=== PATIENT | female | born 1945 | race Caucasian/White ===

== ENCOUNTER → 2023-03-15 | Outpatient (REF) | payer MEDICARE, OTHER, SELFPAY ==
[2023-03-15 09:30] LABS: Hematocrit 38.6 % (37-47); Hemoglobin 13.2 g/dL (12.0-15.0); Mean Corp Hgb Conc 34.2 g/dL (32-36); Mean Corpuscular Hgb 33.5 pg (27.0-32.0); Mean Platelet Vol. 11.1 fl (6.2-12.0); Platelet Count 205 K/mm3 (150-450); RBC Distribution Width CV 13.2 % (11.6-14.6); Red Blood Count 3.94 M/mm3 (4.2-5.4); White Blood Count 6.9 K/mm3 (4.4-11.0)
[2023-03-15 10:20] LABS: Hemoglobin A1c 5.5 % (3.8-5.6)
[2023-03-15 10:37] LABS: Cholesterol 102 mg/dL (200); High Density Lipoprotein 45 mg/dL; Thyroid Stim Hormone (TSH) 2.96 uIU/mL (0.358-3.74); Triglycerides 82 mg/dL; Very Low Density Lipoprotein 16 mg/dL (5-40)
[2023-03-16 11:32] LABS: AST(SGOT) 18 U/L (15-37); Alanine Aminotransfer ALT/SGPT 19 U/L (13-56); Albumin, Serum 3.2 g/dL (3.2-5.0); Alkaline Phosphatase 104 U/L (45-117); Anion Gap 7 (5-15); BUN 26 mg/dL (7-18); Calcium,Total 9.3 mg/dL (8.5-10.1); Chloride 108 mmol/L (98-107); EST Glomerular Filtration Rate 42 mL/min (>60); Est Glom Filt Rate - Afr Amer 51 mL/min (>60); Globulin 3.2 g/dL (2.2-4.2); Glucose 113 mg/dL (74-106); Potassium 4.1 mmol/L (3.5-5.1); Protein, Total 6.4 g/dL (6.4-8.2); Sodium Level 140 mmol/L (136-145)
== END ==
LOC: OLS.SANC 07:55
PROVIDERS: Visit Provider Internal Medicine
DX: E11.9 Type 2 diabetes mellitus without complications (principal); E78.5 Hyperlipidemia, unspecified; E03.9 Hypothyroidism, unspecified; E55.9 Vitamin D deficiency, unspecified
CPT/HCPCS: 36415; 80053; 80061; 82306; 83036; 84443; 85027

== ENCOUNTER → 2023-03-23 | Outpatient (REF) | payer MEDICARE, MEDICAID, SELFPAY ==
[2023-03-23 08:21] LABS: Hematocrit 39.7 % (37-47); Hemoglobin 13.1 g/dL (12.0-15.0); Mean Corpuscular Hgb 33.2 pg (27.0-32.0); Mean Corpuscular Volume 100.8 fL (81-99); Mean Platelet Vol. 10.8 fl (6.2-12.0); Platelet Count 231 K/mm3 (150-450); RBC Distribution Width CV 13.4 % (11.6-14.6); RBC Distribution Width SD 49.6 fl (35.1-43.9); Red Blood Count 3.94 M/mm3 (4.2-5.4); White Blood Count 6.5 K/mm3 (4.4-11.0)
[2023-03-23 08:34] LABS: Vitamin D,25 Hydroxy 71.6 ng/mL
[2023-03-23 09:44] LABS: Hemoglobin A1c 5.6 % (3.8-5.6)
[2023-03-23 10:11] LABS: Cholesterol 126 mg/dL (200); High Density Lipoprotein 48 mg/dL; Thyroid Stim Hormone (TSH) 2.27 uIU/mL (0.358-3.74); Triglycerides 92 mg/dL; Very Low Density Lipoprotein 18 mg/dL (5-40)
== END ==
LOC: OLS.SANC 05:00
PROVIDERS: Visit Provider Internal Medicine
DX: N39.0 Urinary tract infection, site not specified (principal); F03.90 Unspecified dementia, unspecified severity, without behavioral disturbance, psychotic disturbance, mood disturbance, and anxiety; E11.9 Type 2 diabetes mellitus without complications; I10 Essential (primary) hypertension; E55.9 Vitamin D deficiency, unspecified; E03.9 Hypothyroidism, unspecified
CPT/HCPCS: 36415; 80061; 82306; 83036; 84443; 85027

== ENCOUNTER → 2023-03-25 | Outpatient (REF) | payer MEDICARE, OTHER, SELFPAY ==
[2023-03-25 09:07] LABS: Hematocrit 38.3 % (37-47); Hemoglobin 12.8 g/dL (12.0-15.0); Mean Corp Hgb Conc 33.4 g/dL (32-36); Mean Corpuscular Hgb 34.2 pg (27.0-32.0); Mean Corpuscular Volume 102.4 fL (81-99); Mean Platelet Vol. 11.2 fl (6.2-12.0); Platelet Count 211 K/mm3 (150-450); RBC Distribution Width CV 13.7 % (11.6-14.6); RBC Distribution Width SD 51.6 fl (35.1-43.9); Red Blood Count 3.74 M/mm3 (4.2-5.4); White Blood Count 6.3 K/mm3 (4.4-11.0)
[2023-03-25 09:21] LABS: Vitamin D,25 Hydroxy 71.1 ng/mL
[2023-03-25 09:27] LABS: Cholesterol 106 mg/dL (200); High Density Lipoprotein 40 mg/dL; Thyroid Stim Hormone (TSH) 2.32 uIU/mL (0.358-3.74); Triglycerides 85 mg/dL; Very Low Density Lipoprotein 17 mg/dL (5-40)
[2023-03-25 09:49] LABS: Hemoglobin A1c 5.4 % (3.8-5.6)
[2023-03-26 09:34] LABS: Mucous, Urine 0 SEEN /hpf (<or=2+)
[2023-03-26 10:37] LABS: Color, Urine Yellow (Yellow); Glucose, Dipstick Normal (Normal); Ketone-Dipstick Negative (Negative); Leukocyte Esterase-Dipstick 500 /ul (Negative); Nitrite-Dipstick Negative (Negative); Occult Blood-Urine 10 /ul (Negative); Protein-Dipstick Negative (Negative); Specific Gravity, Urine 1.015 (1.002-1.030); Urine Bilirubin Dipstick Negative (Negative); Urine Clarity Sl. Cloudy (Clear); Urine Urobilinogen 4 mg/dl (Normal)
[2023-03-26 10:49] LABS: Bacteria 2+ /hpf (None Seen); Red Blood Cells-Urine 0-5 SEEN /hpf (0-5); Squamous Epithelial Cells - UA 5-10 SEEN /hpf (5-10); Transitional Epithelial - Ur 0-5 SEEN /hpf (0-5); White Blood Cells 25-50 SEEN /hpf (0-5)
== END ==
LOC: OLS.SANC 05:00
PROVIDERS: Visit Provider Internal Medicine
DX: N39.0 Urinary tract infection, site not specified (principal); E11.22 Type 2 diabetes mellitus with diabetic chronic kidney disease; I12.9 Hypertensive chronic kidney disease with stage 1 through stage 4 chronic kidney disease, or unspecified chronic kidney disease; E78.5 Hyperlipidemia, unspecified; N18.30 Chronic kidney disease, stage 3 unspecified; E55.9 Vitamin D deficiency, unspecified; Z79.899 Other long term (current) drug therapy
CPT/HCPCS: 36415; 80061; 81001; 82306; 83036; 84443; 85027; 87077; 87086; 87088; 87186

== ENCOUNTER → 2023-04-12 | Outpatient (REF) | payer MEDICARE, MEDICAID, SELFPAY ==
[2023-04-12 13:33] LABS: Anion Gap 8 (5-15); BUN 26 mg/dL (7-18); BUN/Creat Ratio 14.8 RATIO (10-20); Calcium,Total 9.4 mg/dL (8.5-10.1); Chloride 108 mmol/L (98-107); Creatinine, Serum 1.76 mg/dL (0.55-1.02); EST Glomerular Filtration Rate 30 mL/min (>60); Est Glom Filt Rate - Afr Amer 36 mL/min (>60); Glucose 124 mg/dL (74-106); Potassium 3.9 mmol/L (3.5-5.1); Sodium Level 141 mmol/L (136-145)
== END ==
LOC: OLS.SANC 05:00
PROVIDERS: Visit Provider Internal Medicine
DX: E11.9 Type 2 diabetes mellitus without complications (principal); E78.5 Hyperlipidemia, unspecified; E03.9 Hypothyroidism, unspecified
CPT/HCPCS: 36415; 80048

== ENCOUNTER → 2023-04-21 | Outpatient (REF) | payer MEDICARE, MEDICAID, SELFPAY ==
[2023-04-21 09:17] LABS: Hematocrit 41.7 % (37-47); Hemoglobin 13.9 g/dL (12.0-15.0); Mean Corp Hgb Conc 33.3 g/dL (32-36); Mean Platelet Vol. 11.3 fl (6.2-12.0); Platelet Count 224 K/mm3 (150-450); RBC Distribution Width CV 13.6 % (11.6-14.6); RBC Distribution Width SD 49.3 fl (35.1-43.9); Red Blood Count 4.21 M/mm3 (4.2-5.4); White Blood Count 6.9 K/mm3 (4.4-11.0)
[2023-04-21 09:38] LABS: Anion Gap 7 (5-15); BUN 26 mg/dL (7-18); BUN/Creat Ratio 19.1 RATIO (10-20); Calcium,Total 9.5 mg/dL (8.5-10.1); Chloride 107 mmol/L (98-107); Creatinine, Serum 1.36 mg/dL (0.55-1.02); EST Glomerular Filtration Rate 40 mL/min (>60); Est Glom Filt Rate - Afr Amer 48 mL/min (>60); Glucose 133 mg/dL (74-106); Potassium 3.9 mmol/L (3.5-5.1); Sodium Level 139 mmol/L (136-145)
== END ==
LOC: OLS.SANC 05:00
PROVIDERS: Visit Provider Internal Medicine
DX: E11.9 Type 2 diabetes mellitus without complications (principal); E78.5 Hyperlipidemia, unspecified; E03.9 Hypothyroidism, unspecified
CPT/HCPCS: 36415; 80048; 85027

== ENCOUNTER → 2023-04-22 | Outpatient (REF) | payer MEDICARE, MEDICAID, SELFPAY ==
[2023-04-22 09:34] LABS: Hematocrit 38.3 % (37-47); Hemoglobin 12.7 g/dL (12.0-15.0); Mean Corp Hgb Conc 33.2 g/dL (32-36); Mean Corpuscular Hgb 33.1 pg (27.0-32.0); Mean Corpuscular Volume 99.7 fL (81-99); Mean Platelet Vol. 11.2 fl (6.2-12.0); Platelet Count 223 K/mm3 (150-450); RBC Distribution Width CV 13.8 % (11.6-14.6); RBC Distribution Width SD 50.5 fl (35.1-43.9); Red Blood Count 3.84 M/mm3 (4.2-5.4); White Blood Count 6.3 K/mm3 (4.4-11.0)
[2023-04-22 09:53] LABS: Anion Gap 5 (5-15); BUN 27 mg/dL (7-18); BUN/Creat Ratio 20.1 RATIO (10-20); Chloride 110 mmol/L (98-107); Creatinine, Serum 1.34 mg/dL (0.55-1.02); EST Glomerular Filtration Rate 41 mL/min (>60); Est Glom Filt Rate - Afr Amer 49 mL/min (>60); Glucose 145 mg/dL (74-106); Potassium 3.8 mmol/L (3.5-5.1); Sodium Level 141 mmol/L (136-145)
== END ==
LOC: OLS.SANC 05:00
PROVIDERS: Visit Provider Internal Medicine
DX: Z79.899 Other long term (current) drug therapy (principal)
CPT/HCPCS: 36415; 80048; 85027

== ENCOUNTER → 2023-05-13 | Outpatient (REF) | payer MEDICARE, MEDICAID, SELFPAY ==
[2023-05-13 08:36] LABS: Anion Gap 8 (5-15); BUN 36 mg/dL (7-18); Calcium,Total 9.2 mg/dL (8.5-10.1); Chloride 108 mmol/L (98-107); EST Glomerular Filtration Rate 36 mL/min (>60); Est Glom Filt Rate - Afr Amer 43 mL/min (>60); Glucose 127 mg/dL (74-106); Potassium 3.7 mmol/L (3.5-5.1); Sodium Level 141 mmol/L (136-145)
== END ==
LOC: OLS.SANC 05:00
PROVIDERS: Visit Provider Internal Medicine
DX: E11.9 Type 2 diabetes mellitus without complications (principal); I10 Essential (primary) hypertension; E78.5 Hyperlipidemia, unspecified; E03.9 Hypothyroidism, unspecified
CPT/HCPCS: 36415; 80048

== ENCOUNTER → 2023-05-20 | Outpatient (REF) | payer MEDICARE, MEDICAID, SELFPAY ==
[2023-05-20 08:59] LABS: Hematocrit 43.1 % (37-47); Hemoglobin 14.2 g/dL (12.0-15.0); Mean Corp Hgb Conc 32.9 g/dL (32-36); Mean Corpuscular Hgb 32.3 pg (27.0-32.0); Mean Platelet Vol. 11.2 fl (6.2-12.0); Platelet Count 226 K/mm3 (150-450); RBC Distribution Width CV 13.4 % (11.6-14.6); RBC Distribution Width SD 48.8 fl (35.1-43.9); White Blood Count 6.4 K/mm3 (4.4-11.0)
[2023-05-20 09:11] LABS: Anion Gap 7 (5-15); BUN 31 mg/dL (7-18); BUN/Creat Ratio 20.9 RATIO (10-20); Calcium,Total 9.1 mg/dL (8.5-10.1); Chloride 111 mmol/L (98-107); Creatinine, Serum 1.48 mg/dL (0.55-1.02); EST Glomerular Filtration Rate 36 mL/min (>60); Est Glom Filt Rate - Afr Amer 44 mL/min (>60); Glucose 121 mg/dL (74-106); Sodium Level 144 mmol/L (136-145)
== END ==
LOC: OLS.SANC 05:00
PROVIDERS: Visit Provider Internal Medicine
DX: E11.9 Type 2 diabetes mellitus without complications (principal); Z79.899 Other long term (current) drug therapy
CPT/HCPCS: 36415; 80048; 85027

== ENCOUNTER → 2023-06-02 | Outpatient (REF) | payer MEDICARE, MEDICAID, SELFPAY ==
[2023-06-02 08:58] LABS: Hematocrit 38.8 % (37-47); Mean Corp Hgb Conc 33.5 g/dL (32-36); Mean Corpuscular Hgb 32.7 pg (27.0-32.0); Mean Corpuscular Volume 97.5 fL (81-99); Mean Platelet Vol. 11.1 fl (6.2-12.0); Platelet Count 224 K/mm3 (150-450); RBC Distribution Width CV 13.7 % (11.6-14.6); RBC Distribution Width SD 49.2 fl (35.1-43.9); Red Blood Count 3.98 M/mm3 (4.2-5.4); White Blood Count 5.6 K/mm3 (4.4-11.0)
[2023-06-02 09:18] LABS: Anion Gap 4 (5-15); BUN 23 mg/dL (7-18); BUN/Creat Ratio 16.7 RATIO (10-20); Calcium,Total 8.9 mg/dL (8.5-10.1); Chloride 110 mmol/L (98-107); Creatinine, Serum 1.38 mg/dL (0.55-1.02); EST Glomerular Filtration Rate 39 mL/min (>60); Est Glom Filt Rate - Afr Amer 47 mL/min (>60); Glucose 132 mg/dL (74-106); Potassium 3.6 mmol/L (3.5-5.1); Sodium Level 140 mmol/L (136-145)
== END ==
LOC: OLS.SANC 06:24
PROVIDERS: Visit Provider Internal Medicine
DX: I10 Essential (primary) hypertension (principal); Z79.899 Other long term (current) drug therapy
CPT/HCPCS: 36415; 80048; 85027

== ENCOUNTER → 2023-06-21 | Outpatient (REF) | payer MEDICARE, MEDICAID, SELFPAY ==
[2023-06-21 08:16] LABS: Hematocrit 38.5 % (37-47); Hemoglobin 12.6 g/dL (12.0-15.0); Mean Corp Hgb Conc 32.7 g/dL (32-36); Mean Corpuscular Hgb 32.1 pg (27.0-32.0); Mean Platelet Vol. 11.2 fl (6.2-12.0); Platelet Count 207 K/mm3 (150-450); RBC Distribution Width CV 13.6 % (11.6-14.6); RBC Distribution Width SD 49.9 fl (35.1-43.9); Red Blood Count 3.93 M/mm3 (4.2-5.4); White Blood Count 5.7 K/mm3 (4.4-11.0)
[2023-06-21 10:07] LABS: Anion Gap 8 (5-15); BUN 26 mg/dL (7-18); BUN/Creat Ratio 19.3 RATIO (10-20); Calcium,Total 8.7 mg/dL (8.5-10.1); Chloride 111 mmol/L (98-107); Creatinine, Serum 1.35 mg/dL (0.55-1.02); EST Glomerular Filtration Rate 40 mL/min (>60); Est Glom Filt Rate - Afr Amer 49 mL/min (>60); Glucose 124 mg/dL (74-106); Sodium Level 142 mmol/L (136-145)
== END ==
LOC: OLS.SANC 05:00
PROVIDERS: Visit Provider Internal Medicine
DX: E11.22 Type 2 diabetes mellitus with diabetic chronic kidney disease (principal); I12.9 Hypertensive chronic kidney disease with stage 1 through stage 4 chronic kidney disease, or unspecified chronic kidney disease; N18.9 Chronic kidney disease, unspecified; E78.5 Hyperlipidemia, unspecified; E03.9 Hypothyroidism, unspecified
CPT/HCPCS: 36415; 80048; 85027

== ENCOUNTER → 2023-06-29 | Outpatient (REF) | payer MEDICARE, MEDICAID, SELFPAY ==
[2023-06-29 08:13] LABS: Hematocrit 41.5 % (37-47); Hemoglobin 13.7 g/dL (12.0-15.0); Mean Corpuscular Hgb 32.3 pg (27.0-32.0); Mean Corpuscular Volume 97.9 fL (81-99); Mean Platelet Vol. 11.4 fl (6.2-12.0); Platelet Count 215 K/mm3 (150-450); RBC Distribution Width CV 13.7 % (11.6-14.6); RBC Distribution Width SD 49.7 fl (35.1-43.9); Red Blood Count 4.24 M/mm3 (4.2-5.4); White Blood Count 6.8 K/mm3 (4.4-11.0)
[2023-06-29 08:19] LABS: Anion Gap 4 (5-15); BUN 32 mg/dL (7-18); BUN/Creat Ratio 22.7 RATIO (10-20); Calcium,Total 9.3 mg/dL (8.5-10.1); Chloride 110 mmol/L (98-107); Creatinine, Serum 1.41 mg/dL (0.55-1.02); EST Glomerular Filtration Rate 38 mL/min (>60); Est Glom Filt Rate - Afr Amer 46 mL/min (>60); Glucose 141 mg/dL (74-106); Potassium 3.9 mmol/L (3.5-5.1); Sodium Level 141 mmol/L (136-145)
== END ==
LOC: OLS.SANC 05:00
PROVIDERS: Visit Provider Internal Medicine
DX: E11.9 Type 2 diabetes mellitus without complications (principal); E78.5 Hyperlipidemia, unspecified; I10 Essential (primary) hypertension
CPT/HCPCS: 36415; 80048; 85027

== ENCOUNTER → 2023-07-13 | Outpatient (REF) | payer MEDICARE, MEDICAID, SELFPAY ==
[2023-07-13 09:10] LABS: Anion Gap 5 (5-15); BUN 27 mg/dL (7-18); BUN/Creat Ratio 19.7 RATIO (10-20); Calcium,Total 9.7 mg/dL (8.5-10.1); Chloride 110 mmol/L (98-107); Creatinine, Serum 1.37 mg/dL (0.55-1.02); EST Glomerular Filtration Rate 40 mL/min (>60); Est Glom Filt Rate - Afr Amer 48 mL/min (>60); Glucose 134 mg/dL (74-106); Sodium Level 141 mmol/L (136-145)
== END ==
LOC: OLS.SANC 05:00
PROVIDERS: Visit Provider Internal Medicine
DX: F03.90 Unspecified dementia, unspecified severity, without behavioral disturbance, psychotic disturbance, mood disturbance, and anxiety (principal); E11.9 Type 2 diabetes mellitus without complications; Z79.899 Other long term (current) drug therapy
CPT/HCPCS: 36415; 80048

== ENCOUNTER → 2023-08-02 | Outpatient (REF) | payer MEDICARE, MEDICAID, SELFPAY ==
[2023-08-02 09:50] LABS: Hematocrit 37.5 % (37-47); Hemoglobin 12.3 g/dL (12.0-15.0); Mean Corp Hgb Conc 32.8 g/dL (32-36); Mean Corpuscular Volume 97.7 fL (81-99); Platelet Count 217 K/mm3 (150-450); RBC Distribution Width CV 13.5 % (11.6-14.6); RBC Distribution Width SD 48.5 fl (35.1-43.9); Red Blood Count 3.84 M/mm3 (4.2-5.4); White Blood Count 5.1 K/mm3 (4.4-11.0)
[2023-08-02 10:01] LABS: Anion Gap 4 (5-15); BUN 26 mg/dL (7-18); BUN/Creat Ratio 17.9 RATIO (10-20); Calcium,Total 9.1 mg/dL (8.5-10.1); Chloride 112 mmol/L (98-107); Creatinine, Serum 1.45 mg/dL (0.55-1.02); EST Glomerular Filtration Rate 37 mL/min (>60); Est Glom Filt Rate - Afr Amer 45 mL/min (>60); Glucose 126 mg/dL (74-106); Potassium 3.7 mmol/L (3.5-5.1); Sodium Level 141 mmol/L (136-145)
== END ==
LOC: OLS.SANC 05:00
PROVIDERS: Visit Provider Internal Medicine
DX: E11.9 Type 2 diabetes mellitus without complications (principal); I10 Essential (primary) hypertension; E78.5 Hyperlipidemia, unspecified; E03.9 Hypothyroidism, unspecified
CPT/HCPCS: 36415; 80048; 85027

== ENCOUNTER → 2023-08-13 | Outpatient (REF) | payer MEDICARE, MEDICAID, SELFPAY ==
[2023-08-13 07:56] LABS: Hematocrit 40.4 % (37-47); Hemoglobin 13.2 g/dL (12.0-15.0); Mean Corp Hgb Conc 32.7 g/dL (32-36); Mean Corpuscular Hgb 32.2 pg (27.0-32.0); Mean Corpuscular Volume 98.5 fL (81-99); Platelet Count 230 K/mm3 (150-450); RBC Distribution Width CV 13.3 % (11.6-14.6); RBC Distribution Width SD 48.2 fl (35.1-43.9); White Blood Count 6.3 K/mm3 (4.4-11.0)
[2023-08-13 08:02] LABS: Anion Gap 4 (5-15); BUN 34 mg/dL (7-18); BUN/Creat Ratio 22.4 RATIO (10-20); Calcium,Total 8.9 mg/dL (8.5-10.1); Chloride 108 mmol/L (98-107); Creatinine, Serum 1.52 mg/dL (0.55-1.02); EST Glomerular Filtration Rate 35 mL/min (>60); Est Glom Filt Rate - Afr Amer 43 mL/min (>60); Glucose 122 mg/dL (74-106); Potassium 3.6 mmol/L (3.5-5.1); Sodium Level 141 mmol/L (136-145)
== END ==
LOC: OLS.SANC 05:00
PROVIDERS: Visit Provider Internal Medicine
DX: E11.9 Type 2 diabetes mellitus without complications (principal); E78.5 Hyperlipidemia, unspecified
CPT/HCPCS: 36415; 80048; 85027

== ENCOUNTER → 2023-09-10 | Outpatient (REF) | payer MEDICARE, MEDICAID, SELFPAY ==
[2023-09-10 09:26] LABS: Hematocrit 39.2 % (37-47); Hemoglobin 13.4 g/dL (12.0-15.0); Mean Corp Hgb Conc 34.2 g/dL (32-36); Mean Corpuscular Hgb 32.9 pg (27.0-32.0); Mean Corpuscular Volume 96.3 fL (81-99); Mean Platelet Vol. 10.8 fl (6.2-12.0); Platelet Count 219 K/mm3 (150-450); RBC Distribution Width CV 12.9 % (11.6-14.6); RBC Distribution Width SD 46.3 fl (35.1-43.9); Red Blood Count 4.07 M/mm3 (4.2-5.4); White Blood Count 5.3 K/mm3 (4.4-11.0)
[2023-09-10 09:41] LABS: Anion Gap 7 (5-15); BUN 32 mg/dL (7-18); BUN/Creat Ratio 23.4 RATIO (10-20); Calcium,Total 9.4 mg/dL (8.5-10.1); Chloride 107 mmol/L (98-107); Creatinine, Serum 1.37 mg/dL (0.55-1.02); EST Glomerular Filtration Rate 40 mL/min (>60); Est Glom Filt Rate - Afr Amer 48 mL/min (>60); Glucose 166 mg/dL (74-106); Potassium 3.7 mmol/L (3.5-5.1); Sodium Level 140 mmol/L (136-145)
== END ==
LOC: OLS.SANC 05:00
PROVIDERS: Visit Provider Internal Medicine
DX: E11.9 Type 2 diabetes mellitus without complications (principal); I10 Essential (primary) hypertension; E03.9 Hypothyroidism, unspecified
CPT/HCPCS: 36415; 80048; 85027

== ENCOUNTER → 2023-09-13 | Outpatient (REF) | payer MEDICARE, MEDICAID, SELFPAY ==
[2023-09-13 09:20] LABS: Hematocrit 37.8 % (37-47); Hemoglobin 12.6 g/dL (12.0-15.0); Mean Corp Hgb Conc 33.3 g/dL (32-36); Mean Corpuscular Hgb 32.4 pg (27.0-32.0); Mean Corpuscular Volume 97.2 fL (81-99); Platelet Count 214 K/mm3 (150-450); RBC Distribution Width CV 13.1 % (11.6-14.6); RBC Distribution Width SD 46.4 fl (35.1-43.9); Red Blood Count 3.89 M/mm3 (4.2-5.4); White Blood Count 5.9 K/mm3 (4.4-11.0)
[2023-09-13 09:31] LABS: Vitamin D,25 Hydroxy 46.6 ng/mL
[2023-09-13 10:27] LABS: Anion Gap 8 (5-15); BUN 31 mg/dL (7-18); BUN/Creat Ratio 23.3 RATIO (10-20); Calcium,Total 9.3 mg/dL (8.5-10.1); Chloride 109 mmol/L (98-107); Cholesterol 132 mg/dL (200); Creatinine, Serum 1.33 mg/dL (0.55-1.02); EST Glomerular Filtration Rate 41 mL/min (>60); Est Glom Filt Rate - Afr Amer 50 mL/min (>60); Glucose 113 mg/dL (74-106); High Density Lipoprotein 48 mg/dL; Sodium Level 142 mmol/L (136-145); Thyroid Stim Hormone (TSH) 3.12 uIU/mL (0.358-3.74); Triglycerides 76 mg/dL; Very Low Density Lipoprotein 15 mg/dL (5-40)
[2023-09-13 10:52] LABS: Hemoglobin A1c 5.5 % (3.8-5.6)
== END ==
LOC: OLS.SANC 05:00
PROVIDERS: Visit Provider Internal Medicine
DX: E55.9 Vitamin D deficiency, unspecified (principal); E11.9 Type 2 diabetes mellitus without complications; I10 Essential (primary) hypertension; E78.5 Hyperlipidemia, unspecified; E03.9 Hypothyroidism, unspecified
CPT/HCPCS: 36415; 80048; 80061; 82306; 83036; 84443; 85027

== ENCOUNTER → 2023-09-23 | Outpatient (REF) | payer MEDICARE, MEDICAID, SELFPAY ==
[2023-09-23 09:24] LABS: Hemoglobin 12.3 g/dL (12.0-15.0); Mean Corp Hgb Conc 32.4 g/dL (32-36); Mean Corpuscular Hgb 31.7 pg (27.0-32.0); Mean Corpuscular Volume 97.9 fL (81-99); Platelet Count 214 K/mm3 (150-450); RBC Distribution Width SD 46.3 fl (35.1-43.9); Red Blood Count 3.88 M/mm3 (4.2-5.4); White Blood Count 5.7 K/mm3 (4.4-11.0)
[2023-09-23 10:35] LABS: AST(SGOT) 17 U/L (15-37); Alanine Aminotransfer ALT/SGPT 15 U/L (13-56); Alkaline Phosphatase 102 U/L (45-117); Anion Gap 6 (5-15); BUN 35 mg/dL (7-18); BUN/Creat Ratio 25.7 RATIO (10-20); Calcium,Total 8.8 mg/dL (8.5-10.1); Chloride 107 mmol/L (98-107); Cholesterol 120 mg/dL (200); Creatinine, Serum 1.36 mg/dL (0.55-1.02); EST Glomerular Filtration Rate 40 mL/min (>60); Est Glom Filt Rate - Afr Amer 48 mL/min (>60); Globulin 3.1 g/dL (2.2-4.2); Glucose 114 mg/dL (74-106); High Density Lipoprotein 45 mg/dL; Potassium 3.8 mmol/L (3.5-5.1); Protein, Total 6.1 g/dL (6.4-8.2); Sodium Level 140 mmol/L (136-145); Triglycerides 106 mg/dL; Very Low Density Lipoprotein 21 mg/dL (5-40)
== END ==
LOC: OLS.SANC 05:00
PROVIDERS: Visit Provider Internal Medicine
DX: F03.90 Unspecified dementia, unspecified severity, without behavioral disturbance, psychotic disturbance, mood disturbance, and anxiety (principal); I10 Essential (primary) hypertension; E03.9 Hypothyroidism, unspecified; Z79.899 Other long term (current) drug therapy
CPT/HCPCS: 36415; 80053; 80061; 84443; 85027

== ENCOUNTER → 2023-10-12 05:00 | Outpatient (REF) | payer MEDICARE, MEDICAID, SELFPAY ==
[2023-10-12 13:48] LABS: Anion Gap 5 (5-15); BUN 34 mg/dL (7-18); BUN/Creat Ratio 25.6 RATIO (10-20); Calcium,Total 9.2 mg/dL (8.5-10.1); Chloride 109 mmol/L (98-107); Creatinine, Serum 1.33 mg/dL (0.55-1.02); EST Glomerular Filtration Rate 41 mL/min (>60); Est Glom Filt Rate - Afr Amer 50 mL/min (>60); Glucose 118 mg/dL (74-106); Potassium 3.8 mmol/L (3.5-5.1); Sodium Level 140 mmol/L (136-145)
== END ==
LOC: OLS.SANC 05:00
PROVIDERS: Visit Provider Internal Medicine
DX: I10 Essential (primary) hypertension (principal); E78.5 Hyperlipidemia, unspecified; E03.9 Hypothyroidism, unspecified; E11.9 Type 2 diabetes mellitus without complications
CPT/HCPCS: 36415; 80048

== ENCOUNTER → 2023-11-04 | Outpatient (REF) | payer MEDICARE, MEDICAID, SELFPAY ==
[2023-11-04 08:40] LABS: Anion Gap 7 (5-15); BUN 28 mg/dL (7-18); Calcium,Total 9.1 mg/dL (8.5-10.1); Chloride 105 mmol/L (98-107); Creatinine, Serum 1.27 mg/dL (0.55-1.02); EST Glomerular Filtration Rate 43 mL/min (>60); Est Glom Filt Rate - Afr Amer 52 mL/min (>60); Glucose 129 mg/dL (74-106); Potassium 4.1 mmol/L (3.5-5.1); Sodium Level 140 mmol/L (136-145)
== END ==
LOC: OLS.SANC 04:00
PROVIDERS: Referring Provider Internal Medicine; Visit Provider Internal Medicine
DX: E11.9 Type 2 diabetes mellitus without complications (principal); I10 Essential (primary) hypertension; E78.5 Hyperlipidemia, unspecified; E03.9 Hypothyroidism, unspecified
CPT/HCPCS: 36415; 80048

== ENCOUNTER → 2023-11-11 05:00 | Outpatient (REF) | payer MEDICARE, MEDICAID, SELFPAY ==
[2023-11-11 08:13] LABS: Hematocrit 33.6 % (37-47); Mean Corp Hgb Conc 32.7 g/dL (32-36); Mean Corpuscular Hgb 32.2 pg (27.0-32.0); Mean Corpuscular Volume 98.2 fL (81-99); Mean Platelet Vol. 10.8 fl (6.2-12.0); Platelet Count 254 K/mm3 (150-450); RBC Distribution Width CV 13.3 % (11.6-14.6); RBC Distribution Width SD 46.9 fl (35.1-43.9); Red Blood Count 3.42 M/mm3 (4.2-5.4); White Blood Count 5.7 K/mm3 (4.4-11.0)
[2023-11-11 08:53] LABS: Anion Gap 5 (5-15); BUN 26 mg/dL (7-18); BUN/Creat Ratio 19.8 RATIO (10-20); Calcium,Total 9.1 mg/dL (8.5-10.1); Chloride 107 mmol/L (98-107); Creatinine, Serum 1.31 mg/dL (0.55-1.02); EST Glomerular Filtration Rate 42 mL/min (>60); Est Glom Filt Rate - Afr Amer 51 mL/min (>60); Glucose 119 mg/dL (74-106); Potassium 3.9 mmol/L (3.5-5.1); Sodium Level 140 mmol/L (136-145)
== END ==
LOC: OLS.SANC 05:00
PROVIDERS: Visit Provider Internal Medicine
DX: I10 Essential (primary) hypertension (principal); E11.9 Type 2 diabetes mellitus without complications; E78.5 Hyperlipidemia, unspecified; E03.9 Hypothyroidism, unspecified
CPT/HCPCS: 36415; 80048; 85027

== ENCOUNTER → 2023-12-16 08:05 | Outpatient (REF) | payer MEDICARE, MEDICAID, SELFPAY ==
[2023-12-16 09:43] LABS: Hematocrit 38.9 % (37-47); Hemoglobin 12.7 g/dL (12.0-15.0); Mean Corp Hgb Conc 32.6 g/dL (32-36); Mean Corpuscular Hgb 31.3 pg (27.0-32.0); Mean Corpuscular Volume 95.8 fL (81-99); Mean Platelet Vol. 11.1 fl (6.2-12.0); Platelet Count 239 K/mm3 (150-450); RBC Distribution Width CV 13.2 % (11.6-14.6); RBC Distribution Width SD 47.2 fl (35.1-43.9); Red Blood Count 4.06 M/mm3 (4.2-5.4); White Blood Count 6.2 K/mm3 (4.4-11.0)
[2023-12-16 10:41] LABS: Anion Gap 6 (5-15); BUN 26 mg/dL (7-18); BUN/Creat Ratio 24.3 RATIO (10-20); Calcium,Total 9.7 mg/dL (8.5-10.1); Chloride 108 mmol/L (98-107); Creatinine, Serum 1.07 mg/dL (0.55-1.02); EST Glomerular Filtration Rate 53 mL/min (>60); Est Glom Filt Rate - Afr Amer 64 mL/min (>60); Glucose 133 mg/dL (74-106); Potassium 3.6 mmol/L (3.5-5.1); Sodium Level 142 mmol/L (136-145)
== END ==
LOC: OLS.SANC 08:05
PROVIDERS: Visit Provider Internal Medicine
DX: F03.90 Unspecified dementia, unspecified severity, without behavioral disturbance, psychotic disturbance, mood disturbance, and anxiety (principal); E11.9 Type 2 diabetes mellitus without complications; E78.5 Hyperlipidemia, unspecified; E03.9 Hypothyroidism, unspecified
CPT/HCPCS: 36415; 80048; 85027

== ENCOUNTER → 2024-01-11 05:00 | Outpatient (REF) | payer MEDICARE, MEDICAID, SELFPAY ==
[2024-01-11 09:46] LABS: Anion Gap 4 (5-15); BUN 26 mg/dL (7-18); BUN/Creat Ratio 18.3 RATIO (10-20); Calcium,Total 9.5 mg/dL (8.5-10.1); Chloride 105 mmol/L (98-107); Creatinine, Serum 1.42 mg/dL (0.55-1.02); EST Glomerular Filtration Rate 38 mL/min (>60); Est Glom Filt Rate - Afr Amer 46 mL/min (>60); Glucose 152 mg/dL (74-106); Potassium 3.9 mmol/L (3.5-5.1); Sodium Level 139 mmol/L (136-145)
== END ==
LOC: OLS.SANC 05:00
PROVIDERS: Referring Provider Internal Medicine; Visit Provider Internal Medicine
DX: I10 Essential (primary) hypertension (principal); E78.5 Hyperlipidemia, unspecified; E03.9 Hypothyroidism, unspecified; E11.9 Type 2 diabetes mellitus without complications
CPT/HCPCS: 36415; 80048

== ENCOUNTER → 2024-01-25 | Outpatient (REF) | payer MEDICARE, MEDICAID, SELFPAY ==
[2024-01-25 09:50] LABS: Hematocrit 37.9 % (37-47); Hemoglobin 12.6 g/dL (12.0-15.0); Mean Corp Hgb Conc 33.2 g/dL (32-36); Mean Corpuscular Hgb 31.8 pg (27.0-32.0); Mean Corpuscular Volume 95.7 fL (81-99); Platelet Count 210 K/mm3 (150-450); RBC Distribution Width CV 13.5 % (11.6-14.6); RBC Distribution Width SD 47.6 fl (35.1-43.9); Red Blood Count 3.96 M/mm3 (4.2-5.4); White Blood Count 5.6 K/mm3 (4.4-11.0)
[2024-01-25 10:03] LABS: Anion Gap 6 (5-15); BUN 27 mg/dL (7-18); BUN/Creat Ratio 19.1 RATIO (10-20); Calcium,Total 8.7 mg/dL (8.5-10.1); Chloride 106 mmol/L (98-107); Creatinine, Serum 1.41 mg/dL (0.55-1.02); EST Glomerular Filtration Rate 38 mL/min (>60); Est Glom Filt Rate - Afr Amer 46 mL/min (>60); Glucose 114 mg/dL (74-106); Potassium 3.8 mmol/L (3.5-5.1); Sodium Level 139 mmol/L (136-145)
== END ==
LOC: OLS.SANC 05:00
PROVIDERS: Referring Provider Internal Medicine; Visit Provider Internal Medicine
DX: E11.9 Type 2 diabetes mellitus without complications (principal); E78.5 Hyperlipidemia, unspecified; E03.9 Hypothyroidism, unspecified; I10 Essential (primary) hypertension
CPT/HCPCS: 36415; 80048; 85027

== ENCOUNTER → 2024-02-11 | Outpatient (REF) | payer MEDICARE, MEDICAID, SELFPAY ==
[2024-02-11 09:02] LABS: Anion Gap 6 (5-15); BUN 38 mg/dL (7-18); BUN/Creat Ratio 28.6 RATIO (10-20); Calcium,Total 8.9 mg/dL (8.5-10.1); Chloride 109 mmol/L (98-107); Creatinine, Serum 1.33 mg/dL (0.55-1.02); EST Glomerular Filtration Rate 41 mL/min (>60); Est Glom Filt Rate - Afr Amer 50 mL/min (>60); Glucose 107 mg/dL (74-106); Potassium 3.9 mmol/L (3.5-5.1); Sodium Level 140 mmol/L (136-145)
== END ==
LOC: OLS.SANC 05:00
PROVIDERS: Visit Provider Internal Medicine
DX: E11.22 Type 2 diabetes mellitus with diabetic chronic kidney disease (principal); N18.30 Chronic kidney disease, stage 3 unspecified; I12.9 Hypertensive chronic kidney disease with stage 1 through stage 4 chronic kidney disease, or unspecified chronic kidney disease; E78.5 Hyperlipidemia, unspecified; E03.9 Hypothyroidism, unspecified
CPT/HCPCS: 36415; 80048

== ENCOUNTER → 2024-03-13 | Outpatient (REF) | payer MEDICARE, MEDICAID, SELFPAY ==
[2024-03-13 10:58] LABS: Hematocrit 41.2 % (37-47); Hemoglobin 13.1 g/dL (12.0-15.0); Mean Corp Hgb Conc 31.8 g/dL (32-36); Mean Corpuscular Hgb 32.3 pg (27.0-32.0); Mean Corpuscular Volume 101.7 fL (81-99); Mean Platelet Vol. 10.8 fl (6.2-12.0); Platelet Count 209 K/mm3 (150-450); RBC Distribution Width CV 13.3 % (11.6-14.6); RBC Distribution Width SD 50.5 fl (35.1-43.9); Red Blood Count 4.05 M/mm3 (4.2-5.4); White Blood Count 6.2 K/mm3 (4.4-11.0)
[2024-03-13 11:03] LABS: Anion Gap 7 (5-15); BUN 31 mg/dL (7-18); BUN/Creat Ratio 25.4 RATIO (10-20); Chloride 108 mmol/L (98-107); Creatinine, Serum 1.22 mg/dL (0.55-1.02); EST Glomerular Filtration Rate 45 mL/min (>60); Est Glom Filt Rate - Afr Amer 55 mL/min (>60); Glucose 120 mg/dL (74-106); Potassium 3.7 mmol/L (3.5-5.1); Sodium Level 137 mmol/L (136-145)
== END ==
LOC: OLS.SANC 05:00
PROVIDERS: Visit Provider Internal Medicine
DX: E11.9 Type 2 diabetes mellitus without complications (principal); I10 Essential (primary) hypertension; E78.5 Hyperlipidemia, unspecified; E03.9 Hypothyroidism, unspecified
CPT/HCPCS: 36415; 80048; 85027

== ENCOUNTER → 2024-03-15 | Outpatient (REF) | payer MEDICARE, MEDICAID, SELFPAY ==
[2024-03-15 09:47] LABS: Mucous, Urine 0 SEEN /hpf (<or=2+); Red Blood Cells-Urine 0 SEEN /hpf (0-5)
[2024-03-15 09:57] LABS: Color, Urine Yellow (Yellow); Glucose, Dipstick Normal (Normal); Ketone-Dipstick Negative (Negative); Leukocyte Esterase-Dipstick 500 /ul (Negative); Nitrite-Dipstick Positive (Negative); Occult Blood-Urine 10 /ul (Negative); Protein-Dipstick 15 mg/dl (Negative); Specific Gravity, Urine 1.015 (1.002-1.030); Urine Bilirubin Dipstick Negative (Negative); Urine Clarity Sl. Cloudy (Clear); Urine Urobilinogen Normal (Normal)
[2024-03-15 10:14] LABS: Bacteria 2+ /hpf (None Seen); Squamous Epithelial Cells - UA 0-5 SEEN /hpf (5-10)
[2024-03-15 10:15] LABS: White Blood Cells 25-50 SEEN /hpf (0-5)
== END ==
LOC: OLS.SANC 04:30
PROVIDERS: Visit Provider Internal Medicine
DX: R39.9 Unspecified symptoms and signs involving the genitourinary system (principal); Z87.440 Personal history of urinary (tract) infections
CPT/HCPCS: 81001; 87077; 87086; 87088; 87186

== ENCOUNTER → 2024-03-17 | Outpatient (REF) | payer MEDICARE, MEDICAID, SELFPAY ==
[2024-03-17 08:45] LABS: Hematocrit 37.9 % (37-47); Hemoglobin 12.5 g/dL (12.0-15.0); Mean Corpuscular Hgb 31.6 pg (27.0-32.0); Mean Corpuscular Volume 95.7 fL (81-99); Mean Platelet Vol. 10.9 fl (6.2-12.0); Platelet Count 225 K/mm3 (150-450); RBC Distribution Width CV 13.3 % (11.6-14.6); RBC Distribution Width SD 47.2 fl (35.1-43.9); Red Blood Count 3.96 M/mm3 (4.2-5.4); White Blood Count 6.6 K/mm3 (4.4-11.0)
[2024-03-17 08:52] LABS: Scan Indicated on CBC? Y/N NO
[2024-03-17 09:17] LABS: Anion Gap 7 (5-15); BUN 29 mg/dL (7-18); BUN/Creat Ratio 22.5 RATIO (10-20); Calcium,Total 9.3 mg/dL (8.5-10.1); Chloride 107 mmol/L (98-107); Creatinine, Serum 1.29 mg/dL (0.55-1.02); EST Glomerular Filtration Rate 43 mL/min (>60); Est Glom Filt Rate - Afr Amer 51 mL/min (>60); Glucose 125 mg/dL (74-106); Potassium 3.8 mmol/L (3.5-5.1); Sodium Level 139 mmol/L (136-145)
== END ==
LOC: OLS.SANC 05:00
PROVIDERS: Visit Provider Internal Medicine
DX: F03.90 Unspecified dementia, unspecified severity, without behavioral disturbance, psychotic disturbance, mood disturbance, and anxiety (principal); E11.9 Type 2 diabetes mellitus without complications; I10 Essential (primary) hypertension; E78.5 Hyperlipidemia, unspecified
CPT/HCPCS: 36415; 80048; 85027

== ENCOUNTER → 2024-03-27 | Outpatient (REF) | payer MEDICARE, MEDICAID, SELFPAY ==
[2024-03-27 09:07] LABS: Cholesterol 122 mg/dL (200); High Density Lipoprotein 42 mg/dL; Triglycerides 126 mg/dL; Very Low Density Lipoprotein 25 mg/dL (5-40)
[2024-03-27 09:19] LABS: Hemoglobin A1c 5.4 % (3.8-5.6)
== END ==
LOC: OLS.SANC 05:00
PROVIDERS: Visit Provider Internal Medicine
DX: E11.9 Type 2 diabetes mellitus without complications (principal); E55.9 Vitamin D deficiency, unspecified; E78.5 Hyperlipidemia, unspecified; E03.9 Hypothyroidism, unspecified
CPT/HCPCS: 36415; 80061; 82306; 83036; 84443

== ENCOUNTER → 2024-06-12 05:00 | Outpatient (REF) | payer MEDICARE, MEDICAID, SELFPAY ==
[2024-06-12 08:37] LABS: Hemoglobin 13.2 g/dL (12.0-15.0); Mean Corpuscular Hgb 31.8 pg (27.0-32.0); Mean Corpuscular Volume 96.4 fL (81-99); Mean Platelet Vol. 11.7 fl (6.2-12.0); Platelet Count 225 K/mm3 (150-450); RBC Distribution Width CV 13.2 % (11.6-14.6); RBC Distribution Width SD 46.8 fl (35.1-43.9); Red Blood Count 4.15 M/mm3 (4.2-5.4); White Blood Count 8.1 K/mm3 (4.4-11.0)
[2024-06-12 08:52] LABS: Anion Gap 4 (5-15); BUN 49 mg/dL (7-18); Chloride 108 mmol/L (98-107); EST Glomerular Filtration Rate 39 mL/min (>60); Est Glom Filt Rate - Afr Amer 47 mL/min (>60); Glucose 136 mg/dL (74-106); Potassium 3.8 mmol/L (3.5-5.1); Sodium Level 140 mmol/L (136-145)
== END ==
LOC: OLS.SANC 05:00
PROVIDERS: Visit Provider Internal Medicine
DX: I10 Essential (primary) hypertension (principal); E78.5 Hyperlipidemia, unspecified; E03.9 Hypothyroidism, unspecified; E11.22 Type 2 diabetes mellitus with diabetic chronic kidney disease; N18.30 Chronic kidney disease, stage 3 unspecified; Z79.899 Other long term (current) drug therapy
CPT/HCPCS: 36415; 80048; 85027

== ENCOUNTER → 2024-07-13 | Outpatient (REF) | payer MEDICARE, MEDICAID, SELFPAY ==
[2024-07-13 09:36] LABS: Hematocrit 38.5 % (37-47); Hemoglobin 12.6 g/dL (12.0-15.0); Mean Corp Hgb Conc 32.7 g/dL (32-36); Mean Corpuscular Hgb 31.1 pg (27.0-32.0); Mean Corpuscular Volume 95.1 fL (81-99); Mean Platelet Vol. 11.1 fl (6.2-12.0); Platelet Count 220 K/mm3 (150-450); RBC Distribution Width CV 13.8 % (11.6-14.6); Red Blood Count 4.05 M/mm3 (4.2-5.4); White Blood Count 6.8 K/mm3 (4.4-11.0)
[2024-07-13 09:47] LABS: Anion Gap 5 (5-15); BUN 35 mg/dL (7-18); BUN/Creat Ratio 25.5 RATIO (10-20); Calcium,Total 8.9 mg/dL (8.5-10.1); Chloride 109 mmol/L (98-107); Creatinine, Serum 1.37 mg/dL (0.55-1.02); EST Glomerular Filtration Rate 40 mL/min (>60); Est Glom Filt Rate - Afr Amer 48 mL/min (>60); Glucose 133 mg/dL (74-106); Potassium 3.9 mmol/L (3.5-5.1); Sodium Level 142 mmol/L (136-145)
== END ==
LOC: OLS.SANC 05:00
PROVIDERS: Visit Provider Internal Medicine
DX: E11.9 Type 2 diabetes mellitus without complications (principal); E03.9 Hypothyroidism, unspecified; I10 Essential (primary) hypertension
CPT/HCPCS: 36415; 80048; 85027

== ENCOUNTER → 2024-07-31 | Outpatient (REF) | payer MEDICARE, MEDICAID, SELFPAY ==
[2024-08-01 09:37] LABS: Mucous, Urine 0 SEEN /hpf (<or=2+); Squamous Epithelial Cells - UA 0 SEEN /hpf (5-10)
[2024-08-01 10:07] LABS: Color, Urine Straw (Yellow); Glucose, Dipstick Normal (Normal); Ketone-Dipstick Negative (Negative); Leukocyte Esterase-Dipstick 500 /ul (Negative); Nitrite-Dipstick Negative (Negative); Occult Blood-Urine 50 /ul (Negative); Protein-Dipstick Negative (Negative); Specific Gravity, Urine 1.005 (1.002-1.030); Urine Bilirubin Dipstick Negative (Negative); Urine Clarity Clear (Clear); Urine Urobilinogen Normal (Normal)
[2024-08-01 10:50] LABS: White Blood Cells 0-5 SEEN /hpf (0-5)
[2024-08-01 10:51] LABS: Bacteria 2+ /hpf (None Seen); Red Blood Cells-Urine 0-5 SEEN /hpf (0-5)
== END ==
LOC: OLS.SANC 13:53
PROVIDERS: Referring Provider Internal Medicine; Visit Provider Internal Medicine
DX: R39.9 Unspecified symptoms and signs involving the genitourinary system (principal); R41.82 Altered mental status, unspecified
CPT/HCPCS: 81001; 87077; 87086; 87088; 87186

== ENCOUNTER → 2024-08-21 | Outpatient (REF) | payer MEDICARE, MEDICAID, SELFPAY ==
[2024-08-21 09:29] LABS: Erythrocyte Sedimentation Rate 8 mm/hr (0-30)
[2024-08-21 09:34] LABS: Hematocrit 37.2 % (37-47); Hemoglobin 12.7 g/dL (12.0-15.0); Mean Corp Hgb Conc 34.1 g/dL (32-36); Mean Corpuscular Hgb 32.5 pg (27.0-32.0); Mean Corpuscular Volume 95.1 fL (81-99); Mean Platelet Vol. 11.1 fl (6.2-12.0); Platelet Count 239 K/mm3 (150-450); RBC Distribution Width CV 13.6 % (11.6-14.6); RBC Distribution Width SD 47.3 fl (35.1-43.9); Red Blood Count 3.91 M/mm3 (4.2-5.4)
[2024-08-21 09:54] LABS: Vitamin B12 278 pg/mL (211-911)
[2024-08-21 17:50] LABS: AST(SGOT) 20 U/L (15-37); Alanine Aminotransfer ALT/SGPT 13 U/L (13-56); Alkaline Phosphatase 102 U/L (45-117); Anion Gap 7 (5-15); BUN 31 mg/dL (7-18); BUN/Creat Ratio 25.8 RATIO (10-20); CRP < 2.90 mg/L (0.0-3.0); Calcium,Total 8.7 mg/dL (8.5-10.1); Chloride 110 mmol/L (98-107); EST Glomerular Filtration Rate 46 mL/min (>60); Est Glom Filt Rate - Afr Amer 56 mL/min (>60); Globulin 3.1 g/dL (2.2-4.2); Glucose 129 mg/dL (74-106); Potassium 4.4 mmol/L (3.5-5.1); Protein, Total 6.1 g/dL (6.4-8.2); Sodium Level 138 mmol/L (136-145)
== END ==
LOC: OLS.SANC 05:00
PROVIDERS: Visit Provider Internal Medicine
DX: Z79.899 Other long term (current) drug therapy (principal)
CPT/HCPCS: 36415; 80053; 82607; 84443; 85027; 85652; 86140

== ENCOUNTER → 2024-08-27 | Outpatient (REF) | payer MEDICARE, MEDICAID, SELFPAY ==
[2024-08-28 09:49] LABS: Color, Urine Straw (Yellow); Glucose, Dipstick Normal (Normal); Ketone-Dipstick Negative (Negative); Leukocyte Esterase-Dipstick Negative /ul (Negative); Nitrite-Dipstick Negative (Negative); Occult Blood-Urine 10 /ul (Negative); Protein-Dipstick Negative (Negative); Urine Bilirubin Dipstick Negative (Negative); Urine Clarity Clear (Clear); Urine Urobilinogen Normal (Normal)
== END ==
LOC: OLS.SANC 00:53
DX: R39.9 Unspecified symptoms and signs involving the genitourinary system (principal)
CPT/HCPCS: 81002; 87077; 87086; 87088; 87186

== ENCOUNTER → 2024-08-30 | Outpatient (REF) | payer MEDICARE, MEDICAID, SELFPAY ==
[2024-08-30 08:39] LABS: Mucous, Urine 0 SEEN /hpf (<or=2+); Squamous Epithelial Cells - UA 0 SEEN /hpf (5-10)
[2024-08-30 08:47] LABS: Color, Urine Straw (Yellow); Glucose, Dipstick Normal (Normal); Ketone-Dipstick Negative (Negative); Leukocyte Esterase-Dipstick 500 /ul (Negative); Nitrite-Dipstick Positive (Negative); Occult Blood-Urine 10 /ul (Negative); Protein-Dipstick 15 mg/dl (Negative); Urine Bilirubin Dipstick Negative (Negative); Urine Clarity Clear (Clear); Urine Urobilinogen Normal (Normal)
[2024-08-30 09:23] LABS: Bacteria 1+ /hpf (None Seen); Red Blood Cells-Urine 0 SEEN /hpf (0-5); White Blood Cells 0-5 SEEN /hpf (0-5)
== END ==
LOC: OLS.SANC 05:10
PROVIDERS: Visit Provider Internal Medicine
DX: N39.0 Urinary tract infection, site not specified (principal)
CPT/HCPCS: 81001; 87086; 87088; 87186

== ENCOUNTER → 2024-09-25 | Outpatient (REF) | payer MEDICARE, MEDICAID, SELFPAY ==
[2024-09-25 10:27] LABS: Hematocrit 35.6 % (37-47); Hemoglobin 12.1 g/dL (12.0-15.0); Mean Corpuscular Hgb 32.4 pg (27.0-32.0); Mean Corpuscular Volume 95.2 fL (81-99); Mean Platelet Vol. 11.3 fl (6.2-12.0); Platelet Count 202 K/mm3 (150-450); RBC Distribution Width CV 13.6 % (11.6-14.6); RBC Distribution Width SD 47.6 fl (35.1-43.9); Red Blood Count 3.74 M/mm3 (4.2-5.4)
[2024-09-25 23:29] LABS: Cholesterol 132 mg/dL (<=200); High Density Lipoprotein 39 mg/dL; Low Density Lipoprotein Calc. 70 mg/dL; Triglycerides 116 mg/dL; Very Low Density Lipoprotein 23 mg/dL (5-40); cholesterol:hdl ratio screen 3.41
[2024-09-25 23:41] LABS: ALB/GLOB Ratio 1.5 RATIO (0.9-2.4); AST(SGOT) 22 U/L (<=31); Alanine Aminotransfer ALT/SGPT 8 U/L (<=34); Albumin, Serum 3.5 g/dL (3.4-4.8); Alkaline Phosphatase 89 U/L (35-104); Anion Gap 10 (5-15); BUN 30 mg/dL (4-19); BUN/Creat Ratio 21.8 RATIO (10-20); Calcium,Total 9.1 mg/dL (7.6-11.0); Carbon Dioxide 23.2 mmol/L (21.0-32.0); Chloride 106 mmol/L (98-108); Creatinine, Serum 1.37 mg/dL (0.70-1.20); EST Glomerular Filtration Rate 40 (>60); Globulin 2.3 g/dL (2.2-4.2); Glucose 121 mg/dL (70-99); Potassium 3.7 mmol/L (3.3-5.1); Protein, Total 5.7 g/dL (5.9-8.4); Sodium Level 139 mmol/L (133-145); Total Bilirubin 0.35 mg/dL (0.00-1.30)
[2024-09-26 20:56] LABS: Hemoglobin A1c 5.6 % (<=5.6)
== END ==
LOC: OLS.SANC 05:00
PROVIDERS: Visit Provider Internal Medicine
DX: E78.5 Hyperlipidemia, unspecified (principal); E03.9 Hypothyroidism, unspecified; Z79.899 Other long term (current) drug therapy
CPT/HCPCS: 36415; 80053; 80061; 83036; 84443; 85027

== ENCOUNTER → 2025-02-06 03:00 | Outpatient (REF) | payer MEDICARE, MEDICAID, SELFPAY ==
[2025-02-06 08:20] LABS: Mucous, Urine 0 SEEN /hpf (<or=2+); Red Blood Cells-Urine 0 SEEN /hpf (0-5)
[2025-02-06 08:44] LABS: Color, Urine Yellow (Yellow); Glucose, Dipstick Normal (Normal); Ketone-Dipstick Negative (Negative); Leukocyte Esterase-Dipstick Negative /ul (Negative); Nitrite-Dipstick Negative (Negative); Occult Blood-Urine Negative /ul (Negative); Protein-Dipstick Negative (Negative); Specific Gravity, Urine 1.010 (1.002-1.030); Urine Bilirubin Dipstick Negative (Negative)
[2025-02-06 08:50] LABS: Squamous Epithelial Cells - UA 0-5 SEEN /hpf (5-10)
== END ==
LOC: OLS.SANC 03:00
PROVIDERS: Visit Provider Internal Medicine
DX: E11.9 Type 2 diabetes mellitus without complications (principal); E78.5 Hyperlipidemia, unspecified; E03.9 Hypothyroidism, unspecified; I10 Essential (primary) hypertension; R41.82 Altered mental status, unspecified
CPT/HCPCS: 81001; 87086; 87088

== ENCOUNTER → 2025-02-22 | Outpatient (REF) | payer MEDICARE, MEDICAID, SELFPAY ==
[2025-02-23 08:10] LABS: Mucous, Urine 0 SEEN /hpf (<or=2+); Red Blood Cells-Urine 0 SEEN /hpf (0-5)
[2025-02-23 08:34] LABS: Color, Urine Yellow (Yellow); Glucose, Dipstick Normal (Normal); Ketone-Dipstick Negative (Negative); Leukocyte Esterase-Dipstick Negative /ul (Negative); Nitrite-Dipstick Negative (Negative); Occult Blood-Urine Negative /ul (Negative); Protein-Dipstick 15 mg/dl (Negative); Specific Gravity, Urine 1.015 (1.002-1.030); Urine Bilirubin Dipstick Negative (Negative)
[2025-02-23 08:46] LABS: Squamous Epithelial Cells - UA 0-5 SEEN /hpf (5-10)
== END ==
LOC: OLS.SANC 21:00
PROVIDERS: Visit Provider Internal Medicine
DX: N39.0 Urinary tract infection, site not specified (principal)
CPT/HCPCS: 81001; 87086; 87088

== ENCOUNTER → 2025-03-01 | Outpatient (REF) | payer MEDICARE, MEDICAID, SELFPAY ==
--- OUTSIDE RECORDS SUMMARY | 2025-03-01 03:42 | XMS RPT_ITS | CCD ---
Author Organization [facility] Care Team Providers Care [employer] Name Role Phone PROVIDER, UNKNOWN Unavailable Unavailable Manddaya, Grant Unavailable Unavailable Efraín Negrete Unavailable Unavailable Mandat, Grant Unavailable Unavailable Mandat, Grant Unavailable [facility]available [facility] Unavailable Unavailable Alfonso Berry Unavailable Unavailable Manddaya, Grant Unavailable Unavailable Iban Lauren Unavailable Unavailable Mandat, Grant Unavailable Unavailable Mandat, Grant Unavailable Unavailable [facility] Unavailable [facility]available [facility] Unavailable Unavai lable Jeff, Grant Unavailable Unavailable Jazmín Root MD Unavailable Unavailable Mandat, Grant E Unavailable Unavailable None, No PCP Unavailable Unavailable Manddaya, Dr. Grant Husain Attending Unavaila ble Mandat, Dr. Grant Husain Primary Care Unavaila ble Mandat, Dr. Grant Husain Attending Unavaila ble Mandat, Dr. Grant Husain Primary Care Unavaila ble Mandat, Dr. Grant Husain Attending Unavaila ble Mandat, Dr. Grant Husain Primary Care Unavaila ble Mandat, Dr. Grant Husain Attending Unavaila ble Mandat, Dr. Grant Husain Primary Care Unavaila ble Mandat, Dr. Grant Husain Attending Unavaila ble Mandat, Dr. Grant Husain Primary Care Unavaila ble Mandat, Dr. Grant Husain Attending Unavaila ble Mandat, Dr. Grant Husain Primary Care Unavaila ble Mandat, Dr. Grant Husain Attending Unavaila ble Mandat, Dr. Grant Husain Primary Care Unavaila ble Mandat, Dr. Grant Husain Attending Unavaila ble Mandat, Dr. Grant Husain Primary Care Unavaila ble Mandat, Dr. Grant Husain Attending Unavaila ble Mandat, Dr. Grant Husain Primary Care Unavaila ble Mandat, Dr. Grant Husain Attending Unavaila ble Mandat, Dr. Grant Husain Primary Care Unavaila ble Mandat, Dr. Grant Husain Attending Unavaila ble Mandat, Dr. Grant Husain Primary Care Unavaila ble Mandat, Dr. Grant Husain Attending Unavaila ble Mandat, Dr. Grant Husain Primary Care Unavaila ble Mandat, Dr. Grant Husain Attending Unavaila ble Mandat, Dr. Grant Husain Primary Care Unavaila ble Mandat, Dr. Grant Husain Attending Unavaila ble Mandat, Dr. Grant Husain Primary Care Unavaila ble Mandat, Dr. Grant Husain Attending Unavaila ble Mandat, Dr. Grant Husain Primary Care Unavaila ble Mandat, Dr. Grant Husain Attending Unavaila ble Mandat, Dr. Grant Husain Primary Care Unavaila ble Evi Guevara Primary Care Provider [phone] Unavailable Primary Care Provider Unavailabl e Evi Mahoney Attending Provider Unavailab Evi Bryant Referring Provider Unavailab [facility] [place] Attending Provider [phone] Evi Mahoney Attending Provider Unavailab le ShilpisaEvi Bowman Referring Provider Unavailab [facility] [place] Attending Provider Evi Guevara Primary Care Provider MIRANDA MAGAÑA Attending Unavailable EVI GUEVARA Primary Care Unavailable EVI GUEVARA Primary Care Unavailable SHEFALI, OHARA Admitting Unavailable SHEFALIBARTOLO Attending Unavailable EVI GUEVARA Primary Care Unavailable FRANCISCO, DOMINGUEZ Admitting Unavailable ALAJAJI, WISSAM Consulting Unavailable AVI VASQUEZ Attending Unavailable ANGELINA TRUJILLO Attending Unavailable EVI GUEVARA Primary Care Unavaila ANGELINA Payton Attending Unavailable Katsaros LEW, Evi Attending Unavailable Katsaros LEW, Evi Attending Unavailable Katsaros LEW, Evi Attending Unavailable Katsaros LEW, Evi Attending Unavailable KatsaEvi Bowman Referring Unavailable Shilpisamabel HACKETT, Evi Attending Unavailable Katsaros LEW, Evi Attending Unavailable [facility] [place] Attending Evi Grimes Attending Unavailable Katsaros LEW, Evi Attending Unavailable Katsaros LEW, Evi Attending Unavailable Katsaros LEW, Evi Attending Unavailable Katsaros LEW, Evi Attending Unavailable Katsaros LEW, Evi Attending Unavailable Katsaros OLS, Peter Attending Unavailable Evi Mahoney Attending Unavailable Allergies Allergy Classification Reported Allergen(s) Allergy Type Date of Onset Reaction(s) Facility (3 sources) Streptococcus pneumoniae type 1 capsular polysaccharide antigen / Streptococcus pneumoniae type 10A capsular polysaccharide antigen / Streptococcus pneumoniae type 11A capsular polysaccharide antigen / Streptococcus pneumoniae type 12F capsular polysaccharide antigen / Streptococcus pneumoniae type 14 capsular polysaccharide antigen / Streptococcus pneumoniae type 15B capsular polysaccharide antigen / Streptococcus pneumoniae type 17F capsular polysaccharide antigen / Streptococcus pneumoniae type 18C capsular polysaccharide antigen / Streptococcus pneumoniae type 19A capsular polysaccharide antigen / Streptococcus pneumoniae type 19F capsular polysaccharide antigen / Streptococcus pneumoniae type 2 capsular polysaccharide antigen / Streptococcus pneumoniae type 20 capsular polysaccharide antigen / Streptococcus pneumoniae type 22F capsular polysaccharide antigen / Streptococcus pneumoniae type 23F capsular polysaccharide antigen / Streptococcus pneumoniae type 3 capsular polysaccharide antigen / Streptococcus pneumoniae type 33F capsular polysaccharide antigen / Streptococcus pneumoniae type 4 capsular polysaccharide antigen / Streptococcus pneumoniae type 5 capsular polysaccharide antigen / Streptococcus pneumoniae type 6B capsular polysaccharide antigen / Streptococcus pneumoniae type 7F capsular polysaccharide antigen / Streptococcus pneumoniae type 8 capsular polysaccharide antigen / Streptococcus pneumoniae type 9N capsular polysaccharide antigen / Streptococcus pneumoniae type 9V capsular polysaccharide antigen; Translations: [PNEUMOCOCCAL 23-AIDA PS VACCINE] Drug Allergy 12-30-2012 Unknown [facility] Medications Current Medications Medication Drug Class(es) Dates Sig (Normalized) Sig (Original) acetaminophen 325 mg / oxyCODONE hydrochloride 5 mg oral tablet (11 sources) Opioid Agonist Start: 11-21-2024 End: 12-04-2024 take 1 tablet by mouth every eight hours as needed for pain oxyCODONE-acetami nophen (Percocet) 5-325 MG tablet Indications: Pain Take 1 tablet by mouth every 8 hours as needed (for pain) for up to 3 days. 9 tablet 11/21/2024 12/04/2024 Active Start: 11-14-2024 End: 11-24-2024 Start: 07-04-2012 take 1 tablet by gaurav th every six hours as needed oxyCODONE-acetaminophen (PERCOCET) 5-325 mg tablet Take 1 tablet by mouth every 6 hours as needed for Pain. 60 tablet 0 07/04/2012 Active take 1 tablet by gaurav th every eight hours as needed for pain oxyCODONE-acetaminophen (Percocet) 5-325 MG tablet Indications: Pain Take 1 tablet by mouth every 8 hours as needed (for pain). 0 Active Cetirizine (2 sources) Histamine-1 Receptor Antagonist CETIRIZINE HCL (ZYRT EC ORAL) Take by mouth as needed. Active cyclobenzaprine hydrochloride 10 mg oral tablet (2 sources) Muscle Relaxant Start: 014 take 1 tablet by mouth once daily at bedtime CYCLOBENZAPRINE 10 mg tablet Indications: DJD (degenerative joint disease) Take 1 tablet by mouth daily at bedtime. 30 tablet 5 03/01/2014 Active donepezil hydrochloride 5 mg oral tablet (2 sources) Start: take 1 tablet by mouth once daily at bedtime donepezil (ARICEPT) 5 mg tablet Take 1 tablet by mouth daily at bedtime. 30 tablet 2 09/27/2013 Active escitalopram 10 mg oral tablet (6 sources) Serotonin Reuptake Inhibitor End: take 1 tablet by mouth once daily escitalopram oxalate (LEXAPRO) 10 mg tablet Take 10 mg by mouth once daily. Active hydrALAZINE hydrochloride 100 mg oral tablet (14 sources) Arteriolar Vasodilator Start: End: take 1 tablet by mouth three times daily hydrALAZINE (Apresoline) 100 MG tablet Take 1 tablet (100 mg) by mouth 3 times daily. 90 tablet 1 11/21/2024 01/20/2025 Active Start: 11-17-2024 End: 11-21-2024 Start: 10-11-2020 End: 11-21-2024 take 1 tablet by mouth every eight hours as needed take 1 tablet by gaurav th every eight hours as needed hydrALAZINE (APRESOLINE) 25 mg tablet Take 25 mg by mouth three times a day as needed. Active 24 hr isosorbide mononitrate 30 mg extended release oral tablet (5 sources) Nitrate Vasodilator Start: 11-17-2024 End: 01-21-2025 take 1 tablet by mouth once daily isosorbide mononitrate ER (Imdur) 30 MG 24 hr tablet Take 1 tablet (30 mg) by mouth daily. Do not crush or chew. 30 tablet 1 11/22/2024 01/21/2025 Active LORazepam 2 mg oral tablet (2 sources) Benzodiazepine Start: 06-30-2013 take 1 tablet by mouth every twelve hours as needed LORazepam (ATIVAN) 2 mg tab Take 1 tablet by mouth twice daily as needed. 90 tablet 0 06/30/2013 Active 24 hr metoprolol succinate 100 mg extended release oral tablet (14 sources) beta-Adrenergic Liana Start: 11-15-2024 End: 01-21-2025 take 1 tablet by mouth once daily metoprolol succinate XL (Toprol-XL) 100 MG 24 hr tablet Take 1 tablet (100 mg) by mouth daily. Do not crush or chew. 30 tablet 1 11/22/2024 01/21/2025 Active Start: 11-21-2019 End: 11-21-2024 rimegepant 75 mg disintegrating oral tablet (3 sources) Start: 08-18-2024 take 1 tablet by mouth once daily as needed rimegepant (NURTEC ODT) 75 mg disintegrating tablet Take 1 tablet by mouth once daily as needed. 8 tablet 2 08/18/2024 Active topiramate 25 mg oral tablet (3 sources) Start: 10-30-2020 take 1 capsule by mouth once daily at bedtime, then take 1 capsule by mouth twice daily, then take 1 capsule by mouth in the morning, then take 2 capsules by mouth once daily at bedtime, then take 2 capsules by mouth twice daily Topiramate 25 MG Oral Tablet 1 caps qhs x 3 days then increase to 1 capsule BID x 3 days, then take 1 caps in am 2 caps qhs x 3 days then take 2 caps BID and continue Quantity: 120 Refills: 5 Jazmín Root MD Start : 30-Oct-2020 Active Start: 11-29-2014 take 1 tablet by gaurav once daily at bedtime topiramate (TOPAMAX) 100 mg tablet TAKE ONE TABLET BY MOUTH EVERY DAY AT BEDTIME 14 tablet 0 11/29/2014 Active Completed/Discontinued Medications Medication Drug Class(es) Dates Sig (Normalized) Sig (Original) acetaminophen 325 mg oral tablet (10 sources) Start: 11-13-2024 End: 11-21-2024 Start: 12-16-2023 End: 12-17-2023 take 1 tablet by mouth every six hours as needed for pain and fever acetaminophen (Tylenol) tablet 650 mg acetaminophen 250 mg / aspirin 250 mg / caffeine 65 mg oral tablet (2 sources) Platelet Aggregation Inhibitor, Nonsteroidal Anti-inflammatory Drug, Central Nervous System Stimulant, Methylxanthine Start: 11-13-2024 End: 11-21-2024 albuterol 0.833 mg/ml / ipratropium bromide 0.167 mg/ml inhalation solution (2 sources) Anticholinergic, beta2-Adrenergic Agonist Start: 11-14-2024 End: 11-21-2024 aluminum hydroxide 40 mg/ml / magnesium hydroxide 40 mg/ml / simethicone 4 mg/ml oral suspension (7 sources) Start: 11-13-2024 End: 11-21-2024 take 10 mL by mouth every four hours as needed for gastroesophageal reflux disease take 10 mL by mouth every four hours as needed for gastroesophageal reflux disease aluminum-magnesium hydroxide-simethicone (Maalox MAX) 400-400-40 MG/5ML suspension Take 10 mL by mouth every 4 hours as needed for indigestion or heartburn. Active take 10 mL by mouth every four hours as needed for gastroesophageal reflux disease Aspirin (4 sources) Platelet Aggregation Inhibitor, Nonsteroidal Anti-inflammatory Drug Start: 12-16-2023 End: 12-17-2023 aspirin EC tablet 81 mg take 1 tablet by mouth once kamini y aspirin, enteric coated 81 mg EC tablet Take 81 mg by mouth once daily. Active atorvastatin 40 mg oral tablet (11 sources) HMG-CoA Reductase Inhibitor Start: 08-11-2019 End: 11-21-2024 bisacodyl 10 mg rectal suppository (12 sources) Stimulant Laxative Start: 12-16-2023 End: 12-17-2023 take 10 mg rectal route every twenty-four hours as needed for constipation 10 mg, Rectal, Daily PRN, constipation, Starting on Wed12/16/23 at 1616, 2nd line for treatment of constipation - give scheduled (in addition to 1st line agent) if no bowel movement in past 48 hours End: 11-21-2024 Bisacodyl (DULCOLAX) 5 mg ta b Take 5 mg by mouth as needed for constipation. Active busPIRone hydrochloride 5 mg oral tablet (9 sources) Start: 11-14-2024 End: 11-21-2024 take 2.5 mg by mouth twice daily busPIRone (BUSPAR) 5 mg tablet Take 2.5 mg by mouth two times a day. Active cholecalciferol 9.52 unt/ml / glucose 357 mg/ml oral gel (2 sources) Vitamin D Start: 11-14-2024 End: 11-21-2024 cloNIDine hydrochloride 0.1 mg oral tablet (9 sources) Central alpha-2 Adrenergic Agonist Start: 11-14-2024 End: 11-14-2024 Start: 10-09-2020 apply 1 dose transde rmal route every week in the morning for hypertension cloNIDine 0.3 MG/24HR Transdermal Patch Weekly Apply 1 patch transdermally in the morning every Wed for hypertension Refills: 0 Start : 09-Oct-2020 Active End: 11-21-2024 take 1 tablet by mouth twice daily cloNIDine HCl (CATAPRES) 0.2 mg tablet Take 0.2 mg by mouth two times a day. Active clopidogrel 75 mg oral tablet (7 sources) P2Y12 Platelet Inhibitor Start: 08-11-2019 End: 11-21-2024 take 1 tablet by mouth once daily Clopidogrel Bisulfate 75 MG Oral Tablet Take 1 tablet daily Quantity: 90 Refills: 3 Start : 11-Aug-2019 Active diclofenac sodium 0.01 mg/mg topical gel (1 source) Nonsteroidal Anti-inflammatory Drug Start: 08-19-2020 Diclofenac Sodium 1 % External Gel Quantity: 100 Refills: 0 Start : 19-Aug-2020 Active Drug or medicament (substance) (4 sources) Start: 11-20-2024 End: 11-21-2024 Start: 11-20-2024 End: 11-21-2024 DULoxetine 30 mg delayed release oral capsule (11 sources) Serotonin and Norepinephrine Reuptake Inhibitor Start: 03-07-2020 End: 11-21-2024 Start: 12-25-2013 End: 08-18-2024 take 1 capsule by mouth once daily DULoxetine (CYMBALTA) 60 mg capsule Indications: Chronic leg pain , Depression Take 1 capsule by mouth once daily. 30 capsule 5 12/25/2013 08/18/2024 Discontinued take 1 capsule by [facility] once daily DULoxetine (CYMBALTA) 30 mg capsule Take 30 mg by mouth once daily. Active 0.4 ml enoxaparin sodium 100 mg/ml prefilled syringe (7 sources) Low Molecular Weight Heparin Start: 11-21-2024 End: 12-04-2024 inject 0.4 mL by subcutaneous injection every twenty-four hours enoxaparin (Lovenox) 40 MG/0.4ML solution prefilled syringe Indications: Prophylaxis of Venous Thromboembolism Inject 0.4 mL (40 mg) under the skin every 24 hours for 10 days. 10 each 11/21/2024 12/04/2024 Discontinued Start: 11-13-2024 End: 12-01-2024 Start: 12-16-2023 End: 12-17-2023 inject 40 mg by subcutaneous injection every twenty-four hours 40 mg, SubCUTAneous, Every 24 hours scheduled (Daily), First dose on Liliya 12/16/23 at 1620, Indication of Use: Prophylaxis-DVT/PE, Indications: Prophylaxis of Venous Thromboembolism famotidine 20 mg oral tablet (10 sources) Histamine-2 Receptor Antagonist Start: 10-15-2019 End: 11-21-2024 2 ml furosemide 10 mg/ml injection (4 sources) Loop Diuretic Start: 11-13-2024 End: 11-14-2024 gabapentin 300 mg oral capsu le (16 sources) Anti-epileptic Agent Start: 11-20-2024 End: 11-21-2024 Start: 11-18-2024 End: 11-20-2024 Start: 11-16-2024 End: 11-17-2024 Start: 11-14-2024 End: 11-16-2024 Start: 08-18-2024 End: 11-16-2024 take 1 tablet by mouth twice daily gabapentin (NEURONTIN) 600 mg tablet Take 1 tablet by mouth two times a day for 90 days. 60 tablet 2 08/18/2024 11/16/2024 Active Start: 11-21-2019 End: 08-18-2024 take 1 tablet by mouth twice daily Gabapentin 300 MG Oral Capsule Take 1 tab twice daily. Quantity: 90 Refills: 0 Start : 21-Nov-2019 Active glucagon (rdna) 1 mg injecti on (2 sources) Antihypoglycemic Agent Start: 11-14-2024 End: 11-21-2024 50 ml glucose 50 mg/ml injec tion (2 sources) Start: 11-14-2024 End: 11-21-2024 hydroCHLOROthiazide 25 mg or al tablet (10 sources) Thiazide Diuretic Start: 08-22-2011 End: 11-17-2024 End: 11-14-2024 ibuprofen 200 mg oral tablet (4 sources) Nonsteroidal Anti-inflammatory Drug End: 11-21-2024 take 400 mg by mouth every six hours take 2 tablets by mouth every si x hours ibuprofen 200 MG tablet Take 400 mg by mouth in the morning and 400 mg at noon and 400 mg in the evening and 400 mg before bedtime. Give adequate fluid and food with medication to minimize GI irritation . 0 Active 3 ml insulin glargine 100 unt/ml pen injector (1 source) Insulin Analog Start: 09-08-2019 Lantus SoloStar 100 UNIT/ML Subcutaneous Solution Pen-injector Quantity: 3 Refills: 0 Start : 08-Sep-2019 Active iopamidol (Isovue-370) 76 % injection 75 mL (2 sources) Start: 12-16-2023 End: 12-16-2023 iopamidol (Isovue-370) 76 % injection 75 mL labetalol hydrochloride 5 mg/ml injectable solution (4 sources) beta-Adrenerg ic Liana Start: 11-14-2024 End: 11-21-2024 take 10 mg intravenously every six hours as needed for hypertension Start: 12-16-2023 End: 12-17-2023 10 mg, IntraVENous, Every 10 min PRN, high blood pressure, Starting on [facility] 12/16/23 at 1616, Administer 10 mg IV every 10 minutes if SBP is 220 mmHg or greater OR DBP is 120 mmHg or greater. Notify provider if SBP is 220 mmHg or greater OR DBP is 120 mmHg or greater after 3 consecutive doses. levothyroxine sodium 0.05 mg oral tablet (10 sources) l-Thyroxine Start: 08-11-2019 End: 11-21-2024 lidocaine hydrochloride 20 m g/ml mucous membrane topical solution (2 sources) Antiarrhythmic, Amide Local Anesthetic Start: 11-13-2024 End: 11-21-2024 lisinopril 5 mg oral tablet (11 sources) Angiotensin Converting Enzyme Inhibitor Start: 11-17-2024 End: 11-21-2024 Start: 11-15-2024 End: 11-17-2024 Start: 11-15-2019 take 1 tablet by gaurav th once daily Lisinopril 20 MG Oral Tablet TAKE 1 TABLET DAILY. Quantity: 30 Refills: 11 Start : 15-Nov-2019 Active Start: 03-01-2014 take 1 tablet by gaurav th once daily lisinopril 10 mg tablet Indications: HTN (hypertension) Take 1 tablet by mouth once daily. 30 tablet 2 03/01/2014 Active magnesium hydroxide 80 mg/ml oral suspension (7 sources) Start: 11-13-2024 End: 11-21-2024 take 30 mL by mouth once daily as needed for constipation magnesium hydroxide (Milk of Magnesia) 4 00 MG/5ML suspension Indications: Constipation Take 30 mL by mouth Daily as needed for constipation. If no bm in 3 days Active melatonin 3 mg oral tablet (9 sources) Start: 11-13-2024 End: 11-14-2024 Start: 11-13-2024 End: 11-21-2024 take 3 tablets by mo [facility] once daily melatonin 1 MG tablet Indications: Insomnia Take 3 mg by mouth Nightly. Active metFORMIN hydrochloride 500 mg oral tablet (1 source) Biguanide Start: 10-12-2019 take 1 tablet by mouth twice daily metFORMIN HCl - 500 MG Oral Tablet Take 1 tablet twice daily Quantity: 180 Refills: 3 Start : 12-Oct-2019 Active methylPREDNISolone 125 mg injection (2 sources) Corticosteroid Start: 11-13-2024 End: 11-13-2024 1 ml naloxone hydrochloride 0.4 mg/ml injection (2 sources) Opioid Antagonist Start: 11-14-2024 End: 11-21-2024 ondansetron ODT (Zofran-ODT) disintegrating tablet 4 mg (2 sources) Start: 12-16-2023 End: 12-17-2023 take 1 tablet by mouth every eight hours as needed for nausea and vomiting ondansetron ODT (Zofran-ODT) disintegrating tablet 4 mg perflutren protein A microsphere (Optison) 3 mL in sodium chloride (PF) 0.9 % 10 mL IV syringe (2 sources) Start: 12-16-2023 End: 12-17-2023 0-10 mL, IntraVENous, IMG once PRN, other, Suboptimal echo image, Starting on Liliya 12/16/23 at 1616, For 1 dose, CV Procedural Medications, Administer via slow IVP for suboptimal echocardiogram enhancement. May administer as divided doses to reach optimal image enhancement phenol 14 mg/ml mucosal spray (2 sources) Start: 11-13-2024 End: 11-21-2024 polyethylene glycol 3350 84155 mg powder for oral solution (8 sources) Osmotic Laxative Start: 11-13-2024 End: 11-21-2024 take 17 g by mouth every twenty-four hours as needed for constipation Start: 12-16-2023 End: 12-17-2023 take 17 g by mouth every twenty-four hours as needed for constipation 17 g, Oral, Daily PRN, constipation, Starting on Liliya 12/16/23 at 1616, 1st line for treatment of constipation - give scheduled if no bowel movement in past 24 hours. take 17 g by mouth once polyethy olga glycol, PEG, 3350 (Miralax) 17 g packet Indications: Constipation Take 17 g by mouth Once. 0 Active potassium chloride 20 meq po wder for oral solution (6 sources) Start: 11-19-2024 End: 11-19-2024 Start: 11-18-2024 End: 11-18-2024 Start: 11-18-2024 End: 11-18-2024 50 ml sodium chloride 9 mg/m l injection (10 sources) Start: 12-16-2023 End: 12-16-2023 sodium chloride 0.9 % bolus 250 mL Start: 12-16-2023 End: 12-17-2023 sodium chloride 0.9 % infusi on Start: 12-16-2023 End: 12-17-2023 take 5-40 mL intravenously every twelve hours sodium chloride 0.9% (NS) flush 5-40 mL spironolactone 25 mg oral tablet (5 sources) Aldosterone Antagonist Start: 11-14-2024 End: 11-17-2024 SUMAtriptan 50 mg oral tablet (6 sources) Serotonin-1b and Serotonin-1d Receptor Agonist End: 12-04-2024 take 1 tablet by mouth every six hours as needed SUMAtriptan (Imitrex) 50 MG tablet Indications: Migraine Take 50 mg by mouth every 6 hours as needed for migraine. 12/04/2024 Discontinued traMADol hydrochloride 50 mg oral tablet (5 sources) Opioid Agonist Start: 10-11-2019 End: 11-21-2024 take 1 tablet by mouth four times daily as needed for pain traMADol HCl - 50 MG Oral Tablet TAKE 1 TABLET 4 TIMES DAILY NEEDED FOR PAIN. Quantity: 120 Refills: 0 Start : 11-Oct-2019 Active take 1 tablet by gaurav every six hours as needed for pain and pain traMADol (Ultram) 50 MG tablet Take 50 m g by mouth every 6 hours as needed for severe pain (7-10) or moderate pain (4-6). Monitor signs and symptoms of delirium, over sedation, change in mental status and reduced respirations 0 Active traZODone hydrochloride 50 mg oral tablet (1 source) Serotonin Reuptake Inhibitor Start: 08-20-2019 take 1 tablet by mouth at bedtime traZODone HCl - 50 MG Oral Tablet TAKE 1 TABLET AT BEDTIME NEEDED. Quantity: 90 Refills: 3 Start : 20-Aug-2019 Active ubrogepant 50 mg oral tablet (1 source) Start: 04-08-2020 take 1 tablet by mouth every two hours Ubrelvy 50 MG Oral Tablet take 1 tablet by mouth AT ONSET OF HEADACHE, MAY REPEAT IN 2 HOURS Quantity: 10 Refills: 1 Start : 08-Apr-2020 Active zolpidem tartrate 5 mg oral tablet (3 sources) gamma-Aminobutyr ic Acid-ergic Agonist Start: 07-26-2019 take 0.5-1 tablets by mouth once daily at bedtime as needed Zolpidem Tartrate 5 MG Oral Tablet takes 1/2 - 1 tablet qhs prn insomnia Quantity: 90 Refills: 0 Start : 26-Jul-2019 Active Start: 05-17-2013 take 1 tablet by gaurav th every twenty-four hours as needed zolpidem (AMBIEN) 10 mg tab Take 1 tablet by mouth at bedtime as needed (for sleep). 90 tablet 0 05/17/2013 Active (2 sources) Start: 11-14-2024 End: 11-21-2024 (12 sources) Start: 11-14-2024 End: 11-14-2024 Start: 11-14-2024 End: 11-21-2024 [Order 1 Start] Name: Insuli n Lispro (Humalog) injection 0-12 Units Signed Summary: 0-12 Units, SubCUTAneous, 3 times daily with meals, First dose on Wed11/14/24 at 0800, Medium Dose Correction Algorithm Glucose: Dose: LESS than 150 No Insulin 150-199 2 Units 200-249 4 Units 250-299 6 Units 300-349 8 Units 350-400 10 Units Above 400 12 Units [Order 1 End] [Order 2 Start] Name: Insulin Lispro (Humalog) injection 0-12 Units Signed Summary: 0-12 Units, SubCUTAneous, Nightly, First dose on Wed11/14/24 at 2100, If eating or bolus tube feeding: Medium Dose Correction Algorithm Glucose: Dose: LESS than 150 No Insulin 150-199 2 Units 200-249 4 Units 250-299 6 Units 300-349 8 Units 350-400 10 Units Above 400 12 Units [Order 2 End] Start: 11-13-2024 End: 11-14-2024 take 4500 mg intravenously every six hours Start: 11-13-2024 End: 11-21-2024 take 4 mg by mouth every eight hours as needed for nausea and vomiting [Order 1 Start] Name: ondansetron ODT (Zofran-ODT) disintegrating tablet 4 mg Signed Summary: 4 mg, Oral, Every 8 hours PRN, nausea, vomiting, Starting on Wed11/13/24 at 1458, 1st Line. If inadequate response within 60 minutes, proceed to next-line agent or contact provider if no further options ordered. Patient should allow tablet to dissolve on tongue. Do not remove from blister pack until just before administering. [Order 1 End] [Order 2 Start] Name: ondansetron (Zofran) injection 4 mg Signed Summary: 4 mg, IntraVENous, Every 6 hours PRN, nausea, vomiting, Starting on Wed11/13/24 at 1458, 1st Line. Give IV if patient is unable to take orally. If inadequate response within 60 minutes, proceed to next-line agent or contact provider if no further options ordered. [Order 2 End] Start: 11-13-2024 End: 11-21-2024 take 650 mg by mouth every six hours as needed for pain and fever [Order 1 Start] Name: acetaminophen (Tylenol) tablet 650 mg Signed Summary: 650 mg, Oral, Every 6 hours PRN, mild pain (1-3), fever, For temp greater than 100.4 F (38 C), Starting on Wed11/13/24 at 1458, Maximum dose of acetaminophen is 4000 mg from all sources in 24 hours. [Order 1 End] [Order 2 Start] Name: acetaminophen (Tylenol) suppository 650 mg Signed Summary: 650 mg, Rectal, Every 6 hours PRN, fever, For temp greater than 100.4 F (38 C), Starting on 11/13/24 at 1458, Administer if oral route cannot be used. Maximum dose of acetaminophen is 4000 mg from all sources in 24 hours. [Order 2 End] Start: 11-13-2024 End: 11-13-2024 (2 sources) Start: 11-13-2024 End: 11-13-2024 Problems Active Problems Problem Classification Problem Date Documented Da te Episodic/Chronic Acute and unspecified renal failure (4 sources) Acute nontraumatic kidney injury; Translations: [Acute kidney failure, unspecified] Onset: 5 11-13-2024 Episodic Acute cerebrovascular disease (6 sources) Cerebral infarction, unspecified; Translations: [Cerebrovascular accident] Onset: 8 Chronic Anxiety disorders (3 sources) Anxiety; Translations: [Anxiety disorder, unspecified] Onset: 8 11-13-2024 Chronic Cardiac dysrhythmias (4 sources) Paroxysmal atrial fibrillation; Translations: [Paroxysmal atrial fibrillation] Onset: 5 Chronic Chronic kidney disease (11 sources) Chronic kidney disease, unspecified; Translations: [Chronic kidney disease stage 3A ] Onset: 3 Chronic Chronic kidney disease (6 sources) Chronic kidney disease; Translations: [Chronic kidney disease, stage 3 unspecified] Onset: 3 Congestive heart failure; nonhypertensive (13 sources) Congestive heart failure; Translations: [Heart failure, unspecified] Onset: 5 11-13-2024 Chronic Delirium, dementia, and amnestic and other cognitive disorders (4 sources) Dementia; Translations: [Unspecified dementia without behavioral disturbance] Onset: 9 11-13-2024 Chronic Diabetes mellitus with complications (7 sources) Renal disorder due to type 2 diabetes mellitus; Translations: [Type 2 diabetes mellitus with diabetic nephropathy] Onset: 5 11-21-2024 Chronic Diabetes mellitus without complication (5 sources) Type 2 diabetes mellitus without complications; Translations: [Type 2 diabetes mellitus without complications] Onset: 3 Chronic Disorders of lipid metabolism (11 sources) Hyperlipidemia, unspecified; Translations: [Hyperlipidemia] Onset: 8 Chronic Esophageal disorders (3 sources) Gastroesophageal reflux disease; Translations: [Gastro-esophageal reflux disease without esophagitis] Onset: 9 11-13-2024 Chronic Essential hypertension (13 sources) Essential (primary) hypertension; Translations: [Hypertensive disorder] Onset: 8 Chronic Gout and other crystal arthropathies (3 sources) Gout; Translations: [Gout, unspecified] Onset: 9 11-13-2024 Chronic Headache; including migraine (5 sources) Refractory migraine without aura; Translations: [Migraine without aura, intractable, without status migrainosus] Onset: 9 08-18-2024 Chronic Headache; including migraine (3 sources) Headache; Translations: [Headache] 08-18-2024 Episodic Hypertension with complications and secondary hypertension (4 sources) Hypertensive chronic kidney disease with stage 1 through stage 4 chronic kidney disease, or unspecified chronic kidney disease; Translations: [Chronic kidney disease due to hypertension] Onset: 3 11-13-2024 Chronic Late effects of cerebrovascular disease (7 sources) 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; Translations: [Hemiplegia and hemiparesis following cerebral infarction affecting unspecified side] Onset: 9 11-21-2024 Chronic Mood disorders (10 sources) Bipolar disorder; Translations: [Bipolar disorder, unspecified] Onset: 9 11-21-2024 Chronic Nutritional deficiencies (5 sources) Vitamin D deficiency, unspecified; Translations: [Vitamin D deficiency] Onset: 3 11-13-2024 Chronic Osteoarthritis (5 sources) Osteoarthritis; Translations: [Unspecified osteoarthritis, unspecified site] Onset: 5 11-22-2013 Chronic Other aftercare (2 sources) Encounter for follow-up examination after completed treatment for conditions other than malignant neoplasm; Translations: [Encounter for follow-up examination after completed treatment for conditions other than malignant neoplasm] Onset: 5 Episodic Other aftercare (1 source) Post-discharge follow-up; Translations: [Encounter for follow-up examination after completed treatment for conditions other than malignant neoplasm] 12-04-2024 Episodic Other circulatory disease (2 sources) Pulmonary congestion ; Translations: [Other specified symptoms and signs involving the circulatory and respiratory systems] 11-13-2024 Episodic Other circulatory disease (2 sources) Other specified symptoms and signs involving the circulatory and respiratory systems; Translations: [Other specified symptoms and signs involving the circulatory and respiratory systems] Onset: 5 Episodic Other gastrointestinal disorders (3 sources) Dysphagia; Translations: [Dysphagia, unspecified] Onset: 5 11-13-2024 Episodic Other gastrointestinal disorders (3 sources) Constipation; Translations: [Constipation, unspecified] Onset: 5 11-13-2024 Episodic Other inflammatory condition of skin (3 sources) Psoriasis; Translations: [Psoriasis, unspecified] Onset: 9 11-13-2024 Chronic Other lower respiratory disease (2 sources) Hypercapnia; Translations: [Other abnormalities of breathing] 11-13-2024 Episodic Other lower respiratory disease (2 sources) Other abnormalities of breathing; Translations: [Other abnormalities of breathing] Onset: 5 Episodic Other nervous system disorders (3 sources) Chronic pain syndrome; Translations: [Chronic pain syndrome] Onset: 5 11-21-2024 Chronic Other nervous system disorders (3 sources) Chronic pain; Translations: [Other chronic pain] Onset: 5 11-13-2024 Chronic Other nervous system disorders (1 source) Chronic pain syndrome; Translations: [Chronic pain syndrome] Onset: Chronic Other nutritional; endocrine; and metabolic disorders (5 sources) Obesity; Translations: [Obesity, unspecified] Onset: 9 11-22-2013 Chronic Other screening for suspected conditions (not mental disorders or infectious disease) (8 sources) Electrocardiogram abnormal; Translations: [Abnormal electrocardiogram [ECG] [EKG]] Onset: 5 11-13-2024 Episodic Residual codes; unclassified (2 sources) Edema of extremity; Translations: [Localized edema] 11-13-2024 Episodic Residual codes; unclassified (3 sources) Insomnia; Translations: [Insomnia, unspecified] Onset: 5 11-13-2024 Episodic Residual codes; unclassified (2 sources) Localized edema; Translations: [Localized edema] Onset: 5 Episodic Thyroid disorders (5 sources) Hypothyroidism; Translations: [Hypothyroidism, unspecified] Onset: 9 11-13-2024 Chronic Transient cerebral ischemia (4 sources) Transient cerebral ischemia; Translations: [Transient cerebral ischemic attack, unspecified] Onset: 4 12-16-2023 Chronic Unclassified (1 source) Worsening headaches; Translations: [Worsening headaches] Onset: 5 Past or Other Problems Problem Classification Problem Date Documented Da te Episodic/Chronic Genitourinary symptoms and ill-defined conditions (1 source) Personal history of urinary (tract) infections; Translations: [Personal history of urinary (tract) infections] Onset: 05-05-2024 Episodic Malaise and fatigue (12 sources) Left hemiparesis; Translations: [Weakness] Onset: 12-16-2023 12-16-2023 Episodic Other aftercare (2 sources) Other terminal gauger supervisor (current) drug therapy; Translations: [Other alf (current) drug therapy] Onset: 07-07-2024 Episodic Pneumonia (except that caused by tuberculosis or sexually transmitted disease) (9 sources) Bilateral pneumonia; Translations: [Pneumonia, unspecified organism] Onset: 11-13-2024 Resolved: 11-15-2024 11-13-2024 Episodic Residual codes; unclassified (1 source) Altered mental status, unspecified; Translations: [Altered mental status, unspecified] Onset: 09-08-2024 Episodic Urinary tract infections (1 source) Urinary tract infection, site not specified; Translations: [Urinary tract infection, site not specified] Onset: 09-08-2024 Episodic NEGATED: Highlighted row has not occurred!Residual codes; unclassified (2 sources) Disease Episodic Results Test Name Value Interpretation Reference Range Facility Urinalysis, Completeon 02-23 EPI,SQUAMOUS 0-5 SEEN Normal 5-10 [facility] Comment on above: Order Comment: GRETCHEN TER SPECIMEN Performed By: #### L 400.0001 #### [facility] [address] [place], [place], [id number] BACTERIA 0 SEEN Normal None Seen [facility] Comment on above: Order Comment: GRETCHEN TER SPECIMEN Performed By: #### L 400.0001 #### [facility] [address] [place], [address] Mucus Ql (Urine sed) 0 SEEN Normal [facility] Comment on above: Order Comment: GRETCHEN TER SPECIMEN Performed By: #### L 400.0001 #### [facility] [address] [place], [address] RBC 0 SEEN Normal 0-5 [facility] Comment on above: Order Comment: GRETCHEN TER SPECIMEN Performed By: #### L 400.0001 #### [facility] [address] [place], [address] WBC 0 SEEN Normal 0-5 [facility] Comment on above: Order Comment: GRETCHEN TER SPECIMEN Performed By: #### L 400.0001 #### [facility] [address] [place], [place], [address] CNOVon 02-08-2025 CNOV Office Visit ([facility] ) CARLINE VILLARREAL ([id number]) 1945 F Date Time Provider Department 02/08/25 2:00 PM ANGELINA TRUJILLO [facility] During your visit today, we recorded the following information about you: Pulse Blood pressure 68/minute 117/78 Angelina Trujillo PA-C 02/08/2025 2:41 PM Signed [facility] Follow up CC: Headache Follow up Last Visit: 08/18/24 Assessment AND Plan: Carline Villarreal is a 78 year old female with a history of CVA, migraines,. Her examination demonstrates chronic weakness of the left upper extremity, hyperreflexia in that limb as well. Baseline confusion and difficulty following multistep tasks. Patient presents with family for evaluation of worsening headaches. Patient lives at a group home. Family notes that she has some baseline confusion due to an old stroke about 9 years ago. History is primarily obtained through the family but is very limited. Was told by the nursing facility that she has been complaining of more headaches, has longstanding history of migraines. Patient still describing migraine headaches typically frontal with associated photophobia, phonophobia, nausea and occasional vomiting. No autonomic features, denies any vision changes or jaw claudication. However, due to history limitations as well as possible worsening headaches in a patient above the age of 60 will obtain MRI of the brain as well as CRP and ESR with basic blood work to look for common causes of worsening headaches. Low suspicion for GCA at this time but will continue to monitor. Patient is currently on gabapentin 300 mg twice daily for headache management and has been on this for many years. Discussed increasing this to 600 mg twice a day, it is primarily prescribed through the facility from primary care. Patient and family agreeable to this, new prescription was placed. For abortive relief she is currently on Imitrex, but due to history of stroke this is contraindicated. Will start Nurtec to take with onset of migraine headache. Discussed common side effects and patient is amenable. Encouraged conservative therapy as well. Patient and family agreeable to treatment plan of care at this time, questions were answered. Patient to follow-up should headaches persist in 3 months. Carline was seen today for consult. Diagnoses and all orders for this visit: Worsening headaches - MRI BRAIN WO IVCON; Future - C-REACTIVE PROTEIN; Future - SEDIMENTATION RATE, WESTERGREN; Future - THYROID STIMULATING HORMONE; Future - COMPREHENSIVE METABOLIC PANEL; Future - COMPLETE BLOOD COUNT; Future - VITAMIN B12; Future Weakness - THYROID STIMULATING HORMONE; Future Other orders - rimegepant (NURTEC ODT) 75 mg disintegrating tablet; Take 1 tablet by mouth once daily as needed. - gabapentin (NEURONTIN) 600 mg tablet; Take 1 tablet by mouth two times a day for 90 days. All options for treatment discussed. Preventative:Increase gabapentin to 600mg bid Abortive: nurtec 75mg Imaging: mri brain Labs: CRP, ESR, TSH, CMP, CBC, B12 She should return to see me in 3 months. Today: Patient is here for headache/migraine follow up. Last seen for HDEZ on 08/18/24, lives in a group home. Hx limited. Daily headaches with migraine features. Ordered MRI brain, CRP and ESR. Increased gabapentin to 600mg bid and nurtec. Of note B12 is low. Did not get MRI brain. CT brain showed old lacunar infarct. Telephone encounter on 12/12/24 noting that patient was in the hospital and plavix was stopped. Also gabapentin decreased back down to 300mg bid and added BP med (metoprolol). Since last visit headaches have have somewhat improved but history is very limited. Patient does visit with a rural electrification engineer from the facility but not with any family. Memory is significantly limiting history. Does report that the Nurtec is very helpful when she takes it, does not believe she is running out every month. Banjo Repair Person does believe that she has a least 2-4 headaches in a week but again does not want to have the Nurtec. It is documented that Nurtec has been helpful for her. Tried discussing stopping headaches, recent hospitalization but patient was unsure why this was stopped. Does not remember recent hospitalization in November. Current Headache treatment Preventative: Gabapentin 300mg bid, cymbalta, metoprolol, lexapro, TPM 100mg Abortive: nurtec Medications effective? yes # of doses of abortive medications per month: 8 Prior Therapies Gabapentin Cymbalta Lisinopril Metoprolol Imitrex Percocet TPM Lexapro Nurtec The patient's prior records were reviewed including and lab testing, imaging, and procedures done since their last visit with me. Review of symptoms including constitutional, eyes, ENT, neck, respiratory, cardiovascular, GI, , musculoskeletal, hematologic, oncologic, endocr (more content not included)... Normal [facility] Urine Cultureon 02-08-2025 [facility] Pending Mixed Gram Pos Gram Neg Org Minerva Count 80,000-100,000 MIXC Mixed contaminants. Submit a new specimen if indicated. Normal [facility] Comment on above: Performed By: #### M 100.2200, L4.2010 #### [facility] [address] [place], [address] Urinalysis, Completeon 02-06 EPI,SQUAMOUS 0-5 SEEN Normal 5-10 [facility] Comment on above: Order Comment: SCCAT HETER SPECIMEN Performed By: #### M 100.2200, L400.2010 #### [facility] [address] [place], [address] BACTERIA 0 SEEN Normal None Seen [facility] Comment on above: Order Comment: SCCAT HETER SPECIMEN Performed By: #### M 100.2200, L400.2010 #### [facility] [address] [place], [address] Mucus Ql (Urine sed) 0 SEEN Normal [facility] Comment on above: Order Comment: SCCAT HETER SPECIMEN Performed By: #### M 100.2200, L4.2010 #### [facility] [address] [place], [address] RBC 0 SEEN Normal 0-5 [facility] Comment on above: Order Comment: SCCAT HETER SPECIMEN Performed By: #### M 100.2200, L4.2010 #### [facility] [address] [place], [address] WBC 0 SEEN Normal 0-5 [facility] Comment on above: Order Comment: SCCAT HETER SPECIMEN Performed By: #### M 100.0, L4.2010 #### [facility] [address] [place], [address] Urine Cultureon 12-23-2024 URC Copy of report sent to Infection Control Printer [id number] 12/23/24 103Pablo SHEIKH. Urine Culture Urine Culture ESBL Escherichia coli Minerva Count >100,000 MARKER ESBL producing OrganismA MARKER ESBL producing OrganismA Ampicillin Islt THI >=32 R Ampicillin+Sulbac Islt THI >=32 Cefepime Islt THI 16 R cefTRIAXone Islt THI >=64 R Ciprofloxacin Islt THI >=4 R B-Lactamase Extended Susc Islt POS Gentamicin Islt THI <=1 S levoFLOXacin Islt THI >=8 R Meropenem Islt THI <=0.25 S Nitrofurantoin Islt THI <=16 S Pip+Tazo Islt THI 64 R TMP SMX Islt THI >=320 R ESBL Escherichia coli: REACTION Amikacin Islt THI 2 S Eravacycline Islt THI <=0.12 Imipenem Islt THI <=0.25 S Tobramycin Islt THI <=1 S Normal [facility] Comment on above: Performed By: #### M 100.2200, L400.2010 #### [facility] [address] [place], [address] Urinalysis, Completeon 12-19 RBC 0-5 SEEN Normal 0-5 [facility] Comment on above: Order Comment: GRETCHEN TER SPECIMEN Performed By: #### M 100.2200, L400.2010 #### [facility] [address] [place], [address] BACTERIA 2+ /hpf Normal None Seen [facility] Comment on above: Order Comment: GRETCHEN TER SPECIMEN Performed By: #### M 100.2200, L400.2010 #### [facility] [address] [place], [address] WBC 0-5 SEEN Normal 0-5 [facility] Comment on above: Order Comment: GRETCHEN TER SPECIMEN Performed By: #### M 100.2200, L4.2010 #### [facility] [address] [place], [address] EPI,SQUAMOUS 0 SEEN Normal 5-10 [facility] Comment on above: Order Comment: GRETCHEN TER SPECIMEN Performed By: #### M 100.2200, L400.2010 #### [facility] [address] [place], [address] Mucus Ql (Urine sed) 0 SEEN Normal [facility] Comment on above: Order Comment: GRETCHEN TER SPECIMEN Performed By: #### M 100.2200, L400 #### [facility] [address] [place], [address] [facility] CARLINE VILLARREAL ([id number]) 1945 F Date Time Provider Department 12/12/24 ANGELINA TRUJILLO 4CQ During your visit today, we recorded the following information about you: Safia Frankel 12/12/2024 2:20 PM Signed [facility] called in stating Prior to Glorias previous hospitalization she was on plavix. When she returned she was not on it any more. Wanting Ronnie to review and advise to see if she should still be taking it. Also asking if there is an alternative Neurotec as it is costly. Please call [phone] please ask for 200 bermeo Nurse Angelina Harley, RN 12/13/2024 4:25 PM Signed Called [facility]. Nurse states patient was in the hospital recently and the patient was taken off Cymbalta and the gabapentin was decreased back to 300 mg twice a day. They increased her hydralazine and added blood pressure medications. Nursing is asking if there can be better alternatives to preventing the migraines instead of treating them with Nurtec due to cost. Advised nursing at the [facility] we will have to get her records from the hospital and ask neurology to review. Angelina Harley, RN 12/13/2024 4:25 PM Signed Updated care everywhere, able to pull in hospitalization records. Is neurology able to review and advise the nursing staff questions? Would you like more records from [facility] first? Melonie Isaac OCCA 12/14/2024 3:36 PM Signed TC to patients care facility who verbalized understanding of providers message and will contact prescribing office. LAUREL Abraham Allergies As of Date: 12/12/2024 Noted Allergy Reaction PNEUMOVAX 23 (PNEUMOCOCCAL 23-AIDA*12/30/2012 16 - Unknown Date Reviewed: 08/18/2024 Reviewed by: Angelina Trujillo PA-C - Fully Assessed Reason for Visit: Patient Update [1234] Prescriptions as of 12/14/2024 - acetaminophen (TYLENOL) 325 mg tablet Take 650 mg by mouth every 6 hours as needed for pain. - atorvastatin (LIPITOR) 40 mg tablet Take 40 mg by mouth once daily. - busPIRone (BUSPAR) 5 mg tablet Take 2.5 mg by mouth two times a day. - Bisacodyl (DULCOLAX) 5 mg tab Take 5 mg by mouth as needed for constipation. - cloNIDine HCl (CATAPRES) 0.2 mg tablet Take 0.2 mg by mouth two times a day. - clopidogrel (PLAVIX) 75 mg tablet Take 75 mg by mouth once daily. - DULoxetine (CYMBALTA) 30 mg capsule Take 30 mg by mouth once daily. - famotidine (PEPCID) 20 mg tablet Take 20 mg by mouth once daily. - hydrALAZINE (APRESOLINE) 25 mg tablet Take 25 mg by mouth three times a day as needed. - hydroCHLOROthiazide 25 mg tablet Take 1 tablet by mouth once daily. - escitalopram oxalate (LEXAPRO) 10 mg tablet Take 10 mg by mouth once daily. - metoprolol tartrate, short acting, (LOPRESSOR) 50 mg tablet Take 50 mg by mouth two times a day. - levothyroxine (SYNTHROID) 50 mcg tablet Take 50 mcg by mouth once daily. - rimegepant (NURTEC ODT) 75 mg disintegrating tablet Take 1 tablet by mouth once daily as needed. - gabapentin (NEURONTIN) 600 mg tablet Take 1 tablet by mouth two times a day for 90 days. - topiramate (TOPAMAX) 100 mg tablet TAKE ONE TABLET BY MOUTH EVERY DAY AT BEDTIME - CYCLOBENZAPRINE 10 mg tablet Take 1 tablet by mouth daily at bedtime. - lisinopril 10 mg tablet Take 1 tablet by mouth once daily. - CETIRIZINE HCL (ZYRTEC ORAL) Take by mouth as needed. - aspirin, enteric coated 81 mg EC tablet Take 81 mg by mouth once daily. - donepezil (ARICEPT) 5 mg tablet Take 1 tablet by mouth daily at bedtime. - LORazepam (ATIVAN) 2 mg tab Take 1 tablet by mouth twice daily as needed. - zolpidem (AMBIEN) 10 mg tab Take 1 tablet by mouth at bedtime as needed (for sleep). - oxyCODONE-acetaminophe n (PERCOCET) 5-325 mg tablet Take 1 tablet by mouth every 6 hours as needed for Pain. Problem List As Of Date 12/12/2024 Noted Resolved HTN (hypertension) [I10] Obesity [E66.9] DJD (degenerative joint disease) [M19.90] Encounter Status:Closed by MELONIE ISAAC on 12/14/[address] [facility] 36on 12-04-2024 36 Niya saw patient fo r an office visit today, She would like her to follow up with dr. Hinton in 6 weeks (around 01/15) Patient would like to do a MyChart video visit if allowed. Also the number listed is for the group home patient is staying at, please call that number ( [facility]). Can you please assist with scheduling. Thank you Normal [facility] Office Visiton 12-04-2024 Follow-up visit [id number] Carlos Villarreal 1945 F [facility] Provider Department Center 12/04/2024 [id number] MAGAÑA [facility] None No family history on file Level of Service:18972 LA OFFICE/OUTPATIENT ESTABLISHED MOD MDM 30 MIN Reason for Visit and Comments: Hospital Follow-up [832] Congestive Heart Failure [127] Atrial Fibrillation [80] Normal [facility] Progress Noteon 12-04-2024 Progress Note [facility] - [address] [place] [id number] Dept: [phone] Dept Visit type: Established : 1945 Reason for Visit: Hospital Follow-up, Congestive Heart Failure, and Atrial Fibrillation Assessment and Plan 1. 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 No current heart failure symptoms and euvolemic on physical exam. -Continue Toprol 100 mg p.o. daily -Continue hydralazine 100 mg p.o. 3 times daily -Continue Imdur 30 mg p.o. daily -Continue spironolactone 25 mg p.o. daily (was resumed by SNF) -Not a candidate for RUBIA/ARB/ARNI/SGLT2i due to renal dysfunction (could consider changing/adding at next office visit) -Not currently requiring diuretic therapy 2. Primary hypertension Assessment & Plan: Goal less than 130/80. Controlled. -Continue Toprol 100 mg p.o. daily -Continue hydralazine 100 mg p.o. 3 times daily -Continue Imdur 30 mg p.o. daily - Continue hydrochlorothiazide 25 mg p.o. daily -Continue spironolactone 25 mg p.o. daily 3. Paroxysmal atrial fibrillation (HCC) Assessment & Plan: Noted to have 2 episodes of nonsustained A-fib while hospitalized. She was not placed on OAC due to low A-fib burden, dementia and debility. Remains in sinus rhythm today. -Continue Toprol 100 mg p.o. daily Orders: - ECG 12 lead - CLINIC PERFORMED 4. Elevated troponin Assessment & Plan: Elevated high-sensitivity troponin of 12- 24. 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 No anginal symptoms. Not a candidate for invasive evaluation due to debility and dementia. -No further workup currently needed 5. Stage 3a chronic kidney disease (HCC) Assessment & Plan: Baseline creatinine 1.2-1.4. Peak creatinine 1.65 and did improve during her hospitalization. -Would continue to monitor 6. Hospital discharge follow-up Follow up in about 6 weeks (around 01/15/2025). Subjective History of dementia, diabetes, hypertension, stroke, HFrEF (ischemic versus Takotsubo cardiomyopathy) She was admitted to [facility] November 2024 with shortness of breath. proBNP elevated at 6596. High-sensitivity troponin 12- 24. She was seen by Dr. 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 She was diuresed with IV Lasix and placed on GDMT. She was not felt to be a candidate for invasive evaluation due to dementia and debility. She also had 2 episodes of paroxysmal A-fib and was not placed on anticoagulation due to dementia and debility. She presents today for hospital follow-up. Today, she denies, CP, SOB, PND, orthopnea, edema palpitations, syncope. Her son and daughter in law are present with in in the office today. Carline Villarreal Review of Systems Constitutional: Negative for activity change, chills, diaphoresis, fatigue and fever. HENT: Negative for nosebleeds and trouble swallowing. Eyes: Negative for discharge and visual disturbance. Respiratory: Negative for apnea, cough, chest tightness, shortness of breath and wheezing. Cardiovascular: Positive for leg swelling (chronic left ankle swelling). Negative for chest pain and palpitations. Gastrointestinal: Negative for abdominal distention, abdominal pain, blood in stool, diarrhea, nausea and vomiting. Endocrine: Negative for cold intolerance and heat intolerance. Genitourinary: Negative for hematuria. Musculoskeletal: Negative for gait problem and myalgias. Skin: Negative for color change and rash. Neurological: Negative for dizziness, seizures, syncope, speech difficulty, weakness, light-headedness and numbness. Hematological: Does not bruise/bleed easily. Psychiatric/Behavioral : Positive for confusion (dementia). Negative for dysphoric mood. Allergies[1] Current Medications[2] Medical History[3] Social History Tobacco Use Smoking status: Some Days Types: Cigarettes Smokeless tobacco: Not on file Substance Use Topics Alcohol use: Not Currently Surgical History[4] Family History[5] Objective Vitals: 12/04/24 1359 BP: 128/76 BP Location: Right arm Patient Position: Sitting BP Cuff Size: Adult Pulse: 78 Height: 5' 5 (1.651 m) Physical Exam Vitals reviewed. Constitutional: Appearance: Normal appearance. HENT: Head: Normocephalic and atraumatic. Mouth/Throat: Mouth: Mucous membranes are moist. Pharynx: Oropharynx is clear. Eyes: General: No scleral icterus. Extraocular Movements: Extraocular movements intact. Neck: Vascular: No carotid bruit, hepatojugular reflux or JVD. Cardiovascular: Rate and Rhythm: Normal rate and regular rhythm. Pulses: Normal pulses. Heart sounds: Normal heart sounds, S1 normal and S2 normal. No m (more content not included)... Normal [facility] Progress Note Baseline creatinine 1.2-1.4. Peak creatinine 1.65 and did improve during her hospitalization. -Would continue to monitor Normal [facility] Progress Note Elevated high-sensitivity troponin of 12- 24. 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 No anginal symptoms. Not a candidate for invasive evaluation due to debility and dementia. -No further workup currently needed Normal [facility] Progress Note Noted to have 2 episodes of nonsustained A-fib while hospitalized. She was not placed on OAC due to low A-fib burden, dementia and debility. Remains in sinus rhythm today. -Continue Toprol 100 mg p.o. daily Normal [facility] Progress Note Goal less than 130/8 0. Controlled. -Continue Toprol 100 mg p.o. daily -Continue hydralazine 100 mg p.o. 3 times daily -Continue Imdur 30 mg p.o. daily - Continue hydrochlorothiazide 25 mg p.o. daily -Continue spironolactone 25 mg p.o. 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 No current heart failure symptoms and euvolemic on physical exam. -Continue Toprol 100 mg p.o. daily -Continue hydralazine 100 mg p.o. 3 times daily -Continue Imdur 30 mg p.o. daily -Continue spironolactone 25 mg p.o. daily (was resumed by [facility]) -Not a candidate for RUBIA/ARB/ARNI/SGLT2i due to renal dysfunction (could consider changing/adding at next office visit) -Not currently requiring diuretic therapy Normal [facility] CBC-Complete Blood Cnt No Di ffon 11-29-2024 Erythrocyte distribution width (RBC) [Ratio] 14.9 % High 11.6-14.6 [facility] Comment on above: Order Comment: 303-2 Performed By: #### M .2199, #### [facility] [address] [place], [place], [id number] Hematocrit (Bld) [Volume fraction] 37.9 % Normal 37-47 [facility] Comment on above: Order Comment: 303-2 Performed By: #### M 100.0, #### [facility] [address] [place], [address] Hemoglobin (Bld) [Mass/Vol] 12.3 g/dL Normal 12.0-15.0 [facility] Comment on above: Order Comment: 303-2 Performed By: #### M 100.2199, #### [facility] [address] [place], [address] MCH (RBC) [Entitic mass] 32.6 pg High 27.0-32.0 [facility] Comment on above: Order Comment: 303-2 Performed By: #### M 100.2199, L4.2010 #### [facility] [address] [place], [address] MCHC (RBC) [Mass/Vol] 32.5 g/dL Normal 32-[address] [facility] Comment on above: Order Comment: 303-2 Performed By: #### M , L4 #### [facility] [address] [place], [address] MCV (RBC) [Entitic vol] 100.5 fL High 81-99 [facility] Comment on above: Order Comment: 303-2 Performed By: #### M , L4 #### [facility] [address] [place], [address] Platelet mean volume (Bld) [Entitic vol] 11.3 fL Normal 6.2-12.0 [facility] Comment on above: Order Comment: 303-2 Performed By: #### M , L4 #### [facility] [address] [place], [address] Platelets (Bld) [#/Vol] 232 10*3/uL Normal 150-450 [facility] Comment on above: Order Comment: 303-2 Performed By: #### M , L4 #### [facility] [address] [place], [address] RBC (Bld) [#/Vol] 3.77 10*6/uL Low 4.2-5.4 [facility] Comment on above: Order Comment: 303-2 Performed By: #### M , L4 #### [facility] [address] [place], [address] RDW SD 54.6 fl High 35.1-43.9 [facility] Comment on above: Order Comment: 303-2 Performed By: #### M 100.0, L400 #### [facility] [address] [place], [address] WBC (Bld) [#/Vol] 6.6 10*3/uL Normal 4.4-11.0 [facility] Comment on above: Order Comment: 303-2 Performed By: #### M .2199, L4 #### [facility] [address] [place], [address] Comprehensive Metabolic Prof ilon 11-29-2024 Albumin [Mass/Vol] 3.6 g/dL Normal 3.4-4.8 [facility] Comment on above: Order Comment: 303-2 Performed By: #### M .2199, L4 #### [facility] [address] [place], [address] Albumin/Globulin [Mass ratio] 1.5 {ratio} Normal 0.9-2.4 [facility] Comment on above: Order Comment: 303-2 Performed By: #### M .2199, L4 #### [facility] [address] [place], [address] ALK PHOS 89 U/L Normal 35-104 [facility] Comment on above: Order Comment: 303-2 Performed By: #### M 100.2199, L4 #### [facility] [address] [place], [address] ALT [Catalytic activity/Vol] 32 U/L Normal <=34 [facility] Comment on above: Order Comment: 303-2 Performed By: #### M 100.2199, L4 #### [facility] [address] [place], [address] AST [Catalytic activity/Vol] 29 U/L Normal <=31 [facility] Comment on above: Order Comment: 303-2 Performed By: #### M .2199, .2010 #### [facility] [address] [place], [address] Bilirubin [Mass/Vol] 0.39 mg/dL Normal 0.00-1.30 [facility] Comment on above: Order Comment: 303-2 Performed By: #### M , #### [facility] [address] [place], [address] BUN/CRE 20.3 RATIO High 10-20 [facility] Comment on above: Order Comment: 303-2 Performed By: #### M , #### [facility] [address] [place], [address] Calcium [Mass/Vol] 9.3 mg/dL Normal 7.6-11.0 [facility] Comment on above: Order Comment: 303-2 Performed By: #### M , L4 #### [facility] [address] [place], [address] Chloride [Moles/Vol] 108 mmol/L Normal 98-108 [facility] Comment on above: Order Comment: 303-2 Performed By: #### M , L4 #### [facility] [address] [place], [address] CO2 [Moles/Vol] 19.8 mmol/L Low 21.0-32.0 [facility] Comment on above: Order Comment: 303-2 Performed By: #### M , L4 #### [facility] [address] [place], [address] Creatinine [Mass/Vol] 1.16 mg/dL Normal 0.70-1.[address] [facility] Comment on above: Order Comment: 303-2 Performed By: #### M , #### [facility] [address] [place], [address] GAP 12 Normal 5-15 [facility] Comment on above: Order Comment: 303-2 Performed By: #### M , #### [facility] [address] [place], [address] GFR/1.73 sq M.predicted among non-blacks MDRD (S/P/Bld) [Vol rate/Area] 48 mL/min/{1.73_m2} Low >60 [facility] Comment on above: Order Comment: 303-2 Result Comment: mL/m in/1.73m2 CKD-EPI Creatinine Equation (2020) Performed By: #### M , #### [facility] [address] [place], [address] Globulin (S) [Mass/Vol] 2.4 g/dL Normal 2.2-4.2 [facility] Comment on above: Order Comment: 303-2 Performed By: #### M , #### [facility] [address] [place], [address] Glucose [Mass/Vol] 120 mg/dL High 70-99 [facility] Comment on above: Order Comment: 303-2 Performed By: #### M , L4 #### [facility] [address] [place], [address] Potassium [Moles/Vol] 4.3 mmol/L Normal 3.3-5.[address] [facility] Comment on above: Order Comment: 303-2 Performed By: #### M , L4 #### [facility] [address] [place], [address] Sodium [Moles/Vol] 140 mmol/L Normal 133-145 [facility] Comment on above: Order Comment: 303-2 Performed By: #### M 100.2200, L400.2010 #### [facility] [address] [place], [address] T PROT 5.9 g/dL Normal 5.9-8.4 [facility] Comment on above: Order Comment: 303-2 Performed By: #### M 100.2200, L400.2010 #### [facility] [address] [place], [address] Urea nitrogen [Mass/Vol] 24 mg/dL High 4-19 [facility] Comment on above: Order Comment: 303-2 Performed By: #### M 100.2200, L400.2010 #### [facility] [address] [place], [address] 30on 11-21-2024 30 Problem: Knowledge Deficit Goal: Patient/family/caregiv er demonstrates understanding of disease process, treatment plan, medications, and discharge instructions Outcome: Progressing Problem: Potential for Compromised Skin Integrity Goal: Skin Integrity is Maintained or Improved Outcome: Progressing Normal [facility] [id number] 11-21-2024 [id number] Next Site of Care Admission Date: 11/13/2024 10:39 AM Patient Name: CARLINE VILLARREAL Location: [address]/[facility] [id number] Date of : 1945 ---- Placement Information ---- Referral Type:Detention ICF - Return Referral ID:[id number] [facility] Address 1:[address] [place] [address] Address 2: City:[place] Selection Factors:Returning to Facility State:[place] [facility] [phone] Discharge med list [facility] per [facility] request. [facility] [phone] Patient has discharg e order in and transport confirmed for 1600 back to [facility]. Facility and bedside nurse updated. [facility] BASIC METABOLIC PANELon 05-2 Anion gap [Moles/Vol] 13 mmol/L Normal 3-13 [facility] Comment on above: Performed By: #### L AB15 ####Aquatic Ecologist: FREEMAN DOUGHERTY ([id number])[facility] [place] [address] Calcium [Mass/Vol] 8.8 mg/dL Normal 8.8-10.0 [facility] Comment on above: Performed By: #### L AB15 ####Aquatic Ecologist: FREEMAN DOUGHERTY ([id number])[facility] ([facility])[address] Chloride [Moles/Vol] 104 mmol/L Normal 98-107 [facility] Comment on above: Performed By: #### L AB15 ####Aquatic Ecologist: FREEMAN DOUGHERTY ([id number])[facility] ([facility])[address] CO2 [Moles/Vol] 21 mmol/L Low 23-31 [facility] Comment on above: Performed By: #### L AB15 ####Aquatic Ecologist: FREEMAN DOUGHERTY ([id number])[facility] ([facility])[address] Creatinine [Mass/Vol] 1.17 mg/dL High 0.57-1.11 [facility] Comment on above: Performed By: #### L AB15 ####Aquatic Ecologist: FREEMAN DOUGHERTY ([id number])[facility] ([facility])[address] [place] [address] [place] GLOMERULAR FILTRATION RATE ML/MIN/1.73 SQ M.PREDICTED 47.9 mL/min/1.73m*2 Low >60.0 [facility] Comment on above: Result Comment: Calc ulation based on the Chronic Kidney Disease Epidemiology Collaboration (CKD-EPI) equation refit without adjustment for race Performed By: #### L AB15 ####Aquatic Ecologist: FREEMAN DOUGHERTY ([id number])[facility] ([facility])[address] [place] [address] [place] Glucose [Mass/Vol] 123 mg/dL High 82-115 [facility] Comment on above: Performed By: #### L AB15 ####Aquatic Ecologist: FREEMAN DOUGHERTY ([id number])[facility] ([facility])[address] [place] [address] [place] Potassium [Moles/Vol] 3.7 mmol/L Normal 3.5-5.1 [facility] Comment on above: Result Comment: [facility] potassium values may be up to 0.5 mmol/L lower than serum values. Performed By: #### L AB15 ####Aquatic Ecologist: FREEMAN DOUGHERTY ([id number])[facility] ([facility])[address] Sodium [Moles/Vol] 138 mmol/L Normal 136-145 [facility] Comment on above: Performed By: #### L AB15 ####Aquatic Ecologist: FREEMAN DOUGHERTY ([id number])[facility] ([facility])[address] Urea nitrogen [Mass/Vol] 29 mg/dL High 9-23 [facility] Comment on above: Performed By: #### L AB15 ####Aquatic Ecologist: FREEMAN DOUGHERTY ([id number])[facility] ([facility])[address] [place] [address] Basic metabolic 1998 panelon 11-21-2024 Anion gap [Moles/Vol] 13 mmol/L 3 - 13 mmol/L [facility] Calcium [Mass/Vol] 8.8 mg/dL 8.8 - 10. 0 mg/dL [facility] Chloride [Moles/Vol] 104 mmol/L 98 - 10 7 mmol/L [facility] CO2 [Moles/Vol] 21 mmol/L Low 23 - 31 mmol/L [facility] Creatinine [Mass/Vol] 1.17 mg/dL High 0.57 - 1.11 mg/dL [facility] GFR/1.73 sq M.predicted (S/P/Bld) [Vol rate/Area] 47.9 mL/min Low - PINF [facility] Glucose [Mass/Vol] 123 mg/dL High 82 - 115 mg/dL [facility] Interpretation and review of laboratory results Abnormal [facility] Potassium [Moles/Vol] 3.7 mmol/L 3.5 - 5.1 mmol/L [facility] Sodium [Moles/Vol] 138 mmol/L 136 - 145 mmol/L [facility] Urea nitrogen [Mass/Vol] 29 mg/dL High 9 - 23 mg/dL [facility] CBC W Auto Differential pane l (Bld)on 11-21-2024 Basophils (Bld) [#/Vol] 0 10*3/uL 0.0 - 0.2 10*3/uL [facility] Basophils/100 WBC (Bld) 0.4 % 0.0 - 2.0 % [facility] Eosinophils (Bld) [#/Vol] 0.7 10*3/uL High 0.0 - 0.5 10*3/uL [facility] Eosinophils/100 WBC (Bld) 6.9 % High 0.0 - 6.0 % [facility] Erythrocyte distribution width (RBC) [Ratio] 15 % 11.5 - 15.0 % [facility] Hematocrit (Bld) [Volume fraction] 43.4 % 35.0 - 47.0 % [facility] Hemoglobin (Bld) [Mass/Vol] 14.2 g/dL 11.7 - 16.0 g/dL [facility] Immature granulocytes (Bld) [#/Vol] 0.1 10*3/uL High NINF - 0.1 10*3/uL [facility] Immature granulocytes/100 WBC (Bld) 0.5 % 0.0 - 2.0 % [facility] Interpretation and review of laboratory results Abnormal [facility] Lymphocytes (Bld) [#/Vol] 1.7 10*3/uL 1.0 - 4.3 10*3/uL [facility] Lymphocytes/100 WBC (Bld) 16.6 % 15.0 - 45.0 % [facility] MCH (RBC) [Entitic mass] 31.7 pg 26.0 - 34.0 pg [facility] MCHC (RBC) [Mass/Vol] 32.7 % 30.5 - 36.0 % [facility] MCV (RBC) [Entitic vol] 96.9 fL 77.0 - 99.0 fL [facility] Monocytes (Bld) [#/Vol] 0.9 10*3/uL 0.0 - 0.9 10*3/uL [facility] Monocytes/100 WBC (Bld) 8.8 % 5.0 - 13.0 % [facility] Neutrophils (Bld) [#/Vol] 6.8 10*3/uL 1.8 - 7.5 10*3/uL [facility] Neutrophils/100 WBC (Bld) 66.8 % 38.0 - 82.0 % [facility] Nucleated RBC/100 WBC (Bld) [Ratio] 0 % [facility] Platelet mean volume (Bld) [Entitic vol] 11.7 fL 9.0 - 12.7 fL [facility] Platelets (Bld) [#/Vol] 312 10*3/uL 140 - 440 10*3/uL [facility] RBC (Bld) [#/Vol] 4.48 10*6/uL 3.80 - 5.2 0 10*6/uL [facility] WBC (Bld) [#/Vol] 10.2 10*3/uL 3.6 - 10.7 10*3/uL [facility] CBC WITH AUTO DIFFERENTIALon 11-21-2024 Basophils (Bld) [#/Vol] 0.0 10*3/uL Normal 0.0-0.2 [facility] Comment on above: Performed By: #### L [id number] ####Aquatic Ecologist: FREEMAN DOUGHERTY ([id number])[facility] ([facility])[address] [place] [address] Basophils/100 WBC (Bld) 0.4 % Normal 0.0-2.0 [facility] Comment on above: Performed By: #### L [id number] ####Aquatic Ecologist: FREEMAN DOUGHERTY ([id number])[facility] ([facility])[address] [place] [address] Eosinophils (Bld) [#/Vol] 0.7 10*3/uL High 0.0-0.5 [facility] Comment on above: Performed By: #### L [id number] ####Aquatic Ecologist: FREEMAN DOUGHERTY ([id number])[facility] ([facility])[address] [place] [address] [place] Eosinophils/100 WBC (Bld) 6.9 % High 0.0-6.0 [facility] Comment on above: Performed By: #### L [id number] ####Aquatic Ecologist: FREEMAN DOUGHERTY ([id number])[facility] ([facility])[address] Erythrocyte distribution width (RBC) [Ratio] 15.0 % Normal 11.5-15.0 [facility] Comment on above: Performed By: #### L [id number] ####Aquatic Ecologist: FREEMAN MURPHYMICHAEL ([id number])[facility] ([facility])[address] Hematocrit (Bld) [Volume fraction] 43.4 % Normal 35.0-47.0 [facility] Comment on above: Performed By: #### L [id number] ####Aquatic Ecologist: FREEMAN MURPHYMICHAEL ([id number])[facility] ([facility])[address] [place] [address] Hemoglobin (Bld) [Mass/Vol] 14.2 g/dL Normal 11.7-16.0 [facility] Comment on above: Performed By: #### L [id number] ####Aquatic Ecologist: FREEMAN DOUGHERTY ([id number])[facility] ([facility])[address] IMMATURE GRANS % 0.5 % Normal 0.0-2.[address] [facility] Comment on above: Performed By: #### L [id number] ####Aquatic Ecologist: FREEMAN MURPHYMICHAEL ([id number])[facility] ([facility])[address] [place] [address] IMMATURE GRANS ABSOLUTE 0.1 10*3/uL High <0.1 [facility] Comment on above: Performed By: #### L [id number] ####Aquatic Ecologist: FREEMAN DOUGHERTY ([id number])[facility] ([facility])[address] Lymphocytes (Bld) [#/Vol] 1.7 10*3/uL Normal 1.0-4.3 [facility] Comment on above: Performed By: #### L [id number] ####Aquatic Ecologist: FREEMAN DOUGHERTY ([id number])[facility] ([facility])[address] Lymphocytes/100 WBC (Bld) 16.6 % Normal 15.0-45.0 [facility] Comment on above: Performed By: #### L [id number] ####Aquatic Ecologist: FREEMAN DOUGHERTY ([id number])[facility] ([facility])[address] MCH (RBC) [Entitic mass] 31.7 pg Normal 26.0-34.0 [facility] Comment on above: Performed By: #### L [id number] ####Aquatic Ecologist: FREEMAN DOUGHERTY ([id number])[facility] ([facility])[address] MCHC 32.7 % Normal 30.5-36.0 [facility] Comment on above: Performed By: #### L [id number] ####Aquatic Ecologist: FREEMAN DOUGHERTY ([id number])[facility] ([facility])[address] MCV (RBC) [Entitic vol] 96.9 fL Normal 77.0-99.0 [facility] Comment on above: Performed By: #### L [id number] ####Aquatic Ecologist: FREEMAN DOUGHERTY ([id number])[facility] ([facility])[address] [place] [address] Monocytes (Bld) [#/Vol] 0.9 10*3/uL Normal 0.0-0.9 [facility] Comment on above: Performed By: #### L [id number] ####Aquatic Ecologist: FREEMAN DOUGHERTY ([id number])[facility] ([facility])[address] Monocytes/100 WBC (Bld) 8.8 % Normal 5.0-13.0 [facility] Comment on above: Performed By: #### L [id number] ####Aquatic Ecologist: FREEMAN DOUGHERTY ([id number])[facility] ([facility])[address] NEUTROPHILS ABSOLUTE 6.8 10*3/uL Normal 1.8-7.5 [facility] Comment on above: Performed By: #### L [id number] ####Aquatic Ecologist: FREEMAN DOUGHERTY ([id number])[facility] ([facility])[address] Neutrophils/100 WBC (Bld) 66.8 % Normal 38.0-82.0 [facility] Comment on above: Performed By: #### L [id number] ####Aquatic Ecologist: FREEMAN DOUGHERTY ([id number])[facility] ([facility])[address] NRBC 0.0 /100 WBCs Normal 0.0-2.0 [facility] Comment on above: Performed By: #### L [id number] ####Aquatic Ecologist: FREEMAN DOUGHERTY ([id number])[facility] ([facility])[address] Platelet mean volume (Bld) [Entitic vol] 11.7 fL Normal 9.0-12.7 [facility] [facility] Comment on above: Performed By: #### L [id number] ####Aquatic Ecologist: FREEMAN DOUGHERTY ([id number])[facility] ([facility])[address] [place] [address] Platelets (Bld) [#/Vol] 312 10*3/uL Normal 140-440 [facility] Comment on above: Performed By: #### L [id number] ####Aquatic Ecologist: FREEMAN DOUGHERTY ([id number])[facility] ([facility])[address] RBC (Bld) [#/Vol] 4.48 10*6/uL Normal 3.80-5.20 [facility] Comment on above: Performed By: #### L [id number] ####Aquatic Ecologist: FREEMAN DOUGHERTY ([id number])[facility] ([facility])[address] WBC (Bld) [#/Vol] 10.2 10*3/uL Normal 3.6-10.7 [facility] Comment on above: Performed By: #### L [id number] ####Aquatic Ecologist: FREEMAN DOUGHERTY ([id number])[facility] ([facility])[address] Laboratory - Chemistry and C hemistry - challengeon 11-21-2024 Glucose [Mass/Vol] 140 mg/dL High 70 - 100 mg/dL [facility] Glucose [Mass/Vol] 123 mg/dL High 70 - 100 mg/dL [facility] No Panel Informationon 11-21 Interpretation and review of laboratory results Abnormal [facility] Interpretation and review of laboratory results Abnormal [facility] Nursing Noteon 11-21-2024 Nursing Note Call placed to patients son to update status of bulk picker. Transportation on site to bulk picker patientMarkos Pillai notified. Normal [facility] Nursing Note [facility] No questions at this time. Normal [facility] Nursing Note Call placed to patients son, Rosas to notify of bulk picker time. Rosas confirmed that patients dentures and wheelchair are at the facility. No questions at this time. Normal [facility] Nursing Note Wound Care consulted for Pressure Injury Prevention. Pt's Troy score= 15 on 11/20 Pt refused assessment of pressure points at this time, stating, I don't have anything wrong with my skin. Attempted to provide education regarding pressure injury prevention, but pt not receptive and continued to state, I don't have anything. Pt currently followed by Wound [facility] group for MASD to bilateral buttocks. For bilateral buttocks MASD assessment please see Wound/Ostomy OILER [facility] progress notes. Prevention Measures in place, including: Pillows/wedges, Heels elevated off bed on pillows, Zinc/Moisture Barrier ointment (ET mix also noted at bedside), Waffle chair cushion (obtain for pt once getting out of bed to chair). Skin Care precaution order set ordered. Dietitian electronic train control technician involved. PT/OT consult in place. Will continue to follow pt. Please secure chat for any questions or concerns. Maribeth Handley RN Normal [facility] Progress Noteon 11-21-2024 Progress Note OCCUPATIONAL THERAPY [facility] Treatment Note Name/MRN: Carline Villarreal ([id number]) Date of : 1945 Age: 78 y.o. Room/Bed: B4-466/B4466 A Visit #: 4 out of 7 Discharge Recommendation: Assisted Facility Equipment Needed: No Assessment Pt is making gradual progress with OT this date with focus on ADLs and standing bal with pt overall at a min A to max A level with pt limited from decrease strength and bal. Pt remains well below baseline and is a high fall risk. Pt would benefit from ongoing skilled OT tx with OT recommend SNF level therapy at discharge. Subjective Pt supine in bed upon arrival and agreeable to OT tx. Pain: Pt denies any current pain. Medical Precautions: No active isolations Proper PPE donned/doffed in accordance with facility standards. Fall Risk: Oleary Fall Risk Score: 60 (High Risk) Precautions/Restrictio ns: Fall Precautions Decreased (L) LE WB and increased tone in standing, dementia Family/Caregiver Present: none Objective ADLs LE Dressing: Max Assist Grooming: Min Assist Pt training for donning socks with max A to dep to complete with cues for safety and tech with difficulty reaching to manage. Pt completed grooming while seated with setup with one hand techs due to LUE weakness. Bed Mobility Supine to sit: Max Assist Sit to supine: Max Assist HOB Elevated Use of bed rail(s) Assist provided for trunk and BLE Transfers/Mobility Sit to stand: Max Assist Stand to sit: Max Assist Standing balance: Max Assist Pt training for transfers to FWW with cues for tech and safety with pt needing to pull up on walker to complete. Pt completed static standing with heavy max A and retro lean noted with pt only able to mounika 15 sec intervals. Pt completed sitting with functional tasks with SBA. Device(s) used: Front wheeled walker Cognition - WFL Plan Continue acute OT per plan of care. Safety/Education Safety Safety Devices in place: All fall risk precautions in place, call light within reach, left in bed, bed alarm in place, gait belt, patient at risk for falls, and nurse notified Restraints: No Education Education Given To: patient Education Provided: Precautions, ADL Adaptive Strategies, Transfer Training, and Fall Prevention Education Education Method: Verbal and Demonstration Barriers to Learning: None Education Outcome: Verbalized Understanding and Continued Education Needed AM-PAC AM-PAC Inpatient Daily Activity Raw Score: 13 ADL Inpatient CMS G-Code Modifier: CL Goals Patient Stated Goal: to get stronger Encounter Problems Encounter Problems (Active) Dressing Upper Extremities Patient will complete upper body dressing SBA (Not Addressed) Start: 11/15/24 Expected End: 11/25/24 Dressings Lower Extremities Patient will dress lower body MIN A (Slowly Progressing) Start: 11/15/24 Expected End: 11/25/24 Mobility Patient will demonstrate functional mobility with MOD A and FWW (Not Addressed) Start: 11/15/24 Expected End: 11/25/24 Therapeutic Exercise Pt will demo good participation in BUE exercises to increase endurance and strength for participation in ADLs and functional transfers / bed mobility. (Not Addressed) Start: 11/15/24 Expected End: 11/25/24 Toileting Patient will complete toileting tasks at bedside commode with mod assist. (Not Addressed) Start: 11/15/24 Expected End: 11/25/24 Transfers Patient will complete functional transfer with rolling walker with mod assist in order to prepare for ambulation. (Progressing) Start: 11/15/24 Expected End: 11/25/24 Patient will perform bed mobility with supervision in order to improve independence and prepare for out of bed mobility. (Progressing) Start: 11/15/24 Expected End: 11/25/24 Therapy Time Individual Co-treatment Time In 1338 Time Out 1402 Minutes 24 Timed Code Treatment Minutes: 24 Minutes (1 ADL, 1 ACT) FABI Deal/Nicole [facility] Progress Note Speech-Language Pathology SPEECH LANGUAGE PATHOLOGY [facility] Dysphagia Treatment Note Patient Name: Carline Villarreal Evaluation Date: 11/21/2024 Date of : 1945 Admission Date: 11/13/2024 10:39 AM Age: 78 y.o. Room/Bed: B4466/B4466 A Subjective Patient alert and cooperative. Seen upright in bed. Answers all basic questions with strong vocal quality. Follows all basic commands. No visitors at bedside. Spoke with RN Josey who cleared pt for treatment. Current Diet: Dietary Orders (From admission, onward) Start Ordered 11/18/24 1156 Adult diet Dysphagia - Pureed Diet effective now Question: Diet type Answer: Dysphagia - Pureed 11/18/24 1155 Aspiration Precautions: - Upright positioning for all PO intake - Slow rate of intake - Small bites/sips - Alternate solid and liquids Oxygen: Oxygen Therapy: None (Room air) Pain: RN managing pain. PPE Worn: gloves Objective & Assessment Dysphagia Treatment # of Activities: 1 Dysphagia Activity 1: Assess dietary tolerance Patient consumes thin liquids via cup edge with timely swallow and no change in vocal quality or cough is noted. When consuming puree, soft+ bite sized, and easy to chew solids, patient presents with adequate bolus management and mastication. Minimal oral residue is noted with easy to chew solids but, clears with a liquid wash. Patients swallow presents timely and effective for all solids. Patient does present edentulous at bedside, this does prolong her mastication, but her mastication still presents complete and effective. Plan & Recommendations Plan: ST to follow safe and effective dietary tolerance. Continue acute TECHNICAL ASST therapy per initial plan of care and established goals. Recommend Easy to chew solids and Thin liquids and meds as tolerated and the following precautions: - Upright positioning for all PO intake - Slow rate of intake - Small bites/sips - Alternate solid and liquids D/C Recommendations: to be determined Education Education Given: swallowing strategies, diet recommendations Given To: patient and RN Response: verbalizes understanding Goals Patient Stated Goal: To watch tv. Encounter Problems Encounter Problems (Active) Swallowing Patient will tolerate the least restrictive diet consistency to allow for safe consumption of daily meals (Progressing) Start: 11/17/24 Expected End: 11/24/24 Patient will demonstrate safe swallowing Intervention/technique s (Progressing) Start: 11/17/24 Expected End: 11/24/24 Therapy Time TECHNICAL ASST Individual Minutes Time In: 919 Time Out: 929 Minutes: 10 Jasmyn Vines CCC-TECHNICAL ASST Normal [facility] Progress Note [facility] Geriatric Medicine Inpatient Consult Service Admission Date: 11/13/2024 Assessment Principal Problem: Acute exacerbation of chronic heart failure (HCC) Plan Acute Metabolic Encephalopathy --Etiology likely EDWIGE/uremia (improving), possible infection, hospital environment, CHF exacerbation --Leukocytosis resolved. UA not obtained. --Continue to treat underlying cause --Encourage PO intake, time up in chair, family visits, and sleep hygiene --If agitated, assess for and consider treating for pain --QTc= 566 --Avoid antipsychotics due to prolonged qtc. --Continue scheduled melatonin at HS --Monitor for constipation/urinary retention - last BM 11/20 --Possible medication contributions: gabapentin, percocet (last received 11/15) --11/21: Improving. Continue to monitor for signs/symptoms of infection. Dementia --Lives in [facility] facility --History of stroke with worsening cognitive decline. --Try to avoid anticholinergic medications --11/21: May still not be at baseline. Continue plan. Debility --Contributing factors include stroke, Dementia, Chronic pain, heart failure --nathan lift and use of wheelchair at baseline --PT and OT --Anticipate return to [facility] when medically stable --11/21: Stable. Anticipate SNF level at discharge. Bipolar Disorder Anxiety --takes Lexapro 5mg daily at facility - was being weaned there. We did not restart in hospital. Continue off medication at this time, especially in setting of prolonged qtc --Continue Duloxetine 30mg daily --Continue Buspar 2.5mg BID (being weaned at facility) --11/21: Stable. Recommend NOT resuming Lexapro at discharge. Chronic pain --Takes Oxycodone-Acetaminophe n 5/325 mg 1 tab every 8 hours as needed at facility. Takes 1 tab every few days. Currently ordered. --Home dose of Gabapentin 600mg BID. --11/16: Gabapentin was increased from 300 mg BID to 400 mg BID --11/17: Gabapentin lowered to 200 mg BID due to EDWIGE. --11/20: EDWIGE resolved. Gabapentin increased back to 300 mg BID. --11/21: Continue Gabapentin 300mg BID. Appears to be tolerating today. If she continues to tolerate this dose and renal function is stable, then recommend she be discharged on the 300 mg BID. OK to discharge to SNF from geriatric perspective once cleared by primary Follow-up: will follow with you Subjective Chief Complaint: I am at the group home Geriatrics consulted for confusion restless with underlying dementia with prolonged qtc HPI- The patient is known to me. 78 y.o. year-old female with past medical history of dementia, cerebral vascular disease (with left sided weakness), hypertension, CKD, bipolar disorder, hypothyroidism, gout, migraines who was admitted to acute care from alf care on 11/13/24 for shortness of breath/cough/hypoxia. Diagnosed with acute hypoxic and hypercapnic respiratory failure due to acute CHF. Cardiology following. ECHO 11/14 with EF 35%. Findings consistent with Takotsubo vs CAD. Developed EDWIGE. She has been dealing with delirium. Developed fever 11/17 and tachycardia which improved. Has had Leukocytosis. Blood cultures negative. UA with reflex to urine culture ordered to be obtained. Labs today: WBC 10.2 Hgb 14.2 Na 138 K 3.7 BUN 29 creat 1.17 Interval History: Remains on telemetry. -Patient watching TV. She states she is in the group home. States she is here to have fun. Reports she did not eat breakfast. Reports pain is not bad. -Nursing reports patient is more alert. Took meds whole without difficulty. No overnight events. They have been unable to obtain urine due to incontinence. Primary decided not to straight cath. Seen by PT. Bed exercises. Recommending short term SNF for rehab. Review of Systems Reason unable to perform ROS: limited due to Dementia. Constitutional: Negative for fatigue. Respiratory: Negative for shortness of breath. Cardiovascular: Negative for chest pain. Gastrointestinal: Negative for abdominal pain. Genitourinary: Negative for dysuria. Musculoskeletal: Negative for arthralgias. Psychiatric/Behavioral : Negative for sleep disturbance. Objective BP (!) 161/89 (BP Location: Right arm, Patient Position: Lying) Pulse 79 Temp 36.3 ?C (97.4 ?F) (Temporal) Resp 18 Ht 5' 5 (1.651 m) Wt 210 lb (95.3 kg) SpO2 98% BMI 34.95 kg/m? Intake/Output Summary (Last 24 hours) at 11/21/2024 0854 Last data filed at 11/20/2024 1729 Gross per 24 hour Intake 360 ml Output -- Net 360 ml Wt Readings from Last 3 Encounters: 11/14/24 210 lb (95.3 kg) 12/17/23 205 lb (93 kg) Current Medications[1] Physical Exam Vitals reviewed. Constitutional: General: She is not in acute distress. Comments: Alert, sitting up in bed watching TV HENT: Head: Normocephalic and atraumatic. Cardiovascular: Rate and Rhythm: Normal rate. Rhythm irregular. Pulmonary: Effort: Pulmonary effort is normal. No respirat (more content not included)... Normal [facility] 30on 11-20-2024 30 Problem: Knowledge Deficit Goal: Patient/family/caregiv er demonstrates understanding of disease process, treatment plan, medications, and discharge instructions Outcome: Progressing Problem: Potential for Compromised Skin Integrity Goal: Skin Integrity is Maintained or Improved Outcome: Progressing Normal [facility] [id number] 11-20-2024 [id number] Patient remains on 4 S. Discharge to SNF cancelled on 11/17 due to low grade fever, tachycardia, and leukocytosis. Blood cultures obtained and are negative. No growth in 48 hours. CM following to assist with discharge back to [facility]. Normal [facility] BASIC METABOLIC PANELon 05- Anion gap [Moles/Vol] 11 mmol/L Normal 3-13 [facility] Comment on above: Performed By: #### L [id number] ####Aquatic Ecologist: FREEMAN DOUGHERTY ([id number])[facility] ([facility])[address] Calcium [Mass/Vol] 8.7 mg/dL Low 8.8-10.0 [facility] Comment on above: Performed By: #### L [id number] ####Aquatic Ecologist: FREEMAN DOUGHERTY ([id number])[facility] ([facility])[address] Chloride [Moles/Vol] 106 mmol/L Normal 98-107 [facility] Comment on above: Performed By: #### L [id number] ####Aquatic Ecologist: FREEMAN DOUGHERTY ([id number])[facility] ([facility])[address] CO2 [Moles/Vol] 21 mmol/L Low 23-31 [facility] Comment on above: Performed By: #### L [id number] ####Aquatic Ecologist: FREEMAN DOUGHERTY ([id number])[facility] ([facility])[address] Creatinine [Mass/Vol] 1.29 mg/dL High 0.57-1.11 [facility] Comment on above: Performed By: #### L [id number] ####Aquatic Ecologist: FREEMAN DOUGHERTY ([id number])[facility] ([facility])[address] [place] [address] [place] GLOMERULAR FILTRATION RATE ML/MIN/1.73 SQ M.PREDICTED 42.6 mL/min/1.73m*2 Low >60.0 [facility] Comment on above: Result Comment: Calc ulation based on the Chronic Kidney Disease Epidemiology Collaboration (CKD-EPI) equation refit without adjustment for race Performed By: #### L [id number] ####Aquatic Ecologist: FREEMAN DOUGHERTY ([id number])[facility] Glucose [Mass/Vol] 140 mg/dL High 82-115 [facility] Comment on above: Performed By: #### L [id number] ####Aquatic Ecologist: FREEMAN DOUGHERTY ([id number])[facility] ([facility])[address] Potassium [Moles/Vol] 3.6 mmol/L Normal 3.5-5.1 [facility] Comment on above: Result Comment: [facility] potassium values may be up to 0.5 mmol/L lower than serum values. Performed By: #### L [id number] ####Aquatic Ecologist: FREEMAN DOUGHERTY ([id number])[facility] ([facility])[address] [place] [address] [place] Sodium [Moles/Vol] 138 mmol/L Normal 136-145 [facility] Comment on above: Performed By: #### L [id number] ####Aquatic Ecologist: FREEMAN DOUGHERTY ([id number])[facility] ([facility])[address] [place] [address] [place] Urea nitrogen [Mass/Vol] 44 mg/dL High 9-23 [facility] Comment on above: Performed By: #### L [id number] ####Aquatic Ecologist: FREEMAN DOUGHERTY ([id number])[facility] ([facility])[address] [place] [address] Basic metabolic 1998 panelon 11-20-2024 Anion gap [Moles/Vol] 11 mmol/L 3 - 13 mmol/L [facility] Calcium [Mass/Vol] 8.7 mg/dL Low 8.8 - 10. 0 mg/dL [facility] Chloride [Moles/Vol] 106 mmol/L 98 - 10 7 mmol/L [facility] CO2 [Moles/Vol] 21 mmol/L Low 23 - 31 mmol/L [facility] Creatinine [Mass/Vol] 1.29 mg/dL High 0.57 - 1.11 mg/dL [facility] GFR/1.73 sq M.predicted (S/P/Bld) [Vol rate/Area] 42.6 mL/min Low - PINF [facility] Glucose [Mass/Vol] 140 mg/dL High 82 - 115 mg/dL [facility] Interpretation and review of laboratory results Abnormal [facility] Potassium [Moles/Vol] 3.6 mmol/L 3.5 - 5.1 mmol/L [facility] Sodium [Moles/Vol] 138 mmol/L 136 - 145 mmol/L [facility] Urea nitrogen [Mass/Vol] 44 mg/dL High 9 - 23 mg/dL [facility] CBC W Auto Differential pane l (Bld)on 11-20-2024 Basophils (Bld) [#/Vol] 0.1 10*3/uL 0.0 - 0.2 10*3/uL [facility] Basophils/100 WBC (Bld) 0.5 % 0.0 - 2.0 % [facility] Eosinophils (Bld) [#/Vol] 0.7 10*3/uL High 0.0 - 0.5 10*3/uL [facility] Eosinophils/100 WBC (Bld) 5.1 % 0.0 - 6.0 % [facility] Erythrocyte distribution width (RBC) [Ratio] 14.8 % 11.5 - 15.0 % [facility] Hematocrit (Bld) [Volume fraction] 43.7 % 35.0 - 47.0 % [facility] Hemoglobin (Bld) [Mass/Vol] 14.3 g/dL 11.7 - 16.0 g/dL [facility] Immature granulocytes (Bld) [#/Vol] 0 10*3/uL NINF - 0.1 10*3/uL [facility] Immature granulocytes/100 WBC (Bld) 0.3 % 0.0 - 2.0 % [facility] Interpretation and review of laboratory results Abnormal [facility] Lymphocytes (Bld) [#/Vol] 1.3 10*3/uL 1.0 - 4.3 10*3/uL [facility] Lymphocytes/100 WBC (Bld) 10.4 % Low 15.0 - 45.0 % [facility] MCH (RBC) [Entitic mass] 31.9 pg 26.0 - 34.0 pg [facility] MCHC (RBC) [Mass/Vol] 32.7 % 30.5 - 36.0 % [facility] MCV (RBC) [Entitic vol] 97.5 fL 77.0 - 99.0 fL [facility] Monocytes (Bld) [#/Vol] 0.8 10*3/uL 0.0 - 0.9 10*3/uL [facility] Monocytes/100 WBC (Bld) 6.4 % 5.0 - 13.0 % [facility] Neutrophils (Bld) [#/Vol] 9.9 10*3/uL High 1.8 - 7.5 10*3/uL [facility] Neutrophils/100 WBC (Bld) 77.3 % 38.0 - 82.0 % [facility] Nucleated RBC/100 WBC (Bld) [Ratio] 0.2 % [facility] Platelet mean volume (Bld) [Entitic vol] 11.1 fL 9.0 - 12.7 fL [facility] Platelets (Bld) [#/Vol] 279 10*3/uL 140 - 440 10*3/uL [facility] RBC (Bld) [#/Vol] 4.48 10*6/uL 3.80 - 5.2 0 10*6/uL [facility] WBC (Bld) [#/Vol] 12.8 10*3/uL High 3.6 - 10.7 10*3/uL [facility] CBC WITH AUTO DIFFERENTIALon 11-20-2024 Basophils (Bld) [#/Vol] 0.1 10*3/uL Normal 0.0-0.2 [facility] Comment on above: Performed By: #### L [id number] ####Aquatic Ecologist: FREEMAN DOUGHERTY ([id number])[facility] ([facility])[address] Basophils/100 WBC (Bld) 0.5 % Normal 0.0-2.0 [facility] Comment on above: Performed By: #### L [id number] ####Aquatic Ecologist: FREEMAN DOUGHERTY ([id number])[facility] ([facility])[address] Eosinophils (Bld) [#/Vol] 0.7 10*3/uL High 0.0-0.5 [facility] Comment on above: Performed By: #### L [id number] ####Aquatic Ecologist: FREEMAN DOUGHERTY ([id number])[facility] ([facility])[address] Eosinophils/100 WBC (Bld) 5.1 % Normal 0.0-6.0 [facility] Comment on above: Performed By: #### L [id number] ####Aquatic Ecologist: FREEMAN DOUGHERTY ([id number])[facility] ([facility])[address] [place] [address] Erythrocyte distribution width (RBC) [Ratio] 14.8 % Normal 11.5-15.0 [facility] Comment on above: Performed By: #### L [id number] ####Aquatic Ecologist: FREEMAN DOUGHERTY ([id number])[facility] ([facility])[address] [place] [address] Hematocrit (Bld) [Volume fraction] 43.7 % Normal 35.0-47.0 [facility] Comment on above: Performed By: #### L [id number] ####Aquatic Ecologist: FREEMAN DOUGHERTY ([id number])[facility] ([facility])[address] [place] [address] Hemoglobin (Bld) [Mass/Vol] 14.3 g/dL Normal 11.7-16.0 [facility] Comment on above: Performed By: #### L [id number] ####Aquatic Ecologist: FREEMAN DOUGHERTY ([id number])[facility] ([facility])[address] IMMATURE GRANS % 0.3 % Normal 0.0-2.[address] [facility] Comment on above: Performed By: #### L [id number] ####Aquatic Ecologist: FREEMAN DOUGHERTY ([id number])[facility] ([facility])[address] IMMATURE GRANS ABSOLUTE 0.0 10*3/uL Normal <0.1 [facility] Comment on above: Performed By: #### L [id number] ####Aquatic Ecologist: FREEMAN DOUGHERTY ([id number])[facility] ([facility])[address] [place] [address] Lymphocytes (Bld) [#/Vol] 1.3 10*3/uL Normal 1.0-4.3 [facility] Comment on above: Performed By: #### L [id number] ####Aquatic Ecologist: FREEMAN DOUGHERTY ([id number])[facility] ([facility])[address] [place] [address] Lymphocytes/100 WBC (Bld) 10.4 % Low 15.0-45.0 [facility] Comment on above: Performed By: #### L [id number] ####Aquatic Ecologist: FREEMAN DOUGHERTY ([id number])[facility] ([facility])[address] [place] [address] MCH (RBC) [Entitic mass] 31.9 pg Normal 26.0-34.0 [facility] Comment on above: Performed By: #### L [id number] ####Aquatic Ecologist: FREEMAN DUOGHERTY ([id number])[facility] ([facility])[address] MCHC 32.7 % Normal 30.5-36.0 [facility] Comment on above: Performed By: #### L [id number] ####Aquatic Ecologist: FREEMAN DOUGHERTY ([id number])[facility] (SB[facility]AB)[address] MCV (RBC) [Entitic vol] 97.5 fL Normal 77.0-99.0 [facility] Comment on above: Performed By: #### L [id number] ####Aquatic Ecologist: FREEMAN DOUGHERTY ([id number])[facility] (SB[facility])[address] Monocytes (Bld) [#/Vol] 0.8 10*3/uL Normal 0.0-0.9 [facility] Comment on above: Performed By: #### L [id number] ####Aquatic Ecologist: FREEMAN DOUGHERTY ([id number])[facility] ([facility])[address] Monocytes/100 WBC (Bld) 6.4 % Normal 5.0-13.0 [facility] Comment on above: Performed By: #### L [id number] ####Aquatic Ecologist: FREEMAN DOUGHERTY ([id number])[facility] ([facility])[address] NEUTROPHILS ABSOLUTE 9.9 10*3/uL High 1.8-7.5 [facility] Comment on above: Performed By: #### L [id number] ####Aquatic Ecologist: FREEMAN DOUGHERTY ([id number])[facility] ([facility])[address] Neutrophils/100 WBC (Bld) 77.3 % Normal 38.0-82.0 [facility] Comment on above: Performed By: #### L [id number] ####Aquatic Ecologist: FREEMAN DOUGHERTY ([id number])[facility] ([facility])[address] NRBC 0.2 /100 WBCs Normal 0.0-2.0 [facility] Comment on above: Performed By: #### L [id number] ####Aquatic Ecologist: FREEMAN DOUGHERTY ([id number])[facility] (SBHLAB)[address] Platelet mean volume (Bld) [Entitic vol] 11.1 fL Normal 9.0-12.7 [facility] Comment on above: Performed By: #### L [id number] ####Aquatic Ecologist: FREEMAN DOUGHERTY ([id number])[facility] (SB[facility])[address] Platelets (Bld) [#/Vol] 279 10*3/uL Normal 140-440 [facility] Comment on above: Performed By: #### L [id number] ####Aquatic Ecologist: FREEMAN DOUGHERTY ([id number])[facility] ([facility])[address] [place] [address] RBC (Bld) [#/Vol] 4.48 10*6/uL Normal 3.80-5.20 [facility] Comment on above: Performed By: #### L [id number] ####Aquatic Ecologist: FREEMAN DOUGHERTY ([id number])[facility] ([facility])[address] [place] [address] WBC (Bld) [#/Vol] 12.8 10*3/uL High 3.6-10.7 [facility] Comment on above: Performed By: #### L [id number] ####Aquatic Ecologist: FREEMAN DOUGHERTY ([id number])[facility] ([facility])[address] [place] [address] Consulton 11-20-2024 Consult [facility] Wound Care CONSULT Note Carline Villarreal AGE: 78 y.o. GENDER: female : 1945 Subjective: HISTORY of PRESENT ILLNESS HPI Carline Villarreal is a 78 y.o. female who presents for a wound consult. HPI: Carline is a 78 y.o. female who presented to ED on 11/13/24 with chief complaint od SOB. Patient from SNF w/ SOB, reported 76% sp02 on room air when EMS first arrived. She was placed on BIPAP during transport to ED. Wound Care consulted for Pressure Injury Buttocks PAST MEDICAL HISTORY Medical History[1] PAST SURGICAL HISTORY Surgical History[2] FAMILY HISTORY Family History[3] SOCIAL HISTORY Social History[4] ALLERGIES Allergies[5] MEDICATIONS Medications Ordered Prior to Encounter[6] REVIEW OF SYSTEMS Pertinent items are noted in HPI. Objective: BP (!) 176/81 Pulse 85 Temp 36.1 ?C (97 ?F) (Temporal) Resp 16 Ht 1.651 m (5' 5) Wt 95.3 kg (210 lb) SpO2 99% BMI 34.95 kg/m? PHYSICAL EXAM General appearance: in no apparent distress, well developed and well nourished, in no respiratory distress and acyanotic, and alert Skin: warm and dry Pulmonary: Normal effort, no respiratory distress, no cyanosis Bilateral buttocks: Scattered open areas with pink wounds beds that appear to be healing. No drainage noted. Madi wound with blanchable erythema, staining from prolonged pressure to area, fragile. 11/20/24 LABS CBC: Lab Results Component Value Date WBC 12.8 (H) 11/20/2024 HGB 14.3 11/20/2024 HCT 43.7 11/20/2024 MCV 97.5 11/20/2024 PLT 279 11/20/2024 BMP: Lab Results Component Value Date NA 138 11/20/2024 K 3.6 11/20/2024 CL 106 11/20/2024 CO2 21 (L) 11/20/2024 BUN 44 (H) 11/20/2024 CREATININE 1.29 (H) 11/20/2024 PT/INR: No results found for: PROTIME, INR Prealbumin: No results found for: PREALBUMIN Albumin:No components found for: LABALBU Sed Rate:No results found for: SEDRATE Micro: No components found for: BC Assessment/Plan: Nursing staff to perform dressing change: Bilateral buttocks: MASD (Bodily fluids) -cleanse with soap and water, apply ET mix TID and PRN, 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 Any questions or concerns please secure chat [facility] wound/ostomy. Thank you for the consult! I personally obtained the rucker and critical portions of the history and physical exam. I reviewed the labs, imaging studies, and electronic medical record. I reviewed the chart documentation and discussed the patient with treatment team members. I have edited the note to reflect my clinical findings and my assessment and plan. Please note, the time of this note does not reflect the time I saw this patient today, but the time of this documentaton. Portions of this note including HPI, ROS, impression/plan, and examination may have been copied forward from admission to today as to provide important historical information essential in contributing to medical decision making. Documentation has been reviewed and edited as necessary to support clinical decision making for today's visit and to reflect my own independent evaluation of this patient. Decision making for today's visit and to reflect my own independent evaluation of this patient. [1] Past Medical History: Diagnosis Date Diabetes mellitus (HCC) Hypertension Stroke (HCC) [2] History reviewed. No pertinent surgical history. [3] No family history on file. [4] Social History Tobacco Use Smoking status: Some Days Types: Cigarettes Substance Use Topics Alcohol use: Not Currently Drug use: Not Currently [5] No Known Allergies [6] No current facility-administered medications on file prior to encounter. Current Outpatient Medications on File Prior to Encounter Medication Sig Dispense Refill acetaminophen (Tylenol) 325 MG tablet Take 650 mg by mouth every 6 hours as needed for mild pain (1-3), moderate pain (4-6) or fever. aluminum-magnesium hydroxide-simethicone (Maalox MAX) 400-400-40 MG/5ML suspension Take 10 mL by mouth every 4 hours as needed for indigestion or heartburn. atorvastatin (Lipitor) 40 MG tablet Take 40 mg by mouth daily. bisacodyl (Dulcolax) 5 MG EC tablet Take 5 mg by mouth Daily as needed for constipation. Do not crush, chew, or split. bisacodyl (Dulcolax) 5 MG EC tablet Take 5 mg by mouth Daily as needed for constipation. Do not crush, chew, or split. busPIRone (Buspar) 5 MG tablet Take 2.5 mg by mouth 2 times daily. cloNIDine (Catapres) 0.2 MG tablet Take 0.2 mg by mouth 2 times daily. clopidogrel (Plavix) 75 MG tablet Take 75 mg by mouth daily. DULoxetine (Cymbalta) [address] capsule Eze (more content not included)... Normal [facility] Laboratory - Chemistry and C hemistry - challengeon 11-20-2024 Glucose [Mass/Vol] 167 mg/dL High 70 - 100 mg/dL [facility] Glucose [Mass/Vol] 131 mg/dL High 70 - 100 mg/dL [facility] Glucose [Mass/Vol] 137 mg/dL High 70 - 100 mg/dL [facility] Glucose [Mass/Vol] 151 mg/dL High 70 - 100 mg/dL [facility] No Panel Informationon 11-20 Interpretation and review of laboratory results Abnormal [facility] Interpretation and review of laboratory results Abnormal [facility] Interpretation and review of laboratory results Abnormal [facility] Interpretation and review of laboratory results Abnormal [facility] Progress Noteon 11-20-2024 Progress Note [facility] Medical [facility] Geriatric Medicine Inpatient Consult Service Admission Date: 11/13/2024 Assessment Principal Problem: Acute exacerbation of chronic heart failure (HCC) Plan Acute Metabolic Encephalopathy --Improved compared to Wednesday but not resolved --Etiology likely EDWIGE/uremia (improving), hospital environment, CHF exacerbation, suspected UTI --She continues to have a leukocytosis. Today, she is able to report dysuria. Discussed with nursing, who will work on collecting the UA. Hospitalist updated --Continue to treat underlying cause --Encourage PO intake, time up in chair, family visits, and sleep hygiene --If agitated, assess for and consider treating for pain --QTc= 566 --Avoid antipsychotics due to prolonged qtc. Patient is currently hypoactive. Do not anticipate need for agitation medications at this time --Continue scheduled melatonin at HS --Monitor for constipation/urinary retention - last BM 11/20 --Possible medication contributions: gabapentin, percocet (last received 11/15) Dementia --Lives in [facility] facility --History of stroke with worsening cognitive decline. --Try to avoid anticholinergic medications --11/20: Still not back at baseline. Debility --Contributing factors include stroke, Dementia, Chronic pain, heart failure --nathan lift and use of wheelchair at baseline --PT and OT --Anticipate return to [facility] when medically stable --11/20: Stable Bipolar Disorder Anxiety --takes Lexapro 5mg daily at facility - was being weaned there. We did not restart in hospital. Continue off medication at this time, especially in setting of prolonged qtc --Continue Duloxetine 30mg daily --Continue Buspar 2.5mg BID (being weaned at facility) 11/20: Recommend removing lexapro from medication list when she discharges as well Chronic pain --Takes Oxycodone-Acetaminophe n 5/325 mg 1 tab every 8 hours as needed at facility. Takes 1 tab every few days. Currently ordered. --Home dose of Gabapentin 600mg BID. --Gabapentin was increased from 300 mg BID to 400 mg BID on 11/16. --11/17: --Lower gabapentin to 200 mg BID due to EDWIGE. --11/20: EDWIGE resolved. I'm going to increase the gabapentin back to 300 mg BID. If she tolerates this and renal function is stable, then I recommend she be discharged on the 300 mg BID dose Follow-up: will follow with you Subjective Chief Complaint: shortness of breath Geriatrics consulted for confusion restless with underlying dementia with prolonged qtc HPI- The patient is known to me. 78 y.o. 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 Diagnosed with acute CHF exacerbation and EDWIGE. Cardiology following. ECHO 11/14 with EF 35%. Findings consistent with Takotsubo vs CAD. Developed EDWIGE. CBC: wbc 12.8 BMP: Creatinine 1.29, BUN 44 Reviewed yesterday's primary team progress note and pulmonology note. Interval History: She think she is at [facility]. She says she is upset because she had to wait for two hours. She is able to report that she has dysuria (brought this up on ROS as well as independently later in conversation). Review of Systems Constitutional: Negative for fever. Respiratory: Negative for shortness of breath. Cardiovascular: Negative for leg swelling. Gastrointestinal: Negative for abdominal pain, constipation, diarrhea and nausea. Genitourinary: Positive for dysuria. Musculoskeletal: Negative for arthralgias and myalgias. Psychiatric/Behavioral : Positive for confusion. Objective BP (!) 176/81 Pulse 85 Temp 36.1 ?C (97 ?F) (Temporal) Resp 16 Ht 5' 5 (1.651 m) Wt 210 lb (95.3 kg) SpO2 99% BMI 34.95 kg/m? No intake or output data in the 24 hours ending 11/20/24 1242 Wt Readings from Last 3 Encounters: 11/14/24 210 lb (95.3 kg) 12/17/23 205 lb (93 kg) Current Medications[1] Physical Exam Constitutional: General: She is not in acute distress. Appearance: She is ill-appearing. Comments: Awakens easily to verbal stimuli and stays awake during conversation HENT: Head: Normocephalic and atraumatic. Cardiovascular: Rate and Rhythm: Normal rate and regular rhythm. Heart sounds: No murmur heard. No friction rub. No gallop. Pulmonary: Effort: Pulmonary effort is normal. Breath sounds: Normal breath sounds. No decreased breath sounds, wheezing, rhonchi or rales. Abdominal: General: There is no distension. Palpations: Abdomen is soft. Tenderness: There is no abdominal tenderness. There is no guarding or rebound. Musculoskeletal: Right lower leg: No edema. Left lower leg: No edema. Neurological: Mental Status: She is disoriented. Comments: Thinks she is at [facility] Psychiatric: Cognition and Memory: Cognit (more content not included)... Normal [facility] Progress Note OCCUPATIONAL THERAPY [facility] Treatment Note Name/MRN: Carline Villarreal ([id number]) Date of : 1945 Age: 78 y.o. Room/Bed: V4-882/X4-627 A Visit #: 3 out of 7 Discharge Recommendation: Assisted Facility Equipment Needed: No Assessment Patient is making gradual progress with OT this date with patient limited from decreased strength and balance. Patient is overall on the max assist to dependent level. Patient remains a high fall risk and well below baseline. Patient was able order improved standing to assist of 1 this date. OT is still recommending SNF therapy at discharge. Subjective Patient supine in bed upon arrival and agreeable to OT treatment. Pain: Pt denies any current pain. Medical Precautions: No active isolations Proper PPE donned/doffed in accordance with facility standards. Fall Risk: Oleary Fall Risk Score: 60 (High Risk) Precautions/Restrictio ns: Fall Precautions Decreased (L) LE WB and increased tone in standing, dementia Family/Caregiver Present: none Objective ADLs Toileting: Dependent Patient was incontinent of BM upon arrival. Patient independent care at bed level to complete [facility]. Bed Mobility Supine to sit: Max Assist Sit to supine: Max Assist Rolling to right: Max Assist Rolling to left: Max Assist HOB Elevated Use of bed rail(s) Cues for technique with extended time to complete. Transfers/Mobility Sit to stand: Max Assist Stand to sit: Max Assist Standing balance: Max Assist Patient completed transfers to front wheeled walker with cues for technique with left-sided weakness noted. Patient needing max assist of 1 to complete. Patient able to tolerate 15-second intervals of standing before needing to sit. Patient unable to take any steps this date. Device(s) used: Front wheeled walker Cognition - WFL Plan Continue acute OT per plan of care. Safety/Education Safety Safety Devices in place: All fall risk precautions in place, call light within reach, left in bed, gait belt, patient at risk for falls, nurse notified, and no alarms engaged upon entry Restraints: No Education Education Given To: patient Education Provided: Precautions, ADL Adaptive Strategies, Transfer Training, Fall Prevention Education, and Discharge Recommendations Education Method: Verbal and Demonstration Barriers to Learning: None Education Outcome: Verbalized Understanding, Demonstrated Understanding, and Continued Education Needed AM-PAC AM-PAC Inpatient Daily Activity Raw Score: 11 ADL Inpatient CMS G-Code Modifier: CL Goals Patient Stated Goal: to get better Encounter Problems Encounter Problems (Active) Dressing Upper Extremities Patient will complete upper body dressing SBA (Not Addressed) Start: 11/15/24 Expected End: 11/25/24 Dressings Lower Extremities Patient will dress lower body MIN A (Not Addressed) Start: 11/15/24 Expected End: 11/25/24 Mobility Patient will demonstrate functional mobility with MOD A and FWW (Not Addressed) Start: 11/15/24 Expected End: 11/25/24 Therapeutic Exercise Pt will demo good participation in BUE exercises to increase endurance and strength for participation in ADLs and functional transfers / bed mobility. (Not Addressed) Start: 11/15/24 Expected End: 11/25/24 Toileting Patient will complete toileting tasks at bedside commode with mod assist. (Slowly Progressing) Start: 11/15/24 Expected End: 11/25/24 Transfers Patient will complete functional transfer with rolling walker with mod assist in order to prepare for ambulation. (Progressing) Start: 11/15/24 Expected End: 11/25/24 Patient will perform bed mobility with supervision in order to improve independence and prepare for out of bed mobility. (Progressing) Start: 11/15/24 Expected End: 11/25/24 Therapy Time Individual Co-treatment Time In 0808 Time Out 0831 Minutes 23 Timed Code Treatment Minutes: 23 Minutes (1 ADL, 1 ACT) FABI Deal/Nicole [facility] Progress Note PHYSICAL THERAPY [facility] Treatment Note Name/MRN: Carline Villarreal ([id number]) Date of : 1945 Age: 78 y.o. [facility] A Visit #: 2 out of 7 visits Discharge Recommendation: Assisted Facility Equipment Needed: No Other: TBD at next level of care Assessment Pt completed B LE exercises this AM in order to progress strength for mobility. Pt requires initial encouragement as she recently worked with OT and is c/o increased fatigue. Pt requires AAROM at this time for exercises in order to assure attention to task. Pt could benefit from continued PT in order to progress toward goals. SNF recommendation remains appropriate at this time. Subjective Patient pleasantly confused and agreeable to therapy session this date. Per RN patient okay for therapy. Observation: no lines present Pain: Pt denies any current pain. Medical Precautions: No active isolations Proper PPE donned/doffed in accordance with facility standards. Fall Risk: Oleary Fall Risk Score: 60 (High Risk) Precautions/Restrictio ns: Fall Precautions Decreased (L) LE WB and increased tone in standing, dementia Overall Cognitive Status: Exceptions - Following commands: follows one step commands consistently - Memory: decreased short term memory - Sequencing: requires cues for some - h/o dementia Overall Orientation Status: Oriented to Person, Disoriented to Situation, Disoriented to Time, and Disoriented to Place - pt initially stating she was at [facility] and then later in session patient states she was at a group home Family/Caregiver Present: none Objective Exercises Hip Abduction: 2 sets / 10 reps B LE in supine Knee Short Arc Quad: 2 sets / 10 reps R and L LE in supine Ankle Pumps: 2 sets / 10 reps R and L LE in supine Heel Slides: 2 sets / 10 reps R and L LE in supine SLR: 2 sets / 10 reps R and L LE in supine Completed B LE exercises in order to improve strength and activity tolerance for mobility. Pt educated on technique and rationale for exercises in order to improve patients understanding and compliance with exercises. Pt demonstrates understanding and ability to complete at this time. AAROM throughout from therapist to assure attention to task and maximize benefit. Pt demonstrates good effort after initial 1-2 reps initiated. Plan Continue acute PT per plan of care. Safety/Education Safety Safety Devices in place: All fall risk precautions in place, call light within reach, left in bed, bed alarm in place, nurse notified, and no alarms engaged upon entry Restraints: N/A Education Education Given To: patient Education Provided: PT Role, PT Goals, Plan of Care, Home Exercise Program, Orientation, Discharge Recommendations, and Benefits of Increasing Activity Education Method: Verbal and Demonstration Barriers to Learning: Cognition Education Outcome: Demonstrated Understanding and Continued Education Needed Outcome Measures AM-PAC AM-PAC Inpatient Mobility Raw Score (No Stairs) : 7 JH-HLM -HLM Score: Bed activity Goals Patient Stated Goal: Patient unable to participate in goal setting at this time. Encounter Problems Encounter Problems (Active) Balance Patient will maintain dynamic standing balance for 3 minutes with min assist in order to demonstrate decreased risk of falling. (Not Addressed) Start: 11/16/24 Expected End: 12/02/24 Patient will maintain static standing balance for 5 minutes with CGA in order to demonstrate decreased risk of falling. (Not Addressed) Start: 11/16/24 Expected End: 12/02/24 Exercise Patient will complete lower extremity exercises for 1-2 sets / 10-15 reps in order to improve strength and activity tolerance for mobility. (Progressing) Start: 11/16/24 Expected End: 12/02/24 Mobility Patient will ambulate 10 feet with min assist and least restrictive device in order to improve safety and independence with mobility. (Not Addressed) Start: 11/16/24 Expected End: 12/02/24 Transfers Patient will perform bed mobility with min assist in order to improve independence and prepare for out of bed mobility. (Not Addressed) Start: 11/16/24 Expected End: 12/02/24 Patient will complete functional transfer with least restrictive device with min assist in order to prepare for ambulation. (Not Addressed) Start: 11/16/24 Expected End: 12/02/24 Therapy Time Individual Co-treatment Time In 0945 Time Out 0958 Minutes 13 Timed Code Treatment Minutes: 12 Minutes (therex x 1) Dea Mason, PT [facility] Progress Note Speech-Language Pathology SPEECH LANGUAGE PATHOLOGY [facility] Dysphagia Treatment Note Patient Name: Carline Villarreal Evaluation Date: 11/20/2024 Date of : 1945 Admission Date: 11/13/2024 10:39 AM Age: 78 y.o. Room[facility]: [facility] A Subjective Patient alert and cooperative. Seen upright in bed. Answers all basic questions with strong vocal quality. Follows all basic commands. No visitors at bedside - Nurse was present delivering meds and charting. Spoke with WEI Barreto who cleared pt for treatment. Current Diet: Dietary Orders (From admission, onward) Start Ordered 11/18/24 1156 Adult diet Dysphagia - Pureed Diet effective now Question: Diet type Answer: Dysphagia - Pureed 11/18/24 1155 Aspiration Precautions: - Upright positioning for all PO intake - Slow rate of intake - Small bites/sips - Alternate solid and liquids Oxygen: Oxygen Therapy: None (Room air Pain: RN managing pain. PPE Worn: gloves Objective & Assessment Dysphagia Treatment # of Activities: 1 Dysphagia Activity 1: assess dietary tolerance Patient was consuming meds independently with sips of thin liquid via straw. No cough or change in voice quality was noted. Patient was agreeable to trying puree and soft and bite sized solids. Patient demonstrated prolonged but complete mastication, suspect due to presenting edentulous bedside. Minimal oral residue was noted, but cleared with a liquid wash. Patient's swallow presented timely once initiated from prolonged mastication. Patient stated she ate softer foods before coming into the hospital. When consuming foods adequate hyo-laryngeal excursion is noted. Plan & Recommendations Plan: Continue acute TECHNICAL ASST therapy per initial plan of care and established goals. Recommend Soft and bite-sized solids and Thin liquids and meds as tolerated and the following precautions: - Upright positioning for all PO intake - Slow rate of intake - Small bites/sips - Alternate solid and liquids D/C Recommendations: to be determined Education Education Given: swallowing strategies, diet recommendations Given To: patient and RN Response: verbalizes understanding Goals Patient Stated Goal: To rest. Encounter Problems Encounter Problems (Active) Swallowing Patient will tolerate the least restrictive diet consistency to allow for safe consumption of daily meals (Progressing) Start: 11/17/24 Expected End: 11/24/24 Patient will demonstrate safe swallowing Intervention/technique s (Progressing) Start: 11/17/24 Expected End: 11/24/24 Therapy Time TECHNICAL ASST Individual Minutes Time In: 926 Time Out: 935 Minutes: 9 Jasmyn Vines CCC-TECHNICAL ASST [facility] Progress Note Nutrition update completed. Chart reviewed. Patient continues as a level 1. [facility] Progress Note Nutrition rescreen completed. Chart reviewed. Patient to be monitored and followed by the diet electronic train control technician. Normal [facility] 30on 11-19-2024 30 Problem: Knowledge Deficit Goal: Patient/family/caregiv er demonstrates understanding of disease process, treatment plan, medications, and discharge instructions Outcome: Progressing Problem: Potential for Compromised Skin Integrity Goal: Skin Integrity is Maintained or Improved Outcome: Progressing Normal [facility] BASIC METABOLIC PANELon 05 Anion gap [Moles/Vol] 12 mmol/L Normal 3-13 [facility] Comment on above: Performed By: #### L [id number], [id number] ####Aquatic Ecologist: FREEMAN DOUGHERTY ([id number])[facility] (SBHLAB)[address] Calcium [Mass/Vol] 8.3 mg/dL Low 8.8-10.0 [facility] Comment on above: Performed By: #### L AB15, [id number] ####Aquatic Ecologist: FREEMAN DOUGHERTY ([id number])[facility] (SBHLAB)[address] Chloride [Moles/Vol] 106 mmol/L Normal 98-107 [facility] Comment on above: Performed By: #### L AB15, [id number] ####Aquatic Ecologist: FREEMAN MURPHYMICHAEL ([id number])[facility] (SBHLAB)[address] CO2 [Moles/Vol] 20 mmol/L Low 23-31 [facility] Comment on above: Performed By: #### L AB15, [id number] ####Aquatic Ecologist: FREEMAN SUAREZMAYRA ([id number])[facility] (SBHLAB)[address] Creatinine [Mass/Vol] 1.60 mg/dL High 0.57-1.11 [facility] Comment on above: Performed By: #### L AB15, [id number] ####Aquatic Ecologist: FREEMAN MURPHYMICHAEL ([id number])[facility] (SBHLAB)[address] GLOMERULAR FILTRATION RATE ML/MIN/1.73 SQ M.PREDICTED 32.9 mL/min/1.73m*2 Low >60.0 [facility] Comment on above: Result Comment: Calc ulation based on the Chronic Kidney Disease Epidemiology Collaboration (CKD-EPI) equation refit without adjustment for race Performed By: #### L AB15, [id number] ####Aquatic Ecologist: FREEMAN MURPHYMICHAEL ([id number])[facility] (SBHLAB)[address] Glucose [Mass/Vol] 142 mg/dL High 82-115 [facility] Comment on above: Performed By: #### L AB15, [id number] ####Aquatic Ecologist: FREEMAN SUAREZMAYRA ([id number])[facility] (SBHLAB)155 [place] [address] [place] Potassium [Moles/Vol] 3.3 mmol/L Low 3.5-5.1 [facility] Comment on above: Result Comment: [facility] potassium values may be up to 0.5 mmol/L lower than serum values. Performed By: #### L AB15, [id number] ####Aquatic Ecologist: FREEMAN SUAREZMAYRA ([id number])[facility] (SB[facility])[address] Sodium [Moles/Vol] 138 mmol/L Normal 136-145 [facility] Comment on above: Performed By: #### L AB15, [id number] ####Aquatic Ecologist: FREEMANSUGEY DOUGHERTY ([id number])[facility] (SBHLAB)[address] Urea nitrogen [Mass/Vol] 59 mg/dL High 9-23 [facility] Comment on above: Performed By: #### L AB15, [id number] ####Aquatic Ecologist: FREEMANSUGEY DOUGHERTY ([id number])[facility] (SBHLAB)[address] Basic metabolic 1998 panelon 11-19-2024 Anion gap [Moles/Vol] 12 mmol/L 3 - 13 mmol/L [facility] Calcium [Mass/Vol] 8.3 mg/dL Low 8.8 - 10. 0 mg/dL [facility] Chloride [Moles/Vol] 106 mmol/L 98 - 10 7 mmol/L [facility] CO2 [Moles/Vol] 20 mmol/L Low 23 - 31 mmol/L [facility] Creatinine [Mass/Vol] 1.6 mg/dL High 0.57 - 1.11 mg/dL [facility] GFR/1.73 sq M.predicted (S/P/Bld) [Vol rate/Area] 32.9 mL/min Low - PINF [facility] Glucose [Mass/Vol] 142 mg/dL High 82 - 115 mg/dL [facility] Interpretation and review of laboratory results Abnormal [facility] Potassium [Moles/Vol] 3.3 mmol/L Low 3.5 - 5.1 mmol/L [facility] Sodium [Moles/Vol] 138 mmol/L 136 - 145 mmol/L [facility] Urea nitrogen [Mass/Vol] 59 mg/dL High 9 - 23 mg/dL [facility] CBC W Auto Differential pane l (Bld)on 11-19-2024 Basophils (Bld) [#/Vol] 0 10*3/uL 0.0 - 0.2 10*3/uL [facility] Basophils/100 WBC (Bld) 0.2 % 0.0 - 2.0 % [facility] Eosinophils (Bld) [#/Vol] 0.7 10*3/uL High 0.0 - 0.5 10*3/uL [facility] Eosinophils/100 WBC (Bld) 5.2 % 0.0 - 6.0 % [facility] Erythrocyte distribution width (RBC) [Ratio] 14.5 % 11.5 - 15.0 % [facility] Hematocrit (Bld) [Volume fraction] 39.8 % 35.0 - 47.0 % [facility] Hemoglobin (Bld) [Mass/Vol] 13.3 g/dL 11.7 - 16.0 g/dL [facility] Immature granulocytes (Bld) [#/Vol] 0 10*3/uL NINF - 0.1 10*3/uL [facility] Immature granulocytes/100 WBC (Bld) 0.3 % 0.0 - 2.0 % [facility] Interpretation and review of laboratory results Abnormal [facility] Lymphocytes (Bld) [#/Vol] 1.2 10*3/uL 1.0 - 4.3 10*3/uL [facility] Lymphocytes/100 WBC (Bld) 9.3 % Low 15.0 - 45.0 % [facility] MCH (RBC) [Entitic mass] 32.1 pg 26.0 - 34.0 pg [facility] MCHC (RBC) [Mass/Vol] 33.4 % 30.5 - 36.0 % [facility] MCV (RBC) [Entitic vol] 96.1 fL 77.0 - 99.0 fL [facility] Monocytes (Bld) [#/Vol] 0.9 10*3/uL 0.0 - 0.9 10*3/uL [facility] Monocytes/100 WBC (Bld) 6.8 % 5.0 - 13.0 % [facility] Neutrophils (Bld) [#/Vol] 10.4 10*3/uL High 1.8 - 7.5 10*3/uL [facility] Neutrophils/100 WBC (Bld) 78.2 % 38.0 - 82.0 % [facility] Nucleated RBC/100 WBC (Bld) [Ratio] 0.3 % [facility] Platelet mean volume (Bld) [Entitic vol] 11.6 fL 9.0 - 12.7 fL [facility] Platelets (Bld) [#/Vol] 248 10*3/uL 140 - 440 10*3/uL [facility] RBC (Bld) [#/Vol] 4.14 10*6/uL 3.80 - 5.2 0 10*6/uL [facility] WBC (Bld) [#/Vol] 13.3 10*3/uL High 3.6 - 10.7 10*3/uL [facility] CBC WITH AUTO DIFFERENTIALon 11-19-2024 Basophils (Bld) [#/Vol] 0.0 10*3/uL Normal 0.0-0.2 [facility] Comment on above: Performed By: #### L [id number] ####Aquatic Ecologist: FREEMAN DOUGHERTY ([id number])[facility] (SBAB)[address] [place] [address] Basophils/100 WBC (Bld) 0.2 % Normal 0.0-2.0 [facility] Comment on above: Performed By: #### L [id number] ####Aquatic Ecologist: FREEMAN DOUGHERTY ([phone])[facility] (SBAB)[address] [place] [address] Eosinophils (Bld) [#/Vol] 0.7 10*3/uL High 0.0-0.5 [facility] Comment on above: Performed By: #### L [id number] ####Aquatic Ecologist: FREEMAN DOUGHERTY ([id number])[facility] (SBAB)[address] Eosinophils/100 WBC (Bld) 5.2 % Normal 0.0-6.0 [facility] Comment on above: Performed By: #### L [id number] ####Aquatic Ecologist: FREEMAN DOUGHERTY ([id number])[facility] (SBAB)[address] Erythrocyte distribution width (RBC) [Ratio] 14.5 % Normal 11.5-15.0 [facility] Comment on above: Performed By: #### L [id number] ####Aquatic Ecologist: FREEMAN SUAREZMartinaMICHAEL ([id number])[facility] (SB[facility]AB)[address] [place] [address] Hematocrit (Bld) [Volume fraction] 39.8 % Normal 35.0-47.0 [facility] Comment on above: Performed By: #### L [id number] ####Aquatic Ecologist: FREEMAN FARHAT ([id number])[facility] (SBHLAB)[address] Hemoglobin (Bld) [Mass/Vol] 13.3 g/dL Normal 11.7-16.0 [facility] Comment on above: Performed By: #### L [id number] ####Aquatic Ecologist: FREEMAN FARHAT ([id number])[facility] [place] [address] IMMATURE GRANS % 0.3 % Normal 0.0-2.[address] [facility] Comment on above: Performed By: #### L [id number] ####Aquatic Ecologist: FREEMAN SUAREZMartinaMICHAEL ([phone])[facility] ([facility] [place] [address] IMMATURE GRANS ABSOLUTE 0.0 10*3/uL Normal <0.1 [facility] Comment on above: Performed By: #### L [id number] ####Aquatic Ecologist: FREEMAN MURPHYMICHAEL ([id number])[facility] (SBHLAB)[address] [place] [address] Lymphocytes (Bld) [#/Vol] 1.2 10*3/uL Normal 1.0-4.3 [facility] Comment on above: Performed By: #### L [id number] ####Aquatic Ecologist: FREEMAN MURPHYMICHAEL ([id number])[facility] (SBHLAB)[address] [place] [address] Lymphocytes/100 WBC (Bld) 9.3 % Low 15.0-45.0 [facility] Comment on above: Performed By: #### L [id number] ####Aquatic Ecologist: FREEMANSUGEY DOUGHERTY ([id number])[facility] (SBHLAB)[address] MCH (RBC) [Entitic mass] 32.1 pg Normal 26.0-34.0 [facility] Comment on above: Performed By: #### L [id number] ####Aquatic Ecologist: FREEMAN FARHAT ([id number])[facility]REH[facility] (SBHLAB)[address] MCHC 33.4 % Normal 30.5-36.0 [facility] Comment on above: Performed By: #### L [id number] ####Aquatic Ecologist: FREEMAN DOUGHERTY ([id number])[facility] (SBHLAB)[address] MCV (RBC) [Entitic vol] 96.1 fL Normal 77.0-99.0 [facility] Comment on above: Performed By: #### L [id number] ####Aquatic Ecologist: FREEMAN SUAREZMartinaMICHAEL ([id number])[facility] (SBHLAB)[address] Monocytes (Bld) [#/Vol] 0.9 10*3/uL Normal 0.0-0.9 [facility] Comment on above: Performed By: #### L [id number] ####Aquatic Ecologist: FREEMAN MURPHYMICHAEL ([phone])[facility] (SBHLAB)[address] Monocytes/100 WBC (Bld) 6.8 % Normal 5.0-13.0 [facility] Comment on above: Performed By: #### L [id number] ####Aquatic Ecologist: FREEMAN MURPHYMICHAEL ([id number])[facility] [place] (SBHLAB)[address] NEUTROPHILS ABSOLUTE 10.4 10*3/uL High 1.8-7.5 [facility] Comment on above: Performed By: #### L [id number] ####Aquatic Ecologist: FREEMAN SUAREZMartinaMICHAEL ([id number])[facility] (SBHLAB)[address] Neutrophils/100 WBC (Bld) 78.2 % Normal 38.0-82.0 [facility] Comment on above: Performed By: #### L [id number] ####Aquatic Ecologist: FREEMAN FARHAT ([id number])[facility] (SB[facility])[address] NRBC 0.3 /100 WBCs Normal 0.0-2.0 [facility] Comment on above: Performed By: #### L [id number] ####Aquatic Ecologist: FREEMANSUGEY DOUGHERTY ([id number])[facility] ([facility])[address] Platelet mean volume (Bld) [Entitic vol] 11.6 fL Normal 9.0-12.7 [facility] Comment on above: Performed By: #### L [id number] ####Aquatic Ecologist: FREEMAN FARHAT ([id number])[facility] ([facility])[address] Platelets (Bld) [#/Vol] 248 10*3/uL Normal 140-440 [facility] Comment on above: Performed By: #### L [id number] ####Aquatic Ecologist: FREEMAN MURPHYMICHAEL ([id number])[facility] (SBHLAB)[address] RBC (Bld) [#/Vol] 4.14 10*6/uL Normal 3.80-5.20 [facility] Comment on above: Performed By: #### L [id number] ####Aquatic Ecologist: FREEMAN SUAREZMAYRA ([id number])[facility] (SB[facility])[address] WBC (Bld) [#/Vol] 13.3 10*3/uL High 3.6-10.7 [facility] Comment on above: Performed By: #### L [id number] ####Aquatic Ecologist: FREEMAN DOUGHERTY ([id number])[facility] ([facility] Laboratory - Chemistry and C hemistry - challengeon 11-19-2024 Glucose [Mass/Vol] 129 mg/dL High 70 - 100 mg/dL [facility] Glucose [Mass/Vol] 123 mg/dL High 70 - 100 mg/dL [facility] Glucose [Mass/Vol] 206 mg/dL High 70 - 100 mg/dL [facility] Glucose [Mass/Vol] 154 mg/dL High 70 - 100 mg/dL [facility] Magnesium [Mass/Vol] 1.8 mg/dL 1.6 - 2 .6 mg/dL [facility] MAGNESIUMon 11-19-2024 Magnesium [Mass/Vol] 1.8 mg/dL Normal 1.6-2.6 [facility] Comment on above: Result Comment: SUKH Smith COMMENTS: Higher values can be expected in females during menses. Performed By: #### L AB15, [id number] ####Aquatic Ecologist: FREEMAN DOUGHERTY ([id number])[facility] ([facility] [place] [address] Magnesium [Mass/Vol]on 11-19 Interpretation and review of laboratory results Normal [facility] No Panel Informationon 11-19 Interpretation and review of laboratory results Abnormal [facility] Interpretation and review of laboratory results Abnormal [facility] Interpretation and review of laboratory results Abnormal [facility] Interpretation and review of laboratory results Abnormal [facility] Progress Noteon 11-19-2024 Progress Note PHYSICAL THERAPY [facility] Treatment Note Name/MRN: Carline Villarreal ([id number]) Date of : 1945 Age: 78 y.o. Room/Bed: R9-181/R6-679 A Visit #: 1 out of 7 Discharge Recommendation: Assisted Facility Equipment Needed: No Assessment 78 y/o female admitted from facility with SOB and decompensated heart failure. PMH as below and significant for stroke and dementia. Pt requires max assist +2 for bed mobility, max +2 for sit <> stand transfer. [facility] ([facility] LE adductor and (?) flexor tone in standing (lifting and adducting (L) LE off floor, does not weight bear through (L) LE), stand to FWW. Noted (L) UE tone as well. Pt would benefit from continued acute PT services and SNF at discharge to decrease level of assist and risk for falls. Subjective Cleared by RN for PT treatment. Pt received to PT supine in bed with HOB elevated, on room air, agreeable to PT, hand off directly to OT post PT treatment. Pain: Pt denies any current pain. Medical Precautions: No active isolations Proper PPE donned/doffed in accordance with facility standards. Fall Risk: Oleary Fall Risk Score: 60 (High Risk) Precautions/Restrictio ns: Fall Precautions Decreased (L) LE WB and increased tone in standing, dementia Overall Cognitive Status: Exceptions - Arousal/alertness: delayed responses to stimuli and at times inappropriate and perseverating on therapist's shoes, cues to redirect to task required - Following commands: follows one step commands with increased time and follows one step commands with repetition - Safety judgement: decreased awareness of need for assistance and decreased awareness of need for safety - Problem solving: assistance required to identify errors made and assistance required to correct errors made - Initiation: requires cues for all - Sequencing: requires cues for all Overall Orientation Status: Oriented to Person and hospital through she thinks she is at [place] Family/Caregiver Present: none Objective Bed Mobility Supine to sit: Max Assist, x2 Person Assist Sit to supine: Max Assist, x2 Person Assist HOB elevated, increased time to complete, assist at trunk and LE Transfers/Mobility Sit to stand: Max Assist, x2 Person Assist Stand to sit: Max Assist, x2 Person Assist Adductor tone in (L) LE, scissoring (L) LE across (R) (when returned back to supine, [facility] figure 4 pattern at (L) hip), decreased WB through (L) LE when standing. Device(s) used: Front wheeled walker and gait belt Balance During Session: Posture: fair Sitting - Static: Contact Guard Sitting - Dynamic: Contact Guard Standing - Static: Max Assist x 2 with FWW Plan Continue acute PT per plan of care. Safety/Education Safety Safety Devices in place: All fall risk precautions in place, call light within reach, left in bed, bed alarm in place, gait belt, and nurse notified Restraints: No Education Education Given To: patient Education Provided: PT Role, PT Goals, Plan of Care, Precautions, Transfer Training, Fall Prevention Education, and Benefits of Increasing Activity Education Method: Verbal Barriers to Learning: Cognition Education Outcome: Unable to Verbalize and Unable to Demonstrate Outcome Measures AM-PAC AM-PAC Inpatient Mobility Raw Score (No Stairs) : 7 JH-HLM JH-HLM Score: Static standing (1 or more minutes) Goals Patient Stated Goal: none stated at this time Encounter Problems Encounter Problems (Active) Balance Patient will maintain dynamic standing balance for 3 minutes with min assist in order to demonstrate decreased risk of falling. Start: 11/16/24 Expected End: 12/02/24 Patient will maintain static standing balance for 5 minutes with CGA in order to demonstrate decreased risk of falling. Start: 11/16/24 Expected End: 12/02/24 Exercise Patient will complete lower extremity exercises for 1-2 sets / 10-15 reps in order to improve strength and activity tolerance for mobility. Start: 11/16/24 Expected End: 12/02/24 Mobility Patient will ambulate 10 feet with min assist and least restrictive device in order to improve safety and independence with mobility. Start: 11/16/24 Expected End: 12/02/24 Transfers Patient will perform bed mobility with min assist in order to improve independence and prepare for out of bed mobility. Start: 11/16/24 Expected End: 12/02/24 Patient will complete functional transfer with least restrictive device with min assist in order to prepare for ambulation. Start: 11/16/24 Expected End: 12/02/24 Therapy Time Individual Co-treatment Time In 1210 Time Out 1219 Minutes 9 Timed Code Treatment Minutes: 9 Minutes (1 ther act) Ivelisse Harley, PT Normal [facility] Progress Note OCCUPATIONAL THERAPY [facility] Treatment Note Name/MRN: Carline Villarreal ([id number]) Date of : 1945 Age: 78 y.o. Room/Bed: B4-867/B4-251 A Visit #: 2 out of 7 Discharge Recommendation: Assisted Facility Equipment Needed: No Assessment Pt in bed upon arrival, agreeable to OT tx. Pt was MAX of 1-2 for bed-mobility, max of 2 for STS, max of 2 for functional transfers. Pt is progressing well with OT goals but still remains below baseline. Pt is limited by generalized weakness, decreased strength/endurance, increased instability, fall risk and cognition. Pt would continue to benefit from skilled OT therapy services to adapt to deficits and increase Occupational Performance. OT is rec SNF upon planned discharge. Subjective Ok to see per RN Pain: Pt denies any current pain. Medical Precautions: No active isolations Proper PPE donned/doffed in accordance with facility standards. Fall Risk: Oleary Fall Risk Score: 60 (High Risk) Precautions/Restrictio ns: N/A Family/Caregiver Present: none Objective Bed Mobility Supine to sit: Max Assist, x2 Person Assist Sit to supine: Max Assist, x2 Person Assist Rolling to right: Max Assist Rolling to left: Max Assist Scooting: Max Assist, X2 Assist HOB Elevated Use of bed rail(s) Pt completed supine to sit with max of 2 for trunk and LB mgmnt. No reports of dizziness with positional changes. Pt required max assist to scoot hips forward with use of draw pad. Pt return supine with max of 2 for trunk and LB mgmnt. Pt required max of 1 to roll L to R to adjust draw pad. Transfers/Mobility Sit to stand: Max Assist, x2 Person Assist Stand to sit: Max Assist, x2 Person Assist Standing balance: Max Assist, x2 Person Assist Pt completed x2 STS from EOB to fww with a max of 2 for STS d/t LLE abductor tone and not putting weight on LLE. Noted heavy reliance of fww. Pt participated in standing balance for ~1 min with max X2 for balance and v/c's with attempts to place LLE onto floor but noted LLE abductor tone. Device(s) used: Front wheeled walker Cognition Overall Cognitive Status: Exceptions - Following commands: follows one step commands with repetition - Attention span: attends with cues to redirect - Memory: decreased recall of recent events and decreased short term memory - Safety judgement: decreased awareness of need for assistance and decreased awareness of need for safety - Problem solving: assistance required to identify errors made and assistance required to correct errors made - Insights: decreased awareness of deficits - Initiation: requires cues for some - Sequencing: requires cues for some Overall Orientation Status: Oriented to Situation, Oriented to Person, and Disoriented to Place Plan Continue acute OT per plan of care. Safety/Education Safety Safety Devices in place: All fall risk precautions in place, call light within reach, left in bed, gait belt, patient at risk for falls, nurse notified, and no alarms engaged upon entry Restraints: No Education Education Given To: patient Education Provided: OT Role, Plan of Care, Transfer Training, Energy Conservation, Equipment, Fall Prevention Education, Discharge Recommendations, and Benefits of Increasing Activity Education Method: Verbal, Demonstration, and Teach Back Barriers to Learning: Cognition Education Outcome: Continued Education Needed AM-PAC AM-PAC Inpatient Daily Activity Raw Score: 10 ADL Inpatient CMS G-Code Modifier: CL Goals Patient Stated Goal: To get up to the bathroom. Encounter Problems Encounter Problems (Active) Dressing Upper Extremities Patient will complete upper body dressing SBA (Not Addressed) Start: 11/15/24 Expected End: 11/25/24 Dressings Lower Extremities Patient will dress lower body MIN A (Not Addressed) Start: 11/15/24 Expected End: 11/25/24 Mobility Patient will demonstrate functional mobility with MOD A and FWW (Not Addressed) Start: 11/15/24 Expected End: 11/25/24 Therapeutic Exercise Pt will demo good participation in BUE exercises to increase endurance and strength for participation in ADLs and functional transfers / bed mobility. (Not Addressed) Start: 11/15/24 Expected End: 11/25/24 Toileting Patient will complete toileting tasks at bedside commode with mod assist. (Not Addressed) Start: 11/15/24 Expected End: 11/25/24 Transfers Patient will complete functional transfer with rolling walker with mod assist in order to prepare for ambulation. (Progressing) Start: 11/15/24 Expected End: 11/25/24 Patient will perform bed mobility with supervision in order to improve independence and prepare for out of bed mobility. (Progressing) Start: 11/15/24 Expected End: 11/25/24 Therapy Time Individual Co-treatment Time In 1213 Time Out 1230 Minutes 17 Timed Code Treatment Minutes: 17 Minutes (1 ACT) FABI Hickey/Nicole [facility] Progress Note Speech-Language Pathology SPEECH LANGUAGE PATHOLOGY [facility] Dysphagia Treatment Note Patient Name: Carline Villarreal Evaluation Date: 11/19/2024 Date of : 1945 Admission Date: 11/13/2024 10:39 AM Age: 78 y.o. Room/Bed: B4-466/B4-466 A Subjective Patient alert and cooperative. Seen upright in bed. Answers all basic questions with clear vocal quality. Follows all basic commands. No visitors at bedside. Spoke with RN Meka who cleared pt for treatment. Current Diet: Dietary Orders (From admission, onward) Start Ordered 11/18/24 1156 Adult diet Dysphagia - Pureed Diet effective now Question: Diet type Answer: Dysphagia - Pureed 11/18/24 1155 Aspiration Precautions: - Upright positioning for all PO intake - Slow rate of intake - Small bites/sips - Check mouth for pocketing - PO only when fully alert Oxygen: Oxygen Therapy: None (Room air) O2 Delivery Method: Nasal cannula O2 Flow Rate (L/min): 3 L/min Pain: Pt denies any current pain. PPE Worn: gloves Objective & Assessment Dysphagia Treatment # of Activities: 2 Dysphagia Activity 1: Assessment of diet tolerance Dysphagia Activity 2: Assess for potential diet upgrade Patient agreeable to therapy session this date, reports eating breakfast without difficulty. Patient remains on puree diet and thin liquids. Patient trialed bites of puree texture with adequate bolus containment, increased rate of intake noted when patient is able to self-feed puree items. Patient trialed small amount of regular texture with amount controlled by clinician. Patient with decreased bolus awareness and manipulation due to edentulous state, moderate residuals remain in oral cavity in which prompted liquid was does not clear. Patient does not exhibit overt s/s airway compromise, however, remains unsafe for diet upgrade due to amount of residuals and decreased awareness. Plan & Recommendations Plan: Continue acute TECHNICAL ASST therapy per initial plan of care and established goals. Recommend Pureed solids and Thin liquids and meds crushed in puree and the following precautions: - Upright positioning for all PO intake - Slow rate of intake - Small bites/sips - Check mouth for pocketing - PO only when fully alert D/C Recommendations: to be determined Education Education Given: swallowing strategies, diet recommendations Given To: patient and RN Response: needs reinforcement Goals Patient Stated Goal: To have a drink of water Encounter Problems Encounter Problems (Active) Swallowing Patient will tolerate the least restrictive diet consistency to allow for safe consumption of daily meals (Progressing) Start: 11/17/24 Patient will demonstrate safe swallowing Intervention/technique s (Progressing) Start: 11/17/24 Therapy Time TECHNICAL ASST Individual Minutes Time In: 955 Time Out: 1012 Minutes: 16 Herber Simmons MA, CCC-TECHNICAL ASST [facility] Progress Note [facility], Pulmonary Medicine [address] [place] [address] [phone] Patient - Carline Villarreal, Age - 78 y.o. - 1945 Room Number - B4-466/B4-466 A Consulting - Sivakumar Walton MD Primary Care Physician - Evi Guevara Acct: No I do not have problem with the patient you know he was kind of he wanted to go home today I just kept him so Maybe can do little earlier okay [id number] Date of Admission - 11/13/2024 10:39 AM Hospital Day - 6 Chief Complaint Carline Villarreal is a 78 y.o. female who pulmonary is following for respiratory failure Interval History Patient seen comfortably on the bed no acute distress afebrile Complaining of headache No nausea no vomiting Chest x-ray 11/17 No acute infiltrate no significant change from previous chest x-ray HPI Carline Villarreal is a 78 y.o. female admitted for Shortness of breath noted to be in acute hypoxic hypercapnic respiratory failure decompensated congestive heart failure Patient does have a history of dementia as per chart group home resident, diabetes mellitus hypertension stroke Admitted with above complaint Initial VBG did show pH 7.229 pCO2 of 55 pO2 of 32 Patient received IV Lasix diuresed well placed on NIV Follow-up VBG showed pH 7.74 pCO2 of 30 and PO2 of 47 EKG showed T inversion ST ST depression elevated troponin This morning apparently has episode of tachyarrhythmia as per cardiology atrial fibrillation Her saturation was 97 percentile feeling much better this morning however she is not a good historian Currently she was on room air saturation was 97 percentile Never smoked Not on PAP therapy at home Apparently came from [facility] Chest x-ray reviewed interpreted by me Vascular congestion with a small bilateral pleural effusion All other systems reviewed Objective Vitals: BP 149/69 Pulse 69 Temp 36.6 ?C (97.9 ?F) (Temporal) Resp 18 Ht 5' 5 (1.651 m) Wt 210 lb (95.3 kg) SpO2 99% BMI 34.95 kg/m? Pulse Ox: SpO2 Av.7 % Min: 98 % Max: 99 % Supplemental O2: O2 Flow Rate (L/min): 3 L/min I/O 24HR INTAKE/OUTPUT: Intake/Output Summary (Last 24 hours) at 11/19/2024 1051 Last data filed at 11/18/20242014 Gross per 24 hour Intake -- Output 1 ml Net -1 ml Exam General appearance: Awake and alert no distress HEENT: Normocephalic, atraumatic. Pupils equil and round, External ear normal, conjunctivae normal, negative for scleral icterus. No congestion. Neck: ROM normal, supple, trachea midline. No lymphadenopathy Cardiovascular: Irregular rhythm. Heart sounds normal. Negative for murmur, friction rub or gallop. Tachycardic Pulmonary: Effort normal, no respiratory distress. Moderate air entry Rales posteriorly No wheezing Abdomen: Soft, non distended, non tender, bowel sounds normal. No palpable masses. No Hepatomegaly Musculoskeletal: ROM normal, Negative for swelling, tenderness or deformity. Skin: Warm, dry. Skin color, texture, turgor normal. Negative for rashes or lesions. Extremities: No clubbing, cyanosis, 1+ bipedal edema Neurological: No focal deficits. Alert and oriented x 1. Cranial nerves II-XII are intact Lymphatics: No cervical or axillary lymphadenopathy Psychiatric: Mood, behavior, thought content normal. Cooperative with exam. Medications Current Medications Scheduled Meds[1] PRN Mediations PRN Meds[2] IV Drips/Infusions Continuous Meds[3] Labs CBC Results from last 7 days Lab Units 11/19/24 0223 WBC AUTO 10*3/uL 13.3* HEMOGLOBIN g/dL 13.3 HEMATOCRIT % 39.8 PLATELETS 10*3/uL 248 BMP: Results from last 7 days Lab Units 11/19/24 0223 11/18/24 0537 11/17/24 1316 SODIUM mmol/L 138 144 144 POTASSIUM mmol/L 3.3* 2.9* 3.2* CHLORIDE mmol/L 106 108* 108* CO2 mmol/L 20* 23 22* BUN mg/dL 59* 68* 70* CREATININE mg/dL 1.60* 1.76* 2.26* GLUCOSE mg/dL 142* 168* 244* CALCIUM mg/dL 8.3* 8.1* 8.3* ABG: Results from last 7 days Lab Units 11/13/24 1532 11/13/24 1056 SOURCE OF OXYGEN Nasal Cannula (LPM) Nasal Cannula (LPM) LIVER PROFILE Results from last 7 days Lab Units 11/17/24 1316 11/13/24 1056 ALK PHOS U/L 74 101 BILIRUBIN TOTAL mg/dL 0.8 0.6 PROTEIN TOTAL g/dL 6.4 6.8 ALT U/L 51* 11 AST U/L 65* 20 INR PTT No results found for: PTT Cultures Influence pcr neg Radiology Exam Date/Time: 11/13/2024 11:11 Procedure: XR CHEST 1 VIEW Ordering Provider: SALEEM AMY Reason For Exam: COUGH CHEST - PORTABLE: CLINICAL INDICATION: COUGH TECHNIQUE: Portable AP COMPARISON: None. IMPRESSION: FINDINGS/IMPRESSION: Limitations: Mild patient rotation Lines, tubes, and devices: None. Cardiomediastinal silhouette: Heart size is within normal limits. Atherosclerotic calcifications in the thoracic aorta. Lungs/Pleura: Pulmonary vascular congestion right side greater than left. Additional hazy and streaky opacities right greater than left lung base susp (more content not included)... Normal [facility] 30on 11-18-2024 30 Problem: Knowledge Deficit Goal: Patient/family/caregiv er demonstrates understanding of disease process, treatment plan, medications, and discharge instructions Outcome: Progressing Problem: Potential for Compromised Skin Integrity Goal: Skin Integrity is Maintained or Improved Outcome: Progressing Normal [facility] BASIC METABOLIC PANELon 05-1 Anion gap [Moles/Vol] 13 mmol/L Normal 3-13 [facility] Comment on above: Performed By: #### L [id number] ####Aquatic Ecologist: FREEMAN DOUGHERTY ([id number])[facility] (SBHLAB)[address] Calcium [Mass/Vol] 8.1 mg/dL Low 8.8-10.0 [facility] Comment on above: Performed By: #### L [id number] ####Aquatic Ecologist: FREEMAN DOUGHERTY ([id number])[facility] (SBHLAB)[address] Chloride [Moles/Vol] 108 mmol/L High 98-107 [facility] Comment on above: Performed By: #### L [id number] ####Aquatic Ecologist: FREEMAN DOUGHERTY ([id number])[facility] [place] (SBHLAB)[address] CO2 [Moles/Vol] 23 mmol/L Normal 23-31 [facility] Comment on above: Performed By: #### L [id number] ####Aquatic Ecologist: FREEMAN DOUGHERTY ([id number])[facility] (SBHLAB)[address] Creatinine [Mass/Vol] 1.76 mg/dL High 0.57-1.11 [facility] Comment on above: Performed By: #### L [id number] ####Aquatic Ecologist: FREEMAN DOUGHERTY ([id number])[facility] ([facility] [place] [address] [place] GLOMERULAR FILTRATION RATE ML/MIN/1.73 SQ M.PREDICTED 29.3 mL/min/1.73m*2 Low >60.0 [facility] Comment on above: Result Comment: Calc ulation based on the Chronic Kidney Disease Epidemiology Collaboration (CKD-EPI) equation refit without adjustment for race Performed By: #### L [id number] ####Aquatic Ecologist: FREEMAN DOUGHERTY ([id number])[facility] (HLAB)[address] [place] [address] [place] Glucose [Mass/Vol] 168 mg/dL High 82-115 [facility] Comment on above: Performed By: #### L [id number] ####Aquatic Ecologist: FREEMAN DOUGHERTY ([id number])[facility] (HLAB)[address] [place] [address] [place] Potassium [Moles/Vol] 2.9 mmol/L Low 3.5-5.1 [facility] Comment on above: Result Comment: [facility] potassium values may be up to 0.5 mmol/L lower than serum values. Performed By: #### L [id number] ####Aquatic Ecologist: FREEMAN DOUGHERTY ([id number])[facility] (SBHLAB)[address] Sodium [Moles/Vol] 144 mmol/L Normal 136-145 [facility] Comment on above: Performed By: #### L [id number] ####Aquatic Ecologist: FREEMAN SUAREZMartinaMICHAEL ([id number])[facility] BROCKREHOB[facility] M[facility] C[facility] SERVICESJoe (SBHLAB)[address] Urea nitrogen [Mass/Vol] 68 mg/dL High 9-23 [facility] Comment on above: Performed By: #### L [id number] ####Aquatic Ecologist: FREEMAN MURPHYMICHAEL ([id number])[facility] (SBHLAB)[address] Bacteria identified Cx Nom ( Bld)on 11-18-2024 Interpretation and review of laboratory results Normal [facility] Basic metabolic 1998 panelon 11-18-2024 Anion gap [Moles/Vol] 13 mmol/L 3 - 13 mmol/L [facility] Calcium [Mass/Vol] 8.1 mg/dL Low 8.8 - 10. 0 mg/dL [facility] Chloride [Moles/Vol] 108 mmol/L High 98 - 10 7 mmol/L [facility] CO2 [Moles/Vol] 23 mmol/L 23 - 31 mmol/L [facility] Creatinine [Mass/Vol] 1.76 mg/dL High 0.57 - 1.11 mg/dL [facility] GFR/1.73 sq M.predicted (S/P/Bld) [Vol rate/Area] 29.3 mL/min Low - PINF [facility] Glucose [Mass/Vol] 168 mg/dL High 82 - 115 mg/dL [facility] Interpretation and review of laboratory results Abnormal [facility] Potassium [Moles/Vol] 2.9 mmol/L Low 3.5 - 5.1 mmol/L [facility] Sodium [Moles/Vol] 144 mmol/L 136 - 145 mmol/L [facility] Urea nitrogen [Mass/Vol] 68 mg/dL High 9 - 23 mg/dL [facility] CBC W Auto Differential pane l (Bld)on 11-18-2024 Basophils (Bld) [#/Vol] 0 10*3/uL 0.0 - 0.2 10*3/uL [facility] Basophils/100 WBC (Bld) 0.3 % 0.0 - 2.0 % [facility] Eosinophils (Bld) [#/Vol] 0.3 10*3/uL 0.0 - 0.5 10*3/uL [facility] Eosinophils/100 WBC (Bld) 2.1 % 0.0 - 6.0 % [facility] Erythrocyte distribution width (RBC) [Ratio] 14.2 % 11.5 - 15.0 % [facility] Hematocrit (Bld) [Volume fraction] 39.1 % 35.0 - 47.0 % [facility] Hemoglobin (Bld) [Mass/Vol] 12.7 g/dL 11.7 - 16.0 g/dL [facility] Immature granulocytes (Bld) [#/Vol] 0.1 10*3/uL High NINF - 0.1 10*3/uL [facility] Immature granulocytes/100 WBC (Bld) 0.4 % 0.0 - 2.0 % [facility] Interpretation and review of laboratory results Abnormal [facility] Lymphocytes (Bld) [#/Vol] 1.2 10*3/uL 1.0 - 4.3 10*3/uL [facility] Lymphocytes/100 WBC (Bld) 10 % Low 15.0 - 45.0 % [facility] MCH (RBC) [Entitic mass] 31.4 pg 26.0 - 34.0 pg [facility] MCHC (RBC) [Mass/Vol] 32.5 % 30.5 - 36.0 % [facility] MCV (RBC) [Entitic vol] 96.5 fL 77.0 - 99.0 fL [facility] Monocytes (Bld) [#/Vol] 0.7 10*3/uL 0.0 - 0.9 10*3/uL [facility] Monocytes/100 WBC (Bld) 5.9 % 5.0 - 13.0 % [facility] Neutrophils (Bld) [#/Vol] 9.9 10*3/uL High 1.8 - 7.5 10*3/uL [facility] Neutrophils/100 WBC (Bld) 81.3 % 38.0 - 82.0 % [facility] Nucleated RBC/100 WBC (Bld) [Ratio] 0.2 % [facility] Platelet mean volume (Bld) [Entitic vol] 11.4 fL 9.0 - 12.7 fL [facility] Platelets (Bld) [#/Vol] 231 10*3/uL 140 - 440 10*3/uL [facility] RBC (Bld) [#/Vol] 4.05 10*6/uL 3.80 - 5.2 0 10*6/uL [facility] WBC (Bld) [#/Vol] 12.2 10*3/uL High 3.6 - 10.7 10*3/uL [facility] CBC WITH AUTO DIFFERENTIALon 11-18-2024 Basophils (Bld) [#/Vol] 0.0 10*3/uL Normal 0.0-0.2 [facility] Comment on above: Performed By: #### L [id number] ####Aquatic Ecologist: FREEMAN DOUGHERTY ([id number])[facility] ([facility])[address] [place] [address] Basophils/100 WBC (Bld) 0.3 % Normal 0.0-2.0 [facility] Comment on above: Performed By: #### L [id number] ####Aquatic Ecologist: FREEMAN DOUGHERTY ([id number])[facility] ([facility])[address] [place] [address] Eosinophils (Bld) [#/Vol] 0.3 10*3/uL Normal 0.0-0.5 [facility] Comment on above: Performed By: #### L [id number] ####Aquatic Ecologist: FREEMAN DOUGHERTY ([id number])[facility] (SBAB)[address] Eosinophils/100 WBC (Bld) 2.1 % Normal 0.0-6.0 [facility] Comment on above: Performed By: #### L [id number] ####Aquatic Ecologist: FREEMAN DOUGHERTY ([id number])[facility] ([facility])[address] Erythrocyte distribution width (RBC) [Ratio] 14.2 % Normal 11.5-15.0 [facility] Comment on above: Performed By: #### L [id number] ####Aquatic Ecologist: FREEMAN MURPHYMICHAEL ([id number])[facility] ([facility])[address] [place] [address] Hematocrit (Bld) [Volume fraction] 39.1 % Normal 35.0-47.0 [facility] Comment on above: Performed By: #### L [id number] ####Aquatic Ecologist: FREEMAN MURPHYMICHAEL ([id number])[facility] ([facility])[address] [place] [address] Hemoglobin (Bld) [Mass/Vol] 12.7 g/dL Normal 11.7-16.0 [facility] Comment on above: Performed By: #### L [id number] ####Aquatic Ecologist: FREEMAN MURPHYMICHAEL ([id number])[facility] ([facility])[address] [place] [address] IMMATURE GRANS % 0.4 % Normal 0.0-2.[address] [facility] Comment on above: Performed By: #### L [id number] ####Aquatic Ecologist: FREEMAN DOUGHERTY ([id number])[facility] ([facility])[address] [place] [address] IMMATURE GRANS ABSOLUTE 0.1 10*3/uL High <0.1 [facility] Comment on above: Performed By: #### L [id number] ####Aquatic Ecologist: FREEMAN DOUGHERTY ([id number])[facility] ([facility])[address] [place] [address] Lymphocytes (Bld) [#/Vol] 1.2 10*3/uL Normal 1.0-4.3 [facility] Comment on above: Performed By: #### L [id number] ####Aquatic Ecologist: FREEMAN DOUGHERTY ([id number])[facility] ([facility])[address] [place] [address] Lymphocytes/100 WBC (Bld) 10.0 % Low 15.0-45.0 [facility] Comment on above: Performed By: #### L [id number] ####Aquatic Ecologist: FREEMAN SUAREZMartinaMICHAEL ([id number])[facility] [place] (SBHLAB)[address] MCH (RBC) [Entitic mass] 31.4 pg Normal 26.0-34.0 [facility] Comment on above: Performed By: #### L [id number] ####Aquatic Ecologist: FREEMAN FARHAT ([id number])[facility] (SBHLAB)[address] MCHC 32.5 % Normal 30.5-36.0 [facility] Comment on above: Performed By: #### L [id number] ####Aquatic Ecologist: FREEMAN FARHAT ([id number])[facility] [place] (SBHLAB)[address] [place] [address] MCV (RBC) [Entitic vol] 96.5 fL Normal 77.0-99.0 [facility] Comment on above: Performed By: #### L [id number] ####Aquatic Ecologist: FREEMAN MURPHYMICHAEL ([id number])[facility] (SB[facility])[address] [place] [address] Monocytes (Bld) [#/Vol] 0.7 10*3/uL Normal 0.0-0.9 [facility] Comment on above: Performed By: #### L [id number] ####Aquatic Ecologist: FREEMAN DOUGHERTY ([id number])[facility] SERVICES[facility] (SBHLAB)[address] [place] [address] Monocytes/100 WBC (Bld) 5.9 % Normal 5.0-13.0 [facility] Comment on above: Performed By: #### L [id number] ####Aquatic Ecologist: FREEMAN DOUGHERTY ([id number])[facility] SERVICESN (SBHLAB)[address] NEUTROPHILS ABSOLUTE 9.9 10*3/uL High 1.8-7.5 [facility] Comment on above: Performed By: #### L [id number] ####Aquatic Ecologist: FREEMAN DOUGHERTY ([id number])[facility] [place] (SBHLAB)[address] Neutrophils/100 WBC (Bld) 81.3 % Normal 38.0-82.0 [facility] Comment on above: Performed By: #### L [id number] ####Aquatic Ecologist: FREEMAN DOUGHERTY ([id number])[facility] [place] (SBHLAB)[address] NRBC 0.2 /100 WBCs Normal 0.0-2.0 [facility] Comment on above: Performed By: #### L [id number] ####Aquatic Ecologist: FREEMAN DOUGHERTY ([id number])[facility] [place] (SBHLAB)[address] Platelet mean volume (Bld) [Entitic vol] 11.4 fL Normal 9.0-12.7 [facility] Comment on above: Performed By: #### L [id number] ####Aquatic Ecologist: FREEMAN DOUGHERTY ([id number])[facility] [place] (SB[facility]AB)[address] [place] [address] [place] Platelets (Bld) [#/Vol] 231 10*3/uL Normal 140-440 [facility] Comment on above: Performed By: #### L [id number] ####Aquatic Ecologist: FREEMAN DOUGHERTY ([id number])[facility] [place] ([facility])[address] [place] [address] [place] RBC (Bld) [#/Vol] 4.05 10*6/uL Normal 3.80-5.20 [facility] Comment on above: Performed By: #### L [id number] ####Aquatic Ecologist: FREEMAN DOUGHERTY ([id number])[facility] [place] ([facility])[address] WBC (Bld) [#/Vol] 12.2 10*3/uL High 3.6-10.7 [facility] Comment on above: Performed By: #### L [id number] ####Aquatic Ecologist: FREEMAN DOUGHERTY ([id number])[facility] (SB[facility])[address] [place] [address] Laboratory - Chemistry and C hemistry - challengeon 11-18-2024 Glucose [Mass/Vol] 199 mg/dL High 70 - 100 mg/dL [facility] Glucose [Mass/Vol] 98 mg/dL 70 - 100 mg/dL [facility] Glucose [Mass/Vol] 262 mg/dL High 70 - 100 mg/dL [facility] Glucose [Mass/Vol] 162 mg/dL High 70 - 100 mg/dL [facility] Laboratory - Microbiology an d Antimicrobial susceptibilityon 11-18-2024 Bacteria identified Cx Nom (Bld) No growth at 5 days [facility] No Panel Informationon 11-18 Interpretation and review of laboratory results Abnormal [facility] Interpretation and review of laboratory results Normal [facility] Interpretation and review of laboratory results Abnormal [facility] Interpretation and review of laboratory results Abnormal [facility] Progress Noteon 11-18-2024 Progress Note Speech-Language Pathology SPEECH LANGUAGE PATHOLOGY [facility] Dysphagia Treatment Note Patient Name: Carline Villarreal Evaluation Date: 11/18/2024 Date of : 1945 Admission Date: 11/13/2024 10:39 AM Age: 78 y.o. [facility]Bed: [facility] A Subjective Patient alert and cooperative. Seen upright in bed. Answers all basic questions with clear vocal quality. Follows all basic commands. No visitors at bedside. Spoke with WEI Ackerman who cleared pt for treatment. Current Diet: Dietary Orders (From admission, onward) Start Ordered 11/13/24 1500 Adult diet Regular Diet effective now Question: Diet type Answer: Regular 11/13/24 1507 Aspiration Precautions: - Upright positioning for all PO intake - Slow rate of intake - Small bites/sips - 1:1 Assistance - PO only when fully alert Oxygen: Oxygen Therapy: Supplemental oxygen O2 Delivery Method: Nasal cannula O2 Flow Rate (L/min): 3 L/min Pain: Pt denies any current pain. PPE Worn: gloves Objective & Assessment Dysphagia Treatment # of Activities: 1 Dysphagia Activity 1: Assessment of diet tolerance Noted patient's recommendation of puree diet with thin liquids; pt remains on regular diet. Patient reports consuming pancake this morning, unable to recall previous date meal consumption/order. Patient consumed pudding trials with therapist via clinician feed without difficulty. Patient trialed small amount of jem cracker moistened with pudding due to edentulous state. Patient with decreased mastication noted and moderate amount of unchewed cracker remain in the left buccal cavity in which patient is unaware of and unable to remove independently. Patient intakes sips of thin liquid via straw without difficulty. Patient does not exhibit overt s/s airway compromise or change in vocal quality during session this date. Messaged RN and MD re: diet recommendations from previous date and continued recommendation for puree textures. Plan & Recommendations Plan: Continue acute TECHNICAL ASST therapy per initial plan of care and established goals. Recommend Pureed solids and Thin liquids and meds crushed in puree and the following precautions: - Upright positioning for all PO intake - Slow rate of intake - Small bites/sips - Check mouth for pocketing - PO only when fully alert D/C Recommendations: to be determined Education Education Given: swallowing strategies, diet recommendations Given To: patient Response: needs reinforcement Goals Patient Stated Goal: To have a drink of water Encounter Problems Encounter Problems (Active) Swallowing Patient will tolerate the least restrictive diet consistency to allow for safe consumption of daily meals (Progressing) Start: 11/17/24 Patient will demonstrate safe swallowing Intervention/technique s (Progressing) Start: 11/17/24 Therapy Time TECHNICAL ASST Individual Minutes Time In: 1022 Time Out: 1042 Minutes: 20 Herber Simmons MA, [facility] Progress Note [facility], Pulmonary Medicine [address] [place] [address] Patient - Carline Villarreal, Age - 78 y.o. - 1945 Room Number - [id number]/[id number] A Consulting - Sivakumar Walton MD Primary Care Physician - Evi Guevara Acct: No I do not have problem with the patient you know he was kind of he wanted to go home today I just kept him so Maybe can do little earlier okay [phone]- [id number] Date of Admission - 11/13/2024 10:39 AM Hospital Day - 5 Chief Complaint Carline Villarreal is a 78 y.o. female who pulmonary is following for respiratory failure Interval History Patient awake and alert talking no distress currently on room air Saturation 97% She is afebrile Chest x-ray 11/17 No acute infiltrate no significant change from previous chest x-ray HPI Carline Villarreal is a 78 y.o. female admitted for Shortness of breath noted to be in acute hypoxic hypercapnic respiratory failure decompensated congestive heart failure Patient does have a history of dementia as per chart group home resident, diabetes mellitus hypertension stroke Admitted with above complaint Initial VBG did show pH 7.229 pCO2 of 55 pO2 of 32 Patient received IV Lasix diuresed well placed on NIV Follow-up VBG showed pH 7.74 pCO2 of 30 and PO2 of 47 EKG showed T inversion ST ST depression elevated troponin This morning apparently has episode of tachyarrhythmia as per cardiology atrial fibrillation Her saturation was 97 percentile feeling much better this morning however she is not a good historian Currently she was on room air saturation was 97 percentile Never smoked Not on PAP therapy at home Apparently came from [facility] years ago Chest x-ray reviewed interpreted by me Vascular congestion with a small bilateral pleural effusion All other systems reviewed Objective Vitals: BP 113/77 (BP Location: Right arm, Patient Position: Lying) Pulse 77 Temp 36.2 ?C (97.2 ?F) (Temporal) Resp 18 Ht 5' 5 (1.651 m) Wt 210 lb (95.3 kg) SpO2 99% BMI 34.95 kg/m? Pulse Ox: SpO2 Av.8 % Min: 97 % Max: 100 % Supplemental O2: O2 Flow Rate (L/min): 3 L/min I/O 24HR INTAKE/OUTPUT: Intake/Output Summary (Last 24 hours) at 11/18/2024 1124 Last data filed at 11/18/2024 0814 Gross per 24 hour Intake 220 ml Output -- Net 220 ml Exam General appearance: Appears comfortable no distress on room air sat 97% HEENT: Normocephalic, atraumatic. Pupils equil and round, External ear normal, conjunctivae normal, negative for scleral icterus. No congestion. Neck: ROM normal, supple, trachea midline. No lymphadenopathy Cardiovascular: Irregular rhythm. Heart sounds normal. Negative for murmur, friction rub or gallop. Tachycardic Pulmonary: Effort normal, no respiratory distress. Moderate air entry Rales posteriorly No wheezing Abdomen: Soft, non distended, non tender, bowel sounds normal. No palpable masses. No Hepatomegaly Musculoskeletal: ROM normal, Negative for swelling, tenderness or deformity. Skin: Warm, dry. Skin color, texture, turgor normal. Negative for rashes or lesions. Extremities: No clubbing, cyanosis, 1+ bipedal edema Neurological: No focal deficits. Alert and oriented x 1. Cranial nerves II-XII are intact Lymphatics: No cervical or axillary lymphadenopathy Psychiatric: Mood, behavior, thought content normal. Cooperative with exam. Medications Current Medications Scheduled Meds[1] PRN Mediations PRN Meds[2] IV Drips/Infusions Continuous Meds[3] Labs CBC Results from last 7 days Lab Units 11/18/24 0537 WBC AUTO 10*3/uL 12.2* HEMOGLOBIN g/dL 12.7 HEMATOCRIT % 39.1 PLATELETS 10*3/uL 231 BMP: Results from last 7 days Lab Units 11/18/24 0537 11/17/24 1316 11/16/24 0456 SODIUM mmol/L 144 144 142 POTASSIUM mmol/L 2.9* 3.2* 3.4* CHLORIDE mmol/L 108* 108* 105 CO2 mmol/L 23 22* 23 BUN mg/dL 68* 70* 47* CREATININE mg/dL 1.76* 2.26* 1.65* GLUCOSE mg/dL 168* 244* 165* CALCIUM mg/dL 8.1* 8.3* 9.1 ABG: Results from last 7 days Lab Units 11/13/24 1532 11/13/24 1056 SOURCE OF OXYGEN Nasal Cannula (LPM) Nasal Cannula (LPM) LIVER PROFILE Results from last 7 days Lab Units 11/17/24 1316 11/13/24 1056 ALK PHOS U/L 74 101 BILIRUBIN TOTAL mg/dL 0.8 0.6 PROTEIN TOTAL g/dL 6.4 6.8 ALT U/L 51* 11 AST U/L 65* 20 INR PTT No results found for: PTT Cultures Influence pcr neg Radiology Exam Date/Time: 11/13/2024 11:11 Procedure: XR CHEST 1 VIEW Ordering Provider: SALEEM AMY Reason For Exam: COUGH CHEST - PORTABLE: CLINICAL INDICATION: COUGH TECHNIQUE: Portable AP COMPARISON: None. IMPRESSION: FINDINGS/IMPRESSION: Limitations: Mild patient rotation Lines, tubes, and devices: None. Cardiomediastinal silhouette: Heart size is within normal limits. Atherosclerotic calcifications in the thoracic aorta. Lungs/Pleura: Pulmonary vascular congestion right side greater than left. Additional h (more content not included)... [facility] Progress Note PHYSICAL THERAPY [facility] Name/MRN: Carline Villarreal ([id number]) Date: 11/18/2024 Chart review completed. PT attempted. Patient with family, visiting at bedside. 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 Max encouragement provided with no success. PT will continue to follow. Will re-attempt another time/date as schedule permits. Chante Pollard, ANJANA [facility] Progress Note Pt chart reviewed an d attempted to see. Pt with visitors in room, declining therapy at this time. Will continue to monitor and reattempt as schedule allows. Alba DUNLAP/Nicole [facility] 30on 11-17-2024 30 Problem: Potential f or Compromised Skin Integrity Goal: Skin Integrity is Maintained or Improved Outcome: Progressing Flowsheets (Taken 11/17/2024 0553) Skin integrity is maintained or improved: Assess and monitor skin integrity Relieve pressure to bony prominences Keep skin clean and dry Encourage use of lotion/moisturizer on skin Avoid shearing Problem: Urinary Incontinence Goal: Perineal skin integrity is maintained or improved Outcome: Progressing Flowsheets (Taken 11/17/2024 0553) Perineal skin integrity is maintained or improved: Assess genitourinary system, perineal skin, labs (urinalysis), and history of incontinence to include past management, aggravating, and alleviating factors Keep skin clean and dry Apply skin protectant [facility] BLOOD CULTUREon 11-17-2024 Bacteria identified Cx Nom (Bld) BLOOD CULTURE Reference No growth at 5 days ORDER COMMENTS: Blood Collection Site: Right Wrist [ S = SUSCEPTIBLE R = RESISTANT I = INTERMEDIATE S-DD = Susceptible-dose dependent NS = Non-susceptible NO = No Interpretation ] [facility] Comment on above: Performed By: #### L [id number] #### Aquatic Ecologist: LOLY BUI ([id number]) [facility] ([facility]) [address] [place] [address] Bacteria identified Cx Nom (Bld) BLOOD CULTURE Reference No growth at 5 days ORDER COMMENTS: Blood Collection Site: Left Hand [ S = SUSCEPTIBLE R = RESISTANT I = INTERMEDIATE S-DD = Susceptible-dose dependent NS = Non-susceptible NO = No Interpretation ] Normal [facility] Comment on above: Performed By: #### L [id number] ####Aquatic Ecologist: LOLY BUI ([id number])[facility] [place] [address] CBC W Auto Differential pane l (Bld)on 11-17-2024 Basophils (Bld) [#/Vol] 0 10*3/uL 0.0 - 0.2 10*3/uL [facility] Basophils/100 WBC (Bld) 0.3 % 0.0 - 2.0 % [facility] Eosinophils (Bld) [#/Vol] 0 10*3/uL 0.0 - 0.5 10*3/uL [facility] Eosinophils/100 WBC (Bld) 0.2 % 0.0 - 6.0 % [facility] Erythrocyte distribution width (RBC) [Ratio] 14.3 % 11.5 - 15.0 % [facility] Hematocrit (Bld) [Volume fraction] 39.1 % 35.0 - 47.0 % [facility] Hemoglobin (Bld) [Mass/Vol] 13.3 g/dL 11.7 - 16.0 g/dL [facility] Immature granulocytes (Bld) [#/Vol] 0.1 10*3/uL High NINF - 0.1 10*3/uL [facility] Immature granulocytes/100 WBC (Bld) 0.5 % 0.0 - 2.0 % [facility] Interpretation and review of laboratory results Abnormal [facility] Lymphocytes (Bld) [#/Vol] 1.5 10*3/uL 1.0 - 4.3 10*3/uL [facility] Lymphocytes/100 WBC (Bld) 10.3 % Low 15.0 - 45.0 % [facility] MCH (RBC) [Entitic mass] 32 pg 26.0 - 34.0 pg [facility] MCHC (RBC) [Mass/Vol] 34 % 30.5 - 36.0 % [facility] MCV (RBC) [Entitic vol] 94.2 fL 77.0 - 99.0 fL [facility] Monocytes (Bld) [#/Vol] 1.1 10*3/uL High 0.0 - 0.9 10*3/uL [facility] Monocytes/100 WBC (Bld) 7.3 % 5.0 - 13.0 % [facility] Neutrophils (Bld) [#/Vol] 11.9 10*3/uL High 1.8 - 7.5 10*3/uL [facility] Neutrophils/100 WBC (Bld) 81.4 % 38.0 - 82.0 % [facility] Nucleated RBC/100 WBC (Bld) [Ratio] 0.2 % [facility] Platelet mean volume (Bld) [Entitic vol] 11.4 fL 9.0 - 12.7 fL [facility] Platelets (Bld) [#/Vol] 280 10*3/uL 140 - 440 10*3/uL [facility] RBC (Bld) [#/Vol] 4.15 10*6/uL 3.80 - 5.2 0 10*6/uL [facility] WBC (Bld) [#/Vol] 14.7 10*3/uL High 3.6 - 10.7 10*3/uL [facility] CBC WITH AUTO DIFFERENTIALon 11-17-2024 Basophils (Bld) [#/Vol] 0.0 10*3/uL Normal 0.0-0.2 [facility] Comment on above: Performed By: #### L [id number] ####Aquatic Ecologist: FREEMAN DOUGHERTY ([id number])[facility] ([facility])[address] [place] [address] Basophils/100 WBC (Bld) 0.3 % Normal 0.0-2.0 S [facility] Comment on above: Performed By: #### L [id number] ####Aquatic Ecologist: FREEMAN DOUGHERTY ([id number])[facility] ([facility])[address] Eosinophils (Bld) [#/Vol] 0.0 10*3/uL Normal 0.0-0.5 [facility] Comment on above: Performed By: #### L [id number] ####Aquatic Ecologist: FREEMAN SUAREZMartinaMICHAEL ([id number])[facility] ([facility] [place] [address] Eosinophils/100 WBC (Bld) 0.2 % Normal 0.0-6.0 [facility] Comment on above: Performed By: #### L [id number] ####Aquatic Ecologist: FREEMAN FARHAT ([id number])[facility] ([facility] [place] [address] Erythrocyte distribution width (RBC) [Ratio] 14.3 % Normal 11.5-15.0 [facility] Comment on above: Performed By: #### L [id number] ####Aquatic Ecologist: FREEMAN DOUGHERTY ([id number])[facility] ([facility])[address] [place] [address] Hematocrit (Bld) [Volume fraction] 39.1 % Normal 35.0-47.0 [facility] Comment on above: Performed By: #### L [id number] ####Aquatic Ecologist: FREEMAN FARHAT ([id number])[facility] ([facility])[address] [place] [address] Hemoglobin (Bld) [Mass/Vol] 13.3 g/dL Normal 11.7-16.0 [facility] Comment on above: Performed By: #### L [id number] ####Aquatic Ecologist: FREEMAN MURPHYMICHAEL ([id number])[facility] ([facility])[address] [place] [address] IMMATURE GRANS % 0.5 % Normal 0.0-2.[address] [facility] Comment on above: Performed By: #### L [id number] ####Aquatic Ecologist: FREEMAN MURPHYMICHAEL ([id number])[facility] ([facility])[address] [place] [address] IMMATURE GRANS ABSOLUTE 0.1 10*3/uL High <0.1 [facility] Comment on above: Performed By: #### L [id number] ####Aquatic Ecologist: FREEMAN DOUGHERTY ([id number])[facility] ([facility])[address] Lymphocytes (Bld) [#/Vol] 1.5 10*3/uL Normal 1.0-4.3 [facility] Comment on above: Performed By: #### L [id number] ####Aquatic Ecologist: FREEMAN DOUGHERTY ([id number])[facility] ([facility])[address] Lymphocytes/100 WBC (Bld) 10.3 % Low 15.0-45.0 [facility] Comment on above: Performed By: #### L [id number] ####Aquatic Ecologist: FREEMAN DOUGHERTY ([id number])[facility] ([facility])[address] [place] [address] MCH (RBC) [Entitic mass] 32.0 pg Normal 26.0-34.0 [facility] Comment on above: Performed By: #### L [id number] ####Aquatic Ecologist: FREEMAN DOUGHERTY ([id number])[facility] ([facility])[address] MCHC 34.0 % Normal 30.5-36.0 [facility] Comment on above: Performed By: #### L [id number] ####Aquatic Ecologist: FREEMAN FARHAT ([id number])[facility] ([facility])[address] [place] [address] MCV (RBC) [Entitic vol] 94.2 fL Normal 77.0-99.0 S [facility] Comment on above: Performed By: #### L [id number] ####Aquatic Ecologist: FREEMANSUGEY DOUGHERTY ([id number])[facility] ([facility])[address] Monocytes (Bld) [#/Vol] 1.1 10*3/uL High 0.0-0.9 [facility] Comment on above: Performed By: #### L [id number] ####Aquatic Ecologist: FREEMAN MURPHYMICHAEL ([id number])[facility] ([facility])[address] Monocytes/100 WBC (Bld) 7.3 % Normal 5.0-13.0 [facility] Comment on above: Performed By: #### L [id number] ####Aquatic Ecologist: FREEMAN DOUGHERTY ([id number])[facility] [place] ([facility])[address] NEUTROPHILS ABSOLUTE 11.9 10*3/uL High 1.8-7.5 [facility] Comment on above: Performed By: #### L [id number] ####Aquatic Ecologist: FREEMAN MURPHYMICHAEL ([id number])[facility] [place] ([facility])[address] Neutrophils/100 WBC (Bld) 81.4 % Normal 38.0-82.0 [facility] Comment on above: Performed By: #### L [id number] ####Aquatic Ecologist: FREEMAN DOUGHERTY ([id number])[facility] [place] ([facility])[address] NRBC 0.2 /100 WBCs Normal 0.0-2.0 [facility] Comment on above: Performed By: #### L [id number] ####Aquatic Ecologist: FREEMAN DOUGHERTY ([id number])[facility] [place] ([facility])[address] Platelet mean volume (Bld) [Entitic vol] 11.4 fL Normal 9.0-12.7 [facility] Comment on above: Performed By: #### L [id number] ####Aquatic Ecologist: FREEMAN DOUGHERTY ([id number])[facility] [place] ([facility])[address] Platelets (Bld) [#/Vol] 280 10*3/uL Normal 140-440 [facility] Comment on above: Performed By: #### L [id number] ####Aquatic Ecologist: FREEMAN DOUGHERTY ([id number])[facility] ([facility])[address] RBC (Bld) [#/Vol] 4.15 10*6/uL Normal 3.80-5.20 [facility] Comment on above: Performed By: #### L [id number] ####Aquatic Ecologist: FREEMAN DOUGHERTY ([id number])[facility] ([facility])[address] WBC (Bld) [#/Vol] 14.7 10*3/uL High 3.6-10.7 [facility] Comment on above: Performed By: #### L [id number] ####Aquatic Ecologist: FREEMAN DOUGHERTY ([id number])[facility] ([facility])[address] [place] [address] COMPREHENSIVE METABOLIC PANE Mandeep 11-17-2024 Albumin [Mass/Vol] 3.4 g/dL Normal 3.4-4.8 [facility] Comment on above: Performed By: #### L [id number] #### Aquatic Ecologist: FREEMAN DOUGHERTY ([id number]) [facility] ([facility]) [address] ALP [Catalytic activity/Vol] 74 U/L Normal 40-150 [facility] Comment on above: Performed By: #### L [id number] #### Aquatic Ecologist: FREEMAN DOUGHERTY ([id number]) [facility] ([facility]) [address] ALT [Catalytic activity/Vol] 51 U/L High <30 [facility] Comment on above: Performed By: #### L [id number] #### Aquatic Ecologist: FREEMAN DOUGHERTY ([id number]) [facility] ([facility]) [address] Anion gap [Moles/Vol] 14 mmol/L High 3-13 [facility] Comment on above: Performed By: #### L [id number] #### Aquatic Ecologist: FREEMAN DOUGHERTY ([id number]) [facility] ([facility]) [address] AST [Catalytic activity/Vol] 65 U/L High <34 [facility] Comment on above: Performed By: #### L [id number] #### Aquatic Ecologist: FREEMAN DOUGHERTY ([id number]) [facility] [place] ([facility]) [address] [place] [address] [place] Bilirubin [Mass/Vol] 0.8 mg/dL Normal <1.2 [facility] Comment on above: Performed By: #### L [id number] #### Aquatic Ecologist: FREEMAN DOUGHERTY ([id number]) [facility] [place] ([facility]) [address] Calcium [Mass/Vol] 8.3 mg/dL Low 8.8-10.0 [facility] Comment on above: Performed By: #### L [id number] #### Aquatic Ecologist: FREEMAN DOUGHERTY ([id number]) [facility] [place] ([facility]) [address] [place] [address] [place] Chloride [Moles/Vol] 108 mmol/L High 98-107 [facility] Comment on above: Performed By: #### L [id number] #### Aquatic Ecologist: FREEMAN DOUGHERTY ([id number]) [facility] [place] ([facility]) [address] [place] [address] [place] CO2 [Moles/Vol] 22 mmol/L Low 23-31 [facility] Comment on above: Performed By: #### L [id number] #### Aquatic Ecologist: FREEMAN DOUGHERTY ([id number]) [facility] [place] ([facility]) [address] [place] [address] [place] Creatinine [Mass/Vol] 2.26 mg/dL High 0.57-1.11 [facility] Comment on above: Performed By: #### L [id number] #### Aquatic Ecologist: FREEMAN DOUGHERTY ([id number]) [facility] [place] ([facility]) [address] GLOMERULAR FILTRATION RATE ML/MIN/1.73 SQ M.PREDICTED 21.7 mL/min/1.73m*2 Low >60.0 [facility] Comment on above: Result Comment: Calc ulation based on the Chronic Kidney Disease Epidemiology Collaboration (CKD-EPI) equation refit without adjustment for race Performed By: #### L [id number] #### Aquatic Ecologist: FREEMAN DOUGHERTY ([id number]) [facility] ([facility]) [address] Glucose [Mass/Vol] 244 mg/dL High 82-115 [facility] Comment on above: Performed By: #### L [id number] #### Aquatic Ecologist: FREEMAN DOUGHERTY ([id number]) [facility] ([facility]) [address] Potassium [Moles/Vol] 3.2 mmol/L Low 3.5-5.1 [facility] Comment on above: Result Comment: [facility] potassium values may be up to 0.5 mmol/L lower than serum values. Performed By: #### L [id number] #### Aquatic Ecologist: FREEMAN DOUGHERTY ([id number]) [facility] ([facility]) [address] Protein [Mass/Vol] 6.4 g/dL Normal 6.4-8.3 [facility] Comment on above: Performed By: #### L [id number] #### Aquatic Ecologist: FREEMAN DOUGHERTY ([id number]) [facility] ([facility]) [address] [place] [address] [place] Sodium [Moles/Vol] 144 mmol/L Normal 136-145 [facility] Comment on above: Performed By: #### L [id number] #### Aquatic Ecologist: FREEMAN DOUGHERTY ([id number]) [facility] ([facility]) [address] [place] [address] [place] Urea nitrogen [Mass/Vol] 70 mg/dL High 9-23 [facility] Comment on above: Performed By: #### L [id number] #### Aquatic Ecologist: FREEMAN DOUGHERTY ([id number]) [facility] ([facility]) [address] [place] [address] CT HEAD WO IV CONTRASTon CT HEAD WO IV CONTRAST Patient Name: CARLINE LUNA : 1945 [facility]#: [id number] Exam Date/Time: 11/17/2024 13:44 Procedure: CT HEAD WO IV CONTRAST Ordering Provider: SAM PADMAJA Reason For Exam: Transient ischemic attack (TIA) CT HEAD WITHOUT CONTRAST CLINICAL INDICATION: TIA Axial CT images of the brain were obtained without intravenous contrast. Coronal and sagittal reformatted images were also made available for interpretation. Dose reduction was employed with automated exposure control. COMPARISON: 12/16/2023. FINDINGS: There is moderate diffuse cortical volume loss. Nonspecific periventricular white matter hypodensities likely reflect areas of small vessel ischemic change in a patient of this age. Old right basal ganglia lacunar infarct is unchanged. No high attenuation material is seen to suggest hemorrhage. There is no definite evidence for acute cortical infarction. No midline shift or mass effect is noted. No fracture is identified on the bone windows. The paranasal sinuses are clear. Atherosclerotic calcification of the carotid siphons is noted. IMPRESSION: No evidence of intracranial hemorrhage or definite acute cortical infarction. Moderate volume loss. Periventricular white matter hypodensities likely reflect areas of small vessel ischemic change in a patient of this age. Old lacunar infarct within the right basal ganglia appears unchanged. Report Dictated on Electronically Signed By: Nishant Mallory MD Electronically Signed Date/Time: 11/17/2024 2:30 PM EDT Normal [facility] CT Head WO contraston 2024 [facility] Radiology Study observation (narrative) [facility] CT Head WO contrastOrdered B y: Nishant Mallory on 11-17-2024 [facility] Comprehensive metabolic 1998 panelon 11-17-2024 Albumin [Mass/Vol] 3.4 g/dL 3.4 - 4.8 g/dL [facility] ALP [Catalytic activity/Vol] 74 U/L 40 - 150 U/L [facility] ALT [Catalytic activity/Vol] 51 U/L High NINF - 30 U/L [facility] Anion gap [Moles/Vol] 14 mmol/L High 3 - 13 mmol/L [facility] AST [Catalytic activity/Vol] 65 U/L High NINF - 34 U/L [facility] Bilirubin [Mass/Vol] 0.8 mg/dL NINF - 1.2 mg/dL [facility] Calcium [Mass/Vol] 8.3 mg/dL Low 8.8 - 10. 0 mg/dL [facility] Chloride [Moles/Vol] 108 mmol/L High 98 - 10 7 mmol/L [facility] CO2 [Moles/Vol] 22 mmol/L Low 23 - 31 mmol/L [facility] Creatinine [Mass/Vol] 2.26 mg/dL High 0.57 - 1.11 mg/dL [facility] GFR/1.73 sq M.predicted (S/P/Bld) [Vol rate/Area] 21.7 mL/min Low - PINF [facility] Glucose [Mass/Vol] 244 mg/dL High 82 - 115 mg/dL [facility] Interpretation and review of laboratory results Abnormal [facility] Potassium [Moles/Vol] 3.2 mmol/L Low 3.5 - 5.1 mmol/L [facility] Protein [Mass/Vol] 6.4 g/dL 6.4 - 8.3 g/dL [facility] Sodium [Moles/Vol] 144 mmol/L 136 - 145 mmol/L [facility] Urea nitrogen [Mass/Vol] 70 mg/dL High 9 - 23 mg/dL [facility] Laboratory - Chemistry and C hemistry - challengeon 11-17-2024 Glucose [Mass/Vol] 159 mg/dL High 70 - 100 mg/dL [facility] Glucose [Mass/Vol] 199 mg/dL High 70 - 100 mg/dL [facility] Glucose [Mass/Vol] 219 mg/dL High 70 - 100 mg/dL [facility] Glucose [Mass/Vol] 178 mg/dL High 70 - 100 mg/dL [facility] No Panel Informationon 11-17 Interpretation and review of laboratory results Abnormal [facility] Interpretation and review of laboratory results Abnormal [facility] Interpretation and review of laboratory results Abnormal [facility] Interpretation and review of laboratory results Abnormal [facility] Clinic Progress Noteon 11-17-2024 Progress Note Speech-Language Pathology SPEECH LANGUAGE PATHOLOGY [facility] Bedside Swallow Evaluation Patient Name: Carline Villarreal Evaluation Date: 11/17/2024 Date of : 1945 Admission Date: 11/13/2024 10:39 AM Age: 78 y.o. [facility]: [facility] IMPRESSION: S/s oropharyngeal dysphagia. No overt clinical s/s pulmonary compromise with PO. Risk factors for aspiration include lethargy, history of CVA, dementia. RECOMMENDATION: Recommend Pureed solids and Thin liquids and meds crushed in puree and the following precautions: - Upright positioning for all PO intake - Slow rate of intake - Small bites/sips - 1:1 Assistance - PO only when fully alert Dysphagia NOMS: Level 4: Swallowing is safe but usually intake is limited to single consistency. Moderate cues are needed to use compensatory strategies, and/or individual has mild to moderate diet restrictions and/or still requires tube feeding. Pt would benefit from skilled acute TECHNICAL ASST services Ensure patient tolerance of the recommended diet, Assess for potential diet upgrade, and Formal instruction of swallow strategies. Frequency: 3 days/wk for 2 weeks Barriers: Limited safety awareness, Limited insight into deficits, and Decreased endurance Prognosis: fair D/C Recommendations: to be determined Subjective Patient lethargic and minimally cooperative. Seen upright in bed. Answers few basic questions with clear, weak vocal quality. Follows few basic commands. No visitors at bedside . Spoke with RN Desire' who cleared pt to be evaluated. Dysphagia History: No history of TECHNICAL ASST services in EMR with retrospective chart review; Pt passed RN swallowing screen in December 2023 Baseline Diet: regular/thin Current Diet: regular/thin Dietary Orders (From admission, onward) Start Ordered 11/13/24 1500 Adult diet Regular Diet effective now Question: Diet type Answer: Regular 11/13/24 1507 Tube Feeding: no Tracheostomy: no Recent Chest Xray/CT of Chest: XR chest 1 view 11/15/2024 Impression No acute cardiopulmonary abnormality. 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) 01/06/2019 Migraine headache 01/06/2019 Hypothyroid 01/06/2019 Gout 01/06/2019 Gastroesophageal reflux disease 01/06/2019 Dementia (HCC) 01/06/2019 Obesity 01/06/2019 Psoriasis 01/06/2019 Cerebrovascular accident (HCC) 07/19/2017 Anxiety 07/19/2017 HTN (hypertension) 07/19/2017 Hyperlipidemia 07/19/2017 History of Present Illness: CHIEF COMPLAINT: SOB Reason for Admission: PNA Lower lobes History Obtained From: patient, chart, staff HISTORY OF PRESENT ILLNESS: Carline is a 78 y.o. female with past medical history below who presents with chief complaint listed above. Pt reports from SNF w/ SOB, reported 76% sp02 on Room Air when EMS first arrived. She was placed on BIPAP during transport to ED. Does have PMH notable for CVA with left sided sequelae, T2DM, HTN, Hypertensive CKD, Anxiety, Obesity, Migraine, Gout, Insomnia and Dementia She is awake and cooperative in ED Notable first trop 12 with delta trop HS of 124. Notable first ABG appears more consistent with VBG acidotic, on repeat ok for floor. Patient evaluated by pulm/crit care. Plan for Bipap nightly with NC during day. Imaging in ED notable for streaky opacities concerning for PNA in bilateral lobe bases Right >left and pulmonary congestion Right>left. She denies any chest pain or palpitations, no headache, nausea vomiting, vision change, (baseline dementia w/o exacerbation) ECG in ED did have some notable T wave inversion without ST component. Cardiology consulted for HF management in ED, troponin appears demand mediated. Will admit for further evaluation and management. Pain: Pt denies any current pain. PPE Worn: gloves Objective Bedside swallow eval completed. Oral Motor Mechanism Very limited oral motor exam due to pt's lethargy and reduced curt (more content not included)... Normal [facility] Progress Note OCCUPATIONAL THERAPY [facility] Name/MRN: Carline Villarreal ([id number]) Date: 11/17/2024 Chart reviewed. Attempt to see pt for OT session. Pt sleeping upon arrival did not wake to knocking or verbal introduction, required tactile stimulation to arouse. Pt minimally verbal but declines multiple tx options for participation in therapy at this time. OT will continue to follow and re attempt to see as schedule permits. FABI Abernathy/Nicole Normal [facility] Progress Note [facility] Geriatric Medicine Inpatient Consult Service Admission Date: 11/13/2024 Assessment Principal Problem: Acute exacerbation of chronic heart failure (HCC) Plan Acute Metabolic Encephalopathy --Etiology likely EDWIGE/uremia, possible infection? (Leukocytosis), hospital environment, CHF exacerbation --Continue to treat underlying cause --Anticipate she may need gentle IV fluids due to EDWIGE. Hospitalist reports they will be starting fluids --Recommend further infectious workup, including UA. She would not be able to report urinary symptoms with current mental status --Consider ammonia level due to mild transaminitis --Lower gabapentin to 200 mg BID due to EDWIGE. Will start this dose tomorrow. No gabapentin tonight. Hold if lethargic --Stop prn sumatriptan (has not used here) --CT head obtained today. No acute process --Encourage PO intake, time up in chair, family visits, and sleep hygiene --If agitated, assess for and consider treating for pain --QTc= 566 --Avoid antipsychotics due to prolonged qtc. Patient is currently hypoactive. Do not anticipate need for agitation medications at this time --Continue scheduled melatonin at HS --Monitor for constipation/urinary retention - last BM 11/17 --Possible medication contributions: gabapentin, percocet (last received 5/14) Dementia --Lives in [facility] facility --History of stroke with worsening cognitive decline. --Try to avoid anticholinergic medications --11/17: Delirious today Debility --Contributing factors include stroke, Dementia, Chronic pain, heart failure --nathan lift and use of wheelchair at baseline --PT and OT --Anticipate return to [facility] when medically stable --11/17: Worsening mental/medical status today (see above). Bipolar Disorder Anxiety --takes Lexapro 5mg daily at facility - was being weaned there. We did not restart in hospital. Continue off medication at this time, especially in setting of prolonged qtc --Continue Duloxetine 30mg daily --Continue Buspar 2.5mg BID (being weaned at facility) Chronic pain --Takes Oxycodone-Acetaminophe n 5/325 mg 1 tab every 8 hours as needed at facility. Takes 1 tab every few days. Currently ordered. --Home dose of Gabapentin 600mg BID. --Gabapentin was increased from 300 mg BID to 400 mg BID on 11/16. --11/17: --Lower gabapentin to 200 mg BID due to EDWIGE. Will start this dose tomorrow. No gabapentin tonight. Hold if lethargic Follow-up: will follow with you Subjective Chief Complaint: fall Geriatrics consulted for confusion restless with underlying dementia with prolonged qtc HPI- The patient is new to me but seen by the Geriatric Inpatient Consult team. 78 y.o. year-old female with past medical history of dementia, cerebral vascular disease (with left sided weakness), hypertension, CK,D, bipolar disorder, hypothyroidism, gout, migraines who was admitted to acute care from alf care for shortness of breath/cough/hypoxia. Diagnosed with acute CHF exacerbation and EDWIGE. Cardiology following. ECHO 11/14 with EF 35%. Findings consistent with Takotsubo vs CAD. Reviewed yesterday's primary team progress note Discussed with hospitalist - Dr Sam Interval History: Ms Villarreal is lethargic and her speech is very difficult to understand. When asked about pain, she replied yes. Seemed to indicate that she had a headache. She wasn't able to tell me where we are. When I pointed out her lunch tray (it looked like a few bites were eaten), she said the food was good. I spoke with her nurse. She is more drowsy today than yesterday I called her SNF and spoke with nursing. They said that at baseline she does not have speech/aphasia difficulties. She is typically aware of where she is. Is able to wheel herself in her wheelchair to various offices in the facility to visit with staff Review of Systems Neurological: Positive for headaches. Psychiatric/Behavioral : Positive for confusion. ROS very limited due to delirium Objective BP (!) 178/118 (BP Location: Left arm, Patient Position: Lying) Pulse 115 Temp 36.8 ?C (98.2 ?F) (Temporal) Resp 16 Ht 5' 5 (1.651 m) Wt 210 lb (95.3 kg) SpO2 100% BMI 34.95 kg/m? Intake/Output Summary (Last 24 hours) at 11/17/2024 1053 Last data filed at 11/16/2024 1245 Gross per 24 hour Intake 120 ml Output -- Net 120 ml Wt Readings from Last 3 Encounters: 11/14/24 210 lb (95.3 kg) 12/17/23 205 lb (93 kg) Current Medications[1] Physical Exam Constitutional: General: She is not in acute distress. Appearance: She is ill-appearing. Comments: +drowsy. I initially woke her up from sleep and she was able to answer a couple of questions. Then fell back to sleep HENT: Head: Normocephalic and atraumatic. Cardiovascular: Rate and Rhythm: Regular rhythm. Tachycardia present. Heart sounds: No murmur heard. No friction rub. No gallop. Pulmonary: Effort: P (more content not included)... Normal [facility] Progress Note [facility], Pulmonary Medicine [address] [place] [id number] Patient - Carline Villarreal, Age - 78 y.o. - 1945 Room Number - [id number]/[id number] A Consulting - Ni Sam MD Primary Care Physician - Evi Guevara Acct: No I do not have problem with the patient you know he was kind of he wanted to go home today I just kept him so Maybe can do little earlier okay [id number] Date of Admission - 11/13/2024 10:39 AM Hospital Day - 4 Chief Complaint Carline Phil is a 78 y.o. female who pulmonary is following for respiratory failure Interval History Patient resting the bed, mildly confused No respiratory distress oxygen saturation 99% 3 L Apparently had an episode of aspiration yesterday, increased therapy having consulted Chest x-ray reviewed interpreted by me Marked improvement in congestive heart failure pleural effusion May have mild underlying congestion No focal infiltrate HPI Carline Villarreal is a 78 y.o. female admitted for Shortness of breath noted to be in acute hypoxic hypercapnic respiratory failure decompensated congestive heart failure Patient does have a history of dementia as per chart group home resident, diabetes mellitus hypertension stroke Admitted with above complaint Initial VBG did show pH 7.229 pCO2 of 55 pO2 of 32 Patient received IV Lasix diuresed well placed on NIV Follow-up VBG showed pH 7.74 pCO2 of 30 and PO2 of 47 EKG showed T inversion ST ST depression elevated troponin This morning apparently has episode of tachyarrhythmia as per cardiology atrial fibrillation Her saturation was 97 percentile feeling much better this morning however she is not a good historian Currently she was on room air saturation was 97 percentile Never smoked Not on PAP therapy at home Apparently came from [facility] years ago Chest x-ray reviewed interpreted by me Vascular congestion with a small bilateral pleural effusion All other systems reviewed Objective Vitals: BP (!) 178/118 (BP Location: Left arm, Patient Position: Lying) Pulse 115 Temp 36.8 ?C (98.2 ?F) (Temporal) Resp 16 Ht 5' 5 (1.651 m) Wt 210 lb (95.3 kg) SpO2 100% BMI 34.95 kg/m? Pulse Ox: SpO2 Av.5 % Min: 96 % Max: 100 % Supplemental O2: O2 Flow Rate (L/min): 2 L/min I/O 24HR INTAKE/OUTPUT: Intake/Output Summary (Last 24 hours) at 11/17/2024 0922 Last data filed at 11/16/2024 1245 Gross per 24 hour Intake 270 ml Output -- Net 270 ml Exam General appearance: Resting in the bed no distress HEENT: Normocephalic, atraumatic. Pupils equil and round, External ear normal, conjunctivae normal, negative for scleral icterus. No congestion. Neck: ROM normal, supple, trachea midline. No lymphadenopathy Cardiovascular: Irregular rhythm. Heart sounds normal. Negative for murmur, friction rub or gallop. Tachycardic Pulmonary: Effort normal, no respiratory distress. Moderate air entry Rales posteriorly No wheezing Abdomen: Soft, non distended, non tender, bowel sounds normal. No palpable masses. No Hepatomegaly Musculoskeletal: ROM normal, Negative for swelling, tenderness or deformity. Skin: Warm, dry. Skin color, texture, turgor normal. Negative for rashes or lesions. Extremities: No clubbing, cyanosis, 1+ bipedal edema Neurological: No focal deficits. Alert and oriented x 1. Cranial nerves II-XII are intact Lymphatics: No cervical or axillary lymphadenopathy Psychiatric: Mood, behavior, thought content normal. Cooperative with exam. Medications Current Medications Scheduled Meds[1] PRN Mediations PRN Meds[2] IV Drips/Infusions Continuous Meds[3] Labs CBC Results from last 7 days Lab Units 11/16/24 0456 WBC AUTO 10*3/uL 12.7* HEMOGLOBIN g/dL 14.1 HEMATOCRIT % 41.5 PLATELETS 10*3/uL 317 BMP: Results from last 7 days Lab Units 11/16/24 0456 11/15/24 0550 11/14/24 0044 SODIUM mmol/L 142 144 139 POTASSIUM mmol/L 3.4* 3.3* 3.6 CHLORIDE mmol/L 105 107 105 CO2 mmol/L 23 22* 21* BUN mg/dL 47* 40* 32* CREATININE mg/dL 1.65* 1.56* 1.37* GLUCOSE mg/dL 165* 169* 248* CALCIUM mg/dL 9.1 9.2 9.6 ABG: Results from last 7 days Lab Units 11/13/24 1532 11/13/24 1056 SOURCE OF OXYGEN Nasal Cannula (LPM) Nasal Cannula (LPM) LIVER PROFILE Results from last 7 days Lab Units 11/13/24 1056 ALK PHOS U/L 101 BILIRUBIN TOTAL mg/dL 0.6 PROTEIN TOTAL g/dL 6.8 ALT U/L 11 AST U/L 20 INR PTT No results found for: PTT Cultures Influence pcr neg Radiology Exam Date/Time: 11/13/2024 11:11 Procedure: XR CHEST 1 VIEW Ordering Provider: SALEEM AMY Reason For Exam: COUGH CHEST - PORTABLE: CLINICAL INDICATION: COUGH TECHNIQUE: Portable AP COMPARISON: None. IMPRESSION: FINDINGS/IMPRESSION: Limitations: Mild patient rotation Lines, tubes, and devices: None. Cardiomediastinal silhouette: Heart size is within normal limits. Atherosclerotic calcifications in (more content not included)... Normal [facility] XR Chest Single viewon 11-17 [facility] Radiology Study observation (narrative) Helga patel 30on 11-16-2024 30 Problem: Knowledge Deficit Goal: Patient/family/caregiv er demonstrates understanding of disease process, treatment plan, medications, and discharge instructions Outcome: Progressing Problem: Potential for Compromised Skin Integrity Goal: Skin Integrity is Maintained or Improved Outcome: Progressing Goal: Nutritional status is improving Outcome: Progressing Problem: Urinary Incontinence Goal: Perineal skin integrity is maintained or improved Outcome: Progressing Problem: Safety - Adult Goal: Free from fall injury Outcome: Progressing Problem: Discharge Planning Goal: Discharge to home or other facility with appropriate resources Outcome: Progressing Problem: Chronic Conditions and Co-morbidities Goal: Patient's chronic conditions and co-morbidity symptoms are monitored and maintained or improved Outcome: Progressing Normal [facility] 30 Problem: Potential f or Compromised Skin Integrity Goal: Skin Integrity is Maintained or Improved Outcome: Progressing Problem: Potential for Compromised Skin Integrity Goal: Nutritional status is improving 11/16/2024421 by Yenni Kyle RN Outcome: Progressing Flowsheets (Taken 11/16/2024421) Nutritional status is improving: Monitor and assess patient for malnutrition (ex- brittle hair, bruises, dry skin, pale skin and conjunctiva, muscle wasting, smooth red tongue, and disorientation) 11/16/2024421 by Yenni Kyle RN Outcome: Progressing Flowsheets (Taken 11/16/2024421) Nutritional status is improving: Monitor and assess patient for malnutrition (ex- brittle hair, bruises, dry skin, pale skin and conjunctiva, muscle wasting, smooth red tongue, and disorientation) Problem: Urinary Incontinence Goal: Perineal skin integrity is maintained or improved Outcome: Progressing Flowsheets (Taken 11/16/2024421) Perineal skin integrity is maintained or improved: Assess genitourinary system, perineal skin, labs (urinalysis), and history of incontinence to include past management, aggravating, and alleviating factors Keep skin clean and dry Apply skin protectant Problem: Safety - Adult Goal: Free from fall injury Outcome: Progressing Flowsheets (Taken 11/16/2024421) Free from fall injury: Instruct family/caregiver on patient safety Problem: Chronic Conditions and Co-morbidities Goal: Patient's chronic conditions and co-morbidity symptoms are monitored and maintained or improved Outcome: Progressing Flowsheets (Taken 11/16/2024421) Care Plan - Patient's Chronic Conditions and Co-Morbidity Symptoms are Monitored and Maintained or Improved: Monitor and assess patient's chronic conditions and comorbid symptoms for stability, deterioration, or improvement Normal [facility] [id number] 11-16-2024 [id number] Patient remains on 4 S for ongoing management of congestive heart failure. Anticipate discharge tomorrow back to [facility]. CM following to assist with discharge needs. Normal [facility] BASIC METABOLIC PANELon 05-1 Anion gap [Moles/Vol] 14 mmol/L High 3-13 [facility] Comment on above: Performed By: #### L AB103, LAB15 ####Aquatic Ecologist: FREEMAN DOUGHERTY ([id number])[facility] (SBHLAB)[address] Calcium [Mass/Vol] 9.1 mg/dL Normal 8.8-10.0 [facility] Comment on above: Performed By: #### L AB103, LAB15 ####Aquatic Ecologist: FREEMAN DOUGHERTY ([id number])[facility] (SBHLAB)[address] [place] [address] [place] Chloride [Moles/Vol] 105 mmol/L Normal 98-107 [facility] Comment on above: Performed By: #### L AB103, LAB15 ####Aquatic Ecologist: FREEMAN DOUGHERTY ([id number])[facility] (SBHLAB)[address] [place] [address] [place] CO2 [Moles/Vol] 23 mmol/L Normal 23-31 [facility] Comment on above: Performed By: #### L AB103, LAB15 ####Aquatic Ecologist: FREEMAN DOUGHERTY ([id number])[facility] [place] (SBHLAB)[address] [place] [address] [place] Creatinine [Mass/Vol] 1.65 mg/dL High 0.57-1.11 [facility] Comment on above: Performed By: #### L AB103, LAB15 ####Aquatic Ecologist: FREEMAN DOUGHERTY ([id number])[facility] (SBHLAB)[address] [place] [address] [place] GLOMERULAR FILTRATION RATE ML/MIN/1.73 SQ M.PREDICTED 31.7 mL/min/1.73m*2 Low >60.0 [facility] Comment on above: Result Comment: Calc ulation based on the Chronic Kidney Disease Epidemiology Collaboration (CKD-EPI) equation refit without adjustment for race Performed By: #### L AB103, LAB15 ####Aquatic Ecologist: FREEMAN DOUGHERTY ([id number])[facility] (SBHLAB)[address] [place] [address] [place] Glucose [Mass/Vol] 165 mg/dL High 82-115 [facility] Comment on above: Performed By: #### L AB103, LAB15 ####Aquatic Ecologist: FREEMAN DOUGHERTY ([id number])[facility] (SB[facility]AB)[address] Potassium [Moles/Vol] 3.4 mmol/L Low 3.5-5.1 [facility] Comment on above: Result Comment: [facility] potassium values may be up to 0.5 mmol/L lower than serum values. Performed By: #### L AB103, LAB15 ####Aquatic Ecologist: FREEMAN DOUGHERTY ([id number])[facility] (SB[facility]AB)[address] [place] [address] [place] Sodium [Moles/Vol] 142 mmol/L Normal 136-145 [facility] Comment on above: Performed By: #### L AB103, LAB15 ####Aquatic Ecologist: FREEMAN DOUGHERTY ([id number])[facility] (SBHLAB)[address] [place] [address] [place] Urea nitrogen [Mass/Vol] 47 mg/dL High 9-23 [facility] Comment on above: Performed By: #### L AB103, LAB15 ####Aquatic Ecologist: FREEMAN DOUGHERTY ([id number])[facility] (SBHLAB)[address] [place] [address] Basic metabolic 1998 panelon 11-16-2024 Anion gap [Moles/Vol] 14 mmol/L High 3 - 13 mmol/L [facility] Calcium [Mass/Vol] 9.1 mg/dL 8.8 - 10. 0 mg/dL [facility] Chloride [Moles/Vol] 105 mmol/L 98 - 10 7 mmol/L [facility] CO2 [Moles/Vol] 23 mmol/L 23 - 31 mmol/L [facility] Creatinine [Mass/Vol] 1.65 mg/dL High 0.57 - 1.11 mg/dL [facility] GFR/1.73 sq M.predicted (S/P/Bld) [Vol rate/Area] 31.7 mL/min Low - PINF [facility] Glucose [Mass/Vol] 165 mg/dL High 82 - 115 mg/dL [facility] Interpretation and review of laboratory results Abnormal [facility] Potassium [Moles/Vol] 3.4 mmol/L Low 3.5 - 5.1 mmol/L [facility] Sodium [Moles/Vol] 142 mmol/L 136 - 145 mmol/L [facility] Urea nitrogen [Mass/Vol] 47 mg/dL High 9 - 23 mg/dL [facility] CBC W Auto Differential pane l (Bld)on 11-16-2024 Basophils (Bld) [#/Vol] 0.1 10*3/uL 0.0 - 0.2 10*3/uL [facility] Basophils/100 WBC (Bld) 0.5 % 0.0 - 2.0 % [facility] Eosinophils (Bld) [#/Vol] 0.4 10*3/uL 0.0 - 0.5 10*3/uL [facility] Eosinophils/100 WBC (Bld) 3.4 % 0.0 - 6.0 % [facility] Erythrocyte distribution width (RBC) [Ratio] 14.2 % 11.5 - 15.0 % [facility] Hematocrit (Bld) [Volume fraction] 41.5 % 35.0 - 47.0 % [facility] Hemoglobin (Bld) [Mass/Vol] 14.1 g/dL 11.7 - 16.0 g/dL [facility] Immature granulocytes (Bld) [#/Vol] 0.1 10*3/uL High NINF - 0.1 10*3/uL [facility] Immature granulocytes/100 WBC (Bld) 0.4 % 0.0 - 2.0 % [facility] Interpretation and review of laboratory results Abnormal [facility] Lymphocytes (Bld) [#/Vol] 2.3 10*3/uL 1.0 - 4.3 10*3/uL [facility] Lymphocytes/100 WBC (Bld) 17.8 % 15.0 - 45.0 % [facility] MCH (RBC) [Entitic mass] 31.9 pg 26.0 - 34.0 pg [facility] MCHC (RBC) [Mass/Vol] 34 % 30.5 - 36.0 % [facility] MCV (RBC) [Entitic vol] 93.9 fL 77.0 - 99.0 fL [facility] Monocytes (Bld) [#/Vol] 0.8 10*3/uL 0.0 - 0.9 10*3/uL [facility] Monocytes/100 WBC (Bld) 6 % 5.0 - 13.0 % [facility] Neutrophils (Bld) [#/Vol] 9.2 10*3/uL High 1.8 - 7.5 10*3/uL [facility] Neutrophils/100 WBC (Bld) 71.9 % 38.0 - 82.0 % [facility] Nucleated RBC/100 WBC (Bld) [Ratio] 0.2 % [facility] Platelet mean volume (Bld) [Entitic vol] 10.8 fL 9.0 - 12.7 fL [facility] [employer] Platelets (Bld) [#/Vol] 317 10*3/uL 140 - 440 10*3/uL [facility] RBC (Bld) [#/Vol] 4.42 10*6/uL 3.80 - 5.2 0 10*6/uL [facility] WBC (Bld) [#/Vol] 12.7 10*3/uL High 3.6 - 10.7 10*3/uL [facility] CBC WITH AUTO DIFFERENTIALon 05-15-2025 Basophils (Bld) [#/Vol] 0.1 10*3/uL Normal 0.0-0.2 [facility] Comment on above: Performed By: #### L [id number] ####Aquatic Ecologist: FREEMAN DOUGHERTY ([id number])[facility] (SBHLAB)[address] Basophils/100 WBC (Bld) 0.5 % Normal 0.0-2.0 [facility] Comment on above: Performed By: #### L [id number] ####Aquatic Ecologist: FREEMAN DOUGHERTY ([id number])[facility] (SBHLAB)[address] Eosinophils (Bld) [#/Vol] 0.4 10*3/uL Normal 0.0-0.5 [facility] Comment on above: Performed By: #### L [id number] ####Aquatic Ecologist: FREEMAN DOUGHERTY ([id number])[facility] ([facility])[address] Eosinophils/100 WBC (Bld) 3.4 % Normal 0.0-6.0 [facility] Comment on above: Performed By: #### L [id number] ####Aquatic Ecologist: FREEMAN DOUGHERTY ([id number])[facility] (SBHLAB)[address] [place] [address] Erythrocyte distribution width (RBC) [Ratio] 14.2 % Normal 11.5-15.0 [facility] Comment on above: Performed By: #### L [id number] ####Aquatic Ecologist: FREEMAN DOUGHERTY ([id number])[facility] (SB[facility]AB)[address] Hematocrit (Bld) [Volume fraction] 41.5 % Normal 35.0-47.0 [facility] Comment on above: Performed By: #### L [id number] ####Aquatic Ecologist: FREEMAN DOUGHERTY ([id number])[facility] ([facility])[address] Hemoglobin (Bld) [Mass/Vol] 14.1 g/dL Normal 11.7-16.0 [facility] Comment on above: Performed By: #### L [id number] ####Aquatic Ecologist: FREEMAN DOUGHERTY ([id number])[facility] (SBHLAB)[address] IMMATURE GRANS % 0.4 % Normal 0.0-2.[address] [facility] Comment on above: Performed By: #### L [id number] ####Aquatic Ecologist: FREEMAN DOUGHERTY ([id number])[facility] IMMATURE GRANS ABSOLUTE 0.1 10*3/uL High <0.1 [facility] Comment on above: Performed By: #### L [id number] ####Aquatic Ecologist: FREEMAN DOUGHERTY ([id number])[facility] (SB[facility])[address] Lymphocytes (Bld) [#/Vol] 2.3 10*3/uL Normal 1.0-4.3 [facility] Comment on above: Performed By: #### L [id number] ####Aquatic Ecologist: FREEMAN DOUGHERTY ([id number])[facility] (SBHLAB)[address] [place] [address] Lymphocytes/100 WBC (Bld) 17.8 % Normal 15.0-45.0 [facility] Comment on above: Performed By: #### L [id number] ####Aquatic Ecologist: FREEMAN DOUGHERTY ([id number])[facility] (SB[facility])[address] MCH (RBC) [Entitic mass] 31.9 pg Normal 26.0-34.0 [facility] Comment on above: Performed By: #### L [id number] ####Aquatic Ecologist: FREEMAN DOUGHERTY ([id number])[facility] ([facility])[address] MCHC 34.0 % Normal 30.5-36.0 [facility] Comment on above: Performed By: #### L [id number] ####Aquatic Ecologist: FREEMAN MURPHYMICHAEL ([id number])[facility] (SBHLAB)[address] MCV (RBC) [Entitic vol] 93.9 fL Normal 77.0-99.0 [facility] Comment on above: Performed By: #### L [id number] ####Aquatic Ecologist: FREEMAN DOUGHERTY ([id number])[facility] (SBHLAB)[address] Monocytes (Bld) [#/Vol] 0.8 10*3/uL Normal 0.0-0.9 [facility] Comment on above: Performed By: #### L [id number] ####Aquatic Ecologist: FREEMAN DOUGHERTY ([id number])[facility] (SBHLAB)[address] Monocytes/100 WBC (Bld) 6.0 % Normal 5.0-13.0 [facility] Comment on above: Performed By: #### L [id number] ####Aquatic Ecologist: FREEMAN MURPHYMICHAEL ([id number])[facility] (SBHLAB)[address] [place] [address] NEUTROPHILS ABSOLUTE 9.2 10*3/uL High 1.8-7.5 [facility] Comment on above: Performed By: #### L [id number] ####Aquatic Ecologist: FREEMAN MURPHYMICHAEL ([id number])[facility] (SBHLAB)[address] Neutrophils/100 WBC (Bld) 71.9 % Normal 38.0-82.0 [facility] Comment on above: Performed By: #### L [id number] ####Aquatic Ecologist: FREEMAN DOUGHERTY ([id number])[facility] (SBHLAB)[address] NRBC 0.2 /100 WBCs Normal 0.0-2.0 [facility] Comment on above: Performed By: #### L [id number] ####Aquatic Ecologist: FREEMAN DOUGHERTY ([id number])[facility] ([facility])[address] Platelet mean volume (Bld) [Entitic vol] 10.8 fL Normal 9.0-12.7 [facility] Comment on above: Performed By: #### L [id number] ####Aquatic Ecologist: FREEMAN DOUGHERTY ([id number])[facility] ([facility])[address] Platelets (Bld) [#/Vol] 317 10*3/uL Normal 140-440 [facility] Comment on above: Performed By: #### L [id number] ####Aquatic Ecologist: FREEMAN DOUGHERTY ([id number])[facility] (SB[facility])[address] RBC (Bld) [#/Vol] 4.42 10*6/uL Normal 3.80-5.20 [facility] Comment on above: Performed By: #### L [id number] ####Aquatic Ecologist: FREEMAN MURPHYMICHAEL ([id number])[facility] (SBHLAB)[address] [place] [address] WBC (Bld) [#/Vol] 12.7 10*3/uL High 3.6-10.7 [facility] Comment on above: Performed By: #### L [id number] ####Aquatic Ecologist: FREEMAN DOUGHERTY ([id number])[facility] ([facility]AB)[address] ECG 12-LEADon 11-16-2024 ECG 12-LEAD IMPRESSION: Sinus rhythm LVH with secondary repolarization abnormality likely, ischemia cannot be ruled out Prolonged QT interval Electronically Signed On 11-16-2024 09:18:03 EDT by Williams Hawkins [facility] Laboratory - Chemistry and C hemistry - challengeon 11-16-2024 Glucose [Mass/Vol] 128 mg/dL High 70 - 100 mg/dL [facility] Glucose [Mass/Vol] 175 mg/dL High 70 - 100 mg/dL [facility] Glucose [Mass/Vol] 147 mg/dL High 70 - 100 mg/dL [facility] Glucose [Mass/Vol] 202 mg/dL High 70 - 100 mg/dL [facility] Glucose [Mass/Vol] 181 mg/dL High 70 - 100 mg/dL [facility] Magnesium [Mass/Vol] 1.6 mg/dL 1.6 - 2 .6 mg/dL [facility] MAGNESIUMon 11-16-2024 Magnesium [Mass/Vol] 1.6 mg/dL Normal 1.6-2.6 [facility] Comment on above: Result Comment: SUKH Smith COMMENTS: Higher values can be expected in females during menses. Performed By: #### L [id number], LAB15 ####Aquatic Ecologist: FREEMAN DOUGHERTY ([id number])[facility] [place] [address] Magnesium [Mass/Vol]on 11-16 Interpretation and review of laboratory results Normal [facility] No Panel Informationon 11-16 Interpretation and review of laboratory results Abnormal [facility] Interpretation and review of laboratory results Abnormal [facility] Interpretation and review of laboratory results Abnormal [facility] Interpretation and review of laboratory results Abnormal [facility] CV EPIPHANY [facility] Interpretation and review of laboratory results Abnormal [facility] No Panel InformationOrdered By: Williams Keller on 11-16-2024 P [place] 47 degrees [facility] [employer] Work Phone: [place] Interval 172 ms [facility] [employer] Work Phone: QRS [place] 44 degrees [facility] [employer] Work Phone: QRSD Interval 94 ms [facility] [employer] Work Phone: QT Interval 464 ms [facility] [employer] Work Phone: QTC Interval 566 ms [facility] [employer] Work Phone: T Wave [place] 210 degrees [facility] [employer] Work Phone: [employer] Work Phone: Nursing Noteon 11-16-2024 Nursing Note Noted this shift pt had some some coughing after she ate her lunch and a small emesis. made aware, speech therapy consult placed. Pt reassessed airway and breathing NNO at this time status unchanged from previous assessments. Normal [facility] Progress Noteon 11-16-2024 Progress Note [facility] Geriatric Medicine Inpatient Consult Service Admission Date: 11/13/2024 Assessment Principal Problem: Acute exacerbation of chronic heart failure (HCC) Plan Dementia --Lives in [facility] --History of stroke with worsening cognitive decline. --MRI 12/17/23: 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 Chronic small vessel ischemic change. --TSH WNL and B12 310 --No baseline behaviors --Try to avoid anticholinergic medications --11/16: Not oriented to place today with increased restlessness. May have mild delirium. At risk for delirium --Risk factors: pain, advanced age, sensory impairments, acute illness, history of delirium, and baseline cognitive deficits --Encourage PO intake, time up in chair, family visits, and sleep hygiene --If agitated, assess for and consider treating for pain --QTc= 11/13 429 ms --> 11/14 508 ms --> 11/15 566 ms --No antipsychotic due to QTc>500; if patient is danger to self/others/treatment consider low dose benzo use (Lorazepam 0.25mg PO every 8 hours as needed for agitation). If given, closely monitor respiratory status. --Continue scheduled melatonin at HS --Monitor for constipation/urinary retention - last BM 11/16 --Possible medication contributions: monitor for Gabapentin withdrawal (see below) --11/16: Restless, no agitation. Increase Gabapentin to 400mg BID. Continue to assess renal function and increase to home dose (600mg BID) as appropriate. Debility --Contributing factors include stroke, Dementia, Chronic pain, heart failure --nathan lift and use of wheelchair at baseline --PT and OT --Anticipate return to [facility] --11/16: Stable. Therapy recommends SNF. Bipolar Disorder Anxiety --takes Lexapro 5mg daily at facility - was being weaned there. Will hold off restarting. --Continue Duloxetine 30mg daily --Continue Buspar 2.5mg BID (being weaned at facility) --11/16: Stable. Continue plan. Chronic pain --Takes Oxycodone-Acetaminophe n 5/325 mg 1 tab every 8 hours as needed at facility. Takes 1 tab every few days. Currently ordered. --Home dose of Gabapentin 600mg BID. Currently ordered 300mg BID. --11/16: Increase Gabapentin to 400mg BID while monitoring renal function. Follow-up: will follow with you Subjective Chief Complaint: where are the dean Geriatrics consulted for confusion restless with underlying dementia with prolonged qtc HPI- The patient is known to me. 78 y.o. year-old female with PMH of DM, stroke with left sided weakness, HTN, CKD, hypothyroidism, Bipolar disorder, Gout, Migraines, Dementia presented to [facility] from nursing facility on 11/13/24 with complaints of shortness of breath, cough, and hypoxia. Pulmonology consulted - acute hypoxic and hypercapnic respiratory failure likely due to acute decompensated congestive heart failure. Also diagnosed with EDWIGE. Cardiology following. ECHO 11/14 with EF 35%. Findings consistent with Takotsubo vs CAD. Interval History: Remains on telemetry. -Patient looks and points to TV and said he sold dean, where are the dean?. Unable to states where she is. Denies pain. Reports her breathing is good. -Nursing reports patient has been restless overnight and this morning. Not agitated. She pulls sheets off herself. Not pulling at IV. Creat 1.65 (increased) Seen by PT. Max assist with transfers. Recommending short term SNF for rehab. Review of Systems Unable to perform ROS: Dementia Objective BP 147/99 Pulse 97 Temp (!) 35.8 ?C (96.5 ?F) (Temporal) Resp 20 Ht 5' 5 (1.651 m) Wt 210 lb (95.3 kg) SpO2 97% BMI 34.95 kg/m? Intake/Output Summary (Last 24 hours) at 11/16/2024 1100 Last data filed at 11/15/2024 1814 Gross per 24 hour Intake 390 ml Output -- Net 390 ml Wt Readings from Last 3 Encounters: 11/14/24 210 lb (95.3 kg) 12/17/23 205 lb (93 kg) Current Medications[1] Physical Exam Vitals reviewed. Constitutional: General: She is not in acute distress. HENT: Head: Normocephalic and atraumatic. Cardiovascular: Rate and Rhythm: Normal rate and regular rhythm. Pulmonary: Effort: Pulmonary effort is normal. Breath sounds: Normal breath sounds. Musculoskeletal: Right lower leg: No edema. Left lower leg: No edema. Neurological: Mental Status: She is alert. Motor: Weakness present. Comments: Left sided weakness Oriented x 1 Psychiatric: Attention and Perception: She is inattentive. Mood and Affect: Mood normal. Behavior: Behavior is cooperative. Cognition and Memory: Cognition is impaired. Memory is impaired. Labs and Imaging: Recent Results (from the past 24 hours) POCT glucose meter Collection Time: 11/15/24 11:09 AM Result Value Ref Range Glucose 160 (H) 70 - 100 mg/dL ECG 12 lead Collection Time: 11/15/24 11:47 AM Result Value Ref Range Heart Rate 89 bpm QRSD Interval 94 ms QT Interval 464 ms QTC (more content not included)... Normal [facility] Progress Note OCCUPATIONAL THERAPY [facility] Treatment Note Name/MRN: Carline Villarreal ([id number]) Date of : 1945 Age: 78 y.o. Room/Bed: [facility]/B4-067 A Visit #: 1 out of 7 visits Discharge Recommendation: Assisted Facility Equipment Needed: No Assessment Pt tolerated session fair of note, only oriented to self this date. Pt agreeable to therapy. Pt demonstrated supine>sit with max A for BLE and trunk management and scooting hips with use of pramod pad to EOB. Demo'd heavy R and posterior lean when seated at EOB with R hand on bed rail. Pt required max verbal cues and intermittent max-CGA for sitting balance, able to tolerate ~10 minutes. Required mod A x1-2 for doffing and donning down. Pt required max A x2 for sit>supine due to poor command following, and max A x1-2 for rolling R and L to complete madi care and LB dressing at bed level. Continue with POC to increase progress towards stated goals. Subjective RN OK for this pt to participate in therapy. Pt received supine in bed, agreeable to therapy. Pain: Pt denies any current pain. Medical Precautions: No active isolations Proper PPE donned/doffed in accordance with facility standards. Fall Risk: Oleary Fall Risk Score: 60 (High Risk) Precautions/Restrictio ns: N/A Family/Caregiver Present: none Objective ADLs LE Dressing: Dependent Toileting: Dependent UE Dressing: Mod Assist, x2 Person Assist Pt required mod A x 1-2 for UB dressing at EOB, doffing and donning gown. Demo'd R lateral and posterior lean, unable to follow commands for upright static posture. Max-CGA required for sitting balance intermittently. Pt required total A for doffing/donning brief at bed level and for pericare. Bed Mobility Supine to sit: Max Assist Sit to supine: Max Assist, x2 Person Assist Rolling to right: Max Assist, x2 Person Assist Rolling to left: Max Assist, x2 Person Assist Scooting: Max Assist Use of bed rail(s) Pt demonstrated supine >sit with max A x1 and max verbal cues. Required assist with BLE management and trunk, demonstrated heavy R lateral lean and posterior lean. Scooting towards EOB with use of pramod pad and max A as pt unable to demo scooting hips. Pt able to tolerate ~10 minutes of static sitting balance with intermittent max A-CGA, difficulty with following commands. Required max A x2 for supine to sit and for scooting towards HOB with pramod pad, unable to follow verbal and tactile commands to bend BLE to assist. Required max A x1-2 for rolling R and L to complete pericare and LB dressing at bed level. Transfers/Mobility Sitting balance: Contact Guard, Max Assist Demonstrated heavy R lateral lean and posterior lean. Max verbal and tactile cues to attempt to have to have pt self correct. Intermittent Max A-CGA required for safety. Able to complete sitting at EOB for ~10 minutes with use of R rail. Unsafe to attempt any further OOB activities this date due to poor command Folling. Device(s) used: None Plan Continue acute OT per plan of care. Safety/Education Safety Safety Devices in place: All fall risk precautions in place, call light within reach, left in bed, bed alarm in place, patient at risk for falls, and nurse notified Restraints: No Education Education Given To: patient Education Provided: ADL Adaptive Strategies and Transfer Training Education Method: Verbal and Demonstration Barriers to Learning: Cognition Education Outcome: Unable to Verbalize and Continued Education Needed AM-PAC AM-PAC Inpatient Daily Activity Raw Score: 10 ADL Inpatient CMS G-Code Modifier: CL Goals Patient Stated Goal: to get up to the bathroom. Encounter Problems Encounter Problems (Active) Dressing Upper Extremities Patient will complete upper body dressing SBA (Slowly Progressing) Start: 11/15/24 Expected End: 11/25/24 Dressings Lower Extremities Patient will dress lower body MIN A (Not Progressing) Start: 11/15/24 Expected End: 11/25/24 Mobility Patient will demonstrate functional mobility with MOD A and FWW (Not Addressed) Start: 11/15/24 Expected End: 11/25/24 Therapeutic Exercise Pt will demo good participation in BUE exercises to increase endurance and strength for participation in ADLs and functional transfers / bed mobility. (Not Addressed) Start: 11/15/24 Expected End: 11/25/24 Toileting Patient will complete toileting tasks at bedside commode with mod assist. (Not Addressed) Start: 11/15/24 Expected End: 11/25/24 Transfers Patient will complete functional transfer with rolling walker with mod assist in order to prepare for ambulation. (Not Addressed) Start: 11/15/24 Expected End: 11/25/24 Patient will perform bed mobility with supervision in order to improve independence and prepare for out of bed mobility. (Slowly Progressing) Start: 11/15/24 Expected End: 11/25/24 Therapy Time Individual Co-treatment Time In 0927 Time Out 0950 Minutes (more content not included)... Normal [facility] Progress Note [facility], Pulmonary Medicine [address] [place] [address] [phone] Patient - Carline Villarreal, Age - 78 y.o. - 1945 Room Number - B4-466/B4-466 A Consulting - Ni Sam MD Primary Care Physician - Evi Guevara Acct: No I do not have problem with the patient you know he was kind of he wanted to go home today I just kept him so Maybe can do little earlier okay [phone] [phone] Date of Admission - 11/13/2024 10:39 AM Hospital Day - 3 Chief Complaint Carline Villarreal is a 78 y.o. female who pulmonary is following for respiratory failure Interval History Sitting comfortably in the bed currently on room air Saturation 97 percentile She is afebrile Chest x-ray from reviewed interpreted by me Marked improvement in congestive heart failure pleural effusion May have mild underlying congestion No focal infiltrate HPI Carline Villarreal is a 78 y.o. female admitted for Shortness of breath noted to be in acute hypoxic hypercapnic respiratory failure decompensated congestive heart failure Patient does have a history of dementia as per chart group home resident, diabetes mellitus hypertension stroke Admitted with above complaint Initial VBG did show pH 7.229 pCO2 of 55 pO2 of 32 Patient received IV Lasix diuresed well placed on NIV Follow-up VBG showed pH 7.74 pCO2 of 30 and PO2 of 47 EKG showed T inversion ST ST depression elevated troponin This morning apparently has episode of tachyarrhythmia as per cardiology atrial fibrillation Her saturation was 97 percentile feeling much better this morning however she is not a good historian Currently she was on room air saturation was 97 percentile Never smoked Not on PAP therapy at home Apparently came from [facility] Chest x-ray reviewed interpreted by me Vascular congestion with a small bilateral pleural effusion All other systems reviewed Objective Vitals: BP 150/94 Pulse 96 Temp 36.4 ?C (97.5 ?F) (Temporal) Resp 16 Ht 5' 5 (1.651 m) Wt 210 lb (95.3 kg) SpO2 97% BMI 34.95 kg/m? Pulse Ox: SpO2 Av.6 % Min: 91 % Max: 99 % Supplemental O2: O2 Flow Rate (L/min): 2 L/min I/O 24HR INTAKE/OUTPUT: Intake/Output Summary (Last 24 hours) at 11/16/2024 0749 Last data filed at 11/15/2024 1814 Gross per 24 hour Intake 630 ml Output -- Net 630 ml Exam General appearance: Resting comfortably no respiratory distress HEENT: Normocephalic, atraumatic. Pupils equil and round, External ear normal, conjunctivae normal, negative for scleral icterus. No congestion. Neck: ROM normal, supple, trachea midline. No lymphadenopathy Cardiovascular: Irregular rhythm. Heart sounds normal. Negative for murmur, friction rub or gallop. Tachycardic Pulmonary: Effort normal, no respiratory distress. Moderate air entry Rales posteriorly No wheezing Abdomen: Soft, non distended, non tender, bowel sounds normal. No palpable masses. No Hepatomegaly Musculoskeletal: ROM normal, Negative for swelling, tenderness or deformity. Skin: Warm, dry. Skin color, texture, turgor normal. Negative for rashes or lesions. Extremities: No clubbing, cyanosis, 1+ bipedal edema Neurological: No focal deficits. Alert and oriented x 1. Cranial nerves II-XII are intact Lymphatics: No cervical or axillary lymphadenopathy Psychiatric: Mood, behavior, thought content normal. Cooperative with exam. Medications Current Medications Scheduled Meds[1] PRN Mediations PRN Meds[2] IV Drips/Infusions Continuous Meds[3] Labs CBC Results from last 7 days Lab Units 11/16/24 0456 WBC AUTO 10*3/uL 12.7* HEMOGLOBIN g/dL 14.1 HEMATOCRIT % 41.5 PLATELETS 10*3/uL 317 BMP: Results from last 7 days Lab Units 11/16/24 0456 11/15/24 0550 11/14/24 0044 SODIUM mmol/L 142 144 139 POTASSIUM mmol/L 3.4* 3.3* 3.6 CHLORIDE mmol/L 105 107 105 CO2 mmol/L 23 22* 21* BUN mg/dL 47* 40* 32* CREATININE mg/dL 1.65* 1.56* 1.37* GLUCOSE mg/dL 165* 169* 248* CALCIUM mg/dL 9.1 9.2 9.6 ABG: Results from last 7 days Lab Units 11/13/24 1532 11/13/24 1056 SOURCE OF OXYGEN Nasal Cannula (LPM) Nasal Cannula (LPM) LIVER PROFILE Results from last 7 days Lab Units 11/13/24 1056 ALK PHOS U/L 101 BILIRUBIN TOTAL mg/dL 0.6 PROTEIN TOTAL g/dL 6.8 ALT U/L 11 AST U/L 20 INR PTT No results found for: PTT Cultures Influence pcr neg Radiology Exam Date/Time: 11/13/2024 11:11 Procedure: XR CHEST 1 VIEW Ordering Provider: SALEEM AMY Reason For Exam: COUGH CHEST - PORTABLE: CLINICAL INDICATION: COUGH TECHNIQUE: Portable AP COMPARISON: None. IMPRESSION: FINDINGS/IMPRESSION: Limitations: Mild patient rotation Lines, tubes, and devices: None. Cardiomediastinal silhouette: Heart size is within normal limits. Atherosclerotic calcifications in the thoracic aorta. Lungs/Pleura: Pulmonary vascular congestion right side greater than left. Additional hazy and streaky (more content not included)... Normal [facility] Vital signsOrdered By: Lawrence Keller on 11-16-2024 Heart rate 89 /min bpm [facility] Work Phone: 30on 11-15-2024 30 progressing Normal [facility] BASIC METABOLIC PANELon 11-02 Anion gap [Moles/Vol] 15 mmol/L High 3-13 [facility] Comment on above: Performed By: #### L AB67, [id number], LAB15, [id number], [id number] ####Aquatic Ecologist: FREEMAN DOUGHERTY ([id number])[facility] (SBHLAB)[address] Calcium [Mass/Vol] 9.2 mg/dL Normal 8.8-10.0 [facility] [facility] Comment on above: Performed By: #### L AB67, [id number], LAB15, JHY607, [id number] ####Aquatic Ecologist: FREEMAN DOUGHERTY ([id number])[facility] (SBHLAB)[address] Chloride [Moles/Vol] 107 mmol/L Normal 98-107 [facility] Comment on above: Performed By: #### L AB67, [id number], LAB15, RID701, [id number] ####Aquatic Ecologist: FREEMAN DOUGHERTY ([id number])[facility] (SBHLAB)[address] CO2 [Moles/Vol] 22 mmol/L Low 23-31 [facility] Comment on above: Performed By: #### L AB67, [id number], LAB15, [id number], [id number] ####Aquatic Ecologist: FREEMAN DOUGHERTY ([phone])[facility] (SBHLAB)[address] Creatinine [Mass/Vol] 1.56 mg/dL High 0.57-1.11 [facility] Comment on above: Performed By: #### L AB67, [id number], LAB15, [id number], [id number] ####Aquatic Ecologist: FREEMAN DOUGHERTY ([phone])[facility] (HLAB)[address] GLOMERULAR FILTRATION RATE ML/MIN/1.73 SQ M.PREDICTED 33.9 mL/min/1.73m*2 Low >60.0 [facility] Comment on above: Result Comment: Calc ulation based on the Chronic Kidney Disease Epidemiology Collaboration (CKD-EPI) equation refit without adjustment for race Performed By: #### L AB67, [id number], LAB15, YFR424, [id number] ####Aquatic Ecologist: FREEMAN DOUGHERTY ([phone])[facility] ([facility] Glucose [Mass/Vol] 169 mg/dL High 82-115 [facility] Comment on above: Performed By: #### Nicole AB67, QJV197, LAB15, QBZ923, [id number] ####Aquatic Ecologist: FREEMAN DOUGHERTY ([id number])[facility] (HLAB)[address] Potassium [Moles/Vol] 3.3 mmol/L Low 3.5-5.1 [facility] Comment on above: Result Comment: [facility] potassium values may be up to 0.5 mmol/L lower than serum values. Performed By: #### L AB67, UVF430, LAB15, [id number], [id number] ####Aquatic Ecologist: FREEMAN DOUGHERTY ([id number])[facility] (SBHLAB)[address] Sodium [Moles/Vol] 144 mmol/L Normal 136-145 [facility] Comment on above: Performed By: #### L AB67, ZQF641, LAB15, YLA957, [id number] ####Aquatic Ecologist: FREEMAN DOUGHERTY ([id number])[facility] (SBHLAB)155 [place] [address] [place] Urea nitrogen [Mass/Vol] 40 mg/dL High 9-23 [facility] Comment on above: Performed By: #### L AB67, [id number], LAB15, IZM151, [id number] ####Aquatic Ecologist: FREEMAN DOUGHERTY ([id number])[facility] (SBHLAB)[address] [place] [address] Basic metabolic 1998 panelon 11-15-2024 Anion gap [Moles/Vol] 15 mmol/L High 3 - 13 mmol/L [facility] Calcium [Mass/Vol] 9.2 mg/dL 8.8 - 10. 0 mg/dL [facility] Chloride [Moles/Vol] 107 mmol/L 98 - 10 7 mmol/L [facility] CO2 [Moles/Vol] 22 mmol/L Low 23 - 31 mmol/L [facility] Creatinine [Mass/Vol] 1.56 mg/dL High 0.57 - 1.11 mg/dL [facility] GFR/1.73 sq M.predicted (S/P/Bld) [Vol rate/Area] 33.9 mL/min Low - PINF [facility] Glucose [Mass/Vol] 169 mg/dL High 82 - 115 mg/dL [facility] Interpretation and review of laboratory results Abnormal [facility] Potassium [Moles/Vol] 3.3 mmol/L Low 3.5 - 5.1 mmol/L [facility] Sodium [Moles/Vol] 144 mmol/L 136 - 145 mmol/L [facility] Urea nitrogen [Mass/Vol] 40 mg/dL High 9 - 23 mg/dL [facility] CBC W Auto Differential pane l (Bld)on 11-15-2024 Basophils (Bld) [#/Vol] 0.1 10*3/uL 0.0 - 0.2 10*3/uL [facility] Basophils/100 WBC (Bld) 0.5 % 0.0 - 2.0 % [facility] Eosinophils (Bld) [#/Vol] 0.5 10*3/uL 0.0 - 0.5 10*3/uL [facility] Eosinophils/100 WBC (Bld) 3.5 % 0.0 - 6.0 % [facility] Erythrocyte distribution width (RBC) [Ratio] 14.1 % 11.5 - 15.0 % [facility] Hematocrit (Bld) [Volume fraction] 40.9 % 35.0 - 47.0 % [facility] Hemoglobin (Bld) [Mass/Vol] 13.8 g/dL 11.7 - 16.0 g/dL [facility] Immature granulocytes (Bld) [#/Vol] 0 10*3/uL NINF - 0.1 10*3/uL [facility] Immature granulocytes/100 WBC (Bld) 0.3 % 0.0 - 2.0 % [facility] Interpretation and review of laboratory results Abnormal [facility] Lymphocytes (Bld) [#/Vol] 2.4 10*3/uL 1.0 - 4.3 10*3/uL [facility] Lymphocytes/100 WBC (Bld) 16.2 % 15.0 - 45.0 % [facility] MCH (RBC) [Entitic mass] 31.2 pg 26.0 - 34.0 pg [facility] MCHC (RBC) [Mass/Vol] 33.7 % 30.5 - 36.0 % [facility] MCV (RBC) [Entitic vol] 92.5 fL 77.0 - 99.0 fL [facility] Monocytes (Bld) [#/Vol] 0.9 10*3/uL 0.0 - 0.9 10*3/uL [facility] Monocytes/100 WBC (Bld) 5.7 % 5.0 - 13.0 % [facility] Neutrophils (Bld) [#/Vol] 11.1 10*3/uL High 1.8 - 7.5 10*3/uL [facility] Neutrophils/100 WBC (Bld) 73.8 % 38.0 - 82.0 % [facility] Nucleated RBC/100 WBC (Bld) [Ratio] 0 % [facility] Platelet mean volume (Bld) [Entitic vol] 10.7 fL 9.0 - 12.7 fL [facility] Platelets (Bld) [#/Vol] 308 10*3/uL 140 - 440 10*3/uL [facility] RBC (Bld) [#/Vol] 4.42 10*6/uL 3.80 - 5.2 0 10*6/uL [facility] WBC (Bld) [#/Vol] 15 10*3/uL High 3.6 - 10.7 10*3/uL [facility] CBC WITH AUTO DIFFERENTIALon 11-15-2024 Basophils (Bld) [#/Vol] 0.1 10*3/uL Normal 0.0-0.2 [facility] Comment on above: Performed By: #### L [id number] ####Aquatic Ecologist: FREEMAN DOUGHERTY ([id number])[facility] (SBHLAB)[address] Basophils/100 WBC (Bld) 0.5 % Normal 0.0-2.0 [facility] Comment on above: Performed By: #### L [id number] ####Aquatic Ecologist: FREEMAN DOUGHERTY ([id number])[facility] (SBHLAB)[address] Eosinophils (Bld) [#/Vol] 0.5 10*3/uL Normal 0.0-0.5 [facility] Comment on above: Performed By: #### L [id number] ####Aquatic Ecologist: FREEMAN DOUGHERTY ([id number])[facility] (SBHLAB)[address] Eosinophils/100 WBC (Bld) 3.5 % Normal 0.0-6.0 [facility] Comment on above: Performed By: #### L [id number] ####Aquatic Ecologist: FREEMAN DOUGHERTY ([id number])[facility] (SBHLAB)[address] [place] [address] Erythrocyte distribution width (RBC) [Ratio] 14.1 % Normal 11.5-15.0 [facility] Comment on above: Performed By: #### L [id number] ####Aquatic Ecologist: FREEMAN DOUGHERTY ([id number])[facility] (SBHLAB)[address] Hematocrit (Bld) [Volume fraction] 40.9 % Normal 35.0-47.0 [facility] Comment on above: Performed By: #### L [id number] ####Aquatic Ecologist: FREEMAN DOUGHERTY ([id number])[facility] (SBHLAB)[address] Hemoglobin (Bld) [Mass/Vol] 13.8 g/dL Normal 11.7-16.0 [facility] Comment on above: Performed By: #### L [id number] ####Aquatic Ecologist: FREEMAN DOUGHERTY ([id number])[facility] (SBHLAB)[address] IMMATURE GRANS % 0.3 % Normal 0.0-2.[address] [facility] Comment on above: Performed By: #### L [id number] ####Aquatic Ecologist: FREEMAN DOUGHERTY ([id number])[facility] ([facility])[address] [place] [address] IMMATURE GRANS ABSOLUTE 0.0 10*3/uL Normal <0.1 [facility] Comment on above: Performed By: #### L [id number] ####Aquatic Ecologist: FREEMAN DOUGHERTY ([id number])[facility] (SBHLAB)[address] [place] [address] Lymphocytes (Bld) [#/Vol] 2.4 10*3/uL Normal 1.0-4.3 [facility] Comment on above: Performed By: #### L [id number] ####Aquatic Ecologist: FREEMAN DOUGHERTY ([id number])[facility] (SBHLAB)[address] [place] [address] Lymphocytes/100 WBC (Bld) 16.2 % Normal 15.0-45.0 [facility] Comment on above: Performed By: #### L [id number] ####Aquatic Ecologist: FREEMAN DOUGHERTY ([id number])[facility] (SBHLAB)[address] [place] [address] MCH (RBC) [Entitic mass] 31.2 pg Normal 26.0-34.0 [facility] Comment on above: Performed By: #### L [id number] ####Aquatic Ecologist: FREEMAN DOUGHERTY ([id number])[facility] (SBHLAB)[address] MCHC 33.7 % Normal 30.5-36.0 [facility] Comment on above: Performed By: #### L [id number] ####Aquatic Ecologist: FREEMAN MURPHYMICHAEL ([id number])[facility] (SBHLAB)[address] MCV (RBC) [Entitic vol] 92.5 fL Normal 77.0-99.0 [facility] Comment on above: Performed By: #### L [id number] ####Aquatic Ecologist: FREEMAN MURPHYMICHAEL ([id number])[facility] (SBHLAB)[address] Monocytes (Bld) [#/Vol] 0.9 10*3/uL Normal 0.0-0.9 [facility] Comment on above: Performed By: #### L [id number] ####Aquatic Ecologist: FREEMAN MURPHYMICHAEL ([id number])[facility] (SB[facility]AB)[address] Monocytes/100 WBC (Bld) 5.7 % Normal 5.0-13.0 [facility] Comment on above: Performed By: #### L [id number] ####Aquatic Ecologist: FREEMAN MURPHYMICHAEL ([id number])[facility] (SBHLAB)[address] NEUTROPHILS ABSOLUTE 11.1 10*3/uL High 1.8-7.5 [facility] Comment on above: Performed By: #### L [id number] ####Aquatic Ecologist: FREEMAN MURPHYMICHAEL ([id number])[facility] (SBHLAB)[address] Neutrophils/100 WBC (Bld) 73.8 % Normal 38.0-82.0 [facility] Comment on above: Performed By: #### L [id number] ####Aquatic Ecologist: FREEMAN DOUGHERTY ([id number])[facility] (SBHLAB)[address] NRBC 0.0 /100 WBCs Normal 0.0-2.0 [facility] Comment on above: Performed By: #### L [id number] ####Aquatic Ecologist: FREEMAN DOUGHERTY ([id number])[facility] (SBHLAB)[address] Platelet mean volume (Bld) [Entitic vol] 10.7 fL Normal 9.0-12.7 [facility] Comment on above: Performed By: #### L [id number] ####Aquatic Ecologist: FREEMAN DOUGHERTY ([id number])[facility] (SB[facility]AB)[address] Platelets (Bld) [#/Vol] 308 10*3/uL Normal 140-440 [facility] Comment on above: Performed By: #### L [id number] ####Aquatic Ecologist: FREEMAN DOUGHERTY ([id number])[facility] (SB[facility]AB)[address] RBC (Bld) [#/Vol] 4.42 10*6/uL Normal 3.80-5.20 [facility] Comment on above: Performed By: #### L [id number] ####Aquatic Ecologist: FREEMAN DOUGHERTY ([id number])[facility] (SB[facility]AB)[address] [place] [address] WBC (Bld) [#/Vol] 15.0 10*3/uL High 3.6-10.7 [facility] Comment on above: Performed By: #### L [id number] ####Aquatic Ecologist: FREEMAN DOUGHERTY ([id number])[facility] (SBHLAB)[address] Consulton 11-15-2024 Consult [facility] Inpatient Consult Service Admission Date: 11/13/2024 Admission Status: INPATIENT Chief Complaint: fall Reason for Appointment Geriatrics consulted for confusion restless with underlying dementia with prolonged qtc Assessment & Plan Principal Problem: Acute exacerbation of chronic heart failure (HCC) Dementia --[facility] --History of stroke with worsening cognitive decline. --MRI 12/17/23: 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 Chronic small vessel ischemic change. --Check TSH and B12 --No baseline behaviors --Try to avoid anticholinergic medications At risk for delirium --Risk factors: pain, advanced age, sensory impairments, acute illness, history of delirium, and baseline cognitive deficits --Reported to have restlessness yesterday. Better today. --Encourage PO intake, time up in chair, family visits, and sleep hygiene --If agitated, assess for and consider treating for pain --QTc= 508 ms --No antipsychotic due to QTc>500; if patient is danger to self/others/treatment consider low dose benzo use (Lorazepam 0.25mg PO every 8 hours as needed for agitation). Recommend repeating EKG. --Continue scheduled melatonin at --Monitor for constipation/urinary retention - last BM 11/14 --Possible medication contributions: none Debility --Contributing factors include stroke, Dementia, Chronic pain, heart failure --nathan lift and use of wheelchair at baseline --PT and OT eval pending. --Anticipate return to [place] Bipolar Disorder Anxiety --takes Lexapro 5mg daily at facility - was being weaned there. Will hold off restarting. --Continue Duloxetine 30mg daily --Continue Buspar 2.5mg BID Chronic pain --Takes Oxycodone-Acetaminophe n 5/325 mg 1 tab every 8 hours as needed at facility. Takes 1 tab every few days. Currently ordered. --Home dose of Gabapentin 600mg BID. Currently ordered 300mg BID. Due to EDWIGE, will continue at this dose with goal to titrate back to home dose while monitoring renal function. Monitor for withdrawal. I spent total time of 70 minutes face to face with the patient and/or family discussing the diagnosis and importance of compliance with the treatment plan as well as documenting on the day of the visit. In addition, that total time includes the following: -Reviewing previous notes, -Reviewing labs, -Obtaining and/or reviewing separately obtained history, -Ordering prescription medications, tests and procedures, -Communicating results to the patient/family/caregiv er, -Counseling/educating the patient/family/caregiv er, -Documenting clinical information in the patients electronic record, and -Performing a medically appropriate exam and/or evaluation Subjective: HPI 78 y.o. year-old female with PMH of DM, stroke with left sided weakness, HTN, CKD, hypothyroidism, Bipolar disorder, Gout, Migraines, Dementia presented to [facility] from nursing facility on 11/13/24 with complaints of shortness of breath, cough, and hypoxia. Admitted with pneumonia of both lower lobes, CHF, EDWIGE. Concern for undiagnosed GABRIELE/OHS. Pulmonology consulted - acute hypoxic and hypercapnic respiratory failure likely due to acute decompensated congestive heart failure. ECHO 11/13 EF 35%, Grade II diastolic dysfunction. Quick Cognitive Screen (QCS): Positive QCS Intervention Patient Safety: Maintain visualization, Curtain Open / Maintain privacy Patient with Constant Observation: Monitored Room stone dresser completed: Pt deemed to not be an elopement risk Nursing Delirium Screen (Nu-Desc): Nursing Delirium Symptom Checklist Total Score: 1 Conversation with patient: -Reports breathing is ok. States she has pain in both knees and left hip. Slept ok - says she was told last night go to sleep. She knows she is in the hospital and states she is here due to a fall. Not able to state where she lives. Conversation with caregiver: Rosas son. -Lives in [facility]. Difficult to obtain history from her due to Dementia. If you ask if she has pain she will say yes. -Frequent UTIs -Stroke 4 years ago affected left side -Mood is always good. -Does not usually knows where she is. -No recent falls. Nursing reports no behaviors. No overnight issues. LTC nursing - pleasant. Incontinent of bowel and bladder. Eats well. Sleeps well. Takes Percocet PRN - takes 1 tab every few days. Current Buspar dose is dose decrease. Previously on 5mg BID. Lexapro also decreased. PDMP reviewed Gabapentin 600mg for BID dosing since Aug 2024. On 300 mg BID prior to this. Advance Care Planning Healthcare Power of Employee Benefits Coordinator: Yes, Rosas arredondo Code Status: DNR-CCA Allergies[1] Current Medications[2] Medical History[3] Surgical History[4] Social History Tobacco Use Smoking status: Some Days Types: Cigarettes Smokeless tobacco: Not on file [facility] (more content not included)... Normal [facility] ECG 12-LEADon 11-15-2024 ECG 12-LEAD IMPRESSION: Sinus rhythm Ventricular tachycardia, unsustained LVH with secondary repolarization abnormality Abnormal T, consider ischemia, diffuse leads Prolonged QT interval Electronically Signed On 11-15-2024 11:36:17 EDT by Mary Bravo Normal [facility] Laboratory - Chemistry and C hemistry - challengeon 11-15-2024 Glucose [Mass/Vol] 171 mg/dL High 70 - 100 mg/dL [facility] Glucose [Mass/Vol] 173 mg/dL High 70 - 100 mg/dL [facility] Cobalamin (Vitamin B12) [Mass/Vol] 310 pg/mL 213 - 816 pg/mL [facility] TSH Qn 3.36 m[IU]/L [facility] Procalcitonin [Mass/Vol] 0.08 ng/mL High NINF - 0.07 ng/mL [facility] Glucose [Mass/Vol] 160 mg/dL High 70 - 100 mg/dL [facility] Glucose [Mass/Vol] 233 mg/dL High 70 - 100 mg/dL [facility] Magnesium [Mass/Vol] 1.4 mg/dL Low 1.6 - 2 .6 mg/dL [facility] MAGNESIUMon 11-15-2024 Magnesium [Mass/Vol] 1.4 mg/dL Low 1.6-2.6 [facility] Comment on above: Result Comment: SUKH Smith COMMENTS: Higher values can be expected in females during menses. Performed By: #### L AB67, [id number], LAB15, WDX071, [id number] ####Aquatic Ecologist: FREEMAN DOUGHERTY ([id number])[facility] ([facility])[address] [place] [address] Magnesium [Mass/Vol]on 11-15 Interpretation and review of laboratory results Abnormal [facility] No Panel Informationon 11-15 Interpretation and review of laboratory results Abnormal [facility] Interpretation and review of laboratory results Abnormal [facility] Interpretation and review of laboratory results Normal [facility] CV EPIPHANY [facility] Interpretation and review of laboratory results Abnormal [facility] Interpretation and review of laboratory results Abnormal [facility] [employer] No Panel InformationOrdered By: Mary Bravo on 11-15-2024 P [place] 43 degrees [employer] Work Phone: LA Interval 190 ms [employer] Phone: [phone] QRS [place] 14 degrees [employer] Phone: QRSD Interval 92 ms [employer] Work Phone: QT Interval 406 ms [employer] Phone: [phone] QTC Interval 508 ms [employer] Work Phone: [phone] T Wave [place] 201 degrees [employer] Phone: [employer] Phone: PROCALCITONIN TESTon 025 PROCALCITONIN 0.08 ng/mL High <0.07 [facility] Comment on above: Result Comment: SUKH R COMMENTS: PCT <0.50 = Low risk of severe sepsis and/or septic shock. PCT >2.00 = High risk of severe sepsis and/or septic shock. Performed By: #### L AB67, [id number], LAB15, UJK190, [id number] ####Aquatic Ecologist: FREEMAN DOUGHERTY ([id number])[facility] ([facility])[address] [place] [address] Procalcitonin [Mass/Vol]on 0 11-15-2024 Interpretation and review of laboratory results Abnormal [facility] Progress Noteon 11-15-2024 Progress Note PHYSICAL THERAPY [facility] Name/MRN: Carline Villarreal ([id number]) Date: 11/15/2024 PT order received and chart reviewed. SPT and PT presented to room and introduced self/role. Pt with intermittent SOB at rest. SpO2 99% on room air. Pt reported mid sternal chest pain and dizziness. RN notified immediately. Reports BP high and plan for EKG. Will await results/medical stability prior to therapy eval. Rosalie Jacob, SPT Normal [facility] Progress Note Nutrition rescreen completed. Chart reviewed. Patient to be monitored and followed by the diet electronic train control technician. Normal [facility] Progress Note [facility], Pulmonary Medicine [address] [place], [facility] [address] Patient - Carline Villarreal, Age - 78 y.o. - 1945 Room Number - [id number]/[id number] Consulting - Ni Sam MD Primary Care Physician - Evi Guevara Acct: No I do not have problem with the patient you know he was kind of he wanted to go home today I just kept him so Maybe can do little earlier okay [id number]- [id number] Date of Admission - 11/13/2024 10:39 AM Hospital Day - 2 Chief Complaint Carline Villarreal is a 78 y.o. female who pulmonary is following for respiratory failure Interval History Awake and alert resting on the bed Denies shortness of breath or chest pain Oxygen saturation 95 to 97% on room air Not using PAP therapy Chest x-ray from this morning reviewed interpreted by me Marked improvement in congestive heart failure pleural effusion May have mild underlying congestion No focal infiltrate HPI Carline Villarreal is a 78 y.o. female admitted for Shortness of breath noted to be in acute hypoxic hypercapnic respiratory failure decompensated congestive heart failure Patient does have a history of dementia as per chart group home resident, diabetes mellitus hypertension stroke Admitted with above complaint Initial VBG did show pH 7.229 pCO2 of 55 pO2 of 32 Patient received IV Lasix diuresed well placed on NIV Follow-up VBG showed pH 7.74 pCO2 of 30 and PO2 of 47 EKG showed T inversion ST ST depression elevated troponin This morning apparently has episode of tachyarrhythmia as per cardiology atrial fibrillation Her saturation was 97 percentile feeling much better this morning however she is not a good historian Currently she was on room air saturation was 97 percentile Never smoked Not on PAP therapy at home Apparently came from [facility] years ago Chest x-ray reviewed interpreted by me Vascular congestion with a small bilateral pleural effusion All other systems reviewed Objective Vitals: BP (!) 174/101 (BP Location: Right arm, Patient Position: Lying) Pulse 98 Temp 36.1 ?C (97 ?F) (Temporal) Resp 17 Ht 5' 5 (1.651 m) Wt 210 lb (95.3 kg) SpO2 97% BMI 34.95 kg/m? Pulse Ox: SpO2 Av.7 % Min: 92 % Max: 97 % Supplemental O2: O2 Flow Rate (L/min): 4 L/min I/O 24HR INTAKE/OUTPUT: Intake/Output Summary (Last 24 hours) at 11/15/2024 0850 Last data filed at 11/15/2024 0620 Gross per 24 hour Intake 240 ml Output 2 ml Net 238 ml Exam General appearance: Resting comfortably no respiratory distress HEENT: Normocephalic, atraumatic. Pupils equil and round, External ear normal, conjunctivae normal, negative for scleral icterus. No congestion. Neck: ROM normal, supple, trachea midline. No lymphadenopathy Cardiovascular: Irregular rhythm. Heart sounds normal. Negative for murmur, friction rub or gallop. Tachycardic Pulmonary: Effort normal, no respiratory distress. Moderate air entry Rales posteriorly No wheezing Abdomen: Soft, non distended, non tender, bowel sounds normal. No palpable masses. No Hepatomegaly Musculoskeletal: ROM normal, Negative for swelling, tenderness or deformity. Skin: Warm, dry. Skin color, texture, turgor normal. Negative for rashes or lesions. Extremities: No clubbing, cyanosis, 1+ bipedal edema Neurological: No focal deficits. Alert and oriented x 1. Cranial nerves II-XII are intact Lymphatics: No cervical or axillary lymphadenopathy Psychiatric: Mood, behavior, thought content normal. Cooperative with exam. Medications Current Medications Scheduled Meds[1] PRN Mediations PRN Meds[2] IV Drips/Infusions Continuous Meds[3] Labs CBC Results from last 7 days Lab Units 11/15/24 0550 WBC AUTO 10*3/uL 15.0* HEMOGLOBIN g/dL 13.8 HEMATOCRIT % 40.9 PLATELETS 10*3/uL 308 BMP: Results from last 7 days Lab Units 11/15/24 0550 11/14/24 0044 11/13/24 1056 SODIUM mmol/L 144 139 141 POTASSIUM mmol/L 3.3* 3.6 3.6 CHLORIDE mmol/L 107 105 105 CO2 mmol/L 22* 21* 20* BUN mg/dL 40* 32* 28* CREATININE mg/dL 1.56* 1.37* 1.41* GLUCOSE mg/dL 169* 248* 169* CALCIUM mg/dL 9.2 9.6 9.1 ABG: Results from last 7 days Lab Units 11/13/24 1532 11/13/24 1056 SOURCE OF OXYGEN Nasal Cannula (LPM) Nasal Cannula (LPM) LIVER PROFILE Results from last 7 days Lab Units 11/13/24 1056 ALK PHOS U/L 101 BILIRUBIN TOTAL mg/dL 0.6 PROTEIN TOTAL g/dL 6.8 ALT U/L 11 AST U/L 20 INR PTT No results found for: PTT Cultures Influence pcr neg Radiology Exam Date/Time: 11/13/2024 11:11 Procedure: XR CHEST 1 VIEW Ordering Provider: SALEEM AMY Reason For Exam: COUGH CHEST - PORTABLE: CLINICAL INDICATION: COUGH TECHNIQUE: Portable AP COMPARISON: None. IMPRESSION: FINDINGS/IMPRESSION: Limitations: Mild patient rotation Lines, tubes, and devices: None. Cardiomediastinal silhouette: Heart size is within normal limits. Atherosclerotic calcifications in the thorac (more content not included)... Normal [facility] THYROID STIMULATING HORMONEo n 11-15-2024 THYROID STIMULATING HORMONE 3.36 uIU/mL Normal 0.35-4.94 [facility] Comment on above: Performed By: #### L AB67, [id number], LAB15, [id number], [id number] ####Aquatic Ecologist: FREEMAN SUAREZMAYRA ([id number])[facility] ([facility])[address] [place] [address] VITAMIN B12on 11-15-2024 Cobalamin (Vitamin B12) [Mass/Vol] 310 pg/mL Normal 213-816 [facility] Comment on above: Performed By: #### L AB67, JJN897, LAB15, [id number], [id number] ####Aquatic Ecologist: FREEMAN DOUGHERTY ([id number])[facility] ([facility])[address] [place] [address] Vital signsOrdered By: Chico Bravo on 11-15-2024 Heart rate 104 /min bpm [facility] Work Phone: XR CHEST 1 VIEWon 11-15-2024 XR CHEST 1 VIEW Patient Name: CARLINE VILLARREAL : 1945 Exam Date/Time: 11/15/2024 08:00 Procedure: XR CHEST 1 VIEW Ordering Provider: HALL IFTEKHAR Reason For Exam: CHF pleural effusion follow-up EXAM: XR Chest, 1 View CLINICAL INDICATION: CHF pleural effusion follow-up. Wheezing and shortness of breath. TECHNIQUE: Frontal view of the chest. COMPARISON: Chest radiograph from 11/13/2024 FINDINGS: LUNGS AND PLEURAL SPACES: Unremarkable. No pneumothorax. No focal consolidation. No sizable pleural effusion. HEART: Stable mild prominence of the cardiac silhouette. MEDIASTINUM: Unremarkable. Normal mediastinal contour. BONES/JOINTS: Bilateral shoulder arthroplasties. Bilateral acromioclavicular joint DJD. Degenerative change of the spine. No acute fracture. VASCULATURE: Calcification of the thoracic aorta. IMPRESSION: No acute cardiopulmonary abnormality. Report Dictated on Electronically Signed By: Cee Lewis MD Electronically Signed Date/Time: 11/15/2024 11:24 AM EDT Pt c/o wheezing sob; follow up effusion Normal [facility] XR Chest Single viewon 11-15 [facility] RADIOLOGY [facility] Radiology Study observation (narrative) [facility] XR Chest Single viewOrdered By: Cee Lewis on 11-15-2024 [facility] Work Phone: 30on 11-14-2024 30 Problem: Knowledge Deficit Goal: Patient/family/caregiv er demonstrates understanding of disease process, treatment plan, medications, and discharge instructions Outcome: Progressing Problem: Potential for Compromised Skin Integrity Goal: Skin Integrity is Maintained or Improved Outcome: Progressing Goal: Nutritional status is improving Outcome: Progressing Normal [facility] 30 Problem: Knowledge Deficit Goal: Patient/family/caregiv er demonstrates understanding of disease process, treatment plan, medications, and discharge instructions 11/15/2024 0302 by Charlene Abad RN Outcome: Progressing 11/15/2024 015 by Charlene Abad RN Outcome: Progressing Problem: Potential for Compromised Skin Integrity Goal: Skin Integrity is Maintained or Improved 11/15/2024 0302 by Charlene Abad RN Outcome: Progressing 11/15/2024 015 by Charlene Abad RN Outcome: Progressing Goal: Nutritional status is improving Outcome: Progressing Problem: Urinary Incontinence Goal: Perineal skin integrity is maintained or improved Outcome: Progressing Normal [facility] [id number] 11-14-2024 [id number] While rounding asked to assess pt for tachycardia 100-180. VS stable no c/o CP. EKG changes. Dr. Franz and Dr. Hinton notified via secure chat. See cardiology note [facility] [id number] 11-14-2024 [id number] Patient arrives via EMS from [facility] at 76% on room air. EMS placed patient on BIPAP during transport. Patient currently receiving IV zosyn, and vancomycin. Consults to Cardiology, Pulmonology, Palliative and Geriatrics, and PT/OT. Anticipate patient will return to [facility]- return referral sent. No authorization needed to return. CM following to assist with discharge needs. [facility] [phone] [facility] Palliative Care Transitions of Care Note Carline Villarreal : 1945 ADMIT DATE: 11/13/2024 DISCHARGE DATE: TBD PRIMARY CARE PHYSICIAN: Evi Guevara CODE STATUS: DNR-CCA DISCHARGE DIAGNOSES: Principal Problem: Pneumonia of both lower lobes due to infectious organism HOSPITAL COURSE: Carline Villarreal is a 78 y.o. female from SNF with PMHx of HFpEF, DM 2, Stroke with left hemiparesis, hypertension who was admitted to [facility] on 11/13 for SOB. Patient reportedly had saturation of 76 % on RA at SNF. When EMS first arrived, she was placed on BIPAP during transport to ED. Patient was started on IV antibiotics for pneumonia. Palliative care consulted for goals of care. Acute hypoxic/hypercapnic respiratory failure - improved, patient off oxygen now - per pulmonology notes likely secondary to acute decompensated congestive heart failure which clinically has improved after brisk diuresis Acute on chronic HFpEF - patient volume overloaded on admission - transitioned to hydrochlorothiazide from IV lasix Atrial Fibrillation - nonsustained, 2 episodes, asymptomatic - patient is not a candidate for OAC - on metoprolol 50 mg po BID - per cardiology notes she is not a candidate for invasive evaluation and management due to significant underlying dementia/debility Dementia - patient's mentation better than yesterday, on baseline behaviors - Geriatrics on case Bipolar Disorder/Anxiety - on Duloxetine 30 mg daily, Buspar 2.5 mg BID Stroke with left hemiparesis - PT, OT on case Chronic pain - patient on Oxycodone-Acetaminophe n 5/325 mg 1 tab every 8 hours as needed, Gabapentin 600 mg BID at facility - Gabapentin changed to 300 mg BID due to EDWIGE CODE STATUS DISCUSSIONS: Carline Villarreal lacks capacity for medical decision-making due to dementia and encephalopathy. -legal surrogate decision maker is sonRosas (Phone: [phone]) - patient has 2 children 1 son and 1 daughter - met with patient and son Rosas this am , patient was more alert, oriented today AxOX2-3 - discussed goals, discussed hospice - Discussed the medicare hospice benefit, explained it will provide nurses, aides, massage therapy, spiritual care, social work and physicians. Discussed comfort medications and supplies will be included. Discussed goals of comfort focused care. Discussed that family will have number to call hospice 24 hours per day for concerns, that they can call hospice instead of 911. Reviewed that if patients require inpatient admission for uncontrolled symptoms they can be directly admitted to Palliative Care and Hospice Unit. - Rosas was appreciative of the information, stated at this time they want patient to go back to [facility] for PT/OT - Rosas stated that they are not ready fro hospice - provided empathetic listening and emotional support to patient and Rosas - patient already has DNRCCA established - discussed with primary team attending Dr. Mayfield, bedside RN - since family has clearly established goals for patient, our team will sign off at this time SYMPTOM MANAGEMENT MEDICATIONS: - not prescribed by our team DISPOSITION: TBD Follow up with PCP on patient to call. If appointment not scheduled, patient should be scheduled within 1-2 weeks. Reason for Outpatient/Home/ECF Palliative Care follow-up: N/A Opiate Prescribing - not prescribed by our team SIGNED: Vickie Parra MD 11/14/2024, 10:06 AM Normal [facility] BASIC METABOLIC PANELon 11-02 Anion gap [Moles/Vol] 13 mmol/L Normal - [facility] Comment on above: Performed By: #### L AB15 ####Aquatic Ecologist: FREEMAN DOUGHERTY ([id number])[facility] ([facility])[address] Calcium [Mass/Vol] 9.6 mg/dL Normal 8.8-10.0 [facility] Comment on above: Performed By: #### L AB15 ####Aquatic Ecologist: FREEMAN DOUGHERTY ([phone])[facility]REH[facility] ([facility])[address] [place] [address] [place] Chloride [Moles/Vol] 105 mmol/L Normal 98-107 [facility] Comment on above: Performed By: #### L AB15 ####Aquatic Ecologist: FREEMAN DOUGHERTY ([id number])[facility]RE[facility] ([facility])[address] CO2 [Moles/Vol] 21 mmol/L Low 23-31 [facility] Comment on above: Performed By: #### L AB15 ####Aquatic Ecologist: FREEMAN DOUGHERTY ([phone])[facility] ([facility])[address] Creatinine [Mass/Vol] 1.37 mg/dL High 0.57-1.11 [facility] Comment on above: Performed By: #### L AB15 ####Aquatic Ecologist: FREEMAN DOUGHERTY ([phone])[facility] ([facility])[address] [place] [address] [place] GLOMERULAR FILTRATION RATE ML/MIN/1.73 SQ M.PREDICTED 39.6 mL/min/1.73m*2 Low >60.0 [facility] Comment on above: Result Comment: Calc ulation based on the Chronic Kidney Disease Epidemiology Collaboration (CKD-EPI) equation refit without adjustment for race Performed By: #### L AB15 ####Aquatic Ecologist: FREEMAN DOUGHERTY ([id number])[facility] ([facility])[address] [place] [address] [place] Glucose [Mass/Vol] 248 mg/dL High 82-115 [facility] Comment on above: Performed By: #### L AB15 ####Aquatic Ecologist: FREEMAN DOUGHERTY ([id number])[facility] ([facility])[address] [place], [place] [id number] [place] [address] Potassium [Moles/Vol] 3.6 mmol/L Normal 3.5-5.1 [facility] Comment on above: Result Comment: [facility] potassium values may be up to 0.5 mmol/L lower than serum values. Performed By: #### L AB15 ####Aquatic Ecologist: FREEMANSUGEY DOUGHERTY ([id number])[facility] [place] ([facility])[address] Sodium [Moles/Vol] 139 mmol/L Normal 136-145 [facility] Comment on above: Performed By: #### L AB15 ####Aquatic Ecologist: FREEMAN SUAREZMAYRA ([id number])[facility] ([facility])[address] Urea nitrogen [Mass/Vol] 32 mg/dL High 9-23 [facility] Comment on above: Performed By: #### L AB15 ####Aquatic Ecologist: FREEMANSUGEY DOUGHERTY ([id number])[facility] ([facility])[address] Basic Metabolic Profile (BMP )on 11-14-2024 BUN Normal 4-19 [facility] Comment on above: Order Comment: 303.2 Result Comment: [facility] Performed By: #### M , #### [facility] [address] [facility] [address] BUN/CRE Normal 10-20 [facility] Comment on above: Order Comment: 303.2 Result Comment: [facility] Performed By: #### M , #### [facility] [address] [place], [address] Calcium Normal 7.6-11.0 [facility] Comment on above: Order Comment: 303.2 Result Comment: [facility] Performed By: #### M , #### [facility] [address] [place], [address] CL Normal 98-108 [facility] Comment on above: Order Comment: 303.2 Result Comment: [facility] Performed By: #### M .2199, L400.2010 #### [facility] [address] [place], [address] CO2 Normal 21.0-32.0 [facility] Comment on above: Order Comment: 303.2 Result Comment: [facility] Performed By: #### M , L4.2010 #### [facility] [address] [place], [address] CREAT,SERUM Normal 0.70-1.20 [facility] Comment on above: Order Comment: 303.2 Result Comment: [facility] Performed By: #### M , L4.2010 #### [facility] [address] [place], [address] eGFR Normal >60 [facility] Comment on above: Order Comment: 303.2 Result Comment: [facility] Performed By: #### M , L4.2010 #### [facility] [address] [place], [address] GAP Normal 5-15 [facility] Comment on above: Order Comment: 303.2 Result Comment: [facility] Performed By: #### M , L4.2010 #### [facility] [address] [place], [address] GLU Normal 70-99 [facility] Comment on above: Order Comment: 303.2 Result Comment: [facility] Performed By: #### M , L400.2010 #### [facility] [address] [place], [address] Potassium Normal 3.3-5.1 [facility] Comment on above: Order Comment: 303.2 Result Comment: [facility] Performed By: #### M 100.2200, L400.2010 #### [facility] [address] [place], [place], [address] Basic Metabolic Profile (BMP) Normal 133-145 [facility] Comment on above: Order Comment: 303.2 Result Comment: [facility] Performed By: #### M 100.2200, L400.2010 #### [facility] [address] [place], [place], [address] Basic metabolic 1998 panelon 11-14-2024 Anion gap [Moles/Vol] 13 mmol/L 3 - 13 mmol/L [facility] Calcium [Mass/Vol] 9.6 mg/dL 8.8 - 10. 0 mg/dL [facility] Chloride [Moles/Vol] 105 mmol/L 98 - 10 7 mmol/L [facility] CO2 [Moles/Vol] 21 mmol/L Low 23 - 31 mmol/L [facility] Creatinine [Mass/Vol] 1.37 mg/dL High 0.57 - 1.11 mg/dL [facility] GFR/1.73 sq M.predicted (S/P/Bld) [Vol rate/Area] 39.6 mL/min Low - PINF [facility] Glucose [Mass/Vol] 248 mg/dL High 82 - 115 mg/dL [facility] Interpretation and review of laboratory results Abnormal [facility] Potassium [Moles/Vol] 3.6 mmol/L 3.5 - 5.1 mmol/L [facility] Sodium [Moles/Vol] 139 mmol/L 136 - 145 mmol/L [facility] Urea nitrogen [Mass/Vol] 32 mg/dL High 9 - 23 mg/dL [facility] CBC W Auto Differential pane l (Bld)on 11-14-2024 Basophils (Bld) [#/Vol] 0 10*3/uL 0.0 - 0.2 10*3/uL [facility] Basophils/100 WBC (Bld) 0.1 % 0.0 - 2.0 % [facility] Eosinophils (Bld) [#/Vol] 0 10*3/uL 0.0 - 0.5 10*3/uL [facility] Eosinophils/100 WBC (Bld) 0 % 0.0 - 6.0 % [facility] Erythrocyte distribution width (RBC) [Ratio] 13.5 % 11.5 - 15.0 % [facility] Hematocrit (Bld) [Volume fraction] 40.5 % 35.0 - 47.0 % [facility] Hemoglobin (Bld) [Mass/Vol] 13.9 g/dL 11.7 - 16.0 g/dL [facility] Immature granulocytes (Bld) [#/Vol] 0 10*3/uL NINF - 0.1 10*3/uL [facility] Immature granulocytes/100 WBC (Bld) 0.4 % 0.0 - 2.0 % [facility] Interpretation and review of laboratory results Abnormal [facility] Lymphocytes (Bld) [#/Vol] 0.8 10*3/uL Low 1.0 - 4.3 10*3/uL [facility] Lymphocytes/100 WBC (Bld) 7.5 % Low 15.0 - 45.0 % [facility] MCH (RBC) [Entitic mass] 31.7 pg 26.0 - 34.0 pg [facility] MCHC (RBC) [Mass/Vol] 34.3 % 30.5 - 36.0 % [facility] MCV (RBC) [Entitic vol] 92.3 fL 77.0 - 99.0 fL [facility] Monocytes (Bld) [#/Vol] 0.2 10*3/uL 0.0 - 0.9 10*3/uL [facility] Monocytes/100 WBC (Bld) 2.2 % Low 5.0 - 13.0 % [facility] Neutrophils (Bld) [#/Vol] 9.4 10*3/uL High 1.8 - 7.5 10*3/uL [facility] Neutrophils/100 WBC (Bld) 89.8 % High 38.0 - 82.0 % [facility] Nucleated RBC/100 WBC (Bld) [Ratio] 0 % [facility] Platelet mean volume (Bld) [Entitic vol] 10.6 fL 9.0 - 12.7 fL [facility] Platelets (Bld) [#/Vol] 282 10*3/uL 140 - 440 10*3/uL [facility] RBC (Bld) [#/Vol] 4.39 10*6/uL 3.80 - 5.2 0 10*6/uL [facility] WBC (Bld) [#/Vol] 10.5 10*3/uL 3.6 - 10.7 10*3/uL [facility] CBC WITH AUTO DIFFERENTIALon 11-14-2024 Basophils (Bld) [#/Vol] 0.0 10*3/uL Normal 0.0-0.2 [facility] Comment on above: Performed By: #### L [id number] ####Aquatic Ecologist: FREEMAN DOUGHERTY ([id number])[facility] ([facility])[address] Basophils/100 WBC (Bld) 0.1 % Normal 0.0-2.0 [facility] Comment on above: Performed By: #### L [id number] ####Aquatic Ecologist: FREEMAN DOUGHERTY ([id number])[facility] ([facility])[address] [place] [address] [place] Eosinophils (Bld) [#/Vol] 0.0 10*3/uL Normal 0.0-0.5 [facility] Comment on above: Performed By: #### L [id number] ####Aquatic Ecologist: FREEMAN DOUGHERTY ([id number])[facility] ([facility])[address] Eosinophils/100 WBC (Bld) 0.0 % Normal 0.0-6.0 [facility] Comment on above: Performed By: #### L [id number] ####Aquatic Ecologist: FREEMAN DOUGHERTY ([id number])[facility] ([facility])[address] Erythrocyte distribution width (RBC) [Ratio] 13.5 % Normal 11.5-15.0 [facility] Comment on above: Performed By: #### L [id number] ####Aquatic Ecologist: FREEMAN DOUGHERTY ([id number])[facility] ([facility])[address] Hematocrit (Bld) [Volume fraction] 40.5 % Normal 35.0-47.0 [facility] Comment on above: Performed By: #### L [id number] ####Aquatic Ecologist: FREEMAN DOUGHERTY ([id number])[facility] ([facility])[address] [place] [address] Hemoglobin (Bld) [Mass/Vol] 13.9 g/dL Normal 11.7-16.0 [facility] Comment on above: Performed By: #### L [id number] ####Aquatic Ecologist: FREEMAN DOUGHERTY ([id number])[facility] ([facility])[address] [place] [address] IMMATURE GRANS % 0.4 % Normal 0.0-2.0 [facility] Comment on above: Performed By: #### L [id number] ####Aquatic Ecologist: FREEMAN DOUGHERTY ([id number])[facility] ([facility])[address] [place] [address] IMMATURE GRANS ABSOLUTE 0.0 10*3/uL Normal <0.1 [facility] Comment on above: Performed By: #### L [id number] ####Aquatic Ecologist: FREEMAN DOUGHERTY ([id number])[facility] ([facility])[address] [place] [address] Lymphocytes (Bld) [#/Vol] 0.8 10*3/uL Low 1.0-4.3 [facility] Comment on above: Performed By: #### L [id number] ####Aquatic Ecologist: FREEMAN DOUGHERTY ([id number])[facility] ([facility])[address] [place] [address] Lymphocytes/100 WBC (Bld) 7.5 % Low 15.0-45.0 [facility] Comment on above: Performed By: #### L [id number] ####Aquatic Ecologist: FREEMAN DOUGHERTY ([id number])[facility] ([facility])[address] [place] [address] MCH (RBC) [Entitic mass] 31.7 pg Normal 26.0-34.0 [facility] Comment on above: Performed By: #### L [id number] ####Aquatic Ecologist: FREEMAN DOUGHERTY ([id number])[facility] ([facility])[address] MCHC 34.3 % Normal 30.5-36.0 [facility] Comment on above: Performed By: #### L [id number] ####Aquatic Ecologist: FREEMAN MURPHYMICHAEL ([id number])[facility] ([facility])[address] MCV (RBC) [Entitic vol] 92.3 fL Normal 77.0-99.0 [facility] Comment on above: Performed By: #### L [id number] ####Aquatic Ecologist: FREEMAN MURPHYMICHAEL ([id number])[facility] ([facility])[address] [place] [address] Monocytes (Bld) [#/Vol] 0.2 10*3/uL Normal 0.0-0.9 [facility] Comment on above: Performed By: #### L [id number] ####Aquatic Ecologist: FREEMAN MURPHYMICHAEL ([id number])[facility] ([facility])[address] Monocytes/100 WBC (Bld) 2.2 % Low 5.0-13.0 [facility] Comment on above: Performed By: #### L [id number] ####Aquatic Ecologist: FREEMAN DOUGHERTY ([id number])[facility] ([facility])[address] NEUTROPHILS ABSOLUTE 9.4 10*3/uL High 1.8-7.5 [facility] Comment on above: Performed By: #### L [id number] ####Aquatic Ecologist: FREEMAN MURPHYMICHAEL ([id number])[facility] ([facility])[address] Neutrophils/100 WBC (Bld) 89.8 % High 38.0-82.0 [facility] Comment on above: Performed By: #### L [id number] ####Aquatic Ecologist: FREEMAN DOUGHERTY ([id number])[facility]RE[facility] ([facility])[address] [place] [address] NRBC 0.0 /100 WBCs Normal 0.0-2.0 [facility] Comment on above: Performed By: #### L [id number] ####Aquatic Ecologist: FREEMAN DOUGHERTY ([id number])[facility] ([facility])[address] Platelet mean volume (Bld) [Entitic vol] 10.6 fL Normal 9.0-12.7 [facility] Comment on above: Performed By: #### L [id number] ####Aquatic Ecologist: FREEMAN DOUGHERTY ([id number])[facility] ([facility])[address] [place] [address] Platelets (Bld) [#/Vol] 282 10*3/uL Normal 140-440 [facility] Comment on above: Performed By: #### L [id number] ####Aquatic Ecologist: FREEMAN DOUGHERTY ([id number])[facility] ([facility])[address] [place] [address] RBC (Bld) [#/Vol] 4.39 10*6/uL Normal 3.80-5.20 [facility] Comment on above: Performed By: #### L [id number] ####Aquatic Ecologist: FREEMAN DOUGHERTY ([id number])[facility] ([facility])[address] [place] [address] WBC (Bld) [#/Vol] 10.5 10*3/uL Normal 3.6-10.7 [facility] Comment on above: Performed By: #### L [id number] ####Aquatic Ecologist: FREEMAN DOUGHERTY ([id number])[facility] ([facility])[address] [place] [address] CBC-Complete Blood Cnt No Di ffon 11-14-2024 HCT Normal 37-47 [facility] Comment on above: Order Comment: 303.2 Result Comment: [facility] Performed By: #### M , .2010 #### [facility] [address] [place], [address] HGB Normal 12.0-15.0 [facility] Comment on above: Order Comment: 303.2 Result Comment: [facility] Performed By: #### M , #### [facility] [address] [place], [address] MCH Normal 27.0-32.0 [facility] Comment on above: Order Comment: 303.2 Result Comment: [facility] Performed By: #### M , #### [facility] [address] [place], [address] MCHC Normal 32-36 [facility] Comment on above: Order Comment: 303.2 Result Comment: [facility] Performed By: #### M , #### [facility] [address] [place], [address] MCV Normal 81-99 [facility] Comment on above: Order Comment: 303.2 Result Comment: [facility] Performed By: #### M , L4 #### [facility] [address] [place] [place], [address] PLT Normal 150-450 [facility] Comment on above: Order Comment: 303.2 Result Comment: [facility] Performed By: #### M , L4 #### [facility] [address] [place], [address] RBC Normal 4.2-5.4 [facility] Comment on above: Order Comment: 303.2 Result Comment: [facility] Performed By: #### M , L4 #### [facility] [address] [place], [address] RDW CV Normal 11.6-14.6 [facility] Comment on above: Order Comment: 303.2 Result Comment: [facility] Performed By: #### M 100.2200, L400.2010 #### [facility] [address] [place], [address] RDW SD Normal 35.1-43.9 [facility] Comment on above: Order Comment: 303.2 Result Comment: [facility] Performed By: #### M 100.2200, L4.2010 #### [facility] [address] [place], [address] WBC Normal 4.4-11.0 [facility] Comment on above: Order Comment: 303.2 Result Comment: [facility] Performed By: #### M 100.2199, .2010 #### [facility] [address] [place], [address] Consulton 11-14-2024 Consult Vancomycin therapy h as been discontinued by Dr. Franz on 11-14-24. Thank you for the consult. Pharmacy signing off for vancomycin dosing. Leandra Cordero [facility], Date: 11/14/24 Time: 11:22 AM Normal [facility] Consult Palliative Care Initial Consult Chief Complaint: Carline Villarreal is a 78 y.o. female with chief complaint of SOB Palliative care consulted for goals of care Palliative Care is actively following. Assessment/Plan Goals of care Carline Villarreal lacks capacity for medical decision-making due to dementia and encephalopathy. -legal surrogate decision maker is son, Rosas Villarreal (Phone: [phone]) - met with patient this afternoon, patient was restless, was trying to get out of bed - unable to have meaningful conversation with patient today - called and left HIPAA complaint message for ethan Gautam - patient already has DNRCCA established - discussed with primary team attending Dr. Franz, bedside RN - will continue to have ongoing goals of care conversations with patient, family Acute hypoxic/hypercapnic respiratory failure - per Dr. Knapp's notes from 11/13 suspect presentation largely related to cardiogenic pulmonary edema with underlying undiagnosed GABRIELE/OHS, initial VBG concerning for acute CO2 retention, r Acute on chronic HFpEF - patient volume overloaded, on lasix 40 mg IV BID - cardiology on case, recommending palliative care consult Atrial Fibrillation - nonsustained, 2 episodes, asymptomatic - patient is not a candidate for OAC - on metoprolol 50 mg po BID - per cardiology notes she is not a candidate for invasive evaluation and management due to significant underlying dementia/debility Dementia - Geriatrics has been consulted - patient restless when seen, notified Dr. Franz primary team attending Stroke with left hemiparesis - PT, OT has been consulted Palliative Care Encounter -Code Status: DNR-CCA - will continue to follow for ongoing monitoring of progression of Dyspnea, Pain, and Constipation as well as for appropriateness for hospice care due to Respiratory Failure and Dementia - will continue to evaluate test results related to Respiratory Failure and Dementia, medication effectiveness for Dyspnea, Pain, and Constipation, response to treatment of Respiratory Failure, Stroke, and Dementia PC Time Stamp: Total of 85 minutes spent on this encounter including Chart review, Patient visit and exam, Documentation in EHR, Care coordination, and Communicating with primary attending or other consultants. Discharge planning: Not ready for discharge due to ongoing goals of care discussion Patient meets criteria for general inpatient hospice care: No Palliative Care IDT members involved: None Discussed the plan of care with the other interdisciplinary team (IDT) members of the Palliative Care and Hospice teams and Primary Attending and Floor Nurse. Subjective: Subjective/Events Carline Villarreal is a 78 y.o. female from SNF with PMHx of HFpEF, DM 2, Stroke with left hemiparesis, hypertension who was admitted to [facility] on 11/13 for SOB. Patient reportedly had saturation of 76 % on RA at SNF. When EMS first arrived, she was placed on BIPAP during transport to ED. Patient was started on IV antibiotics for pneumonia. Palliative care consulted for goals of care. Pain Assessment Unable due to Encephalopathy Palliative Care Assessments: Goals of care: To Be Determined Advanced Directives: Health Care Power of Employee Benefits Coordinator, DNR Functional Assessment: PPS 30% bedbound; can't do any work/extensive disease; total care; reduced intake; full or drowsy or confusion Prognosis: depends upon goals of care Spiritual Assessment: No spiritual distress identified Bereavement and Grief: To Be Determined PDMP/OARRS Reviewed: No Report Available Social history: Marital status: single Children: Unknown Living status: group home Work history: Retired status: No Shinto david: Adventist ROS: See palliative care ROS/ESAS below; Detail ROS unable to be obtained due to patient's mental status Neavitt Symptom Assessment Score Ne[place] Score Pain Score (if non-verbal, add .FLACC below) 0 Tiredness Score 6 Nausea Score 0 Depression Score 0 Anxiety Score 6 Drowsiness Score 3 Anorexia Score (0= eating well, 10= not eating) 8 Wellbeing Score (10= worst sense of well-being) 8 Constipation 0 Dyspnea Score (0= no shortness of breath) 0 Family Meeting: Participants: none held Family meeting was held to discuss:N/A Medical History[1] Surgical History[2] Family History[3] Unable to obtain family history due to altered mental status Allergies[4] Objective: BP 134/82 (BP Location: Right arm, Patient Position: Lying) Pulse 95 Temp 36.5 ?C (97.7 ?F) (Temporal) Resp 17 Ht 5' 5 (1.651 m) Wt 210 lb (95.3 kg) SpO2 98% BMI 34.95 kg/m? Physical Exam Constitutional: Appearance: She is ill-appearing. HENT: Head: Normocephalic and atraumatic. Right Ear: External ear normal. Left Ear: External ear normal. Nose: Nose normal. Mouth/Throat: Mouth: Mucous membranes are moist. Eyes: General: No scleral icterus. Right eye: No discharge (more content not included)... Normal [facility] Consult [facility] Consult Note Reason for Consult/Chief Complaint: Heart failure, elevated troponin Consulting MD: Dr. Franz History of Present Illness: Carline Villarreal is a 78 y.o. female with significant dementia baseline AO x1, lives in SNF, admitted for shortness of breath secondary to heart failure. Started on lasix diuresis and today she reports significant improvement in her breathing, on room air. ECG sinus rhythm. Telemetry sinus rhythm, with nonsustained episodes of AF asymptomatic. CXR congestion. Troponin 12-->124. NT pro BNP 6596. She reports no chest pain, SOB is much less, she reports close to baseline. No palpitations, dizziness or syncope. TTE last year had normal LVEF 65%, moderate AR, mildly dilated aorta and trivial pericardial effusion. Past Medical History: Medical History[1] Past Surgical History: Surgical History[2] Family History: Family History[3] Social History: Social History[4] Medications: Scheduled Meds[5] Allergies: Patient has no known allergies. Reviewed Review of Systems: All other systems were reviewed and are negative other than as noted in the HPI. Physical Examination: Vitals: Blood pressure 134/82, pulse 95, temperature 36.5 ?C (97.7 ?F), temperature source Temporal, resp. rate 17, height 5' 5 (1.651 m), weight 210 lb (95.3 kg), SpO2 98%. Intake/Output Summary (Last 24 hours) at 11/14/2024 0916 Last data filed at 11/14/2024 0535 Gross per 24 hour Intake 100 ml Output 601 ml Net -501 ml Wt Readings from Last 3 Encounters: 11/14/24 210 lb (95.3 kg) 12/17/23 205 lb (93 kg) AO x 1 Neck: no JVD. Respiratory: Lungs are clear. No rales or wheezes. Respiratory effort is normal and symmetrical bilaterally; Good air movement bilaterally. Heart: RRR; Normal S1 and S2. no murmur; No rub; no gallop. Extremities/Skin: no LE edema; Skin warm to touch and well perfused Laboratory Tests: Results from last 7 days Lab Units 11/14/24 0044 11/13/24 1532 11/13/24 1056 WBC AUTO 10*3/uL 10.5 -- 10.5 HEMOGLOBIN g/dL 13.9 -- 14.0 HEMOGLOBIN BG g/dl -- 14.7 14.5 HEMATOCRIT % 40.5 -- 42.0 MCV fL 92.3 -- 95.0 PLATELETS 10*3/uL 282 -- 261 Lab Results Component Value Date GLUCOSE 248 (H) 11/14/2024 CALCIUM 9.6 11/14/2024 NA 139 11/14/2024 K 3.6 11/14/2024 CO2 21 (L) 11/14/2024 CL 105 11/14/2024 BUN 32 (H) 11/14/2024 CREATININE 1.37 (H) 11/14/2024 Lab Results Component Value Date HGBA1C 5.0 12/17/2023 No results found for: TSH Lab Results Component Value Date CHOL 114 12/17/2023 Lab Results Component Value Date HDL 38 (L) 12/17/2023 Lab Results Component Value Date LDLCALC 58 12/17/2023 Lab Results Component Value Date TRIG 92 12/17/2023 Lab Results Component Value Date TROPONINI <0.012 12/16/2023 Assessment/Plan HFpEF: perfused, volume overloaded with uncontrolled HTN. -continue lasix 40 mg IV bid today, switch to po hydrochlorothiazide 25 mg daily tomorrow -monitor I/O, BMP electrolytes -start spironolactone 25 mg daily -stop clonidine and avoid CCB HTN: uncontrolled -continue with lasix diuresis and switch to PO hydrochlorothiazide 25 mg daily tomorrow -start spironolactone 25 mg daily AF: nonsustained, 2 episodes, asymptomatic. Not a candidate for OAC. -continue rate control with metoprolol 50 mg bid, can be increased to 100 mg bid if needed for rate control if more sustained tachycardia is noticed Recommend conservative management of above, she is not a candidate for invasive evaluation and management due to significant underlying dementia/debility. Consider palliative assessment. I stopped atorvastatin to limit polypharmacy. Hammad Hinton MD, [facility], [facility] DATE of SERVICE: 11/14/2024 [1] Past Medical History: Diagnosis Date Diabetes mellitus (HCC) Hypertension Stroke (HCC) [2] No past surgical history on file. [3] No family history on file. [4] Social History Tobacco Use Smoking status: Some Days Types: Cigarettes Substance Use Topics Alcohol use: Not Currently Drug use: Not Currently [5] atorvastatin, 40 mg, Oral, Nightly busPIRone, 2.5 mg, Oral, BID cloNIDine, 0.2 mg, Oral, TID DULoxetine, 30 mg, Oral, Daily enoxaparin, 40 mg, SubCUTAneous, Daily famotidine, 20 mg, Oral, Daily gabapentin, 300 mg, Oral, BID insulin lispro, 0-12 Units, SubCUTAneous, TID WC And insulin lispro, 0-12 Units, SubCUTAneous, Nightly levothyroxine, 50 mcg, Oral, qAM AC melatonin, 3 mg, Oral, Nightly melatonin, 3 mg, Oral, Nightly metoprolol tartrate, 50 mg, Oral, BID piperacillin-tazobacta m, 4,500 mg, IntraVENous, q6h vancomycin, 1,000 mg, IntraVENous, q24h [facility] Consult [facility], Pulmonary Medicine [address] [place] [id number] Patient - Carline Villarreal - 1945 Date of Admission - 11/13/2024 10:39 AM Date of evaluation - 11/14/2024 Room - [facility] Day - 1 Consulting - Dominguez Franz MD Primary Care Physician - Evi Guevara [facility] Problem List Problem List[1] Reason for Consult Hypoxic hypercapnic respiratory failure congestive heart failure probable OHS History of Present Illness Carline Villarreal is a 78 y.o. female admitted for Shortness of breath noted to be in acute hypoxic hypercapnic respiratory failure decompensated congestive heart failure Patient does have a history of dementia as per chart group home resident, diabetes mellitus hypertension stroke Admitted with above complaint Initial VBG did show pH 7.229 pCO2 of 55 pO2 of 32 Patient received IV Lasix diuresed well placed on NIV Follow-up VBG showed pH 7.74 pCO2 of 30 and PO2 of 47 EKG showed T inversion ST ST depression elevated troponin This morning apparently has episode of tachyarrhythmia as per cardiology atrial fibrillation Her saturation was 97 percentile feeling much better this morning however she is not a good historian Currently she was on room air saturation was 97 percentile Never smoked Not on PAP therapy at home Apparently came from [facility] years ago Chest x-ray reviewed interpreted by me Vascular congestion with a small bilateral pleural effusion Medical History Past Medical History Medical History[2] Reviewed Hypertension diabetes mellitus Hypothyroidism Past Surgical History Surgical History[3] Reviewed Social History Social History Socioeconomic History Marital status: Spouse name: Not on file Number of children: Not on file Years of education: Not on file Highest education level: Not on file Occupational History Not on file Tobacco Use Smoking status: Some Days Types: Cigarettes Smokeless tobacco: Not on file Substance and Sexual Activity Alcohol use: Not Currently Drug use: Not Currently Sexual activity: Not on file Other Topics Concern Not on file Social History Narrative Not on file Social Drivers of Health Financial Resource Strain: Not on file Food Insecurity: Patient Unable To Answer (12/16/2023) Hunger Vital Sign Worried About Running Out of Food in the Last Year: Patient unable to answer Ran Out of Food in the Last Year: Patient unable to answer Transportation Needs: Patient Unable To Answer (12/16/2023) PRAPARE - Transportation Lack of Transportation (Medical): Patient unable to answer Lack of Transportation (Non-Medical): Patient unable to answer Physical Activity: Not on file Stress: Not on file Social Connections: Not on file Intimate Partner Violence: Patient Unable To Answer (12/16/2023) Humiliation, Afraid, Rape, and Kick questionnaire Fear of Current or Ex-Partner: Patient unable to answer Emotionally Abused: Patient unable to answer Physically Abused: Patient unable to answer Sexually Abused: Patient unable to answer Housing Stability: Patient Unable To Answer (12/16/2023) Housing Stability Vital Sign Unable to Pay for Housing in the Last Year: Patient unable to answer Number of Places Lived in the Last Year: 1 Unstable Housing in the Last Year: Patient unable to answer Family History Family History[4] Reviewed Immunization History Reviewed Medications Current Medications Scheduled Meds[5] PRN Mediations PRN Meds[6] IV Drips/Infusions Continuous Meds[7] Home Medications Current Outpatient Medications Medication Instructions acetaminophen (TYLENOL) 650 mg, Oral, Every 6 hours PRN aluminum-magnesium hydroxide-simethicone (Maalox MAX) 400-400-40 MG/5ML suspension 10 mL, Oral, Every 4 hours PRN atorvastatin (LIPITOR) 40 mg, Oral, Daily bisacodyl (DULCOLAX) 5 mg, Oral, Daily PRN, Do not crush, chew, or split. bisacodyl (DULCOLAX) 5 mg, Oral, Daily PRN, Do not crush, chew, or split. busPIRone (BUSPAR) 2.5 mg, Oral, 2 times daily cloNIDine (CATAPRES) 0.2 mg, Oral, 2 times daily clopidogrel (PLAVIX) 75 mg, Oral, Daily DULoxetine (CYMBALTA) 30 mg, Oral, Daily, Do not crush or chew. escitalopram (LEXAPRO) 10 mg, Oral, Daily famotidine (PEPCID) 20 mg, Oral, Daily gabapentin (NEURONTIN) 300 mg, Oral, 2 times daily hydrALAZINE (APRESOLINE) 25 mg, Oral, Every 8 hours PRN ibuprofen 400 mg, Oral, Every 6 hours, Give adequate fluid and food with medication to minimize GI irritation levothyroxine (SYNTHROID, LEVOXYL) 50 mcg, Oral, Daily before breakfast lisinopril 5 mg, Oral, Daily magnesium hydroxide (Milk of Magnesia) 400 MG/5ML suspension 30 mL, Oral, Daily PRN, If no bm in 3 days melatonin 3 mg, Oral, Nightly metoprolol tartrate (LOPRESSOR) 50 mg, Oral, 2 times daily, Hold for SBP<100, HR <55 oxyCODONE-acetaminophe n (Percocet) 5-325 MG tablet 1 (more content not included)... Normal [facility] HEMOGLOBIN A1Con 11-14-2024 Glucose [Mass/Vol] 111 mg/dL Normal [facility] Comment on above: Result Comment: SUKH Smith COMMENTS: If not done within the last 3 mos HbA1c values of 5.7-6.4 percent indicate an increased risk for developing diabetes mellitus. HbA1c values greater than or equal to 6.5 percent are diagnostic of diabetes mellitus. For diagnosis of diabetes in individuals without unequivocal hyperglycemia, results should be confirmed by repeat testing. Performed By: #### L AB90 ####Aquatic Ecologist: FREEMAN DOUGHERTY ([id number])[facility] ([facility])[address] [place] [address] HEMOGLOBIN A1C 5.5 %HbA1C Normal <5.7 [facility] Comment on above: Result Comment: Norm al less than 5.7% Prediabetes 5.7% to 6.4% Diabetes 6.5% or higher --HgbA1C levels may not be accurate in patients who have renal disease, received recent blood transfusions, are anemic, or who have dyshemoglobinemia. Performed By: #### L AB90 ####Aquatic Ecologist: FREEMAN DOUGHERTY ([id number])[facility] ([facility])[address] [place] [address] Laboratory - Chemistry and C hemistry - challengeon 11-14-2024 Glucose [Mass/Vol] 165 mg/dL High 70 - 100 mg/dL [facility] Glucose [Mass/Vol] 171 mg/dL High 70 - 100 mg/dL [facility] Average glucose Estimated from glycated hemoglobin (Bld) [Mass/Vol] 111 mg/dL [facility] Glucose [Mass/Vol] 231 mg/dL High 70 - 100 mg/dL [facility] Glucose [Mass/Vol] 175 mg/dL High 70 - 100 mg/dL [facility] Laboratory - Drug toxicology on 11-14-2024 Vancomycin trough [Mass/Vol] 16.8 ug/mL [facility] Laboratory - Hematology and Cell countson 11-14-2024 HbA1c (Bld) [Mass fraction] 5.5 % NINF [facility] No Panel Informationon 11-14 Interpretation and review of laboratory results Abnormal [facility] Interpretation and review of laboratory results Abnormal [facility] Interpretation and review of laboratory results Abnormal [facility] Interpretation and review of laboratory results Abnormal [facility] Nursing Noteon 11-14-[address] Nogueira as follows: Patient blood pressure at 19:52 179/89, medicated as prescribed. Reassessed blood pressure at 22:38 177/98. Please evaluate and let me know if you would like to give her another antihypertensive medication. Patient currently resting. Thank you! Normal [facility] Nursing Note Epic chat as follows to Dr. Nogueira: Hello! Patient is a DNR CCA on telemetry? Patient verbalizes Take this off clearly pulling off leads every 5 minutes. Refusing to wear. Please consider and evaluate discontinuing telemetry order. Thank you! PT currently Alert to self and time, confused on place. Normal [facility] Nursing Note Epic chat as follows to Dr. Nogueira: Good Evening! I see two separate orders for melatonin for this patient. Please verify if both are to be given, total of 6 mg oral melatonin. Thank you! Normal [facility] Nursing Note Tele alarm for HR in to the 180's. Checked radial pulse 92, and again 86. Leads replaced. Pt HR on monitor now 89. Pt in no distress. No c/o CP, or SOB. Normal [facility] Progress Noteon 05-13-2025 Progress Note PHYSICAL THERAPY [facility] Name/MRN: Carline Villarreal ([id number]) Date: 11/14/2024 PT orders received. Chart reviewed. Pt currently with nursing and unavailable for PT session. Will re-attempt as pt appropriate and schedule permits. Justina Doyle, PT Normal [facility] US Heart TransthoracicOrdere d By: Nishant Kaur on 11-14-2024 Ao Root Index 1.68 cm/m2 [facility] Work Phone: [phone] Aortic Arch 3.6 cm [facility] Work Phone: [phone] Aortic Root 3.4 cm [facility] [employer] Work Phone: [phone] Aortic Sinus Valsalva 3.4 cm Sum [facility] [employer] Work Phone: [phone] Aortic Sinus Valsalva Index 1.68 cm/m2 [facility] [employer] Phone: [phone] Aortic valve Orifice area by 3.5 cm2 [facility] [employer] Work Phone: [phone] AR Max Velocity PISA 4 m/s [facility] Work Phone: AR PHT 389.9 ms [facility] Work Phone: [phone] Ascending Aorta 3.6 cm [facility] Work Phone: [phone] Ascending Aorta Index 1.78 cm/m2 Sum [facility] Work Phone: Est. RA Pressure 8 mmHg [facility] Work Phone: [phone] Fractional Shortening 2D 37 % 28 - 44 % [facility] [employer] Work Phone: [phone] Interpretation and review of laboratory results Abnormal [facility] Work Phone: IVC Diameter 2.3 cm [facility] [employer] Work Phone: IVSd 1.2 cm Abnormal 0.6 - 0.9 cm [facility] [employer] Work Phone: [phone] LA Diameter 4.1 cm [facility] [employer] Work Phone: [phone] LA Size Index 2.03 cm/m2 [facility] Work Phone: [phone] LA Volume 2C 102 mL Abnormal 22 - 52 mL [facility] [employer] Work Phone: LA Volume 4C 94 mL Abnormal 22 - 52 mL [facility] Work Phone: LA Volume A/L 104 mL [facility] Work Phone: LA Volume BP 98 mL Abnormal 22 - 52 mL [facility] Work Phone: LA Volume Index 2C 50 mL/m2 Abnormal 16 - 34 mL/m2 [facility] Work Phone: LA Volume Index 4C 47 mL/m2 Abnormal 16 - 34 mL/m2 [facility] Work Phone: LA Volume Index A/L 51 mL/m2 16 - 34 mL/m2 [facility] Work Phone: LA Volume Index BP 49 ml/m2 Abnormal 16 - 34 ml/m2 [facility] Work Phone: LA/AO Root Ratio 1.21 [facility] Work Phone: Left ventricular Ejection fraction by US.2D+Calculated by biplane method of disks 35 % Abnormal 55 - 100 % [facility] Work Phone: LV EDV A2C 111 mL [facility] Work Phone: LV EDV A4C 94 mL [facility] Work Phone: LV EDV BP 104 mL 56 - 104 mL [facility] Work Phone: LV EDV Index A2C 55 mL/m2 [facility] Work Phone: LV EDV Index A4C 47 mL/m2 [facility] Work Phone: LV EDV Index BP 51 mL/m2 [facility] Work Phone: LV Ejection Fraction A2C 39 % [facility] Work Phone: LV Ejection Fraction A4C 28 % [facility] Work Phone: LV ESV A2C 68 mL [facility] Work Phone: LV ESV A4C 67 mL [facility] Work Phone: LV ESV BP 68 mL Abnormal 19 - 49 mL [facility] Work Phone: LV ESV Index A2C 34 mL/m2 [facility] Work Phone: [phone] LV ESV Index A4C 33 mL/m2 [facility] Work Phone: [phone] LV ESV Index BP 34 mL/m2 [facility] Work Phone: [phone] LV Mass 2D 171.7 g Abnormal 67 - 162 g [facility] [employer] Work Phone: [phone] LV Mass 2D Index 85 g/m2 43 - 95 g/m2 [facility] [employer] Work Phone: [phone] LV RWT Ratio 0.59 [facility] [employer] Work Phone: [phone] LVIDd 4.1 cm 3.9 - 5.3 cm [facility] [employer] Work Phone: [phone] LVIDd Index 2.03 cm/m2 [facility] [employer] Work Phone: LVIDs 2.6 cm [facility] [employer] Work Phone: LVIDs Index 1.29 cm/m2 [facility] [employer] Work [phone] LVOT Cardiac Output 6.6 liter/mi nut e [facility] [employer] Work Phone: [phone] LVOT Diameter 2.1 cm [facility] [employer] Work Phone: LVOT Mean Gradient 2 mmHg [facility] [employer] Phone: LVOT Peak Gradient 4 mmHg [facility] [employer] Work Phone: LVOT Peak Velocity 0.9 m/s [facility] [employer] Work [phone] LVOT Stroke Volume Index 35.1 mL/m2 [facility] [employer] Work Phone: [phone] LVOT SV 71 ml [facility] [employer] Work Phone: [phone] LVOT VTI 20.5 cm [facility] [employer] Work Phone: [phone] LVPWd 1.2 cm Abnormal 0.6 - 0.9 cm [facility] [employer] Work Phone: MV A Velocity 0.53 m/s [facility] Work Phone: MV E Velocity 0.52 m/s [facility] [employer] Work Phone: [phone] MV E Wave Deceleration Time 165.6 ms [facility] Work Phone: [phone] MV E/A 0.98 [facility] Work Phone: RA Area 4C 32.2 mL [facility] Work Phone: [phone] RA Area 4C 30.6 mL [facility] Work Phone: [phone] RV Basal Dimension 3.4 cm [facility] Work Phone: [phone] RV Free Wall Peak S' 7 cm/s [facility] Work Phone: [phone] RV Mid Dimension 2.5 cm [facility] Work Phone: [phone] RVSP 53 mmHg [facility] Work Phone: [phone] Sinotubular Junction 3.1 cm [facility] Work Phone: [phone] TAPSE 1.8 cm 1.7 cm [facility] Work Phone: [phone] TR Max Velocity 3.36 m/s [facility] Work Phone: TR Peak Gradient 45 mmHg [facility] Work Phone: [phone] TR Peak Velocity PISA 2.2 m/s [facility] Work Phone: TR VTI 66.3 cm [facility] Work Phone: [phone] TV EROA 0.4 cm2 [facility] Work Phone: [phone] TV Nyquist Velocity 36 cm/s [facility] Work Phone: [phone] [facility] Work Phone: US Heart Transthoracicon CV CPACS VANCOMYCIN, AUC TIMED DOSING on 11-14-2024 VANCOMYCIN, AUC 16.8 ug/mL Normal [facility] Comment on above: Result Comment: SUKH Smith COMMENTS: Please draw random level at least >2 hours after the end of the last vancomycin infusion, or 30-minutes before next infusion. Toxicity is seen at concentrations >80-100 ug/mL Therapeutic (Peak) range: 20-40 Therapeutic (Trough) range: 5-10 Performed By: #### L AB39 ####Aquatic Ecologist: FREEMAN DOUGHERTY ([phone])[facility] ([facility])[address] [place] [address] Vancomycin trough [Mass/Vol] on 11-14-2024 [facility] 30on 11-13-2024 30 Problem: Knowledge Deficit Goal: Patient/family/caregiv er demonstrates understanding of disease process, treatment plan, medications, and discharge instructions Outcome: Not Progressing Problem: Urinary Incontinence Goal: Perineal skin integrity is maintained or improved Outcome: Not Progressing Problem: Knowledge Deficit Goal: Patient/family/caregiv er demonstrates understanding of disease process, treatment plan, medications, and discharge instructions Outcome: Not Progressing Problem: Urinary Incontinence Goal: Perineal skin integrity is maintained or improved Outcome: Not Progressing Normal [facility] BLOOD CULTUREon 11-13-2024 Bacteria identified Cx Nom (Bld) BLOOD CULTURE Reference No growth at 5 days ORDER COMMENTS: Blood Collection Site: Right Hand [ S = SUSCEPTIBLE R = RESISTANT I = INTERMEDIATE S-DD = Susceptible-dose dependent NS = Non-susceptible NO = No Interpretation ] Normal [facility] Comment on above: Performed By: #### L [id number] ####Aquatic Ecologist: LOLY BUI ([id number])[facility] ([facility])[address] [place] [address] Bacteria identified Cx Nom (Bld) BLOOD CULTURE Reference No growth at 5 days ORDER COMMENTS: Blood Collection Site: Left Arm [ S = SUSCEPTIBLE R = RESISTANT I = INTERMEDIATE S-DD = Susceptible-dose dependent NS = Non-susceptible NO = No Interpretation ] Normal [facility] Comment on above: Performed By: #### L [id number] ####Aquatic Ecologist: LOLY BUI ([id number])[facility] [place] [address] BLOOD GAS, VENOUSon 11-14-19 25 AMOUNT OF OXYGEN Normal [facility] Comment on above: Result Comment: SUKH R COMMENTS: Assessment of oxygenation is best done with an arterial blood gas determination. Reference ranges for pO2, bicarbonate, and base excess are for mixed venous blood. Specimens drawn from a peripheral vein will often have higher values. Performed By: #### L AB79 ####Aquatic Ecologist: FREEMAN DOUGHERTY ([phone])[facility] ([facility])[address] Base excess Calc (BldV) [Moles/Vol] -4.7000 mmol/L Low -3.0-3.0 [facility] Comment on above: Performed By: #### L AB79 ####Aquatic Ecologist: FREEMAN DOUGHERTY ([id number])[facility] [place] ([facility])[address] [place] [address] [place] CO2 [Moles/Vol] 19.8 mmol/L Low 23.0-30.[address] [facility] Comment on above: Performed By: #### L AB79 ####Aquatic Ecologist: FREEMAN DOUGHERTY ([id number])[facility] [place] ([facility])[address] HCO3 (Bld) [Moles/Vol] 18.8 mmol/L Low 21.0-30.0 [facility] Comment on above: Performed By: #### L AB79 ####Aquatic Ecologist: FREEMAN DOUGHERTY ([phone])[facility] [place] ([facility])[address] Hemoglobin (Bld) [Mass/Vol] 14.7 g/dL Normal Screen only [facility] Comment on above: Performed By: #### L AB79 ####Aquatic Ecologist: FREEMAN DOUGHERTY ([id number])[facility] [place] ([facility])[address] [place] [address] [place] OXYGEN (MM HG) IN VENOUS BLOOD 47.3 mm Hg Normal [facility] Comment on above: Performed By: #### L AB79 ####Aquatic Ecologist: FREEMAN DOUGHERTY ([id number])[facility] [place] ([facility])[address] OXYGEN SATURATION (%) IN VENOUS BLOOD 84.2 % Normal [facility] Comment on above: Performed By: #### L AB79 ####Aquatic Ecologist: FREEMAN DOUGHERTY ([id number])[facility] ([facility])[address] PCO2, SWATI 30.8 mm Hg Low 35.0-53.0 [facility] Comment on above: Performed By: #### L AB79 ####Aquatic Ecologist: FREEMAN DOUGHERTY ([phone])[facility] ([facility])[address] PH VENOUS 7.404 Normal 7.320-7.420 [facility] Comment on above: Performed By: #### L AB79 ####Aquatic Ecologist: FREEMAN SUAREZMAYRA ([id number])[facility] ([facility])[address] SOURCE OF OXYGEN Nasal Cannula (LPM) Normal [facility] Comment on above: Performed By: #### L AB79 ####Aquatic Ecologist: FREEMAN MURPHYMICHAEL ([phone])[facility] (HLAB)[address] AMOUNT OF OXYGEN Normal [facility] Comment on above: Result Comment: SUKH Smith COMMENTS: Assessment of oxygenation is best done with an arterial blood gas determination. Reference ranges for pO2, bicarbonate, and base excess are for mixed venous blood. Specimens drawn from a peripheral vein will often have higher values. Performed By: #### L AB79 ####Aquatic Ecologist: FREEMAN DOUGHERTY ([phone])[facility] ([facility])[address] Base excess Calc (BldV) [Moles/Vol] -5.5000 mmol/L Low -3.0-3.0 [facility] Comment on above: Performed By: #### L AB79 ####Aquatic Ecologist: FREEMAN DOUGHERTY ([phone])[facility] ([facility])[address] CO2 [Moles/Vol] 24.5 mmol/L Normal 23.0-30.0 [facility] Comment on above: Performed By: #### L AB79 ####Aquatic Ecologist: FREEMAN DOUGHERTY ([id number])[facility] [place] ([facility])[address] HCO3 (Bld) [Moles/Vol] 22.8 mmol/L Normal 21.0-30.0 S [facility] Comment on above: Performed By: #### L AB79 ####Aquatic Ecologist: FREEMAN DOUGHERTY ([phone])[facility] ([facility])[address] Hemoglobin (Bld) [Mass/Vol] 14.5 g/dL Normal Screen only [facility] Comment on above: Performed By: #### L AB79 ####Aquatic Ecologist: FREEMAN DOUGHERTY ([id number])[facility] ([facility])[address] OXYGEN (MM HG) IN VENOUS BLOOD 32.9 mm Hg Normal [facility] Comment on above: Performed By: #### L AB79 ####Aquatic Ecologist: FREEMAN DOUGHERTY ([id number])[facility] [place] ([facility])[address] OXYGEN SATURATION (%) IN VENOUS BLOOD 55.4 % Normal [facility] Comment on above: Performed By: #### L AB79 ####Aquatic Ecologist: FREEMAN DOUGHERTY ([id number])[facility] ([facility])[address] PCO2, SWATI 55.8 mm Hg High 35.0-53.0 [facility] Comment on above: Performed By: #### L AB79 ####Aquatic Ecologist: FREEMAN DOUGHERTY ([phone])[facility] ([facility])[address] PH VENOUS 7.229 Low 7.320-7.420 [facility] Comment on above: Performed By: #### L AB79 ####Aquatic Ecologist: FREEMAN DOUGHERTY ([phone])[facility] ([facility])[address] SOURCE OF OXYGEN Nasal Cannula (LPM) Normal [facility] Comment on above: Performed By: #### L AB79 ####Aquatic Ecologist: FREEMAN DOUGHERTY ([phone])[facility] ([facility])[address] [place] [address] CBC W Auto Differential pane l (Bld)on 11-13-2024 Basophils (Bld) [#/Vol] 0.1 10*3/uL 0.0 - 0.2 10*3/uL [facility] Basophils/100 WBC (Bld) 0.5 % 0.0 - 2.0 % [facility] Eosinophils (Bld) [#/Vol] 0.6 10*3/uL High 0.0 - 0.5 10*3/uL [facility] Eosinophils/100 WBC (Bld) 5.8 % 0.0 - 6.0 % [facility] Erythrocyte distribution width (RBC) [Ratio] 13.7 % 11.5 - 15.0 % [facility] Hematocrit (Bld) [Volume fraction] 42 % 35.0 - 47.0 % [facility] Hemoglobin (Bld) [Mass/Vol] 14 g/dL 11.7 - 16.0 g/dL [facility] Immature granulocytes (Bld) [#/Vol] 0.1 10*3/uL High NINF - 0.1 10*3/uL [facility] Immature granulocytes/100 WBC (Bld) 0.6 % 0.0 - 2.0 % [facility] Interpretation and review of laboratory results Abnormal [facility] Lymphocytes (Bld) [#/Vol] 1.8 10*3/uL 1.0 - 4.3 10*3/uL [facility] Lymphocytes/100 WBC (Bld) 17.4 % 15.0 - 45.0 % [facility] MCH (RBC) [Entitic mass] 31.7 pg 26.0 - 34.0 pg [facility] MCHC (RBC) [Mass/Vol] 33.3 % 30.5 - 36.0 % [facility] MCV (RBC) [Entitic vol] 95 fL 77.0 - 99.0 fL [facility] Monocytes (Bld) [#/Vol] 0.5 10*3/uL 0.0 - 0.9 10*3/uL [facility] Monocytes/100 WBC (Bld) 5.2 % 5.0 - 13.0 % [facility] Neutrophils (Bld) [#/Vol] 7.4 10*3/uL 1.8 - 7.5 10*3/uL [facility] Neutrophils/100 WBC (Bld) 70.5 % 38.0 - 82.0 % [facility] Nucleated RBC/100 WBC (Bld) [Ratio] 0 % [facility] Platelet mean volume (Bld) [Entitic vol] 10.4 fL 9.0 - 12.7 fL [facility] Platelets (Bld) [#/Vol] 261 10*3/uL 140 - 440 10*3/uL [facility] RBC (Bld) [#/Vol] 4.42 10*6/uL 3.80 - 5.2 0 10*6/uL [facility] WBC (Bld) [#/Vol] 10.5 10*3/uL 3.6 - 10.7 10*3/uL [facility] CBC WITH AUTO DIFFERENTIALon 11-13-2024 Basophils (Bld) [#/Vol] 0.1 10*3/uL Normal 0.0-0.2 [facility] Comment on above: Performed By: #### L [id number] ####Aquatic Ecologist: FREEMAN DOUGHERTY ([id number])[facility] ([facility])[address] [place] [address] Basophils/100 WBC (Bld) 0.5 % Normal 0.0-2.0 S [facility] Comment on above: Performed By: #### L [id number] ####Aquatic Ecologist: FREEMAN DOUGHERTY ([id number])[facility] ([facility])[address] [place] [address] [place] Eosinophils (Bld) [#/Vol] 0.6 10*3/uL High 0.0-0.5 [facility] Comment on above: Performed By: #### L [id number] ####Aquatic Ecologist: FREEMAN DOUGHERTY ([id number])[facility] ([facility])[address] [place] [address] [place] Eosinophils/100 WBC (Bld) 5.8 % Normal 0.0-6.0 [facility] Comment on above: Performed By: #### L [id number] ####Aquatic Ecologist: FREEMAN MURPHYMICHAEL ([id number])[facility] Erythrocyte distribution width (RBC) [Ratio] 13.7 % Normal 11.5-15.0 [facility] Comment on above: Performed By: #### L [id number] ####Aquatic Ecologist: FREEMAN MURPHYMICHAEL ([id number])[facility] ([facility] Hematocrit (Bld) [Volume fraction] 42.0 % Normal 35.0-47.0 [facility] Comment on above: Performed By: #### L [id number] ####Aquatic Ecologist: FREEMAN SUAREZMAYRA ([id number])[facility] ([facility])[address] Hemoglobin (Bld) [Mass/Vol] 14.0 g/dL Normal 11.7-16.0 [facility] Comment on above: Performed By: #### L [id number] ####Aquatic Ecologist: FREEMAN MURPHYMICHAEL ([id number])[facility] ([facility])[address] IMMATURE GRANS % 0.6 % Normal 0.0-2.[address] [facility] Comment on above: Performed By: #### L [id number] ####Aquatic Ecologist: FREEMAN MURPHYMICHAEL ([id number])[facility] ([facility])[address] IMMATURE GRANS ABSOLUTE 0.1 10*3/uL High <0.1 [facility] Comment on above: Performed By: #### L [id number] ####Aquatic Ecologist: FREEMAN MURPHYMICHAEL ([id number])[facility] ([facility])[address] Lymphocytes (Bld) [#/Vol] 1.8 10*3/uL Normal 1.0-4.3 [facility] Comment on above: Performed By: #### L [id number] ####Aquatic Ecologist: FREEMAN DOUGHERTY ([id number])[facility] SERVICESJoe (SBHLAB)[address] Lymphocytes/100 WBC (Bld) 17.4 % Normal 15.0-45.0 [facility] Comment on above: Performed By: #### L [id number] ####Aquatic Ecologist: FREEMAN DOUGHERTY ([id number])[facility] ([facility])[address] MCH (RBC) [Entitic mass] 31.7 pg Normal 26.0-34.0 [facility] Comment on above: Performed By: #### L [id number] ####Aquatic Ecologist: FREEMAN MRUPHYMICHAEL ([id number])[facility] ([facility])[address] [place] [address] MCHC 33.3 % Normal 30.5-36.0 [facility] Comment on above: Performed By: #### L [id number] ####Aquatic Ecologist: FREEMAN DOUGHERTY ([id number])[facility] ([facility])[address] [place] [address] MCV (RBC) [Entitic vol] 95.0 fL Normal 77.0-99.0 [facility] Comment on above: Performed By: #### L [id number] ####Aquatic Ecologist: FREEMAN DOUGHERTY ([id number])[facility] ([facility])[address] [place] [address] Monocytes (Bld) [#/Vol] 0.5 10*3/uL Normal 0.0-0.9 [facility] Comment on above: Performed By: #### L [id number] ####Aquatic Ecologist: FREEMAN DOUGHERTY ([id number])[facility] ([facility])[address] Monocytes/100 WBC (Bld) 5.2 % Normal 5.0-13.0 [facility] Comment on above: Performed By: #### L [id number] ####Aquatic Ecologist: FREEMAN DOUGHERTY ([phone])[facility] [place] ([facility])[address] NEUTROPHILS ABSOLUTE 7.4 10*3/uL Normal 1.8-7.5 [facility] Comment on above: Performed By: #### L [id number] ####Aquatic Ecologist: FREEMAN DOUGHERTY ([id number])[facility] [place] ([facility])[address] Neutrophils/100 WBC (Bld) 70.5 % Normal 38.0-82.0 [facility] Comment on above: Performed By: #### L [id number] ####Aquatic Ecologist: FREEMAN DOUGHERTY ([id number])[facility] ([facility])[address] NRBC 0.0 /100 WBCs Normal 0.0-2.0 [facility] Comment on above: Performed By: #### L [id number] ####Aquatic Ecologist: FREEMAN DOUGHERTY ([id number])[facility] [place] ([facility])[address] Platelet mean volume (Bld) [Entitic vol] 10.4 fL Normal 9.0-12.7 [facility] Comment on above: Performed By: #### L [id number] ####Aquatic Ecologist: FREEMAN DOUGHERTY ([phone])[facility] [place] ([facility])[address] Platelets (Bld) [#/Vol] 261 10*3/uL Normal 140-440 [facility] Comment on above: Performed By: #### L [id number] ####Aquatic Ecologist: FREEMAN DOUGHERTY ([id number])[facility] [place] ([facility])[address] RBC (Bld) [#/Vol] 4.42 10*6/uL Normal 3.80-5.20 [facility] Comment on above: Performed By: #### L [id number] ####Aquatic Ecologist: FREEMAN DOUGHERTY ([id number])[facility] ([facility])[address] WBC (Bld) [#/Vol] 10.5 10*3/uL Normal 3.6-10.7 [facility] Comment on above: Performed By: #### L [id number] ####Aquatic Ecologist: FREEMAN DOUGHERTY ([id number])[facility] ([facility])[address] COMPREHENSIVE METABOLIC PANE Mandeep 11-13-2024 Albumin [Mass/Vol] 3.5 g/dL Normal 3.4-4.8 [facility] Comment on above: Performed By: #### L AB17, [id number], [id number] ####Aquatic Ecologist: FREEMAN DOUGHERTY ([id number])[facility] ([facility])[address] ALP [Catalytic activity/Vol] 101 U/L Normal 40-150 [facility] Comment on above: Performed By: #### L AB17, [id number], [id number] ####Aquatic Ecologist: FREEMAN DOUGHERTY ([id number])[facility] ([facility])[address] ALT [Catalytic activity/Vol] 11 U/L Normal <30 [facility] Comment on above: Performed By: #### L AB17, [id number], [id number] ####Aquatic Ecologist: FREEMAN DOUGHERTY ([id number])[facility] ([facility])[address] Anion gap [Moles/Vol] 16 mmol/L High 3-13 [facility] Comment on above: Performed By: #### L AB17, [id number], [id number] ####Aquatic Ecologist: FREEMAN DOUGHERTY ([id number])[facility] ([facility])[address] AST [Catalytic activity/Vol] 20 U/L Normal <34 [facility] Comment on above: Performed By: #### L AB17, [id number], [id number] ####Aquatic Ecologist: FREEMAN DOUGHERTY ([id number])[facility] ([facility])[address] Bilirubin [Mass/Vol] 0.6 mg/dL Normal <1.2 [facility] Comment on above: Performed By: #### Nicole AB17, [id number], [id number] ####Aquatic Ecologist: FREEMAN DOUGHERTY ([phone])[facility] ([facility])[address] Calcium [Mass/Vol] 9.1 mg/dL Normal 8.8-10.0 [facility] Comment on above: Performed By: #### Nicole PIKE, [id number], [id number] ####Aquatic Ecologist: FREEMAN DOUGHERTY ([phone])[facility] ([facility])[address] Chloride [Moles/Vol] 105 mmol/L Normal 98-107 [facility] Comment on above: Performed By: #### Nicole SINGER17, [id number], [id number] ####Aquatic Ecologist: FREEMAN DOUGHERTY ([id number])[facility] ([facility] [place] [address] [place] CO2 [Moles/Vol] 20 mmol/L Low 23-31 [facility] Comment on above: Performed By: #### L AB17, [id number], [id number] ####Aquatic Ecologist: FREEMAN DOUGHERTY ([id number])[facility] ([facility] [place] [address] [place] Creatinine [Mass/Vol] 1.41 mg/dL High 0.57-1.11 [facility] Comment on above: Performed By: #### L AB17, [id number], [id number] ####Aquatic Ecologist: FREEMAN DOUGHERTY ([phone])[facility] ([facility])[address] [place] [address] [place] GLOMERULAR FILTRATION RATE ML/MIN/1.73 SQ M.PREDICTED 38.3 mL/min/1.73m*2 Low >60.0 [facility] Comment on above: Result Comment: Calc ulation based on the Chronic Kidney Disease Epidemiology Collaboration (CKD-EPI) equation refit without adjustment for race Performed By: #### L AB17, [id number], [id number] ####Aquatic Ecologist: FREEMAN DOUGHERTY ([id number])[facility] ([facility])[address] Glucose [Mass/Vol] 169 mg/dL High 82-115 [facility] Comment on above: Performed By: #### Nicole SINGER17, [id number], [id number] ####Aquatic Ecologist: FREEMAN DOUGHERTY ([id number])[facility] ([facility])[address] Potassium [Moles/Vol] 3.6 mmol/L Normal 3.5-5.1 [facility] Comment on above: Result Comment: [facility] potassium values may be up to 0.5 mmol/L lower than serum values. Performed By: #### Nicole SINGER17, [id number], [id number] ####Aquatic Ecologist: FREEMAN DOUGHERTY ([phone])[facility] ([facility])[address] [place] [address] [place] Protein [Mass/Vol] 6.8 g/dL Normal 6.4-8.3 [facility] Comment on above: Performed By: #### L AB17, [id number], [id number] ####Aquatic Ecologist: FREEMAN DOUGHERTY ([id number])[facility] ([facility])[address] [place] [address] [place] Sodium [Moles/Vol] 141 mmol/L Normal 136-145 [facility] Comment on above: Performed By: #### L AB17, [id number], [id number] ####Aquatic Ecologist: FREEMAN DOUGHERTY ([id number])[facility] ([facility])[address] Urea nitrogen [Mass/Vol] 28 mg/dL High 9-23 [facility] Comment on above: Performed By: #### L AB17, [id number], [id number] ####Aquatic Ecologist: FREEMAN DOUGHERTY ([phone])[facility]RE[facility] SERVICES[facility] ([facility])[address] [place] [address] [place] COVID-19, Flu A/B, and RSV C omboon 11-13-2024 Interpretation and review of laboratory results Normal [facility] Comprehensive metabolic 1998 panelon 11-13-2024 Albumin [Mass/Vol] 3.5 g/dL 3.4 - 4.8 g/dL [facility] ALP [Catalytic activity/Vol] 101 U/L 40 - 150 U/L [facility] ALT [Catalytic activity/Vol] 11 U/L NINF - 30 U/L [facility] Anion gap [Moles/Vol] 16 mmol/L High 3 - 13 mmol/L [facility] AST [Catalytic activity/Vol] 20 U/L NINF - 34 U/L [facility] Bilirubin [Mass/Vol] 0.6 mg/dL NINF - 1.2 mg/dL [facility] Calcium [Mass/Vol] 9.1 mg/dL 8.8 - 10. 0 mg/dL [facility] Chloride [Moles/Vol] 105 mmol/L 98 - 10 7 mmol/L [facility] CO2 [Moles/Vol] 20 mmol/L Low 23 - 31 mmol/L [facility] Creatinine [Mass/Vol] 1.41 mg/dL High 0.57 - 1.11 mg/dL [facility] GFR/1.73 sq M.predicted (S/P/Bld) [Vol rate/Area] 38.3 mL/min Low - PINF [facility] Glucose [Mass/Vol] 169 mg/dL High 82 - 115 mg/dL [facility] Interpretation and review of laboratory results Abnormal [facility] Potassium [Moles/Vol] 3.6 mmol/L 3.5 - 5.1 mmol/L [facility] Protein [Mass/Vol] 6.8 g/dL 6.4 - 8.3 g/dL [facility] Sodium [Moles/Vol] 141 mmol/L 136 - 145 mmol/L [facility] Urea nitrogen [Mass/Vol] 28 mg/dL High 9 - 23 mg/dL [facility] Consulton 11-13-2024 Consult Internal Medicine: MICU Initial Consult Name: Carline Villarreal : 1945(78 y.o.) Date: 11/13/24 Attending: Shiloh Knapp MD Subjective: Chief Complaint: shortness of breath HPI: Patient is a pleasant 78-year-old female with a history of obesity class II, stroke, hypertension who presented to [facility] ED from SNF for shortness of breath and cough. She was hypoxemic on room air, required CPAP/BiPAP briefly, initial VBG showed pH 7.22 and pCO2 55. CXR concerning for CHF, she received IV lasix with good response, weaned off PAP onto nasal cannula. Upon evaluation, patient feels notably improved. She is a never-smoker, she has never received a diagnosis of COPD or asthma, never on long-term inhalers. She has never been formally diagnosed with GABRIELE, never on supplemental O2 or nightly PAP therapy long-term. She states cough has been getting slowly worse for past few weeks, it seems Lisinopril is on her home medication list. No leg swelling or recent infectious symptoms. She is hemodynamically stable and in no acute distress. Past Medical History: Diagnosis Date Diabetes mellitus (HCC) Hypertension Stroke (HCC) No past surgical history on file. No family history on file. Social History Socioeconomic History Marital status: Spouse name: Not on file Number of children: Not on file Years of education: Not on file Highest education level: Not on file Occupational History Not on file Tobacco Use Smoking status: Some Days Types: Cigarettes Smokeless tobacco: Not on file Substance and Sexual Activity Alcohol use: Not Currently Drug use: Not Currently Sexual activity: Not on file Other Topics Concern Not on file Social History Narrative Not on file Social Drivers of Health Financial Resource Strain: Not on file Food Insecurity: Patient Unable To Answer (12/16/2023) Hunger Vital Sign Worried About Running Out of Food in the Last Year: Patient unable to answer Ran Out of Food in the Last Year: Patient unable to answer Transportation Needs: Patient Unable To Answer (12/16/2023) PRAPARE - Transportation Lack of Transportation (Medical): Patient unable to answer Lack of Transportation (Non-Medical): Patient unable to answer Physical Activity: Not on file Stress: Not on file Social Connections: Not on file Intimate Partner Violence: Patient Unable To Answer (12/16/2023) Humiliation, Afraid, Rape, and Kick questionnaire Fear of Current or Ex-Partner: Patient unable to answer Emotionally Abused: Patient unable to answer Physically Abused: Patient unable to answer Sexually Abused: Patient unable to answer Housing Stability: Patient Unable To Answer (12/16/2023) Housing Stability Vital Sign Unable to Pay for Housing in the Last Year: Patient unable to answer Number of Places Lived in the Last Year: 1 Unstable Housing in the Last Year: Patient unable to answer No Known Allergies Prior to Admission medications Medication Sig Start Date End Date Taking? Authorizing Provider acetaminophen (Tylenol) 325 MG tablet Take 650 mg by mouth every 6 hours as needed for mild pain (1-3), moderate pain (4-6) or fever. Historical Provider, aluminum-magnesium hydroxide-simethicone (Maalox MAX) 400-400-40 MG/5ML suspension Take 10 mL by mouth every 4 hours as needed for indigestion or heartburn. Historical Provider, atorvastatin (Lipitor) 40 MG tablet Take 40 mg by mouth daily. Historical Provider, bisacodyl (Dulcolax) 5 MG EC tablet Take 5 mg by mouth Daily as needed for constipation. Do not crush, chew, or split. Historical Provider, bisacodyl (Dulcolax) 5 MG EC tablet Take 5 mg by mouth Daily as needed for constipation. Do not crush, chew, or split. Historical Provider, busPIRone (Buspar) 5 MG tablet Take 2.5 mg by mouth 2 times daily. Historical Provider, cloNIDine (Catapres) 0.2 MG tablet Take 0.2 mg by mouth 2 times daily. Historical Provider, clopidogrel (Plavix) 75 MG tablet Take 75 mg by mouth daily. Historical Provider, DULoxetine (Cymbalta) [address] capsule Take 30 mg by mouth daily. Do not crush or chew. Historical Provider, escitalopram (Lexapro) 10 MG tablet Take 10 mg by mouth daily. Historical Provider, famotidine (Pepcid) 20 MG tablet Take 20 mg by mouth daily. Historical Provider, gabapentin (Neurontin) 300 MG capsule Take 300 mg by mouth 2 times daily. Historical Provider, hydrALAZINE (Apresoline) 25 MG tablet Take 25 mg by mouth every 8 hours as needed (systolic over 160). Historical Provider, hydroCHLOROthiazide (HYDRODiuril) 50 MG tablet Take 50 mg by mouth daily. Historical Provider, ibuprofen 200 MG tablet Take 400 mg by mouth in the morning and 400 mg at noon and 400 mg in the evening and 400 mg before bedtime. Give adequate fluid and food with medication to minimize GI irritation . Historical Provider, levothyroxine (Synthroid, Levoxyl) 50 MCG tablet Take 50 (more content not included)... [facility] Consult Pharmacy Managed Vancomycin Dosing Service Consult Note Consult Date: 11/13/24 Patient Name: Carline Villarreal Allergies: Patient has no known allergies. Age: 78 y.o. Sex: female Estimated body mass index is 36.33 kg/m? as calculated from the following: Height as of 12/17/23: 1.676 m (5' 6). Weight as of this encounter: 102 kg (225 lb 1.4 oz). Lab Results Component Value Date CREATININE 1.41 (H) 11/13/2024 CREATININE 1.20 (H) 12/17/2023 BUN 28 (H) 11/13/2024 BUN 26 (H) 12/17/2023 WBC 10.5 11/13/2024 WBC 5.4 12/17/2023 Calculated CrCl: 39.7 mL/min Consulted By: Dr Franz Infectious Diagnosis: HAP (AUC Goal 400-600 mg/L*hr) Antimicrobials: Patient recently received an antibiotic (last 12 hours) Date/Time Action Medication Dose Rate 11/13/24 1335 New Bag vancomycin in NS (Vancocin) IVPB 2,000 mg 2,000 mg 250 mL/hr 11/13/24 1315 New Bag piperacillin-tazobacta m (Zosyn) 4,500 mg in sodium chloride 0.9 % 100 mL IVPB Mini-Bag Plus 4,500 mg 200 mL/hr Assessment/Plan: Doses, serum creatinine, and vancomycin levels interfaced automatically to [employer] and data has been analyzed and interpreted. Start Vancomycin 2000mg LD, then 1000 mg Q 24 hours based on patient age, weight, renal function, and infectious diagnosis (9.8 mg/kg). Predicted AUC = 548 mg/L*hr (goal 400-600 mg/L*hr) Will assess level on 11/14/24 and adjust as appropriate. Trend serum creatinine. Orders placed. Thank you for this consult. Please secure text or call with questions. ____ DATE: 11/13/24 TIME: 3:14 PM Julee Clement, PharmD Clinical Pharmacist Available via Secure Chat [facility] ECG 12-LEADon 11-13-2024 ECG 12-LEAD IMPRESSION: Sinus rhythm Abnormal T, consider ischemia, anterior leads Electronically Signed On 11-13-2024 15:50:52 EDT by Avi Peralta [facility] ED Provider Noteon ED Provider Note [facility] MSU 4S eMERGENCY dEPARTMENT eNCOUnter Pt Name: Carline Villarreal Birthdate 1945 Date of evaluation: 11/13/2024 Provider: Loly Saleem PA-C CHIEF COMPLAINT Chief Complaint Patient presents with Shortness of Breath Pt reports SOB from SNF. Per EMS pt was at 76% on RA on arrival. EMS states HX CHF and placed pt on BiPAP for transport to ED. HISTORY OF PRESENT ILLNESS (Location/Symptom, Timing/Onset,Context/S etting, Quality, Duration, Modifying Factors, Severity) Note limiting factors. HPI This patient is seen in conjunction with Dr. Peralta also interviewed and evaluate the patient at bedside. Carline Villarreal is a 78 y.o. female who presents to the emergency department by way of local EMS from a intermediate facility. Patient states she was coughing a lot today and became short of breath. custodial staff relayed that patient's pulse oximetry was in the 70s. They did give her 2 DuoNeb aerosol treatments and rescue squad was called. When rescue squad arrived they placed her on CPAP temporarily. Patient states that cough just began today. She denies any chest pain. She states she feels just a little bit short of breath at the time of my interview. Nursing Notes were reviewed. REVIEW OF SYSTEMS (2+ for4; 10+ for level 5) Review of Systems Constitutional: Negative for chills and fever. HENT: Negative for ear pain and sore throat. Eyes: Negative for pain and visual disturbance. Respiratory: Positive for cough and shortness of breath. Cardiovascular: Negative for chest pain and palpitations. Gastrointestinal: Negative for abdominal pain and vomiting. Genitourinary: Negative for dysuria and hematuria. Musculoskeletal: Negative for arthralgias and back pain. Skin: Negative for color change and rash. Neurological: Negative for seizures and syncope. All other systems reviewed and are negative. PAST MEDICAL HISTORY Past Medical History: Diagnosis Date Diabetes mellitus (HCC) Hypertension Stroke (HCC) SURGICALHISTORY No past surgical history on file. CURRENT MEDICATIONS Current Discharge Medication List CONTINUE these medications which have NOT CHANGED Details acetaminophen (Tylenol) 325 MG tablet Take 650 mg by mouth every 6 hours as needed for mild pain (1-3), moderate pain (4-6) or fever. aluminum-magnesium hydroxide-simethicone (Maalox MAX) 400-400-40 MG/5ML suspension Take 10 mL by mouth every 4 hours as needed for indigestion or heartburn. atorvastatin (Lipitor) 40 MG tablet Take 40 mg by mouth daily. !! bisacodyl (Dulcolax) 5 MG EC tablet Take 5 mg by mouth Daily as needed for constipation. Do not crush, chew, or split. !! bisacodyl (Dulcolax) 5 MG EC tablet Take 5 mg by mouth Daily as needed for constipation. Do not crush, chew, or split. busPIRone (Buspar) 5 MG tablet Take 2.5 mg by mouth 2 times daily. cloNIDine (Catapres) 0.2 MG tablet Take 0.2 mg by mouth 2 times daily. clopidogrel (Plavix) 75 MG tablet Take 75 mg by mouth daily. DULoxetine (Cymbalta) [address] capsule Take 30 mg by mouth daily. Do not crush or chew. escitalopram (Lexapro) 10 MG tablet Take 10 mg by mouth daily. famotidine (Pepcid) 20 MG tablet Take 20 mg by mouth daily. gabapentin (Neurontin) 300 MG capsule Take 300 mg by mouth 2 times daily. hydrALAZINE (Apresoline) 25 MG tablet Take 25 mg by mouth every 8 hours as needed (systolic over 160). ibuprofen 200 MG tablet Take 400 mg by mouth in the morning and 400 mg at noon and 400 mg in the evening and 400 mg before bedtime. Give adequate fluid and food with medication to minimize GI irritation . levothyroxine (Synthroid, Levoxyl) 50 MCG tablet Take 50 mcg by mouth every morning (before breakfast). lisinopril 5 MG tablet Take 5 mg by mouth daily. magnesium hydroxide (Milk of Magnesia) 400 MG/5ML suspension Take 30 mL by mouth Daily as needed for constipation. If no bm in 3 days melatonin 1 MG tablet Take 3 mg by mouth Nightly. metoprolol tartrate (Lopressor) 50 MG tablet Take 50 mg by mouth 2 times daily. Hold for SBP<100, HR <55 oxyCODONE-acetaminophe n (Percocet) 5-325 MG tablet Take 1 tablet by mouth every 8 hours as needed (for pain). polyethylene glycol, PEG, 3350 (Miralax) 17 g packet Take 17 g by mouth Once. SUMAtriptan (Imitrex) 50 MG tablet Take 50 mg by mouth every 6 hours as needed for migraine. traMADol (Ultram) 50 MG tablet Take 50 mg by mouth every 6 hours as needed for severe pain (7-10) or moderate pain (4-6). Monitor signs and symptoms of delirium, over sedation, change in mental status and reduced respirations !! - Potential duplicate medications found. Please discuss with provider. Patient has no known allergies. FAMILY HISTORY No family history on file. SOCIAL HISTORY Social History Socioeconomic History Marital status: Tobacco Use Smoking status: Some Days Types: Cigarettes Substance and Sexual Activity Alcohol use: Not C (more content not included)... Normal [facility] HIGH SENSITIVITY TROPONIN, S ERIAL BASELINEon 11-13-2024 TROPONIN HS SERIAL BASELINE 12 ng/L Normal <=14 [facility] Comment on above: Result Comment: In i ndividuals presenting with symptoms > 2h, a baseline troponin <= 5 ng/L suggests acute cardiac injury is unlikely and further serial testing is generally not indicated. Performed By: #### L [id number], [id number], [id number] ####Aquatic Ecologist: FREEMAN DOUGHERTY ([id number])[facility] (SBHLAB)[address] HIGH SENSITIVITY TROPONIN, S GIFTY, SECOND TESTon 11-13-2024 2H TROPONIN HS (SERIAL 2ND TROPONIN) 124 ng/L High <=14 [facility] Comment on above: Result Comment: Risi ng or falling troponin delta greater than 15 ng/L as compared to baseline value is significant for acute cardiac injury. Performed By: #### L [id number], [id number] ####Aquatic Ecologist: FREEMAN DOUGHERTY ([id number])[facility] (SBHLAB)[address] Laboratory - Chemistry and C hemistry - challengeon 11-13-2024 Base excess Calc (BldV) [Moles/Vol] -4.7000 mmol/L Low -3.0 - 3.0 mmol/L [facility] CO2 (BldV) [Partial pressure] 30.8 mm[Hg] Low [facility] CO2 [Moles/Vol] 19.8 mmol/L Low 23.0 - 30.0 mmol/L [facility] HCO3 (Bld) [Moles/Vol] 18.8 mmol/L Low 21.0 - 30.0 mmol/L [facility] Oxygen (BldV) [Partial pressure] 47.3 mm[Hg] mm Hg [facility] pH (BldV) 7.404 [pH] 7.320 - 7.420 [facility] Procalcitonin [Mass/Vol] 0.02 ng/mL NINF - 0.07 ng/mL [facility] Laboratory - Chemistry and C hemistry - challengeOrdered By: Shala Ruiz on 11-13-2024 Base excess Calc (BldV) [Moles/Vol] -5.5000 mmol/L Low -3.0 - 3.0 mmol/L [facility] CO2 (BldV) [Partial pressure] 55.8 mm[Hg] High [facility] CO2 [Moles/Vol] 24.5 mmol/L 23.0 - 30.0 mmol/L [facility] HCO3 (Bld) [Moles/Vol] 22.8 mmol/L 21.0 - 30.0 mmol/L [facility] Oxygen (BldV) [Partial pressure] 32.9 mm[Hg] mm Hg [facility] pH (BldV) 7.229 [pH] Low 7.320 - 7.420 [facility] Laboratory - Hematology and Cell countson 11-13-2024 Hemoglobin (Bld) [Mass/Vol] 14.7 g/dL Screen only [facility] Laboratory - Hematology and Cell countsOrdered By: Shala Ruiz on 11-13-2024 Hemoglobin (Bld) [Mass/Vol] 14.5 g/dL Screen only [facility] Laboratory - Microbiology an d Antimicrobial susceptibilityon 11-13-2024 FLUAV RNA KAYLEE+probe Ql (Resp) Not detected Not Detected [facility] FLUBV RNA KAYLEE+probe Ql (Resp) Not detected Not Detected [facility] RSV RNA KAYLEE+probe Ql (Resp) Not detected Not Detected [facility] SARS-CoV-2 (COVID-19) RNA KAYLEE+probe Ql (Resp) Not detected Not Detected [facility] NT PRO BNPon 11-13-2024 Natriuretic peptide B (Bld) [Mass/Vol] 6596 pg/mL High <450 [facility] Comment on above: Performed By: #### L [id number], [id number], [id number] ####Aquatic Ecologist: FREEMAN DOUGHERTY ([id number])[facility] ([facility])[address] [place] [address] Natriuretic peptide B [Mass/ Vol]on 11-13-2024 Interpretation and review of laboratory results Abnormal [facility] Natriuretic peptide B (Bld) [Mass/Vol] 6596 pg/mL High NINF - 450 pg/mL [facility] No Panel Informationon 11-13 P [place] 39 degrees [facility] LA Interval 198 ms [facility] QRS [place] 20 degrees [facility] QRSD Interval 83 [facility] Interval 365 ms [facility] QTC Interval 429 ms [facility] T Wave [place] -75 degrees [facility] CV EPIPHANY [facility] Interpretation and review of laboratory results Abnormal [facility] Source Of Oxygen Nasal Cannula (LPM) [facility] 2h Troponin HS (Serial 2nd Troponin) 124 ng/L High NINF - 14 ng/L [facility] Interpretation and review of laboratory results Abnormal [facility] Interpretation and review of laboratory results Normal [facility] Troponin HS Serial Baseline 12 ng/L NINF - 14 ng/L [facility] No Panel InformationOrdered By: Shala Ruiz on 11-13-2024 Interpretation and review of laboratory results Abnormal [facility] Source Of Oxygen Nasal Cannula (LPM) [facility] Nursing Noteon 11-13-[address] Franz and Dr. Jack notified patient has arrived to floor, room 466 A from ER. Normal [facility] PROCALCITONIN TESTon 025 PROCALCITONIN 0.02 ng/mL Normal <0.07 [facility] Comment on above: Result Comment: ORDE R COMMENTS: PCT <0.50 = Low risk of severe sepsis and/or septic shock. PCT >2.00 = High risk of severe sepsis and/or septic shock. Performed By: #### L [id number], [id number] ####Aquatic Ecologist: FREEMAN DOUGHERTY ([id number])[facility] ([facility])[address] [place] [address] Procalcitonin [Mass/Vol]on 0 11-13-2024 Interpretation and review of laboratory results [facility] SARS-COV-2, FLU A/B, AND RSV COMBOon 11-13-2024 SARS-CoV-2 (COVID-19) RNA KAYLEE+probe Ql (Unsp spec) SARS-COV-2 Reference Not Detected Not Detected RESPIRATORY SYNCYTIAL VIRUS Reference Not Detected Not Detected INFLUENZA A (CEPHEID) Reference Not Detected Not Detected INFLUENZA B (CEPHEID) Reference Not Detected Not Detected ORDER COMMENTS: Methodology: real-time, RT-PCR The SARS-CoV-2, Flu A/B, and RSV Combo assay is intended for in vitro diagnostic use under the FDA Emergency Use Authorization (EUA). This test has not been FDA cleared or approved. In compliance with this authorization, please visit www.fda.gov/media/1426 35/download or www.fda.gov/media/1423 36/download to access the applicable information sheets. [facility] Comment on above: Performed By: #### L [id number] ####Aquatic Ecologist: FREEMAN DOUGHERTY ([id number])[facility] (SBHLAB)[address] Vital signson 11-13-2024 Heart rate 83 /min bpm [facility] Oxygen saturation in Venous blood 84.2 % [facility] Vital signsOrdered By: Shala Ruiz on 11-13-2024 Oxygen saturation in Venous blood 55.4 % [facility] XR Chest Single viewon 11-13 [facility] Radiology Study observation (narrative) [facility] XR Chest Single viewOrdered By: Chasity Santizo on 11-13-2024 [facility] Work Phone: Hemoglobin A1con 09-26-2024 HbA1c (Bld) [Mass fraction] 5.6 % Low <=5.6 [facility] Comment on above: Order Comment: 305-1 Performed By: #### L 100.0500, L500.2500 #### [facility] [address] [place], [address] Anion gap in Serum or Plasma Ordered By: Evi Guevara on 09-25-2024 Anion gap [Moles/Vol] 10 mmol/L 5-[address] [facility] BUN/creatinine ratioOrdered By: Evi Guevara on 09-25-2024 Urea nitrogen/Creatinine [Mass ratio] 21.8 mg/mg High 10-20 [facility] Bilirubin, totalOrdered By: Evi Guevara on 09-25-2024 Bilirubin [Mass/Vol] 0.35 mg/dL 0.00-1.30 [facility] CBC-Complete Blood Cnt No Di ffon 09-25-2024 Erythrocyte distribution width (RBC) [Ratio] 13.6 % Normal 11.6-14.6 [facility] Comment on above: Order Comment: GRETCHEN TER SPECIMEN Performed By: #### L 400.0001 #### [facility] [address] [place], [place], [id number] Hematocrit (Bld) [Volume fraction] 35.6 % Low 37-47 [facility] Comment on above: Order Comment: GRETCHEN TER SPECIMEN Performed By: #### L 400.0001 #### [facility] [address] [place], [address] Hemoglobin (Bld) [Mass/Vol] 12.1 g/dL Normal 12.0-15.0 [facility] Comment on above: Order Comment: GRETCHEN TER SPECIMEN Performed By: #### L 400.0001 #### [facility] [address] [place], [address] MCH (RBC) [Entitic mass] 32.4 pg High 27.0-32.0 [facility] Comment on above: Order Comment: GRETCHEN TER SPECIMEN Performed By: #### L 400.0001 #### [facility] [address] [place], [address] MCHC (RBC) [Mass/Vol] 34.0 g/dL Normal 32-[address] [facility] Comment on above: Order Comment: GRETCHEN TER SPECIMEN Performed By: #### L 400.0001 #### [facility] [address] [place], [address] MCV (RBC) [Entitic vol] 95.2 fL Normal 81-99 [facility] Comment on above: Order Comment: GRETCHEN TER SPECIMEN Performed By: #### L 400.0001 #### [facility] [address] [place], [address] Platelet mean volume (Bld) [Entitic vol] 11.3 fL Normal 6.2-12.0 [facility] Comment on above: Order Comment: GRETCHEN TER SPECIMEN Performed By: #### L 400.0001 #### [facility] [address] [place], [address] Platelets (Bld) [#/Vol] 202 10*3/uL Normal 150-450 [facility] Comment on above: Order Comment: GRETCHEN TER SPECIMEN Performed By: #### L 400.0001 #### [facility] [address] [place], [address] RBC (Bld) [#/Vol] 3.74 10*6/uL Low 4.2-5.4 [facility] Comment on above: Order Comment: GRETCHEN TER SPECIMEN Performed By: #### L 400.0001 #### [facility] [address] [place], [address] RDW SD 47.6 fl High 35.1-43.9 [facility] Comment on above: Order Comment: GRETCHEN TER SPECIMEN Performed By: #### L 400.0001 #### [facility] [address] [place], [address] WBC (Bld) [#/Vol] 6.0 10*3/uL Normal 4.4-11.0 [facility] Comment on above: Order Comment: GRETCHEN TER SPECIMEN Performed By: #### L 400.0001 #### [facility] [address] [place], [address] Calculated very low density lipoprotein (VLDL) cholesterol measurementOrdered By: Evi Guevara on 09-25-2024 VLDL Cholesterol 23 mg/dL 5-40 [facility] Carbon dioxide, total [Moles /volume] in Central venous bloodOrdered By: Evi Guevara on 09-25-2024 CO2 [Moles/Vol] 23.2 mmol/L 21.0-32.0 [facility] Chloride assayOrdered By: Ari Licea on 09-25-2024 Chloride [Moles/Vol] 106 mmol/L 98-108 [facility] Comprehensive Metabolic Prof ilon 09-25-2024 Albumin [Mass/Vol] 3.5 g/dL Normal 3.4-4.8 [facility] Comment on above: Order Comment: 305-1 Performed By: #### L 100.0500, L500.2500 #### [facility] [address] [place], [address] Albumin/Globulin [Mass ratio] 1.5 {ratio} Normal 0.9-2.4 [facility] Comment on above: Order Comment: 305-1 Performed By: #### L 100.0500, L500.2500 #### [facility] [address] [place], [address] ALK PHOS 89 U/L Normal 35-104 [facility] Comment on above: Order Comment: 305-1 Performed By: #### L 100.0500, L500.2500 #### [facility] [address] [place], [address] ALT [Catalytic activity/Vol] 8 U/L Normal <=34 [facility] Comment on above: Order Comment: 305-1 Performed By: #### L 100.0500, L500.2500 #### [facility] [address] [place], [address] AST [Catalytic activity/Vol] 22 U/L Normal <=31 [facility] Comment on above: Order Comment: 305-1 Performed By: #### L 100.0500, L500.2500 #### [facility] [address] [place], [address] Bilirubin [Mass/Vol] 0.35 mg/dL Normal 0.00-1.30 [facility] Comment on above: Order Comment: 305-1 Performed By: #### L 100.0500, L500.2500 #### [facility] [address] [place], [address] BUN/CRE 21.8 RATIO High 10-20 [facility] Comment on above: Order Comment: 305-1 Performed By: #### L 100.0500, L500.2500 #### [facility] [address] [place], [address] Calcium [Mass/Vol] 9.1 mg/dL Normal 7.6-11.0 [facility] Comment on above: Order Comment: 305-1 Performed By: #### L 100.0500, L500.2500 #### [facility] [address] [place], [address] Chloride [Moles/Vol] 106 mmol/L Normal 98-108 [facility] Comment on above: Order Comment: 305-1 Performed By: #### L 100.0500, L500.2500 #### [facility] [address] [place], [address] CO2 [Moles/Vol] 23.2 mmol/L Normal 21.0-32.0 [facility] Comment on above: Order Comment: 305-1 Performed By: #### L 100.0500, L500.2500 #### [facility] [address] [place], [address] Creatinine [Mass/Vol] 1.37 mg/dL High 0.70-1.[address] [facility] Comment on above: Order Comment: 305-1 Performed By: #### L 100.0500, L500.2500 #### [facility] [address] [place], [address] GAP 10 Normal 5-15 [facility] Comment on above: Order Comment: 305-1 Performed By: #### L 100.0500, L500.2500 #### [facility] [address] [place], [address] GFR/1.73 sq M.predicted among non-blacks MDRD (S/P/Bld) [Vol rate/Area] 40 mL/min/{1.73_m2} Low >60 [facility] Comment on above: Order Comment: 305-1 Result Comment: mL/m in/1.73m2 CKD-EPI Creatinine Equation (2020) Performed By: #### L 100.0500, L500.2500 #### [facility] [address] [place], [address] Globulin (S) [Mass/Vol] 2.3 g/dL Normal 2.2-4.2 [facility] Comment on above: Order Comment: 305-1 Performed By: #### L 100.0500, L500.2500 #### [facility] [address] [place], [address] Glucose [Mass/Vol] 121 mg/dL High 70-99 [facility] Comment on above: Order Comment: 305-1 Performed By: #### L 100.0500, L500.2500 #### [facility] [address] [place], [address] Potassium [Moles/Vol] 3.7 mmol/L Normal 3.3-5.[address] [facility] Comment on above: Order Comment: 305-1 Performed By: #### L 100.0500, L500.2500 #### [facility] [address] [place], [address] Sodium [Moles/Vol] 139 mmol/L Normal 133-145 [facility] Comment on above: Order Comment: 305-1 Performed By: #### L 100.0500, L500.2500 #### [facility] [address] [place], [address] T PROT 5.7 g/dL Low 5.9-8.4 [facility] Comment on above: Order Comment: 305-1 Performed By: #### L 100.0500, L500.2500 #### [facility] [address] [place], [address] Urea nitrogen [Mass/Vol] 30 mg/dL High 4-19 [facility] Comment on above: Order Comment: 305-1 Performed By: #### L 100.0500, L500.2500 #### [facility] [address] [place], [address] Erythrocyte distribution wid th (RBC) [Ratio]Ordered By: Evi Guevara on 09-25-2024 Erythrocyte distribution width (RBC) [Entitic vol] 47.6 fL High 35.1-43.9 [facility] Erythrocyte distribution wid th ratioOrdered By: Evi Guevara on 09-25-2024 Erythrocyte distribution width (RBC) [Ratio] 13.6 % 11.6-14.6 [facility] GFR/1.73 sq M.predicted malissa g non-blacks MDRD (S/P/Bld) [Vol rate/Area]Ordered By: Evi Guevara on 09-25-2024 Estimated GFR (MDRD) Non-Af Amer 40 Low >60 [facility] Comment on above: mL/min/1.73m2 CKD-EP I Creatinine Equation (2020) Hematocrit Auto (Bld) [Volum e fraction]Ordered By: Evi Guevara on 09-25-2024 Hematocrit (Bld) [Volume fraction] 35.6 % Low 37-47 [facility] Hemoglobin A1c percentageOrd ered By: Evi Guevara on 09-25-2024 HbA1c (Bld) [Mass fraction] 5.6 % Low >5.7 [facility] Hemoglobin measurementOrdere d By: Evi Guevara on 09-25-2024 Hemoglobin (Bld) [Mass/Vol] 12.1 g/dL 12.0-15.0 [facility] LDL calc ser/plasOrdered By: Evi Guevara on 09-25-2024 LDL Cholesterol, Calculated 70 mg/dL [facility] Comment on above: Wzinitcxes=102-178 m g/dL & Higher Awvp=983 mg/dL or greater Laboratory - Chemistry and C hemistry - challengeOrdered By: Evi Guevara on 09-25-2024 AST [Catalytic activity/Vol] 22 U/L <32 [facility] Lipid Profileon 09-25-2024 CHOL:HDL 3.41 Normal [facility] Comment on above: Order Comment: 305-1 Performed By: #### L 100.0500, L500.2500 #### [facility] [address] [place], [address] Cholesterol [Mass/Vol] 132 mg/dL Normal <=200 [facility] Comment on above: Order Comment: 305-1 Result Comment: Chol esterol level, Desirable <200 mg/dL Borderline high cholesterol 200-239 mg/dL High cholesterol >=240 mg/dL Recommendations of the NCEP Adult Treatment Panel for the following risk-cutoff thresholds for the [place] population. Performed By: #### L 100.0500, L500.2500 #### [facility] [address] [place], [address] Cholesterol in HDL [Mass/Vol] 39 mg/dL Low [facility] Comment on above: Order Comment: 305-1 Result Comment: Sherly onal Cholesterol Education Program (NCEP) guidelines: <40 mg/dL: Low HDL-cholesterol (major risk factor for CHD) >= 60 mg/dL: High HDL-cholesterol (negative risk factor for CHD) HDL-cholesterol is affected by a number of factors, e.g. smoking, exercise, hormones, sex and age. Performed By: #### L 100.0500, L500.2500 #### [facility] [address] [place], [address] Cholesterol in LDL [Mass/Vol] 70 mg/dL Normal [facility] Comment on above: Order Comment: 305 Result Comment: Bord azwbze=112-350 mg/dL Higher Wdzk=918 mg/dL or greater Performed By: #### L 100.0500, L500.2500 #### [facility] [address] [place], [address] Cholesterol in VLDL [Mass/Vol] 23 mg/dL Normal 5-40 [facility] Comment on above: Order Comment: 305 Performed By: #### L 100.0500, L500.2500 #### [facility] [address] [place], [address] Triglyceride [Mass/Vol] 116 mg/dL Normal [facility] Comment on above: Order Comment: 3051 Result Comment: The drugs N-Acetylcysteine and Metamizole may falsely depress this assay. Normal range: <150 mg/dL Borderline High: 150-199 mg/dL High: 200-499 mg/dL Very High: >500 mg/dL Performed By: #### L 100.0500, L500.2500 #### [facility] [address] [place], [address] MCV (mean corpuscular volume ) determinationOrdered By: Evi Guevara on 09-25-2024 MCV (RBC) [Entitic vol] 95.2 fL 81-99 [facility] Mean corpuscular hemoglobin (MCH) determinationOrdered By: Evi Guevara on 09-25-2024 MCH (RBC) [Entitic mass] 32.4 pg High 27.0-32.0 [facility] Mean corpuscular hemoglobin concentration (MCHC) determinationOrdered By: Evi Guevara on 09-25-2024 MCHC (RBC) [Mass/Vol] 34.0 g/dL 32-[address] [facility] Mean platelet volume determi nationOrdered By: Evi Guevara on 09-25-2024 Platelet mean volume (Bld) [Entitic vol] 11.3 fL 6.2-12.0 [facility] Platelet countOrdered By: Ari Licea on 09-25-2024 Platelets (Bld) [#/Vol] 202 10*3/uL 150-450 [facility] Potassium (Unsp spec) [Mass/ Vol]Ordered By: Evi Guevara on 09-25-2024 Potassium [Moles/Vol] 3.7 mmol/L 3.3-5.[address] [facility] RBC Auto (Bld) [#/Vol]Ordere d By: Evi Guevara on 09-25-2024 RBC (Bld) [#/Vol] 3.74 10*6/uL Low 4.2-5.4 [facility] Screening total cholesterol/ high density lipoprotein (HDL) cholesterol ratioOrdered By: Evi Guevara on 09-25-2024 Cholesterol.total/Yesi sterol in HDL [Mass ratio] 3.41 {ratio} [facility] Serum creatinine measurement (mass/volume)Ordered By: Evi Guevara on 09-25-2024 Creatinine [Mass/Vol] 1.37 mg/dL High 0.70-1.[address] [facility] Serum globulin measurementOr dered By: Evi Guevara on 09-25-2024 Globulin (S) [Mass/Vol] 2.3 g/dL 2.2-4.2 [facility] Serum glucose measurement (m ass/volume)Ordered By: Evi Guevara on 09-25-2024 Glucose [Mass/Vol] 121 mg/dL High 70-99 [facility] Serum or plasma alanine barajas otransferase (ALT) measurementOrdered By: Evi Guevara on 09-25-2024 ALT [Catalytic activity/Vol] 8 U/L <35 [facility] Serum or plasma albumin jeffrey urement (mass/volume)Ordered By: Evi Guevara on 09-25-2024 Albumin [Mass/Vol] 3.5 g/dL 3.4-4.8 [facility] Serum or plasma albumin/glob ulin mass ratioOrdered By: Evi Guevara on 09-25-2024 Albumin/Globulin [Mass ratio] 1.5 {ratio} 0.9-2.4 [facility] Serum or plasma alkaline aisha sphatase measurementOrdered By: Evi Guevara on 09-25-2024 ALP [Catalytic activity/Vol] 89 U/L 35-104 [facility] Serum or plasma calcium jeffrey urement (mass/volume)Ordered By: Evi Guevara on 09-25-2024 Calcium [Mass/Vol] 9.1 mg/dL 7.6-11.0 [facility] Serum or plasma cholesterol in HDL measurement (mass/volume)Ordered By: Evi Guevara on 09-25-2024 Cholesterol in HDL [Mass/Vol] 39 mg/dL Low >40 [facility] Comment on above: National Cholesterol Education Program (NCEP) guidelines:<40 mg/dL: Low HDL-cholesterol (major risk factor for CHD)>= 60 mg/dL: High HDL-cholesterol (negative risk factor for CHD)HDL-cholesterol is affected by a number of factors, e.g. smoking, exercise, hormones, sex and age. Serum or plasma cholesterol measurement (mass/volume)Ordered By: Evi Guevara on 09-25-2024 Cholesterol [Mass/Vol] 132 mg/dL <201 [facility] Comment on above: Cholesterol level, D esirable <200 mg/dLBorderline high cholesterol 200-239 mg/dLHigh cholesterol >=240 mg/dLRecommendations of the NCEP Adult Treatment Panel for the following risk-cutoff thresholds for the [place] population. Serum or plasma urea nitroge n measurement (mass/volume)Ordered By: Evi Guevara on 09-25-2024 Urea nitrogen [Mass/Vol] 30 mg/dL High 4-19 [facility] Sodium levelOrdered By: Christian Guevara on 09-25-2024 Sodium [Moles/Vol] 139 mmol/L 133-145 [facility] TSH DL <= 0.005 mIU/L QnOrde red By: Evi Guevara on 09-25-2024 Thyroid Stimulating Hormone (TSH) 3.160 uIU/mL 0.300-4.200 [facility] Thyroid Stim Hormone (TSH)on 09-25-2024 TSH 3.160 uIU/mL Normal 0.300-4.200 [facility] Comment on above: Order Comment: 305-1 Performed By: #### L 100.0500, L500.2500 #### [facility] [address] [place], [address] Total proteinOrdered By: Mark Guevara on 09-25-2024 Protein [Mass/Vol] 5.7 g/dL Low 5.9-8.4 [facility] Triglycerides measurementOrd ered By: Evi Guevara on 09-25-2024 Triglyceride [Mass/Vol] 116 mg/dL <199 [facility] Comment on above: The drugs N-Acetylcy steine and Metamizole may falsely depress this assay. Normal range: <150 mg/dLBorderline High: 150-199 mg/dLHigh: 200-499 mg/dLVery High: >500 mg/dL White blood cell (WBC) count Ordered By: Evi Guevara on 09-25-2024 WBC (Bld) [#/Vol] 6.0 10*3/uL 4.4-11.0 [facility] Urine Cultureon 09-03-2024 [facility] Copy of report sent to Infection Control Printer [id number] 09/01/24 0742 ROSANNA. Urine Culture RESULTS CALLED TO VINOD Monte 09/01/24 1023 Chelita Early. REPORT READ BACK BY . ESBL Escherichia coli Minerva Count 11,000-25,000 MARKER ESBL producing OrganismA * This is an amended result. * A prior result that was reported as final has been changed. 09/03/24 0702 by GLORIA ESBL Escherichia coli: REACTION Ampicillin Islt THI >=32 R Ampicillin+Sulbac Islt THI >=32 Cefepime Islt THI 16 R cefTRIAXone Islt THI >=64 R Ciprofloxacin Islt THI >=4 R B-Lactamase Extended Susc Islt POS Gentamicin Islt THI <=1 S levoFLOXacin Islt THI >=8 R Meropenem Islt THI <=0.25 S Nitrofurantoin Islt THI <=16 S Pip+Tazo Islt THI 8 S TMP SMX Islt THI >=320 R ESBL Escherichia coli: REACTION Amikacin Islt THI 2 S Eravacycline Islt THI <=0.12 Imipenem Islt THI <=0.25 S Tobramycin Islt THI <=1 S Normal [facility] Comment on above: Performed By: #### M 100.2200, L400.2010 #### [facility] [address] [place], [address] Urine Cultureon 08-31-2024 UR #3 Organism is too fastidious for routine susceptibility studies. Urine Culture Copy of report sent to Infection Control Printer [id number] 08/31/24 0735 ROSANNA. Morganella morganii sp sibonii Minerva Count <1000 Meth. resistant Staph. aureus Meth. resistant Staph. aureus mecA Testing not performed Aerococcus viridans. Minerva Count <1000 Enterococcus faecalis Aerococcus viridans. PMIR Minerva Count <1000 Enterococcus faecalis Ampicillin Islt THI Ampicillin+Sulbac Islt THI <=2 S Proteus mirabilis Gentamicin Islt THI <=1 levoFLOXacin Islt THI >=8 R Meropenem Islt THI <=0.25 Nitrofurantoin Islt THI 128 R Pip+Tazo Islt THI <=4 S TMP SMX Islt THI <=20 S Meth. resistant Staph. aureus: REACTION cefOXitin Susc Islt POS Doxycycline Islt THI 8 I Clindamycin.induced Susc Islt NEG Gentamicin Islt THI <=0.5 S Linezolid Islt THI 2 S Moxifloxacin Islt THI >=8 Nitrofurantoin Islt THI <=16 S Oxacillin Susc Islt >=4 R Tetracycline Islt THI >=16 R TMP SMX Islt THI >=320 R Vancomycin Islt THI 1 S Enterococcus faecalis: REACTION Ampicillin Islt THI <=2 S Ciprofloxacin Islt THI >=8 R Gentamicin Synergy Susc Islt SYN-R R levoFLOXacin Islt THI >=8 R Linezolid Islt THI 1 S Nitrofurantoin Islt THI <=16 Streptomycin High Pot Susc Islt SYN-S S Tetracycline Islt THI >=16 R Vancomycin Islt THI 1 S Proteus mirabilis: REACTION Ampicillin Islt THI <=2 S Ampicillin+Sulbac Islt THI <=2 S Cefepime Islt THI <=0.12 S cefTRIAXone Islt THI <=0.25 S Ciprofloxacin Islt THI >=4 R Gentamicin Islt THI <=1 levoFLOXacin Islt THI >=8 R Meropenem Islt THI 1 S Nitrofurantoin Islt THI 128 R Pip+Tazo Islt THI <=4 S TMP SMX Islt THI 40 S Normal [facility] Comment on above: Performed By: #### M 100.2200, L400.2010 #### [facility] [address] [place], [address] Bilirubin Test strip Ql (U)O rdered By: Evi Guevara on 08-30-2024 Bilirubin Ql (U) Negative Negative [facility] Epithelial cells.squamous LM Ql (Urine sed)Ordered By: Evi Guevara on 08-30-2024 Epithelial cells.squamous LM.HPF (Urine sed) [#/Area] 0 /[HPF] 5-10 [facility] Glucose Ql (U)Ordered By: Ari Licea on 08-30-2024 Urine Glucose (UA) Normal mg/dl Normal [facility] Ketones Test strip Ql (U)Ord ered By: Evi Guevara on 08-30-2024 Ketones Ql (U) Negative Negative [facility] Microscopic analysis of urin e for red blood cells (RBC)Ordered By: Evi Guevara on 08-30-2024 Urine RBC 0 SEEN /hpf 0-5 [facility] Mucus LM Ql (Urine sed)Order ed By: Evi Guevara on 08-30-2024 Mucus Ql (Urine sed) 0 SEEN /hpf [facility] Nitrite Test strip Ql (U)Ord ered By: Evi Guevara on 08-30-2024 Nitrite Ql (U) Positive High Negative [facility] Protein Test strip Ql (U)Ord ered By: Evi Guevara on 08-30-2024 Protein Ql (U) 15 mg/dl High Negative [facility] Urinalysis, Completeon 08-30 BACTERIA 1+ /hpf Normal None Seen [facility] Comment on above: Order Comment: CLEAN CATCH Performed By: #### L 400.0001, M100.2200 #### [facility] [address] [place], [address] RBC 0 SEEN Normal 0-5 [facility] Comment on above: Order Comment: CLEAN CATCH Performed By: #### L 400.0001, M100.2200 #### [facility] [address] [place], [address] WBC 0-5 SEEN Normal 0-5 [facility] Comment on above: Order Comment: CLEAN CATCH Performed By: #### L 400.0001, M100.2200 #### [facility] [address] [place], [address] EPI,SQUAMOUS 0 SEEN Normal 5-10 [facility] Comment on above: Order Comment: CLEAN CATCH Performed By: #### L 400.0001, M100.2200 #### [facility] [address] [place], [address] Mucus Ql (Urine sed) 0 SEEN Normal [facility] Comment on above: Order Comment: CLEAN CATCH Performed By: #### L 400.0001, M100.2200 #### [facility] [address] [place], [address] Urine blood detectionOrdered By: Evi Guevara on 08-30-2024 Urine Occult Blood 10 /ul High Negative [facility] Urine clarityOrdered By: Mark Guevara on 08-30-2024 Clarity (U) Clear Clear [facility] Urine color determinationOrd ered By: Evi Guevara on 08-30-2024 Color (U) Straw Yellow [facility] Urine cultureOrdered By: Mark Guevara on 08-30-2024 Bacteria identified Cx Nom (U) ESBL Escherichia coli Abnormal [facility] Bacteria identified Cx Nom (U) ESBL Escherichia coli Abnormal [facility] Urine leukocyte esterase det ection by dipstickOrdered By: Evi Guevara on 08-30-2024 Leukocyte esterase Test strip Ql (U) 500 /ul High Negative [facility] Urine pHOrdered By: Evi gillette on 08-30-2024 pH (U) 6.0 [pH] 5.0 - 8.0 [facility] Urine sediment bacteria coun t by microscopy (number/high power field)Ordered By: Evi Guevara on 08-30-2024 Bacteria LM.HPF (Urine sed) [#/Area] 1 /[HPF] None Seen [facility] Urine specific gravity measu rementOrdered By: Evi Guevara on 08-30-2024 Specific gravity (U) [Rel density] 1.010 1.002-1.030 [facility] Urobilinogen Ql (U)Ordered B y: Evi Guevara on 08-30-2024 Urine Urobilinogen Normal mg/dl Normal [facility] White blood cell countOrdere d By: Evi Guevara on 08-30-2024 Urine WBC 0-5 SEEN /hpf 0-5 [facility] Urinalysis, Routine (Dipstic k)on 08-28-2024 BILIRUBIN URINE Negative Normal Negative [facility] Comment on above: Order Comment: GRETCHEN TER SPECIMEN Performed By: #### M 100.2199, L4.2010 #### [facility] [address] [place], [address] Clarity (U) Clear Normal Clear [facility] Comment on above: Order Comment: GRETCHEN TER SPECIMEN Performed By: #### M 100.0, L4 #### [facility] [address] [place], [address] Color (U) Straw Normal Yellow [facility] Comment on above: Order Comment: GRETCHEN TER SPECIMEN Performed By: #### M #### [facility] [address] [place], [address] GLUCOSE, UR Normal Normal Normal [facility] Comment on above: Order Comment: GRETCHEN TER SPECIMEN Performed By: #### M #### [facility] [address] [place], [address] KETONE UR Negative Normal Negative [facility] Comment on above: Order Comment: GRETCHEN TER SPECIMEN Performed By: #### M #### [facility] [address] [place], [address] LEUK ESTERASE Negative Normal Negative [facility] Comment on above: Order Comment: GRETCHEN TER SPECIMEN Performed By: #### M #### [facility] [address] [place], [address] Nitrite Ql (U) Negative Normal Negative [facility] Comment on above: Order Comment: GRETCHEN TER SPECIMEN Performed By: #### M #### [facility] [address] [place], [address] OCCULT BLOOD-UR 10 /ul Abnormal Negative [facility] Comment on above: Order Comment: GRETCHEN TER SPECIMEN Performed By: #### M #### [facility] [address] [place], [address] pH UR 6.0 Normal 5.0 - 8.0 [facility] Comment on above: Order Comment: GRETCHEN TER SPECIMEN Performed By: #### M #### [facility] [address] [place], [address] PROT DIPSTX Negative Normal Negative [facility] Comment on above: Order Comment: GRETCHEN TER SPECIMEN Performed By: #### M 100.2200, L400.2010 #### [facility] [address] [place], [address] SP.GR. DIPSTX 1.010 Normal 1.002-1.030 [facility] Comment on above: Order Comment: GRETCHEN TER SPECIMEN Performed By: #### M 100.2200, L400.2010 #### [facility] [address] [place], [address] UROBILI Normal Normal Normal [facility] Comment on above: Order Comment: GRETCHEN TER SPECIMEN Performed By: #### M 100.2200, L400.2010 #### [facility] [address] [place], [address] Bilirubin Test strip Ql (U)O rdered By: [facility] on 08-27-2024 Bilirubin Ql (U) Negative Negative [facility] Glucose Ql (U)Ordered By: [facility] on 08-27-2024 Urine Glucose (UA) Normal mg/dl Normal [facility] Ketones Test strip Ql (U)Ord ered By: [facility] on 08-27-2024 Ketones Ql (U) Negative Negative [facility] Nitrite Test strip Ql (U)Ord ered By: [facility] on 08-27-2024 Nitrite Ql (U) Negative Negative [facility] Protein Test strip Ql (U)Ord ered By: [facility] on 08-27-2024 Protein Ql (U) Negative Negative [facility] Urine blood detectionOrdered By: [facility] on 08-27-2024 Urine Occult Blood 10 /ul High Negative [facility] Urine clarityOrdered By: [facility] on 08-27-2024 Clarity (U) Clear Clear [facility] Urine color determinationOrd ered By: [facility] on 08-27-2024 Color (U) Straw Yellow [facility] Urine cultureOrdered By: [facility] on 08-27-2024 Bacteria identified Cx Nom (U) Morganella morganii sp sibonii Abnormal [facility] Bacteria identified Cx Nom (U) Meth. resistant Staph. aureus Abnormal [facility] Bacteria identified Cx Nom (U) Aerococcus viridans. Abnormal [facility] Bacteria identified Cx Nom (U) Enterococcus faecalis Abnormal [facility] Bacteria identified Cx Nom (U) Proteus mirabilis Abnormal [facility] Urine leukocyte esterase det ection by dipstickOrdered By: [facility] on 08-27-2024 Leukocyte esterase Test strip Ql (U) Negative Negative [facility] Urine pHOrdered By: [facility] on 08-27-2024 pH (U) 6.0 [pH] 5.0 - 8.0 [facility] Urine specific gravity measu rementOrdered By: [facility] on 08-27-2024 Specific gravity (U) [Rel density] 1.010 1.002-1.030 [facility] Urobilinogen Ql (U)Ordered B y: [facility] on 08-27-2024 Urine Urobilinogen Normal mg/dl Normal [facility] Urine cultureOrdered By: [facility] on 08-26-2024 Bacteria identified Cx Nom (U) Morganella morganii sp sibonii Abnormal [facility] Bacteria identified Cx Nom (U) Meth. resistant Staph. aureus Abnormal [facility] Bacteria identified Cx Nom (U) Aerococcus viridans. Abnormal [facility] Bacteria identified Cx Nom (U) Enterococcus faecalis Abnormal [facility] Bacteria identified Cx Nom (U) Proteus mirabilis Abnormal [facility] Albumin to globulin ratioOrd ered By: Evi Guevara on 08-21-2024 Albumin/Globulin [Mass ratio] 1.0 {ratio} 0.9-2.4 [facility] Bilirubin, totalOrdered By: Evi Guevara on 08-21-2024 Bilirubin [Mass/Vol] 0.40 mg/dL 0.20-1.00 [facility] Comment on above: For patients on eltr ombopag therapy, use of Dimension [place] TBIL is not recommended. Blood urea nitrogen (BUN)/cr eatinine ratioOrdered By: Evi Guevara on 08-21-2024 Urea nitrogen/Creatinine [Mass ratio] 25.8 mg/mg High 10-20 [facility] C-reactive protein measureme nt by high sensitivity methodOrdered By: Evi Guevara on 08-21-2024 C-Reactive Protein Extended Range < 2.90 mg/L 0.0-3.0 [facility] Comment on above: C-Reactive Protein ( CRP) provides useful information for thediagnosis, therapy and monitoring of inflammatory processesand associated diseases. For the evaluation of Relative Riskfor Cardiovascular Disease, a High Sensitivity CRP (HSCRP)should be ordered. CBC-Complete Blood Cnt No Di ffon 08-21-2024 Erythrocyte distribution width (RBC) [Ratio] 13.6 % Normal 11.6-14.6 [facility] Comment on above: Order Comment: GRETCHEN TER SPECIMEN Performed By: #### L 400.0001 #### [facility] [address] [place], [address] Hematocrit (Bld) [Volume fraction] 37.2 % Normal 37-47 [facility] Comment on above: Order Comment: GRETCHEN TER SPECIMEN Performed By: #### L 400.0001 #### [facility] [address] [place], [address] Hemoglobin (Bld) [Mass/Vol] 12.7 g/dL Normal 12.0-15.0 [facility] Comment on above: Order Comment: GRETCHEN TER SPECIMEN Performed By: #### L 400.0001 #### [facility] [address] [place], [address] MCH (RBC) [Entitic mass] 32.5 pg High 27.0-32.0 [facility] Comment on above: Order Comment: GRETCHEN TER SPECIMEN Performed By: #### L 400.0001 #### [facility] [address] [place], [address] MCHC (RBC) [Mass/Vol] 34.1 g/dL Normal 32-[address] [facility] Comment on above: Order Comment: GRETCHEN TER SPECIMEN Performed By: #### L 400.0001 #### [facility] [address] [place], [address] MCV (RBC) [Entitic vol] 95.1 fL Normal 81-99 [facility] Comment on above: Order Comment: GRETCHEN TER SPECIMEN Performed By: #### L 400.0001 #### [facility] [address] [place], [address] Platelet mean volume (Bld) [Entitic vol] 11.1 fL Normal 6.2-12.0 [facility] Comment on above: Order Comment: GRETCHEN TER SPECIMEN Performed By: #### L 400.0001 #### [facility] [address] [place], [address] Platelets (Bld) [#/Vol] 239 10*3/uL Normal 150-450 [facility] Comment on above: Order Comment: GRETCHEN TER SPECIMEN Performed By: #### L 400.0001 #### [facility] [address] [place], [address] RBC (Bld) [#/Vol] 3.91 10*6/uL Low 4.2-5.4 [facility] Comment on above: Order Comment: GRETCHEN TER SPECIMEN Performed By: #### L 400.0001 #### [facility] [address] [place], [address] RDW SD 47.3 fl High 35.1-43.9 [facility] Comment on above: Order Comment: GRETCHEN TER SPECIMEN Performed By: #### L 400.0001 #### [facility] [address] [place], [address] WBC (Bld) [#/Vol] 8.0 10*3/uL Normal 4.4-11.0 [facility] Comment on above: Order Comment: GRETCHEN TER SPECIMEN Performed By: #### L 400.0001 #### [facility] [address] [place], [address] CRPon 08-21-2024 C-REACTIVE PROT < 2.90 Normal 0.0-3.0 [facility] Comment on above: Order Comment: GRETCHEN TER SPECIMEN Result Comment: C-Re active Protein (CRP) provides useful information for the diagnosis, therapy and monitoring of inflammatory processes and associated diseases. For the evaluation of Relative Risk for Cardiovascular Disease, a High Sensitivity CRP (HSCRP) should be ordered. Performed By: #### L 400.0001 #### [facility] [address] [place], [address] Carbon dioxide measurementOr dered By: Evi Guevara on 08-21-2024 CO2 [Moles/Vol] 22.0 mmol/L 21.0-32.0 [facility] Chloride measurementOrdered By: Evi Guevara on 08-21-2024 Chloride [Moles/Vol] 110 mmol/L High 98-107 [facility] Comprehensive Metabolic Prof ilon 08-21-2024 Albumin [Mass/Vol] 3.0 g/dL Low 3.2-5.0 [facility] Comment on above: Order Comment: GRETCHEN TER SPECIMEN Performed By: #### L 400.0001 #### [facility] [address] [place], [address] Albumin/Globulin [Mass ratio] 1.0 {ratio} Normal 0.9-2.4 [facility] Comment on above: Order Comment: GRETCHEN TER SPECIMEN Performed By: #### L 400.0001 #### [facility] [address] [place], [address] ALK P 102 U/L Normal 45-117 [facility] Comment on above: Order Comment: GRETCHEN TER SPECIMEN Performed By: #### L 400.0001 #### [facility] [address] [place], [address] ALT [Catalytic activity/Vol] 13 U/L Normal 13-56 [facility] Comment on above: Order Comment: GRETCHEN TER SPECIMEN Performed By: #### L 400.0001 #### [facility] [address] [place], [address] AST [Catalytic activity/Vol] 20 U/L Normal 15-37 [facility] Comment on above: Order Comment: GRETCHEN TER SPECIMEN Result Comment: Slig ht Hemolysis, Result may be falsely increased. Performed By: #### L [id number] #### [facility] [address] [place], [address] Bilirubin [Mass/Vol] 0.40 mg/dL Normal 0.20-1.00 [facility] Comment on above: Order Comment: GRETCHEN TER SPECIMEN Result Comment: For patients on eltrombopag therapy, use of Dimension [place] TBIL is not recommended. Performed By: #### L [id number] #### [facility] [address] [place], [address] BUN/CRE 25.8 RATIO High 10-20 [facility] Comment on above: Order Comment: GRETCHEN TER SPECIMEN Performed By: #### L [id number] #### [facility] [address] [place], [address] CA,Total 8.7 mg/dL Normal 8.5-10.1 [facility] Comment on above: Order Comment: GRETCHEN TER SPECIMEN Performed By: #### L [id number] #### [facility] [address] [place], [address] Chloride [Moles/Vol] 110 mmol/L High 98-107 [facility] Comment on above: Order Comment: GRETCHEN TER SPECIMEN Performed By: #### L [id number] #### [facility] [address] [place], [address] CO2 [Moles/Vol] 22.0 mmol/L Normal 21.0-32.0 [facility] Comment on above: Order Comment: GRETCHEN TER SPECIMEN Performed By: #### L 400.0001 #### [facility] [address] [place], [address] Creatinine [Mass/Vol] 1.20 mg/dL High 0.55-1.[address] [facility] Comment on above: Order Comment: GRETCHEN TER SPECIMEN Result Comment: The validity of the calculated GFR GFRAA in patients over 70 years has not been determined. Clinical correlation is essential. Performed By: #### L [id number] #### [facility] [address] [place], [address] EST GFR - AA 56 mL/min Low >60 [facility] Comment on above: Order Comment: GRETCHEN TER SPECIMEN Result Comment: Afri can Cuban GFR Calc Performed By: #### L [id number] #### [facility] [address] [place], [address] GAP 7 Normal 5-15 [facility] Comment on above: Order Comment: GRETCHEN TER SPECIMEN Performed By: #### L 400.0001 #### [facility] [address] [place], [address] GFR/1.73 sq M.predicted among non-blacks MDRD (S/P/Bld) [Vol rate/Area] 46 mL/min/{1.73_m2} Low >60 [facility] Comment on above: Order Comment: GRETCHEN TER SPECIMEN Result Comment: Non- GFR Calc Performed By: #### L 400.0001 #### [facility] [address] [place], [address] Globulin (S) [Mass/Vol] 3.1 g/dL Normal 2.2-4.2 [facility] Comment on above: Order Comment: GRETCHEN TER SPECIMEN Performed By: #### L [id number] #### [facility] [address] [place], [address] Glucose [Mass/Vol] 129 mg/dL High 74-106 [facility] Comment on above: Order Comment: GRETCHEN TER SPECIMEN Result Comment: Fast ing Glucose result greater than or equal to 126 mg/dL suggests DIABETES MELLITUS per A.D.A. criteria. Performed By: #### L [id number] #### [facility] [address] [place], [address] Potassium [Moles/Vol] 4.4 mmol/L Normal 3.5-5.[address] [facility] Comment on above: Order Comment: GRETCHEN TER SPECIMEN Result Comment: Slig ht Hemolysis, Result may be falsely increased. Performed By: #### L [id number] #### [facility] [address] [place], [address] Sodium [Moles/Vol] 138 mmol/L Normal 136-145 [facility] Comment on above: Order Comment: GRETCHEN TER SPECIMEN Performed By: #### L [id number] #### [facility] [address] [place], [address] T PROT 6.1 g/dL Low 6.4-8.2 [facility] Comment on above: Order Comment: GRETCHEN TER SPECIMEN Performed By: #### L [id number] #### [facility] [address] [place], [address] Urea nitrogen [Mass/Vol] 31 mg/dL High 7-18 [facility] Comment on above: Order Comment: GRETCHEN TER SPECIMEN Performed By: #### L [id number] #### [facility] [address] [place], [address] Erythrocyte Sed Rateon 08-21 SED RATE 8 mm/hr Normal 0-30 [facility] Comment on above: Order Comment: GRETCHEN TER SPECIMEN Performed By: #### L [id number] #### [facility] [address] [place], [address] Erythrocyte distribution wid th ratioOrdered By: Evi Guevara on 08-21-2024 Erythrocyte distribution width (RBC) [Ratio] 13.6 % 11.6-14.6 [facility] Erythrocyte distribution wid th standard deviationOrdered By: Evi Guevara on 08-21-2024 Erythrocyte distribution width (RBC) [Entitic vol] 47.3 fL High 35.1-43.9 [facility] Erythrocyte sedimentation ra teOrdered By: Evi Guevara on 08-21-2024 ESR (Bld) [Velocity] 8 mm/h 0-30 [facility] Estimated glomerular filtrat ion rate (GFR) AmericanOrdered By: Evi Guevara on 08-21-2024 Estimated GFR (MDRD) Amer 56 mL/min Low >60 [facility] Comment on above: GFR Calc Glomerular filtration rate ( GFR) estimationOrdered By: Evi Guevara on 08-21-2024 Estimated GFR (MDRD) Non-Af Amer 46 mL/min Low >60 [facility] Comment on above: Non- GFR Calc Glucose measurementOrdered B y: Evi Guevara on 08-21-2024 Glucose [Mass/Vol] 129 mg/dL High 74-106 [facility] Comment on above: Fasting Glucose resu lt greater than or equal to 126 mg/dL suggests DIABETES MELLITUS per A.D.A. criteria. Hematocrit Auto (Bld) [Volum e fraction]Ordered By: Evi Guevara on 08-21-2024 Hematocrit (Bld) [Volume fraction] 37.2 % 37-47 [facility] Hemoglobin measurementOrdere d By: Evi Guevara on 08-21-2024 Hemoglobin (Bld) [Mass/Vol] 12.7 g/dL 12.0-15.0 [facility] - Chemistry and C hemistry - challengeOrdered By: Evi Guevara on 08-21-2024 AST [Catalytic activity/Vol] 20 U/L 15-37 [facility] Comment on above: Slight Hemolysis, Re sult may be falsely increased. MCV (mean corpuscular volume ) determinationOrdered By: Evi Guevara on 08-21-2024 MCV (RBC) [Entitic vol] 95.1 fL 81-99 [facility] Mean corpuscular hemoglobin (MCH) determinationOrdered By: Evi Guevara on 08-21-2024 MCH (RBC) [Entitic mass] 32.5 pg High 27.0-32.0 [facility] Mean corpuscular hemoglobin concentration (MCHC) determinationOrdered By: Evi Guevara on 08-21-2024 MCHC (RBC) [Mass/Vol] 34.1 g/dL 32-[address] [facility] Mean platelet volume determi nationOrdered By: Evi Guevara on 08-21-2024 Platelet mean volume (Bld) [Entitic vol] 11.1 fL 6.2-12.0 [facility] Platelet countOrdered By: Ari Licea on 08-21-2024 Platelets (Bld) [#/Vol] 239 10*3/uL 150-450 [facility] Potassium measurementOrdered By: Evi Guevara on 08-21-2024 Potassium [Moles/Vol] 4.4 mmol/L 3.5-5.[address] [facility] Comment on above: Slight Hemolysis, Re sult may be falsely increased. RBC Auto (Bld) [#/Vol]Ordere d By: Evi Guevara on 08-21-2024 RBC (Bld) [#/Vol] 3.91 10*6/uL Low 4.2-5.4 [facility] Serum anion gap measurementO rdered By: Evi Guevara on 08-21-2024 Anion gap [Moles/Vol] 7 mmol/L 5-[address] [facility] Serum globulin measurementOr dered By: Evi Guevara on 08-21-2024 Globulin (S) [Mass/Vol] 3.1 g/dL 2.2-4.2 [facility] Serum or plasma alanine barajas otransferase (ALT) measurementOrdered By: Evi Guevara on 08-21-2024 ALT [Catalytic activity/Vol] 13 U/L 13-56 [facility] Serum or plasma albumin jeffrey urement (mass/volume)Ordered By: Evi Guevara on 08-21-2024 Albumin [Mass/Vol] 3.0 g/dL Low 3.2-5.0 [facility] Serum or plasma alkaline aisha sphatase measurementOrdered By: Evi Guevara on 08-21-2024 ALP [Catalytic activity/Vol] 102 U/L 45-117 [facility] Serum or plasma calcium jeffrey urement (mass/volume)Ordered By: Evi Guevara on 08-21-2024 Calcium [Mass/Vol] 8.7 mg/dL 8.5-10.1 [facility] Serum or plasma creatinine m easurement (mass/volume)Ordered By: Evi Guevara on 08-21-2024 Creatinine [Mass/Vol] 1.20 mg/dL High 0.55-1.[address] [facility] Comment on above: The validity of the calculated GFR & GFRAA in patients over 70 years has not been determined. Clinical correlation is essential. Serum or plasma urea nitroge n measurement (mass/volume)Ordered By: Evi Guevara on 08-21-2024 Urea nitrogen [Mass/Vol] 31 mg/dL High 7-18 [facility] Sodium levelOrdered By: Christian Guevara on 08-21-2024 Sodium [Moles/Vol] 138 mmol/L 136-145 [facility] TSH QnOrdered By: Evi perry on 08-21-2024 Thyroid Stimulating Hormone (TSH) 4.910 uIU/mL High 0.358-3.740 [facility] Thyroid Stim Hormone (TSH)on 08-21-2024 TSH 4.910 uIU/mL High 0.358-3.740 [facility] Comment on above: Order Comment: GRETCHEN TER SPECIMEN Performed By: #### L [id number] #### [facility] [address] [place], [address] Total proteinOrdered By: Mark Guevara on 08-21-2024 Protein [Mass/Vol] 6.1 g/dL Low 6.4-8.2 [facility] Vitamin B12on 08-21-2024 Cobalamin (Vitamin B12) [Mass/Vol] 278 pg/mL Normal 211-911 [facility] Comment on above: Order Comment: GRETCHEN TER SPECIMEN Performed By: #### L [id number] #### [facility] [address] [place], [place], [id number] Vitamin B12 measurementOrder ed By: Evi Guevara on 08-21-2024 Cobalamin (Vitamin B12) [Mass/Vol] 278 pg/mL 211-911 [facility] White blood cell (WBC) count Ordered By: Evi Guevara on 08-21-2024 WBC (Bld) [#/Vol] 8.0 10*3/uL 4.4-11.0 [facility] CNOVon 08-18-2024 CNOV Office Visit ([facility] ) CARLINE VILLARREAL ([id number]) 1945 F Date Time Provider Department 08/18/24 1:00 PM ANGELINA TRUJILLO [facility] During your visit today, we recorded the following information about you: Pulse Blood pressure 58/minute 145/77 Angelina Trujillo PA-C 08/18/2024 2:20 PM Signed [facility] Date: August 18, 2024 Patient Name: Carline Villarreal Referring physician: No referring provider defined for this encounter. Primary physician: none Reason for Evaluation: Headaches Subjective HPI Carline Villarreal is a 78 year old female who presents for evaluation of headache. Chart review: Seen on 12/16/23 for headache at [facility], lives in nursing facility. Noting hx of migraines. Hx of previous stroke in 2016 and some residual weakness left sided from this. On ASA and thinners. Last LDL was 58. Patient presents with her son and [id number] for evaluation of worsening headaches. History is limited due to baseline confusion and patient does live at assisted living. Family notes that they have been told her headaches have worsened, states that she is complaining of them more frequently and wincing in pain. Notes chronic history of migraines for many years and has been on many therapies in the past including Imitrex for abortive relief. Family does believe that she is still on this, does have history of stroke in the past with some residual left-sided weakness. Unclear of any new medications or recent falls. Patient reports she fell a few weeks ago but family states this did not occur. Patient describing frontal headaches with associated sensitive to light, nausea and occasional vomiting. No vision loss or vision changes, no jaw claudication. Family notes that she is currently on gabapentin 300 mg twice daily for headache management, that she has been on this for many years without any changes. Is currently on Cymbalta for depression. Current Headache treatment Preventative: Cymbalta 30 mg, gabapentin 300 mg twice daily Abortive: Imitrex Previous imaging: MRI brain 12/17/23 Impression 1. No acute infarct. 2. 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 3. Cerebral volume loss. 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 CTA head and neck 12/16/[address] Head: * No acute intracranial abnormality. 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 CTA Neck: * Less than 50% right ICA stenosis. 0% left ICA stenosis. * No significant vertebral artery stenosis. CTA head: * Multifocal intracranial atherosclerotic disease. * Moderate stenoses of the intracranial ICAs bilaterally. 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 Age is indeterminate, but possibly chronic given encephalomalacia in the right parietal lobe. 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 Previous Medications: Gabapentin Cymbalta Lisinopril Metoprolol Imitrex Percocet TPM Lexapro Headache Description Onset: chronic Total headache days per month: 4-8 Total headache attacks per month: 4-8 Headache free days: Yes Duration of attacks: half hour to hours Severity of headaches? Severe Onset to Peak: unsure Location: front . Aura: None Prodrome:none. Accompanying symptoms: photophobia, phonophobia, nausea and vomiting. Quality:throbbing. Worse with activity: No Triggers: foods (candy). Cough/sneeze/valsalva as trigger: sometimes Positional changes: No Most common time of day for headache to begin:early AM. Risk Factors History of Motor Vehicle Accident: No History of Traumatic Brain Injury and/or Concussion: Yes, has had a lot of falls (last six months) History of severe infection: No History of Syncope: No Obesity: No, Family History Migraine or other headaches in the family: sister, brother Aneurysms in a first degree relative: No Brain tumors in the family: No ROS Review of Systems CONSTITUTIONAL: No reported fevers, chills, night sweats, or significant unintentional weight loss. EYES: No visual changes indicated. No eye pain or orbital swelling reported. HEENT: No hearing changes or vertiginous symptoms indicated. No history of nose bleeds reported. RESPIRATORY: No reported cough, wheezing and dyspnea. CARDIOVASCULAR: Negative for significant chest pain, and palpitations per report. GI: Negative for significant abdominal discomfort, blood in stools or black stools reported. No recent reported change in bowel habits. : No reported history of incontinence. No dark/cola colored urine reported. MUSCLOSKELETAL: No history of significant joint pain or swelling, or myalgias reported. SKIN: Negative for pertine (more content not included)... Normal [facility] Urine Cultureon 08-03-2024 [facility] STRAIGHT CATH Proteus mirabilis Minerva Count 50,000-80,000 Proteus mirabilis: REACTION Ampicillin Islt THI <=2 Ampicillin+Sulbac Islt THI <=2 S Cefepime Islt THI <=0.12 S cefTRIAXone Islt THI <=0.25 S Ciprofloxacin Islt THI >=4 R Gentamicin Islt THI <=1 S levoFLOXacin Islt THI >=8 R Meropenem Islt THI <=0.25 S Nitrofurantoin Islt THI 128 R Pip+Tazo Islt HTI <=4 S TMP SMX Islt THI <=20 S Normal [facility] Comment on above: Performed By: #### L 400.0001, M1.0 #### [facility] [address] [place], [place], [id number] Urinalysis, Completeon 08-01 BACTERIA 2+ /hpf Normal None Seen [facility] Comment on above: Order Comment: STRAI GHT CATH CATHETER SPECIMEN Result Comment: AMENDED REPORT 08/01/24 1051 BACTERIA previously reported as: 0 SEEN /hpf Performed By: #### L 400.0001, M100.0 #### [facility] [address] [place], [place], [id number] RBC 0-5 SEEN Normal 0-5 [facility] Comment on above: Order Comment: STRAI GHT CATH CATHETER SPECIMEN Result Comment: AMENDED REPORT 08/01/24 1050 RBC-UA previously reported as: 0 SEEN /hpf Performed By: #### L 400.0001, M100.2200 #### [facility] [address] [place], [place], [id number] WBC 0-5 SEEN Normal 0-5 [facility] Comment on above: Order Comment: STRAI T CATH CATHETER SPECIMEN Result Comment: AMENDED REPORT 08/01/24 1050 WBC previously reported as: 0 SEEN /hpf Performed By: #### L 400.0001, M100.2200 #### [facility] [address] [place], [place], [id number] Bilirubin Test strip Ql (U)O rdered By: Evi Guevara on 07-31-2024 Bilirubin Ql (U) Negative Negative [facility] Epithelial cells.squamous LM Ql (Urine sed)Ordered By: Evi Guevara on 07-31-2024 Epithelial cells.squamous LM.HPF (Urine sed) [#/Area] 0 /[HPF] 5-10 [facility] Glucose Ql (U)Ordered By: Ari Licea on 07-31-2024 Urine Glucose (UA) Normal mg/dl Normal [facility] Ketones Test strip Ql (U)Ord ered By: Evi Guevara on 07-31-2024 Ketones Ql (U) Negative Negative [facility] Microscopic analysis of urin e for red blood cells (RBC)Ordered By: Evi Guevara on 07-31-2024 Urine RBC 0-5 SEEN /hpf 0-5 [facility] Comment on above: Previous reported re sult: 0 SEEN /hpfEdited by: OLEG on 08/01/24:1050 AMENDED REPORT 08/01/24 1050 RBC-UA previously reported as: 0 SEEN /hpf Mucus LM Ql (Urine sed)Order ed By: Evi Guevara on 07-31-2024 Mucus Ql (Urine sed) 0 SEEN /hpf [facility] Nitrite Test strip Ql (U)Ord ered By: Evi Guevara on 07-31-2024 Nitrite Ql (U) Negative Negative [facility] Protein Test strip Ql (U)Ord ered By: Evi Guevara on 07-31-2024 Protein Ql (U) Negative Negative [facility] Urine blood detectionOrdered By: Evi Guevara on 07-31-2024 Urine Occult Blood 50 /ul High Negative [facility] Urine clarityOrdered By: Mark Guevara on 07-31-2024 Clarity (U) Clear Clear [facility] Urine color determinationOrd ered By: Evi Guevara on 07-31-2024 Color (U) Straw Yellow [facility] Urine cultureOrdered By: Mark Guevara on 07-31-2024 Bacteria identified Cx Nom (U) Proteus mirabilis Abnormal [facility] Bacteria identified Cx Nom (U) Proteus mirabilis Abnormal [facility] Urine leukocyte esterase det ection by dipstickOrdered By: Evi Guevara on 07-31-2024 Leukocyte esterase Test strip Ql (U) 500 /ul High Negative [facility] Urine pHOrdered By: Evi gillette on 07-31-2024 pH (U) 7.0 [pH] 5.0 - 8.0 [facility] Urine sediment bacteria coun t by microscopy (number/high power field)Ordered By: Evi Guevara on 07-31-2024 Bacteria LM.HPF (Urine sed) [#/Area] 2 /[HPF] None Seen [facility] Comment on above: Previous reported re sult: 0 SEEN /hpfEdited by: OLEG on 08/01/24:1051 AMENDED REPORT 08/01/24 1051 BACTERIA previously reported as: 0 SEEN /hpf Urine specific gravity measu rementOrdered By: Evi Guevara on 07-31-2024 Specific gravity (U) [Rel density] 1.005 1.002-1.030 [facility] Urobilinogen Ql (U)Ordered B y: Evi Guevara on 07-31-2024 Urine Urobilinogen Normal mg/dl Normal [facility] White blood cell countOrdere d By: Evi Guevara on 07-31-2024 Urine WBC 0-5 SEEN /hpf 0-5 [facility] Comment on above: Previous reported re sult: 0 SEEN /hpfEdited by: OLEG on 08/01/24:1050 AMENDED REPORT 08/01/24 1050 WBC previously reported as: 0 SEEN /hpf Basic Metabolic Profile (BMP )on 07-13-2024 BUN/CRE 25.5 RATIO High 10-20 [facility] Comment on above: Order Comment: 305-1 Performed By: #### L 100.0500, L500.2500 #### [facility] [address] [place], [address] CA,Total 8.9 mg/dL Normal 8.5-10.1 [facility] Comment on above: Order Comment: 305-1 Performed By: #### L 100.0500, L500.2500 #### [facility] [address] [place], [address] Chloride [Moles/Vol] 109 mmol/L High 98-107 [facility] Comment on above: Order Comment: 305-1 Performed By: #### L 100.0500, L500.2500 #### [facility] [address] [place], [place], [address] CO2 [Moles/Vol] 27.0 mmol/L Normal 21.0-32.0 [facility] Comment on above: Order Comment: 305-1 Performed By: #### L 100.0500, L500.2500 #### [facility] [address] [place], [address] Creatinine [Mass/Vol] 1.37 mg/dL High 0.55-1.[address] [facility] Comment on above: Order Comment: 305-1 Result Comment: The validity of the calculated GFR GFRAA in patients over 70 years has not been determined. Clinical correlation is essential. Performed By: #### L 100.0500, L500.2500 #### [facility] [address] [place], [address] EST GFR - AA 48 mL/min Low >60 [facility] Comment on above: Order Comment: 305-1 Result Comment: Afri can Cuban GFR Calc Performed By: #### L 100.0500, L500.2500 #### [facility] [address] [place], [address] GAP 5 Normal 5-15 [facility] Comment on above: Order Comment: 305-1 Performed By: #### L 100.0500, L500.2500 #### [facility] [address] [place], [address] GFR/1.73 sq M.predicted among non-blacks MDRD (S/P/Bld) [Vol rate/Area] 40 mL/min/{1.73_m2} Low >60 [facility] Comment on above: Order Comment: 305- Result Comment: Non- GFR Calc Performed By: #### L 100.0500, L500.2500 #### [facility] [address] [place], [address] Glucose [Mass/Vol] 133 mg/dL High 74-106 [facility] Comment on above: Order Comment: 305- Result Comment: Fast ing Glucose result greater than or equal to 126 mg/dL suggests DIABETES MELLITUS per A.D.A. criteria. Performed By: #### L 100.0500, L500.2500 #### [facility] [address] [place], [address] Potassium [Moles/Vol] 3.9 mmol/L Normal 3.5-5.[address] [facility] Comment on above: Order Comment: 305-1 Performed By: #### L 100.0500, L500.2500 #### [facility] [address] [place], [address] Sodium [Moles/Vol] 142 mmol/L Normal 136-145 [facility] Comment on above: Order Comment: 305-1 Performed By: #### L 100.0500, L500.2500 #### [facility] [address] [place], [address] Urea nitrogen [Mass/Vol] 35 mg/dL High 7-18 [facility] Comment on above: Order Comment: 305-1 Performed By: #### L 100.0500, L500.2500 #### [facility] [address] [place], [address] Blood urea nitrogen (BUN)/cr eatinine ratioOrdered By: Evi Guevara on 07-13-2024 Urea nitrogen/Creatinine [Mass ratio] 25.5 mg/mg High 10-20 [facility] CBC-Complete Blood Cnt No Di ffon 07-13-2024 Erythrocyte distribution width (RBC) [Ratio] 13.8 % Normal 11.6-14.6 [facility] Comment on above: Order Comment: 305-1 Performed By: #### L 100.0500, L500.2500 #### [facility] [address] [place], [address] Hematocrit (Bld) [Volume fraction] 38.5 % Normal 37-47 [facility] Comment on above: Order Comment: 305-1 Performed By: #### L 100.0500, L500.2500 #### [facility] [address] [place], [address] Hemoglobin (Bld) [Mass/Vol] 12.6 g/dL Normal 12.0-15.0 [facility] Comment on above: Order Comment: 305-1 Performed By: #### L 100.0500, L500.2500 #### [facility] [address] [place], [address] MCH (RBC) [Entitic mass] 31.1 pg Normal 27.0-32.0 [facility] Comment on above: Order Comment: 305-1 Performed By: #### L 100.0500, L500.2500 #### [facility] [address] [place], [address] MCHC (RBC) [Mass/Vol] 32.7 g/dL Normal 32-[address] [facility] Comment on above: Order Comment: 305-1 Performed By: #### L 100.0500, L500.2500 #### [facility] [address] [place], [address] MCV (RBC) [Entitic vol] 95.1 fL Normal 81-99 [facility] Comment on above: Order Comment: 305-1 Performed By: #### L 100.0500, L500.2500 #### [facility] [address] [place], [address] Platelet mean volume (Bld) [Entitic vol] 11.1 fL Normal 6.2-12.0 [facility] Comment on above: Order Comment: 305-1 Performed By: #### L 100.0500, L500.2500 #### [facility] [address] [place], [address] Platelets (Bld) [#/Vol] 220 10*3/uL Normal 150-450 [facility] Comment on above: Order Comment: 305-1 Performed By: #### L 100.0500, L500.2500 #### [facility] [address] [place], [address] RBC (Bld) [#/Vol] 4.05 10*6/uL Low 4.2-5.4 [facility] Comment on above: Order Comment: 305-1 Performed By: #### L 100.0500, L500.2500 #### [facility] [address] [place], [address] RDW SD 48.0 fl High 35.1-43.9 [facility] Comment on above: Order Comment: 305-1 Performed By: #### L 100.0500, L500.2500 #### [facility] [address] [place], [address] WBC (Bld) [#/Vol] 6.8 10*3/uL Normal 4.4-11.0 [facility] Comment on above: Order Comment: 305-1 Performed By: #### L 100.0500, L500.2500 #### [facility] [place], [address] Carbon dioxide measurementOr dered By: Evi Guevara on 07-13-2024 CO2 [Moles/Vol] 27.0 mmol/L 21.0-32.0 [facility] Chloride measurementOrdered By: Evi Guevara on 07-13-2024 Chloride [Moles/Vol] 109 mmol/L High 98-107 [facility] Erythrocyte distribution wid th ratioOrdered By: Evi Guevara on 07-13-2024 Erythrocyte distribution width (RBC) [Ratio] 13.8 % 11.6-14.6 [facility] Erythrocyte distribution wid th standard deviationOrdered By: Evi Guevara on 07-13-2024 Erythrocyte distribution width (RBC) [Entitic vol] 48.0 fL High 35.1-43.9 [facility] Estimated glomerular filtrat ion rate (GFR) AmericanOrdered By: Evi Guevara on 07-13-2024 Estimated GFR (MDRD) Amer 48 mL/min Low >60 [facility] Comment on above: GFR Calc Glomerular filtration rate ( GFR) estimationOrdered By: Evi Guevara on 07-13-2024 Estimated GFR (MDRD) Non-Af Amer 40 mL/min Low >60 [facility] Comment on above: Non- GFR Calc Glucose measurementOrdered B y: Evi Guevara on 07-13-2024 Glucose [Mass/Vol] 133 mg/dL High 74-106 [facility] Comment on above: Fasting Glucose resu lt greater than or equal to 126 mg/dL suggests DIABETES MELLITUS per A.D.A. criteria. Hematocrit Auto (Bld) [Volum e fraction]Ordered By: Evi Guevara on 07-13-2024 Hematocrit (Bld) [Volume fraction] 38.5 % 37-47 [facility] Hemoglobin measurementOrdere d By: Evi Guevara on 07-13-2024 Hemoglobin (Bld) [Mass/Vol] 12.6 g/dL 12.0-15.0 [facility] MCV (mean corpuscular volume ) determinationOrdered By: Evi Guevara on 07-13-2024 MCV (RBC) [Entitic vol] 95.1 fL 81-99 [facility] Mean corpuscular hemoglobin (MCH) determinationOrdered By: Evi Guevara on 07-13-2024 MCH (RBC) [Entitic mass] 31.1 pg 27.0-32.0 [facility] Mean corpuscular hemoglobin concentration (MCHC) determinationOrdered By: Evi Guevara on 07-13-2024 MCHC (RBC) [Mass/Vol] 32.7 g/dL 32-[address] [facility] Mean platelet volume determi nationOrdered By: Evi Guevara on 07-13-2024 Platelet mean volume (Bld) [Entitic vol] 11.1 fL 6.2-12.0 [facility] Platelet countOrdered By: Ari Licea on 07-13-2024 Platelets (Bld) [#/Vol] 220 10*3/uL 150-450 [facility] Potassium measurementOrdered By: Evi Guevara on 07-13-2024 Potassium [Moles/Vol] 3.9 mmol/L 3.5-5.[address] [facility] RBC Auto (Bld) [#/Vol]Ordere d By: Evi Guevara on 07-13-2024 RBC (Bld) [#/Vol] 4.05 10*6/uL Low 4.2-5.4 [facility] Serum anion gap measurementO rdered By: Evi Guevara on 07-13-2024 Anion gap [Moles/Vol] 5 mmol/L 5-[address] [facility] Serum or plasma calcium jeffrey urement (mass/volume)Ordered By: Evi Guevara on 07-13-2024 Calcium [Mass/Vol] 8.9 mg/dL 8.5-10.1 [facility] Serum or plasma creatinine m easurement (mass/volume)Ordered By: Evi Guevara on 07-13-2024 Creatinine [Mass/Vol] 1.37 mg/dL High 0.55-1.[address] [facility] Comment on above: The validity of the calculated GFR & GFRAA in patients over 70 years has not been determined. Clinical correlation is essential. Serum or plasma urea nitroge n measurement (mass/volume)Ordered By: Evi Guevara on 07-13-2024 Urea nitrogen [Mass/Vol] 35 mg/dL High 7-18 [facility] Sodium levelOrdered By: Christian Guevara on 07-13-2024 Sodium [Moles/Vol] 142 mmol/L 136-145 [facility] White blood cell (WBC) count Ordered By: Evi Guevara on 07-13-2024 WBC (Bld) [#/Vol] 6.8 10*3/uL 4.4-11.0 [facility] Basic Metabolic Profile (BMP )on 06-12-2024 BUN/CRE 35.0 RATIO High 10-20 [facility] Comment on above: Order Comment: GRETCHEN TER SPECIMEN Performed By: #### L 400.0001 #### [facility] [address] [place], [address] CA,Total 9.0 mg/dL Normal 8.5-10.1 [facility] Comment on above: Order Comment: GRETCHEN TER SPECIMEN Performed By: #### L 400.0001 #### [facility] [address] [place], [address] Chloride [Moles/Vol] 108 mmol/L High 98-107 [facility] Comment on above: Order Comment: GRETCHEN TER SPECIMEN Performed By: #### L 400.0001 #### [facility] [address] [place], [address] CO2 [Moles/Vol] 28.0 mmol/L Normal 21.0-32.0 [facility] Comment on above: Order Comment: GRETCHEN TER SPECIMEN Performed By: #### L 400.0001 #### [facility] [address] [place], [address] Creatinine [Mass/Vol] 1.40 mg/dL High 0.55-1.[address] [facility] Comment on above: Order Comment: GRETCHEN TER SPECIMEN Result Comment: The validity of the calculated GFR GFRAA in patients over 70 years has not been determined. Clinical correlation is essential. Performed By: #### L 400.0001 #### [facility] [address] [place], [address] EST GFR - AA 47 mL/min Low >60 [facility] Comment on above: Order Comment: GRETCHEN TER SPECIMEN Result Comment: Afri can Cuban GFR Calc Performed By: #### L 400.0001 #### [facility] [address] [place], [address] GAP 4 Low 5-15 [facility] Comment on above: Order Comment: GRETCHEN TER SPECIMEN Performed By: #### L 400.0001 #### [facility] [address] [place], [address] GFR/1.73 sq M.predicted among non-blacks MDRD (S/P/Bld) [Vol rate/Area] 39 mL/min/{1.73_m2} Low >60 [facility] Comment on above: Order Comment: GRETCHEN TER SPECIMEN Result Comment: Non- GFR Calc Performed By: #### L 400.0001 #### [facility] [address] [place], [address] Glucose [Mass/Vol] 136 mg/dL High 74-106 [facility] Comment on above: Order Comment: GRETCHEN TER SPECIMEN Result Comment: Fast ing Glucose result greater than or equal to 126 mg/dL suggests DIABETES MELLITUS per A.D.A. criteria. Performed By: #### L 400.0001 #### [facility] [address] [place], [address] Potassium [Moles/Vol] 3.8 mmol/L Normal 3.5-5.[address] [facility] Comment on above: Order Comment: GRETCHEN TER SPECIMEN Performed By: #### L 400.0001 #### [facility] [address] [place], [address] Sodium [Moles/Vol] 140 mmol/L Normal 136-145 [facility] Comment on above: Order Comment: GRETCHEN TER SPECIMEN Performed By: #### L 400.0001 #### [facility] [address] [place], [address] Urea nitrogen [Mass/Vol] 49 mg/dL High 7-18 [facility] Comment on above: Order Comment: GRETCHEN TER SPECIMEN Performed By: #### L 400.0001 #### [facility] [address] [place], [address] Blood urea nitrogen (BUN)/cr eatinine ratioOrdered By: Evi Guevara on 06-12-2024 Urea nitrogen/Creatinine [Mass ratio] 35.0 mg/mg High 10-20 [facility] CBC-Complete Blood Cnt No Di ffon 06-12-2024 Erythrocyte distribution width (RBC) [Ratio] 13.2 % Normal 11.6-14.6 [facility] Comment on above: Order Comment: GRETCHEN TER SPECIMEN Performed By: #### L 400.0001 #### [facility] [address] [place], [address] Hematocrit (Bld) [Volume fraction] 40.0 % Normal 37-47 [facility] Comment on above: Order Comment: GRETCHEN TER SPECIMEN Performed By: #### L 400.0001 #### [facility] [address] [place], [address] Hemoglobin (Bld) [Mass/Vol] 13.2 g/dL Normal 12.0-15.0 [facility] Comment on above: Order Comment: GRETCHEN TER SPECIMEN Performed By: #### L 400.0001 #### [facility] [address] [place], [address] MCH (RBC) [Entitic mass] 31.8 pg Normal 27.0-32.0 [facility] Comment on above: Order Comment: GRETCHEN TER SPECIMEN Performed By: #### L 400.0001 #### [facility] [address] [place], [address] MCHC (RBC) [Mass/Vol] 33.0 g/dL Normal 32-[address] [facility] Comment on above: Order Comment: GRETCHEN TER SPECIMEN Performed By: #### L 400.0001 #### [facility] [address] [place], [address] MCV (RBC) [Entitic vol] 96.4 fL Normal 81-99 [facility] Comment on above: Order Comment: GRETCHEN TER SPECIMEN Performed By: #### L 400.0001 #### [facility] [address] [place], [address] Platelet mean volume (Bld) [Entitic vol] 11.7 fL Normal 6.2-12.0 [facility] Comment on above: Order Comment: GRETCHEN TER SPECIMEN Performed By: #### L 400.0001 #### [facility] [address] [place], [address] Platelets (Bld) [#/Vol] 225 10*3/uL Normal 150-450 [facility] Comment on above: Order Comment: GRETCHEN TER SPECIMEN Performed By: #### L 400.0001 #### [facility] [address] [place], [address] RBC (Bld) [#/Vol] 4.15 10*6/uL Low 4.2-5.4 [facility] Comment on above: Order Comment: GRETCHEN TER SPECIMEN Performed By: #### L 400.0001 #### [facility] [address] [place], [address] RDW SD 46.8 fl High 35.1-43.9 [facility] Comment on above: Order Comment: GRETCHEN TER SPECIMEN Performed By: #### L 400.0001 #### [facility] [address] [place], [address] WBC (Bld) [#/Vol] 8.1 10*3/uL Normal 4.4-11.0 [facility] Comment on above: Order Comment: GRETCHEN TER SPECIMEN Performed By: #### L 400.0001 #### [facility] [place], [address] Carbon dioxide measurementOr dered By: Evi Guevara on 06-12-2024 CO2 [Moles/Vol] 28.0 mmol/L 21.0-32.0 [facility] Chloride measurementOrdered By: Evi Guevara on 06-12-2024 Chloride [Moles/Vol] 108 mmol/L High 98-107 [facility] Erythrocyte distribution wid th ratioOrdered By: Evi Guevara on 06-12-2024 Erythrocyte distribution width (RBC) [Ratio] 13.2 % 11.6-14.6 [facility] Erythrocyte distribution wid th standard deviationOrdered By: Evi Guevara on 06-12-2024 Erythrocyte distribution width (RBC) [Entitic vol] 46.8 fL High 35.1-43.9 [facility] Estimated glomerular filtrat ion rate (GFR) AmericanOrdered By: Evi Guevara on 06-12-2024 Estimated GFR (MDRD) Amer 47 mL/min Low >60 [facility] Comment on above: GFR Calc Glomerular filtration rate ( GFR) estimationOrdered By: Evi Guevara on 06-12-2024 Estimated GFR (MDRD) Non-Af Amer 39 mL/min Low >60 [facility] Comment on above: Non- GFR Calc Glucose measurementOrdered B y: Evi Guevara on 06-12-2024 Glucose [Mass/Vol] 136 mg/dL High 74-106 [facility] Comment on above: Fasting Glucose resu lt greater than or equal to 126 mg/dL suggests DIABETES MELLITUS per A.D.A. criteria. Hematocrit Auto (Bld) [Volum e fraction]Ordered By: Evi Guevara on 06-12-2024 Hematocrit (Bld) [Volume fraction] 40.0 % 37-47 [facility] Hemoglobin measurementOrdere d By: Evi Guevara on 06-12-2024 Hemoglobin (Bld) [Mass/Vol] 13.2 g/dL 12.0-15.0 [facility] MCV (mean corpuscular volume ) determinationOrdered By: Evi Guevara on 06-12-2024 MCV (RBC) [Entitic vol] 96.4 fL 81-99 [facility] Mean corpuscular hemoglobin (MCH) determinationOrdered By: Evi Guevara on 06-12-2024 MCH (RBC) [Entitic mass] 31.8 pg 27.0-32.0 [facility] Mean corpuscular hemoglobin concentration (MCHC) determinationOrdered By: Evi Guevara on 06-12-2024 MCHC (RBC) [Mass/Vol] 33.0 g/dL 32-[address] [facility] Mean platelet volume determi nationOrdered By: Evi Guevara on 06-12-2024 Platelet mean volume (Bld) [Entitic vol] 11.7 fL 6.2-12.0 [facility] Platelet countOrdered By: Ari Licea on 06-12-2024 Platelets (Bld) [#/Vol] 225 10*3/uL 150-450 [facility] Potassium measurementOrdered By: Evi Guevara on 06-12-2024 Potassium [Moles/Vol] 3.8 mmol/L 3.5-5.[address] [facility] RBC Auto (Bld) [#/Vol]Ordere d By: Evi Guevara on 06-12-2024 RBC (Bld) [#/Vol] 4.15 10*6/uL Low 4.2-5.4 [facility] Serum anion gap measurementO rdered By: Evi Guevara on 06-12-2024 Anion gap [Moles/Vol] 4 mmol/L Low 5-[address] [facility] Serum or plasma calcium jeffrey urement (mass/volume)Ordered By: Evi Guevara on 06-12-2024 Calcium [Mass/Vol] 9.0 mg/dL 8.5-10.1 [facility] Serum or plasma creatinine m easurement (mass/volume)Ordered By: Evi Guevara on 06-12-2024 Creatinine [Mass/Vol] 1.40 mg/dL High 0.55-1.[address] [facility] Comment on above: The validity of the calculated GFR & GFRAA in patients over 70 years has not been determined. Clinical correlation is essential. Serum or plasma urea nitroge n measurement (mass/volume)Ordered By: Evi Guevara on 06-12-2024 Urea nitrogen [Mass/Vol] 49 mg/dL High 7-18 [facility] Sodium levelOrdered By: Christian Guevara on 06-12-2024 Sodium [Moles/Vol] 140 mmol/L 136-145 [facility] White blood cell (WBC) count Ordered By: Evi Guevara on 06-12-2024 WBC (Bld) [#/Vol] 8.1 10*3/uL 4.4-11.0 [facility] Hemoglobin A1con 03-27-2024 HbA1c (Bld) [Mass fraction] 5.4 % Normal 3.8-5.6 [facility] Comment on above: Order Comment: Result Comment: Norm al < 5.7 % Prediabetic 5.7 - 6.4 % Diabetic >or= 6.5 % Please note range changes. Performed By: #### L 100.0500, L500.2500 #### [facility] [address] [place], [address] Lipid Profileon 03-27-2024 Cholesterol [Mass/Vol] 122 mg/dL Normal 200 [facility] Comment on above: Order Comment: Result Comment: <200 mg/dL Desirable 200-240 mg/dL Borderline >240 mg/dL High Risk Performed By: #### L 100.0500, L500.2500 #### [facility] [address] [place], [address] Cholesterol in HDL [Mass/Vol] 42 mg/dL Normal [facility] Comment on above: Order Comment: Result Comment: The drugs N-Acetylcysteine and Metamizole may falsely depress this assay. Reference Range HDL <40 mg/dL Low HDL Cholesterol HDL >or= 60 mg/dL High HDL Cholesterol Performed By: #### L 100.0500, L500.2500 #### [facility] [address] [place], [address] Cholesterol in LDL [Mass/Vol] 55 mg/dL Normal 0-130 [facility] Comment on above: Order Comment: 3051 Performed By: #### L 100.0500, L500.2500 #### [facility] [address] [place], [address] Cholesterol in VLDL [Mass/Vol] 25 mg/dL Normal 5-40 [facility] Comment on above: Order Comment: Performed By: #### L 100.0500, L500.2500 #### [facility] [address] [place], [address] Triglyceride [Mass/Vol] 126 mg/dL Normal [facility] Comment on above: Order Comment: Result Comment: The drugs N-Acetylcysteine and Metamizole may falsely depress this assay. Serum Triglycerides Reference Interval Normal <150 mg/dL Borderline high 150 - 199 mg/dL High 200 - 499 mg/dL Very High > or = 500 mg/dL Performed By: #### L 100.0500, L500.2500 #### [facility] [address] [place], [address] Thyroid Stim Hormone (TSH)on 03-27-2024 TSH 2.620 uIU/mL Normal 0.358-3.740 [facility] Comment on above: Order Comment: Performed By: #### L 100.0500, L500.2500 #### [facility] [address] [place], [address] Vitamin D,25 Hydroxyon 03-27 Vitamin D 25-OH 45.0 ng/mL Normal [facility] Comment on above: Order Comment: Result Comment: Kati min D 25(OH) Status Range Deficiency <20 ng/mL (50nmol/L) Insufficiency 20 - 30 ng/mL (50 - 75 nmol/L) Sufficiency 30 - 100 ng/mL (75 - 250 nmol/L) Toxicity >100 ng/mL (>250 nmol/L) Performed By: #### L 100.0500, L500.2500 #### [facility] [address] [place], [address] Urine Cultureon 03-18-2024 [facility] Providencia stuartii Minerva Count >100,000 Providencia stuartii: REACTION Amikacin Islt THI <=2 S cefoTEtan Islt THI <=4 S Meropenem Islt THI <=0.25 S Tetracycline Islt THI >=16 R Cefuroxime Islt THI 16 I Providencia stuartii: REACTION Ampicillin+Sulbac Islt THI 4 S ceFAZolin Islt THI R Cefepime Islt TIH 8 I Ciprofloxacin Islt THI >=4 R Ertapenem Islt THI <=0.12 S Gentamicin Islt THI R Imipenem Islt THI <=0.25 S levoFLOXacin Islt THI >=8 R Nitrofurantoin Islt THI 256 R Pip+Tazo Islt THI 8 S Tobramycin Islt THI R TMP SMX Islt THI 160 R Normal [facility] Comment on above: Performed By: #### M 100.2200, L400.0001 #### [facility] [address] [place], [address] Basic Metabolic Profile (BMP )on 03-17-2024 BUN/CRE 22.5 RATIO High 10-20 [facility] Comment on above: Order Comment: GRETCHEN TER SPECIMEN Performed By: #### L 400.0001 #### [facility] [address] [place], [address] CA,Total 9.3 mg/dL Normal 8.5-10.1 [facility] Comment on above: Order Comment: GRETCHEN TER SPECIMEN Performed By: #### L 400.0001 #### [facility] [address] [place], [address] Chloride [Moles/Vol] 107 mmol/L Normal 98-107 [facility] Comment on above: Order Comment: GRETCHEN TER SPECIMEN Performed By: #### L 400.0001 #### [facility] [address] [place], [address] CO2 [Moles/Vol] 25.0 mmol/L Normal 21.0-32.0 [facility] Comment on above: Order Comment: GRETCHEN TER SPECIMEN Performed By: #### L 400.0001 #### [facility] [address] [place], [address] Creatinine [Mass/Vol] 1.29 mg/dL High 0.55-1.[address] [facility] Comment on above: Order Comment: GRETCHEN TER SPECIMEN Result Comment: The validity of the calculated GFR GFRAA in patients over 70 years has not been determined. Clinical correlation is essential. Performed By: #### L [id number] #### [facility] [address] [place], [address] EST GFR - AA 51 mL/min Low >60 [facility] Comment on above: Order Comment: GRETCHEN TER SPECIMEN Result Comment: Afri can Cuban GFR Calc Performed By: #### L 400.0001 #### [facility] [address] [place], [address] GAP 7 Normal 5-15 [facility] Comment on above: Order Comment: GRETCHEN TER SPECIMEN Performed By: #### L 400.0001 #### [facility] [address] [place], [address] GFR/1.73 sq M.predicted among non-blacks MDRD (S/P/Bld) [Vol rate/Area] 43 mL/min/{1.73_m2} Low >60 [facility] Comment on above: Order Comment: GRETCHEN TER SPECIMEN Result Comment: Non- GFR Calc Performed By: #### L 400.0001 #### [facility] [address] [place], [address] Glucose [Mass/Vol] 125 mg/dL High 74-106 [facility] Comment on above: Order Comment: GRETCHEN TER SPECIMEN Result Comment: Fast ing Glucose result from 100 to 125 mg/dL suggests IMPAIRED HOMEOSTASIS per A.D.A. criteria. Performed By: #### L [id number] #### [facility] [address] [place], [address] Potassium [Moles/Vol] 3.8 mmol/L Normal 3.5-5.[address] [facility] Comment on above: Order Comment: GRETCHEN TER SPECIMEN Performed By: #### L 400.0001 #### [facility] [address] [place], [address] Sodium [Moles/Vol] 139 mmol/L Normal 136-145 [facility] Comment on above: Order Comment: GRETCHEN TER SPECIMEN Performed By: #### L 400.0001 #### [facility] [address] [place], [address] Urea nitrogen [Mass/Vol] 29 mg/dL High 7-18 [facility] Comment on above: Order Comment: GRETCHEN TER SPECIMEN Performed By: #### L 400.0001 #### [facility] [address] [place], [address] CBC-Complete Blood Cnt No Di ffon 03-17-2024 Erythrocyte distribution width (RBC) [Ratio] 13.3 % Normal 11.6-14.6 [facility] Comment on above: Order Comment: 305.1 Performed By: #### M .2199, #### [facility] [address] [place], [address] Hematocrit (Bld) [Volume fraction] 37.9 % Normal 37-47 [facility] Comment on above: Order Comment: 305.1 Performed By: #### M 100.2199, L4 #### [facility] [address] [place], [address] Hemoglobin (Bld) [Mass/Vol] 12.5 g/dL Normal 12.0-15.0 [facility] Comment on above: Order Comment: 305.1 Performed By: #### M 100.220, L4 #### [facility] [address] [place], [address] MCH (RBC) [Entitic mass] 31.6 pg Normal 27.0-32.0 [facility] Comment on above: Order Comment: 305.1 Performed By: #### M , .2010 #### [facility] [address] [place], [address] MCHC (RBC) [Mass/Vol] 33.0 g/dL Normal 32-[address] [facility] Comment on above: Order Comment: 305.1 Performed By: #### M , .2010 #### [facility] [address] [place], [address] MCV (RBC) [Entitic vol] 95.7 fL Normal 81-99 [facility] Comment on above: Order Comment: 305.1 Performed By: #### M , #### [facility] [address] [place], [address] Platelet mean volume (Bld) [Entitic vol] 10.9 fL Normal 6.2-12.0 [facility] Comment on above: Order Comment: 305.1 Performed By: #### M , #### [facility] [address] [place], [address] Platelets (Bld) [#/Vol] 225 10*3/uL Normal 150-450 [facility] Comment on above: Order Comment: 305.1 Performed By: #### M , #### [facility] [address] [place], [address] RBC (Bld) [#/Vol] 3.96 10*6/uL Low 4.2-5.4 [facility] Comment on above: Order Comment: 305.1 Performed By: #### M , #### [facility] [address] [place], [address] RDW SD 47.2 fl High 35.1-43.9 [facility] Comment on above: Order Comment: 305.1 Performed By: #### M 100.2200, L4.2010 #### [facility] [address] [place], [address] WBC (Bld) [#/Vol] 6.6 10*3/uL Normal 4.4-11.0 [facility] Comment on above: Order Comment: 305.1 Performed By: #### M 100.2200, L4.2010 #### [facility] [address] [place], [address] Urinalysis, Completeon 03-15 WBC 25-50 SEEN Normal 0-5 [facility] Comment on above: Order Comment: GRETCHEN TER SPECIMEN Performed By: #### M 100.2200, L400.2199 #### [facility] [address] [place], [address] BACTERIA 2+ /hpf Normal None Seen [facility] Comment on above: Order Comment: GRETCHEN TER SPECIMEN Performed By: #### M 100.2200, L400.0001 #### [facility] [address] [place], [address] EPI,SQUAMOUS 0-5 SEEN Normal 5-10 [facility] Comment on above: Order Comment: GRETCHEN TER SPECIMEN Performed By: #### M 100.2200, L400.0001 #### [facility] [address] [place], [address] Mucus Ql (Urine sed) 0 SEEN Normal [facility] Comment on above: Order Comment: GRETHCEN TER SPECIMEN Performed By: #### M 100.2200, L400.0001 #### [facility] [address] [place], [address] RBC 0 SEEN Normal 0-5 [facility] Comment on above: Order Comment: GRETCHEN TER SPECIMEN Performed By: #### M 100.2200, L400.0001 #### [facility] [address] [place], [address] Basic Metabolic Profile (BMP )on 03-13-2024 BUN/CRE 25.4 RATIO High 10-20 [facility] Comment on above: Order Comment: 305-1 Performed By: #### L 100.0500, L500.2500 #### [facility] [address] [place], [address] CA,Total 9.0 mg/dL Normal 8.5-10.1 [facility] Comment on above: Order Comment: 305-1 Performed By: #### L 100.0500, L500.2500 #### [facility] [address] [place], [address] Chloride [Moles/Vol] 108 mmol/L High 98-107 [facility] Comment on above: Order Comment: 305-1 Performed By: #### L 100.0500, L500.2500 #### [facility] [address] [place], [address] CO2 [Moles/Vol] 22.0 mmol/L Normal 21.0-32.0 [facility] Comment on above: Order Comment: 305- Performed By: #### L 100.0500, L500.2500 #### [facility] [address] [place], [address] Creatinine [Mass/Vol] 1.22 mg/dL High 0.55-1.[address] [facility] Comment on above: Order Comment: 305-1 Result Comment: The validity of the calculated GFR GFRAA in patients over 70 years has not been determined. Clinical correlation is essential. Performed By: #### L 100.0500, L500.2500 #### [facility] [address] [place], [address] EST GFR - AA 55 mL/min Low >60 [facility] Comment on above: Order Comment: 305- Result Comment: Afri can Cuban GFR Calc Performed By: #### L 100.0500, L500.2500 #### [facility] [address] [place], [address] GAP 7 Normal 5-15 [facility] Comment on above: Order Comment: 305-1 Performed By: #### L 100.0500, L500.2500 #### [facility] [address] [place], [address] GFR/1.73 sq M.predicted among non-blacks MDRD (S/P/Bld) [Vol rate/Area] 45 mL/min/{1.73_m2} Low >60 [facility] Comment on above: Order Comment: 305- Result Comment: Non- GFR Calc Performed By: #### L 100.0500, L500.2500 #### [facility] [address] [place], [address] Glucose [Mass/Vol] 120 mg/dL High 74-106 [facility] Comment on above: Order Comment: 305- Result Comment: Fast ing Glucose result from 100 to 125 mg/dL suggests IMPAIRED HOMEOSTASIS per A.D.A. criteria. Performed By: #### L 100.0500, L500.2500 #### [facility] [address] [place], [address] Potassium [Moles/Vol] 3.7 mmol/L Normal 3.5-5.[address] [facility] Comment on above: Order Comment: 305-1 Performed By: #### L 100.0500, L500.2500 #### [facility] [address] [place], [address] Sodium [Moles/Vol] 137 mmol/L Normal 136-145 [facility] Comment on above: Order Comment: 305-1 Performed By: #### L 100.0500, L500.2500 #### [facility] [address] [place], [address] Urea nitrogen [Mass/Vol] 31 mg/dL High 7-18 [facility] Comment on above: Order Comment: 305-1 Performed By: #### L 100.0500, L500.2500 #### [facility] [address] [place], [address] CBC-Complete Blood Cnt No Di ffon 03-13-2024 Erythrocyte distribution width (RBC) [Ratio] 13.3 % Normal 11.6-14.6 [facility] Comment on above: Order Comment: 305-1 Performed By: #### L 100.0500, L500.2500 #### [facility] [address] [place], [address] Hematocrit (Bld) [Volume fraction] 41.2 % Normal 37-47 [facility] Comment on above: Order Comment: 305-1 Performed By: #### L 100.0500, L500.2500 #### [facility] [address] [place], [address] Hemoglobin (Bld) [Mass/Vol] 13.1 g/dL Normal 12.0-15.0 [facility] Comment on above: Order Comment: 305-1 Performed By: #### L 100.0500, L500.2500 #### [facility] [address] [place], [address] MCH (RBC) [Entitic mass] 32.3 pg High 27.0-32.0 [facility] Comment on above: Order Comment: 305-1 Performed By: #### L 100.0500, L500.2500 #### [facility] [address] [place], [address] MCHC (RBC) [Mass/Vol] 31.8 g/dL Low 32-[address] [facility] Comment on above: Order Comment: 305-1 Performed By: #### L 100.0500, L500.2500 #### [facility] [address] [place], [address] MCV (RBC) [Entitic vol] 101.7 fL High 81-99 [facility] Comment on above: Order Comment: 305-1 Performed By: #### L 100.0500, L500.2500 #### [facility] [address] [place], [address] Platelet mean volume (Bld) [Entitic vol] 10.8 fL Normal 6.2-12.0 [facility] Comment on above: Order Comment: 305-1 Performed By: #### L 100.0500, L500.2500 #### [facility] [address] [place], [address] Platelets (Bld) [#/Vol] 209 10*3/uL Normal 150-450 [facility] Comment on above: Order Comment: 305-1 Performed By: #### L 100.0500, L500.2500 #### [facility] [address] [place], [address] RBC (Bld) [#/Vol] 4.05 10*6/uL Low 4.2-5.4 [facility] Comment on above: Order Comment: 305-1 Performed By: #### L 100.0500, L500.2500 #### [facility] [address] [place], [address] RDW SD 50.5 fl High 35.1-43.9 [facility] Comment on above: Order Comment: 305-1 Performed By: #### L 100.0500, L500.2500 #### [facility] [address] [place], [address] WBC (Bld) [#/Vol] 6.2 10*3/uL Normal 4.4-11.0 [facility] Comment on above: Order Comment: 305-1 Performed By: #### L 100.0500, L500.2500 #### [facility] [address] [place], [address] [place] 12-17-2023 [place] Next Site of Care Admission Date: 12/16/2023 01:05 PM Patient Name: CARLINE VILLARREAL Location: [address] CARDIAC PCU/SB [id number] A Date of : 1945 ---- Placement Information ---- Referral Type:Detention/SNF - Return Referral ID:[id number] Provider Name:Ari Tabor [facility] Address 1:[address] [facility] [address] [facility] Address 2: City:[place] Selection Factors:Returning to Facility State:[facility] [place] Discharge med list transmitted to [facility] Ari Tabor via [employer] per TCC request. Normal [facility] TOO Spoke with patient about return to [facility] [place] and she is in agreement with this. Spoke with Merle about report and they are able to accept patient back. She is group home there under her medicaid. Did update social media project manager and primary care nurse. Tasked COMMODITY LEAD to send dc packet to [facility]. . Normal [facility]. [facility] messaged the facility with dc time. Ambulance PCS form completed in Round Trip. Spoke with patients ethan Pillai to discuss transportation arrangements and the bulk picker time. Nurse provided with report number. Normal [facility] CBC (HEMOGRAM)on 12-17-2023 Erythrocyte distribution width (RBC) [Ratio] 13.5 % Normal 11.5-15.0 [facility] Comment on above: Performed By: #### L AB294 ####Aquatic Ecologist: FREEMAN DOUGHERTY ([phone])[facility] ([facility])[address] [place] [address] Hematocrit (Bld) [Volume fraction] 35.7 % Normal 35.0-47.0 [facility] Comment on above: Performed By: #### L AB294 ####Aquatic Ecologist: FREEMAN DOUGHERTY ([id number])[facility] ([facility] [place] [address] Hemoglobin (Bld) [Mass/Vol] 12.0 g/dL Normal 11.7-16.0 [facility] Comment on above: Performed By: #### L AB294 ####Aquatic Ecologist: FREEMAN DOUGHERTY ([id number])[facility] ([facility])[address] [place] [address] MCH (RBC) [Entitic mass] 32.2 pg Normal 26.0-34.0 [facility] Comment on above: Performed By: #### L AB294 ####Aquatic Ecologist: FREEMAN DOUGHERTY ([id number])[facility] ([facility])[address] MCHC 33.6 % Normal 30.5-36.0 [facility] Comment on above: Performed By: #### L AB294 ####Aquatic Ecologist: FREEMAN DOUGHERTY ([id number])[facility] ([facility])[address] MCV (RBC) [Entitic vol] 95.7 fL Normal 77.0-99.0 [facility] Comment on above: Performed By: #### L AB294 ####Aquatic Ecologist: FREEMAN DOUGHERTY ([id number])[facility] ([facility])[address] Platelet mean volume (Bld) [Entitic vol] 10.5 fL Normal 9.0-12.7 [facility] Comment on above: Performed By: #### L AB294 ####Aquatic Ecologist: FREEMAN DOUGHERTY ([id number])[facility] ([facility])[address] [place] [address] [place] Platelets (Bld) [#/Vol] 211 10*3/uL Normal 140-440 [facility] Comment on above: Performed By: #### L AB294 ####Aquatic Ecologist: FREEMAN DOUGHERTY ([id number])[facility] [place] ([facility])[address] RBC (Bld) [#/Vol] 3.73 10*6/uL Low 3.80-5.20 [facility] Comment on above: Performed By: #### L AB294 ####Aquatic Ecologist: FREEMAN DOUGHERTY ([id number])[facility] ([facility])[address] WBC (Bld) [#/Vol] 5.4 10*3/uL Normal 3.6-10.7 [facility] Comment on above: Performed By: #### L AB294 ####Aquatic Ecologist: FREEMAN DOUGHERTY ([id number])[facility] ([facility])[address] CBC panel Auto (Bld)on 12-16 Erythrocyte distribution width (RBC) [Ratio] 13.5 % 11.5 - 15.0 % [facility] Hematocrit (Bld) [Volume fraction] 35.7 % 35.0 - 47.0 % [facility] Hemoglobin (Bld) [Mass/Vol] 12.0 g/dL 11.7 - 16.0 g/dL [facility] Interpretation and review of laboratory results Abnormal [facility] MCH (RBC) [Entitic mass] 32.2 pg 26.0 - 34.0 pg [facility] MCHC (RBC) [Mass/Vol] 33.6 % 30.5 - 36.0 % [facility] MCV (RBC) [Entitic vol] 95.7 fL 77.0 - 99.0 fL [facility] Platelet mean volume (Bld) [Entitic vol] 10.5 fL 9.0 - 12.7 fL [facility] Platelets (Bld) [#/Vol] 211 10*3/uL 140 - 440 10*3/uL [facility] RBC (Bld) [#/Vol] 3.73 10*6/uL Low 3.80 - 5.2 0 10*6/uL [facility] WBC (Bld) [#/Vol] 5.4 10*3/uL 3.6 - 10.7 10*3/uL [facility] COMPREHENSIVE METABOLIC PANE Mandeep 12-17-2023 Albumin [Mass/Vol] 3.2 g/dL Low 3.5-5.0 [facility] Comment on above: Performed By: #### L AB18, LAB17 ####Aquatic Ecologist: FREEMAN DOUGHERTY ([id number])[facility] ([facility])[address] ALP [Catalytic activity/Vol] 133 U/L High 38-126 [facility] Comment on above: Performed By: #### L AB18, LAB17 ####Aquatic Ecologist: FREEMAN DOUGHERTY ([id number])[facility] ([facility])[address] ALT [Catalytic activity/Vol] 14 U/L Normal 0-34 [facility] Comment on above: Performed By: #### L AB18, LAB17 ####Aquatic Ecologist: FREEMAN DOUGHERTY ([phone])[facility] ([facility])[address] Anion gap [Moles/Vol] 10 mmol/L Normal 3-13 [facility] Comment on above: Performed By: #### L AB18, LAB17 ####Aquatic Ecologist: FREEMAN DOUGHERTY ([id number])[facility] ([facility])[address] AST [Catalytic activity/Vol] 21 U/L Normal 15-46 [facility] Comment on above: Performed By: #### L AB18, LAB17 ####Aquatic Ecologist: FREEMAN DOUGHERTY ([id number])[facility] ([facility])[address] Bilirubin [Mass/Vol] 0.5 mg/dL Normal 0.2-1.3 [facility] Comment on above: Performed By: #### L AB18, LAB17 ####Aquatic Ecologist: FREEMAN DUOGHERTY ([id number])[facility] ([facility])[address] Calcium [Mass/Vol] 8.9 mg/dL Normal 8.4-10.4 [facility] Comment on above: Performed By: #### L AB18, LAB17 ####Aquatic Ecologist: FREEMAN DOUGHERTY ([id number])[facility] ([facility])[address] [place] [address] [place] Chloride [Moles/Vol] 107 mmol/L Normal 98-107 [facility] Comment on above: Performed By: #### L AB18, LAB17 ####Aquatic Ecologist: FREEMAN DOUGHERTY ([id number])[facility] ([facility])[address] [place] [address] [place] CO2 [Moles/Vol] 24 mmol/L Normal 22-30 [facility] Comment on above: Performed By: #### L AB18, LAB17 ####Aquatic Ecologist: FREEMAN DOUGHERTY ([id number])[facility] ([facility])[address] Creatinine [Mass/Vol] 1.20 mg/dL High 0.52-1.04 [facility] Comment on above: Performed By: #### L AB18, LAB17 ####Aquatic Ecologist: FREEMAN DOUGHERTY ([id number])[facility] ([facility])[address] GLOMERULAR FILTRATION RATE ML/MIN/1.73 SQ M.PREDICTED 46.7 mL/min/1.73m*2 Low >60.0 [facility] Comment on above: Result Comment: Calc ulation based on the Chronic Kidney Disease Epidemiology Collaboration (CKD-EPI) equation refit without adjustment for race Performed By: #### L AB18, LAB17 ####Aquatic Ecologist: FREEMAN DOUGHERTY ([id number])[facility] ([facility])[address] Glucose [Mass/Vol] 117 mg/dL High 70-100 [facility] Comment on above: Performed By: #### L AB18, LAB17 ####Aquatic Ecologist: FREEMAN DOUGHERTY ([id number])[facility] ([facility])[address] [place] [address] [place] Potassium [Moles/Vol] 3.7 mmol/L Normal 3.5-5.1 [facility] Comment on above: Performed By: #### L AB18, LAB17 ####Aquatic Ecologist: FREEMAN DOUGHERTY ([id number])[facility] ([facility])[address] Protein [Mass/Vol] 6.0 g/dL Low 6.3-8.2 [facility] Comment on above: Performed By: #### L AB18, LAB17 ####Aquatic Ecologist: FREEMAN DOUGHERTY ([id number])[facility] ([facility])[address] Sodium [Moles/Vol] 141 mmol/L Normal 135-145 [facility] Comment on above: Performed By: #### L AB18, LAB17 ####Aquatic Ecologist: FREEMAN DOUGHERTY ([id number])[facility] ([facility])[address] Urea nitrogen [Mass/Vol] 26 mg/dL High 7-17 [facility] Comment on above: Performed By: #### L AB18, LAB17 ####Aquatic Ecologist: FREEMAN DOUGHRETY ([id number])[facility] ([facility])[address] [place] [address] Comprehensive metabolic 1998 panelon 12-17-2023 Albumin [Mass/Vol] 3.2 g/dL Low 3.5 - 5.0 g/dL [facility] ALP [Catalytic activity/Vol] 133 U/L High 38 - 126 U/L [facility] ALT [Catalytic activity/Vol] 14 U/L 0 - 34 U/L [facility] Anion gap [Moles/Vol] 10 mmol/L 3 - 13 mmol/L [facility] AST [Catalytic activity/Vol] 21 U/L 15 - 46 U/L [facility] Bilirubin [Mass/Vol] 0.5 mg/dL 0.2 - 1 .3 mg/dL [facility] Calcium [Mass/Vol] 8.9 mg/dL 8.4 - 10. 4 mg/dL [facility] Chloride [Moles/Vol] 107 mmol/L 98 - 10 7 mmol/L [facility] CO2 [Moles/Vol] 24 mmol/L 22 - 30 mmol/L [facility] Creatinine [Mass/Vol] 1.20 mg/dL High 0.52 - 1.04 mg/dL [facility] GFR/1.73 sq M.predicted MDRD (S/P/Bld) [Vol rate/Area] 46.7 mL/min/{1.73_m2} Low - PINF [facility] Comment on above: Calculation based on the Chronic Kidney Disease Epidemiology Collaboration (CKD-EPI) equation refit without adjustment for race Glucose [Mass/Vol] 117 mg/dL High 70 - 100 mg/dL [facility] Potassium [Moles/Vol] 3.7 mmol/L 3.5 - 5.1 mmol/L [facility] Protein [Mass/Vol] 6.0 g/dL Low 6.3 - 8.2 g/dL [facility] Sodium [Moles/Vol] 141 mmol/L 135 - 145 mmol/L [facility] Urea nitrogen [Mass/Vol] 26 mg/dL High 7 - 17 mg/dL [facility] HEMOGLOBIN A1Con 12-17-2023 Glucose [Mass/Vol] 97 mg/dL Normal [facility] Comment on above: Performed By: #### L AB90 ####Aquatic Ecologist: FREEMAN DOUGHERTY ([id number])[facility] ([facility])[address] [place] [address] HbA1c (Bld) [Mass fraction] 5.0 % Normal <5.7 [facility] Comment on above: Result Comment: Norm al less than 5.7% Prediabetes 5.7% to 6.4% Diabetes 6.5% or higher --HgbA1C levels may not be accurate in patients who have renal disease, received recent blood transfusions, are anemic, or who have dyshemoglobinemia. Performed By: #### L AB90 ####Aquatic Ecologist: FREEMAN DOUGHERTY ([id number])[facility] ([facility])[address] [place] [address] LIPID PANELon 12-17-2023 Cholesterol [Mass/Vol] 114 mg/dL Normal <200 [facility] Comment on above: Performed By: #### L AB18, LAB17 ####Aquatic Ecologist: FREEMAN DOUGHERTY ([id number])[facility] ([facility])[address] [place] [address] Cholesterol in HDL [Mass/Vol] 38 mg/dL Low 40-60 [facility] Comment on above: Performed By: #### L AB18, LAB17 ####Aquatic Ecologist: FREEMAN DOUGHERTY ([id number])[facility] ([facility])[address] Cholesterol.total/Yesi sterol in HDL [Mass ratio] 3 {ratio} Normal [facility] Comment on above: Result Comment: Ref Range: < 3 Low Risk for CHD 3-6 Mod Risk for CHD > 6 High Risk for CHD Performed By: #### L AB18, LAB17 ####Aquatic Ecologist: FREEMAN DOUGHERTY ([id number])[facility] ([facility])[address] LOW DENSITY LIPOPROTEIN 58 mg/dL Normal 0-<100 [facility] Comment on above: Performed By: #### L AB18, LAB17 ####Aquatic Ecologist: FREEMAN DOUGHERTY ([id number])[facility] ([facility])[address] Triglyceride [Mass/Vol] 92 mg/dL Normal <150 [facility] Comment on above: Performed By: #### L AB18, LAB17 ####Aquatic Ecologist: FREEMAN DOUGHERTY ([id number])[facility] ([facility])[address] Laboratory - Chemistry and C hemistry - challengeon 12-17-2023 Average glucose Estimated from glycated hemoglobin (Bld) [Mass/Vol] 97 mg/dL [facility] Laboratory - Hematology and Cell countson 12-17-2023 HbA1c (Bld) [Mass fraction] 5.0 % NINF - 5.7 % [facility] Comment on above: Normal less than 5.7 % Prediabetes 5.7% to 6.4% Diabetes 6.5% or higher --HgbA1C levels may not be accurate in patients who have renal disease, received recent blood transfusions, are anemic, or who have dyshemoglobinemia. Lipid 1996 panelon 4 Cholesterol [Mass/Vol] 114 mg/dL NINF - 200 mg/dL [facility] Cholesterol in HDL [Mass/Vol] 38 mg/dL Low 40 - 60 mg/dL [facility] Cholesterol in LDL [Mass/Vol] 58 mg/dL 0 - <100 [facility] Cholesterol.total/Yesi sterol in HDL [Mass ratio] 3 {ratio} [facility] Comment on above: Ref Range: < 3 Low Risk for CHD 3-6 Mod Risk for CHD > 6 High Risk for CHD Triglyceride [Mass/Vol] 92 mg/dL NINF - 150 mg/dL [facility] MR Brain WO contraston 12-16 1. No acute infarct. 2. 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 3. Cerebral volume loss. 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 Report Dictated on Electronically Signed By: Cosme Ward MD Electronically Signed Date/Time: 12/17/2023 9:59 AM EDT [facility] [place] Punctil SYSTEM Patient Name: CARLINE VILLARREAL : 1945 [facility]#: [id number] Exam Date/Time: 12/17/2023 09:49 Procedure: MR BRAIN WO CONTRAST Ordering Provider: MEEHAN HASSAN Reason For Exam: Transient ischemic attack (TIA) MRI BRAIN: CLINICAL INDICATION: Transient ischemic attack TECHNIQUE: Transaxial, sagittal and coronal T1, transaxial fast T2, FLAIR and gradient echo along with diffusion weighted imaging was performed through the brain. COMPARISON: 12/16/2023 FINDINGS: Somewhat limited due to patient motion. Ventricular system and Extra-axial spaces: Generalized enlargement of the ventricles and sulci is noted, including mild ex vacuo enlargement of the right lateral ventricle. No extracerebral collection with mass effect. Cerebral and cerebellar parenchyma: There is encephalomalacia and gliosis in the right parietal lobe. Sequelae of a prior right basal ganglial lacunar infarct. Periventricular and patchy subcortical white matter foci of increased signal intensity on T2 and FLAIR are identified without mass effect or restricted diffusion, compatible with areas of chronic white matter small vessel ischemic change. No evidence of acute infarction on the diffusion-weighted images. No susceptibility artifact on the gradient echo sequence to suggest intracranial hemorrhage. No mass or edema. Brainstem: Normal. Sella turcica and pituitary: Normal. Vascular system: Normal signal void is noted within the major intracranial vessels. Paranasal sinuses: Clear. Mastoid air cells: Normal. Orbits: Normal. [facility] [place] Punctil SYSTEM Cosme Ward MD - 12/17/2023 [facility] 1945 [id number] Exam Date/Time: 12/17/2023 09:49 Procedure: MR BRAIN WO CONTRAST Ordering Provider: MEEHAN HASSAN Reason For Exam: Transient ischemic attack (TIA) MRI BRAIN: CLINICAL INDICATION: Transient ischemic attack TECHNIQUE: Transaxial, sagittal and coronal T1, transaxial fast T2, FLAIR and gradient echo along with diffusion weighted imaging was performed through the brain. COMPARISON: 12/16/2023 FINDINGS: Somewhat limited due to patient motion. Ventricular system and Extra-axial spaces: Generalized enlargement of the ventricles and sulci is noted, including mild ex vacuo enlargement of the right lateral ventricle. No extracerebral collection with mass effect. Cerebral and cerebellar parenchyma: There is encephalomalacia and gliosis in the right parietal lobe. Sequelae of a prior right basal ganglial lacunar infarct. Periventricular and patchy subcortical white matter foci of increased signal intensity on T2 and FLAIR are identified without mass effect or restricted diffusion, compatible with areas of chronic white matter small vessel ischemic change. No evidence of acute infarction on the diffusion-weighted images. No susceptibility artifact on the gradient echo sequence to suggest intracranial hemorrhage. No mass or edema. Brainstem: Normal. Sella turcica and pituitary: Normal. Vascular system: Normal signal void is noted within the major intracranial vessels. Paranasal sinuses: Clear. Mastoid air cells: Normal. Orbits: Normal. IMPRESSION: 1. No acute infarct. 2. 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 3. Cerebral volume loss. 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 Report Dictated on Electronically Signed By: Cosme Ward MD Electronically Signed Date/Time: 12/17/2023 9:59 AM EDT [facility] Radiology Study observation (narrative) [facility] MR Brain WO contrastOrdered By: Cosme Ward on 12-17-2023 [facility] [employer] Work Phone: No Panel Informationon 12-16 [facility] Interpretation and review of laboratory results Abnormal [facility] Nursing Noteon 12-17-2023 Nursing Note Report called to Alejo Tabor. Transport setup for 1400. Normal [facility] Nursing Note Pt discharged back t [place]. PIV removed from RFA, catheter intact, DSD applied. Tele monitor removed, cleaned per protocol & returned to drawer. Normal [facility] Progress Noteon 12-17-2023 Progress Note Speech-Language Pathology Patient passed the Nursing Swallowing Screening and is on a Regular diet, Cardiac: Low fat, Low cholesterol. High Fiber, LEXI with Thin liquids. Completed speech orders as per stroke protocol. Normal [facility] US Heart TransthoracicOrdere d By: Sahara Gross on 12-17-2023 Ao Root Index 1.78 cm/m2 [facility] Phone: [phone] Aortic Arch 3.4 cm [facility] Work Phone: [phone] Aortic Root 3.6 cm [facility] Work Phone: [phone] Aortic Sinus Valsalva 3.6 cm [facility] Work Phone: [phone] Aortic Sinus Valsalva Index 1.78 cm/m2 [facility] Work Phone: [phone] AR Max Velocity PISA 5.4 m/s [facility] Work Phone: [phone] AR PHT 349.4 ms [facility] Work Phone: [phone] Ascending Aorta 3.6 cm [facility] Work Phone: [phone] Ascending Aorta Index 1.78 cm/m2 [facility] Work Phone: [phone] AV Area by Peak Velocity 2.3 cm2 [facility] Work Phone: [phone] AV Area by VTI 2.3 cm2 [facility] Work Phone: [phone] AV Mean Gradient 8 mmHg [facility] Work Phone: [phone] AV Mean Velocity 1.3 m/s [facility] Work Phone: [phone] AV Peak Gradient 14 mmHg [facility] Work Phone: [phone] AV Peak Velocity 1.9 m/s [facility] Work Phone: [phone] AV Velocity Ratio 0.68 [facility] Work Phone: [phone] AV VTI 34.3 cm [facility] Work Phone: [phone] NEERAJ/BSA Peak Velocity 1.1 cm2/m2 [facility] [employer] Work Phone: [phone] NEERAJ/BSA VTI 1.1 cm2/m2 [facility] [employer] Work Phone: [phone] E/E' Lateral 7.67 [facility] [employer] Phone: [phone] E/E' Ratio (Averaged) 8.15 [facility] [employer] Work Phone: [phone] E/E' Septal 8.63 [facility] [employer] Phone: [phone] EF BP 65 % 55 - 100 % [facility] [employer] Work Phone: [phone] Fractional Shortening 2D 39 % 28 - 44 % [facility] [employer] Phone: Global Longitudinal Strain -15.8 % [facility] [employer] Phone: Interpretation and review of laboratory results Abnormal [facility]: [phone] IVC Diameter 1.5 cm [facility] Phone: [phone] IVSd 1.2 cm Abnormal 0.6 - 0.9 cm [facility] [employer] Phone: [phone] LA Diameter 5.4 cm [facility] [employer] Phone: LA Size Index 2.67 cm/m2 [facility] Work Phone: LA Volume 2C 118 mL Abnormal 22 - 52 mL [facility] Phone: LA Volume 4C 90 mL Abnormal 22 - 52 mL [facility] Phone: [phone] LA Volume A/L 110 mL [facility] [employer] Work Phone: [phone] LA Volume BP 104 mL Abnormal 22 - 52 mL [facility] Phone: LA Volume Index 2C 58 mL/m2 Abnormal 16 - 34 mL/m2 [facility] Phone: LA Volume Index 4C 45 mL/m2 Abnormal 16 - 34 mL/m2 [facility] Phone: LA Volume Index A/L 54 mL/m2 16 - 34 mL/m2 [facility] Phone: LA Volume Index BP 51 ml/m2 Abnormal 16 - 34 ml/m2 [facility] Work Phone: [phone] LA/AO Root Ratio 1.50 [facility] Work Phone: [phone] LV E' Lateral Velocity 9 cm/s [facility] Work Phone: [phone] LV E' Septal Velocity 8 cm/s [facility] Work Phone: [phone] LV EDV A2C 77 mL [facility] Work Phone: [phone] LV EDV A4C 79 mL [facility] Work Phone: [phone] LV EDV BP 81 mL 56 - 104 mL [facility] Work Phone: [phone] LV EDV Index A2C 38 mL/m2 [facility] Work Phone: [phone] LV EDV Index A4C 39 mL/m2 [facility] Work Phone: [phone] LV EDV Index BP 40 mL/m2 [facility] Work Phone: [phone] LV Ejection Fraction A2C 70 % [facility] Work Phone: [phone] LV Ejection Fraction A4C 58 % [facility] Work Phone: [phone] LV ESV A2C 23 mL [facility] Work Phone: [phone] LV ESV A4C 34 mL [facility] Work Phone: [phone] LV ESV BP 28 mL 19 - 49 mL [facility] Work Phone: [phone] LV ESV Index A2C 11 mL/m2 [facility] Work Phone: [phone] LV ESV Index A4C 17 mL/m2 [facility] Work Phone: [phone] LV ESV Index BP 14 mL/m2 [facility] Work Phone: LV Mass 2D 171.7 g Abnormal 67 - 162 g [facility] Work Phone: LV Mass 2D Index 85.0 g/m2 43 - 95 g/m2 [facility] Work Phone: LV RWT Ratio 0.59 [facility] Work Phone: [phone] LVIDd 4.1 cm 3.9 - 5.3 cm [employer] Work Phone: [phone] LVIDd Index 2.03 cm/m2 [employer] Work Phone: [phone] LVIDs 2.5 cm [employer] Work Phone: [phone] LVIDs Index 1.24 cm/m2 [employer] Work Phone: [phone] LVOT Area 3.5 cm2 [employer] Work Phone: [phone] LVOT Cardiac Output 7.1 liter/mi nut e [employer] Work Phone: [phone] LVOT Diameter 2.1 cm [employer] Work Phone: [phone] LVOT Mean Gradient 3 mmHg [employer] Work Phone: [phone] LVOT Peak Gradient 6 mmHg [employer] Work Phone: [phone] LVOT Peak Velocity 1.3 m/s [employer] Work Phone: [phone] LVOT Stroke Volume Index 41.0 mL/m2 [employer] Work Phone: [phone] LVOT SV 82.7 ml [employer] Work Phone: [phone] LVOT VTI 23.9 cm [employer] Work Phone: [phone] LVOT:AV VTI Index 0.70 [facility] [employer] [facility] Work Phone: [phone] LVPWd 1.2 cm Abnormal 0.6 - 0.9 cm [employer] Work Phone: [phone] MV A Velocity 0.99 m/s [employer] [facility] Work Phone: [phone] MV E Velocity 0.69 m/s [facility] Work Phone: [phone] MV E Wave Deceleration Time 177.0 ms [employer] Work Phone: [phone] MV E/A 0.70 [employer] Work Phone: [phone] RA Area 4C 59.8 mL [employer] Work Phone: [phone] RV Basal Dimension 3.4 cm [employer] Work Phone: [phone] RV Free Wall Peak S' 22 cm/s [facility] [employer] Work Phone: [phone] RV Longitudinal Dimension 4.0 cm [facility] Work Phone: [phone] RV Mid Dimension 2.4 cm [facility] Work Phone: [phone] Sinotubular Junction 3.3 cm [facility] a [facility] Work Phone: [phone] TAPSE 2.0 cm 1.7 cm [facility] Work Phone: [phone] TR Max Velocity 2.93 m/s [facility] Kitchen lth Work Phone: [phone] TR Peak Gradient 34 mmHg [facility] Nehemias alth Work Phone: [phone] [facility] Work Phone: [phone] Heart Transthoracicon Left Ventricle: Left ventricle size is normal. Mildly increased wall thickness. Normal left ventricular systolic function. EF by 2D Simpsons Biplane is 65%. Global longitudinal strain is reduced with a value of -15.8%. Right Ventricle: Right ventricle size is normal. RV basal diameter is 3.4 cm. RV mid diameter is 2.4 cm. Left Atrium: Left atrium size is severely increased (LA volume index >48 mL/m2).LA Vol Index A/L is 54 mL/m2. Aortic Valve: Moderate (2+) regurgitation. Interatrial Septum: No interatrial shunt visualized on color Doppler. Agitated saline study was negative with and without provocation. Aorta: Normal sized sinuses of Valsalva. Sinuses of Valsalva diameter is 3.6 cm. Mildly dilated ascending aorta. Ao ascending diameter is 3.6 cm. Pericardium: Evidence of prominent epicardial fat. Small (<1 cm) localized pericardial effusion present around the right ventricle. Left Ventricle Left ventricle size is normal. Mildly increased wall thickness. Normal left ventricular systolic function. EF by 2D Simpsons Biplane is 65%. Global longitudinal strain is reduced with a value of -15.8%. Right Ventricle Right ventricle size is normal. RV basal diameter is 3.4 cm. RV mid diameter is 2.4 cm. TAPSE is normal. TAPSE is 2.0 cm. RV Peak S' is 22 cm/s. Left Atrium Left atrium size is severely increased (LA volume index >48 mL/m2).LA Vol Index A/L is 54 mL/m2. Right Atrium Right atrium size is normal. IVC/SVC IVC diameter is normal and decreases greater than 50% during inspiration; therefore the estimated right atrial pressure is normal (~3 mmHg). Mitral Valve Valve structure is normal. Mild annular calcification (posterior). Trace regurgitation. No stenosis noted. Tricuspid Valve Valve structure is normal. Trace regurgitation. Aortic Valve Mildly thickened cusps. Moderate (2+) regurgitation. No stenosis. Pulmonic Valve Valve structure is normal. Trace regurgitation. Ascending Aorta Normal sized sinuses of Valsalva. Sinuses of Valsalva diameter is 3.6 cm. Mildly dilated ascending aorta. Ao ascending diameter is 3.6 cm. Pericardium Evidence of prominent epicardial fat. Small (<1 cm) localized pericardial effusion present around the right ventricle. Septum No interatrial shunt visualized on color Doppler. Agitated saline study was negative with and without provocation. Study Details Image quality: poor. Additional technique includes myocardial strain. Heart rate: 87 bpm. Blood pressure: 146/74 mmHg. Technical qualifiers: Technically difficult study with poor endocardial visualization. Ultrasound enhancement agent was given to enhance imaging. CV CPACS CBC W Auto Differential pane l (Bld)on 12-16-2023 Basophils (Bld) [#/Vol] 0.1 10*3/uL 0.0 - 0.2 10*3/uL [employer] Basophils/100 WBC (Bld) 0.8 % 0.0 - 2.0 % [employer] Eosinophils (Bld) [#/Vol] 0.4 10*3/uL 0.0 - 0.5 10*3/uL [employer] Eosinophils/100 WBC (Bld) 5.7 % 0.0 - 6.0 % [employer] Erythrocyte distribution width (RBC) [Ratio] 13.3 % 11.5 - 15.0 % [employer] Hematocrit (Bld) [Volume fraction] 39.1 % 35.0 - 47.0 % [employer] Hemoglobin (Bld) [Mass/Vol] 13.3 g/dL 11.7 - 16.0 g/dL [employer] Immature granulocytes (Bld) [#/Vol] 0.0 10*3/uL NINF - 0.1 10*3/uL [employer] Immature granulocytes/100 WBC (Bld) 0.1 % 0.0 - 2.0 % [facility] Interpretation and review of laboratory results Normal [facility] [employer] Lymphocytes (Bld) [#/Vol] 1.3 10*3/uL 1.0 - 4.3 10*3/uL [facility] [employer] Lymphocytes/100 WBC (Bld) 17.8 % 15.0 - 45.0 % [facility] MCH (RBC) [Entitic mass] 32.5 pg 26.0 - 34.0 pg [facility] MCHC (RBC) [Mass/Vol] 34.0 % 30.5 - 36.0 % [facility] MCV (RBC) [Entitic vol] 95.6 fL 77.0 - 99.0 fL [facility] Monocytes (Bld) [#/Vol] 0.5 10*3/uL 0.0 - 0.9 10*3/uL [facility] Monocytes/100 WBC (Bld) 7.1 % 5.0 - 13.0 % [facility] Neutrophils (Bld) [#/Vol] 5.1 10*3/uL 1.8 - 7.5 10*3/uL [facility] Neutrophils/100 WBC (Bld) 68.5 % 38.0 - 82.0 % [facility] Nucleated RBC/100 WBC (Bld) [Ratio] 0.0 % [facility] [employer] Platelet mean volume (Bld) [Entitic vol] 10.5 fL 9.0 - 12.7 fL [facility] Platelets (Bld) [#/Vol] 259 10*3/uL 140 - 440 10*3/uL [facility] RBC (Bld) [#/Vol] 4.09 10*6/uL 3.80 - 5.2 0 10*6/uL [facility] WBC (Bld) [#/Vol] 7.4 10*3/uL 3.6 - 10.7 10*3/uL [facility] CBC WITH AUTO DIFFERENTIALon 12-16-2023 Basophils (Bld) [#/Vol] 0.1 10*3/uL Normal 0.0-0.2 [facility] Comment on above: Performed By: #### L [id number] ####Aquatic Ecologist: FREEMAN DOUGHERTY ([id number])[facility]ITAL[facility] (SBAB)[address] [place] [address] Basophils/100 WBC (Bld) 0.8 % Normal 0.0-2.0 [facility] Comment on above: Performed By: #### L [id number] ####Aquatic Ecologist: FREEMAN DOUGHERTY ([id number])[facility] SERVICESJoe (SBHLAB)[address] Eosinophils (Bld) [#/Vol] 0.4 10*3/uL Normal 0.0-0.5 [facility] Comment on above: Performed By: #### L [id number] ####Aquatic Ecologist: FREEMAN DOUGHERTY ([id number])[facility] (SBHLAB)[address] Eosinophils/100 WBC (Bld) 5.7 % Normal 0.0-6.0 [facility] Comment on above: Performed By: #### L [id number] ####Aquatic Ecologist: FREEMAN DOUGHERTY ([id number])[facility] [place] ([facility])[address] [place] [address] Erythrocyte distribution width (RBC) [Ratio] 13.3 % Normal 11.5-15.0 [facility] Comment on above: Performed By: #### L [id number] ####Aquatic Ecologist: FREEMAN DOUGHERTY ([id number])[facility] [place] ([facility])[address] [place] [address] Hematocrit (Bld) [Volume fraction] 39.1 % Normal 35.0-47.0 [facility] Comment on above: Performed By: #### L [id number] ####Aquatic Ecologist: FREEMAN DOUGHERTY ([id number])[facility] [place] (SBAB)[address] [place] [address] Hemoglobin (Bld) [Mass/Vol] 13.3 g/dL Normal 11.7-16.0 [facility] Comment on above: Performed By: #### L [id number] ####Aquatic Ecologist: FREEMAN DOUGHERTY ([id number])[facility] [place] (SBAB)[address] [place] [address] IMMATURE GRANS % 0.1 % Normal 0.0-2.[address] [facility] Comment on above: Performed By: #### L [id number] ####Aquatic Ecologist: FREEMAN MURPHYMICHAEL ([id number])[facility] ([facility])[address] IMMATURE GRANS ABSOLUTE 0.0 10*3/uL Normal <0.1 [facility] Comment on above: Performed By: #### L [id number] ####Aquatic Ecologist: FREEMAN MURPHYMICHAEL ([id number])[facility] ([facility])[address] [place] [address] Lymphocytes (Bld) [#/Vol] 1.3 10*3/uL Normal 1.0-4.3 [facility] Comment on above: Performed By: #### L [id number] ####Aquatic Ecologist: FREEMAN MURPHYMICHAEL ([id number])[facility] ([facility])[address] [place] [address] Lymphocytes/100 WBC (Bld) 17.8 % Normal 15.0-45.0 [facility] Comment on above: Performed By: #### L [id number] ####Aquatic Ecologist: FREEMAN DOUGHERTY ([id number])[facility] ([facility])[address] [place] [address] MCH (RBC) [Entitic mass] 32.5 pg Normal 26.0-34.0 [facility] Comment on above: Performed By: #### L [id number] ####Aquatic Ecologist: FREEMAN MURPHYMICHAEL ([id number])[facility] ([facility])[address] [place] [address] MCHC 34.0 % Normal 30.5-36.0 [facility] Comment on above: Performed By: #### L [id number] ####Aquatic Ecologist: FREEMAN DOUGHERTY ([id number])[facility] ([facility])[address] [place] [address] MCV (RBC) [Entitic vol] 95.6 fL Normal 77.0-99.0 [facility] Comment on above: Performed By: #### L [id number] ####Aquatic Ecologist: FREEMAN DOUGHERTY ([id number])[facility] (SBHLAB)[address] Monocytes (Bld) [#/Vol] 0.5 10*3/uL Normal 0.0-0.9 [facility] Comment on above: Performed By: #### L [id number] ####Aquatic Ecologist: FREEMAN DOUGHERTY ([id number])[facility] [place] (SBHLAB)[address] Monocytes/100 WBC (Bld) 7.1 % Normal 5.0-13.0 [facility] Comment on above: Performed By: #### L [id number] ####Aquatic Ecologist: FREEMAN DOUGHERTY ([id number])[facility] [place] (SBHLAB)[address] NEUTROPHILS ABSOLUTE 5.1 10*3/uL Normal 1.8-7.5 [facility] Comment on above: Performed By: #### L [id number] ####Aquatic Ecologist: FREEMAN DOUGHERTY ([id number])[facility] [place] (SBHLAB)[address] Neutrophils/100 WBC (Bld) 68.5 % Normal 38.0-82.0 [facility] Comment on above: Performed By: #### L [id number] ####Aquatic Ecologist: FREEMAN DOUGHERTY ([id number])[facility] [place] (SBHLAB)[address] [place] [address] [place] NRBC 0.0 /100 WBCs Normal 0.0-2.0 [facility] Comment on above: Performed By: #### L [id number] ####Aquatic Ecologist: FREEMAN DOUGHERTY ([id number])[facility] [place] (SBHLAB)[address] Platelet mean volume (Bld) [Entitic vol] 10.5 fL Normal 9.0-12.7 [facility] Comment on above: Performed By: #### L [id number] ####Aquatic Ecologist: FREEMAN DOUGHERTY ([id number])[facility] [place] (SBHLAB)[address] Platelets (Bld) [#/Vol] 259 10*3/uL Normal 140-440 [facility] Comment on above: Performed By: #### L [id number] ####Aquatic Ecologist: FREEMAN DOUGHERTY ([id number])[facility] [place] (SBHLAB)[address] RBC (Bld) [#/Vol] 4.09 10*6/uL Normal 3.80-5.20 [facility] Comment on above: Performed By: #### L [id number] ####Aquatic Ecologist: FREEMAN DOUGHERTY ([id number])[facility] [place] (SBHLAB)[address] WBC (Bld) [#/Vol] 7.4 10*3/uL Normal 3.6-10.7 [facility] Comment on above: Performed By: #### L [id number] ####Aquatic Ecologist: FREEMAN DOUGHERTY ([id number])[facility] [place] (SBHLAB)[address] COMPREHENSIVE METABOLIC PANE Mandeep 12-16-2023 Albumin [Mass/Vol] 3.9 g/dL Normal 3.5-5.0 [facility] Comment on above: Performed By: #### L [id number], [id number] ####Aquatic Ecologist: FREEMAN DOUGHERTY ([id number])[facility] [place] (SBHLAB)[address] ALP [Catalytic activity/Vol] 118 U/L Normal 38-126 [facility] Comment on above: Performed By: #### L AB17, [id number] ####Aquatic Ecologist: FREEMAN DOUGHERTY ([id number])[facility] (SBHLAB)[address] ALT [Catalytic activity/Vol] 15 U/L Normal 0-34 [facility] Comment on above: Performed By: #### Nicole SINGER17, [id number] ####Aquatic Ecologist: FREEMAN DOUGHERTY ([id number])[facility] [place] (SBHLAB)[address] Anion gap [Moles/Vol] 8 mmol/L Normal 3-13 [facility] Comment on above: Performed By: #### Nicole AB17, [id number] ####Aquatic Ecologist: FREEMAN DOUGHERTY ([id number])[facility] [place] (SBHLAB)[address] AST [Catalytic activity/Vol] 25 U/L Normal 15-46 [facility] Comment on above: Performed By: #### Nicole AB17, [id number] ####Aquatic Ecologist: FREEMAN DOUGHERTY ([id number])[facility] C[facility] SERVICESN (SBHLAB)[address] Bilirubin [Mass/Vol] 0.7 mg/dL Normal 0.2-1.3 [facility] Comment on above: Performed By: #### Nicole SINGER17, [id number] ####Aquatic Ecologist: FREEMAN DOUGHERTY ([id number])[facility] (SBHLAB)[address] Calcium [Mass/Vol] 9.0 mg/dL Normal 8.4-10.4 [facility] Comment on above: Performed By: #### L AB17, [id number] ####Aquatic Ecologist: FREEMAN DOUGHERTY ([id number])[facility] (SBHLAB)[address] [place] [address] [place] Chloride [Moles/Vol] 104 mmol/L Normal 98-107 [facility] Comment on above: Performed By: #### L AB17, [id number] ####Aquatic Ecologist: FREEMAN DOUGHERTY ([id number])[facility] ([facility])[address] [place] [address] [place] CO2 [Moles/Vol] 28 mmol/L Normal 22-30 [facility] Comment on above: Performed By: #### Nicole AB17, [id number] ####Aquatic Ecologist: FREEMAN DOUGHERTY ([id number])[facility] ([facility])[address] Creatinine [Mass/Vol] 1.21 mg/dL High 0.52-1.04 [facility] Comment on above: Performed By: #### Nicole AB17, [id number] ####Aquatic Ecologist: FREEMAN DOUGHERTY ([id number])[facility] ([facility])[address] GLOMERULAR FILTRATION RATE ML/MIN/1.73 SQ M.PREDICTED 46.3 mL/min/1.73m*2 Low >60.0 [facility] Comment on above: Result Comment: Calc ulation based on the Chronic Kidney Disease Epidemiology Collaboration (CKD-EPI) equation refit without adjustment for race Performed By: #### Nicole SINGER17, [id number] ####Aquatic Ecologist: FREEMAN DOUGHERTY ([id number])[facility] ([facility])[address] Glucose [Mass/Vol] 87 mg/dL Normal 70-100 [facility] Comment on above: Performed By: #### Nicole SINGER17, [id number] ####Aquatic Ecologist: FREEMAN DOUGHERTY ([phone])[facility] ([facility])[address] Potassium [Moles/Vol] 3.8 mmol/L Normal 3.5-5.1 [facility] Comment on above: Performed By: #### L AB17, [id number] ####Aquatic Ecologist: FREEMAN DOUGHERTY ([id number])[facility] ([facility])[address] Protein [Mass/Vol] 6.9 g/dL Normal 6.3-8.2 [facility] Comment on above: Performed By: #### L AB17, [id number] ####Aquatic Ecologist: FREEMAN DOUGHERTY ([phone])[facility] ([facility])[address] Sodium [Moles/Vol] 139 mmol/L Normal 135-145 [facility] Comment on above: Performed By: #### L AB17, [id number] ####Aquatic Ecologist: FREEMAN DOUGHERTY ([id number])[facility] ([facility])[address] Urea nitrogen [Mass/Vol] 27 mg/dL High 7-17 [facility] Comment on above: Performed By: #### L AB17, [id number] ####Aquatic Ecologist: FREEMAN DOUGHERTY ([phone])[facility] ([facility])[address] HEAD NECK ANGIO W AND WO IV CONTRASTon 12-16-2023 CT HEAD NECK ANGIO W AND WO IV CONTRAST Patient Name: CARLINE VILLARREAL : 1945 [facility]#: [id number] Exam Date/Time: 12/16/2023 14:40 Procedure: CT HEAD NECK ANGIO W AND WO IV CONTRAST Ordering Provider: VALENCIA VISHNU Reason For Exam: persistent headache for 3 days; left sided tingling starting yesterday EXAMINATION: CT HEAD NECK ANGIO W AND WO IV CONTRAST, CT HEAD WO IV CONTRAST CLINICAL HISTORY: persistent headache for 3 days; left sided tingling starting yesterday COMPARISON: None TECHNIQUE: CT angiogram of the head and neck were obtained with intravenous contrast. Thin isotropic axial imaging was obtained through the brain and neck from the vertex to the thoracic inlet during rapid IV contrast administration for evaluation of the vessels. Multiplanar and 3D maximum intensity projection reformulations were created from the raw CT data which were interpreted in conjunction with the axial images to render the findings listed below. Measurements of the internal carotid arteries are performed according to NASCET criteria comparing the narrowest diameter of the internal carotid artery with the normal internal carotid artery diameter more distally. Dose reduction was employed with automated exposure control. FINDINGS: CT BRAIN No mass or acute hemorrhage. No evidence of acute infarct. Small area of encephalomalacia in the right striatocapsular region. Gliosis and encephalomalacia in the right parietal lobe. There is also mild generalized brain parenchymal volume loss with commensurate enlargement of the ventricles. There is calcified atherosclerotic plaque in the carotid siphons and vertebral arteries bilaterally. The skull, paranasal sinuses and tympanomastoid cavities are normal. CT ARTERIOGRAM Extracranial Circulation: Aortic Arch: No significant stenosis in the proximal brachiocephalic vessels. Carotid Arteries Right Common Carotid: No stenosis. Right Internal Carotid: Atherosclerotic plaque in the bulb and proximal ICA produces mild (<50%) ICA stenosis. Left Common Carotid: No stenosis. Left Internal Carotid: Mild atherosclerotic plaque in the proximal ICA without significant stenosis. No dissection. Vertebral Arteries: Patent with no stenosis or dissection. Intracranial Circulation Anterior Circulation: The internal carotid arteries are patent with atherosclerotic plaque in the carotid siphons causing estimated moderate ICA stenosis. The proximal MCAs are patent with no significant M1 stenosis. There is short segment severe stenosis or branch occlusion of the inferior division of the right MCA in the right insula (series 6, image 130 and series 3, images [id number]). Chronicity of this observation is uncertain given the presence of encephalomalacia in the right parietal lobe. No other site of MCA arterial stenosis or occlusion is identified. Vertebrobasilar Circulation: Atherosclerotic plaque mildly moderately narrows both intracranial vertebral arteries. There is no flow-limiting basilar stenosis. There is poor filling of the left [employer]. The visualized portion this vessel is very stenotic and irregular. The right [employer] is unremarkable. Visualized small caliber branches in the posterior fossa are unremarkable. Other: No evidence of a soft tissue mass or lymphadenopathy in the neck or superior mediastinum. The lung apices are clear. Small nodular opacity in the posterior aspect of the right upper lobe is most likely a fibrotic opacity. IMPRESSION: CT Head: * No acute intracranial abnormality. 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 CTA Neck: * Less than 50% right ICA stenosis. 0% left ICA stenosis. * No significant vertebral artery stenosis. CTA head: * Multifocal intracranial atherosclerotic disease. * Moderate stenoses of the intracranial ICAs bilaterally. 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 Age is indeterminate, but possibly chronic given encephalomalacia in the right parietal lobe. 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 Report Dictated on Electronically Signed By: Grant Denson MD Electronically Signed Date/Time: 12/16/2023 3:18 PM EDT Pt has left side numbness/tingliness/ Pt with hx of left side stroke. States symptoms started yesterday then went away and came back today. Pt with hx of migrains and dementia. Normal [facility] CT HEAD WO IV CONTRASTon CT HEAD WO IV CONTRAST Patient Name: CARLINE LUNA : 1945 Exam Date/Time: 12/16/2023 14:38 Procedure: CT HEAD WO IV CONTRAST Ordering Provider: VALENCIA VISHNU Reason For Exam: Neuro deficit, acute, stroke suspected EXAMINATION: CT HEAD NECK ANGIO W AND WO IV CONTRAST, CT HEAD WO IV CONTRAST CLINICAL HISTORY: persistent headache for 3 days; left sided tingling starting yesterday COMPARISON: None TECHNIQUE: CT angiogram of the head and neck were obtained with intravenous contrast. Thin isotropic axial imaging was obtained through the brain and neck from the vertex to the thoracic inlet during rapid IV contrast administration for evaluation of the vessels. Multiplanar and 3D maximum intensity projection reformulations were created from the raw CT data which were interpreted in conjunction with the axial images to render the findings listed below. Measurements of the internal carotid arteries are performed according to NASCET criteria comparing the narrowest diameter of the internal carotid artery with the normal internal carotid artery diameter more distally. Dose reduction was employed with automated exposure control. FINDINGS: CT BRAIN No mass or acute hemorrhage. No evidence of acute infarct. Small area of encephalomalacia in the right striatocapsular region. Gliosis and encephalomalacia in the right parietal lobe. There is also mild generalized brain parenchymal volume loss with commensurate enlargement of the ventricles. There is calcified atherosclerotic plaque in the carotid siphons and vertebral arteries bilaterally. The skull, paranasal sinuses and tympanomastoid cavities are normal. CT ARTERIOGRAM Extracranial Circulation: Aortic Arch: No significant stenosis in the proximal brachiocephalic vessels. Carotid Arteries Right Common Carotid: No stenosis. Right Internal Carotid: Atherosclerotic plaque in the bulb and proximal ICA produces mild (<50%) ICA stenosis. Left Common Carotid: No stenosis. Left Internal Carotid: Mild atherosclerotic plaque in the proximal ICA without significant stenosis. No dissection. Vertebral Arteries: Patent with no stenosis or dissection. Intracranial Circulation Anterior Circulation: The internal carotid arteries are patent with atherosclerotic plaque in the carotid siphons causing estimated moderate ICA stenosis. The proximal MCAs are patent with no significant M1 stenosis. There is short segment severe stenosis or branch occlusion of the inferior division of the right MCA in the right insula (series 6, image 130 and series 3, images [id number]). Chronicity of this observation is uncertain given the presence of encephalomalacia in the right parietal lobe. No other site of MCA arterial stenosis or occlusion is identified. Vertebrobasilar Circulation: Atherosclerotic plaque mildly moderately narrows both intracranial vertebral arteries. There is no flow-limiting basilar stenosis. There is poor filling of the left [employer]. The visualized portion this vessel is very stenotic and irregular. The right [employer] is unremarkable. Visualized small caliber branches in the posterior fossa are unremarkable. Other: No evidence of a soft tissue mass or lymphadenopathy in the neck or superior mediastinum. The lung apices are clear. Small nodular opacity in the posterior aspect of the right upper lobe is most likely a fibrotic opacity. IMPRESSION: CT Head: * No acute intracranial abnormality. 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 CTA Neck: * Less than 50% right ICA stenosis. 0% left ICA stenosis. * No significant vertebral artery stenosis. CTA head: * Multifocal intracranial atherosclerotic disease. * Moderate stenoses of the intracranial ICAs bilaterally. 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 Age is indeterminate, but possibly chronic given encephalomalacia in the right parietal lobe. 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 Report Dictated on Electronically Signed By: Grant Denson MD Electronically Signed Date/Time: 12/16/2023 3:18 PM EDT Pt has left side numbness/tingliness/ Pt with hx of left side stroke. States symptoms started yesterday then went away and came back today. Pt with hx of migrains and dementia. Normal [facility] CT Head WO contraston 2023 Patient Name: CARLINE VILLARREAL : 1945 [facility]#: [id number] Exam Date/Time: 12/16/2023 14:38 Procedure: CT HEAD WO IV CONTRAST Ordering Provider: VALENCIA VISHNU Reason For Exam: Neuro deficit, acute, stroke suspected EXAMINATION: CT HEAD NECK ANGIO W AND WO IV CONTRAST, CT HEAD WO IV CONTRAST CLINICAL HISTORY: persistent headache for 3 days; left sided tingling starting yesterday COMPARISON: None TECHNIQUE: CT angiogram of the head and neck were obtained with intravenous contrast. Thin isotropic axial imaging was obtained through the brain and neck from the vertex to the thoracic inlet during rapid IV contrast administration for evaluation of the vessels. Multiplanar and 3D maximum intensity projection reformulations were created from the raw CT data which were interpreted in conjunction with the axial images to render the findings listed below. Measurements of the internal carotid arteries are performed according to NASCET criteria comparing the narrowest diameter of the internal carotid artery with the normal internal carotid artery diameter more distally. Dose reduction was employed with automated exposure control. FINDINGS: CT BRAIN No mass or acute hemorrhage. No evidence of acute infarct. Small area of encephalomalacia in the right striatocapsular region. Gliosis and encephalomalacia in the right parietal lobe. There is also mild generalized brain parenchymal volume loss with commensurate enlargement of the ventricles. There is calcified atherosclerotic plaque in the carotid siphons and vertebral arteries bilaterally. The skull, paranasal sinuses and tympanomastoid cavities are normal. CT ARTERIOGRAM Extracranial Circulation: Aortic Arch: No significant stenosis in the proximal brachiocephalic vessels. Carotid Arteries Right Common Carotid: No stenosis. Right Internal Carotid: Atherosclerotic plaque in the bulb and proximal ICA produces mild (<50%) ICA stenosis. Left Common Carotid: No stenosis. Left Internal Carotid: Mild atherosclerotic plaque in the proximal ICA without significant stenosis. No dissection. Vertebral Arteries: Patent with no stenosis or dissection. Intracranial Circulation Anterior Circulation: The internal carotid arteries are patent with atherosclerotic plaque in the carotid siphons causing estimated moderate ICA stenosis. The proximal MCAs are patent with no significant M1 stenosis. There is short segment severe stenosis or branch occlusion of the inferior division of the right MCA in the right insula (series 6, image 130 and series 3, images [id number]). Chronicity of this observation is uncertain given the presence of encephalomalacia in the right parietal lobe. No other site of MCA arterial stenosis or occlusion is identified. Vertebrobasilar Circulation: Atherosclerotic plaque mildly moderately narrows both intracranial vertebral arteries. There is no flow-limiting basilar stenosis. There is poor filling of the left [employer]. The visualized portion this vessel is very stenotic and irregular. The right [employer] is unremarkable. Visualized small caliber branches in the posterior fossa are unremarkable. Other: No evidence of a soft tissue mass or lymphadenopathy in the neck or superior mediastinum. The lung apices are clear. Small nodular opacity in the posterior aspect of the right upper lobe is most likely a fibrotic opacity. [facility] [place] [facility] Grant Denson M D - 12/16/2023 [facility] 1945 [id number] Exam Date/Time: 12/16/2023 14:38 Procedure: CT HEAD WO IV CONTRAST Ordering Provider: VALENCIA VISHNU Reason For Exam: Neuro deficit, acute, stroke suspected EXAMINATION: CT HEAD NECK ANGIO W AND WO IV CONTRAST, CT HEAD WO IV CONTRAST CLINICAL HISTORY: persistent headache for 3 days; left sided tingling starting yesterday COMPARISON: None TECHNIQUE: CT angiogram of the head and neck were obtained with intravenous contrast. Thin isotropic axial imaging was obtained through the brain and neck from the vertex to the thoracic inlet during rapid IV contrast administration for evaluation of the vessels. Multiplanar and 3D maximum intensity projection reformulations were created from the raw CT data which were interpreted in conjunction with the axial images to render the findings listed below. Measurements of the internal carotid arteries are performed according to NASCET criteria comparing the narrowest diameter of the internal carotid artery with the normal internal carotid artery diameter more distally. Dose reduction was employed with automated exposure control. FINDINGS: CT BRAIN No mass or acute hemorrhage. No evidence of acute infarct. Small area of encephalomalacia in the right striatocapsular region. Gliosis and encephalomalacia in the right parietal lobe. There is also mild generalized brain parenchymal volume loss with commensurate enlargement of the ventricles. There is calcified atherosclerotic plaque in the carotid siphons and vertebral arteries bilaterally. The skull, paranasal sinuses and tympanomastoid cavities are normal. CT ARTERIOGRAM Extracranial Circulation: Aortic Arch: No significant stenosis in the proximal brachiocephalic vessels. Carotid Arteries Right Common Carotid: No stenosis. Right Internal Carotid: Atherosclerotic plaque in the bulb and proximal ICA produces mild (<50%) ICA stenosis. Left Common Carotid: No stenosis. Left Internal Carotid: Mild atherosclerotic plaque in the proximal ICA without significant stenosis. No dissection. Vertebral Arteries: Patent with no stenosis or dissection. Intracranial Circulation Anterior Circulation: The internal carotid arteries are patent with atherosclerotic plaque in the carotid siphons causing estimated moderate ICA stenosis. The proximal MCAs are patent with no significant M1 stenosis. There is short segment severe stenosis or branch occlusion of the inferior division of the right MCA in the right insula (series 6, image 130 and series 3, images [id number]). Chronicity of this observation is uncertain given the presence of encephalomalacia in the right parietal lobe. No other site of MCA arterial stenosis or occlusion is identified. Vertebrobasilar Circulation: Atherosclerotic plaque mildly moderately narrows both intracranial vertebral arteries. There is no flow-limiting basilar stenosis. There is poor filling of the left [employer]. The visualized portion this vessel is very stenotic and irregular. The right [employer] is unremarkable. Visualized small caliber branches in the posterior fossa are unremarkable. Other: No evidence of a soft tissue mass or lymphadenopathy in the neck or superior mediastinum. The lung apices are clear. Small nodular opacity in the posterior aspect of the right upper lobe is most likely a fibrotic opacity. IMPRESSION: CT Head: * No acute intracranial abnormality. 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 CTA Neck: * Less than 50% right ICA stenosis. 0% left ICA stenosis. * No significant vertebral artery stenosis. CTA head: * Multifocal intracranial atherosclerotic disease. * Moderate stenoses of the intracranial ICAs bilaterally. 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 Age is indeterminate, but possibly chronic given encephalomalacia in the right parietal lobe. 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 Report Dictated on Electronically Signed By: Grant Denson MD Electronically Signed Date/Time: 12/16/2023 3:18 PM EDT [facility] Radiology Study observation (narrative) [facility] alth CTA Head vessels and Neck ve ssels WO and W contrast Lionel 12-16-2023 Patient Name: CARLINE VILLARREAL : 1945 [facility]#: [id number] Exam Date/Time: 12/16/2023 14:40 Procedure: CT HEAD NECK ANGIO W AND WO IV CONTRAST Ordering Provider: VALENCIA VISHNU Reason For Exam: persistent headache for 3 days; left sided tingling starting yesterday EXAMINATION: CT HEAD NECK ANGIO W AND WO IV CONTRAST, CT HEAD WO IV CONTRAST CLINICAL HISTORY: persistent headache for 3 days; left sided tingling starting yesterday COMPARISON: None TECHNIQUE: CT angiogram of the head and neck were obtained with intravenous contrast. Thin isotropic axial imaging was obtained through the brain and neck from the vertex to the thoracic inlet during rapid IV contrast administration for evaluation of the vessels. Multiplanar and 3D maximum intensity projection reformulations were created from the raw CT data which were interpreted in conjunction with the axial images to render the findings listed below. Measurements of the internal carotid arteries are performed according to NASCET criteria comparing the narrowest diameter of the internal carotid artery with the normal internal carotid artery diameter more distally. Dose reduction was employed with automated exposure control. FINDINGS: CT BRAIN No mass or acute hemorrhage. No evidence of acute infarct. Small area of encephalomalacia in the right striatocapsular region. Gliosis and encephalomalacia in the right parietal lobe. There is also mild generalized brain parenchymal volume loss with commensurate enlargement of the ventricles. There is calcified atherosclerotic plaque in the carotid siphons and vertebral arteries bilaterally. The skull, paranasal sinuses and tympanomastoid cavities are normal. CT ARTERIOGRAM Extracranial Circulation: Aortic Arch: No significant stenosis in the proximal brachiocephalic vessels. Carotid Arteries Right Common Carotid: No stenosis. Right Internal Carotid: Atherosclerotic plaque in the bulb and proximal ICA produces mild (<50%) ICA stenosis. Left Common Carotid: No stenosis. Left Internal Carotid: Mild atherosclerotic plaque in the proximal ICA without significant stenosis. No dissection. Vertebral Arteries: Patent with no stenosis or dissection. Intracranial Circulation Anterior Circulation: The internal carotid arteries are patent with atherosclerotic plaque in the carotid siphons causing estimated moderate ICA stenosis. The proximal MCAs are patent with no significant M1 stenosis. There is short segment severe stenosis or branch occlusion of the inferior division of the right MCA in the right insula (series 6, image 130 and series 3, images [id number]). Chronicity of this observation is uncertain given the presence of encephalomalacia in the right parietal lobe. No other site of MCA arterial stenosis or occlusion is identified. Vertebrobasilar Circulation: Atherosclerotic plaque mildly moderately narrows both intracranial vertebral arteries. There is no flow-limiting basilar stenosis. There is poor filling of the left [employer]. The visualized portion this vessel is very stenotic and irregular. The right [employer] is unremarkable. Visualized small caliber branches in the posterior fossa are unremarkable. Other: No evidence of a soft tissue mass or lymphadenopathy in the neck or superior mediastinum. The lung apices are clear. Small nodular opacity in the posterior aspect of the right upper lobe is most likely a fibrotic opacity. [facility] [place] [facility] Grant Denson M D - 12/16/2023 [facility] 1945 [id number] Exam Date/Time: 12/16/2023 14:40 Procedure: CT HEAD NECK ANGIO W AND WO IV CONTRAST Ordering Provider: VALENCIA VISHNU Reason For Exam: persistent headache for 3 days; left sided tingling starting yesterday EXAMINATION: CT HEAD NECK ANGIO W AND WO IV CONTRAST, CT HEAD WO IV CONTRAST CLINICAL HISTORY: persistent headache for 3 days; left sided tingling starting yesterday COMPARISON: None TECHNIQUE: CT angiogram of the head and neck were obtained with intravenous contrast. Thin isotropic axial imaging was obtained through the brain and neck from the vertex to the thoracic inlet during rapid IV contrast administration for evaluation of the vessels. Multiplanar and 3D maximum intensity projection reformulations were created from the raw CT data which were interpreted in conjunction with the axial images to render the findings listed below. Measurements of the internal carotid arteries are performed according to NASCET criteria comparing the narrowest diameter of the internal carotid artery with the normal internal carotid artery diameter more distally. Dose reduction was employed with automated exposure control. FINDINGS: CT BRAIN No mass or acute hemorrhage. No evidence of acute infarct. Small area of encephalomalacia in the right striatocapsular region. Gliosis and encephalomalacia in the right parietal lobe. There is also mild generalized brain parenchymal volume loss with commensurate enlargement of the ventricles. There is calcified atherosclerotic plaque in the carotid siphons and vertebral arteries bilaterally. The skull, paranasal sinuses and tympanomastoid cavities are normal. CT ARTERIOGRAM Extracranial Circulation: Aortic Arch: No significant stenosis in the proximal brachiocephalic vessels. Carotid Arteries Right Common Carotid: No stenosis. Right Internal Carotid: Atherosclerotic plaque in the bulb and proximal ICA produces mild (<50%) ICA stenosis. Left Common Carotid: No stenosis. Left Internal Carotid: Mild atherosclerotic plaque in the proximal ICA without significant stenosis. No dissection. Vertebral Arteries: Patent with no stenosis or dissection. Intracranial Circulation Anterior Circulation: The internal carotid arteries are patent with atherosclerotic plaque in the carotid siphons causing estimated moderate ICA stenosis. The proximal MCAs are patent with no significant M1 stenosis. There is short segment severe stenosis or branch occlusion of the inferior division of the right MCA in the right insula (series 6, image 130 and series 3, images [phone]). Chronicity of this observation is uncertain given the presence of encephalomalacia in the right parietal lobe. No other site of MCA arterial stenosis or occlusion is identified. Vertebrobasilar Circulation: Atherosclerotic plaque mildly moderately narrows both intracranial vertebral arteries. There is no flow-limiting basilar stenosis. There is poor filling of the left [employer] SALES DIRECTOR. The visualized portion this vessel is very stenotic and irregular. The right [employer] SALES DIRECTOR is unremarkable. Visualized small caliber branches in the posterior fossa are unremarkable. Other: No evidence of a soft tissue mass or lymphadenopathy in the neck or superior mediastinum. The lung apices are clear. Small nodular opacity in the posterior aspect of the right upper lobe is most likely a fibrotic opacity. IMPRESSION: CT Head: * No acute intracranial abnormality. 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 CTA Neck: * Less than 50% right ICA stenosis. 0% left ICA stenosis. * No significant vertebral artery stenosis. CTA head: * Multifocal intracranial atherosclerotic disease. * Moderate stenoses of the intracranial ICAs bilaterally. 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 Age is indeterminate, but possibly chronic given encephalomalacia in the right parietal lobe. 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 Report Dictated on Electronically Signed By: Grant Denson MD Electronically Signed Date/Time: 12/16/2023 3:18 PM EDT [facility] Radiology Study observation (narrative) [facility] Comprehensive metabolic 1998 panelon 12-16-2023 Albumin [Mass/Vol] 3.9 g/dL 3.5 - 5.0 g/dL [facility] ALP [Catalytic activity/Vol] 118 U/L 38 - 126 U/L [facility] ALT [Catalytic activity/Vol] 15 U/L 0 - 34 U/L [facility] Anion gap [Moles/Vol] 8 mmol/L 3 - 13 mmol/L [facility] AST [Catalytic activity/Vol] 25 U/L 15 - 46 U/L [facility] Bilirubin [Mass/Vol] 0.7 mg/dL 0.2 - 1 .3 mg/dL [facility] Calcium [Mass/Vol] 9.0 mg/dL 8.4 - 10. 4 mg/dL [facility] Chloride [Moles/Vol] 104 mmol/L 98 - 10 7 mmol/L [facility] CO2 [Moles/Vol] 28 mmol/L 22 - 30 mmol/L [facility] Creatinine [Mass/Vol] 1.21 mg/dL High 0.52 - 1.04 mg/dL [facility] GFR/1.73 sq M.predicted MDRD (S/P/Bld) [Vol rate/Area] 46.3 mL/min/{1.73_m2} Low - PINF [facility] Comment on above: Calculation based on the Chronic Kidney Disease Epidemiology Collaboration (CKD-EPI) equation refit without adjustment for race Glucose [Mass/Vol] 87 mg/dL 70 - 100 mg/dL [facility] Interpretation and review of laboratory results Abnormal [facility] Potassium [Moles/Vol] 3.8 mmol/L 3.5 - 5.1 mmol/L [facility] Protein [Mass/Vol] 6.9 g/dL 6.3 - 8.2 g/dL [facility] Sodium [Moles/Vol] 139 mmol/L 135 - 145 mmol/L [facility] Urea nitrogen [Mass/Vol] 27 mg/dL High 7 - 17 mg/dL [facility] ED Nursing Noteon 12-16-2023 ED Nursing Note Pt presents from [facility] [place] with Left side numbness/tingliness/ Pt with hx of left side stroke. States symptoms started yesterday then went away and came back today. Pt with hx of migrains and dementia. Charlene Griggs RN 12/16/23 1313 [facility] ED Provider Noteon ED Provider Note EMERGENCY DEPARTMENT ENCOUNTER Pt Name: Carline Villarrael Birthdate 1945 Date of evaluation: 12/16/2023 ED Provider: Cameron Valencia DO CHIEF COMPLAINT No chief complaint on file. HISTORY OF PRESENT ILLNESS (Location/Symptom, Timing/Onset, Context/Setting, Quality, Duration, Modifying Factors, Severity) Note limiting factors. I wore appropriate PPE for the entirety of this encounter. HPI Carline Villarreal is a 77 y.o. who presents to the emergency department with chief complaint of headache and weakness. Patient states headache started about 3 days ago. She is currently resident nursing facility. They have been treating the headache which was thought to be a migraine headache. Does get relief with treatment but it seems to come back. Then yesterday afternoon, she also developed some left-sided arm and leg tingling. Patient became concerned because these were symptoms of she had with her previous stroke about 8 years ago. Notes symptoms are primarily tingling but also feels like the left side slightly weaker. She does note some mild residual weakness from the previous stroke. No recent falls or any injuries. No associated chest pain, shortness of breath, vision loss, abdominal pain, vomiting, diarrhea, dysuria. Nursing Notes were reviewed. Limitations to history: None Outside historians: EMS REVIEW OF SYSTEMS Review of Systems Pertinent positives and negatives as per HPI PAST MEDICAL HISTORY No past medical history on file. SURGICAL HISTORY No past surgical history on file. CURRENT MEDICATIONS Previous Medications No medications on file ALLERGIES Patient has no allergy information on record. FAMILY HISTORY No family history on file. SOCIAL HISTORY Social History Socioeconomic History Marital status: PHYSICAL EXAM ED Triage Vitals [12/16/23 1311] Temp Heart Rate Resp BP 36.6 ?C (97.8 ?F) 74 -- (!) 113/45 SpO2 Temp src Heart Rate Source Patient Position 94 % -- Monitor -- BP Location FiO2 (%) -- -- Physical Exam Vitals and nursing note reviewed. Constitutional: General: She is not in acute distress. Appearance: She is well-developed. HENT: Head: Normocephalic and atraumatic. Eyes: Conjunctiva/sclera: Conjunctivae normal. Cardiovascular: Rate and Rhythm: Normal rate and regular rhythm. Heart sounds: No murmur heard. Pulmonary: Effort: Pulmonary effort is normal. No respiratory distress. Breath sounds: Normal breath sounds. Abdominal: Palpations: Abdomen is soft. Tenderness: There is no abdominal tenderness. Musculoskeletal: General: No swelling. Cervical back: Neck supple. Skin: General: Skin is warm and dry. Capillary Refill: Capillary refill takes less than 2 seconds. Neurological: Mental Status: She is alert and oriented to person, place, and time. Cranial Nerves: No cranial nerve deficit. Coordination: Coordination normal. Psychiatric: Mood and Affect: Mood normal. NIH Stroke Scale 1A. Level of Consciousness: Alert, Keenly Responsive 1B. Ask Month and Age: Both Questions Right 1C. Blink Eyes & Squeeze Hands: Performs Both Tasks 2. Best Gaze: Normal 3. Visual: No Visual Loss 4. Facial Palsy: Normal Symmetrical Movements 5A. Motor - Left Arm: Drift 5B. Motor - Right Arm: No Drift 6A. Motor - Left Leg: Drift 6B. Motor - Right Leg: No Drift 7. Limb Ataxia: Absent 8. Sensory Loss: Normal 9. Best Language: No Aphasia 10. Dysarthria: Normal 11. Extinction and Inattention: No Abnormality NIH Stroke Scale: 2 DIAGNOSTIC RESULTS RADIOLOGY (Per Emergency Physician): Interpretation per the Radiologist below, if available at the time of this note: CTA head neck angio w and wo IV contrast Final Result CT Head: * No acute intracranial abnormality. 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 CTA Neck: * Less than 50% right ICA stenosis. 0% left ICA stenosis. * No significant vertebral artery stenosis. CTA head: * Multifocal intracranial atherosclerotic disease. * Moderate stenoses of the intracranial ICAs bilaterally. 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 Age is indeterminate, but possibly chronic given encephalomalacia in the right parietal lobe. 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 Report Dictated on Electronically Signed By: Grant Denson MD Electronically Signed Date/Time: 12/16/2023 3:[address] head wo IV contrast Final Result CT Head: * No acute intracranial abnormality. 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 CTA Neck: * Less than 50% right ICA stenosis. 0% left ICA stenosis. * No significant vertebral artery stenosis. CTA head: * Multifocal intracranial atherosclerotic disease. (more content not included)... Normal [facility] Laboratory - Chemistry and C hemistry - challengeon 12-16-2023 Troponin I.cardiac [Mass/Vol] ng/mL [facility] - 0.034 ng/mL [facility] Troponin I.cardiac [Mass/Vol] ng/mL [facility] - 0.034 ng/mL [facility] Glucose [Mass/Vol] 123 mg/dL High 70 - 100 mg/dL [facility] Troponin I.cardiac [Mass/Vol] ng/mL [facility] - 0.034 ng/mL [facility] Laboratory - Chemistry and C hemistry - challengeOrdered By: Olive Peralta on 12-16-2023 Glucose [Mass/Vol] 123 mg/dL [facility] Laboratory - Coagulationon 0 12-16-2023 aPTT Coag (PPP) [Time] 25.1 s 20.0 - 30.5 s [facility] INR Coag (PPP) [Relative time] 1.0 {INR} 0.9 - 1.1 [facility] Comment on above: Recommended Anticoag ulant Therapy: SEE BELOW ----- INR of 2.0 - 3.0 : - Prophylaxis of Venous Thrombosis (high-risk surgery) - Treatment of Venous Thrombosis - Treatment of Pulmonary Embolism (Includes tissue heart valves, Acute Myocardial Infarction to prevent systemic embolism, Valvular Heart Disease, and Atrial Fibrillation) ----- INR of 2.5 - 3.5 : - Mechanical Prosthetic Valves (high risk) - If oral anticoagulant therapy is used to prevent Myocardial Infarction PT Coag (Bld) [Time] 10.9 s 9.0 - 1 2.0 s [facility] No Panel Informationon 12-15 P [place] 41 degrees [facility] LA Interval 205 ms [facility] QRS [place] 23 degrees [facility] QRSD Interval 98 [facility] 478 ms [facility] QTC Interval 433 ms [facility] T Wave [place] 9 degrees [facility] Avi Peralta MD - 12/16/2023 IMPRESSION: Sinus bradycardia Abnormal R-wave progression, early transition No acute change compared to first previous EKG. Electronically Signed On 12-16-2023 22:33:18 EDT by Avi Peralta [facility] Avi Peralta MD - 12/16/2023 IMPRESSION: Sinus bradycardia Abnormal R-wave progression, early transition Borderline repolarization abnormality Electronically Signed On 12-16-2023 21:17:50 EDT by Avi Peralta [facility] Interpretation and review of laboratory results Abnormal [facility] Performed by: [facility], [address] [place] [address] CLIA ID: [id number] [facility] CT Head: * No acute intracranial abnormality. 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 CTA Neck: * Less than 50% right ICA stenosis. 0% left ICA stenosis. * No significant vertebral artery stenosis. CTA head: * Multifocal intracranial atherosclerotic disease. * Moderate stenoses of the intracranial ICAs bilaterally. 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 Age is indeterminate, but possibly chronic given encephalomalacia in the right parietal lobe. 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 Report Dictated on Electronically Signed By: Grant Denson MD Electronically Signed Date/Time: 12/16/2023 3:18 PM EDT [facility] Interpretation and review of laboratory results Normal [facility] Radiology Study observation (narrative) Summ He alth No Panel InformationOrdered By: Avi Peralta on 12-16-2023 P [place] 10 degrees [facility] Work Phone: [place] Interval 188 ms [facility] Work Phone: QRS [place] 11 degrees [facility] Work Phone: QRSD Interval 93 ms [facility] Work Phone: QT Interval 484 ms [facility] Work Phone: QTC Interval 435 ms [facility] Work Phone: T Wave [place] -4 degrees [facility] Work Phone: [facility] Work Phone: No Panel InformationOrdered By: Olive Peralta on 12-16-2023 Interpretation and review of laboratory results Normal [facility] Radiology Study observation (narrative) [facility] amanda No Panel InformationOrdered By: Grant Denson on 12-16-2023 [facility] Work Phone: PROTIME AND APTTon aPTT Coag (Bld) [Time] 25.1 s Normal 20.0-30.5 [facility] Comment on above: Performed By: #### L [id number] ####Aquatic Ecologist: FREEMAN DOUGHERTY ([id number])[facility] ([facility])[address] [place] [address] INR Coag (PPP) [Relative time] 1.0 {INR} Normal 0.9-1.1 [facility] Comment on above: Result Comment: Patrick mmended Anticoagulant Therapy: SEE BELOW ----- INR of 2.0 - 3.0 : - Prophylaxis of Venous Thrombosis (high-risk surgery) - Treatment of Venous Thrombosis - Treatment of Pulmonary Embolism (Includes tissue heart valves, Acute Myocardial Infarction to prevent systemic embolism, Valvular Heart Disease, and Atrial Fibrillation) ----- INR of 2.5 - 3.5 : - Mechanical Prosthetic Valves (high risk) - If oral anticoagulant therapy is used to prevent Myocardial Infarction Performed By: #### L [id number] ####Aquatic Ecologist: FREEMAN DOUGHERTY ([id number])[facility] ([facility] PT Coag (PPP) [Time] 10.9 s Normal 9.0-12.0 [facility] Comment on above: Performed By: #### L [id number] ####Aquatic Ecologist: FREEMAN DOUGHERTY ([id number])[facility] ([facility])[address] Progress Noteon 12-16-2023 Progress Note [facility] Villarreal : 1945 Primary Care Physician: Evi Guevara The patient and/or family/surrogate voluntarily agreed to participate in ACP services. Patient?s cognitive capacity: Does not have capacity Code Status: [x] [FULL CODE - Continue all advanced life support: CPR,intubation,invasiv e procedures] [_] [DNR-CCA - DO NOT do CPR, intubation] [_] [DNR-ART OBJECTS SUPERVISOR - Comfort care only] [_] DNR form [was/was not] signed Summary of discussion: The patient health care POA/ surrogate is the following: Ethan Pillai. [Condition that instigated the ACP on this DOS, relevant PMH, functional status, goals of care, and whom this was discussed with including names and relationship to the patient, and any relevant advance care documentation discussion] I answered all the patient/family questions that I could within the range and scope of the current medical situation. We discussed the medical conditions, risks, benefits, outcomes, and goals of care at this time for the patient's medical issues at hand in the face of the patient's chronic issues and current presentation. Total time spent: 5 minutes were spent discussing the patient's resuscitation status, advance care planning, and end of life care, with patient and/or family/surrogate. Bartolo Meehan MD Acute care solutions 12/16/2023, 4:16 PM Normal [facility] TROPONIN Ion 12-16-2023 Troponin I.cardiac [Mass/Vol] ng/mL Normal <0.034 [facility] Comment on above: Result Comment: SUKH Smith COMMENTS: Patients with high levels of Biotin oral intake (ie >5 mg/day) may have falsely decreased Troponin levels. Performed By: #### L [id number] ####Aquatic Ecologist: FREEMAN DOUGHERTY ([id number])[facility] ([facility] [place] [address] Troponin I.cardiac [Mass/Vol] ng/mL Normal <0.034 [facility] Comment on above: Result Comment: SUKH Smith COMMENTS: Patients with high levels of Biotin oral intake (ie >5 mg/day) may have falsely decreased Troponin levels. Performed By: #### L [id number] ####Aquatic Ecologist: FREEMAN FARHAT ([id number])[facility] TROPONIN, WITH SERIAL REFLEX on 12-16-2023 Troponin I.cardiac [Mass/Vol] ng/mL Normal <0.034 [facility] Comment on above: Result Comment: SUKH Smith COMMENTS: Patients with high levels of Biotin oral intake (ie >5 mg/day) may have falsely decreased Troponin levels. Performed By: #### L [id number], [id number] ####Aquatic Ecologist: FREEMAN FARHAT ([id number])[facility] ([facility])[address] Troponin I.cardiac [Mass/Vol ]on 12-16-2023 Interpretation and review of laboratory results Normal [facility] Patients with high levels of Biotin oral intake (ie >5 mg/day) may have falsely decreased Troponin levels. [facility] Interpretation and review of laboratory results Normal [facility] Patients with high levels of Biotin oral intake (ie >5 mg/day) may have falsely decreased Troponin levels. [facility] Interpretation and review of laboratory results Normal [facility] Patients with high levels of Biotin oral intake (ie >5 mg/day) may have falsely decreased Troponin levels. [facility] Vital signson 12-16-2023 Heart rate 49 /min bpm [facility] Vital signsOrdered By: Fahad Peralta on 12-16-2023 Heart rate 49 /min bpm [facility] Work Phone: Basophil percentageOrdered B y: Evi Guevara on 09-23-2023 Bilirubin [Mass/Vol] 0.60 mg/dL 0.20-1.00 [facility] Comment on above: For patients on eltr ombopag therapy, use of Dimension [place] TBIL is not recommended. Chloride [Moles/Vol] 107 mmol/L 98-107 [facility] Cholesterol [Mass/Vol] 120 mg/dL <200 [facility] Comment on above: <200 mg/dL Desirable 200-240 mg/dL Borderline >240 mg/dL High Risk Glucose [Mass/Vol] 114 mg/dL 74-106 [facility] Comment on above: Fasting Glucose resu lt from 100 to 125 mg/dL suggests IMPAIRED HOMEOSTASIS per A.D.A. criteria. Hemoglobin (Bld) [Mass/Vol] 12.3 g/dL 12.0-15.0 [facility] Potassium [Moles/Vol] 3.8 mmol/L 3.5-5.[address] [facility] Protein [Mass/Vol] 6.1 g/dL 6.4-8.2 [facility] Sodium [Moles/Vol] 140 mmol/L 136-145 [facility] Triglyceride [Mass/Vol] 106 mg/dL <199 [facility] Comment on above: The drugs N-Acetylcy steine and Metamizole may falsely depress this assay.Serum Triglycerides Reference Interval Normal <150 mg/dL Borderline high 150 - 199 mg/dL High 200 - 499 mg/dL Very High > or = 500 mg/dL WBC (Bld) [#/Vol] 5.7 10*3/uL 4.4-11.0 [facility] Determination of erythrocyte mean corpuscular volume (MCV)Ordered By: Evi Guevara on 09-23-2023 MCV (RBC) [Entitic vol] 97.9 fL 81-99 [facility] Erythrocyte distribution wid th ratioOrdered By: Evi Guevara on 09-23-2023 Erythrocyte distribution width (RBC) [Ratio] 13.0 % 11.6-14.6 [facility] Erythrocyte distribution wid th standard deviationOrdered By: Evi Guevara on 09-23-2023 Erythrocyte distribution width (RBC) [Entitic vol] 46.3 fL 35.1-43.9 [facility] Hematocrit Auto (Bld) [Volum e fraction]Ordered By: Eiv Guevara on 09-23-2023 Hematocrit (Bld) [Volume fraction] 38.0 % 37-47 [facility] Laboratory - Chemistry and C hemistry - challengeOrdered By: Evi Guevara on 09-23-2023 Albumin/Globulin [Mass ratio] 1.0 {ratio} 0.9-2.4 [facility] ALP [Catalytic activity/Vol] 102 U/L 45-117 [facility] ALT [Catalytic activity/Vol] 15 U/L 13-56 [facility] Cholesterol in HDL [Mass/Vol] 45 mg/dL >40 [facility] Comment on above: The drugs N-Acetylcy steine and Metamizole may falsely depress this assay. Reference Range HDL <40 mg/dL Low HDL Cholesterol HDL >or= 60 mg/dL High HDL Cholesterol Cholesterol in LDL [Mass/Vol] 54 mg/dL 0-130 [facility] CO2 [Moles/Vol] 27.0 mmol/L 21.0-32.0 [facility] Globulin (S) [Mass/Vol] 3.1 g/dL 2.2-4.2 [facility] Urea nitrogen/Creatinine [Mass ratio] 25.7 mg/mg 10-20 [facility] Laboratory - Hematology and Cell countsOrdered By: Evi Guevara on 09-23-2023 MCH (RBC) [Entitic mass] 31.7 pg 27.0-32.0 [facility] MCHC (RBC) [Mass/Vol] 32.4 g/dL 32-[address] [facility] Platelet mean volume (Bld) [Entitic vol] 11.0 fL 6.2-12.0 [facility] Platelets (Bld) [#/Vol] 214 10*3/uL 150-450 [facility] No Panel InformationOrdered By: Evi Guevara on 09-23-2023 Estimated GFR (MDRD) Amer 48 mL/min >60 [facility] Comment on above: GFR Calc Estimated GFR (MDRD) Non-Af Amer 40 mL/min >60 [facility] Comment on above: Non- GFR Calc VLDL Cholesterol 21 mg/dL 5-40 [facility] RBC Auto (Bld) [#/Vol]Ordere d By: Evi Guevara on 09-23-2023 RBC (Bld) [#/Vol] 3.88 10*6/uL 4.2-5.4 [facility] Serum or plasma calcium jeffrey urement (mass/volume)Ordered By: Evi Guevara on 09-23-2023 Calcium [Mass/Vol] 8.8 mg/dL 8.5-10.1 [facility] Serum or plasma creatinine m easurement (mass/volume)Ordered By: Evi Guevara on 09-23-2023 Creatinine [Mass/Vol] 1.36 mg/dL 0.55-1.[address] [facility] Comment on above: The validity of the calculated GFR & GFRAA in patients over 70 years has not been determined. Clinical correlation is essential. Serum or plasma thyroid stim ulating hormone (TSH) measurement (units/volume)Ordered By: Evi Guevara on 09-23-2023 TSH Qn 3.30 uIU/mL 0.358-3.74 [facility] Serum or plasma urea nitroge n measurement (mass/volume)Ordered By: Evi Guevara on 09-23-2023 Urea nitrogen [Mass/Vol] 35 mg/dL 7-18 [facility] Thin prep Papanicolaou smear with manual screeningOrdered By: Evi Guevara on 09-23-2023 Thin prep Papanicolaou smear with manual screening 3.0 g/dL 3.2-5.0 [facility] Thin prep Papanicolaou smear with manual screening 17 U/L 15-37 [facility] Thin prep Papanicolaou smear with manual screening 6 5-15 [facility] Basophil percentageOrdered B y: Evi Guevara on 09-13-2023 Chloride [Moles/Vol] 109 mmol/L 98-107 [facility] Cholesterol [Mass/Vol] 132 mg/dL <200 [facility] Comment on above: <200 mg/dL Desirable 200-240 mg/dL Borderline >240 mg/dL High Risk Glucose [Mass/Vol] 113 mg/dL 74-106 [facility] Comment on above: Fasting Glucose resu lt from 100 to 125 mg/dL suggests IMPAIRED HOMEOSTASIS per A.D.A. criteria. Hemoglobin (Bld) [Mass/Vol] 12.6 g/dL 12.0-15.0 [facility] Potassium [Moles/Vol] 4.0 mmol/L 3.5-5.[address] [facility] Sodium [Moles/Vol] 142 mmol/L 136-145 [facility] Triglyceride [Mass/Vol] 76 mg/dL <199 [facility] Comment on above: The drugs N-Acetylcy steine and Metamizole may falsely depress this assay.Serum Triglycerides Reference Interval Normal <150 mg/dL Borderline high 150 - 199 mg/dL High 200 - 499 mg/dL Very High > or = 500 mg/dL WBC (Bld) [#/Vol] 5.9 10*3/uL 4.4-11.0 [facility] Determination of erythrocyte mean corpuscular volume (MCV)Ordered By: Evi Guevara on 09-13-2023 MCV (RBC) [Entitic vol] 97.2 fL 81-99 [facility] Erythrocyte distribution wid th ratioOrdered By: Evi Guevara on 09-13-2023 Erythrocyte distribution width (RBC) [Ratio] 13.1 % 11.6-14.6 [facility] Erythrocyte distribution wid th standard deviationOrdered By: Evi Guevara on 09-13-2023 Erythrocyte distribution width (RBC) [Entitic vol] 46.4 fL 35.1-43.9 [facility] Hematocrit Auto (Bld) [Volum e fraction]Ordered By: Evi Guevara on 09-13-2023 Hematocrit (Bld) [Volume fraction] 37.8 % 37-47 [facility] Laboratory - Chemistry and C hemistry - challengeOrdered By: Evi Guevara on 09-13-2023 Cholesterol in HDL [Mass/Vol] 48 mg/dL >40 [facility] Comment on above: The drugs N-Acetylcy steine and Metamizole may falsely depress this assay. Reference Range HDL <40 mg/dL Low HDL Cholesterol HDL >or= 60 mg/dL High HDL Cholesterol Cholesterol in LDL [Mass/Vol] 69 mg/dL 0-130 [facility] CO2 [Moles/Vol] 25.0 mmol/L 21.0-32.0 [facility] Urea nitrogen/Creatinine [Mass ratio] 23.3 mg/mg 10-20 [facility] Laboratory - Hematology and Cell countsOrdered By: Evi Guevara on 09-13-2023 MCH (RBC) [Entitic mass] 32.4 pg 27.0-32.0 [facility] MCHC (RBC) [Mass/Vol] 33.3 g/dL 32-[address] [facility] Platelet mean volume (Bld) [Entitic vol] 11.0 fL 6.2-12.0 [facility] Platelets (Bld) [#/Vol] 214 10*3/uL 150-450 [facility] No Panel InformationOrdered By: Evi Guevara on 09-13-2023 Estimated GFR (MDRD) Amer 50 mL/min >60 [facility] Comment on above: GFR Calc Estimated GFR (MDRD) Non-Af Amer 41 mL/min >60 [facility] Comment on above: Non- GFR Calc Vitamin D 25-Hydroxy 46.6 ng/mL [facility] Comment on above: Vitamin D 25(OH) Sta tus Range Deficiency <20 ng/mL (50nmol/L) Insufficiency 20 - 30 ng/mL (50 - 75 nmol/L) Sufficiency 30 - 100 ng/mL (75 - 250 nmol/L) Toxicity >100 ng/mL (>250 nmol/L) VLDL Cholesterol 15 mg/dL 5-40 [facility] RBC Auto (Bld) [#/Vol]Ordere d By: Evi Guevara on 09-13-2023 RBC (Bld) [#/Vol] 3.89 10*6/uL 4.2-5.4 [facility] Serum or plasma calcium jeffrey urement (mass/volume)Ordered By: Evi Guevara on 09-13-2023 Calcium [Mass/Vol] 9.3 mg/dL 8.5-10.1 [facility] Serum or plasma creatinine m easurement (mass/volume)Ordered By: Evi Guevara on 09-13-2023 Creatinine [Mass/Vol] 1.33 mg/dL 0.55-1.[address] [facility] Comment on above: The validity of the calculated GFR & GFRAA in patients over 70 years has not been determined. Clinical correlation is essential. Serum or plasma thyroid stim ulating hormone (TSH) measurement (units/volume)Ordered By: Evi Guevara on 09-13-2023 TSH Qn 3.12 uIU/mL 0.358-3.74 [facility] Serum or plasma urea nitroge n measurement (mass/volume)Ordered By: Evi Guevara on 09-13-2023 Urea nitrogen [Mass/Vol] 31 mg/dL 7-18 [facility] Thin prep Papanicolaou smear with manual screeningOrdered By: Evi Guevara on 09-13-2023 Thin prep Papanicolaou smear with manual screening 8 5-15 [facility] Whole blood hemoglobin A1c/t otal hemoglobin ratio (mass fraction)Ordered By: Evi Guevara on 09-13-2023 HbA1c (Bld) [Mass fraction] 5.5 % 3.8-5.6 [facility] Comment on above: Normal < 5.7 % Predi abetic 5.7 - 6.4 % Diabetic >or= 6.5 % Please note range changes. Basophil percentageOrdered B y: Evi Guevara on 09-10-2023 Chloride [Moles/Vol] 107 mmol/L 98-107 [facility] Glucose [Mass/Vol] 166 mg/dL 74-106 [facility] Comment on above: Fasting Glucose resu lt greater than or equal to 126 mg/dL suggests DIABETES MELLITUS per A.D.A. criteria. Hemoglobin (Bld) [Mass/Vol] 13.4 g/dL 12.0-15.0 [facility] Potassium [Moles/Vol] 3.7 mmol/L 3.5-5.[address] [facility] Sodium [Moles/Vol] 140 mmol/L 136-145 [facility] WBC (Bld) [#/Vol] 5.3 10*3/uL 4.4-11.0 [facility] Determination of erythrocyte mean corpuscular volume (MCV)Ordered By: Evi Guevara on 09-10-2023 MCV (RBC) [Entitic vol] 96.3 fL 81-99 [facility] Erythrocyte distribution wid th ratioOrdered By: Evi Guevara on 09-10-2023 Erythrocyte distribution width (RBC) [Ratio] 12.9 % 11.6-14.6 [facility] Erythrocyte distribution wid th standard deviationOrdered By: Evi Guevara on 09-10-2023 Erythrocyte distribution width (RBC) [Entitic vol] 46.3 fL 35.1-43.9 [facility] Hematocrit Auto (Bld) [Volum e fraction]Ordered By: Evi Guevara on 09-10-2023 Hematocrit (Bld) [Volume fraction] 39.2 % 37-47 [facility] Laboratory - Chemistry and C hemistry - challengeOrdered By: Evi Guevara on 09-10-2023 CO2 [Moles/Vol] 26.0 mmol/L 21.0-32.0 [facility] Urea nitrogen/Creatinine [Mass ratio] 23.4 mg/mg 10-20 [facility] Laboratory - Hematology and Cell countsOrdered By: Evi Guevara on 09-10-2023 MCH (RBC) [Entitic mass] 32.9 pg 27.0-32.0 [facility] MCHC (RBC) [Mass/Vol] 34.2 g/dL 32-[address] [facility] Platelet mean volume (Bld) [Entitic vol] 10.8 fL 6.2-12.0 [facility] Platelets (Bld) [#/Vol] 219 10*3/uL 150-450 [facility] No Panel InformationOrdered By: Evi Guevara on 09-10-2023 Estimated GFR (MDRD) Amer 48 mL/min >60 [facility] Comment on above: GFR Calc Estimated GFR (MDRD) Non-Af Amer 40 mL/min >60 [facility] Comment on above: Non- GFR Calc RBC Auto (Bld) [#/Vol]Ordere d By: Evi Guevara on 09-10-2023 RBC (Bld) [#/Vol] 4.07 10*6/uL 4.2-5.4 [facility] Serum or plasma calcium jeffrey urement (mass/volume)Ordered By: Evi Guevara on 09-10-2023 Calcium [Mass/Vol] 9.4 mg/dL 8.5-10.1 [facility] Serum or plasma creatinine m easurement (mass/volume)Ordered By: Evi Guevara on 09-10-2023 Creatinine [Mass/Vol] 1.37 mg/dL 0.55-1.[address] [facility] Comment on above: The validity of the calculated GFR & GFRAA in patients over 70 years has not been determined. Clinical correlation is essential. Serum or plasma urea nitroge n measurement (mass/volume)Ordered By: Evi Guevara on 09-10-2023 Urea nitrogen [Mass/Vol] 32 mg/dL 7-18 [facility] Thin prep Papanicolaou smear with manual screeningOrdered By: Evi Guevara on 09-10-2023 Thin prep Papanicolaou smear with manual screening 7 5-15 [facility] Basophil percentageOrdered B y: Evi Guevara on 08-13-2023 Chloride [Moles/Vol] 108 mmol/L 98-107 [facility] Glucose [Mass/Vol] 122 mg/dL 74-106 [facility] Comment on above: Fasting Glucose resu lt from 100 to 125 mg/dL suggests IMPAIRED HOMEOSTASIS per A.D.A. criteria. Hemoglobin (Bld) [Mass/Vol] 13.2 g/dL 12.0-15.0 [facility] Potassium [Moles/Vol] 3.6 mmol/L 3.5-5.[address] [facility] Sodium [Moles/Vol] 141 mmol/L 136-145 [facility] WBC (Bld) [#/Vol] 6.3 10*3/uL 4.4-11.0 [facility] Determination of erythrocyte mean corpuscular volume (MCV)Ordered By: Evi Guevara on 08-13-2023 MCV (RBC) [Entitic vol] 98.5 fL 81-99 [facility] Erythrocyte distribution wid th ratioOrdered By: Evi Guevara on 08-13-2023 Erythrocyte distribution width (RBC) [Ratio] 13.3 % 11.6-14.6 [facility] Erythrocyte distribution wid th standard deviationOrdered By: Evi Guevara on 08-13-2023 Erythrocyte distribution width (RBC) [Entitic vol] 48.2 fL 35.1-43.9 [facility] Hematocrit Auto (Bld) [Volum e fraction]Ordered By: Evi Guevara on 08-13-2023 Hematocrit (Bld) [Volume fraction] 40.4 % 37-47 [facility] Laboratory - Chemistry and C hemistry - challengeOrdered By: Evi Guevara on 08-13-2023 CO2 [Moles/Vol] 29.0 mmol/L 21.0-32.0 [facility] Urea nitrogen/Creatinine [Mass ratio] 22.4 mg/mg 10-20 [facility] Laboratory - Hematology and Cell countsOrdered By: Evi Guevara on 08-13-2023 MCH (RBC) [Entitic mass] 32.2 pg 27.0-32.0 [facility] MCHC (RBC) [Mass/Vol] 32.7 g/dL 32-[address] [facility] Platelet mean volume (Bld) [Entitic vol] 11.0 fL 6.2-12.0 [facility] Platelets (Bld) [#/Vol] 230 10*3/uL 150-450 [facility] No Panel InformationOrdered By: Evi Guevara on 08-13-2023 Estimated GFR (MDRD) Amer 43 mL/min >60 [facility] Comment on above: GFR Calc Estimated GFR (MDRD) Non-Af Amer 35 mL/min >60 [facility] Comment on above: Non- GFR Calc RBC Auto (Bld) [#/Vol]Ordere d By: Evi Guevara on 08-13-2023 RBC (Bld) [#/Vol] 4.10 10*6/uL 4.2-5.4 [facility] Serum or plasma calcium jeffrey urement (mass/volume)Ordered By: Evi Guevara on 08-13-2023 Calcium [Mass/Vol] 8.9 mg/dL 8.5-10.1 [facility] Serum or plasma creatinine m easurement (mass/volume)Ordered By: Evi Guevara on 08-13-2023 Creatinine [Mass/Vol] 1.52 mg/dL 0.55-1.[address] [facility] Comment on above: The validity of the calculated GFR & GFRAA in patients over 70 years has not been determined. Clinical correlation is essential. Serum or plasma urea nitroge n measurement (mass/volume)Ordered By: Evi Guevara on 08-13-2023 Urea nitrogen [Mass/Vol] 34 mg/dL 7-18 [facility] Thin prep Papanicolaou smear with manual screeningOrdered By: Evi Guevara on 08-13-2023 Thin prep Papanicolaou smear with manual screening 4 5-15 [facility] Basophil percentageOrdered B y: Evi Guevara on 08-02-2023 Chloride [Moles/Vol] 112 mmol/L 98-107 [facility] Glucose [Mass/Vol] 126 mg/dL 74-106 [facility] Comment on above: Fasting Glucose resu lt greater than or equal to 126 mg/dL suggests DIABETES MELLITUS per A.D.A. criteria. Hemoglobin (Bld) [Mass/Vol] 12.3 g/dL 12.0-15.0 [facility] Potassium [Moles/Vol] 3.7 mmol/L 3.5-5.[address] [facility] Sodium [Moles/Vol] 141 mmol/L 136-145 [facility] WBC (Bld) [#/Vol] 5.1 10*3/uL 4.4-11.0 [facility] Determination of erythrocyte mean corpuscular volume (MCV)Ordered By: Evi Guevara on 08-02-2023 MCV (RBC) [Entitic vol] 97.7 fL 81-99 [facility] Erythrocyte distribution wid th ratioOrdered By: Evi Guevara on 08-02-2023 Erythrocyte distribution width (RBC) [Ratio] 13.5 % 11.6-14.6 [facility] Erythrocyte distribution wid th standard deviationOrdered By: Evi Guevara on 08-02-2023 Erythrocyte distribution width (RBC) [Entitic vol] 48.5 fL 35.1-43.9 [facility] Hematocrit Auto (Bld) [Volum e fraction]Ordered By: Evi Guevara on 08-02-2023 Hematocrit (Bld) [Volume fraction] 37.5 % 37-47 [facility] Laboratory - Chemistry and C hemistry - challengeOrdered By: Evi Guevara on 08-02-2023 CO2 [Moles/Vol] 25.0 mmol/L 21.0-32.0 [facility] Urea nitrogen/Creatinine [Mass ratio] 17.9 mg/mg 10-20 [facility] Laboratory - Hematology and Cell countsOrdered By: Evi Guevara on 08-02-2023 MCH (RBC) [Entitic mass] 32.0 pg 27.0-32.0 [facility] MCHC (RBC) [Mass/Vol] 32.8 g/dL 32-[address] [facility] Platelets (Bld) [#/Vol] 217 10*3/uL 150-450 [facility] No Panel InformationOrdered By: Evi Guevara on 08-02-2023 Estimated GFR (MDRD) Amer 45 mL/min >60 [facility] Comment on above: GFR Calc Estimated GFR (MDRD) Non-Af Amer 37 mL/min >60 [facility] Comment on above: Non- GFR Calc Platelet mean volume Kt-Ec ker (Bld) [Entitic vol]Ordered By: Evi Guevara on 08-02-2023 Platelet mean volume (Bld) [Entitic vol] 11.0 fL 6.2-12.0 [facility] RBC Auto (Bld) [#/Vol]Ordere d By: Evi Guevara on 08-02-2023 RBC (Bld) [#/Vol] 3.84 10*6/uL 4.2-5.4 [facility] Serum or plasma calcium jeffrey urement (mass/volume)Ordered By: Evi Guevara on 08-02-2023 Calcium [Mass/Vol] 9.1 mg/dL 8.5-10.1 [facility] Serum or plasma creatinine m easurement (mass/volume)Ordered By: Evi Guevara on 08-02-2023 Creatinine [Mass/Vol] 1.45 mg/dL 0.55-1.[address] [facility] Comment on above: The validity of the calculated GFR & GFRAA in patients over 70 years has not been determined. Clinical correlation is essential. Serum or plasma urea nitroge n measurement (mass/volume)Ordered By: Evi Guevara on 08-02-2023 Urea nitrogen [Mass/Vol] 26 mg/dL 7-18 [facility] Thin prep Papanicolaou smear with manual screeningOrdered By: Evi Guevara on 08-02-2023 Thin prep Papanicolaou smear with manual screening 4 5-15 [facility] Basophil percentageOrdered B y: Evi Guevara on 07-13-2023 Chloride [Moles/Vol] 110 mmol/L 98-107 [facility] Glucose [Mass/Vol] 134 mg/dL 74-106 [facility] Comment on above: Fasting Glucose resu lt greater than or equal to 126 mg/dL suggests DIABETES MELLITUS per A.D.A. criteria. Potassium [Moles/Vol] 4.0 mmol/L 3.5-5.[address] [facility] Sodium [Moles/Vol] 141 mmol/L 136-145 [facility] Laboratory - Chemistry and C hemistry - challengeOrdered By: Evi Guevara on 07-13-2023 CO2 [Moles/Vol] 26.0 mmol/L 21.0-32.0 [facility] Urea nitrogen/Creatinine [Mass ratio] 19.7 mg/mg 10-20 [facility] No Panel InformationOrdered By: Evi Guevara on 07-13-2023 Estimated GFR (MDRD) Amer 48 mL/min >60 [facility] Comment on above: GFR Calc Estimated GFR (MDRD) Non-Af Amer 40 mL/min >60 [facility] Comment on above: Non- GFR Calc Serum or plasma calcium jeffrey urement (mass/volume)Ordered By: Evi Guevara on 07-13-2023 Calcium [Mass/Vol] 9.7 mg/dL 8.5-10.1 [facility] Serum or plasma creatinine m easurement (mass/volume)Ordered By: Evi Guevara on 07-13-2023 Creatinine [Mass/Vol] 1.37 mg/dL 0.55-1.[address] [facility] Comment on above: The validity of the calculated GFR & GFRAA in patients over 70 years has not been determined. Clinical correlation is essential. Serum or plasma urea nitroge n measurement (mass/volume)Ordered By: Evi Guevara on 07-13-2023 Urea nitrogen [Mass/Vol] 27 mg/dL 7-18 [facility] Thin prep Papanicolaou smear with manual screeningOrdered By: Evi Guevara on 07-13-2023 Thin prep Papanicolaou smear with manual screening 5 5-15 [facility] Basophil percentageOrdered B y: Evi Guevara on 06-29-2023 Chloride [Moles/Vol] 110 mmol/L 98-107 [facility] Glucose [Mass/Vol] 141 mg/dL 74-106 [facility] Comment on above: Fasting Glucose resu lt greater than or equal to 126 mg/dL suggests DIABETES MELLITUS per A.D.A. criteria. Potassium [Moles/Vol] 3.9 mmol/L 3.5-5.[address] [facility] Sodium [Moles/Vol] 141 mmol/L 136-145 [facility] WBC (Bld) [#/Vol] 6.8 10*3/uL 4.4-11.0 [facility] Blood erythrocytes count (nu mber/volume)Ordered By: Evi Guevara on 06-29-2023 RBC (Bld) [#/Vol] 4.24 10*6/uL 4.2-5.4 [facility] Blood hemoglobin measurement (mass/volume)Ordered By: Evi Guevara on 06-29-2023 Hemoglobin (Bld) [Mass/Vol] 13.7 g/dL 12.0-15.0 [facility] Blood platelet mean volumeOr dered By: Evi Guevara on 06-29-2023 Platelet mean volume (Bld) [Entitic vol] 11.4 fL 6.2-12.0 [facility] Determination of erythrocyte mean corpuscular volume (MCV)Ordered By: Evi Guevara on 06-29-2023 MCV (RBC) [Entitic vol] 97.9 fL 81-99 [facility] Hematocrit Auto (Bld) [Volum e fraction]Ordered By: Evi Guevara on 06-29-2023 Hematocrit (Bld) [Volume fraction] 41.5 % 37-47 [facility] Laboratory - Chemistry and C hemistry - challengeOrdered By: Evi Guevara on 06-29-2023 CO2 [Moles/Vol] 27.0 mmol/L 21.0-32.0 [facility] Urea nitrogen/Creatinine [Mass ratio] 22.7 mg/mg 10-20 [facility] Laboratory - Hematology and Cell countsOrdered By: Evi Guevara on 06-29-2023 Erythrocyte distribution width (RBC) [Entitic vol] 49.7 fL 35.1-43.9 [facility] Erythrocyte distribution width (RBC) [Ratio] 13.7 % 11.6-14.6 [facility] MCH (RBC) [Entitic mass] 32.3 pg 27.0-32.0 [facility] MCHC Auto (RBC) [Mass/Vol]Or dered By: Evi Guevara on 06-29-2023 MCHC (RBC) [Mass/Vol] 33.0 g/dL 32-[address] [facility] No Panel InformationOrdered By: Evi Guevara on 06-29-2023 Estimated GFR (MDRD) Amer 46 mL/min >60 [facility] Comment on above: GFR Calc Estimated GFR (MDRD) Non-Af Amer 38 mL/min >60 [facility] Comment on above: Non- GFR Calc Platelets bldOrdered By: Mark Guevara on 06-29-2023 Platelets (Bld) [#/Vol] 215 10*3/uL 150-450 [facility] Serum or plasma calcium jeffrey urement (mass/volume)Ordered By: Evi Guevara on 06-29-2023 Calcium [Mass/Vol] 9.3 mg/dL 8.5-10.1 [facility] Serum or plasma creatinine m easurement (mass/volume)Ordered By: Evi Guevara on 06-29-2023 Creatinine [Mass/Vol] 1.41 mg/dL 0.55-1.[address] [facility] Comment on above: The validity of the calculated GFR & GFRAA in patients over 70 years has not been determined. Clinical correlation is essential. Serum or plasma urea nitroge n measurement (mass/volume)Ordered By: Evi Guevara on 06-29-2023 Urea nitrogen [Mass/Vol] 32 mg/dL 7-18 [facility] Thin prep Papanicolaou smear with manual screeningOrdered By: Evi Guevara on 06-29-2023 Thin prep Papanicolaou smear with manual screening 4 5-15 [facility] Basophil percentageOrdered B y: Evi Guevara on 06-21-2023 Chloride [Moles/Vol] 111 mmol/L 98-107 [facility] Glucose [Mass/Vol] 124 mg/dL 74-106 [facility] Comment on above: Fasting Glucose resu lt from 100 to 125 mg/dL suggests IMPAIRED HOMEOSTASIS per A.D.A. criteria. Potassium [Moles/Vol] 4.0 mmol/L 3.5-5.[address] [facility] Comment on above: Slight Hemolysis, Re sult may be falsely increased. Sodium [Moles/Vol] 142 mmol/L 136-145 [facility] WBC (Bld) [#/Vol] 5.7 10*3/uL 4.4-11.0 [facility] Blood erythrocytes count (nu mber/volume)Ordered By: Evi Guevara on 06-21-2023 RBC (Bld) [#/Vol] 3.93 10*6/uL 4.2-5.4 [facility] Blood hemoglobin measurement (mass/volume)Ordered By: Evi Guevara on 06-21-2023 Hemoglobin (Bld) [Mass/Vol] 12.6 g/dL 12.0-15.0 [facility] Blood platelet mean volumeOr dered By: Eiv Guevara on 06-21-2023 Platelet mean volume (Bld) [Entitic vol] 11.2 fL 6.2-12.0 [facility] Determination of erythrocyte mean corpuscular volume (MCV)Ordered By: Evi Guevara on 06-21-2023 MCV (RBC) [Entitic vol] 98.0 fL 81-99 [facility] Hematocrit Auto (Bld) [Volum e fraction]Ordered By: Evi Guevara on 06-21-2023 Hematocrit (Bld) [Volume fraction] 38.5 % 37-47 [facility] Laboratory - Chemistry and C hemistry - challengeOrdered By: Evi Guevara on 06-21-2023 CO2 [Moles/Vol] 23.0 mmol/L 21.0-32.0 [facility] Urea nitrogen/Creatinine [Mass ratio] 19.3 mg/mg 10-20 [facility] Laboratory - Hematology and Cell countsOrdered By: Evi Guevara on 06-21-2023 Erythrocyte distribution width (RBC) [Entitic vol] 49.9 fL 35.1-43.9 [facility] Erythrocyte distribution width (RBC) [Ratio] 13.6 % 11.6-14.6 [facility] MCH (RBC) [Entitic mass] 32.1 pg 27.0-32.0 [facility] MCHC Auto (RBC) [Mass/Vol]Or dered By: Evi Guevara on 06-21-2023 MCHC (RBC) [Mass/Vol] 32.7 g/dL 32-[address] [facility] No Panel InformationOrdered By: Evi Guevara on 06-21-2023 Estimated GFR (MDRD) Amer 49 mL/min >60 [facility] Comment on above: GFR Calc Estimated GFR (MDRD) Non-Af Amer 40 mL/min >60 [facility] Comment on above: Non- GFR Calc Platelets bldOrdered By: Mark Guevara on 06-21-2023 Platelets (Bld) [#/Vol] 207 10*3/uL 150-450 [facility] Serum or plasma calcium jeffrey urement (mass/volume)Ordered By: Evi Guevara on 06-21-2023 Calcium [Mass/Vol] 8.7 mg/dL 8.5-10.1 [facility] Serum or plasma creatinine m easurement (mass/volume)Ordered By: Evi Guevara on 06-21-2023 Creatinine [Mass/Vol] 1.35 mg/dL 0.55-1.[address] [facility] Comment on above: The validity of the calculated GFR & GFRAA in patients over 70 years has not been determined. Clinical correlation is essential. Serum or plasma urea nitroge n measurement (mass/volume)Ordered By: Evi Guevara on 06-21-2023 Urea nitrogen [Mass/Vol] 26 mg/dL 7-18 [facility] Thin prep Papanicolaou smear with manual screeningOrdered By: Evi Guevara on 06-21-2023 Thin prep Papanicolaou smear with manual screening 8 5-15 [facility] Basophil percentageOrdered B y: Evi Guevara on 06-02-2023 Chloride [Moles/Vol] 110 mmol/L 98-107 [facility] Glucose [Mass/Vol] 132 mg/dL 74-106 [facility] Comment on above: Fasting Glucose resu lt greater than or equal to 126 mg/dL suggests DIABETES MELLITUS per A.D.A. criteria. Potassium [Moles/Vol] 3.6 mmol/L 3.5-5.[address] [facility] Sodium [Moles/Vol] 140 mmol/L 136-145 [facility] WBC (Bld) [#/Vol] 5.6 10*3/uL 4.4-11.0 [facility] Blood erythrocytes count (nu mber/volume)Ordered By: Evi Guevara on 06-02-2023 RBC (Bld) [#/Vol] 3.98 10*6/uL 4.2-5.4 [facility] Blood hemoglobin measurement (mass/volume)Ordered By: Evi Guevara on 06-02-2023 Hemoglobin (Bld) [Mass/Vol] 13.0 g/dL 12.0-15.0 [facility] Blood platelet mean volumeOr dered By: Evi Guevara on 06-02-2023 Platelet mean volume (Bld) [Entitic vol] 11.1 fL 6.2-12.0 [facility] Determination of erythrocyte mean corpuscular volume (MCV)Ordered By: Evi Guevara on 06-02-2023 MCV (RBC) [Entitic vol] 97.5 fL 81-99 [facility] Hematocrit Auto (Bld) [Volum e fraction]Ordered By: Evi Guevara on 06-02-2023 Hematocrit (Bld) [Volume fraction] 38.8 % 37-47 [facility] Laboratory - Chemistry and C hemistry - challengeOrdered By: Evi Guevara on 06-02-2023 CO2 [Moles/Vol] 26.0 mmol/L 21.0-32.0 [facility] Urea nitrogen/Creatinine [Mass ratio] 16.7 mg/mg 10-20 [facility] Laboratory - Hematology and Cell countsOrdered By: Evi Guevara on 06-02-2023 Erythrocyte distribution width (RBC) [Entitic vol] 49.2 fL 35.1-43.9 [facility] Erythrocyte distribution width (RBC) [Ratio] 13.7 % 11.6-14.6 [facility] MCH (RBC) [Entitic mass] 32.7 pg 27.0-32.0 [facility] MCHC Auto (RBC) [Mass/Vol]Or dered By: Evi Guevara on 06-02-2023 MCHC (RBC) [Mass/Vol] 33.5 g/dL 32-[address] [facility] No Panel InformationOrdered By: Evi Guevara on 06-02-2023 Estimated GFR (MDRD) Amer 47 mL/min >60 [facility] Estimated GFR (MDRD) Non-Af Amer 39 mL/min >60 [facility] Platelets bldOrdered By: Mark Guevara on 06-02-2023 Platelets (Bld) [#/Vol] 224 10*3/uL 150-450 [facility] Serum or plasma calcium jeffrey urement (mass/volume)Ordered By: Evi Guevara on 06-02-2023 Calcium [Mass/Vol] 8.9 mg/dL 8.5-10.1 [facility] Serum or plasma creatinine m easurement (mass/volume)Ordered By: Evi Guevara on 06-02-2023 Creatinine [Mass/Vol] 1.38 mg/dL 0.55-1.[address] [facility] Comment on above: The validity of the calculated GFR & GFRAA in patients over 70 years has not been determined. Clinical correlation is essential. Serum or plasma urea nitroge n measurement (mass/volume)Ordered By: Evi Guevara on 06-02-2023 Urea nitrogen [Mass/Vol] 23 mg/dL 7-18 [facility] Thin prep Papanicolaou smear with manual screeningOrdered By: Evi Guevara on 06-02-2023 Thin prep Papanicolaou smear with manual screening 4 5-15 [facility] Basophil percentageOrdered B y: Evi Guevara on 05-20-2023 Chloride [Moles/Vol] 111 mmol/L 98-107 [facility] Glucose [Mass/Vol] 121 mg/dL 74-106 [facility] Comment on above: Fasting Glucose resu lt from 100 to 125 mg/dL suggests IMPAIRED HOMEOSTASIS per A.D.A. criteria. Potassium [Moles/Vol] 4.0 mmol/L 3.5-5.[address] [facility] Sodium [Moles/Vol] 144 mmol/L 136-145 [facility] WBC (Bld) [#/Vol] 6.4 10*3/uL 4.4-11.0 [facility] Blood erythrocytes count (nu mber/volume)Ordered By: Evi Guevara on 05-20-2023 RBC (Bld) [#/Vol] 4.40 10*6/uL 4.2-5.4 [facility] Blood hemoglobin measurement (mass/volume)Ordered By: Evi Guevara on 05-20-2023 Hemoglobin (Bld) [Mass/Vol] 14.2 g/dL 12.0-15.0 [facility] Blood platelet mean volumeOr dered By: Evi Guevara on 05-20-2023 Platelet mean volume (Bld) [Entitic vol] 11.2 fL 6.2-12.0 [facility] Determination of erythrocyte mean corpuscular volume (MCV)Ordered By: Evi Guevara on 05-20-2023 MCV (RBC) [Entitic vol] 98.0 fL 81-99 [facility] Hematocrit Auto (Bld) [Volum e fraction]Ordered By: Evi Guevara on 05-20-2023 Hematocrit (Bld) [Volume fraction] 43.1 % 37-47 [facility] Laboratory - Chemistry and C hemistry - challengeOrdered By: Evi Guevara on 05-20-2023 CO2 [Moles/Vol] 26.0 mmol/L 21.0-32.0 [facility] Urea nitrogen/Creatinine [Mass ratio] 20.9 mg/mg 10-20 [facility] Laboratory - Hematology and Cell countsOrdered By: Evi Guevara on 05-20-2023 Erythrocyte distribution width (RBC) [Entitic vol] 48.8 fL 35.1-43.9 [facility] Erythrocyte distribution width (RBC) [Ratio] 13.4 % 11.6-14.6 [facility] MCH (RBC) [Entitic mass] 32.3 pg 27.0-32.0 [facility] MCHC Auto (RBC) [Mass/Vol]Or dered By: Evi Guevara on 05-20-2023 MCHC (RBC) [Mass/Vol] 32.9 g/dL 32-[address] [facility] No Panel InformationOrdered By: Evi Guevara on 05-20-2023 Estimated GFR (MDRD) Amer 44 mL/min >60 [facility] Comment on above: GFR Calc Estimated GFR (MDRD) Non-Af Amer 36 mL/min >60 [facility] Comment on above: Non- GFR Calc Platelets bldOrdered By: Mark Guevara on 05-20-2023 Platelets (Bld) [#/Vol] 226 10*3/uL 150-450 [facility] Serum or plasma calcium jeffrey urement (mass/volume)Ordered By: Evi Guevara on 05-20-2023 Calcium [Mass/Vol] 9.1 mg/dL 8.5-10.1 [facility] Serum or plasma creatinine m easurement (mass/volume)Ordered By: Evi Guevara on 05-20-2023 Creatinine [Mass/Vol] 1.48 mg/dL 0.55-1.[address] [facility] Comment on above: The validity of the calculated GFR & GFRAA in patients over 70 years has not been determined. Clinical correlation is essential. Serum or plasma urea nitroge n measurement (mass/volume)Ordered By: Evi Guevara on 05-20-2023 Urea nitrogen [Mass/Vol] 31 mg/dL 7-18 [facility] Thin prep Papanicolaou smear with manual screeningOrdered By: Evi Guevara on 05-20-2023 Thin prep Papanicolaou smear with manual screening 7 5-15 [facility] Basophil percentageOrdered B y: Evi Guevara on 05-13-2023 Chloride [Moles/Vol] 108 mmol/L 98-107 [facility] Glucose [Mass/Vol] 127 mg/dL 74-106 [facility] Comment on above: Fasting Glucose resu lt greater than or equal to 126 mg/dL suggests DIABETES MELLITUS per A.D.A. criteria. Potassium [Moles/Vol] 3.7 mmol/L 3.5-5.[address] [facility] Sodium [Moles/Vol] 141 mmol/L 136-145 [facility] Laboratory - Chemistry and C hemistry - challengeOrdered By: Evi Guevara on 05-13-2023 CO2 [Moles/Vol] 25.0 mmol/L 21.0-32.0 [facility] Urea nitrogen/Creatinine [Mass ratio] 24.0 mg/mg 10-20 [facility] No Panel InformationOrdered By: Evi Guevara on 05-13-2023 Estimated GFR (MDRD) Amer 43 mL/min >60 [facility] Comment on above: GFR Calc Estimated GFR (MDRD) Non-Af Amer 36 mL/min >60 [facility] Comment on above: Non- GFR Calc Serum or plasma calcium jeffrey urement (mass/volume)Ordered By: Evi Guevara on 05-13-2023 Calcium [Mass/Vol] 9.2 mg/dL 8.5-10.1 [facility] Serum or plasma creatinine m easurement (mass/volume)Ordered By: Evi Guevara on 05-13-2023 Creatinine [Mass/Vol] 1.50 mg/dL 0.55-1.[address] [facility] Comment on above: The validity of the calculated GFR & GFRAA in patients over 70 years has not been determined. Clinical correlation is essential. Serum or plasma urea nitroge n measurement (mass/volume)Ordered By: Evi Guevara on 05-13-2023 Urea nitrogen [Mass/Vol] 36 mg/dL 7-18 [facility] Thin prep Papanicolaou smear with manual screeningOrdered By: Evi Guevara on 05-13-2023 Thin prep Papanicolaou smear with manual screening 8 5-15 [facility] Basophil percentageOrdered B y: Evi Guevara on 04-22-2023 Chloride [Moles/Vol] 110 mmol/L 98-107 [facility] Glucose [Mass/Vol] 145 mg/dL 74-106 [facility] Comment on above: Fasting Glucose resu lt greater than or equal to 126 mg/dL suggests DIABETES MELLITUS per A.D.A. criteria. Potassium [Moles/Vol] 3.8 mmol/L 3.5-5.[address] [facility] Sodium [Moles/Vol] 141 mmol/L 136-145 [facility] WBC (Bld) [#/Vol] 6.3 10*3/uL 4.4-11.0 [facility] Blood erythrocytes count (nu mber/volume)Ordered By: Evi Guevara on 04-22-2023 RBC (Bld) [#/Vol] 3.84 10*6/uL 4.2-5.4 [facility] Blood hemoglobin measurement (mass/volume)Ordered By: Evi Guevara on 04-22-2023 Hemoglobin (Bld) [Mass/Vol] 12.7 g/dL 12.0-15.0 [facility] Blood platelet mean volumeOr dered By: Evi Guevara on 04-22-2023 Platelet mean volume (Bld) [Entitic vol] 11.2 fL 6.2-12.0 [facility] Determination of erythrocyte mean corpuscular volume (MCV)Ordered By: Evi Guevara on 04-22-2023 MCV (RBC) [Entitic vol] 99.7 fL 81-99 [facility] Hematocrit Auto (Bld) [Volum e fraction]Ordered By: Evi Guevara on 04-22-2023 Hematocrit (Bld) [Volume fraction] 38.3 % 37-47 [facility] Laboratory - Chemistry and C hemistry - challengeOrdered By: Evi Guevara on 04-22-2023 CO2 [Moles/Vol] 26.0 mmol/L 21.0-32.0 [facility] Urea nitrogen/Creatinine [Mass ratio] 20.1 mg/mg 10-20 [facility] Laboratory - Hematology and Cell countsOrdered By: Evi Guevara on 04-22-2023 Erythrocyte distribution width (RBC) [Entitic vol] 50.5 fL 35.1-43.9 [facility] Erythrocyte distribution width (RBC) [Ratio] 13.8 % 11.6-14.6 [facility] MCH (RBC) [Entitic mass] 33.1 pg 27.0-32.0 [facility] MCHC Auto (RBC) [Mass/Vol]Or dered By: Evi Guevara on 04-22-2023 MCHC (RBC) [Mass/Vol] 33.2 g/dL 32-[address] [facility] No Panel InformationOrdered By: Evi Guevara on 04-22-2023 Estimated GFR (MDRD) Amer 49 mL/min >60 [facility] Comment on above: GFR Calc Estimated GFR (MDRD) Non-Af Amer 41 mL/min >60 [facility] Comment on above: Non- GFR Calc Platelets bldOrdered By: Mark Guevara on 04-22-2023 Platelets (Bld) [#/Vol] 223 10*3/uL 150-450 [facility] Serum or plasma calcium jeffrey urement (mass/volume)Ordered By: Evi Guevara on 04-22-2023 Calcium [Mass/Vol] 9.0 mg/dL 8.5-10.1 [facility] Serum or plasma creatinine m easurement (mass/volume)Ordered By: Evi Guevara on 04-22-2023 Creatinine [Mass/Vol] 1.34 mg/dL 0.55-1.[address] [facility] Comment on above: The validity of the calculated GFR & GFRAA in patients over 70 years has not been determined. Clinical correlation is essential. Serum or plasma urea nitroge n measurement (mass/volume)Ordered By: Evi Guevara on 04-22-2023 Urea nitrogen [Mass/Vol] 27 mg/dL 7-18 [facility] Thin prep Papanicolaou smear with manual screeningOrdered By: Evi Guevara on 04-22-2023 Thin prep Papanicolaou smear with manual screening 5 5-15 [facility] Basophil percentageOrdered B y: Evi Guevara on 04-21-2023 Chloride [Moles/Vol] 107 mmol/L 98-107 [facility] Glucose [Mass/Vol] 133 mg/dL 74-106 [facility] Comment on above: Fasting Glucose resu lt greater than or equal to 126 mg/dL suggests DIABETES MELLITUS per A.D.A. criteria. Potassium [Moles/Vol] 3.9 mmol/L 3.5-5.[address] [facility] Comment on above: Moderate Hemolysis, Result may be falsely increased. Sodium [Moles/Vol] 139 mmol/L 136-145 [facility] WBC (Bld) [#/Vol] 6.9 10*3/uL 4.4-11.0 [facility] Blood erythrocytes count (nu mber/volume)Ordered By: Evi Guevara on 04-21-2023 RBC (Bld) [#/Vol] 4.21 10*6/uL 4.2-5.4 [facility] Blood hemoglobin measurement (mass/volume)Ordered By: Evi Guevara on 04-21-2023 Hemoglobin (Bld) [Mass/Vol] 13.9 g/dL 12.0-15.0 [facility] Blood platelet mean volumeOr dered By: Evi Guevara on 04-21-2023 Platelet mean volume (Bld) [Entitic vol] 11.3 fL 6.2-12.0 [facility] Determination of erythrocyte mean corpuscular volume (MCV)Ordered By: Evi Guevara on 04-21-2023 MCV (RBC) [Entitic vol] 99.0 fL 81-99 [facility] Hematocrit Auto (Bld) [Volum e fraction]Ordered By: Evi Guevara on 04-21-2023 Hematocrit (Bld) [Volume fraction] 41.7 % 37-47 [facility] Laboratory - Chemistry and C hemistry - challengeOrdered By: Evi Guevara on 04-21-2023 CO2 [Moles/Vol] 25.0 mmol/L 21.0-32.0 [facility] Urea nitrogen/Creatinine [Mass ratio] 19.1 mg/mg 04-23 [facility] Laboratory - Hematology and Cell countsOrdered By: Evi Guevara on 04-21-2023 Erythrocyte distribution width (RBC) [Entitic vol] 49.3 fL 35.1-43.9 [facility] Erythrocyte distribution width (RBC) [Ratio] 13.6 % 11.6-14.6 [facility] MCH (RBC) [Entitic mass] 33.0 pg 27.0-32.0 [facility] MCHC Auto (RBC) [Mass/Vol]Or dered By: Evi Guevara on 04-21-2023 MCHC (RBC) [Mass/Vol] 33.3 g/dL [address] [facility] No Panel InformationOrdered By: Evi Guevara on 04-21-2023 Estimated GFR (MDRD) Amer 48 mL/min >60 [facility] Comment on above: GFR Calc Estimated GFR (MDRD) Non-Af Amer 40 mL/min >60 [facility] Comment on above: Non- GFR Calc Platelets bldOrdered By: Mark Guevara on 04-21-2023 Platelets (Bld) [#/Vol] 224 10*3/uL 150-450 [facility] Serum or plasma calcium jeffrey urement (mass/volume)Ordered By: Evi Guevara on 04-21-2023 Calcium [Mass/Vol] 9.5 mg/dL 8.5-10.1 [facility] Serum or plasma creatinine m easurement (mass/volume)Ordered By: Evi Geuvara on 04-21-2023 Creatinine [Mass/Vol] 1.36 mg/dL 0.55-1.[address] [facility] Comment on above: The validity of the calculated GFR & GFRAA in patients over 70 years has not been determined. Clinical correlation is essential. Serum or plasma urea nitroge n measurement (mass/volume)Ordered By: Evi Guevara on 04-21-2023 Urea nitrogen [Mass/Vol] 26 mg/dL 01-19 [facility] Thin prep Papanicolaou smear with manual screeningOrdered By: Evi Guevara on 04-21-2023 Thin prep Papanicolaou smear with manual screening 7 5-15 [facility] Basophil percentageOrdered B y: Evi Guevara on 04-12-2023 Chloride [Moles/Vol] 108 mmol/L 98-107 [facility] Glucose [Mass/Vol] 124 mg/dL 74-106 [facility] Comment on above: Fasting Glucose resu lt from 100 to 125 mg/dL suggests IMPAIRED HOMEOSTASIS per A.D.A. criteria. Potassium [Moles/Vol] 3.9 mmol/L 3.5-5.[address] [facility] Sodium [Moles/Vol] 141 mmol/L 136-145 [facility] Laboratory - Chemistry and C hemistry - challengeOrdered By: Evi Guevara on 04-12-2023 CO2 [Moles/Vol] 25.0 mmol/L 21.0-32.0 [facility] Urea nitrogen/Creatinine [Mass ratio] 14.8 mg/mg 10- [facility] No Panel InformationOrdered By: Evi Guevara on 04-12-2023 Estimated GFR (MDRD) Amer 36 mL/min >60 [facility] Comment on above: GFR Calc Estimated GFR (MDRD) Non-Af Amer 30 mL/min >60 [facility] Comment on above: Non- GFR Calc Serum or plasma calcium jeffrey urement (mass/volume)Ordered By: Evi Guevara on 04-12-2023 Calcium [Mass/Vol] 9.4 mg/dL 8.5-10.1 [facility] Serum or plasma creatinine m easurement (mass/volume)Ordered By: Evi Guevara on 04-12-2023 Creatinine [Mass/Vol] 1.76 mg/dL 0.55-1.[address] [facility] Comment on above: The validity of the calculated GFR & GFRAA in patients over 70 years has not been determined. Clinical correlation is essential. Serum or plasma urea nitroge n measurement (mass/volume)Ordered By: Evi Guevara on 04-12-2023 Urea nitrogen [Mass/Vol] 26 mg/dL -18 [facility] Thin prep Papanicolaou smear with manual screeningOrdered By: Evi Guevara on 10-09-2023 Thin prep Papanicolaou smear with manual screening 8 5-15 [facility] Basophil percentageOrdered B y: Evi Guevara on 03-25-2023 Basophil percentage 25-50 SEEN /hpf 0-5 [facility] Cholesterol [Mass/Vol] 106 mg/dL <200 [facility] Comment on above: <200 mg/dL Desirable 200-240 mg/dL Borderline >240 mg/dL High Risk Triglyceride [Mass/Vol] 85 mg/dL <199 [facility] Comment on above: The drugs N-Acetylcy steine and Metamizole may falsely depress this assay.Serum Triglycerides Reference Interval Normal <150 mg/dL Borderline high 150 - 199 mg/dL High 200 - 499 mg/dL Very High > or = 500 mg/dL WBC (Bld) [#/Vol] 6.3 10*3/uL 4.4-11.0 [facility] Bilirubin Test strip Ql (U)O rdered By: Evi Guevara on 03-25-2023 Bilirubin Ql (U) Negative Negative [facility] Blood erythrocytes count (nu mber/volume)Ordered By: Evi Guevara on 03-25-2023 RBC (Bld) [#/Vol] 3.74 10*6/uL 4.2-5.4 [facility] Blood hemoglobin measurement (mass/volume)Ordered By: Evi Guevara on 03-25-2023 Hemoglobin (Bld) [Mass/Vol] 12.8 g/dL 12.0-15.0 [facility] Blood platelet mean volumeOr dered By: Evi Guevara on 03-25-2023 Platelet mean volume (Bld) [Entitic vol] 11.2 fL 6.2-12.0 [facility] Culture, urineOrdered By: Ari Licea on 03-25-2023 Bacteria identified Cx Nom (U) ESBL Escherichia coli [facility] Determination of erythrocyte mean corpuscular volume (MCV)Ordered By: Evi Guevara on 03-25-2023 MCV (RBC) [Entitic vol] 102.4 fL 81-99 [facility] Hematocrit Auto (Bld) [Volum e fraction]Ordered By: Evi Guevara on 03-25-2023 Hematocrit (Bld) [Volume fraction] 38.3 % 37-47 [facility] Ketones Test strip Ql (U)Ord ered By: Evi Guevara on 03-25-2023 Ketones Ql (U) Negative Negative [facility] Laboratory - Hematology and Cell countsOrdered By: Evi Guevara on 03-25-2023 Erythrocyte distribution width (RBC) [Entitic vol] 51.6 fL 35.1-43.9 [facility] Erythrocyte distribution width (RBC) [Ratio] 13.7 % 11.6-14.6 [facility] MCH (RBC) [Entitic mass] 34.2 pg 27.0-32.0 [facility] MCHC Auto (RBC) [Mass/Vol]Or dered By: Evi Guevara on 03-25-2023 MCHC (RBC) [Mass/Vol] 33.4 g/dL 32-[address] [facility] Mucus LM Ql (Urine sed)Order ed By: Evi Guevara on 03-25-2023 Mucus Ql (Urine sed) 0 SEEN /hpf [facility] Nitrite Test strip Ql (U)Ord ered By: Evi Guevara on 03-25-2023 Nitrite Ql (U) Negative Negative [facility] No Panel InformationOrdered By: Evi Guevara on 03-25-2023 Urine Transitional Epithelial Cells 0-5 SEEN /hpf 0-5 [facility] Thyroid Stimulating Hormone (TSH) 2.32 uIU/mL 0.358-3.74 [facility] Vitamin D 25-Hydroxy 71.1 ng/mL [facility] Comment on above: Vitamin D 25(OH) Sta tus Range Deficiency <20 ng/mL (50nmol/L) Insufficiency 20 - 30 ng/mL (50 - 75 nmol/L) Sufficiency 30 - 100 ng/mL (75 - 250 nmol/L) Toxicity >100 ng/mL (>250 nmol/L) Platelets bldOrdered By: Mark Guevara on 03-25-2023 Platelets (Bld) [#/Vol] 211 10*3/uL 150-450 [facility] Protein Test strip Ql (U)Ord ered By: Evi Guevara on 03-25-2023 Protein Ql (U) Negative Negative [facility] Serum or plasma cholesterol in HDL measurement (mass/volume)Ordered By: Evi Guevara on 03-25-2023 Cholesterol in HDL [Mass/Vol] 40 mg/dL >40 [facility] Comment on above: The drugs N-Acetylcy steine and Metamizole may falsely depress this assay. Reference Range HDL <40 mg/dL Low HDL Cholesterol HDL >or= 60 mg/dL High HDL Cholesterol Serum or plasma cholesterol in VLDL measurement (mass/volume)Ordered By: Evi Guevara on 03-25-2023 Cholesterol in VLDL [Mass/Vol] 17 mg/dL 5-40 [facility] Serum or plasma low density lipoprotein (LDL) cholesterol measurement (mass/volume)Ordered By: Evi Guevara on 03-25-2023 Cholesterol in LDL [Mass/Vol] 49 mg/dL 0-130 [facility] Squamous epithelial cells de tection in urine sediment by light microscopyOrdered By: Evi Guevara on 03-25-2023 Epithelial cells.squamous LM Ql (Urine sed) 5-10 SEEN /hpf 5-10 [facility] Urine blood detectionOrdered By: Evi Guevara on 03-25-2023 RBC Ql (U) 10 /ul Negative [facility] RBC Ql (U) 0-5 SEEN /hpf 0-5 [facility] Urine clarityOrdered By: Mark Guevara on 03-25-2023 Clarity (U) Sl. Cloudy Clear [facility] Urine color determinationOrd ered By: Evi Guevara on 03-25-2023 Color (U) Yellow Yellow [facility] Urine glucose detectionOrder ed By: Evi Guevara on 03-25-2023 Glucose Ql (U) Normal mg/dl Normal [facility] Urine leukocyte esterase det ection by dipstickOrdered By: Evi Guevara on 03-25-2023 Leukocyte esterase Test strip Ql (U) 500 /ul Negative [facility] Urine pHOrdered By: Evi gillette on 03-25-2023 pH (U) 6.0 [pH] 5.0 - 8.0 [facility] Urine sediment bacteria coun t by microscopy (number/high power field)Ordered By: Evi Guevara on 03-25-2023 Bacteria LM.HPF (Urine sed) [#/Area] 2 /[HPF] None Seen [facility] Urine specific gravity measu rementOrdered By: Evi Guevara on 03-25-2023 Specific gravity (U) [Rel density] 1.015 1.002-1.030 [facility] Urobilinogen Auto test strip Ql (U)Ordered By: Evi Guevara on 03-25-2023 Urobilinogen Ql (U) 4 mg/dl Normal [facility] Whole blood hemoglobin A1c/t otal hemoglobin ratio (mass fraction)Ordered By: Evi Guevara on 03-25-2023 HbA1c (Bld) [Mass fraction] 5.4 % 3.8-5.6 [facility] Comment on above: Normal < 5.7 % Predi abetic 5.7 - 6.4 % Diabetic >or= 6.5 % Please note range changes. Basophil percentageOrdered B y: Evi Guevara on 03-23-2023 Cholesterol [Mass/Vol] 126 mg/dL <200 [facility] Comment on above: <200 mg/dL Desirable 200-240 mg/dL Borderline >240 mg/dL High Risk Triglyceride [Mass/Vol] 92 mg/dL <199 [facility] Comment on above: The drugs N-Acetylcy steine and Metamizole may falsely depress this assay.Serum Triglycerides Reference Interval Normal <150 mg/dL Borderline high 150 - 199 mg/dL High 200 - 499 mg/dL Very High > or = 500 mg/dL WBC (Bld) [#/Vol] 6.5 10*3/uL 4.4-11.0 [facility] Blood erythrocytes count (nu mber/volume)Ordered By: Evi Guevara on 03-23-2023 RBC (Bld) [#/Vol] 3.94 10*6/uL 4.2-5.4 [facility] Blood hemoglobin measurement (mass/volume)Ordered By: Evi Guevara on 03-23-2023 Hemoglobin (Bld) [Mass/Vol] 13.1 g/dL 12.0-15.0 [facility] Blood platelet mean volumeOr dered By: Evi Guevara on 03-23-2023 Platelet mean volume (Bld) [Entitic vol] 10.8 fL 6.2-12.0 [facility] Determination of erythrocyte mean corpuscular volume (MCV)Ordered By: Evi Guevara on 03-23-2023 MCV (RBC) [Entitic vol] 100.8 fL 81-99 [facility] Hematocrit Auto (Bld) [Volum e fraction]Ordered By: Evi Guevara on 03-23-2023 Hematocrit (Bld) [Volume fraction] 39.7 % 37-47 [facility] Laboratory - Hematology and Cell countsOrdered By: Evi Guevara on 03-23-2023 Erythrocyte distribution width (RBC) [Entitic vol] 49.6 fL 35.1-43.9 [facility] Erythrocyte distribution width (RBC) [Ratio] 13.4 % 11.6-14.6 [facility] MCH (RBC) [Entitic mass] 33.2 pg 27.0-32.0 [facility] MCHC Auto (RBC) [Mass/Vol]Or dered By: Evi Guevara on 03-23-2023 MCHC (RBC) [Mass/Vol] 33.0 g/dL 32-[address] [facility] No Panel InformationOrdered By: Evi Guevara on 03-23-2023 Thyroid Stimulating Hormone (TSH) 2.27 uIU/mL 0.358-3.74 [facility] Vitamin D 25-Hydroxy 71.6 ng/mL [facility] Comment on above: Vitamin D 25(OH) Sta tus Range Deficiency <20 ng/mL (50nmol/L) Insufficiency 20 - 30 ng/mL (50 - 75 nmol/L) Sufficiency 30 - 100 ng/mL (75 - 250 nmol/L) Toxicity >100 ng/mL (>250 nmol/L) Platelets bldOrdered By: Mark Guevara on 03-23-2023 Platelets (Bld) [#/Vol] 231 10*3/uL 150-450 [facility] Serum or plasma cholesterol in HDL measurement (mass/volume)Ordered By: Evi Guevara on 03-23-2023 Cholesterol in HDL [Mass/Vol] 48 mg/dL >40 [facility] Comment on above: The drugs N-Acetylcy steine and Metamizole may falsely depress this assay. Reference Range HDL <40 mg/dL Low HDL Cholesterol HDL >or= 60 mg/dL High HDL Cholesterol Serum or plasma cholesterol in VLDL measurement (mass/volume)Ordered By: Evi Guevara on 03-23-2023 Cholesterol in VLDL [Mass/Vol] 18 mg/dL 5-40 [facility] Serum or plasma low density lipoprotein (LDL) cholesterol measurement (mass/volume)Ordered By: Evi Guevara on 03-23-2023 Cholesterol in LDL [Mass/Vol] 60 mg/dL 0-130 [facility] Whole blood hemoglobin A1c/t otal hemoglobin ratio (mass fraction)Ordered By: Evi Guevara on 03-23-2023 HbA1c (Bld) [Mass fraction] 5.6 % 3.8-5.6 [facility] Comment on above: Normal < 5.7 % Predi abetic 5.7 - 6.4 % Diabetic >or= 6.5 % Please note range changes. Basophil percentageOrdered B y: Evi Guevara on 03-15-2023 Bilirubin [Mass/Vol] 0.50 mg/dL 0.20-1.00 [facility] Comment on above: For patients on eltr ombopag therapy, use of Dimension [place] TBIL is not recommended. Chloride [Moles/Vol] 108 mmol/L 98-107 [facility] Cholesterol [Mass/Vol] 102 mg/dL <200 [facility] Comment on above: <200 mg/dL Desirable 200-240 mg/dL Borderline >240 mg/dL High Risk Glucose [Mass/Vol] 113 mg/dL 74-106 [facility] Comment on above: Fasting Glucose resu lt from 100 to 125 mg/dL suggests IMPAIRED HOMEOSTASIS per A.D.A. criteria. Potassium [Moles/Vol] 4.1 mmol/L 3.5-5.[address] [facility] Protein [Mass/Vol] 6.4 g/dL 6.4-8.2 [facility] Sodium [Moles/Vol] 140 mmol/L 136-145 [facility] Triglyceride [Mass/Vol] 82 mg/dL <199 [facility] Comment on above: The drugs N-Acetylcy steine and Metamizole may falsely depress this assay.Serum Triglycerides Reference Interval Normal <150 mg/dL Borderline high 150 - 199 mg/dL High 200 - 499 mg/dL Very High > or = 500 mg/dL WBC (Bld) [#/Vol] 6.9 10*3/uL 4.4-11.0 [facility] Blood erythrocytes count (nu mber/volume)Ordered By: Evi Guevara on 03-15-2023 RBC (Bld) [#/Vol] 3.94 10*6/uL 4.2-5.4 [facility] Blood hemoglobin measurement (mass/volume)Ordered By: Evi Guevara on 03-15-2023 Hemoglobin (Bld) [Mass/Vol] 13.2 g/dL 12.0-15.0 [facility] Blood platelet mean volumeOr dered By: Evi Guevara on 03-15-2023 Platelet mean volume (Bld) [Entitic vol] 11.1 fL 6.2-12.0 [facility] Determination of erythrocyte mean corpuscular volume (MCV)Ordered By: Evi Guevara on 03-15-2023 MCV (RBC) [Entitic vol] 98.0 fL 81-99 [facility] Hematocrit Auto (Bld) [Volum e fraction]Ordered By: Evi Guevara on 03-15-2023 Hematocrit (Bld) [Volume fraction] 38.6 % 37-47 [facility] Laboratory - Chemistry and C hemistry - challengeOrdered By: Evi Guevara on 03-15-2023 ALP [Catalytic activity/Vol] 104 U/L 45-117 [facility] ALT [Catalytic activity/Vol] 19 U/L 13-56 [facility] CO2 [Moles/Vol] 25.0 mmol/L 21.0-32.0 [facility] Globulin (S) [Mass/Vol] 3.2 g/dL 2.2-4.2 [facility] Urea nitrogen/Creatinine [Mass ratio] 20.0 mg/mg 10-20 [facility] Laboratory - Hematology and Cell countsOrdered By: Evi Guevara on 03-15-2023 Erythrocyte distribution width (RBC) [Entitic vol] 47.0 fL 35.1-43.9 [facility] Erythrocyte distribution width (RBC) [Ratio] 13.2 % 11.6-14.6 [facility] MCH (RBC) [Entitic mass] 33.5 pg 27.0-32.0 [facility] MCHC Auto (RBC) [Mass/Vol]Or dered By: Evi Guevara on 03-15-2023 MCHC (RBC) [Mass/Vol] 34.2 g/dL 32-[address] [facility] No Panel InformationOrdered By: Evi Guevara on 03-15-2023 Estimated GFR (MDRD) Amer 51 mL/min >60 [facility] Comment on above: GFR Calc Estimated GFR (MDRD) Non-Af Amer 42 mL/min >60 [facility] Comment on above: Non- GFR Calc Thyroid Stimulating Hormone (TSH) 2.96 uIU/mL 0.358-3.74 [facility] Vitamin D 25-Hydroxy 76.0 ng/mL [facility] Comment on above: Vitamin D 25(OH) Sta tus Range Deficiency <20 ng/mL (50nmol/L) Insufficiency 20 - 30 ng/mL (50 - 75 nmol/L) Sufficiency 30 - 100 ng/mL (75 - 250 nmol/L) Toxicity >100 ng/mL (>250 nmol/L) Platelets bldOrdered By: Mark Guevara on 03-15-2023 Platelets (Bld) [#/Vol] 205 10*3/uL 150-450 [facility] Serum or plasma albumin jeffrey urement (mass/volume)Ordered By: Evi Guevara on 03-15-2023 Albumin [Mass/Vol] 3.2 g/dL 3.2-5.0 [facility] Serum or plasma albumin/glob ulin mass ratioOrdered By: Evi Guevara on 03-15-2023 Albumin/Globulin [Mass ratio] 1.0 {ratio} 0.9-2.4 [facility] Serum or plasma calcium jeffrey urement (mass/volume)Ordered By: Evi Guevara on 03-15-2023 Calcium [Mass/Vol] 9.3 mg/dL 8.5-10.1 [facility] Serum or plasma cholesterol in HDL measurement (mass/volume)Ordered By: Evi Guevara on 03-15-2023 Cholesterol in HDL [Mass/Vol] 45 mg/dL >40 [facility] Comment on above: The drugs N-Acetylcy steine and Metamizole may falsely depress this assay. Reference Range HDL <40 mg/dL Low HDL Cholesterol HDL >or= 60 mg/dL High HDL Cholesterol Serum or plasma cholesterol in VLDL measurement (mass/volume)Ordered By: Evi Guevara on 03-15-2023 Cholesterol in VLDL [Mass/Vol] 16 mg/dL 5-40 [facility] Serum or plasma creatinine m easurement (mass/volume)Ordered By: Evi Guevara on 03-15-2023 Creatinine [Mass/Vol] 1.30 mg/dL 0.55-1.[address] [facility] Comment on above: The validity of the calculated GFR & GFRAA in patients over 70 years has not been determined. Clinical correlation is essential. Serum or plasma low density lipoprotein (LDL) cholesterol measurement (mass/volume)Ordered By: Evi Guevara on 03-15-2023 Cholesterol in LDL [Mass/Vol] 41 mg/dL 0-130 [facility] Serum or plasma urea nitroge n measurement (mass/volume)Ordered By: Evi Guevara on 03-15-2023 Urea nitrogen [Mass/Vol] 26 mg/dL 7-18 [facility] Thin prep Papanicolaou smear with manual screeningOrdered By: Evi Guevara on 03-15-2023 Thin prep Papanicolaou smear with manual screening 18 U/L 15-37 [facility] Thin prep Papanicolaou smear with manual screening 7 5-15 [facility] Whole blood hemoglobin A1c/t otal hemoglobin ratio (mass fraction)Ordered By: Evi Guevara on 03-15-2023 HbA1c (Bld) [Mass fraction] 5.5 % 3.8-5.6 [facility] Comment on above: Normal < 5.7 % Predi abetic 5.7 - 6.4 % Diabetic >or= 6.5 % Please note range changes. BASIC METABOLIC PANELon Anion gap [Moles/Vol] 11 mmol/L Normal 10 - 20 [facility] Comment on above: Performed By: #### B MP #### [facility] [address] [place] [address] Calcium [Mass/Vol] 9.2 mg/dL Normal 8.6 - 10.3 [facility] Comment on above: Performed By: #### B MP #### [facility] [address] [place] [address] Chloride [Moles/Vol] 106 mmol/L Normal 98 - 107 [facility] Comment on above: Performed By: #### B MP #### [address] [address] Creatinine [Mass/Vol] 1.33 mg/dL High 0.50 - 1.05 [facility] Comment on above: Performed By: #### B MP #### [address] [place] [address] GFR/1.73 sq M.predicted among non-blacks MDRD (S/P/Bld) [Vol rate/Area] 41 mL/min/{1.73_m2} Abnormal >90 [facility] Comment on above: Result Comment: CALC ULATIONS OF ESTIMATED GFR ARE PERFORMED USING THE 2020 CKD-EPI STUDY REFIT EQUATION WITHOUT THE RACE VARIABLE FOR THE IDMS-TRACEABLE CREATININE METHODS. https://jasn.asnjournals.org/content/early//ASN.2020 431833 Performed By: #### B MP #### [address] [place] [address] Glucose [Mass/Vol] 122 mg/dL High 74 - 99 [facility] Comment on above: Performed By: #### B MP #### [address] [place] [address] HCO3 (Bld) [Moles/Vol] 28 mmol/L Normal 21 - 32 [facility] Comment on above: Performed By: #### B MP #### [address] [place] [address] Potassium [Moles/Vol] 4.1 mmol/L Normal 3.5 - 5.3 [facility] Comment on above: Performed By: #### B MP #### [address] [place] [address] Sodium [Moles/Vol] 141 mmol/L Normal 136 - 145 [facility] Comment on above: Performed By: #### B MP #### [address] [place] [address] Urea nitrogen [Mass/Vol] 31 mg/dL High 6 - 23 [facility] Comment on above: Performed By: #### B MP #### [address] [place] [address] APTTon 08-18-2023 APTT Canceled Normal [facility] Comment on above: Order Comment: TEST APTT WAS CANCELLED, 02/19/2023 08:08 Test cancelled per Katy Blum. Result Comment: Note new reference range as of 12/22/2022 at 10:00am. Performed By: #### B MP #### [address] [address] CBCon 02-19-2023 Erythrocyte distribution width (RBC) [Ratio] 13.2 % Normal 11.5 - 14.5 [facility] Comment on above: Performed By: #### C BC #### [address] [address] Hematocrit (Bld) [Volume fraction] 35.2 % Low 36.0 - 46.0 [facility] Comment on above: Performed By: #### C BC #### [address] [address] Hemoglobin (Bld) [Mass/Vol] 12.0 g/dL Normal 12.0 - 16.0 [facility] Comment on above: Performed By: #### C BC #### [address] [address] MCHC (RBC) [Mass/Vol] 34.1 g/dL Normal 32.0 - 36.0 [facility] Comment on above: Performed By: #### C BC #### [address] [address] MCV (RBC) [Entitic vol] 98 fL Normal 80 - 100 [facility] Comment on above: Performed By: #### C BC #### [address] [place] [address] NUCLEATED RBC 0.0 /100 WBC Normal 0.0 - 0.0 [facility] Comment on above: Performed By: #### C BC #### [address] [address] Platelets (Bld) [#/Vol] 221 10*3/uL Normal 150 - 450 [facility] Comment on above: Performed By: #### C BC #### [address] [address] RBC 3.58 x10E12/L Low 4.00 - 5.20 [facility] Comment on above: Performed By: #### C BC #### [address] [address] WBC (Bld) [#/Vol] 6.9 10*3/uL Normal 4.4 - 11.3 [facility] Comment on above: Performed By: #### C BC #### [address] [address] COMPREHENSIVE PANELon 2022 Albumin [Mass/Vol] 3.4 g/dL Normal 3.4 - 5.0 [facility] Comment on above: Performed By: #### B MP #### [address] [address] ALP [Catalytic activity/Vol] 91 U/L Normal 33 - 136 [facility] Comment on above: Performed By: #### B MP #### [address] [address] ALT [Catalytic activity/Vol] 12 U/L Normal 7 - 45 [facility] Comment on above: Result Comment: Adela ents treated with Sulfasalazine may generate falsely decreased results for ALT. Performed By: #### B MP #### [address] [address] Anion gap [Moles/Vol] 12 mmol/L Normal 10 - 20 [facility] Comment on above: Performed By: #### B MP #### [address] [address] AST [Catalytic activity/Vol] 14 U/L Normal 9 - 39 [facility] Comment on above: Performed By: #### B MP #### [address] [address] Bilirubin [Mass/Vol] 0.6 mg/dL Normal 0.0 - 1.2 [facility] Comment on above: Performed By: #### B MP #### [address] [address] Calcium [Mass/Vol] 9.0 mg/dL Normal 8.6 - 10.3 [facility] Comment on above: Performed By: #### B MP #### [facility] [address] [place] [address], [place] [address] Chloride [Moles/Vol] 104 mmol/L Normal 98 - 107 [facility] Comment on above: Performed By: #### B MP #### [address] [place] [address] Creatinine [Mass/Vol] 1.30 mg/dL High 0.50 - 1.05 [facility] Comment on above: Performed By: #### B MP #### [address] [place] [address] GFR/1.73 sq M.predicted among non-blacks MDRD (S/P/Bld) [Vol rate/Area] 42 mL/min/{1.73_m2} Abnormal >90 [facility] Comment on above: Result Comment: CALC ULATIONS OF ESTIMATED GFR ARE PERFORMED USING THE 2020 CKD-EPI STUDY REFIT EQUATION WITHOUT THE RACE VARIABLE FOR THE IDMS-TRACEABLE CREATININE METHODS. https://jasn.asnjournals.org/content/early//ASN.2020 271793 Performed By: #### B MP #### [address] [place] [address] Glucose [Mass/Vol] 123 mg/dL High 74 - 99 [facility] Comment on above: Performed By: #### B MP #### [address] [place] [address] HCO3 (Bld) [Moles/Vol] 27 mmol/L Normal 21 - 32 [facility] Comment on above: Performed By: #### B MP #### [address] [place] [address] Potassium [Moles/Vol] 3.9 mmol/L Normal 3.5 - 5.3 [facility] Comment on above: Performed By: #### B MP #### [address] [place] [address] Protein [Mass/Vol] 5.6 g/dL Low 6.4 - 8.2 [facility] Comment on above: Performed By: #### B MP #### [facility] [address] [facility] [address] Sodium [Moles/Vol] 139 mmol/L Normal 136 - 145 [facility] Comment on above: Performed By: #### B MP #### [facility] [address] [place] [address] Urea nitrogen [Mass/Vol] 34 mg/dL High 6 - 23 [facility] Comment on above: Performed By: #### B MP #### [address] [place] [address] PT/INRon 02-19-2022 PT Coag (PPP) [Time] 11.4 s Normal 9.8 - 12.8 [facility] Comment on above: Result Comment: Note new reference range as of 12/22/2022 at 10:00am. Performed By: #### B MP #### [address] [place] [address] PT, INR 1.0 Normal 0.9 - 1.1 [facility] Comment on above: Performed By: #### B MP #### [address] [place] [address] BASIC METABOLIC PANELon Anion gap [Moles/Vol] 12 mmol/L Normal 10 - 20 [facility] Comment on above: Performed By: #### B MP #### [address] [place] [address] Calcium [Mass/Vol] 9.1 mg/dL Normal 8.6 - 10.3 [facility] Comment on above: Performed By: #### B MP #### [address] [place] [address] Chloride [Moles/Vol] 104 mmol/L Normal 98 - 107 [facility] Comment on above: Performed By: #### B MP #### [address] [place] [address] Creatinine [Mass/Vol] 1.90 mg/dL High 0.50 - 1.05 [facility] Comment on above: Performed By: #### B MP #### [address] [place] [address] GFR/1.73 sq M.predicted among non-blacks MDRD (S/P/Bld) [Vol rate/Area] 27 mL/min/{1.73_m2} Abnormal >90 [facility] Comment on above: Result Comment: CALC ULATIONS OF ESTIMATED GFR ARE PERFORMED USING THE 2020 CKD-EPI STUDY REFIT EQUATION WITHOUT THE RACE VARIABLE FOR THE IDMS-TRACEABLE CREATININE METHODS. https://jasn.asnjournals.org/content/early/ASN.2020 873040 Performed By: #### B MP #### [address] [address] Glucose [Mass/Vol] 112 mg/dL High 74 - 99 [facility] Comment on above: Performed By: #### B MP #### [address] [address] HCO3 (Bld) [Moles/Vol] 25 mmol/L Normal 21 - 32 [facility] Comment on above: Performed By: #### B MP #### [address] [address] Potassium [Moles/Vol] 4.1 mmol/L Normal 3.5 - 5.3 [facility] Comment on above: Performed By: #### B MP #### [address] [place] [address] Sodium [Moles/Vol] 137 mmol/L Normal 136 - 145 [facility] Comment on above: Performed By: #### B MP #### [address] [address] Urea nitrogen [Mass/Vol] 45 mg/dL High 6 - 23 [facility] Comment on above: Performed By: #### B MP #### [address] [place] [address] BASIC METABOLIC PANELon 07-0 Anion gap [Moles/Vol] 12 mmol/L Normal 10 - 20 [facility] Comment on above: Performed By: #### B MP #### [address] [address] Calcium [Mass/Vol] 9.2 mg/dL Normal 8.6 - 10.3 [facility] Comment on above: Performed By: #### B MP #### [address] [place] [address] Chloride [Moles/Vol] 103 mmol/L Normal 98 - 107 [facility] Comment on above: Performed By: #### B MP #### [address] [place] [address] Creatinine [Mass/Vol] 1.37 mg/dL High 0.50 - 1.05 [facility] Comment on above: Performed By: #### B MP #### [address] [place] [address] GFR/1.73 sq M.predicted among non-blacks MDRD (S/P/Bld) [Vol rate/Area] 40 mL/min/{1.73_m2} Abnormal >90 [facility] Comment on above: Result Comment: CALC ULATIONS OF ESTIMATED GFR ARE PERFORMED USING THE 2020 CKD-EPI STUDY REFIT EQUATION WITHOUT THE RACE VARIABLE FOR THE IDMS-TRACEABLE CREATININE METHODS. https://jasn.asnjournals.org/content/early//ASN.2020 687656 Performed By: #### B MP #### [address] [place] [address] Glucose [Mass/Vol] 115 mg/dL High 74 - 99 [facility] Comment on above: Performed By: #### B MP #### [address] [place] [address] HCO3 (Bld) [Moles/Vol] 27 mmol/L Normal 21 - 32 [facility] Comment on above: Performed By: #### B MP #### [address] [place] [address] Potassium [Moles/Vol] 3.9 mmol/L Normal 3.5 - 5.3 [facility] Comment on above: Performed By: #### B MP #### [address] [place] [address] Sodium [Moles/Vol] 138 mmol/L Normal 136 - 145 [facility] Comment on above: Performed By: #### B MP #### [address] [address] Urea nitrogen [Mass/Vol] 22 mg/dL Normal 6 - 23 [facility] Comment on above: Performed By: #### B MP #### [address] [address] BASIC METABOLIC PANELon 06-0 -2022 Anion gap [Moles/Vol] 12 mmol/L Normal 10 - 20 [facility] Comment on above: Performed By: #### B MP #### [address] [address] Calcium [Mass/Vol] 9.4 mg/dL Normal 8.6 - 10.3 [facility] Comment on above: Performed By: #### B MP #### [address] [address] Chloride [Moles/Vol] 107 mmol/L Normal 98 - 107 [facility] Comment on above: Performed By: #### B MP #### [address] [address] Creatinine [Mass/Vol] 1.27 mg/dL High 0.50 - 1.05 [facility] Comment on above: Performed By: #### B MP #### [address] [address] GFR/1.73 sq M.predicted among non-blacks MDRD (S/P/Bld) [Vol rate/Area] 44 mL/min/{1.73_m2} Abnormal >90 [facility] Comment on above: Result Comment: CALC ULATIONS OF ESTIMATED GFR ARE PERFORMED USING THE 2020 CKD-EPI STUDY REFIT EQUATION WITHOUT THE RACE VARIABLE FOR THE IDMS-TRACEABLE CREATININE METHODS. https://jasn.asnjournals.org/content//ASN.2020 738629 Performed By: #### B MP #### [address] [address] Glucose [Mass/Vol] 109 mg/dL High 74 - 99 [facility] Comment on above: Performed By: #### B MP #### [place] [facility] [address] [place] [address] HCO3 (Bld) [Moles/Vol] 26 mmol/L Normal 21 - 32 [facility] Comment on above: Performed By: #### B MP #### [address] [place] [address] Potassium [Moles/Vol] 4.0 mmol/L Normal 3.5 - 5.3 [facility] Comment on above: Performed By: #### B MP #### [address] [place] [address] Sodium [Moles/Vol] 141 mmol/L Normal 136 - 145 [facility] Comment on above: Performed By: #### B MP #### [address] [place] [address] Urea nitrogen [Mass/Vol] 30 mg/dL High 6 - 23 [facility] Comment on above: Performed By: #### B MP #### [address] [place] [address] BASIC METABOLIC PANELon 05-0 Anion gap [Moles/Vol] 11 mmol/L Normal 10 - 20 [facility] Comment on above: Performed By: #### B MP #### [address] [place] [address] Calcium [Mass/Vol] 9.6 mg/dL Normal 8.6 - 10.3 [facility] Comment on above: Performed By: #### B MP #### [address] [place] [address] Chloride [Moles/Vol] 102 mmol/L Normal 98 - 107 [facility] Comment on above: Performed By: #### B MP #### [address] [place] [address] Creatinine [Mass/Vol] 1.73 mg/dL High 0.50 - 1.05 [facility] Comment on above: Performed By: #### B MP #### [address] [place] [address] GFR/1.73 sq M.predicted among non-blacks MDRD (S/P/Bld) [Vol rate/Area] 30 mL/min/{1.73_m2} Abnormal >90 [facility] Comment on above: Result Comment: CALC ULATIONS OF ESTIMATED GFR ARE PERFORMED USING THE 2020 CKD-EPI STUDY REFIT EQUATION WITHOUT THE RACE VARIABLE FOR THE IDMS-TRACEABLE CREATININE METHODS. https://jasn.asnjournals.org/content/early/ASN.2020 939563 Performed By: #### B MP #### [place] [address] [place] [address] Glucose [Mass/Vol] 119 mg/dL High 74 - 99 [facility] Comment on above: Performed By: #### B MP #### [address] [place] [address] HCO3 (Bld) [Moles/Vol] 30 mmol/L Normal 21 - 32 [facility] Comment on above: Performed By: #### B MP #### [address] [place] [address] Potassium [Moles/Vol] 4.1 mmol/L Normal 3.5 - 5.3 [facility] Comment on above: Performed By: #### B MP #### [address] [place] [address] Sodium [Moles/Vol] 139 mmol/L Normal 136 - 145 [facility] Comment on above: Performed By: #### B MP #### [address] [place] [address] Urea nitrogen [Mass/Vol] 47 mg/dL High 6 - 23 [facility] Comment on above: Performed By: #### B MP #### [address] [place] [address] BASIC METABOLIC PANELon 04-0 Anion gap [Moles/Vol] 11 mmol/L Normal 10 - 20 [facility] Comment on above: Performed By: #### B MP #### [address] [place] [address] Calcium [Mass/Vol] 9.4 mg/dL Normal 8.6 - 10.3 [facility] Comment on above: Performed By: #### B MP #### [address] [place] [address] Chloride [Moles/Vol] 105 mmol/L Normal 98 - 107 [facility] Comment on above: Performed By: #### B MP #### [address] [address] Creatinine [Mass/Vol] 1.29 mg/dL High 0.50 - 1.05 [facility] Comment on above: Performed By: #### B MP #### [address] [address] GFR/1.73 sq M.predicted among non-blacks MDRD (S/P/Bld) [Vol rate/Area] 43 mL/min/{1.73_m2} Abnormal >90 [facility] Comment on above: Result Comment: CALC ULATIONS OF ESTIMATED GFR ARE PERFORMED USING THE 2020 CKD-EPI STUDY REFIT EQUATION WITHOUT THE RACE VARIABLE FOR THE IDMS-TRACEABLE CREATININE METHODS. https://jasn.asnjournals.org/content/early//ASN.2020 151546 Performed By: #### B MP #### [address] [address] Glucose [Mass/Vol] 115 mg/dL High 74 - 99 [facility] Comment on above: Performed By: #### B MP #### [address] [address] HCO3 (Bld) [Moles/Vol] 27 mmol/L Normal 21 - 32 [facility] Comment on above: Performed By: #### B MP #### [address] [address] Potassium [Moles/Vol] 4.2 mmol/L Normal 3.5 - 5.3 [facility] Comment on above: Performed By: #### B MP #### [address] [address] Sodium [Moles/Vol] 139 mmol/L Normal 136 - 145 [facility] Comment on above: Performed By: #### B MP #### [address] [address] Urea nitrogen [Mass/Vol] 35 mg/dL High 6 - 23 [facility] Comment on above: Performed By: #### B MP #### [address] [address] THYROXINEon 09-28-2022 T4 [Mass/Vol] 8.4 ug/dL Normal 4.5 - 11.1 [facility] Comment on above: Performed By: #### B MP #### [address] [address] TSHon 09-28-2022 TSH Qn 3.40 m[IU]/L Normal 0.44 - 3.98 [facility] Comment on above: Result Comment: TSH testing is performed using different testing methodology at [facility] than at other [facility]. Direct result comparisons should only be made within the same method. Performed By: #### B MP #### [address] [address] BASIC METABOLIC PANELon 09-03 Anion gap [Moles/Vol] 13 mmol/L Normal 10 - 20 [facility] Comment on above: Performed By: #### B MP #### [address] [address] Calcium [Mass/Vol] 9.4 mg/dL Normal 8.6 - 10.3 [facility] Comment on above: Performed By: #### B MP #### [address] [address] Chloride [Moles/Vol] 103 mmol/L Normal 98 - 107 [facility] Comment on above: Performed By: #### B MP #### [address] [address] Creatinine [Mass/Vol] 1.05 mg/dL Normal 0.50 - 1.05 [facility] Comment on above: Performed By: #### B MP #### [address] [address] GFR/1.73 sq M.predicted among non-blacks MDRD (S/P/Bld) [Vol rate/Area] 55 mL/min/{1.73_m2} Abnormal >90 [facility] Comment on above: Result Comment: CALC ULATIONS OF ESTIMATED GFR ARE PERFORMED USING THE 2020 CKD-EPI STUDY REFIT EQUATION WITHOUT THE RACE VARIABLE FOR THE IDMS-TRACEABLE CREATININE METHODS. https://jasn.asnjournals.org/content//ASN.2020 776830 Performed By: #### B MP #### [address] [address] Glucose [Mass/Vol] 121 mg/dL High 74 - 99 [facility] Comment on above: Performed By: #### B MP #### [address] [place] [address] HCO3 (Bld) [Moles/Vol] 26 mmol/L Normal 21 - 32 [facility] Comment on above: Performed By: #### B MP #### [address] [address] Potassium [Moles/Vol] 3.9 mmol/L Normal 3.5 - 5.3 [facility] Comment on above: Performed By: #### B MP #### [address] [address] Sodium [Moles/Vol] 138 mmol/L Normal 136 - 145 [facility] Comment on above: Performed By: #### B MP #### [address] [address] Urea nitrogen [Mass/Vol] 25 mg/dL High 6 - 23 [facility] Comment on above: Performed By: #### B MP #### [address] [address] CBC AND DIFFERENTIALon 09-21 % AUTOMATED IMMATURE GRAN 0.3 % Normal 0.0 - 0.9 [facility] Comment on above: Result Comment: Briana ture Granulocyte Count (IG) includes promyelocytes, myelocytes and metamyelocytes but does not include bands. Percent differential counts (%) should be interpreted in the context of the absolute cell counts (cells/L). Performed By: #### B MP #### [address] [address] Basophils (Bld) [#/Vol] 0.04 10*3/uL Normal 0.00 - 0.1 0 [facility] Comment on above: Performed By: #### B MP #### [address] [place] [address] Basophils/100 WBC (Bld) 0.6 % Normal 0.0 - 2.0 [facility] Comment on above: Performed By: #### B MP #### [address] [address] Eosinophils (Bld) [#/Vol] 0.38 10*3/uL Normal 0.00 - 0.40 [facility] Comment on above: Performed By: #### B MP #### [address] [address] Eosinophils/100 WBC (Bld) 6.1 % Normal 0.0 - 6.0 [facility] Comment on above: Performed By: #### B MP #### [address] [address] [address] Erythrocyte distribution width (RBC) [Ratio] 13.4 % Normal 11.5 - 14.5 [facility] Comment on above: Performed By: #### B MP #### [address] [place] [address] Hematocrit (Bld) [Volume fraction] 38.7 % Normal 36.0 - 46.0 [facility] Comment on above: Performed By: #### B MP #### [address] [address] Hemoglobin (Bld) [Mass/Vol] 12.6 g/dL Normal 12.0 - 16.0 [facility] Comment on above: Performed By: #### B MP #### [address] [address] Lymphocytes (Bld) [#/Vol] 1.71 10*3/uL Normal 0.80 - 3.00 [facility] Comment on above: Performed By: #### B MP #### [address] [place] [address] Lymphocytes/100 WBC (Bld) 27.6 % Normal 13.0 - 44.0 [facility] Comment on above: Performed By: #### B MP #### [address] [place] [address] MCHC (RBC) [Mass/Vol] 32.6 g/dL Normal 32.0 - 36.0 [facility] Comment on above: Performed By: #### B MP #### [facility] [address] [place] [address], [place] [address] MCV (RBC) [Entitic vol] 98 fL Normal 80 - 100 [facility] Comment on above: Performed By: #### B MP #### [address] [place] [address] Monocytes (Bld) [#/Vol] 0.46 10*3/uL Normal 0.05 - 0.8 0 [facility] Comment on above: Performed By: #### B MP #### [address] [place] [address] Monocytes/100 WBC (Bld) 7.4 % Normal 2.0 - 10.0 [facility] Comment on above: Performed By: #### B MP #### [address] [place] [address] Neutrophils (Bld) [#/Vol] 3.58 10*3/uL Normal 1.60 - 5.50 [facility] Comment on above: Performed By: #### B MP #### [address] [place] [address] Neutrophils/100 WBC (Bld) 58.0 % Normal 40.0 - 80.0 [facility] Comment on above: Performed By: #### B MP #### [address] [place] [address] NUCLEATED RBC 0.0 /100 WBC Normal 0.0 - 0.0 [facility] Comment on above: Performed By: #### B MP #### [address] [place] [address] Platelets (Bld) [#/Vol] 230 10*3/uL Normal 150 - 450 [facility] Comment on above: Performed By: #### B MP #### [facility] [address] [place] [address], [place] [address] RBC 3.93 x10E12/L Low 4.00 - 5.20 [facility] Comment on above: Performed By: #### B MP #### [address] [place] [address] WBC (Bld) [#/Vol] 6.2 10*3/uL Normal 4.4 - 11.3 [facility] Comment on above: Performed By: #### B MP #### [facility] [address] [place] [address] HEMOGLOBIN A1Con 09-21-2022 Glucose [Mass/Vol] 105 mg/dL Normal [facility] Comment on above: Performed By: #### B MP #### [facility] [address] [place] [address] HbA1c (Bld) [Mass fraction] 5.3 % Normal [facility] Comment on above: Result Comment: Diag nosis of Diabetes-Adults Non-Diabetic: < or = 5.6% Increased risk for developing diabetes: 5.7-6.4% Diagnostic of diabetes: > or = 6.5% . Monitoring of Diabetes Age (y) Therapeutic Goal (%) Adults: >18 <7.0 Pediatrics: 13-18 <7.5 7-12 <8.0 0- 6 7.5-8.5 [employer]. Diabetes Care 33(S1), Jul 2009. Performed By: #### B MP #### [facility] [address] [place] [address] LIPID PANEL (CORONARY RISK 2 )on 09-21-2022 Cholesterol [Mass/Vol] 137 mg/dL Normal 0 - 199 [facility] Comment on above: Result Comment: . AGE DESIRABLE BORDERLINE HIGH HIGH 0-19 Y 0 - 169 170 - 199 >/= 200 20-24 Y 0 - 189 190 - 224 >/= 225 >24 Y 0 - 199 200 - 239 >/= 240 All ranges are based on fasting samples. Specific therapeutic targets will vary based on patient-specific cardiac risk. . Pediatric guidelines reference:Pediatrics 2011, 128(S5). Adult guidelines reference: NCEP ATPIII Guidelines, SWATI 2001, 258:2486-97 . Venipuncture immediately after or during the administration of Metamizole may lead to falsely low results. Testing should be performed immediately prior to Metamizole dosing. Performed By: #### L IPID #### [facility] [address] [place] [address] Cholesterol in HDL [Mass/Vol] 40.8 mg/dL Normal [facility] Comment on above: Result Comment: . AGE VERY LOW LOW NORMAL HIGH 0-19 Y < 35 < 40 40-45 ---- 20-24 Y ---- < 40 >45 ---- >24 Y ---- < 40 40-60 >60 . Performed By: #### L IPID #### [address] [address] Cholesterol in LDL [Mass/Vol] 81 mg/dL Normal 0 - 99 [facility] Comment on above: Result Comment: . NEAR BORD AGE DESIRABLE OPTIMAL HIGH HIGH VERY HIGH 0-19 Y 0 - 109 --- 110-129 >/= 130 ---- 20-24 Y 0 - 119 --- 120-159 >/= 160 ---- >24 Y 0 - 99 100-129 130-159 160-189 >/=190 . Performed By: #### L IPID #### [address] [address] Cholesterol in VLDL [Mass/Vol] 15 mg/dL Normal 0 - 40 [facility] Comment on above: Performed By: #### L IPID #### [address] [address] Cholesterol.total/Yesi sterol in HDL [Mass ratio] 3.4 {ratio} Normal [facility] Comment on above: Result Comment: REF VALUES DESIRABLE < 3.4 HIGH RISK > 5.0 Performed By: #### L IPID #### [address] [address] Triglyceride [Mass/Vol] 74 mg/dL Normal 0 - 149 [facility] Comment on above: Result Comment: . AGE DESIRABLE BORDERLINE HIGH HIGH VERY HIGH 0 D-90 D 19 - 174 ---- ---- ---- 91 D- 9 Y 0 - 74 75 - 99 >/= 100 ---- 10-19 Y 0 - 89 90 - 129 >/= 130 ---- 20-24 Y 0 - 114 115 - 149 >/= 150 ---- >24 Y 0 - 149 150 - 199 200- 499 >/= 500 . Venipuncture immediately after or during the administration of Metamizole may lead to falsely low results. Testing should be performed immediately prior to Metamizole dosing. Performed By: #### L IPID #### [address] [address] TSHon 09-21-2022 TSH Qn 4.52 m[IU]/L High 0.44 - 3.98 [facility] Comment on above: Result Comment: TSH testing is performed using different testing methodology at [facility] than at other [facility]. Direct result comparisons should only be made within the same method. Performed By: #### B MP #### [address] [address] VITAMIN D, 25-HYDROXYon 09-03 VITAMIN D, 25-HYDROXY 61 ng/mL Normal [facility] Comment on above: Result Comment: . DEFICIENCY: < 20 NG/ML INSUFFICIENCY: 20-29 NG/ML SUFFICIENCY: 30-100 NG/ML THIS ASSAY ACCURATELY QUANTIFIES THE SUM OF VITAMIN D3, 25-HYDROXY AND VIT D2,25-HYDROXY. Performed By: #### B MP #### [address] [address] BASIC METABOLIC PANELon Anion gap [Moles/Vol] 10 mmol/L Normal 10 - 20 [facility] Comment on above: Performed By: #### B MP #### [address] [address] Calcium [Mass/Vol] 9.3 mg/dL Normal 8.6 - 10.3 [facility] Comment on above: Performed By: #### B MP #### [address] [address] Chloride [Moles/Vol] 105 mmol/L Normal 98 - 107 [facility] Comment on above: Performed By: #### B MP #### [address] [address] Creatinine [Mass/Vol] 1.18 mg/dL High 0.50 - 1.05 [facility] Comment on above: Performed By: #### B MP #### [address] [address] GFR/1.73 sq M.predicted among non-blacks MDRD (S/P/Bld) [Vol rate/Area] 48 mL/min/{1.73_m2} Abnormal >90 [facility] Comment on above: Result Comment: CALC ULATIONS OF ESTIMATED GFR ARE PERFORMED USING THE 2020 CKD-EPI STUDY REFIT EQUATION WITHOUT THE RACE VARIABLE FOR THE IDMS-TRACEABLE CREATININE METHODS. https://jasn.asnjournals.org/content//ASN.2020 997478 Performed By: #### B MP #### [address] [place] [address] Glucose [Mass/Vol] 105 mg/dL High 74 - 99 [facility] Comment on above: Performed By: #### B MP #### [address] [place] [address] HCO3 (Bld) [Moles/Vol] 27 mmol/L Normal 21 - 32 [facility] Comment on above: Performed By: #### B MP #### [address] [place] [address] Potassium [Moles/Vol] 4.1 mmol/L Normal 3.5 - 5.3 [facility] Comment on above: Performed By: #### B MP #### [address] [place] [address] Sodium [Moles/Vol] 138 mmol/L Normal 136 - 145 [facility] Comment on above: Performed By: #### B MP #### [address] [place] [address] Urea nitrogen [Mass/Vol] 25 mg/dL High 6 - 23 [facility] Comment on above: Performed By: #### B MP #### [address] [place] [address] HEMOGLOBIN A1Con 08-27-2022 Glucose [Mass/Vol] 126 mg/dL Normal [facility] Comment on above: Performed By: #### H BA1E #### [address] [place] [address] HbA1c (Bld) [Mass fraction] 6.0 % Abnormal [facility] Comment on above: Result Comment: Diag nosis of Diabetes-Adults Non-Diabetic: < or = 5.6% Increased risk for developing diabetes: 5.7-6.4% Diagnostic of diabetes: > or = 6.5% . Monitoring of Diabetes Age (y) Therapeutic Goal (%) Adults: >18 <7.0 Pediatrics: 13-18 <7.5 7-12 <8.0 0- 6 7.5-8.5 [employer]. Diabetes Care 33(S1), Jul 2009. Performed By: #### H BA1E #### [address] [address] BASIC METABOLIC PANELon 02-0 Anion gap [Moles/Vol] 10 mmol/L Normal 10 - 20 [facility] Comment on above: Performed By: #### B MP #### [address] [address] Calcium [Mass/Vol] 9.5 mg/dL Normal 8.6 - 10.3 [facility] Comment on above: Performed By: #### B MP #### [address] [address] Chloride [Moles/Vol] 102 mmol/L Normal 98 - 107 [facility] Comment on above: Performed By: #### B MP #### [address] [address] Creatinine [Mass/Vol] 1.40 mg/dL High 0.50 - 1.05 [facility] Comment on above: Performed By: #### B MP #### [address] [address] GFR/1.73 sq M.predicted among non-blacks MDRD (S/P/Bld) [Vol rate/Area] 39 mL/min/{1.73_m2} Abnormal >90 [facility] Comment on above: Result Comment: CALC ULATIONS OF ESTIMATED GFR ARE PERFORMED USING THE 2020 CKD-EPI STUDY REFIT EQUATION WITHOUT THE RACE VARIABLE FOR THE IDMS-TRACEABLE CREATININE METHODS. https://jasn.asnjournals.org/content/early/ASN.2020 417667 Performed By: #### B MP #### [facility] [facility] [address] [place] [address] Glucose [Mass/Vol] 128 mg/dL High 74 - 99 [facility] Comment on above: Performed By: #### B MP #### [place] [address] [place] [address] HCO3 (Bld) [Moles/Vol] 29 mmol/L Normal 21 - 32 [facility] Comment on above: Performed By: #### B MP #### [address] [place] [address] Potassium [Moles/Vol] 4.2 mmol/L Normal 3.5 - 5.3 [facility] Comment on above: Performed By: #### B MP #### [address] [place] [address] Sodium [Moles/Vol] 137 mmol/L Normal 136 - 145 [facility] Comment on above: Performed By: #### B MP #### [address] [place] [address] Urea nitrogen [Mass/Vol] 31 mg/dL High 6 - 23 [facility] Comment on above: Performed By: #### B MP #### [address] [place] [address] BASIC METABOLIC PANELon 07-05 Anion gap [Moles/Vol] 10 mmol/L Normal 10 - 20 [facility] Comment on above: Performed By: #### B MP #### [address] [place] [address] Calcium [Mass/Vol] 9.6 mg/dL Normal 8.6 - 10.3 [facility] Comment on above: Performed By: #### B MP #### [address] [place] [address] Chloride [Moles/Vol] 104 mmol/L Normal 98 - 107 [facility] Comment on above: Performed By: #### B MP #### [address] [place] [address] Creatinine [Mass/Vol] 1.30 mg/dL High 0.50 - 1.05 [facility] Comment on above: Performed By: #### B MP #### [address] [place] [address] GFR/1.73 sq M.predicted among non-blacks MDRD (S/P/Bld) [Vol rate/Area] 42 mL/min/{1.73_m2} Abnormal >90 [facility] Comment on above: Result Comment: CALC ULATIONS OF ESTIMATED GFR ARE PERFORMED USING THE 2020 CKD-EPI STUDY REFIT EQUATION WITHOUT THE RACE VARIABLE FOR THE IDMS-TRACEABLE CREATININE METHODS. https://jasn.asnjournals.org/content/early//ASN.2020 778477 Performed By: #### B MP #### [address] [address] Glucose [Mass/Vol] 116 mg/dL High 74 - 99 [facility] Comment on above: Performed By: #### B MP #### [address] [address] HCO3 (Bld) [Moles/Vol] 30 mmol/L Normal 21 - 32 [facility] Comment on above: Performed By: #### B MP #### [address] [address] Potassium [Moles/Vol] 4.2 mmol/L Normal 3.5 - 5.3 [facility] Comment on above: Performed By: #### B MP #### [address] [address] Sodium [Moles/Vol] 140 mmol/L Normal 136 - 145 [facility] Comment on above: Performed By: #### B MP #### [address] [address] Urea nitrogen [Mass/Vol] 31 mg/dL High 6 - 23 [facility] Comment on above: Performed By: #### B MP #### [address] [address] BASIC METABOLIC PANELon Anion gap [Moles/Vol] 13 mmol/L Normal 10 - 20 [facility] Comment on above: Performed By: #### B MP #### [address] [address] Calcium [Mass/Vol] 9.0 mg/dL Normal 8.6 - 10.3 [facility] Comment on above: Performed By: #### B MP #### [address] [address] Chloride [Moles/Vol] 102 mmol/L Normal 98 - 107 [facility] Comment on above: Performed By: #### B MP #### [address] [address] Creatinine [Mass/Vol] 1.67 mg/dL High 0.50 - 1.05 [facility] Comment on above: Performed By: #### B MP #### [address] [address] GFR/1.73 sq M.predicted among non-blacks MDRD (S/P/Bld) [Vol rate/Area] 31 mL/min/{1.73_m2} Abnormal >90 [facility] Comment on above: Result Comment: CALC ULATIONS OF ESTIMATED GFR ARE PERFORMED USING THE 2020 CKD-EPI STUDY REFIT EQUATION WITHOUT THE RACE VARIABLE FOR THE IDMS-TRACEABLE CREATININE METHODS. https://jasn.asnjournals.org/content/early//ASN.2020 544796 Performed By: #### B MP #### [address] [address] Glucose [Mass/Vol] 108 mg/dL High 74 - 99 [facility] Comment on above: Performed By: #### B MP #### [address] [address] HCO3 (Bld) [Moles/Vol] 27 mmol/L Normal 21 - 32 [facility] Comment on above: Performed By: #### B MP #### [address] [address] Potassium [Moles/Vol] 4.5 mmol/L Normal 3.5 - 5.3 [facility] Comment on above: Performed By: #### B MP #### [address] [place] [address] Sodium [Moles/Vol] 137 mmol/L Normal 136 - 145 [facility] Comment on above: Performed By: #### B MP #### [facility] [address] [place] [address] Urea nitrogen [Mass/Vol] 34 mg/dL High 6 - 23 [facility] Comment on above: Performed By: #### B MP #### [facility] [address] [facility] [place] [address] BASIC METABOLIC PANELon 12-0 -2021 Anion gap [Moles/Vol] 11 mmol/L Normal 10 - 20 [facility] Comment on above: Performed By: #### B MP #### [address] [address] Calcium [Mass/Vol] 9.0 mg/dL Normal 8.6 - 10.3 [facility] Comment on above: Performed By: #### B MP #### [address] [address] Chloride [Moles/Vol] 103 mmol/L Normal 98 - 107 [facility] Comment on above: Performed By: #### B MP #### [address] [address] Creatinine [Mass/Vol] 1.36 mg/dL High 0.50 - 1.05 [facility] Comment on above: Performed By: #### B MP #### [address] [address] GFR/1.73 sq M.predicted among non-blacks MDRD (S/P/Bld) [Vol rate/Area] 40 mL/min/{1.73_m2} Abnormal >90 [facility] Comment on above: Result Comment: CALC ULATIONS OF ESTIMATED GFR ARE PERFORMED USING THE 2020 CKD-EPI STUDY REFIT EQUATION WITHOUT THE RACE VARIABLE FOR THE IDMS-TRACEABLE CREATININE METHODS. https://jasn.asnjournals.org/content//ASN.2020 958466 Performed By: #### B MP #### [address] [address] Glucose [Mass/Vol] 89 mg/dL Normal 74 - 99 [facility] Comment on above: Performed By: #### B MP #### [address] [address] HCO3 (Bld) [Moles/Vol] 29 mmol/L Normal 21 - 32 [facility] Comment on above: Performed By: #### B MP #### [facility] [address] [place] [address] Potassium [Moles/Vol] 4.1 mmol/L Normal 3.5 - 5.3 [facility] Comment on above: Performed By: #### B MP #### [address] [address] Sodium [Moles/Vol] 139 mmol/L Normal 136 - 145 [facility] Comment on above: Performed By: #### B MP #### [address] [address] Urea nitrogen [Mass/Vol] 35 mg/dL High - [facility] Comment on above: Performed By: #### B MP #### [address] [address] HEMOGLOBIN A1Con 05-27-2022 Glucose [Mass/Vol] 131 mg/dL Normal [facility] Comment on above: Performed By: #### H BA1E #### [address] [address] HbA1c (Bld) [Mass fraction] 6.2 % Abnormal [facility] Comment on above: Result Comment: Diag nosis of Diabetes-Adults Non-Diabetic: < or = 5.6% Increased risk for developing diabetes: 5.7-6.4% Diagnostic of diabetes: > or = 6.5% . Monitoring of Diabetes Age (y) Therapeutic Goal (%) Adults: >18 <7.0 Pediatrics: 13-18 <7.5 7-12 <8.0 0- 6 7.5-8.5 [employer]. Diabetes Care 33(S1), Jul 2009. Performed By: #### H BA1E #### [facility] [address] [place] [address] Office Visit (Neuro-General) on 10-30-2020 Follow-up visit Provider Impressions headache - due to diet ? r/o brain structural lesion. has a lot of medications, could be due to polypharmacy vs. vasculitis vs. stroke - obtain ESR, MRI brain/ MRA head. TPX trial - if not helping after 3-4 month trial could trial Emgality/ Anti cgrps Patient Discussion/Summary It was a pleasure seeing you today. I want you to get MRI brain / MRA head. start Topamax (Topiramate) 25mg take 1 tab at bedtime x 3 days, then 2 tabs at bedtime x 3 days, then 1 tab in morning/2 tabs at night x 3 days then 2 tabs twice daily and continue this. This is still a medium dose but would like to start slow. If headaches improve on this dose (give this at least 2-3 weeks to assess your headache frequency) then we can raise it. Potential adverse effects are drowsiness, word finding difficulty, tingling in finger tips, risk of kidney stones, weight loss. There are good alternative medication and july-jie-ltynclb strategies to help migraines: You can try riboflavin (vitamin B2) 200 mg twice a day as a natural migraine preventive. This may take several weeks to become fully effective. You can try magnesium 400 mg once daily as a natural migraine preventive. If it causes loose bowel movements, reduce the dose to 200 mg. - Melatonin 3-5 mg take 2 hours before bedtime can be helpful for difficulty with sleeping and for headaches, especially cluster headaches but also migraines. - Avoid triggers that can cause or worsen migraines (food, lack of sleep, stress) - Keep a diary of your headaches to note how often you get them, how long they last and any other helpful information - Avoid taking medication for treatment of headaches (NOT preventative medication) more than 3 days per week. This includes both prescription medication and over the counter medication. - Take your preventative medication as directed. Let me know if you have side effects or problems with the medication. Do not suddenly stop taking the medication. Please make a follow up appointment in 4 months. Any urgent issues or needing to speak to my insurance legal assistant, Maeve, please call [phone], option 6. Our office hours are M-F 8am-4pm, if you have an emergency please call 911 or visit a local urgent care or nearest emergency room. Diagnoses/Problems Assessed Headache (784.0) (R51.9) Orders Headache Start: Topiramate 25 MG Oral Tablet; 1 caps qhs x 3 days then increase to 1 capsule BID x 3 days, then take 1 caps in am 2 caps qhs x 3 days then take 2 caps BID and continue MRA Head without Contrast; Status:Hold For - Scheduling; Requested for:[id number]; Radiologist to Determine Optimal Study : Y Does the patient have a Cochlear Implant, Pacemaker, Defibrilator, Pacing Wire, Brain Aneurysm Clip, Implanted Nerve or Bone Graft Simulator, Implanted Breast Tissue Inter Com Servicer, Glucose Monitor, or Neulasta Device? : No Is the patient or breast feeding? : No What are the patient's signs and symptoms? : headache, new onset MRI Brain without Contrast; Status:Hold For - Scheduling; Requested for:[id number]; Radiologist to Determine Optimal Study : Y Does the patient have a Cochlear Implant, Pacemaker, Defibrilator, Pacing Wire, Brain Aneurysm Clip, Implanted Nerve or Bone Graft Simulator, Implanted Breast Tissue Inter Com Servicer, Glucose Monitor, or Neulasta Device? : No Is the patient or breast feeding? : No What are the patient's signs and symptoms? : headache, new onset Sedimentation Rate, Erythrocyte; Status:Active; Requested for:30Oct2020; Chief Complaint HDEZ evaluation. History of Present Illness 74 y/o RHF here for HDEZ evaluation. referred by Dr. Colon. she thinks she saw another neurologist for this but does not remember who. I do not have records. Onset of headaches: 2017 Frequency of headaches (days per month): 15-20 HDEZ days / month Duration of headaches (average): all day Severity of headaches (out of 10): 8/10 Aura: none Nausea/vomiting: + Photophobia: + Phonophobia: + Location: all over head, mostly frontal, throbbing headache triggers: candy brain imaging: Aug 2018 CT Head Preventative medications: none that she is aware of but on her med list is on duloxetine, gabapentin Abortive medications: Ubrevely sumatriptan PMH: DM, HTN, HLD, pain, HDEZ, obesity. FH: no neurologic disorders. SH: lives in [place] home. nonsmoker. uses walker to walk. Personally reviewed with patient- accurate for below - Past Medical, Surgical and Family and Social histories Review of Systems Constitutional: no fever and no unexplained weight loss. Eyes: no diplopia and no vision loss/change. ENMT: no hearing loss and no dizziness/vertigo. Respiratory: no cough and no dyspnea. Cardiovascular: no chest pain and no palpitations. Gastrointestinal: no dysphagia and no bleeding. Genitourinary: no hematuria and no incontinence. Musculoskeletal: pain. Skin: no rashes. Neurological: headaches and memory lapses or loss, bu (more content not included)... [facility] - Chemistry and C hemistry - challengeon 10-01-2020 Anion gap [Moles/Vol] 11 mmol/L 10 - 20 [facility] [facility] Work Phone: Comment on above: Ordering Provider: T HOMAS MANDAT [address] Calcium [Mass/Vol] 9.4 mg/dL 8.6 - 10.3 [facility] [facility] Work Phone: Comment on above: Ordering Provider: T HOMAS MANDAT [address] Chloride [Moles/Vol] 102 mmol/L 98 - 107 [facility] eu[facility] -[place] [facility] Work Phone: Comment on above: Ordering Provider: T HOMAS MANDAT [address] CO2 [Moles/Vol] 31 mmol/L 21 - 32 [facility] [facility] Work Phone: Comment on above: Ordering Provider: T HOMAS MANDAT [address] Creatinine [Mass/Vol] 1.07 mg/dL above high threshold See Below [facility] [facility] Work Phone: Comment on above: Reference Range: 0.5 0 - 1.05 Ordering Provider: T HOMAS MANDAT [address] Glucose [Mass/Vol] 73 mg/dL below low threshold 74 - 99 [facility] [facility] Work Phone: Comment on above: Ordering Provider: T HOMAS MANDAT [address] Potassium [Moles/Vol] 4.1 mmol/L 3.5 - 5.3 [facility] [facility] Work Phone: Comment on above: Ordering Provider: T HOMAS MANDAT [address] Sodium [Moles/Vol] 140 mmol/L 136 - 145 [facility] [facility] Work Phone: Comment on above: Ordering Provider: T HOMAS MANDAT [address] Urea nitrogen [Mass/Vol] 17 mg/dL 6 - 23 [facility] Work Phone: Comment on above: Ordering Provider: Jason COLON [address] Laboratory - Hematology and Cell countson 10-01-2020 Erythrocyte distribution width (RBC) [Ratio] 12.9 % See Below [facility] 204 Work Phone: Comment on above: Reference Range: 11. 5 - 14.5 Ordering Provider: Jason VALLEAT [address] Hematocrit (Bld) [Volume fraction] 39.1 % See Below [facility] Work Phone: Comment on above: Reference Range: 36. 0 - 46.0 Ordering Provider: Jason VALLEAT 80724 Hemoglobin (Bld) [Mass/Vol] 13.1 g/dL See Below [place] [address] Work Phone: Comment on above: Reference Range: 12. 0 - 16.0 Ordering Provider: Jason VALLEAT 30267 MCHC (RBC) [Mass/Vol] 33.5 g/dL See Below [place] [address] Work Phone: Comment on above: Reference Range: 32. 0 - 36.0 Ordering Provider: Jason COLON 41918 MCV (RBC) [Entitic vol] 99 fL 80 - 100 M [facility] Work Phone: Comment on above: Ordering Provider: Jason VALLEAT 85886 Platelets (Bld) [#/Vol] 227 10*3/uL 150 - 450 [facility] Work Phone: Comment on above: Ordering Provider: Jason VALLEAT 95334 RBC (Bld) [#/Vol] 3.96 {x10E12/L} below low threshold See Below [place] [address] Work Phone: Comment on above: Reference Range: 4.0 0 - 5.20 Ordering Provider: Jason VALLEAT 37740 WBC (Bld) [#/Vol] 6.9 10*3/uL 4.4 - 11.3 [facility] Work Phone: Comment on above: Ordering Provider: T KATHARINE COLON 02615 Lipid Panelon 10-01-2020 Cholesterol [Mass/Vol] 115 mg/dL 0 - 199 [place] [address] Work Phone: Comment on above: . AGE DESIRABLE BORD TAJ HIGH HIGH 0-19 Y 0 - 169 170 - 199 >/= 200 20-24 Y 0 - 189 190 - 224 >/= 225 >24 Y 0 - 199 200 - 239 >/= 240 All ranges are based on fasting samples. Specific therapeutic targets will vary based on patient-specific cardiac risk.. Pediatric guidelines reference:Pediatrics 2011, 128(S5). Adult guidelines reference: NCEP ATPIII Guidelines, SWATI 2001, 258:2486-97. Venipuncture immediately after or during the administration of Metamizole may lead to falsely low results. Testing should be performed immediately prior to Metamizole dosing. Ordering Provider: T KATHARINE COLON 62145 Cholesterol in HDL [Mass/Vol] 37.2 mg/dL Abnormal [place] [address] Work Phone: Comment on above: . AGE VERY LOW LOW N ORMAL HIGH 0-19 Y < 35 < 40 40-45 ---- 20-24 Y ---- < 40 >45 ---- >24 Y ---- < 40 40-60 >60. Ordering Provider: T KATHARINE COLON 35590 Cholesterol in LDL [Mass/Vol] 55 mg/dL 0 - 99 [place] [address] Work Phone: Comment on above: . NEAR BORD AGE JCARLOS RABLE OPTIMAL HIGH HIGH VERY HIGH 0-19 Y 0 - 109 --- 110-129 >/= 130 ---- 20-24 Y 0 - 119 --- 120-159 >/= 160 ---- >24 Y 0 - 99 100-129 130-159 160-189 >/=190. Ordering Provider: T KATHARINE VALLEAT 47654 Cholesterol.total/Yesi sterol in HDL [Mass ratio] 3.1 {ratio} [place] [address] Work Phone: Comment on above: REF VALUESDESIRABLE < 3.4HIGH RISK > 5.0 Ordering Provider: T HOMAS MANDAT 38027 Triglyceride [Mass/Vol] 115 mg/dL 0 - 149 [facility] [facility] Work Phone: Comment on above: . AGE DESIRABLE BORD TAJ HIGH HIGH VERY HIGH 0 D-90 D 19 - 174 ---- ---- ----91 D- 9 Y 0 - 74 75 - 99 >/= 100 ---- 10-19 Y 0 - 89 90 - 129 >/= 130 ---- 20-24 Y 0 - 114 115 - 149 >/= 150 ---- >24 Y 0 - 149 150 - 199 200- 499 >/= 500. Venipuncture immediately after or during the administration of Metamizole may lead to falsely low results. Testing should be performed immediately prior to Metamizole dosing. Ordering Provider: Jason ALCANTAR MANDAT 73763 Lipid Panel 23 mg/dL 0 - 40 [facility] [facility] Work Phone: Comment on above: Ordering Provider: T HOMAS MANDAT 06518 No Panel Informationon 10-01 0.0 {/100_WBC} 0.0 - 0.0 [facility] [facility] Work Phone: Comment on above: Ordering Provider: Jason HOMAS MANDAT 96848 50 {mL/min/1.73m2} Abnormal >60 [facility] [facility] Work Phone: Comment on above: Ordering Provider: Jason HOMAS MANDAT 34208 61 {mL/min/1.73m2} >60 [facility] [facility] Work Phone: Comment on above: CALCULATIONS OF ROSALIE MATED GFR ARE PERFORMED USING THE MDRD STUDY EQUATION FOR THE IDMS-TRACEABLE CREATININE METHODS. CLIN CHEM 2007;53:766-72 Ordering Provider: Jason ALCANTAR MANDAT 98436 TSH - Thyroid Stimulating Ho arnoldo, Serumon 10-01-2020 TSH Qn 1.92 m[IU]/L See Below [facility] [facility] Work Phone: Comment on above: Reference Range: 0.4 4 - 3.98 TSH testing is performed using different testing methodology at [facility] than at other [facility]. Direct result comparisons should only be made within the same method. Ordering Provider: Jason ALCANTAR JEFF 53314 Vitamin D 25-Hydroxyon 10-01 25-hydroxyvitamin D3 [Mass/Vol] 37 ng/mL [facility] 204 Work Phone: Comment on above: .DEFICIENCY: < 20 NG /MLINSUFFICIENCY: 20-29 NG/MLSUFFICIENCY: 30-100 NG/MLTHIS ASSAY ACCURATELY QUANTIFIES THE SUM OFVITAMIN D3, 25-HYDROXY AND VIT D2,25-HYDROXY. Ordering Provider: Jason KATHARINE JEFF 32399 CORONAVIRUS 2019 BY PCRon SARS-CoV-2 (COVID-19) RNA KAYLEE+probe Ql (Unsp spec) Not detected Normal Not Detected [facility] Comment on above: Result Comment: This assay is designed to detect the N, ORF1ab and/or S genes of SARS-CoV-2 via nucleic acid amplification. A Negative (NOT DETECTED) result does not preclude 2019-nCoV infection since the adequacy of sample collection and/or low viral burden may result in presence of viral nucleic acids below the clinical sensitivity of this test method. Negative (NOT DETECTED) result should not be used as the sole basis for treatment or other patient management decisions. Rather negative results should be combined with clinical observations, patient history, and epidemiological information to make patient management decisions. Fact sheet for providers: https://www.fda.gov/media/719848/download Fact sheet for patients: https://www.fda.gov/media/519636/download This test has received FDA Emergency Use Authorization (EUA) and has been verified by [facility] ([facility]). This test is only authorized for the duration of time that circumstances exist to justify the authorization of the emergency use of in vitro diagnostic tests for the detection of SARS-CoV-2 virus and/or diagnosis of COVID-19 infection under section 564(b)(1) of the Act, 21 U.S.C. 360bbb-3(b)(1), unless the authorization is terminated or revoked sooner. [facility] ([facility]) is certified under CLIA-88 as qualified to perform high complexity testing. This tests analytical performance characteristics have been determined by [facility]. Testing is performed at [facility] is located at [address] [place] [address] (CLIA License #[id number], CAP #[id number]). Performed By: #### C OV19 #### [facility] [address] [place] [address] CORONAVIRUS 2019 BY PCRon Lab Specimen Source Nasal, Nasopharyngeal Normal [facility] Comment on above: Performed By: #### C OV19 #### [facility] [address] [place] [address] Urinalysison 03-08-2018 Bilirubin, Urine Negative Normal Negative [facility] Comment on above: Performed By: #### C BC, BMP, PHOS, MG, CK, UR, LDLP, URINC ####[address] [address] Clarity Nom (U) Clear Normal [facility] Comment on above: Performed By: #### C BC, BMP, PHOS, MG, CK, UR, LDLP, URINC ####[address] [address] Color Nom (U) Straw Normal [facility] Comment on above: Performed By: #### C BC, BMP, PHOS, MG, CK, UR, LDLP, URINC ####[address] [address] Epithelial Cells Rare Normal 0-5 [facility] Comment on above: Performed By: #### C BC, BMP, PHOS, MG, CK, UR, LDLP, URINC ####[address] [address] Glucose Ql (U) Negative Normal Negative [facility] Comment on above: Performed By: #### C BC, BMP, PHOS, MG, CK, UR, LDLP, URINC ####[address] [address] Hemoglobin Test strip Ql (U) Negative Normal Negative [facility] Comment on above: Performed By: #### C BC, BMP, PHOS, MG, CK, UR, LDLP, URINC ####[place] [id number] Hyaline Casts, Urine 0-5 Normal [facility] Comment on above: Performed By: #### C BC, BMP, PHOS, MG, CK, UR, LDLP, URINC ####[place] [id number] Ketones Ql (U) Negative Normal Negative [facility] Comment on above: Performed By: #### C BC, BMP, PHOS, MG, CK, UR, LDLP, URINC ####[address] [address] Leukocyte esterase Test strip Ql (U) 1+ Abnormal Negative [facility] Comment on above: Performed By: #### C BC, BMP, PHOS, MG, CK, UR, LDLP, URINC ####[address] [address] Nitrates, Urine Negative Normal Negative [facility] Comment on above: Performed By: #### C BC, BMP, PHOS, MG, CK, UR, LDLP, URINC ####[address] [address] pH Test strip (U) 6.0 [pH] Normal 5.0-9.0 [facility] Comment on above: Performed By: #### C BC, BMP, PHOS, MG, CK, UR, LDLP, URINC ####[address] [address] Protein, Urine Negative Normal Negative [facility] Comment on above: Performed By: #### C BC, BMP, PHOS, MG, CK, UR, LDLP, URINC ####[address] [address] Specific [place], Urine 1.009 Normal 1.000-1.030 [facility] Comment on above: Performed By: #### C BC, BMP, PHOS, MG, CK, UR, LDLP, URINC ####[address] [id number] Urobilinogen, Urine Normal Normal <2.0 [facility] Comment on above: Performed By: #### C BC, BMP, PHOS, MG, CK, UR, LDLP, URINC ####[address] [id number] RBC, Urine 0 /HPF Normal 0-3 [facility] Comment on above: Performed By: #### C BC, BMP, PHOS, MG, CK, UR, LDLP, URINC ####[address] [id number] WBC, Urine 0 /HPF Normal 0-2 [facility] Comment on above: Performed By: #### C BC, BMP, PHOS, MG, CK, UR, LDLP, URINC ####[address] [id number] Urine Cultureon 03-08-2018 Bacteria identified Cx Nom (U) ---- RUN DATE: 03/09/18 [facility] LAB LIVE PAGE 1 RUN TIME: 7115 Specimen Inquiry ---- PATIENT: CARLINE VILLARREAL Nicole ACCT: [id number] LOC: PVNHLAB U: [id number] AGE/SX: 72/F ROOM: RE03/08/[address]: Grant Colon MD : 1945 BED: DIS: STATUS: REG RCR TLOC: ---- SPEC #: [id number] ASHOK: 03/08/18 STATUS: COMP REQ #: [id number] RECD: 03/08/[address]: Grant Colon MD SOURCE: URINE ENTR: 03/08/[address]: [facility] SPDESC: Urine Not ORDERED: Urine Culture ---- Procedure Result ---- > Urine Culture Final COMMENT PATIENT: CARLINE VILLARREAL Nicole LOCATION: [id number] BILL#: [id number] : 45 AGE: SEX: F ORDERED BY: GRANT COLON SOURCE: URINE COLLECTED: 03/08/18 14:30 ANTIBIOTICS AT [facility]SHOK.: RECEIVED : 03/08/18 22:52 SITE: [facility] Sarah Arriola U L T S URINE CULTURE,BACTERIAL FINAL 03/09/18 15:14 MIXED URETHRAL ANDREW. Performing Site: [place] [address] [place] [address] ---- END OF REPORT Normal [facility] Comment on above: Performed By: #### C BC, BMP, PHOS, MG, CK, UR, LDLP, URINC ####[address] [address] Urinalysison 03-06-2018 Bacteria LM.HPF #/area (Urine sed) Occasional Normal 0 [facility] Comment on above: Performed By: #### C BC, BMP, PHOS, MG, CK, UR, LDLP, URINC ####[address] [id number] Bilirubin, Urine Negative Normal Negative [facility] Comment on above: Performed By: #### C BC, BMP, PHOS, MG, CK, UR, LDLP, URINC ####[address] [id number] Clarity Nom (U) Cloudy Normal [facility] Comment on above: Performed By: #### C BC, BMP, PHOS, MG, CK, UR, LDLP, URINC ####[address] [address] Color Nom (U) Yellow Normal [facility] Comment on above: Performed By: #### C BC, BMP, PHOS, MG, CK, UR, LDLP, URINC ####[address] [address] Epithelial Cells Rare Normal 0-5 [facility] Comment on above: Performed By: #### C BC, BMP, PHOS, MG, CK, UR, LDLP, URINC ####[address] [address] Glucose Ql (U) Negative Normal Negative [facility] Comment on above: Performed By: #### C BC, BMP, PHOS, MG, CK, UR, LDLP, URINC ####[address] [address] Hemoglobin Test strip Ql (U) Negative Normal Negative [facility] Comment on above: Performed By: #### C BC, BMP, PHOS, MG, CK, UR, LDLP, URINC ####[address] [address] Hyaline Casts, Urine 5-10 Normal [facility] Comment on above: Performed By: #### C BC, BMP, PHOS, MG, CK, UR, LDLP, URINC ####[address] [address] Ketones Ql (U) Negative Normal Negative [facility] Comment on above: Performed By: #### C BC, BMP, PHOS, MG, CK, UR, LDLP, URINC ####[address] [address] Leukocyte esterase Test strip Ql (U) 3+ Abnormal Negative [facility] Comment on above: Performed By: #### C BC, BMP, PHOS, MG, CK, UR, LDLP, URINC ####[address] [address] Mucus, Urine Rare Normal [facility] Comment on above: Performed By: #### C BC, BMP, PHOS, MG, CK, UR, LDLP, URINC ####[place] [id number] Nitrates, Urine Negative Normal Negative [facility] Comment on above: Performed By: #### C BC, BMP, PHOS, MG, CK, UR, LDLP, URINC ####[place] [id number] pH Test strip (U) 5.0 [pH] Normal 5.0-9.0 [facility] Comment on above: Performed By: #### C BC, BMP, PHOS, MG, CK, UR, LDLP, URINC ####[place] [id number] Protein, Urine Negative Normal Negative [facility] Comment on above: Performed By: #### C BC, BMP, PHOS, MG, CK, UR, LDLP, URINC ####[place] [id number] Renal Epithelial Cells, Urine <1 Normal [facility] Comment on above: Performed By: #### C BC, BMP, PHOS, MG, CK, UR, LDLP, URINC ####[place] [id number] Specific [place], Urine 1.008 Normal 1.000-1.030 [facility] Comment on above: Performed By: #### C BC, BMP, PHOS, MG, CK, UR, LDLP, URINC ####[place] [id number] Urobilinogen, Urine Normal Normal <2.0 [facility] Comment on above: Performed By: #### C BC, BMP, PHOS, MG, CK, UR, LDLP, URINC ####[place] [id number] WBC LM.HPF #/area (Urine sed) 10-20 Abnormal 0-2 [facility] Comment on above: Performed By: #### C BC, BMP, PHOS, MG, CK, UR, LDLP, URINC ####[facility] [place] [address] RBC, Urine 0 /HPF Normal 0-3 [facility] Comment on above: Performed By: #### C BC, BMP, PHOS, MG, CK, UR, LDLP, URINC ####[facility] [place] [address] Urine Cultureon 03-06-2018 Bacteria identified Cx Nom (U) ---- RUN DATE: 03/07/18 [facility] LAB LIVE PAGE 1 RUN TIME: 823 Specimen Inquiry ---- PATIENT: CARLINE VILLARREAL ACCT: [id number] LOC: PVNHLAB U: [id number] AGE/SX: 71/F ROOM: RE10/18/[address]: Grant Colon MD : 1945 BED: DIS: STATUS: REG RCR TLOC: ---- SPEC #: [id number] ASHOK: 03/06/18 STATUS: PATRIC REQ #: [id number] RECD: 03/06/[address]: Grant Colon MD SOURCE: URINE ENTR: 03/06/[address]: [facility] SPDESC: CLEAN CATC ORDERED: Urine Culture ---- Procedure Result ---- > Urine Culture Final COMMENT PATIENT: CARLINE VILLARREAL [place] [facility] [place] [id number] : [birth year] AGE: SEX: F ORDERED BY: GRANT COLON SOURCE: URINE COLLECTED: 03/06/18 08:00 ANTIBIOTICS AT [facility].: RECEIVED : 03/06/18 13:45 SITE: [facility] E S U L T S URINE CULTURE,BACTERIAL FINAL 03/07/18 08:22 MIXED URETHRAL ANDREW. Performing Site: [place] [address] [place] [address] ---- END OF REPORT Normal [facility] Comment on above: Performed By: #### C BC, BMP, PHOS, MG, CK, UR, LDLP, URINC ####[address] [address] Automated blood count $$on 0 10-18-2017 Erythrocyte distribution width Auto Ratio (RBC) 13.8 % Normal 11.5-14.5 [facility] Comment on above: Performed By: #### U RINC ####[address] [address] Hematocrit Auto Volume Fraction (Bld) 42.1 % Normal 35-47 [facility] Comment on above: Performed By: #### U RINC ####[address] [address] Hemoglobin mass conc (Bld) 13.8 g/dL Normal 12.0-16.0 [facility] Comment on above: Performed By: #### U RINC ####[address] [address] MCH Auto Entitic mass (RBC) 32.5 pg Normal 27-34 [facility] Comment on above: Performed By: #### U RINC ####[address] [address] MCH Auto Entitic mass (RBC) 32.8 g/dL Low 33-37 [facility] Comment on above: Performed By: #### U RINC ####[address] [address] MCV Auto Entitic volume (RBC) 99.1 fL Normal 80-100 [facility] Comment on above: Performed By: #### U RINC ####[facility] [place] [address] Platelet mean volume Auto Entitic volume (Bld) 11.0 fL High 7.4-10.4 [facility] Comment on above: Performed By: #### U RINC ####[facility] [place] [address] Platelets Auto #/vol (Bld) 235 10 3/uL Normal 150-400 [facility] Comment on above: Performed By: #### U RINC ####[address] [address] RBC Auto #/vol (Bld) 4.25 10 6/uL Normal 4.2-5.4 [facility] Comment on above: Performed By: #### U RINC ####[address] [address] WBC Auto #/vol (Bld) 5.8 10 3/uL Normal 4.0-11.0 [facility] Comment on above: Performed By: #### U RINC ####[address] [address] Basic Metabolic Panel $$$on 10-18-2017 Anion gap 3 molar conc 14.0 mmol/L Normal [facility] Comment on above: Performed By: #### U RINC ####[address] [address] Calcium mass conc 9.7 mg/dL Normal 8.5-10.1 [facility] Comment on above: Performed By: #### U RINC ####[address] [address] Chloride molar conc 106 mmol/L Normal 98-107 [facility] Comment on above: Performed By: #### U RINC ####[address] [address] CO2 molar conc 29 mmol/L Normal 21-32 [facility] Comment on above: Performed By: #### U RINC ####[address] [address] Creatinine mass conc 0.9 mg/dL Normal 0.6-1.3 [facility] Comment on above: Performed By: #### U RINC ####[address] [address] GFR () >60 Normal [facility] Comment on above: Performed By: #### U RINC ####[address] [address] GFR (Non ) >60 Normal [facility] Comment on above: Result Comment: eGFR Units of measure: mL/min/1.73 m 2 Performed By: #### U RINC ####[address] [address] Glucose mass conc 88 mg/dL Normal 74-106 [facility] Comment on above: Performed By: #### U RINC ####[address] [address] Potassium molar conc 4.0 mmol/L Normal 3.5-5.1 [facility] Comment on above: Performed By: #### U RINC ####[address] [address] Sodium molar conc 145 mmol/L Normal 136-145 [facility] Comment on above: Performed By: #### U RINC ####[address] [address] Urea nitrogen mass conc (Bld) 17 mg/dL Normal 7-18 [facility] Comment on above: Performed By: #### U RINC ####[address] [address] Urinalysison 10-11-2017 Clarity Nom (U) Clear Normal [facility] Comment on above: Performed By: #### U RINC ####[facility] [place] [address] Specific [place], Urine 1.005 Normal 1.000-1.030 [facility] Comment on above: Performed By: #### U RINC ####[facility] [place] [address] Bacteria LM.HPF #/area (Urine sed) Rare Normal 0 [facility] Comment on above: Performed By: #### U RINC ####[address] [address] Bilirubin, Urine Negative Normal Negative [facility] Comment on above: Performed By: #### U RINC ####[address] [address] Color Nom (U) Straw Normal [facility] Comment on above: Performed By: #### U RINC ####[address] [address] Epithelial Cells Rare Normal 0-5 [facility] Comment on above: Performed By: #### U RINC ####[address] [address] Glucose Ql (U) Negative Normal Negative [facility] Comment on above: Performed By: #### U RINC ####[address] [address] Hemoglobin Test strip Ql (U) Negative Normal Negative [facility] Comment on above: Performed By: #### U RINC ####[facility] [place] [address] Ketones Ql (U) Negative Normal Negative [facility] Comment on above: Performed By: #### U RINC ####[address] [address] Leukocyte esterase Test strip Ql (U) Negative Normal Negative [facility] Comment on above: Performed By: #### U RINC ####[address] [address] Nitrates, Urine Negative Normal Negative [facility] Comment on above: Performed By: #### U RINC ####[address] [address] pH Test strip (U) 7 [pH] Normal 5.0-9.0 [facility] Comment on above: Performed By: #### U RINC ####[address] [address] Protein, Urine Negative Normal Negative [facility] Comment on above: Performed By: #### U RINC ####[address] [address] Urobilinogen, Urine Normal Normal <2.0 [facility] Comment on above: Performed By: #### U RINC ####[address] [address] WBC, Urine 0 /HPF Normal 0-2 [facility] Comment on above: Performed By: #### U RINC ####[address] [address] Urine Cultureon 10-11-2017 Bacteria identified Cx Nom (U) ---- RUN DATE: 10/12/17 [facility] LAB LIVE PAGE 1 RUN TIME: 933 Specimen Inquiry ---- PATIENT: CARLINE VILLARREAL ACCT: [id number] LOC: PVNHLAB U: [id number] AGE/SX: 71/F ROOM: RE10/11/[address]: Grant Colon MD : 1945 BED: DIS: STATUS: REG RCR TLOC: ---- SPEC #: [id number] ASHOK: 10/11/17 STATUS: COMP REQ #: [id number] RECD: 10/11/[address]: Grant Colon MD SOURCE: URINE ENTR: 10/11/[address]: [facility] SPDESC: Urine Not ORDERED: Urine Culture ---- Procedure Result ---- > Urine Culture Final COMMENT PATIENT: CARLINE VILLARREAL [place] [facility] [id number] : [birth year] AGE: SEX: F ORDERED BY: GRANT COLON SOURCE: URINE COLLECTED: 10/11/17 08:07 ANTIBIOTICS AT ASHOK.: RECEIVED : 10/11/17 17:12 SITE: [facility] R E S U L T S URINE CULTURE,BACTERIAL FINAL 10/12/17 09:33 NO SIGNIFICANT GROWTH. Performing Site: [facility] - [address] [place] [address] ---- END OF REPORT Normal [facility] Comment on above: Performed By: #### U [facility] ####[facility] [place] [address] Brain or Head without Contra ston 10-10-2017 Brain or Head without Contrast [facility] Patient: CARLINE VILLARREAL [address] [facility] MR#: [id number] [place], [place] [address] : [address] Marcelina Fam MD Dept: Diagnostic Imaging Loc: 1EDA DI REPORT Service Dt:10/10/17 Report#: [id number] Adm Dt: 10/09/17 Dis Dt: Comments: STUDY: CT Brain or Head without Contrast; 10/10/2017 2:03 am INDICATION: head injury. COMPARISON: None ACCESSION NUMBER(S): [id number] ORDERING CLINICIAN: Marcelina Fam TECHNIQUE: Contiguous axial images of the head were obtained without intravenous contrast. FINDINGS: BRAIN PARENCHYMA:There is cerebral atrophy and chronic periventricular white matter small vessel ischemic change. 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 The danielson white matter differentiation is preserved. No mass effect or midline shift. HEMORRHAGE: No evidence of acute intracranial hemorrhage. VENTRICLES AND EXTRA-AXIAL SPACES:The ventricles are within normal limits in size for brain volume. No evidence of abnormal extraaxial fluid collection. EXTRACRANIAL SOFT TISSUES:Posterior occipital scalp hematoma. PARANASAL SINUSES/MASTOIDS:Mucos al thickening of bilateral ethmoid air cells and maxillary sinuses. CALVARIUM:No evidence of depressed calvarial fracture. OTHER FINDINGS:None IMPRESSION: No evidence of acute intracranial hemorrhage or depressed calvarial fracture. Cerebral atrophy and chronic ischemic change. Posterior occipital scalp hematoma. Dictated by: Asa West Electronically Signed by: Asa West 10/10/2017 2:16 AM Normal [facility] Cervical Spine W/O Contrasto n 10-10-2017 Cervical Spine W/O Contrast [facility] Patient: CARLINE VILLARREAL [address] [facility] MR#: [id number] [place], [place] [address] : [address] Marcelina Fam MD Dept: Diagnostic Imaging Loc: 1EDA DI REPORT Service Dt:10/10/17 Report#: [id number] Adm Dt: 10/09/17 Dis Dt: Comments: STUDY: CT Cervical Spine W/O Contrast; 10/10/2017 2:03 am INDICATION: neck pain after falling off couch - 65 lb dog landed on him. COMPARISON: 05/07/2017 ACCESSION NUMBER(S): [id number] ORDERING CLINICIAN: Marcelina Fam TECHNIQUE: Contiguous axial images of the cervical spine were obtained without intravenous contrast. Coronal and sagittal reformatted images were obtained from the axial images. FINDINGS: The examination is limited secondary to patient motion, body habitus, and beam hardening artifact from ear piercings. No evidence of acute fracture of the cervical spine. Straightening of the normal cervical lordosis which may be secondary to patient positioning or muscle spasm. There is multilevel degenerative change of the cervical spine. Multilevel intervertebral disc space narrowing and anterior osseous spurring. There is limited evaluation of the soft tissues of the spinal canal. There is multilevel posterior osseous spurring. Multilevel degenerative facet and uncovertebral arthropathy. No significant prevertebral soft tissue edema. IMPRESSION: No evidence of acute fracture of the cervical spine. Multilevel degenerative change of the cervical spine. Dictated by: Asa West Electronically Signed by: Asa West 10/10/2017 2:18 AM Normal [facility] Chest Portable Xray 1 viewon 10-10-2017 Chest Portable Xray 1 view [facility] Patient: CARLINE VILLARREAL [address] [facility] MR#: [id number] [place], [place] [address] : [address] Marcelina Fam MD Dept: Diagnostic Imaging Loc: 1EDA DI REPORT Service Dt:10/10/17 Report#: [id number] Adm Dt: 10/09/17 Dis Dt: Comments: STUDY: CR Chest Portable Xray 1 view; 10/10/2017 12:45 am INDICATION: Chest Pain. COMPARISON: 08/05/2017 ACCESSION NUMBER(S): [id number] ORDERING CLINICIAN: Marcelina Fam FINDINGS: Patient body habitus partially degrades evaluation. LINES, TUBES, DEVICES: Bilateral shoulder arthroplasties. LUNGS: Bibasilar opacities likely due to atelectasis. No pulmonary consolidation, pleural effusion or pneumothorax. CARDIOMEDIASTINAL SILHOUETTE: Cardiomediastinal silhouette is stable in size and configuration, given differences in technique. ABDOMEN: No remarkable upper abdominal findings. BONES: No acute osseous abnormality. IMPRESSION: No acute cardiopulmonary process. Dictated by: Lena Kaminski Electronically Signed by: Lena Kaminski 10/10/2017 1:25 AM Normal [facility] Complete Blood Count w/diff $$on 10-10-2017 Basophils Auto #/vol (Bld) 0.0 10 /uL Low 0.04-0.9 [facility] Comment on above: Performed By: #### C BC, BMP, PHOS, MG, CK, UR, LDLP, URINC ####[facility] [place] [address] Basophils/100 WBC Auto (Bld) 1 % Normal 0-1 [facility] Comment on above: Performed By: #### C BC, BMP, PHOS, MG, CK, UR, LDLP, URINC ####[place] [address] Eosinophils Auto #/vol (Bld) 0.2 10 3/uL Normal 0.03-0.6 [facility] Comment on above: Performed By: #### C BC, BMP, PHOS, MG, CK, UR, LDLP, URINC ####[place] [id number] Eosinophils/100 WBC Auto (Bld) 4 % High 0-3 [facility] Comment on above: Performed By: #### C BC, BMP, PHOS, MG, CK, UR, LDLP, URINC ####[place] [id number] Erythrocyte distribution width Auto Ratio (RBC) 14.2 % Normal 11.5-14.5 [facility] Comment on above: Performed By: #### C BC, BMP, PHOS, MG, CK, UR, LDLP, URINC ####[place] [id number] Hematocrit Auto Volume Fraction (Bld) 38.9 % Normal 35-47 [facility] Comment on above: Performed By: #### C BC, BMP, PHOS, MG, CK, UR, LDLP, URINC ####[place] [id number] Hemoglobin mass conc (Bld) 12.8 g/dL Normal 12.0-16.0 [facility] Comment on above: Performed By: #### C BC, BMP, PHOS, MG, CK, UR, LDLP, URINC ####[address] [address] Immature Gran# (Auto) 0.0 10 3/uL Normal [facility] Comment on above: Performed By: #### C BC, BMP, PHOS, MG, CK, UR, LDLP, URINC ####[place] [address] Immature granulocytes #/vol (Bld) 0.4 % Normal 0.0-0.9 [facility] Comment on above: Performed By: #### C BC, BMP, PHOS, MG, CK, UR, LDLP, URINC ####[place] [id number] Lymphocytes Auto #/vol (Bld) 1.1 10 3/uL Normal 1-3.5 [facility] Comment on above: Performed By: #### C BC, BMP, PHOS, MG, CK, UR, LDLP, URINC ####[place] [address] Lymphocytes/100 WBC Auto (Bld) 20 % Low 24-44 [facility] Comment on above: Performed By: #### C BC, BMP, PHOS, MG, CK, UR, LDLP, URINC ####[address] [address] MCH Auto Entitic mass (RBC) 32.5 pg Normal 27-34 [facility] Comment on above: Performed By: #### C BC, BMP, PHOS, MG, CK, UR, LDLP, URINC ####[address] [address] MCH Auto Entitic mass (RBC) 32.9 g/dL Low 33-37 [facility] Comment on above: Performed By: #### C BC, BMP, PHOS, MG, CK, UR, LDLP, URINC ####[address] [address] MCV Auto Entitic volume (RBC) 98.7 fL Normal 80-100 [facility] Comment on above: Performed By: #### C BC, BMP, PHOS, MG, CK, UR, LDLP, URINC ####[address] [address] Monocytes Auto #/vol (Bld) 0.6 10 3/uL Normal 0.04-0.9 [facility] Comment on above: Performed By: #### C BC, BMP, PHOS, MG, CK, UR, LDLP, URINC ####[address] [address] Monocytes/100 WBC Auto (Bld) 11 % High 1-8 [facility] Comment on above: Performed By: #### C BC, BMP, PHOS, MG, CK, UR, LDLP, URINC ####[address] [address] Neutrophils Auto #/vol (Bld) 3.5 10 3/uL Normal 1.8-7.0 [facility] Comment on above: Performed By: #### C BC, BMP, PHOS, MG, CK, UR, LDLP, URINC ####[address] [address] Neutrophils/100 WBC Auto (Bld) 64 % Normal 42-76 [facility] Comment on above: Performed By: #### C BC, BMP, PHOS, MG, CK, UR, LDLP, URINC ####[address] [address] Nucleated RBC/100 WBC Ratio (Bld) 0.0 % Normal 0.0-0.0 [facility] Comment on above: Performed By: #### C BC, BMP, PHOS, MG, CK, UR, LDLP, URINC ####[address] [address] Platelet mean volume Auto Entitic volume (Bld) 10.7 fL High 7.4-10.4 [facility] Comment on above: Performed By: #### C BC, BMP, PHOS, MG, CK, UR, LDLP, URINC ####[address] [address] Platelets Auto #/vol (Bld) 217 10 3/uL Normal 150-400 [facility] Comment on above: Performed By: #### C BC, BMP, PHOS, MG, CK, UR, LDLP, URINC ####[address] [address] RBC Auto #/vol (Bld) 3.94 10 6/uL Low 4.2-5.4 [facility] Comment on above: Performed By: #### C BC, BMP, PHOS, MG, CK, UR, LDLP, URINC ####[address] [address] WBC Auto #/vol (Bld) 5.4 10 3/uL Normal 4.0-11.0 [facility] Comment on above: Performed By: #### C BC, BMP, PHOS, MG, CK, UR, LDLP, URINC ####[address] [address] Comprehensive Metabolic Pane mandeep 10-10-2017 Albumin mass conc 3.6 g/dL Normal 3.4-5.0 [facility] Comment on above: Performed By: #### C BC, BMP, PHOS, MG, CK, UR, LDLP, URINC ####[address] [address] ALP enzyme act/vol 137 U/L High 50-136 [facility] Comment on above: Performed By: #### C BC, BMP, PHOS, MG, CK, UR, LDLP, URINC ####[address] [address] ALT enzyme act/vol 21 U/L Normal 12-78 [facility] Comment on above: Performed By: #### C BC, BMP, PHOS, MG, CK, UR, LDLP, URINC ####[address] [address] Anion gap 3 molar conc 13.9 mmol/L Normal P [facility] Comment on above: Performed By: #### C BC, BMP, PHOS, MG, CK, UR, LDLP, URINC ####[address] [address] AST enzyme act/vol 17 U/L Normal 15-37 [facility] Comment on above: Performed By: #### C BC, BMP, PHOS, MG, CK, UR, LDLP, URINC ####[address] [address] Bilirubin Ql (U) 0.4 mg/dL Normal 0.2-1.0 [facility] Comment on above: Performed By: #### C BC, BMP, PHOS, MG, CK, UR, LDLP, URINC ####[address] [address] Calcium mass conc 8.6 mg/dL Normal 8.5-10.1 [facility] Comment on above: Performed By: #### C BC, BMP, PHOS, MG, CK, UR, LDLP, URINC ####[address] [address] Chloride molar conc 104 mmol/L Normal 98-107 [facility] Comment on above: Performed By: #### C BC, BMP, PHOS, MG, CK, UR, LDLP, URINC ####[address] [address] CO2 molar conc 26 mmol/L Normal 21-32 [facility] Comment on above: Performed By: #### C BC, BMP, PHOS, MG, CK, UR, LDLP, URINC ####[address] [address] Creatinine mass conc 0.8 mg/dL Normal 0.6-1.3 [facility] Comment on above: Performed By: #### C BC, BMP, PHOS, MG, CK, UR, LDLP, URINC ####[facility] [place] [address] Estimated Creatinine Clearance 51 mL/min Low 75-115 [facility] Comment on above: Performed By: #### C BC, BMP, PHOS, MG, CK, UR, LDLP, URINC ####[address] [address] GFR () >60 Normal [facility] Comment on above: Performed By: #### C BC, BMP, PHOS, MG, CK, UR, LDLP, URINC ####[address] [address] GFR (Non ) >60 Normal [facility] Comment on above: Result Comment: eGFR Units of measure: mL/min/1.73 m 2 Performed By: #### C BC, BMP, PHOS, MG, CK, UR, LDLP, URINC ####[facility] [place] [address] Glucose mass conc 110 mg/dL High 74-106 [facility] Comment on above: Performed By: #### C BC, BMP, PHOS, MG, CK, UR, LDLP, URINC ####[facility] [place] [address] Potassium molar conc 3.9 mmol/L Normal 3.5-5.1 [facility] Comment on above: Performed By: #### C BC, BMP, PHOS, MG, CK, UR, LDLP, URINC ####[facility] [place] [address] Protein mass conc 6.4 g/dL Normal 6.4-8.2 [facility] Comment on above: Performed By: #### C BC, BMP, PHOS, MG, CK, UR, LDLP, URINC ####[facility] [place] [address] Sodium molar conc 140 mmol/L Normal 136-145 [facility] Comment on above: Performed By: #### C BC, BMP, PHOS, MG, CK, UR, LDLP, URINC ####[address] [address] Urea nitrogen mass conc (Bld) 21 mg/dL High 7-18 [facility] Comment on above: Performed By: #### C BC, BMP, PHOS, MG, CK, UR, LDLP, URINC ####[facility] [place] [address] ED Visit Summaryon ED Visit Summary [facility] Patient: CARLINE VILLARREAL [address] [facility] MR#: [id number] [place], [place] [address] : 1945 [address] : Dept: Emergency Department Loc: 1EDA ER Physician Documentation Service Dt: 10/10/17 Report#: [id number] Adm Dt: 10/09/17 Dis Dt: 10/10/17 Patient Information - Chief Complaint Initial Complaint: FALL Chief Complaint: Fall Additional Complaints: Bilateral Arm and shoulder pain - Nursing Triage Note Nursing Triage Note: Pt. arrives to ED via EMS from [facility] with c/o fall. Pt. was getting up out of chair and felt dizzy and fell. Pt. did hit her head but denies LOC. Pt. has goose egg to back of head. She also now c/o bilateral upper arm and shoulder pain. - Allergies Allergies/Adverse Rxn: Allergies No Known Allergies Allergy (Verified 05/07/17 23:11) - Narrative HPI/ROS/Exam: 10/10/17 00:55 Scribed by Tita Parra HISTORY OF PRESENT ILLNESS: Patient is a 71 year old female with history of CVA, dementia, hypertension, and hyperlipidemia who presents to the ED status post mechanical fall for shoulder and head pain. Patient states she was leaning forward for her walker tonight when she fell forward, striking her head on the floor. Reports bilateral shoulder pain as well, stating that she cannot fully extend her arms at the shoulder joint. There is no reported numbness/tingling to extremities. She denies neck pain, back pain, or any other pain or injury related to this fall. She denies dizziness, lightheadedness, and loss of consciousness. The patient DENIES the following: Dizziness, lightheadedness, loss of consciousness, neck pain, back pain, any other pain or injury. REVIEW OF SYSTEMS: (Bold = Positive) Constitutional: No reported Fevers, Chills, Anorexia, Weight Loss, Malaise Respiratory: No Cough, Hemoptysis, Wheezing, Shortness of Breath Cardiac: No Chest Pain, Dyspnea on Exertion, Orthopnea, Palpitations Gastrointestinal: No Nausea, Vomiting, Diarrhea, Constipation, Abdominal Pain Musculoskeletal: No Swelling, Stiffness, Weakness, Bilateral Shoulder Pain, Decreased ROM of Shoulders Neurological: No Dizziness, Confusion, Seizures, Syncope, Head Pain Genitourinary: No Discharge, Dysuria, Flank Pain, Frequency, Hematuria Eyes: No Blurry Vision, Diplopia, Redness, Vision Loss or changes ENT: No Nasal Congestion, Ear Pain, Mouth Pain, Throat Pain PAST MEDICAL HISTORY: CVA, dementia, hypertension, and hyperlipidemia PAST SURGICAL HISTORY: Bilateral rotator cuff surgeries, bilateral knee replacements, appendectomy, umbilical hernia MEDICATIONS: See medication reconciliation. ALLERGIES: NKDA FAMILY HISTORY: No family history pertinent to current patient complaint. SOCIAL HISTORY: Denies smoking. Denies ETOH. Denies illicit drugs. No recent travel. PHYSICAL EXAM: Vital Signs: Temp Pulse Resp BP Pulse Ox 10/09/17 23:16 36.8 C 70 18 208/96 H 98 GENERAL: Alert oriented/NAD. Well nourished. Well hydrated. GCS=15 HEAD: Normocephalic. Posterior occipital hematoma to head with no ecchymosis/bleeding noted. ENT: No posterior oropharyngeal or tonsillar erythema, exudates, or edema. Patent oropharynx. Uvula midline, non-edematous and non-erythematous. Patent external auditory canals with dull, non-erythematous TM. No hemotympanum. No septal hematoma. NECK: Questionable C-spine TTP --> Placed in C-collar NEUROLOGY: Cranial nerves II-XII grossly intact. MS 5/5 in U/L extremities and equal bilaterally, sensation intact in U/L extremities and equal bilaterally, DTRs 2+ in U/L extremities and equal bilaterally. No focal findings identified. EYES: PERRLA. EOMs intact and painless. Conjunctiva clear with no redness or exudates. Clear cornea anterior chamber. No scleral icterus. CARDIAC: Sinus rhythm. No murmurs/rubs/gallops. No jugular venous distention. No peripheral cyanosis or pallor. PULMONARY: No respiratory distress. No accessory muscles use. CTAB. No rales/rhonchi/wheezing /stridor. ABDOMINAL: Soft and nontender in all quadrants. No peritoneal signs. No rebound tenderness/guarding/ab dominal distention/abdominal masses. No pulsatile mass. SKIN: No lesions, rash, petechiae, or purpura. Well-healed surgical scar over the left shoulder. Well-healed surgical scar over the right knee. No bruising to the bilateral shoulders. EXTREMITIES: No edema. Warm and well perfused. No cyanosis. Equal pulses of the UE and LE. MUSCULOSKELETAL: No limitations in passive motion. No tenderness. No cervical, thoracic, lumbar, or sacral tenderness to palpation. No deformities. No gross dislocations. GENITOURINARY: Exam deferred. PSYCHIATRIC: Appropriate mood and affect. No reported suicidal/homicidal ideation. MEDICAL DECISION MAKING: The patient was seen and evaluated upon arrival in the ED. Her history and clinical presentation are concerning for shoulder fracture vs dislocation vs contusion vs skull fracture vs intracranial bleed. Will obtain EKG, CT head, CT cervical spine, bilateral shoulder x-rays, bilateral humerus x-rays, and the appropriate labs, including troponin. Patient was given Dilaudid for pain. EKG obtained in the ED and interpreted by me indicates normal sinus rhythm, rate of 67 bpm, Q waves in lead III, and no ST elevations or depressions. Troponin is negative. HEART score is 3. Per Radiology impression, chest x-ray shows no acute cardiopulmonary process. CT Head shows no evidence of acute intracranial hemorrhage or depressed calvarial fracture. Cerebral atrophy and chronic ischemic change. Posterior occipital scalp hematoma. CT cervical spine shows no evidence of acute fracture of the cervical spine. Multilevel degenerative change of the cervical spine. Bilateral humerus and shoulder x-rays are negative for acute fracture or dislocation. Laboratory Results - last 24 hr 10/10/17 00:20 WBC 5.4 RBC 3.94 L Hgb 12.8 Hct 38.9 MCV 98.7 MCH 32.5 MCHC 32.9 L RDW 14.2 Plt Count 217 MPV 10.7 H Immature Gran % (Auto) 0.4 Neut % (Auto) 64 Lymph % (Auto) 20 L [place] % (Auto) 11 H Eos % (Auto) 4 H Baso % (Auto) 1 Nucleat RBC Rel Count 0.0 Immature Gran # (Auto) 0.0 Neut # (Auto) 3.5 Lymph # (Auto) 1.1 [place] # (Auto) 0.6 Eos # (Auto) 0.2 Baso # (Auto) 0.0 L Sodium 140 Potassium 3.9 Chloride 104 Carbon Dioxide 26 Anion Gap 13.9 BUN 21 H Creatinine 0.8 Estim Creat Clear Calc 51 L Est GFR ( Amer) >60 Est GFR (Non-Af Amer) >60 Fasting Glucose 110 H Calcium 8.6 Total Bilirubin 0.4 AST 17 ALT 21 Alkaline Phosphatase 137 H Troponin I < 0.015 Total Protein 6.4 Albumin 3.6 While in the ED, pt was given IV Dilaudid/Zofran and pain/blood pressure improved. After CT, x-rays completed, pt informed of results. Pt with FROM of bilateral shoulders. Do not suspect obvious rotator cuff injury at this time. DISPOSITION: She is stable for discharge back to her group home after negative workup here. She was informed of her negative imaging results. Patient advised to follow up with her primary care provider and to return to the ED for new or worsening symptoms. She understands and is amenable to this plan. Pt was discharged with Naproxen. CLINICAL IMPRESSION: 1. Closed head injury 2. Bialteral shoulder contusions CRITICAL CARE TIME: None. 10/10/17 08:02 10/10/17 08:08 10/10/17 08:08 - Social Medical History Smoking Status: Never smoker Alcohol Use: No Drug Use: No Involved in Unsafe/Hurtful Relationship: No Is Patient Being Hurt at Home or Feeling Unsafe: No Neurological Hx: CVA/Stroke, Dementia, Migraine Headache Other Neuro Hx: per sister, is forgetful ENT/Eye Hx: Cataract(s) Cardiac Hx: High Cholesterol, HTN Hx Heart Failure? How Many Times?: No GI Hx: GERD Other GI Hx: UMBILICAL HERNIA, APPENDECTOMY Musculoskeletal Hx: Arthritis, Joint replacement, Knee replacement, left, Knee replacement, right Other Musculoskelatal Hx: BILATERAL ROTATOR CUFF REPLACEMENTS Integumentary Hx: Psoriasis Psych Hx: Anxiety, Depression - Family History Father Family Hx: Unknown Mother Family Hx: Unknown - Vital Signs Vitals: Vital Signs Temp Pulse Resp BP Pulse Ox 10/09/17 23:16 36.8 C 70 18 208/96 H 98 - Labs Lab Results: Lab Results 10/10/17 00:20 WBC 5.4 RBC 3.94 L Hgb 12.8 Hct 38.9 MCV 98.7 MCH 32.5 MCHC 32.9 L RDW 14.2 Plt Count 217 MPV 10.7 H Immature Gran % (Auto) 0.4 Neut % (Auto) 64 Lymph % (Auto) 20 L [place] % (Auto) 11 H Eos % (Auto) 4 H Baso % (Auto) 1 Nucleat RBC Rel Count 0.0 Immature Gran # (Auto) 0.0 Neut # (Auto) 3.5 Lymph # (Auto) 1.1 [place] # (Auto) 0.6 Eos # (Auto) 0.2 Baso # (Auto) 0.0 L - MDM/Admission Progress Note MDM Note: 10/10/17 00:55 See narrative section for medical decision making. - Critical Care Time Total Critical Care Time (min): 0 HEART Score - HEART Score History: Slightly suspicious (0) ECG: Normal (0) Age: >/= 65 years (2) Risk factors: 1 or 2 risk factors (1) Troponin: Normal [facility] Humerus Left - Min 2 Viewson 10-10-2017 Humerus Left - Min 2 Views [facility] Patient: CARLINE VILLARREAL [address] MR#: [id number] [place], [place] [address] : [address] Marcelina Fam MD Dept: Diagnostic Imaging Loc: 1EDA DI REPORT Service Dt:10/10/17 Report#: [id number] Adm Dt: 10/09/17 Dis Dt: Comments: STUDY: CR Humerus Left - Min 2 Views; CR Shoulder Left - Min 2 Views; 10/10/2017 2:30 am INDICATION: fall with pain. COMPARISON: 06/05/2013 humerus radiographs, 09/20/2012 shoulder radiograph. ACCESSION NUMBER(S): [id number]; [id number] ORDERING CLINICIAN: Marcelina Fam FINDINGS: Partial left shoulder arthroplasty with hardware in expected position. No evidence of periprosthetic lucency or loosening. Patient positioning is partially degraded by mobility otherwise alignment is grossly maintained. Degenerative changes noted of the acromioclavicular joint. The humerus appears intact. IMPRESSION: No evidence of fracture or dislocation. Dictated by: Lena Kaminski Electronically Signed by: Lena Kaminski 10/10/2017 2:52 AM Normal [facility] Humerus Right - Min 2 Viewso n 10-10-2017 Humerus Right - Min 2 Views [facility] Patient: CARLINE VILLARREAL [address] [facility] MR#: [id number] [place], [place] [address] : [address] Marcelina Fam MD Dept: Diagnostic Imaging Loc: 1EDA DI REPORT Service Dt:10/10/17 Report#: [id number] Adm Dt: 10/09/17 Dis Dt: Comments: STUDY: CR Humerus Right - Min 2 Views; CR Shoulder Right -Min 2 Views; 10/10/2017 2:30 am INDICATION: fall with pain. COMPARISON: Humerus 06/05/2013, right shoulder 01/30/2011 ACCESSION NUMBER(S): [id number]; [id number] ORDERING CLINICIAN: Marcelina Fam FINDINGS: Status post right shoulder arthroplasty. There is loss of the subacromial interval likely due to chronic rotator cuff tears. Degenerative changes of the glenoid. Alignment is otherwise within normal limits. The humerus appears intact. No evidence of acute fracture or dislocation. IMPRESSION: No evidence of fracture or dislocation. Dictated by: Lena Kaminski Electronically Signed by: Lena Kaminski 10/10/2017 2:56 AM Normal [facility] Shoulder Left - Min 2 Viewso n 10-10-2017 Shoulder Left - Min 2 Views [facility] Patient: CARLINE VILLARREAL MR#: [id number] [place], [place] [address] : [address] Marcelina Fam MD Dept: Diagnostic Imaging Loc: 1EDA DI REPORT Service Dt:10/10/17 Report#: [id number] Adm Dt: 10/09/17 Dis Dt: Comments: STUDY: CR Humerus Left - Min 2 Views; CR Shoulder Left - Min 2 Views; 10/10/2017 2:30 am INDICATION: fall with pain. COMPARISON: 06/05/2013 humerus radiographs, 09/20/2012 shoulder radiograph. ACCESSION NUMBER(S): [id number]; [id number] ORDERING CLINICIAN: Marcelina Fam FINDINGS: Partial left shoulder arthroplasty with hardware in expected position. No evidence of periprosthetic lucency or loosening. Patient positioning is partially degraded by mobility otherwise alignment is grossly maintained. Degenerative changes noted of the acromioclavicular joint. The humerus appears intact. IMPRESSION: No evidence of fracture or dislocation. Dictated by: Lena Kaminski Electronically Signed by: Lena Kaminski 10/10/2017 2:52 AM Normal [facility] Shoulder Right -Min 2 Viewso n 10-10-2017 Shoulder Right -Min 2 Views [facility] Patient: CARLINE VILLARREAL MR#: [id number] [place], [place] [address] : [address] Marcelina Fam MD Dept: Diagnostic Imaging Loc: 1EDA DI REPORT Service Dt:10/10/17 Report#: [id number] Adm Dt: 10/09/17 Dis Dt: Comments: STUDY: CR Humerus Right - Min 2 Views; CR Shoulder Right -Min 2 Views; 10/10/2017 2:30 am INDICATION: fall with pain. COMPARISON: Humerus 06/05/2013, right shoulder 01/30/2011 ACCESSION NUMBER(S): [id number]; [id number] ORDERING CLINICIAN: Marcelina Fam FINDINGS: Status post right shoulder arthroplasty. There is loss of the subacromial interval likely due to chronic rotator cuff tears. Degenerative changes of the glenoid. Alignment is otherwise within normal limits. The humerus appears intact. No evidence of acute fracture or dislocation. IMPRESSION: No evidence of fracture or dislocation. Dictated by: Lena Kaminski Electronically Signed by: Lena Kaminski 10/10/2017 2:56 AM Normal [facility] Troponin Ion 10-10-2017 Troponin I.cardiac mass conc ng/mL Normal 0.00-0.045 [facility] Comment on above: Performed By: #### C BC, BMP, PHOS, MG, CK, UR, LDLP, URINC ####[address] [address] Automated blood count $$on 0 08-21-2017 Erythrocyte distribution width Auto Ratio (RBC) 14.3 % Normal 11.5-14.5 [facility] Comment on above: Performed By: #### C BC, BMP, PHOS, MG, CK, UR, LDLP, URINC ####[address] [address] Hematocrit Auto Volume Fraction (Bld) 38.5 % Normal 35-47 [facility] Comment on above: Performed By: #### C BC, BMP, PHOS, MG, CK, UR, LDLP, URINC ####[address] [address] Hemoglobin mass conc (Bld) 12.7 g/dL Normal 12.0-16.0 [facility] Comment on above: Performed By: #### C BC, BMP, PHOS, MG, CK, UR, LDLP, URINC ####[address] [address] MCH Auto Entitic mass (RBC) 31.8 pg Normal 27-34 [facility] Comment on above: Performed By: #### C BC, BMP, PHOS, MG, CK, UR, LDLP, URINC ####[address] [address] MCH Auto Entitic mass (RBC) 33.0 g/dL Normal 33-37 [facility] Comment on above: Performed By: #### C BC, BMP, PHOS, MG, CK, UR, LDLP, URINC ####[facility] [place] [address] MCV Auto Entitic volume (RBC) 96.5 fL Normal 80-100 [facility] Comment on above: Performed By: #### C BC, BMP, PHOS, MG, CK, UR, LDLP, URINC ####[facility] [place] [address] Platelet mean volume Auto Entitic volume (Bld) 10.4 fL Normal 7.4-10.4 [facility] Comment on above: Performed By: #### C BC, BMP, PHOS, MG, CK, UR, LDLP, URINC ####[address] [address] Platelets Auto #/vol (Bld) 161 10 3/uL Normal 150-400 [facility] Comment on above: Performed By: #### C BC, BMP, PHOS, MG, CK, UR, LDLP, URINC ####[address] [address] RBC Auto #/vol (Bld) 3.99 10 6/uL Low 4.2-5.4 [facility] Comment on above: Performed By: #### C BC, BMP, PHOS, MG, CK, UR, LDLP, URINC ####[facility] [place] [address] WBC Auto #/vol (Bld) 3.5 10 3/uL Low 4.0-11.0 [facility] Comment on above: Performed By: #### C BC, BMP, PHOS, MG, CK, UR, LDLP, URINC ####[address] [address] Basic Metabolic Panel $$$on 08-21-2017 Anion gap 3 molar conc 11.9 mmol/L Normal P [facility] Comment on above: Performed By: #### C BC, BMP, PHOS, MG, CK, UR, LDLP, URINC ####[facility] [place] [address] Calcium mass conc 8.4 mg/dL Low 8.5-10.1 [facility] Comment on above: Performed By: #### C BC, BMP, PHOS, MG, CK, UR, LDLP, URINC ####[facility] [place] [address] Chloride molar conc 103 mmol/L Normal 98-107 [facility] Comment on above: Performed By: #### C BC, BMP, PHOS, MG, CK, UR, LDLP, URINC ####[facility] [place] [address] CO2 molar conc 29 mmol/L Normal 21-32 [facility] Comment on above: Performed By: #### C BC, BMP, PHOS, MG, CK, UR, LDLP, URINC ####[facility] [place] [address] Creatinine mass conc 0.7 mg/dL Normal 0.6-1.3 [facility] Comment on above: Performed By: #### C BC, BMP, PHOS, MG, CK, UR, LDLP, URINC ####[facility] [place] [address] GFR () >60 Normal [facility] Comment on above: Performed By: #### C BC, BMP, PHOS, MG, CK, UR, LDLP, URINC ####[facility] [place] [address] GFR (Non ) >60 Normal [facility] Comment on above: Result Comment: eGFR Units of measure: mL/min/1.73 m 2 Performed By: #### C BC, BMP, PHOS, MG, CK, UR, LDLP, URINC ####[address] [address] Glucose mass conc 87 mg/dL Normal 74-106 [facility] Comment on above: Performed By: #### C BC, BMP, PHOS, MG, CK, UR, LDLP, URINC ####[address] [address] Potassium molar conc 4.9 mmol/L Normal 3.5-5.1 [facility] Comment on above: Performed By: #### C BC, BMP, PHOS, MG, CK, UR, LDLP, URINC ####[address] [address] Sodium molar conc 139 mmol/L Normal 136-145 [facility] Comment on above: Performed By: #### C BC, BMP, PHOS, MG, CK, UR, LDLP, URINC ####[address] [address] Urea nitrogen mass conc (Bld) 18 mg/dL Normal 7-18 [facility] Comment on above: Performed By: #### C BC, BMP, PHOS, MG, CK, UR, LDLP, URINC ####[address] [address] Influenza A/B Antigen Rapido n 08-20-2017 Influenza A/B Antigen Rapid ---- RUN DATE: 08/20/17 [facility] LAB LIVE PAGE 1 RUN TIME: 2131 Specimen Inquiry ---- PATIENT: CARLINE VILLARREAL ACCT: [id number] LOC: PVNHLAB U: [id number] AGE/SX: 71/F ROOM: RE08/10/[address]: Grant Colon MD : 1945 BED: DIS: STATUS: REG RCR TLOC: ---- SPEC #: [id number] ASHOK: 08/20/17-UNK STATUS: COMP REQ #: [id number] RECD: 08/20/17-[address]: Grant Colon MD SOURCE: Nasopharyn ENTR: 08/20/[address] [facility] [address]: [facility] SPDESC: ORDERED: Influenza A/B COMMENTS: Results called, Read Back and verified to Chucky BARNARD AT [phone] ON [id number] SP. ---- Procedure Result ---- > Flu A Final Negative for Flu A antigen. Infection due to Flu A cannot be ruled out. Flu A antigen in the sample may be below the detection limit of the test. > Flu B Final Positive for Influenza B virus antigen. This result does not rule out coinfection with other pathogens or identify any specific influenza B virus subtype. ---- END OF REPORT Normal [facility] Comment on above: Performed By: #### C BC, BMP, PHOS, MG, CK, UR, LDLP, URINC ####[place] [address] Urinalysison 08-20-2017 Bilirubin, Urine Negative Normal Negative [facility] Comment on above: Performed By: #### C BC, BMP, PHOS, MG, CK, UR, LDLP, URINC ####[place] [address] Clarity Nom (U) Clear Normal [facility] Comment on above: Performed By: #### C BC, BMP, PHOS, MG, CK, UR, LDLP, URINC ####[place] [id number] Color Nom (U) Yellow Normal [facility] Comment on above: Performed By: #### C BC, BMP, PHOS, MG, CK, UR, LDLP, URINC ####[address] [address] Epithelial Cells Rare Normal 0-5 [facility] Comment on above: Performed By: #### C BC, BMP, PHOS, MG, CK, UR, LDLP, URINC ####[address] [address] Glucose Ql (U) Negative Normal Negative [facility] Comment on above: Performed By: #### C BC, BMP, PHOS, MG, CK, UR, LDLP, URINC ####[address] [address] Hemoglobin Test strip Ql (U) Negative Normal Negative [facility] Comment on above: Performed By: #### C BC, BMP, PHOS, MG, CK, UR, LDLP, URINC ####[address] [address] Ketones Ql (U) Negative Normal Negative [facility] Comment on above: Performed By: #### C BC, BMP, PHOS, MG, CK, UR, LDLP, URINC ####[address] [address] Leukocyte esterase Test strip Ql (U) Negative Normal Negative [facility] Comment on above: Performed By: #### C BC, BMP, PHOS, MG, CK, UR, LDLP, URINC ####[place] [id number] Nitrates, Urine Negative Normal Negative [facility] Comment on above: Performed By: #### C BC, BMP, PHOS, MG, CK, UR, LDLP, URINC ####[place] [id number] pH Test strip (U) 5.0 [pH] Normal 5.0-9.0 [facility] Comment on above: Performed By: #### C BC, BMP, PHOS, MG, CK, UR, LDLP, URINC ####[address] [address] Protein, Urine Negative Normal Negative [facility] Comment on above: Performed By: #### C BC, BMP, PHOS, MG, CK, UR, LDLP, URINC ####[address] [address] RBC LM.HPF #/area (Urine sed) 1-3 Normal 0-3 [facility] Comment on above: Performed By: #### C BC, BMP, PHOS, MG, CK, UR, LDLP, URINC ####[address] [address] Specific [place], Urine 1.015 Normal 1.000-1.030 [facility] Comment on above: Performed By: #### C BC, BMP, PHOS, MG, CK, UR, LDLP, URINC ####[address] [address] Urobilinogen, Urine Normal Normal <2.0 [facility] Comment on above: Performed By: #### C BC, BMP, PHOS, MG, CK, UR, LDLP, URINC ####[address] [address] WBC, Urine 0 /HPF Normal 0-2 [facility] Comment on above: Performed By: #### C BC, BMP, PHOS, MG, CK, UR, LDLP, URINC ####[address] [address] Urine Cultureon 08-20-2017 Bacteria identified Cx Nom (U) ---- RUN DATE: 08/22/17 [facility] LAB LIVE PAGE 1 RUN TIME: 0740 Specimen Inquiry ---- PATIENT: CARLINE VILLARREAL ACCT: [id number] LOC: PVNHLAB U: [id number] AGE/SX: 71/F ROOM: RE08/21/[address]: Grant Colon MD : 1945 BED: DIS: STATUS: REG RCR TLOC: ---- SPEC #: [id number] ASHOK: 08/20/17-UNK STATUS: COMP REQ #: [id number] RECD: 08/20/[address]: Grant Colon MD SOURCE: URINE ENTR: 08/20/[address]: [facility] SPDESC: CLEAN CATC ORDERED: Urine Culture ---- Procedure Result ---- > Urine Culture Final COMMENT PATIENT: CARLINE VILLARREAL [place] [facility] [id number] : [birth year] AGE: SEX: F ORDERED BY: GRANT COLON SOURCE: URINE COLLECTED: 08/20/17 00:00 ANTIBIOTICS AT ASHOK.: RECEIVED : 08/21/17 00:42 SITE: CLEAN CATCH R E S U L T S URINE CULTURE,BACTERIAL FINAL 08/22/17 07:38 NO SIGNIFICANT GROWTH. Performing Site: [facility] - [address] [place] [address] ---- END OF REPORT Normal [facility] Comment on above: Performed By: #### C BC, BMP, PHOS, MG, CK, UR, LDLP, URINC ####[facility] [place] [address] Automated blood count $$on 0 08-10-2017 Erythrocyte distribution width Auto Ratio (RBC) 14.1 % Normal 11.5-14.5 [facility] Comment on above: Performed By: #### C BC, BMP, PHOS, MG, CK, UR, LDLP, URINC ####[facility] [place] [address] Hematocrit Auto Volume Fraction (Bld) 42.2 % Normal 35-47 [facility] Comment on above: Performed By: #### C BC, BMP, PHOS, MG, CK, UR, LDLP, URINC ####[address] [address] Hemoglobin mass conc (Bld) 14.0 g/dL Normal 12.0-16.0 [facility] Comment on above: Performed By: #### C BC, BMP, PHOS, MG, CK, UR, LDLP, URINC ####[address] [address] MCH Auto Entitic mass (RBC) 32.0 pg Normal 27-34 [facility] Comment on above: Performed By: #### C BC, BMP, PHOS, MG, CK, UR, LDLP, URINC ####[address] [address] MCH Auto Entitic mass (RBC) 33.2 g/dL Normal 33-37 [facility] Comment on above: Performed By: #### C BC, BMP, PHOS, MG, CK, UR, LDLP, URINC ####[address] [address] MCV Auto Entitic volume (RBC) 96.3 fL Normal 80-100 [facility] Comment on above: Performed By: #### C BC, BMP, PHOS, MG, CK, UR, LDLP, URINC ####[address] [address] Platelet mean volume Auto Entitic volume (Bld) 11.1 fL High 7.4-10.4 [facility] Comment on above: Performed By: #### C BC, BMP, PHOS, MG, CK, UR, LDLP, URINC ####[address] [address] Platelets Auto #/vol (Bld) 222 10 3/uL Normal 150-400 [facility] Comment on above: Performed By: #### C BC, BMP, PHOS, MG, CK, UR, LDLP, URINC ####[facility] [place] [address] RBC Auto #/vol (Bld) 4.38 10 6/uL Normal 4.2-5.4 [facility] Comment on above: Performed By: #### C BC, BMP, PHOS, MG, CK, UR, LDLP, URINC ####[address] [address] WBC Auto #/vol (Bld) 6.4 10 3/uL Normal 4.0-11.0 [facility] Comment on above: Performed By: #### C BC, BMP, PHOS, MG, CK, UR, LDLP, URINC ####[address] [address] Basic Metabolic Panel $$$on 08-10-2017 Anion gap 3 molar conc 12.3 mmol/L Normal [facility] Comment on above: Performed By: #### C BC, BMP, PHOS, MG, CK, UR, LDLP, URINC ####[address] [address] Calcium mass conc 9.0 mg/dL Normal 8.5-10.1 [facility] Comment on above: Performed By: #### C BC, BMP, PHOS, MG, CK, UR, LDLP, URINC ####[address] [address] Chloride molar conc 104 mmol/L Normal 98-107 [facility] Comment on above: Performed By: #### C BC, BMP, PHOS, MG, CK, UR, LDLP, URINC ####[address] [address] CO2 molar conc 28 mmol/L Normal 21-32 [facility] Comment on above: Performed By: #### C BC, BMP, PHOS, MG, CK, UR, LDLP, URINC ####[address] [address] Creatinine mass conc 0.8 mg/dL Normal 0.6-1.3 [facility] Comment on above: Performed By: #### C BC, BMP, PHOS, MG, CK, UR, LDLP, URINC ####[address] [address] GFR () >60 Normal [facility] Comment on above: Performed By: #### C BC, BMP, PHOS, MG, CK, UR, LDLP, URINC ####[address] [address] GFR (Non ) >60 Normal [facility] Comment on above: Result Comment: eGFR Units of measure: mL/min/1.73 m 2 Performed By: #### C BC, BMP, PHOS, MG, CK, UR, LDLP, URINC ####[address] [address] Glucose mass conc 81 mg/dL Normal 74-106 [facility] Comment on above: Performed By: #### C BC, BMP, PHOS, MG, CK, UR, LDLP, URINC ####[address] [address] Potassium molar conc 4.3 mmol/L Normal 3.5-5.1 [facility] Comment on above: Performed By: #### C BC, BMP, PHOS, MG, CK, UR, LDLP, URINC ####[address] [address] Sodium molar conc 140 mmol/L Normal 136-145 [facility] Comment on above: Performed By: #### C BC, BMP, PHOS, MG, CK, UR, LDLP, URINC ####[address] [address] Urea nitrogen mass conc (Bld) 22 mg/dL High 7-18 [facility] Comment on above: Performed By: #### C BC, BMP, PHOS, MG, CK, UR, LDLP, URINC ####[facility] [place] [address] Brain or Head without Contra ston 08-06-2017 Brain or Head without Contrast [facility] Patient: CARLINE VILLARREAL [address] MR#: [id number] [place], [place] [address] : [address] Grant Colon MD Dept: Diagnostic Imaging Loc: [facility] 346-1 DI REPORT Service Dt:08/06/17 Report#: [id number] Adm Dt: 08/05/17 Dis Dt: Comments: HISTORY OF STROKE STUDY: CT Brain or Head without Contrast; 08/06/2017 2:00 pm INDICATION: cva. COMPARISON: 06/24/2017 ACCESSION NUMBER(S): [id number] ORDERING CLINICIAN: Grant Colon TECHNIQUE: Noncontrast axial CT scan of head was performed. Angled reformats in brain and bone windows were generated. The images were reviewed in bone, brain, blood and soft tissue windows. FINDINGS: The ventricles, cisterns and sulci are prominent, consistent with mild diffuse volume loss. There are areas of nonspecific white matter hypodensity, which are probably age-related or microvascular in nature. This is most pronounced in the right periventricular white matter. Danielson-white differentiation is intact and there is no evidence of acute cortical infarct. No mass, mass effect or midline shift is seen. There is no evidence of hemorrhage. The visualized paranasal sinuses are remarkable for nasal septal deviation to the left and mucosal thickening of multiple left ethmoid air cells and grossly unchanged.. IMPRESSION: No evidence of acute cortical ischemia or intracranial hemorrhage. Stable chronic changes of volume loss and small vessel ischemic disease. Dictated by: Liz Ramos Electronically Signed by: Liz Ramos 08/06/2017 2:08 PM Normal [facility] Discharge Summaryon 08-06-19 Discharge Summary [facility] Patient: CARLINE VILLARREAL MR#: [id number] [place], [place] [address] : 1945 [facility]#: [id number] OrdMarkos Draper: Dept: PDHUMBERTO Loc: 3MED-ONC 346-1 Discharge Summary Service Dt: 08/06/17 Report#: [id number] Adm Dt: 08/05/17 Dis Dt: 08/06/17 Discharge Summary - Narrative Summary Hospital Course: Patient 71 year old female who presented with cc of left sided pain and weakness to trunk, upper and lower extremities. Patient has history of hypertension, high cholesterol, migraine, dementia and recent CVA back in May 2017. X-ray on admission with no significant findings. Hematology and chemistry panel within normal limits. Diminished strength to upper and lower extremity on physical exam. Motor strength is noted to have slightly decreased since her last evaluation following her CVA last admission and is a fall risk. CT head negative. Pt treated with home meds and started on Gabapentin 100mg TID and Cymbalta 30mg PO qd. Patient has been evaluated by in-patient occupational and physical therapy who recommend SNF. Patient is discharged in stable condition to a intermediate facility. Patient is advised to return to hospital if condition worsens or recurrent signs of CVA occurs. - Vital Signs Vitals: Vital Signs (last response) Temperature 36.6 C 08/06/17 13:14 Pulse/Heart Rate 74 08/06/17 13:14 Respiratory Rate 18 08/06/17 13:14 Blood Pressure 162/90 H 08/06/17 13:14 O2 Sat by Pulse Oximetry 99 08/06/17 13:14 - Physical Examination General appearance: alert, anxious, obese Limitations: Positive: physical limitation Head: Positive: normal inspection, atraumatic Eyes: Positive: PERRL, EOMI Pupils: Positive: equal and reactive ENT: Positive: normal exam Neck: Positive: trachea midline, supple, no JVD Respiratory: Positive: normal lung sounds bilaterally. Negative: rales, rhonchi, wheezes Cardiovascular: Positive: regular rate, normal rhythm, normal heart sounds. Negative: systolic murmur, diastolic murmur, rubs, gallop GI/Abdominal: Positive: soft, nontender, nondistended Extremities: Positive: pedal edema, leg edema, decreased strength (LUE 4/5 in shoulder abduction, elbow flexion/extension. LLE 4/5 in DF/PF/EHL.) Neurological: Positive: alert, oriented X3 Integumentary: Positive: warm, dry, intact - Disposition Disposition: TO SNF-OTHER - Other Patient Information Activity: Activity Ordered Up with Assistance Diet: Diet Regular Diet - Consistency Start Wed 2 Breakfast Referrals: Grant Colon MD [Family Provider] - - Discharge Medications Meds: Home Medications Medication Instructions Recorded Cephalexin Monohydrate [Keflex] 500 mg PO Q12 #14 cap 05/06/17 Ferrous Sulfate [Feosol Tablet] 325 mg PO DAILY@0800 30 Days #30 05/06/17 tab Lorazepam [Ativan] 2 mg PO TID PRN #15 tab 05/06/17 Magnesium Hydroxide [Milk of 30 ml PO DAILY PRN 05/07/17 Magnesia] Zolpidem Tartrate [Ambien] 10 mg PO QHS 05/07/17 Atorvastatin Calcium [Lipitor] 40 mg PO DAILY 30 Days #30 tab 08/06/17 Clopidogrel Bisulfate [Plavix] 75 mg PO DAILY 30 Days #30 tab 08/06/17 DULoxetine HCL [Cymbalta Delayed 30 mg PO DAILY #30 cap 08/06/17 Release] Gabapentin [Neurontin] 100 mg PO TID 30 Days #90 cap 08/06/17 Lisinopril 20 mg PO DAILY #30 tablet 08/06/17 oxyCODONE/ACETAM. 5MG/325MG 1 tab PO Q6 PRN 7 Days #28 tab 08/06/17 [Percocet 325 mg-5 mg] Normal [facility] ED Visit Summaryon 8 ED Visit Summary [facility] Patient: CARLINE VILLARREAL [address] MR#: [id number] [place], [place] [address] : 1945 Ord. : Dept: Emergency Department Loc: 1EDA ER Physician Documentation Service Dt: 08/05/17 Report#: [id number] Adm Dt: 08/05/17 Dis Dt: ED-Sign Out Completion - Labs Lab Data: Lab Results 08/05/17 20:00 WBC 7.6 RBC 4.57 Hgb 14.4 Hct 43.2 MCV 94.5 MCH 31.5 MCHC 33.3 RDW 13.9 Plt Count 242 MPV 10.9 H Immature Gran % (Auto) 0.4 Neut % (Auto) 73 Lymph % (Auto) 19 L [place] % (Auto) 6 Eos % (Auto) 1 Baso % (Auto) 1 Nucleat RBC Rel Count 0.0 Immature Gran # (Auto) 0.0 Neut # (Auto) 5.5 Lymph # (Auto) 1.5 [place] # (Auto) 0.4 Eos # (Auto) 0.1 Baso # (Auto) 0.0 L Sodium 141 Potassium 4.6 Chloride 106 Carbon Dioxide 27 Anion Gap 12.6 BUN 16 Creatinine 0.8 Estim Creat Clear Calc No Ht and/or Wt Est GFR ( Amer) >60 Est GFR (Non-Af Amer) >60 Fasting Glucose 112 H Calcium 9.6 Total Bilirubin 0.4 AST 20 ALT 17 Alkaline Phosphatase 113 Troponin I < 0.015 Total Protein 7.4 Albumin 4.3 - Narrative Updates: The patient was signed out to me by Dr. Whaley. I spoke or Dr. Colon; discussed the patient's ambulatory dysfunction secondary to her left-sided weakness from a stroke. He agreed that she should be admitted for observation for possible placement. Jenni Harman MD, MPH Emergency Medicine Attending Physician [facility] ED Physician Disposition - Clinical Impression Clinical Impression: Impaired ambulation, Musculoskeletal strain Contusion of Rib Qualifiers: Encounter type: initial encounter Laterality: left Qualified Code(s): S20.212A - Contusion of left front wall of thorax, initial encounter - Discharge Normal [facility] History AND Physicalon 08-06 History AND Physical [facility] Patient: CARLINE VILLARREAL [address] MR#: [id number] [place], [place] [address] : 1945 Ord. : Dept: PDOC Loc: [facility] 346-1 History Physical Service Dt: 08/06/17 Report#: [id number] Adm Dt: 08/05/17 Dis Dt: History and Physical - Admit Order Information Status/Length of Stay: Observation <2 Midnights, Place Pt in Routine Location: Medical Floor - Date of Service Date of Service: 08/06/17 - PCP/Chief Complaint Primary Care Physician: Grant Colon Chief Complaint: Left-sided Pain - Patient Information HPI/ROS/Exam: Ms. Villarreal is a 71 yo female with history of HTN and recent CVA who presents from home with left-sided pain and difficulty ambulating. 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 Over the last 2-3 weeks patient was residing with her son in [place]. During this time, she was having trouble ambulating and caring for herself. Three days ago, the patient states that she ran out of her medications. After running out of her pain medications, she developed worsening left-sided musculoskeletal pain. Her pain is located in her whole left side, including her arm, trunk and leg. Her pain started several months ago after her stroke, but has become more pronounced over the last three days. Denies any recent trauma or aggravating/remitting factors, but states she fell 5 weeks ago in therapy which did not aggravate her pain. Patient admits to associated left-sided weakness and ambulatory dysfunction which has been chronic since onset after her CVA. She denies any change in weakness, new ambulatory difficulties or new focal neurological deficits. ROS was otherwise negative. Cardiac: High Cholesterol, HTN Neurological: CVA/Stroke, Dementia, Migraine Headache Other Neurological Hx: per sister, is forgetful ENT/Eye: Cataract(s) GI: GERD Other GI HX: UMBILICAL HERNIA, APPENDECTOMY , Female: Tubal Ligation Musculoskeletal: Arthritis, Joint replacement, Knee replacement, left, Knee replacement, right Other Musculoskelatal Hx: BILATERAL ROTATOR CUFF REPLACEMENTS Integumentary: Psoriasis - Social History Smoking Status: Never smoker Does Patient Dip or Chew Tobacco: No Alcohol Use: No Use of Substances/Recreationa l Drugs: No - Family Health History Father Family Member Hx: Unknown Mother Family Member Hx: Unknown - Allergies Allergies/Adverse Reactions: Allergies No Known Allergies Allergy (Verified 05/07/17 23:11) - Medications Home Medications: Atorvastatin Calcium [Lipitor] 40 mg PO DAILY 30 Days #30 tab 05/06/17 [Rx Last Taken 08/05/17 09:30] Cephalexin Monohydrate [Keflex] 500 mg PO Q12 #14 cap 05/06/17 [Rx Last Taken 08/05/17 09:30] Clopidogrel Bisulfate [Plavix] 75 mg PO DAILY 30 Days #30 tab 05/06/17 [Rx Last Taken 08/05/17 09:30] Ferrous Sulfate [Feosol Tablet] 325 mg PO DAILY@0800 30 Days #30 tab 05/06/17 [Rx Last Taken 08/05/17 09:30] Lorazepam [Ativan] 2 mg PO TID PRN #15 tab 05/06/17 [Rx Last Taken 08/05/17 09:30] Lisinopril 20 mg PO DAILY 05/07/17 [History Last Taken 08/05/17 09:30] Magnesium Hydroxide [Milk of Magnesia] 30 ml PO DAILY PRN 05/07/17 [History Last Taken Unknown] Zolpidem Tartrate [Ambien] 10 mg PO QHS 05/07/17 [History Last Taken 08/04/17 21:30] oxyCODONE/ACETAM. 5MG/325MG [Percocet 325 mg-5 mg] 1 tab PO Q6 PRN 05/07/17 [History Last Taken Unknown] - Diagnostic Studies Lab Data: Labs (last 24 hrs) 08/05/17 20:00 WBC 7.6 RBC 4.57 Hgb 14.4 Hct 43.2 MCV 94.5 MCH 31.5 MCHC 33.3 RDW 13.9 Plt Count 242 MPV 10.9 H Immature Gran % (Auto) 0.4 Neut % (Auto) 73 Lymph % (Auto) 19 L [place] % (Auto) 6 Eos % (Auto) 1 Baso % (Auto) 1 Nucleat RBC Rel Count 0.0 Immature Gran # (Auto) 0.0 Neut # (Auto) 5.5 Lymph # (Auto) 1.5 [place] # (Auto) 0.4 Eos # (Auto) 0.1 Baso # (Auto) 0.0 L Sodium 141 Potassium 4.6 Chloride 106 Carbon Dioxide 27 Anion Gap 12.6 BUN 16 Creatinine 0.8 Estim Creat Clear Calc No Ht and/or Wt Est GFR ( Amer) >60 Est GFR (Non-Af Amer) >60 Fasting Glucose 112 H Calcium 9.6 Total Bilirubin 0.4 AST 20 ALT 17 Alkaline Phosphatase 113 Troponin I < 0.015 Total Protein 7.4 Albumin 4.3 - Subjective Narrative ROS: Review of Systems completed. - Review of Systems Constitutional: Reports: fatigue Eyes: Reports: no symptoms ENT: Reports: no symptoms Respiratory: Reports: no symptoms reported Cardiovascular: Reports: no symptoms Gastrointestinal: Reports: no symptoms Genitourinary Exam M/F: Reports: no symptoms Musculoskeletal: Reports: arthralgia, myalgia, other (left-sided pain) Integumentary: Reports: no symptoms Neurological: Reports: weakness (left-sided, chronic) Psychiatric: Reports: no symptoms Endocrine: Reports: no symptoms reported Hematological/Lymphati c: Reports: no symptoms Allergic/Immunologic: Reports: no symptoms - Vital Signs Vitals: Vital Signs (last response) Temperature 36.5 C 08/05/17 17:28 Pulse/Heart Rate 87 08/06/17 00:40 Respiratory Rate 16 08/06/17 00:40 Blood Pressure 165/97 H 08/06/17 00:40 O2 Sat by Pulse Oximetry 100 08/06/17 00:40 - Physical Exam Constitutional: Positive: alert, in no apparent distress, anxious HEENT: Positive: head normal inspection, EOMI Neck: Positive: Supple, no JVD, no thyromegaly, no lymphadenopathy Adenopathy: Positive: No Regional Adenopathy Respiratory: Positive: normal lung sounds bilaterally Cardiovascular: Positive: regular rate, normal rhythm, normal heart sounds GI/Abdominal: Positive: soft, nontender, nondistended, no organomegaly palpable, normal bowel sounds : Positive: deferred Extremities: Positive: no edema, no cellulitis, bilateral pulses positive, tenderness (diffuse left-sided to light touch), decreased strength (4/5 whole left side, 5/5 strenght on right), other (limited ROM of left shoulder with abduction and flexion) Neurological: Positive: alert, oriented X3, CN II-XII intact. Negative: motor sensory deficit Integumentary: Positive: warm, dry, intact, normal color, no rash Psychiatric: Positive: normal affect, normal mood - Assessment and Plan (1) Musculoskeletal pain Status: Chronic Current Visit: Yes Plan: 08/06/17 04:16 suspect neuropathic pain from prior CVA vs. rebound pain from abrupt opioid cessation, no evidence of trauma or organic cause will order xray of left elbow in addition to left shoulder already ordered started on gabapentin continue percocet prn PT/OT (2) Impaired ambulation Status: Chronic Current Visit: Yes Plan: 08/06/17 04:17 2/2 prior CVA, no new motor deficits PT/OT ordered (3) CVA (cerebral vascular accident) Status: Resolved Current Visit: No Qualifiers: CVA mechanism: unspecified Qualified Code(s): I63.9 - Cerebral infarction, unspecified Plan: 08/06/17 04:18 prior CVA in may, no new motor deficits on exam continue plavix and statin therapy restarted home lisinopril for BP control (4) Hyperlipidemia Status: Chronic Current Visit: Yes Qualifiers: Hyperlipidemia type: unspecified Qualified Code(s): E78.5 - Hyperlipidemia, unspecified Plan: 08/06/17 04:18 stable, continue atorvastatin (5) Hypertension Status: Chronic Current Visit: No Qualifiers: Hypertension type: essential hypertension Qualified Code(s): I10 - Essential (primary) hypertension Plan: 08/06/17 04:19 stable, continue home dose lisinopril (6) DVT prophylaxis Status: Acute Current Visit: No Plan: 08/06/17 04:19 scds Review and update is required if H P is greater than twenty-four hours. The patient was examined, the H P was reviewed. __ No Changes __ Changes noted below: Date/Time Attending Physician Normal [facility] Progress Noteson 08-06-2017 Protein mass conc [facility] Patient: CARLINE VILLARREAL [address] MR#: [id number] [place], [place] [address] : 1945 Ord. : Dept: PDOC Loc: 3MED-ONC 346-1 Physician Progress Note Service Dt: 08/06/17 Report#: [id number] Adm Dt: 08/05/17 Dis Dt: Note - Patient Note Observation: 08/06/17 13:17 Patient fully evaluated with resident team. Agree with resident note. Patient slightly decreased motor strength since discharge from her [facility]. Will require further rehabilitation Normal [facility] Urinalysison 08-06-2017 Bilirubin, Urine Negative Normal Negative [facility] Comment on above: Performed By: #### C BC, BMP, PHOS, MG, CK, UR, LDLP, URINC ####[address] [address] Clarity Nom (U) Clear Normal [facility] Comment on above: Performed By: #### C BC, BMP, PHOS, MG, CK, UR, LDLP, URINC ####[place] [id number] Color Nom (U) Yellow Normal [facility] Comment on above: Performed By: #### C BC, BMP, PHOS, MG, CK, UR, LDLP, URINC ####[address] [address] Epithelial Cells Rare Normal 0-5 [facility] Comment on above: Performed By: #### C BC, BMP, PHOS, MG, CK, UR, LDLP, URINC ####[place] [id number] Glucose Ql (U) Negative Normal Negative [facility] Comment on above: Performed By: #### C BC, BMP, PHOS, MG, CK, UR, LDLP, URINC ####[address] [address] Hemoglobin Test strip Ql (U) Negative Normal Negative [facility] Comment on above: Performed By: #### C BC, BMP, PHOS, MG, CK, UR, LDLP, URINC ####[address] [address] Hyaline Casts, Urine 0-5 Normal [facility] Comment on above: Performed By: #### C BC, BMP, PHOS, MG, CK, UR, LDLP, URINC ####[address] [address] Ketones Ql (U) Negative Normal Negative [facility] Comment on above: Performed By: #### C BC, BMP, PHOS, MG, CK, UR, LDLP, URINC ####[address] [address] Leukocyte esterase Test strip Ql (U) 3+ Abnormal Negative [facility] Comment on above: Performed By: #### C BC, BMP, PHOS, MG, CK, UR, LDLP, URINC ####[address] [address] Nitrates, Urine Negative Normal Negative [facility] Comment on above: Performed By: #### C BC, BMP, PHOS, MG, CK, UR, LDLP, URINC ####[address] [address] pH Test strip (U) 7.0 [pH] Normal 5.0-9.0 [facility] Comment on above: Performed By: #### C BC, BMP, PHOS, MG, CK, UR, LDLP, URINC ####[address] [address] Protein, Urine Negative Normal Negative [facility] Comment on above: Performed By: #### C BC, BMP, PHOS, MG, CK, UR, LDLP, URINC ####[address] [address] RBC LM.HPF #/area (Urine sed) 1-3 Normal 0-3 [facility] Comment on above: Performed By: #### C BC, BMP, PHOS, MG, CK, UR, LDLP, URINC ####[address] [address] Renal Epithelial Cells, Urine 1 /HPF Normal [facility] Comment on above: Performed By: #### C BC, BMP, PHOS, MG, CK, UR, LDLP, URINC ####[address] [address] Specific [place], Urine 1.008 Normal 1.000-1.030 [facility] Comment on above: Performed By: #### C BC, BMP, PHOS, MG, CK, UR, LDLP, URINC ####[place] [id number] [place], [place] [id number] Urobilinogen, Urine Normal Normal <2.0 [facility] Comment on above: Performed By: #### C BC, BMP, PHOS, MG, CK, UR, LDLP, URINC ####[address] [id number] WBC LM.HPF #/area (Urine sed) 5-10 Abnormal 0-2 [facility] Comment on above: Performed By: #### C BC, BMP, PHOS, MG, CK, UR, LDLP, URINC ####[address] [id number] Urine Cultureon 08-06-2017 Bacteria identified Cx Nom (U) ---- RUN DATE: 08/07/17 [facility] LAB LIVE PAGE 1 RUN TIME: 8548 Specimen Inquiry ---- PATIENT: CARLINE VILLARREAL ACCT: [id number] LOC: 3MED-ONC U: [id number] AGE/SX: 71/F ROOM: [facility] RE08/05/[address]: Grant Colon MD : 1945 BED: 1 DIS: 08/06/17 STATUS: DIS Kendra TLOC: ---- SPEC #: [id number] ASHOK: 08/06/17 STATUS: COMP REQ #: [id number] RECD: 08/06/17-[address]: Grant Colon MD SOURCE: URINE ENTR: 08/06/17-[address] [facility] [address]: NANIC: CLEAN CATC ORDERED: Urine Culture ---- Procedure Result ---- > Urine Culture Final COMMENT PATIENT: CARLINE VILLARREAL [place] [facility] [id number] : [birth year] AGE: SEX: F ORDERED BY: GRANT COLON SOURCE: URINE COLLECTED: 08/06/17 07:55 ANTIBIOTICS AT ASHOK.: RECEIVED : 08/06/17 17:06 SITE: CLEAN CATCH R E S U L T S URINE CULTURE,BACTERIAL FINAL 08/07/17 09:47 MIXED URETHRAL ANDREW. Performing Site: [facility] - [address] [place] [address] ---- END OF REPORT Normal [facility] Comment on above: Performed By: #### C BC, BMP, PHOS, MG, CK, UR, LDLP, URINC ####[address] [address] Urine Tox Screenon 8 Amphetamines, Ur $ Negative Normal NEG [facility] Comment on above: Performed By: #### C BC, BMP, PHOS, MG, CK, UR, LDLP, URINC ####[address] [address] Barbiturates, Ur Negative Normal NEG [facility] Comment on above: Performed By: #### C BC, BMP, PHOS, MG, CK, UR, LDLP, URINC ####[address] [address] Benzodiazepine, Ur Negative Normal NEG [facility] Comment on above: Performed By: #### C BC, BMP, PHOS, MG, CK, UR, LDLP, URINC ####[address] [address] Cocaine, Ur Negative Normal NEG [facility] Comment on above: Performed By: #### C BC, BMP, PHOS, MG, CK, UR, LDLP, URINC ####[address] [address] Methamphetamine, Ur Negative Normal NEG [facility] Comment on above: Performed By: #### C BC, BMP, PHOS, MG, CK, UR, LDLP, URINC ####[place] [id number] Opiates, Ur Negative Normal NEG [facility] Comment on above: Performed By: #### C BC, BMP, PHOS, MG, CK, UR, LDLP, URINC ####[address] [address] Phencyclidine, Ur Negative Normal NEG [facility] Comment on above: Performed By: #### C BC, BMP, PHOS, MG, CK, UR, LDLP, URINC ####[address] [address] Tetrahydrocannabinol, Ur Negative Normal NEG [facility] Comment on above: Performed By: #### C BC, BMP, PHOS, MG, CK, UR, LDLP, URINC ####[address] [address] Tricyclic Antidepressants, Ur Negative Normal NEG [facility] Comment on above: Performed By: #### C BC, BMP, PHOS, MG, CK, UR, LDLP, URINC ####[address] [address] Comment Normal [facility] Comment on above: Result Comment: Unco nfirmed Screening ResultsResults are to be used only for medical (i.e., treatment)purposes. Unconfirmed screening results must not be used fornon-medical purposes (e.g., employment testing, legaltesting). Performed By: #### C BC, BMP, PHOS, MG, CK, UR, LDLP, URINC ####[address] [address] Chest Single Xray 1 viewon 0 08-05-2017 Chest Single Xray 1 view [facility] Patient: CARLINE VILLARREAL [address] [facility] MR#: [id number] [place], [place] [address] : [address] Judd Black PA-C Dept: Diagnostic Imaging Loc: 1EDA DI REPORT Service Dt:08/05/17 Report#: [id number] Adm Dt: 08/05/17 Dis Dt: Comments: STUDY: CR Chest Single Xray 1 view; 08/05/2017 6:40 pm INDICATION: arm pain. COMPARISON: 06/24/2017 ACCESSION NUMBER(S): [id number] ORDERING CLINICIAN: Judd Black FINDINGS: LINES, TUBES, DEVICES: None. LUNGS: No pulmonary consolidation, pleural effusion or pneumothorax. CARDIOMEDIASTINAL SILHOUETTE: Tortuous thoracic aorta with atherosclerotic calcifications, otherwise the cardiomediastinal silhouette is normal in size and configuration. ABDOMEN: No remarkable upper abdominal findings. BONES: Postoperative changes of the shoulders. IMPRESSION: No acute cardiopulmonary process. Dictated by: Lena Kaminski Electronically Signed by: Lena Kaminski 08/05/2017 6:51 PM Normal [facility] Complete Blood Count w/diff $$on 08-05-2017 Basophils Auto #/vol (Bld) 0.0 10 /uL Low 0.04-0.9 [facility] Comment on above: Performed By: #### C BC, BMP, PHOS, MG, CK, UR, LDLP, URINC ####[place] [id number] [place] [address] Basophils/100 WBC Auto (Bld) 1 % Normal 0-1 [facility] Comment on above: Performed By: #### C BC, BMP, PHOS, MG, CK, UR, LDLP, URINC ####[place] [address] Eosinophils Auto #/vol (Bld) 0.1 10 3/uL Normal 0.03-0.6 [facility] Comment on above: Performed By: #### C BC, BMP, PHOS, MG, CK, UR, LDLP, URINC ####[address] [address] Eosinophils/100 WBC Auto (Bld) 1 % Normal 0-3 [facility] Comment on above: Performed By: #### C BC, BMP, PHOS, MG, CK, UR, LDLP, URINC ####[address] [address] Erythrocyte distribution width Auto Ratio (RBC) 13.9 % Normal 11.5-14.5 [facility] Comment on above: Performed By: #### C BC, BMP, PHOS, MG, CK, UR, LDLP, URINC ####[place] [address] Hematocrit Auto Volume Fraction (Bld) 43.2 % Normal 35-47 [facility] Comment on above: Performed By: #### C BC, BMP, PHOS, MG, CK, UR, LDLP, URINC ####[address] [address] Hemoglobin mass conc (Bld) 14.4 g/dL Normal 12.0-16.0 [facility] Comment on above: Performed By: #### C BC, BMP, PHOS, MG, CK, UR, LDLP, URINC ####[address] [address] Immature Gran# (Auto) 0.0 10 3/uL Normal [facility] Comment on above: Performed By: #### C BC, BMP, PHOS, MG, CK, UR, LDLP, URINC ####[address] [address] Immature granulocytes #/vol (Bld) 0.4 % Normal 0.0-0.9 [facility] Comment on above: Performed By: #### C BC, BMP, PHOS, MG, CK, UR, LDLP, URINC ####[address] [address] Lymphocytes Auto #/vol (Bld) 1.5 10 3/uL Normal 1-3.5 [facility] Comment on above: Performed By: #### C BC, BMP, PHOS, MG, CK, UR, LDLP, URINC ####[address] [address] Lymphocytes/100 WBC Auto (Bld) 19 % Low 24-44 [facility] Comment on above: Performed By: #### C BC, BMP, PHOS, MG, CK, UR, LDLP, URINC ####[address] [address] MCH Auto Entitic mass (RBC) 31.5 pg Normal 27-34 [facility] Comment on above: Performed By: #### C BC, BMP, PHOS, MG, CK, UR, LDLP, URINC ####[address] [address] MCH Auto Entitic mass (RBC) 33.3 g/dL Normal 33-37 [facility] Comment on above: Performed By: #### C BC, BMP, PHOS, MG, CK, UR, LDLP, URINC ####[address] [address] MCV Auto Entitic volume (RBC) 94.5 fL Normal 80-100 [facility] Comment on above: Performed By: #### C BC, BMP, PHOS, MG, CK, UR, LDLP, URINC ####[address] [address] Monocytes Auto #/vol (Bld) 0.4 10 3/uL Normal 0.04-0.9 [facility] Comment on above: Performed By: #### C BC, BMP, PHOS, MG, CK, UR, LDLP, URINC ####[address] [address] Monocytes/100 WBC Auto (Bld) 6 % Normal 1-8 [facility] Comment on above: Performed By: #### C BC, BMP, PHOS, MG, CK, UR, LDLP, URINC ####[address] [address] Neutrophils Auto #/vol (Bld) 5.5 10 3/uL Normal 1.8-7.0 [facility] Comment on above: Performed By: #### C BC, BMP, PHOS, MG, CK, UR, LDLP, URINC ####[address] [address] Neutrophils/100 WBC Auto (Bld) 73 % Normal 42-76 [facility] Comment on above: Performed By: #### C BC, BMP, PHOS, MG, CK, UR, LDLP, URINC ####[address] [address] Nucleated RBC/100 WBC Ratio (Bld) 0.0 % Normal 0.0-0.0 [facility] Comment on above: Performed By: #### C BC, BMP, PHOS, MG, CK, UR, LDLP, URINC ####[address] [address] Platelet mean volume Auto Entitic volume (Bld) 10.9 fL High 7.4-10.4 [facility] Comment on above: Performed By: #### C BC, BMP, PHOS, MG, CK, UR, LDLP, URINC ####[address] [address] Platelets Auto #/vol (Bld) 242 10 3/uL Normal 150-400 [facility] Comment on above: Performed By: #### C BC, BMP, PHOS, MG, CK, UR, LDLP, URINC ####[address] [address] RBC Auto #/vol (Bld) 4.57 10 6/uL Normal 4.2-5.4 [facility] Comment on above: Performed By: #### C BC, BMP, PHOS, MG, CK, UR, LDLP, URINC ####[facility] [place] [address] WBC Auto #/vol (Bld) 7.6 10 3/uL Normal 4.0-11.0 [facility] Comment on above: Performed By: #### C BC, BMP, PHOS, MG, CK, UR, LDLP, URINC ####[address] [address] Comprehensive Metabolic Pane mandeep 08-05-2017 AST enzyme act/vol 20 U/L Normal 15-37 [facility] Comment on above: Result Comment: SLIG HT HEMOLYSIS Performed By: #### C BC, BMP, PHOS, MG, CK, UR, LDLP, URINC ####[facility] [place] [address] Potassium molar conc 4.6 mmol/L Normal 3.5-5.1 [facility] Comment on above: Result Comment: SLIG HT HEMOLYSIS Performed By: #### C BC, BMP, PHOS, MG, CK, UR, LDLP, URINC ####[address] [address] Albumin mass conc 4.3 g/dL Normal 3.4-5.0 [facility] Comment on above: Performed By: #### C BC, BMP, PHOS, MG, CK, UR, LDLP, URINC ####[facility] [place] [address] ALP enzyme act/vol 113 U/L Normal 50-136 [facility] Comment on above: Performed By: #### C BC, BMP, PHOS, MG, CK, UR, LDLP, URINC ####[address] [address] ALT enzyme act/vol 17 U/L Normal 12-78 [facility] Comment on above: Performed By: #### C BC, BMP, PHOS, MG, CK, UR, LDLP, URINC ####[facility] [place] [address] Anion gap 3 molar conc 12.6 mmol/L Normal P [facility] Comment on above: Performed By: #### C BC, BMP, PHOS, MG, CK, UR, LDLP, URINC ####[facility] [place] [address] Bilirubin Ql (U) 0.4 mg/dL Normal 0.2-1.0 [facility] Comment on above: Performed By: #### C BC, BMP, PHOS, MG, CK, UR, LDLP, URINC ####[facility] [place] [address] Calcium mass conc 9.6 mg/dL Normal 8.5-10.1 [facility] Comment on above: Performed By: #### C BC, BMP, PHOS, MG, CK, UR, LDLP, URINC ####[facility] [place] [address] Chloride molar conc 106 mmol/L Normal 98-107 [facility] Comment on above: Performed By: #### C BC, BMP, PHOS, MG, CK, UR, LDLP, URINC ####[facility] [place] [address] CO2 molar conc 27 mmol/L Normal 21-32 [facility] Comment on above: Performed By: #### C BC, BMP, PHOS, MG, CK, UR, LDLP, URINC ####[facility] [place] [address] Creatinine mass conc 0.8 mg/dL Normal 0.6-1.3 [facility] Comment on above: Performed By: #### C BC, BMP, PHOS, MG, CK, UR, LDLP, URINC ####[address] [address] GFR () >60 Normal [facility] Comment on above: Performed By: #### C BC, BMP, PHOS, MG, CK, UR, LDLP, URINC ####[address] [address] GFR (Non ) >60 Normal [facility] Comment on above: Result Comment: eGFR Units of measure: mL/min/1.73 m 2 Performed By: #### C BC, BMP, PHOS, MG, CK, UR, LDLP, URINC ####[address] [address] Glucose mass conc 112 mg/dL High 74-106 [facility] Comment on above: Performed By: #### C BC, BMP, PHOS, MG, CK, UR, LDLP, URINC ####[address] [address] Protein mass conc 7.4 g/dL Normal 6.4-8.2 [facility] Comment on above: Performed By: #### C BC, BMP, PHOS, MG, CK, UR, LDLP, URINC ####[address] [address] Sodium molar conc 141 mmol/L Normal 136-145 [facility] Comment on above: Performed By: #### C BC, BMP, PHOS, MG, CK, UR, LDLP, URINC ####[address] [address] Urea nitrogen mass conc (Bld) 16 mg/dL Normal 7-18 [facility] Comment on above: Performed By: #### C BC, BMP, PHOS, MG, CK, UR, LDLP, URINC ####[address] [place] [address] ED Visit Summaryon 8 ED Visit Summary [facility] Patient: CARLINE VILLARREAL [address] [facility] MR#: [id number] [place], [place] [address] : 1945 Ord. : Dept: Emergency Department Loc: 1EDA ER Physician Documentation Service Dt: 08/05/17 Report#: [id number] Adm Dt: 08/05/17 Dis Dt: Entered by Good Yuan, acting as scribe for Skyler Whaley, 08/05/171920. Patient Information - Chief Complaint Initial Complaint: ELEVATED BP, RIGHT SIDE PAIN Chief Complaint: See Chief Complaint - Nursing Triage Note Nursing Triage Note: per daughter the patient had a stoke in May, family took her from the group home and took her to [place] , she returned today a few hours ago, but he fell a few days ago and is having left sided pain which is not new from the fall with BP issues per family - Allergies Allergies/Adverse Rxn: Allergies No Known Allergies Allergy (Verified 05/07/17 23:11) - Narrative HPI/ROS/Exam: 08/05/17 19:12 HPI: 71 year old female with history of CVA and HTN presents to the ED with complaints of pain of her whole left side. Patient states late last April she was admitted for CVA and was placed in a group home for a few months for rehabilitation, with physical therapy. For the past three weeks, patient has been in [place] with her son, and just today has returned to [place]. She notes that 3 days ago she fell on her left side, but that the pain she is having was prior to this fall. Patient notes she has had difficulty with ambulation and weakness of her left upper extremity, but denies having had any change to speech. She also denies having a history of [place] or diabetes. Dr. Colon is patient's primary care physician. - Review of Systems Constitutional: Positive: no symptoms EENTM: Positive: no symptoms reported Respiratory: Positive: no symptoms reported Cardiac (ROS): Positive: no symptoms reported ABD/GI: Positive: no symptoms reported : Positive: no symptoms reported Musculoskeletal: Positive: no symptoms reported Skin: Positive: no symptoms reported Neurological: Positive: weakness, other (Pain of whole left side, Inability to ambulate) Endocrine: Positive: no symptoms reported Hematologic/Lymphatic: Positive: no symptoms reported Psychiatric: Positive: no symptoms All Other Systems: Reviewed and Negative - Physical Exam General appearance: Positive: alert, in no apparent distress HEENT: Positive: head normal inspection, PERRL, EOMI Neck: Positive: Supple Respiratory: Positive: normal lung sounds bilaterally Cardiovascular: Positive: regular rate, normal rhythm GI/Abdominal: Positive: soft, nontender Extremities: Positive: full ROM (Spontaneous movement of left upper and lower extremities.), other (Weakness of left upper and lower extremities. Brace on left lower extremity (placed after CVA)) Neurological: Positive: alert, oriented X3 Integumentary: Positive: warm, dry, intact Psychiatric: Positive: normal affect, normal mood - Social Medical History Smoking Status: Never smoker Alcohol Use: No Alcohol Frequency/Amount: none Drug Use: No Involved in Unsafe/Hurtful Relationship: No Is Patient Being Hurt at Home or Feeling Unsafe: No Neurological Hx: CVA/Stroke, Dementia, Migraine Headache Other Neuro Hx: per sister, is forgetful ENT/Eye Hx: Cataract(s) Cardiac Hx: High Cholesterol, HTN Hx Heart Failure? How Many Times?: No GI Hx: GERD Other GI Hx: UMBILICAL HERNIA, APPENDECTOMY Musculoskeletal Hx: Arthritis, Joint replacement, Knee replacement, left, Knee replacement, right Other Musculoskelatal Hx: BILATERAL ROTATOR CUFF REPLACEMENTS Integumentary Hx: Psoriasis Psych Hx: Anxiety, Depression - Family History Father Family Hx: Unknown Mother Family Hx: Unknown - Vital Signs Vitals: Vital Signs Temp Pulse Resp BP Pulse Ox 08/05/17 17:35 83 18 158/89 H 100 08/05/17 17:28 36.5 C 72 18 165/85 H 100 - MDM/Admission Progress Note MDM Note: 08/05/17 23:09 Patient is a 71-year-old female presenting to the emergency department with complaint of inability to ambulate well with frequent falls and generalized weakness. Patient apparently had a stroke several months ago and the family states that the patient has not recovered to a degree which she can care for herself or they can care for her at home. Apparently the patient had a course of time in a rehabilitation facility and then spent time for couple weeks with her son in [place]. Patient was sent back to [place] secondary to his inability to care for her. According to the patient, the family is had conversation with her primary care physician and was cut told to come to the emergency department for further evaluation for possible placement in a group home or rehabilitation facility for Vicodin ambulation. We are awaiting that consultation as I have placed several calls to but I have not been able to get a hold him. Dr. Harman will speak with Dr. Colon regarding the patient's final disposition. She is remained hemodynamically stable in the emergency department - Critical Care Time Total Critical Care Time (min): 0 - Radiology Data Radiology results: report reviewed, image reviewed Interpreted by Me: No Radiology Impressions: Chest xray, per radiology impression, notes no acute cardiopulmonary process. Handoff - Handoff Provider Handoff: ED Attending to ED Attending - /Provider Provider Receiving Handoff: Jenni Harman - Pending Items Pending items to be checked and documented: Physician/Consult arrival (consultation with Dr. Colon pending) - Handoff Date/Time Handoff Date: 08/05/17 Handoff Time: 23:09 ED Physician Disposition - Clinical Impression Clinical Impression: Impaired ambulation, Musculoskeletal strain Contusion of Rib Qualifiers: Encounter type: initial encounter Laterality: left Qualified Code(s): S20.212A - Contusion of left front wall of thorax, initial encounter - Discharge ED MD Scribe Attestation All medical record entries made by Good Yuan were at my direction and personally dictated by me. I have reviewed the chart and agree that the record accurately reflects my personal performance of the history, physical exam, assessment and plan. I have also personally directed, reviewed, and agree with the discharge instructions. Skyler Whaley, DO 08/05/17 2301 Normal [facility] ED Visit Summary [facility] Patient: CARLINE VILLARREAL [address] [facility] MR#: [id number] [place], [place] [address] : 1945 [address][birth year] : Dept: Emergency Department Loc: ED-ONC 346-1 ER Physician Documentation Service Dt: 08/05/17 Report#: [id number] Adm Dt: 08/05/17 Dis Dt: Physician in Triage - Triage Notes Notes: 08/05/17 17:44 71-year-old female history of prior CVA has a chief complaint today of left arm discomfort and not being able to function at home. Patient was admitted to a group home after the stroke and then was down at [place] staying with her son who then sent her back up here for further evaluation because she is not able to function on her own. She was not doing well apparently during rehabilitation. She is not walking any better than she was from the stroke. Dr. Barry sent her in today for evaluation and possible admission to group home. She denies having chest pain or shortness of breath, dizziness lightheadedness, nausea vomiting, headache, neck pain or any other associates symptoms. Limited physical examination an triage reveals left-sided weakness upper extremity, nonambulatory and otherwise unremarkable. ED course IV established drawn, EKG, chest x-ray. Normal [facility] Troponin Ion 08-05-2017 Troponin I.cardiac mass conc ng/mL Normal 0.00-0.045 [facility] Comment on above: Performed By: #### C BC, BMP, PHOS, MG, CK, UR, LDLP, URINC ####[facility] [place] [address] Brain or Head without Contra ston 06-24-2017 Brain or Head without Contrast [facility] Patient: CARLINE VILLARREAL [address] [facility] MR#: [id number] [place], [place] [address] : 1945 Ord[birth year] : Iban Lauren MD Dept: Diagnostic Imaging Loc: 1EDA DI REPORT Service Dt:06/24/17 Report#: [id number] Adm Dt: 06/24/17 Dis Dt: Comments: 14 STUDY: CT Brain or Head without Contrast; 06/24/2017 1:46 pm INDICATION: Injury. COMPARISON: 05/07/2017 ACCESSION NUMBER(S): [id number] ORDERING CLINICIAN: Iban Lauren TECHNIQUE: Volume acquisition through the brain with axial coronal and sagittal reformatted 5 mm images. No IV contrast. FINDINGS: INTRACRANIAL: The ventricles are midline in position.Danielson-white matter differentiation is fairly well maintained. Encephalomalacia in the right superior frontoparietal lobe is unchanged. There are mild periventricular white-matter small-vessel probable chronic ischemic changes. There is no evidence of an acute hemorrhage. There is no midline shift. There is no extra-axial mass or fluid collection. Moderate atherosclerotic calcification of the vertebral arteries. EXTRACRANIAL: Partial opacification left ethmoid sinuses is unchanged. The imaged mastoid air cells are clear. The calvarium is intact. IMPRESSION: Chronic appearing ischemic changes with encephalomalacia in the right superior frontoparietal lobe. No significant interval change. No evidence of an acute hemorrhage. Dictated by: Gal Gonzalez Electronically Signed by: Gal Gonzalez 06/24/2017 1:56 PM Normal [facility] Chest Portable Xray 1 viewon 06-24-2017 Chest Portable Xray 1 view [facility] Patient: CARLINE VILLARREAL [address] [facility] MR#: [id number] [place], [place] [address] : [address] Iban Lauren MD Dept: Diagnostic Imaging Loc: 1EDA DI REPORT Service Dt:06/24/17 Report#: [id number] Adm Dt: 06/24/17 Dis Dt: Comments: 14 STUDY: CR Chest Portable Xray 1 view; 06/24/2017 1:10 pm INDICATION: Shortness of breath. COMPARISON: Comparison is made with the prior study of 05/08/2017. ACCESSION NUMBER(S): [id number] ORDERING CLINICIAN: Iban Lauren FINDINGS: Single upright AP portable chest demonstrates suboptimal inspiratory effort with slight blunting of the costophrenic angle on the right there is atherosclerotic change of the aorta without cardiomegaly. There is a right shoulder reverse shoulder arthroplasty present. IMPRESSION: No acute cardiopulmonary process. Dictated by: Jeronimo Razo III Electronically Signed by: Jeronimo Razo III 06/24/2017 1:16 PM Normal [facility] Complete Blood Count w/diff $$on 06-24-2017 Basophils Auto #/vol (Bld) 0.0 10 /uL Low 0.04-0.9 [facility] Comment on above: Performed By: #### C BC, BMP, PHOS, MG, CK, UR, LDLP, URINC ####[address] [address] Basophils/100 WBC Auto (Bld) 1 % Normal 0-1 [facility] Comment on above: Performed By: #### C BC, BMP, PHOS, MG, CK, UR, LDLP, URINC ####[address] [address] Eosinophils Auto #/vol (Bld) 0.2 10 3/uL Normal 0.03-0.6 [facility] Comment on above: Performed By: #### C BC, BMP, PHOS, MG, CK, UR, LDLP, URINC ####[address] [address] Eosinophils/100 WBC Auto (Bld) 3 % Normal 0-3 [facility] Comment on above: Performed By: #### C BC, BMP, PHOS, MG, CK, UR, LDLP, URINC ####[address] [address] Erythrocyte distribution width Auto Ratio (RBC) 12.8 % Normal 11.5-14.5 [facility] Comment on above: Performed By: #### C BC, BMP, PHOS, MG, CK, UR, LDLP, URINC ####[address] [address] Hematocrit Auto Volume Fraction (Bld) 38.5 % Normal 35-47 [facility] Comment on above: Performed By: #### C BC, BMP, PHOS, MG, CK, UR, LDLP, URINC ####[address] [address] Hemoglobin mass conc (Bld) 13.0 g/dL Normal 12.0-16.0 [facility] Comment on above: Performed By: #### C BC, BMP, PHOS, MG, CK, UR, LDLP, URINC ####[place] [address] Immature Gran# (Auto) 0.0 10 3/uL Normal [facility] Comment on above: Performed By: #### C BC, BMP, PHOS, MG, CK, UR, LDLP, URINC ####[place] [address] Immature granulocytes #/vol (Bld) 0.2 % Normal 0.0-0.9 [facility] Comment on above: Performed By: #### C BC, BMP, PHOS, MG, CK, UR, LDLP, URINC ####[place] [address] Lymphocytes Auto #/vol (Bld) 1.0 10 3/uL Normal 1-3.5 [facility] Comment on above: Performed By: #### C BC, BMP, PHOS, MG, CK, UR, LDLP, URINC ####[place] [address] Lymphocytes/100 WBC Auto (Bld) 18 % Low 24-44 [facility] Comment on above: Performed By: #### C BC, BMP, PHOS, MG, CK, UR, LDLP, URINC ####[place] [id number] MCH Auto Entitic mass (RBC) 32.0 pg Normal 27-34 [facility] Comment on above: Performed By: #### C BC, BMP, PHOS, MG, CK, UR, LDLP, URINC ####[address] [address] MCH Auto Entitic mass (RBC) 33.8 g/dL Normal 33-37 [facility] Comment on above: Performed By: #### C BC, BMP, PHOS, MG, CK, UR, LDLP, URINC ####[address] [address] MCV Auto Entitic volume (RBC) 94.8 fL Normal 80-100 [facility] Comment on above: Performed By: #### C BC, BMP, PHOS, MG, CK, UR, LDLP, URINC ####[address] [address] Monocytes Auto #/vol (Bld) 0.5 10 3/uL Normal 0.04-0.9 [facility] Comment on above: Performed By: #### C BC, BMP, PHOS, MG, CK, UR, LDLP, URINC ####[address] [address] Monocytes/100 WBC Auto (Bld) 9 % High 1-8 [facility] Comment on above: Performed By: #### C BC, BMP, PHOS, MG, CK, UR, LDLP, URINC ####[address] [address] Neutrophils Auto #/vol (Bld) 4.0 10 3/uL Normal 1.8-7.0 [facility] Comment on above: Performed By: #### C BC, BMP, PHOS, MG, CK, UR, LDLP, URINC ####[address] [address] Neutrophils/100 WBC Auto (Bld) 69 % Normal 42-76 [facility] Comment on above: Performed By: #### C BC, BMP, PHOS, MG, CK, UR, LDLP, URINC ####[address] [address] Nucleated RBC/100 WBC Ratio (Bld) 0.0 % Normal 0.0-0.0 [facility] Comment on above: Performed By: #### C BC, BMP, PHOS, MG, CK, UR, LDLP, URINC ####[address] [address] Platelet mean volume Auto Entitic volume (Bld) 10.2 fL Normal 7.4-10.4 [facility] Comment on above: Performed By: #### C BC, BMP, PHOS, MG, CK, UR, LDLP, URINC ####[address] [address] Platelets Auto #/vol (Bld) 253 10 3/uL Normal 150-400 [facility] Comment on above: Performed By: #### C BC, BMP, PHOS, MG, CK, UR, LDLP, URINC ####[address] [address] RBC Auto #/vol (Bld) 4.06 10 6/uL Low 4.2-5.4 [facility] Comment on above: Performed By: #### C BC, BMP, PHOS, MG, CK, UR, LDLP, URINC ####[address] [address] WBC Auto #/vol (Bld) 5.7 10 3/uL Normal 4.0-11.0 [facility] Comment on above: Performed By: #### C BC, BMP, PHOS, MG, CK, UR, LDLP, URINC ####[address] [address] Comprehensive Metabolic Pane mandeep 06-24-2017 Potassium molar conc 4.1 mmol/L Normal 3.5-5.1 [facility] Comment on above: Result Comment: WANDA Nagel SLIGHTLY HEMOLYZED--- 06/24/17 1350 ---K previously reported as: 4.1 mmol/L Performed By: #### C BC, BMP, PHOS, MG, CK, UR, LDLP, URINC ####[address] [address] Albumin mass conc 3.8 g/dL Normal 3.4-5.0 [facility] Comment on above: Performed By: #### C BC, BMP, PHOS, MG, CK, UR, LDLP, URINC ####[address] [address] ALP enzyme act/vol 88 U/L Normal 50-136 [facility] Comment on above: Performed By: #### C BC, BMP, PHOS, MG, CK, UR, LDLP, URINC ####[address] [address] ALT enzyme act/vol 20 U/L Normal 12-78 [facility] Comment on above: Performed By: #### C BC, BMP, PHOS, MG, CK, UR, LDLP, URINC ####[address] [address] Anion gap 3 molar conc 15.1 mmol/L Normal P [facility] Comment on above: Performed By: #### C BC, BMP, PHOS, MG, CK, UR, LDLP, URINC ####[address] [address] AST enzyme act/vol 30 U/L Normal 15-37 [facility] Comment on above: Performed By: #### C BC, BMP, PHOS, MG, CK, UR, LDLP, URINC ####[address] [address] Bilirubin Ql (U) 0.5 mg/dL Normal 0.2-1.0 [facility] Comment on above: Performed By: #### C BC, BMP, PHOS, MG, CK, UR, LDLP, URINC ####[address] [address] Calcium mass conc 9.9 mg/dL Normal 8.5-10.1 [facility] Comment on above: Performed By: #### C BC, BMP, PHOS, MG, CK, UR, LDLP, URINC ####[address] [address] Chloride molar conc 105 mmol/L Normal 98-107 [facility] Comment on above: Performed By: #### C BC, BMP, PHOS, MG, CK, UR, LDLP, URINC ####[address] [address] CO2 molar conc 24 mmol/L Normal 21-32 [facility] Comment on above: Performed By: #### C BC, BMP, PHOS, MG, CK, UR, LDLP, URINC ####[address] [address] Creatinine mass conc 0.8 mg/dL Normal 0.6-1.3 [facility] Comment on above: Performed By: #### C BC, BMP, PHOS, MG, CK, UR, LDLP, URINC ####[address] [address] GFR () >60 Normal [facility] Comment on above: Performed By: #### C BC, BMP, PHOS, MG, CK, UR, LDLP, URINC ####[address] [address] GFR (Non ) >60 Normal [facility] Comment on above: Result Comment: eGFR Units of measure: mL/min/1.73 m 2 Performed By: #### C BC, BMP, PHOS, MG, CK, UR, LDLP, URINC ####[address] [address] Glucose mass conc 105 mg/dL Normal 74-106 [facility] Comment on above: Performed By: #### C BC, BMP, PHOS, MG, CK, UR, LDLP, URINC ####[address] [address] Protein mass conc 6.7 g/dL Normal 6.4-8.2 [facility] Comment on above: Performed By: #### C BC, BMP, PHOS, MG, CK, UR, LDLP, URINC ####[facility] [place] [address] Sodium molar conc 140 mmol/L Normal 136-145 [facility] Comment on above: Performed By: #### C BC, BMP, PHOS, MG, CK, UR, LDLP, URINC ####[facility] [place] [address] Urea nitrogen mass conc (Bld) 17 mg/dL Normal 7-18 [facility] Comment on above: Performed By: #### C BC, BMP, PHOS, MG, CK, UR, LDLP, URINC ####[facility] [place] [address] ED Visit Summaryon 7 ED Visit Summary [facility] Patient: CARLINE VILLARREAL [address] [facility] MR#: [id number] [place], [place] [address] : 1945 [address]per: Dept: Emergency Department Loc: 1EDA ER Physician Documentation Service Dt: 06/24/17 Report#: [id number] Adm Dt: 06/24/17 Dis Dt: Entered by Yenni Parra, acting as scribe for Iban Lauren MD 06/24/17 5870. Patient Information - Chief Complaint Initial Complaint: headachex 1 hr with dizziness Chief Complaint: Headache - Nursing Triage Note Nursing Triage Note: pt c/o headache for 1 hour - Allergies Allergies/Adverse Rxn: Allergies No Known Allergies Allergy (Verified 05/07/17 23:11) - Narrative HPI/ROS/Exam: 06/24/17 13:02 Scribed by Tita Parra HPI: This is a 71 year old female with history of migraines, hypertension, hyperlipidemia, and CVA with residual left-sided weakness who presents to the ED for headache. Patient states she has been in a group home for the past week after a fall. Today she states she became lightheaded while standing up at a physical therapy session. She denies near syncope as well as vertiginous dizziness. Patient also reports a mild frontal headache which she states does not feel like her typical migraines. She states her blood pressure taken at the group home today was in the 180s systolic. She denies any chest pain, shortness of breath, nausea, vomiting, diarrhea, and new back pain or abdominal pain. Patient additionally reports that she was recently treated for a urinary tract infection. She finished her course of antibiotics and states they have not worked. States she lives alone. Her blood pressure in the ED is 134/78. Character: Severity: Mild to moderate Exacerbated by: Nothing Improved by: Nothing Recently seen by: Denies Recent changes include: Denies Review of Systems: 10 point system review is negative except for those specifically mentioned in history of present illness Physical Exam: Constitutional/General : Alert and oriented x3, well appearing, nontoxic, and in NAD. Head: Normocephalic and atraumatic. Eyes: PERRL, EOMI, conjunctive normal, sclera nonicteric, subconjunctival layer is pink. Mouth: Oropharynx clear, handling secretions, no trismus, no asymmetry of the posterior oropharynx or uvular edema Neck: Supple, full ROM, non tender to palpation in the midline, no stridor, no crepitus, no meningeal signs. Trachea at midline. Respiratory: Lungs clear to auscultation bilaterally, no wheezes, rales, or rhonchi, not in respiratory distress. Cardiovascular: Regular rate, regular rhythm, no murmurs, gallops, or rubs, 2+ distal pulses. Chest: Normal chest wall movement GI: Abdomen soft, nontender, nondistended, + BS, no organomegaly, no palpable masses, no rebound, guarding, or rigidity. Musculoskeletal: Warm and well perfused, no clubbing, cyanosis, or edema, cap refill <3 seconds. Residual left-sided weakness. Integument: Skin warm and dry, no rashes. Lymphatic: No lymphadenopathy noted. Neurologic: GCS 15, residual left-sided weakness. Psychiatric: Normal affect. ED Course and Medical Decision Makin71 year old female with history of migraines, hypertension, hyperlipidemia, and CVA with residual left-sided weakness presents to the ED for headache. Physical exam performed by me is benign with the exception of residual left-sided weakness. Ordered EKG, chest x-ray, CT head, and the appropriate labs. She received Benadryl, Reglan, and Toradol for her headache. Differential diagnosis includes, but is not limited to: Intracranial bleed vs ACS vs vasovagal syncope. CXR: Per Radiology impression, chest x-ray shows no acute cardiopulmonary process. CT Head: Per Radiology impression, CT head shows chronic appearing ischemic changes with encephalomalacia in the right superior frontoparietal lobe. No significant interval change. No evidence of an acute hemorrhage. EKG: Normal sinus rhythm, rate of 90 bpm, and no acute ischemic changes as interpreted by me. Labs: CBC and chemistry are normal. Troponin is negative. Urinalysis suggests urinary tract infection with urine WBCs > 50. Disposition: Patient is stable for discharge home with prescription for Bactrim. She understands and verbalizes agreement with this plan. - Social Medical History Smoking Status: Never smoker Alcohol Use: No Drug Use: No Neurological Hx: CVA/Stroke, Migraine Headache Other Neuro Hx: per sister, is forgetful ENT/Eye Hx: Cataract(s) Cardiac Hx: High Cholesterol, HTN Hx Heart Failure? How Many Times?: No GI Hx: GERD Other GI Hx: UMBILICAL HERNIA, APPENDECTOMY Musculoskeletal Hx: Arthritis, Joint replacement, Knee replacement, left, Knee replacement, right Other Musculoskelatal Hx: BILATERAL ROTATOR CUFF REPLACEMENTS Integumentary Hx: Psoriasis Psych Hx: Anxiety, Depression - Family History Father Family Hx: Unknown Mother Family Hx: Unknown - Vital Signs Vitals: Vital Signs Temp Pulse Resp BP Pulse Ox 06/24/17 12:15 36.8 C 80 16 138/77 100 - Labs Lab Results: Lab Results 06/24/17 06/24/17 14:00 12:57 WBC 5.7 RBC 4.06 L Hgb 13.0 Hct 38.5 MCV 94.8 MCH 32.0 MCHC 33.8 RDW 12.8 Plt Count 253 MPV 10.2 Immature Gran % (Auto) 0.2 Neut % (Auto) 69 Lymph % (Auto) 18 L [place] % (Auto) 9 H Eos % (Auto) 3 Baso % (Auto) 1 Nucleat RBC Rel Count 0.0 Immature Gran # (Auto) 0.0 Neut # (Auto) 4.0 Lymph # (Auto) 1.0 [place] # (Auto) 0.5 Eos # (Auto) 0.2 Baso # (Auto) 0.0 L Sodium 140 Potassium 4.1 Chloride 105 Carbon Dioxide 24 Anion Gap 15.1 BUN 17 Creatinine 0.8 Estim Creat Clear Calc No Ht and/or Wt Est GFR ( Amer) >60 Est GFR (Non-Af Amer) >60 Fasting Glucose 105 Calcium 9.9 Total Bilirubin 0.5 AST 30 ALT 20 Alkaline Phosphatase 88 Total Protein 6.7 Albumin 3.8 Urine Color Yellow Urine Clarity Turbid Urine pH 8.0 Ur Specific Bend 1.008 Urine Protein Negative Urine Glucose (UA) Negative Urine Ketones Negative Urine Blood Negative Urine Nitrate Positive H Urine Bilirubin Negative Urine Urobilinogen Normal Ur Leukocyte Esterase 3+ H Urine WBC >50 H Ur Squamous Epith Cells Rare Amorphous Sediment Moderate Urine Bacteria Occasional Urine Mucus Rare - MDM/Admission Progress Note MDM Note: 06/24/17 13:00 See narrative section for medical decision making. - Critical Care Time Total Critical Care Time (min): 0 ED Physician Disposition - Clinical Impression Clinical Impression: Lightheadedness UTI (urinary tract infection) Qualifiers: Urinary tract infection type: acute cystitis Hematuria presence: without hematuria Qualified Code(s): N30.00 - Acute cystitis without hematuria Hypertension Qualifiers: Hypertension type: unspecified Qualified Code(s): I10 - Essential (primary) hypertension - Disposition Disposition: TO HOME - Discharge Instructions: Urinary Tract Infection in Women (ED), Hypertension (ED), Lightheadedness (ED) Prescriptions/Orders: Co-Trimoxazole 800 mg/160 mg [Bactrim DS] 1 tab PO Q12 #14 tab Referrals: Grant Colon MD [Primary Care Provider] - Time of Disposition: 15:15 ED Resident Attestation - Attestation Attestation: 06/24/17 15:37 ED MD Scribe Attestation All medical record entries made by Yenni Parra were at my direction and personally dictated by me. I have reviewed the chart and agree that the record accurately reflects my personal performance of the history, physical exam, assessment and plan. I have also personally directed, reviewed, and agree with the discharge instructions. 06/24/17 1537 ED MD Wilson Attestation All medical record entries made by Yenni Parra were at my direction and personally dictated by me. I have reviewed the chart and agree that the record accurately reflects my personal performance of the history, physical exam, assessment and plan. I have also personally directed, reviewed, and agree with the discharge instructions. Iban Lauren MD 06/24/17 1513 Normal [facility] Urinalysison 06-24-2017 Bacteria LM.HPF #/area (Urine sed) Occasional Normal 0 [facility] Comment on above: Order Comment: Comme nt CVMS Performed By: #### C BC, BMP, PHOS, MG, CK, UR, LDLP, URINC ####[address] [address] Amorphous Sediment, Urine Moderate Normal [facility] Comment on above: Order Comment: Comme nt CVMS Performed By: #### C BC, BMP, PHOS, MG, CK, UR, LDLP, URINC ####[address] [address] Bilirubin, Urine Negative Normal Negative [facility] Comment on above: Order Comment: Comme nt CVMS Performed By: #### C BC, BMP, PHOS, MG, CK, UR, LDLP, URINC ####[address] [address] Clarity Nom (U) Turbid Normal [facility] Comment on above: Order Comment: Comme nt CVMS Performed By: #### C BC, BMP, PHOS, MG, CK, UR, LDLP, URINC ####[address] [address] Color Nom (U) Yellow Normal [facility] Comment on above: Order Comment: Comme nt CVMS Performed By: #### C BC, BMP, PHOS, MG, CK, UR, LDLP, URINC ####[address] [place] [address] Epithelial Cells Rare Normal 0-5 [facility] Comment on above: Order Comment: Comme nt CVMS Performed By: #### C BC, BMP, PHOS, MG, CK, UR, LDLP, URINC ####[address] [address] Glucose Ql (U) Negative Normal Negative [facility] Comment on above: Order Comment: Comme nt CVMS Performed By: #### C BC, BMP, PHOS, MG, CK, UR, LDLP, URINC ####[address] [address] Hemoglobin Test strip Ql (U) Negative Normal Negative [facility] Comment on above: Order Comment: Comme nt CVMS Performed By: #### C BC, BMP, PHOS, MG, CK, UR, LDLP, URINC ####[address] [address] Ketones Ql (U) Negative Normal Negative [facility] Comment on above: Order Comment: Comme nt CVMS Performed By: #### C BC, BMP, PHOS, MG, CK, UR, LDLP, URINC ####[address] [address] Leukocyte esterase Test strip Ql (U) 3+ Abnormal Negative [facility] Comment on above: Order Comment: Comme nt CVMS Performed By: #### C BC, BMP, PHOS, MG, CK, UR, LDLP, URINC ####[address] [address] Mucus, Urine Rare Normal [facility] Comment on above: Order Comment: Comme nt CVMS Performed By: #### C BC, BMP, PHOS, MG, CK, UR, LDLP, URINC ####[address] [address] Nitrates, Urine Positive Abnormal Negative [facility] Comment on above: Order Comment: Comme nt CVMS Performed By: #### C BC, BMP, PHOS, MG, CK, UR, LDLP, URINC ####[address] [address] pH Test strip (U) 8.0 [pH] Normal 5.0-9.0 [facility] Comment on above: Order Comment: Comme nt CVMS Performed By: #### C BC, BMP, PHOS, MG, CK, UR, LDLP, URINC ####[address] [address] Protein, Urine Negative Normal Negative [facility] Comment on above: Order Comment: Comme nt CVMS Performed By: #### C BC, BMP, PHOS, MG, CK, UR, LDLP, URINC ####[address] [address] [place], Urine 1.008 Normal 1.000-1.030 [facility] Comment on above: Order Comment: Comme nt CVMS Performed By: #### C BC, BMP, PHOS, MG, CK, UR, LDLP, URINC ####[address] [address] Urobilinogen, Urine Normal Normal <2.0 [facility] Comment on above: Order Comment: Comme nt CVMS Performed By: #### C BC, BMP, PHOS, MG, CK, UR, LDLP, URINC ####[address] [address] WBC LM.HPF #/area (Urine sed) /[HPF] Abnormal 0-2 [facility] Comment on above: Order Comment: Comme nt CVMS Performed By: #### C BC, BMP, PHOS, MG, CK, UR, LDLP, URINC ####[address] [address] Urine Cultureon 12-21-2017 Bacteria identified Cx Nom (U) ---- RUN DATE: 06/24/17 [facility] LAB LIVE PAGE 1 RUN TIME: 1550 Specimen Inquiry ---- PATIENT: CARLINE VILLARREAL ACCT: [id number] LOC: 1EDA U: [id number] AGE/SX: 71/F ROOM: RE06/24/[address]: bIan Lauren MD : 1945 BED: DIS: STATUS: STEPHEN MINER TLOC: ---- SPEC #: [id number] ASHOK: 06/24/17 STATUS: SYED REQ #: [id number] RECD: - ARVIN DR: Iban Lauren MD SOURCE: URINE ENTR: 06/24/[address]: Grant Colon MD SPDESC: CLEAN CATC ORDERED: Urine Culture ---- Procedure Result ---- CANCELLED Duplicate Request ---- END OF REPORT Normal [facility] Comment on above: Performed By: #### C BC, BMP, PHOS, MG, CK, UR, LDLP, URINC ####[facility] [place] [address] Bacteria identified Cx Nom (U) ---- RUN DATE: 06/25/17 [facility] LAB LIVE PAGE 1 RUN TIME: 1450 Specimen Inquiry ---- PATIENT: CARLINE VILLARREAL Nicole ACCT: [id number] LOC: 1EDA U: [id number] AGE/SX: 71/F ROOM: RE06/24/[address]: Iban Lauren MD : 1945 BED: DIS: STATUS: TAMARA MINER TLOC: ---- SPEC #: [id number] ASHOK: 06/24/17 STATUS: COMP REQ #: [id number] RECD: 06/24/[address]: Iban Lauren MD SOURCE: URINE ENTR: 06/24/[address]: Grant Colon MD [facility]: Urine Not ORDERED: Urine Culture ---- Procedure Result ---- > Urine Culture Final COMMENT PATIENT: CARLOS VILLARREALAnnamaria Rivera [place] [facility] [id number] : 45 AGE: SEX: F ORDERED BY: PHYSICIAN, AMBULATORY SOURCE: URINE COLLECTED: 06/24/17 15:07 ANTIBIOTICS AT [facility]SHOK.: RECEIVED : 06/24/17 21:12 SITE: [facility] R [facility] U [facility] T S URINE CULTURE,BACTERIAL FINAL 06/25/17 14:50 MULTIPLE ORGANISMS PRESENT, PROBABLE CONTAMINATION PLEASE REPEAT CULTURE. Performing Site: [facility] - [address] [place] [address] ---- END OF REPORT Normal [facility] Comment on above: Performed By: #### C BC, BMP, PHOS, MG, CK, UR, LDLP, URINC ####[facility] [place] [address] Urinalysison 05-31-2017 Color Nom (U) Yellow Normal [facility] Comment on above: Order Comment: FAX C HL [phone] [phone] Performed By: #### C BC, BMP, PHOS, MG, CK, UR, LDLP, URINC ####[facility] [place] [address] Bacteria LM.HPF #/area (Urine sed) Many Abnormal 0 [facility] Comment on above: Order Comment: FAX C HL [phone] [phone] Performed By: #### C BC, BMP, PHOS, MG, CK, UR, LDLP, URINC ####[facility] [place] [address] Bilirubin, Urine Negative Normal Negative [facility] Comment on above: Order Comment: FAX C [phone] [phone] Performed By: #### C BC, BMP, PHOS, MG, CK, UR, LDLP, URINC ####[facility] [place] [address] Calcium Oxalate Crystals, Ur Rare Normal [facility] Comment on above: Order Comment: FAX C [phone] [facility] [phone] Performed By: #### C BC, BMP, PHOS, MG, CK, UR, LDLP, URINC ####[facility] [place] [address] Clarity Nom (U) Cloudy Normal [facility] Comment on above: Order Comment: FAX C [phone] [place] [phone] Performed By: #### C BC, BMP, PHOS, MG, CK, UR, LDLP, URINC ####[facility] [place] [id number] Epithelial Cells Moderate Abnormal 0-5 [facility] Comment on above: Order Comment: FAX C [phone] [facility] [phone] Performed By: #### C BC, BMP, PHOS, MG, CK, UR, LDLP, URINC ####[facility] [place] [address] Glucose Ql (U) Negative Normal Negative [facility] Comment on above: Order Comment: FAX C [phone] [facility] [phone] Performed By: #### C BC, BMP, PHOS, MG, CK, UR, LDLP, URINC ####[facility] [place] [address] Hemoglobin Test strip Ql (U) Negative Normal Negative [facility] Comment on above: Order Comment: FAX C [phone] [facility] [phone] Performed By: #### C BC, BMP, PHOS, MG, CK, UR, LDLP, URINC ####[facility] [place] [address] Hyaline Casts, Urine 0-5 Normal [facility] Comment on above: Order Comment: FAX C [phone] [facility] [phone] Performed By: #### C BC, BMP, PHOS, MG, CK, UR, LDLP, URINC ####[facility] [place] [address] Ketones Ql (U) Negative Normal Negative [facility] Comment on above: Order Comment: FAX C [phone] [facility] [phone] Performed By: #### C BC, BMP, PHOS, MG, CK, UR, LDLP, URINC ####[facility] [place] [address] Leukocyte esterase Test strip Ql (U) 3+ Abnormal Negative [facility] Comment on above: Order Comment: FAX [place] [phone] [facility] [phone] Performed By: #### C BC, BMP, PHOS, MG, CK, UR, LDLP, URINC ####[facility] [place] [address] Mucus, Urine Rare Normal [facility] Comment on above: Order Comment: FAX C [phone] [facility] [phone] Performed By: #### C BC, BMP, PHOS, MG, CK, UR, LDLP, URINC ####[facility] [place] [address] Nitrates, Urine Negative Normal Negative [facility] Comment on above: Order Comment: FAX C [phone] [phone] Performed By: #### C BC, BMP, PHOS, MG, CK, UR, LDLP, URINC ####[facility] [place] [address] pH Test strip (U) 6.0 [pH] Normal 5.0-9.0 [facility] Comment on above: Order Comment: FAX [place] [phone] Performed By: #### C BC, BMP, PHOS, MG, CK, UR, LDLP, URINC ####[address] [address] Protein, Urine 1+ Abnormal Negative [facility] Comment on above: Order Comment: FAX [place] [phone] [place] [phone] Performed By: #### C BC, BMP, PHOS, MG, CK, UR, LDLP, URINC ####[address] [address] RBC LM.HPF #/area (Urine sed) 5-10 Abnormal 0-3 [facility] Comment on above: Order Comment: FAX [place] [phone] [place] [phone] Performed By: #### C BC, BMP, PHOS, MG, CK, UR, LDLP, URINC ####[address] [address] [place], Urine 1.015 Normal 1.000-1.030 [facility] Comment on above: Order Comment: FAX [place] [phone] [place] [phone] Performed By: #### C BC, BMP, PHOS, MG, CK, UR, LDLP, URINC ####[address] [address] Transitional Epi Cells, Urine 1 /HPF Normal [facility] Comment on above: Order Comment: FAX C [phone] [facility] [phone] Performed By: #### C BC, BMP, PHOS, MG, CK, UR, LDLP, URINC ####[facility] [place] [address] [phone] Urobilinogen, Urine 2.0 mg/dL Normal <2.0 [facility] Comment on above: Order Comment: FAX C [phone] [facility] [phone] Performed By: #### C BC, BMP, PHOS, MG, CK, UR, LDLP, URINC ####[address] [address] WBC LM.HPF #/area (Urine sed) /[HPF] Abnormal 0-2 [facility] Comment on above: Order Comment: FAX C [phone] [facility] [phone] Performed By: #### C BC, BMP, PHOS, MG, CK, UR, LDLP, URINC ####[address] [phone] Brain or Head without Contra ston 05-08-2017 Brain or Head without Contrast [facility] Patient: CARLINE VILLARREAL [address] [facility] MR#: [id number] [place], [place] [address] : [address] Alfonso Berry MD Dept: Diagnostic Imaging Loc: 1EDA DI REPORT Service Dt:05/07/17 Report#: [id number] Adm Dt: 05/07/17 Dis Dt: Comments: STUDY: CT Brain or Head without Contrast; CT Cervical Spine W/O Contrast; 05/07/2017 11:30 pm INDICATION: head injury; neck pain status post fall. COMPARISON: CT scan of the head 05/04/2017. CTA neck 05/05/2017 ACCESSION NUMBER(S): [id number]; [id number] ORDERING CLINICIAN: Alfonso Berry TECHNIQUE: Noncontrast CT images of head. Axial noncontrast CT images of the cervical spine with coronal and reconstructed images. FINDINGS: BRAIN PARENCHYMA: There is redemonstration of area of low-attenuation within the right frontoparietal centrum semiovale which appears more prominent when compared to prior CT. This is consistent with evolving right MCA territory infarct. Remainder of the danielson-white matter interfaces are preserved. No mass effect or midline shift. Mild deep and periventricular white matter hypodensities are nonspecific, but favored to represent chronic small vessel ischemic changes. HEMORRHAGE: No acute intracranial hemorrhage. VENTRICLES and EXTRA-AXIAL SPACES: Prominent ventricles and sulci. EXTRACRANIAL SOFT TISSUES: Within normal limits. PARANASAL SINUSES/MASTOIDS: Opacification of left ethmoid air cells. Remainder of the visualized paranasal sinuses and mastoid air cells are aerated. CALVARIUM: No depressed skull fracture. No destructive osseous lesion. OTHER FINDINGS: Atherosclerotic calcification of the carotid siphons and vertebral arteries.. Customer Care Specialist images demonstrate bilateral shoulder arthroplasties CERVICAL SPINE: Study slightly limited secondary to streak artifact from bilateral shoulder hardware. ALIGNMENT: Reversal of the normal lordotic curve. There is 2-3 mm anterolisthesis of C7 on T1, stable from prior neck CT. VERTEBRAE: No acute fracture. Multilevel discogenic degenerative changes with loss of disc height and anterior osteophyte formation worse at C5-6 and C6-7. Facet and uncovertebral hypertrophic changes with bilateral neural foraminal narrowing, worse at C5-6 and C6-7. SPINAL CANAL: No critical spinal canal stenosis. PREVERTEBRAL SOFT TISSUES: No prevertebral soft tissue swelling. LUNG APICES: Imaged portion of the lung apices are within normal limits. OTHER FINDINGS: Atherosclerotic calcification of the aortic arch. IMPRESSION: Redemonstration of hypodensity in the right frontoparietal centrum semiovale consistent with evolving infarct. No evidence for intracranial hemorrhage. No acute fracture or traumatic subluxation of the cervical spine. Multilevel discogenic degenerative changes as described above. Reversal of the normal lordotic curve could be secondary patient positioning or spasm. 2-3 mm anterolisthesis of C7 on T1. Dictated by: Juan Blanca Electronically Signed by: Juan Blanca 05/08/2017 12:23 AM Normal [facility] Cervical Spine W/O Contrasto n 05-08-2017 Cervical Spine W/O Contrast [facility] Patient: CARLINE VILLARREAL [address] MR#: [id number] [place], [place] [address] : [address] Alfonso Berry MD Dept: Diagnostic Imaging Loc: 1EDA DI REPORT Service Dt:05/07/17 Report#: [id number] Adm Dt: 05/07/17 Dis Dt: Comments: STUDY: CT Brain or Head without Contrast; CT Cervical Spine W/O Contrast; 05/07/2017 11:30 pm INDICATION: head injury; neck pain status post fall. COMPARISON: CT scan of the head 05/04/2017. CTA neck 05/05/2017 ACCESSION NUMBER(S): [id number]; [id number] ORDERING CLINICIAN: Alfonso Berry TECHNIQUE: Noncontrast CT images of head. Axial noncontrast CT images of the cervical spine with coronal and reconstructed images. FINDINGS: BRAIN PARENCHYMA: There is redemonstration of area of low-attenuation within the right frontoparietal centrum semiovale which appears more prominent when compared to prior CT. This is consistent with evolving right MCA territory infarct. Remainder of the danielson-white matter interfaces are preserved. No mass effect or midline shift. Mild deep and periventricular white matter hypodensities are nonspecific, but favored to represent chronic small vessel ischemic changes. HEMORRHAGE: No acute intracranial hemorrhage. VENTRICLES and EXTRA-AXIAL SPACES: Prominent ventricles and sulci. EXTRACRANIAL SOFT TISSUES: Within normal limits. PARANASAL SINUSES/MASTOIDS: Opacification of left ethmoid air cells. Remainder of the visualized paranasal sinuses and mastoid air cells are aerated. CALVARIUM: No depressed skull fracture. No destructive osseous lesion. OTHER FINDINGS: Atherosclerotic calcification of the carotid siphons and vertebral arteries.. Customer Care Specialist images demonstrate bilateral shoulder arthroplasties CERVICAL SPINE: Study slightly limited secondary to streak artifact from bilateral shoulder hardware. ALIGNMENT: Reversal of the normal lordotic curve. There is 2-3 mm anterolisthesis of C7 on T1, stable from prior neck CT. VERTEBRAE: No acute fracture. Multilevel discogenic degenerative changes with loss of disc height and anterior osteophyte formation worse at C5-6 and C6-7. Facet and uncovertebral hypertrophic changes with bilateral neural foraminal narrowing, worse at C5-6 and C6-7. SPINAL CANAL: No critical spinal canal stenosis. PREVERTEBRAL SOFT TISSUES: No prevertebral soft tissue swelling. LUNG APICES: Imaged portion of the lung apices are within normal limits. OTHER FINDINGS: Atherosclerotic calcification of the aortic arch. IMPRESSION: Redemonstration of hypodensity in the right frontoparietal centrum semiovale consistent with evolving infarct. No evidence for intracranial hemorrhage. No acute fracture or traumatic subluxation of the cervical spine. Multilevel discogenic degenerative changes as described above. Reversal of the normal lordotic curve could be secondary patient positioning or spasm. 2-3 mm anterolisthesis of C7 on T1. Dictated by: Juan Blanca Electronically Signed by: Juan Blanca 05/08/2017 12:23 AM Normal [facility] Chest Single Xray 1 viewon 1 07-08-2016 Chest Single Xray 1 view [facility] Patient: CARLINE VILLARREAL [address] [facility] MR#: [id number] [place], [place] [address] : [address] Alfonso Berry MD Dept: Diagnostic Imaging Loc: 1EDA DI REPORT Service Dt:05/07/17 Report#: [id number] Adm Dt: 05/07/17 Dis Dt: Comments: STUDY: CR Chest Single Xray 1 view; 05/07/2017 11:25 pm INDICATION: chest injury. COMPARISON: Chest x-ray 2016 ACCESSION NUMBER(S): [id number] ORDERING CLINICIAN: Alfonso Berry FINDINGS: Multiple overlying leads present. CARDIOMEDIASTINAL SILHOUETTE: Cardiomediastinal silhouette is normal in size and configuration. Atherosclerotic calcification of the aorta with mild unfolding of the descending thoracic aorta. LUNGS: Note is made of low lung volumes with bronchovascular crowding. No consolidation, pleural effusion or pneumothorax. ABDOMEN: No remarkable upper abdominal findings. BONES: Postsurgical changes of bilateral shoulder arthroplasty. Multilevel degenerative changes of the spine. IMPRESSION: No acute cardiopulmonary process. Dictated by: Juan Blanca Electronically Signed by: Juan Blanca 05/08/2017 1:20 AM Normal [facility] ED Visit Summaryon 7 ED Visit Summary [facility] Patient: CARLINE VILLARREAL [address] MR#: [id number] [place], [place] [address] : [address] Dept: Emergency Department Loc: 1EDA ER Physician Documentation Service Dt: 05/07/17 Report#: [id number] Adm Dt: 05/07/17 Dis Dt: Entered by Autumn Palacios, acting as scribe for Alfonso Berry MD 05/07/17 3163. Patient Information - Chief Complaint Initial Complaint: HEAD TRAUMA - Allergies Allergies/Adverse Rxn: Allergies No Known Allergies Allergy (Verified 05/07/17 23:11) - Narrative HPI/ROS/Exam: 05/07/17 22:56 Scribed by Autumn Palacios HPI: A 71 year old female with a history of bilateral knee replacements and stroke presenting to the ED for evaluation of mechanical fall. Patient was in a wheelchair when she tried to move and fell forward at the group home today. Patient hit her head but did not lose consciousness after the fall. Patient complains of right knee pain, left forehead pain and right rib pain. Patient had a stroke 2 weeks ago and currently has residual left sided weakness. Review of systems: All other systems are reviewed and negative except as noted in history of present illness. Physical Exam: General: Alert, nontoxic, well-appearing, and in no acute distress. HEENT: Head is normocephalic and atraumatic. PERRL and EOMI bilaterally. No scleral icterus or conjunctival pallor. Neck: Supple. No lymphadenopathy. Cardiovascular: Regular rate and rhythm. Normal S1-S2, no murmurs, rubs, or gallops. No JVD or peripheral pitting edema. Chest: Right midlateral, midcage tenderness, no crepitus Respiratory: Lungs clear to auscultation bilaterally. Abdomen: Soft. Nontender. Nondistended. Normal bowel sounds and no hepatosplenomegaly. Musculoskeletal/Extrem ities: Full ROM. No joint tenderness or swelling. Mild peripatellar tenderness, no swelling or effusion Neurologic: Alert and oriented ?3. No gross focal neuro deficits. Left sided weakness secondary to recent stroke Skin: Warm dry and intact. No rash or lesions. Psychiatric: Normal mood. Normal affect. MDM: Patient was seen and evaluated for mechanical fall. Will obtain labs, Head CT w/o contrast, cervical spine CT, Chest x-ray and right knee x-ray. Concerning for scalp contusion vs knee contusion vs acute fracture vs rib contusion vs ICH. Patient was given Lisinopril 20mg and Percocet 1 tablet. Imaging showed negative results. Upon reevaluation, patient's pain improved and is stable to be discharged back to the group home. - Social Medical History Smoking Status: Never smoker Alcohol Use: No Drug Use: No Neurological Hx: Migraine Headache Other Neuro Hx: per sister, is forgetful ENT/Eye Hx: Cataract(s) Cardiac Hx: High Cholesterol, HTN Hx Heart Failure? How Many Times?: No GI Hx: GERD Other GI Hx: UMBILICAL HERNIA, APPENDECTOMY Musculoskeletal Hx: Arthritis, Joint replacement, Knee replacement, left, Knee replacement, right Other Musculoskelatal Hx: BILATERAL ROTATOR CUFF REPLACEMENTS Integumentary Hx: Psoriasis Psych Hx: Anxiety, Depression - Family History Father Family Hx: Unknown Mother Family Hx: Unknown - MDM/Admission Progress Note MDM Note: 05/07/17 23:05 Scribed by Autumn Palacios See narrative for MDM - Critical Care Time Total Critical Care Time (min): 0 ED Physician Disposition - Clinical Impression Clinical Impression: Knee contusion Qualifiers: Encounter type: initial encounter Laterality: unspecified laterality Qualified Code(s): S80.00XA - Contusion of unspecified knee, initial encounter Rib contusion Qualifiers: Encounter type: initial encounter Laterality: unspecified laterality Qualified Code(s): S20.219A - Contusion of unspecified front wall of thorax, initial encounter Head contusion Qualifiers: Encounter type: initial encounter Contusion of head detail: unspecified part of head Qualified Code(s): S00.93XA - Contusion of unspecified part of head, initial encounter - Disposition Disposition: TO HOME Discharged With/To: A Detention - Discharge Instructions: Contusion in Adults (ED) Additional Instructions: Follow-up with primary care physician in 3-5 days. Return to the ED if symptoms worsen or new symptoms arise. Referrals: Grant Colon MD [Primary Care Provider] - Time of Disposition: 00:43 ED Scribe Attestation All medical record entries made by Autumn Palacios were at my direction and personally dictated by me. I have reviewed the chart and agree that the record accurately reflects my personal performance of the history, physical exam, assessment and plan. I have also personally directed, reviewed, and agree with the discharge instructions. Alfonso Berry MD 05/08/17 0045 Normal [facility] Knee Right Limited 1-2 Views on 05-08-2017 Knee Right Limited 1-2 Views [facility] Patient: CARLINE VILLARREAL [address] [facility] MR#: [id number] [place], [place] [address] : [address] Alfonso Berry MD Dept: Diagnostic Imaging Loc: 1EDA DI REPORT Service Dt:05/07/17 Report#: [id number] Adm Dt: 05/07/17 Dis Dt: Comments: STUDY: CR Knee Right Limited 1-2 Views; 05/07/2017 11:25 pm INDICATION: injury/fall. COMPARISON: None. ACCESSION NUMBER(S): [id number] ORDERING CLINICIAN: Alfonso Berry FINDINGS: AP and lateral views of the right knee are obtained. Postsurgical changes of right total knee arthroplasty. No acute fracture or dislocation. No perihardware lucency 2 suggest acute complicating process. No significant joint effusion. Enthesopathy changes along the superior pole of the patella. IMPRESSION: No acute fracture. Postsurgical changes of right total knee arthroplasty. Dictated by: Juan Blanca Electronically Signed by: Juan Blanca 05/08/2017 1:25 AM Normal [facility] Basic Metabolic Panel $$$on 05-07-2017 Anion gap 3 molar conc 13.1 mmol/L Normal P [facility] Comment on above: Performed By: #### C BC, BMP, PHOS, MG, CK, UR, LDLP, URINC ####[facility] [place], [place] [id number] Calcium mass conc 8.8 mg/dL Normal 8.5-10.1 [facility] Comment on above: Performed By: #### C BC, BMP, PHOS, MG, CK, UR, LDLP, URINC ####[address] [address] Chloride molar conc 107 mmol/L Normal 98-107 [facility] Comment on above: Performed By: #### C BC, BMP, PHOS, MG, CK, UR, LDLP, URINC ####[address] [address] CO2 molar conc 26 mmol/L Normal 21-32 [facility] Comment on above: Performed By: #### C BC, BMP, PHOS, MG, CK, UR, LDLP, URINC ####[address] [address] Creatinine mass conc 0.8 mg/dL Normal 0.6-1.3 [facility] Comment on above: Performed By: #### C BC, BMP, PHOS, MG, CK, UR, LDLP, URINC ####[address] [address] Estimated Creatinine Clearance 46 mL/min Low 75-115 [facility] Comment on above: Performed By: #### C BC, BMP, PHOS, MG, CK, UR, LDLP, URINC ####[address] [address] GFR () >60 Normal [facility] Comment on above: Performed By: #### C BC, BMP, PHOS, MG, CK, UR, LDLP, URINC ####[address] [address] GFR (Non ) >60 Normal [facility] Comment on above: Result Comment: eGFR Units of measure: mL/min/1.73 m 2 Performed By: #### C BC, BMP, PHOS, MG, CK, UR, LDLP, URINC ####[address] [address] Glucose mass conc 107 mg/dL High 74-106 [facility] Comment on above: Performed By: #### C BC, BMP, PHOS, MG, CK, UR, LDLP, URINC ####[address] [address] Potassium molar conc 4.1 mmol/L Normal 3.5-5.1 [facility] Comment on above: Performed By: #### C BC, BMP, PHOS, MG, CK, UR, LDLP, URINC ####[address] [address] Sodium molar conc 142 mmol/L Normal 136-145 [facility] Comment on above: Performed By: #### C BC, BMP, PHOS, MG, CK, UR, LDLP, URINC ####[address] [address] Urea nitrogen mass conc (Bld) 13 mg/dL Normal 7-18 [facility] Comment on above: Performed By: #### C BC, BMP, PHOS, MG, CK, UR, LDLP, URINC ####[address] [address] Complete Blood Count w/diff $$on 05-07-2017 Basophils Auto #/vol (Bld) 0.0 10 /uL Low 0.04-0.9 [facility] Comment on above: Performed By: #### C BC, BMP, PHOS, MG, CK, UR, LDLP, URINC ####[address] [address] Basophils/100 WBC Auto (Bld) 1 % Normal 0-1 [facility] Comment on above: Performed By: #### C BC, BMP, PHOS, MG, CK, UR, LDLP, URINC ####[address] [address] Eosinophils Auto #/vol (Bld) 0.2 10 3/uL Normal 0.03-0.6 [facility] Comment on above: Performed By: #### C BC, BMP, PHOS, MG, CK, UR, LDLP, URINC ####[address] [address] Eosinophils/100 WBC Auto (Bld) 5 % High 0-3 [facility] Comment on above: Performed By: #### C BC, BMP, PHOS, MG, CK, UR, LDLP, URINC ####[address] [address] Erythrocyte distribution width Auto Ratio (RBC) 13.5 % Normal 11.5-14.5 [facility] Comment on above: Performed By: #### C BC, BMP, PHOS, MG, CK, UR, LDLP, URINC ####[address] [address] Hematocrit Auto Volume Fraction (Bld) 26.9 % Low 35-47 [facility] Comment on above: Performed By: #### C BC, BMP, PHOS, MG, CK, UR, LDLP, URINC ####[address] [address] Hemoglobin mass conc (Bld) 9.1 g/dL Low 12.0-16.0 [facility] Comment on above: Performed By: #### C BC, BMP, PHOS, MG, CK, UR, LDLP, URINC ####[address] [address] Immature Gran# (Auto) 0.0 10 3/uL Normal [facility] Comment on above: Performed By: #### C BC, BMP, PHOS, MG, CK, UR, LDLP, URINC ####[address] [address] Immature granulocytes #/vol (Bld) 0.2 % Normal 0.0-0.9 [facility] Comment on above: Performed By: #### C BC, BMP, PHOS, MG, CK, UR, LDLP, URINC ####[facility] [place] [address] Lymphocytes Auto #/vol (Bld) 0.9 10 3/uL Low 1-3.5 [facility] Comment on above: Performed By: #### C BC, BMP, PHOS, MG, CK, UR, LDLP, URINC ####[address] [address] Lymphocytes/100 WBC Auto (Bld) 22 % Low 24-44 [facility] Comment on above: Performed By: #### C BC, BMP, PHOS, MG, CK, UR, LDLP, URINC ####[address] [address] MCH Auto Entitic mass (RBC) 34.3 pg High 27-34 [facility] Comment on above: Performed By: #### C BC, BMP, PHOS, MG, CK, UR, LDLP, URINC ####[address] [address] MCH Auto Entitic mass (RBC) 33.8 g/dL Normal 33-37 [facility] Comment on above: Performed By: #### C BC, BMP, PHOS, MG, CK, UR, LDLP, URINC ####[address] [address] MCV Auto Entitic volume (RBC) 101.5 fL High 80-100 [facility] Comment on above: Performed By: #### C BC, BMP, PHOS, MG, CK, UR, LDLP, URINC ####[address] [address] Monocytes Auto #/vol (Bld) 0.3 10 3/uL Normal 0.04-0.9 [facility] Comment on above: Performed By: #### C BC, BMP, PHOS, MG, CK, UR, LDLP, URINC ####[address] [address] Monocytes/100 WBC Auto (Bld) 8 % Normal 1-8 [facility] Comment on above: Performed By: #### C BC, BMP, PHOS, MG, CK, UR, LDLP, URINC ####[address] [address] Neutrophils Auto #/vol (Bld) 2.7 10 3/uL Normal 1.8-7.0 [facility] Comment on above: Performed By: #### C BC, BMP, PHOS, MG, CK, UR, LDLP, URINC ####[address] [address] Neutrophils/100 WBC Auto (Bld) 64 % Normal 42-76 [facility] Comment on above: Performed By: #### C BC, BMP, PHOS, MG, CK, UR, LDLP, URINC ####[address] [address] Nucleated RBC/100 WBC Ratio (Bld) 0.0 % Normal 0.0-0.0 [facility] Comment on above: Performed By: #### C BC, BMP, PHOS, MG, CK, UR, LDLP, URINC ####[address] [address] Platelet mean volume Auto Entitic volume (Bld) 10.8 fL High 7.4-10.4 [facility] Comment on above: Performed By: #### C BC, BMP, PHOS, MG, CK, UR, LDLP, URINC ####[address] [address] Platelets Auto #/vol (Bld) 230 10 3/uL Normal 150-400 [facility] Comment on above: Performed By: #### C BC, BMP, PHOS, MG, CK, UR, LDLP, URINC ####[facility] [place] [address] RBC Auto #/vol (Bld) 2.65 10 6/uL Low 4.2-5.4 [facility] Comment on above: Performed By: #### C BC, BMP, PHOS, MG, CK, UR, LDLP, URINC ####[facility] [place] [address] WBC Auto #/vol (Bld) 4.2 10 3/uL Normal 4.0-11.0 [facility] Comment on above: Performed By: #### C BC, BMP, PHOS, MG, CK, UR, LDLP, URINC ####[address] [address] Progress Noteson 05-07-2017 Protein mass [facility] Patient: CARLINE VILLARREAL MR#: [id number] [place] [id number] : 1945 Ord[address] : Dept: PDOC Loc: 3MED-ONC 340-1 Physician Progress Note Service Dt: 05/07/17 Report#: [id number] Adm Dt: 05/04/17 Dis Dt: 05/07/17 Note - Patient Note Observation: 05/07/17 14:38 Patient fully evaluated today. Neurologic examination slight improvement left-sided weakness. Patient discharged to F. Agree with resident Normal [facility] Protein mass [facility] Patient: CARLINE VILLARREAL MR#: [id number] [place], [place] [address] : 1945 Ord[address] : Dept: PDOC Loc: 3MED-ONC 340-1 Physician Progress Note Service Dt: 05/07/17 Report#: [id number] Adm Dt: 05/04/17 Dis Dt: 05/07/17 Note - Patient Note Observation: 05/07/17 09:44 S: Patient was seen and fully evaluated. No acute events overnight. Patient was sitting on a wheelchair with 2 PT during my visit. She's more alert and oriented this AM. She's able to abduct her L arm to about 90 degrees and demonstrate slight external rotation on her L hip. Denies fever, chills, nausea, vomiting, chest pain, palpitations, and abdominal pain. Currently awaiting for precert to [facility] for rehab. O: VSS, afebrile PHYSICAL EXAM: Constitutional/General : Alert and oriented x3, well appearing, nontoxic, and in NAD Head: Normocephalic and atraumatic Eyes: PERRL, EOMI, conjunctive normal, sclera non icteric Mouth: Oropharynx clear, handling secretions, no trismus, no asymmetry of the posterior oropharynx or uvular edema Neck: supple, full ROM, non tender to palpation in the midline, no stridor, no crepitus, no meningeal signs Respiratory: Lungs clear to auscultation bilaterally, no wheezes, rales, or rhonchi, not in respiratory distress Cardiovascular: Regular rate, regular rhythm, no murmurs, gallops, or rubs, 2+ distal pulses Chest: No chest wall tenderness GI: Abdomen soft, nontender, nondistended, + BS, no organomegaly, no palpable masses, no rebound, guarding, or rigidity Musculoskeletal: Slight external rotation on L hip, able to abduct both arms to about 90 degrees, warm and well perfused, no clubbing, cyanosis, or edema, cap refill <3 seconds Integument: Skin warm and dry, no rashes Lymphatic: No lymphadenopathy noted Neurologic: GCS 15, no focal deficits noted on face, sensory to light touch intact in all 4 extremities, RLE motor strength 5/5 Psychiatric: Normal affect A/P: # CVA, R MCV infarction # EDWIGE, resolved # UTI # HTN # DVT prophylaxis - continue plavix and lipitor - aggressive rehab at [facility] - aspirin discontinued - final urine culture positive for E coli sensitive to cefazolin, keflex for a total of 7-day course prescribed - resumed home dosed antihypertensive medication - lovenox SC while she's in house Normal [facility] Basic Metabolic Panel $$$on 05-06-2017 Anion gap 3 molar conc 13.1 mmol/L Normal P [facility] Comment on above: Performed By: #### C BC, BMP, PHOS, MG, CK, UR, LDLP, URINC ####[address] [address] Calcium mass conc 8.9 mg/dL Normal 8.5-10.1 [facility] Comment on above: Performed By: #### C BC, BMP, PHOS, MG, CK, UR, LDLP, URINC ####[address] [address] Chloride molar conc 109 mmol/L High 98-107 [facility] Comment on above: Performed By: #### C BC, BMP, PHOS, MG, CK, UR, LDLP, URINC ####[address] [address] CO2 molar conc 24 mmol/L Normal 21-32 [facility] Comment on above: Performed By: #### C BC, BMP, PHOS, MG, CK, UR, LDLP, URINC ####[address] [address] Creatinine mass conc 0.9 mg/dL Normal 0.6-1.3 [facility] Comment on above: Performed By: #### C BC, BMP, PHOS, MG, CK, UR, LDLP, URINC ####[address] [address] Estimated Creatinine Clearance 41 mL/min Low 75-115 [facility] Comment on above: Performed By: #### C BC, BMP, PHOS, MG, CK, UR, LDLP, URINC ####[address] [address] GFR () >60 Normal [facility] Comment on above: Performed By: #### C BC, BMP, PHOS, MG, CK, UR, LDLP, URINC ####[facility] [place] [address] GFR (Non ) >60 Normal [facility] Comment on above: Result Comment: eGFR Units of measure: mL/min/1.73 m 2 Performed By: #### C BC, BMP, PHOS, MG, CK, UR, LDLP, URINC ####[facility] [place] [address] Glucose mass conc 114 mg/dL High 74-106 [facility] Comment on above: Performed By: #### C BC, BMP, PHOS, MG, CK, UR, LDLP, URINC ####[address] [address] Potassium molar conc 4.1 mmol/L Normal 3.5-5.1 [facility] Comment on above: Performed By: #### C BC, BMP, PHOS, MG, CK, UR, LDLP, URINC ####[facility] [place] [address] Sodium molar conc 142 mmol/L Normal 136-145 [facility] Comment on above: Performed By: #### C BC, BMP, PHOS, MG, CK, UR, LDLP, URINC ####[facility] [place] [address] Urea nitrogen mass conc (Bld) 21 mg/dL High 7-18 [facility] Comment on above: Performed By: #### C BC, BMP, PHOS, MG, CK, UR, LDLP, URINC ####[facility] [place] [address] [place] CTAon 05-06-2017 [place] [facility] Patient: CARLINE VILLARREAL [address] MR#: [id number] [place], [place] [address] : 1945 [facility]#: [id number] Ord. .: Beryl Perez DO, Resident Dept: Diagnostic Imaging Loc: 9W 922-2 DI REPORT Service Dt:05/05/17 Report#: [id number] Adm Dt: 05/04/17 Dis Dt: Comments: STUDY: CT [place] CTA; 05/05/2017 10:26 pm INDICATION: stroke. COMPARISON: MRI scan of the brain dated 05/05/2017 at 10:49 a.m. ACCESSION NUMBER(S): [id number] ORDERING CLINICIAN: Beryl Perez TECHNIQUE: Low dose axial CT images of the head and neck were obtained. Subsequently, 115 cc of Isovue 370. was administered intravenously and axial images were acquired. Coronal, sagittal, and 3-D reconstructions were provided for review. FINDINGS: Low-dose CT scan of the head and neck There is patchy lucency within the right frontal parietal centrum semiovale consistent with the patient's known area of ischemic change in this region. There is no evidence of acute intracranial hemorrhage. There is no evidence of focal mass effect or edema. The ventricles. Are within normal limits. Limited evaluation of the soft tissues of the neck demonstrate no evidence of focal neck masses or significant adenopathy. CTA of the cervical vasculature Imaging of the aortic arch and proximal brachiocephalic arteries is severely limited secondary to beam hardening artifact from the shoulders. The visualized cervical vertebral arteries are widely patent bilaterally. There is calcific plaque involving the proximal internal carotid arteries bilaterally without evidence of the significant stenosis. CTA of the intracranial vasculature There is calcific plaque involving the intracranial internal carotid arteries bilaterally without significant stenosis. The MCA and BALJINDER distributions. Opacify normally. There is calcific plaque involving the intracranial segment of the left vertebral artery with mild stenosis. The intracranial right vertebral artery is widely patent. The basilar artery and its major branches are widely patent. There is no evidence of aneurysm or vascular malformation. IMPRESSION: Limited evaluation of the aortic arch and proximal brachiocephalic artery secondary to beam hardening artifact from shoulders Calcific plaque involving the proximal internal carotid arteries bilaterally, and the intracranial internal carotid arteries bilaterally without significant stenosis Calcific plaque involving the intracranial left vertebral artery causing mild stenosis. Low CT scan demonstrates the ischemic changes involving the right frontal parietal centrum semiovale.. With the Dictated by: Finn Barillas Electronically Signed by: Finn Barillas 05/06/2017 10:11 AM Normal [facility] Complete Blood Count w/diff $$on 05-06-2017 Basophils Auto #/vol (Bld) 0.0 10 /uL Low 0.04-0.9 [facility] Comment on above: Performed By: #### C BC, BMP, PHOS, MG, CK, UR, LDLP, URINC ####[address] [address] Basophils/100 WBC Auto (Bld) 1 % Normal 0-1 [facility] Comment on above: Performed By: #### C BC, BMP, PHOS, MG, CK, UR, LDLP, URINC ####[address] [address] Eosinophils Auto #/vol (Bld) 0.2 10 3/uL Normal 0.03-0.6 [facility] Comment on above: Performed By: #### C BC, BMP, PHOS, MG, CK, UR, LDLP, URINC ####[address] [address] Eosinophils/100 WBC Auto (Bld) 4 % High 0-3 [facility] Comment on above: Performed By: #### C BC, BMP, PHOS, MG, CK, UR, LDLP, URINC ####[address] [address] Erythrocyte distribution width Auto Ratio (RBC) 13.6 % Normal 11.5-14.5 [facility] Comment on above: Performed By: #### C BC, BMP, PHOS, MG, CK, UR, LDLP, URINC ####[address] [address] Hematocrit Auto Volume Fraction (Bld) 27.0 % Low 35-47 [facility] Comment on above: Performed By: #### C BC, BMP, PHOS, MG, CK, UR, LDLP, URINC ####[address] [address] Hemoglobin mass conc (Bld) 8.7 g/dL Low 12.0-16.0 [facility] Comment on above: Performed By: #### C BC, BMP, PHOS, MG, CK, UR, LDLP, URINC ####[facility] [place] [address] Immature Gran# (Auto) 0.0 10 3/uL Normal [facility] Comment on above: Performed By: #### C BC, BMP, PHOS, MG, CK, UR, LDLP, URINC ####[address] [address] Immature granulocytes #/vol (Bld) 0.2 % Normal 0.0-0.9 [facility] Comment on above: Performed By: #### C BC, BMP, PHOS, MG, CK, UR, LDLP, URINC ####[address] [address] Lymphocytes Auto #/vol (Bld) 0.9 10 3/uL Low 1-3.5 [facility] Comment on above: Performed By: #### C BC, BMP, PHOS, MG, CK, UR, LDLP, URINC ####[address] [address] Lymphocytes/100 WBC Auto (Bld) 18 % Low 24-44 [facility] Comment on above: Performed By: #### C BC, BMP, PHOS, MG, CK, UR, LDLP, URINC ####[address] [address] MCH Auto Entitic mass (RBC) 33.2 pg Normal 27-34 [facility] Comment on above: Performed By: #### C BC, BMP, PHOS, MG, CK, UR, LDLP, URINC ####[address] [address] MCH Auto Entitic mass (RBC) 32.2 g/dL Low 33-37 [facility] Comment on above: Performed By: #### C BC, BMP, PHOS, MG, CK, UR, LDLP, URINC ####[address] [address] MCV Auto Entitic volume (RBC) 103.1 fL High 80-100 [facility] Comment on above: Performed By: #### C BC, BMP, PHOS, MG, CK, UR, LDLP, URINC ####[address] [address] Monocytes Auto #/vol (Bld) 0.3 10 3/uL Normal 0.04-0.9 [facility] Comment on above: Performed By: #### C BC, BMP, PHOS, MG, CK, UR, LDLP, URINC ####[address] [address] Monocytes/100 WBC Auto (Bld) 6 % Normal 1-8 [facility] Comment on above: Performed By: #### C BC, BMP, PHOS, MG, CK, UR, LDLP, URINC ####[address] [address] Neutrophils Auto #/vol (Bld) 3.7 10 3/uL Normal 1.8-7.0 [facility] Comment on above: Performed By: #### C BC, BMP, PHOS, MG, CK, UR, LDLP, URINC ####[address] [address] Neutrophils/100 WBC Auto (Bld) 72 % Normal 42-76 [facility] Comment on above: Performed By: #### C BC, BMP, PHOS, MG, CK, UR, LDLP, URINC ####[address] [address] Nucleated RBC/100 WBC Ratio (Bld) 0.0 % Normal 0.0-0.0 [facility] Comment on above: Performed By: #### C BC, BMP, PHOS, MG, CK, UR, LDLP, URINC ####[address] [address] Platelet mean volume Auto Entitic volume (Bld) 10.5 fL High 7.4-10.4 [facility] Comment on above: Performed By: #### C BC, BMP, PHOS, MG, CK, UR, LDLP, URINC ####[address] [address] Platelets Auto #/vol (Bld) 211 10 3/uL Normal 150-400 [facility] Comment on above: Performed By: #### C BC, BMP, PHOS, MG, CK, UR, LDLP, URINC ####[address] [address] RBC Auto #/vol (Bld) 2.62 10 6/uL Low 4.2-5.4 [facility] Comment on above: Performed By: #### C BC, BMP, PHOS, MG, CK, UR, LDLP, URINC ####[address] [address] WBC Auto #/vol (Bld) 5.2 10 3/uL Normal 4.0-11.0 [facility] Comment on above: Performed By: #### C BC, BMP, PHOS, MG, CK, UR, LDLP, URINC ####[address] [address] Discharge Summaryon 05-06-20 Discharge Summary [facility] Patient: CARLINE VILLARREAL [address] [facility] MR#: [id number] [place], [place] [address] [facility] 1945 [id number] : Dept: PDOC Loc: EDONC 340-1 Discharge Summary Service Dt: 05/06/17 Report#: [id number] Adm Dt: 05/04/17 Dis Dt: 05/07/17 Discharge Summary - Principal/Other Diagnoses (1) CVA (cerebral vascular accident) Status: Acute Current Visit: Yes Qualifiers: CVA mechanism: unspecified Qualified Code(s): I63.9 - Cerebral infarction, unspecified (2) EDWIGE (acute kidney injury) Status: Resolved Current Visit: Yes (3) UTI (urinary tract infection) Status: Acute Current Visit: Yes Qualifiers: Urinary tract infection type: acute cystitis Hematuria presence: with hematuria Qualified Code(s): N30.01 - Acute cystitis with hematuria (4) HTN (hypertension) Status: Chronic Current Visit: Yes Qualifiers: Hypertension type: essential hypertension Qualified Code(s): I10 - Essential (primary) hypertension (5) DVT prophylaxis Status: Acute Current Visit: Yes - Consultations Consulting Specialty: Neurology - Narrative Summary Hospital Course: Patient is a 71 year old female with a PMH significant for HTN who presented to the ED on 05/04/2017 after being found down at home. Patient states yesterday evening (05/03) she fell down in her home after walking out of the bathroom. She states she stood up and as she was walking out of the bathroom she developed some left sided weakness and fell down. She hit her head on the wall, but denies losing consciousness. UA suggestive of UTI. Patient has been receiving ceftriaxone. Initial head CT showed mild gangliocapsular and periventricular white matter hypodensities suggesting changes related to small vessel ischemia. Neurology has been consulted for stroke workup given patient's persistent LUE and LLE weakness. Routine stroke w/u was started. Head and neck MRA essentially negative. CTA negative for significant stenosis. MRI head findings consistent with R MCA infarction. Speech therapy has evaluated patient and recommended puree honey thick diet. PT/OT recommended SNF. Patient is deemed medically stable for discharge to SNF for aggressive PT/OT. Home dosed aspirin has been discontinued. Plavix and lipitor have been initiated. Urine culture prelim positive for enteric bacilli. She is to finish a course of keflex for a total of 7 days. - Vital Signs Vitals: Vital Signs (last response) Temperature 36.3 C L 05/06/17 13:50 Pulse/Heart Rate 87 05/06/17 13:50 Respiratory Rate 18 05/06/17 13:50 Blood Pressure 148/90 H 05/06/17 13:50 O2 Sat by Pulse Oximetry 97 05/06/17 13:50 - Physical Examination General appearance: in no apparent distress, lethargic, obese Eyes: Positive: EOMI Neck: Positive: trachea midline, supple, no JVD Respiratory: Positive: normal lung sounds bilaterally. Negative: wheezes, stridor, accessory muscle use Cardiovascular: Positive: regular rate, normal rhythm, +S1, +S2. Negative: rubs, gallop, clicks, +S3, +S4 GI/Abdominal: Positive: soft, nontender, nondistended. Negative: guarding, rebound, rigidity Extremities: Positive: no edema, no cellulitis, bilateral pulses positive Neurological: Positive: oriented X3, other (LUE and LLE weakness remain the same as yesterday, sensory to light touch intact in all 4 extremities, no focal deficits noted on face) Integumentary: Positive: warm, dry, intact - Disposition Disposition: TO SNF-OTHER - Other Patient Information Activity: Activity Ordered Up with Assistance Diet: Diet Pureed Diet - Consistency Start WedMay 05 Dinner Follow Up Plan: Dr. Colon will continue to follow up patient at [facility]. Aggressive PT/OT. Referrals: Grant Colon MD [Primary Care Provider] - - Discharge Medications Meds: Home Medications Medication Instructions Recorded Zolpidem Tartrate [Ambien] 10 mg PO QHS #0 tab 09/27/13 Non-Formulary Medication 1 each PO DAILY 05/04/17 [Non-Formulary Drug] Atorvastatin Calcium [Lipitor] 40 mg PO DAILY 30 Days #30 tab 05/06/17 Cephalexin Monohydrate [Keflex] 500 mg PO Q12 #14 cap 05/06/17 Clopidogrel Bisulfate [Plavix] 75 mg PO DAILY 30 Days #30 tab 05/06/17 Ferrous Sulfate [Feosol Tablet] 325 mg PO DAILY@0800 30 Days #30 05/06/17 tab Lorazepam [Ativan] 2 mg PO TID PRN #15 tab 05/06/17 oxyCODONE/ACETAM. 5MG/325MG 1 tab PO Q6 PRN #15 tab 05/06/17 [Percocet 325 mg-5 mg] - Time Spent with Patient Time with Patient: > 35 minutes Normal [facility] Echocardiogramon 05-06-2017 Echocardiogram [facility] , [address] [place] [address] and TRANSTHORACIC ECHOCARDIOGRAM REPORT Patient Name: CARLINE Rivera PHIL Reading Physician: DENICE De Los Santos MD Study Date: 05/06/2017 Referring Physician: Lorenzo Mohamud MRN/PID: [id number] PCP: Patient Department Location: [place] 9th floor CCU Stepdown Accession/Order#: [id number] Patient Location: 9W Date of : 1945 71 years 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 UTI. Study Detail: The following Echo studies were performed: 2D, M-Mode, Doppler and color flow. PHYSICIAN INTERPRETATION: Left Ventricle: The left ventricular systolic function is normal, with an estimated ejection fraction of 60-65%. The left ventricular chamber size is normal. The left ventricular cavity size is normal. The left ventricular septal wall thickness is normal. There is normal left ventricular posterior wall thickness. Spectral Doppler shows an impaired relaxation pattern of left ventriuclar filling. Left Atrium: The left atrium is normal in size. Right Ventricle: The right ventricle is normal in size. There is normal right ventricular global systolic function. Right Atrium: The right atrium is normal in size. Aortic Valve: The aortic valve is trileaflet. There is mild aortic valve regurgitation. The peak instantaneous gradient of the aortic valve is 10.8 mmHg. The mean gradient of the aortic valve is 5.9 mmHg. Mitral Valve: The mitral valve is normal in structure. There is no evidence of mitral valve regurgitation. Tricuspid Valve: The tricuspid valve is structurally normal. There is trace to mild tricuspid regurgitation. The doppler estimated RVSP is within normal limits at 33.7 mmHg. Pulmonic Valve: The pulmonic valve is not well visualized. The pulmonic valve regurgitation was not well visualized. Pericardium: There is no pericardial effusion noted. Aorta: The aortic room is normal. There is mild dilatation of the aortic arch. There is mild dilatation of the ascending aorta. The aortic root is at the upper limits of normal size. CONCLUSIONS: 1. The left ventricular systolic function is normal with a 60-65% estimated ejection fraction. 2. Spectral Doppler shows an impaired relaxation pattern of left ventriuclar filling. 3. There is a no pericardial effusion. 4. RVSP within normal limits. 5. There is mild aortic valve regurgitation. QUANTITATIVE DATA SUMMARY: 2D MEASUREMENTS: Normal Ranges: LAs: 3.79 cm (2.7-4.0cm) IVSd: 1.02 cm (0.6-1.1cm) LVPWd: 0.92 cm (0.6-1.1cm) LVIDd: 5.00 cm (3.9-5.9cm) LVIDs: 2.92 cm LV Mass Index: 91.2 g/m2 LV % FS 41.7 % LA VOLUME: Normal Ranges: LA Volume Index: 43.0 ml/m2 M-MODE MEASUREMENTS: Normal Ranges: Ao Root: 3.69 cm (2.0-3.7cm) LAs: 4.35 cm (2.7-4.0cm) LV DIASTOLIC FUNCTION: Normal Ranges: MV Peak E: 0.89 m/s (0.7-1.2 m/s) MV Peak A: 1.28 m/s (0.42-0.7 m/s) E/A Ratio: 0.69 (1.0-2.2) MV lateral e' 0.05 m/s MV medial e' 0.06 m/s MV A Dur: 159.17 msec PulmV Sys Solo: 51.07 cm/s PulmV Bonner Solo: 38.66 cm/s PulmV S/D Solo: 1.32 PulmV A Revs Solo: 32.15 cm/s PulmV A Revs Dur: 131.49 msec MITRAL VALVE: Normal Ranges: MV DT: 242 msec (150-240msec) AORTIC VALVE: Normal Ranges: AoV Vmax: 1.65 m/s (<1.7m/s) AoV Peak P.8 mmHg (<20mmHg) AoV Mean P.9 mmHg (1.7-11.5mmHg) LVOT Max Solo: 1.28 m/s (<1.1m/s) AoV VTI: 33.96 cm (18-25cm) LVOT VTI: 24.39 cm LVOT Diameter: 2.17 cm (1.8-2.4cm) AoV Area, VTI: 2.66 cm2 (2.5-5.5cm2) AoV Area,Vmax: 2.87 cm2 (2.5-4.5cm2) AoV Dimensionless Index: 0.72 AORTIC INSUFFICIENCY: AI Vmax: 4.28 m/s AI Half-time: 441 msec AI Decel Time: 1522 msec AI Decel Rate: 290.85 cm/s2 RIGHT VENTRICLE: RV 1 3.6 cm TRICUSPID VALVE/RVSP: Normal Ranges: Peak TR Velocity: 2.95 m/s RV Syst Pressure: 33.7 (< 30mmHg) PULMONIC VALVE: Normal Ranges: PV Max Solo: 1.1 m/s (0.6-0.9m/s) PV Max P.6 mmHg Pulmonary Veins: PulmV A Revs Dur: 131.49 msec PulmV A Revs Solo: 32.15 cm/s PulmV Bonner Solo: 38.66 cm/s PulmV S/D Solo: 1.32 PulmV Sys Solo: 51.07 cm/s DENICE De Los Santos MD Electronically signed on 05/06/2017 at 7:50:07 PM Wall Scoring Final Normal [facility] Neurology Progress Noteon Protein mass conc [facility] Patient: CARLINE VILLARREAL [address] MR#: [id number] [place], [place] [address] : 1945 OrdMarkos Draper: Dept: PDOC Loc: 3MED-ONC 340-1 Neurology Progress Note Service Dt: 05/06/17 Report#: [id number] Adm Dt: 05/04/17 Dis Dt: Neurology Progress Note - Patient Visit Reason Visit Reason: Acute R-MCA, UTI - Chief Complaint Chief Complaint: Left-sided weakness - Subjective Narrative HPI/ROS: The patient is a 71-year-old white female who was in her usual state of health until recently. The patient was found on the floor by her family but it is not known how long she was down. The patient stated that she fell due to weakness in her legs. The patient did complain of weakness in her left leg and also a headache that was not that severe. According to the family the patient was last known well 3 days prior to admission. Currently the patient is complaining of weakness of the left upper and left lower extremity. She also feels that she is having some numbness in the left side. The patient was taking aspirin on a daily basis. The patient had a CT scan of the brain in the ER that was negative for any acute process. The patient is more alert today as some of the medicines that she was taking were discontinued. She is also stronger on her left side. - Review of Systems Neurological: Reports: weakness, confusion. Denies: headache - I O/Vital Signs I O/VS: Intake/Output/Wt 05/03/17 05/04/17 05/05/17 05/06/17 23:59 23:59 23:59 23:59 Intake Total 680 2088.75 1200 Output Total 525 Balance 680 1563.75 1200 Weight 100 kg 100 kg Intake: Intake 50 1848.75 1050 Rocephin 1 GM In Iso- 50 50 Osmotic Dextrose 50 ml @ 100 mls/hr IVPB DAILY@ 0500 ELIZABETH Rx#:[id number] Rocephin 1 GM In Iso- 50 Osmotic Dextrose 50 ml @ 100 mls/hr IVPB STAT STA Rx#:[id number] Sodium Chloride 0.9% 1, 1798.75 1000 000 ML @ 75 mls/hr IV . [id number] ELIZABETH Rx#:[id number] Oral 630 240 150 Output: Urine 525 Void 525 Other: Height 1.5 m 1.5 m Incontinent Voided Amount Large Vital Signs (last 24 hrs) Temp Pulse Resp BP Pulse Ox 05/06/17 13:50 36.3 C L 87 18 148/90 H 97 05/06/17 10:00 74 05/06/17 08:37 98 H 118/83 05/06/17 06:00 36.7 C 98 H 20 118/83 98 05/05/17 22:00 36.3 C L 101 H 18 144/88 H 94 - Objective Narrative Patient Exam: The patient's mental status testing shows that the patient is alert and oriented ?3 with no evidence of any aphasia with the exception that the patient has a mild dysarthria. The patient's cranial nerve testing 2, 3, 4, 5, 6, and 7 are all within normal limits. The patient's motor testing shows normal tone, bulk and power in the right upper and lower extremities. The patient's left upper extremity strength is 4 minus over 5 in the left lower extremity strength is 4 minus over 5. - Lab Diagnostic Data Diagrams: 05/06/17 06:55 05/06/17 06:55 Labs: Hematology (last 24 hrs) 05/06/17 06:55 WBC 5.2 RBC 2.62 L Hgb 8.7 L Hct 27.0 L MCV 103.1 H MCH 33.2 MCHC 32.2 L RDW 13.6 Plt Count 211 MPV 10.5 H Immature Gran % (Auto) 0.2 Neut % (Auto) 72 Lymph % (Auto) 18 L [place] % (Auto) 6 Eos % (Auto) 4 H Baso % (Auto) 1 Nucleat RBC Rel Count 0.0 Immature Gran # (Auto) 0.0 Neut # (Auto) 3.7 Lymph # (Auto) 0.9 L [place] # (Auto) 0.3 Eos # (Auto) 0.2 Baso # (Auto) 0.0 L Chemistry (last 24 hrs) 05/06/17 06:55 Sodium 142 Potassium 4.1 Chloride 109 H Carbon Dioxide 24 Anion Gap 13.1 BUN 21 H Creatinine 0.9 Estim Creat Clear Calc 41 L Est GFR ( Amer) >60 Est GFR (Non-Af Amer) >60 Fasting Glucose 114 H Calcium 8.9 Diagnostic Data: The patient's CT angiogram of the neck and brain showed no significant stenosis. I did review the images of the CTA of the neck and brain. The patient's echocardiogram is pending. - Medications Meds: Current Medications Atorvastatin Calcium (Lipitor) 40 mg PO DAILY [facility] Last Admin: 05/06/17 08:38 Dose: 40 mg Clopidogrel Bisulfate (Plavix) 75 mg PO DAILY [facility] Last Admin: 05/06/17 08:38 Dose: 75 mg Enoxaparin Sodium (Lovenox) 40 mg SC DAILY [facility] Last Admin: 05/06/17 08:35 Dose: 40 mg Ferrous Sulfate (Feosol Tablet) 325 mg PO DAILY@0800 [facility] Last Admin: 05/06/17 09:48 Dose: 325 mg Ceftriaxone Sodium 1 gm/ (Dextrose) 50 mls @ 100 mls/hr IVPB DAILY@0500 [facility] Last Infusion: 05/06/17 07:15 Dose: Infused Lidocaine (Lidoderm 5% Patch) 1 patch EX DAILY [facility] Last Admin: 05/06/17 08:37 Dose: 1 patch Lisinopril (Zestril/Prinivil) 5 mg PO DAILY [facility] Last Admin: 05/06/17 08:37 Dose: 5 mg Melatonin (Melatonin) 3 mg PO QHS PRN PRN Reason: INSOMNIA Last Admin: 05/05/17 22:44 Dose: 3 mg Oxycodone/Acetaminophe n (Percocet) 1 tab PO Q6 PRN PRN Reason: Pain-severe (7-04/13) Last Admin: 05/06/17 08:35 Dose: 1 tab Allergies/Adv: Allergies Allergy/AdvReac Type Severity Reaction Status Date / Time No Known Allergies Allergy Verified 05/04/17 03:43 - Assessment/Plan (1) CVA (cerebral vascular accident) Status: Acute Current Visit: Yes Qualifiers: CVA mechanism: unspecified Qualified Code(s): I63.9 - Cerebral infarction, unspecified Plan: 05/05/17 18:34 The patient is slightly more alert and slightly stronger on her left side. I will check the results of the echocardiogram. The patient needs a CardioNet monitor as an outpatient. The patient should continue her Plavix and stroke risk factor modification. The patient needs to be on Lovenox for DVT prophylaxis. The patient will need a PT, OT, social service and rehabilitation consult. The patient needs to continue stroke risk factor modification. I believe that the patient will benefit from rehabilitation. Thank you very much for sending me this very interesting consultation. I discussed all these issues in detail with the patient and her son and answered all their questions. I will sign off for now. On discharge the patient will follow up with me in the office in 2 months as an outpatient. 05/05/17 18:37 05/05/17 18:38 05/06/17 17:50 Normal [facility] Progress Noteson 05-06-2017 Protein mass conc [facility] Patient: CARLINE VILLARREAL [address] [facility] MR#: [id number] [place], [place] [address] : 1945 Ord. : Dept: PDOC Loc: [address] [place] [address] 340-1 Physician Progress Note Service Dt: 05/06/17 Report#: [id number] Adm Dt: 05/04/17 Dis Dt: Note - Patient Note Observation: 05/06/17 16:37 Patient fully evaluated with resident team. 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 Plan for discharge to rehabilitation for her ECF depending on approval by insurance Normal [facility] Basic Metabolic Panel $$$on 05-05-2017 Anion gap 3 molar conc 16.3 mmol/L Normal P [facility] Comment on above: Performed By: #### C BC, BMP, PHOS, MG, CK, UR, LDLP, URINC ####[id number] [place] [address] Calcium mass conc 8.5 mg/dL Normal 8.5-10.1 [facility] Comment on above: Performed By: #### C BC, BMP, PHOS, MG, CK, UR, LDLP, URINC ####[id number] [place] [address] Chloride molar conc 110 mmol/L High 98-107 [facility] Comment on above: Performed By: #### C BC, BMP, PHOS, MG, CK, UR, LDLP, URINC ####[address] [address] CO2 molar conc 22 mmol/L Normal 21-32 [facility] Comment on above: Performed By: #### C BC, BMP, PHOS, MG, CK, UR, LDLP, URINC ####[facility] [place] [address] Creatinine mass conc 1.2 mg/dL Normal 0.6-1.3 [facility] Comment on above: Performed By: #### C BC, BMP, PHOS, MG, CK, UR, LDLP, URINC ####[facility] [place] [address] Estimated Creatinine Clearance 31 mL/min Low 75-115 [facility] Comment on above: Performed By: #### C BC, BMP, PHOS, MG, CK, UR, LDLP, URINC ####[facility] [place] [address] GFR () >60 Normal [facility] Comment on above: Performed By: #### C BC, BMP, PHOS, MG, CK, UR, LDLP, URINC ####[facility] [place] [address] GFR (Non ) >60 Normal [facility] Comment on above: Result Comment: eGFR Units of measure: mL/min/1.73 m 2 Performed By: #### C BC, BMP, PHOS, MG, CK, UR, LDLP, URINC ####[facility] [place] [address] Glucose mass conc 129 mg/dL High 74-106 [facility] Comment on above: Performed By: #### C BC, BMP, PHOS, MG, CK, UR, LDLP, URINC ####[facility] [place] [address] Potassium molar conc 4.3 mmol/L Normal 3.5-5.1 [facility] Comment on above: Performed By: #### C BC, BMP, PHOS, MG, CK, UR, LDLP, URINC ####[facility] [place] [address] Sodium molar conc 144 mmol/L Normal 136-145 [facility] Comment on above: Performed By: #### C BC, BMP, PHOS, MG, CK, UR, LDLP, URINC ####[facility] [place] [address] Urea nitrogen mass conc (Bld) 35 mg/dL High 7-18 [facility] Comment on above: Performed By: #### C BC, BMP, PHOS, MG, CK, UR, LDLP, URINC ####[facility] [place] [address] Brain Without Contraston Brain Without Contrast [facility] Patient: CARLINE VILLARREAL [address] [facility] MR#: [id number] [place], [place] [address] : 1945 Ord. : Ramírez Cage DO, Resident Dept: Diagnostic Imaging Loc: 9W 922-2 DI REPORT Service Dt:05/05/17 Report#: [id number] Adm Dt: 05/04/17 Dis Dt: Comments: STUDY: MR Brain Without Contrast; MR Head W/O Contrast; MR Neck W/O Contrast; 05/05/2017 11:00 am INDICATION: evaluate for possible stroke; evaluate for stroke. Left-sided weakness. COMPARISON: Head CT May 04, 2017 and prior MRI September 25, 2013 ACCESSION NUMBER(S): [id number]; [id number]; [id number] ORDERING CLINICIAN: Ramírez Cage TECHNIQUE: Axial T2, FLAIR, DWI and sagittal and coronal T1 weighted images of brain were acquired. Axial gradient echo T2 weighted images were also acquired. [id number]-kudhqe MRA of the head and neck was performed. The images were reviewed as source images and in multiplanar reformats and maximum intensity projections. FINDINGS: Brain: The images are degraded by patient motion. CSF Spaces: The ventricles, sulci and basal cisterns are within normal limits. Parenchyma: There are hyperintensities on diffusion-weighted imaging with corresponding diminished signal on the ADC map and increased signal on FLAIR and T2 weighted imaging within the right parietal and posterior frontal lobe. There is also involvement of the posterior right insula. There are nonspecific hyperintensities on FLAIR and T2 weighted imaging in the subcortical and periventricular white matter. Prominent perivascular spaces and/or small, remote lacunar infarcts of the basal ganglia and subinsular regions are demonstrated bilaterally. There is no mass effect or midline shift. Paranasal Sinuses and Mastoids: There is mucosal thickening within several ethmoid air cells with complete opacification of anterior ethmoid air cells on the left. There is material that is hyperintense on T1 weighted imaging suggesting hemorrhagic or proteinaceous content. There is also minimal mucosal thickening within the sphenoid and inferior frontal sinuses. The mastoid air cells are clear. MRA of head: The images are markedly degraded by patient motion. Anterior circulation: There are multifocal areas of irregularity and apparent narrowing of the intracranial internal carotid arteries, proximal ACAS, and proximal MCAs. However, there is marked patient motion artifact. Posterior circulation: There is asymmetric irregularity and narrowing of the distal intracranial left vertebral artery. There is also irregularity and at least mild narrowing of the proximal to mid basilar artery. There are multifocal areas of irregularity and apparent stenosis of the bilateral posterior cerebral arteries most significantly involving the P2 segment on the left and the P2/P3 segments on the right. MRA of neck: The images are degraded by artifact and patient motion. Right carotid vessels: There is expected flow signal in the visualized portion of the common carotid artery. There is mild attenuation of flow signal at the carotid bifurcation which may be secondary to flow related artifact. There is significant tortuosity of the proximal to mid internal carotid artery. There are regions of apparent narrowing in the area of tortuosity and is difficult to determine with certainty to what extent they are related to artifact versus atherosclerotic involvement versus true stenosis. Left carotid vessels: There is expected flow signal in the visualized portion of the common carotid artery. There is mild attenuation of flow signal at the carotid bifurcation which may be secondary to flow related artifact. The internal carotid artery in the neck demonstrates expected flow signal. There is no measurable stenosis. Vertebral vessels: Attenuation of flow related signal and areas of apparent narrowing along the distal cervical vertebral arteries occurring in regions where the vessels are horizontally positioned and are thought to largely be due to artifact. Otherwise, the cervical segments of the vertebral arteries are patent. IMPRESSION: MRI Brain: 1. Findings compatible with areas of acute to early subacute ischemic injury involving the right MCA distribution. 2. Nonspecific subcortical and periventricular white matter changes may represent small-vessel ischemic disease in a patient of this age. MRA: 1. Limited evaluation of the cervical and intracranial vasculature due to patient motion artifact. 2. There are multifocal areas of irregularity and apparent stenosis of the anterior and posterior circulation. Please note this is likely accentuated by patient motion artifact. A repeat examination may be of benefit when the patient is better able to cooperate with imaging. 3. Significant tortuosity of the proximal to mid cervical left ICA with areas of apparent narrowing and attenuation of flow related signal thought to largely be related to flow artifact. However, superimposed stenosis cannot be excluded. An [place] alert message was sent to the referring physician Dr. Ramírez Cage through the PACS support/Notifi system at 11:42 am on 05/05/[address]Jennifer Pearl Dictated by: Nela Pearl Electronically Signed by: Nela Pearl 05/05/2017 11:41 AM Normal [facility] Carotid Duplex Scanon 2016 Carotid Duplex Scan [facility] , [address] [place] [address] and Vascular Lab Report Carotid Artery Duplex Ultrasound Patient Name: CARLINE VILLARREAL Study Date: 05/05/2017 Reading Physician: HAIDER Kaiser MD MRN/PID: [id number] Referring Physician: [id number] Lorenzo Mohamud Accession/Order#: [id number] PCP: Grant Colon Date of : 1945 CC Report to: Gender: F Technologist: Kacey Be Admission Status: Inpatient Technologist 2: Facility Performed: [facility] Location Performed: [facility] Diagnosis/ICD: 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 Procedure/CPT: 34897 - Cerebrovacular Carotid Duplex scan complete CONCLUSIONS: Right Carotid: Findings are consistent with less than 50% stenosis of the right ICA. Right external carotid artery appears patent with no evidence of stenosis. The right vertebral artery is patent with antegrade flow. No evidence of hemodynamically significant stenosis in the right subclavian. Left Carotid: Findings are consistent with less than 50% stenosis of the left ICA. Left external carotid artery appears patent with no evidence of stenosis. The left vertebral artery is patent with antegrade flow. No evidence of hemodynamically significant stenosis in the left subclavian. Right Plaque Morph: The proximal right internal carotid artery demonstrates calcified plaque. Left Plaque Morph: The proximal left internal carotid artery demonstrates calcified plaque. Right Left PSV EDV PSV EDV 96 cm/s 26 cm/s CCA P 100 cm/s 33 cm/s 83 cm/s 28 cm/s CCA D 98 cm/s 21 cm/s 100 cm/s 42 cm/s ICA P 94 cm/s 33 cm/s 91 cm/s 33 cm/s ICA D 80 cm/s 44 cm/s 115 cm/s ECA 96 cm/s 55 cm/s Vertebral 45 cm/s 137 cm/s Subclavian 145 cm/s Right Left ICA/CCA Ratio 1.2 1.0 HAIDER Kaiser MD Final Normal [facility] Complete Blood Count w/diff $$on 05-05-2017 Basophils Auto #/vol (Bld) 0.0 10 /uL Low 0.04-0.9 [facility] Comment on above: Performed By: #### C BC, BMP, PHOS, MG, CK, UR, LDLP, URINC ####[facility] [place] [address] Basophils/100 WBC Auto (Bld) 0 % Normal 0-1 [facility] Comment on above: Performed By: #### C BC, BMP, PHOS, MG, CK, UR, LDLP, URINC ####[facility] [place], [place] [id number] Eosinophils Auto #/vol (Bld) 0.2 10 3/uL Normal 0.03-0.6 [facility] Comment on above: Performed By: #### C BC, BMP, PHOS, MG, CK, UR, LDLP, URINC ####[place] [address] Eosinophils/100 WBC Auto (Bld) 2 % Normal 0-3 [facility] Comment on above: Performed By: #### C BC, BMP, PHOS, MG, CK, UR, LDLP, URINC ####[place] [address] Erythrocyte distribution width Auto Ratio (RBC) 13.7 % Normal 11.5-14.5 [facility] Comment on above: Performed By: #### C BC, BMP, PHOS, MG, CK, UR, LDLP, URINC ####[place] [address] Hematocrit Auto Volume Fraction (Bld) 24.7 % Low 35-47 [facility] Comment on above: Performed By: #### C BC, BMP, PHOS, MG, CK, UR, LDLP, URINC ####[place] [address] Hemoglobin mass conc (Bld) 8.0 g/dL Low 12.0-16.0 [facility] Comment on above: Performed By: #### C BC, BMP, PHOS, MG, CK, UR, LDLP, URINC ####[place] [address] Immature Gran# (Auto) 0.0 10 3/uL Normal [facility] Comment on above: Performed By: #### C BC, BMP, PHOS, MG, CK, UR, LDLP, URINC ####[place] [id number] Immature granulocytes #/vol (Bld) 0.3 % Normal 0.0-0.9 [facility] Comment on above: Performed By: #### C BC, BMP, PHOS, MG, CK, UR, LDLP, URINC ####[address] [address] Lymphocytes Auto #/vol (Bld) 0.8 10 3/uL Low 1-3.5 [facility] Comment on above: Performed By: #### C BC, BMP, PHOS, MG, CK, UR, LDLP, URINC ####[address] [address] Lymphocytes/100 WBC Auto (Bld) 13 % Low 24-44 [facility] Comment on above: Performed By: #### C BC, BMP, PHOS, MG, CK, UR, LDLP, URINC ####[address] [address] MCH Auto Entitic mass (RBC) 32.4 g/dL Low 33-37 [facility] Comment on above: Performed By: #### C BC, BMP, PHOS, MG, CK, UR, LDLP, URINC ####[address] [address] MCH Auto Entitic mass (RBC) 33.6 pg Normal 27-34 [facility] Comment on above: Performed By: #### C BC, BMP, PHOS, MG, CK, UR, LDLP, URINC ####[address] [address] MCV Auto Entitic volume (RBC) 103.8 fL High 80-100 [facility] Comment on above: Performed By: #### C BC, BMP, PHOS, MG, CK, UR, LDLP, URINC ####[address] [address] Monocytes Auto #/vol (Bld) 0.4 10 3/uL Normal 0.04-0.9 [facility] Comment on above: Performed By: #### C BC, BMP, PHOS, MG, CK, UR, LDLP, URINC ####[facility] [place] [address] Monocytes/100 WBC Auto (Bld) 7 % Normal 1-8 [facility] Comment on above: Performed By: #### C BC, BMP, PHOS, MG, CK, UR, LDLP, URINC ####[facility] [place] [address] Neutrophils Auto #/vol (Bld) 4.8 10 3/uL Normal 1.8-7.0 [facility] Comment on above: Performed By: #### C BC, BMP, PHOS, MG, CK, UR, LDLP, URINC ####[facility] [place] [address] Neutrophils/100 WBC Auto (Bld) 77 % High 42-76 [facility] Comment on above: Performed By: #### C BC, BMP, PHOS, MG, CK, UR, LDLP, URINC ####[facility] [place] [address] Nucleated RBC/100 WBC Ratio (Bld) 0.0 % Normal 0.0-0.0 [facility] Comment on above: Performed By: #### C BC, BMP, PHOS, MG, CK, UR, LDLP, URINC ####[address] [address] Platelet mean volume Auto Entitic volume (Bld) 10.6 fL High 7.4-10.4 [facility] Comment on above: Performed By: #### C BC, BMP, PHOS, MG, CK, UR, LDLP, URINC ####[address] [address] Platelets Auto #/vol (Bld) 203 10 3/uL Normal 150-400 [facility] Comment on above: Performed By: #### C BC, BMP, PHOS, MG, CK, UR, LDLP, URINC ####[facility] [place] [address] RBC Auto #/vol (Bld) 2.38 10 6/uL Low 4.2-5.4 [facility] Comment on above: Performed By: #### C BC, BMP, PHOS, MG, CK, UR, LDLP, URINC ####[facility] [place] [address] WBC Auto #/vol (Bld) 6.2 10 3/uL Normal 4.0-11.0 [facility] Comment on above: Performed By: #### C BC, BMP, PHOS, MG, CK, UR, LDLP, URINC ####[facility] [place] [address] Consultation Reporton [id number] Consultation Report [facility] Patient: CARLINE VILLARREAL [address] [facility] MR#: [id number] [place], [place] [address] : 1945 Ord. : Dept: PDOC Loc: 9W 922-2 Consultation Service Dt: 05/05/17 Report#: [id number] Adm Dt: 05/04/17 Dis Dt: Initial Physician Consultation - Consulting Specialty Consulting Specialty: Neurology - Consultation Date of Consultation: 05/05/17 Requesting Physician: Grant Henderson Reason for Consult: Left-sided weakness - PCP/Chief Complaint Primary Care Physician: Grant Colon Chief Complaint: Left-sided weakness - History of Present Illness HPI: The patient is a 71-year-old white female who was in her usual state of health until recently. The patient was found on the floor by her family but it is not known how long she was down. The patient stated that she fell due to weakness in her legs. The patient did complain of weakness in her left leg and also a headache that was not that severe. According to the family the patient was last known well 3 days prior to admission. Currently the patient is complaining of weakness of the left upper and left lower extremity. She also feels that she is having some numbness in the left side. The patient was taking aspirin on a daily basis. The patient had a CT scan of the brain in the ER that was negative for any acute process. - Past Medical History Neurological: Migraine Headache Other Neurological Hx: per sister, is forgetful ENT/Eye: Cataract(s) Cardiac: High Cholesterol, HTN GI: GERD Other GI HX: UMBILICAL HERNIA, APPENDECTOMY , Female: Tubal Ligation Musculoskeletal: Arthritis, Joint replacement, Knee replacement, left, Knee replacement, right Other Musculoskelatal Hx: BILATERAL ROTATOR CUFF REPLACEMENTS Integumentary: Psoriasis - Social History Smoking Status: Never smoker Does Patient Dip or Chew Tobacco: No Alcohol Use: No Use of Substances/Recreationa l Drugs: No - Family Health History Father Family Member Hx: Unknown Mother Family Member Hx: Unknown - Allergies Allergies/Adverse Reactions: Allergies No Known Allergies Allergy (Verified 05/04/17 03:43) - Medications Home Medications: Aspirin [Aspirin, Baby (CHEWABLE)] 81 mg PO DAILY 09/24/13 [History Last Taken 05/03/17] Lorazepam [Ativan] 2 mg PO TID PRN #0 tab 09/27/13 [Rx Last Taken 05/03/17 22:00] Zolpidem Tartrate [Ambien] 10 mg PO QHS #0 tab 09/27/13 [Rx Last Taken 05/03/17 22:00 10] oxyCODONE/ACETAM. 5MG/325MG [Percocet 325 mg-5 mg] 1 tab PO Q6 PRN #0 tab 09/27/13 [Rx Last Taken Unknown] Non-Formulary Medication [Non-Formulary Drug] 1 each PO DAILY 05/04/17 [History Last Taken Unknown] Current Medications: Current Medications Atorvastatin Calcium (Lipitor) 40 mg PO DAILY [facility] Clopidogrel Bisulfate (Plavix) 75 mg PO DAILY [facility] Haloperidol (Haldol) 1 mg PO Q8 PRN PRN Reason: AGITATION Last Admin: 05/05/17 13:08 Dose: 1 mg Ceftriaxone Sodium 1 gm/ (Dextrose) 50 mls @ 100 mls/hr IVPB DAILY@0500 [facility] Last Infusion: 05/05/17 06:17 Dose: Infused Lidocaine (Lidoderm 5% Patch) 1 patch EX DAILY [facility] Last Admin: 05/05/17 13:08 Dose: 1 patch Lisinopril (Zestril/Prinivil) 5 mg PO DAILY [facility] Last Admin: 05/05/17 08:48 Dose: 5 mg Lorazepam (Ativan) 2 mg PO Q8 PRN PRN Reason: Anxiety Last Admin: 05/05/17 05:36 Dose: 2 mg Melatonin (Melatonin) 3 mg PO QHS PRN PRN Reason: INSOMNIA Last Admin: 05/04/17 21:19 Dose: 3 mg Oxycodone/Acetaminophe n (Percocet) 1 tab PO Q6 PRN PRN Reason: Pain-severe () Last Admin: 05/05/17 17:05 Dose: 1 tab - Diagnostic Studies Lab Data: Labs (last 24 hrs) 05/05/17 05/05/17 05/05/17 Unknown 06:25 06:00 WBC 6.2 RBC 2.38 L Hgb 8.0 L D Hct 24.7 L MCV 103.8 H MCH 33.6 MCHC 32.4 L RDW 13.7 Plt Count 203 D MPV 10.6 H Immature Gran % (Auto) 0.3 Neut % (Auto) 77 H Lymph % (Auto) 13 L [place] % (Auto) 7 Eos % (Auto) 2 Baso % (Auto) 0 Nucleat RBC Rel Count 0.0 Immature Gran # (Auto) 0.0 Neut # (Auto) 4.8 Lymph # (Auto) 0.8 L [place] # (Auto) 0.4 Eos # (Auto) 0.2 Baso # (Auto) 0.0 L Retic Count (auto) 5.6 H Haptoglobin 46 Sodium 144 Potassium 4.3 Chloride 110 H Carbon Dioxide 22 Anion Gap 16.3 BUN 35 H D Creatinine 1.2 Estim Creat Clear Calc 31 L Est GFR ( Amer) >60 Est GFR (Non-Af Amer) >60 Fasting Glucose 129 H Calcium 8.5 Iron Cancelled 46 L TIBC Cancelled 280 % Saturation Cancelled 16 Ferritin Cancelled 60.2 Lactate Dehydrogenase Cancelled Vitamin B12 Cancelled 403 Serum Folate Cancelled 42.3 H Microbiology (entire visit) 05/04/17 04:30 Urine - Clean Catch/Voided Urine Culture - Preliminary Echo: The patient's echocardiogram is pending. Radiology: The patient's MRI of the brain shows an acute deep right hemispheric stroke. I did review the images of the MRI of the brain. No significant stenosis was noted on the MRA of the brain or neck but there is a significant amount of artifact noted. I did review the images of the MRA of the brain and neck. - Review of Systems All systems: 10 point review of systems negative except for what is stated in HPI - I O/Vital Signs I O/VS: Intake/Output/Wt 05/02/17 05/03/17 05/04/17 05/05/17 23:59 23:59 23:59 23:59 Intake Total 680 2088.75 Balance 680 2088.75 Weight 100 kg Intake: Intake 50 1848.75 Rocephin 1 GM In Iso- 50 Osmotic Dextrose 50 ml @ 100 mls/hr IVPB DAILY@ 0500 [facility] Rx#:[id number] Rocephin 1 GM In Iso- 50 Osmotic Dextrose 50 ml @ 100 mls/hr IVPB STAT [facility] Rx#:[id number] Sodium Chloride 0.9% 1, 1798.75 000 ML @ 75 mls/hr IV . [id number] [facility] Rx#:[id number] Oral 630 240 Other: Height 1.5 m Vital Signs (last 24 hrs) Temp Pulse Resp BP Pulse Ox 05/05/17 17:18 37.2 C 80 18 154/90 H 97 05/05/17 14:00 36.5 C 87 20 129/83 98 05/05/17 10:00 36.4 C L 91 H 20 124/73 97 05/05/17 08:48 106 H 139/62 05/05/17 06:00 36.8 C 106 H 20 139/62 98 05/05/17 01:40 36.9 C 101 H 18 107/73 98 05/04/17 22:00 37.0 C 101 H 20 134/62 97 Oxygen: Oxygen O2 Sat by Pulse Oximetry 97 Oxygen Delivery Method Room Air - Objective Narrative Patient Exam: The patient is a well developed, [moderately obese] [white female] in no acute distress. The patient's funduscopic examination shows no papilledema bilaterally. The patient's extremity examination shows that the pulses are 2+ in the upper and lower extremities bilaterally and there is no edema in the lower extremities bilaterally. The patient's mental status testing is alert and oriented ?3 with no evidence of aphasia but she has a mild dysarthria. The patient's memory testing, fund of knowledge and concentration are all within normal limits. The patient's cranial nerves 2, 3, 4, 5, 6, 7, 8, 9, 10, 11 and 12 are all within normal limits. The patient's motor testing shows normal tone, bulk, and power in the right upper and lower extremities. The patient's left upper extremity strength was 3 minus over 5 in the left lower extremity strength was 3 minus over 5. The patient's sensory testing is intact to light touch in the upper and lower extremities bilaterally. The patient's cerebellar testing is intact in the upper and lower extremities bilaterally. The patient's station and gait were not tested as she cannot stand. The patient's reflexes are 1+ in the upper and lower extremities and symmetrical. - Assessment and Plan (1) CVA (cerebral vascular accident) Status: Acute Current Visit: Yes Qualifiers: CVA mechanism: unspecified Qualified Code(s): I63.9 - Cerebral infarction, unspecified Plan: 05/05/17 18:34 Impression: The patient is a 71-year-old white female with a history of multiple stroke risk factors who suffered the acute onset of a right hemispheric stroke. Her neurological examination is abnormal and noted above. The differential diagnosis for stroke includes intra-or extracranial atherosclerotic disease, small vessel stroke or a cardiac source for embolism. Plan: The patient needs a CT angiogram of the neck and brain. We will check the results of the echocardiogram. The patient needs a CardioNet monitor as an outpatient. The patient has failed aspirin and we will discontinue the aspirin and put her on Plavix at 75 mg a day. The patient needs to be on Lovenox for DVT prophylaxis. The patient will need a PT, OT, social service and rehabilitation consult. The patient needs to continue stroke risk factor modification. I believe that the patient will benefit from rehabilitation. I will send a note to Dr. Grant Henderson. Thank you very much for sending me this very interesting consultation. I discussed all these issues in detail with the patient and answered all of her questions. I will continue to follow the patient while she is in hospital. On discharge the patient will follow up with me in the office in 2 months as an outpatient. 05/05/17 18:37 05/05/17 18:38 Normal [facility] Ferritinon 05-05-2017 Ferritin Pending Normal 8.0-252.0 [facility] Comment on above: Order Comment: Add o n to today's blood, if available? YAdd on to today's blood, if available? YAdd on to today's blood, if available? YAdd on to today's blood, if available? YAdd on to today's blood, if available? Y Performed By: #### C BC, BMP, PHOS, MG, CK, UR, LDLP, URINC ####[address] [id number] Ferritin 60.2 ng/mL Normal 8.0-252.0 [facility] Comment on above: Performed By: #### C BC, BMP, PHOS, MG, CK, UR, LDLP, URINC ####[address] [id number] Folateon 05-05-2017 Folate Pending Normal 3.1-17.5 [facility] Comment on above: Order Comment: Add o n to today's blood, if available? YAdd on to today's blood, if available? YAdd on to today's blood, if available? YAdd on to today's blood, if available? YAdd on to today's blood, if available? Y Performed By: #### C BC, BMP, PHOS, MG, CK, UR, LDLP, URINC ####[address] [id number] Folate 42.3 ng/mL High 3.1-17.5 [facility] Comment on above: Performed By: #### C BC, BMP, PHOS, MG, CK, UR, LDLP, URINC ####[address] [id number] General Medical Progress Not dominik 05-05-2017 Protein mass [facility] Patient: CARLINE VILLARREAL [address] [facility] MR#: [id number] [place], [place] [address] : 1945 OrdaMrkos Draper: Dept: PDOC Loc: 9W 922-2 General Medical Progress Note Service Dt: 05/05/17 Report#: [id number] Adm Dt: 05/04/17 Dis Dt: General-Medical Progress Note - Patient Visit Reason Visit Reason: weakness - Subjective Narrative HPI/ROS: Patient was seen and fully evaluated. Per nursing staff, patient was quite agitated and moving around this morning and subsequently received 2x ativan. She appeared to be more calm yet still agitated on my visit. Appears to be sundowning. Low dose haldol PRN has been initiated. Patient a o x 3 but seems to be not making sense at times. - Review of Systems Constitutional: Denies: chills, fever Respiratory: Denies: cough, shortness of breath Cardiovascular: Denies: chest pain, palpitations Gastrointestinal: Denies: abdominal pain, nausea, vomiting Neurological: Reports: weakness, numbness. Denies: headache, lightheadedness - I O/Vital Signs I O/VS: Vital Signs Temp 36.4 C L 05/05/17 10:00 Pulse 91 H 05/05/17 10:00 Resp 20 05/05/17 10:00 BP 124/73 05/05/17 10:00 Pulse Ox 97 05/05/17 10:00 Intake Output 05/04/17 05/05/17 05/05/17 23:59 11:59 23:59 Intake Total 390 1170 Balance 390 1170 Intake: Intake 1050 Rocephin 1 GM In Iso- 50 Osmotic Dextrose 50 ml @ 100 mls/hr IVPB DAILY@ 0500 [facility] Rx#:[id number] Sodium Chloride 0.9% 1, 1000 000 ML @ 75 mls/hr IV . [id number] [facility] Rx#:[id number] Oral 390 120 - Patient Exam General appearance: lethargic, obese Head: Positive: atraumatic Eyes: Positive: EOMI Neck: Positive: trachea midline, supple, no JVD Respiratory: Positive: normal lung sounds bilaterally Cardiovascular: Positive: normal rhythm, tachycardia, +S1, +S2. Negative: rubs, gallop, clicks, +S3, +S4 GI/Abdominal: Positive: soft, nontender, nondistended. Negative: guarding, rebound, rigidity Extremities: Positive: no edema, no cellulitis, bilateral pulses positive Neurological: Positive: alert, oriented X3, other (no slurred speech, no facial droop noted, muscle strength 2/5 on L upper and 3/5 on L lower extremities, sensory intact to light touch) Integumentary: Positive: warm, dry, intact - Lab Diagnostic Data Diagrams: 05/05/17 06:25 05/05/17 06:25 Chemistry: Chemistry (Last 24hrs) 05/05/17 05/05/17 Unknown 06:25 Sodium 144 Potassium 4.3 Chloride 110 H Carbon Dioxide 22 Anion Gap 16.3 BUN 35 H D Creatinine 1.2 Estim Creat Clear Calc 31 L Est GFR ( Amer) >60 Est GFR (Non-Af Amer) >60 Fasting Glucose 129 H Calcium 8.5 Iron Cancelled 46 L TIBC Cancelled 280 % Saturation Cancelled 16 Ferritin Cancelled 60.2 Lactate Dehydrogenase Cancelled Vitamin B12 Cancelled 403 Serum Folate Cancelled 42.3 H - Medications Meds: Current Medications Aspirin (Aspirin, Baby (Chewable)) 81 mg PO DAILY [facility] Last Admin: 05/05/17 08:49 Dose: 81 mg Atorvastatin Calcium (Lipitor) 80 mg PO DAILY [facility] Last Admin: 05/05/17 08:49 Dose: 80 mg Haloperidol (Haldol) 1 mg PO Q8 PRN PRN Reason: AGITATION Ceftriaxone Sodium 1 gm/ (Dextrose) 50 mls @ 100 mls/hr IVPB DAILY@0500 [facility] Last Infusion: 05/05/17 06:17 Dose: Infused Sodium Chloride (Sodium Chloride 0.9%) 1,000 mls @ 75 mls/hr IV .[id number] [facility] Last Admin: 05/05/17 02:29 Dose: 75 mls/hr Lidocaine (Lidoderm 5% Patch) 1 patch EX DAILY [facility] Lisinopril (Zestril/Prinivil) 5 mg PO DAILY [facility] Last Admin: 05/05/17 08:48 Dose: 5 mg Lorazepam (Ativan) 2 mg PO Q8 PRN PRN Reason: Anxiety Last Admin: 05/05/17 05:36 Dose: 2 mg Melatonin (Melatonin) 3 mg PO QHS PRN PRN Reason: INSOMNIA Last Admin: 05/04/17 21:19 Dose: 3 mg Oxycodone/Acetaminophe n (Percocet) 1 tab PO Q6 PRN PRN Reason: Pain-severe (-04/13) Last Admin: 05/05/17 08:49 Dose: 1 tab Allergies/Adv: Allergies Allergy/AdvReac Type Severity Reaction Status Date / Time No Known Allergies Allergy Verified 05/04/17 03:43 - Restraints Patient in Restraints: No - Assessment/Plan (1) CVA (cerebral vascular accident) Status: Acute Current Visit: Yes Qualifiers: CVA mechanism: unspecified Qualified Code(s): I63.9 - Cerebral infarction, unspecified Plan: 05/05/17 12:57 Patient continues to demonstrate significant LUE and LLE weakness MRI brain findings consistent with acute to early subacute ischemic injury in the R MCA distribution MRA head neck results are essentially inconclusive due to motion artifact but significant tortuosity of the proximal to mid cervical left ICA is noted - carotid duplex pending - ECHO pending - neurology c/s placed, appreciate rec - continue lipitor at current dose - patient's home dosed aspirin 81mg, up-titrated to 325 mg daily, may need to switch to plavix in the setting of aspirin resistance, awaiting recommendation from neurology - orthostatics vital signs (2) EDWIGE (acute kidney injury) Status: Resolved Current Visit: Yes Plan: 05/05/17 12:55 Resolved Cr 1.2, back to baseline Likely secondary to pre-renal - continue IVF at 75 cc/hr for now due to ? ability to swallow in the setting of acute CVA - will likely discontinue if patient is cleared by ST and demonstrates adequate oral intake (3) UTI (urinary tract infection) Status: Acute Current Visit: Yes Qualifiers: Urinary tract infection type: acute cystitis Hematuria presence: with hematuria Qualified Code(s): N30.01 - Acute cystitis with hematuria Plan: 05/05/17 12:54 Urine culture prelim positive for enteric bacilli - continue rocephin day 2 - await final urine culture abx sensitivities, adjust med as needed (4) HTN (hypertension) Status: Chronic Current Visit: Yes Qualifiers: Hypertension type: essential hypertension Qualified Code(s): I10 - Essential (primary) hypertension Plan: 05/05/17 12:54 Blood pressure controlled - continue lisinopril at current dose for now (5) DVT prophylaxis Status: Acute Current Visit: Yes Plan: 05/05/17 12:53 - SCDs bilaterally Normal [facility] Haptoglobinon 05-05-2017 Haptoglobin 46 mg/dL Normal 30-200 [facility] Comment on above: Result Comment: Perf orming Site: [facility] - [address] [place], [place] Performed By: #### C BC, BMP, PHOS, MG, CK, UR, LDLP, URINC ####[facility] [place], [place] [id number] Head W/O Contraston 05-05-20 Head W/O Contrast [facility] Patient: CARLINE VILLARREAL [address] [facility] MR#: [id number] [place], [place] [address] : 1945 Ord. .: Ramírez Cage DO, Resident Dept: Diagnostic Imaging Loc: 922-2 DI REPORT Service Dt:05/05/17 Report#: [id number] Adm Dt: 05/04/17 Dis Dt: Comments: STUDY: MR Brain Without Contrast; MR Head W/O Contrast; MR Neck W/O Contrast; 05/05/2017 11:00 am INDICATION: evaluate for possible stroke; evaluate for stroke. Left-sided weakness. COMPARISON: Head CT May 04, 2017 and prior MRI September 25, 2013 ACCESSION NUMBER(S): [id number]; [id number]; [id number] ORDERING CLINICIAN: Ramírez Cage TECHNIQUE: Axial T2, FLAIR, DWI and sagittal and coronal T1 weighted images of brain were acquired. Axial gradient echo T2 weighted images were also acquired. [id number] MRA of the head and neck was performed. The images were reviewed as source images and in multiplanar reformats and maximum intensity projections. FINDINGS: Brain: The images are degraded by patient motion. CSF Spaces: The ventricles, sulci and basal cisterns are within normal limits. Parenchyma: There are hyperintensities on diffusion-weighted imaging with corresponding diminished signal on the ADC map and increased signal on FLAIR and T2 weighted imaging within the right parietal and posterior frontal lobe. There is also involvement of the posterior right insula. There are nonspecific hyperintensities on FLAIR and T2 weighted imaging in the subcortical and periventricular white matter. Prominent perivascular spaces and/or small, remote lacunar infarcts of the basal ganglia and subinsular regions are demonstrated bilaterally. There is no mass effect or midline shift. Paranasal Sinuses and Mastoids: There is mucosal thickening within several ethmoid air cells with complete opacification of anterior ethmoid air cells on the left. There is material that is hyperintense on T1 weighted imaging suggesting hemorrhagic or proteinaceous content. There is also minimal mucosal thickening within the sphenoid and inferior frontal sinuses. The mastoid air cells are clear. MRA of head: The images are markedly degraded by patient motion. Anterior circulation: There are multifocal areas of irregularity and apparent narrowing of the intracranial internal carotid arteries, proximal ACAS, and proximal MCAs. However, there is marked patient motion artifact. Posterior circulation: There is asymmetric irregularity and narrowing of the distal intracranial left vertebral artery. There is also irregularity and at least mild narrowing of the proximal to mid basilar artery. There are multifocal areas of irregularity and apparent stenosis of the bilateral posterior cerebral arteries most significantly involving the P2 segment on the left and the P2/P3 segments on the right. MRA of neck: The images are degraded by artifact and patient motion. Right carotid vessels: There is expected flow signal in the visualized portion of the common carotid artery. There is mild attenuation of flow signal at the carotid bifurcation which may be secondary to flow related artifact. There is significant tortuosity of the proximal to mid internal carotid artery. There are regions of apparent narrowing in the area of tortuosity and is difficult to determine with certainty to what extent they are related to artifact versus atherosclerotic involvement versus true stenosis. Left carotid vessels: There is expected flow signal in the visualized portion of the common carotid artery. There is mild attenuation of flow signal at the carotid bifurcation which may be secondary to flow related artifact. The internal carotid artery in the neck demonstrates expected flow signal. There is no measurable stenosis. Vertebral vessels: Attenuation of flow related signal and areas of apparent narrowing along the distal cervical vertebral arteries occurring in regions where the vessels are horizontally positioned and are thought to largely be due to artifact. Otherwise, the cervical segments of the vertebral arteries are patent. IMPRESSION: MRI Brain: 1. Findings compatible with areas of acute to early subacute ischemic injury involving the right MCA distribution. 2. Nonspecific subcortical and periventricular white matter changes may represent small-vessel ischemic disease in a patient of this age. MRA: 1. Limited evaluation of the cervical and intracranial vasculature due to patient motion artifact. 2. There are multifocal areas of irregularity and apparent stenosis of the anterior and posterior circulation. Please note this is likely accentuated by patient motion artifact. A repeat examination may be of benefit when the patient is better able to cooperate with imaging. 3. Significant tortuosity of the proximal to mid cervical left ICA with areas of apparent narrowing and attenuation of flow related signal thought to largely be related to flow artifact. However, superimposed stenosis cannot be excluded. An [place] alert message was sent to the referring physician Dr. Ramírez Cage through the PACS support/Notifi system at 11:42 am on 05/05/[address]Jennifer Pearl Dictated by: Nela Pearl Electronically Signed by: Nela Pearl 05/05/2017 11:41 AM [facility] [facility] Iron Profileon 05-05-2017 % Iron Saturation Pending Normal 16-35 [facility] Comment on above: Order Comment: Add o n to today's blood, if available? YAdd on to today's blood, if available? YAdd on to today's blood, if available? YAdd on to today's blood, if available? YAdd on to today's blood, if available? Y Performed By: #### C BC, BMP, PHOS, MG, CK, UR, LDLP, URINC ####[facility] [place] [address] Iron mass conc Pending Normal 50-170 [facility] Comment on above: Order Comment: Add o n to today's blood, if available? YAdd on to today's blood, if available? YAdd on to today's blood, if available? YAdd on to today's blood, if available? YAdd on to today's blood, if available? Y Performed By: #### C BC, BMP, PHOS, MG, CK, UR, LDLP, URINC ####[facility] [place] [address] Total Iron Binding Capacity Pending Normal 250-450 [facility] Comment on above: Order Comment: Add o n to today's blood, if available? YAdd on to today's blood, if available? YAdd on to today's blood, if available? YAdd on to today's blood, if available? YAdd on to today's blood, if available? Y Performed By: #### C BC, BMP, PHOS, MG, CK, UR, LDLP, URINC ####[address] [address] % Iron Saturation 16 % Normal 16-35 [facility] Comment on above: Performed By: #### C BC, BMP, PHOS, MG, CK, UR, LDLP, URINC ####[address] [address] Iron mass conc 46 ug/dL Low 50-170 [facility] Comment on above: Performed By: #### C BC, BMP, PHOS, MG, CK, UR, LDLP, URINC ####[address] [address] Total Iron Binding Capacity 280 ug/dL Normal 250-450 [facility] Comment on above: Performed By: #### C BC, BMP, PHOS, MG, CK, UR, LDLP, URINC ####[address] [address] Lactate Dehydrogenase (LDH)o n 05-05-2017 LDH enzyme act/vol Pending Normal 84-246 [facility] Comment on above: Order Comment: Add o n to today's blood, if available? YAdd on to today's blood, if available? YAdd on to today's blood, if available? YAdd on to today's blood, if available? YAdd on to today's blood, if available? Y Performed By: #### C BC, BMP, PHOS, MG, CK, UR, LDLP, URINC ####[address] [address] Neck W/O Contraston 05-05-20 17 Neck W/O Contrast [facility] Patient: CARLINE VILLARREAL [address] MR#: [id number] [place], [place] [address] : 1945 [facility]#: [id number] Ord. .: Ramírez Cage DO, Resident Dept: Diagnostic Imaging Loc: 9 922-2 DI REPORT Service Dt:05/05/17 Report#: [id number] Adm Dt: 05/04/17 Dis Dt: Comments: STUDY: MR Brain Without Contrast; MR Head W/O Contrast; MR Neck W/O Contrast; 05/05/2017 11:00 am INDICATION: evaluate for possible stroke; evaluate for stroke. Left-sided weakness. COMPARISON: Head CT May 04, 2017 and prior MRI September 25, 2013 ACCESSION NUMBER(S): [id number]; [id number]; [id number] ORDERING CLINICIAN: Ramírez Cage TECHNIQUE: Axial T2, FLAIR, DWI and sagittal and coronal T1 weighted images of brain were acquired. Axial gradient echo T2 weighted images were also acquired. [id number] MRA of the head and neck was performed. The images were reviewed as source images and in multiplanar reformats and maximum intensity projections. FINDINGS: Brain: The images are degraded by patient motion. CSF Spaces: The ventricles, sulci and basal cisterns are within normal limits. Parenchyma: There are hyperintensities on diffusion-weighted imaging with corresponding diminished signal on the ADC map and increased signal on FLAIR and T2 weighted imaging within the right parietal and posterior frontal lobe. There is also involvement of the posterior right insula. There are nonspecific hyperintensities on FLAIR and T2 weighted imaging in the subcortical and periventricular white matter. Prominent perivascular spaces and/or small, remote lacunar infarcts of the basal ganglia and subinsular regions are demonstrated bilaterally. There is no mass effect or midline shift. Paranasal Sinuses and Mastoids: There is mucosal thickening within several ethmoid air cells with complete opacification of anterior ethmoid air cells on the left. There is material that is hyperintense on T1 weighted imaging suggesting hemorrhagic or proteinaceous content. There is also minimal mucosal thickening within the sphenoid and inferior frontal sinuses. The mastoid air cells are clear. MRA of head: The images are markedly degraded by patient motion. Anterior circulation: There are multifocal areas of irregularity and apparent narrowing of the intracranial internal carotid arteries, proximal ACAS, and proximal MCAs. However, there is marked patient motion artifact. Posterior circulation: There is asymmetric irregularity and narrowing of the distal intracranial left vertebral artery. There is also irregularity and at least mild narrowing of the proximal to mid basilar artery. There are multifocal areas of irregularity and apparent stenosis of the bilateral posterior cerebral arteries most significantly involving the P2 segment on the left and the P2/P3 segments on the right. MRA of neck: The images are degraded by artifact and patient motion. Right carotid vessels: There is expected flow signal in the visualized portion of the common carotid artery. There is mild attenuation of flow signal at the carotid bifurcation which may be secondary to flow related artifact. There is significant tortuosity of the proximal to mid internal carotid artery. There are regions of apparent narrowing in the area of tortuosity and is difficult to determine with certainty to what extent they are related to artifact versus atherosclerotic involvement versus true stenosis. Left carotid vessels: There is expected flow signal in the visualized portion of the common carotid artery. There is mild attenuation of flow signal at the carotid bifurcation which may be secondary to flow related artifact. The internal carotid artery in the neck demonstrates expected flow signal. There is no measurable stenosis. Vertebral vessels: Attenuation of flow related signal and areas of apparent narrowing along the distal cervical vertebral arteries occurring in regions where the vessels are horizontally positioned and are thought to largely be due to artifact. Otherwise, the cervical segments of the vertebral arteries are patent. IMPRESSION: MRI Brain: 1. Findings compatible with areas of acute to early subacute ischemic injury involving the right MCA distribution. 2. Nonspecific subcortical and periventricular white matter changes may represent small-vessel ischemic disease in a patient of this age. MRA: 1. Limited evaluation of the cervical and intracranial vasculature due to patient motion artifact. 2. There are multifocal areas of irregularity and apparent stenosis of the anterior and posterior circulation. Please note this is likely accentuated by patient motion artifact. A repeat examination may be of benefit when the patient is better able to cooperate with imaging. 3. Significant tortuosity of the proximal to mid cervical left ICA with areas of apparent narrowing and attenuation of flow related signal thought to largely be related to flow artifact. However, superimposed stenosis cannot be excluded. An [place] alert message was sent to the referring physician Dr. Ramírez Cage through the [employer] support/Notifi system at 11:42 am on 05/05/[address]Jennifer Pearl Dictated by: Nela Pearl Electronically Signed by: Nela Pearl 05/05/2017 11:41 AM Normal [facility] Progress Noteson 05-05-2017 Protein mass conc [facility] Patient: CARLINE VILLARREAL [address] [facility] MR#: [id number] [place], [place] [address] : 1945 Ord. : Dept: PDOC Loc: 9 922-2 Physician Progress Note Service Dt: 05/05/17 Report#: [id number] Adm Dt: 05/04/17 Dis Dt: Note - Patient Note Observation: 05/05/17 17:54 Patient fully evaluated with resident team. Agree with resident history and physical and note. MRI is consistent with a new right-sided see [facility]. Continue supportive measures rehabilitation transfer possibly tomorrow. Normal [facility] Reticulocyte Counton 017 Reticulocyte Count 5.6 % High 0.5-1.5 [facility] Comment on above: Order Comment: Add o n to today's blood, if available? YAdd on to today's blood, if available? YAdd on to today's blood, if available? YAdd on to today's blood, if available? YAdd on to today's blood, if available? Y Performed By: #### C BC, BMP, PHOS, MG, CK, UR, LDLP, URINC ####[facility] [place], [place] [id number] Vitamin B12on 05-05-2017 Cobalamin (Vitamin B12) mass conc Pending Normal 254-1320 [facility] Comment on above: Order Comment: Add o n to today's blood, if available? YAdd on to today's blood, if available? YAdd on to today's blood, if available? YAdd on to today's blood, if available? YAdd on to today's blood, if available? Y Performed By: #### C BC, BMP, PHOS, MG, CK, UR, LDLP, URINC ####[facility] [place] [address] Cobalamin (Vitamin B12) mass conc 403 pg/mL Normal 254-1320 [facility] Comment on above: Performed By: #### C BC, BMP, PHOS, MG, CK, UR, LDLP, URINC ####[address] [address] Basic Metabolic Panel $$$on 05-04-2017 Anion gap 3 molar conc 15.1 mmol/L Normal P [facility] Comment on above: Performed By: #### C BC, BMP, PHOS, MG, CK, UR, LDLP, URINC ####[address] [address] Calcium mass conc 8.8 mg/dL Normal 8.5-10.1 [facility] Comment on above: Performed By: #### C BC, BMP, PHOS, MG, CK, UR, LDLP, URINC ####[address] [address] Chloride molar conc 106 mmol/L Normal 98-107 [facility] Comment on above: Performed By: #### C BC, BMP, PHOS, MG, CK, UR, LDLP, URINC ####[address] [address] CO2 molar conc 24 mmol/L Normal 21-32 [facility] Comment on above: Performed By: #### C BC, BMP, PHOS, MG, CK, UR, LDLP, URINC ####[address] [address] Creatinine mass conc 1.6 mg/dL High 0.6-1.3 [facility] Comment on above: Performed By: #### C BC, BMP, PHOS, MG, CK, UR, LDLP, URINC ####[address] [address] GFR () 41 Normal [facility] Comment on above: Performed By: #### C BC, BMP, PHOS, MG, CK, UR, LDLP, URINC ####[facility] [place] [address] GFR (Non ) 34 Normal [facility] Comment on above: Result Comment: eGFR Units of measure: mL/min/1.73 m 2 Performed By: #### C BC, BMP, PHOS, MG, CK, UR, LDLP, URINC ####[facility] [place] [address] Glucose mass conc 125 mg/dL High 74-106 [facility] Comment on above: Performed By: #### C BC, BMP, PHOS, MG, CK, UR, LDLP, URINC ####[address] [address] Potassium molar conc 4.1 mmol/L Normal 3.5-5.1 [facility] Comment on above: Performed By: #### C BC, BMP, PHOS, MG, CK, UR, LDLP, URINC ####[facility] [place] [address] Sodium molar conc 141 mmol/L Normal 136-145 [facility] Comment on above: Performed By: #### C BC, BMP, PHOS, MG, CK, UR, LDLP, URINC ####[address] [address] Urea nitrogen mass conc (Bld) 56 mg/dL High 7-18 [facility] Comment on above: Performed By: #### C BC, BMP, PHOS, MG, CK, UR, LDLP, URINC ####[address] [address] Brain or Head without Contra ston 05-04-2017 Brain or Head without Contrast [facility] Patient: CARLINE VILLARREAL [address] [facility] MR#: [id number] [place], [place] [address] : [address] Grant Henderson DO Dept: Diagnostic Imaging Loc: 1EDA DI REPORT Service Dt:05/04/17 Report#: [id number] Adm Dt: 05/04/17 Dis Dt: Comments: STUDY: CT Brain or Head without Contrast; 05/04/2017 5:16 am INDICATION: L sided weakness. Multiple falls. Patient found on floor last night. Numbness and tingling. COMPARISON: Brain CT 09/24/2013 ACCESSION NUMBER(S): [id number] ORDERING CLINICIAN: Grant Henderson TECHNIQUE: Axial noncontrast CT images of the head . FINDINGS: EXTRACRANIAL SOFT TISSUES: Unremarkable. CALVARIUM: No depressed skull fracture. No destructive osseous lesion. There is hyperostosis frontalis. PARANASAL SINUSES/MASTOIDS: Partial opacification of the left ethmoid sinuses. Remainder of the paranasal sinuses and mastoid air cells are well aerated. HEMORRHAGE: No acute intracranial hemorrhage. BRAIN PARENCHYMA: Danielson-white matter interfaces are preserved. No mass effect or midline shift. Nonspecific periventricular and gangliocapsular white-matter hypodensities are present. VENTRICLES and EXTRA-AXIAL SPACES: Mild prominence of the cortical sulci. OTHER FINDINGS: Calcifications in the cavernous carotids and vertebral arteries IMPRESSION: No acute intracranial hemorrhage, mass effect or midline shift. Mild gangliocapsular and periventricular white matter hypodensities suggesting changes related to small vessel ischemia. If there is concern for acute ischemia, further evaluation is recommended with MRI. Dictated by: Delon Aldrich Electronically Signed by: Delon Aldrich 05/04/2017 5:25 AM Normal [facility] C-Reactive Proteinon 017 CRP mass conc 0.412 mg/L Normal 0.1-3.0 [facility] Comment on above: Order Comment: Add o n to today's blood, if available? Y Performed By: #### C BC, BMP, PHOS, MG, CK, UR, LDLP, URINC ####[facility] [place] [id number] Complete Blood Count w/diff $$on 05-04-2017 Basophils Auto #/vol (Bld) 0.1 10 /uL Normal 0.04-0.9 [facility] Comment on above: Performed By: #### C BC, BMP, PHOS, MG, CK, UR, LDLP, URINC ####[place] [id number] Basophils/100 WBC Auto (Bld) 1 % Normal 0-1 [facility] Comment on above: Performed By: #### C BC, BMP, PHOS, MG, CK, UR, LDLP, URINC ####[address] [address] Eosinophils Auto #/vol (Bld) 0.2 10 3/uL Normal 0.03-0.6 [facility] Comment on above: Performed By: #### C BC, BMP, PHOS, MG, CK, UR, LDLP, URINC ####[place] [address] Eosinophils/100 WBC Auto (Bld) 2 % Normal 0-3 [facility] Comment on above: Performed By: #### C BC, BMP, PHOS, MG, CK, UR, LDLP, URINC ####[address] [address] Erythrocyte distribution width Auto Ratio (RBC) 13.3 % Normal 11.5-14.5 [facility] Comment on above: Performed By: #### C BC, BMP, PHOS, MG, CK, UR, LDLP, URINC ####[place] [id number] Hematocrit Auto Volume Fraction (Bld) 30.4 % Low 35-47 [facility] Comment on above: Performed By: #### C BC, BMP, PHOS, MG, CK, UR, LDLP, URINC ####[place] [address] Hemoglobin mass conc (Bld) 10.1 g/dL Low 12.0-16.0 [facility] Comment on above: Performed By: #### C BC, BMP, PHOS, MG, CK, UR, LDLP, URINC ####[address] [address] Immature Gran# (Auto) 0.0 10 3/uL Normal [facility] Comment on above: Performed By: #### C BC, BMP, PHOS, MG, CK, UR, LDLP, URINC ####[address] [address] Immature granulocytes #/vol (Bld) 0.3 % Normal 0.0-0.9 [facility] Comment on above: Performed By: #### C BC, BMP, PHOS, MG, CK, UR, LDLP, URINC ####[address] [address] Lymphocytes Auto #/vol (Bld) 2.1 10 3/uL Normal 1-3.5 [facility] Comment on above: Performed By: #### C BC, BMP, PHOS, MG, CK, UR, LDLP, URINC ####[address] [address] Lymphocytes/100 WBC Auto (Bld) 19 % Low 24-44 [facility] Comment on above: Performed By: #### C BC, BMP, PHOS, MG, CK, UR, LDLP, URINC ####[address] [address] MCH Auto Entitic mass (RBC) 33.4 pg Normal 27-34 [facility] Comment on above: Performed By: #### C BC, BMP, PHOS, MG, CK, UR, LDLP, URINC ####[address] [address] MCH Auto Entitic mass (RBC) 33.2 g/dL Normal 33-37 [facility] Comment on above: Performed By: #### C BC, BMP, PHOS, MG, CK, UR, LDLP, URINC ####[address] [address] MCV Auto Entitic volume (RBC) 100.7 fL High 80-100 [facility] Comment on above: Performed By: #### C BC, BMP, PHOS, MG, CK, UR, LDLP, URINC ####[address] [address] Monocytes Auto #/vol (Bld) 0.7 10 3/uL Normal 0.04-0.9 [facility] Comment on above: Performed By: #### C BC, BMP, PHOS, MG, CK, UR, LDLP, URINC ####[address] [address] Monocytes/100 WBC Auto (Bld) 7 % Normal 1-8 [facility] Comment on above: Performed By: #### C BC, BMP, PHOS, MG, CK, UR, LDLP, URINC ####[address] [address] Neutrophils Auto #/vol (Bld) 7.7 10 3/uL High 1.8-7.0 [facility] Comment on above: Performed By: #### C BC, BMP, PHOS, MG, CK, UR, LDLP, URINC ####[address] [address] Neutrophils/100 WBC Auto (Bld) 71 % Normal 42-76 [facility] Comment on above: Performed By: #### C BC, BMP, PHOS, MG, CK, UR, LDLP, URINC ####[address] [address] Nucleated RBC/100 WBC Ratio (Bld) 0.0 % Normal 0.0-0.0 [facility] Comment on above: Performed By: #### C BC, BMP, PHOS, MG, CK, UR, LDLP, URINC ####[address] [address] Platelet mean volume Auto Entitic volume (Bld) 10.0 fL Normal 7.4-10.4 [facility] Comment on above: Performed By: #### C BC, BMP, PHOS, MG, CK, UR, LDLP, URINC ####[address] [address] Platelets Auto #/vol (Bld) 274 10 3/uL Normal 150-400 [facility] Comment on above: Performed By: #### C BC, BMP, PHOS, MG, CK, UR, LDLP, URINC ####[address] [address] RBC Auto #/vol (Bld) 3.02 10 6/uL Low 4.2-5.4 [facility] Comment on above: Performed By: #### C BC, BMP, PHOS, MG, CK, UR, LDLP, URINC ####[address] [address] WBC Auto #/vol (Bld) 10.8 10 3/uL Normal 4.0-11.0 [facility] Comment on above: Performed By: #### C BC, BMP, PHOS, MG, CK, UR, LDLP, URINC ####[address] [address] Creatine Kinase $on 05-04-20 17 Creatine Kinase $ 68 U/L Normal 26-192 [facility] Comment on above: Performed By: #### C BC, BMP, PHOS, MG, CK, UR, LDLP, URINC ####[address] [address] Creatine Kinase $ Normal 26-192 [facility] Comment on above: Order Comment: Added by laboratory to previous specimen.[id number] Performed By: #### C K ####[facility] [place], [place] [id number] Creatinine, Urine Random $on 05-04-2017 Creatinine, Urine Random $ 153.0 mg/dL Normal 20-300 [facility] Comment on above: Order Comment: ADD O N Performed By: #### C BC, BMP, PHOS, MG, CK, UR, LDLP, URINC ####[facility] [place] [address] ED Visit Summaryon 7 ED Visit Summary [facility] Patient: CARLINE VILLARREAL [address] [facility] MR#: [id number] [place], [place] [address] : 1945 Ord[address] : Dept: Emergency Department Loc: 922-2 ER Physician Documentation Service Dt: 05/04/17 Report#: [id number] Adm Dt: 05/04/17 Dis Dt: Entered by Dominguez Ace, acting as scribe for Crew,Grant Nagel, DO 05/04/17 9125. Patient Information - Chief Complaint Initial Complaint: MULTIPLE FALLS/WEAKNESS Chief Complaint: Weakness - Nursing Triage Note Nursing Triage Note: Pt is brought in by her son and daughter in law after pt had been having multiple falls. Pt was found on the floor last night by daughter in law, she was on the floor maybe about a half an hour. Pt reports having numbness nad tingling to both extremities, which is new. Pt can not bear weight at this time. Pt lives alone. Pt has pain in right leg, from above the knee and downward. Pt appears disshevelled, awake and answering questions appropriately. - Allergies Allergies/Adverse Rxn: Allergies No Known Allergies Allergy (Verified 05/04/17 03:43) - Narrative HPI/ROS/Exam: 05/04/17 04:04 Scribed By: Dominguez Ace HPI: Patient is a 71 y/o female who presents to the ED for weakness. Per family, they presented to patients home this evening over concern for lack of contact and found her on the floor. Patient states that she fell due to weakness in her legs. Family states that they had to assist patient up because she was too weak to stand on her own. Patient complains of weakness in her left leg and minor headache. She denies having any neurological history or history of irregular heart beat. Per family, patients last known well was 3 days ago. Review of Systems Constitutional: No fever EENTM: No blurred vision, double vision, nose congestion, throat pain Respiratory: No cough, shortness of breath, SOB at rest Cardiac: No chest pain, lightheadedness, palpitations Abdomen: No abdominal pain, constipation, diarrhea, nausea, vomiting : No dysuria, frequency, urgency Musculoskeletal: No back pain, muscle pain, neck pain Extremity: No edema Skin: No change in color, rash Neurological: No headache, numbness, +left leg weakness All Other Systems: Reviewed and Negative Vital Signs, Nursing Notes, Allergies, and Medications reviewed by me. Physical Exam: Constitutional/General : Alert and oriented x3, well appearing, nontoxic, and in no acute distress Head: Normocephalic and atraumatic Eyes: Conjunctive normal, sclera non-icteric Mouth: Handling secretions Neck: No stridor Respiratory: Lungs clear to auscultation bilaterally, no wheezes, rales, or rhonchi, not in respiratory distress Cardiovascular: Regular rate, regular rhythm, no murmurs Musculoskeletal: Moves all extremities x4, warm and well perfused, no cyanosis, no edema Skin: Color normal, skin warm and dry Neurologic: +NIHSS 7 - Social Medical History Smoking Status: Never smoker Alcohol Use: No Drug Use: No Involved in Unsafe/Hurtful Relationship: No Is Patient Being Hurt at Home or Feeling Unsafe: No Neurological Hx: Migraine Headache Cardiac Hx: High Cholesterol, HTN Hx Heart Failure? How Many Times?: No GI Hx: GERD Other GI Hx: UMBILICAL HERNIA, APPENDECTOMY Musculoskeletal Hx: Arthritis, Joint replacement, Knee replacement, left, Knee replacement, right Other Musculoskelatal Hx: BILATERAL ROTATOR CUFF REPLACEMENTS Integumentary Hx: Psoriasis Psych Hx: Depression - Family History Father Family Hx: Unknown Mother Family Hx: Unknown - Vital Signs Vitals: Vital Signs Temp Pulse Resp BP Pulse Ox 05/04/17 03:43 36.2 C L 101 H 20 149/97 H 100 - Labs Lab Results: Lab Results 05/04/17 04:04 WBC 10.8 RBC 3.02 L Hgb 10.1 L Hct 30.4 L MCV 100.7 H MCH 33.4 MCHC 33.2 RDW 13.3 Plt Count 274 MPV 10.0 Immature Gran % (Auto) 0.3 Neut % (Auto) 71 Lymph % (Auto) 19 L [place] % (Auto) 7 Eos % (Auto) 2 Baso % (Auto) 1 Nucleat RBC Rel Count 0.0 Immature Gran # (Auto) 0.0 Neut # (Auto) 7.7 H Lymph # (Auto) 2.1 [place] # (Auto) 0.7 Eos # (Auto) 0.2 Baso # (Auto) 0.1 - MDM/Admission Progress Note MDM Note: 05/04/17 04:22 71-year-old female presents to emergency department with weakness. She has been weak over the past few days. On exam, she has distinct and definite left sided upper and lower extremity weakness. She has sensory edy-attention on the left. See NIH. CT and labs done. There is evidence of urinary tract infection, therefore patient given dose of Rocephin. CT unremarkable. She was given a dose of aspirin for what appears to be CVA. This is unlikely stroke mimic secondary to UTI, as the patient does not have a history of stroke. Case discussed with Dr Colon and patient admitted for further evaluation with Neuro consult. - Critical Care Time Total Critical Care Time (min): 0 - Radiology Data Radiology Impressions: 05/04/17 05:[address] Impression: 1. No acute intracranial hemorrhage, mass effect or midline shift. Mild gangliocapsular and periventricular white matter hypodensities suggesting changes related to small vessel ischemia. If there is concern for acute ischemia, further evaluation is recommended with MRI NIH Stroke Scale - NIHSS Assessment Time Time Performed: 04:03 - NIH Stroke Scale Level of Consciousness: 0- Alert, Keenly Responsive Ask Month and Patient Age- Must Be Exactly Right: 0- Answers Both Correctly Ask Pt to Open/Close Eyes then Medical Services Manager/Release Non-paretic Hand: 0- Performs Both Tasks Correctly Best Gaze- Only Horizontal Movements Tested: 0- Normal Visual Lee Tested by Confrontation: 0- No Visual Loss Facial Palsy- Ask Pt. to Smile Close Eyes/Grimace Symmetry: 0- Normal Symmetrical Movement Rt Arm Motor- Extend Rt Arm Palm Down: 0- No Drift- Holds for Full 10 Seconds Lt Arm Motor- Extend Lt Arm Palm Down: 1- Drifts Down Before 10 seconds Rt Leg Motor- Extend Rt Leg and Flex at Hip to 30 Degrees: 0- No Drift- Holds for Full 5 Seconds Lt Leg Motor- Extend Lt Leg and Flex at Hip to 30 Degrees: 2- Some Effort Against Bend Limb Ataxia-Finger/Nose Heel/Wallace Done on Both Sides: 1- Present in One Limb Sensory to Pinprick: 2- Severe to Total Sensory Loss; Patient Unaware Best Language-Using Pictures, Naming Items, Reading Sentence: 0- No Aphasia Dysarthia- If not Previously Present, Have Patient Read: 0- Normal Extinction/Inattention : 1- Inattention to Sensory - Total Score NIH Stroke Scale Total Score: 7 ED Physician Disposition - Clinical Impression Clinical Impression: CVA (cerebral vascular accident) Qualifiers: CVA mechanism: unspecified Qualified Code(s): I63.9 - Cerebral infarction, unspecified UTI (urinary tract infection) Qualifiers: Urinary tract infection type: acute cystitis Hematuria presence: with hematuria Qualified Code(s): N30.01 - Acute cystitis with hematuria - Disposition Disposition: ADMIT THROUGH THE ED - Discharge Referrals: Grant Colon MD [Primary Care Provider] - ED MD Scribe Attestation All medical record entries made by Dominguez Ace were at my direction and personally dictated by me. I have reviewed the chart and agree that the record accurately reflects my personal performance of the history, physical exam, assessment and plan. I have also personally directed, reviewed, and agree with the discharge instructions. Grant Henderson, 05/04/17 0547 Normal [facility] Erythrocyte Sedimentation Ra brooklynn 05-04-2017 ESR Velocity (Bld) 23 mm/h Normal 0-30 [facility] Comment on above: Order Comment: Add o n to today's blood, if available? Y Performed By: #### C BC, BMP, PHOS, MG, CK, UR, LDLP, URINC ####[facility] [place] [address] Hemoglobin A1con 05-04-2017 Hemoglobin A1c/Hemoglobin.total mass fraction (Bld) 4.9 % Normal 4.4-6.3 [facility] Comment on above: Order Comment: Add o n to today's blood, if available? YADD ON Performed By: #### C BC, BMP, PHOS, MG, CK, UR, LDLP, URINC ####[facility] [place], [place] [id number] History AND Physicalon 05-04 History AND Physical [facility] Patient: CARLINE VILLARREAL [address] [facility] MR#: [id number] [place], [place] [address] : 1945 OrdMarkos Draper: Dept: PDOC Loc: 9 922-2 History Physical Service Dt: 05/04/17 Report#: [id number] Adm Dt: 05/04/17 Dis Dt: History and Physical - PCP/Chief Complaint Primary Care Physician: Grant Colon - Patient Information HPI/ROS/Exam: Patient is a 71 year old female with a history of HTN who presented to the ED after being found down at home. Patient states yesterday evening (05/03) she fell down in her home after walking out of the bathroom. She states she stood up and as she was walking out of the bathroom she developed some left sided weakness and fell down. She hit her head on the wall, but denies losing consciousness. Patient denies having any lightheadedness, dizziness, palpitations, chest pain, or shortness of breath prior to falling. Patient states her left leg and left arm felt weak and were tingling which she believed caused her to fall. She has never had symptoms like this in the past. Patient states she was down on the ground for 1-2 hours before she was found by her family members who had been trying to get in contact with her. Patient states she was unable to get up from the ground. Patient otherwise has no complaints. Cardiac: High Cholesterol, HTN Neurological: Migraine Headache GI: GERD Other GI HX: UMBILICAL HERNIA, APPENDECTOMY , Female: Tubal Ligation Musculoskeletal: Arthritis, Joint replacement, Knee replacement, left, Knee replacement, right Other Musculoskelatal Hx: BILATERAL ROTATOR CUFF REPLACEMENTS Integumentary: Psoriasis - Social History Smoking Status: Never smoker Does Patient Dip or Chew Tobacco: No Alcohol Use: No Use of Substances/Recreationa l Drugs: No - Family Health History Father Family Member Hx: Unknown Mother Family Member Hx: Unknown - Allergies Allergies/Adverse Reactions: Allergies No Known Allergies Allergy (Verified 05/04/17 03:43) - Medications Home Medications: Aspirin [Aspirin, Baby (CHEWABLE)] 81 mg PO DAILY 09/24/13 [History Last Taken 05/03/17] Lorazepam [Ativan] 2 mg PO TID PRN #0 tab 09/27/13 [Rx Last Taken 05/03/17 22:00] Zolpidem Tartrate [Ambien] 10 mg PO QHS #0 tab 09/27/13 [Rx Last Taken 05/03/17 22:00 10] oxyCODONE/ACETAM. 5MG/325MG [Percocet 325 mg-5 mg] 1 tab PO Q6 PRN #0 tab 09/27/13 [Rx Last Taken Unknown] Non-Formulary Medication [Non-Formulary Drug] 1 each PO DAILY 05/04/17 [History Last Taken Unknown] - Diagnostic Studies Lab Data: Labs (last 24 hrs) 05/04/17 05/04/17 05/04/17 09:30 04:40 04:30 WBC RBC Hgb Hct MCV MCH MCHC RDW Plt Count MPV Immature Gran % (Auto) Neut % (Auto) Lymph % (Auto) [place] % (Auto) Eos % (Auto) Baso % (Auto) Nucleat RBC Rel Count Immature Gran # (Auto) Neut # (Auto) Lymph # (Auto) [place] # (Auto) Eos # (Auto) Baso # (Auto) Sodium Potassium Chloride Carbon Dioxide Anion Gap BUN Creatinine Estim Creat Clear Calc Est GFR ( Amer) Est GFR (Non-Af Amer) Fasting Glucose Hemoglobin A1c 4.9 Calcium Phosphorus Magnesium Total Creatine Kinase Triglycerides Cholesterol LDL Cholesterol HDL Cholesterol Cholesterol/HDL Ratio Urine Color Yellow Urine Clarity Cloudy Urine pH 5.0 Ur Specific Bend 1.017 Urine Protein Negative Urine Glucose (UA) Negative Urine Ketones Negative Urine Blood 2+ H Urine Nitrate Positive H Urine Bilirubin Negative Urine Urobilinogen Normal Ur Leukocyte Esterase 3+ H Urine RBC 5-10 H Urine WBC 30-50 H Ur Squamous Epith Cells Rare Ur Renal Epithelial Cell <1 Urine Bacteria Moderate H Urine Mucus Rare Urine Yeast (Budding) Occasional Ur Random Creatinine 153.0 Ur Random Sodium 12 05/04/17 04:04 WBC 10.8 RBC 3.02 L Hgb 10.1 L Hct 30.4 L MCV 100.7 H MCH 33.4 MCHC 33.2 RDW 13.3 Plt Count 274 MPV 10.0 Immature Gran % (Auto) 0.3 Neut % (Auto) 71 Lymph % (Auto) 19 L [place] % (Auto) 7 Eos % (Auto) 2 Baso % (Auto) 1 Nucleat RBC Rel Count 0.0 Immature Gran # (Auto) 0.0 Neut # (Auto) 7.7 H Lymph # (Auto) 2.1 [place] # (Auto) 0.7 Eos # (Auto) 0.2 Baso # (Auto) 0.1 Sodium 141 Potassium 4.1 Chloride 106 Carbon Dioxide 24 Anion Gap 15.1 BUN 56 H Creatinine 1.6 H Estim Creat Clear Calc No Ht and/or Wt Est GFR ( Amer) 41 Est GFR (Non-Af Amer) 34 Fasting Glucose 125 H Hemoglobin A1c Calcium 8.8 Phosphorus 3.3 Magnesium 2.2 Total Creatine Kinase 68 Triglycerides 156 H Cholesterol 172 LDL Cholesterol 93 HDL Cholesterol 48 Cholesterol/HDL Ratio 3.58 Urine Color Urine Clarity Urine pH Ur Specific Bend Urine Protein Urine Glucose (UA) Urine Ketones Urine Blood Urine Nitrate Urine Bilirubin Urine Urobilinogen Ur Leukocyte Esterase Urine RBC Urine WBC Ur Squamous Epith Cells Ur Renal Epithelial Cell Urine Bacteria Urine Mucus Urine Yeast (Budding) Ur Random Creatinine Ur Random Sodium Microbiology (entire visit) 05/04/17 04:30 Urine - Clean Catch/Voided Urine Culture - Pending - Review of Systems Constitutional: Denies: chills, diaphoresis, fever Respiratory: Denies: cough, orthopnea, shortness of breath, SOB with exertion Cardiovascular: Denies: chest pain, palpitations, dyspnea on exertion, orthopnea Gastrointestinal: Denies: abdominal pain, nausea, vomiting, diarrhea Genitourinary Exam M/F: Denies: urgency, frequency Musculoskeletal: Denies: back pain, joint swelling Integumentary: Denies: rash, lesions Neurological: Reports: headache, weakness, numbness, paresthesias. Denies: confusion, vertigo, lightheadedness Endocrine: Denies: unexplained weight gain, unexplained weight loss - Vital Signs Vitals: Vital Signs (last response) Temperature 36.2 C L 05/04/17 03:43 Pulse/Heart Rate 91 H 05/04/17 07:31 Respiratory Rate 18 05/04/17 07:31 Blood Pressure 111/67 05/04/17 07:31 O2 Sat by Pulse Oximetry 100 05/04/17 07:31 - Physical Exam Constitutional: Positive: alert, in no apparent distress HEENT: Positive: PERRL, EOMI Neck: Positive: Supple, +2 carotid pulse wo bruit, no JVD Adenopathy: Negative: Cervical Right, Cervical Left Respiratory: Positive: normal lung sounds bilaterally. Negative: rales, rhonchi, tachypnea, wheezes Cardiovascular: Positive: regular rate, normal rhythm. Negative: systolic murmur, diastolic murmur, rubs, gallop GI/Abdominal: Positive: soft, nontender, nondistended. Negative: guarding, rebound, rigidity : Positive: deferred Extremities: Positive: no edema, no cellulitis Neurological: Positive: alert, oriented X3, CN II-XII intact, other (Patient demonstrates considerable left sided weakness and ataxia. Patient has considerable difficulty with left sided [id number]-[id number]-ekplet and heel to wallace testing. Patient has 3/5 strength in both her left upper and lower extremity. Patient cannot her left arm directly in front of her for pronator drift testing. Patient has no right sided deficits. I did not appreciate any left sided facial deficits. Patient has no speech deficits.) - Assessment and Plan (1) CVA (cerebral vascular accident) Status: Acute Current Visit: Yes Qualifiers: CVA mechanism: unspecified Qualified Code(s): I63.9 - Cerebral infarction, unspecified Plan: 05/04/17 11:51 Patient is a 71 year old female who was admitted for left sided weakness that resulted in a fall. - Unsure if patient actually had a stroke. CT performed in ED shows white matter hypodensities suggestive of changes related to small vessel ischemia. - MRI brain, head, and neck pending. - Lipid profile ordered. Normal. Patient given 80mg lipitor. Will continue during admission. - Hgba1c unremarkable. - Patient received 325 ASA in the ED. Patient is on ASA as an outpatient. Patient may need to be started on plavix. - Orthostatics ordered to evaluate for potential syncope that resulted in fall. - Neuro consulted for further recommendations. (2) EDWIGE (acute kidney injury) Status: Acute Current Visit: Yes Plan: 05/04/17 11:29 - Baseline creatinine appears to be < 1.0 - Mild EDWIGE. Think pre-renal in nature. - FeNA = 0.1%, indicating likely pre-renal etiology. - Giving patient NS @ 75 cc/hr. Expect quick resolution of EDWIGE. (3) UTI (urinary tract infection) Status: Acute Current Visit: Yes Qualifiers: Urinary tract infection type: acute cystitis Hematuria presence: with hematuria Qualified Code(s): N30.01 - Acute cystitis with hematuria Plan: 05/04/17 11:31 - Nitrate positive UTI. - Cultures pending. - Patient received ceftriaxone in the ED. - Will continue ceftriaxone daily. - Day 1 ceftriaxone. (4) HTN (hypertension) Status: Chronic Current Visit: Yes Qualifiers: Hypertension type: essential hypertension Qualified Code(s): I10 - Essential (primary) hypertension Plan: 05/04/17 11:32 - Chronic - Unsure what medications patient takes as an outpatient. - Have started low dose 5 mg lisinopril as RUBIA inhibitors are useful for stroke prevention. Will monitor for low bp in the setting of an acute ischmic event. Will need to allow for permissive htn. (5) DVT prophylaxis Status: Acute Current Visit: Yes Plan: 05/04/17 11:32 SCDs. - Comments Impression Comments: 05/04/17 16:54 - Patient is very stable. Has significant difficulty walking. Has been accepted to 4th floor rehab, but will need actual diagnosis of CVA for insurance to cover. MRI pending. Review and update is required if H P is greater than twenty-four hours. The patient was examined, the H P was reviewed. __ No Changes __ Changes noted below: Date/Time Attending Physician Normal [facility] Lipid Profileon 05-04-2017 Cholesterol in HDL mass conc 48 mg/dL Normal 40-59 [facility] Comment on above: Performed By: #### C BC, BMP, PHOS, MG, CK, UR, LDLP, URINC ####[facility] [place] [address] Cholesterol in LDL mass conc 93 mg/dL Normal 0-130 [facility] Comment on above: Performed By: #### C BC, BMP, PHOS, MG, CK, UR, LDLP, URINC ####[address] [address] Cholesterol mass conc 172 mg/dL Normal 0-200 [facility] Comment on above: Performed By: #### C BC, BMP, PHOS, MG, CK, UR, LDLP, URINC ####[address] [address] Cholesterol.total/Yesi sterol in HDL mass ratio 3.58 {ratio} Normal 0-5.6 [facility] Comment on above: Result Comment: CHD Risk: Men WomenLowest <3.8 <2.9Low 3.9-4.7 3.0-3.6Average 4.8-5.9 3.7-4.6Moderate 6.0-6.9 4.7-5.6High >6.9 >5.6 Performed By: #### C BC, BMP, PHOS, MG, CK, UR, LDLP, URINC ####[address] [address] Triglycerides, Serum 156 mg/dL High 30-150 [facility] Comment on above: Performed By: #### C BC, BMP, PHOS, MG, CK, UR, LDLP, URINC ####[address] [address] Magnesium $$on 05-04-2017 Magnesium mass conc 2.2 mg/dL Normal 1.8-2.4 [facility] Comment on above: Performed By: #### C BC, BMP, PHOS, MG, CK, UR, LDLP, URINC ####[address] [address] Phosphoruson 05-04-2017 Phosphate mass conc 3.3 mg/dL Normal 2.5-4.9 [facility] Comment on above: Performed By: #### C BC, BMP, PHOS, MG, CK, UR, LDLP, URINC ####[facility] [place] [address] Progress Noteson 05-04-2017 Protein mass conc [facility] Patient: CARLINE VILLARREAL [address] [facility] MR#: [id number] [place], [place] [address] : 1945 Ord[address] : Dept: PDOC Loc: 9 922-2 Physician Progress Note Service Dt: 05/04/17 Report#: [id number] Adm Dt: 05/04/17 Dis Dt: Note - Patient Note Observation: 05/04/17 18:07 Patient fully evaluated with resident team. Agree with resident history and physical. Exam pertinent for probable new onset CVA. Normal [facility] Sodium, Urine Randomon 05-04 Sodium, Urine Random 12 mmol/L Normal [facility] Comment on above: Order Comment: ADD O N Performed By: #### C BC, BMP, PHOS, MG, CK, UR, LDLP, URINC ####[place] [id number] [place], [place] [id number] Urinalysison 05-04-2017 Bacteria LM.HPF #/area (Urine sed) Moderate Abnormal 0 [facility] Comment on above: Performed By: #### C BC, BMP, PHOS, MG, CK, UR, LDLP, URINC ####[facility] [place] [id number] Bilirubin, Urine Negative Normal Negative [facility] Comment on above: Performed By: #### C BC, BMP, PHOS, MG, CK, UR, LDLP, URINC ####[address] [id number] Budding Yeast, Urine Occasional Normal [facility] Comment on above: Performed By: #### C BC, BMP, PHOS, MG, CK, UR, LDLP, URINC ####[address] [address] Clarity Nom (U) Cloudy Normal [facility] Comment on above: Performed By: #### C BC, BMP, PHOS, MG, CK, UR, LDLP, URINC ####[address] [address] Color Nom (U) Yellow Normal [facility] Comment on above: Performed By: #### C BC, BMP, PHOS, MG, CK, UR, LDLP, URINC ####[address] [address] Epithelial Cells Rare Normal 0-5 [facility] Comment on above: Performed By: #### C BC, BMP, PHOS, MG, CK, UR, LDLP, URINC ####[address] [address] Glucose Ql (U) Negative Normal Negative [facility] Comment on above: Performed By: #### C BC, BMP, PHOS, MG, CK, UR, LDLP, URINC ####[address] [address] Hemoglobin Test strip Ql (U) 2+ Abnormal Negative [facility] Comment on above: Performed By: #### C BC, BMP, PHOS, MG, CK, UR, LDLP, URINC ####[address] [address] Ketones Ql (U) Negative Normal Negative [facility] Comment on above: Performed By: #### C BC, BMP, PHOS, MG, CK, UR, LDLP, URINC ####[address] [address] Leukocyte esterase Test strip Ql (U) 3+ Abnormal Negative [facility] Comment on above: Performed By: #### C BC, BMP, PHOS, MG, CK, UR, LDLP, URINC ####[address] [address] Mucus, Urine Rare Normal [facility] Comment on above: Performed By: #### C BC, BMP, PHOS, MG, CK, UR, LDLP, URINC ####[address] [address] Nitrates, Urine Positive Abnormal Negative [facility] Comment on above: Performed By: #### C BC, BMP, PHOS, MG, CK, UR, LDLP, URINC ####[address] [address] pH Test strip (U) 5.0 [pH] Normal 5.0-9.0 [facility] Comment on above: Performed By: #### C BC, BMP, PHOS, MG, CK, UR, LDLP, URINC ####[address] [address] Protein, Urine Negative Normal Negative [facility] Comment on above: Performed By: #### C BC, BMP, PHOS, MG, CK, UR, LDLP, URINC ####[address] [address] RBC LM.HPF #/area (Urine sed) 5-10 Abnormal 0-3 [facility] Comment on above: Performed By: #### C BC, BMP, PHOS, MG, CK, UR, LDLP, URINC ####[address] [address] Renal Epithelial Cells, Urine <1 Normal [facility] Comment on above: Performed By: #### C BC, BMP, PHOS, MG, CK, UR, LDLP, URINC ####[address] [id number] Specific Bend, Urine 1.017 Normal 1.000-1.030 [facility] Comment on above: Performed By: #### C BC, BMP, PHOS, MG, CK, UR, LDLP, URINC ####[address] [address] Urobilinogen, Urine Normal Normal <2.0 [facility] Comment on above: Performed By: #### C BC, BMP, PHOS, MG, CK, UR, LDLP, URINC ####[address] [address] WBC LM.HPF #/area (Urine sed) 30-50 Abnormal 0-2 [facility] Comment on above: Performed By: #### C BC, BMP, PHOS, MG, CK, UR, LDLP, URINC ####[address] [address] Urine Cultureon 05-04-2017 Bacteria identified Cx Nom (U) ---- RUN DATE: 05/04/17 [facility] LAB LIVE PAGE 1 RUN TIME: 0456 Specimen Inquiry ---- PATIENT: LEYDA VILLARREALKENTON Rivera ACCT: [id number] LOC: 1EDA U: [id number] AGE/SX: 71/F ROOM: RE05/04/[address]: Grant Henderson DO : 1945 BED: DIS: STATUS: REG ER TLOC: ---- SPEC #: [id number] ASHOK: 05/04/17 STATUS: CAN REQ #: [id number] RECD: 05/04/[address]: Grant Henderson DO SOURCE: URINE ENTR: 05/04/[address]: Grant Colon MD SPDESC: Urine Not ORDERED: Urine Culture ---- Procedure Result ---- CANCELLED DUPLICATE ---- END OF REPORT Normal [facility] Comment on above: Performed By: #### [facility] ####[facility] [place] [address] Bacteria identified Cx Nom (U) ---- RUN DATE: 05/06/17 [facility] LAB LIVE PAGE 1 RUN TIME: 946 Specimen Inquiry ---- PATIENT: CARLINE VILLARREAL ACCT: [id number] LOC: 9W U: [id number] AGE/SX: 71/F ROOM: [facility] RE05/04/[address]: Grant Colon MD : 1945 BED: 2 DIS: STATUS: ADM IN TLOC: ---- SPEC #: [id number] ASHOK: 05/04/17 STATUS: COMP REQ #: [id number] RECD: 05/04/[address]: Grant Henderson DO SOURCE: URINE ENTR: 05/04/[address]: SPDESMeg: CLEAN CATC ORDERED: Urine Culture ---- Procedure Result ---- > Urine Culture Final COMMENT PATIENT: CARLINE VILLARREAL [place] [facility] [id number] : [birth year] AGE: SEX: F ORDERED BY: PHYSICIAN, AMBULATORY SOURCE: URINE COLLECTED: 05/04/17 04:30 ANTIBIOTICS AT ASHOK.: RECEIVED : 05/04/17 07:20 SITE: CLEAN CATCH R E S U L T S URINE CULTURE,BACTERIAL FINAL 05/06/17 09:45 ISOLATE1 : Escherichia coli >100,000 CFU/ML Organism E coli Antibiotic BP INTRP Ampicillin I Amox/Clavulanate I Cefazolin S Ciprofloxacin R Nitrofurantoin S Gentamicin S Levofloxacin R Piperc/Tazobact S Trimeth/Sulfa S Tetracycline R S=SUSCEPTIBLE I=INTERMEDIATE R=RESISTANT SDD=SUSCEPTIBLE DOSE DEPENDENT NS=NONSUSCEPTIBLE X=REPORTED IN ERROR Performing Site: [facility] - [address] [place] [address] ---- END OF REPORT Normal [facility] Comment on above: Performed By: #### C BC, BMP, PHOS, MG, CK, UR, LDLP, URINC ####[facility] [place] [address] Vital Signs Date Time Vital Sign Value Performing Clinician Facility 12-04-2024 13:59-0400 Body height 165.1 cm Miranda Magaña APRN - [employer] Work Phone: [facility] 12-04-2024 13:59-0400 Diastolic blood pressure 76 mm[Hg] Miranda Magaña APRN - [employer] Work Phone: [facility] 12-04-2024 13:59-0400 Heart rate 78 /min Miranda Magaña APRN - [employer] Work Phone: [facility] 12-04-2024 13:59-0400 Systolic blood pressure 128 mm[Hg] Miranda Magaña APRN - [employer] Work Phone: [facility] 11-21-2024 17:09-0400 Diastolic blood pressure 68 mm[Hg] Avi Peralta MD Work Phone: [facility] 11-21-2024 17:09-0400 Heart rate 86 /min Avi Peralta MD Work Phone: [facility] 11-21-2024 17:09-0400 SaO2% (BldA) [Mass fraction] 99 % Avi Peralta MD Work Phone: [facility] 11-21-2024 17:09-0400 Systolic blood pressure 119 mm[Hg] Avi Peralta MD Work Phone: [facility] 11-21-2024 15:11-0400 Body temperature 97.7 [degF] Avi Peralta MD Work Phone: [facility] 11-21-2024 07:44-0400 Respiratory rate 18 /min Avi Peralta MD Work Phone: [facility] 11-14-2024 13:00-0400 Body height 165.1 cm Avi Peralta MD Work Phone: [facility] 11-14-2024 13:00-0400 Body mass index (BMI) [Ratio] 34.95 kg/m2 Avi Peralta MD Work Phone: [facility] 11-14-2024 13:00-0400 Body weight 95.25 kg Avi Peralta MD Work Phone: [facility] 08-18-2024 13:25-0500 Diastolic blood pressure 77 mm[Hg] Angelina Trujillo PA-C Work Phone: [facility] 08-18-2024 13:25-0500 Heart rate 58 /min Angelina Trujillo PA-C Work Phone: [facility] 08-18-2024 13:25-0500 Systolic blood pressure 145 mm[Hg] Angelina Metzer PA-C Work Phone: [facility] 12-17-2023 07:48-0400 Body temperature 99.3 [degF] Cameron Valencia DO Work Phone: [facility] 12-17-2023 07:48-0400 Diastolic blood pressure 74 mm[Hg] Cameron Valencia DO Work Phone: [facility] 12-17-2023 07:48-0400 Heart rate 68 /min Cameron Valencia DO Work Phone: [facility] 12-17-2023 07:48-0400 SaO2% (BldA) [Mass fraction] 97 % Cameron Valencia DO Work Phone: [facility] 12-17-2023 07:48-0400 Systolic blood pressure 146 mm[Hg] Cameron Valencia DO Work Phone: [facility] 12-17-2023 03:54-0400 Respiratory rate 18 /min Cameron Valencia DO Work Phone: [facility] 12-16-2023 18:14-0400 Body height 167.6 cm Cameron Valencia DO Work Phone: [facility] 12-16-2023 18:14-0400 Body mass index (BMI) [Ratio] 33.09 kg/m2 Cameron Valencia DO Work Phone: [facility] 12-16-2023 18:14-0400 Body weight 93.2 kg Cameron Valencia DO Work Phone: [facility] 10-30-2020 11:32-0400 Body height 149.86 cm Jazmín Root MD, MP-Neurology-[facility] [address] Work Phone: 10-30-2020 11:32-0400 Body mass index (BMI) [Ratio] 46.25 kg/m2 Jazmín Root MD, [facility]-[place] [address] Work Phone: 10-30-2020 11:32-0400 Body surface area Derived from formula 1.95 m2 Jazmín Root MD, [facility]-[place] [address] Work Phone: 10-30-2020 11:32-0400 Body temperature 97.7 [degF] Jazmín Root MD -Neurology- [place] [address] Work Phone: Comment on above: Method: Temporal 10-30-2020 11:32-0400 Body weight 103.87 kg Jazmín Root MD ST-Kgeobrpng-M arma 204 Work Phone: 10-30-2020 11:32-0400 Diastolic blood pressure 66 mm[Hg] Jazmín Root MD KN-Pmqvwyxpo-Occbz 204 Work Phone: Comment on above: Location: RUE; Position: Sitting 10-30-2020 11:32-0400 Heart rate 64 /min Jazmín Root MD AL-Lpuajlotd-G arma 204 Work Phone: 10-30-2020 11:32-0400 SaO2% (BldA) [Mass fraction] 95 % Jazmín Root MD PQ-Ccptfulvv-Muxkz 204 Work Phone: 10-30-2020 11:32-0400 Systolic blood pressure 133 mm[Hg] Jazmín Root MD WN-Ftjynrwja-Nxkxz 204 Work Phone: Comment on above: Location: [facility]; Position: Sitting Encounters Encounter Date Encounter Type Care Provider Facility Start: 02-22-2025 ambulatory Evi Guevara OLS Faci lity:[facility] Start: 02-08-2025 End: 02-08-2025 ambulatory EVI GUEVARA Facility:[facility] Start: 02-06-2025 ambulatory Evi Guevara OLS Faci lity:[facility] Start: 12-18-2024 ambulatory Evi Guevara OLS Faci lity:[facility] Start: 12-12-2024 End: 12-14-2024 Telephone encounter Angelina Trujillo PA-C Work Phone: [address] [place] [address] Comment on above: Patient Update Start: 12-04-2024 End: 12-04-2024 Office outpatient visit 25 minutes Miranda Magaña APRN - [employer] Work Phone: [facility] Cardiology - Merrill Mcmahan Comment on above: Chronic systolic hea rt failure (HCC) (Primary Dx); Primary hypertension; Paroxysmal atrial fibrillation (HCC); Elevated troponin; Stage 3a chronic kidney disease (HCC); Hospital discharge follow-up Start: 12-04-2024 End: 12-04-2024 ambulatory MIRANDA MAGAÑA [facility] Start: 11-29-2024 ambulatory Evi Shilpimaris HACKETT Faci lity:[facility] Start: 11-13-2024 End: 11-21-2024 Evaluation and management of inpatient Avi Peralta MD Work Phone: [facility] Medical Surgical Unit MSU 4S Start: 09-25-2024 End: 09-25-2024 ambulatory Evi HACKETT [facility] Work Phone: Start: 09-25-2024 End: 09-25-2024 Departed Referred Evi Guevara -[facility] Start: 09-25-2024 End: 09-25-2024 ambulatory Evi HACKETT Facility:[facility] Start: 08-30-2024 End: 08-30-2024 ambulatory Evi HACKETT [facility] Work Phone: Start: 08-30-2024 End: 08-30-2024 Departed Referred Evi Guevara -[facility] Start: 08-30-2024 Registered Referred Evi Guevara - [facility] Start: 08-30-2024 End: 08-30-2024 ambulatory Evi HACKETT Facility:[facility] Start: 08-27-2024 End: 08-27-2024 [facility] Start: 08-27-2024 Registered Referred [facility] Start: 08-27-2024 End: 08-27-2024 ambulatory Eiv HACKETT [facility] Work Phone: Start: 08-21-2024 End: 08-21-2024 ambulatory Evi HACKETT [facility] Work Phone: Start: 08-21-2024 End: 08-21-2024 Departed Referred Evi Guevara -[facility] Start: 08-21-2024 End: 08-21-2024 ambulatory Evi HACKETT Facility:[facility] Start: 08-18-2024 End: 08-18-2024 ambulatory ANGELINA TRUJILLO Facility:[facility] Start: 08-18-2024 End: 08-18-2024 Patient encounter procedure Angelina Trujillo PA-C Work Phone: Neurology Comment on above: Intractable migraine without aura and without status migrainosus (Primary Dx); Worsening headaches; Weakness Start: 07-31-2024 End: 07-31-2024 ambulatory Evi HACKETT [facility] Work Phone: Start: 07-31-2024 End: 07-31-2024 Departed Referred Evi Guevara -[facility] Start: 07-31-2024 Registered Referred Evi Guevara - [facility] Start: 07-31-2024 End: 07-31-2024 ambulatory Evi HACKETT Facility:[facility] Start: 07-13-2024 End: 07-13-2024 Departed Referred Evi Guevara -[facility] Start: 07-13-2024 End: 07-13-2024 ambulatory Evi HACKETT Facility:[facility] Start: 06-12-2024 ambulatory Evi HACKETT Faci lity:[facility] Start: 06-12-2024 Registered Referred Evi Guevara - [facility] Start: 03-27-2024 End: 03-27-2024 ambulatory Evi HACKETT Facility:[facility] Start: 03-17-2024 End: 03-17-2024 ambulatory Evi HACKETT Facility:[facility] Start: 03-15-2024 End: 03-15-2024 ambulatory Evi HACKETT Facility:[facility] Start: 03-13-2024 End: 03-13-2024 ambulatory Evi HACKETT Facility:[facility] Start: 12-16-2023 End: 12-17-2023 Evaluation and management of inpatient Cameron Valencia DO Work Phone: [facility] Cardiac Progressive Care Unit PCU 2E Comment on above: Left-sided weakness (Primary Dx); TIA (transient ischemic attack) Start: 09-23-2023 End: 09-23-2023 ambulatory [facility] Work Phone: Start: 09-23-2023 End: 09-23-2023 [facility] Start: 09-23-2023 [facility] Start: 09-13-2023 End: 09-13-2023 ambulatory [facility] Work Phone: Start: 09-13-2023 End: 09-13-2023 Departed Referred [facility] Start: 09-10-2023 End: 09-10-2023 ambulatory [facility] Work Phone: Start: 09-10-2023 End: 09-10-2023 [facility] Start: 09-10-2023 [facility] Start: 08-13-2023 End: 08-13-2023 [facility] Start: 08-13-2023 [facility] Start: 08-02-2023 End: 08-02-2023 ambulatory [facility] Work Phone: Start: 08-02-2023 End: 08-02-2023 [facility] Start: 07-13-2023 End: 07-13-2023 [facility] Start: 06-29-2023 End: 06-29-2023 ambulatory [facility] Work Phone: Start: 06-29-2023 End: 06-29-2023 [facility] Start: 06-21-2023 End: 06-21-2023 ambulatory [facility] Work Phone: Start: 06-21-2023 End: 06-21-2023 [facility] Start: 06-21-2023 Registered Referred [facility] Start: 06-02-2023 End: 06-02-2023 ambulatory [facility] Work Phone: Start: 06-02-2023 End: 06-02-2023 [facility] Start: 05-20-2023 End: 05-20-2023 [facility] Start: 05-20-2023 [facility] Start: 05-13-2023 End: 05-13-2023 ambulatory [facility] Work Phone: Start: 05-13-2023 End: 05-13-2023 [facility] Start: 04-22-2023 End: 04-22-2023 [facility] Start: 04-22-2023 Registered Referred [facility] Start: 04-21-2023 End: 04-21-2023 ambulatory [facility] Work Phone: Start: 04-21-2023 End: 04-21-2023 [facility] Start: 04-12-2023 End: 04-12-2023 ambulatory [facility] Work Phone: Start: 04-12-2023 End: 04-12-2023 [facility] Start: 04-12-2023 [facility] Start: 03-25-2023 [facility] Start: 03-25-2023 End: 03-25-2023 ambulatory [facility] Work Phone: Start: 03-25-2023 End: 03-25-2023 Departed Referred [facility] Start: 03-23-2023 End: 03-23-2023 Departed Referred [facility] Start: 03-23-2023 Registered Referred [facility] Start: 03-15-2023 End: 03-15-2023 ambulatory [facility] Work Phone: Start: 03-15-2023 End: 03-15-2023 Departed Referred [facility] Start: 03-09-[address] Grant Colon Facility:[id number] Start: 02-19-[address] Grant Colon Facility:[id number] Start: 02-05-[address] Grant Colon Facility:[id number] Start: 01-06-[address] Grant Colon Facility:[id number] Start: 12-07-[address] Grant Colon Facility:[id number] Start: 11-06-[address] Grant Colon Facility:[id number] Start: 10-07-[address] Grant Colon Facility:[id number] Start: 09-28-[address] Grant Colon Facility:[id number] Start: 09-21-[address] Grant Colon Facility:[id number] Start: 09-07-[address] Grant Colon Facility:[id number] Start: 08-27-[address] Grant Colon Facility:[id number] Start: 08-08-[address] Grant Colon Facility:[id number] Start: 07-16-[address] Grant Colon Facility:[id number] Start: 07-09-[address] Grant Colon Facility:[id number] Start: 06-09-[address] Grant Colon Facility:[id number] Start: 05-27-[address] Grant Colon Facility:[id number] Start: 10-30-2020 Patient encounter procedure Jazmín Root MD DC-Ltadzokok-Uyjxi 204 Work Phone: Start: 03-07-2019 Patient encounter procedure Jazmín Root MD QN-Xjawbssly-Ejyos 204 Work Phone: Start: 03-08-2018 Patient encounter Grant [facility]on lity:[facility] Start: 10-10-2017 End: 10-10-2017 Emergency department patient visit UNKNOWN PROVIDER Facility:[facility] Start: 08-21-2017 End: 08-21-2017 Patient encounter Grant Colon Facility:[facility] Start: 08-06-2017 End: 08-06-2017 Evaluation and management of inpatient Grant Colon Facility:[facility] Start: 06-24-2017 End: 06-24-2017 Emergency department patient visit Iban YinMarkos Lauren Facility:[facility] Start: 05-31-2017 Patient encounter Grant Menon lity:[facility] Start: 05-08-2017 End: 05-08-2017 Emergency department patient visit Alfonso Berry Facility:[facility] Start: 05-04-2017 End: 05-07-2017 Evaluation and management of inpatient Efraín Negrete Facility:[facility] Procedures Date Procedure Procedure Detail Performing Clinician Start: 12-04-2024 Ecg routine ecg w/le ast 12 lds trcg only w/o i&r Prateek Fagan MD Work Phone: Start: 11-21-2024 Glucose quantitative blood xcpt reagent strip Avi Vasquez MD Work Phone: Start: 11-21-2024 Glucose quantitative blood xcpt reagent strip Avi Vasquez MD Work Phone: Start: 11-21-2024 Basic metabolic pane l calcium total Sivakumar Walton MD Work Phone: Start: 11-20-2024 Glucose quantitative blood xcpt reagent strip Ni Sam MD Work Phone: Start: 11-20-2024 Glucose quantitative blood xcpt reagent strip Ni Sam MD Work Phone: Start: 11-20-2024 Glucose quantitative blood xcpt reagent strip Ni Sam MD Work Phone: Start: 11-20-2024 Glucose quantitative blood xcpt reagent strip Ni Sam MD Work Phone: Start: 11-20-2024 Basic metabolic pane l calcium total Sivakumar Walton MD Work Phone: Start: 11-19-2024 Glucose quantitative blood xcpt reagent strip Sivakumar Walton MD Work Phone: Start: 11-19-2024 Glucose quantitative blood xcpt reagent strip Sivakumar Walton MD Work Phone: Start: 11-19-2024 Glucose quantitative blood xcpt reagent strip Sivakumar Walton MD Work Phone: Start: 11-19-2024 Glucose quantitative blood xcpt reagent strip Sivakumar Walton MD Work Phone: Start: 11-19-2024 Basic metabolic pane l calcium total Sivakumar Walton MD Work Phone: Start: 11-18-2024 Glucose quantitative blood xcpt reagent strip Sivakumar Walton MD Work Phone: Start: 11-18-2024 Glucose quantitative blood xcpt reagent strip Sivakumar Walton MD Work Phone: Start: 11-18-2024 Glucose quantitative blood xcpt reagent strip Sivakumar Walton MD Work Phone: Start: 11-18-2024 Glucose quantitative blood xcpt reagent strip Sivakumar Walton MD Work Phone: Start: 11-18-2024 Basic metabolic pane l calcium total Gordo Nogueira MD Work Phone: Start: 11-17-2024 Glucose quantitative blood xcpt reagent strip Ni Sam MD Work Phone: Start: 11-17-2024 Glucose quantitative blood xcpt reagent strip Ni Sam MD Work Phone: Start: 11-17-2024 Bacteria identified in Blood by Culture Ni Sam MD Work Phone: Start: 11-17-2024 Radiologic exam ches t single view Ni Sam MD Work Phone: Start: 11-17-2024 Ct head/brain w/o co ntrast material Ni Sam MD Work Phone: Start: 11-17-2024 Comprehensive metabo lic panel Vicki Caba MD Work Phone: Start: 11-17-2024 Glucose quantitative blood xcpt reagent strip Ni Sam MD Work Phone: Start: 11-17-2024 Glucose quantitative blood xcpt reagent strip Ni Sam MD Work Phone: Start: 11-16-2024 Glucose quantitative blood xcpt reagent strip Ni Sam MD Work Phone: Start: 11-16-2024 Glucose quantitative blood xcpt reagent strip Ni Sam MD Work Phone: Start: 11-16-2024 Glucose quantitative blood xcpt reagent strip Ni Sam MD Work Phone: Start: 11-16-2024 RESPIRATORY THERAPY COMMUNICATION ORDER Michelle Hall MD Work Phone: Start: 11-16-2024 Glucose quantitative blood xcpt reagent strip Ni Sam MD Work Phone: Start: 11-16-2024 Glucose quantitative blood xcpt reagent strip Ni Sam MD Work Phone: Start: 11-16-2024 Basic metabolic pane l calcium total Dominguez Franz MD Work Phone: Start: 11-15-2024 Glucose quantitative blood xcpt reagent strip Ni Sam MD Work Phone: Start: 11-15-2024 Glucose quantitative blood xcpt reagent strip Ni Sam MD Work Phone: Start: 11-15-2024 Ecg routine ecg w/le ast 12 lds trcg only w/o i&r Ni Sam MD Work Phone: Start: 11-15-2024 Glucose quantitative blood xcpt reagent strip Ni Sam MD Work Phone: Start: 11-15-2024 Radiologic exam ches t single view Michelle Hall MD Work Phone: Start: 11-15-2024 Glucose quantitative blood xcpt reagent strip Ni Sam MD Work Phone: Start: 11-15-2024 Basic metabolic pane l calcium total Dominguez Franz MD Work Phone: Start: 11-15-2024 Thyrotropin [Units/v olume] in Serum or Plasma Miranda Mccarthybradley [employer]SH[employer] COUNSEL[employer] [facility] Work Phone: Start: 11-14-2024 Glucose quantitative blood xcpt reagent strip Dominguez Franz MD Work Phone: Start: 11-14-2024 Glucose quantitative blood xcpt reagent strip Dominguez Franz MD Work Phone: Start: 11-14-2024 TTE w or wo fol wcon,Doppler Dominguez Franz MD Work Phone: Start: 11-14-2024 Glucose quantitative blood xcpt reagent strip Dominguez Franz MD Work Phone: Start: 11-14-2024 Ecg routine ecg w/le ast 12 lds trcg only w/o i&r Dominguez Franz MD Work Phone: Start: 11-14-2024 Drug screen quantita tive vancomycin Dominguez Franz MD Work Phone: Start: 11-14-2024 Glucose quantitative blood xcpt reagent strip Dominguez Franz MD Work Phone: Start: 11-14-2024 Basic metabolic pane l calcium total Dominguez Franz MD Work Phone: Start: 11-13-2024 Blood gases any comb ination ph pco2 po2 co2 hco3 Avi Peralta MD Work Phone: Start: 11-13-2024 Bacteria identified in Blood by Culture Loly Saleem PA-C Work Phone: Start: 11-13-2024 Procalcitonin (pct) Jim Franz MD Work Phone: Start: 11-13-2024 Radiologic exam ches t single view Loly Saleem PA-C Work Phone: Start: 11-13-2024 Ecg routine ecg w/le ast 12 lds trcg only w/o i&r Loly Saleem PA-C Work Phone: Start: 11-13-2024 HC SARSCOV2&INF A&B& RSV AMP PRB Loly Saleem PA-C Work Phone: Start: 11-13-2024 Blood gases any comb ination ph pco2 po2 co2 hco3 Avi Peralta MD Work Phone: Start: 11-13-2024 Comprehensive metabo lic panel Avi Perlata MD Work Phone: Start: 08-30-2024 Urine culture Evi HACKETT Start: 08-27-2024 Urine culture Evi HACKETT Start: 07-31-2024 Urine culture Evi HACKETT Start: 12-17-2023 TTE w or wo fol wcon,Doppler Bartolo Meehan MD Work Phone: Start: 12-17-2023 Mri brain brain stem w/o contrast material Bartolo Meehan MD Work Phone: Start: 12-17-2023 Comprehensive metabo lic panel Bartolo Meehan MD Work Phone: Start: 12-17-2023 Lipid panel Bartolo munguia MD Work Phone: Start: 12-17-2023 Lipid 1996 panel - S vianey or Plasma Cameron Valencia DO Work Phone: Start: 12-16-2023 Assay of troponin quantitative Cameron Almontela DO Work Phone: Start: 12-16-2023 POCT GLUCOSE METER Umesh Valencia DO Work Phone: Start: 12-16-2023 Ecg routine ecg w/le ast 12 lds trcg only w/o i&r Bartolo Meehan MD Work Phone: Start: 12-16-2023 End: 12-16-2023 Ct angiography head w/contrast/noncontrast Cameron Valencia DO Work Phone: Start: 12-16-2023 End: 12-16-2023 Comprehensive metabolic panel Cameron Valencia DO Work Phone: Start: 12-16-2023 Ecg routine ecg w/le ast 12 lds i&r only Cameron Valencia DO Work Phone: Start: 03-25-2023 Urine culture Plan of Treatment Date Care Activity Detail Author Start: 12-16-2028 Lipid panel Lipid Panel [facility] Start: 11-22-2027 [facility] Start: 12-16-2026 [facility] Start: 11-21-2025 Creatinine measurement [facility] Start: 11-21-2025 Potassium measurement [facility] Start: 11-15-2025 Thyroid stimulating hormone measurement [facility] Start: 11-14-2025 Echocardiography Echocardiogram [facility] Start: 11-14-2025 [facility] Start: 03-05-2025 Influenza vaccination Influenz a Vaccine (Season Ended) [facility] Start: 03-05-2025 [facility] Start: 02-16-2025 End: 02-16-2025 Patient encounter procedure 02/16/2025 3:00 PM EDT Office Visit Neurology [address] [place] [address] [place] [address] Angelina Trujillo PA-C [address] [place] [address] Chronic Headaches follow up Neurology Comment on above: Chronic Headaches fo llow up Start: 12-04-2024 End: 12-04-2024 ambulatory [facility] [place] Start: 08-18-2024 End: 11-17-2024 C reactive protein [Mass/volume] in Serum or Plasma C-REACTIVE PROTEIN Lab Routine Worsening headaches Expected: 08/18/2024, Expires: 11/17/2024 [facility] Comment on above: Expected: 08/18/2024 , Expires: 11/17/2024 Start: 08-18-2024 End: 11-17-2024 CBC panel - Blood by Automated count COMPLETE BLOOD COUNT Lab Routine Worsening headaches Expected: 08/18/2024, Expires: 11/17/2024 [facility] Comment on above: Expected: 08/18/2024 , Expires: 11/17/2024 Start: 08-18-2024 End: 11-17-2024 Cobalamin (Vitamin B12) [Mass/volume] in Serum or Plasma VITAMIN B12 Lab Routine Worsening headaches Expected: 08/18/2024, Expires: 11/17/2024 [facility] Comment on above: Expected: 08/18/2024 , Expires: 11/17/2024 Start: 08-18-2024 End: 11-17-2024 Comprehensive metabolic 2000 panel - Serum or Plasma COMPREHENSIVE METABOLIC PANEL Lab Routine Worsening headaches Expected: 08/18/2024, Expires: 11/17/2024 [facility] Comment on above: Expected: 08/18/2024 , Expires: 11/17/2024 Start: 08-18-2024 End: 11-17-2024 Erythrocyte sedimentation rate SEDIMENTATION RATE, WESTERGREN Lab Routine Worsening headaches Expected: 08/18/2024, Expires: 11/17/2024 [facility] Comment on above: Expected: 08/18/2024 , Expires: 11/17/2024 Start: 08-18-2024 End: 11-17-2024 Thyrotropin [Units/volume] in Serum or Plasma THYROID STIMULATING HORMONE Lab Routine Worsening headaches Weakness Expected: 08/18/2024, Expires: 11/17/2024 [facility] Comment on above: Expected: 08/18/2024 , Expires: 11/17/2024 Start: 07-05-2024 Advance Directive Discussion Advance Directive Discussion [facility] Start: 03-05-2024 Covid-19 Vaccine ( season) Covid-19 Vaccine () [facility] Start: 03-05-2024 COVID-19 Vaccine () COVID-19 Vaccine () [facility] Start: 03-05-2024 Influenza vaccination [facility] Start: 03-05-2024 [facility] Start: 03-05-2023 COVID-19 Vaccine ( season) COVID-19 Vaccine ( season) [facility] Start: 2020 RSV Immunization for Adults (1 - 1-dose 75+ series) RSV Immunization for Adults (1 - 1-dose 75+ series) [facility] Start: 2020 RSV Vaccine (1 - 1-d ose 75+ series) RSV Vaccine (1 - 1-dose 75+ series) [facility] Start: 2020 [facility] Start: 11-19-2020 Mra head w/o contrst material MRA Head without Contrast PJ-Twokvtinh-Youah 204 Work Phone: Start: 11-19-2020 Mri brain brain stem w/o contrast material MRI Brain without Contrast TE-Ehxcdemuy-Ppzop 204 Work Phone: Start: 10-30-2020 Mra head w/o contrst material MRA Head without Contrast AE-Iwnysjytg-Lcyvd 204 Work Phone: Start: 10-30-2020 Mri brain brain stem w/o contrast material MRI Brain without Contrast UL-Azturnnon-Wgheo 204 Work Phone: Start: 10-30-2020 Sedimentation rate r bc automated Sedimentation Rate, Erythrocyte DT-Yggwsrrye-Kxhwm 204 Work Phone: Start: 09-25-2019 Urine microalbumin profile DTaP,Tdap,Td Vaccine (2 - Td or Tdap) [facility] Start: 10-08-2017 Pneumococcal Vaccine : 50+ Years (2 of 2 - PPSV23) Pneumococcal Vaccine: 50+ Years (2 of 2 - PPSV23) [facility] Start: 10-08-2017 Pneumococcal Vaccine : 65+ Years (2 of 2 - PPSV23 or PCV20) Pneumococcal Vaccine: 65+ Years (2 of 2 - PPSV23 or PCV20) [facility] Start: 10-08-2017 [facility] Start: 2010 Screening for osteoporosis Bone Density Screening [facility] Start: 12-03-2010 Medicare Annual Well ness Visit Medicare Annual Wellness Visit [facility] Start: 05-05-2008 Pneumococcal Vaccine : 50+ (2 of 2 - PCV) Pneumococcal Vaccine: 50+ (2 of 2 - PCV) [facility] Start: 2005 RSV Immunization age d 60 or older (1 - 1-dose 60+ series) RSV Immunization aged 60 or older (1 - 1-dose 60+ series) [facility] Start: 12-21-1995 Shingrix Vaccine (1 of 2) Wallace grix Vaccine (1 of 2) [facility] Start: 12-21-1995 Zoster Vaccines (1 of 2) Zoste r Vaccines (1 of 2) [facility] Start: 12-21-1995 [facility] Start: 1964 DTaP/Tdap/Td Vaccine s (1 - Tdap) DTaP/Tdap/Td Vaccines (1 - Tdap) [facility] Start: 1964 [facility] Start: 12-21-1963 Annual PCP Team Order Clerk florentin Disease Visit Annual PCP Team Chronic Disease Visit [facility] Start: 12-21-1963 Anxiety Screening Anxiety Screening [facility] Start: 12-21-1963 BP Controlled (<130/80) BP Con trolled (<130/80) [facility] Start: 12-21-1963 Depression Screening Depression Scre ening [facility] Start: 12-21-1963 Hepatitis C screening [facility] Start: 1957 Depression Monitoring Depression Mon itoring [facility] Start: 1957 Depression Screening Depression Scre ing [facility] Start: 1957 [facility] Start: 1945 Medicare Annual Well ness (AWV) Medicare Annual Wellness (AWV) [facility] Start: 1945 Screening for osteoporosis [facility] Start: 1945 Thyroid stimulating hormone measurement TSH Level [facility] Start: 1945 [facility] Bacteria identified in Blood by Culture [facility] Work Phone: ECG 12 lead - CLINIC PERFORMED ECG 12 lead - CLINIC PERFORMED CV ECG Routine Paroxysmal atrial fibrillation (HCC) 12/04/2024 2:08 PM EDT [facility] Work Phone: End: 09-17-2025 MR Brain WO contrast MRI BRAIN WO IVCON Radiology Routine Worsening headaches 1 Occurrences starting 08/18/2024 until 09/17/2025 [facility] Work Phone: Comment on above: 1 Occurrences starti ng 08/18/2024 until 09/17/2025 PV-Voqlxbbot-Vx rma 204 Work Phone: NEGATED: Highlighted row has been ruled out! Planned Goals not documented MU-Wijrqqkix-Bwedm 204 Work Phone: Immunizations Immunization Date Immunization Notes Care Provider Dinah king 04-08-2022 influenza virus vacc ine, unspecified formulation Miranda Magaña [employer]SHIP COUNSELOR - [employer] Work Phone: [facility] 02-23-2016 influenza virus vacc ine, unspecified formulation Angelina Trujillo PA-C Work Phone: [facility] Payers Date Payer Category Payer Private Health Insurance [id number] 2024 Self-pay 2023 Medicaid [id number] 2023 Medicaid HMO [id number] 2023 Private Health Insurance [id number] 2010 Medicare [id number] 2010 Medicare [id number] 1945 Unknown [id number] 2.16.8 40.1.989714.3.579.2.104 1945 Unknown [id number] 2.16.8 40.1.921195.3.579.2.6 1945 Unknown [id number] 2.16.8 40.1.330237.3.579.2.1046 1945 Unknown [id number] 2.16.8 40.1.020297.3.579.2.1045 1945 Unknown [id number] 2.16.8 40.1.858797.3.579.2.1045 1945 Unknown [id number] 2.16.8 40.1.992682.3.579.2.1045 1945 Unknown [id number] 2.16.8 40.1.199348.3.579.2.1045 1945 Unknown [id number] 2.16.8 40.1.619772.3.579.2.1045 1945 Unknown [id number] 2.16.8 40.1.577463.3.579.2.1045 1945 Unknown [id number] 2.16.8 40.1.200915.3.579.2.1045 1945 Unknown [id number] 2.16.8 40.1.706170.3.579.2.1045 1945 Unknown [id number] 2.16.8 40.1.305778.3.579.2.1045 1945 Unknown [id number] 2.16.8 40.1.884636.3.579.2.1045 1945 Unknown [id number] 2.16.8 40.1.446039.3.579.2.1045 1945 Unknown [id number] 2.16.8 40.1.110826.3.579.2.1045 1945 Unknown [id number] 2.16.8 40.1.173946.3.579.2.1046 Medicare [id number] Medicare [id number] Unknown [id number] Unknown [id number] 2.16.8 40.1.525707.3.579.2.462 Unknown [id number] 2.16.8 40.1.263166.3.579.2.462 Unknown [id number] 2.16.8 40.1.575357.3.579.2.462 Unknown [id number] 2.16.8 40.1.158397.3.579.2.462 Unknown [id number] 2.16.8 40.1.231791.3.579.2.462 Unknown [id number] 2.16.8 40.1.649199.3.579.2.462 Unknown [id number] 2.16.8 40.1.365484.3.579.2.462 Unknown [id number] 2.16.8 40.1.111622.3.579.2.462 Unknown [id number] 2.16.8 40.1.724551.3.579.2.462 Unknown [id number] 2.16.8 40.1.148718.3.579.2.462 Unknown [id number] 2.16.8 40.1.636880.3.579.2.462 Unknown [id number] 2.16.8 40.1.689971.3.579.2.462 Unknown [id number] 2.16.8 40.1.800580.3.579.2.462 Unknown [id number] 2.16.8 40.1.979047.3.579.2.462 Unknown [id number] 2.16.8 40.1.159976.3.579.2.462 Social History Date Type Detail Facility Assertion Tobacco smoking consumption unknown (finding) [place] [address] Work Phone: Start: 1945 Sex Assigned At Female [facility] Start: 12-16-2023 [facility] Occasional tobacco smoker [facility] History of tobacco use Cigarette Smoker [facility] Start: 12-16-2023 End: 11-18-2024 Alcohol intake Ex-drinker (finding) [facility] Start: 12-16-2023 End: 08-18-2024 History of Social function [facility] Start: 12-16-2023 End: 08-18-2024 [facility] Utilities [facility] Has the electric, ga s, oil, or water company threatened to shut off services in your home in past 12Mo Patient unable to answer [facility] Start: 1945 Sex Assigned At Not on file [facility] Start: 11-22-2013 Tobacco smoking stat [place] Never smoked tobacco [facility] Start: 11-22-2013 Tobacco use and exposure Smokeless tobacco non-user [facility] Start: 08-18-2024 Alcoholic beverage intake Not Asked [facility] Tobacco smoking stat [place] Unknown if ever smoked [facility] Work Phone: Start: 12-16-2023 End: 09-08-2024 Sex Female (finding) [facility] Functional Status Date Assessment Result Facility NEGATED: Highlighted row Functional performance Functional status health issues are not documented Disease [facility] Work Phone: Mental Status Date Assessment Result Facility NEGATED: Highlighted row Cognitive function [Interpretation] Cognitive status health issues are not documented Disease [facility] Work Phone: Clinical Notes 12-16-2023 to 02-08-2025 Telephone Encounter - Melonie Isaac OCCA - 12/14/2024 3:36 PM EDTTelephone Encounter - Melonie Isaac OCCA - 12/14/2024 3:36 PM EDTTelephone Encounter - Safia Frankel - 12/12/2024 2:16 PM EDT Note Date & Type Note Facility 02-08-2025 Note HNO ID: [id number] Author: ANGELINA TRUJILLO PA-C Service: ? Author Type: Physician Field Service Engineer Type: Progress Notes Filed: 02/08/2025 14:41 Note Text: [facility] Follow up CC: Headache Follow up Last Visit: 08/18/24 Assessment AND Plan: Carline Villarreal is a 78 year old female with a history of CVA, migraines,. Her examination demonstrates chronic weakness of the left upper extremity, hyperreflexia in that limb as well. Baseline confusion and difficulty following multistep tasks. Patient presents with family for evaluation of worsening headaches. Patient lives at a group home. Family notes that she has some baseline confusion due to an old stroke about 9 years ago. History is primarily obtained through the family but is very limited. Was told by the nursing facility that she has been complaining of more headaches, has longstanding history of migraines. Patient still describing migraine headaches typically frontal with associated photophobia, phonophobia, nausea and occasional vomiting. No autonomic features, denies any vision changes or jaw claudication. However, due to history limitations as well as possible worsening headaches in a patient above the age of 60 will obtain MRI of the brain as well as CRP and ESR with basic blood work to look for common causes of worsening headaches. Low suspicion for GCA at this time but will continue to monitor. Patient is currently on gabapentin 300 mg twice daily for headache management and has been on this for many years. Discussed increasing this to 600 mg twice a day, it is primarily prescribed through the facility from primary care. Patient and family agreeable to this, new prescription was placed. For abortive relief she is currently on Imitrex, but due to history of stroke this is contraindicated. Will start Nurtec to take with onset of migraine headache. Discussed common side effects and patient is amenable. Encouraged conservative therapy as well. Patient and family agreeable to treatment plan of care at this time, questions were answered. Patient to follow-up should headaches persist in 3 months. Carline was seen today for consult. Diagnoses and all orders for this visit: Worsening headaches - MRI BRAIN WO IVCON; Future - C-REACTIVE PROTEIN; Future - SEDIMENTATION RATE, WESTERGREN; Future - THYROID STIMULATING HORMONE; Future - COMPREHENSIVE METABOLIC PANEL; Future - COMPLETE BLOOD COUNT; Future - VITAMIN B12; Future Weakness - THYROID STIMULATING HORMONE; Future Other orders - rimegepant (NURTEC ODT) 75 mg disintegrating tablet; Take 1 tablet by mouth once daily as needed. - gabapentin (NEURONTIN) 600 mg tablet; Take 1 tablet by mouth two times a day for 90 days. All options for treatment discussed. Preventative:Increase gabapentin to 600mg bid Abortive: nurtec 75mg Imaging: mri brain Labs: CRP, ESR, TSH, CMP, CBC, B12 She should return to see me in 3 months. Today: Patient is here for headache/migraine follow up. Last seen for HDEZ on 08/18/24, lives in a group home. Hx limited. Daily headaches with migraine features. Ordered MRI brain, CRP and ESR. Increased gabapentin to 600mg bid and nurtec. Of note B12 is low. Did not get MRI brain. CT brain showed old lacunar infarct. Telephone encounter on 12/12/24 noting that patient was in the hospital and plavix was stopped. Also gabapentin decreased back down to 300mg bid and added BP med (metoprolol). Since last visit headaches have have somewhat improved but history is very limited. Patient does visit with a rural electrification engineer from the facility but not with any family. Memory is significantly limiting history. Does report that the Nurtec is very helpful when she takes it, does not believe she is running out every month. Banjo Repair Person does believe that she has a least 2-4 headaches in a week but again does not want to have the Nurtec. It is documented that Nurtec has been helpful for her. Tried discussing stopping headaches, recent hospitalization but patient was unsure why this was stopped. Does not remember recent hospitalization in November. Current Headache treatment Preventative: Gabapentin 300mg bid, cymbalta, metoprolol, lexapro, TPM 100mg Abortive: nurtec Medications effective? yes # of doses of abortive medications per month: 8 Prior Therapies Gabapentin Cymbalta Lisinopril Metoprolol Imitrex Percocet TPM Lexapro Nurtec The patient's prior records were reviewed including and lab testing, imaging, and procedures done since their last visit with me. Review of symptoms including constitutional, eyes, ENT, neck, respiratory, cardiovascular, GI, , musculoskeletal, hematologic, oncologic, endocrine, and psychiatric categories is unchanged. No new details in the family history or social history were offered by the patient. PAST MEDICAL HISTORY Diagnosis Date Artificial knee joint present, bilateral (more content not included)... [facility] 12-14-2024 Telephone encounter Note TC to patients care facility who verbalized understanding of providers message and will contact prescribing office. LAUREL Abraham [facility] 12-14-2024 Miscellaneous Notes TC to patients care facility who verbalized understanding of providers message and will contact prescribing office. LAUREL Abraham Updated care everywhere, able to pull in hospitalization records. Is neurology able to review and advise the nursing staff questions? Would you like more records from [facility]? Called [facility]. Nurse states patient was in the hospital recently and the patient was taken off Cymbalta and the gabapentin was decreased back to 300 mg twice a day. They increased her hydralazine and added blood pressure medications. Nursing is asking if there can be better alternatives to preventing the migraines instead of treating them with Nurtec due to cost. Advised nursing at the [facility] we will have to get her records from the hospital and ask neurology to review. [facility] called in stating Prior to [facility] previous hospitalization she was on plavix. When she returned she was not on it any more. Wanting Queener to review and advise to see if she should still be taking it. Also asking if there is an alternative Neurotec as it is costly. Please call [phone] please ask for 200 bermeo Nurse documented in this encounter [facility] 12-13-2024 Telephone encounter Note Updated care everywhere, able to pull in hospitalization records. Is neurology able to review and advise the nursing staff questions? Would you like more records from [facility]? [facility] 12-13-2024 Telephone encounter Note Called [facility]. Nurse states patient was in the hospital recently and the patient was taken off Cymbalta and the gabapentin was decreased back to 300 mg twice a day. They increased her hydralazine and added blood pressure medications. Nursing is asking if there can be better alternatives to preventing the migraines instead of treating them with Nurtec due to cost. Advised nursing at the [facility] we will have to get her records from the hospital and ask neurology to review. [facility] 12-12-2024 Telephone encounter Note [facility] called in stating Prior to [facility] previous hospitalization she was on plavix. When she returned she was not on it any more. Wanting Queener to review and advise to see if she should still be taking it. Also asking if there is an alternative Neurotec as it is costly. Please call [phone] please ask for 200 bermeo Nurse [facility] 12-04-2024 History of Present illness Narrative Images from the original note were not included. [facility] [address] [place] [id number] Dept: [phone] Dept Visit type: Established : 1945 Reason for Visit: Hospital Follow-up, Congestive Heart Failure, and Atrial Fibrillation Assessment and Plan 1. 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 No current heart failure symptoms and euvolemic on physical exam. -Continue Toprol 100 mg p.o. daily -Continue hydralazine 100 mg p.o. 3 times daily -Continue Imdur 30 mg p.o. daily -Continue spironolactone 25 mg p.o. daily (was resumed by SNF) -Not a candidate for RUBIA/ARB/ARNI/SGLT2i due to renal dysfunction (could consider changing/adding at next office visit) -Not currently requiring diuretic therapy 2. Primary hypertension Assessment & Plan: Goal less than 130/80. Controlled. -Continue Toprol 100 mg p.o. daily -Continue hydralazine 100 mg p.o. 3 times daily -Continue Imdur 30 mg p.o. daily - Continue hydrochlorothiazide 25 mg p.o. daily -Continue spironolactone 25 mg p.o. daily 3. Paroxysmal atrial fibrillation (HCC) Assessment & Plan: Noted to have 2 episodes of nonsustained A-fib while hospitalized. She was not placed on OAC due to low A-fib burden, dementia and debility. Remains in sinus rhythm today. -Continue Toprol 100 mg p.o. daily Orders: - ECG 12 lead - CLINIC PERFORMED 4. Elevated troponin Assessment & Plan: Elevated high-sensitivity troponin of 12- 24. 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 No anginal symptoms. Not a candidate for invasive evaluation due to debility and dementia. -No further workup currently needed 5. Stage 3a chronic kidney disease (HCC) Assessment & Plan: Baseline creatinine 1.2-1.4. Peak creatinine 1.65 and did improve during her hospitalization. -Would continue to monitor 6. Hospital discharge follow-up Follow up in about 6 weeks (around 01/15/2025). Subjective History of dementia, diabetes, hypertension, stroke, HFrEF (ischemic versus Takotsubo cardiomyopathy) She was admitted to [facility] November 2024 with shortness of breath. proBNP elevated at 6596. High-sensitivity troponin - 24. She was seen by Dr. 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 She was diuresed with IV Lasix and placed on GDMT. She was not felt to be a candidate for invasive evaluation due to dementia and debility. She also had 2 episodes of paroxysmal A-fib and was not placed on anticoagulation due to dementia and debility. She presents today for hospital follow-up. Today, she denies, CP, SOB, PND, orthopnea, edema palpitations, syncope. Her son and daughter in law are present with in in the office today. Carline Villarreal Review of Systems Constitutional: Negative for activity change, chills, diaphoresis, fatigue and fever. HENT: Negative for nosebleeds and trouble swallowing. Eyes: Negative for discharge and visual disturbance. Respiratory: Negative for apnea, cough, chest tightness, shortness of breath and wheezing. Cardiovascular: Positive for leg swelling (chronic left ankle swelling). Negative for chest pain and palpitations. Gastrointestinal: Negative for abdominal distention, abdominal pain, blood in stool, diarrhea, nausea and vomiting. Endocrine: Negative for cold intolerance and heat intolerance. Genitourinary: Negative for hematuria. Musculoskeletal: Negative for gait problem and myalgias. Skin: Negative for color change and rash. Neurological: Negative for dizziness, seizures, syncope, speech difficulty, weakness, light-headedness and numbness. Hematological: Does not bruise/bleed easily. Psychiatric/Behavioral: Positive for confusion (dementia). Negative for dysphoric mood. Allergies[1] Current Medications[2] Medical History[3] Social History Tobacco Use Smoking status: Some Days Types: Cigarettes Smokeless tobacco: Not on file Substance Use Topics Alcohol use: Not Currently Surgical History[4] Family History[5] Objective Vitals: 12/04/24 1359 BP: 128/76 BP Location: Right arm Patient Position: Sitting BP Cuff Size: Adult Pulse: 78 Height: 5' 5 (1.651 m) Physical Exam Vitals reviewed. Constitutional: Appearance: Normal appearance. HENT: Head: Normocephalic and atraumatic. Mouth/Throat: Mouth: Mucous membranes are moist. Pharynx: Oropharynx is clear. Eyes: General: No scleral icterus. Extraocular Movements: Extraocular movements intact. Neck: Vascular: No carotid bruit, hepatojugular reflux or JVD. Cardiovascular: Rate and Rhythm: Normal rate and regular rhythm. Pulses: Normal pulses. Heart sounds: Normal heart sounds, S1 normal and S2 normal. No murmur heard. Pulmonary: Effort: Pulmonary effort is normal. Breath sounds: Normal breath sounds. Abdominal: General: Abdomen is flat. Bowel sounds are normal. There is no distension. Palpations: Abdomen is soft. Tenderness: There is no abdominal tenderness. Musculoskeletal: Right lower leg: No edema. Left lower leg: No edema. Skin: General: Skin is warm and dry. Neurological: Mental Status: She is alert. Mental status is at baseline. Comments: Oriented to self only Psychiatric: Attention and Perception: Attention normal. Mood and Affect: Mood normal. Speech: Speech normal. Cognition and Memory: Cognition is impaired. Memory is impaired. Data Reviewed and Summarized EF BP Date Value Ref Range Status 11/14/2024 35 (A) 55 - 100 % Final Review of tests/labs done/ordered within my specialty: EKG in office: Sinus rhythm with PAC and global T wave inversion, similar to prior EKGs 11/13/24 TRANSTHORACIC ECHOCARDIOGRAM (TTE) COMPLETE (CONTRAST/BUBBLE/3D PRN) 11/14/2024 4:07 PM (Final) Interpretation Summary Technically difficult study. Left Ventricle: Left ventricle size is normal. Mildly increased wall thickness. Moderately reduced left ventricular systolic function. EF by 2D Simpsons Biplane is 35%. See diagram for wall motion findings. Grade II diastolic dysfunction with increased LAP. The following segments are akinetic: mid anterior, mid anteroseptal, mid inferoseptal, mid inferior, mid inferolateral, mid anterolateral, apical anterior, apical septal, apical inferior, apical lateral and apex.The following segments are hypokinetic: basal anteroseptal, basal inferoseptal and basal inferior.All other segments are normal. Findings may be consistent with Takotsubo cardiomyopathy vs. CAD, recommend clinical correlation. Right Ventricle: Right ventricle size is normal. Normal systolic function. TAPSE is normal. Aortic Valve: Not well visualized. Thickened cusps. At least moderate (2+) regurgitation, not well visualized on this study. Tricuspid Valve: Moderately elevated RVSP. RVSP is 53 mmHg. Left Atrium: Left atrium size is severely increased (LA volume index >48 mL/m2). Aorta: Normal sized sinuses of Valsalva. Mildly dilated ascending aorta. Ao ascending diameter is 3.6 cm. Mildly dilated aortic arch. Ao arch diameter is 3.6 cm. Compared to study dated December 17, 2023 the LVEF is worse with new wall motion abnormalities. The aortic regurgitation was present, and may be similar to slightly worse. Signed by: Nishant Kaur MD on 11/14/2024 4:07 PM Review of tests/labs done/ordered outside my specialty: Latest Reference Range & Units 11/21/24 04:39 SODIUM 136 - 145 mmol/L 138 POTASSIUM 3.5 - 5.1 mmol/L 3.7 CHLORIDE 98 - 107 mmol/L 104 Carbon Dioxide (CO2) 23 - 31 mmol/L 21 (L) ANION GAP 3 - 13 mmol/L 13 Urea Nitrogen (BUN) 9 - 23 mg/dL 29 (H) Creatinine 0.57 - 1.11 mg/dL 1.17 (H) eGFR >60.0 mL/min/1.73m*2 47.9 (L) GLUCOSE 82 - 115 mg/dL 123 (H) CALCIUM 8.8 - 10.0 mg/dL 8.8 Auto WBC 3.6 - 10.7 10*3/uL 10.2 RBC 3.80 - 5.20 10*6/uL 4.48 HEMOGLOBIN 11.7 - 16.0 g/dL 14.2 HEMATOCRIT 35.0 - 47.0 % 43.4 MCV 77.0 - 99.0 fL 96.9 MCH 26.0 - 34.0 pg 31.7 MCHC 30.5 - 36.0 % 32.7 RDW 11.5 - 15.0 % 15.0 Platelets 140 - 440 10*3/uL 312 Mean Platelet Volume (MPV) 9.0 - 12.7 fL 11.7 Neutrophils Relative 38.0 - 82.0 % 66.8 Lymphocytes Relative 15.0 - 45.0 % 16.6 Monocytes Relative 5.0 - 13.0 % 8.8 Eosinophils Relative 0.0 - 6.0 % 6.9 (H) Basophils Relative 0.0 - 2.0 % 0.4 Absolute Neutrophils 1.8 - 7.5 10*3/uL 6.8 ABSOLUTE LYMPHOCYTES - QUEST 1.0 - 4.3 10*3/uL 1.7 Monocytes Absolute 0.0 - 0.9 10*3/uL 0.9 Eosinophils Absolute 0.0 - 0.5 10*3/uL 0.7 (H) Basophils Absolute 0.0 - 0.2 10*3/uL 0.0 nRBC 0.0 - 2.0 /100 WBCs 0.0 Immature Grans Absolute <0.1 10*3/uL 0.1 (H) Immature Grans % 0.0 - 2.0 % 0.5 (L): Data is abnormally low (H): Data is abnormally high Independent interpretation of tests: I, AGGIE Pickens CNP, furnish ongoing care related to Carline Villarreal single, serious and complex condition(s) HF and Afib. I assume responsibility for the patient's ongoing medical care of this condition. AGGIE Pickens CNP [1] No Known Allergies [2] Current Outpatient Medications: aluminum-magnesium hydroxide-simethicone (Maalox MAX) 400-400-40 MG/5ML suspension, Take 10 mL by mouth every 4 hours as needed for indigestion or heartburn., Disp: , Rfl: busPIRone (Buspar) 5 MG tablet, Take 2.5 mg by mouth 2 times daily., Disp: , Rfl: DULoxetine (Cymbalta) [address] capsule, Take 30 mg by mouth daily. Do not crush or chew., Disp: , Rfl: famotidine (Pepcid) 20 MG tablet, Take 20 mg by mouth daily., Disp: , Rfl: gabapentin (Neurontin) 300 MG capsule, Take 300 mg by mouth 2 times daily., Disp: , Rfl: hydrALAZINE (Apresoline) 100 MG tablet, Take 1 tablet (100 mg) by mouth 3 times daily., Disp: 90 tablet, Rfl: 1 hydroCHLOROthiazide (HYDRODiuril) 25 MG tablet, Take 25 mg by mouth daily., Disp: , Rfl: isosorbide mononitrate ER (Imdur) 30 MG 24 hr tablet, Take 1 tablet (30 mg) by mouth daily. Do not crush or chew., Disp: 30 tablet, Rfl: 1 levothyroxine (Synthroid, Levoxyl) 50 MCG tablet, Take 50 mcg by mouth every morning (before breakfast)., Disp: , Rfl: magnesium hydroxide (Milk of Magnesia) 400 MG/5ML suspension, Take 30 mL by mouth Daily as needed for constipation. If no bm in 3 days, Disp: , Rfl: melatonin 1 MG tablet, Take 3 mg by mouth Nightly., Disp: , Rfl: metoprolol succinate XL (Toprol-XL) 100 MG 24 hr tablet, Take 1 tablet (100 mg) by mouth daily. Do not crush or chew., Disp: 30 tablet, Rfl: 1 oxyCODONE-acetaminophen (Percocet) 5-325 MG tablet, Take 1 tablet by mouth every 8 hours as needed (for pain) for up to 3 days., Disp: 9 tablet, Rfl: 0 Rimegepant Sulfate (Nurtec) 75 MG tablet dispersible, Take 75 mg by mouth Daily as needed., Disp: , Rfl: spironolactone (Aldactone) 25 MG tablet, Take 25 mg by mouth daily., Disp: , Rfl: [3] Past Medical History: Diagnosis Date Diabetes mellitus (HCC) Hypertension Stroke (HCC) [4] No past surgical history on file. [5] No family history on file. documented in this encounter [facility] 12-04-2024 Evaluation + Plan note Associated Problem(s): Stage 3a chronic kidney disease (HCC) Baseline creatinine 1.2-1.4. Peak creatinine 1.65 and did improve during her hospitalization. -Would continue to monitor [facility] 12-04-2024 Miscellaneous Notes Associated Problem(s): Stage 3a chronic kidney disease (HCC) Baseline creatinine 1.2-1.4. Peak creatinine 1.65 and did improve during her hospitalization. -Would continue to monitor Associated Problem(s): Elevated troponin Elevated high-sensitivity troponin of 12-1 24. 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 No anginal symptoms. Not a candidate for invasive evaluation due to debility and dementia. -No further workup currently needed Associated Problem(s): Paroxysmal atrial fibrillation (HCC) Noted to have 2 episodes of nonsustained A-fib while hospitalized. She was not placed on OAC due to low A-fib burden, dementia and debility. Remains in sinus rhythm today. -Continue Toprol 100 mg p.o. daily Associated Problem(s): HTN (hypertension) Goal less than 130/80. Controlled. -Continue Toprol 100 mg p.o. daily -Continue hydralazine 100 mg p.o. 3 times daily -Continue Imdur 30 mg p.o. daily - Continue hydrochlorothiazide 25 mg p.o. daily -Continue spironolactone 25 mg p.o. 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 No current heart failure symptoms and euvolemic on physical exam. -Continue Toprol 100 mg p.o. daily -Continue hydralazine 100 mg p.o. 3 times daily -Continue Imdur 30 mg p.o. daily -Continue spironolactone 25 mg p.o. daily (was resumed by SNF) -Not a candidate for RUBIA/ARB/ARNI/SGLT2i due to renal dysfunction (could consider changing/adding at next office visit) -Not currently requiring diuretic therapy documented in this encounter [facility] 12-04-2024 Evaluation + Plan note Associated Problem(s): Elevated troponin Elevated high-sensitivity troponin of 12-1 24. 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 No anginal symptoms. Not a candidate for invasive evaluation due to debility and dementia. -No further workup currently needed [facility] 12-04-2024 Evaluation + Plan note Associated Problem(s): Paroxysmal atrial fibrillation (HCC) Noted to have 2 episodes of nonsustained A-fib while hospitalized. She was not placed on OAC due to low A-fib burden, dementia and debility. Remains in sinus rhythm today. -Continue Toprol 100 mg p.o. daily [facility] 12-04-2024 Evaluation + Plan note Associated Problem(s): HTN (hypertension) Goal less than 130/80. Controlled. -Continue Toprol 100 mg p.o. daily -Continue hydralazine 100 mg p.o. 3 times daily -Continue Imdur 30 mg p.o. daily - Continue hydrochlorothiazide 25 mg p.o. daily -Continue spironolactone 25 mg p.o. 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 No current heart failure symptoms and euvolemic on physical exam. -Continue Toprol 100 mg p.o. daily -Continue hydralazine 100 mg p.o. 3 times daily -Continue Imdur 30 mg p.o. daily -Continue spironolactone 25 mg p.o. 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 Transportation on site to bulk picker patient. Rosas notified. Report called to [place] at [facility]. No questions at this time. Call placed to patients son, Rosas to notify of bulk picker time. Rosas confirmed that patients dentures and wheelchair are at the facility. No questions at this time. Wound Care consulted for Pressure Injury Prevention. Pt's Troy score= 15 on 11/20 Pt refused assessment of pressure points at this time, stating, I don't have anything wrong with my skin. Attempted to provide education regarding pressure injury prevention, but pt not receptive and continued to state, I don't have anything. Pt currently followed by Wound [facility] group for MASD to bilateral buttocks. For bilateral buttocks MASD assessment please see Wound/Ostomy [facility] progress notes. Prevention Measures in place, including: Pillows/wedges, Heels elevated off bed on pillows, Zinc/Moisture Barrier ointment (ET mix also noted at bedside), Waffle chair cushion (obtain for pt once getting out of bed to chair). Skin Care precaution order set ordered. Dietitian electronic train control technician involved. PT/OT consult in place. Will continue to follow pt. Please secure chat for any questions or concerns. Maribeth Handley RN Noted this shift pt had some some coughing after she ate her lunch and a small emesis. made aware, speech therapy consult placed. Pt reassessed airway and breathing NNO at this time status unchanged from previous assessments. Epic Chat Dr. Nogueira as follows: Patient blood pressure at 19:52 179/89, medicated as prescribed. Reassessed blood pressure at 22:38 177/98. Please evaluate and let me know if you would like to give her another antihypertensive medication. Patient currently resting. Thank you! Epic chat as follows to Dr. Nogueira: Hello! Patient is a DNR CCA on telemetry? Patient verbalizes Take this off clearly pulling off leads every 5 minutes. Refusing to wear. Please consider and evaluate discontinuing telemetry order. Thank you! PT currently Alert to self and time, confused on place. Epic chat as follows to Dr. Nogueira: Good Evening! I see two separate orders for melatonin for this patient. Please verify if both are to be given, total of 6 mg oral melatonin. Thank you! Tele alarm for HR into the 180's. Checked radial pulse 92, and again 86. Leads replaced. Pt HR on monitor now 89. Pt in no distress. No c/o CP, or SOB. Dr. Franz and Dr. Jack notified patient has arrived to floor, room 466 A from ER. documented in this encounter [facility] 11-21-2024 Miscellaneous Notes Discharge med list transmitted to [facility] via [facility] per TCC request. Patient has discharge order in and transport confirmed for 1600 back to [facility]. Facility and bedside nurse updated. Problem: Knowledge Deficit Goal: Patient/family/caregiver demonstrates understanding of disease process, treatment plan, medications, and discharge instructions Outcome: Progressing Problem: Potential for Compromised Skin Integrity Goal: Skin Integrity is Maintained or Improved Outcome: Progressing Patient remains on 4S. Discharge to [facility] cancelled on 11/17 due to low grade fever, tachycardia, and leukocytosis. Blood cultures obtained and are negative. No growth in 48 hours. CM following to assist with discharge back to [facility]. Problem: Knowledge Deficit Goal: Patient/family/caregiver demonstrates understanding of disease process, treatment plan, medications, and discharge instructions Outcome: Progressing Problem: Potential for Compromised Skin Integrity Goal: Skin Integrity is Maintained or Improved Outcome: Progressing Problem: Knowledge Deficit Goal: Patient/family/caregiver demonstrates understanding of disease process, treatment plan, medications, and discharge instructions Outcome: Progressing Problem: Potential for Compromised Skin Integrity Goal: Skin Integrity is Maintained or Improved Outcome: Progressing Problem: Knowledge Deficit Goal: Patient/family/caregiver demonstrates understanding of disease process, treatment plan, medications, and discharge instructions Outcome: Progressing Problem: Potential for Compromised Skin Integrity Goal: Skin Integrity is Maintained or Improved Outcome: Progressing Problem: Potential for Compromised Skin Integrity Goal: Skin Integrity is Maintained or Improved Outcome: Progressing Flowsheets (Taken 11/17/2024 0553) Skin integrity is maintained or improved: Assess and monitor skin integrity Relieve pressure to bony prominences Keep skin clean and dry Encourage use of lotion/moisturizer on skin Avoid shearing Problem: Urinary Incontinence Goal: Perineal skin integrity is maintained or improved Outcome: Progressing Flowsheets (Taken 11/17/2024 0553) Perineal skin integrity is maintained or improved: Assess genitourinary system, perineal skin, labs (urinalysis), and history of incontinence to include past management, aggravating, and alleviating factors Keep skin clean and dry Apply skin protectant Problem: Knowledge Deficit Goal: Patient/family/caregiver demonstrates understanding of disease process, treatment plan, medications, and discharge instructions Outcome: Progressing Problem: Potential for Compromised Skin Integrity Goal: Skin Integrity is Maintained or Improved Outcome: Progressing Goal: Nutritional status is improving Outcome: Progressing Problem: Urinary Incontinence Goal: Perineal skin integrity is maintained or improved Outcome: Progressing Problem: Safety - Adult Goal: Free from fall injury Outcome: Progressing Problem: Discharge Planning Goal: Discharge to home or other facility with appropriate resources Outcome: Progressing Problem: Chronic Conditions and Co-morbidities Goal: Patient's chronic conditions and co-morbidity symptoms are monitored and maintained or improved Outcome: Progressing Patient remains on 4S for ongoing management of congestive heart failure. Anticipate discharge tomorrow back to [facility]. CM following to assist with discharge needs. Problem: Potential for Compromised Skin Integrity Goal: Skin Integrity is Maintained or Improved Outcome: Progressing Problem: Potential for Compromised Skin Integrity Goal: Nutritional status is improving 11/16/2024421 by Yenni Kyle RN Outcome: Progressing Flowsheets (Taken 11/16/2024421) Nutritional status is improving: Monitor and assess patient for malnutrition (ex- brittle hair, bruises, dry skin, pale skin and conjunctiva, muscle wasting, smooth red tongue, and disorientation) 11/16/2024421 by Yenni Kyle RN Outcome: Progressing Flowsheets (Taken 11/16/2024421) Nutritional status is improving: Monitor and assess patient for malnutrition (ex- brittle hair, bruises, dry skin, pale skin and conjunctiva, muscle wasting, smooth red tongue, and disorientation) Problem: Urinary Incontinence Goal: Perineal skin integrity is maintained or improved Outcome: Progressing Flowsheets (Taken 11/16/2024421) Perineal skin integrity is maintained or improved: Assess genitourinary system, perineal skin, labs (urinalysis), and history of incontinence to include past management, aggravating, and alleviating factors Keep skin clean and dry Apply skin protectant Problem: Safety - Adult Goal: Free from fall injury Outcome: Progressing Flowsheets (Taken 11/16/2024421) Free from fall injury: Instruct family/caregiver on patient safety Problem: Chronic Conditions and Co-morbidities Goal: Patient's chronic conditions and co-morbidity symptoms are monitored and maintained or improved Outcome: Progressing Flowsheets (Taken 11/16/2024421) Care Plan - Patient's Chronic Conditions and Co-Morbidity Symptoms are Monitored and Maintained or Improved: Monitor and assess patient's chronic conditions and comorbid symptoms for stability, deterioration, or improvement progressing Problem: Knowledge Deficit Goal: Patient/family/caregiver demonstrates understanding of disease process, treatment plan, medications, and discharge instructions Outcome: Progressing Problem: Potential for Compromised Skin Integrity Goal: Skin Integrity is Maintained or Improved Outcome: Progressing Goal: Nutritional status is improving Outcome: Progressing Problem: Knowledge Deficit Goal: Patient/family/caregiver demonstrates understanding of disease process, treatment plan, medications, and discharge instructions 11/15/2024 030 by Charlene Abad RN Outcome: Progressing 11/15/2024 0159 by Charlene Abad RN Outcome: Progressing Problem: Potential for Compromised Skin Integrity Goal: Skin Integrity is Maintained or Improved 11/15/20242 by Charlene Abad RN Outcome: Progressing 11/15/2024 0159 by Charlene Abad RN Outcome: Progressing Goal: Nutritional status is improving Outcome: Progressing Problem: Urinary Incontinence Goal: Perineal skin integrity is maintained or improved Outcome: Progressing Patient arrives via EMS from [facility] at 76% on room air. EMS placed patient on BIPAP during transport. Patient currently receiving IV zosyn, and vancomycin. Consults to Cardiology, Pulmonology, Palliative and Geriatrics, and PT/OT. Anticipate patient will return to [facility]- return referral sent. No authorization needed to return. CM following to assist with discharge needs. Family Communication Number Called: [phone] Name of Designated Family Outpatient Coder: Rosas Villarreal son/HCPOA I left a HIPPA compliant message at the number listed above Family Outpatient Coder Updated on the Following: N/A Referral placed to return back to [facility] via [facility] per TCC request. Await review and response regarding ability to accept. TCC notified. Images from the original note were not included. [facility] Palliative Care Transitions of Care Note Carline Villarreal : 1945 ADMIT DATE: 11/13/2024 DISCHARGE DATE: TBD PRIMARY CARE PHYSICIAN: Evi Guevara CODE STATUS: DNR-CCA DISCHARGE DIAGNOSES: Principal Problem: Pneumonia of both lower lobes due to infectious organism HOSPITAL COURSE: Carline Villarreal is a 78 y.o. female from SNF with PMHx of HFpEF, DM 2, Stroke with left hemiparesis, hypertension who was admitted to [facility] on 11/13 for SOB. Patient reportedly had saturation of 76 % on RA at SNF. When EMS first arrived, she was placed on BIPAP during transport to ED. Patient was started on IV antibiotics for pneumonia. Palliative care consulted for goals of care. Acute hypoxic/hypercapnic respiratory failure - improved, patient off oxygen now - per pulmonology notes likely secondary to acute decompensated congestive heart failure which clinically has improved after brisk diuresis Acute on chronic HFpEF - patient volume overloaded on admission - transitioned to hydrochlorothiazide from IV lasix Atrial Fibrillation - nonsustained, 2 episodes, asymptomatic - patient is not a candidate for OAC - on metoprolol 50 mg po BID - per cardiology notes she is not a candidate for invasive evaluation and management due to significant underlying dementia/debility Dementia - patient's mentation better than yesterday, on baseline behaviors - Geriatrics on case Bipolar Disorder/Anxiety - on Duloxetine 30 mg daily, Buspar 2.5 mg BID Stroke with left hemiparesis - PT, OT on case Chronic pain - patient on Oxycodone-Acetaminophen 5/325 mg 1 tab every 8 hours as needed, Gabapentin 600 mg BID at facility - Gabapentin changed to 300 mg BID due to EDWIGE CODE STATUS DISCUSSIONS: Carline Villarreal lacks capacity for medical decision-making due to dementia and encephalopathy. -legal surrogate decision maker is sonRosas (Phone: [phone]) - patient has 2 children 1 son and 1 daughter - met with patient and son Rosas this am , patient was more alert, oriented today AxOX2-3 - discussed goals, discussed hospice - Discussed the medicare hospice benefit, explained it will provide nurses, aides, massage therapy, spiritual care, social work and physicians. Discussed comfort medications and supplies will be included. Discussed goals of comfort focused care. Discussed that family will have number to call hospice 24 hours per day for concerns, that they can call hospice instead of 911. Reviewed that if patients require inpatient admission for uncontrolled symptoms they can be directly admitted to Palliative Care and Hospice Unit. - Rosas was appreciative of the information, stated at this time they want patient to go back to [facility] for PT/OT - Rosas stated that they are not ready fro hospice - provided empathetic listening and emotional support to patient and Rosas - patient already has DNRCCA established - discussed with primary team attending Dr. Mayfield, bedside RN - since family has clearly established goals for patient, our team will sign off at this time SYMPTOM MANAGEMENT MEDICATIONS: - not prescribed by our team DISPOSITION: TBD Follow up with PCP on patient to call. If appointment not scheduled, patient should be scheduled within 1-2 weeks. Reason for Outpatient/Home/ECF Palliative Care follow-up: N/A Opiate Prescribing - not prescribed by our team SIGNED: Vickie Parra MD 11/14/2024, 10:06 AM While rounding asked to assess pt for tachycardia 100-180. VS stable no c/o CP. EKG changes. Dr. Franz and Dr. Hinton notified via secure chat. See cardiology note Problem: Knowledge Deficit Goal: Patient/family/caregiver demonstrates understanding of disease process, treatment plan, medications, and discharge instructions Outcome: Not Progressing Problem: Urinary Incontinence Goal: Perineal skin integrity is maintained or improved Outcome: Not Progressing Problem: Knowledge Deficit Goal: Patient/family/caregiver demonstrates understanding of disease process, treatment plan, medications, and discharge instructions Outcome: Not Progressing Problem: Urinary Incontinence Goal: Perineal skin integrity is maintained or improved Outcome: Not Progressing documented in this encounter [facility] 11-21-2024 Note Discharge Summary Carline Villarreal : 1945 ADMIT DATE: 11/13/2024 DISCHARGE DATE: 11/21/2024 PRIMARY CARE PHYSICIAN: Evi Guevara VISIT STATUS: inpatient CODE STATUS: DNR-CCA DISCHARGE DIAGNOSES: HFrEF Demand ischemia Altered mental status Pafib Aortic regurgitation EDWIGE Hypokalemia Takotsubo cardiomyopathy HTN DM2 with hyperglycemia CKD stage 3 Leukocytosis Dementia BPD Hypothyroidism GABRIELE Pressure ulcers on buttocks, POA Class 3 obesity HOSPITAL COURSE: 78 year old presented with increasing SOB. She was thought to be volume overloaded and given IV lasix. She was also initially given IV solumedrol and IV antibiotics. She was evaluated by [facility] and did not need ICU. She was seen by Cardiology, Pulmonology, Geriatrics, Palliative Care and PT/OT/TECHNICAL ASST. The antibiotics and steroids were stopped and she was continued on IV diuresis. She did have some EDWIGE. She developed a fever and tachycardia and cultures/infectious work up was done but unrevealing. She was thought to need SNF. Arrangements were made and she was discharged. SIGNIFICANT DIAGNOSTIC STUDIES: CXR, CT head, echocardiogram CONSULTANTS: [facility], Pulmonology, Cardiology, Palliative Care, Geriatrics, Wound Care RECOMMENDED NEXT STEPS: [facility] back [facility]. Follow up with Cardiology on 12/04/2024. Physical Exam: Vitals: BP (!) 161/89 (BP Location: Right arm, Patient Position: Lying) Pulse 79 Temp 36.3 ?C (97.4 ?F) (Temporal) Resp 18 Ht 5' 5 (1.651 m) Wt 210 lb (95.3 kg) SpO2 98% BMI 34.95 kg/m? Pulse Ox: SpO2 Av.5 % Min: 98 % Max: 99 % General appearance: alert, cooperative and no distress Mental Status: oriented to person and normal affect Lungs: coarse breath sounds bilaterally, normal effort Heart: regular rate and rhythm, + murmur Abdomen: soft, nontender, nondistended, bowel sounds present, no masses Extremities: + edema, no redness, no tenderness in the calves Skin: no gross lesions, rashes LABS: CBC: Recent Labs 11/19/2422211/20/2430811/21/24 0439 WBC 13.3* 12.8* 10.2 RBC 4.14 4.48 4.48 HGB 13.3 14.3 14.2 HCT 39.8 43.7 43.4 MCV 96.1 97.5 96.9 RDW 14.5 14.8 15.0 PLT 248 279 312 BMP: Recent Labs 11/19/2422211/20/2430811/21/24438 NA 138 138 138 K 3.3* 3.6 3.7 CL 106 106 104 CO2 20* 21* 21* BUN 59* 44* 29* CREATININE 1.60* 1.29* 1.17* GLUCOSE 142* 140* 123* CALCIUM 8.3* 8.7* 8.8 ANIONGAP 12 11 13 DISCHARGE MEDICATIONS: Medication List START taking these medications enoxaparin 40 MG/0.4ML solution prefilled syringe Commonly known as: Lovenox Inject 0.4 mL (40 mg) under the skin every 24 hours for 10 days. isosorbide mononitrate ER 30 MG 24 hr tablet Commonly known as: Imdur Take 1 tablet (30 mg) by mouth daily. Do not crush or chew. Start taking on: November 22, 2024 metoprolol succinate XL 100 MG 24 hr tablet Commonly known as: Toprol-XL Take 1 tablet (100 mg) by mouth daily. Do not crush or chew. Start taking on: November 22, 2024 CHANGE how you take these medications hydrALAZINE 100 MG tablet Commonly known as: Apresoline Take 1 tablet (100 mg) by mouth 3 times daily. What changed: medication strength how much to take when to take this reasons to take this CONTINUE taking these medications aluminum-magnesium hydroxide-simethicone 400-400-40 MG/5ML suspension Commonly known as: Maalox MAX busPIRone 5 MG tablet Commonly known as: Buspar DULoxetine [address] capsule Commonly known as: Cymbalta famotidine 20 MG tablet Commonly known as: Pepcid gabapentin 300 MG capsule Commonly known as: Neurontin levothyroxine 50 MCG tablet Commonly known as: Synthroid, Levoxyl magnesium hydroxide 400 MG/5ML suspension Commonly known as: Milk of Magnesia melatonin 1 MG tablet oxyCODONE-acetaminophen 5-325 MG tablet Commonly known as: Percocet Take 1 tablet by mouth every 8 hours as needed (for pain) for up to 3 days. SUMAtriptan 50 MG tablet Commonly known as: Imitrex STOP taking these medications acetaminophen 325 MG tablet Commonly known as: Tylenol atorvastatin 40 MG tablet Commonly known as: Lipitor bisacodyl 5 MG EC tablet Commonly known as: Dulcolax cloNIDine 0.2 MG tablet Commonly known as: Catapres clopidogrel 75 MG tablet Commonly known as: Plavix escitalopram 10 MG tablet Commonly known as: Lexapro ibuprofen 200 MG tablet lisinopril 5 MG tablet metoprolol tartrate 50 MG tablet Commonly known as: Lopressor polyethylene glycol (PEG) 3350 17 g packet Commonly known as: Miralax traMADol 50 MG tablet Commonly known as: Ultram Where to Get Your Medications These medications were sent to [facility] [address] [place] [id number] Hours: Wednesday to Wednesday 10 am to 6 pm enoxaparin 40 MG/0.4ML solution prefilled syringe hydrALAZINE 100 MG tablet isosorbide mononitrate ER 30 MG 24 hr tabl (more content not included)... [facility] 11-21-2024 History of Present illness Narrative Images from the original note were not included. OCCUPATIONAL THERAPY [facility] Treatment Note Name/MRN: Carline Villarreal ([id number]) Date of : 1945 Age: 78 y.o. Room/Bed: [facility] A Visit #: 4 out of 7 Discharge Recommendation: Assisted Facility Equipment Needed: No Assessment Pt is making gradual progress with OT this date with focus on ADLs and standing bal with pt overall at a min A to max A level with pt limited from decrease strength and bal. Pt remains well below baseline and is a high fall risk. Pt would benefit from ongoing skilled OT tx with OT recommend SNF level therapy at discharge. Subjective Pt supine in bed upon arrival and agreeable to OT tx. Pain: Pt denies any current pain. Medical Precautions: No active isolations Proper PPE donned/doffed in accordance with facility standards. Fall Risk: Oleary Fall Risk Score: 60 (High Risk) Precautions/Restrictions: Fall Precautions Decreased (L) LE WB and increased tone in standing, dementia Family/Caregiver Present: none Objective ADLs LE Dressing: Max Assist Grooming: Min Assist Pt training for donning socks with max A to dep to complete with cues for safety and tech with difficulty reaching to manage. Pt completed grooming while seated with setup with one hand techs due to LUE weakness. Bed Mobility Supine to sit: Max Assist Sit to supine: Max Assist HOB Elevated Use of bed rail(s) Assist provided for trunk and BLE Transfers/Mobility Sit to stand: Max Assist Stand to sit: Max Assist Standing balance: Max Assist Pt training for transfers to FWW with cues for tech and safety with pt needing to pull up on walker to complete. Pt completed static standing with heavy max A and retro lean noted with pt only able to mounika 15 sec intervals. Pt completed sitting with functional tasks with SBA. Device(s) used: Front wheeled walker Cognition - WFL Plan Continue acute OT per plan of care. Safety/Education Safety Safety Devices in place: All fall risk precautions in place, call light within reach, left in bed, bed alarm in place, gait belt, patient at risk for falls, and nurse notified Restraints: No Education Education Given To: patient Education Provided: Precautions, ADL Adaptive Strategies, Transfer Training, and Fall Prevention Education Education Method: Verbal and Demonstration Barriers to Learning: None Education Outcome: Verbalized Understanding and Continued Education Needed AM-PAC AM-PAC Inpatient Daily Activity Raw Score: 13 ADL Inpatient CMS G-Code Modifier: CL Goals Patient Stated Goal: to get stronger Encounter Problems Encounter Problems (Active) Dressing Upper Extremities Patient will complete upper body dressing SBA (Not Addressed) Start: 11/15/24 Expected End: 11/25/24 Dressings Lower Extremities Patient will dress lower body MIN A (Slowly Progressing) Start: 11/15/24 Expected End: 11/25/24 Mobility Patient will demonstrate functional mobility with MOD A and FWW (Not Addressed) Start: 11/15/24 Expected End: 11/25/24 Therapeutic Exercise Pt will demo good participation in BUE exercises to increase endurance and strength for participation in ADLs and functional transfers / bed mobility. (Not Addressed) Start: 11/15/24 Expected End: 11/25/24 Toileting Patient will complete toileting tasks at bedside commode with mod assist. (Not Addressed) Start: 11/15/24 Expected End: 11/25/24 Transfers Patient will complete functional transfer with rolling walker with mod assist in order to prepare for ambulation. (Progressing) Start: 11/15/24 Expected End: 11/25/24 Patient will perform bed mobility with supervision in order to improve independence and prepare for out of bed mobility. (Progressing) Start: 11/15/24 Expected End: 11/25/24 Therapy Time Individual Co-treatment Time In 1338 Time Out 1402 Minutes 24 Timed Code Treatment Minutes: 24 Minutes (1 ADL, 1 ACT) RASHMI Deal Cosigned by Yazan Wells OT at 11/21/2024 3:41 PM EDT Images from the original note were not included. Speech-Language Pathology SPEECH LANGUAGE PATHOLOGY [facility] Dysphagia Treatment Note Patient Name: Carline Villarreal Evaluation Date: 11/21/2024 Date of : 1945 Admission Date: 11/13/2024 10:39 AM Age: 78 y.o. Room[facility]Bed: [facility] A Subjective Patient alert and cooperative. Seen upright in bed. Answers all basic questions with strong vocal quality. Follows all basic commands. No visitors at bedside. Spoke with RN Desire who cleared pt for treatment. Current Diet: Dietary Orders (From admission, onward) Start Ordered 11/18/24 1156 Adult diet Dysphagia - Pureed Diet effective now Question: Diet type Answer: Dysphagia - Pureed 11/18/24 1155 Aspiration Precautions: - Upright positioning for all PO intake - Slow rate of intake - Small bites/sips - Alternate solid and liquids Oxygen: Oxygen Therapy: None (Room air) Pain: RN managing pain. PPE Worn: gloves Objective & Assessment Dysphagia Treatment # of Activities: 1 Dysphagia Activity 1: Assess dietary tolerance Patient consumes thin liquids via cup edge with timely swallow and no change in vocal quality or cough is noted. When consuming puree, soft+ bite sized, and easy to chew solids, patient presents with adequate bolus management and mastication. Minimal oral residue is noted with easy to chew solids but, clears with a liquid wash. Patients swallow presents timely and effective for all solids. Patient does present edentulous at bedside, this does prolong her mastication, but her mastication still presents complete and effective. Plan & Recommendations Plan: ST to follow safe and effective dietary tolerance. Continue acute TECHNICAL ASST therapy per initial plan of care and established goals. Recommend Easy to chew solids and Thin liquids and meds as tolerated and the following precautions: - Upright positioning for all PO intake - Slow rate of intake - Small bites/sips - Alternate solid and liquids D/C Recommendations: to be determined Education Education Given: swallowing strategies, diet recommendations Given To: patient and RN Response: verbalizes understanding Goals Patient Stated Goal: To watch tv. Encounter Problems Encounter Problems (Active) Swallowing Patient will tolerate the least restrictive diet consistency to allow for safe consumption of daily meals (Progressing) Start: 11/17/24 Expected End: 11/24/24 Patient will demonstrate safe swallowing Intervention/techniques (Progressing) Start: 11/17/24 Expected End: 11/24/24 Therapy Time TECHNICAL ASST Individual Minutes Time In: 0920 Time Out: 0930 Minutes: 10 Jasmyn Vines CCC-TECHNICAL ASST [facility] Geriatric Medicine Inpatient Consult Service Admission Date: 11/13/2024 Assessment Principal Problem: Acute exacerbation of chronic heart failure (HCC) Plan Acute Metabolic Encephalopathy --Etiology likely EDWIGE/uremia (improving), possible infection, hospital environment, CHF exacerbation --Leukocytosis resolved. UA not obtained. --Continue to treat underlying cause --Encourage PO intake, time up in chair, family visits, and sleep hygiene --If agitated, assess for and consider treating for pain --QTc= 566 --Avoid antipsychotics due to prolonged qtc. --Continue scheduled melatonin at HS --Monitor for constipation/urinary retention - last BM 11/20 --Possible medication contributions: gabapentin, percocet (last received 11/15) --11/21: Improving. Continue to monitor for signs/symptoms of infection. Dementia --Lives in [facility] facility --History of stroke with worsening cognitive decline. --Try to avoid anticholinergic medications --11/21: May still not be at baseline. Continue plan. Debility --Contributing factors include stroke, Dementia, Chronic pain, heart failure --nathan lift and use of wheelchair at baseline --PT and OT --Anticipate return to [facility] when medically stable --11/21: Stable. Anticipate SNF level at discharge. Bipolar Disorder Anxiety --takes Lexapro 5mg daily at facility - was being weaned there. We did not restart in hospital. Continue off medication at this time, especially in setting of prolonged qtc --Continue Duloxetine 30mg daily --Continue Buspar 2.5mg BID (being weaned at facility) --11/21: Stable. Recommend NOT resuming Lexapro at discharge. Chronic pain --Takes Oxycodone-Acetaminophen 5/325 mg 1 tab every 8 hours as needed at facility. Takes 1 tab every few days. Currently ordered. --Home dose of Gabapentin 600mg BID. --11/16: Gabapentin was increased from 300 mg BID to 400 mg BID --11/17: Gabapentin lowered to 200 mg BID due to EDWIGE. --11/20: EDWIGE resolved. Gabapentin increased back to 300 mg BID. --11/21: Continue Gabapentin 300mg BID. Appears to be tolerating today. If she continues to tolerate this dose and renal function is stable, then recommend she be discharged on the 300 mg BID. OK to discharge to SNF from geriatric perspective once cleared by primary Follow-up: will follow with you Subjective Chief Complaint: I am at the group home Geriatrics consulted for confusion restless with underlying dementia with prolonged qtc HPI- The patient is known to me. 78 y.o. year-old female with past medical history of dementia, cerebral vascular disease (with left sided weakness), hypertension, CKD, bipolar disorder, hypothyroidism, gout, migraines who was admitted to acute care from alf care on 11/13/24 for shortness of breath/cough/hypoxia. Diagnosed with acute hypoxic and hypercapnic respiratory failure due to acute CHF. Cardiology following. ECHO 11/14 with EF 35%. Findings consistent with Takotsubo vs CAD. Developed EDWIGE. She has been dealing with delirium. Developed fever / and tachycardia which improved. Has had Leukocytosis. Blood cultures negative. UA with reflex to urine culture ordered to be obtained. Labs today: WBC 10.2 Hgb 14.2 Na 138 K 3.7 BUN 29 creat 1.17 Interval History: Remains on telemetry. -Patient watching TV. She states she is in the group home. States she is here to have fun. Reports she did not eat breakfast. Reports pain is not bad. -Nursing reports patient is more alert. Took meds whole without difficulty. No overnight events. They have been unable to obtain urine due to incontinence. Primary decided not to straight cath. Seen by PT. Bed exercises. Recommending short term SNF for rehab. Review of Systems Reason unable to perform ROS: limited due to Dementia. Constitutional: Negative for fatigue. Respiratory: Negative for shortness of breath. Cardiovascular: Negative for chest pain. Gastrointestinal: Negative for abdominal pain. Genitourinary: Negative for dysuria. Musculoskeletal: Negative for arthralgias. Psychiatric/Behavioral: Negative for sleep disturbance. Objective BP (!) 161/89 (BP Location: Right arm, Patient Position: Lying) Pulse 79 Temp 36.3 C (97.4 F) (Temporal) Resp 18 Ht 5' 5 (1.651 m) Wt 210 lb (95.3 kg) SpO2 98% BMI 34.95 kg/m Intake/Output Summary (Last 24 hours) at 11/21/2024 0854 Last data filed at 11/20/2024 1729 Gross per 24 hour Intake 360 ml Output -- Net 360 ml Wt Readings from Last 3 Encounters: 11/14/24 210 lb (95.3 kg) 12/17/23 205 lb (93 kg) Current Medications[1] Physical Exam Vitals reviewed. Constitutional: General: She is not in acute distress. Comments: Alert, sitting up in bed watching TV HENT: Head: Normocephalic and atraumatic. Cardiovascular: Rate and Rhythm: Normal rate. Rhythm irregular. Pulmonary: Effort: Pulmonary effort is normal. No respiratory distress. Breath sounds: Normal breath sounds. No decreased breath sounds. Abdominal: General: There is no distension. Palpations: Abdomen is soft. Tenderness: There is no abdominal tenderness. There is no guarding or rebound. Musculoskeletal: Right lower leg: No edema. Left lower leg: No edema. Neurological: Mental Status: She is alert. She is disoriented. Motor: Weakness (left side weakness) present. Comments: Follows commands Psychiatric: Mood and Affect: Mood normal. Cognition and Memory: Cognition is impaired. Memory is impaired. Labs and Imaging: Recent Results (from the past 24 hours) POCT glucose meter Collection Time: 11/20/24 11:15 AM Result Value Ref Range Glucose 137 (H) 70 - 100 mg/dL POCT glucose meter Collection Time: 11/20/24 4:29 PM Result Value Ref Range Glucose 131 (H) 70 - 100 mg/dL POCT glucose meter Collection Time: 11/20/24 7:57 PM Result Value Ref Range Glucose 167 (H) 70 - 100 mg/dL CBC auto differential Collection Time: 11/21/24 4:39 AM Result Value Ref Range Auto WBC 10.2 3.6 - 10.7 10*3/uL RBC 4.48 3.80 - 5.20 10*6/uL Hemoglobin 14.2 11.7 - 16.0 g/dL Hematocrit 43.4 35.0 - 47.0 % MCV 96.9 77.0 - 99.0 fL MCH 31.7 26.0 - 34.0 pg MCHC 32.7 30.5 - 36.0 % RDW 15.0 11.5 - 15.0 % Platelets 312 140 - 440 10*3/uL MPV 11.7 9.0 - 12.7 fL nRBC 0.0 0.0 - 2.0 /100 WBCs Neutrophils Relative 66.8 38.0 - 82.0 % Lymphocytes Relative 16.6 15.0 - 45.0 % Monocytes Relative 8.8 5.0 - 13.0 % Eosinophils Relative 6.9 (H) 0.0 - 6.0 % Basophils Relative 0.4 0.0 - 2.0 % Immature Grans % 0.5 0.0 - 2.0 % Neutrophils Absolute 6.8 1.8 - 7.5 10*3/uL Lymphocytes Absolute 1.7 1.0 - 4.3 10*3/uL Monocytes Absolute 0.9 0.0 - 0.9 10*3/uL Eosinophils Absolute 0.7 (H) 0.0 - 0.5 10*3/uL Basophils Absolute 0.0 0.0 - 0.2 10*3/uL Immature Grans Absolute 0.1 (H) <0.1 10*3/uL Basic metabolic panel Collection Time: 11/21/24 4:39 AM Result Value Ref Range SODIUM 138 136 - 145 mmol/L POTASSIUM 3.7 3.5 - 5.1 mmol/L CHLORIDE 104 98 - 107 mmol/L CARBON DIOXIDE 21 (L) 23 - 31 mmol/L UREA NITROGEN 29 (H) 9 - 23 mg/dL CREATININE 1.17 (H) 0.57 - 1.11 mg/dL GLUCOSE 123 (H) 82 - 115 mg/dL CALCIUM 8.8 8.8 - 10.0 mg/dL ANION GAP 13 3 - 13 mmol/L eGFR 47.9 (L) >60.0 mL/min/1.73m*2 POCT glucose meter Collection Time: 11/21/24 7:46 AM Result Value Ref Range Glucose 123 (H) 70 - 100 mg/dL Lab Results Component Value Date TSH 3.36 11/15/2024 Lab Results Component Value Date [id number] 310 11/15/2024 No results found for: VITD25 Reviewed: allergies, previous encounters, active problem lists, medications, and labs [1] Current Facility-Administered Medications: acetaminophen (Tylenol) tablet 650 mg, 650 mg, Oral, q6h PRN, 650 mg at 11/19/242034 OR acetaminophen (Tylenol) suppository 650 mg, 650 mg, Rectal, q6h PRN, Dominguez Franz MD aluminum & magnesium hydroxide-simethicone (Mylanta) 200-200-20 MG/5ML oral suspension 10 mL, 10 mL, Oral, q4h PRN, Dominguez Franz MD kimombe-veaypbmbzyyon-lgqnuakz (Excedrin Migraine) 250-250-65 MG per tablet 2 tablet, 2 tablet, Oral, q8h PRN, Dominguez Franz MD, 2 tablet at 11/19/24 0624 busPIRone (Buspar) tablet 2.5 mg, 2.5 mg, Oral, BID, Dominguez Franz MD, 2.5 mg at 11/20/242056 dextrose 5 % infusion, 100 mL/hr, IntraVENous, PRN, Dominguez Franz MD dextrose 50 % solution 12.5 g, 12.5 g, IntraVENous, PRN, Dominguez Franz MD DULoxetine (Cymbalta) DR capsule 30 mg, 30 mg, Oral, Daily, Dominguez Franz MD, 30 mg at 11/20/24923 enoxaparin (Lovenox) syringe 40 mg, 40 mg, SubCUTAneous, Daily, Dominguez Franz MD, 40 mg at 11/20/242055 famotidine (Pepcid) tablet 20 mg, 20 mg, Oral, Daily, Dominguez Franz MD, 20 mg at 11/20/24923 gabapentin (Neurontin) capsule 300 mg, 300 mg, Oral, BID, Vicki Caba MD, 300 mg at 11/20/242056 glucagon (human recombinant) injection 1 mg, 1 mg, IntraMUSCular, PRN, Dominguez Franz MD glucose oral gel 15 g, 15 g, Oral, PRN, Dominguez Franz MD hydrALAZINE (Apresoline) tablet 100 mg, 100 mg, Oral, TID, Hammad Hinton MD, 100 mg at 11/20/242055 hydrALAZINE (Apresoline) tablet 25 mg, 25 mg, Oral, q8h PRN, Dominguez Franz MD, 25 mg at 11/16/242122 Insulin Lispro (Humalog) injection 0-12 Units, 0-12 Units, SubCUTAneous, TID WC, 2 Units at 11/20/24922 AND Insulin Lispro (Humalog) injection 0-12 Units, 0-12 Units, SubCUTAneous, Nightly, Dominguez Franz MD, 2 Units at 11/20/242056 ipratropium-albuterol (Duo-Neb) 0.5-2.5 mg/3 mL nebulizer solution 3 mL, 3 mL, Nebulization, 4x daily PRN, Dominguez Franz MD, 3 mL at 11/17/249 isosorbide mononitrate ER (Imdur) 24 hr tablet 30 mg, 30 mg, Oral, Daily, Hammad Hinton MD, 30 mg at 11/20/24 0924 labetalol (Normodyne,Trandate) injection 10 mg, 10 mg, IntraVENous, q6h PRN, Gordo Nogueira MD, 10 mg at 11/17/24 0000 levothyroxine (Synthroid, Levoxyl) tablet 50 mcg, 50 mcg, Oral, qAM AC, Dominguez Franz MD, 50 mcg at 11/21/24 0536 lidocaine (Xylocaine) 2 % mouth solution 15 mL, 15 mL, Mouth/Throat, q3h PRN, Dominguez Franz MD [Held by provider] lisinopril tablet 5 mg, 5 mg, Oral, Daily, Hammad Hinton MD, 5 mg at 11/17/24 0853 magnesium hydroxide (Milk of Magnesia) 400 MG/5ML suspension 30 mL, 30 mL, Oral, Daily PRN, Dominguez Franz MD melatonin tablet 3 mg, 3 mg, Oral, Nightly, Dominguez Franz MD, 3 mg at 11/20/242055 metoprolol succinate XL (Toprol-XL) 24 hr tablet 100 mg, 100 mg, Oral, Daily, Ayana Pascual PA-C, 100 mg at 11/20/24923 naloxone (Narcan) injection 0.4 mg, 0.4 mg, IntraVENous, q5 min PRN, Dominguez Franz MD ondansetron ODT (Zofran-ODT) disintegrating tablet 4 mg, 4 mg, Oral, q8h PRN OR ondansetron (Zofran) injection 4 mg, 4 mg, IntraVENous, q6h PRN, Dominguez Franz MD oxyCODONE-acetaminophen (Percocet) 5-325 MG per tablet 1 tablet, 1 tablet, Oral, q8h PRN, Dominguez Franz MD, 1 tablet at 11/15/24 3090 phenol (Chloraseptic) 1.4 % mouth/throat spray 1 spray, 1 spray, Mouth/Throat, q2h PRN, Dominguez Franz MD polyethylene glycol (PEG) 3350 (Miralax) packet 17 g, 17 g, Oral, Daily PRN, Dominguez Franz MD stomahesive in petrolatum (ET Mix), , Topical, q8h, AGGIE Valenzuela CNP, Given at 11/21/24 0537 stomahesive in petrolatum (ET Mix), , Topical, PRN, AGGIE Valenzuela CNP Hospitalist Progress Note 11/20/[id number]: Please page me ([phone]) for patient care issues. [phone]: Please page [facility] Hospitalist for any issues. Subjective: Admit Date: 11/13/2024 PCP: Evi Guevara Room#: B4-466/[id number] Annamaria Villarreal is a 78 y.o. female who presents with Acute exacerbation of chronic heart failure (HCC) Interval History: 78-year-old female patient is admitted with acute on chronic CHF. Cardiology is consulted, echo revealed 35% EF. Echo is consistent with Takotsubo, and it was decided that she would not be a candidate for invasive treatment, given her age and dementia. On Wednesday her discharge was held because of leukocytosis and tachycardia, over the weekend urine sample was not obtained. Chest x-ray was noted with mild pulmonary vascular congestion, discontinued hydrochlorothiazide and spironolactone because of EDWIGE. Today she is much more alert and the speech is intelligible. Pulmonology service was consulted because of acute hypoxic respiratory failure which seems to have improved with diuresis Denies any chest pain, shortness of breath, nausea female fevers chills Adult diet Dysphagia - Pureed 24HR INTAKE/OUTPUT: Intake/Output Summary (Last 24 hours) at 11/20/2024 1633 Last data filed at 11/20/2024 1256 Gross per 24 hour Intake 60 ml Output -- Net 60 ml LABS: CBC: Recent Labs 11/18/24 0537 11/19/24 0223 11/20/24 0309 WBC 12.2* 13.3* 12.8* RBC 4.05 4.14 4.48 HGB 12.7 13.3 14.3 HCT 39.1 39.8 43.7 MCV 96.5 96.1 97.5 RDW 14.2 14.5 14.8 PLT 231 248 279 BMP: Recent Labs 11/18/24 0537 11/19/24 0223 11/20/24 0309 NA 144 138 138 K 2.9* 3.3* 3.6 CL 108* 106 106 CO2 23 20* 21* BUN 68* 59* 44* CREATININE 1.76* 1.60* 1.29* GLUCOSE 168* 142* 140* CALCIUM 8.1* 8.3* 8.7* ANIONGAP 13 12 11 LIVER PROFILE: No results for input(s): AST, ALT, BILITOT, ALKPHOS, PROT in the last 72 hours. No lab exists for component: LABALBU PT/INR: No results for input(s): PROTIME, INR in the last 72 hours. CARDIAC ENZYMES: No results for input(s): TROPONINI in the last 72 hours. Procalcitonin: No results found for: PROCAL @RISRSLTSPECIALTY@ Objective: Vitals: BP (!) 176/81 Pulse 85 Temp 36.1 C (97 F) (Temporal) Resp 16 Ht 5' 5 (1.651 m) Wt 210 lb (95.3 kg) SpO2 99% BMI 34.95 kg/m Pulse Ox: SpO2 Av % Min: 99 % Max: 99 % Supplemental O2: O2 Flow Rate (L/min): 3 L/min 11/20/2024 General appearance: Awake alert oriented x 1, appears to be in no distress Cardiovascular: S1, S2, regular rhythm, no murmurs gallops or rubs Respiratory: Diminished breath sounds bilaterally, no wheezing or rhonchi Abdomen: Benign, positive bowel sounds, soft, nontender Musculoskeletal: No edema, no calf tenderness. Skin: No rash or lesions Neurological: Awake alert oriented x 1, no acute motor or sensory deficits Medications: Continuous Meds[1] Scheduled Meds[2] PRN Meds[3] Assessment Acute on chronic heart failure with reduced ejection fraction Moderate aortic valve regurgitation Acute kidney injury-creatinine increased to 2.2, holding lisinopril, hydrochlorothiazide and spironolactone, creatinine today is 1.2 Sepsis syndrome, ruled out Takotsubo cardiomyopathy versus CAD, cardiology service following and they had added spironolactone, lisinopril initially but held them because of EDWIGE Type 2 DM with hyperglycemia Uncontrolled hypertension -holding lisinopril , added hydralazine delirium symptoms with underlying dementia-she also lacks capacity for medical decision making, geriatric services following OHS/GABRIELE at bedtime bipap Bilateral pressure ulcers on buttocks- POA Episodes of nonsustained atrial fibrillation -, rate control with metoprolol and may increase to 100 mgs bid if needed Chronic problems Bipolar disorder CKD stage III with creatinine at baseline of 1.3-1.5 , today creatinine at 1.6, EDWIGE RULED OUT Anxiety with depressive symptoms-continue BuSpar Hx CVA with left sided sequelae Hypothyroid-continue levothyroxine Obesity class 2 Hx gout Hx migraines Insomnia Plan Reviewed CBC BMP and ordered CBC BMP in a.m. Discussed with palliative service and the family is not ready for hospice, already DNR CCA, palliative service signed off Ordered urine analysis that was not done on Wednesday Speech therapy recommends modified diet Discussed with geriatric service and continue gabapentin at 300 mg twice daily DC plans to [facility] if she remains medically stable, so far blood cultures are negative and she is off of antibiotics -increase activity Diet Adult diet Dysphagia - Pureed DVT Prophylaxis [x] Lovenox, [] Heparin, [] SCDs, [] Ambulation [] Already on Anticoagulation GI Prophylaxis [] PPI, [] H2 Liana, [] Carafate, [] Diet/Tube Feeds Code Status DNR-CCA Disposition Patient requires continued admission due to congestive heart failure MDM [] Low, [] Moderate,[x] High Patient's risk as above Total time spent (which include face to face and non face to face encounters) 55 minutes Toxic drug monitoring/narrow therapeutic index drug monitoring : # Drug name : Enoxaparin # Route administered : Subcutaneous # Method of monitoring : Daily CBC Extended Emergency Contact Information Primary Emergency Contact: Rosas Kwon Mobile Relation: Son Secondary Emergency Contact: Nicolette Ren Mobile Relation: Sister Advance Directive: DNR-CCA Discharge planning: Transfer to SNF once precertification is available Ni Sam MD Division of Hospitalist Medicine [place] [facility] [place]1] [2] busPIRone, 2.5 mg, Oral, BID DULoxetine, 30 mg, Oral, Daily enoxaparin, 40 mg, SubCUTAneous, Daily famotidine, 20 mg, Oral, Daily gabapentin, 300 mg, Oral, BID hydrALAZINE, 100 mg, Oral, TID insulin lispro, 0-12 Units, SubCUTAneous, TID WC And insulin lispro, 0-12 Units, SubCUTAneous, Nightly isosorbide mononitrate ER, 30 mg, Oral, Daily levothyroxine, 50 mcg, Oral, qAM AC [Held by provider] lisinopril, 5 mg, Oral, Daily melatonin, 3 mg, Oral, Nightly metoprolol succinate XL, 100 mg, Oral, Daily stomahesive in petrolatum, , Topical, q8h [3] PRN medications: acetaminophen OR acetaminophen, aluminum & magnesium hydroxide-simethicone, uhfkaxs-coqncowjxqhpv-lfqszdga, dextrose, dextrose, glucagon (rDNA), glucose, hydrALAZINE, ipratropium-albuterol, labetalol, lidocaine, magnesium hydroxide, naloxone, ondansetron ODT OR ondansetron, oxyCODONE-acetaminophen, phenol, polyethylene glycol (PEG) 3350, stomahesive in petrolatum PULMONOLOGY CONSULT PROGRESS NOTE 11/20/2024 Hospital LOS: LOS: 7 days PULMONARY FOLLOW UP FOR: Respiratory failure, ASSESSMENT AND PLAN: Acute hypoxic hypercapnic respiratory failure, Likely secondary to acute decompensated congestive heart failure which clinically has improved after diuresis ADHF H/o dementia. - Cardiology on board for management of CHF. - Initial suspicion for pneumonia, but more likely pulm vascular congestion on CXR, normal WBC count afebrile normal procalcitonin. Off antibiotics. - Refusing nocturnal PAP therapy, discontinued now - Pulmonary will sign off. Please call us back for further questions, or change in clinical condition. Interval History/Event Changes: No acute overnight events, remains on room air. Subjectively: Confused today, thinks she is at [facility]. In no acute distress, on room air. Allergies Allergies[1] Review of Systems A pertinent review of systems was performed and was otherwise non-contributory. Vitals- BP (!) 176/81 Pulse 85 Temp 36.1 C (97 F) (Temporal) Resp 16 Ht 5' 5 (1.651 m) Wt 210 lb (95.3 kg) SpO2 99% BMI 34.95 kg/m Tmax: Temp (24hrs), Av.2 C (97.2 F), Min:36.1 C (97 F), Max:36.3 C (97.4 F) Hemodynamics: Cuff: Systolic (24hrs), Av , Min:127 , Max:176 /Diastolic (24hrs), Av, Min:62, Max:81 Cuff MAP:MAP (mmHg) Av.6 Min: 84 Max: 138 P: Pulse Av.3 Min: 65 Max: 85 Observed RR: Resp Av.5 Min: 16 Max: 19 Observed O2 sats: SpO2 Av.4 % Min: 91 % Max: 100 % Intake/Output Summary (Last 24 hours) at 11/20/2024 1310 Last data filed at 11/20/2024 1256 Gross per 24 hour Intake 60 ml Output -- Net 60 ml Physical exam- Physical Exam Constitutional: General: She is not in acute distress. HENT: Head: Normocephalic and atraumatic. Nose: Nose normal. No rhinorrhea. Eyes: General: No scleral icterus. Extraocular Movements: Extraocular movements intact. Conjunctiva/sclera: Conjunctivae normal. Cardiovascular: Rate and Rhythm: Normal rate and regular rhythm. Heart sounds: Normal heart sounds. No murmur heard. Pulmonary: Effort: Pulmonary effort is normal. No respiratory distress. Breath sounds: Normal breath sounds. No stridor. No wheezing, rhonchi or rales. Chest: Chest wall: No tenderness. Musculoskeletal: General: No swelling. Cervical back: Normal range of motion and neck supple. Skin: General: Skin is warm. Coloration: Skin is not jaundiced or pale. Findings: No rash. Neurological: General: No focal deficit present. Mental Status: She is alert. Mental status is at baseline. Psychiatric: Mood and Affect: Mood normal. Behavior: Behavior normal. Routine labs: Recent Labs 11/18/24 0537 11/19/24 0223 11/20/24 0309 WBC 12.2* 13.3* 12.8* HGB 12.7 13.3 14.3 HCT 39.1 39.8 43.7 PLT 231 248 279 Recent Labs 11/18/24 0537 11/19/24 0223 11/20/24 0309 NA 144 138 138 K 2.9* 3.3* 3.6 CL 108* 106 106 CO2 23 20* 21* BUN 68* 59* 44* CREATININE 1.76* 1.60* 1.29* MG -- 1.8 -- No results for input(s): GLU in the last 72 hours. Other Laboratory - Imaging Studies: Reviewed and as per electronic record. CxR/CT images reviewed by me when available. Giovanny Espinal MD Physician Pulmonary, Critical Care and Sleep Medicine. 11/20/2024 [1] No Known Allergies [facility] Geriatric Medicine Inpatient Consult Service Admission Date: 11/13/2024 Assessment Principal Problem: Acute exacerbation of chronic heart failure (HCC) Plan Acute Metabolic Encephalopathy --Improved compared to Wednesday but not resolved --Etiology likely EDWIGE/uremia (improving), hospital environment, CHF exacerbation, suspected UTI --She continues to have a leukocytosis. Today, she is able to report dysuria. Discussed with nursing, who will work on collecting the UA. Hospitalist updated --Continue to treat underlying cause --Encourage PO intake, time up in chair, family visits, and sleep hygiene --If agitated, assess for and consider treating for pain --QTc= 566 --Avoid antipsychotics due to prolonged qtc. Patient is currently hypoactive. Do not anticipate need for agitation medications at this time --Continue scheduled melatonin at HS --Monitor for constipation/urinary retention - last BM 11/20 --Possible medication contributions: gabapentin, percocet (last received 11/15) Dementia --Lives in [facility] facility --History of stroke with worsening cognitive decline. --Try to avoid anticholinergic medications --11/20: Still not back at baseline. Debility --Contributing factors include stroke, Dementia, Chronic pain, heart failure --nathan lift and use of wheelchair at baseline --PT and OT --Anticipate return to [facility] when medically stable --11/20: Stable Bipolar Disorder Anxiety --takes Lexapro 5mg daily at facility - was being weaned there. We did not restart in hospital. Continue off medication at this time, especially in setting of prolonged qtc --Continue Duloxetine 30mg daily --Continue Buspar 2.5mg BID (being weaned at facility) 11/20: Recommend removing lexapro from medication list when she discharges as well Chronic pain --Takes Oxycodone-Acetaminophen 5/325 mg 1 tab every 8 hours as needed at facility. Takes 1 tab every few days. Currently ordered. --Home dose of Gabapentin 600mg BID. --Gabapentin was increased from 300 mg BID to 400 mg BID on 11/16. --11/17: --Lower gabapentin to 200 mg BID due to EDWIGE. --11/20: EDWIGE resolved. I'm going to increase the gabapentin back to 300 mg BID. If she tolerates this and renal function is stable, then I recommend she be discharged on the 300 mg BID dose Follow-up: will follow with you Subjective Chief Complaint: shortness of breath Geriatrics consulted for confusion restless with underlying dementia with prolonged qtc HPI- The patient is known to me. 78 y.o. year-old female with past medical history of dementia, cerebral vascular disease (with left sided weakness), hypertension, CK,D, bipolar disorder, hypothyroidism, gout, migraines who was admitted to acute care from alf care for shortness of breath/cough/hypoxia. Diagnosed with acute CHF exacerbation and EDWIGE. Cardiology following. ECHO 11/14 with EF 35%. Findings consistent with Takotsubo vs CAD. Developed EDWIGE. CBC: wbc 12.8 BMP: Creatinine 1.29, BUN 44 Reviewed yesterday's primary team progress note and pulmonology note. Interval History: She think she is at [facility]. She says she is upset because she had to wait for two hours. She is able to report that she has dysuria (brought this up on ROS as well as independently later in conversation). Review of Systems Constitutional: Negative for fever. Respiratory: Negative for shortness of breath. Cardiovascular: Negative for leg swelling. Gastrointestinal: Negative for abdominal pain, constipation, diarrhea and nausea. Genitourinary: Positive for dysuria. Musculoskeletal: Negative for arthralgias and myalgias. Psychiatric/Behavioral: Positive for confusion. Objective BP (!) 176/81 Pulse 85 Temp 36.1 C (97 F) (Temporal) Resp 16 Ht 5' 5 (1.651 m) Wt 210 lb (95.3 kg) SpO2 99% BMI 34.95 kg/m No intake or output data in the 24 hours ending 11/20/24 1242 Wt Readings from Last 3 Encounters: 11/14/24 210 lb (95.3 kg) 12/17/23 205 lb (93 kg) Current Medications[1] Physical Exam Constitutional: General: She is not in acute distress. Appearance: She is ill-appearing. Comments: Awakens easily to verbal stimuli and stays awake during conversation HENT: Head: Normocephalic and atraumatic. Cardiovascular: Rate and Rhythm: Normal rate and regular rhythm. Heart sounds: No murmur heard. No friction rub. No gallop. Pulmonary: Effort: Pulmonary effort is normal. Breath sounds: Normal breath sounds. No decreased breath sounds, wheezing, rhonchi or rales. Abdominal: General: There is no distension. Palpations: Abdomen is soft. Tenderness: There is no abdominal tenderness. There is no guarding or rebound. Musculoskeletal: Right lower leg: No edema. Left lower leg: No edema. Neurological: Mental Status: She is disoriented. Comments: Thinks she is at [facility] Psychiatric: Cognition and Memory: Cognition is impaired. Memory is impaired. Comments: Speech is much better today than Wednesday Labs and Imaging: Recent Results (from the past 24 hours) POCT glucose meter Collection Time: 11/19/24 4:35 PM Result Value Ref Range Glucose 123 (H) 70 - 100 mg/dL POCT glucose meter Collection Time: 11/19/24 8:17 PM Result Value Ref Range Glucose 129 (H) 70 - 100 mg/dL CBC auto differential Collection Time: 11/20/24 3:09 AM Result Value Ref Range Auto WBC 12.8 (H) 3.6 - 10.7 10*3/uL RBC 4.48 3.80 - 5.20 10*6/uL Hemoglobin 14.3 11.7 - 16.0 g/dL Hematocrit 43.7 35.0 - 47.0 % MCV 97.5 77.0 - 99.0 fL MCH 31.9 26.0 - 34.0 pg MCHC 32.7 30.5 - 36.0 % RDW 14.8 11.5 - 15.0 % Platelets 279 140 - 440 10*3/uL MPV 11.1 9.0 - 12.7 fL nRBC 0.2 0.0 - 2.0 /100 WBCs Neutrophils Relative 77.3 38.0 - 82.0 % Lymphocytes Relative 10.4 (L) 15.0 - 45.0 % Monocytes Relative 6.4 5.0 - 13.0 % Eosinophils Relative 5.1 0.0 - 6.0 % Basophils Relative 0.5 0.0 - 2.0 % Immature Grans % 0.3 0.0 - 2.0 % Neutrophils Absolute 9.9 (H) 1.8 - 7.5 10*3/uL Lymphocytes Absolute 1.3 1.0 - 4.3 10*3/uL Monocytes Absolute 0.8 0.0 - 0.9 10*3/uL Eosinophils Absolute 0.7 (H) 0.0 - 0.5 10*3/uL Basophils Absolute 0.1 0.0 - 0.2 10*3/uL Immature Grans Absolute 0.0 <0.1 10*3/uL Basic metabolic panel Collection Time: 11/20/24 3:09 AM Result Value Ref Range SODIUM 138 136 - 145 mmol/L POTASSIUM 3.6 3.5 - 5.1 mmol/L CHLORIDE 106 98 - 107 mmol/L CARBON DIOXIDE 21 (L) 23 - 31 mmol/L UREA NITROGEN 44 (H) 9 - 23 mg/dL CREATININE 1.29 (H) 0.57 - 1.11 mg/dL GLUCOSE 140 (H) 82 - 115 mg/dL CALCIUM 8.7 (L) 8.8 - 10.0 mg/dL ANION GAP 11 3 - 13 mmol/L eGFR 42.6 (L) >60.0 mL/min/1.73m*2 POCT glucose meter Collection Time: 11/20/24 7:51 AM Result Value Ref Range Glucose 151 (H) 70 - 100 mg/dL POCT glucose meter Collection Time: 11/20/24 11:15 AM Result Value Ref Range Glucose 137 (H) 70 - 100 mg/dL Lab Results Component Value Date TSH 3.36 11/15/2024 Lab Results Component Value Date [id number] 11/15/2024 No results found for: VITD25 [1] Current Facility-Administered Medications: acetaminophen (Tylenol) tablet 650 mg, 650 mg, Oral, q6h PRN, 650 mg at 11/19/242034 OR acetaminophen (Tylenol) suppository 650 mg, 650 mg, Rectal, q6h PRN, Dominguez Franz MD aluminum & magnesium hydroxide-simethicone (Mylanta) 200-200-20 MG/5ML oral suspension 10 mL, 10 mL, Oral, q4h PRN, Dominguez Franz MD [id number]-jlsofikmewelp-mwaefrio (Excedrin Migraine) 250-250-65 MG per tablet 2 tablet, 2 tablet, Oral, q8h PRN, Dominguez Franz MD, 2 tablet at 11/19/24623 busPIRone (Buspar) tablet 2.5 mg, 2.5 mg, Oral, BID, Dominguez Franz MD, 2.5 mg at 11/20/24922 dextrose 5 % infusion, 100 mL/hr, IntraVENous, PRN, Dominguez Franz MD dextrose 50 % solution 12.5 g, 12.5 g, IntraVENous, PRN, Dominguez Franz MD DULoxetine (Cymbalta) DR capsule 30 mg, 30 mg, Oral, Daily, Dominguez Franz MD, 30 mg at 11/20/24923 enoxaparin (Lovenox) syringe 40 mg, 40 mg, SubCUTAneous, Daily, Dominguez Franz MD, 40 mg at 11/19/242035 famotidine (Pepcid) tablet 20 mg, 20 mg, Oral, Daily, Dominguez Franz MD, 20 mg at 11/20/24923 gabapentin (Neurontin) capsule 200 mg, 200 mg, Oral, BID, Vicki Caba MD, 200 mg at 11/20/24923 glucagon (human recombinant) injection 1 mg, 1 mg, IntraMUSCular, PRN, Dominguez Franz MD glucose oral gel 15 g, 15 g, Oral, PRN, Dominguez Franz MD hydrALAZINE (Apresoline) tablet 100 mg, 100 mg, Oral, TID, Hammad Hinton MD, 100 mg at 11/20/24922 hydrALAZINE (Apresoline) tablet 25 mg, 25 mg, Oral, q8h PRN, Dominguez Franz MD, 25 mg at 11/16/242122 Insulin Lispro (Humalog) injection 0-12 Units, 0-12 Units, SubCUTAneous, TID WC, 2 Units at 11/20/24922 AND Insulin Lispro (Humalog) injection 0-12 Units, 0-12 Units, SubCUTAneous, Nightly, Dominguez Franz MD, 2 Units at 11/18/242124 ipratropium-albuterol (Duo-Neb) 0.5-2.5 mg/3 mL nebulizer solution 3 mL, 3 mL, Nebulization, 4x daily PRN, Dominguez Franz MD, 3 mL at 11/17/24 0339 isosorbide mononitrate ER (Imdur) 24 hr tablet 30 mg, 30 mg, Oral, Daily, Hammad Hinton MD, 30 mg at 11/20/24 0924 labetalol (Normodyne,Trandate) injection 10 mg, 10 mg, IntraVENous, q6h PRN, Gordo Nogueira MD, 10 mg at 11/17/24 0000 levothyroxine (Synthroid, Levoxyl) tablet 50 mcg, 50 mcg, Oral, qAM AC, Dominguez Franz MD, 50 mcg at 11/20/24 0539 lidocaine (Xylocaine) 2 % mouth solution 15 mL, 15 mL, Mouth/Throat, q3h PRN, Dominguez Franz MD [Held by provider] lisinopril tablet 5 mg, 5 mg, Oral, Daily, Hammad Hinton MD, 5 mg at 11/17/24 0853 magnesium hydroxide (Milk of Magnesia) 400 MG/5ML suspension 30 mL, 30 mL, Oral, Daily PRN, Dominguez Franz MD melatonin tablet 3 mg, 3 mg, Oral, Nightly, Dominguez Franz MD, 3 mg at 05/18/25 2035 metoprolol succinate XL (Toprol-XL) 24 hr tablet 100 mg, 100 mg, Oral, Daily, Ayana Pascual PA-C, 100 mg at 11/20/24 0924 naloxone (Narcan) injection 0.4 mg, 0.4 mg, IntraVENous, q5 min PRN, Dominguez Franz MD ondansetron ODT (Zofran-ODT) disintegrating tablet 4 mg, 4 mg, Oral, q8h PRN OR ondansetron (Zofran) injection 4 mg, 4 mg, IntraVENous, q6h PRN, Dominguez Franz MD oxyCODONE-acetaminophen (Percocet) 5-325 MG per tablet 1 tablet, 1 tablet, Oral, q8h PRN, Dominguez Franz MD, 1 tablet at 11/15/24 2345 phenol (Chloraseptic) 1.4 % mouth/throat spray 1 spray, 1 spray, Mouth/Throat, q2h PRN, Dominguez Franz MD polyethylene glycol (PEG) 3350 (Miralax) packet 17 g, 17 g, Oral, Daily PRN, Dominguez Franz MD stomahesive in petrolatum (ET Mix), , Topical, q8h, AGGIE Valenzuela CNP stomahesive in petrolatum (ET Mix), , Topical, PRN, AGGIE Valenzuela CNP Images from the original note were not included. OCCUPATIONAL THERAPY [facility] Treatment Note Name/MRN: Carline Villarreal ([id number]) Date of : 1945 Age: 78 y.o. Room/Bed: B4466/B4[facility] A Visit #: 3 out of 7 Discharge Recommendation: Assisted Facility Equipment Needed: No Assessment Patient is making gradual progress with OT this date with patient limited from decreased strength and balance. Patient is overall on the max assist to dependent level. Patient remains a high fall risk and well below baseline. Patient was able order improved standing to assist of 1 this date. OT is still recommending SNF therapy at discharge. Subjective Patient supine in bed upon arrival and agreeable to OT treatment. Pain: Pt denies any current pain. Medical Precautions: No active isolations Proper PPE donned/doffed in accordance with facility standards. Fall Risk: Oleary Fall Risk Score: 60 (High Risk) Precautions/Restrictions: Fall Precautions Decreased (L) LE WB and increased tone in standing, dementia Family/Caregiver Present: none Objective ADLs Toileting: Dependent Patient was incontinent of BM upon arrival. Patient independent care at bed level to complete [facility]. Bed Mobility Supine to sit: Max Assist Sit to supine: Max Assist Rolling to right: Max Assist Rolling to left: Max Assist HOB Elevated Use of bed rail(s) Cues for technique with extended time to complete. Transfers/Mobility Sit to stand: Max Assist Stand to sit: Max Assist Standing balance: Max Assist Patient completed transfers to front wheeled walker with cues for technique with left-sided weakness noted. Patient needing max assist of 1 to complete. Patient able to tolerate 15-second intervals of standing before needing to sit. Patient unable to take any steps this date. Device(s) used: Front wheeled walker Cognition - WFL Plan Continue acute OT per plan of care. Safety/Education Safety Safety Devices in place: All fall risk precautions in place, call light within reach, left in bed, gait belt, patient at risk for falls, nurse notified, and no alarms engaged upon entry Restraints: No Education Education Given To: patient Education Provided: Precautions, ADL Adaptive Strategies, Transfer Training, Fall Prevention Education, and Discharge Recommendations Education Method: Verbal and Demonstration Barriers to Learning: None Education Outcome: Verbalized Understanding, Demonstrated Understanding, and Continued Education Needed AM-PAC AM-PAC Inpatient Daily Activity Raw Score: 11 ADL Inpatient CMS G-Code Modifier: CL Goals Patient Stated Goal: to get better Encounter Problems Encounter Problems (Active) Dressing Upper Extremities Patient will complete upper body dressing SBA (Not Addressed) Start: 11/15/24 Expected End: 11/25/24 Dressings Lower Extremities Patient will dress lower body MIN A (Not Addressed) Start: 11/15/24 Expected End: 11/25/24 Mobility Patient will demonstrate functional mobility with MOD A and FWW (Not Addressed) Start: 11/15/24 Expected End: 11/25/24 Therapeutic Exercise Pt will demo good participation in BUE exercises to increase endurance and strength for participation in ADLs and functional transfers / bed mobility. (Not Addressed) Start: 11/15/24 Expected End: 11/25/24 Toileting Patient will complete toileting tasks at bedside commode with mod assist. (Slowly Progressing) Start: 11/15/24 Expected End: 11/25/24 Transfers Patient will complete functional transfer with rolling walker with mod assist in order to prepare for ambulation. (Progressing) Start: 11/15/24 Expected End: 11/25/24 Patient will perform bed mobility with supervision in order to improve independence and prepare for out of bed mobility. (Progressing) Start: 11/15/24 Expected End: 11/25/24 Therapy Time Individual Co-treatment Time In 0808 Time Out 0831 Minutes 23 Timed Code Treatment Minutes: 23 Minutes (1 ADL, 1 ACT) RASHMI Deal Cosigned by Yazan Wells OT at 11/20/2024 1:11 PM EDT Images from the original note were not included. PHYSICAL THERAPY [facility] Treatment Note Name/MRN: Carline Villarreal ([id number]) Date of : 1945 Age: 78 y.o. [facility] A Visit #: 2 out of 7 visits Discharge Recommendation: Assisted Facility Equipment Needed: No Other: TBD at next level of care Assessment Pt completed B LE exercises this AM in order to progress strength for mobility. Pt requires initial encouragement as she recently worked with OT and is c/o increased fatigue. Pt requires AAROM at this time for exercises in order to assure attention to task. Pt could benefit from continued PT in order to progress toward goals. SNF recommendation remains appropriate at this time. Subjective Patient pleasantly confused and agreeable to therapy session this date. Per RN patient okay for therapy. Observation: no lines present Pain: Pt denies any current pain. Medical Precautions: No active isolations Proper PPE donned/doffed in accordance with facility standards. Fall Risk: Oleary Fall Risk Score: 60 (High Risk) Precautions/Restrictions: Fall Precautions Decreased (L) LE WB and increased tone in standing, dementia Overall Cognitive Status: Exceptions - Following commands: follows one step commands consistently - Memory: decreased short term memory - Sequencing: requires cues for some - h/o dementia Overall Orientation Status: Oriented to Person, Disoriented to Situation, Disoriented to Time, and Disoriented to Place - pt initially stating she was at [facility] and then later in session patient states she was at a group home Family/Caregiver Present: none Objective Exercises Hip Abduction: 2 sets / 10 reps B LE in supine Knee Short Arc Quad: 2 sets / 10 reps R and L LE in supine Ankle Pumps: 2 sets / 10 reps R and L LE in supine Heel Slides: 2 sets / 10 reps R and L LE in supine SLR: 2 sets / 10 reps R and L LE in supine Completed B LE exercises in order to improve strength and activity tolerance for mobility. Pt educated on technique and rationale for exercises in order to improve patients understanding and compliance with exercises. Pt demonstrates understanding and ability to complete at this time. AAROM throughout from therapist to assure attention to task and maximize benefit. Pt demonstrates good effort after initial 1-2 reps initiated. Plan Continue acute PT per plan of care. Safety/Education Safety Safety Devices in place: All fall risk precautions in place, call light within reach, left in bed, bed alarm in place, nurse notified, and no alarms engaged upon entry Restraints: N/A Education Education Given To: patient Education Provided: PT Role, PT Goals, Plan of Care, Home Exercise Program, Orientation, Discharge Recommendations, and Benefits of Increasing Activity Education Method: Verbal and Demonstration Barriers to Learning: Cognition Education Outcome: Demonstrated Understanding and Continued Education Needed Outcome Measures AM-PAC AM-PAC Inpatient Mobility Raw Score (No Stairs) : 7 JH-HLM -HLM Score: Bed activity Goals Patient Stated Goal: Patient unable to participate in goal setting at this time. Encounter Problems Encounter Problems (Active) Balance Patient will maintain dynamic standing balance for 3 minutes with min assist in order to demonstrate decreased risk of falling. (Not Addressed) Start: 11/16/24 Expected End: 12/02/24 Patient will maintain static standing balance for 5 minutes with CGA in order to demonstrate decreased risk of falling. (Not Addressed) Start: 11/16/24 Expected End: 12/02/24 Exercise Patient will complete lower extremity exercises for 1-2 sets / 10-15 reps in order to improve strength and activity tolerance for mobility. (Progressing) Start: 11/16/24 Expected End: 12/02/24 Mobility Patient will ambulate 10 feet with min assist and least restrictive device in order to improve safety and independence with mobility. (Not Addressed) Start: 11/16/24 Expected End: 12/02/24 Transfers Patient will perform bed mobility with min assist in order to improve independence and prepare for out of bed mobility. (Not Addressed) Start: 11/16/24 Expected End: 12/02/24 Patient will complete functional transfer with least restrictive device with min assist in order to prepare for ambulation. (Not Addressed) Start: 11/16/24 Expected End: 12/02/24 Therapy Time Individual Co-treatment Time In 0945 Time Out 0958 Minutes 13 Timed Code Treatment Minutes: 12 Minutes (therex x 1) Dea Mason PT Images from the original note were not included. Speech-Language Pathology SPEECH LANGUAGE PATHOLOGY [facility] Dysphagia Treatment Note Patient Name: Carline Villarreal Evaluation Date: 11/20/2024 Date of : 1945 Admission Date: 11/13/2024 10:39 AM Age: 78 y.o. [facility] A Subjective Patient alert and cooperative. Seen upright in bed. Answers all basic questions with strong vocal quality. Follows all basic commands. No visitors at bedside - Nurse was present delivering meds and charting. Spoke with WEI Barreto who cleared pt for treatment. Current Diet: Dietary Orders (From admission, onward) Start Ordered 11/18/24 1156 Adult diet Dysphagia - Pureed Diet effective now Question: Diet type Answer: Dysphagia - Pureed 11/18/24 1155 Aspiration Precautions: - Upright positioning for all PO intake - Slow rate of intake - Small bites/sips - Alternate solid and liquids Oxygen: Oxygen Therapy: None (Room air Pain: RN managing pain. PPE Worn: gloves Objective & Assessment Dysphagia Treatment # of Activities: 1 Dysphagia Activity 1: assess dietary tolerance Patient was consuming meds independently with sips of thin liquid via straw. No cough or change in voice quality was noted. Patient was agreeable to trying puree and soft and bite sized solids. Patient demonstrated prolonged but complete mastication, suspect due to presenting edentulous bedside. Minimal oral residue was noted, but cleared with a liquid wash. Patient's swallow presented timely once initiated from prolonged mastication. Patient stated she ate softer foods before coming into the hospital. When consuming foods adequate hyo-laryngeal excursion is noted. Plan & Recommendations Plan: Continue acute TECHNICAL ASST therapy per initial plan of care and established goals. Recommend Soft and bite-sized solids and Thin liquids and meds as tolerated and the following precautions: - Upright positioning for all PO intake - Slow rate of intake - Small bites/sips - Alternate solid and liquids D/C Recommendations: to be determined Education Education Given: swallowing strategies, diet recommendations Given To: patient and RN Response: verbalizes understanding Goals Patient Stated Goal: To rest. Encounter Problems Encounter Problems (Active) Swallowing Patient will tolerate the least restrictive diet consistency to allow for safe consumption of daily meals (Progressing) Start: 11/17/24 Expected End: 11/24/24 Patient will demonstrate safe swallowing Intervention/techniques (Progressing) Start: 11/17/24 Expected End: 11/24/24 Therapy Time TECHNICAL ASST Individual Minutes Time In: 926 Time Out: 36 Minutes: 9 Jasmyn Vines CCC-TECHNICAL ASST Nutrition update completed. Chart reviewed. Patient continues as a level 1. Images from the original note were not included. PHYSICAL THERAPY [facility] Treatment Note Name/MRN: Carline Villarreal ([id number]) Date of : 1945 Age: 78 y.o. Room/Bed: B4466/B4466 A Visit #: 1 out of 7 Discharge Recommendation: Assisted Facility Equipment Needed: No Assessment 78 y/o female admitted from facility with SOB and decompensated heart failure. PMH as below and significant for stroke and dementia. Pt requires max assist +2 for bed mobility, max +2 for sit <> stand transfer. Pt demo'ed (L) LE adductor and (?) flexor tone in standing (lifting and adducting (L) LE off floor, does not weight bear through (L) LE), stand to FWW. Noted (L) UE tone as well. Pt would benefit from continued acute PT services and SNF at discharge to decrease level of assist and risk for falls. Subjective Cleared by RN for PT treatment. Pt received to PT supine in bed with HOB elevated, on room air, agreeable to PT, hand off directly to OT post PT treatment. Pain: Pt denies any current pain. Medical Precautions: No active isolations Proper PPE donned/doffed in accordance with facility standards. Fall Risk: Oleary Fall Risk Score: 60 (High Risk) Precautions/Restrictions: Fall Precautions Decreased (L) LE WB and increased tone in standing, dementia Overall Cognitive Status: Exceptions - Arousal/alertness: delayed responses to stimuli and at times inappropriate and perseverating on therapist's shoes, cues to redirect to task required - Following commands: follows one step commands with increased time and follows one step commands with repetition - Safety judgement: decreased awareness of need for assistance and decreased awareness of need for safety - Problem solving: assistance required to identify errors made and assistance required to correct errors made - Initiation: requires cues for all - Sequencing: requires cues for all Overall Orientation Status: Oriented to Person and hospital through she thinks she is at [place] Family/Caregiver Present: none Objective Bed Mobility Supine to sit: Max Assist, x2 Person Assist Sit to supine: Max Assist, x2 Person Assist HOB elevated, increased time to complete, assist at trunk and LE Transfers/Mobility Sit to stand: Max Assist, x2 Person Assist Stand to sit: Max Assist, x2 Person Assist Adductor tone in (L) LE, scissoring (L) LE across (R) (when returned back to supine, [facility] figure 4 pattern at (L) hip), decreased WB through (L) LE when standing. Device(s) used: Front wheeled walker and gait belt Balance During Session: Posture: fair Sitting - Static: Contact Guard Sitting - Dynamic: Contact Guard Standing - Static: Max Assist x 2 with FWW Plan Continue acute PT per plan of care. Safety/Education Safety Safety Devices in place: All fall risk precautions in place, call light within reach, left in bed, bed alarm in place, gait belt, and nurse notified Restraints: No Education Education Given To: patient Education Provided: PT Role, PT Goals, Plan of Care, Precautions, Transfer Training, Fall Prevention Education, and Benefits of Increasing Activity Education Method: Verbal Barriers to Learning: Cognition Education Outcome: Unable to Verbalize and Unable to Demonstrate Outcome Measures AM-PAC AM-PAC Inpatient Mobility Raw Score (No Stairs) : 7 JH-HLM JH-HLM Score: Static standing (1 or more minutes) Goals Patient Stated Goal: none stated at this time Encounter Problems Encounter Problems (Active) Balance Patient will maintain dynamic standing balance for 3 minutes with min assist in order to demonstrate decreased risk of falling. Start: 11/16/24 Expected End: 12/02/24 Patient will maintain static standing balance for 5 minutes with CGA in order to demonstrate decreased risk of falling. Start: 11/16/24 Expected End: 12/02/24 Exercise Patient will complete lower extremity exercises for 1-2 sets / 10-15 reps in order to improve strength and activity tolerance for mobility. Start: 11/16/24 Expected End: 12/02/24 Mobility Patient will ambulate 10 feet with min assist and least restrictive device in order to improve safety and independence with mobility. Start: 11/16/24 Expected End: 12/02/24 Transfers Patient will perform bed mobility with min assist in order to improve independence and prepare for out of bed mobility. Start: 11/16/24 Expected End: 12/02/24 Patient will complete functional transfer with least restrictive device with min assist in order to prepare for ambulation. Start: 11/16/24 Expected End: 12/02/24 Therapy Time Individual Co-treatment Time In 1210 Time Out 1219 Minutes 9 Timed Code Treatment Minutes: 9 Minutes (1 ther act) Ivelisse Harley PT Images from the original note were not included. OCCUPATIONAL THERAPY [facility] Treatment Note Name/MRN: Carlnie Villarreal ([id number]) Date of : 1945 Age: 78 y.o. Room/Bed: -158/B4-069 A Visit #: 2 out of 7 Discharge Recommendation: Assisted Facility Equipment Needed: No Assessment Pt in bed upon arrival, agreeable to OT tx. Pt was MAX of 1-2 for bed-mobility, max of 2 for STS, max of 2 for functional transfers. Pt is progressing well with OT goals but still remains below baseline. Pt is limited by generalized weakness, decreased strength/endurance, increased instability, fall risk and cognition. Pt would continue to benefit from skilled OT therapy services to adapt to deficits and increase Occupational Performance. OT is rec SNF upon planned discharge. Subjective Ok to see per RN Pain: Pt denies any current pain. Medical Precautions: No active isolations Proper PPE donned/doffed in accordance with facility standards. Fall Risk: Oleary Fall Risk Score: 60 (High Risk) Precautions/Restrictions: N/A Family/Caregiver Present: none Objective Bed Mobility Supine to sit: Max Assist, x2 Person Assist Sit to supine: Max Assist, x2 Person Assist Rolling to right: Max Assist Rolling to left: Max Assist Scooting: Max Assist, X2 Assist HOB Elevated Use of bed rail(s) Pt completed supine to sit with max of 2 for trunk and LB mgmnt. No reports of dizziness with positional changes. Pt required max assist to scoot hips forward with use of draw pad. Pt return supine with max of 2 for trunk and LB mgmnt. Pt required max of 1 to roll L to R to adjust draw pad. Transfers/Mobility Sit to stand: Max Assist, x2 Person Assist Stand to sit: Max Assist, x2 Person Assist Standing balance: Max Assist, x2 Person Assist Pt completed x2 STS from EOB to fww with a max of 2 for STS d/t LLE abductor tone and not putting weight on LLE. Noted heavy reliance of fww. Pt participated in standing balance for ~1 min with max X2 for balance and v/c's with attempts to place LLE onto floor but noted LLE abductor tone. Device(s) used: Front wheeled walker Cognition Overall Cognitive Status: Exceptions - Following commands: follows one step commands with repetition - Attention span: attends with cues to redirect - Memory: decreased recall of recent events and decreased short term memory - Safety judgement: decreased awareness of need for assistance and decreased awareness of need for safety - Problem solving: assistance required to identify errors made and assistance required to correct errors made - Insights: decreased awareness of deficits - Initiation: requires cues for some - Sequencing: requires cues for some Overall Orientation Status: Oriented to Situation, Oriented to Person, and Disoriented to Place Plan Continue acute OT per plan of care. Safety/Education Safety Safety Devices in place: All fall risk precautions in place, call light within reach, left in bed, gait belt, patient at risk for falls, nurse notified, and no alarms engaged upon entry Restraints: No Education Education Given To: patient Education Provided: OT Role, Plan of Care, Transfer Training, Energy Conservation, Equipment, Fall Prevention Education, Discharge Recommendations, and Benefits of Increasing Activity Education Method: Verbal, Demonstration, and Teach Back Barriers to Learning: Cognition Education Outcome: Continued Education Needed AM-PAC AM-PAC Inpatient Daily Activity Raw Score: 10 ADL Inpatient CMS G-Code Modifier: CL Goals Patient Stated Goal: To get up to the bathroom. Encounter Problems Encounter Problems (Active) Dressing Upper Extremities Patient will complete upper body dressing SBA (Not Addressed) Start: 11/15/24 Expected End: 11/25/24 Dressings Lower Extremities Patient will dress lower body MIN A (Not Addressed) Start: 11/15/24 Expected End: 11/25/24 Mobility Patient will demonstrate functional mobility with MOD A and FWW (Not Addressed) Start: 11/15/24 Expected End: 11/25/24 Therapeutic Exercise Pt will demo good participation in BUE exercises to increase endurance and strength for participation in ADLs and functional transfers / bed mobility. (Not Addressed) Start: 11/15/24 Expected End: 11/25/24 Toileting Patient will complete toileting tasks at bedside commode with mod assist. (Not Addressed) Start: 11/15/24 Expected End: 11/25/24 Transfers Patient will complete functional transfer with rolling walker with mod assist in order to prepare for ambulation. (Progressing) Start: 11/15/24 Expected End: 11/25/24 Patient will perform bed mobility with supervision in order to improve independence and prepare for out of bed mobility. (Progressing) Start: 11/15/24 Expected End: 11/25/24 Therapy Time Individual Co-treatment Time In 1213 Time Out 1230 Minutes 17 Timed Code Treatment Minutes: 17 Minutes (1 ACT) FABI Hickey/Nicole Cosigned by Angelina Samuel OT at 11/19/2024 1:27 PM EDT Images from the original note were not included. Speech-Language Pathology SPEECH LANGUAGE PATHOLOGY [facility] Dysphagia Treatment Note Patient Name: Carline Villarreal Evaluation Date: 11/19/2024 Date of : 1945 Admission Date: 11/13/2024 10:39 AM Age: 78 y.o. [facility]: [facility] A Subjective Patient alert and cooperative. Seen upright in bed. Answers all basic questions with clear vocal quality. Follows all basic commands. No visitors at bedside. Spoke with WEI Ackerman who cleared pt for treatment. Current Diet: Dietary Orders (From admission, onward) Start Ordered 11/18/24 1156 Adult diet Dysphagia - Pureed Diet effective now Question: Diet type Answer: Dysphagia - Pureed 11/18/24 1155 Aspiration Precautions: - Upright positioning for all PO intake - Slow rate of intake - Small bites/sips - Check mouth for pocketing - PO only when fully alert Oxygen: Oxygen Therapy: None (Room air) O2 Delivery Method: Nasal cannula O2 Flow Rate (L/min): 3 L/min Pain: Pt denies any current pain. PPE Worn: gloves Objective & Assessment Dysphagia Treatment # of Activities: 2 Dysphagia Activity 1: Assessment of diet tolerance Dysphagia Activity 2: Assess for potential diet upgrade Patient agreeable to therapy session this date, reports eating breakfast without difficulty. Patient remains on puree diet and thin liquids. Patient trialed bites of puree texture with adequate bolus containment, increased rate of intake noted when patient is able to self-feed puree items. Patient trialed small amount of regular texture with amount controlled by clinician. Patient with decreased bolus awareness and manipulation due to edentulous state, moderate residuals remain in oral cavity in which prompted liquid was does not clear. Patient does not exhibit overt s/s airway compromise, however, remains unsafe for diet upgrade due to amount of residuals and decreased awareness. Plan & Recommendations Plan: Continue acute TECHNICAL ASST therapy per initial plan of care and established goals. Recommend Pureed solids and Thin liquids and meds crushed in puree and the following precautions: - Upright positioning for all PO intake - Slow rate of intake - Small bites/sips - Check mouth for pocketing - PO only when fully alert D/C Recommendations: to be determined Education Education Given: swallowing strategies, diet recommendations Given To: patient and RN Response: needs reinforcement Goals Patient Stated Goal: To have a drink of water Encounter Problems Encounter Problems (Active) Swallowing Patient will tolerate the least restrictive diet consistency to allow for safe consumption of daily meals (Progressing) Start: 11/17/24 Patient will demonstrate safe swallowing Intervention/techniques (Progressing) Start: 11/17/24 Therapy Time TECHNICAL ASST Individual Minutes Time In: 0956 Time Out: 1012 Minutes: 16 Herber Simmons MA, [facility]-TECHNICAL ASST Images from the original note were not included. [facility] [place], Pulmonary Medicine [address] [place] [id number] Patient - Carline Villarreal, Age - 78 y.o. - 1945 Room Number - B4-466/[id number] A Consulting - Sivakumar Walton MD Primary Care Physician - Evi Guevara Acct: No I do not have problem with the patient you know he was kind of he wanted to go home today I just kept him so Maybe can do little earlier okay [phone]- [phone] Date of Admission - 11/13/2024 10:39 AM Hospital Day - 6 Chief Complaint Carline Villarreal is a 78 y.o. female who pulmonary is following for respiratory failure Interval History Patient seen comfortably on the bed no acute distress afebrile Complaining of headache No nausea no vomiting Chest x-ray 11/17 No acute infiltrate no significant change from previous chest x-ray HPI Carline Villarreal is a 78 y.o. female admitted for Shortness of breath noted to be in acute hypoxic hypercapnic respiratory failure decompensated congestive heart failure Patient does have a history of dementia as per chart group home resident, diabetes mellitus hypertension stroke Admitted with above complaint Initial VBG did show pH 7.229 pCO2 of 55 pO2 of 32 Patient received IV Lasix diuresed well placed on NIV Follow-up VBG showed pH 7.74 pCO2 of 30 and PO2 of 47 EKG showed T inversion ST ST depression elevated troponin This morning apparently has episode of tachyarrhythmia as per cardiology atrial fibrillation Her saturation was 97 percentile feeling much better this morning however she is not a good historian Currently she was on room air saturation was 97 percentile Never smoked Not on PAP therapy at home Apparently came from [facility] Chest x-ray reviewed interpreted by me Vascular congestion with a small bilateral pleural effusion All other systems reviewed Objective Vitals: BP 149/69 Pulse 69 Temp 36.6 C (97.9 F) (Temporal) Resp 18 Ht 5' 5 (1.651 m) Wt 210 lb (95.3 kg) SpO2 99% BMI 34.95 kg/m Pulse Ox: SpO2 Av.7 % Min: 98 % Max: 99 % Supplemental O2: O2 Flow Rate (L/min): 3 L/min I/O 24HR INTAKE/OUTPUT: Intake/Output Summary (Last 24 hours) at 11/19/2024 1051 Last data filed at 11/18/20242014 Gross per 24 hour Intake -- Output 1 ml Net -1 ml Exam General appearance: Awake and alert no distress HEENT: Normocephalic, atraumatic. Pupils equil and round, External ear normal, conjunctivae normal, negative for scleral icterus. No congestion. Neck: ROM normal, supple, trachea midline. No lymphadenopathy Cardiovascular: Irregular rhythm. Heart sounds normal. Negative for murmur, friction rub or gallop. Tachycardic Pulmonary: Effort normal, no respiratory distress. Moderate air entry Rales posteriorly No wheezing Abdomen: Soft, non distended, non tender, bowel sounds normal. No palpable masses. No Hepatomegaly Musculoskeletal: ROM normal, Negative for swelling, tenderness or deformity. Skin: Warm, dry. Skin color, texture, turgor normal. Negative for rashes or lesions. Extremities: No clubbing, cyanosis, 1+ bipedal edema Neurological: No focal deficits. Alert and oriented x 1. Cranial nerves II-XII are intact Lymphatics: No cervical or axillary lymphadenopathy Psychiatric: Mood, behavior, thought content normal. Cooperative with exam. Medications Current Medications Scheduled Meds[1] PRN Mediations PRN Meds[2] IV Drips/Infusions Continuous Meds[3] Labs CBC Results from last 7 days Lab Units 11/19/24 0223 WBC AUTO 10*3/uL 13.3* HEMOGLOBIN g/dL 13.3 HEMATOCRIT % 39.8 PLATELETS 10*3/uL 248 BMP: Results from last 7 days Lab Units 11/19/24 0223 11/18/24 0537 11/17/24 1316 SODIUM mmol/L 138 144 144 POTASSIUM mmol/L 3.3* 2.9* 3.2* CHLORIDE mmol/L 106 108* 108* CO2 mmol/L 20* 23 22* BUN mg/dL 59* 68* 70* CREATININE mg/dL 1.60* 1.76* 2.26* GLUCOSE mg/dL 142* 168* 244* CALCIUM mg/dL 8.3* 8.1* 8.3* ABG: Results from last 7 days Lab Units 11/13/24 1532 11/13/24 1056 SOURCE OF OXYGEN Nasal Cannula (LPM) Nasal Cannula (LPM) LIVER PROFILE Results from last 7 days Lab Units 11/17/24 1316 11/13/24 1056 ALK PHOS U/L 74 101 BILIRUBIN TOTAL mg/dL 0.8 0.6 PROTEIN TOTAL g/dL 6.4 6.8 ALT U/L 51* 11 AST U/L 65* 20 INR PTT No results found for: PTT Cultures Influence pcr neg Radiology Exam Date/Time: 11/13/2024 11:11 Procedure: XR CHEST 1 VIEW Ordering Provider: SALEEM AMY Reason For Exam: COUGH CHEST - PORTABLE: CLINICAL INDICATION: COUGH TECHNIQUE: Portable AP COMPARISON: None. IMPRESSION: FINDINGS/IMPRESSION: Limitations: Mild patient rotation Lines, tubes, and devices: None. Cardiomediastinal silhouette: Heart size is within normal limits. Atherosclerotic calcifications in the thoracic aorta. Lungs/Pleura: Pulmonary vascular congestion right side greater than left. Additional hazy and streaky opacities right greater than left lung base suspicious for pneumonia. There may be a trace layering right pleural effusion. No pneumothorax. Osseous structures: Degenerative spondylosis in the visualized spine. Postsurgical changes shoulders. Soft tissues: No soft tissue abnormality is detected. Active Hospital Problem List Problem List[4] Assessment and Plan -Acute hypoxic hypercapnic respiratory failure improved - Likely secondary to acute decompensated congestive heart failure which clinically has improved after brisk diuresis - No signs of CO2 narcosis, repeat VBG did show improved hypercarbia as well as pH - Chest x-ray more compatible with congestive heart failure with pleural effusion - Clinical suspicion for pneumonia is low in view of normal WBC count afebrile normal procalcitonin - Cardiac arrhythmia/abnormal EKG T inversion ST depression/elevated troponin, previous echocardiogram did show moderate aortic regurgitation Patient clinically appears to have improved since admission with brisk diuresis Likely has underlying ischemic heart disease leading to congestive heart failure as well as cardiac arrhythmia Cardiology evaluation and recommendation noted Clinical suspicion for pneumonia is low, would recommend de-escalation of antibiotics pending culture result Will repeat the chest x-ray in the morning to follow-up CHF as well as pleural effusion Patient saturating well on room air currently As noted above chest x-ray did show marked improvement saturating well on room air not using PAP therapy Echocardiogram did show ejection fraction 35% and left ventricular dysfunction Cardiology adjusting medication Will discontinue the PAP therapy at the patient not using it Patient is off antibiotics Oxygen supplement titrate to keep O2 sat 92 percentile Patient remained stable from pulmonary standpoint Oxygenating well No shortness of breath no cough Chest x-ray reviewed no acute infiltrate Advance Directive: DNR-CCA Case discussed with nurse and patient/ Questions and concerns addressed. Portions of the information within this encounter were entered using an electronic dictation system. Best attempts were made to edit/proofread the information prior to note completion. Despite the review of information, some errors may remain. If there are questions related to the information contained within the note please contact the signing provider directly. [1] busPIRone, 2.5 mg, Oral, BID DULoxetine, 30 mg, Oral, Daily enoxaparin, 40 mg, SubCUTAneous, Daily famotidine, 20 mg, Oral, Daily gabapentin, 200 mg, Oral, BID hydrALAZINE, 100 mg, Oral, TID insulin lispro, 0-12 Units, SubCUTAneous, TID WC And insulin lispro, 0-12 Units, SubCUTAneous, Nightly isosorbide mononitrate ER, 30 mg, Oral, Daily levothyroxine, 50 mcg, Oral, qAM AC [Held by provider] lisinopril, 5 mg, Oral, Daily melatonin, 3 mg, Oral, Nightly metoprolol succinate XL, 100 mg, Oral, Daily potassium chloride, 40 mEq, Oral, Once [2] PRN medications: acetaminophen OR acetaminophen, aluminum & magnesium hydroxide-simethicone, thprymn-wtoaxxykdspwn-pilcyqil, dextrose, dextrose, glucagon (rDNA), glucose, hydrALAZINE, ipratropium-albuterol, labetalol, lidocaine, magnesium hydroxide, naloxone, ondansetron ODT OR ondansetron, oxyCODONE-acetaminophen, phenol, polyethylene glycol (PEG) 3350 [3] [4] Patient Active Problem List Diagnosis Left-sided weakness Hypertensive chronic kidney disease with stage 1 through stage 4 chronic kidney disease, or unspecified chronic kidney disease Cerebrovascular accident (HCC) Bipolar disorder (HCC) Anxiety Vitamin D deficiency Recurrent major depression (HCC) Unilateral paralysis as late effect of cerebrovascular accident (CVA) (HCC) Migraine headache Hypothyroid HTN (hypertension) Hyperlipidemia Gout Gastroesophageal reflux disease Dysphagia Dementia (HCC) 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 female with history of HTN, T2DM, CKD 3, stroke, dementia, GABRIELE, obesity, hypothyroidism, chronic pain, bipolar disorder, anxiety who presented to ED from facility on 11/13/24 for shortness of breath. In ED, initial labs significant for bicarb 20, AG 16, BUN 28, Cr 1.41, BG 169, WBC 10.5 wnl, Hb 14.0 wnl, troponin 12, BNP 6,596. Initial VB.229/55.8/32.9. EKG with sinus rhythm. Covid/RSV/flu negative. CXR showed pulmonary vascular congestion R>L, additional hazy and streaky opacities R>L, possible trace layering Right pleural effusion, and no pneumothorax. Blood cx obtained. Given IV solu-medrol 125 mg, IV lasix, and IV abx in ED. Patient required CPAP/BiPAP briefly in ED. ICU evaluated and noted okay for GMF. Admitted for further evaluation and management. Pulmonology consulted/evaluated, and noted respiratory issues likely 2/2 acute decompensated HF. Cardiology consulted/evaluated and diuresed patient. TTE showed LVEF 35% with grade II diastolic dysfunction with increased LAP, 2+ AR. Palliative Care evaluated. Geriatrics evaluated. CT Head (11/17) with no evidence of intracranial hemorrhage or definite acute cortical infarction, but moderate volume loss, periventricular white matter hypodensities, and old lacunar infarct within Right basal ganglia appearing unchanged. Hospital course complicated by EDWIGE. Cardiac medications optimized by Cardiology. PT/OT recommended SNF. Given low grade fever, tachycardia, and leukocytosis, discharge to SNF cancelled on 11/17 and blood cx obtained. Interval History: No documented overnight issues. Patient laying in bed, Aox2 (person, place), and slightly confused. Case and plan discussed with patient and bedside nurse. Questions answered. Adult diet Dysphagia - Pureed 24HR INTAKE/OUTPUT: Intake/Output Summary (Last 24 hours) at 11/19/2024 1038 Last data filed at 11/18/20242014 Gross per 24 hour Intake -- Output 1 ml Net -1 ml Past Medical History: Medical History[1] LABS: CBC: Recent Labs 11/17/24 1316 11/18/24 0537 11/19/24 0223 WBC 14.7* 12.2* 13.3* RBC 4.15 4.05 4.14 HGB 13.3 12.7 13.3 HCT 39.1 39.1 39.8 MCV 94.2 96.5 96.1 RDW 14.3 14.2 14.5 PLT 280 231 248 BMP: Recent Labs 11/17/24 1316 11/18/24 0537 11/19/24 0223 NA 144 144 138 K 3.2* 2.9* 3.3* CL 108* 108* 106 CO2 22* 23 20* BUN 70* 68* 59* CREATININE 2.26* 1.76* 1.60* GLUCOSE 244* 168* 142* CALCIUM 8.3* 8.1* 8.3* ANIONGAP 14* 13 12 LIVER PROFILE: Recent Labs 11/17/24 1316 AST 65* ALT 51* BILITOT 0.8 ALKPHOS 74 PROT 6.4 PT/INR: No results for input(s): PROTIME, INR in the last 72 hours. CARDIAC ENZYMES: No results for input(s): TROPONINI in the last 72 hours. Procalcitonin: No results found for: PROCAL COVID-19 PCR: No results for input(s): COVID19 in the last 72 hours. Objective: Vitals: BP 149/69 Pulse 69 Temp 36.6 C (97.9 F) (Temporal) Resp 18 Ht 5' 5 (1.651 m) Wt 210 lb (95.3 kg) SpO2 99% BMI 34.95 kg/m Pulse Ox: SpO2 Av.7 % Min: 98 % Max: 99 % Supplemental O2: O2 Flow Rate (L/min): 3 L/min Physical Exam Constitutional: Appearance: She is obese. She is not toxic-appearing. HENT: Head: Normocephalic. Right Ear: External ear normal. Left Ear: External ear normal. Eyes: Extraocular Movements: Extraocular movements intact. Cardiovascular: Rate and Rhythm: Normal rate and regular rhythm. Pulmonary: Effort: Pulmonary effort is normal. No respiratory distress. Abdominal: General: Bowel sounds are normal. Palpations: Abdomen is soft. Tenderness: There is no abdominal tenderness. Skin: General: Skin is warm and dry. Neurological: Mental Status: She is alert. She is disoriented and confused. Medications: Scheduled PRN Scheduled Meds[2] PRN Meds[3] Continuous Continuous Meds[4] Assessment Acute, acute on chronic, unstable/uncontrolled chronic problems/diagnoses: # Acute hypoxic and hypercapnic respiratory failure, improved # Acute on chronic HFrEF - 2/2 ICM vs Takotsubo cardiomyopathy. TTE showed LVEF 35% with grade II diastolic dysfunction with increased LAP, 2+ AR # EDWIGE on CKD 3 - improving # Low grade fever, improved - Blood cx (11/17): NGTD # Leukocytosis # Dementia # Delirium # Hypokalemia - monitor and replete PRN # Dysphagia # Debility Stable chronic problems affecting care, new non-acute diagnoses: # HTN - holding lisinopril 5 mg daily. On hydralazine 100 mg TID, Toprol XL 100 mg daily # T2DM with hyperglycemia - A1c 5.5% (11/14/24). SSI, BG checks, hypoglycemia protocol. # Hx of stroke # GABRIELE # Obesity # Hypothyroidism - levothyroxine 50 mcg daily # Bipolar disorder # Anxiety - Cymbalta 30 mg daily, buspar 2.5 mg BID Plan As a result of the above findings & factors, the following mgmt was pursued: - Supplemental O2 as needed, wean as tolerated - Pulmonology evaluated. Noted respiratory issues likely 2/2 acute decompensated HF. Stated okay for discharge from pulmonary standpoint. - Cardiology evaluated. Diuresed patient with IV lasix but noted patient appears euvolemic now. Recommended medical management and stated patient is not a candidate for invasive evaluation due to dementia/debility. On Toprol XL 100 mg daily, lisinopril 5 mg daily, hydralazine 100 mg TID, Imdur 30 mg daily. Discontinued hydrochlorothiazide 25 mg daily and spironolactone 25 mg daily given EDWIGE. Stated patient not a candidate for OAC due to low A fib burden, dementia and debility. Recs noted - Geriatrics evaluated. Recs noted. - Palliative Care evaluated. Recs noted - TECHNICAL ASST evaluated. Recommended pureed diet - Follow-up blood cx - Continue supportive care - Continue chronic medications as able - PT/OT recommended SNF - TCC following for dispo planning. Discussed with reproduction production manager TCC today who noted patient is LTC and does not need auth when medically stable - am labs, replace lytes prn - delirium precautions: schedule melatonin at bedtime and limit nighttime disturbances - DVT prophylaxis: enoxaparin and encourage ambulation Advance Directive: DNR-CCA Anticipated Discharge - Date - TBD, 1-2 days? - Location - Skilled Facility - Pending the following - clinical course, improved/stable labs, negative blood cx x48 hours Extended Emergency Contact Information Primary Emergency Contact: Rosas Kwon Mobile Relation: Son Secondary Emergency Contact: Nicolette Ren Mobile Relation: Sister Sivakumar Walton MD Division of Hospitalist Medicine [employer] [1] Past Medical History: Diagnosis Date Diabetes mellitus (HCC) Hypertension Stroke (HCC) [2] busPIRone, 2.5 mg, Oral, BID DULoxetine, 30 mg, Oral, Daily enoxaparin, 40 mg, SubCUTAneous, Daily famotidine, 20 mg, Oral, Daily gabapentin, 200 mg, Oral, BID hydrALAZINE, 100 mg, Oral, TID insulin lispro, 0-12 Units, SubCUTAneous, TID WC And insulin lispro, 0-12 Units, SubCUTAneous, Nightly isosorbide mononitrate ER, 30 mg, Oral, Daily levothyroxine, 50 mcg, Oral, qAM AC [Held by provider] lisinopril, 5 mg, Oral, Daily melatonin, 3 mg, Oral, Nightly metoprolol succinate XL, 100 mg, Oral, Daily [3] PRN medications: acetaminophen OR acetaminophen, aluminum & magnesium hydroxide-simethicone, xbuekkp-kfupyfdscarat-aewtmpnl, dextrose, dextrose, glucagon (rDNA), glucose, hydrALAZINE, ipratropium-albuterol, labetalol, lidocaine, magnesium hydroxide, naloxone, ondansetron ODT OR ondansetron, oxyCODONE-acetaminophen, phenol, polyethylene glycol (PEG) 3350 [4] Hospitalist Progress Note 11/18/2024 Subjective: Admit Date: 11/13/2024 PCP: Evi Guevara Room#: [id number] A BRIEF HOSPITAL COURSE: Carline Villarreal is a 78 y.o. female with history of HTN, T2DM, CKD 3, stroke, dementia, GABRIELE, obesity, hypothyroidism, chronic pain, bipolar disorder, anxiety who presented to ED from facility on 11/13/24 for shortness of breath. In ED, initial labs significant for bicarb 20, AG 16, BUN 28, Cr 1.41, BG 169, WBC 10.5 wnl, Hb 14.0 wnl, troponin 12, BNP 6,596. Initial VB.229/55.8/32.9. EKG with sinus rhythm. Covid/RSV/flu negative. CXR showed pulmonary vascular congestion R>L, additional hazy and streaky opacities R>L, possible trace layering Right pleural effusion, and no pneumothorax. Blood cx obtained. Given IV solu-medrol 125 mg, IV lasix, and IV abx in ED. Patient required CPAP/BiPAP briefly in ED. ICU evaluated and noted okay for GMF. Admitted for further evaluation and management. Pulmonology consulted/evaluated, and noted respiratory issues likely 2/2 acute decompensated HF. Cardiology consulted/evaluated and diuresed patient. TTE showed LVEF 35% with grade II diastolic dysfunction with increased LAP, 2+ AR. Palliative Care evaluated. Geriatrics evaluated. CT Head (11/17) with no evidence of intracranial hemorrhage or definite acute cortical infarction, but moderate volume loss, periventricular white matter hypodensities, and old lacunar infarct within Right basal ganglia appearing unchanged. Hospital course complicated by EDWIGE. Cardiac medications optimized by Cardiology. PT/OT recommended SNF. Given low grade fever, tachycardia, and leukocytosis, discharge to SNF cancelled on 11/17 and blood cx obtained. Interval History: No overnight issues. Patient sitting in bed, Aox1-2 (person, somewhat knows place/hospital), and slightly confused today. Patient intermittent yelling help and heard from hallway but on evaluation, patient sitting in bed calmly and comfortably and unable to specify what she needs help with. Case and plan discussed with patient and bedside nurse. Questions answered. Adult diet Dysphagia - Pureed 24HR INTAKE/OUTPUT: Intake/Output Summary (Last 24 hours) at 11/18/2024 1217 Last data filed at 11/18/2024 0814 Gross per 24 hour Intake 220 ml Output -- Net 220 ml Past Medical History: Medical History[1] LABS: CBC: Recent Labs 11/16/24 0456 11/17/24 1316 11/18/24 0537 WBC 12.7* 14.7* 12.2* RBC 4.42 4.15 4.05 HGB 14.1 13.3 12.7 HCT 41.5 39.1 39.1 MCV 93.9 94.2 96.5 RDW 14.2 14.3 14.2 PLT 317 280 231 BMP: Recent Labs 11/16/24 0456 11/17/24 1316 11/18/24 0537 NA 142 144 144 K 3.4* 3.2* 2.9* CL 105 108* 108* CO2 23 22* 23 BUN 47* 70* 68* CREATININE 1.65* 2.26* 1.76* GLUCOSE 165* 244* 168* CALCIUM 9.1 8.3* 8.1* ANIONGAP 14* 14* 13 LIVER PROFILE: Recent Labs 11/17/24 1316 AST 65* ALT 51* BILITOT 0.8 ALKPHOS 74 PROT 6.4 PT/INR: No results for input(s): PROTIME, INR in the last 72 hours. CARDIAC ENZYMES: No results for input(s): TROPONINI in the last 72 hours. Procalcitonin: No results found for: PROCAL COVID-19 PCR: No results for input(s): COVID19 in the last 72 hours. Objective: Vitals: BP 113/77 (BP Location: Right arm, Patient Position: Lying) Pulse 77 Temp 36.2 C (97.2 F) (Temporal) Resp 18 Ht 5' 5 (1.651 m) Wt 210 lb (95.3 kg) SpO2 98% BMI 34.95 kg/m Pulse Ox: SpO2 Av.5 % Min: 97 % Max: 100 % Supplemental O2: O2 Flow Rate (L/min): 3 L/min Physical Exam Constitutional: Appearance: She is obese. She is not toxic-appearing. HENT: Head: Normocephalic. Right Ear: External ear normal. Left Ear: External ear normal. Eyes: Extraocular Movements: Extraocular movements intact. Cardiovascular: Rate and Rhythm: Normal rate and regular rhythm. Pulmonary: Effort: Pulmonary effort is normal. No respiratory distress. Abdominal: General: Bowel sounds are normal. Palpations: Abdomen is soft. Tenderness: There is no abdominal tenderness. Skin: General: Skin is warm and dry. Neurological: Mental Status: She is alert. She is disoriented and confused. Medications: Scheduled PRN Scheduled Meds[2] PRN Meds[3] Continuous Continuous Meds[4] Assessment Acute, acute on chronic, unstable/uncontrolled chronic problems/diagnoses: # Acute hypoxic and hypercapnic respiratory failure, improved # Acute on chronic HFrEF - 2/2 ICM vs Takotsubo cardiomyopathy. TTE showed LVEF 35% with grade II diastolic dysfunction with increased LAP, 2+ AR # EDWIGE on CKD 3 - improving # Low grade fever, improved - Blood cx (11/17): NGTD # Leukocytosis # Dementia # Delirium # Hypokalemia - monitor and replete PRN # Dysphagia # Debility Stable chronic problems affecting care, new non-acute diagnoses: # HTN - holding lisinopril 5 mg daily. On hydralazine 100 mg TID, Toprol XL 100 mg daily # T2DM with hyperglycemia - A1c 5.5% (11/14/24). SSI, BG checks, hypoglycemia protocol. # Hx of stroke # GABRIELE # Obesity # Hypothyroidism - levothyroxine 50 mcg daily # Bipolar disorder # Anxiety - Cymbalta 30 mg daily, buspar 2.5 mg BID Plan As a result of the above findings & factors, the following mgmt was pursued: - Supplemental O2 as needed, wean as tolerated - Pulmonology evaluated. Noted respiratory issues likely 2/2 acute decompensated HF. Stated okay for discharge from pulmonary standpoint. - Cardiology evaluated. Diuresed patient with IV lasix but noted patient appears euvolemic now. Recommended medical management and stated patient is not a candidate for invasive evaluation due to dementia/debility. On Toprol XL 100 mg daily, lisinopril 5 mg daily, hydralazine 100 mg TID, Imdur 30 mg daily. Discontinued hydrochlorothiazide 25 mg daily and spironolactone 25 mg daily given EDWIGE. Stated patient not a candidate for OAC due to low afib burden, dementia and debility. Recs noted - Geriatrics evaluated. Recs noted. - Palliative Care evaluated. Recs noted - TECHNICAL ASST evaluated. Recommended pureed diet for today - Follow-up blood cx - Continue supportive care - Continue chronic medications as able - PT/OT recommended SNF - TCC following for dispo planning - am labs, replace lytes prn - delirium precautions: schedule melatonin at bedtime and limit nighttime disturbances - DVT prophylaxis: enoxaparin and encourage ambulation Advance Directive: DNR-CCA Anticipated Discharge - Date - 11/19? - Location - Skilled Facility - Pending the following - clinical course, dispo planning Extended Emergency Contact Information Primary Emergency Contact: Rosas Kwon Mobile Relation: Son Secondary Emergency Contact: Nicolette Ren Mobile Relation: Sister Sivakumar Walton MD Division of Hospitalist Medicine [employer] [facility] [1] Past Medical History: Diagnosis Date Diabetes mellitus (HCC) Hypertension Stroke (HCC) [2] busPIRone, 2.5 mg, Oral, BID DULoxetine, 30 mg, Oral, Daily enoxaparin, 40 mg, SubCUTAneous, Daily famotidine, 20 mg, Oral, Daily gabapentin, 200 mg, Oral, BID hydrALAZINE, 100 mg, Oral, TID insulin lispro, 0-12 Units, SubCUTAneous, TID WC And insulin lispro, 0-12 Units, SubCUTAneous, Nightly isosorbide mononitrate ER, 30 mg, Oral, Daily levothyroxine, 50 mcg, Oral, qAM AC [Held by provider] lisinopril, 5 mg, Oral, Daily melatonin, 3 mg, Oral, Nightly metoprolol succinate XL, 100 mg, Oral, Daily [3] PRN medications: acetaminophen OR acetaminophen, aluminum & magnesium hydroxide-simethicone, quclmsr-negktrpftznxc-xyabikwu, dextrose, dextrose, glucagon (rDNA), glucose, hydrALAZINE, ipratropium-albuterol, labetalol, lidocaine, magnesium hydroxide, naloxone, ondansetron ODT OR ondansetron, oxyCODONE-acetaminophen, phenol, polyethylene glycol (PEG) 3350 [4] Images from the original note were not included. Speech-Language Pathology SPEECH LANGUAGE PATHOLOGY [facility] Dysphagia Treatment Note Patient Name: Carline Villarreal Evaluation Date: 11/18/2024 Date of : 1945 Admission Date: 11/13/2024 10:39 AM Age: 78 y.o. [facility]: [facility] Subjective Patient alert and cooperative. Seen upright in bed. Answers all basic questions with clear vocal quality. Follows all basic commands. No visitors at bedside. Spoke with WEI Ackerman who cleared pt for treatment. Current Diet: Dietary Orders (From admission, onward) Start Ordered 11/13/24 1500 Adult diet Regular Diet effective now Question: Diet type Answer: Regular 11/13/24 1507 Aspiration Precautions: - Upright positioning for all PO intake - Slow rate of intake - Small bites/sips - 1:1 Assistance - PO only when fully alert Oxygen: Oxygen Therapy: Supplemental oxygen O2 Delivery Method: Nasal cannula O2 Flow Rate (L/min): 3 L/min Pain: Pt denies any current pain. PPE Worn: gloves Objective & Assessment Dysphagia Treatment # of Activities: 1 Dysphagia Activity 1: Assessment of diet tolerance Noted patient's recommendation of puree diet with thin liquids; pt remains on regular diet. Patient reports consuming pancake this morning, unable to recall previous date meal consumption/order. Patient consumed pudding trials with therapist via clinician feed without difficulty. Patient trialed small amount of jem cracker moistened with pudding due to edentulous state. Patient with decreased mastication noted and moderate amount of unchewed cracker remain in the left buccal cavity in which patient is unaware of and unable to remove independently. Patient intakes sips of thin liquid via straw without difficulty. Patient does not exhibit overt s/s airway compromise or change in vocal quality during session this date. Messaged RN and MD re: diet recommendations from previous date and continued recommendation for puree textures. Plan & Recommendations Plan: Continue acute TECHNICAL ASST therapy per initial plan of care and established goals. Recommend Pureed solids and Thin liquids and meds crushed in puree and the following precautions: - Upright positioning for all PO intake - Slow rate of intake - Small bites/sips - Check mouth for pocketing - PO only when fully alert D/C Recommendations: to be determined Education Education Given: swallowing strategies, diet recommendations Given To: patient Response: needs reinforcement Goals Patient Stated Goal: To have a drink of water Encounter Problems Encounter Problems (Active) Swallowing Patient will tolerate the least restrictive diet consistency to allow for safe consumption of daily meals (Progressing) Start: 11/17/24 Patient will demonstrate safe swallowing Intervention/techniques (Progressing) Start: 11/17/24 Therapy Time TECHNICAL ASST Individual Minutes Time In: 1022 Time Out: 1042 Minutes: 20 Herber Simmons MA, [facility]-TECHNICAL ASST Images from the original note were not included. [facility] [place], Pulmonary Medicine [address] [place] [address] [phone] Patient - Carline Villarreal, Age - 78 y.o. - 1945 Room Number - [id number]/[id number] A Consulting - Sivakumar Walton MD Primary Care Physician - Evi Guevara Acct: No I do not have problem with the patient you know he was kind of he wanted to go home today I just kept him so Maybe can do little earlier okay [phone] [phone] Date of Admission - 11/13/2024 10:39 AM Hospital Day - 5 Chief Complaint Carline Villarreal is a 78 y.o. female who pulmonary is following for respiratory failure Interval History Patient awake and alert talking no distress currently on room air Saturation 97% She is afebrile Chest x-ray 11/17 No acute infiltrate no significant change from previous chest x-ray HPI Carline Villarreal is a 78 y.o. female admitted for Shortness of breath noted to be in acute hypoxic hypercapnic respiratory failure decompensated congestive heart failure Patient does have a history of dementia as per chart group home resident, diabetes mellitus hypertension stroke Admitted with above complaint Initial VBG did show pH 7.229 pCO2 of 55 pO2 of 32 Patient received IV Lasix diuresed well placed on NIV Follow-up VBG showed pH 7.74 pCO2 of 30 and PO2 of 47 EKG showed T inversion ST ST depression elevated troponin This morning apparently has episode of tachyarrhythmia as per cardiology atrial fibrillation Her saturation was 97 percentile feeling much better this morning however she is not a good historian Currently she was on room air saturation was 97 percentile Never smoked Not on PAP therapy at home Apparently came from [facility] Chest x-ray reviewed interpreted by me Vascular congestion with a small bilateral pleural effusion All other systems reviewed Objective Vitals: BP 113/77 (BP Location: Right arm, Patient Position: Lying) Pulse 77 Temp 36.2 C (97.2 F) (Temporal) Resp 18 Ht 5' 5 (1.651 m) Wt 210 lb (95.3 kg) SpO2 99% BMI 34.95 kg/m Pulse Ox: SpO2 Av.8 % Min: 97 % Max: 100 % Supplemental O2: O2 Flow Rate (L/min): 3 L/min I/O 24HR INTAKE/OUTPUT: Intake/Output Summary (Last 24 hours) at 11/18/2024 1124 Last data filed at 11/18/2024 0814 Gross per 24 hour Intake 220 ml Output -- Net 220 ml Exam General appearance: Appears comfortable no distress on room air sat 97% HEENT: Normocephalic, atraumatic. Pupils equil and round, External ear normal, conjunctivae normal, negative for scleral icterus. No congestion. Neck: ROM normal, supple, trachea midline. No lymphadenopathy Cardiovascular: Irregular rhythm. Heart sounds normal. Negative for murmur, friction rub or gallop. Tachycardic Pulmonary: Effort normal, no respiratory distress. Moderate air entry Rales posteriorly No wheezing Abdomen: Soft, non distended, non tender, bowel sounds normal. No palpable masses. No Hepatomegaly Musculoskeletal: ROM normal, Negative for swelling, tenderness or deformity. Skin: Warm, dry. Skin color, texture, turgor normal. Negative for rashes or lesions. Extremities: No clubbing, cyanosis, 1+ bipedal edema Neurological: No focal deficits. Alert and oriented x 1. Cranial nerves II-XII are intact Lymphatics: No cervical or axillary lymphadenopathy Psychiatric: Mood, behavior, thought content normal. Cooperative with exam. Medications Current Medications Scheduled Meds[1] PRN Mediations PRN Meds[2] IV Drips/Infusions Continuous Meds[3] Labs CBC Results from last 7 days Lab Units 11/18/24 0537 WBC AUTO 10*3/uL 12.2* HEMOGLOBIN g/dL 12.7 HEMATOCRIT % 39.1 PLATELETS 10*3/uL 231 BMP: Results from last 7 days Lab Units 11/18/24 0537 11/17/24 1316 11/16/24 0456 SODIUM mmol/L 144 144 142 POTASSIUM mmol/L 2.9* 3.2* 3.4* CHLORIDE mmol/L 108* 108* 105 CO2 mmol/L 23 22* 23 BUN mg/dL 68* 70* 47* CREATININE mg/dL 1.76* 2.26* 1.65* GLUCOSE mg/dL 168* 244* 165* CALCIUM mg/dL 8.1* 8.3* 9.1 ABG: Results from last 7 days Lab Units 11/13/24 1532 11/13/24 1056 SOURCE OF OXYGEN Nasal Cannula (LPM) Nasal Cannula (LPM) LIVER PROFILE Results from last 7 days Lab Units 11/17/24 1316 11/13/24 1056 ALK PHOS U/L 74 101 BILIRUBIN TOTAL mg/dL 0.8 0.6 PROTEIN TOTAL g/dL 6.4 6.8 ALT U/L 51* 11 AST U/L 65* 20 INR PTT No results found for: PTT Cultures Influence pcr neg Radiology Exam Date/Time: 11/13/2024 11:11 Procedure: XR CHEST 1 VIEW Ordering Provider: SALEEM AMY Reason For Exam: COUGH CHEST - PORTABLE: CLINICAL INDICATION: COUGH TECHNIQUE: Portable AP COMPARISON: None. IMPRESSION: FINDINGS/IMPRESSION: Limitations: Mild patient rotation Lines, tubes, and devices: None. Cardiomediastinal silhouette: Heart size is within normal limits. Atherosclerotic calcifications in the thoracic aorta. Lungs/Pleura: Pulmonary vascular congestion right side greater than left. Additional hazy and streaky opacities right greater than left lung base suspicious for pneumonia. There may be a trace layering right pleural effusion. No pneumothorax. Osseous structures: Degenerative spondylosis in the visualized spine. Postsurgical changes shoulders. Soft tissues: No soft tissue abnormality is detected. Active Hospital Problem List Problem List[4] Assessment and Plan -Acute hypoxic hypercapnic respiratory failure improved - Likely secondary to acute decompensated congestive heart failure which clinically has improved after brisk diuresis - No signs of CO2 narcosis, repeat VBG did show improved hypercarbia as well as pH - Chest x-ray more compatible with congestive heart failure with pleural effusion - Clinical suspicion for pneumonia is low in view of normal WBC count afebrile normal procalcitonin - Cardiac arrhythmia/abnormal EKG T inversion ST depression/elevated troponin, previous echocardiogram did show moderate aortic regurgitation Patient clinically appears to have improved since admission with brisk diuresis Likely has underlying ischemic heart disease leading to congestive heart failure as well as cardiac arrhythmia Cardiology evaluation and recommendation noted Clinical suspicion for pneumonia is low, would recommend de-escalation of antibiotics pending culture result Will repeat the chest x-ray in the morning to follow-up CHF as well as pleural effusion Patient saturating well on room air currently As noted above chest x-ray did show marked improvement saturating well on room air not using PAP therapy Echocardiogram did show ejection fraction 35% and left ventricular dysfunction Cardiology adjusting medication Will discontinue the PAP therapy at the patient not using it Patient is off antibiotics Oxygen supplement titrate to keep O2 sat 92 percentile Pulmonary status is stable saturating well on room air Chest x-ray no acute infiltrate Okay from pulmonary standpoint for discharge Advance Directive: DNR-CCA Case discussed with nurse and patient/ Questions and concerns addressed. Portions of the information within this encounter were entered using an electronic dictation system. Best attempts were made to edit/proofread the information prior to note completion. Despite the review of information, some errors may remain. If there are questions related to the information contained within the note please contact the signing provider directly. [1] busPIRone, 2.5 mg, Oral, BID DULoxetine, 30 mg, Oral, Daily enoxaparin, 40 mg, SubCUTAneous, Daily famotidine, 20 mg, Oral, Daily gabapentin, 200 mg, Oral, BID hydrALAZINE, 100 mg, Oral, TID insulin lispro, 0-12 Units, SubCUTAneous, TID WC And insulin lispro, 0-12 Units, SubCUTAneous, Nightly isosorbide mononitrate ER, 30 mg, Oral, Daily levothyroxine, 50 mcg, Oral, qAM AC [Held by provider] lisinopril, 5 mg, Oral, Daily melatonin, 3 mg, Oral, Nightly metoprolol succinate XL, 100 mg, Oral, Daily potassium chloride, 10 mEq, IntraVENous, q1h [2] PRN medications: acetaminophen OR acetaminophen, aluminum & magnesium hydroxide-simethicone, digydqc-aynxfckruulkf-ikbwtxjb, dextrose, dextrose, glucagon (rDNA), glucose, hydrALAZINE, ipratropium-albuterol, labetalol, lidocaine, magnesium hydroxide, naloxone, ondansetron ODT OR ondansetron, oxyCODONE-acetaminophen, phenol, polyethylene glycol (PEG) 3350 [3] [4] Patient Active Problem List Diagnosis Left-sided weakness Hypertensive chronic kidney disease with stage 1 through stage 4 chronic kidney disease, or unspecified chronic kidney disease Cerebrovascular accident (HCC) Bipolar disorder (HCC) Anxiety Vitamin D deficiency Recurrent major depression (HCC) Unilateral paralysis as late effect of cerebrovascular accident (CVA) (HCC) Migraine headache Hypothyroid HTN (hypertension) Hyperlipidemia Gout Gastroesophageal reflux disease Dysphagia Dementia (HCC) 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 PHYSICAL THERAPY [facility] Name/MRN: Carline Villarreal ([id number]) Date: 11/18/2024 Chart review completed. PT attempted. Patient with family, visiting at bedside. 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 Max encouragement provided with no success. PT will continue to follow. Will re-attempt another time/date as schedule permits. Chante Pollard, PRODUCTS MECHANICAL DESIGN ENGINEER Cosigned by Ivelisse Harley PT at 11/18/2024 1:15 PM EDT Pt chart reviewed and attempted to see. Pt with visitors in room, declining therapy at this time. Will continue to monitor and reattempt as schedule allows. Alba DUNLAP/Nicole Cosigned by Nela Joseph OT at 11/18/2024 2:54 PM EDT Hospitalist Progress Note 11/17/2024 [phone]: Please page me ([phone]) for patient care issues. [phone]: Please page [facility] Hospitalist for any issues. Subjective: Admit Date: 11/13/2024 PCP: Evi Guevara Room#: B4-466/[id number] Annamaria Villarreal is a 78 y.o. female who presents with Acute exacerbation of chronic heart failure (HCC) Interval History: 78-year-old female patient is admitted with acute on chronic CHF. Cardiology is consulted, echo revealed 35% EF. Echo is consistent with Takotsubo, and it was decided that she would not be a candidate for invasive treatment, given her age and dementia. Also not a candidate for oral anticoagulation given her dementia her speech is unintelligible and she cannot give any review of systems. Today her speech is still unintelligible, spoke with her son and, she has teeth at the group home. She was febrile today morning, at 100.1 and is unable to give any review of systems. Labs done today show white count of 14,000 K of 3.2 and creatinine increased to 2.2 Discussed with geriatric service and ordered urine analysis, chest x-ray and blood cultures since she is also tachycardic. Adult diet Regular 24HR INTAKE/OUTPUT: No intake or output data in the 24 hours ending 11/17/24 1554 LABS: CBC: Recent Labs 11/15/24 0550 11/16/24 0456 11/17/24 1316 WBC 15.0* 12.7* 14.7* RBC 4.42 4.42 4.15 HGB 13.8 14.1 13.3 HCT 40.9 41.5 39.1 MCV 92.5 93.9 94.2 RDW 14.1 14.2 14.3 PLT 308 317 280 BMP: Recent Labs 11/15/24 0550 11/16/24 0456 11/17/24 1316 NA 144 142 144 K 3.3* 3.4* 3.2* CL 107 105 108* CO2 22* 23 22* BUN 40* 47* 70* CREATININE 1.56* 1.65* 2.26* GLUCOSE 169* 165* 244* CALCIUM 9.2 9.1 8.3* ANIONGAP 15* 14* 14* LIVER PROFILE: Recent Labs 11/17/24 1316 AST 65* ALT 51* BILITOT 0.8 ALKPHOS 74 PROT 6.4 PT/INR: No results for input(s): PROTIME, INR in the last 72 hours. CARDIAC ENZYMES: No results for input(s): TROPONINI in the last 72 hours. Procalcitonin: Lab Results Component Value Date PROCAL 0.08 (H) 11/15/2024 [facility] Objective: Vitals: BP 152/87 Pulse 117 Temp 36.9 C (98.4 F) (Temporal) Resp 16 Ht 5' 5 (1.651 m) Wt 210 lb (95.3 kg) SpO2 100% BMI 34.95 kg/m Pulse Ox: SpO2 Av.8 % Min: 96 % Max: 100 % Supplemental O2: O2 Flow Rate (L/min): 3 L/min 11/17/2024 General appearance: Awake alert oriented x 1, appears to be in no distress Cardiovascular: S1, S2, regular rhythm, no murmurs gallops or rubs Respiratory: Diminished breath sounds bilaterally, no wheezing or rhonchi Abdomen: Benign, positive bowel sounds, soft, nontender Musculoskeletal: No edema, no calf tenderness. Skin: No rash or lesions Neurological: Awake alert oriented x 1, no acute motor or sensory deficits Medications: Continuous Meds[1] Scheduled Meds[2] PRN Meds[3] Assessment Acute on chronic heart failure with reduced ejection fraction-I was given IV Lasix, cardiology service is following Speech disturbance-looks more to be from lack of teeth, discussed with geriatric service and ordered CT of the head which is unremarkable for acute pathology or acute stroke Acute kidney injury-creatinine increased to 2.2, will hold lisinopril, start IV fluids Sepsis syndrome, meets sepsis criteria will check blood cultures,, start IV fluids, hold lisinopril, chest x-ray and urine analysis SEP- CORE MEASURE DATA SIRS Criteria Sepsis Criteria Severe Sepsis Criteria Septic Shock Criteria Must meet 2: [x] Temperature > 100.4 F (38 C) or < 96.8 F (36 C) [x] HR > 90 [] RR > 20 [x] WBC > 12 or < 4 or 10% bands Must be confirmed or suspected to move forward with diagnosis of sepsis. Must select at least one: [x] Bacterial Infection Confirmed or Suspected. [] Viral Infection Confirmed or Suspected. [] No infection present. Patient does not meet criteria for Sepsis. Must meet 1: [] Lactate > 2 or [x] Signs of Organ Dysfunction: - SBP < 90 or MAP < 65 - Altered mental status - Creatinine > 2 or increased from baseline - Urine Output < 0.5 ml/kg/hr - Bilirubin > 2 - INR > 1.5 - Platelets < 100,000 - Acute Respiratory Failure as evidenced by new need for NIPPV or mechanical ventilation [] No criteria met for Severe Sepsis. Must meet 1: [] Lactate = or > 4 or [] SBP < 90 or MAP < 65 for at least two readings in the first hour after fluid bolus administration [] No criteria met for Septic Shock. Patient Vitals from 11/16/24 2301 to 11/17/24 0000 BP Pulse SpO2 11/16/24 2349 (!) 173/91 103 99 % Recent Labs 11/15/24 0550 11/16/24 0456 11/17/24 1316 WBC 15.0* 12.7* 14.7* CREATININE 1.56* 1.65* 2.26* BILITOT -- -- 0.8 PLT 308 317 280 Sepsis Identified at 1500 hours. Fluid resuscitation at 75 mL/h because of the history of CHF, recently she got Lasix Infection Source: Unknown Reassessment Exam: Not applicable. Patient does not have Septic Shock. Ni Sam MD Takotsubo cardiomyopathy versus CAD, added Lopressor Aldactone and lisinoprilBilateral HAP rule out -abx discontinued yesterday, monitor off antibiotics Hypokalemia - replace potassium Type 2 DM with hyperglycemia Uncontrolled hypertension - added hydrochlorothiazide from tomorrow and added spironolactone , , lisinopril on hold Delirium symptoms with underlying dementia-she also lacks capacity for medical decision making OHS/GABRIELE at bedtime bipap Bilateral pressure ulcers on buttocks- POA Episodes of nonsustained atrial fibrillation -, rate control with metoprolol and may increase to 100 mgs bid if needed Chronic problems Bipolar disorder CKD stage III with creatinine at baseline of 1.3-1.5 , today creatinine at 1.6, EDWIGE RULED OUT Anxiety with depressive symptoms-continue BuSpar Hx CVA with left sided sequelae Hypothyroid-continue levothyroxine Obesity class 2 Hx gout Hx migraines Insomnia Plan Reviewed CBC BMP and ordered CBC BMP in a.m. Added IV fluids since she meets criteria for severe sepsis, added 75 cc an hour because of CHF Discussed with palliative service and the family is not ready for hospice, already DNR CCA, palliative service signed off Discussed with her son about the febrile episode and sepsis workup and answered questions Speech therapy recommends modified diet Cancel discharge planning to [facility] because of this febrile episode Decreased gabapentin to 300 mg twice daily Discussed with geriatric service, ordered chest x-ray, urine analysis, blood cultures -am labs, replace lytes prn -increase activity Diet Adult diet Regular DVT Prophylaxis [x] Lovenox, [] Heparin, [] SCDs, [] Ambulation [] Already on Anticoagulation GI Prophylaxis [] PPI, [] H2 Liana, [] Carafate, [] Diet/Tube Feeds Code Status DNR-CCA Disposition Patient requires continued admission due to congestive heart failure MDM [] Low, [] Moderate,[x] High Patient's risk as above Total time spent (which include face to face and non face to face encounters) 55 minutes Toxic drug monitoring/narrow therapeutic index drug monitoring : # Drug name : # Route administered : # Method of monitoring : Extended Emergency Contact Information Primary Emergency Contact: Cher,Rosas Mobile Relation: Son Secondary Emergency Contact: Nicolette Ren Mobile Relation: Sister Advance Directive: DNR-CCA Discharge planning: TBD Ni Sam MD Division of Hospitalist Medicine [place] Medical Services[place] [place] [1] [2] busPIRone, 2.5 mg, Oral, BID DULoxetine, 30 mg, Oral, Daily enoxaparin, 40 mg, SubCUTAneous, Daily famotidine, 20 mg, Oral, Daily [START ON 11/18/2024] gabapentin, 200 mg, Oral, BID hydrALAZINE, 100 mg, Oral, TID insulin lispro, 0-12 Units, SubCUTAneous, TID WC And insulin lispro, 0-12 Units, SubCUTAneous, Nightly isosorbide mononitrate ER, 30 mg, Oral, Daily levothyroxine, 50 mcg, Oral, qAM AC [Held by provider] lisinopril, 5 mg, Oral, Daily melatonin, 3 mg, Oral, Nightly metoprolol succinate XL, 100 mg, Oral, Daily [3] PRN medications: acetaminophen OR acetaminophen, aluminum & magnesium hydroxide-simethicone, plfqthk-brtsbinvmqvmu-dttznmta, dextrose, dextrose, glucagon (rDNA), glucose, hydrALAZINE, ipratropium-albuterol, labetalol, lidocaine, magnesium hydroxide, naloxone, ondansetron ODT OR ondansetron, oxyCODONE-acetaminophen, phenol, polyethylene glycol (PEG) 3350 Images from the original note were not included. Speech-Language Pathology SPEECH LANGUAGE PATHOLOGY [facility] Bedside Swallow Evaluation Patient Name: Carline Villarreal Evaluation Date: 11/17/2024 Date of : 1945 Admission Date: 11/13/2024 10:39 AM Age: 78 y.o. [facility]: [facility] IMPRESSION: S/s oropharyngeal dysphagia. No overt clinical s/s pulmonary compromise with PO. Risk factors for aspiration include lethargy, history of CVA, dementia. RECOMMENDATION: Recommend Pureed solids and Thin liquids and meds crushed in puree and the following precautions: - Upright positioning for all PO intake - Slow rate of intake - Small bites/sips - 1:1 Assistance - PO only when fully alert Dysphagia NOMS: Level 4: Swallowing is safe but usually intake is limited to single consistency. Moderate cues are needed to use compensatory strategies, and/or individual has mild to moderate diet restrictions and/or still requires tube feeding. Pt would benefit from skilled acute TECHNICAL ASST services Ensure patient tolerance of the recommended diet, Assess for potential diet upgrade, and Formal instruction of swallow strategies. Frequency: 3 days/wk for 2 weeks Barriers: Limited safety awareness, Limited insight into deficits, and Decreased endurance Prognosis: fair D/C Recommendations: to be determined Subjective Patient lethargic and minimally cooperative. Seen upright in bed. Answers few basic questions with clear, weak vocal quality. Follows few basic commands. No visitors at bedside . Spoke with RN Desire' who cleared pt to be evaluated. Dysphagia History: No history of TECHNICAL ASST services in EMR with retrospective chart review; Pt passed RN swallowing screen in December 2023 Baseline Diet: regular/thin Current Diet: regular/thin Dietary Orders (From admission, onward) Start Ordered 11/13/24 1500 Adult diet Regular Diet effective now Question: Diet type Answer: Regular 11/13/24 1507 Tube Feeding: no Tracheostomy: no Recent Chest Xray/CT of Chest: XR chest 1 view 11/15/2024 Impression No acute cardiopulmonary abnormality. 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) 11/13/2024 Constipation 11/13/2024 Chronic pain 11/13/2024 Osteoarthritis 11/13/2024 Insomnia 11/13/2024 Left-sided weakness 12/16/2023 Hypertensive chronic kidney disease with stage 1 through stage 4 chronic kidney disease, or unspecified chronic kidney disease 02/19/2023 Hyperlipidemia, unspecified 09/28/2022 Vitamin D deficiency 09/21/2022 Bipolar disorder (HCC) 01/06/2019 Recurrent major depression (HCC) 01/06/2019 Unilateral paralysis as late effect of cerebrovascular accident (CVA) (HCC) 01/06/2019 Migraine headache 01/06/2019 Hypothyroid 01/06/2019 Gout 01/06/2019 Gastroesophageal reflux disease 01/06/2019 Dementia (HCC) 01/06/2019 Obesity 01/06/2019 Psoriasis 01/06/2019 Cerebrovascular accident (HCC) 07/19/2017 Anxiety 07/19/2017 HTN (hypertension) 07/19/2017 Hyperlipidemia 07/19/2017 History of Present Illness: CHIEF COMPLAINT: SOB Reason for Admission: PNA Lower lobes History Obtained From: patient, chart, staff HISTORY OF PRESENT ILLNESS: Carline is a 78 y.o. female with past medical history below who presents with chief complaint listed above. Pt reports from SNF w/ SOB, reported 76% sp02 on Room Air when EMS first arrived. She was placed on BIPAP during transport to ED. Does have PMH notable for CVA with left sided sequelae, T2DM, HTN, Hypertensive CKD, Anxiety, Obesity, Migraine, Gout, Insomnia and Dementia She is awake and cooperative in ED Notable first trop 12 with delta trop HS of 124. Notable first ABG appears more consistent with VBG acidotic, on repeat ok for floor. Patient evaluated by pulm/crit care. Plan for Bipap nightly with NC during day. Imaging in ED notable for streaky opacities concerning for PNA in bilateral lobe bases Right >left and pulmonary congestion Right>left. She denies any chest pain or palpitations, no headache, nausea vomiting, vision change, (baseline dementia w/o exacerbation) ECG in ED did have some notable T wave inversion without ST component. Cardiology consulted for HF management in ED, troponin appears demand mediated. Will admit for further evaluation and management. Pain: Pt denies any current pain. PPE Worn: gloves Objective Bedside swallow eval completed. Oral Motor Mechanism Very limited oral motor exam due to pt's lethargy and reduced ability to follow directions. Lingual Structure/Function (CN XII) - Generalized weakness Secretion Management - WFL Volitional Swallow - Present Dentition - Edentulous Oral Hygiene: moist, clean Swallowing Examination PO Trials - thin liquid, (straw) - puree, (teaspoon) Oral Phase Pt with adequate oral receipt of PO trials. No anterior spillage. Unable to assess mastication.. Oral transit time appears prolonged. No oral residue. Additional Observations: Pt edentulous and with reduced alertness. Held regular texture solid trials at this time for patients safety. Pharyngeal Phase Hyolaryngeal excursion unable to be assessed due to pt's body habitus. 1-2 swallows per bolus observed, likely indicative of adequate pharyngeal clearance. No overt clinical s/s pulmonary compromise as evidenced by no cough, no throat clear, and no change in vocal quality. Education Education Given: safety, swallowing strategies, diet recommendations Given To: patient and RN Response: verbalizes understanding Goals Patient Stated Goal: Patient unable to participate in goal setting at this time. Encounter Problems Encounter Problems (Active) Swallowing Patient will tolerate the least restrictive diet consistency to allow for safe consumption of daily meals Start: 11/17/24 Patient will demonstrate safe swallowing Intervention/techniques Start: 11/17/24 Therapy Time TECHNICAL ASST Individual Minutes Time In: 1300 Time Out: 1318 Minutes: 18 Sindhu Lopes CCC-TECHNICAL ASST [1] Past Medical History: Diagnosis Date Diabetes mellitus (HCC) Hypertension Stroke (HCC) [2] No past surgical history on file. [facility] [place] [facility] [place] Cardiology /Electrophysiology Progress Note HPI / Interval History: Carline Villarreal has a history of dementia, diabetes, HTN, stroke who presented to [facility] with SOB. Pro-BNP 6596, hs trop 12-124. She was seen by Dr. Hinton in consultation. TTE with new LV dysfunction with EF 35% and WMA consistent with Takotsubo cardiomyopathy vs CAD. She was diuresed with IV lasix, last dose of IV lasix 11/14/2024, and started on GDMT. She continues to be confused, oriented to self only. Appears comfortable, somewhat lethargic in bed. Does not answer questions. Pt is recommended for conservative medical therapy. Assessment/Plan HF NYHA Class [] I [x] II [] III [] IV []Unable to assess [] N/A HFrEF 2/2 ICM vs takotsubo cardiomyopathy, Stage C, Class II, EF 35% per TTE 11/2024 - daily weight not documented, poor mobility - no current HF symptoms and continues to appear euvolemic on exam - continue Toprol 100 mg po daily continues - lisinopril decreased from 20 mg to 5 mg po daily - spironolactone 25 mg po daily, hydrochlorothiazide 25 mg daily discontinued due to renal insuffiencey - Hydralazine 100 mg three times daily and Imdur 30 mg daily started to optimize GDMT. Will continue to monitor BP tolerance. - medical management recommended, she is not a candidate for invasive evaluation due to dementia/debility HTN, improving - continue Toprol 100 mg po daily - lisinopril 5 mg po daily - hydralazine 100 mg three times daily and Imdur 30 mg daily continues PAF - 2 episodes of nonsustained Afib - not currently on tele - continue Toprol 100 mg po daily - not a candidate for OAC due to low afib burden, dementia and debility - heart rate irregular on exam, rate controlled Elevated trop - hs trop 12-124 - no angina - conservative management recommended CKD - baseline creatinine 1.2-1.4 - creatinine 1.65 today with initiation of HF meds - as outlined above would avoid Rubia/ARB/MRA - diuretics to be given as needed Dispo: will sign off from a Cardiac standpoint. Will continue to see as needed. Please call the office if any additional questions. Pt lives at [facility] Medications: busPIRone, 2.5 mg, Oral, BID DULoxetine, 30 mg, Oral, Daily enoxaparin, 40 mg, SubCUTAneous, Daily famotidine, 20 mg, Oral, Daily gabapentin, 400 mg, Oral, BID hydrALAZINE, 100 mg, Oral, TID insulin lispro, 0-12 Units, SubCUTAneous, TID WC And insulin lispro, 0-12 Units, SubCUTAneous, Nightly isosorbide mononitrate ER, 30 mg, Oral, Daily levothyroxine, 50 mcg, Oral, qAM AC lisinopril, 5 mg, Oral, Daily melatonin, 3 mg, Oral, Nightly metoprolol succinate XL, 100 mg, Oral, Daily Infusion Medications: Continuous Meds[1] Physical Examination: Vitals: 11/17/24 0337 11/17/24 0340 11/17/24 0732 11/17/24 1151 BP: 156/87 (!) 178/118 151/79 BP Location: Left arm Patient Position: Lying Pulse: 106 97 115 106 Resp: 20 16 Temp: 36.8 C (98.2 F) 37.8 C (100.1 F) TempSrc: Temporal Temporal SpO2: 98% 96% 100% 99% Weight: Height: No intake or output data in the 24 hours ending 11/17/24 1319 Patient Vitals for the past 168 hrs: Weight Weight Method 11/14/24 1300 210 lb (95.3 kg) -- 11/14/24 0500 210 lb (95.3 kg) -- 11/13/242025 210 lb (95.3 kg) Bed scale 11/13/24 1315 225 lb 1.4 oz (102 kg) -- Physical Exam Vitals reviewed. HENT: Head: Normocephalic and atraumatic. Neck: Vascular: No JVD. Cardiovascular: Rate and Rhythm: Normal rate. Rhythm irregular. Heart sounds: Normal heart sounds. Comments: Rate controlled Pulmonary: Effort: Pulmonary effort is normal. Breath sounds: Normal breath sounds. Comments: Diminished anteriorly Abdominal: General: Abdomen is flat. Bowel sounds are normal. Palpations: Abdomen is soft. Musculoskeletal: Right lower leg: No edema. Left lower leg: No edema. Comments: Mild generalized edema BLE Skin: General: Skin is warm and dry. Neurological: Mental Status: She is alert. Mental status is at baseline. Psychiatric: Mood and Affect: Mood normal. Cognition and Memory: Cognition is impaired. Memory is impaired. Laboratory Tests: TROPONIN I, CONVENTIONAL SENSITIVITY TROPONIN I Date Value Ref Range Status 12/16/2023 <0.012 <0.034 ng/mL Final 12/16/2023 <0.012 <0.034 ng/mL Final 12/16/2023 <0.012 <0.034 ng/mL Final TROPONIN I, HIGH SENSITIVITY Troponin HS Serial Baseline Date Value Ref Range Status 11/13/2024 12 <=14 ng/L Final Comment: In individuals presenting with symptoms > 2h, a baseline troponin <= 5 ng/L suggests acute cardiac injury is unlikely and further serial testing is generally not indicated. 2h Troponin HS (Serial 2nd Troponin) Date Value Ref Range Status 11/13/2024 124 (H) <=14 ng/L Final Comment: Rising or falling troponin delta greater than 15 ng/L as compared to baseline value is significant for acute cardiac injury. No results found for: TROPDELTBASE No results found for: TROPHS3 No results found for: TROPDELTSEC Recent Labs 11/15/24 0550 11/16/24 0456 NA 144 142 K 3.3* 3.4* CL 107 105 CO2 22* 23 BUN 40* 47* CREATININE 1.56* 1.65* Recent Labs 11/15/24 0550 11/16/24 0456 WBC 15.0* 12.7* HGB 13.8 14.1 HCT 40.9 41.5 MCV 92.5 93.9 PLT 308 317 No results for input(s): BNP in the last 72 hours. No results for input(s): TRIG, HDL, LDLCALC, CHOL in the last 72 hours. No results found for: LDLCHOLESTER Lab Results Component Value Date TSH 3.36 11/15/2024 EF BP Date Value Ref Range Status 11/14/2024 35 (A) 55 - 100 % Final 11/13/24 TRANSTHORACIC ECHOCARDIOGRAM (TTE) COMPLETE (CONTRAST/BUBBLE/3D PRN) 11/14/2024 4:07 PM (Final) Interpretation Summary Technically difficult study. Left Ventricle: Left ventricle size is normal. Mildly increased wall thickness. Moderately reduced left ventricular systolic function. EF by 2D Simpsons Biplane is 35%. See diagram for wall motion findings. Grade II diastolic dysfunction with increased LAP. The following segments are akinetic: mid anterior, mid anteroseptal, mid inferoseptal, mid inferior, mid inferolateral, mid anterolateral, apical anterior, apical septal, apical inferior, apical lateral and apex.The following segments are hypokinetic: basal anteroseptal, basal inferoseptal and basal inferior.All other segments are normal. Findings may be consistent with Takotsubo cardiomyopathy vs. CAD, recommend clinical correlation. Right Ventricle: Right ventricle size is normal. Normal systolic function. TAPSE is normal. Aortic Valve: Not well visualized. Thickened cusps. At least moderate (2+) regurgitation, not well visualized on this study. Tricuspid Valve: Moderately elevated RVSP. RVSP is 53 mmHg. Left Atrium: Left atrium size is severely increased (LA volume index >48 mL/m2). Aorta: Normal sized sinuses of Valsalva. Mildly dilated ascending aorta. Ao ascending diameter is 3.6 cm. Mildly dilated aortic arch. Ao arch diameter is 3.6 cm. Compared to study dated December 17, 2023 the LVEF is worse with new wall motion abnormalities. The aortic regurgitation was present, and may be similar to slightly worse. Signed by: Nishant Kaur MD on 11/14/2024 4:07 PM Other reports reviewed: Cardiac Tests: Telemetry findings reviewed: not on tele EF BP Date Value Ref Range Status 11/14/2024 35 (A) 55 - 100 % Final AGGIE Dockery CNP Date Of Service 11/17/2024 [1] Images from the original note were not included. OCCUPATIONAL THERAPY [facility] Name/MRN: Carline Villarreal ([id number]) Date: 11/17/2024 Chart reviewed. Attempt to see pt for OT session. Pt sleeping upon arrival did not wake to knocking or verbal introduction, required tactile stimulation to arouse. Pt minimally verbal but declines multiple tx options for participation in therapy at this time. OT will continue to follow and re attempt to see as schedule permits. RASHMI Abernathy Cosigned by Mya Dee OT at 11/17/2024 1:15 PM EDT [facility] Geriatric Medicine Inpatient Consult Service Admission Date: 11/13/2024 Assessment Principal Problem: Acute exacerbation of chronic heart failure (HCC) Plan Acute Metabolic Encephalopathy --Etiology likely EDWIGE/uremia, possible infection? (Leukocytosis), hospital environment, CHF exacerbation --Continue to treat underlying cause --Anticipate she may need gentle IV fluids due to EDWIGE. Hospitalist reports they will be starting fluids --Recommend further infectious workup, including UA. She would not be able to report urinary symptoms with current mental status --Consider ammonia level due to mild transaminitis --Lower gabapentin to 200 mg BID due to EDWIGE. Will start this dose tomorrow. No gabapentin tonight. Hold if lethargic --Stop prn sumatriptan (has not used here) --CT head obtained today. No acute process --Encourage PO intake, time up in chair, family visits, and sleep hygiene --If agitated, assess for and consider treating for pain --QTc= 566 --Avoid antipsychotics due to prolonged qtc. Patient is currently hypoactive. Do not anticipate need for agitation medications at this time --Continue scheduled melatonin at HS --Monitor for constipation/urinary retention - last BM 11/17 --Possible medication contributions: gabapentin, percocet (last received 11/15) Dementia --Lives in [facility] facility --History of stroke with worsening cognitive decline. --Try to avoid anticholinergic medications --11/17: Delirious today Debility --Contributing factors include stroke, Dementia, Chronic pain, heart failure --nathan lift and use of wheelchair at baseline --PT and OT --Anticipate return to [facility] when medically stable --11/17: Worsening mental/medical status today (see above). Bipolar Disorder Anxiety --takes Lexapro 5mg daily at facility - was being weaned there. We did not restart in hospital. Continue off medication at this time, especially in setting of prolonged qtc --Continue Duloxetine 30mg daily --Continue Buspar 2.5mg BID (being weaned at facility) Chronic pain --Takes Oxycodone-Acetaminophen 5/325 mg 1 tab every 8 hours as needed at facility. Takes 1 tab every few days. Currently ordered. --Home dose of Gabapentin 600mg BID. --Gabapentin was increased from 300 mg BID to 400 mg BID on 11/16. --11/17: --Lower gabapentin to 200 mg BID due to EDWIGE. Will start this dose tomorrow. No gabapentin tonight. Hold if lethargic Follow-up: will follow with you Subjective Chief Complaint: fall Geriatrics consulted for confusion restless with underlying dementia with prolonged qtc HPI- The patient is new to me but seen by the Geriatric Inpatient Consult team. 78 y.o. 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 Diagnosed with acute CHF exacerbation and EDWIGE. Cardiology following. ECHO 11/14 with EF 35%. Findings consistent with Takotsubo vs CAD. Reviewed yesterday's primary team progress note Discussed with hospitalist - Dr Sam Interval History: Ms Villarreal is lethargic and her speech is very difficult to understand. When asked about pain, she replied yes. Seemed to indicate that she had a headache. She wasn't able to tell me where we are. When I pointed out her lunch tray (it looked like a few bites were eaten), she said the food was good. I spoke with her nurse. She is more drowsy today than yesterday I called her SNF and spoke with nursing. They said that at baseline she does not have speech/aphasia difficulties. She is typically aware of where she is. Is able to wheel herself in her wheelchair to various offices in the facility to visit with staff Review of Systems Neurological: Positive for headaches. Psychiatric/Behavioral: Positive for confusion. ROS very limited due to delirium Objective BP (!) 178/118 (BP Location: Left arm, Patient Position: Lying) Pulse 115 Temp 36.8 C (98.2 F) (Temporal) Resp 16 Ht 5' 5 (1.651 m) Wt 210 lb (95.3 kg) SpO2 100% BMI 34.95 kg/m Intake/Output Summary (Last 24 hours) at 11/17/2024 1053 Last data filed at 11/16/2024 1245 Gross per 24 hour Intake 120 ml Output -- Net 120 ml Wt Readings from Last 3 Encounters: 11/14/24 210 lb (95.3 kg) 12/17/23 205 lb (93 kg) Current Medications[1] Physical Exam Constitutional: General: She is not in acute distress. Appearance: She is ill-appearing. Comments: +drowsy. I initially woke her up from sleep and she was able to answer a couple of questions. Then fell back to sleep HENT: Head: Normocephalic and atraumatic. Cardiovascular: Rate and Rhythm: Regular rhythm. Tachycardia present. Heart sounds: No murmur heard. No friction rub. No gallop. Pulmonary: Effort: Pulmonary effort is normal. Breath sounds: Normal breath sounds. No decreased breath sounds, wheezing, rhonchi or rales. Comments: Wearing nasal cannula Abdominal: General: There is no distension. Palpations: Abdomen is soft. Tenderness: There is no abdominal tenderness. There is no guarding or rebound. Musculoskeletal: Right lower leg: No edema. Left lower leg: No edema. Neurological: Mental Status: She is disoriented. Psychiatric: Attention and Perception: She is inattentive. Cognition and Memory: Cognition is impaired. Memory is impaired. Labs and Imaging: Recent Results (from the past 24 hours) POCT glucose meter Collection Time: 11/16/24 11:42 AM Result Value Ref Range Glucose 202 (H) 70 - 100 mg/dL POCT glucose meter Collection Time: 11/16/24 4:27 PM Result Value Ref Range Glucose 147 (H) 70 - 100 mg/dL POCT glucose meter Collection Time: 11/16/24 7:59 PM Result Value Ref Range Glucose 175 (H) 70 - 100 mg/dL POCT glucose meter Collection Time: 11/16/24 11:48 PM Result Value Ref Range Glucose 128 (H) 70 - 100 mg/dL POCT glucose meter Collection Time: 11/17/24 7:26 AM Result Value Ref Range Glucose 178 (H) 70 - 100 mg/dL Lab Results Component Value Date TSH 3.36 11/15/2024 Lab Results Component Value Date [id number] 310 11/15/2024 No results found for: VITD25 [1] Current Facility-Administered Medications: acetaminophen (Tylenol) tablet 650 mg, 650 mg, Oral, q6h PRN, 650 mg at 11/15/24 2136 OR acetaminophen (Tylenol) suppository 650 mg, 650 mg, Rectal, q6h PRN, Dominguez Franz MD aluminum & magnesium hydroxide-simethicone (Mylanta) 200-200-20 MG/5ML oral suspension 10 mL, 10 mL, Oral, q4h PRN, Dominguez Franz MD gkwnewz-wmfcfkgxrjucp-nurthjej (Excedrin Migraine) 250-250-65 MG per tablet 2 tablet, 2 tablet, Oral, q8h PRN, Dominguez Franz MD, 2 tablet at 11/13/24 1838 busPIRone (Buspar) tablet 2.5 mg, 2.5 mg, Oral, BID, Dominguez Franz MD, 2.5 mg at 11/17/24 08 dextrose 5 % infusion, 100 mL/hr, IntraVENous, PRN, Dominguez Franz MD dextrose 50 % solution 12.5 g, 12.5 g, IntraVENous, PRN, Dominguez Franz MD DULoxetine (Cymbalta) DR capsule 30 mg, 30 mg, Oral, Daily, Dominguez Franz MD, 30 mg at 11/17/24852 enoxaparin (Lovenox) syringe 40 mg, 40 mg, SubCUTAneous, Daily, Dominguez Franz MD, 40 mg at 11/16/242123 famotidine (Pepcid) tablet 20 mg, 20 mg, Oral, Daily, Dominguez Franz MD, 20 mg at 11/17/24852 gabapentin (Neurontin) capsule 400 mg, 400 mg, Oral, BID, Nara Tatum APRN - [employer], 400 mg at 11/17/24852 glucagon (human recombinant) injection 1 mg, 1 mg, IntraMUSCular, PRN, Dominguez Franz MD glucose oral gel 15 g, 15 g, Oral, PRN, Dominguez Franz MD hydrALAZINE (Apresoline) tablet 100 mg, 100 mg, Oral, TID, Hammad Hinton MD, 100 mg at 11/17/24 0852 hydrALAZINE (Apresoline) tablet 25 mg, 25 mg, Oral, q8h PRN, Dominguez Franz MD, 25 mg at 11/16/242122 Insulin Lispro (Humalog) injection 0-12 Units, 0-12 Units, SubCUTAneous, TID WC, 2 Units at 11/17/24 08 AND Insulin Lispro (Humalog) injection 0-12 Units, 0-12 Units, SubCUTAneous, Nightly, Dominguez Franz MD, 2 Units at 11/16/24 2125 ipratropium-albuterol (Duo-Neb) 0.5-2.5 mg/3 mL nebulizer solution 3 mL, 3 mL, Nebulization, 4x daily PRN, Dominguez Franz MD, 3 mL at 11/17/24 0339 isosorbide mononitrate ER (Imdur) 24 hr tablet 30 mg, 30 mg, Oral, Daily, Hammad Hinton MD, 30 mg at 11/17/24 0857 labetalol (Normodyne,Trandate) injection 10 mg, 10 mg, IntraVENous, q6h PRN, Gordo Nogueira MD, 10 mg at 11/17/24 0000 levothyroxine (Synthroid, Levoxyl) tablet 50 mcg, 50 mcg, Oral, qAM AC, Dominguez Franz MD, 50 mcg at 11/17/24 0624 lidocaine (Xylocaine) 2 % mouth solution 15 mL, 15 mL, Mouth/Throat, q3h PRN, Dominguez Franz MD lisinopril tablet 5 mg, 5 mg, Oral, Daily, Hammad Hinton MD, 5 mg at 11/17/24 0853 magnesium hydroxide (Milk of Magnesia) 400 MG/5ML suspension 30 mL, 30 mL, Oral, Daily PRN, Dominguez Franz MD melatonin tablet 3 mg, 3 mg, Oral, Nightly, Dominguez Franz MD, 3 mg at 11/16/24 2124 metoprolol succinate XL (Toprol-XL) 24 hr tablet 100 mg, 100 mg, Oral, Daily, Ayana Pascual PA-C, 100 mg at 11/17/24 0853 naloxone (Narcan) injection 0.4 mg, 0.4 mg, IntraVENous, q5 min PRN, Dominguez Franz MD ondansetron ODT (Zofran-ODT) disintegrating tablet 4 mg, 4 mg, Oral, q8h PRN OR ondansetron (Zofran) injection 4 mg, 4 mg, IntraVENous, q6h PRN, Dominguez Franz MD oxyCODONE-acetaminophen (Percocet) 5-325 MG per tablet 1 tablet, 1 tablet, Oral, q8h PRN, Dominguez Franz MD, 1 tablet at 11/15/24 5905 phenol (Chloraseptic) 1.4 % mouth/throat spray 1 spray, 1 spray, Mouth/Throat, q2h PRN, Dominguez Franz MD polyethylene glycol (PEG) 3350 (Miralax) packet 17 g, 17 g, Oral, Daily PRN, Dominguez Franz MD SUMAtriptan (Imitrex) tablet 50 mg, 50 mg, Oral, q6h PRN, Dominguez Franz MD Images from the original note were not included. [facility] [place], Pulmonary Medicine [address] [place] [id number] Patient - Carline Villarreal, Age - 78 y.o. - 1945 Room Number - B4-466/[id number] A Consulting - Ni Sam MD Primary Care Physician - Evi Guevara Acct: No I do not have problem with the patient you know he was kind of he wanted to go home today I just kept him so Maybe can do little earlier okay [phone] [phone] Date of Admission - 11/13/2024 10:39 AM Hospital Day - 4 Chief Complaint Carline Villarreal is a 78 y.o. female who pulmonary is following for respiratory failure Interval History Patient resting the bed, mildly confused No respiratory distress oxygen saturation 99% 3 L Apparently had an episode of aspiration yesterday, increased therapy having consulted Chest x-ray reviewed interpreted by me Marked improvement in congestive heart failure pleural effusion May have mild underlying congestion No focal infiltrate HPI Carline Villarreal is a 78 y.o. female admitted for Shortness of breath noted to be in acute hypoxic hypercapnic respiratory failure decompensated congestive heart failure Patient does have a history of dementia as per chart group home resident, diabetes mellitus hypertension stroke Admitted with above complaint Initial VBG did show pH 7.229 pCO2 of 55 pO2 of 32 Patient received IV Lasix diuresed well placed on NIV Follow-up VBG showed pH 7.74 pCO2 of 30 and PO2 of 47 EKG showed T inversion ST ST depression elevated troponin This morning apparently has episode of tachyarrhythmia as per cardiology atrial fibrillation Her saturation was 97 percentile feeling much better this morning however she is not a good historian Currently she was on room air saturation was 97 percentile Never smoked Not on PAP therapy at home Apparently came from [facility] Chest x-ray reviewed interpreted by me Vascular congestion with a small bilateral pleural effusion All other systems reviewed Objective Vitals: BP (!) 178/118 (BP Location: Left arm, Patient Position: Lying) Pulse 115 Temp 36.8 C (98.2 F) (Temporal) Resp 16 Ht 5' 5 (1.651 m) Wt 210 lb (95.3 kg) SpO2 100% BMI 34.95 kg/m Pulse Ox: SpO2 Av.5 % Min: 96 % Max: 100 % Supplemental O2: O2 Flow Rate (L/min): 2 L/min I/O 24HR INTAKE/OUTPUT: Intake/Output Summary (Last 24 hours) at 11/17/2024 0922 Last data filed at 11/16/2024 1245 Gross per 24 hour Intake 270 ml Output -- Net 270 ml Exam General appearance: Resting in the bed no distress HEENT: Normocephalic, atraumatic. Pupils equil and round, External ear normal, conjunctivae normal, negative for scleral icterus. No congestion. Neck: ROM normal, supple, trachea midline. No lymphadenopathy Cardiovascular: Irregular rhythm. Heart sounds normal. Negative for murmur, friction rub or gallop. Tachycardic Pulmonary: Effort normal, no respiratory distress. Moderate air entry Rales posteriorly No wheezing Abdomen: Soft, non distended, non tender, bowel sounds normal. No palpable masses. No Hepatomegaly Musculoskeletal: ROM normal, Negative for swelling, tenderness or deformity. Skin: Warm, dry. Skin color, texture, turgor normal. Negative for rashes or lesions. Extremities: No clubbing, cyanosis, 1+ bipedal edema Neurological: No focal deficits. Alert and oriented x 1. Cranial nerves II-XII are intact Lymphatics: No cervical or axillary lymphadenopathy Psychiatric: Mood, behavior, thought content normal. Cooperative with exam. Medications Current Medications Scheduled Meds[1] PRN Mediations PRN Meds[2] IV Drips/Infusions Continuous Meds[3] Labs CBC Results from last 7 days Lab Units 11/16/24 0456 WBC AUTO 10*3/uL 12.7* HEMOGLOBIN g/dL 14.1 HEMATOCRIT % 41.5 PLATELETS 10*3/uL 317 BMP: Results from last 7 days Lab Units 11/16/24 0456 11/15/24 0550 11/14/24 0044 SODIUM mmol/L 142 144 139 POTASSIUM mmol/L 3.4* 3.3* 3.6 CHLORIDE mmol/L 105 107 105 CO2 mmol/L 23 22* 21* BUN mg/dL 47* 40* 32* CREATININE mg/dL 1.65* 1.56* 1.37* GLUCOSE mg/dL 165* 169* 248* CALCIUM mg/dL 9.1 9.2 9.6 ABG: Results from last 7 days Lab Units 11/13/24 1532 11/13/24 1056 SOURCE OF OXYGEN Nasal Cannula (LPM) Nasal Cannula (LPM) LIVER PROFILE Results from last 7 days Lab Units 11/13/24 1056 ALK PHOS U/L 101 BILIRUBIN TOTAL mg/dL 0.6 PROTEIN TOTAL g/dL 6.8 ALT U/L 11 AST U/L 20 INR PTT No results found for: PTT Cultures Influence pcr neg Radiology Exam Date/Time: 11/13/2024 11:11 Procedure: XR CHEST 1 VIEW Ordering Provider: SALEEM AMY Reason For Exam: COUGH CHEST - PORTABLE: CLINICAL INDICATION: COUGH TECHNIQUE: Portable AP COMPARISON: None. IMPRESSION: FINDINGS/IMPRESSION: Limitations: Mild patient rotation Lines, tubes, and devices: None. Cardiomediastinal silhouette: Heart size is within normal limits. Atherosclerotic calcifications in the thoracic aorta. Lungs/Pleura: Pulmonary vascular congestion right side greater than left. Additional hazy and streaky opacities right greater than left lung base suspicious for pneumonia. There may be a trace layering right pleural effusion. No pneumothorax. Osseous structures: Degenerative spondylosis in the visualized spine. Postsurgical changes shoulders. Soft tissues: No soft tissue abnormality is detected. Active Hospital Problem List Problem List[4] Assessment and Plan -Acute hypoxic hypercapnic respiratory failure improved - Likely secondary to acute decompensated congestive heart failure which clinically has improved after brisk diuresis - No signs of CO2 narcosis, repeat VBG did show improved hypercarbia as well as pH - Chest x-ray more compatible with congestive heart failure with pleural effusion - Clinical suspicion for pneumonia is low in view of normal WBC count afebrile normal procalcitonin - Cardiac arrhythmia/abnormal EKG T inversion ST depression/elevated troponin, previous echocardiogram did show moderate aortic regurgitation Patient clinically appears to have improved since admission with brisk diuresis Likely has underlying ischemic heart disease leading to congestive heart failure as well as cardiac arrhythmia Cardiology evaluation and recommendation noted Clinical suspicion for pneumonia is low, would recommend de-escalation of antibiotics pending culture result Will repeat the chest x-ray in the morning to follow-up CHF as well as pleural effusion Patient saturating well on room air currently As noted above chest x-ray did show marked improvement saturating well on room air not using PAP therapy Echocardiogram did show ejection fraction 35% and left ventricular dysfunction Cardiology adjusting medication Will discontinue the PAP therapy at the patient not using it Patient is off antibiotics Oxygen supplement titrate to keep O2 sat 92 percentile Apparently has aspiration episode while eating yesterday speech evaluation has been ordered pending Currently appears to be stable from pulmonary standpoint Advance Directive: DNR-CCA Case discussed with nurse and patient/ Questions and concerns addressed. Portions of the information within this encounter were entered using an electronic dictation system. Best attempts were made to edit/proofread the information prior to note completion. Despite the review of information, some errors may remain. If there are questions related to the information contained within the note please contact the signing provider directly. [1] busPIRone, 2.5 mg, Oral, BID DULoxetine, 30 mg, Oral, Daily enoxaparin, 40 mg, SubCUTAneous, Daily famotidine, 20 mg, Oral, Daily gabapentin, 400 mg, Oral, BID hydrALAZINE, 100 mg, Oral, TID insulin lispro, 0-12 Units, SubCUTAneous, TID WC And insulin lispro, 0-12 Units, SubCUTAneous, Nightly isosorbide mononitrate ER, 30 mg, Oral, Daily levothyroxine, 50 mcg, Oral, qAM AC lisinopril, 5 mg, Oral, Daily melatonin, 3 mg, Oral, Nightly metoprolol succinate XL, 100 mg, Oral, Daily [2] PRN medications: acetaminophen OR acetaminophen, aluminum & magnesium hydroxide-simethicone, seuzutt-wfrhjrocakcaa-mvihgswx, dextrose, dextrose, glucagon (rDNA), glucose, hydrALAZINE, ipratropium-albuterol, labetalol, lidocaine, magnesium hydroxide, naloxone, ondansetron ODT OR ondansetron, oxyCODONE-acetaminophen, phenol, polyethylene glycol (PEG) 3350, SUMAtriptan [3] [4] Patient Active Problem List Diagnosis Left-sided weakness Hypertensive chronic kidney disease with stage 1 through stage 4 chronic kidney disease, or unspecified chronic kidney disease Cerebrovascular accident (HCC) Bipolar disorder (HCC) Anxiety Vitamin D deficiency Recurrent major depression (HCC) Unilateral paralysis as late effect of cerebrovascular accident (CVA) (HCC) Migraine headache Hypothyroid HTN (hypertension) Hyperlipidemia Gout Gastroesophageal reflux disease Dysphagia Dementia (HCC) 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 [phone]: Please page [facility] Hospitalist for any issues. Subjective: Admit Date: 11/13/2024 PCP: Evi Guevara Room#: B4-466/B4-466 A Carline Villarreal is a 78 y.o. female who presents with Acute exacerbation of chronic heart failure (HCC) Interval History: 78-year-old female patient is admitted with acute on chronic CHF. Cardiology is consulted, echo revealed 35% EF Echo is consistent with Takotsubo, and it was decided that she would not be a candidate for invasive treatment, given her age and dementia. Also not a candidate for oral anticoagulation given her dementia her speech is unintelligible and she cannot give any review of systems Discussed with RN and earlier today she had an episode of emesis after she ate, she does not look short of breath, will ask speech to evaluate for dysphagia Adult diet Regular 24HR INTAKE/OUTPUT: Intake/Output Summary (Last 24 hours) at 11/16/2024 1514 Last data filed at 11/15/2024 1814 Gross per 24 hour Intake 150 ml Output -- Net 150 ml LABS: CBC: Recent Labs 11/14/24 0044 11/15/24 0550 11/16/24 0456 WBC 10.5 15.0* 12.7* RBC 4.39 4.42 4.42 HGB 13.9 13.8 14.1 HCT 40.5 40.9 41.5 MCV 92.3 92.5 93.9 RDW 13.5 14.1 14.2 PLT 282 308 317 BMP: Recent Labs 11/14/24 0044 11/15/24 0550 11/16/24 0456 NA 139 144 142 K 3.6 3.3* 3.4* CL 105 107 105 CO2 21* 22* 23 BUN 32* 40* 47* CREATININE 1.37* 1.56* 1.65* GLUCOSE 248* 169* 165* CALCIUM 9.6 9.2 9.1 ANIONGAP 13 15* 14* LIVER PROFILE: No results for input(s): AST, ALT, BILITOT, ALKPHOS, PROT in the last 72 hours. No lab exists for component: LABALBU PT/INR: No results for input(s): PROTIME, INR in the last 72 hours. CARDIAC ENZYMES: No results for input(s): TROPONINI in the last 72 hours. Procalcitonin: Lab Results Component Value Date PROCAL 0.08 (H) 11/15/2024 @RISRSLTSPECIALTY@ Objective: Vitals: BP 147/99 Pulse 97 Temp (!) 35.8 C (96.5 F) (Temporal) Resp 20 Ht 5' 5 (1.651 m) Wt 210 lb (95.3 kg) SpO2 97% BMI 34.95 kg/m Pulse Ox: SpO2 Av % Min: 91 % Max: 97 % Supplemental O2: O2 Flow Rate (L/min): 2 L/min 11/16/2024 General appearance: Awake alert oriented x 1, appears to be in no distress Cardiovascular: S1, S2, regular rhythm, no murmurs gallops or rubs Respiratory: Diminished breath sounds bilaterally, no wheezing or rhonchi Abdomen: Benign, positive bowel sounds, soft, nontender Musculoskeletal: No edema, no calf tenderness. Skin: No rash or lesions Neurological: Awake alert oriented x 1, no acute motor or sensory deficits Medications: Continuous Meds[1] Scheduled Meds[2] PRN Meds[3] Assessment Acute on chronic heart failure with reduced ejection fraction-I IV Lasix, cardiology following Takotsubo cardiomyopathy versus CAD, added Lopressor Aldactone and lisinopril , monitoring renal function Bilateral HAP rule out -abx discontinued yesterday, monitor off antibiotics Hypokalemia - replace potassium Type 2 DM with hyperglycemia Leukocytosis-will monitor closely, no other signs of infection at this time, trending down and today 12,000 Uncontrolled hypertension - added hydrochlorothiazide from tomorrow and added spironolactone , liisnopril added, much better today Delirium symptoms with underlying dementia-she also lacks capacity for medical decision making OHS/GABRIELE at bedtime bipap Bilateral pressure ulcers on buttocks- POA Episodes of nonsustained atrial fibrillation -, rate control with metoprolol and may increase to 100 mgs bid if needed Chronic problems Bipolar disorder CKD stage III with creatinine at baseline of 1.3-1.5 , today creatinine at 1.6, EDWIGE RULED OUT Anxiety with depressive symptoms-continue BuSpar Hx CVA with left sided sequelae Hypothyroid-continue levothyroxine Obesity class 2 Hx gout Hx migraines Insomnia Plan Reviewed CBC BMP and ordered CBC BMP in a.m. Replace potassium Discussed with palliative service and the family is not ready for hospice, already DNR CCA Consult speech therapy for dysphagia evaluation Possible discharge planning tomorrow to [facility] Discussed with geriatric service and increase gabapentin from 300 to 400 mg twice daily -am labs, replace lytes prn -increase activity Diet Adult diet Regular DVT Prophylaxis [x] Lovenox, [] Heparin, [] SCDs, [] Ambulation [] Already on Anticoagulation GI Prophylaxis [] PPI, [] H2 Liana, [] Carafate, [] Diet/Tube Feeds Code Status DNR-CCA Disposition Patient requires continued admission due to congestive heart failure MDM [] Low, [] Moderate,[x] High Patient's risk as above Total time spent (which include face to face and non face to face encounters) : 35 minutes Toxic drug monitoring/narrow therapeutic index drug monitoring : # Drug name : Lasix # Route administered : Intravenous # Method of monitoring : Daily BMP Extended Emergency Contact Information Primary Emergency Contact: Rosas Kwon Mobile Relation: Son Secondary Emergency Contact: Nicolette Ren Mobile Relation: Sister Advance Directive: DNR-CCA Discharge planning: TBD Ni Sam MD Division of Hospitalist Medicine [facility] [place] [1] [2] busPIRone, 2.5 mg, Oral, BID DULoxetine, 30 mg, Oral, Daily enoxaparin, 40 mg, SubCUTAneous, Daily famotidine, 20 mg, Oral, Daily gabapentin, 400 mg, Oral, BID hydroCHLOROthiazide, 25 mg, Oral, Daily insulin lispro, 0-12 Units, SubCUTAneous, TID WC And insulin lispro, 0-12 Units, SubCUTAneous, Nightly levothyroxine, 50 mcg, Oral, qAM AC lisinopril, 20 mg, Oral, Daily melatonin, 3 mg, Oral, Nightly metoprolol succinate XL, 100 mg, Oral, Daily spironolactone, 25 mg, Oral, q24h [3] PRN medications: acetaminophen OR acetaminophen, aluminum & magnesium hydroxide-simethicone, cdpepvn-sxiidjsfgpwps-mqzdlaeo, dextrose, dextrose, glucagon (rDNA), glucose, hydrALAZINE, ipratropium-albuterol, labetalol, lidocaine, magnesium hydroxide, naloxone, ondansetron ODT OR ondansetron, oxyCODONE-acetaminophen, phenol, polyethylene glycol (PEG) 3350, SUMAtriptan Smoking cessation counseling held due to patient status. Images from the original note were not included. PHYSICAL THERAPY [facility] Initial Evaluation Name/MRN: Carline Villarreal ([id number]) Evaluation Date: 11/16/2024 Date of : 1945 Admission Date: 11/13/2024 10:39 AM Age: 78 y.o. Room/Bed: B4466/B4466 A Discharge Recommendation: Assisted Facility Equipment Needed: No Assessment IMPRESSION: Pt admitted to ED on 11/13/24 with AE of CHF. Prior to admission, pt lived with mother and performed mobility with rollator. Upon eval, pt required Max Ax1 for bed mobility, Max Ax1 for transfers, Unable to perform any gait/ambulation d/t poor standing balance. Pt would benefit from skilled PT services in order to increase safety and independence in functional mobility and daily tasks. Recommend SNF upon DC. Admitting Diagnosis: AE of CHF Prognosis: good Performance Deficits /Impairments: Increased Pain, Decreased Functional Mobility, Decreased ADL status, Decreased Strength, Decreased Safety Awareness, Decreased Endurance, and Decreased Balance Decision Making: Medium Complexity Subjective Pt pleasant and agreeable to PT evaluation. RN cleared pt for session. Pain: Mohamud-Duff Pain Ratin = Hurts whole lot Pain Location: low back pain Past Medical History: Medical History[1] Past Surgical History: Surgical History[2] Admission Diagnosis: Patient Active Problem List Diagnosis Date Noted Acute exacerbation of chronic heart failure ([facility]) 11/15/2024 Dysphagia 11/13/2024 Controlled diabetes mellitus with diabetic nephropathy ([facility]) 11/13/2024 Constipation 11/13/2024 Chronic pain 11/13/2024 Osteoarthritis 11/13/2024 Insomnia 11/13/2024 Left-sided weakness 12/16/2023 Hypertensive chronic kidney disease with stage 1 through stage 4 chronic kidney disease, or unspecified chronic kidney disease 02/19/2023 Hyperlipidemia, unspecified 09/28/2022 Vitamin D deficiency 09/21/2022 Bipolar disorder ([facility]) 01/06/2019 Recurrent major depression ([facility]) 01/06/2019 Unilateral paralysis as late effect of cerebrovascular accident (CVA) ([facility]) 01/06/2019 Migraine headache 01/06/2019 Hypothyroid 01/06/2019 Gout 01/06/2019 Gastroesophageal reflux disease 01/06/2019 Dementia ([facility]) 01/06/2019 Obesity 01/06/2019 Psoriasis 01/06/2019 Cerebrovascular accident ([facility]) 07/19/2017 Anxiety 07/19/2017 HTN (hypertension) 07/19/2017 Hyperlipidemia 07/19/2017 Medical Precautions: No active isolations Proper PPE donned/doffed in accordance with facility standards. Fall Risk: Oleary Fall Risk Score: 60 (High Risk) Precautions/Restrictions: N/A Family/Caregiver Present: none Overall Cognitive Status: Exceptions - Safety judgement: decreased awareness of need for assistance and decreased awareness of need for safety - Problem solving: assistance required to generate solutions, assistance required to implement solutions, assistance required to identify errors made, and assistance required to correct errors made - Insights: decreased awareness of deficits - Sequencing: requires cues for some Overall Orientation Status: Oriented to Person Vision: Not Assessed Hearing: normal Social/Functional History All Social/Functional obtained from OT. Pt questionable historian, all information provided by pt to the best of their knowledge Patient admitted from home. Lives With: Parent Type of Home: single family home Home Layout: Two Level Home and Able to Live on Main Level Home Access: Level Entry Bathroom Shower/Tub: Tub/Shower Combo, Shower Chair with Back, and Grab Bars Toilet: Handicap Height and Grab Bars Home Equipment: rollator and cane Homemaking Responsibilities: Independent Receives Help From: None Active Special Delivery Carrier: Yes Prior Level of Function Prior Level of ADL Function: Independent Prior Level of Mobility: Independent; Device: Rollator Prior Level of Transfers: Independent Objective Lower Extremity Assessment AROM: WFL Strength: Gross strength 3+/5 bilaterally Sensation: WFL Bed Mobility: Supine to sit: Max Assist Sit to supine: Max Assist Scooting: Max Assist Max Ax1 required for all bed mobility with max cues for proper sequencing, body mechanics, activity pacing and positioning for self assistance. Poor return noted. Max Ax1 for sitting balance at EOB d/t persistent R lateral lean. Increased time and effort needed to complete. Transfers Sit to stand: Max Assist Stand to sit: Max Assist Pt completed STS from EOB x2 with Max Ax1 and max cues for proper sequencing, activity pacing, body mechanics and overall device management. Poor return of cues noted. Unable to sequence any steps at bedside at this time d/t poor balance. Ambulation Did not assess this session. Outcome Measures AM-PAC How much HELP from another person do you currently need Turning from your back to your side while in a flat bed without using bedrails?: A Lot Moving from lying on your back to sitting on the side of a flat bed without using bedrails?: A Lot Moving to and from a bed to a chair (including a wheelchair)?: Total Standing up from a chair using your arms (wheelchair or bedside chair)?: Total Walking in a hospital room?: Total Stair climbing assessed?: No AM-PAC Inpatient Mobility Raw Score (No Stairs) : 7 JH-HLM JH-HLM Score: Sat at edge of bed Plan Pt would benefit from skilled acute PT services to address Strengthening, Gait Training, Balance Training, Self-Care/ADL Training, Functional Mobility Training, Endurance Training, and Safety Education and Training. Frequency: 7 visits during current hospital admission or until additional recommendations are made Barriers: Pain, Impaired balance, Lower extremity weakness, Decreased endurance, and Limited safety awareness Safety/Education Safety Safety Devices in place: All fall risk precautions in place, call light within reach, left in bed, bed alarm in place, gait belt, patient at risk for falls, and nurse notified Restraints: N/A Education Education Given To: patient Education Provided: PT Role, PT Goals, Gait Training, Plan of Care, Transfer Training, Energy Conservation, IADL Safety, Equipment, Fall Prevention Education, Discharge Recommendations, and Benefits of Increasing Activity Education Method: Verbal and Demonstration Barriers to Learning: None Education Outcome: Verbalized Understanding, Demonstrated Understanding, and Continued Education Needed Goals Patient Stated Goal: None stated Encounter Problems Encounter Problems (Active) Balance Patient will maintain dynamic standing balance for 3 minutes with min assist in order to demonstrate decreased risk of falling. Start: 11/16/24 Expected End: 12/02/24 Patient will maintain static standing balance for 5 minutes with CGA in order to demonstrate decreased risk of falling. Start: 11/16/24 Expected End: 12/02/24 Exercise Patient will complete lower extremity exercises for 1-2 sets / 10-15 reps in order to improve strength and activity tolerance for mobility. Start: 11/16/24 Expected End: 12/02/24 Mobility Patient will ambulate 10 feet with min assist and least restrictive device in order to improve safety and independence with mobility. Start: 11/16/24 Expected End: 12/02/24 Transfers Patient will perform bed mobility with min assist in order to improve independence and prepare for out of bed mobility. Start: 11/16/24 Expected End: 12/02/24 Patient will complete functional transfer with least restrictive device with min assist in order to prepare for ambulation. Start: 11/16/24 Expected End: 12/02/24 Therapy Time Individual Co-Treatment Co-Evaluation Time In 0840 Time Out 0851 Minutes 11 Cezar Chirinos PT Patient's Physical Therapy Plan of Care supervision is transferred to a [facility] Physical Therapist. Goals and/or treatment plan was established in collaboration with patient/family/other representatives. [1] Past Medical History: Diagnosis Date Diabetes mellitus (HCC) Hypertension Stroke (HCC) [2] No past surgical history on file. [facility] Geriatric Medicine Inpatient Consult Service Admission Date: 11/13/2024 Assessment Principal Problem: Acute exacerbation of chronic heart failure (HCC) Plan Dementia --Lives in [facility] facility --History of stroke with worsening cognitive decline. --MRI 12/17/23: 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 Chronic small vessel ischemic change. --TSH WNL and B12 310 --No baseline behaviors --Try to avoid anticholinergic medications --11/16: Not oriented to place today with increased restlessness. May have mild delirium. At risk for delirium --Risk factors: pain, advanced age, sensory impairments, acute illness, history of delirium, and baseline cognitive deficits --Encourage PO intake, time up in chair, family visits, and sleep hygiene --If agitated, assess for and consider treating for pain --QTc= 11/13 429 ms --> 11/14 508 ms --> 11/15 566 ms --No antipsychotic due to QTc>500; if patient is danger to self/others/treatment consider low dose benzo use (Lorazepam 0.25mg PO every 8 hours as needed for agitation). If given, closely monitor respiratory status. --Continue scheduled melatonin at --Monitor for constipation/urinary retention - last BM 11/16 --Possible medication contributions: monitor for Gabapentin withdrawal (see below) --11/16: Restless, no agitation. Increase Gabapentin to 400mg BID. Continue to assess renal function and increase to home dose (600mg BID) as appropriate. Debility --Contributing factors include stroke, Dementia, Chronic pain, heart failure --nathan lift and use of wheelchair at baseline --PT and OT --Anticipate return to [facility] --11/16: Stable. Therapy recommends SNF. Bipolar Disorder Anxiety --takes Lexapro 5mg daily at facility - was being weaned there. Will hold off restarting. --Continue Duloxetine 30mg daily --Continue Buspar 2.5mg BID (being weaned at facility) --11/16: Stable. Continue plan. Chronic pain --Takes Oxycodone-Acetaminophen 5/325 mg 1 tab every 8 hours as needed at facility. Takes 1 tab every few days. Currently ordered. --Home dose of Gabapentin 600mg BID. Currently ordered 300mg BID. --11/16: Increase Gabapentin to 400mg BID while monitoring renal function. Follow-up: will follow with you Subjective Chief Complaint: where are the dean Geriatrics consulted for confusion restless with underlying dementia with prolonged qtc HPI- The patient is known to me. 78 y.o. year-old female with PMH of DM, stroke with left sided weakness, HTN, CKD, hypothyroidism, Bipolar disorder, Gout, Migraines, Dementia presented to [facility] from nursing facility on 11/13/24 with complaints of shortness of breath, cough, and hypoxia. Pulmonology consulted - acute hypoxic and hypercapnic respiratory failure likely due to acute decompensated congestive heart failure. Also diagnosed with EDWIGE. Cardiology following. ECHO 11/14 with EF 35%. Findings consistent with Takotsubo vs CAD. Interval History: Remains on telemetry. -Patient looks and points to TV and said he sold dean, where are the dean?. Unable to states where she is. Denies pain. Reports her breathing is good. -Nursing reports patient has been restless overnight and this morning. Not agitated. She pulls sheets off herself. Not pulling at IV. Creat 1.65 (increased) Seen by PT. Max assist with transfers. Recommending short term SNF for rehab. Review of Systems Unable to perform ROS: Dementia Objective BP 147/99 Pulse 97 Temp (!) 35.8 C (96.5 F) (Temporal) Resp 20 Ht 5' 5 (1.651 m) Wt 210 lb (95.3 kg) SpO2 97% BMI 34.95 kg/m Intake/Output Summary (Last 24 hours) at 11/16/2024 1100 Last data filed at 11/15/2024 1814 Gross per 24 hour Intake 390 ml Output -- Net 390 ml Wt Readings from Last 3 Encounters: 11/14/24 210 lb (95.3 kg) 12/17/23 205 lb (93 kg) Current Medications[1] Physical Exam Vitals reviewed. Constitutional: General: She is not in acute distress. HENT: Head: Normocephalic and atraumatic. Cardiovascular: Rate and Rhythm: Normal rate and regular rhythm. Pulmonary: Effort: Pulmonary effort is normal. Breath sounds: Normal breath sounds. Musculoskeletal: Right lower leg: No edema. Left lower leg: No edema. Neurological: Mental Status: She is alert. Motor: Weakness present. Comments: Left sided weakness Oriented x 1 Psychiatric: Attention and Perception: She is inattentive. Mood and Affect: Mood normal. Behavior: Behavior is cooperative. Cognition and Memory: Cognition is impaired. Memory is impaired. Labs and Imaging: Recent Results (from the past 24 hours) POCT glucose meter Collection Time: 11/15/24 11:09 AM Result Value Ref Range Glucose 160 (H) 70 - 100 mg/dL ECG 12 lead Collection Time: 11/15/24 11:47 AM Result Value Ref Range Heart Rate 89 bpm QRSD Interval 94 ms QT Interval 464 ms QTC Interval 566 ms P [place] 47 degrees QRS [place] 44 degrees T Wave [place] 210 degrees LA Interval 172 ms POCT glucose meter Collection Time: 11/15/24 5:26 PM Result Value Ref Range Glucose 173 (H) 70 - 100 mg/dL POCT glucose meter Collection Time: 11/15/24 8:16 PM Result Value Ref Range Glucose 171 (H) 70 - 100 mg/dL CBC auto differential Collection Time: 11/16/24 4:56 AM Result Value Ref Range Auto WBC 12.7 (H) 3.6 - 10.7 10*3/uL RBC 4.42 3.80 - 5.20 10*6/uL Hemoglobin 14.1 11.7 - 16.0 g/dL Hematocrit 41.5 35.0 - 47.0 % MCV 93.9 77.0 - 99.0 fL MCH 31.9 26.0 - 34.0 pg MCHC 34.0 30.5 - 36.0 % RDW 14.2 11.5 - 15.0 % Platelets 317 140 - 440 10*3/uL MPV 10.8 9.0 - 12.7 fL nRBC 0.2 0.0 - 2.0 /100 WBCs Neutrophils Relative 71.9 38.0 - 82.0 % Lymphocytes Relative 17.8 15.0 - 45.0 % Monocytes Relative 6.0 5.0 - 13.0 % Eosinophils Relative 3.4 0.0 - 6.0 % Basophils Relative 0.5 0.0 - 2.0 % Immature Grans % 0.4 0.0 - 2.0 % Neutrophils Absolute 9.2 (H) 1.8 - 7.5 10*3/uL Lymphocytes Absolute 2.3 1.0 - 4.3 10*3/uL Monocytes Absolute 0.8 0.0 - 0.9 10*3/uL Eosinophils Absolute 0.4 0.0 - 0.5 10*3/uL Basophils Absolute 0.1 0.0 - 0.2 10*3/uL Immature Grans Absolute 0.1 (H) <0.1 10*3/uL Basic metabolic panel Collection Time: 11/16/24 4:56 AM Result Value Ref Range SODIUM 142 136 - 145 mmol/L POTASSIUM 3.4 (L) 3.5 - 5.1 mmol/L CHLORIDE 105 98 - 107 mmol/L CARBON DIOXIDE 23 23 - 31 mmol/L UREA NITROGEN 47 (H) 9 - 23 mg/dL CREATININE 1.65 (H) 0.57 - 1.11 mg/dL GLUCOSE 165 (H) 82 - 115 mg/dL CALCIUM 9.1 8.8 - 10.0 mg/dL ANION GAP 14 (H) 3 - 13 mmol/L eGFR 31.7 (L) >60.0 mL/min/1.73m*2 Magnesium Collection Time: 11/16/24 4:56 AM Result Value Ref Range MAGNESIUM 1.6 1.6 - 2.6 mg/dL POCT glucose meter Collection Time: 11/16/24 7:43 AM Result Value Ref Range Glucose 181 (H) 70 - 100 mg/dL Lab Results Component Value Date TSH 3.36 11/15/2024 Lab Results Component Value Date [id number] 310 11/15/2024 No results found for: VITD25 Reviewed: allergies, previous encounters, imaging, active problem lists, medications, and labs [1] Current Facility-Administered Medications: acetaminophen (Tylenol) tablet 650 mg, 650 mg, Oral, q6h PRN, 650 mg at 11/15/24 2136 OR acetaminophen (Tylenol) suppository 650 mg, 650 mg, Rectal, q6h PRN, Dominguez Franz MD aluminum & magnesium hydroxide-simethicone (Mylanta) 200-200-20 MG/5ML oral suspension 10 mL, 10 mL, Oral, q4h PRN, Dominguez Franz MD avyrnun-jjlskthryogii-tdntvjiy (Excedrin Migraine) 250-250-65 MG per tablet 2 tablet, 2 tablet, Oral, q8h PRN, Dominguez Franz MD, 2 tablet at 11/13/24 1838 busPIRone (Buspar) tablet 2.5 mg, 2.5 mg, Oral, BID, Dominguez Franz MD, 2.5 mg at 11/16/24 0829 dextrose 5 % infusion, 100 mL/hr, IntraVENous, PRN, Dominguez Franz MD dextrose 50 % solution 12.5 g, 12.5 g, IntraVENous, PRN, Dominguez Franz MD DULoxetine (Cymbalta) DR capsule 30 mg, 30 mg, Oral, Daily, Dominguez Franz MD, 30 mg at 11/16/24 08 enoxaparin (Lovenox) syringe 40 mg, 40 mg, SubCUTAneous, Daily, Dominguez Franz MD, 40 mg at 11/15/242120 famotidine (Pepcid) tablet 20 mg, 20 mg, Oral, Daily, Dominguez Franz MD, 20 mg at 11/16/24 08 gabapentin (Neurontin) capsule 300 mg, 300 mg, Oral, BID, Dominguez Franz MD, 300 mg at 11/16/24 08 glucagon (human recombinant) injection 1 mg, 1 mg, IntraMUSCular, PRN, Dominguez Franz MD glucose oral gel 15 g, 15 g, Oral, PRN, Dominguez Franz MD hydrALAZINE (Apresoline) tablet 25 mg, 25 mg, Oral, q8h PRN, Dominguez Franz MD, 25 mg at 11/15/24 2345 hydroCHLOROthiazide (HYDRODiuril) tablet 25 mg, 25 mg, Oral, Daily, Ayana Pascual, PA-C, 25 mg at 11/16/24 08 Insulin Lispro (Humalog) injection 0-12 Units, 0-12 Units, SubCUTAneous, TID WC, 2 Units at 11/16/24 0829 AND Insulin Lispro (Humalog) injection 0-12 Units, 0-12 Units, SubCUTAneous, Nightly, Dominguez Franz MD, 2 Units at 11/15/242119 ipratropium-albuterol (Duo-Neb) 0.5-2.5 mg/3 mL nebulizer solution 3 mL, 3 mL, Nebulization, 4x daily PRN, Dominguez Franz MD labetalol (Normodyne,Trandate) injection 10 mg, 10 mg, IntraVENous, q6h PRN, Gordo Nogueira MD, 10 mg at 11/15/242130 levothyroxine (Synthroid, Levoxyl) tablet 50 mcg, 50 mcg, Oral, qAM AC, Dominguez Franz MD, 50 mcg at 11/16/24 050 lidocaine (Xylocaine) 2 % mouth solution 15 mL, 15 mL, Mouth/Throat, q3h PRN, Dominguez Franz MD lisinopril tablet 20 mg, 20 mg, Oral, Daily, Ayana Pascual PA-C, 20 mg at 11/16/24828 magnesium hydroxide (Milk of Magnesia) 400 MG/5ML suspension 30 mL, 30 mL, Oral, Daily PRN, Dominguez Franz MD melatonin tablet 3 mg, 3 mg, Oral, Nightly, Dominguez Franz MD, 3 mg at 11/15/242119 metoprolol succinate XL (Toprol-XL) 24 hr tablet 100 mg, 100 mg, Oral, Daily, Ayana Pascual PA-C, 100 mg at 11/16/24828 naloxone (Narcan) injection 0.4 mg, 0.4 mg, IntraVENous, q5 min PRN, Dominguez Franz MD ondansetron ODT (Zofran-ODT) disintegrating tablet 4 mg, 4 mg, Oral, q8h PRN OR ondansetron (Zofran) injection 4 mg, 4 mg, IntraVENous, q6h PRN, Dominguez Franz MD oxyCODONE-acetaminophen (Percocet) 5-325 MG per tablet 1 tablet, 1 tablet, Oral, q8h PRN, Dominguez Franz MD, 1 tablet at 11/15/24 2345 phenol (Chloraseptic) 1.4 % mouth/throat spray 1 spray, 1 spray, Mouth/Throat, q2h PRN, Dominguez Franz MD polyethylene glycol (PEG) 3350 (Miralax) packet 17 g, 17 g, Oral, Daily PRN, Dominguez Franz MD spironolactone (Aldactone) tablet 25 mg, 25 mg, Oral, q24h, Ayana Pascual PA-C, 25 mg at 11/16/24 0955 SUMAtriptan (Imitrex) tablet 50 mg, 50 mg, Oral, q6h PRN, Dominguez Franz MD [facility] Cardiology /Electrophysiology Progress Note HPI / Interval History: Carline Villarreal has a history of dementia, diabetes, HTN, stroke who presented to [facility] with SOB. Pro-BNP 6596, hs trop 12-124. She was seen by Dr. Hinton in consultation. TTE with new LV dysfunction with EF 35% and WMA consistent with Takotsubo cardiomyopathy vs CAD. She was diuresed with IV lasix and started on GDMT. Today, she is oriented to self only. She denies CP, SOB, PND, orthopnea, edema, palpitations, syncope. Assessment/Plan HF NYHA Class [] I [x] II [] III [] IV []Unable to assess [] N/A HFrEF 2/2 ICM vs takotsubo cardiomyopathy, Stage C, Class II, EF 35% per TTE 11/2024 - daily weight not documented - I&O + 367 ml (? Accuracy) - no current HF symptoms and appears euvolemic on exam - continue Toprol 100 mg po daily - continue lisinopril 20 mg po daily - continue spironolactone 25 mg po daily - continue hydrochlorothiazide 25 mg po daily - medical management recommended, she is not a candidate for invasive evaluation due to dementia/debility HTN, improving - some of her elevated BP may be rebound HTN due to stopping her clonidine and should improve the longer she is off clonidine - continue Toprol 100 mg po daily - continue hydrochlorothiazide 25 mg po daily - continue lisinopril 20 mg po daily - continue spironolactone 25 mg po daily PAF - 2 episodes of nonsustained Afib - not currently on tele - continue Toprol 100 mg po daily - not a candidate for OAC due to low afib burden, dementia and debility Elevated trop - hs trop 12-124 - no angina - conservative management recommended CKD - baseline creatinine 1.2-1.4 - creatinine 1.65 today with initiation of HF meds - continue to monitor Dispo: will continue to follow while inpatient to adjust GDMT Medications: busPIRone, 2.5 mg, Oral, BID DULoxetine, 30 mg, Oral, Daily enoxaparin, 40 mg, SubCUTAneous, Daily famotidine, 20 mg, Oral, Daily gabapentin, 300 mg, Oral, BID hydroCHLOROthiazide, 25 mg, Oral, Daily insulin lispro, 0-12 Units, SubCUTAneous, TID WC And insulin lispro, 0-12 Units, SubCUTAneous, Nightly levothyroxine, 50 mcg, Oral, qAM AC lisinopril, 20 mg, Oral, Daily melatonin, 3 mg, Oral, Nightly metoprolol succinate XL, 100 mg, Oral, Daily spironolactone, 25 mg, Oral, q24h Infusion Medications: Continuous Meds[1] Physical Examination: Vitals: 11/15/246 11/15/24 2336 11/16/24 0051 11/16/24 0801 BP: (!) 194/99 (!) 177/107 150/94 147/99 BP Location: Left arm Patient Position: Lying Pulse: 108 106 96 97 Resp: 16 20 Temp: 36.4 C (97.5 F) (!) 35.8 C (96.5 F) TempSrc: Temporal Temporal SpO2: 97% 97% Weight: Height: Intake/Output Summary (Last 24 hours) at 11/16/2024 1054 Last data filed at 11/15/2024 1814 Gross per 24 hour Intake 390 ml Output -- Net 390 ml Patient Vitals for the past 168 hrs: Weight Weight Method 11/14/24 1300 210 lb (95.3 kg) -- 11/14/24 0500 210 lb (95.3 kg) -- 11/13/242025 210 lb (95.3 kg) Bed scale 11/13/24 1315 225 lb 1.4 oz (102 kg) -- Physical Exam Vitals reviewed. HENT: Head: Normocephalic and atraumatic. Neck: Vascular: No JVD. Cardiovascular: Rate and Rhythm: Normal rate and regular rhythm. Heart sounds: Normal heart sounds. Pulmonary: Effort: Pulmonary effort is normal. Breath sounds: Normal breath sounds. Abdominal: General: Abdomen is flat. Bowel sounds are normal. Palpations: Abdomen is soft. Musculoskeletal: Right lower leg: No edema. Left lower leg: No edema. Skin: General: Skin is warm and dry. Neurological: Mental Status: She is alert. Mental status is at baseline. Psychiatric: Mood and Affect: Mood normal. Cognition and Memory: Cognition is impaired. Memory is impaired. Laboratory Tests: TROPONIN I, CONVENTIONAL SENSITIVITY TROPONIN I Date Value Ref Range Status 12/16/2023 <0.012 <0.034 ng/mL Final 12/16/2023 <0.012 <0.034 ng/mL Final 12/16/2023 <0.012 <0.034 ng/mL Final TROPONIN I, HIGH SENSITIVITY Troponin HS Serial Baseline Date Value Ref Range Status 11/13/2024 12 <=14 ng/L Final Comment: In individuals presenting with symptoms > 2h, a baseline troponin <= 5 ng/L suggests acute cardiac injury is unlikely and further serial testing is generally not indicated. 2h Troponin HS (Serial 2nd Troponin) Date Value Ref Range Status 11/13/2024 124 (H) <=14 ng/L Final Comment: Rising or falling troponin delta greater than 15 ng/L as compared to baseline value is significant for acute cardiac injury. No results found for: TROPDELTBASE No results found for: TROPHS3 No results found for: TROPDELTSEC Recent Labs 11/13/24 1056 11/14/24 0044 11/15/24 0550 11/16/24 0456 NA 141 139 144 142 K 3.6 3.6 3.3* 3.4* CL 105 105 107 105 CO2 20* 21* 22* 23 BUN 28* 32* 40* 47* CREATININE 1.41* 1.37* 1.56* 1.65* Recent Labs 11/13/24 1056 11/13/24 1532 11/14/24 0044 11/15/24 0550 11/16/24 0456 WBC 10.5 -- 10.5 15.0* 12.7* HGB 14.5 14.0 14.7 13.9 13.8 14.1 HCT 42.0 -- 40.5 40.9 41.5 MCV 95.0 -- 92.3 92.5 93.9 PLT 261 -- 282 308 317 Recent Labs 11/13/24 1056 BNP 6,596* No results for input(s): TRIG, HDL, LDLCALC, CHOL in the last 72 hours. No results found for: LDLCHOLESTER Lab Results Component Value Date TSH 3.36 11/15/2024 EF BP Date Value Ref Range Status 11/14/2024 35 (A) 55 - 100 % Final 11/13/24 TRANSTHORACIC ECHOCARDIOGRAM (TTE) COMPLETE (CONTRAST/BUBBLE/3D PRN) 11/14/2024 4:07 PM (Final) Interpretation Summary Technically difficult study. Left Ventricle: Left ventricle size is normal. Mildly increased wall thickness. Moderately reduced left ventricular systolic function. EF by 2D Simpsons Biplane is 35%. See diagram for wall motion findings. Grade II diastolic dysfunction with increased LAP. The following segments are akinetic: mid anterior, mid anteroseptal, mid inferoseptal, mid inferior, mid inferolateral, mid anterolateral, apical anterior, apical septal, apical inferior, apical lateral and apex.The following segments are hypokinetic: basal anteroseptal, basal inferoseptal and basal inferior.All other segments are normal. Findings may be consistent with Takotsubo cardiomyopathy vs. CAD, recommend clinical correlation. Right Ventricle: Right ventricle size is normal. Normal systolic function. TAPSE is normal. Aortic Valve: Not well visualized. Thickened cusps. At least moderate (2+) regurgitation, not well visualized on this study. Tricuspid Valve: Moderately elevated RVSP. RVSP is 53 mmHg. Left Atrium: Left atrium size is severely increased (LA volume index >48 mL/m2). Aorta: Normal sized sinuses of Valsalva. Mildly dilated ascending aorta. Ao ascending diameter is 3.6 cm. Mildly dilated aortic arch. Ao arch diameter is 3.6 cm. Compared to study dated December 17, 2023 the LVEF is worse with new wall motion abnormalities. The aortic regurgitation was present, and may be similar to slightly worse. Signed by: Nishant Kaur MD on 11/14/2024 4:07 PM Other reports reviewed: Cardiac Tests: Telemetry findings reviewed: not on tele EF BP Date Value Ref Range Status 11/14/2024 35 (A) 55 - 100 % Final AGGIE Pickens CNP Date Of Service 11/16/2024 [1] Images from the original note were not included. OCCUPATIONAL THERAPY [facility] Treatment Note Name/MRN: Carline Villarreal ([id number]) Date of : 1945 Age: 78 y.o. Room/Bed: -436/N7-208 A Visit #: 1 out of 7 visits Discharge Recommendation: Assisted Facility Equipment Needed: No Assessment Pt tolerated session fair of note, only oriented to self this date. Pt agreeable to therapy. Pt demonstrated supine>sit with max A for BLE and trunk management and scooting hips with use of pramod pad to EOB. Demo'd heavy R and posterior lean when seated at EOB with R hand on bed rail. Pt required max verbal cues and intermittent max-CGA for sitting balance, able to tolerate ~10 minutes. Required mod A x1-2 for doffing and donning down. Pt required max A x2 for sit>supine due to poor command following, and max A x1-2 for rolling R and L to complete madi care and LB dressing at bed level. Continue with POC to increase progress towards stated goals. Subjective RN OK for this pt to participate in therapy. Pt received supine in bed, agreeable to therapy. Pain: Pt denies any current pain. Medical Precautions: No active isolations Proper PPE donned/doffed in accordance with facility standards. Fall Risk: Oleary Fall Risk Score: 60 (High Risk) Precautions/Restrictions: N/A Family/Caregiver Present: none Objective ADLs LE Dressing: Dependent Toileting: Dependent UE Dressing: Mod Assist, x2 Person Assist Pt required mod A x 1-2 for UB dressing at EOB, doffing and donning gown. Demo'd R lateral and posterior lean, unable to follow commands for upright static posture. Max-CGA required for sitting balance intermittently. Pt required total A for doffing/donning brief at bed level and for pericare. Bed Mobility Supine to sit: Max Assist Sit to supine: Max Assist, x2 Person Assist Rolling to right: Max Assist, x2 Person Assist Rolling to left: Max Assist, x2 Person Assist Scooting: Max Assist Use of bed rail(s) Pt demonstrated supine >sit with max A x1 and max verbal cues. Required assist with BLE management and trunk, demonstrated heavy R lateral lean and posterior lean. Scooting towards EOB with use of pramod pad and max A as pt unable to demo scooting hips. Pt able to tolerate ~10 minutes of static sitting balance with intermittent max A-CGA, difficulty with following commands. Required max A x2 for supine to sit and for scooting towards HOB with pramod pad, unable to follow verbal and tactile commands to bend BLE to assist. Required max A x1-2 for rolling R and L to complete pericare and LB dressing at bed level. Transfers/Mobility Sitting balance: Contact Guard, Max Assist Demonstrated heavy R lateral lean and posterior lean. Max verbal and tactile cues to attempt to have to have pt self correct. Intermittent Max A-CGA required for safety. Able to complete sitting at EOB for ~10 minutes with use of R rail. Unsafe to attempt any further OOB activities this date due to poor command Folling. Device(s) used: None Plan Continue acute OT per plan of care. Safety/Education Safety Safety Devices in place: All fall risk precautions in place, call light within reach, left in bed, bed alarm in place, patient at risk for falls, and nurse notified Restraints: No Education Education Given To: patient Education Provided: ADL Adaptive Strategies and Transfer Training Education Method: Verbal and Demonstration Barriers to Learning: Cognition Education Outcome: Unable to Verbalize and Continued Education Needed AM-PAC AM-PAC Inpatient Daily Activity Raw Score: 10 ADL Inpatient CMS G-Code Modifier: CL Goals Patient Stated Goal: to get up to the bathroom. Encounter Problems Encounter Problems (Active) Dressing Upper Extremities Patient will complete upper body dressing SBA (Slowly Progressing) Start: 11/15/24 Expected End: 11/25/24 Dressings Lower Extremities Patient will dress lower body MIN A (Not Progressing) Start: 11/15/24 Expected End: 11/25/24 Mobility Patient will demonstrate functional mobility with MOD A and FWW (Not Addressed) Start: 11/15/24 Expected End: 11/25/24 Therapeutic Exercise Pt will demo good participation in BUE exercises to increase endurance and strength for participation in ADLs and functional transfers / bed mobility. (Not Addressed) Start: 11/15/24 Expected End: 11/25/24 Toileting Patient will complete toileting tasks at bedside commode with mod assist. (Not Addressed) Start: 11/15/24 Expected End: 11/25/24 Transfers Patient will complete functional transfer with rolling walker with mod assist in order to prepare for ambulation. (Not Addressed) Start: 11/15/24 Expected End: 11/25/24 Patient will perform bed mobility with supervision in order to improve independence and prepare for out of bed mobility. (Slowly Progressing) Start: 11/15/24 Expected End: 11/25/24 Therapy Time Individual Co-treatment Time In 0927 Time Out 0950 Minutes 23 Timed Code Treatment Minutes: 23 Minutes (1 ADL, 1 TA) Mya Dee OT Images from the original note were not included. [facility] [place], Pulmonary Medicine [address] [place], [place] [id number] Patient - Carline Villarreal, Age - 78 y.o. - 1945 Room Number - B4-466/[id number] Consulting - Ni Sam MD Primary Care Physician - Evi Guevara Acct: No I do not have problem with the patient you know he was kind of he wanted to go home today I just kept him so Maybe can do little earlier okay [phone] [phone] Date of Admission - 11/13/2024 10:39 AM Hospital Day - 3 Chief Complaint Carline Villarreal is a 78 y.o. female who pulmonary is following for respiratory failure Interval History Sitting comfortably in the bed currently on room air Saturation 97 percentile She is afebrile Chest x-ray from reviewed interpreted by me Marked improvement in congestive heart failure pleural effusion May have mild underlying congestion No focal infiltrate HPI Carline Villarreal is a 78 y.o. female admitted for Shortness of breath noted to be in acute hypoxic hypercapnic respiratory failure decompensated congestive heart failure Patient does have a history of dementia as per chart group home resident, diabetes mellitus hypertension stroke Admitted with above complaint Initial VBG did show pH 7.229 pCO2 of 55 pO2 of 32 Patient received IV Lasix diuresed well placed on NIV Follow-up VBG showed pH 7.74 pCO2 of 30 and PO2 of 47 EKG showed T inversion ST ST depression elevated troponin This morning apparently has episode of tachyarrhythmia as per cardiology atrial fibrillation Her saturation was 97 percentile feeling much better this morning however she is not a good historian Currently she was on room air saturation was 97 percentile Never smoked Not on PAP therapy at home Apparently came from [facility] Chest x-ray reviewed interpreted by me Vascular congestion with a small bilateral pleural effusion All other systems reviewed Objective Vitals: BP 150/94 Pulse 96 Temp 36.4 C (97.5 F) (Temporal) Resp 16 Ht 5' 5 (1.651 m) Wt 210 lb (95.3 kg) SpO2 97% BMI 34.95 kg/m Pulse Ox: SpO2 Av.6 % Min: 91 % Max: 99 % Supplemental O2: O2 Flow Rate (L/min): 2 L/min I/O 24HR INTAKE/OUTPUT: Intake/Output Summary (Last 24 hours) at 11/16/2024 0749 Last data filed at 11/15/2024 1814 Gross per 24 hour Intake 630 ml Output -- Net 630 ml Exam General appearance: Resting comfortably no respiratory distress HEENT: Normocephalic, atraumatic. Pupils equil and round, External ear normal, conjunctivae normal, negative for scleral icterus. No congestion. Neck: ROM normal, supple, trachea midline. No lymphadenopathy Cardiovascular: Irregular rhythm. Heart sounds normal. Negative for murmur, friction rub or gallop. Tachycardic Pulmonary: Effort normal, no respiratory distress. Moderate air entry Rales posteriorly No wheezing Abdomen: Soft, non distended, non tender, bowel sounds normal. No palpable masses. No Hepatomegaly Musculoskeletal: ROM normal, Negative for swelling, tenderness or deformity. Skin: Warm, dry. Skin color, texture, turgor normal. Negative for rashes or lesions. Extremities: No clubbing, cyanosis, 1+ bipedal edema Neurological: No focal deficits. Alert and oriented x 1. Cranial nerves II-XII are intact Lymphatics: No cervical or axillary lymphadenopathy Psychiatric: Mood, behavior, thought content normal. Cooperative with exam. Medications Current Medications Scheduled Meds[1] PRN Mediations PRN Meds[2] IV Drips/Infusions Continuous Meds[3] Labs CBC Results from last 7 days Lab Units 11/16/24 0456 WBC AUTO 10*3/uL 12.7* HEMOGLOBIN g/dL 14.1 HEMATOCRIT % 41.5 PLATELETS 10*3/uL 317 BMP: Results from last 7 days Lab Units 11/16/24 0456 11/15/24 0550 11/14/24 0044 SODIUM mmol/L 142 144 139 POTASSIUM mmol/L 3.4* 3.3* 3.6 CHLORIDE mmol/L 105 107 105 CO2 mmol/L 23 22* 21* BUN mg/dL 47* 40* 32* CREATININE mg/dL 1.65* 1.56* 1.37* GLUCOSE mg/dL 165* 169* 248* CALCIUM mg/dL 9.1 9.2 9.6 ABG: Results from last 7 days Lab Units 11/13/24 1532 11/13/24 1056 SOURCE OF OXYGEN Nasal Cannula (LPM) Nasal Cannula (LPM) LIVER PROFILE Results from last 7 days Lab Units 11/13/24 1056 ALK PHOS U/L 101 BILIRUBIN TOTAL mg/dL 0.6 PROTEIN TOTAL g/dL 6.8 ALT U/L 11 AST U/L 20 INR PTT No results found for: PTT Cultures Influence pcr neg Radiology Exam Date/Time: 11/13/2024 11:11 Procedure: XR CHEST 1 VIEW Ordering Provider: SALEEM AMY Reason For Exam: COUGH CHEST - PORTABLE: CLINICAL INDICATION: COUGH TECHNIQUE: Portable AP COMPARISON: None. IMPRESSION: FINDINGS/IMPRESSION: Limitations: Mild patient rotation Lines, tubes, and devices: None. Cardiomediastinal silhouette: Heart size is within normal limits. Atherosclerotic calcifications in the thoracic aorta. Lungs/Pleura: Pulmonary vascular congestion right side greater than left. Additional hazy and streaky opacities right greater than left lung base suspicious for pneumonia. There may be a trace layering right pleural effusion. No pneumothorax. Osseous structures: Degenerative spondylosis in the visualized spine. Postsurgical changes shoulders. Soft tissues: No soft tissue abnormality is detected. Active Hospital Problem List Problem List[4] Assessment and Plan -Acute hypoxic hypercapnic respiratory failure improved - Likely secondary to acute decompensated congestive heart failure which clinically has improved after brisk diuresis - No signs of CO2 narcosis, repeat VBG did show improved hypercarbia as well as pH - Chest x-ray more compatible with congestive heart failure with pleural effusion - Clinical suspicion for pneumonia is low in view of normal WBC count afebrile normal procalcitonin - Cardiac arrhythmia/abnormal EKG T inversion ST depression/elevated troponin, previous echocardiogram did show moderate aortic regurgitation Patient clinically appears to have improved since admission with brisk diuresis Likely has underlying ischemic heart disease leading to congestive heart failure as well as cardiac arrhythmia Cardiology evaluation and recommendation noted Clinical suspicion for pneumonia is low, would recommend de-escalation of antibiotics pending culture result Will repeat the chest x-ray in the morning to follow-up CHF as well as pleural effusion Patient saturating well on room air currently As noted above chest x-ray did show marked improvement saturating well on room air not using PAP therapy Echocardiogram did show ejection fraction 35% and left ventricular dysfunction Cardiology adjusting medication Will discontinue the PAP therapy at the patient not using it Patient is off antibiotics Oxygen supplement titrate to keep O2 sat 92 percentile Pulmonary status appears to be stable, no objection for discharge from pulmonary standpoint Advance Directive: DNR-CCA Case discussed with nurse and patient/ Questions and concerns addressed. Portions of the information within this encounter were entered using an electronic dictation system. Best attempts were made to edit/proofread the information prior to note completion. Despite the review of information, some errors may remain. If there are questions related to the information contained within the note please contact the signing provider directly. [1] busPIRone, 2.5 mg, Oral, BID DULoxetine, 30 mg, Oral, Daily enoxaparin, 40 mg, SubCUTAneous, Daily famotidine, 20 mg, Oral, Daily gabapentin, 300 mg, Oral, BID hydroCHLOROthiazide, 25 mg, Oral, Daily insulin lispro, 0-12 Units, SubCUTAneous, TID WC And insulin lispro, 0-12 Units, SubCUTAneous, Nightly levothyroxine, 50 mcg, Oral, qAM AC lisinopril, 20 mg, Oral, Daily melatonin, 3 mg, Oral, Nightly metoprolol succinate XL, 100 mg, Oral, Daily spironolactone, 25 mg, Oral, q24h [2] PRN medications: acetaminophen OR acetaminophen, aluminum & magnesium hydroxide-simethicone, vmkvbvw-ljzjtorfxuhyo-sghrvbnu, dextrose, dextrose, glucagon (rDNA), glucose, hydrALAZINE, ipratropium-albuterol, labetalol, lidocaine, magnesium hydroxide, naloxone, ondansetron ODT OR ondansetron, oxyCODONE-acetaminophen, phenol, polyethylene glycol (PEG) 3350, SUMAtriptan [3] [4] Patient Active Problem List Diagnosis Left-sided weakness Hypertensive chronic kidney disease with stage 1 through stage 4 chronic kidney disease, or unspecified chronic kidney disease Cerebrovascular accident (HCC) Bipolar disorder (HCC) Anxiety Vitamin D deficiency Recurrent major depression (HCC) Unilateral paralysis as late effect of cerebrovascular accident (CVA) (HCC) Migraine headache Hypothyroid HTN (hypertension) Hyperlipidemia Gout Gastroesophageal reflux disease Dysphagia Dementia (HCC) 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 [phone]: Please page [facility] Hospitalist for any issues. Subjective: Admit Date: 11/13/2024 PCP: Evi Guevara Room#: B4-466/B4-466 Annamaria Villarreal is a 78 y.o. female who presents with Acute exacerbation of chronic heart failure (HCC) Interval History: 78-year-old female patient is admitted with acute on chronic CHF. Cardiology is consulted, echo revealed 35% EF Echo is consistent with Takotsubo, and it was decided that she would not be a candidate for invasive treatment, given her age and dementia Denies chest pain, abdominal pain, nausea, vomiting, diarrhea, constipation, fevers, or chills. Adult diet Regular 24HR INTAKE/OUTPUT: Intake/Output Summary (Last 24 hours) at 11/15/2024 1522 Last data filed at 11/15/2024 1000 Gross per 24 hour Intake 480 ml Output 2 ml Net 478 ml LABS: CBC: Recent Labs 11/13/24 1056 11/13/24 1532 11/14/24 0044 11/15/24 0550 WBC 10.5 -- 10.5 15.0* RBC 4.42 -- 4.39 4.42 HGB 14.5 14.0 14.7 13.9 13.8 HCT 42.0 -- 40.5 40.9 MCV 95.0 -- 92.3 92.5 RDW 13.7 -- 13.5 14.1 PLT 261 -- 282 308 BMP: Recent Labs 11/13/24 1056 11/14/24 0044 11/15/24 0550 NA 141 139 144 K 3.6 3.6 3.3* CL 105 105 107 CO2 20* 21* 22* BUN 28* 32* 40* CREATININE 1.41* 1.37* 1.56* GLUCOSE 169* 248* 169* CALCIUM 9.1 9.6 9.2 ANIONGAP 16* 13 15* LIVER PROFILE: Recent Labs 11/13/24 1056 AST 20 ALT 11 BILITOT 0.6 ALKPHOS 101 PROT 6.8 PT/INR: No results for input(s): PROTIME, INR in the last 72 hours. CARDIAC ENZYMES: No results for input(s): TROPONINI in the last 72 hours. Procalcitonin: Lab Results Component Value Date PROCAL 0.08 (H) 11/15/2024 @RISRSLTSPECIALTY@ Objective: Vitals: BP (!) 194/102 (BP Location: Right arm, Patient Position: Lying) Comment: aware given PRN beta liana etc, NNO at this itme Pulse 96 Temp 36.3 C (97.4 F) (Temporal) Resp 18 Ht 5' 5 (1.651 m) Wt 210 lb (95.3 kg) SpO2 99% BMI 34.95 kg/m Pulse Ox: SpO2 Av.4 % Min: 92 % Max: 99 % Supplemental O2: O2 Flow Rate (L/min): 4 L/min 11/15/2024 General appearance: Awake alert oriented x 3, appears to be in no distress Cardiovascular: S1, S2, regular rhythm, no murmurs gallops or rubs Respiratory: Clear to auscultation bilaterally, no wheezing or rhonchi Abdomen: Benign, positive bowel sounds, soft, nontender Musculoskeletal: No edema, no calf tenderness. 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, added Lopressor Aldactone and lisinopril today Bilateral HAP rule out -abx discontinued yesterday Hypokalemia - replace potassium Leukocytosis-will monitor closely, no other signs of infection at this time Uncontrolled hypertension - added hydrochlorothiazide from tomorrow and added spironolactone , liisnopril added Delerium symptoms with underlying dementia-she also lacks capacity for medical decision making OHS/GABRIELE at bedtime bipap Episodes of nonsustained atrial fibrillation -, rate control with metoprolol and may increase to 100 mgs bid if needed Chronic problems Bipolar disorder CKD stage III with creatinine at baseline of 1.3-1.5 and creatinine clearance of 33.9 Anxiety with depressive symptoms-continue BuSpar Hx CVA with left sided sequelae Hypothyroid-continue levothyroxine T2DM hx Obesity class 2 Hx gout Hx migraines Insomnia Plan Reviewed CBC BMP and ordered CBC BMP in a.m. Replace potassium Discussed with palliative service and the family is not ready for hospice, already DNR CCA -am labs, replace lytes prn -increase activity Diet Adult diet Regular DVT Prophylaxis [x] Lovenox, [] Heparin, [] SCDs, [] Ambulation [] Already on Anticoagulation GI Prophylaxis [] PPI, [] H2 Liana, [] Carafate, [] Diet/Tube Feeds Code Status DNR-CCA Disposition Patient requires continued admission due to congestive heart failure MDM [] Low, [] Moderate,[x] High Patient's risk as above Total time spent (which include face to face and non face to face encounters) : 35 minutes Toxic drug monitoring/narrow therapeutic index drug monitoring : # Drug name : Lasix # Route administered : Intravenous # Method of monitoring : Daily BMP Extended Emergency Contact Information Primary Emergency Contact: Rosas Kwon Mobile Relation: Son Secondary Emergency Contact: Nicolette Ren Mobile Relation: Sister Advance Directive: DNR-CCA Discharge planning: TBD Ni Sam MD Division of Hospitalist Medicine [facility] [place] [1] [2] busPIRone, 2.5 mg, Oral, BID DULoxetine, 30 mg, Oral, Daily enoxaparin, 40 mg, SubCUTAneous, Daily famotidine, 20 mg, Oral, Daily gabapentin, 300 mg, Oral, BID hydroCHLOROthiazide, 25 mg, Oral, Daily insulin lispro, 0-12 Units, SubCUTAneous, TID WC And insulin lispro, 0-12 Units, SubCUTAneous, Nightly levothyroxine, 50 mcg, Oral, qAM AC lisinopril, 20 mg, Oral, Daily melatonin, 3 mg, Oral, Nightly metoprolol succinate XL, 100 mg, Oral, Daily spironolactone, 25 mg, Oral, q24h [3] PRN medications: acetaminophen OR acetaminophen, aluminum & magnesium hydroxide-simethicone, yoxbkvn-otkwvtvpweijn-lcjanmai, dextrose, dextrose, glucagon (rDNA), glucose, hydrALAZINE, ipratropium-albuterol, labetalol, lidocaine, magnesium hydroxide, naloxone, ondansetron ODT OR ondansetron, oxyCODONE-acetaminophen, phenol, polyethylene glycol (PEG) 3350, SUMAtriptan Images from the original note were not included. PHYSICAL THERAPY [facility] Name/MRN: Carline Villarreal ([id number]) Date: 11/15/2024 PT order received and chart reviewed. SPT and PT presented to room and introduced self/role. Pt with intermittent SOB at rest. SpO2 99% on room air. Pt reported mid sternal chest pain and dizziness. RN notified immediately. Reports BP high and plan for EKG. Will await results/medical stability prior to therapy eval. Rosalie Jacob, SPT Cosigned by Justina Doyle, PT at 11/15/2024 11:21 AM EDT Nutrition rescreen completed. Chart reviewed. Patient to be monitored and followed by the diet electronic train control technician. [facility] [place] [facility] Cardiology /Electrophysiology Progress Note HPI / Interval History: Carline Villarreal is a 78-year-old female with significant dementia, diabetes, hypertension, and prior history of stroke. She presented to the hospital with shortness of breath secondary to heart failure. She was treated with Lasix IV with improvement in breathing. Troponin levels today increased from 12-124. NT proBNP was 6596. An echocardiogram last year had normal LVEF of 65%, moderate AR, mildly dilated aorta, and trivial pericardial effusion. Echo was performed 11/14 that noted new LVD with an EF of 35%. WMA's consistent with Takotsubo vs CAD. Reviewed with Dr Dueñas so we are going to adjust medications for LVD. Today she says her breathing is improved. She is having some abdominal discomfort. She is oriented to person alone. Assessment/Plan HF NYHA Class [] I [] II [] III [] IV []Unable to assess [] N/A Heart failure with reduced ejection fraction -echo 11/14 noted EF to be low at 35% (previously 65 % in December 2023). WMA's consistent with Takotsubo vs CAD. - Was diuresed with Lasix IV, will transition to hydrochlorothiazide for both BP control and diuresis -will change lopressor to toprol -will changed aldactone 25 mg from q 48 hrs to daily -will add lisinopril 20 mg daily -check BMP tomorrow to document stability of electrolytes and renal function. Hypertension - Blood pressures continue to be high. - Will add hydrochlorothiazide. - Continue Aldactone, but will change to daily - Changing metoprolol to toprol 100 mg po daily - will add lisinopril 20 mg daily Atrial fibrillation - She has had 2 episodes of nonsustained atrial fibrillation. - Plan is continue metoprolol for heart rate control. - She is not felt to be a good candidate for oral anticoagulation. -she is currently not on tele Troponin elevation -12-->124. 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 -Denies chest pain. -conservative management is recommended. She is not felt to be a candidate for invasive evaluation and management due to significant underlying dementia/debility Medications: Scheduled Meds[1] Infusion Medications: Continuous Meds[2] Physical Examination: Vitals: 11/14/24 2238 11/15/24 0047 11/15/24 0816 11/15/24 1000 BP: (!) 177/98 (!) 170/97 (!) 174/101 (!) 196/99 BP Location: Right arm Right arm Right arm Right arm Patient Position: Lying Lying Lying Lying Pulse: 92 83 98 89 Resp: 18 20 17 17 Temp: 36.1 C (97 F) 36.2 C (97.1 F) TempSrc: Temporal Temporal SpO2: 95% 97% 94% Weight: Height: Intake/Output Summary (Last 24 hours) at 11/15/2024 1005 Last data filed at 11/15/2024 0620 Gross per 24 hour Intake 240 ml Output 2 ml Net 238 ml Patient Vitals for the past 168 hrs: Weight Weight Method 11/14/24 1300 210 lb (95.3 kg) -- 11/14/24 0500 210 lb (95.3 kg) -- 11/13/242025 210 lb (95.3 kg) Bed scale 11/13/24 1315 225 lb 1.4 oz (102 kg) -- Physical Exam Constitutional: General: She is not in acute distress. Appearance: She is not diaphoretic. HENT: Head: Normocephalic. Eyes: General: Right eye: No discharge. Left eye: No discharge. Conjunctiva/sclera: Conjunctivae normal. Cardiovascular: Rate and Rhythm: Normal rate and regular rhythm. Pulmonary: Breath sounds: No wheezing or rales. Comments: Clear anteriorly Abdominal: General: Bowel sounds are normal. Palpations: Abdomen is soft. Musculoskeletal: Right lower leg: No edema. Left lower leg: No edema. Skin: General: Skin is warm and dry. Findings: No erythema or rash. Neurological: Mental Status: She is oriented to person, place, and time. Comments: Oriented to person only Psychiatric: Mood and Affect: Mood normal. Laboratory Tests: TROPONIN I, CONVENTIONAL SENSITIVITY TROPONIN I Date Value Ref Range Status 12/16/2023 <0.012 <0.034 ng/mL Final 12/16/2023 <0.012 <0.034 ng/mL Final 12/16/2023 <0.012 <0.034 ng/mL Final TROPONIN I, HIGH SENSITIVITY Troponin HS Serial Baseline Date Value Ref Range Status 11/13/2024 12 <=14 ng/L Final Comment: In individuals presenting with symptoms > 2h, a baseline troponin <= 5 ng/L suggests acute cardiac injury is unlikely and further serial testing is generally not indicated. 2h Troponin HS (Serial 2nd Troponin) Date Value Ref Range Status 11/13/2024 124 (H) <=14 ng/L Final Comment: Rising or falling troponin delta greater than 15 ng/L as compared to baseline value is significant for acute cardiac injury. No results found for: TROPDELTBASE No results found for: TROPHS3 No results found for: TROPDELTSEC Recent Labs 11/13/24 1056 11/14/24 0044 11/15/24 0550 NA 141 139 144 K 3.6 3.6 3.3* CL 105 105 107 CO2 20* 21* 22* BUN 28* 32* 40* CREATININE 1.41* 1.37* 1.56* Recent Labs 11/13/24 1056 11/13/24 1532 11/14/24 0044 11/15/24 0550 WBC 10.5 -- 10.5 15.0* HGB 14.5 14.0 14.7 13.9 13.8 HCT 42.0 -- 40.5 40.9 MCV 95.0 -- 92.3 92.5 PLT 261 -- 282 308 Recent Labs 11/13/24 1056 BNP 6,596* No results for input(s): TRIG, HDL, LDLCALC, CHOL in the last 72 hours. No results found for: LDLCHOLESTER No results found for: TSH EF BP Date Value Ref Range Status 11/14/2024 35 (A) 55 - 100 % Final 11/13/24 TRANSTHORACIC ECHOCARDIOGRAM (TTE) COMPLETE (CONTRAST/BUBBLE/3D PRN) 11/14/2024 4:07 PM (Final) Interpretation Summary Technically difficult study. Left Ventricle: Left ventricle size is normal. Mildly increased wall thickness. Moderately reduced left ventricular systolic function. EF by 2D Simpsons Biplane is 35%. See diagram for wall motion findings. Grade II diastolic dysfunction with increased LAP. The following segments are akinetic: mid anterior, mid anteroseptal, mid inferoseptal, mid inferior, mid inferolateral, mid anterolateral, apical anterior, apical septal, apical inferior, apical lateral and apex.The following segments are hypokinetic: basal anteroseptal, basal inferoseptal and basal inferior.All other segments are normal. Findings may be consistent with Takotsubo cardiomyopathy vs. CAD, recommend clinical correlation. Right Ventricle: Right ventricle size is normal. Normal systolic function. TAPSE is normal. Aortic Valve: Not well visualized. Thickened cusps. At least moderate (2+) regurgitation, not well visualized on this study. Tricuspid Valve: Moderately elevated RVSP. RVSP is 53 mmHg. Left Atrium: Left atrium size is severely increased (LA volume index >48 mL/m2). Aorta: Normal sized sinuses of Valsalva. Mildly dilated ascending aorta. Ao ascending diameter is 3.6 cm. Mildly dilated aortic arch. Ao arch diameter is 3.6 cm. Compared to study dated December 17, 2023 the LVEF is worse with new wall motion abnormalities. The aortic regurgitation was present, and may be similar to slightly worse. Signed by: Nishant Kaur MD on 11/14/2024 4:07 PM Other reports reviewed: Cardiac Tests: ECG: Tracing reviewed. Telemetry findings reviewed: not currently on tele EF BP Date Value Ref Range Status 11/14/2024 35 (A) 55 - 100 % Final Ayana Pascual PA-C Date Of Service 11/15/2024 [1] busPIRone, 2.5 mg, Oral, BID DULoxetine, 30 mg, Oral, Daily enoxaparin, 40 mg, SubCUTAneous, Daily famotidine, 20 mg, Oral, Daily gabapentin, 300 mg, Oral, BID insulin lispro, 0-12 Units, SubCUTAneous, TID WC And insulin lispro, 0-12 Units, SubCUTAneous, Nightly levothyroxine, 50 mcg, Oral, qAM AC lisinopril, 20 mg, Oral, Daily melatonin, 3 mg, Oral, Nightly metoprolol succinate XL, 100 mg, Oral, Daily spironolactone, 25 mg, Oral, q24h [2] Images from the original note were not included. Palliative Care Progress Note Chief Complaint: Carline Villarreal is a 78 y.o. female with chief complaint of SOB Palliative care consulted for goals of care Palliative Care is actively following Assessment/Plan Goals of care Carline Villarreal lacks capacity for medical decision-making due to dementia and encephalopathy. -legal surrogate decision maker is sonRosas (Phone: [phone]) - patient has 2 children 1 son and 1 daughter - met with patient and son Rosas this am , patient was more alert, oriented today AxOX2-3 - discussed goals, discussed hospice - Discussed the medicare hospice benefit, explained it will provide nurses, aides, massage therapy, spiritual care, social work and physicians. Discussed comfort medications and supplies will be included. Discussed goals of comfort focused care. Discussed that family will have number to call hospice 24 hours per day for concerns, that they can call hospice instead of 911. Reviewed that if patients require inpatient admission for uncontrolled symptoms they can be directly admitted to Palliative Care and Hospice Unit. - Rosas was appreciative of the information, stated at this time they want patient to go back to [facility] for PT/OT - Rosas stated that they are not ready fro hospice - provided empathetic listening and emotional support to patient and Rosas - patient already has DNRCCA established - discussed with primary team attending Dr. Mayfield, bedside RN - since family has clearly established goals for patient, our team will sign off at this time Acute hypoxic/hypercapnic respiratory failure - improved, patient off oxygen now - per pulmonology notes likely secondary to acute decompensated congestive heart failure which clinically has improved after brisk diuresis Acute on chronic HFpEF - patient volume overloaded on admission - transitioned to hydrochlorothiazide from IV lasix Atrial Fibrillation - nonsustained, 2 episodes, asymptomatic - patient is not a candidate for OAC - on metoprolol 50 mg po BID - per cardiology notes she is not a candidate for invasive evaluation and management due to significant underlying dementia/debility Dementia - patient's mentation better than yesterday, on baseline behaviors - Geriatrics on case Bipolar Disorder/Anxiety - on Duloxetine 30 mg daily, Buspar 2.5 mg BID Stroke with left hemiparesis - PT, OT on case Chronic pain - patient on Oxycodone-Acetaminophen 5/325 mg 1 tab every 8 hours as needed, Gabapentin 600 mg BID at facility - Gabapentin changed to 300 mg BID due to EDWIGE Palliative Care Encounter -Code Status: DNR-CCA - will continue to follow for ongoing monitoring of progression of Dyspnea, Pain, and Constipation as well as for appropriateness for hospice care due to Respiratory Failure and Dementia - will continue to evaluate test results related to Respiratory Failure and Dementia, medication effectiveness for Dyspnea, Pain, and Constipation, response to treatment of Respiratory Failure, Stroke, and Dementia PC Time Stamp: Total of 55 minutes spent on this encounter including Chart review, Patient visit and exam, Documentation in EHR, Care coordination, and Communicating with primary attending or other consultants. Discharge planning: Ready for discharge from Palliative Care perspective, no follow-up needed Patient meets criteria for general inpatient hospice care: No Palliative Care IDT members involved: None Discussed the plan of care with the other interdisciplinary team (IDT) members of the Palliative Care and Hospice teams and Patient, Family, Primary Attending, and Floor Nurse. Subjective: Subjective/Events Carline Villarreal is a 78 y.o. female admitted to [facility] on 11/13 for SOB. Patient seen and examined this morning. Discussed with staff. Patient was calm , quiet this morning when seen. Son Rosas at bedside. Patient was AXOx2-3. Patient denied any complains. Said her SOB is better. Patient was requesting to be discharged back to [place]. Palliative Care Assessments: Goals of care: Go back to facility for PT/OT Advanced Directives: Health Care Power of Employee Benefits Coordinator, DNR Functional Assessment: PPS 30% bedbound; can't do any work/extensive disease; total care; reduced intake; full or drowsy or confusion Prognosis: depends upon goals of care Spiritual Assessment: No spiritual distress identified Bereavement and Grief: To Be Determined PDMP/OARRS Reviewed: No Report Available Social history: Marital status: single Children: Unknown Living status: group home Work history: Retired Garrett status: No Shinto david: Adventist ROS: See palliative care ROS/ESAS below; Detail ROS unable to be obtained due to patient's mental status [place] Symptom Assessment Score [place] Score Pain Score (if non-verbal, add .FLACC below) 0 Tiredness Score 5 Nausea Score 0 Depression Score 0 Anxiety Score 0 Drowsiness Score 2 Anorexia Score (0= eating well, 10= not eating) 6 Wellbeing Score (10= worst sense of well-being) 6 Constipation 0 Dyspnea Score (0= no shortness of breath) 0 Family Meeting: Participants: patient and child Family meeting was held to discuss:Diagnosis and Prognosis, Goals of Care, Treatment Options, Symptom Management, Advanced Care Planning, Prior Expressed Wishes, and Discharge Plan Objective: BP (!) 174/101 (BP Location: Right arm, Patient Position: Lying) Pulse 98 Temp 36.1 C (97 F) (Temporal) Resp 17 Ht 5' 5 (1.651 m) Wt 210 lb (95.3 kg) SpO2 97% BMI 34.95 kg/m Physical Exam Constitutional: Appearance: She is ill-appearing. HENT: Head: Normocephalic and atraumatic. Right Ear: External ear normal. Left Ear: External ear normal. Nose: Nose normal. Mouth/Throat: Mouth: Mucous membranes are moist. Eyes: General: No scleral icterus. Right eye: No discharge. Left eye: No discharge. Conjunctiva/sclera: Conjunctivae normal. Pupils: Pupils are equal, round, and reactive to light. Cardiovascular: Rate and Rhythm: Regular rhythm. Tachycardia present. Pulses: Normal pulses. Heart sounds: Normal heart sounds. No murmur heard. Pulmonary: Effort: Pulmonary effort is normal. Breath sounds: No stridor. No wheezing. Comments: Bilateral basal crackles present Abdominal: General: Bowel sounds are normal. There is no distension. Palpations: Abdomen is soft. Musculoskeletal: General: No swelling. Cervical back: Normal range of motion and neck supple. Right lower leg: No edema. Left lower leg: No edema. Skin: General: Skin is warm. Coloration: Skin is not jaundiced. Neurological: Motor: Weakness present. Comments: AxOx 2-3 Psychiatric: Comments: Calm, comfortable Medication information: 24-hour PRN meds received: Results/Verification of Data Review Objective data reviewed (must include dates reviewed for labs, imaging reports and other specialty notes): Percocet 5/325 mg X 1, Tylenol 650 mg x 1 Data in Support of Terminal Illness: Is patient hospice appropriate? TBD Vickie Parra MD Images from the original note were not included. OCCUPATIONAL THERAPY [facility] Initial Evaluation Name/MRN: Carline Villarreal ([id number]) Evaluation Date: 11/15/2024 Date of : 1945 Admission Date: 11/13/2024 10:39 AM Age: 78 y.o. [facility]: [facility] Discharge Recommendation: Assisted Facility Equipment Needed: No Assessment IMPRESSION: Pt in 11/13 with acute exacerbation of chronic heart failure, PNA, SOB. She previously reports being independent for ADLs, functional transfers/mobility with a rollator. She is currently max of 1-2 for bed mobility, transfers with a front wheel walker. She requires dependent to max assist for lower body ADLs and mod assist for upper body ADLs. She is limited by increased fatigue, weakness, and complaints of abdominal pain at this time. She requires increased cueing for sequencing this date for completion of bed mobility, transfers, and toileting tasks this date. She completed partial lower body dressing task with dependent level assist overall to thread pants over bilateral lower extremities however unsafe in standing to attempt to assist with managing up over hips at this time. She would benefit from skilled OT services to address the below.-Plan discharge for SNF at this time. Admitting Diagnosis: Acute exacerbation of chronic heart failure, pneumonia, shortness of breath Performance Deficits /Impairments: Increased Pain, Decreased Functional Mobility, Decreased ADL status, Decreased Strength, Decreased Safety Awareness, Decreased Endurance, Decreased Balance, Decreased High Level IADLs, and Decreased Cognition Prognosis: Good Decision Making: Medium Complexity Subjective Pleasantly confused and cooperative. OK to see per RN. Agreeable to therapy evaluation. Pain: 0-10 pain scale: 7/10 Location: abdominal pain. 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) 01/06/2019 Unilateral paralysis as late effect of cerebrovascular accident (CVA) ([facility]) 01/06/2019 Migraine headache 01/06/2019 Hypothyroid 01/06/2019 Gout 01/06/2019 Gastroesophageal reflux disease 01/06/2019 Dementia (HCC) 01/06/2019 Obesity 01/06/2019 Psoriasis 01/06/2019 Cerebrovascular accident (HCC) 07/19/2017 Anxiety 07/19/2017 HTN (hypertension) 07/19/2017 Hyperlipidemia 07/19/2017 Medical Precautions: Droplet Proper PPE donned/doffed in accordance with facility standards. Fall Risk: Oleary Fall Risk Score: 60 (High Risk) Precautions/Restrictions: N/A Family/Caregiver Present: none Overall Cognitive Status: Exceptions - Following commands: follows one step commands with repetition - Attention span: attends with cues to redirect - Memory: decreased recall of recent events and decreased short term memory - Safety judgement: decreased awareness of need for assistance and decreased awareness of need for safety - Problem solving: assistance required to identify errors made and assistance required to correct errors made - Insights: decreased awareness of deficits - Initiation: requires cues for some - Sequencing: requires cues for some Overall Orientation Status: Oriented to Situation, Oriented to Person, and Disoriented to Place Social/Functional History Patient admitted from home. Lives With: Parent Type of Home: single family home Home Layout: Two Level Home and Able to Live on Main Level Home Access: Level Entry Bathroom Shower/Tub: Tub/Shower Combo, Shower Chair with Back, and Grab Bars Toilet: Handicap Height and Grab Bars Home Equipment: rollator and cane Homemaking Responsibilities: Independent Receives Help From: None Active Special Delivery Carrier: Yes Prior Level of Function Prior Level of ADL Function: Independent Prior Level of Mobility: Independent; Device: Rollator Prior Level of Transfers: Independent Objective ADLs LE Dressing: Dependent Toileting: Dependent Patient is significantly limited by increased pain, fatigue, instability, and weakness at this time. She demos poor functional reach at this time participation in ADL tasks and sitting edge of bed. Patient completed partial lower body dressing tasks this date with dependent level assist throughout hospital pants at this time. Increased assist from therapist provided to complete with patient able to count legs to assist. Patient required assist of 2 for standing at this time for stability with noted posterior lean throughout. Have reliance on front wheel walker noted. Unsafe to attempt to manage movements at this time. Patient with incontinence during session requiring dependent level bed level toileti tasks. She required total assist this date to complete MADI care at this time with assist to doff soiled briefs. She was able to roll right and left to assist with max assist this date and heavy reliance on bed rails. Upper Extremity Assessment AROM: Exceptions: RUE ~ 90 BUE shoulder flexion, LUE <90 shoulder flexion observed with diminised noted grasp / fine motor coordination at this time. 2/2 hx of CVA. PROM: Not assessed this session Strength: Exceptions: RUE > +3/5 grossly observed, LUE 2+/5 Bed Mobility Supine to sit: Max Assist Sit to supine: Max Assist Rolling to right: Max Assist Rolling to left: Max Assist Scooting: Max Assist Head of bed elevated. Increased time required to complete. Increased cueing this date for sequencing initiation at this time. Max assist overall for supine to sit mobility this date with heavy reliance on bed rails and consent from therapist for bilateral lower extreme management and trunk control at this time. Denies dizziness with positional changes however increased abdominal discomfort with completion. Once in sitting edge of bed, patient required standby assist overall for static sitting balance. Increased assist from draw pad this date to square hips to edge of bed. Patient current max assist overall for return to supine this date for lower extreme management and trunk control this date. Max assist for rolling right and left with noted roll to left easier than right to right. Completed rolls x 6 this date to complete MADI care and adjust bilateral hospital pads. Transfers/Mobility Sit to stand: Max Assist, x2 Person Assist Stand to sit: Max Assist, x2 Person Assist Patient completed sit to stand transfer from edge of bed to front wheel walker with max assist of 2 this date. Initially attempted with max assist of 1 however unable to safely complete this date secondary to noted instability in bilateral lower extremities with feet sliding forward during transfer attempts despite provided foot block from therapist. Completed second attempt with assistance from RN with max assist of 2 for lifting to standing as well as bilateral foot block from both therapist and RN this date. Patient with noted posterior lean throughout with heavy reliance on pull up on front wheel walker this date requiring assist to stabilize device. Patient only able to tolerate approximately 5 seconds and standing before requiring return to sitting this date. Unsafe to attempt lower body dressing tasks in standing at this time secondary to poor activity tolerance and instability. Device(s) used: Front wheeled walker Vision: wears glasses at all times and and are NOT being used during the eval (not present) Hearing: normal AM-PAC AM-PAC Inpatient Daily Activity Raw Score: 10 ADL Inpatient CMS G-Code Modifier: CL Plan Pt would benefit from skilled acute OT services to address Strengthening, Balance Training, Self-Care/ADL Training, Functional Mobility Training, Endurance Training, Safety Education and Training, Pain Management, Equipment Evaluation/Education, Cognitive Reorientation, Patient/Caregiver Training, and Cognitive/Perceptual Training. Frequency: 7 visits during current hospital admission or until additional recommendations are made Barriers: Pain, Impaired balance, Lower extremity weakness, Upper extremity weakness, Decreased endurance, Limited safety awareness, Confusion, Stairs at home, Cognitive deficit, and Impulsivity Safety/Education Safety Safety Devices in place: All fall risk precautions in place, call light within reach, left in bed, bed alarm in place, gait belt, patient at risk for falls, and nurse notified Restraints: No Education Education Given To: patient Education Provided: OT Role, Plan of Care, ADL Adaptive Strategies, Transfer Training, Equipment, Fall Prevention Education, Discharge Recommendations, and Benefits of Increasing Activity Education Method: Verbal, Demonstration, and Teach Back Barriers to Learning: Cognition Education Outcome: Continued Education Needed Goals Patient Stated Goal: to get up to the bathroom. Encounter Problems Encounter Problems (Active) Dressing Upper Extremities Patient will complete upper body dressing SBA (Not Addressed) Start: 11/15/24 Expected End: 11/25/24 Dressings Lower Extremities Patient will dress lower body MIN A (Slowly Progressing) Start: 11/15/24 Expected End: 11/25/24 Mobility Patient will demonstrate functional mobility with MOD A and FWW (Not Addressed) Start: 11/15/24 Expected End: 11/25/24 Therapeutic Exercise Pt will demo good participation in BUE exercises to increase endurance and strength for participation in ADLs and functional transfers / bed mobility. (Not Addressed) Start: 11/15/24 Expected End: 11/25/24 Toileting Patient will complete toileting tasks at bedside commode with mod assist. (Slowly Progressing) Start: 11/15/24 Expected End: 11/25/24 Transfers Patient will complete functional transfer with rolling walker with mod assist in order to prepare for ambulation. (Slowly Progressing) Start: 11/15/24 Expected End: 11/25/24 Patient will perform bed mobility with supervision in order to improve independence and prepare for out of bed mobility. (Slowly Progressing) Start: 11/15/24 Expected End: 11/25/24 Therapy Time Individual Co-Treatment Co-Evaluation Time In 0855 Time Out 0941 Minutes 46 Timed Code Treatment Minutes: 24 Minutes (ADL x2) Yazan Wells OT Patient's Occupational Therapy Plan of Care supervision is transferred to a [facility] Occupational Therapist. Goals and/or treatment plan was established in collaboration with patient/family/other representatives. [1] Past Medical History: Diagnosis Date Diabetes mellitus (HCC) Hypertension Stroke (HCC) [2] No past surgical history on file. Images from the original note were not included. [facility], Pulmonary Medicine [address] [place], [place] [id number] Patient - Carline Villarreal, Age - 78 y.o. - 1945 Room Number - [id number] A Consulting - Ni Sam MD Primary Care Physician - Evi Guevara Acct: No I do not have problem with the patient you know he was kind of he wanted to go home today I just kept him so Maybe can do little earlier okay [phone] [id number] Date of Admission - 11/13/2024 10:39 AM Hospital Day - 2 Chief Complaint Carline Villarreal is a 78 y.o. female who pulmonary is following for respiratory failure Interval History Awake and alert resting on the bed Denies shortness of breath or chest pain Oxygen saturation 95 to 97% on room air Not using PAP therapy Chest x-ray from this morning reviewed interpreted by me Marked improvement in congestive heart failure pleural effusion May have mild underlying congestion No focal infiltrate HPI Carline Villarreal is a 78 y.o. female admitted for Shortness of breath noted to be in acute hypoxic hypercapnic respiratory failure decompensated congestive heart failure Patient does have a history of dementia as per chart group home resident, diabetes mellitus hypertension stroke Admitted with above complaint Initial VBG did show pH 7.229 pCO2 of 55 pO2 of 32 Patient received IV Lasix diuresed well placed on NIV Follow-up VBG showed pH 7.74 pCO2 of 30 and PO2 of 47 EKG showed T inversion ST ST depression elevated troponin This morning apparently has episode of tachyarrhythmia as per cardiology atrial fibrillation Her saturation was 97 percentile feeling much better this morning however she is not a good historian Currently she was on room air saturation was 97 percentile Never smoked Not on PAP therapy at home Apparently came from [facility] ago Chest x-ray reviewed interpreted by me Vascular congestion with a small bilateral pleural effusion All other systems reviewed Objective Vitals: BP (!) 174/101 (BP Location: Right arm, Patient Position: Lying) Pulse 98 Temp 36.1 C (97 F) (Temporal) Resp 17 Ht 5' 5 (1.651 m) Wt 210 lb (95.3 kg) SpO2 97% BMI 34.95 kg/m Pulse Ox: SpO2 Av.7 % Min: 92 % Max: 97 % Supplemental O2: O2 Flow Rate (L/min): 4 L/min I/O 24HR INTAKE/OUTPUT: Intake/Output Summary (Last 24 hours) at 11/15/2024 0850 Last data filed at 11/15/2024 0620 Gross per 24 hour Intake 240 ml Output 2 ml Net 238 ml Exam General appearance: Resting comfortably no respiratory distress HEENT: Normocephalic, atraumatic. Pupils equil and round, External ear normal, conjunctivae normal, negative for scleral icterus. No congestion. Neck: ROM normal, supple, trachea midline. No lymphadenopathy Cardiovascular: Irregular rhythm. Heart sounds normal. Negative for murmur, friction rub or gallop. Tachycardic Pulmonary: Effort normal, no respiratory distress. Moderate air entry Rales posteriorly No wheezing Abdomen: Soft, non distended, non tender, bowel sounds normal. No palpable masses. No Hepatomegaly Musculoskeletal: ROM normal, Negative for swelling, tenderness or deformity. Skin: Warm, dry. Skin color, texture, turgor normal. Negative for rashes or lesions. Extremities: No clubbing, cyanosis, 1+ bipedal edema Neurological: No focal deficits. Alert and oriented x 1. Cranial nerves II-XII are intact Lymphatics: No cervical or axillary lymphadenopathy Psychiatric: Mood, behavior, thought content normal. Cooperative with exam. Medications Current Medications Scheduled Meds[1] PRN Mediations PRN Meds[2] IV Drips/Infusions Continuous Meds[3] Labs CBC Results from last 7 days Lab Units 11/15/24 0550 WBC AUTO 10*3/uL 15.0* HEMOGLOBIN g/dL 13.8 HEMATOCRIT % 40.9 PLATELETS 10*3/uL 308 BMP: Results from last 7 days Lab Units 11/15/24 0550 11/14/24 0044 11/13/24 1056 SODIUM mmol/L 144 139 141 POTASSIUM mmol/L 3.3* 3.6 3.6 CHLORIDE mmol/L 107 105 105 CO2 mmol/L 22* 21* 20* BUN mg/dL 40* 32* 28* CREATININE mg/dL 1.56* 1.37* 1.41* GLUCOSE mg/dL 169* 248* 169* CALCIUM mg/dL 9.2 9.6 9.1 ABG: Results from last 7 days Lab Units 11/13/24 1532 11/13/24 1056 SOURCE OF OXYGEN Nasal Cannula (LPM) Nasal Cannula (LPM) LIVER PROFILE Results from last 7 days Lab Units 11/13/24 1056 ALK PHOS U/L 101 BILIRUBIN TOTAL mg/dL 0.6 PROTEIN TOTAL g/dL 6.8 ALT U/L 11 AST U/L 20 INR PTT No results found for: PTT Cultures Influence pcr neg Radiology Exam Date/Time: 11/13/2024 11:11 Procedure: XR CHEST 1 VIEW Ordering Provider: SALEEM AMY Reason For Exam: COUGH CHEST - PORTABLE: CLINICAL INDICATION: COUGH TECHNIQUE: Portable AP COMPARISON: None. IMPRESSION: FINDINGS/IMPRESSION: Limitations: Mild patient rotation Lines, tubes, and devices: None. Cardiomediastinal silhouette: Heart size is within normal limits. Atherosclerotic calcifications in the thoracic aorta. Lungs/Pleura: Pulmonary vascular congestion right side greater than left. Additional hazy and streaky opacities right greater than left lung base suspicious for pneumonia. There may be a trace layering right pleural effusion. No pneumothorax. Osseous structures: Degenerative spondylosis in the visualized spine. Postsurgical changes shoulders. Soft tissues: No soft tissue abnormality is detected. Active Hospital Problem List Problem List[4] Assessment and Plan -Acute hypoxic hypercapnic respiratory failure improved - Likely secondary to acute decompensated congestive heart failure which clinically has improved after brisk diuresis - No signs of CO2 narcosis, repeat VBG did show improved hypercarbia as well as pH - Chest x-ray more compatible with congestive heart failure with pleural effusion - Clinical suspicion for pneumonia is low in view of normal WBC count afebrile normal procalcitonin - Cardiac arrhythmia/abnormal EKG T inversion ST depression/elevated troponin, previous echocardiogram did show moderate aortic regurgitation Patient clinically appears to have improved since admission with brisk diuresis Likely has underlying ischemic heart disease leading to congestive heart failure as well as cardiac arrhythmia Cardiology evaluation and recommendation noted Clinical suspicion for pneumonia is low, would recommend de-escalation of antibiotics pending culture result Will repeat the chest x-ray in the morning to follow-up CHF as well as pleural effusion Patient saturating well on room air currently As noted above chest x-ray did show marked improvement saturating well on room air not using PAP therapy Echocardiogram did show ejection fraction 35% and left ventricular dysfunction Cardiology adjusting medication Will discontinue the PAP therapy at the patient not using it Patient is off antibiotics Advance Directive: DNR-CCA Case discussed with nurse and patient/ Questions and concerns addressed. Portions of the information within this encounter were entered using an electronic dictation system. Best attempts were made to edit/proofread the information prior to note completion. Despite the review of information, some errors may remain. If there are questions related to the information contained within the note please contact the signing provider directly. [1] busPIRone, 2.5 mg, Oral, BID DULoxetine, 30 mg, Oral, Daily enoxaparin, 40 mg, SubCUTAneous, Daily famotidine, 20 mg, Oral, Daily gabapentin, 300 mg, Oral, BID insulin lispro, 0-12 Units, SubCUTAneous, TID WC And insulin lispro, 0-12 Units, SubCUTAneous, Nightly levothyroxine, 50 mcg, Oral, qAM AC melatonin, 3 mg, Oral, Nightly metoprolol tartrate, 50 mg, Oral, BID spironolactone, 25 mg, Oral, q48h [2] PRN medications: acetaminophen OR acetaminophen, aluminum & magnesium hydroxide-simethicone, aqdizgc-joxobumpyzuen-amoghgrl, dextrose, dextrose, glucagon (rDNA), glucose, hydrALAZINE, ipratropium-albuterol, labetalol, lidocaine, magnesium hydroxide, naloxone, ondansetron ODT OR ondansetron, oxyCODONE-acetaminophen, phenol, polyethylene glycol (PEG) 3350, SUMAtriptan [3] [4] Patient Active Problem List Diagnosis Left-sided weakness Hypertensive chronic kidney disease with stage 1 through stage 4 chronic kidney disease, or unspecified chronic kidney disease Cerebrovascular accident (HCC) Bipolar disorder (HCC) Anxiety Vitamin D deficiency Recurrent major depression (HCC) Unilateral paralysis as late effect of cerebrovascular accident (CVA) (HCC) Migraine headache Hypothyroid HTN (hypertension) Hyperlipidemia Gout Gastroesophageal reflux disease Dysphagia Dementia (HCC) 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 PHYSICAL THERAPY [facility] Name/MRN: Carline Villarreal ([id number]) Date: 11/14/2024 PT orders received. Chart reviewed. Pt currently with nursing and unavailable for PT session. Will re-attempt as pt appropriate and schedule permits. Justina Doyle PT Hospitalist Progress Note Subjective: Admit Date: 11/13/2024 PCP: Evi Guevara Room#: [id number] A Chief Complaint Patient presents with Shortness of Breath Pt reports SOB from SNF. Per EMS pt was at 76% on RA on arrival. EMS states HX CHF and placed pt on BiPAP for transport to ED. Brief Hospital course: 78 y.o. female Pt reports from SNF w/ SOB, reported 76% sp02 on Room Air when EMS first arrived. She was placed on BIPAP during transport to ED. Does have PMH notable for CVA with left sided sequelae, T2DM, HTN, Hypertensive CKD, Anxiety, Obesity, Migraine, Gout, Insomnia and Dementia Notable first trop 12 with delta trop HS of 124. Patient evaluated by pulm/crit care. Plan for Bipap nightly with NC during day. Imaging in ED notable for streaky opacities concerning for PNA in bilateral lobe bases Right >left and pulmonary congestion Right>left. Pneumonia rule out abx discontinued, reconsider if status change ECG in ED did have some notable T wave inversion without ST component, nonsustained afib Cardiology consulted for HF management in ED, troponin appears demand mediated. Syrian as a second language, well spoken with cognition changes 2/2 dementia/cva near baseline Rate control with beta liana 11/14, not a candidate for OAC or invasive intervention cardiac, Diuresing with improvement to room air daytime Interval History: 11/15/2024-No overnight issues. Patient having echocardiogram performed today, Now on room air, no productive cough, denies acute complaint with improved breathing. Some episodes of confusion with attempts to leave bed unassisted, redirectable, geriatrics consult for delerium in setting underlying dementia with qtc prolongation considerations. Case and plan discussed with patient and bedside nurse. All questions answered. Past Medical History: Medical History[1] Adult diet Regular 24HR INTAKE/OUTPUT: Intake/Output Summary (Last 24 hours) at 11/15/2024 0720 Last data filed at 11/15/2024 0620 Gross per 24 hour Intake 240 ml Output 2 ml Net 238 ml LABS: CBC: Recent Labs 11/13/24 1056 11/13/24 1532 11/14/24 0044 WBC 10.5 -- 10.5 RBC 4.42 -- 4.39 HGB 14.5 14.0 14.7 13.9 HCT 42.0 -- 40.5 MCV 95.0 -- 92.3 RDW 13.7 -- 13.5 PLT 261 -- 282 BMP: Recent Labs 11/13/24 1056 11/14/24 0044 NA 141 139 K 3.6 3.6 CL 105 105 CO2 20* 21* BUN 28* 32* CREATININE 1.41* 1.37* GLUCOSE 169* 248* CALCIUM 9.1 9.6 ANIONGAP 16* 13 LIVER PROFILE: Recent Labs 11/13/24 1056 AST 20 ALT 11 BILITOT 0.6 ALKPHOS 101 PROT 6.8 PT/INR: No results for input(s): PROTIME, INR in the last 72 hours. CARDIAC ENZYMES: No results for input(s): TROPONINI in the last 72 hours. Procalcitonin: Lab Results Component Value Date PROCAL 0.02 11/13/2024 COVID-19 PCR: No results for input(s): COVID19 in the last 72 hours. Objective: Vitals: BP (!) 170/97 (BP Location: Right arm, Patient Position: Lying) Pulse 83 Temp 36.1 C (96.9 F) (Temporal) Resp 20 Ht 5' 5 (1.651 m) Wt 210 lb (95.3 kg) SpO2 95% BMI 34.95 kg/m Pulse Ox: SpO2 Av % Min: 92 % Max: 98 % Supplemental O2: O2 Flow Rate (L/min): 4 L/min Physical Exam Constitutional: Comments: Conversant and pleasantly confused with occasional inconsistent answer, HENT: Head: Normocephalic. Eyes: Extraocular Movements: Extraocular movements intact. Cardiovascular: Rate and Rhythm: Normal rate. Pulmonary: Comments: Improved respirations to room air, diminished lung lee bilateral bases, Abdominal: Palpations: Abdomen is soft. Skin: General: Skin is warm and dry. Neurological: Mental Status: She is alert. She is disoriented. Psychiatric: Comments: Some occasional confusion with efforts to leave bed Medications: Scheduled PRN Scheduled Meds[2] PRN Meds[3] Continuous Continuous Meds[4] Assessment Data: (CAT1) Reviewed 2 notes from different specialty or health system (each=1). (CAT1) Reviewed 2 labs/studies previously ordered by me not previously counted (each=1, panels count as 1). (CAT3) Mgmt of the patient was discussed with Antibiotic stewardship , who stated, in summary: Findings not supportive for PNA consider discontinuing abx regimen, on review of course in agreement for discontinuation (LOW: 2x CAT1 or independent historian MOD: 3x CAT1 or 1x CAT3 EXTENSIVE: 3x CAT1 and 1x CAT3) Acute, acute on chronic, unstable/uncontrolled chronic problems/diagnoses: CHF exacerbation Bilateral HAP rule out -abx discontinued Delerium symptoms with underlying dementia OHS/GABRIELE at bedtime bipap Episodes of nonsustained atrial fibrillation -cardiology consult Stable chronic problems affecting care, new non-acute diagnoses: Bipolar disorder Anxiety with depressive symptoms Hx CVA with left sided sequelae HTN Hypothyroid T2DM hx Obesity class 2 Hx gout Hx migraines Insomnia Plan As a result of the above findings & factors, the following mgmt was pursued: GMF - Pulm consult to follow, recs per note-plan for bipap at bedtime - home meds as ordered - Vancomycin-zosyn discontinued 11/14 - Cardiology following -pending tte, continue iv lasix bid today, transition to hydrochlorothiazide 11/15 -Afib rate control metoprolol 50mg bid, increase to 100 if needed for rate control of sustained tach. 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 Chronic illness with severe exacerbation, progression, or side effect of tx (HIGH). Multiple stable chronic illnesses (MOD). Risk: Use/consideration of a high risk treatment or study: IV controlled substances and physical restraints deferred with redirectbile (HIGH). Admission to hospital-level care was considered or occurred (HIGH). Prescription drug/IVF/colloid was initiated, discontinued, adjusted; or reviewed with decision to maintain current orders (MOD). Advance Directive: DNR-CCA Anticipated Discharge - Date - 11/17 - Location - Skilled Facility - Pending the following - improved respiratory status, specialist recs, fluid overload reduction Total time spent (which include face to face and non face to face encounters) : 52 minutes Extended Emergency Contact Information Primary Emergency Contact: Rosas Kwon Mobile Relation: Son Secondary Emergency Contact: Nicolette Ren Mobile Relation: Sister Dominguez Orlin Franz MD Division of Hospital Medicine [place] [place]] Past Medical History: Diagnosis Date Diabetes mellitus (HCC) Hypertension Stroke (HCC) [2] busPIRone, 2.5 mg, Oral, BID DULoxetine, 30 mg, Oral, Daily enoxaparin, 40 mg, SubCUTAneous, Daily famotidine, 20 mg, Oral, Daily gabapentin, 300 mg, Oral, BID insulin lispro, 0-12 Units, SubCUTAneous, TID WC And insulin lispro, 0-12 Units, SubCUTAneous, Nightly levothyroxine, 50 mcg, Oral, qAM AC melatonin, 3 mg, Oral, Nightly metoprolol tartrate, 50 mg, Oral, BID spironolactone, 25 mg, Oral, q48h [3] PRN medications: acetaminophen OR acetaminophen, aluminum & magnesium hydroxide-simethicone, phjnwrn-ohlojxrrdknvb-qtdmugjf, dextrose, dextrose, glucagon (rDNA), glucose, hydrALAZINE, ipratropium-albuterol, labetalol, lidocaine, magnesium hydroxide, naloxone, ondansetron ODT OR ondansetron, oxyCODONE-acetaminophen, phenol, polyethylene glycol (PEG) 3350, SUMAtriptan [4] Pharmacy to Dose Vancomycin - Progress Note Recent Labs 11/13/24 1056 11/14/24 0044 BUN 28* 32* CREATININE 1.41* 1.37* Lab Results Component Value Date [facility] 16.8 11/14/2024 Doses, serum creatinine, and vancomycin levels interfaced automatically to [employer] and data has been analyzed and interpreted. Infectious Diagnosis: HAP Est CrCl: 43 mL/min (Cockcroft-Gault) Assessment: Current regimen vancomycin 1000 mg every 24 hours. Predicted AUC = 555 mg/L*hr (goal 400-600 mg/L*hr) Plan: Is the current dose therapeutic? [x] Yes - obtain next level on 11/21/24 unless predicted AUC is sub-/supra-therapeutic or change in serum creatinine. Trend serum creatinine. Trend AUC using Bayesian Modeling. Orders placed. DATE: 11/14/24 TIME: 9:41 AM Leandra Cordero RPh Pharmacist Available via Secure Chat [facility] Respiratory Care Department Progress Note Comment or reasoning for refusal: Patient was seen in attempts to fulfill CPAP/BiPAP/AutoPAP order. Patient refused PAP therapy/study at this time. Patient was educated on medical need and reasoning for physician order to ensure patient was making an informed medical decision. All of the patient's questions were answered at this time and patient was informed that if the patient changes their mind regarding wearing PAP to hit their call light or inform their nurse to contact Respiratory. A second, consecutive night of refusing PAP therapy/study results in order completion in the EMR. If future CPAP/BiPAP/AutoPAP therapy or study is indicated please place another order in the EMR and the assigned Respiratory Therapist will reattempt to fulfill orders. Thank you for involving Respiratory in the care of this patient, documented in this encounter [facility] 11-21-2024 Note [facility] Wound Care Progress Note Carline Villarreal AGE: 78 y.o. GENDER: female : 1945 Subjective: HISTORY of PRESENT ILLNESS HPI Carline Villarreal is a 78 y.o. female who presents for a wound care follow up. HPI: Carline is a 78 y.o. female who presented to ED on 11/13/24 with chief complaint od SOB. Patient from SNF w/ SOB, reported 76% sp02 on room air when EMS first arrived. She was placed on BIPAP during transport to ED. Wound Care consulted for Pressure Injury Buttocks Patient sitting up in bed eating pudding. ET mix noted at bedside. Treatment completed. PAST MEDICAL HISTORY Medical History[1] PAST SURGICAL HISTORY Surgical History[2] FAMILY HISTORY Family History[3] SOCIAL HISTORY Social History[4] ALLERGIES Allergies[5] MEDICATIONS Medications Ordered Prior to Encounter[6] REVIEW OF SYSTEMS Pertinent items are noted in HPI. Objective: BP (!) 161/89 (BP Location: Right arm, Patient Position: Lying) Pulse 79 Temp 36.3 ?C (97.4 ?F) (Temporal) Resp 18 Ht 1.651 m (5' 5) Wt 95.3 kg (210 lb) SpO2 98% BMI 34.95 kg/m? PHYSICAL EXAM General appearance: in no apparent distress, well developed and well nourished, in no respiratory distress and acyanotic, and alert Skin: warm and dry Pulmonary: Normal effort, no respiratory distress, no cyanosis Bilateral buttocks: Scattered open areas with pink wounds beds that appear to be healing. No drainage noted. Madi wound with blanchable erythema, staining from prolonged pressure to area, fragile. Improving 11/20/24 LABS CBC: Lab Results Component Value Date WBC 10.2 11/21/2024 HGB 14.2 11/21/2024 HCT 43.4 11/21/2024 MCV 96.9 11/21/2024 PLT 312 11/21/2024 BMP: Lab Results Component Value Date NA 138 11/21/2024 K 3.7 11/21/2024 CL 104 11/21/2024 CO2 21 (L) 11/21/2024 BUN 29 (H) 11/21/2024 CREATININE 1.17 (H) 11/21/2024 PT/INR: No results found for: PROTIME, INR Prealbumin: No results found for: PREALBUMIN Albumin:No components found for: LABALBU Sed Rate:No results found for: SEDRATE Micro: No components found for: BC Assessment/Plan: Nursing staff to perform dressing change: Bilateral buttocks: MASD (Bodily fluids) - Improving -cleanse with soap and water, apply ET mix TID and PRN, leave [facility] -waffle chair cushion -Q2hr/PRN turns -glide sheets for T&R -continence checks Q1-2 Hrs/PRN Nutritional support Wound Care to follow Recommend to follow up at [facility] Outpatient wound care center after hospital discharge. Any questions or concerns please secure chat [facility] wound/ostomy. Thank you for the consult! I personally obtained the rucker and critical portions of the history and physical exam. I reviewed the labs, imaging studies, and electronic medical record. I reviewed the chart documentation and discussed the patient with treatment team members. I have edited the note to reflect my clinical findings and my assessment and plan. Please note, the time of this note does not reflect the time I saw this patient today, but the time of this documentaton. Portions of this note including HPI, ROS, impression/plan, and examination may have been copied forward from admission to today as to provide important historical information essential in contributing to medical decision making. Documentation has been reviewed and edited as necessary to support clinical decision making for today's visit and to reflect my own independent evaluation of this patient. Decision making for today's visit and to reflect my own independent evaluation of this patient. [1] Past Medical History: Diagnosis Date Diabetes mellitus (HCC) Hypertension Stroke (HCC) [2] History reviewed. No pertinent surgical history. [3] No family history on file. [4] Social History Tobacco Use Smoking status: Some Days Types: Cigarettes Substance Use Topics Alcohol use: Not Currently Drug use: Not Currently [5] No Known Allergies [6] No current facility-administered medications on file prior to encounter. Current Outpatient Medications on File Prior to Encounter Medication Sig Dispense Refill acetaminophen (Tylenol) 325 MG tablet Take 650 mg by mouth every 6 hours as needed for mild pain (1-3), moderate pain (4-6) or fever. aluminum-magnesium hydroxide-simethicone (Maalox MAX) 400-400-40 MG/5ML suspension Take 10 mL by mouth every 4 hours as needed for indigestion or heartburn. atorvastatin (Lipitor) 40 MG tablet Take 40 mg by mouth daily. bisacodyl (Dulcolax) 5 MG EC tablet Take 5 mg by mouth Daily as needed for constipation. Do not crush, chew, or split. bisacodyl (Dulcolax) 5 MG EC tablet Take 5 mg by mouth Daily as needed for constipation. Do not crush, chew, or split. busPIRone (Buspar) 5 MG tablet Take 2.5 mg by mouth 2 times daily. cloNID (more content not included)... [facility] 11-20-2024 Note Hospitalist Progress Note 11/20/2024 [phone]: Please page me ([phone]) for patient care issues. [phone]: Please page [facility] Hospitalist for any issues. Subjective: Admit Date: 11/13/2024 PCP: Evi Guevara Room#: [id number]/[id number] Annamaria Villarreal is a 78 y.o. female who presents with Acute exacerbation of chronic heart failure (HCC) Interval History: 78-year-old female patient is admitted with acute on chronic CHF. Cardiology is consulted, echo revealed 35% EF. Echo is consistent with Takotsubo, and it was decided that she would not be a candidate for invasive treatment, given her age and dementia. On Wednesday her discharge was held because of leukocytosis and tachycardia, over the weekend urine sample was not obtained. Chest x-ray was noted with mild pulmonary vascular congestion, discontinued hydrochlorothiazide and spironolactone because of EDWIGE. Today she is much more alert and the speech is intelligible. Pulmonology service was consulted because of acute hypoxic respiratory failure which seems to have improved with diuresis Denies any chest pain, shortness of breath, nausea female fevers chills Adult diet Dysphagia - Pureed 24HR INTAKE/OUTPUT: Intake/Output Summary (Last 24 hours) at 11/20/2024 1633 Last data filed at 11/20/2024 1256 Gross per 24 hour Intake 60 ml Output -- Net 60 ml LABS: CBC: Recent Labs 11/18/2453611/19/243 11/20/24 0309 WBC 12.2* 13.3* 12.8* RBC 4.05 4.14 4.48 HGB 12.7 13.3 14.3 HCT 39.1 39.8 43.7 MCV 96.5 96.1 97.5 RDW 14.2 14.5 14.8 PLT 231 248 279 BMP: Recent Labs 11/18/2453611/19/[id number]/20/24 0309 NA 144 138 138 K 2.9* 3.3* 3.6 CL 108* 106 106 CO2 23 20* 21* BUN 68* 59* 44* CREATININE 1.76* 1.60* 1.29* GLUCOSE 168* 142* 140* CALCIUM 8.1* 8.3* 8.7* ANIONGAP 13 12 11 LIVER PROFILE: No results for input(s): AST, ALT, BILITOT, ALKPHOS, PROT in the last 72 hours. No lab exists for component: LABALBU PT/INR: No results for input(s): PROTIME, INR in the last 72 hours. CARDIAC ENZYMES: No results for input(s): TROPONINI in the last 72 hours. Procalcitonin: No results found for: PROCAL @RISRSLTSPECIALTY@ Objective: Vitals: BP (!) 176/81 Pulse 85 Temp 36.1 ?C (97 ?F) (Temporal) Resp 16 Ht 5' 5 (1.651 m) Wt 210 lb (95.3 kg) SpO2 99% BMI 34.95 kg/m? Pulse Ox: SpO2 Av % Min: 99 % Max: 99 % Supplemental O2: O2 Flow Rate (L/min): 3 L/min 11/20/2024 General appearance: Awake alert oriented x 1, appears to be in no distress Cardiovascular: S1, S2, regular rhythm, no murmurs gallops or rubs Respiratory: Diminished breath sounds bilaterally, no wheezing or rhonchi Abdomen: Benign, positive bowel sounds, soft, nontender Musculoskeletal: No edema, no calf tenderness. Skin: No rash or lesions Neurological: Awake alert oriented x 1, no acute motor or sensory deficits Medications: Continuous Meds[1] Scheduled Meds[2] PRN Meds[3] Assessment Acute on chronic heart failure with reduced ejection fraction Moderate aortic valve regurgitation Acute kidney injury-creatinine increased to 2.2, holding lisinopril, hydrochlorothiazide and spironolactone, creatinine today is 1.2 Sepsis syndrome, ruled out Takotsubo cardiomyopathy versus CAD, cardiology service following and they had added spironolactone, lisinopril initially but held them because of EDWIGE Type 2 DM with hyperglycemia Uncontrolled hypertension -holding lisinopril , added hydralazine delirium symptoms with underlying dementia-she also lacks capacity for medical decision making, geriatric services following OHS/GABRIELE at bedtime bipap Bilateral pressure ulcers on buttocks- POA Episodes of nonsustained atrial fibrillation -, rate control with metoprolol and may increase to 100 mgs bid if needed Chronic problems Bipolar disorder CKD stage III with creatinine at baseline of 1.3-1.5 , today creatinine at 1.6, EDWIGE RULED OUT Anxiety with depressive symptoms-continue BuSpar Hx CVA with left sided sequelae Hypothyroid-continue levothyroxine Obesity class 2 Hx gout Hx migraines Insomnia Plan Reviewed CBC BMP and ordered CBC BMP in a.m. Discussed with palliative service and the family is not ready for hospice, already DNR CCA, palliative service signed off Ordered urine analysis that was not done on Wednesday Speech therapy recommends modified diet Discussed with geriatric service and continue gabapentin at 300 mg twice daily DC plans to [facility] if she remains medically stable, so far blood cultures are negative and she is off of antibiotics -increase activity Diet Adult diet Dysphagia - Pureed DVT Prophylaxis [x] Lovenox, [] Heparin, [] SCDs, [] Ambulation [] Already on Anticoagulation GI Prophylaxis [] PPI, [] H2 Liana, [] Carafate, [] Diet/Tube Feeds Code Status DNR-CCA Disposition Patient requires continued admission due to congestive heart failure MD (more content not included)... [facility] 11-20-2024 Note PULMONOLOGY CONSULT PROGRESS NOTE 11/20/2024 Hospital LOS: LOS: 7 days PULMONARY FOLLOW UP FOR: Respiratory failure, ASSESSMENT AND PLAN: Acute hypoxic hypercapnic respiratory failure, Likely secondary to acute decompensated congestive heart failure which clinically has improved after diuresis ADHF H/o dementia. - Cardiology on board for management of CHF. - Initial suspicion for pneumonia, but more likely pulm vascular congestion on CXR, normal WBC count afebrile normal procalcitonin. Off antibiotics. - Refusing nocturnal PAP therapy, discontinued now - Pulmonary will sign off. Please call us back for further questions, or change in clinical condition. Interval History/Event Changes: No acute overnight events, remains on room air. Subjectively: Confused today, thinks she is at [facility]. In no acute distress, on room air. Allergies Allergies[1] Review of Systems A pertinent review of systems was performed and was otherwise non-contributory. Vitals- BP (!) 176/81 Pulse 85 Temp 36.1 ?C (97 ?F) (Temporal) Resp 16 Ht 5' 5 (1.651 m) Wt 210 lb (95.3 kg) SpO2 99% BMI 34.95 kg/m? Tmax: Temp (24hrs), Av.2 ?C (97.2 ?F), Min:36.1 ?C (97 ?F), Max:36.3 ?C (97.4 ?F) Hemodynamics: Cuff: Systolic (24hrs), Av , Min:127 , Max:176 /Diastolic (24hrs), Av, Min:62, Max:81 Cuff MAP:MAP (mmHg) Av.6 Min: 84 Max: 138 P: Pulse Av.3 Min: 65 Max: 85 Observed RR: Resp Av.5 Min: 16 Max: 19 Observed O2 sats: SpO2 Av.4 % Min: 91 % Max: 100 % Intake/Output Summary (Last 24 hours) at 11/20/2024 1310 Last data filed at 11/20/2024 1256 Gross per 24 hour Intake 60 ml Output -- Net 60 ml Physical exam- Physical Exam Constitutional: General: She is not in acute distress. HENT: Head: Normocephalic and atraumatic. Nose: Nose normal. No rhinorrhea. Eyes: General: No scleral icterus. Extraocular Movements: Extraocular movements intact. Conjunctiva/sclera: Conjunctivae normal. Cardiovascular: Rate and Rhythm: Normal rate and regular rhythm. Heart sounds: Normal heart sounds. No murmur heard. Pulmonary: Effort: Pulmonary effort is normal. No respiratory distress. Breath sounds: Normal breath sounds. No stridor. No wheezing, rhonchi or rales. Chest: Chest wall: No tenderness. Musculoskeletal: General: No swelling. Cervical back: Normal range of motion and neck supple. Skin: General: Skin is warm. Coloration: Skin is not jaundiced or pale. Findings: No rash. Neurological: General: No focal deficit present. Mental Status: She is alert. Mental status is at baseline. Psychiatric: Mood and Affect: Mood normal. Behavior: Behavior normal. Routine labs: Recent Labs 11/18/2453611/19/2422211/20/24 0309 WBC 12.2* 13.3* 12.8* HGB 12.7 13.3 14.3 HCT 39.1 39.8 43.7 PLT 231 248 279 Recent Labs 11/18/2437 11/19/2422211/20/24 0309 NA 144 138 138 K 2.9* 3.3* 3.6 CL 108* 106 106 CO2 23 20* 21* BUN 68* 59* 44* CREATININE 1.76* 1.60* 1.29* MG -- 1.8 -- No results for input(s): GLU in the last 72 hours. Other Laboratory - Imaging Studies: Reviewed and as per electronic record. CxR/CT images reviewed by me when available. Giovanny Espinal MD Physician Pulmonary, Critical Care and Sleep Medicine. 11/20/2024 [1] No Known Allergies [facility] 11-20-2024 Consult note Associated Order (s): INPATIENT CONSULT TO WOUND CARE PROVIDERS Images from the original note were not included. [facility] Wound Care CONSULT Note Carline Villarreal AGE: 78 y.o. GENDER: female : 1945 Subjective: HISTORY of PRESENT ILLNESS HPI Carline Villarreal is a 78 y.o. female who presents for a wound consult. HPI: Carline is a 78 y.o. female who presented to ED on 11/13/24 with chief complaint od SOB. Patient from SNF w/ SOB, reported 76% sp02 on room air when EMS first arrived. She was placed on BIPAP during transport to ED. Wound Care consulted for Pressure Injury Buttocks PAST MEDICAL HISTORY Medical History[1] PAST SURGICAL HISTORY Surgical History[2] FAMILY HISTORY Family History[3] SOCIAL HISTORY Social History[4] ALLERGIES Allergies[5] MEDICATIONS Medications Ordered Prior to Encounter[6] REVIEW OF SYSTEMS Pertinent items are noted in HPI. Objective: BP (!) 176/81 Pulse 85 Temp 36.1 C (97 F) (Temporal) Resp 16 Ht 1.651 m (5' 5) Wt 95.3 kg (210 lb) SpO2 99% BMI 34.95 kg/m PHYSICAL EXAM General appearance: in no apparent distress, well developed and well nourished, in no respiratory distress and acyanotic, and alert Skin: warm and dry Pulmonary: Normal effort, no respiratory distress, no cyanosis Bilateral buttocks: Scattered open areas with pink wounds beds that appear to be healing. No drainage noted. Madi wound with blanchable erythema, staining from prolonged pressure to area, fragile. 11/20/24 LABS CBC: Lab Results Component Value Date WBC 12.8 (H) 11/20/2024 HGB 14.3 11/20/2024 HCT 43.7 11/20/2024 MCV 97.5 11/20/2024 PLT 279 11/20/2024 BMP: Lab Results Component Value Date NA 138 11/20/2024 K 3.6 11/20/2024 CL 106 11/20/2024 CO2 21 (L) 11/20/2024 BUN 44 (H) 11/20/2024 CREATININE 1.29 (H) 11/20/2024 PT/INR: No results found for: PROTIME, INR Prealbumin: No results found for: PREALBUMIN Albumin:No components found for: LABALBU Sed Rate:No results found for: SEDRATE Micro: No components found for: BC Assessment/Plan: Nursing staff to perform dressing change: Bilateral buttocks: MASD (Bodily fluids) -cleanse with soap and water, apply ET mix TID and PRN, 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 Any questions or concerns please secure chat [facility] wound/ostomy. Thank you for the consult! I personally obtained the rucker and critical portions of the history and physical exam. I reviewed the labs, imaging studies, and electronic medical record. I reviewed the chart documentation and discussed the patient with treatment team members. I have edited the note to reflect my clinical findings and my assessment and plan. Please note, the time of this note does not reflect the time I saw this patient today, but the time of this documentaton. Portions of this note including HPI, ROS, impression/plan, and examination may have been copied forward from admission to today as to provide important historical information essential in contributing to medical decision making. Documentation has been reviewed and edited as necessary to support clinical decision making for today's visit and to reflect my own independent evaluation of this patient. Decision making for today's visit and to reflect my own independent evaluation of this patient. [1] Past Medical History: Diagnosis Date Diabetes mellitus (HCC) Hypertension Stroke (HCC) [2] History reviewed. No pertinent surgical history. [3] No family history on file. [4] Social History Tobacco Use Smoking status: Some Days Types: Cigarettes Substance Use Topics Alcohol use: Not Currently Drug use: Not Currently [5] No Known Allergies [6] No current facility-administered medications on file prior to encounter. Current Outpatient Medications on File Prior to Encounter Medication Sig Dispense Refill acetaminophen (Tylenol) 325 MG tablet Take 650 mg by mouth every 6 hours as needed for mild pain (1-3), moderate pain (4-6) or fever. aluminum-magnesium hydroxide-simethicone (Maalox MAX) 400-400-40 MG/5ML suspension Take 10 mL by mouth every 4 hours as needed for indigestion or heartburn. atorvastatin (Lipitor) 40 MG tablet Take 40 mg by mouth daily. bisacodyl (Dulcolax) 5 MG EC tablet Take 5 mg by mouth Daily as needed for constipation. Do not crush, chew, or split. bisacodyl (Dulcolax) 5 MG EC tablet Take 5 mg by mouth Daily as needed for constipation. Do not crush, chew, or split. busPIRone (Buspar) 5 MG tablet Take 2.5 mg by mouth 2 times daily. cloNIDine (Catapres) 0.2 MG tablet Take 0.2 mg by mouth 2 times daily. clopidogrel (Plavix) 75 MG tablet Take 75 mg by mouth daily. DULoxetine (Cymbalta) [address] capsule Take 30 mg by mouth daily. Do not crush or chew. escitalopram (Lexapro) 10 MG tablet Take 10 mg by mouth daily. famotidine (Pepcid) 20 MG tablet Take 20 mg by mouth daily. gabapentin (Neurontin) 300 MG capsule Take 300 mg by mouth 2 times daily. hydrALAZINE (Apresoline) 25 MG tablet Take 25 mg by mouth every 8 hours as needed (systolic over 160). ibuprofen 200 MG tablet Take 400 mg by mouth in the morning and 400 mg at noon and 400 mg in the evening and 400 mg before bedtime. Give adequate fluid and food with medication to minimize GI irritation . levothyroxine (Synthroid, Levoxyl) 50 MCG tablet Take 50 mcg by mouth every morning (before breakfast). lisinopril 5 MG tablet Take 5 mg by mouth daily. magnesium hydroxide (Milk of Magnesia) 400 MG/5ML suspension Take 30 mL by mouth Daily as needed for constipation. If no bm in 3 days melatonin 1 MG tablet Take 3 mg by mouth Nightly. metoprolol tartrate (Lopressor) 50 MG tablet Take 50 mg by mouth 2 times daily. Hold for SBP<100, HR <55 oxyCODONE-acetaminophen (Percocet) 5-325 MG tablet Take 1 tablet by mouth every 8 hours as needed (for pain). polyethylene glycol, PEG, 3350 (Miralax) 17 g packet Take 17 g by mouth Once. SUMAtriptan (Imitrex) 50 MG tablet Take 50 mg by mouth every 6 hours as needed for migraine. traMADol (Ultram) 50 MG tablet Take 50 mg by mouth every 6 hours as needed for severe pain (7-10) or moderate pain (4-6). Monitor signs and symptoms of delirium, over sedation, change in mental status and reduced respirations [DISCONTINUED] hydroCHLOROthiazide (HYDRODiuril) 50 MG tablet Take 50 mg by mouth daily. Cosigned by Mac Barragan DO at 11/20/2024 4:57 PM EDT Associated Order(s): IP CONSULT TO GERIATRICS [facility] Inpatient Consult Service Admission Date: 11/13/2024 Admission Status: INPATIENT Chief Complaint: fall Reason for Appointment Geriatrics consulted for confusion restless with underlying dementia with prolonged qtc Assessment & Plan Principal Problem: Acute exacerbation of chronic heart failure (HCC) Dementia --Lives in [facility] facility --History of stroke with worsening cognitive decline. --MRI 12/17/23: 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 Chronic small vessel ischemic change. --Check TSH and B12 --No baseline behaviors --Try to avoid anticholinergic medications At risk for delirium --Risk factors: pain, advanced age, sensory impairments, acute illness, history of delirium, and baseline cognitive deficits --Reported to have restlessness yesterday. Better today. --Encourage PO intake, time up in chair, family visits, and sleep hygiene --If agitated, assess for and consider treating for pain --QTc= 508 ms --No antipsychotic due to QTc>500; if patient is danger to self/others/treatment consider low dose benzo use (Lorazepam 0.25mg PO every 8 hours as needed for agitation). Recommend repeating EKG. --Continue scheduled melatonin at HS --Monitor for constipation/urinary retention - last BM 11/14 --Possible medication contributions: none Debility --Contributing factors include stroke, Dementia, Chronic pain, heart failure --nathan lift and use of wheelchair at baseline --PT and OT eval pending. --Anticipate return to [facility] Bipolar Disorder Anxiety --takes Lexapro 5mg daily at facility - was being weaned there. Will hold off restarting. --Continue Duloxetine 30mg daily --Continue Buspar 2.5mg BID Chronic pain --Takes Oxycodone-Acetaminophen 5/325 mg 1 tab every 8 hours as needed at facility. Takes 1 tab every few days. Currently ordered. --Home dose of Gabapentin 600mg BID. Currently ordered 300mg BID. Due to EDWIGE, will continue at this dose with goal to titrate back to home dose while monitoring renal function. Monitor for withdrawal. I spent total time of 70 minutes face to face with the patient and/or family discussing the diagnosis and importance of compliance with the treatment plan as well as documenting on the day of the visit. In addition, that total time includes the following: -Reviewing previous notes, -Reviewing labs, -Obtaining and/or reviewing separately obtained history, -Ordering prescription medications, tests and procedures, -Communicating results to the patient/family/caregiver, -Counseling/educating the patient/family/caregiver, -Documenting clinical information in the patients electronic record, and -Performing a medically appropriate exam and/or evaluation Subjective: HPI 78 y.o. year-old female with PMH of DM, stroke with left sided weakness, HTN, CKD, hypothyroidism, Bipolar disorder, Gout, Migraines, Dementia presented to [facility] from nursing facility on 11/13/24 with complaints of shortness of breath, cough, and hypoxia. Admitted with pneumonia of both lower lobes, CHF, EDWIGE. Concern for undiagnosed GABRIELE/OHS. Pulmonology consulted - acute hypoxic and hypercapnic respiratory failure likely due to acute decompensated congestive heart failure. ECHO 11/13 EF 35%, Grade II diastolic dysfunction. Quick Cognitive Screen (QCS): Positive QCS Intervention Patient Safety: Maintain visualization, Curtain Open / Maintain privacy Patient with Constant Observation: Monitored Room stone dresser completed: Pt deemed to not be an elopement risk Nursing Delirium Screen (Nu-Desc): Nursing Delirium Symptom Checklist Total Score: 1 Conversation with patient: -Reports breathing is ok. States she has pain in both knees and left hip. Slept ok - says she was told last night go to sleep. She knows she is in the hospital and states she is here due to a fall. Not able to state where she lives. Conversation with caregiver: Rosas son. -Lives in [facility]. Difficult to obtain history from her due to Dementia. If you ask if she has pain she will say yes. -Frequent UTIs -Stroke 4 years ago affected left side -Mood is always good. -Does not usually knows where she is. -No recent falls. Nursing reports no behaviors. No overnight issues. LTC nursing - pleasant. Incontinent of bowel and bladder. Eats well. Sleeps well. Takes Percocet PRN - takes 1 tab every few days. Current Buspar dose is dose decrease. Previously on 5mg BID. Lexapro also decreased. PDMP reviewed Gabapentin 600mg for BID dosing since Aug 2024. On 300 mg BID prior to this. Advance Care Planning Healthcare Power of Employee Benefits Coordinator: Yes, Rosas son Code Status: DNR-CCA Allergies[1] Current Medications[2] Medical History[3] Surgical History[4] Social History Tobacco Use Smoking status: Some Days Types: Cigarettes Smokeless tobacco: Not on file Substance Use Topics Alcohol use: Not Currently Social History Social History Narrative Not on file Family History Family History[5] No family status information on file. Review of Systems Unable to perform ROS: Dementia Respiratory: Positive for cough. Musculoskeletal: Positive for arthralgias. Neurological: Positive for weakness. Psychiatric/Behavioral: Positive for confusion. Negative for sleep disturbance. Functional Status Prior to Admission: (I: Independent, A: Assisted, D: Dependent) ADLs I A D Notes Bathing [] [x] [] Dressing [] [x] [] Toileting [] [] [] Transfers [] [] [x] Nathan Feeding [x] [] [] Ambulation [] [] [] Assistive devices: wheelchair IADLs I A D Telephone [] [] [] Transportation [] [] [x] Shopping [] [] [x] Meal prep [] [] [x] Housework [] [] [x] Medications [] [] [x] Finances [] [] [x] Objective: BP (!) 170/97 (BP Location: Right arm, Patient Position: Lying) Pulse 83 Temp 36.1 C (96.9 F) (Temporal) Resp 20 Ht 5' 5 (1.651 m) Wt 210 lb (95.3 kg) SpO2 95% BMI 34.95 kg/m Intake/Output Summary (Last 24 hours) at 11/15/2024 0807 Last data filed at 11/15/2024 0620 Gross per 24 hour Intake 240 ml Output 2 ml Net 238 ml Wt Readings from Last 3 Encounters: 11/14/24 210 lb (95.3 kg) 12/17/23 205 lb (93 kg) Physical Exam Vitals reviewed. Constitutional: General: She is not in acute distress. HENT: Head: Normocephalic and atraumatic. Cardiovascular: Rate and Rhythm: Normal rate and regular rhythm. Pulmonary: Effort: Pulmonary effort is normal. Breath sounds: Normal breath sounds. Musculoskeletal: Right lower leg: No edema. Left lower leg: No edema. Neurological: Mental Status: She is alert. Motor: Weakness present. Comments: Left sided weakness Psychiatric: Mood and Affect: Mood normal. Behavior: Behavior is cooperative. Cognition and Memory: Cognition is impaired. Memory is impaired. Labs and Imaging: Recent Results (from the past 24 hours) POCT glucose meter Collection Time: 11/14/24 8:21 AM Result Value Ref Range Glucose 175 (H) 70 - 100 mg/dL Vancomycin, AUC Timed Dosing Collection Time: 11/14/24 8:41 AM Result Value Ref Range VANCOMYCIN, AUC 16.8 ug/mL ECG 12 lead Collection Time: 11/14/24 9:22 AM Result Value Ref Range Heart Rate 104 bpm QRSD Interval 92 ms QT Interval 406 ms QTC Interval 508 ms P [place] 43 degrees QRS [place] 14 degrees T Wave [place] 201 degrees LA Interval 190 ms POCT glucose meter Collection Time: 11/14/24 11:43 AM Result Value Ref Range Glucose 231 (H) 70 - 100 mg/dL Transthoracic echocardiogram (TTE) complete with contrast, bubble, strain, and 3D PRN Collection Time: 11/14/24 2:10 PM Result Value Ref Range IVSd 1.2 (A) 0.6 - 0.9 cm LVIDd 4.1 3.9 - 5.3 cm LVIDs 2.6 cm LVOT Diameter 2.1 cm LVPWd 1.2 (A) 0.6 - 0.9 cm EF BP 35 (A) 55 - 100 % LV Ejection Fraction A2C 39 % LV Ejection Fraction A4C 28 % LV EDV A2C 111 mL LV EDV A4C 94 mL LV EDV BP 104 56 - 104 mL LV ESV A2C 68 mL LV ESV A4C 67 mL LV ESV BP 68 (A) 19 - 49 mL LVOT Cardiac Output 6.6 liter/minute LVOT Peak Gradient 4 mmHg LVOT Mean Gradient 2 mmHg LVOT SV 71.0 ml LVOT Peak Velocity 0.9 m/s LVOT VTI 20.5 cm RV Mid Dimension 2.5 cm RV Basal Dimension 3.4 cm RV Free Wall Peak S' 7 cm/s LA Diameter 4.1 cm LA Volume A/L 104 mL LA Volume 2C 102 (A) 22 - 52 mL LA Volume 4C 94 (A) 22 - 52 mL LA Volume BP 98 (A) 22 - 52 mL RA Area 4C 32.2 mL RA Area 4C 30.6 mL AR PHT 389.9 ms AR Max Velocity PISA 4.0 m/s MV A Velocity 0.53 m/s MV E Wave Deceleration Time 165.6 ms MV E Velocity 0.52 m/s TV Nyquist Velocity 36 cm/s TAPSE 1.8 >=1.7 cm TV EROA 0.4 cm2 TR Peak Velocity PISA 2.2 m/s TR VTI 66.3 cm TR Peak Gradient 45 mmHg TR Max Velocity 3.36 m/s Aortic Arch 3.6 cm Ascending Aorta 3.6 cm IVC Diameter 2.3 cm Aortic Root 3.4 cm Fractional Shortening 2D 37 28 - 44 % LV ESV Index BP 34 mL/m2 LV EDV Index BP 51 mL/m2 LV ESV Index A4C 33 mL/m2 LV EDV Index A4C 47 mL/m2 LV ESV Index A2C 34 mL/m2 LV EDV Index A2C 55 mL/m2 LVIDd Index 2.03 cm/m2 LVIDs Index 1.29 cm/m2 LV RWT Ratio 0.59 LV Mass 2D 171.7 (A) 67 - 162 g LV Mass 2D Index 85.0 43 - 95 g/m2 MV E/A 0.98 LA Volume Index BP 49 (A) 16 - 34 ml/m2 LA Volume Index A/L 51 16 - 34 mL/m2 LVOT Stroke Volume Index 35.1 mL/m2 LVOT Area 3.5 cm2 LA Volume Index 2C 50 (A) 16 - 34 mL/m2 LA Volume Index 4C 47 (A) 16 - 34 mL/m2 LA Size Index 2.03 cm/m2 LA/AO Root Ratio 1.21 Ao Root Index 1.68 cm/m2 Ascending Aorta Index 1.78 cm/m2 Est. RA Pressure 8 mmHg Aortic Sinus Valsalva 3.4 cm Aortic Sinus Valsalva Index 1.68 cm/m2 RVSP 53 mmHg Sinotubular Junction 3.1 cm POCT glucose meter Collection Time: 11/14/24 5:02 PM Result Value Ref Range Glucose 171 (H) 70 - 100 mg/dL POCT glucose meter Collection Time: 11/14/24 8:58 PM Result Value Ref Range Glucose 165 (H) 70 - 100 mg/dL CBC auto differential Collection Time: 11/15/24 5:50 AM Result Value Ref Range Auto WBC 15.0 (H) 3.6 - 10.7 10*3/uL RBC 4.42 3.80 - 5.20 10*6/uL Hemoglobin 13.8 11.7 - 16.0 g/dL Hematocrit 40.9 35.0 - 47.0 % MCV 92.5 77.0 - 99.0 fL MCH 31.2 26.0 - 34.0 pg MCHC 33.7 30.5 - 36.0 % RDW 14.1 11.5 - 15.0 % Platelets 308 140 - 440 10*3/uL MPV 10.7 9.0 - 12.7 fL nRBC 0.0 0.0 - 2.0 /100 WBCs Neutrophils Relative 73.8 38.0 - 82.0 % Lymphocytes Relative 16.2 15.0 - 45.0 % Monocytes Relative 5.7 5.0 - 13.0 % Eosinophils Relative 3.5 0.0 - 6.0 % Basophils Relative 0.5 0.0 - 2.0 % Immature Grans % 0.3 0.0 - 2.0 % Neutrophils Absolute 11.1 (H) 1.8 - 7.5 10*3/uL Lymphocytes Absolute 2.4 1.0 - 4.3 10*3/uL Monocytes Absolute 0.9 0.0 - 0.9 10*3/uL Eosinophils Absolute 0.5 0.0 - 0.5 10*3/uL Basophils Absolute 0.1 0.0 - 0.2 10*3/uL Immature Grans Absolute 0.0 <0.1 10*3/uL Basic metabolic panel Collection Time: 11/15/24 5:50 AM Result Value Ref Range SODIUM 144 136 - 145 mmol/L POTASSIUM 3.3 (L) 3.5 - 5.1 mmol/L CHLORIDE 107 98 - 107 mmol/L CARBON DIOXIDE 22 (L) 23 - 31 mmol/L UREA NITROGEN 40 (H) 9 - 23 mg/dL CREATININE 1.56 (H) 0.57 - 1.11 mg/dL GLUCOSE 169 (H) 82 - 115 mg/dL CALCIUM 9.2 8.8 - 10.0 mg/dL ANION GAP 15 (H) 3 - 13 mmol/L eGFR 33.9 (L) >60.0 mL/min/1.73m*2 Magnesium Collection Time: 11/15/24 5:50 AM Result Value Ref Range MAGNESIUM 1.4 (L) 1.6 - 2.6 mg/dL POCT glucose meter Collection Time: 11/15/24 7:51 AM Result Value Ref Range Glucose 233 (H) 70 - 100 mg/dL No results found for: TSH No components found for: B12 No results found for: VITD25 Reviewed: active problem list, medication list, allergies, social history, notes from last encounter, notes from last several encounters, lab results, imaging Follow-up: will follow with you AGGIE Okeefe CNP 11/15/24 8:07 AM [1] No Known Allergies [2] Current Facility-Administered Medications: acetaminophen (Tylenol) tablet 650 mg, 650 mg, Oral, q6h PRN, 650 mg at 11/15/24 0755 OR acetaminophen (Tylenol) suppository 650 mg, 650 mg, Rectal, q6h PRN, Dominguez Franz MD aluminum & magnesium hydroxide-simethicone (Mylanta) 200-200-20 MG/5ML oral suspension 10 mL, 10 mL, Oral, q4h PRN, Dominguez Franz MD [id number] (Excedrin Migraine) 250-250-65 MG per tablet 2 tablet, 2 tablet, Oral, q8h PRN, Dominguez Franz MD, 2 tablet at 11/13/241837 busPIRone (Buspar) tablet 2.5 mg, 2.5 mg, Oral, BID, Dominguez Franz MD, 2.5 mg at 11/14/242038 dextrose 5 % infusion, 100 mL/hr, IntraVENous, PRN, Dominguez Franz MD dextrose 50 % solution 12.5 g, 12.5 g, IntraVENous, PRN, Dominguez Franz MD DULoxetine (Cymbalta) DR capsule 30 mg, 30 mg, Oral, Daily, Dominguez Franz MD, 30 mg at 11/14/24822 enoxaparin (Lovenox) syringe 40 mg, 40 mg, SubCUTAneous, Daily, Dominguez Franz MD, 40 mg at 11/14/242038 famotidine (Pepcid) tablet 20 mg, 20 mg, Oral, Daily, Dominguez Franz MD, 20 mg at 11/14/2422 gabapentin (Neurontin) capsule 300 mg, 300 mg, Oral, BID, Dominguez Franz MD, 300 mg at 11/14/242037 glucagon (human recombinant) injection 1 mg, 1 mg, IntraMUSCular, PRN, Dominguez Franz MD glucose oral gel 15 g, 15 g, Oral, PRN, Dominguez Franz MD hydrALAZINE (Apresoline) tablet 25 mg, 25 mg, Oral, q8h PRN, Dominguez Franz MD, 25 mg at 11/14/242038 Insulin Lispro (Humalog) injection 0-12 Units, 0-12 Units, SubCUTAneous, TID WC, 1 Units at 11/14/241811 AND Insulin Lispro (Humalog) injection 0-12 Units, 0-12 Units, SubCUTAneous, Nightly, Dominguez Franz MD, 2 Units at 11/14/242131 ipratropium-albuterol (Duo-Neb) 0.5-2.5 mg/3 mL nebulizer solution 3 mL, 3 mL, Nebulization, 4x daily PRN, Dominguez Franz MD labetalol (Normodyne,Trandate) injection 10 mg, 10 mg, IntraVENous, q6h PRN, Gordo Nogueira MD, 10 mg at 11/14/24 2311 levothyroxine (Synthroid, Levoxyl) tablet 50 mcg, 50 mcg, Oral, qAM AC, Dominguez Franz MD, 50 mcg at 11/15/24 0543 lidocaine (Xylocaine) 2 % mouth solution 15 mL, 15 mL, Mouth/Throat, q3h PRN, Dominguez Franz MD magnesium hydroxide (Milk of Magnesia) 400 MG/5ML suspension 30 mL, 30 mL, Oral, Daily PRN, Dominguez Franz MD melatonin tablet 3 mg, 3 mg, Oral, Nightly, Dominguez Franz MD, 3 mg at 11/14/242037 metoprolol tartrate (Lopressor) tablet 50 mg, 50 mg, Oral, BID, Dominguez Franz MD, 50 mg at 11/14/242038 naloxone (Narcan) injection 0.4 mg, 0.4 mg, IntraVENous, q5 min PRN, Dominguez Franz MD ondansetron ODT (Zofran-ODT) disintegrating tablet 4 mg, 4 mg, Oral, q8h PRN OR ondansetron (Zofran) injection 4 mg, 4 mg, IntraVENous, q6h PRN, Dominguez Franz MD oxyCODONE-acetaminophen (Percocet) 5-325 MG per tablet 1 tablet, 1 tablet, Oral, q8h PRN, Dominguez Franz MD, 1 tablet at 11/14/24 1637 phenol (Chloraseptic) 1.4 % mouth/throat spray 1 spray, 1 spray, Mouth/Throat, q2h PRN, Dominguez Franz MD polyethylene glycol (PEG) 3350 (Miralax) packet 17 g, 17 g, Oral, Daily PRN, Dominguez Franz MD spironolactone (Aldactone) tablet 25 mg, 25 mg, Oral, q48h, Hammad Hinton MD, 25 mg at 11/14/24 1108 SUMAtriptan (Imitrex) tablet 50 mg, 50 mg, Oral, q6h PRN, Dominguez Franz MD [3] Past Medical History: Diagnosis Date Diabetes mellitus (HCC) Hypertension Stroke (HCC) [4] No past surgical history on file. [5] No family history on file. Vancomycin therapy has been discontinued by Dr. Franz on 11-14-24. Thank you for the consult. Pharmacy signing off for vancomycin dosing. Leandra Cordero RP, Date: 11/14/24 Time: 11:22 AM Associated Order(s): IP CONSULT TO PALLIATIVE CARE Images from the original note were not included. Palliative Care Initial Consult Chief Complaint: Carline Villarreal is a 78 y.o. female with chief complaint of SOB Palliative care consulted for goals of care Palliative Care is actively following. Assessment/Plan Goals of care Carline Villarreal lacks capacity for medical decision-making due to dementia and encephalopathy. -legal surrogate decision maker is son, Rosas Villarreal (Phone: [phone]) - met with patient this afternoon, patient was restless, was trying to get out of bed - unable to have meaningful conversation with patient today - called and left HIPAA complaint message for ethan Gautam - patient already has DNRCCA established - discussed with primary team attending Dr. Franz, bedside RN - will continue to have ongoing goals of care conversations with patient, family Acute hypoxic/hypercapnic respiratory failure - per Dr. Knapp's notes from 11/13 suspect presentation largely related to cardiogenic pulmonary edema with underlying undiagnosed GABRIELE/OHS, initial VBG concerning for acute CO2 retention, r Acute on chronic HFpEF - patient volume overloaded, on lasix 40 mg IV BID - cardiology on case, recommending palliative care consult Atrial Fibrillation - nonsustained, 2 episodes, asymptomatic - patient is not a candidate for OAC - on metoprolol 50 mg po BID - per cardiology notes she is not a candidate for invasive evaluation and management due to significant underlying dementia/debility Dementia - Geriatrics has been consulted - patient restless when seen, notified Dr. Franz primary team attending Stroke with left hemiparesis - PT, OT has been consulted Palliative Care Encounter -Code Status: DNR-CCA - will continue to follow for ongoing monitoring of progression of Dyspnea, Pain, and Constipation as well as for appropriateness for hospice care due to Respiratory Failure and Dementia - will continue to evaluate test results related to Respiratory Failure and Dementia, medication effectiveness for Dyspnea, Pain, and Constipation, response to treatment of Respiratory Failure, Stroke, and Dementia PC Time Stamp: Total of 85 minutes spent on this encounter including Chart review, Patient visit and exam, Documentation in EHR, Care coordination, and Communicating with primary attending or other consultants. Discharge planning: Not ready for discharge due to ongoing goals of care discussion Patient meets criteria for general inpatient hospice care: No Palliative Care IDT members involved: None Discussed the plan of care with the other interdisciplinary team (IDT) members of the Palliative Care and Hospice teams and Primary Attending and Floor Nurse. Subjective: Subjective/Events Carline Villarreal is a 78 y.o. female from SNF with PMHx of HFpEF, DM 2, Stroke with left hemiparesis, hypertension who was admitted to [facility] on 11/13 for SOB. Patient reportedly had saturation of 76 % on RA at SNF. When EMS first arrived, she was placed on BIPAP during transport to ED. Patient was started on IV antibiotics for pneumonia. Palliative care consulted for goals of care. Pain Assessment Unable due to Encephalopathy Palliative Care Assessments: Goals of care: To Be Determined Advanced Directives: Health Care Power of Employee Benefits Coordinator, DNR Functional Assessment: PPS 30% bedbound; can't do any work/extensive disease; total care; reduced intake; full or drowsy or confusion Prognosis: depends upon goals of care Spiritual Assessment: No spiritual distress identified Bereavement and Grief: To Be Determined PDMP/OARRS Reviewed: No Report Available Social history: Marital status: single Children: Unknown Living status: group home Work history: Retired status: No Shinto david: Adventist ROS: See palliative care ROS/ESAS below; Detail ROS unable to be obtained due to patient's mental status Neavitt Symptom Assessment Score Ne[place]itt Score Pain Score (if non-verbal, add .FLACC below) 0 Tiredness Score 6 Nausea Score 0 Depression Score 0 Anxiety Score 6 Drowsiness Score 3 Anorexia Score (0= eating well, 10= not eating) 8 Wellbeing Score (10= worst sense of well-being) 8 Constipation 0 Dyspnea Score (0= no shortness of breath) 0 Family Meeting: Participants: none held Family meeting was held to discuss:N/A Medical History[1] Surgical History[2] Family History[3] Unable to obtain family history due to altered mental status Allergies[4] Objective: BP 134/82 (BP Location: Right arm, Patient Position: Lying) Pulse 95 Temp 36.5 C (97.7 F) (Temporal) Resp 17 Ht 5' 5 (1.651 m) Wt 210 lb (95.3 kg) SpO2 98% BMI 34.95 kg/m Physical Exam Constitutional: Appearance: She is ill-appearing. HENT: Head: Normocephalic and atraumatic. Right Ear: External ear normal. Left Ear: External ear normal. Nose: Nose normal. Mouth/Throat: Mouth: Mucous membranes are moist. Eyes: General: No scleral icterus. Right eye: No discharge. Left eye: No discharge. Conjunctiva/sclera: Conjunctivae normal. Pupils: Pupils are equal, round, and reactive to light. Cardiovascular: Rate and Rhythm: Regular rhythm. Tachycardia present. Pulses: Normal pulses. Heart sounds: Normal heart sounds. No murmur heard. Pulmonary: Effort: Pulmonary effort is normal. Breath sounds: No stridor. No wheezing. Comments: Bilateral basal crackles present Abdominal: General: Bowel sounds are normal. There is no distension. Palpations: Abdomen is soft. Musculoskeletal: General: No swelling. Cervical back: Normal range of motion and neck supple. Right lower leg: No edema. Left lower leg: No edema. Skin: General: Skin is warm. Coloration: Skin is not jaundiced. Neurological: Motor: Weakness present. Comments: AxOx1 Psychiatric: Comments: Restless Medication information: 24-hour PRN meds received: Reviewed Results/Verification of Data Review Objective data reviewed (must include dates reviewed for labs, imaging reports and other specialty notes): - Labs, imaging, MAR, Vitals, OARRS reviewed 11/14/24 Data in Support of Terminal Illness: Is patient hospice appropriate? TBD Transition Note Initiated: yes Vickie Parra MD [1] Past Medical History: Diagnosis Date Diabetes mellitus (HCC) Hypertension Stroke (HCC) [2] No past surgical history on file. [3] No family history on file. [4] No Known Allergies Associated Order(s): IP CONSULT TO CARDIOLOGY [facility] [place] [facility] Consult Note Reason for Consult/Chief Complaint: Heart failure, elevated troponin Consulting MD: Dr. Franz History of Present Illness: Carline Villarreal is a 78 y.o. female with significant dementia baseline AO x1, lives in SNF, admitted for shortness of breath secondary to heart failure. Started on lasix diuresis and today she reports significant improvement in her breathing, on room air. ECG sinus rhythm. Telemetry sinus rhythm, with nonsustained episodes of AF asymptomatic. CXR congestion. Troponin 12-->124. NT pro BNP 6596. She reports no chest pain, SOB is much less, she reports close to baseline. No palpitations, dizziness or syncope. TTE last year had normal LVEF 65%, moderate AR, mildly dilated aorta and trivial pericardial effusion. Past Medical History: Medical History[1] Past Surgical History: Surgical History[2] Family History: Family History[3] Social History: Social History[4] Medications: Scheduled Meds[5] Allergies: Patient has no known allergies. Reviewed Review of Systems: All other systems were reviewed and are negative other than as noted in the HPI. Physical Examination: Vitals: Blood pressure 134/82, pulse 95, temperature 36.5 C (97.7 F), temperature source Temporal, resp. rate 17, height 5' 5 (1.651 m), weight 210 lb (95.3 kg), SpO2 98%. Intake/Output Summary (Last 24 hours) at 11/14/2024 0916 Last data filed at 11/14/2024 0535 Gross per 24 hour Intake 100 ml Output 601 ml Net -501 ml Wt Readings from Last 3 Encounters: 11/14/24 210 lb (95.3 kg) 12/17/23 205 lb (93 kg) AO x 1 Neck: no JVD. Respiratory: Lungs are clear. No rales or wheezes. Respiratory effort is normal and symmetrical bilaterally; Good air movement bilaterally. Heart: RRR; Normal S1 and S2. no murmur; No rub; no gallop. Extremities/Skin: no LE edema; Skin warm to touch and well perfused Laboratory Tests: Results from last 7 days Lab Units 11/14/24 0044 11/13/24 1532 11/13/24 1056 WBC AUTO 10*3/uL 10.5 -- 10.5 HEMOGLOBIN g/dL 13.9 -- 14.0 HEMOGLOBIN BG g/dl -- 14.7 14.5 HEMATOCRIT % 40.5 -- 42.0 MCV fL 92.3 -- 95.0 PLATELETS 10*3/uL 282 -- 261 Lab Results Component Value Date GLUCOSE 248 (H) 11/14/2024 CALCIUM 9.6 11/14/2024 NA 139 11/14/2024 K 3.6 11/14/2024 CO2 21 (L) 11/14/2024 CL 105 11/14/2024 BUN 32 (H) 11/14/2024 CREATININE 1.37 (H) 11/14/2024 Lab Results Component Value Date HGBA1C 5.0 12/17/2023 No results found for: TSH Lab Results Component Value Date CHOL 114 12/17/2023 Lab Results Component Value Date HDL 38 (L) 12/17/2023 Lab Results Component Value Date LDLCALC 58 12/17/2023 Lab Results Component Value Date TRIG 92 12/17/2023 Lab Results Component Value Date TROPONINI <0.012 12/16/2023 Assessment/Plan HFpEF: perfused, volume overloaded with uncontrolled HTN. -continue lasix 40 mg IV bid today, switch to po hydrochlorothiazide 25 mg daily tomorrow -monitor I/O, BMP electrolytes -start spironolactone 25 mg daily -stop clonidine and avoid CCB HTN: uncontrolled -continue with lasix diuresis and switch to PO hydrochlorothiazide 25 mg daily tomorrow -start spironolactone 25 mg daily AF: nonsustained, 2 episodes, asymptomatic. Not a candidate for OAC. -continue rate control with metoprolol 50 mg bid, can be increased to 100 mg bid if needed for rate control if more sustained tachycardia is noticed Recommend conservative management of above, she is not a candidate for invasive evaluation and management due to significant underlying dementia/debility. Consider palliative assessment. I stopped atorvastatin to limit polypharmacy. Hammad Hinton MD, [facility], [facility] DATE of SERVICE: 11/14/2024 [1] Past Medical History: Diagnosis Date Diabetes mellitus (HCC) Hypertension Stroke (HCC) [2] No past surgical history on file. [3] No family history on file. [4] Social History Tobacco Use Smoking status: Some Days Types: Cigarettes Substance Use Topics Alcohol use: Not Currently Drug use: Not Currently [5] atorvastatin, 40 mg, Oral, Nightly busPIRone, 2.5 mg, Oral, BID cloNIDine, 0.2 mg, Oral, TID DULoxetine, 30 mg, Oral, Daily enoxaparin, 40 mg, SubCUTAneous, Daily famotidine, 20 mg, Oral, Daily gabapentin, 300 mg, Oral, BID insulin lispro, 0-12 Units, SubCUTAneous, TID WC And insulin lispro, 0-12 Units, SubCUTAneous, Nightly levothyroxine, 50 mcg, Oral, qAM AC melatonin, 3 mg, Oral, Nightly melatonin, 3 mg, Oral, Nightly metoprolol tartrate, 50 mg, Oral, BID piperacillin-tazobactam, 4,500 mg, IntraVENous, q6h vancomycin, 1,000 mg, IntraVENous, q24h Images from the original note were not included. [facility], Pulmonary Medicine [address] [place] [id number] Patient - Carline Villarreal [facility] # - [id number] - 1945 Date of Admission - 11/13/2024 10:39 AM Date of evaluation - 11/14/2024 Room - [facility] Hospital Day - 1 Consulting - Dominguez Franz MD Primary Care Physician - Evi Guevara [facility] Problem List Problem List[1] Reason for Consult Hypoxic hypercapnic respiratory failure congestive heart failure probable OHS History of Present Illness Carline Villarreal is a 78 y.o. female admitted for Shortness of breath noted to be in acute hypoxic hypercapnic respiratory failure decompensated congestive heart failure Patient does have a history of dementia as per chart group home resident, diabetes mellitus hypertension stroke Admitted with above complaint Initial VBG did show pH 7.229 pCO2 of 55 pO2 of 32 Patient received IV Lasix diuresed well placed on NIV Follow-up VBG showed pH 7.74 pCO2 of 30 and PO2 of 47 EKG showed T inversion ST ST depression elevated troponin This morning apparently has episode of tachyarrhythmia as per cardiology atrial fibrillation Her saturation was 97 percentile feeling much better this morning however she is not a good historian Currently she was on room air saturation was 97 percentile Never smoked Not on PAP therapy at home Apparently came from [facility] years ago Chest x-ray reviewed interpreted by me Vascular congestion with a small bilateral pleural effusion Medical History Past Medical History Medical History[2] Reviewed Hypertension diabetes mellitus Hypothyroidism Past Surgical History Surgical History[3] Reviewed Social History Social History Socioeconomic History Marital status: Spouse name: Not on file Number of children: Not on file Years of education: Not on file Highest education level: Not on file Occupational History Not on file Tobacco Use Smoking status: Some Days Types: Cigarettes Smokeless tobacco: Not on file Substance and Sexual Activity Alcohol use: Not Currently Drug use: Not Currently Sexual activity: Not on file Other Topics Concern Not on file Social History Narrative Not on file Social Drivers of Health Financial Resource Strain: Not on file Food Insecurity: Patient Unable To Answer (12/16/2023) Hunger Vital Sign Worried About Running Out of Food in the Last Year: Patient unable to answer Ran Out of Food in the Last Year: Patient unable to answer Transportation Needs: Patient Unable To Answer (12/16/2023) PRAPARE - Transportation Lack of Transportation (Medical): Patient unable to answer Lack of Transportation (Non-Medical): Patient unable to answer Physical Activity: Not on file Stress: Not on file Social Connections: Not on file Intimate Partner Violence: Patient Unable To Answer (12/16/2023) Humiliation, Afraid, Rape, and Kick questionnaire Fear of Current or Ex-Partner: Patient unable to answer Emotionally Abused: Patient unable to answer Physically Abused: Patient unable to answer Sexually Abused: Patient unable to answer Housing Stability: Patient Unable To Answer (12/16/2023) Housing Stability Vital Sign Unable to Pay for Housing in the Last Year: Patient unable to answer Number of Places Lived in the Last Year: 1 Unstable Housing in the Last Year: Patient unable to answer Family History Family History[4] Reviewed Immunization History Reviewed Medications Current Medications Scheduled Meds[5] PRN Mediations PRN Meds[6] IV Drips/Infusions Continuous Meds[7] Home Medications Current Outpatient Medications Medication Instructions acetaminophen (TYLENOL) 650 mg, Oral, Every 6 hours PRN aluminum-magnesium hydroxide-simethicone (Maalox MAX) 400-400-40 MG/5ML suspension 10 mL, Oral, Every 4 hours PRN atorvastatin (LIPITOR) 40 mg, Oral, Daily bisacodyl (DULCOLAX) 5 mg, Oral, Daily PRN, Do not crush, chew, or split. bisacodyl (DULCOLAX) 5 mg, Oral, Daily PRN, Do not crush, chew, or split. busPIRone (BUSPAR) 2.5 mg, Oral, 2 times daily cloNIDine (CATAPRES) 0.2 mg, Oral, 2 times daily clopidogrel (PLAVIX) 75 mg, Oral, Daily DULoxetine (CYMBALTA) 30 mg, Oral, Daily, Do not crush or chew. escitalopram (LEXAPRO) 10 mg, Oral, Daily famotidine (PEPCID) 20 mg, Oral, Daily gabapentin (NEURONTIN) 300 mg, Oral, 2 times daily hydrALAZINE (APRESOLINE) 25 mg, Oral, Every 8 hours PRN ibuprofen 400 mg, Oral, Every 6 hours, Give adequate fluid and food with medication to minimize GI irritation levothyroxine (SYNTHROID, LEVOXYL) 50 mcg, Oral, Daily before breakfast lisinopril 5 mg, Oral, Daily magnesium hydroxide (Milk of Magnesia) 400 MG/5ML suspension 30 mL, Oral, Daily PRN, If no bm in 3 days melatonin 3 mg, Oral, Nightly metoprolol tartrate (LOPRESSOR) 50 mg, Oral, 2 times daily, Hold for SBP<100, HR <55 oxyCODONE-acetaminophen (Percocet) 5-325 MG tablet 1 tablet, Oral, Every 8 hours PRN polyethylene glycol (PEG) 3350 (MIRALAX) 17 g, Oral, Once SUMAtriptan (IMITREX) 50 mg, Oral, Every 6 hours PRN traMADol (ULTRAM) 50 mg, Oral, Every 6 hours PRN, Monitor signs and symptoms of delirium, over sedation, change in mental status and reduced respirations Allergies Allergies[8] Review of Systems Poor historian history of underlying dementia/ General Denies any fever or chills HEENT Denies any diplopia, tinnitus or vertigo Resp See HPI Cardiac Denies any chest pain, palpitations, claudication or edema GI Denies any melena, hematochezia, hematemesis or pyrosis Denies any frequency, urgency, hesitancy or incontinence Heme Denies bruising or bleeding easily Neuro Denies any focal motor or sensory deficits Psychiatric Denies anxiety, depression, suicidal ideation Skin Denies rashes, itching, open sores Vitals height is 5' 5 (1.651 m) and weight is 210 lb (95.3 kg). Her temporal temperature is 36.5 C (97.7 F). Her blood pressure is 134/82 and her pulse is 95. Her respiration is 17 and oxygen saturation is 98%. Body mass index is 34.95 kg/m . 24 Hour intake and output Intake/Output Summary (Last 24 hours) at 11/14/2024 1124 Last data filed at 11/14/2024 0535 Gross per 24 hour Intake 100 ml Output 601 ml Net -501 ml @[id number]@ Physical Exam General appearance: Awake, alert, no acute distress. Currently on room air saturation 97 percentile HEENT: Normocephalic, atraumatic. Pupils equil and round, External ear normal, conjunctivae normal, negative for scleral icterus. No congestion. Neck: ROM normal, supple, trachea midline. No lymphadenopathy Cardiovascular: Irregular rhythm. Heart sounds normal. Negative for murmur, friction rub or gallop. Tachycardic Pulmonary: Effort normal, no respiratory distress. Moderate air entry Rales posteriorly No wheezing Abdomen: Soft, non distended, non tender, bowel sounds normal. No palpable masses. No Hepatomegaly Musculoskeletal: ROM normal, Negative for swelling, tenderness or deformity. Skin: Warm, dry. Skin color, texture, turgor normal. Negative for rashes or lesions. Extremities: No clubbing, cyanosis, 1+ bipedal edema Neurological: No focal deficits. Alert and oriented x 1. Cranial nerves II-XII are intact Lymphatics: No cervical or axillary lymphadenopathy Psychiatric: Mood, behavior, thought content normal. Cooperative with exam. Labs CBC Results from last 7 days Lab Units 11/14/24 0044 WBC AUTO 10*3/uL 10.5 HEMOGLOBIN g/dL 13.9 HEMATOCRIT % 40.5 PLATELETS 10*3/uL 282 BMP: Results from last 7 days Lab Units 11/14/24 0044 11/13/24 1056 SODIUM mmol/L 139 141 POTASSIUM mmol/L 3.6 3.6 CHLORIDE mmol/L 105 105 CO2 mmol/L 21* 20* BUN mg/dL 32* 28* CREATININE mg/dL 1.37* 1.41* GLUCOSE mg/dL 248* 169* CALCIUM mg/dL 9.6 9.1 ABG: Results from last 7 days Lab Units 11/13/24 1532 11/13/24 1056 SOURCE OF OXYGEN Nasal Cannula (LPM) Nasal Cannula (LPM) LIVER PROFILE Results from last 7 days Lab Units 11/13/24 1056 ALK PHOS U/L 101 BILIRUBIN TOTAL mg/dL 0.6 PROTEIN TOTAL g/dL 6.8 ALT U/L 11 AST U/L 20 INR PTT No results found for: PTT Cultures Influenza PCR negative Radiology Exam Date/Time: 11/13/2024 11:11 Procedure: XR CHEST 1 VIEW Ordering Provider: SALEEM AMY Reason For Exam: COUGH CHEST - PORTABLE: CLINICAL INDICATION: COUGH TECHNIQUE: Portable AP COMPARISON: None. IMPRESSION: FINDINGS/IMPRESSION: Limitations: Mild patient rotation Lines, tubes, and devices: None. Cardiomediastinal silhouette: Heart size is within normal limits. Atherosclerotic calcifications in the thoracic aorta. Lungs/Pleura: Pulmonary vascular congestion right side greater than left. Additional hazy and streaky opacities right greater than left lung base suspicious for pneumonia. There may be a trace layering right pleural effusion. No pneumothorax. Osseous structures: Degenerative spondylosis in the visualized spine. Postsurgical changes shoulders. Soft tissues: No soft tissue abnormality is detected. Assessment & Recommendations -Acute hypoxic hypercapnic respiratory failure improved - Likely secondary to acute decompensated congestive heart failure which clinically has improved after brisk diuresis - No signs of CO2 narcosis, repeat VBG did show improved hypercarbia as well as pH - Chest x-ray more compatible with congestive heart failure with pleural effusion - Clinical suspicion for pneumonia is low in view of normal WBC count afebrile normal procalcitonin - Cardiac arrhythmia/abnormal EKG T inversion ST depression/elevated troponin, previous echocardiogram did show moderate aortic regurgitation Patient clinically appears to have improved since admission with brisk diuresis Likely has underlying ischemic heart disease leading to congestive heart failure as well as cardiac arrhythmia Cardiology evaluation and recommendation noted Clinical suspicion for pneumonia is low, would recommend de-escalation of antibiotics pending culture result Will repeat the chest x-ray in the morning to follow-up CHF as well as pleural effusion Patient saturating well on room air currently Advance Directive: DNR-CCA Case discussed with nurse and patient Questions and concerns addressed. Total time 60 minutes on this day of encounter includes counseling, coordinating plan of care, record and documentation review before and after visit including documentation and time not explicitly included on EMR time stamp for accounting for open encounter. Portions of the information within this encounter were entered using an electronic dictation system. Best attempts were made to edit/proofread the information prior to note completion. Despite the review of information, some errors may remain. If there are questions related to the information contained within the note please contact the signing provider directly. 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 [4] No family history on file. [5] busPIRone, 2.5 mg, Oral, BID DULoxetine, 30 mg, Oral, Daily enoxaparin, 40 mg, SubCUTAneous, Daily famotidine, 20 mg, Oral, Daily gabapentin, 300 mg, Oral, BID insulin lispro, 0-12 Units, SubCUTAneous, TID WC And insulin lispro, 0-12 Units, SubCUTAneous, Nightly levothyroxine, 50 mcg, Oral, qAM AC melatonin, 3 mg, Oral, Nightly melatonin, 3 mg, Oral, Nightly metoprolol tartrate, 50 mg, Oral, BID spironolactone, 25 mg, Oral, q48h [6] PRN medications: acetaminophen OR acetaminophen, aluminum & magnesium hydroxide-simethicone, bucaygh-[id number]-fwcgxsss, dextrose, dextrose, glucagon (rDNA), glucose, haloperidol lactate, hydrALAZINE, ipratropium-albuterol, lidocaine, magnesium hydroxide, naloxone, ondansetron ODT OR ondansetron, oxyCODONE-acetaminophen, phenol, polyethylene glycol (PEG) 3350, SUMAtriptan [7] [8] No Known Allergies Images from the original note were not included. Internal Medicine: MICU Initial Consult Name: Carline Villarreal : 1945(78 y.o.) Date: 11/13/24 Attending: Shiloh Knapp MD Subjective: Chief Complaint: shortness of breath HPI: Patient is a pleasant 78-year-old female with a history of obesity class II, stroke, hypertension who presented to [facility] ED from SNF for shortness of breath and cough. She was hypoxemic on room air, required CPAP/BiPAP briefly, initial VBG showed pH 7.22 and pCO2 55. CXR concerning for CHF, she received IV lasix with good response, weaned off PAP onto nasal cannula. Upon evaluation, patient feels notably improved. She is a never-smoker, she has never received a diagnosis of COPD or asthma, never on long-term inhalers. She has never been formally diagnosed with GABRIELE, never on supplemental O2 or nightly PAP therapy long-term. She states cough has been getting slowly worse for past few weeks, it seems Lisinopril is on her home medication list. No leg swelling or recent infectious symptoms. She is hemodynamically stable and in no acute distress. Past Medical History: Diagnosis Date Diabetes mellitus (HCC) Hypertension Stroke (HCC) No past surgical history on file. No family history on file. Social History Socioeconomic History Marital status: Spouse name: Not on file Number of children: Not on file Years of education: Not on file Highest education level: Not on file Occupational History Not on file Tobacco Use Smoking status: Some Days Types: Cigarettes Smokeless tobacco: Not on file Substance and Sexual Activity Alcohol use: Not Currently Drug use: Not Currently Sexual activity: Not on file Other Topics Concern Not on file Social History Narrative Not on file Social Drivers of Health Financial Resource Strain: Not on file Food Insecurity: Patient Unable To Answer (12/16/2023) Hunger Vital Sign Worried About Running Out of Food in the Last Year: Patient unable to answer Ran Out of Food in the Last Year: Patient unable to answer Transportation Needs: Patient Unable To Answer (12/16/2023) PRAPARE - Transportation Lack of Transportation (Medical): Patient unable to answer Lack of Transportation (Non-Medical): Patient unable to answer Physical Activity: Not on file Stress: Not on file Social Connections: Not on file Intimate Partner Violence: Patient Unable To Answer (12/16/2023) Humiliation, Afraid, Rape, and Kick questionnaire Fear of Current or Ex-Partner: Patient unable to answer Emotionally Abused: Patient unable to answer Physically Abused: Patient unable to answer Sexually Abused: Patient unable to answer Housing Stability: Patient Unable To Answer (12/16/2023) Housing Stability Vital Sign Unable to Pay for Housing in the Last Year: Patient unable to answer Number of Places Lived in the Last Year: 1 Unstable Housing in the Last Year: Patient unable to answer No Known Allergies Prior to Admission medications Medication Sig Start Date End Date Taking? Authorizing Provider acetaminophen (Tylenol) 325 MG tablet Take 650 mg by mouth every 6 hours as needed for mild pain (1-3), moderate pain (4-6) or fever. Historical Provider, aluminum-magnesium hydroxide-simethicone (Maalox MAX) 400-400-40 MG/5ML suspension Take 10 mL by mouth every 4 hours as needed for indigestion or heartburn. Historical Provider, atorvastatin (Lipitor) 40 MG tablet Take 40 mg by mouth daily. Historical Provider, bisacodyl (Dulcolax) 5 MG EC tablet Take 5 mg by mouth Daily as needed for constipation. Do not crush, chew, or split. Historical Provider, bisacodyl (Dulcolax) 5 MG EC tablet Take 5 mg by mouth Daily as needed for constipation. Do not crush, chew, or split. Historical ProviderMD busPIRone (Buspar) 5 MG tablet Take 2.5 mg by mouth 2 times daily. Historical ProviderMD cloNIDine (Catapres) 0.2 MG tablet Take 0.2 mg by mouth 2 times daily. Historical ProviderMD clopidogrel (Plavix) 75 MG tablet Take 75 mg by mouth daily. Historical ProviderMD DULoxetine (Cymbalta) [address] capsule Take 30 mg by mouth daily. Do not crush or chew. Historical ProviderMD escitalopram (Lexapro) 10 MG tablet Take 10 mg by mouth daily. Historical ProviderMD famotidine (Pepcid) 20 MG tablet Take 20 mg by mouth daily. Historical ProviderMD gabapentin (Neurontin) 300 MG capsule Take 300 mg by mouth 2 times daily. Historical ProviderMD hydrALAZINE (Apresoline) 25 MG tablet Take 25 mg by mouth every 8 hours as needed (systolic over 160). Historical ProviderMD hydroCHLOROthiazide (HYDRODiuril) 50 MG tablet Take 50 mg by mouth daily. Historical ProviderMD ibuprofen 200 MG tablet Take 400 mg by mouth in the morning and 400 mg at noon and 400 mg in the evening and 400 mg before bedtime. Give adequate fluid and food with medication to minimize GI irritation . Historical ProviderMD levothyroxine (Synthroid, Levoxyl) 50 MCG tablet Take 50 mcg by mouth every morning (before breakfast). Historical ProviderMD lisinopril 5 MG tablet Take 5 mg by mouth daily. Historical ProviderMD magnesium hydroxide (Milk of Magnesia) 400 MG/5ML suspension Take 30 mL by mouth Daily as needed for constipation. If no bm in 3 days Historical MD Antonietta melatonin 1 MG tablet Take 3 mg by mouth Nightly. Historical ProviderMD metoprolol tartrate (Lopressor) 50 MG tablet Take 50 mg by mouth 2 times daily. Hold for SBP<100, HR <55 Historical MD Antonietta oxyCODONE-acetaminophen (Percocet) 5-325 MG tablet Take 1 tablet by mouth every 8 hours as needed (for pain). Historical ProviderMD polyethylene glycol, PEG, 3350 (Miralax) 17 g packet Take 17 g by mouth Once. Historical Provider SUMAtriptan (Imitrex) 50 MG tablet Take 50 mg by mouth every 6 hours as needed for migraine. Historical Provider, traMADol (Ultram) 50 MG tablet Take 50 mg by mouth every 6 hours as needed for severe pain (7-10) or moderate pain (4-6). Monitor signs and symptoms of delirium, over sedation, change in mental status and reduced respirations Historical Provider, Objective: Oxygen Delivery: O2 Flow Rate (L/min): 4 L/min VITALS: BP (!) 186/94 Pulse 96 Temp 36.8 C (98.2 F) (Oral) Resp 16 Wt 102 kg (225 lb 1.4 oz) SpO2 94% BMI 36.33 kg/m CURRENT PULSE OXIMETRY: SpO2: 94 % ROS: Negative unless otherwise stated in HPI Constitutional: General Appearance []WDWN [x]Obese []Cachectic []Thin []Ill Eyes: Inspection of Pupils/Irises Pupils round and react: [x]Yes []No Sclera: []Icteric [x]Non-Icteric Inspection of Conjunctiva/Lids Conjunctiva: []Injected [x]Non-Injected Lids: [x]Intact []Lesion Present ENT/Mouth: External Inspection of ears/nose [x] Normal [] Scar/Lesion/Mass Inspection of teeth/lips/gums Dentition: [x][place] Teeth []Dentures Lips/Gums: [x]Intact []Lesion Present Mucosa: [x][place] []Moist []Dry Neck: External Appearance Overall Appearance: [x]Normal []Lesion/Mass/Crepitus Present Trachea midline: [x]Yes []No Thyroid [x]Normal []Enlarged []Tender []Mass []Absent Respiratory: Respiratory effort []Labored [x]Non-Labored [] Mechanically-Ventilated Auscultation [x]Clear []Crackles []Wheezes [][place] Cardiovascular: Auscultation Rate: [x]Regular []Irregular []Tachycardia []Bradycardia Rhythm: [x]Regular []Irregular Murmur: []Present [x]Absent Extremities Peripheral Edema: []Present [x]Absent Varicosities: []Present [x]Absent Gastrointestinal: Abdomen Palpation: [x]Soft []Firm []Tender [x]Non-Tender []Distended [x]Non-distended Mass: []Present [x]Absent Bowel Sounds: [x]Present []Absent Hernia: []Present [x]Absent Liver/Spleen: []Hepatosplenomegaly [x]Organomegaly Absent Musculoskeletal: Inspection of Digits and Nails Cyanosis: []Present [x]Absent Clubbing: []Present [x]Absent Ischemia: []Present [x]Absent Infection: []Present [x]Absent Extremities ORTIZ Equally: Except ([]RUE []RLE []LUE []LLE) Strength/Tone: Intact and Normal ([]RUE []RLE []LUE []LLE) Skin: Inspection [x]Normal []Rash []Lesion []Ulcer Palpation [x]Warm []Cool []Dry []Clammy []Nodules []Induration []Skin-tightening Cap-Refill: [x] <3 sec [] >3 seconds (delayed) Neurologic: [x] Sensation grossly intact Psych: Mental Status Alert: [x]Yes [] No Oriented: []x0 []X1 []X2 [x]x3 Mood/Affect [x]Normal []Flat []Agitated []Depressed []Anxious []Calm []Sedated []NAD [facility] within last 24 hours- BMP: Recent Labs 11/13/24 1056 NA 141 K 3.6 CL 105 CO2 20* BUN 28* CREATININE 1.41* CALCIUM 9.1 LFTs: Recent Labs 11/13/24 1056 AST 20 ALT 11 PROT 6.8 ALBUMIN 3.5 BILITOT 0.6 ALKPHOS 101 Glucose: Recent Labs 11/13/24 1056 GLUCOSE 169* Procal: Recent Labs 11/13/24 1256 PROCAL 0.02 CBC: Recent Labs 11/13/24 1056 11/13/24 1532 WBC 10.5 -- HGB 14.5 14.0 14.7 HCT 42.0 -- PLT 261 -- MCV 95.0 -- RDW 13.7 -- ABGs: Recent Labs 11/13/24 1056 11/13/24 1532 [id number] Nasal Cannula (LPM) Nasal Cannula (LPM) Lactic Acid: No results for input(s): LACTATE in the last 72 hours. INR: No results for input(s): INR in the last 72 hours. Cardiac Injury Profile: No results for input(s): CKTOTAL, CKMB, TROPONINI in the last 72 hours. Labs in Last 3 months: Lab Results Component Value Date INR 1.0 12/16/2023 Microbiology- Urine Cx: No results found for: URINECX Blood Cx: No results found for: BLOODCX Sputum Cx: No results found for: RESPCULT Gram Stain: No results found for: LABGRAM PNA PCR: No results found for: HUMANMETAPNE COVID19: No results found for: COVID19 Legionella Ag: No results found for: LEGIONELLAPN Strep Ag: No results for input(s): STREPPNEUMO in the last 72 hours. Imaging- CXR (11/13/24) FINDINGS/IMPRESSION: Limitations: Mild patient rotation Lines, tubes, and devices: None. Cardiomediastinal silhouette: Heart size is within normal limits. Atherosclerotic calcifications in the thoracic aorta. Lungs/Pleura: Pulmonary vascular congestion right side greater than left. Additional hazy and streaky opacities right greater than left lung base suspicious for pneumonia. There may be a trace layering right pleural effusion. No pneumothorax. Osseous structures: Degenerative spondylosis in the visualized spine. Postsurgical changes shoulders. Soft tissues: No soft tissue abnormality is detected. Assessment and Plan: Principal Problem: Pneumonia of both lower lobes due to infectious organism Assessment: Acute hypoxemic/hypercarbic respiratory failure Acute on chronic HFpEF Pulmonary edema Elevated troponin, demand-mediated Probable GABRIELE/OHS Never-smoker Plan: - Suspect presentation largely related to cardiogenic pulmonary edema with underlying undiagnosed GABRIELE/OHS, initial VBG concerning for acute CO2 retention, repeat VBG after diuresis and trial PAP therapy notably improved - OK for general floor admission, continue diuresis as tolerable, recommend BiPAP nightly while admitted, she may benefit from BiPAP nightly while at the facility - Routine pulmonary consult - Please do not hesitate to reach out with any questions or concerns BMI Classification: Body mass index is 36.33 kg/m . obesity BMI 30-39.9 Disposition: OK for general floor admission Critical Care Time: 50 Total critical care time caring for this patient with life threatening, unstable organ failure, including direct patient contact, management of life support systems, review of data including imaging and labs, discussions with other team members and physicians, excluding procedures. Images from the original note were not included. Pharmacy Managed Vancomycin Dosing Service Consult Note Consult Date: 11/13/24 Patient Name: Carline Villarreal Allergies: Patient has no known allergies. Age: 78 y.o. Sex: female Estimated body mass index is 36.33 kg/m as calculated from the following: Height as of 12/17/23: 1.676 m (5' 6). Weight as of this encounter: 102 kg (225 lb 1.4 oz). Lab Results Component Value Date CREATININE 1.41 (H) 11/13/2024 CREATININE 1.20 (H) 12/17/2023 BUN 28 (H) 11/13/2024 BUN 26 (H) 12/17/2023 WBC 10.5 11/13/2024 WBC 5.4 12/17/2023 Calculated CrCl: 39.7 mL/min Consulted By: Dr Franz Infectious Diagnosis: HAP (AUC Goal 400-600 mg/L*hr) Antimicrobials: Patient recently received an antibiotic (last 12 hours) Date/Time Action Medication Dose Rate 11/13/24 1335 New Bag vancomycin in NS (Vancocin) IVPB 2,000 mg 2,000 mg 250 mL/hr 11/13/24 1315 New Bag piperacillin-tazobactam (Zosyn) 4,500 mg in sodium chloride 0.9 % 100 mL IVPB Mini-Bag Plus 4,500 mg 200 mL/hr Assessment/Plan: Doses, serum creatinine, and vancomycin levels interfaced automatically to [employer] and data has been analyzed and interpreted. Start Vancomycin 2000mg LD, then 1000 mg Q 24 hours based on patient age, weight, renal function, and infectious diagnosis (9.8 mg/kg). Predicted AUC = 548 mg/L*hr (goal 400-600 mg/L*hr) Will assess level on 11/14/24 and adjust as appropriate. Trend serum creatinine. Orders placed. Thank you for this consult. Please secure text or call with questions. DATE: 11/13/24 TIME: 3:14 PM Julee Clement PharmD Clinical Pharmacist Available via Secure Chat documented in this encounter [facility] 11-20-2024 Hospital Discharge instructions Josey Jackson LPN - 11/20/2024 9:12 AM EDT Images from the original note were not included. Continuity of Care Form Patient Name: Carline Villarreal : 1945 Admit date: 11/13/2024 Discharge date: 11/21/24 Code Status Order: DNR-CCA Advance Directives: N Admitting Physician: Dominguez Franz MD PCP: Evi Guevara Discharging Nurse: Mihir Jackson LPN Discharging Hospital Unit/Room#: [id number] A Discharging Unit Emergency Contact: Extended Emergency Contact Information Primary Emergency Contact: Rosas Kwon Mobile Relation: Son Secondary Emergency Contact: Nicolette Ren Mobile Relation: Sister Past Surgical History: History reviewed. No pertinent surgical history. Immunization History: There is no immunization history on file for this patient. Active Problems: Medical Problems Problem List * (Principal) Acute exacerbation of chronic heart failure (HCC) Left-sided weakness Hypertensive chronic kidney disease with stage 1 through stage 4 chronic kidney disease, or unspecified chronic kidney disease Cerebrovascular accident (HCC) Overview Signed 11/13/2024 3:02 PM by Dominguez Franz MD 04/2017 Bipolar disorder (HCC) Anxiety Vitamin D deficiency Recurrent major depression (HCC) Unilateral paralysis as late effect of cerebrovascular accident (CVA) (HCC) Migraine headache Hypothyroid HTN (hypertension) Hyperlipidemia Gout Gastroesophageal reflux disease Dysphagia Dementia (HCC) 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) Constipation Chronic pain Hyperlipidemia, unspecified Obesity Osteoarthritis Psoriasis Insomnia Isolation/Infection: No active isolations No active infections Nurse Assessment: Last Vital Signs: BP (!) 176/81 Pulse 85 Temp 36.1 C (97 F) (Temporal) Resp 16 Ht 1.651 m (5' 5) Wt 95.3 kg (210 lb) SpO2 99% BMI 34.95 kg/m Last documented pain score (0-10 scale): Last Weight: Wt Readings from Last 1 Encounters: 11/14/24 95.3 kg (210 lb) Mental Status: LISANDRO Patient Mental Status: disoriented and alert IV Access: LISANDRO IV Access: None Nursing Mobility/ADLs: Walking Total assistance Transfer Total assistance Bathing Total assistance Dressing Total assistance Toileting Total assistance Feeding Minimal assistance Nuclear Auxiliary Operator Minimal assistance Med Delivery yes Wound Care Documentation and Therapy: Wound/Incision 11/13/24 Pressure Injury Buttock Left;Lower (Active) Wound Image 11/14/24 1449 Site Assessment Red 11/19/24 0930 Drainage Description Serosanguineous 11/13/24 2030 Odor None 11/16/24 1055 Drainage Amount None 11/19/24 0930 Treatments Moisture barrier ointment 11/19/242043 Primary Dressing Open to air 11/19/242043 Dressing Status Other (Comment) 11/19/242043 Number of days: 6 Wound/Incision 11/13/24 Pressure Injury Buttock Right;Lower (Active) Site Assessment Red 11/19/24 0930 Drainage Description Serosanguineous 11/13/24 2030 Odor None 11/19/24 0930 Drainage Amount None 11/19/24 0930 Treatments Moisture barrier ointment 11/19/242043 Primary Dressing Open to air 11/19/242043 Number of days: 6 Elimination: Continence: Bowel: no Bladder: no Urinary Catheter: None Colostomy/Ileostomy/Ileal Conduit: None Date of Last BM: 11/20/24 Intake/Output Summary (Last 24 hours) at 11/20/2024 0911 Last data filed at 11/19/2024 0930 Gross per 24 hour Intake 220 ml Output -- Net 220 ml I/O last 3 completed shifts: In: 220 (2.3 mL/kg) [P.O.:220] Out: 1 (0 mL/kg) [Stool:1] Weight: 95.3 kg Safety Concerns: at risk for falls Impairments/Disabilities: speech Nutrition Therapy: Current Nutrition Therapy: Oral diet: dental soft Routes of Feeding: oral Liquids: no restrictions Daily Fluid Restriction: no Last Modified Barium Swallow with Video (Video Swallowing Test): not done Treatments at the Time of Hospital Discharge: Respiratory Treatments: NA Oxygen Therapy: is not on home oxygen therapy. Ventilator: No ventilator support Rehab Therapies: physical therapy, occupational therapy, nursing, and aide Weight Bearing Status/Restrictions: no restriction Other Medical Equipment (for information only, NOT a DME order): bedside commode and wheeled walker Other Treatments: NA Patient's personal belongings (please select all that are sent with patient): none RN SIGNATURE: MANAGEMENT/SOCIAL WORK SECTION Inpatient Status Date: 11/13/2024 Discharging to Facility/ Agency Name: [facility] Address: [address] [place] [address] Fax: Dialysis Facility (if applicable) Name: Address: Dialysis Schedule: Phone: Fax: [employer] Ground Worker signature: ICIAN SECTION Name: Carline Villarreal Prognosis: fair Condition at Discharge: stable Rehab Potential (if transferring to Rehab): fair Recommended Labs or Other Treatments After Discharge: BMP/CBC in one week The individual is being admitted to a nursing facility directly from an [facility] or a unit of a [facility] that is not operated by or licensed by [facility] under section 5119.14 or 5160-3-15.1 5 The individual requires the level of services provided by a nursing facility for the condition for which he or she was treated in the hospital and, Physician Certification: I certify the above information and transfer of Carline Villarreal is necessary for the continuing treatment of the diagnosis listed and that she requires intermediate facility for less than 30 days. Update Admission H&P: No change in H&P PHYSICIAN SIGNATURE: documented in this encounter [facility] 11-19-2024 Note Hospitalist Progress Note 11/19/2024 Subjective: Admit Date: 11/13/2024 PCP: Evi Guevara Room#: [id number] A BRIEF HOSPITAL COURSE: Carline Villarreal is a 78 y.o. female with history of HTN, T2DM, CKD 3, stroke, dementia, GABRIELE, obesity, hypothyroidism, chronic pain, bipolar disorder, anxiety who presented to ED from facility on 11/13/24 for shortness of breath. In ED, initial labs significant for bicarb 20, AG 16, BUN 28, Cr 1.41, BG 169, WBC 10.5 wnl, Hb 14.0 wnl, troponin 12, BNP 6,596. Initial VB.229/55.8/32.9. EKG with sinus rhythm. Covid/RSV/flu negative. CXR showed pulmonary vascular congestion R>L, additional hazy and streaky opacities R>L, possible trace layering Right pleural effusion, and no pneumothorax. Blood cx obtained. Given IV solu-medrol 125 mg, IV lasix, and IV abx in ED. Patient required CPAP/BiPAP briefly in ED. ICU evaluated and noted okay for GMF. Admitted for further evaluation and management. Pulmonology consulted/evaluated, and noted respiratory issues likely 2/2 acute decompensated HF. Cardiology consulted/evaluated and diuresed patient. TTE showed LVEF 35% with grade II diastolic dysfunction with increased LAP, 2+ AR. Palliative Care evaluated. Geriatrics evaluated. CT Head (11/17) with no evidence of intracranial hemorrhage or definite acute cortical infarction, but moderate volume loss, periventricular white matter hypodensities, and old lacunar infarct within Right basal ganglia appearing unchanged. Hospital course complicated by EDWIGE. Cardiac medications optimized by Cardiology. PT/OT recommended SNF. Given low grade fever, tachycardia, and leukocytosis, discharge to SNF cancelled on 11/17 and blood cx obtained. Interval History: No documented overnight issues. Patient laying in bed, Aox2 (person, place), and slightly confused. Case and plan discussed with patient and bedside nurse. Questions answered. Adult diet Dysphagia - Pureed 24HR INTAKE/OUTPUT: Intake/Output Summary (Last 24 hours) at 11/19/2024 1038 Last data filed at 11/18/20242014 Gross per 24 hour Intake -- Output 1 ml Net -1 ml Past Medical History: Medical History[1] LABS: CBC: Recent Labs 11/17/24 1316 11/18/24 0537 11/19/24 0223 WBC 14.7* 12.2* 13.3* RBC 4.15 4.05 4.14 HGB 13.3 12.7 13.3 HCT 39.1 39.1 39.8 MCV 94.2 96.5 96.1 RDW 14.3 14.2 14.5 PLT 280 231 248 BMP: Recent Labs 11/17/24 1316 11/18/24 0537 11/19/24 0223 NA 144 144 138 K 3.2* 2.9* 3.3* CL 108* 108* 106 CO2 22* 23 20* BUN 70* 68* 59* CREATININE 2.26* 1.76* 1.60* GLUCOSE 244* 168* 142* CALCIUM 8.3* 8.1* 8.3* ANIONGAP 14* 13 12 LIVER PROFILE: Recent Labs 11/17/24 1316 AST 65* ALT 51* BILITOT 0.8 ALKPHOS 74 PROT 6.4 PT/INR: No results for input(s): PROTIME, INR in the last 72 hours. CARDIAC ENZYMES: No results for input(s): TROPONINI in the last 72 hours. Procalcitonin: No results found for: PROCAL COVID-19 PCR: No results for input(s): COVID19 in the last 72 hours. Objective: Vitals: BP 149/69 Pulse 69 Temp 36.6 ?C (97.9 ?F) (Temporal) Resp 18 Ht 5' 5 (1.651 m) Wt 210 lb (95.3 kg) SpO2 99% BMI 34.95 kg/m? Pulse Ox: SpO2 Av.7 % Min: 98 % Max: 99 % Supplemental O2: O2 Flow Rate (L/min): 3 L/min Physical Exam Constitutional: Appearance: She is obese. She is not toxic-appearing. HENT: Head: Normocephalic. Right Ear: External ear normal. Left Ear: External ear normal. Eyes: Extraocular Movements: Extraocular movements intact. Cardiovascular: Rate and Rhythm: Normal rate and regular rhythm. Pulmonary: Effort: Pulmonary effort is normal. No respiratory distress. Abdominal: General: Bowel sounds are normal. Palpations: Abdomen is soft. Tenderness: There is no abdominal tenderness. Skin: General: Skin is warm and dry. Neurological: Mental Status: She is alert. She is disoriented and confused. Medications: Scheduled PRN Scheduled Meds[2] PRN Meds[3] Continuous Continuous Meds[4] Assessment Acute, acute on chronic, unstable/uncontrolled chronic problems/diagnoses: # Acute hypoxic and hypercapnic respiratory failure, improved # Acute on chronic HFrEF - 2/2 ICM vs Takotsubo cardiomyopathy. TTE showed LVEF 35% with grade II diastolic dysfunction with increased LAP, 2+ AR # EDWIGE on CKD 3 - improving # Low grade fever, improved - Blood cx (11/17): NGTD # Leukocytosis # Dementia # Delirium # Hypokalemia - monitor and replete PRN # Dysphagia # Debility Stable chronic problems affecting care, new non-acute diagnoses: # HTN - holding lisinopril 5 mg daily. On hydralazine 100 mg TID, Toprol XL 100 mg daily # T2DM with hyperglycemia - A1c 5.5% (11/14/24). SSI, BG checks, hypoglycemia protocol. # Hx of stroke # GABRIELE # Obesity # Hypothyroidism - levothyroxine 50 mcg daily # Bipolar disorder # Anxiety - Cymbalta 30 mg daily, buspar 2.5 mg BID Plan As a result of the above findings & (more content not included)... [facility] 11-18-2024 Note Hospitalist Progress Note 11/18/2024 Subjective: Admit Date: 11/13/2024 PCP: Evi Guevara Room#: [id number] A BRIEF HOSPITAL COURSE: Carline Villarreal is a 78 y.o. female with history of HTN, T2DM, CKD 3, stroke, dementia, GABRIELE, obesity, hypothyroidism, chronic pain, bipolar disorder, anxiety who presented to ED from facility on 11/13/24 for shortness of breath. In ED, initial labs significant for bicarb 20, AG 16, BUN 28, Cr 1.41, BG 169, WBC 10.5 wnl, Hb 14.0 wnl, troponin 12, BNP 6,596. Initial VB.229/55.8/32.9. EKG with sinus rhythm. Covid/RSV/flu negative. CXR showed pulmonary vascular congestion R>L, additional hazy and streaky opacities R>L, possible trace layering Right pleural effusion, and no pneumothorax. Blood cx obtained. Given IV solu-medrol 125 mg, IV lasix, and IV abx in ED. Patient required CPAP/BiPAP briefly in ED. ICU evaluated and noted okay for GMF. Admitted for further evaluation and management. Pulmonology consulted/evaluated, and noted respiratory issues likely 2/2 acute decompensated HF. Cardiology consulted/evaluated and diuresed patient. TTE showed LVEF 35% with grade II diastolic dysfunction with increased LAP, 2+ AR. Palliative Care evaluated. Geriatrics evaluated. CT Head (11/17) with no evidence of intracranial hemorrhage or definite acute cortical infarction, but moderate volume loss, periventricular white matter hypodensities, and old lacunar infarct within Right basal ganglia appearing unchanged. Hospital course complicated by EDWIGE. Cardiac medications optimized by Cardiology. PT/OT recommended SNF. Given low grade fever, tachycardia, and leukocytosis, discharge to SNF cancelled on 11/17 and blood cx obtained. Interval History: No overnight issues. Patient sitting in bed, Aox1-2 (person, somewhat knows place/hospital), and slightly confused today. Patient intermittent yelling help and heard from hallway but on evaluation, patient sitting in bed calmly and comfortably and unable to specify what she needs help with. Case and plan discussed with patient and bedside nurse. Questions answered. Adult diet Dysphagia - Pureed 24HR INTAKE/OUTPUT: Intake/Output Summary (Last 24 hours) at 11/18/2024 1217 Last data filed at 11/18/2024 0814 Gross per 24 hour Intake 220 ml Output -- Net 220 ml Past Medical History: Medical History[1] LABS: CBC: Recent Labs 11/16/24 0456 11/17/24 1316 11/18/24 0537 WBC 12.7* 14.7* 12.2* RBC 4.42 4.15 4.05 HGB 14.1 13.3 12.7 HCT 41.5 39.1 39.1 MCV 93.9 94.2 96.5 RDW 14.2 14.3 14.2 PLT 317 280 231 BMP: Recent Labs 11/16/24 0456 11/17/24 1316 11/18/24 0537 NA 142 144 144 K 3.4* 3.2* 2.9* CL 105 108* 108* CO2 23 22* 23 BUN 47* 70* 68* CREATININE 1.65* 2.26* 1.76* GLUCOSE 165* 244* 168* CALCIUM 9.1 8.3* 8.1* ANIONGAP 14* 14* 13 LIVER PROFILE: Recent Labs 11/17/24 1316 AST 65* ALT 51* BILITOT 0.8 ALKPHOS 74 PROT 6.4 PT/INR: No results for input(s): PROTIME, INR in the last 72 hours. CARDIAC ENZYMES: No results for input(s): TROPONINI in the last 72 hours. Procalcitonin: No results found for: PROCAL COVID-19 PCR: No results for input(s): COVID19 in the last 72 hours. Objective: Vitals: BP 113/77 (BP Location: Right arm, Patient Position: Lying) Pulse 77 Temp 36.2 ?C (97.2 ?F) (Temporal) Resp 18 Ht 5' 5 (1.651 m) Wt 210 lb (95.3 kg) SpO2 98% BMI 34.95 kg/m? Pulse Ox: SpO2 Av.5 % Min: 97 % Max: 100 % Supplemental O2: O2 Flow Rate (L/min): 3 L/min Physical Exam Constitutional: Appearance: She is obese. She is not toxic-appearing. HENT: Head: Normocephalic. Right Ear: External ear normal. Left Ear: External ear normal. Eyes: Extraocular Movements: Extraocular movements intact. Cardiovascular: Rate and Rhythm: Normal rate and regular rhythm. Pulmonary: Effort: Pulmonary effort is normal. No respiratory distress. Abdominal: General: Bowel sounds are normal. Palpations: Abdomen is soft. Tenderness: There is no abdominal tenderness. Skin: General: Skin is warm and dry. Neurological: Mental Status: She is alert. She is disoriented and confused. Medications: Scheduled PRN Scheduled Meds[2] PRN Meds[3] Continuous Continuous Meds[4] Assessment Acute, acute on chronic, unstable/uncontrolled chronic problems/diagnoses: # Acute hypoxic and hypercapnic respiratory failure, improved # Acute on chronic HFrEF - 2/2 ICM vs Takotsubo cardiomyopathy. TTE showed LVEF 35% with grade II diastolic dysfunction with increased LAP, 2+ AR # EDWIGE on CKD 3 - improving # Low grade fever, improved - Blood cx (11/17): NGTD # Leukocytosis # Dementia # Delirium # Hypokalemia - monitor and replete PRN # Dysphagia # Debility Stable chronic problems affecting care, new non-acute diagnoses: # HTN - holding lisinopril 5 mg daily. On hydralazine 100 mg TID, Toprol XL 100 mg daily # T2DM with hyperglycemia - A1c 5.5% (11/02 (more content not included)... [facility] 11-17-2024 Note Hospitalist Progress Note 11/17/[id number]: Please page me ([phone]) for patient care issues. [phone]: Please page [facility] Hospitalist for any issues. Subjective: Admit Date: 11/13/2024 PCP: Evi Guevara Room#: [id number] Annamaria Villarreal is a 78 y.o. female who presents with Acute exacerbation of chronic heart failure (HCC) Interval History: 78-year-old female patient is admitted with acute on chronic CHF. Cardiology is consulted, echo revealed 35% EF. Echo is consistent with Takotsubo, and it was decided that she would not be a candidate for invasive treatment, given her age and dementia. Also not a candidate for oral anticoagulation given her dementia her speech is unintelligible and she cannot give any review of systems. Today her speech is still unintelligible, spoke with her son and, she has teeth at the group home. She was febrile today morning, at 100.1 and is unable to give any review of systems. Labs done today show white count of 14,000 K of 3.2 and creatinine increased to 2.2 Discussed with geriatric service and ordered urine analysis, chest x-ray and blood cultures since she is also tachycardic. Adult diet Regular 24HR INTAKE/OUTPUT: No intake or output data in the 24 hours ending 11/17/24 1554 LABS: CBC: Recent Labs 11/15/24 0550 11/16/24 0456 11/17/24 1316 WBC 15.0* 12.7* 14.7* RBC 4.42 4.42 4.15 HGB 13.8 14.1 13.3 HCT 40.9 41.5 39.1 MCV 92.5 93.9 94.2 RDW 14.1 14.2 14.3 PLT 308 317 280 BMP: Recent Labs 11/15/24 0550 11/16/24 0456 11/17/24 1316 NA 144 142 144 K 3.3* 3.4* 3.2* CL 107 105 108* CO2 22* 23 22* BUN 40* 47* 70* CREATININE 1.56* 1.65* 2.26* GLUCOSE 169* 165* 244* CALCIUM 9.2 9.1 8.3* ANIONGAP 15* 14* 14* LIVER PROFILE: Recent Labs 11/17/24 1316 AST 65* ALT 51* BILITOT 0.8 ALKPHOS 74 PROT 6.4 PT/INR: No results for input(s): PROTIME, INR in the last 72 hours. CARDIAC ENZYMES: No results for input(s): TROPONINI in the last 72 hours. Procalcitonin: Lab Results Component Value Date PROCAL 0.08 (H) 11/15/2024 @RISRSLTSPECIALTY@ Objective: Vitals: BP 152/87 Pulse 117 Temp 36.9 ?C (98.4 ?F) (Temporal) Resp 16 Ht 5' 5 (1.651 m) Wt 210 lb (95.3 kg) SpO2 100% BMI 34.95 kg/m? Pulse Ox: SpO2 Av.8 % Min: 96 % Max: 100 % Supplemental O2: O2 Flow Rate (L/min): 3 L/min 11/17/2024 General appearance: Awake alert oriented x 1, appears to be in no distress Cardiovascular: S1, S2, regular rhythm, no murmurs gallops or rubs Respiratory: Diminished breath sounds bilaterally, no wheezing or rhonchi Abdomen: Benign, positive bowel sounds, soft, nontender Musculoskeletal: No edema, no calf tenderness. Skin: No rash or lesions Neurological: Awake alert oriented x 1, no acute motor or sensory deficits Medications: Continuous Meds[1] Scheduled Meds[2] PRN Meds[3] Assessment Acute on chronic heart failure with reduced ejection fraction-I was given IV Lasix, cardiology service is following Speech disturbance-looks more to be from lack of teeth, discussed with geriatric service and ordered CT of the head which is unremarkable for acute pathology or acute stroke Acute kidney injury-creatinine increased to 2.2, will hold lisinopril, start IV fluids Sepsis syndrome, meets sepsis criteria will check blood cultures,, start IV fluids, hold lisinopril, chest x-ray and urine analysis SEP-1 CORE MEASURE DATA SIRS Criteria Sepsis Criteria Severe Sepsis Criteria Septic Shock Criteria Must meet 2: [x] Temperature > 100.4 F (38 C) or < 96.8 F (36 C) [x] HR > 90 [] RR > 20 [x] WBC > 12 or < 4 or 10% bands Must be confirmed or suspected to move forward with diagnosis of sepsis. Must select at least one: [x] Bacterial Infection Confirmed or Suspected. [] Viral Infection Confirmed or Suspected. [] No infection present. Patient does not meet criteria for Sepsis. Must meet 1: [] Lactate > 2 or [x] Signs of Organ Dysfunction: - SBP < 90 or MAP < 65 - Altered mental status - Creatinine > 2 or increased from baseline - Urine Output < 0.5 ml/kg/hr - Bilirubin > 2 - INR > 1.5 - Platelets < 100,000 - Acute Respiratory Failure as evidenced by new need for NIPPV or mechanical ventilation [] No criteria met for Severe Sepsis. Must meet 1: [] Lactate = or > 4 or [] SBP < 90 or MAP < 65 for at least two readings in the first hour after fluid bolus administration [] No criteria met for Septic Shock. Patient Vitals from 11/16/24 2301 to 11/17/24 0000 BP Pulse SpO2 11/16/24 2349 (!) 173/91 103 99 % Recent Labs 11/15/24 0550 11/16/24 0456 11/17/24 1316 WBC 15.0* 12.7* 14.7* CREATININE 1.56* 1.65* 2.26* BILITOT -- -- 0.8 PLT 308 317 280 Sepsis Identified at 1500 hours. Fluid resuscitation at 75 mL/h because of the history of CHF, recently she got Lasix Infection Source: Unknown Reassessment Exam: Not applicable (more content not included)... [facility] 11-17-2024 Note [facility] Cardiology /Electrophysiology Progress Note HPI / Interval History: Carline Villarreal has a history of dementia, diabetes, HTN, stroke who presented to [facility] with SOB. Pro-BNP 6596, hs trop 12-124. She was seen by Dr. Hinton in consultation. TTE with new LV dysfunction with EF 35% and WMA consistent with Takotsubo cardiomyopathy vs CAD. She was diuresed with IV lasix, last dose of IV lasix 11/14/2024, and started on GDMT. She continues to be confused, oriented to self only. Appears comfortable, somewhat lethargic in bed. Does not answer questions. Pt is recommended for conservative medical therapy. Assessment/Plan HF NYHA Class [] I [x] II [] III [] IV []Unable to assess [] N/A HFrEF 2/2 ICM vs takotsubo cardiomyopathy, Stage C, Class II, EF 35% per TTE 11/2024 - daily weight not documented, poor mobility - no current HF symptoms and continues to appear euvolemic on exam - continue Toprol 100 mg po daily continues - lisinopril decreased from 20 mg to 5 mg po daily - spironolactone 25 mg po daily, hydrochlorothiazide 25 mg daily discontinued due to renal insuffiencey - Hydralazine 100 mg three times daily and Imdur 30 mg daily started to optimize GDMT. Will continue to monitor BP tolerance. - medical management recommended, she is not a candidate for invasive evaluation due to dementia/debility HTN, improving - continue Toprol 100 mg po daily - lisinopril 5 mg po daily - hydralazine 100 mg three times daily and Imdur 30 mg daily continues PAF - 2 episodes of nonsustained Afib - not currently on tele - continue Toprol 100 mg po daily - not a candidate for OAC due to low afib burden, dementia and debility - heart rate irregular on exam, rate controlled Elevated trop - hs trop 12-124 - no angina - conservative management recommended CKD - baseline creatinine 1.2-1.4 - creatinine 1.65 today with initiation of HF meds - as outlined above would avoid Rubia/ARB/MRA - diuretics to be given as needed Dispo: will sign off from a Cardiac standpoint. Will continue to see as needed. Please call the office if any additional questions. Pt lives at [facility] facility Medications: busPIRone, 2.5 mg, Oral, BID DULoxetine, 30 mg, Oral, Daily enoxaparin, 40 mg, SubCUTAneous, Daily famotidine, 20 mg, Oral, Daily gabapentin, 400 mg, Oral, BID hydrALAZINE, 100 mg, Oral, TID insulin lispro, 0-12 Units, SubCUTAneous, TID WC And insulin lispro, 0-12 Units, SubCUTAneous, Nightly isosorbide mononitrate ER, 30 mg, Oral, Daily levothyroxine, 50 mcg, Oral, qAM AC lisinopril, 5 mg, Oral, Daily melatonin, 3 mg, Oral, Nightly metoprolol succinate XL, 100 mg, Oral, Daily Infusion Medications: Continuous Meds[1] Physical Examination: Vitals: 11/17/24 0337 11/17/24 0340 11/17/24 0732 11/17/24 1151 BP: 156/87 (!) 178/118 151/79 BP Location: Left arm Patient Position: Lying Pulse: 106 97 115 106 Resp: 20 16 Temp: 36.8 ?C (98.2 ?F) 37.8 ?C (100.1 ?F) TempSrc: Temporal Temporal SpO2: 98% 96% 100% 99% Weight: Height: No intake or output data in the 24 hours ending 11/17/24 1319 Patient Vitals for the past 168 hrs: Weight Weight Method 11/14/24 1300 210 lb (95.3 kg) -- 11/14/24 0500 210 lb (95.3 kg) -- 11/13/24 2026 210 lb (95.3 kg) Bed scale 11/13/24 1315 225 lb 1.4 oz (102 kg) -- Physical Exam Vitals reviewed. HENT: Head: Normocephalic and atraumatic. Neck: Vascular: No JVD. Cardiovascular: Rate and Rhythm: Normal rate. Rhythm irregular. Heart sounds: Normal heart sounds. Comments: Rate controlled Pulmonary: Effort: Pulmonary effort is normal. Breath sounds: Normal breath sounds. Comments: Diminished anteriorly Abdominal: General: Abdomen is flat. Bowel sounds are normal. Palpations: Abdomen is soft. Musculoskeletal: Right lower leg: No edema. Left lower leg: No edema. Comments: Mild generalized edema BLE Skin: General: Skin is warm and dry. Neurological: Mental Status: She is alert. Mental status is at baseline. Psychiatric: Mood and Affect: Mood normal. Cognition and Memory: Cognition is impaired. Memory is impaired. Laboratory Tests: TROPONIN I, CONVENTIONAL SENSITIVITY TROPONIN I Date Value Ref Range Status 12/16/2023 <0.012 <0.034 ng/mL Final 12/16/2023 <0.012 <0.034 ng/mL Final 12/16/2023 <0.012 <0.034 ng/mL Final TROPONIN I, HIGH SENSITIVITY Troponin HS Serial Baseline Date Value Ref Range Status 11/13/2024 12 <=14 ng/L Final Comment: In individuals presenting with symptoms > 2h, a baseline troponin <= 5 ng/L suggests acute cardiac injury is unlikely and further serial testing is generally not indicated. 2h Troponin HS (Serial 2nd Troponin) Date Value Ref Range Status 11/13/2024 124 (H) <=14 ng/L Final Comment: Rising or falling troponin delta greater than 15 ng/L as compared to baseline value is significant for acute cardiac injur (more content not included)... [facility] 11-16-2024 Note Hospitalist Progress Note 11/16/2024 [phone]: Please page me ([phone]) for patient care issues. [phone]: Please page [facility] Hospitalist for any issues. Subjective: Admit Date: 11/13/2024 PCP: Evi Guevara Room#: J3-190/[id number] A Carline Villarreal is a 78 y.o. female who presents with Acute exacerbation of chronic heart failure (HCC) Interval History: 78-year-old female patient is admitted with acute on chronic CHF. Cardiology is consulted, echo revealed 35% EF Echo is consistent with Takotsubo, and it was decided that she would not be a candidate for invasive treatment, given her age and dementia. Also not a candidate for oral anticoagulation given her dementia her speech is unintelligible and she cannot give any review of systems Discussed with RN and earlier today she had an episode of emesis after she ate, she does not look short of breath, will ask speech to evaluate for dysphagia Adult diet Regular 24HR INTAKE/OUTPUT: Intake/Output Summary (Last 24 hours) at 11/16/2024 1514 Last data filed at 11/15/2024 1814 Gross per 24 hour Intake 150 ml Output -- Net 150 ml LABS: CBC: Recent Labs 11/14/24 0044 11/15/24 0550 11/16/24 0456 WBC 10.5 15.0* 12.7* RBC 4.39 4.42 4.42 HGB 13.9 13.8 14.1 HCT 40.5 40.9 41.5 MCV 92.3 92.5 93.9 RDW 13.5 14.1 14.2 PLT 282 308 317 BMP: Recent Labs 11/14/244311/15/24 0550 11/16/24 0456 NA 139 144 142 K 3.6 3.3* 3.4* CL 105 107 105 CO2 21* 22* 23 BUN 32* 40* 47* CREATININE 1.37* 1.56* 1.65* GLUCOSE 248* 169* 165* CALCIUM 9.6 9.2 9.1 ANIONGAP 13 15* 14* LIVER PROFILE: No results for input(s): AST, ALT, BILITOT, ALKPHOS, PROT in the last 72 hours. No lab exists for component: LABALBU PT/INR: No results for input(s): PROTIME, INR in the last 72 hours. CARDIAC ENZYMES: No results for input(s): TROPONINI in the last 72 hours. Procalcitonin: Lab Results Component Value Date PROCAL 0.08 (H) 11/15/2024 @RISRSLTSPECIALTY@ Objective: Vitals: BP 147/99 Pulse 97 Temp (!) 35.8 ?C (96.5 ?F) (Temporal) Resp 20 Ht 5' 5 (1.651 m) Wt 210 lb (95.3 kg) SpO2 97% BMI 34.95 kg/m? Pulse Ox: SpO2 Av % Min: 91 % Max: 97 % Supplemental O2: O2 Flow Rate (L/min): 2 L/min 11/16/2024 General appearance: Awake alert oriented x 1, appears to be in no distress Cardiovascular: S1, S2, regular rhythm, no murmurs gallops or rubs Respiratory: Diminished breath sounds bilaterally, no wheezing or rhonchi Abdomen: Benign, positive bowel sounds, soft, nontender Musculoskeletal: No edema, no calf tenderness. Skin: No rash or lesions Neurological: Awake alert oriented x 1, no acute motor or sensory deficits Medications: Continuous Meds[1] Scheduled Meds[2] PRN Meds[3] Assessment Acute on chronic heart failure with reduced ejection fraction-I IV Lasix, cardiology following Takotsubo cardiomyopathy versus CAD, added Lopressor Aldactone and lisinopril , monitoring renal function Bilateral HAP rule out -abx discontinued yesterday, monitor off antibiotics Hypokalemia - replace potassium Type 2 DM with hyperglycemia Leukocytosis-will monitor closely, no other signs of infection at this time, trending down and today 12,000 Uncontrolled hypertension - added hydrochlorothiazide from tomorrow and added spironolactone , liisnopril added, much better today Delirium symptoms with underlying dementia-she also lacks capacity for medical decision making OHS/GABRIELE at bedtime bipap Bilateral pressure ulcers on buttocks- POA Episodes of nonsustained atrial fibrillation -, rate control with metoprolol and may increase to 100 mgs bid if needed Chronic problems Bipolar disorder CKD stage III with creatinine at baseline of 1.3-1.5 , today creatinine at 1.6, EDWIGE RULED OUT Anxiety with depressive symptoms-continue BuSpar Hx CVA with left sided sequelae Hypothyroid-continue levothyroxine Obesity class 2 Hx gout Hx migraines Insomnia Plan Reviewed CBC BMP and ordered CBC BMP in a.m. Replace potassium Discussed with palliative service and the family is not ready for hospice, already DNR [facility] Consult speech therapy for dysphagia evaluation Possible discharge planning tomorrow to [facility] Discussed with geriatric service and increase gabapentin from 300 to 400 mg twice daily -am labs, replace lytes prn -increase activity Diet Adult diet Regular DVT Prophylaxis [x] Lovenox, [] Heparin, [] SCDs, [] Ambulation [] Already on Anticoagulation GI Prophylaxis [] PPI, [] H2 Liana, [] Carafate, [] Diet/Tube Feeds Code Status DNR-CCA Disposition Patient requires continued admission due to congestive heart failure MDM [] Low, [] Moderate,[x] High Patient's risk as above Total time spent (which include face to face and non face to face encounters) : 35 minutes Toxic drug monitoring/narrow therapeutic index drug monitoring : # Drug name : Lasix # Route (more content not included)... [facility] 11-16-2024 Note Smoking cessation co unseling held due to patient status. [facility] 11-16-2024 Note PHYSICAL THERAPY [facility] Initial Evaluation Name/MRN: Carline Villarreal ([id number]) Evaluation Date: 11/16/2024 Date of : 1945 Admission Date: 11/13/2024 10:39 AM Age: 78 y.o. Room/Bed: B4-466/B4466 A Discharge Recommendation: Assisted Facility Equipment Needed: No Assessment IMPRESSION: Pt admitted to ED on 11/13/24 with AE of CHF. Prior to admission, pt lived with mother and performed mobility with rollator. Upon eval, pt required Max Ax1 for bed mobility, Max Ax1 for transfers, Unable to perform any gait/ambulation d/t poor standing balance. Pt would benefit from skilled PT services in order to increase safety and independence in functional mobility and daily tasks. Recommend SNF upon DC. Admitting Diagnosis: AE of CHF Prognosis: good Performance Deficits /Impairments: Increased Pain, Decreased Functional Mobility, Decreased ADL status, Decreased Strength, Decreased Safety Awareness, Decreased Endurance, and Decreased Balance Decision Making: Medium Complexity Subjective Pt pleasant and agreeable to PT evaluation. RN cleared pt for session. 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) 01/06/2019 Migraine headache 01/06/2019 Hypothyroid 01/06/2019 Gout 01/06/2019 Gastroesophageal reflux disease 01/06/2019 Dementia (HCC) 01/06/2019 Obesity 01/06/2019 Psoriasis 01/06/2019 Cerebrovascular accident (HCC) 07/19/2017 Anxiety 07/19/2017 HTN (hypertension) 07/19/2017 Hyperlipidemia 07/19/2017 Medical Precautions: No active isolations Proper PPE donned/doffed in accordance with facility standards. Fall Risk: Oleary Fall Risk Score: 60 (High Risk) Precautions/Restrictions: N/A Family/Caregiver Present: none Overall Cognitive Status: Exceptions - Safety judgement: decreased awareness of need for assistance and decreased awareness of need for safety - Problem solving: assistance required to generate solutions, assistance required to implement solutions, assistance required to identify errors made, and assistance required to correct errors made - Insights: decreased awareness of deficits - Sequencing: requires cues for some Overall Orientation Status: Oriented to Person Vision: Not Assessed Hearing: normal Social/Functional History All Social/Functional obtained from OT. Pt questionable historian, all information provided by pt to the best of their knowledge Patient admitted from home. Lives With: Parent Type of Home: single family home Home Layout: Two Level Home and Able to Live on Main Level Home Access: Level Entry Bathroom Shower/Tub: Tub/Shower Combo, Shower Chair with Back, and Grab Bars Toilet: Handicap Height and Grab Bars Home Equipment: rollator and cane Homemaking Responsibilities: Independent Receives Help From: None Active Special Delivery Carrier: Yes Prior Level of Function Prior Level of ADL Function: Independent Prior Level of Mobility: Independent; Device: Rollator Prior Level of Transfers: Independent Objective Lower Extremity Assessment AROM: WFL Strength: Gross strength 3+/5 bilaterally Sensation: WFL Bed Mobility: Supine to sit: Max Assist Sit to supine: Max Assist Scooting: Max Assist Max Ax1 required for all bed mobility with max cues for proper sequencing, body mechanics, activity pacing and positioning for self assistance. Poor return noted. Max Ax1 for sitting balance at EOB d/t persistent R lateral lean. Increased time and effort needed to complete. Transfers Sit to stand: Max Assist Stand to sit: Max Assist Pt completed STS from EOB x2 with Max Ax1 and max cues for proper sequencing, activity pacing, body mechanics and overall device management. Poor return of cues noted. Unable to sequence any steps at bedside at this time d/t poor balance. Ambulation Did not assess this session. Outcome Measures AM-PAC How much HELP from another person do you currently need Turning from your back to your side while in a flat bed without using bedrails?: A Lot Moving from lying on your back to sitting on the side of a flat bed without using bedra (more content not included)... [facility] 11-16-2024 Note [facility] Cardiology /Electrophysiology Progress Note HPI / Interval History: Carline Villarreal has a history of dementia, diabetes, HTN, stroke who presented to [facility] with SOB. Pro-BNP 6596, hs trop 12-124. She was seen by Dr. Hinton in consultation. TTE with new LV dysfunction with EF 35% and WMA consistent with Takotsubo cardiomyopathy vs CAD. She was diuresed with IV lasix and started on GDMT. Today, she is oriented to self only. She denies CP, SOB, PND, orthopnea, edema, palpitations, syncope. Assessment/Plan HF NYHA Class [] I [x] II [] III [] IV []Unable to assess [] N/A HFrEF 2/2 ICM vs takotsubo cardiomyopathy, Stage C, Class II, EF 35% per TTE 11/2024 - daily weight not documented - I&O + 367 ml (? Accuracy) - no current HF symptoms and appears euvolemic on exam - continue Toprol 100 mg po daily - continue lisinopril 20 mg po daily - continue spironolactone 25 mg po daily - continue hydrochlorothiazide 25 mg po daily - medical management recommended, she is not a candidate for invasive evaluation due to dementia/debility HTN, improving - some of her elevated BP may be rebound HTN due to stopping her clonidine and should improve the longer she is off clonidine - continue Toprol 100 mg po daily - continue hydrochlorothiazide 25 mg po daily - continue lisinopril 20 mg po daily - continue spironolactone 25 mg po daily PAF - 2 episodes of nonsustained Afib - not currently on tele - continue Toprol 100 mg po daily - not a candidate for OAC due to low afib burden, dementia and debility Elevated trop - hs trop 12-124 - no angina - conservative management recommended CKD - baseline creatinine 1.2-1.4 - creatinine 1.65 today with initiation of HF meds - continue to monitor Dispo: will continue to follow while inpatient to adjust GDMT Medications: busPIRone, 2.5 mg, Oral, BID DULoxetine, 30 mg, Oral, Daily enoxaparin, 40 mg, SubCUTAneous, Daily famotidine, 20 mg, Oral, Daily gabapentin, 300 mg, Oral, BID hydroCHLOROthiazide, 25 mg, Oral, Daily insulin lispro, 0-12 Units, SubCUTAneous, TID WC And insulin lispro, 0-12 Units, SubCUTAneous, Nightly levothyroxine, 50 mcg, Oral, qAM AC lisinopril, 20 mg, Oral, Daily melatonin, 3 mg, Oral, Nightly metoprolol succinate XL, 100 mg, Oral, Daily spironolactone, 25 mg, Oral, q24h Infusion Medications: Continuous Meds[1] Physical Examination: Vitals: 11/15/24202511/15/24 2336 11/16/24 0051 11/16/24 0801 BP: (!) 194/99 (!) 177/107 150/94 147/99 BP Location: Left arm Patient Position: Lying Pulse: 108 106 96 97 Resp: 16 20 Temp: 36.4 ?C (97.5 ?F) (!) 35.8 ?C (96.5 ?F) TempSrc: Temporal Temporal SpO2: 97% 97% Weight: Height: Intake/Output Summary (Last 24 hours) at 11/16/2024 1054 Last data filed at 11/15/2024 1814 Gross per 24 hour Intake 390 ml Output -- Net 390 ml Patient Vitals for the past 168 hrs: Weight Weight Method 11/14/24 1300 210 lb (95.3 kg) -- 11/14/24 0500 210 lb (95.3 kg) -- 11/13/242025 210 lb (95.3 kg) Bed scale 11/13/24 1315 225 lb 1.4 oz (102 kg) -- Physical Exam Vitals reviewed. HENT: Head: Normocephalic and atraumatic. Neck: Vascular: No JVD. Cardiovascular: Rate and Rhythm: Normal rate and regular rhythm. Heart sounds: Normal heart sounds. Pulmonary: Effort: Pulmonary effort is normal. Breath sounds: Normal breath sounds. Abdominal: General: Abdomen is flat. Bowel sounds are normal. Palpations: Abdomen is soft. Musculoskeletal: Right lower leg: No edema. Left lower leg: No edema. Skin: General: Skin is warm and dry. Neurological: Mental Status: She is alert. Mental status is at baseline. Psychiatric: Mood and Affect: Mood normal. Cognition and Memory: Cognition is impaired. Memory is impaired. Laboratory Tests: TROPONIN I, CONVENTIONAL SENSITIVITY TROPONIN I Date Value Ref Range Status 12/16/2023 <0.012 <0.034 ng/mL Final 12/16/2023 <0.012 <0.034 ng/mL Final 12/16/2023 <0.012 <0.034 ng/mL Final TROPONIN I, HIGH SENSITIVITY Troponin HS Serial Baseline Date Value Ref Range Status 11/13/2024 12 <=14 ng/L Final Comment: In individuals presenting with symptoms > 2h, a baseline troponin <= 5 ng/L suggests acute cardiac injury is unlikely and further serial testing is generally not indicated. 2h Troponin HS (Serial 2nd Troponin) Date Value Ref Range Status 11/13/2024 124 (H) <=14 ng/L Final Comment: Rising or falling troponin delta greater than 15 ng/L as compared to baseline value is significant for acute cardiac injury. No results found for: TROPDELTBASE No results found for: TROPHS3 No results found for: TROPDELTSEC Recent Labs 11/13/24 1056 11/14/24 0044 11/15/24 0550 11/16/24 0456 NA 141 139 144 142 K 3.6 3.6 3.3* 3.4* CL 105 105 107 105 CO2 20* 21* 22* 23 BUN 28* 32* 40* 47* CREATININE 1.41* 1.37* 1.56* 1.65* Recent Labs (more content not included)... [facility] 11-15-2024 Note Hospitalist Progress Note 11/15/2024 [phone]: Please page me ([phone]) for patient care issues. [phone]: Please page [facility] Hospitalist for any issues. Subjective: Admit Date: 11/13/2024 PCP: Evi Guevara Room#: [id number] Annamaria Villarreal is a 78 y.o. female who presents with Acute exacerbation of chronic heart failure (HCC) Interval History: 78-year-old female patient is admitted with acute on chronic CHF. Cardiology is consulted, echo revealed 35% EF Echo is consistent with Takotsubo, and it was decided that she would not be a candidate for invasive treatment, given her age and dementia Denies chest pain, abdominal pain, nausea, vomiting, diarrhea, constipation, fevers, or chills. Adult diet Regular 24HR INTAKE/OUTPUT: Intake/Output Summary (Last 24 hours) at 11/15/2024 1522 Last data filed at 11/15/2024 1000 Gross per 24 hour Intake 480 ml Output 2 ml Net 478 ml LABS: CBC: Recent Labs 11/13/24 1056 11/13/24 1532 11/14/24 0044 11/15/24 0550 WBC 10.5 -- 10.5 15.0* RBC 4.42 -- 4.39 4.42 HGB 14.5 14.0 14.7 13.9 13.8 HCT 42.0 -- 40.5 40.9 MCV 95.0 -- 92.3 92.5 RDW 13.7 -- 13.5 14.1 PLT 261 -- 282 308 BMP: Recent Labs 11/13/24 1056 11/14/24 0044 11/15/24 0550 NA 141 139 144 K 3.6 3.6 3.3* CL 105 105 107 CO2 20* 21* 22* BUN 28* 32* 40* CREATININE 1.41* 1.37* 1.56* GLUCOSE 169* 248* 169* CALCIUM 9.1 9.6 9.2 ANIONGAP 16* 13 15* LIVER PROFILE: Recent Labs 11/13/24 1056 AST 20 ALT 11 BILITOT 0.6 ALKPHOS 101 PROT 6.8 PT/INR: No results for input(s): PROTIME, INR in the last 72 hours. CARDIAC ENZYMES: No results for input(s): TROPONINI in the last 72 hours. Procalcitonin: Lab Results Component Value Date PROCAL 0.08 (H) 11/15/2024 @RISRSLTSPECIALTY@ Objective: Vitals: BP (!) 194/102 (BP Location: Right arm, Patient Position: Lying) Comment: Dr aware given PRN beta liana etc, NNO at this itme Pulse 96 Temp 36.3 ?C (97.4 ?F) (Temporal) Resp 18 Ht 5' 5 (1.651 m) Wt 210 lb (95.3 kg) SpO2 99% BMI 34.95 kg/m? Pulse Ox: SpO2 Av.4 % Min: 92 % Max: 99 % Supplemental O2: O2 Flow Rate (L/min): 4 L/min 11/15/2024 General appearance: Awake alert oriented x 3, appears to be in no distress Cardiovascular: S1, S2, regular rhythm, no murmurs gallops or rubs Respiratory: Clear to auscultation bilaterally, no wheezing or rhonchi Abdomen: Benign, positive bowel sounds, soft, nontender Musculoskeletal: No edema, no calf tenderness. 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, added Lopressor Aldactone and lisinopril today Bilateral HAP rule out -abx discontinued yesterday Hypokalemia - replace potassium Leukocytosis-will monitor closely, no other signs of infection at this time Uncontrolled hypertension - added hydrochlorothiazide from tomorrow and added spironolactone , liisnopril added Delerium symptoms with underlying dementia-she also lacks capacity for medical decision making OHS/GABRIELE at bedtime bipap Episodes of nonsustained atrial fibrillation -, rate control with metoprolol and may increase to 100 mgs bid if needed Chronic problems Bipolar disorder CKD stage III with creatinine at baseline of 1.3-1.5 and creatinine clearance of 33.9 Anxiety with depressive symptoms-continue BuSpar Hx CVA with left sided sequelae Hypothyroid-continue levothyroxine T2DM hx Obesity class 2 Hx gout Hx migraines Insomnia Plan Reviewed CBC BMP and ordered CBC BMP in a.m. Replace potassium Discussed with palliative service and the family is not ready for hospice, already DNR CCA -am labs, replace lytes prn -increase activity Diet Adult diet Regular DVT Prophylaxis [x] Lovenox, [] Heparin, [] SCDs, [] Ambulation [] Already on Anticoagulation GI Prophylaxis [] PPI, [] H2 Liana, [] Carafate, [] Diet/Tube Feeds Code Status DNR-CCA Disposition Patient requires continued admission due to congestive heart failure MDM [] Low, [] Moderate,[x] High Patient's risk as above Total time spent (which include face to face and non face to face encounters) : 35 minutes Toxic drug monitoring/narrow therapeutic index drug monitoring : # Drug name : Lasix # Route administered : Intravenous # Method of monitoring : Daily BMP Extended Emergency Contact Information Primary Emergency Contact: Rosas Kwon Mobile Relation: Son Secondary Emergency Contact: Nicolette Ren Mobile Relation: Sister Advance Directive: DNR-CCA Discharge planning: TBD Ni Sam MD Division of Hospitalist Medicine [place] [place]] [2] busPIRone, 2.5 mg, Oral, BID DULoxetine (more content not included)... [facility] 11-15-2024 Note [facility] Cardiology /Electrophysiology Progress Note HPI / Interval History: Carline Villarreal is a 78-year-old female with significant dementia, diabetes, hypertension, and prior history of stroke. She presented to the hospital with shortness of breath secondary to heart failure. She was treated with Lasix IV with improvement in breathing. Troponin levels today increased from 12-124. NT proBNP was 6596. An echocardiogram last year had normal LVEF of 65%, moderate AR, mildly dilated aorta, and trivial pericardial effusion. Echo was performed 11/14 that noted new LVD with an EF of 35%. WMA's consistent with Takotsubo vs CAD. Reviewed with Dr Dueñas so we are going to adjust medications for LVD. Today she says her breathing is improved. She is having some abdominal discomfort. She is oriented to person alone. Assessment/Plan HF NYHA Class [] I [] II [] III [] IV []Unable to assess [] N/A Heart failure with reduced ejection fraction -echo 11/14 noted EF to be low at 35% (previously 65 % in December 2023). WMA's consistent with Takotsubo vs CAD. - Was diuresed with Lasix IV, will transition to hydrochlorothiazide for both BP control and diuresis -will change lopressor to toprol -will changed aldactone 25 mg from q 48 hrs to daily -will add lisinopril 20 mg daily -check BMP tomorrow to document stability of electrolytes and renal function. Hypertension - Blood pressures continue to be high. - Will add hydrochlorothiazide. - Continue Aldactone, but will change to daily - Changing metoprolol to toprol 100 mg po daily - will add lisinopril 20 mg daily Atrial fibrillation - She has had 2 episodes of nonsustained atrial fibrillation. - Plan is continue metoprolol for heart rate control. - She is not felt to be a good candidate for oral anticoagulation. -she is currently not on tele Troponin elevation -12-->124. 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 -Denies chest pain. -conservative management is recommended. She is not felt to be a candidate for invasive evaluation and management due to significant underlying dementia/debility Medications: Scheduled Meds[1] Infusion Medications: Continuous Meds[2] Physical Examination: Vitals: 11/14/24 2238 11/15/24 0047 11/15/24 0816 11/15/24 1000 BP: (!) 177/98 (!) 170/97 (!) 174/101 (!) 196/99 BP Location: Right arm Right arm Right arm Right arm Patient Position: Lying Lying Lying Lying Pulse: 92 83 98 89 Resp: 18 20 17 17 Temp: 36.1 ?C (97 ?F) 36.2 ?C (97.1 ?F) TempSrc: Temporal Temporal SpO2: 95% 97% 94% Weight: Height: Intake/Output Summary (Last 24 hours) at 11/15/2024 1005 Last data filed at 11/15/2024 0620 Gross per 24 hour Intake 240 ml Output 2 ml Net 238 ml Patient Vitals for the past 168 hrs: Weight Weight Method 11/14/24 1300 210 lb (95.3 kg) -- 11/14/24 0500 210 lb (95.3 kg) -- 11/13/242025 210 lb (95.3 kg) Bed scale 11/13/24 1315 225 lb 1.4 oz (102 kg) -- Physical Exam Constitutional: General: She is not in acute distress. Appearance: She is not diaphoretic. HENT: Head: Normocephalic. Eyes: General: Right eye: No discharge. Left eye: No discharge. Conjunctiva/sclera: Conjunctivae normal. Cardiovascular: Rate and Rhythm: Normal rate and regular rhythm. Pulmonary: Breath sounds: No wheezing or rales. Comments: Clear anteriorly Abdominal: General: Bowel sounds are normal. Palpations: Abdomen is soft. Musculoskeletal: Right lower leg: No edema. Left lower leg: No edema. Skin: General: Skin is warm and dry. Findings: No erythema or rash. Neurological: Mental Status: She is oriented to person, place, and time. Comments: Oriented to person only Psychiatric: Mood and Affect: Mood normal. Laboratory Tests: TROPONIN I, CONVENTIONAL SENSITIVITY TROPONIN I Date Value Ref Range Status 12/16/2023 <0.012 <0.034 ng/mL Final 12/16/2023 <0.012 <0.034 ng/mL Final 12/16/2023 <0.012 <0.034 ng/mL Final TROPONIN I, HIGH SENSITIVITY Troponin HS Serial Baseline Date Value Ref Range Status 11/13/2024 12 <=14 ng/L Final Comment: In individuals presenting with symptoms > 2h, a baseline troponin <= 5 ng/L suggests acute cardiac injury is unlikely and further serial testing is generally not indicated. 2h Troponin HS (Serial 2nd Troponin) Date Value Ref Range Status 11/13/2024 124 (H) <=14 ng/L Final Comment: Rising or falling troponin delta greater than 15 ng/L as compared to baseline value is significant for acute cardiac injury. No results found for: TROPDELTBASE No results found for: TROPHS3 No results found for: TROPDELTSEC Recent Labs 11/13/24 1056 11/14/24 0044 11/15/24 0550 NA 141 139 144 K 3.6 3.6 3.3* CL 105 105 107 CO2 20* 21* 22* BUN 28* 32* 40* CREATININE 1.41* 1.37* 1.56* Recent Labs 11/13/24 1056 11/13/24 1532 11/02 (more content not included)... [facility] 11-15-2024 Note Palliative Care Prog ress Note Chief Complaint: Carline Villarreal is a 78 y.o. female with chief complaint of SOB Palliative care consulted for goals of care Palliative Care is actively following Assessment/Plan Goals of care Carline Villarreal lacks capacity for medical decision-making due to dementia and encephalopathy. -legal surrogate decision maker is sonRosas (Phone: [phone]) - patient has 2 children 1 son and 1 daughter - met with patient and son Rosas this am , patient was more alert, oriented today AxOX2-3 - discussed goals, discussed hospice - Discussed the medicare hospice benefit, explained it will provide nurses, aides, massage therapy, spiritual care, social work and physicians. Discussed comfort medications and supplies will be included. Discussed goals of comfort focused care. Discussed that family will have number to call hospice 24 hours per day for concerns, that they can call hospice instead of 911. Reviewed that if patients require inpatient admission for uncontrolled symptoms they can be directly admitted to Palliative Care and Hospice Unit. - Rosas was appreciative of the information, stated at this time they want patient to go back to [facility] for PT/OT - Rosas stated that they are not ready fro hospice - provided empathetic listening and emotional support to patient and Rosas - patient already has DNRCCA established - discussed with primary team attending Dr. Mayfield, bedside RN - since family has clearly established goals for patient, our team will sign off at this time Acute hypoxic/hypercapnic respiratory failure - improved, patient off oxygen now - per pulmonology notes likely secondary to acute decompensated congestive heart failure which clinically has improved after brisk diuresis Acute on chronic HFpEF - patient volume overloaded on admission - transitioned to hydrochlorothiazide from IV lasix Atrial Fibrillation - nonsustained, 2 episodes, asymptomatic - patient is not a candidate for OAC - on metoprolol 50 mg po BID - per cardiology notes she is not a candidate for invasive evaluation and management due to significant underlying dementia/debility Dementia - patient's mentation better than yesterday, on baseline behaviors - Geriatrics on case Bipolar Disorder/Anxiety - on Duloxetine 30 mg daily, Buspar 2.5 mg BID Stroke with left hemiparesis - PT, OT on case Chronic pain - patient on Oxycodone-Acetaminophen 5/325 mg 1 tab every 8 hours as needed, Gabapentin 600 mg BID at facility - Gabapentin changed to 300 mg BID due to EDWIGE Palliative Care Encounter -Code Status: DNR-CCA - will continue to follow for ongoing monitoring of progression of Dyspnea, Pain, and Constipation as well as for appropriateness for hospice care due to Respiratory Failure and Dementia - will continue to evaluate test results related to Respiratory Failure and Dementia, medication effectiveness for Dyspnea, Pain, and Constipation, response to treatment of Respiratory Failure, Stroke, and Dementia PC Time Stamp: Total of 55 minutes spent on this encounter including Chart review, Patient visit and exam, Documentation in EHR, Care coordination, and Communicating with primary attending or other consultants. Discharge planning: Ready for discharge from Palliative Care perspective, no follow-up needed Patient meets criteria for general inpatient hospice care: No Palliative Care IDT members involved: None Discussed the plan of care with the other interdisciplinary team (IDT) members of the Palliative Care and Hospice teams and Patient, Family, Primary Attending, and Floor Nurse. Subjective: Subjective/Events Carline Villarreal is a 78 y.o. female admitted to [facility] on 11/13 for SOB. Patient seen and examined this morning. Discussed with staff. Patient was calm , quiet this morning when seen. Son Rosas at bedside. Patient was AXOx2-3. Patient denied any complains. Said her SOB is better. Patient was requesting to be discharged back to [place]. Palliative Care Assessments: Goals of care: Go back to facility for PT/OT Advanced Directives: Health Care Power of Employee Benefits Coordinator, DNR Functional Assessment: PPS 30% bedbound; can't do any work/extensive disease; total care; reduced intake; full or drowsy or confusion Prognosis: depends upon goals of care Spiritual Assessment: No spiritual distress identified Bereavement and Grief: To Be Determined PDMP/OARRS Reviewed: No Report Available Social history: Marital status: single Children: Unknown Living status: group home Work history: Retired status: No Shinto david: Adventist ROS: See palliative care ROS/ESAS below; Detail ROS unable to be obtained due to patient's mental status [place] Symptom Assessment Score [place] Score Pain Score (if non-verbal, add .FLACC below) 0 Tiredness Score 5 Nausea Score 0 Depression Score 0 Anxiety Score 0 Drowsiness Score 2 Anorexia Score (0= (more content not included)... [facility] 11-15-2024 Note OCCUPATIONAL THERAPY [facility] Initial Evaluation Name/MRN: Carline Villarreal ([id number]) Evaluation Date: 11/15/2024 Date of : 1945 Admission Date: 11/13/2024 10:39 AM Age: 78 y.o. Room/Bed: B4-466/B4-466 A Discharge Recommendation: Assisted Facility Equipment Needed: No Assessment IMPRESSION: Pt in 11/13 with acute exacerbation of chronic heart failure, PNA, SOB. She previously reports being independent for ADLs, functional transfers/mobility with a rollator. She is currently max of 1-2 for bed mobility, transfers with a front wheel walker. She requires dependent to max assist for lower body ADLs and mod assist for upper body ADLs. She is limited by increased fatigue, weakness, and complaints of abdominal pain at this time. She requires increased cueing for sequencing this date for completion of bed mobility, transfers, and toileting tasks this date. She completed partial lower body dressing task with dependent level assist overall to thread pants over bilateral lower extremities however unsafe in standing to attempt to assist with managing up over hips at this time. She would benefit from skilled OT services to address the below.-Plan discharge for SNF at this time. Admitting Diagnosis: Acute exacerbation of chronic heart failure, pneumonia, shortness of breath Performance Deficits /Impairments: Increased Pain, Decreased Functional Mobility, Decreased ADL status, Decreased Strength, Decreased Safety Awareness, Decreased Endurance, Decreased Balance, Decreased High Level IADLs, and Decreased Cognition Prognosis: Good Decision Making: Medium Complexity Subjective Pleasantly confused and cooperative. OK to see per RN. Agreeable to therapy evaluation. Pain: 0-10 pain scale: 7/10 Location: abdominal pain. 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) 01/06/2019 Recurrent major depression ([facility]) 01/06/2019 Unilateral paralysis as late effect of cerebrovascular accident (CVA) ([facility]) 01/06/2019 Migraine headache 01/06/2019 Hypothyroid 01/06/2019 Gout 01/06/2019 Gastroesophageal reflux disease 01/06/2019 Dementia (HCC) 01/06/2019 Obesity 01/06/2019 Psoriasis 01/06/2019 Cerebrovascular accident (HCC) 07/19/2017 Anxiety 07/19/2017 HTN (hypertension) 07/19/2017 Hyperlipidemia 07/19/2017 Medical Precautions: Droplet Proper PPE donned/doffed in accordance with facility standards. Fall Risk: Oleary Fall Risk Score: 60 (High Risk) Precautions/Restrictions: N/A Family/Caregiver Present: none Overall Cognitive Status: Exceptions - Following commands: follows one step commands with repetition - Attention span: attends with cues to redirect - Memory: decreased recall of recent events and decreased short term memory - Safety judgement: decreased awareness of need for assistance and decreased awareness of need for safety - Problem solving: assistance required to identify errors made and assistance required to correct errors made - Insights: decreased awareness of deficits - Initiation: requires cues for some - Sequencing: requires cues for some Overall Orientation Status: Oriented to Situation, Oriented to Person, and Disoriented to Place Social/Functional History Patient admitted from home. Lives With: Parent Type of Home: single family home Home Layout: Two Level Home and Able to Live on Main Level Home Access: Level Entry Bathroom Shower/Tub: Tub/Shower Combo, Shower Chair with Back, and Grab Bars Toilet: Handicap Height and Grab Bars Home Equipment: rollator and cane Homemaking Responsibilities: Independent Receives Help From: None Active Special Delivery Carrier: Yes Prior Level of Function Prior Level of ADL Function: Independent Prior Level of Mobility: Independent; Device: Rollator Prior Level of Transfers: Independent Objective ADLs LE Dressing: Dependent Toileting: Dependent Patient is significantly limited by increased pain, fatigue, instability, and weakness at this time. She demos poor functional reach at this time participation in ADL tasks and sitting edge of bed. Patient completed partial lower body dressing tasks this date with dependent level assist throughout hospital pants at this time. Increased assist from therapist provided to complete with patient able to count legs to assist. Adela (more content not included)... [facility] 11-14-2024 Note Family Communication Number Called: [phone] Name of Designated Family Outpatient Coder: Rosas Villarreal son/HCPOA I left a HIPPA compliant message at the number listed above Family Outpatient Coder Updated on the Following: N/A [facility] 11-14-2024 Note Referral placed to r stevanurn back to [facility] via [facility] per TCC request. Await review and response regarding ability to accept. TCC notified. [facility] 11-14-2024 Note Hospitalist Progress Note Subjective: Admit Date: 11/13/2024 PCP: Evi Guevara Room#: B4-466/B4-466 A Chief Complaint Patient presents with Shortness of Breath Pt reports SOB from SNF. Per EMS pt was at 76% on RA on arrival. EMS states HX CHF and placed pt on BiPAP for transport to ED. Brief Hospital course: 78 y.o. female Pt reports from SNF w/ SOB, reported 76% sp02 on Room Air when EMS first arrived. She was placed on BIPAP during transport to ED. Does have PMH notable for CVA with left sided sequelae, T2DM, HTN, Hypertensive CKD, Anxiety, Obesity, Migraine, Gout, Insomnia and Dementia Notable first trop 12 with delta trop HS of 124. Patient evaluated by pulm/crit care. Plan for Bipap nightly with NC during day. Imaging in ED notable for streaky opacities concerning for PNA in bilateral lobe bases Right >left and pulmonary congestion Right>left. Pneumonia rule out abx discontinued, reconsider if status change ECG in ED did have some notable T wave inversion without ST component, nonsustained afib Cardiology consulted for HF management in ED, troponin appears demand mediated. Syrian as a second language, well spoken with cognition changes 2/2 dementia/cva near baseline Rate control with beta liana 11/14, not a candidate for OAC or invasive intervention cardiac, Diuresing with improvement to room air daytime Interval History: 11/15/2024-No overnight issues. Patient having echocardiogram performed today, Now on room air, no productive cough, denies acute complaint with improved breathing. Some episodes of confusion with attempts to leave bed unassisted, redirectable, geriatrics consult for delerium in setting underlying dementia with qtc prolongation considerations. Case and plan discussed with patient and bedside nurse. All questions answered. Past Medical History: Medical History[1] Adult diet Regular 24HR INTAKE/OUTPUT: Intake/Output Summary (Last 24 hours) at 11/15/2024 0720 Last data filed at 11/15/2024 0620 Gross per 24 hour Intake 240 ml Output 2 ml Net 238 ml LABS: CBC: Recent Labs 11/13/24 1056 11/13/24 1532 11/14/24 0044 WBC 10.5 -- 10.5 RBC 4.42 -- 4.39 HGB 14.5 14.0 14.7 13.9 HCT 42.0 -- 40.5 MCV 95.0 -- 92.3 RDW 13.7 -- 13.5 PLT 261 -- 282 BMP: Recent Labs 11/13/24 1056 11/14/24 0044 NA 141 139 K 3.6 3.6 CL 105 105 CO2 20* 21* BUN 28* 32* CREATININE 1.41* 1.37* GLUCOSE 169* 248* CALCIUM 9.1 9.6 ANIONGAP 16* 13 LIVER PROFILE: Recent Labs 11/13/24 1056 AST 20 ALT 11 BILITOT 0.6 ALKPHOS 101 PROT 6.8 PT/INR: No results for input(s): PROTIME, INR in the last 72 hours. CARDIAC ENZYMES: No results for input(s): TROPONINI in the last 72 hours. Procalcitonin: Lab Results Component Value Date PROCAL 0.02 11/13/2024 COVID-19 PCR: No results for input(s): COVID19 in the last 72 hours. Objective: Vitals: BP (!) 170/97 (BP Location: Right arm, Patient Position: Lying) Pulse 83 Temp 36.1 ?C (96.9 ?F) (Temporal) Resp 20 Ht 5' 5 (1.651 m) Wt 210 lb (95.3 kg) SpO2 95% BMI 34.95 kg/m? Pulse Ox: SpO2 Av % Min: 92 % Max: 98 % Supplemental O2: O2 Flow Rate (L/min): 4 L/min Physical Exam Constitutional: Comments: Conversant and pleasantly confused with occasional inconsistent answer, HENT: Head: Normocephalic. Eyes: Extraocular Movements: Extraocular movements intact. Cardiovascular: Rate and Rhythm: Normal rate. Pulmonary: Comments: Improved respirations to room air, diminished lung lee bilateral bases, Abdominal: Palpations: Abdomen is soft. Skin: General: Skin is warm and dry. Neurological: Mental Status: She is alert. She is disoriented. Psychiatric: Comments: Some occasional confusion with efforts to leave bed Medications: Scheduled PRN Scheduled Meds[2] PRN Meds[3] Continuous Continuous Meds[4] Assessment Data: (CAT1) Reviewed 2 notes from different specialty or health system (each=1). (CAT1) Reviewed 2 labs/studies previously ordered by me not previously counted (each=1, panels count as 1). (CAT3) Mgmt of the patient was discussed with Antibiotic stewardship , who stated, in summary: Findings not supportive for PNA consider discontinuing abx regimen, on review of course in agreement for discontinuation (LOW: 2x CAT1 or independent historian MOD: 3x CAT1 or 1x CAT3 EXTENSIVE: 3x CAT1 and 1x CAT3) Acute, acute on chronic, unstable/uncontrolled chronic problems/diagnoses: CHF exacerbation Bilateral HAP rule out -abx discontinued Delerium symptoms with underlying dementia OHS/GABRIELE at bedtime bipap Episodes of nonsustained atrial fibrillation -cardiology consult Stable chronic problems affecting care, new non-acute diagnoses: Bipolar disorder Anxiety with depressive symptoms Hx CVA with left sided sequelae HTN Hypothyroid T2DM hx Obesity class 2 Hx gout Hx migraines Insomnia Plan As a result (more content not included)... [facility] 11-14-2024 Note Pharmacy to Dose Van comycin - Progress Note Recent Labs 11/13/24 1056 11/14/24 0044 BUN 28* 32* CREATININE 1.41* 1.37* Lab Results Component Value Date [facility] 16.8 11/14/2024 Doses, serum creatinine, and vancomycin levels interfaced automatically to [employer] and data has been analyzed and interpreted. Infectious Diagnosis: HAP Est CrCl: 43 mL/min (Cockcroft-Gault) Assessment: Current regimen vancomycin 1000 mg every 24 hours. Predicted AUC = 555 mg/L*hr (goal 400-600 mg/L*hr) Plan: Is the current dose therapeutic? [x] Yes - obtain next level on 11/21/24 unless predicted AUC is sub-/supra-therapeutic or change in serum creatinine. Trend serum creatinine. Trend AUC using Bayesian Modeling. Orders placed. DATE: 11/14/24 TIME: 9:41 AM Leandra Cordero RPh Pharmacist Available via Secure Chat [facility] 11-13-2024 Note [facility] Respiratory Care Department Progress Note Comment or reasoning for refusal: Patient was seen in attempts to fulfill CPAP/BiPAP/AutoPAP order. Patient refused PAP therapy/study at this time. Patient was educated on medical need and reasoning for physician order to ensure patient was making an informed medical decision. All of the patient's questions were answered at this time and patient was informed that if the patient changes their mind regarding wearing PAP to hit their call light or inform their nurse to contact Respiratory. A second, consecutive night of refusing PAP therapy/study results in order completion in the EMR. If future CPAP/BiPAP/AutoPAP therapy or study is indicated please place another order in the EMR and the assigned Respiratory Therapist will reattempt to fulfill orders. Thank you for involving Respiratory in the care of this patient, [facility] 11-13-2024 History and physical note Attending History and Physical Admit Date: 11/13/2024 PCP: Evi Guevara CHIEF COMPLAINT: SOB Reason for Admission: PNA Lower lobes History Obtained From: patient, chart, staff HISTORY OF PRESENT ILLNESS: Carline is a 78 y.o. female with past medical history below who presents with chief complaint listed above. Pt reports from SNF w/ SOB, reported 76% sp02 on Room Air when EMS first arrived. She was placed on BIPAP during transport to ED. Does have PMH notable for CVA with left sided sequelae, T2DM, HTN, Hypertensive CKD, Anxiety, Obesity, Migraine, Gout, Insomnia and Dementia She is awake and cooperative in ED Notable first trop 12 with delta trop HS of 124. Notable first ABG appears more consistent with VBG acidotic, on repeat ok for floor. Patient evaluated by pulm/crit care. Plan for Bipap nightly with NC during day. Imaging in ED notable for streaky opacities concerning for PNA in bilateral lobe bases Right >left and pulmonary congestion Right>left. She denies any chest pain or palpitations, no headache, nausea vomiting, vision change, (baseline dementia w/o exacerbation) ECG in ED did have some notable T wave inversion without ST component. Cardiology consulted for HF management in ED, troponin appears demand mediated. Will admit for further evaluation and management. Past Medical History: Past Medical History: Diagnosis Date Diabetes mellitus (HCC) Hypertension Stroke (HCC) Past Surgical History: No past surgical history on file. Social History: Social History Socioeconomic History Marital status: Spouse name: Not on file Number of children: Not on file Years of education: Not on file Highest education level: Not on file Occupational History Not on file Tobacco Use Smoking status: Some Days Types: Cigarettes Smokeless tobacco: Not on file Substance and Sexual Activity Alcohol use: Not Currently Drug use: Not Currently Sexual activity: Not on file Other Topics Concern Not on file Social History Narrative Not on file Social Drivers of Health Financial Resource Strain: Not on file Food Insecurity: Patient Unable To Answer (12/16/2023) Hunger Vital Sign Worried About Running Out of Food in the Last Year: Patient unable to answer Ran Out of Food in the Last Year: Patient unable to answer Transportation Needs: Patient Unable To Answer (12/16/2023) PRAPARE - Transportation Lack of Transportation (Medical): Patient unable to answer Lack of Transportation (Non-Medical): Patient unable to answer Physical Activity: Not on file Stress: Not on file Social Connections: Not on file Intimate Partner Violence: Patient Unable To Answer (12/16/2023) Humiliation, Afraid, Rape, and Kick questionnaire Fear of Current or Ex-Partner: Patient unable to answer Emotionally Abused: Patient unable to answer Physically Abused: Patient unable to answer Sexually Abused: Patient unable to answer Housing Stability: Patient Unable To Answer (12/16/2023) Housing Stability Vital Sign Unable to Pay for Housing in the Last Year: Patient unable to answer Number of Places Lived in the Last Year: 1 Unstable Housing in the Last Year: Patient unable to answer Family History: No family history on file. Medications Prior to Admission: Current Facility-Administered Medications: vancomycin in NS (Vancocin) IVPB 2,000 mg, 20 mg/kg, IntraVENous, Once, Loly Saleem PA-C, Last Rate: 250 mL/hr at 05/12/25 1335, 2,000 mg at 11/13/24 1335 Current Outpatient Medications: acetaminophen (Tylenol) 325 MG tablet, Take 650 mg by mouth every 6 hours as needed for mild pain (1-3), moderate pain (4-6) or fever., Disp: , Rfl: aluminum-magnesium hydroxide-simethicone (Maalox MAX) 400-400-40 MG/5ML suspension, Take 10 mL by mouth every 4 hours as needed for indigestion or heartburn., Disp: , Rfl: atorvastatin (Lipitor) 40 MG tablet, Take 40 mg by mouth daily., Disp: , Rfl: bisacodyl (Dulcolax) 5 MG EC tablet, Take 5 mg by mouth Daily as needed for constipation. Do not crush, chew, or split., Disp: , Rfl: bisacodyl (Dulcolax) 5 MG EC tablet, Take 5 mg by mouth Daily as needed for constipation. Do not crush, chew, or split., Disp: , Rfl: busPIRone (Buspar) 5 MG tablet, Take 2.5 mg by mouth 2 times daily., Disp: , Rfl: cloNIDine (Catapres) 0.2 MG tablet, Take 0.2 mg by mouth 2 times daily., Disp: , Rfl: clopidogrel (Plavix) 75 MG tablet, Take 75 mg by mouth daily., Disp: , Rfl: DULoxetine (Cymbalta) [address] capsule, Take 30 mg by mouth daily. Do not crush or chew., Disp: , Rfl: escitalopram (Lexapro) 10 MG tablet, Take 10 mg by mouth daily., Disp: , Rfl: famotidine (Pepcid) 20 MG tablet, Take 20 mg by mouth daily., Disp: , Rfl: gabapentin (Neurontin) 300 MG capsule, Take 300 mg by mouth 2 times daily., Disp: , Rfl: hydrALAZINE (Apresoline) 25 MG tablet, Take 25 mg by mouth every 8 hours as needed (systolic over 160)., Disp: , Rfl: hydroCHLOROthiazide (HYDRODiuril) 50 MG tablet, Take 50 mg by mouth daily., Disp: , Rfl: ibuprofen 200 MG tablet, Take 400 mg by mouth in the morning and 400 mg at noon and 400 mg in the evening and 400 mg before bedtime. Give adequate fluid and food with medication to minimize GI irritation ., Disp: , Rfl: levothyroxine (Synthroid, Levoxyl) 50 MCG tablet, Take 50 mcg by mouth every morning (before breakfast)., Disp: , Rfl: lisinopril 5 MG tablet, Take 5 mg by mouth daily., Disp: , Rfl: magnesium hydroxide (Milk of Magnesia) 400 MG/5ML suspension, Take 30 mL by mouth Daily as needed for constipation. If no bm in 3 days, Disp: , Rfl: melatonin 1 MG tablet, Take 3 mg by mouth Nightly., Disp: , Rfl: metoprolol tartrate (Lopressor) 50 MG tablet, Take 50 mg by mouth 2 times daily. Hold for SBP<100, HR <55, Disp: , Rfl: oxyCODONE-acetaminophen (Percocet) 5-325 MG tablet, Take 1 tablet by mouth every 8 hours as needed (for pain)., Disp: , Rfl: polyethylene glycol, PEG, 3350 (Miralax) 17 g packet, Take 17 g by mouth Once., Disp: , Rfl: SUMAtriptan (Imitrex) 50 MG tablet, Take 50 mg by mouth every 6 hours as needed for migraine., Disp: , Rfl: traMADol (Ultram) 50 MG tablet, Take 50 mg by mouth every 6 hours as needed for severe pain (7-10) or moderate pain (4-6). Monitor signs and symptoms of delirium, over sedation, change in mental status and reduced respirations, Disp: , Rfl: Medications Reconciliation: Medications were reviewed in chart but unable to verify accurate with patient Allergies: No Known Allergies REVIEW OF SYSTEMS: See hpi Vitals: BP (!) 186/94 Pulse 96 Temp 36.8 C (98.2 F) (Oral) Resp 16 Wt 225 lb 1.4 oz (102 kg) SpO2 94% BMI 36.33 kg/m BMI Classification: Obese (BMI 30.0-39.9) Pulse Ox: SpO2 Av % Min: 94 % Max: 100 % Supplemental O2: O2 Flow Rate (L/min): 4 L/min PHYSICAL EXAM: Physical Exam Constitutional: Appearance: She is obese. Comments: Pleasant, Cooperative, no acute confusion (baseline dementia appears unaggravated), HENT: Head: Normocephalic. Eyes: Extraocular Movements: Extraocular movements intact. Cardiovascular: Rate and Rhythm: Tachycardia present. Pulmonary: Comments: Notable wheezing bilateral upper lung lee, faint crackle at bilateral base, greatly diminished lung sounds of lower lee relative to upper Skin: General: Skin is warm and dry. Neurological: Mental Status: She is alert. Mental status is at baseline. Psychiatric: Mood and Affect: Mood normal. Behavior: Behavior normal. DATA: CBC: Recent Labs 11/13/24 1056 WBC 10.5 RBC 4.42 HGB 14.5 14.0 HCT 42.0 MCV 95.0 RDW 13.7 PLT 261 BMP: Recent Labs 11/13/24 1056 NA 141 K 3.6 CL 105 CO2 20* BUN 28* CREATININE 1.41* GLUCOSE 169* CALCIUM 9.1 ANIONGAP 16* LIVER PROFILE: Recent Labs 11/13/24 1056 AST 20 ALT 11 BILITOT 0.6 ALKPHOS 101 PROT 6.8 PT/INR: No results for input(s): PROTIME, INR in the last 72 hours. CARDIAC ENZYMES: No results for input(s): TROPONINI in the last 72 hours. Procalcitonin: No results found for: PROCAL Urine Culture: No results found for this or any previous visit. COVID-19 PCR: No results for input(s): COVID19 in the last 72 hours. I reviewed: [x] laboratory results [x] radiographic results At the time of today's encounter. Pt was advised of the results. Data: (CAT1) Reviewed 2 notes from different specialty or health system (each=1). (CAT1) Reviewed 3 or more labs/studies ordered by another provider not previously counted (each=1, panels count as 1). (CAT1) Ordered 2 new labs and/or studies (each=1, panels count as 1). (CAT3) Discussed with ED provider, Dr. Peralta, regarding patient's eval & mgmt thus far, and agree with the plan for hospitalization. (LOW: 2x CAT1 or independent historian MOD: 3x CAT1 or 1x CAT3 EXTENSIVE: 3x CAT1 and 1x CAT3) Assessment Discussed management with the ED provider and agree with hospitalization. Acute, acute on chronic, unstable/uncontrolled chronic problems/diagnoses: Bilateral PNA (HAP) -vancomycin and zosyn started 11/13 Pulmonay congestion HF exacerbation GABRIELE/OHS concern placed on bedtime Bipap Stable chronic problems affecting care, new non-acute diagnoses: CVA with left sided sequelae T2DM HTN Hypertensive CKD , with components diabetic nephropathy Anxiety Obesity Class 2 Migraine Gout Insomnia Dementia Plan As a result of the above findings & factors, the following mgmt was pursued: - GMF - Pulm consult to follow, eval by Crit care in ER -plan for bipap at bedtime - home meds as ordered, will need verification - Vancomycin-zosyn - IV lasix pending cardiology recs - pending PNA pcr, Sputum cx, Blood cx - Active delerium precautions - am labs, replace lytes prn - PT/OT/CM/SW - delirium precautions: increase activity, schedule melatonin at bedtime, limit nighttime disturbances, and avoid anticholinergic meds, benzos, etc - DVT prophylaxis: enoxaparin and encourage ambulation Complexity: Acute illness or injury posing a threat to life or body function (HIGH). Chronic illness with severe exacerbation, progression, or side effect of tx (HIGH). Multiple stable chronic illnesses (MOD). Risk: Use/consideration of a high risk treatment or study: imaging requiring IV contrast or IV sedation (HIGH). Admission to hospital-level care was considered or occurred (HIGH). Escalation of care to ICU was considered or occurred (HIGH). Prescription drug/IVF/colloid was initiated, discontinued, adjusted; or reviewed with decision to maintain current orders (MOD). Advance Directive: Prior Anticipated Discharge - Date - 11/18 - Location - Skilled Facility - Pending the following - Specialist recs, improved dyspnea, final abx regimen Total time spent (which include face to face and non face to face encounters) : 62 minutes. Extended Emergency Contact Information Primary Emergency Contact: Rosas Kwon Mobile Relation: Son Secondary Emergency Contact: Nicolette Ren Mobile Relation: Sister Dominguez Franz MD Division of Hospital Medicine [place] [place] in this encounter [facility] 11-13-2024 Note Attending History an d Physical Admit Date: 11/13/2024 PCP: Evi Guevara CHIEF COMPLAINT: SOB Reason for Admission: PNA Lower lobes History Obtained From: patient, chart, staff HISTORY OF PRESENT ILLNESS: Carline is a 78 y.o. female with past medical history below who presents with chief complaint listed above. Pt reports from SNF w/ SOB, reported 76% sp02 on Room Air when EMS first arrived. She was placed on BIPAP during transport to ED. Does have PMH notable for CVA with left sided sequelae, T2DM, HTN, Hypertensive CKD, Anxiety, Obesity, Migraine, Gout, Insomnia and Dementia She is awake and cooperative in ED Notable first trop 12 with delta trop HS of 124. Notable first ABG appears more consistent with VBG acidotic, on repeat ok for floor. Patient evaluated by pulm/crit care. Plan for Bipap nightly with NC during day. Imaging in ED notable for streaky opacities concerning for PNA in bilateral lobe bases Right >left and pulmonary congestion Right>left. She denies any chest pain or palpitations, no headache, nausea vomiting, vision change, (baseline dementia w/o exacerbation) ECG in ED did have some notable T wave inversion without ST component. Cardiology consulted for HF management in ED, troponin appears demand mediated. Will admit for further evaluation and management. Past Medical History: Past Medical History: Diagnosis Date Diabetes mellitus (HCC) Hypertension Stroke (HCC) Past Surgical History: No past surgical history on file. Social History: Social History Socioeconomic History Marital status: Spouse name: Not on file Number of children: Not on file Years of education: Not on file Highest education level: Not on file Occupational History Not on file Tobacco Use Smoking status: Some Days Types: Cigarettes Smokeless tobacco: Not on file Substance and Sexual Activity Alcohol use: Not Currently Drug use: Not Currently Sexual activity: Not on file Other Topics Concern Not on file Social History Narrative Not on file Social Drivers of Health Financial Resource Strain: Not on file Food Insecurity: Patient Unable To Answer (12/16/2023) Hunger Vital Sign Worried About Running Out of Food in the Last Year: Patient unable to answer Ran Out of Food in the Last Year: Patient unable to answer Transportation Needs: Patient Unable To Answer (12/16/2023) PRAPARE - Transportation Lack of Transportation (Medical): Patient unable to answer Lack of Transportation (Non-Medical): Patient unable to answer Physical Activity: Not on file Stress: Not on file Social Connections: Not on file Intimate Partner Violence: Patient Unable To Answer (12/16/2023) Humiliation, Afraid, Rape, and Kick questionnaire Fear of Current or Ex-Partner: Patient unable to answer Emotionally Abused: Patient unable to answer Physically Abused: Patient unable to answer Sexually Abused: Patient unable to answer Housing Stability: Patient Unable To Answer (12/16/2023) Housing Stability Vital Sign Unable to Pay for Housing in the Last Year: Patient unable to answer Number of Places Lived in the Last Year: 1 Unstable Housing in the Last Year: Patient unable to answer Family History: No family history on file. Medications Prior to Admission: Current Facility-Administered Medications: vancomycin in NS (Vancocin) IVPB 2,000 mg, 20 mg/kg, IntraVENous, Once, Loly Saleem PA-C, Last Rate: 250 mL/hr at 11/13/24 1335, 2,000 mg at 11/13/24 1335 Current Outpatient Medications: acetaminophen (Tylenol) 325 MG tablet, Take 650 mg by mouth every 6 hours as needed for mild pain (1-3), moderate pain (4-6) or fever., Disp: , Rfl: aluminum-magnesium hydroxide-simethicone (Maalox MAX) 400-400-40 MG/5ML suspension, Take 10 mL by mouth every 4 hours as needed for indigestion or heartburn., Disp: , Rfl: atorvastatin (Lipitor) 40 MG tablet, Take 40 mg by mouth daily., Disp: , Rfl: bisacodyl (Dulcolax) 5 MG EC tablet, Take 5 mg by mouth Daily as needed for constipation. Do not crush, chew, or split., Disp: , Rfl: bisacodyl (Dulcolax) 5 MG EC tablet, Take 5 mg by mouth Daily as needed for constipation. Do not crush, chew, or split., Disp: , Rfl: busPIRone (Buspar) 5 MG tablet, Take 2.5 mg by mouth 2 times daily., Disp: , Rfl: cloNIDine (Catapres) 0.2 MG tablet, Take 0.2 mg by mouth 2 times daily., Disp: , Rfl: clopidogrel (Plavix) 75 MG tablet, Take 75 mg by mouth daily., Disp: , Rfl: DULoxetine (Cymbalta) [address] capsule, Take 30 mg by mouth daily. Do not crush or chew., Disp: , Rfl: escitalopram (Lexapro) 10 MG tablet, Take 10 mg by mouth daily., Disp: , Rfl: famotidine (Pepcid) 20 MG tablet, Take 20 mg by mouth daily., Disp: , Rfl: gabapentin (Neurontin) 300 MG capsule, Take 300 mg by mouth 2 times daily., Disp: , Rfl: hydrALAZINE (Apresoline) 25 MG tablet, Take 25 mg by mouth every 8 hours as needed (systolic over 160)., Disp: , Rfl: hydroCHLOROthiazide (HYDRODi (more content not included)... [facility] 11-13-2024 Emergency department Note [facility] 4S eMERGENCY dEPARTMENT eNCOUnter Pt Name: Carline Villarreal Birthdate 1945 Date of evaluation: 11/13/2024 Provider: Loly Saleem PA-C CHIEF COMPLAINT Chief Complaint Patient presents with Shortness of Breath Pt reports SOB from SNF. Per EMS pt was at 76% on RA on arrival. EMS states HX CHF and placed pt on BiPAP for transport to ED. HISTORY OF PRESENT ILLNESS (Location/Symptom, Timing/Onset,Context/Setting, Quality, Duration, Modifying Factors, Severity) Note limiting factors. HPI This patient is seen in conjunction with Dr. Peralta also interviewed and evaluate the patient at bedside. Carline Villarreal is a 78 y.o. female who presents to the emergency department by way of local EMS from a intermediate facility. Patient states she was coughing a lot today and became short of breath. custodial staff relayed that patient's pulse oximetry was in the 70s. They did give her 2 DuoNeb aerosol treatments and rescue squad was called. When rescue squad arrived they placed her on CPAP temporarily. Patient states that cough just began today. She denies any chest pain. She states she feels just a little bit short of breath at the time of my interview. Nursing Notes were reviewed. REVIEW OF SYSTEMS (2+ for4; 10+ for level 5) Review of Systems Constitutional: Negative for chills and fever. HENT: Negative for ear pain and sore throat. Eyes: Negative for pain and visual disturbance. Respiratory: Positive for cough and shortness of breath. Cardiovascular: Negative for chest pain and palpitations. Gastrointestinal: Negative for abdominal pain and vomiting. Genitourinary: Negative for dysuria and hematuria. Musculoskeletal: Negative for arthralgias and back pain. Skin: Negative for color change and rash. Neurological: Negative for seizures and syncope. All other systems reviewed and are negative. PAST MEDICAL HISTORY Past Medical History: Diagnosis Date Diabetes mellitus (HCC) Hypertension Stroke (HCC) SURGICALHISTORY No past surgical history on file. CURRENT MEDICATIONS Current Discharge Medication List CONTINUE these medications which have NOT CHANGED Details acetaminophen (Tylenol) 325 MG tablet Take 650 mg by mouth every 6 hours as needed for mild pain (1-3), moderate pain (4-6) or fever. aluminum-magnesium hydroxide-simethicone (Maalox MAX) 400-400-40 MG/5ML suspension Take 10 mL by mouth every 4 hours as needed for indigestion or heartburn. atorvastatin (Lipitor) 40 MG tablet Take 40 mg by mouth daily. !! bisacodyl (Dulcolax) 5 MG EC tablet Take 5 mg by mouth Daily as needed for constipation. Do not crush, chew, or split. !! bisacodyl (Dulcolax) 5 MG EC tablet Take 5 mg by mouth Daily as needed for constipation. Do not crush, chew, or split. busPIRone (Buspar) 5 MG tablet Take 2.5 mg by mouth 2 times daily. cloNIDine (Catapres) 0.2 MG tablet Take 0.2 mg by mouth 2 times daily. clopidogrel (Plavix) 75 MG tablet Take 75 mg by mouth daily. DULoxetine (Cymbalta) [address] capsule Take 30 mg by mouth daily. Do not crush or chew. escitalopram (Lexapro) 10 MG tablet Take 10 mg by mouth daily. famotidine (Pepcid) 20 MG tablet Take 20 mg by mouth daily. gabapentin (Neurontin) 300 MG capsule Take 300 mg by mouth 2 times daily. hydrALAZINE (Apresoline) 25 MG tablet Take 25 mg by mouth every 8 hours as needed (systolic over 160). ibuprofen 200 MG tablet Take 400 mg by mouth in the morning and 400 mg at noon and 400 mg in the evening and 400 mg before bedtime. Give adequate fluid and food with medication to minimize GI irritation . levothyroxine (Synthroid, Levoxyl) 50 MCG tablet Take 50 mcg by mouth every morning (before breakfast). lisinopril 5 MG tablet Take 5 mg by mouth daily. magnesium hydroxide (Milk of Magnesia) 400 MG/5ML suspension Take 30 mL by mouth Daily as needed for constipation. If no bm in 3 days melatonin 1 MG tablet Take 3 mg by mouth Nightly. metoprolol tartrate (Lopressor) 50 MG tablet Take 50 mg by mouth 2 times daily. Hold for SBP<100, HR <55 oxyCODONE-acetaminophen (Percocet) 5-325 MG tablet Take 1 tablet by mouth every 8 hours as needed (for pain). polyethylene glycol, PEG, 3350 (Miralax) 17 g packet Take 17 g by mouth Once. SUMAtriptan (Imitrex) 50 MG tablet Take 50 mg by mouth every 6 hours as needed for migraine. traMADol (Ultram) 50 MG tablet Take 50 mg by mouth every 6 hours as needed for severe pain (7-10) or moderate pain (4-6). Monitor signs and symptoms of delirium, over sedation, change in mental status and reduced respirations !! - Potential duplicate medications found. Please discuss with provider. Patient has no known allergies. FAMILY HISTORY No family history on file. SOCIAL HISTORY Social History Socioeconomic History Marital status: Tobacco Use Smoking status: Some Days Types: Cigarettes Substance and Sexual Activity Alcohol use: Not Currently Drug use: Not Currently Social Drivers of Health Food Insecurity: Patient Unable To Answer (12/16/2023) Hunger Vital Sign Worried About Running Out of Food in the Last Year: Patient unable to answer Ran Out of Food in the Last Year: Patient unable to answer Transportation Needs: Patient Unable To Answer (12/16/2023) PRAPARE - Transportation Lack of Transportation (Medical): Patient unable to answer Lack of Transportation (Non-Medical): Patient unable to answer Intimate Partner Violence: Patient Unable To Answer (12/16/2023) Humiliation, Afraid, Rape, and Kick questionnaire Fear of Current or Ex-Partner: Patient unable to answer Emotionally Abused: Patient unable to answer Physically Abused: Patient unable to answer Sexually Abused: Patient unable to answer Housing Stability: Patient Unable To Answer (12/16/2023) Housing Stability Vital Sign Unable to Pay for Housing in the Last Year: Patient unable to answer Number of Places Lived in the Last Year: 1 Unstable Housing in the Last Year: Patient unable to answer SCREENINGS PHYSICAL EXAM (5+ for level 4, 8+ for level 5) @[email or web address]@ Physical Exam Vitals and nursing note reviewed. Constitutional: General: She is not in acute distress. Appearance: She is well-developed. She is obese. She is not ill-appearing. HENT: Head: Normocephalic and atraumatic. Eyes: Conjunctiva/sclera: Conjunctivae normal. Cardiovascular: Rate and Rhythm: Normal rate and regular rhythm. Heart sounds: No murmur heard. Pulmonary: Effort: Pulmonary effort is normal. No respiratory distress. Breath sounds: Examination of the right-upper field reveals wheezing. Examination of the left-upper field reveals wheezing. Examination of the right-middle field reveals wheezing. Examination of the left-middle field reveals wheezing. Examination of the right-lower field reveals wheezing. Examination of the left-lower field reveals wheezing. Wheezing present. Comments: Patient has diffuse coarse expiratory wheezing heard throughout all lung lee. Abdominal: Palpations: Abdomen is soft. Tenderness: There is no abdominal tenderness. Musculoskeletal: General: No swelling. Skin: General: Skin is warm and dry. Neurological: Mental Status: She is alert. Psychiatric: Mood and Affect: Mood normal. DIAGNOSTIC RESULTS EKG (Per Emergency Physician): RADIOLOGY (Per EmergencyPhysician): Interpretation per the Radiologist below, if available at the time of this note: @[email or web address]@ : Labs Reviewed CBC WITH AUTO DIFFERENTIAL - Abnormal Result Value Auto WBC 10.5 RBC 4.42 Hemoglobin 14.0 Hematocrit 42.0 MCV 95.0 MCH 31.7 MCHC 33.3 RDW 13.7 Platelets 261 MPV 10.4 nRBC 0.0 Neutrophils Relative 70.5 Lymphocytes Relative 17.4 Monocytes Relative 5.2 Eosinophils Relative 5.8 Basophils Relative 0.5 Immature Grans % 0.6 Neutrophils Absolute 7.4 Lymphocytes Absolute 1.8 Monocytes Absolute 0.5 Eosinophils Absolute 0.6 (*) Basophils Absolute 0.1 Immature Grans Absolute 0.1 (*) COMPREHENSIVE METABOLIC PANEL - Abnormal SODIUM 141 POTASSIUM 3.6 CHLORIDE 105 CARBON DIOXIDE 20 (*) ANION GAP 16 (*) UREA NITROGEN 28 (*) CREATININE 1.41 (*) GLUCOSE 169 (*) CALCIUM 9.1 AST (SGOT) 20 ALT 11 ALKALINE PHOSPHATASE 101 ALBUMIN 3.5 BILIRUBIN, TOTAL 0.6 TOTAL PROTEIN 6.8 eGFR 38.3 (*) BLOOD GAS, VENOUS - Abnormal pH, Venous 7.229 (*) pCO2, Venous 55.8 (*) pO2, Venous 32.9 HCO3, Venous 22.8 O2 Sat, Venous 55.4 Base Excess, Venous -5.5 (*) Hgb, blood gas 14.5 TCO2, Venous 24.5 Source Of Oxygen Nasal Cannula (LPM) Amount Of Oxygen Narrative: Assessment of oxygenation is best done with an arterial blood gas determination. Reference ranges for pO2, bicarbonate, and base excess are for mixed venous blood. Specimens drawn from a peripheral vein will often have higher values. NT PRO BNP - Abnormal NT PRO BNP 6,596 (*) HIGH SENSITIVITY TROPONIN, SERIAL, SECOND TEST - Abnormal 2h Troponin HS (Serial 2nd Troponin) 124 (*) BLOOD GAS, VENOUS - Abnormal pH, Venous 7.404 pCO2, Venous 30.8 (*) pO2, Venous 47.3 HCO3, Venous 18.8 (*) O2 Sat, Venous 84.2 Base Excess, Venous -4.7 (*) Hgb, blood gas 14.7 TCO2, Venous 19.8 (*) Source Of Oxygen Nasal Cannula (LPM) Amount Of Oxygen Narrative: Assessment of oxygenation is best done with an arterial blood gas determination. Reference ranges for pO2, bicarbonate, and base excess are for mixed venous blood. Specimens drawn from a peripheral vein will often have higher values. CBC WITH AUTO DIFFERENTIAL - Abnormal Auto WBC 10.5 RBC 4.39 Hemoglobin 13.9 Hematocrit 40.5 MCV 92.3 MCH 31.7 MCHC 34.3 RDW 13.5 Platelets 282 MPV 10.6 nRBC 0.0 Neutrophils Relative 89.8 (*) Lymphocytes Relative 7.5 (*) Monocytes Relative 2.2 (*) Eosinophils Relative 0.0 Basophils Relative 0.1 Immature Grans % 0.4 Neutrophils Absolute 9.4 (*) Lymphocytes Absolute 0.8 (*) Monocytes Absolute 0.2 Eosinophils Absolute 0.0 Basophils Absolute 0.0 Immature Grans Absolute 0.0 BASIC METABOLIC PANEL - Abnormal SODIUM 139 POTASSIUM 3.6 CHLORIDE 105 CARBON DIOXIDE 21 (*) UREA NITROGEN 32 (*) CREATININE 1.37 (*) GLUCOSE 248 (*) CALCIUM 9.6 ANION GAP 13 eGFR 39.6 (*) POCT GLUCOSE METER UNSOLICITED RESULTS - Abnormal Glucose 175 (*) Narrative: Performed by: [facility], [address] [facility] [address] CLIA ID: [id number] POCT GLUCOSE METER UNSOLICITED RESULTS - Abnormal Glucose 231 (*) Narrative: [facility]formed [facility]: [facility], [address] [facility] [address] CLIA ID: [id number] SARS-COV-2, FLU A/B, AND RSV COMBO - Normal SARS-CoV-2 Not Detected Respiratory Syncytial Virus Not Detected Influenza A Not Detected Influenza B Not Detected Narrative: Methodology: real-time, RT-PCR The SARS-CoV-2, Flu A/B, and RSV Combo assay is intended for in vitro diagnostic use under the FDA Emergency Use Authorization (EUA). This test has not been FDA cleared or approved. In compliance with this authorization, please visit www.fda.gov/media/100507/download or www.fda.gov/media/797020/download to access the applicable information sheets. BLOOD CULTURE - Normal Blood Culture No growth at 24 hours Narrative: Blood Collection Site: Left Arm BLOOD CULTURE - Normal Blood Culture No growth at 24 hours Narrative: Blood Collection Site: Right Hand HIGH SENSITIVITY TROPONIN, SERIAL BASELINE - Normal Troponin HS Serial Baseline 12 PROCALCITONIN TEST - Normal PROCALCITONIN 0.02 Narrative: PCT <0.50 = Low risk of severe sepsis and/or septic shock. PCT >2.00 = High risk of severe sepsis and/or septic shock. PNEUMONIA PCR PANEL LEGIONELLA AND STREPTOCOCCUS URINE ANTIGEN, ORDERABLE Narrative: The following orders were created for panel order Legionella and Streptococcus Urine Antigen. Procedure Abnormality Status --------- ------ Legionella and Streptoco...[[id number]] Urine Hold Cup[[id number]] Please view results for these tests on the individual orders. RESPIRATORY CULTURE AND STAIN LEGIONELLA AND STREPTOCOCCUS URINE ANTIGEN BASIC METABOLIC PANEL WITH MG REFLEX Narrative: The following orders were created for panel order Basic Metabolic Panel w/ Mg Reflex. Procedure Abnormality Status --------- ------ Basic metabolic panel[[id number]] Abnormal Final result Please view results for these tests on the individual orders. VANCOMYCIN, AUC TIMED DOSING VANCOMYCIN, AUC 16.8 Narrative: Toxicity is seen at concentrations >80-100 ug/mL Therapeutic (Peak) range: 20-40 Therapeutic (Trough) range: 5-10 HEMOGLOBIN A1C HEMOGLOBIN A1C 5.5 ESTIMATED AVERAGE GLUCOSE 111 Narrative: HbA1c values of 5.7-6.4 percent indicate an increased risk for developing diabetes mellitus. HbA1c values greater than or equal to 6.5 percent are diagnostic of diabetes mellitus. For diagnosis of diabetes in individuals without unequivocal hyperglycemia, results should be confirmed by repeat testing. URINE HOLD CUP POCT GLUCOSE METER POCT GLUCOSE METER POCT GLUCOSE METER All other labs were within normal range or not returned as of this dictation. EMERGENCY DEPARTMENT COURSE and DIFFERENTIALDIAGNOSIS/MDM: Vitals: Vitals: 11/14/24 0019 11/14/24 0500 11/14/24 0821 11/14/24 1300 BP: 134/82 BP Location: Right arm Patient Position: Lying Pulse: 93 95 Resp: 17 Temp: 36.5 C (97.7 F) TempSrc: Temporal SpO2: 98% Weight: 95.3 kg (210 lb) 95.3 kg (210 lb) Height: 1.651 m (5' 5) Medications aluminum & magnesium hydroxide-simethicone (Mylanta) 200-200-20 MG/5ML oral suspension 10 mL (has no administration in time range) SUMAtriptan (Imitrex) tablet 50 mg (has no administration in time range) magnesium hydroxide (Milk of Magnesia) 400 MG/5ML suspension 30 mL (has no administration in time range) melatonin tablet 3 mg (3 mg Oral Not Given 11/13/242125) acetaminophen (Tylenol) tablet 650 mg (650 mg Oral Given 11/13/242119) Or acetaminophen (Tylenol) suppository 650 mg ( Rectal See Alternative 11/13/242119) ondansetron ODT (Zofran-ODT) disintegrating tablet 4 mg (has no administration in time range) Or ondansetron (Zofran) injection 4 mg (has no administration in time range) polyethylene glycol (PEG) 3350 (Miralax) packet 17 g (has no administration in time range) enoxaparin (Lovenox) syringe 40 mg (40 mg SubCUTAneous Given 11/13/242119) haloperidol lactate (Haldol) injection 0.5 mg (has no administration in time range) melatonin tablet 3 mg (3 mg Oral Given 11/13/242120) phenol (Chloraseptic) 1.4 % mouth/throat spray 1 spray (has no administration in time range) lidocaine (Xylocaine) 2 % mouth solution 15 mL (has no administration in time range) zpuwkce-nzuraeoeydfxv-fgaqwide (Excedrin Migraine) 250-250-65 MG per tablet 2 tablet (2 tablets Oral Given 11/13/241837) busPIRone (Buspar) tablet 2.5 mg (2.5 mg Oral Given 11/14/24822) hydrALAZINE (Apresoline) tablet 25 mg (has no administration in time range) metoprolol tartrate (Lopressor) tablet 50 mg (50 mg Oral Given 11/14/24822) levothyroxine (Synthroid, Levoxyl) tablet 50 mcg (50 mcg Oral Given 11/14/24 0614) DULoxetine (Cymbalta) DR capsule 30 mg (30 mg Oral Given 11/14/24822) famotidine (Pepcid) tablet 20 mg (20 mg Oral Given 11/14/24821) gabapentin (Neurontin) capsule 300 mg (300 mg Oral Given 11/14/24821) ipratropium-albuterol (Duo-Neb) 0.5-2.5 mg/3 mL nebulizer solution 3 mL (has no administration in time range) oxyCODONE-acetaminophen (Percocet) 5-325 MG per tablet 1 tablet (has no administration in time range) naloxone (Narcan) injection 0.4 mg (has no administration in time range) Insulin Lispro (Humalog) injection 0-12 Units (4 Units SubCUTAneous Given 11/14/24 1229) And Insulin Lispro (Humalog) injection 0-12 Units (has no administration in time range) glucose oral gel 15 g (has no administration in time range) dextrose 50 % solution 12.5 g (has no administration in time range) glucagon (human recombinant) injection 1 mg (has no administration in time range) dextrose 5 % infusion (has no administration in time range) spironolactone (Aldactone) tablet 25 mg (25 mg Oral Given 11/14/24 1108) methylPREDNISolone sodium succinate (PF) (SOLU-Medrol) injection 125 mg (125 mg IntraVENous Given 11/13/24 1114) vancomycin in NS (Vancocin) IVPB 2,000 mg (0 mg IntraVENous Stopped 11/13/24 1601) piperacillin-tazobactam (Zosyn) 4,500 mg in sodium chloride 0.9 % 100 mL IVPB Mini-Bag Plus (0 mg IntraVENous Stopped 11/13/24 1421) furosemide (Lasix) injection 20 mg (20 mg IntraVENous Given 11/13/24 1315) acetaminophen (Tylenol) tablet 650 mg (650 mg Oral Given 11/13/24 1315) furosemide (Lasix) injection 40 mg (40 mg IntraVENous Given 11/14/24 0824) perflutren protein A microsphere (Optison) 3 mL in sodium chloride (PF) 0.9 % 10 mL IV (1 mL IntraVENous Given 11/14/24 1434) Medical Decision Making Problems Addressed: Acute electrocardiogram changes: complicated acute illness or injury Acute kidney injury (nontraumatic) (CMS/HCC) (HCC): complicated acute illness or injury Congestive heart failure, unspecified HF chronicity, unspecified heart failure type (HCC): complicated acute illness or injury Hypercapnia: complicated acute illness or injury Pneumonia of both lower lobes due to infectious organism: complicated acute illness or injury Amount and/or Complexity of Data Reviewed Labs: ordered. Radiology: ordered. ECG/medicine tests: ordered. Risk OTC drugs. Prescription drug management. Decision regarding hospitalization. Patient presents to the emergency department by way of local EMS from a intermediate facility where she was found to have new onset of coughing today associated with shortness of breath and hypoxia. She was given 2 DuoNeb aerosol treatments at the group home and rescue squad arrived and put her on CPAP. Patient states she is only mildly short of breath at this time on 4 L of oxygen per nasal cannula. She states she did not start coughing till today. She denies any chest pain. She denies any fever. Differential diagnosis includes COVID, RSV, pneumonia, influenza, bronchitis, viral illness, hypoxia Chronic conditions impacting care: CVA, chronic kidney disease, hypertension, hypothyroid, type 2 diabetes, bipolar disorder, dementia, GERD, gout, migraines Social determinants affecting health: None. Patient currently resides in a local intermediate facility. ED diagnostics interpreted by me included CBC, CMP, VBG, BNP, serial troponins, viral nasal swab. EKG was reviewed in details dictated into Epiphany by the ED physician. Chest x-ray, per radiologist review, shows pulmonary vascular congestion, right greater than left. There is an additional hazy and streaky opacity in the bilateral lung bases suspicious for pneumonia. ED medications included Solu-Medrol 125 mg IV, oxygen 4 L via nasal cannula, IV vancomycin and Zosyn as well as IV Lasix. Patient presents with symptoms and findings consistent with CHF, bilateral pneumonia, and EDWIGE. I did discuss this case with Dr. Dominguez Franz, ACS, and patient was admitted to the telemetry unit on his service. Patient is in agreement with this plan. Patient's vitals remained stable throughout her emergency department stay. CONSULTS: IP CONSULT TO PULMONOLOGY IP CONSULT TO CARDIOLOGY IP CONSULT TO WOUND PREVENTION IP CONSULT TO PALLIATIVE CARE IP CONSULT TO GERIATRICS PROCEDURES: Unless otherwise noted below, none Procedures Patients symptoms are consistent with sepsis, severe sepsis, or septic shock (If yes use .sepsiscoremeasure): No FINAL IMPRESSION 1. Pneumonia of both lower lobes due to infectious organism 2. Congestive heart failure, unspecified HF chronicity, unspecified heart failure type (HCC) 3. Acute kidney injury (nontraumatic) (CMS/HCC) (HCC) 4. Acute electrocardiogram changes 5. Pulmonary congestion 6. Edema of extremities 7. Hypercapnia DISPOSITION/PLAN DISPOSITION Admit 11/13/2024 04:29:04 PM PATIENT REFERRED TO: No follow-up provider specified. DISCHARGE MEDICATIONS: Current Discharge Medication List @[facility]([id number]:LAST:1)@ (Please note: Portions of this note were completed with a voice recognition program. Efforts were made to edit thedictations but occasionally words and phrases are mis-transcribed.) Form v2016.J.[id number] Loly Saleem PA-C (electronically signed) Emergency Medicine Provider Loly Saleem PA-C 11/14/24 1505 Cosigned by Avi Peralta MD at 11/19/2024 7:02 AM EDT This is my DEIDRE supervisory and shared visit note: I, Avi Peralta MD, personally evaluated/saw the patient and made/approve the management plan and take responsibility for the patient management. I performed a substantive portion of the physical examination, history and medical decision making. Appropriate PPE including n 95, gown, gloves, goggles where worn when appropriate with this patient. History: Patient presents shortness of breath for EMS saturations were 76%. History of CHF. Placed on BiPAP on arrival we are able to take her off of that. Exam: Heart is regular. Lungs she has wheezing. Patient is awake and alert. She is only requiring 2 L. MDM: Initial troponin was 12 repeat is 124. COVID-negative. She does have some acidosis with PCO2 of 55. Acidotic. I do not believe she needs BiPAP. COVID is negative. Normal sodium potassium she does have an elevated creatinine. Slight elevated BNP. White blood count 10.5. Given Lasix. Given Zosyn and vancomycin. Given breathing treatments. Blood cultures. I believe she has pneumonia. Some vascular congestion. I do not believe she requires ICU. Patient will be admitted. Do not believe this is PE. The patient does have hypoxia required frequent repeat evaluation. I do not believe however she is septic. She is not hypotensive. She is currently not tachycardic. EKG per my interpreted patient's sinus rhythm nonsevere acute EKG changes with T wave inversions in the precordial leads. Critical care time: I personally saw the patient and independently provided least 35 minutes of non-concurrent critical care out of the total shared critical care time provided. Independent of any separately billable procedures. I did update and communicate with the hospitalist who admit Dr. Franz that the troponin did go up. I also notified ICU they will evaluate the patient but I think the patient be fine for the floor but I think it is best for ICU to evaluate to make sure that patient is appropriate for the floor. Comment: Please note this report has been produced using speech recognition software and may contain errors related to that system including errors in grammar, punctuation, and spelling, as well as words and phrases that may be inappropriate. If there is any questions or concerns please feel free to contact the dictating provider for clarification. Avi Peralta MD 11/13/24 1511 Avi Peralta MD 11/13/24 1518 Avi Peralta MD 11/13/24 1520 Avi Peralta MD 11/13/24 1551 documented in this encounter [facility] 11-13-2024 Note This is my DEIDRE super visiOpener and shared visit note: I, Avi Peralta MD, personally evaluated/saw the patient and made/approve the management plan and take responsibility for the patient management. I performed a substantive portion of the physical examination, history and medical decision making. Appropriate PPE including n 95, gown, gloves, goggles where worn when appropriate with this patient. History: Patient presents shortness of breath for EMS saturations were 76%. History of CHF. Placed on BiPAP on arrival we are able to take her off of that. Exam: Heart is regular. Lungs she has wheezing. Patient is awake and alert. She is only requiring 2 L. MDM: Initial troponin was 12 repeat is 124. COVID-negative. She does have some acidosis with PCO2 of 55. Acidotic. I do not believe she needs BiPAP. COVID is negative. Normal sodium potassium she does have an elevated creatinine. Slight elevated BNP. White blood count 10.5. Given Lasix. Given Zosyn and vancomycin. Given breathing treatments. Blood cultures. I believe she has pneumonia. Some vascular congestion. I do not believe she requires ICU. Patient will be admitted. Do not believe this is PE. The patient does have hypoxia required frequent repeat evaluation. I do not believe however she is septic. She is not hypotensive. She is currently not tachycardic. EKG per my interpreted patient's sinus rhythm nonsevere acute EKG changes with T wave inversions in the precordial leads. Critical care time: I personally saw the patient and independently provided least 35 minutes of non-concurrent critical care out of the total shared critical care time provided. Independent of any separately billable procedures. I did update and communicate with the hospitalist who admit Dr. Franz that the troponin did go up. I also notified ICU they will evaluate the patient but I think the patient be fine for the floor but I think it is best for ICU to evaluate to make sure that patient is appropriate for the floor. Comment: Please note this report has been produced using speech recognition software and may contain errors related to that system including errors in grammar, punctuation, and spelling, as well as words and phrases that may be inappropriate. If there is any questions or concerns please feel free to contact the dictating provider for clarification. Avi Peralta MD 11/13/24 1511 Avi Peralta MD 11/13/24 1518 Avi Peralta MD 11/13/24 1520 Avi Peralta MD 11/13/24 1551 [facility] 08-18-2024 Instructions Angelina Trujillo PA-C - 08/18/2024 1:37 PM EST Preventative: gabapentin increase to 600 mg twice a day Abortive: Nurtec 75mg with start Laboratory studies MRI of the brain Follow up in three months if headaches persist Headache Preventive Treatment: Please keep in mind that it takes 4-6 weeks for the medication to start working well and 2-3 months at the appropriate dose before deciding if it will be useful or not. If it is not helping at all by this time, then we will discuss other medications to try. Supplements may take 3-6 months until you see full effect. Natural supplements: Magnesium Oxide 500 mg at bed Coenzyme Q10 300 mg in AM Vitamin B2- 200 mg twice a day Feverfew 50 mg twice a day Vitamins and herbs that show potential Magnesium: Magnesium (250 mg twice a day or 500 mg at bed) has a relaxant effect on smooth muscles such as blood vessels. Individuals suffering from frequent or daily headache usually have low magnesium levels which can be increase with daily supplementation of 400-750 mg. Three trials found 40-90% average headache reduction when used as a preventative. Magnesium also demonstrated the benefit in menstrually related migraine. Magnesium is part of the messenger system in the serotonin cascade and it is a good muscle relaxant. It is also useful for constipation which can be a side effect of other medications used to treat migraine. Good sources include nuts, whole grains, and tomatoes. Magnesium comes in many different forms: Magnesium glycinate is a good choice for those with a sensitive stomach who have gastrointestinal side effects such as diarrhea with other forms of magnesium. It is anecdotally also helpful with anxiety and sleep. Magnesium threonate also has low risk of gastrointestinal side effects and anecdotally helpful with cognitive function and brain fog symptoms. Magnesium malate has low gastrointestinal side effects and is reportedly more energizing and anecdotally often helpful in fibromyalgia and chronic fatigue syndrome. Magnesium citrate is one of the most studied, popular, and well-absorbed forms of magnesium. It can also be mixed easily with liquids if you can't take pills. However, it comes with a higher risk of diarrhea and gastrointestinal side effects, although this could be helpful for those with constipation. Magnesium oxide is also well studied, cheap, and often used for heartburn and indigestion. However, it is not well absorbed and can have some laxative side effects as well, so can also be helpful for constipation. Riboflavin (vitamin B 2) 200 mg twice a day. This vitamin assists nerve cells in the production of ATP a principal energy storing molecule. It is necessary for many chemical reactions in the body. There have been at least 3 clinical trials of riboflavin using 400 mg per day all of which suggested that migraine frequency can be decreased. All 3 trials showed significant improvement in over half of migraine sufferers. The supplement is found in bread, cereal, milk, meat, and poultry. Most Americans get more riboflavin than the recommended daily allowance, however riboflavin deficiency is not necessary for the supplements to help prevent headache. Feverfew: Feverfew is a common garden herb alutiiq to [place] and popular in [facility] as a treatment for disorders typically controlled by aspirin. The mechanism of action is unknown but is believed to be related to a chemical called parthenolide which helps the body use serotonin more effectively. Serotonin helps prevent migraine and assists with resolution when it occurs. Parthenolide also inhibits the release of histamine which is linked to pain and inflammation. Consistency of active ingredients in different products can be a problem. Some formulations don't have the active ingredient (parthenolide) that prevents migraine. A parthenolide content of 0.2% is generally recommended. Typical dosage is one capsule 3 times a day. Coenzyme Q10: This is present in almost all cells in the body and is critical component for the conversion of energy. Recent studies have shown that a nutritional supplement of CoQ10 can reduce the frequency of migraine attacks by improving the energy production of cells as with riboflavin. Doses of 150 mg twice a day have been shown to be effective. Melatonin: Increasing evidence shows correlation between melatonin secretion and headache conditions. Melatonin supplementation has decreased headache intensity and duration. It is widely used as a sleep aid. Sleep is natures way of dealing with migraine. A dose of 3 mg is recommended to start for headaches including cluster headache. Higher doses up to 15 mg has been reviewed for use in Cluster headache and have been used. The rationale behind using melatonin for cluster is that many theories regarding the cause of Cluster headache center around the disruption of the normal circadian rhythm in the brain. This helps restore the normal circadian rhythm. Anay: Anay has a small amount of antihistamine and anti-inflammatory action which may help headache. It is primarily used for nausea and may aid in the absorption of other medications. HEADACHE DIET: Foods and beverages which may trigger migraine Note that only 20% of headache patients are food sensitive. You will know if you are food sensitive if you get a headache consistently 20 minutes to 2 hours after eating a certain food. Only cut out a food if it causes headaches, otherwise you might remove foods you enjoy! What matters most for diet is to eat a well balanced healthy diet full of vegetables and low fat protein, and to not miss meals. Chocolate, other sweets ALL cheeses except cottage and cream cheese Dairy products, yogurt, sour cream, ice cream Liver Meat extracts (Bovril, Marmite, meat tenderizers) Meats or fish which have undergone aging, fermenting, pickling or smoking. These include: Hotdogs,salami,Lox,sausage, mortadellas,smoked salmon, pepperoni, Pickled romeo Pods of broad mcrae (Syrian beans, Australian pea pods, Belarusian (spenser) beans, costa and navy beans Ripe avocado, ripe banana Yeast extracts or active yeast preparations such as Zee's or Mali's (commercial bakes goods are permitted) Tomato based foods, pizza (lasagna, etc.) MSG (monosodium glutamate) is disguised as many things; look for these common aliases: Monopotassium glutamate Autolysed yeast Hydrolysed protein Sodium caseinate flavorings all natural preservatives Nutrasweet Avoid all other foods that convincingly provoke headaches. Headache Prevention Strategies: 1. Maintain a headache diary; learn to identify and avoid triggers. Common triggers include: Emotional triggers: Emotional/Upset family or friends Emotional/Upset occupation Business reversal/success Anticipation anxiety Crisis-serious Post-crisis periodNew job/position Physical triggers: Vacation Day Weekend Strenuous Exercise High Altitude Location New Move Menstrual Day Physical Illness Oversleep/Not enough sleep Weather changes Light: Photophobia or light sesnitivity treatment involves a balance between desensitization and reduction in overly strong input. Use dark polarized glasses outside, but not inside. Avoid bright or fluorescent light, but do not dim environment to the point that going into a normally lit room hurts. Consider FL-41 tint lenses, which reduce the most irritating wavelengths without blocking too much light. These can be obtained at [employer] or [employer]: see list above. 2. Limit use of acute treatments (vqqk-aol-srderld medications, triptans, etc.) to no more than 2 days per week or 10 days per month to prevent medication overuse headache (rebound headache). 3. Follow a regular schedule (including weekends and holidays): Don't skip meals. Eat a balanced diet. 8 hours of sleep nightly. Minimize stress. Exercise 30 minutes per day. Being overweight is associated with a 5 times increased risk of chronic migraine. Keep well hydrated and drink 6-8 glasses of water per day. 4. Initiate non-pharmacologic measures at the earliest onset of your headache. Rest and quiet environment. Relax and reduce stress. Bpooyxm0Hfupa is a free deidre that can instruct you on some simple relaxtion and breathing techniques. Http://[employer].DianDian is a free website that provides teaching videos on relaxation. Also, there are many apps that can be downloaded for mindful relaxation. An deidre called YOGA NIDRA will help walk you through mindfulness. Cold compresses. 5. Don't wait!! Take the maximum allowable dosage of prescribed medication at the first sign of migraine. 6. Compliance: Take prescribed medication regularly as directed and at the first sign of a migraine. 7. Communicate: Call your physician when problems arise, especially if your headaches change, increase in frequency/severity, or become associated with neurological symptoms (weakness, numbness, slurred speech, etc.). 8. Headache/pain management therapies: Consider various complementary methods, including medication, behavioral therapy, psychological counselling, biofeedback, massage therapy, acupuncture, dry needling, and other modalities. Such measures may reduce the need for medications. Counseling for pain management, where patients learn to function and ignore/minimize their pain, seems to work very well. 9. Recommend changing family's attention and focus away from patient's headaches. Instead, emphasize daily activities. If first question of day is 'How are your headaches/Do you have a headache today?', then patient will constantly think about headaches, thus making them worse. Goal is to re-direct attention away from headaches, toward daily activities and other distractions. 10. Helpful Websites: www.AmericanHeadacheSociety.org www.migrainetrust.org www.headaches.org www.migraine.org.uk www.achenet.org 11. HEADACHE EXPECTATIONS: There are many types of headaches, and only a rare few in which complete relief can be expected. In general, there is no cure for headache, especially migraine based headaches. There is nothing available that completely prevents headaches from occurring, breaking through, or having periodic flare-ups and fluctuations. Regardless of what you are using on a daily basis for prevention, episodic headaches should still be expected, and periods where frequency may escalate and fluctuate are unavoidable. There is no quick fix for most headaches. Furthermore, the longer you have had high frequency headaches (such as chronic daily headache), the longer it will likely take to expect any improvement. In fact, some people will never improve, regardless of how many medications or other treatments we try. Our treatment strategy is to evaluate for possible causes of your headache, although testing is usually always normal, even in cases of daily continuous headaches for years. Most types of headache such as migraine are electrical brain disorders (similar to how epilepsy is an electrical brain disorders). Therefore, there is no testing that will reveal this dysfunctional electrical circuitry such on MRI, or other testing. We try to find a medication that may help lessen the frequency and/or severity of your headaches. The goal is not to completely stop them from happening, although if that happens, great! Different people respond to different medications, and some people just don't respond to anything, so it's usually a matter of trying different options. We can not predict if or when exactly you will respond to a treatment that we provide. Preventive headache medications take 4-6 weeks to start working, and 2-3 months to see full effect, assuming you reach an effective dose. Therefore, calling or messaging frequently because you have a headache flare prior to the 3 month alofnso is unlikely to change anything, and unfortunately there is nothing available that will expedite this, so please try to avoid this. Our recommendation will generally be to give it adequate time first. If you are unable to wait it out for medications to work, we can also try IV infusions for some temporary relief. O In general, the best that preventive medications or other treatments (including Botox) are able to offer in migraine management (variable in other headache types) is a 50% improvement in frequency and/or severity of headache. That is our goal, and any additional benefit is considered a bonus. Some people do significantly better than this, others do not get close to this. Therefore, if your headaches are not improving by at least 3 months on your preventive strategy, contact us and we can discuss further adjustments. Keep in mind that complete headache cure is not a realistic expectation. Our Team: The nursing staff, and medical assistants are a major part of YOUR TREATMENT TEAM and will be handling your phone calls, Notet Messages and inquiries, if any. Unless explicitly told otherwise at the time of your office visit, your study results and ensuing treatment plans will be released via [employer] and discussed during your follow-up appointment. [employer]: Please ask the schedulers to give you an activation code. The main way of communication is by [employer] rather than phone lines, so if you have not signed up, please do so. [employer] is also the way that you can review your labs and testing. We are not able to contact everyone to tell them results are normal. If you do not hear back from us regarding testing you have had, it should be considered normal or within normal range. If you have any questions about the results, you are free to message us. [employer] is meant for simple questions regarding medications, possible side effects, or other simple straight forward questions in limited sentences, rather than multiple paragraphs of discussion. [employer] is not meant for, or efficient for these complex questions, extensive questions, extensive medication adjustments, complex new symptoms or concerns. These issues beyond simple questions require a follow up visit with myself, one of our physician assistants, nurse practitioners, or a Virtual Visit via computer or smart phone, as detailed further down. Refills: Please pay attention to when your refills will need to be renewed. Due to the volume of phone calls daily, this could potentially take a few days, although we certainly try to honor your refill requests as soon as we can. You should call at least 1 week in advance of needing a refill to ensure you do not run out of medication. Keep in mind that refill requests on Fridays may not be filled until the following week. In regards to blood work, testing, and radiology reports these are released automatically to the patients. We do not comment on most testing on [employer] in a message or commentary unless there is a concern. You will not receive a message from me of the result unless there is a specific concern of the result I need you to address further in care with us or your primary medical team. Make sure to check your my chart email or deidre. As an international referral center for syncope, autonomic dysfunction, general neurology, headache care, neuromuscular disease, and other related conditions, seeing patients from across the world, we do not have the resource of time or staffing to address inquiries for accommodations. As such, we do not provide or complete requests for work accommodations, FMLA, disability, or other such forms. We recommend seeking guidance through your primary care provider for these requests. We are happy to provide our office notes from your visits and other tests or evaluations performed through our clinic, which can be made available upon request to assist you with this process. documented in this encounter [facility] 08-18-2024 Note HNO ID: [id number] Author: ANGELINA TRUJILLO PA-C Service: ? Author Type: Physician Field Service Engineer Type: Progress Notes Filed: 08/18/2024 14:20 Note Text: Neurology Outpatient Clinic Date: August 18, 2024 Patient Name: Carline Villarreal Referring physician: No referring provider defined for this encounter. Primary physician: none Reason for Evaluation: Headaches Subjective HPI Carline Villarreal is a 78 year old female who presents for evaluation of headache. Chart review: Seen on 12/16/23 for headache at [facility], lives in nursing facility. Noting hx of migraines. Hx of previous stroke in 2016 and some residual weakness left sided from this. On ASA and thinners. Last LDL was 58. Patient presents with her son and [id number] for evaluation of worsening headaches. History is limited due to baseline confusion and patient does live at assisted living. Family notes that they have been told her headaches have worsened, states that she is complaining of them more frequently and wincing in pain. Notes chronic history of migraines for many years and has been on many therapies in the past including Imitrex for abortive relief. Family does believe that she is still on this, does have history of stroke in the past with some residual left-sided weakness. Unclear of any new medications or recent falls. Patient reports she fell a few weeks ago but family states this did not occur. Patient describing frontal headaches with associated sensitive to light, nausea and occasional vomiting. No vision loss or vision changes, no jaw claudication. Family notes that she is currently on gabapentin 300 mg twice daily for headache management, that she has been on this for many years without any changes. Is currently on Cymbalta for depression. Current Headache treatment Preventative: Cymbalta 30 mg, gabapentin 300 mg twice daily Abortive: Imitrex Previous imaging: MRI brain 12/17/23 Impression 1. No acute infarct. 2. 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 3. Cerebral volume loss. 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 CTA head and neck 12/16/[address] Head: * No acute intracranial abnormality. 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 CTA Neck: * Less than 50% right ICA stenosis. 0% left ICA stenosis. * No significant vertebral artery stenosis. CTA head: * Multifocal intracranial atherosclerotic disease. * Moderate stenoses of the intracranial ICAs bilaterally. 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 Age is indeterminate, but possibly chronic given encephalomalacia in the right parietal lobe. 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 Previous Medications: Gabapentin Cymbalta Lisinopril Metoprolol Imitrex Percocet TPM Lexapro Headache Description Onset: chronic Total headache days per month: 4-8 Total headache attacks per month: 4-8 Headache free days: Yes Duration of attacks: half hour to hours Severity of headaches? Severe Onset to Peak: unsure Location: front . Aura: None Prodrome:none. Accompanying symptoms: photophobia, phonophobia, nausea and vomiting. Quality:throbbing. Worse with activity: No Triggers: foods (candy). Cough/sneeze/valsalva as trigger: sometimes Positional changes: No Most common time of day for headache to begin:early AM. Risk Factors History of Motor Vehicle Accident: No History of Traumatic Brain Injury and/or Concussion: Yes, has had a lot of falls (last six months) History of severe infection: No History of Syncope: No Obesity: No, Family History Migraine or other headaches in the family: sister, brother Aneurysms in a first degree relative: No Brain tumors in the family: No ROS Review of Systems CONSTITUTIONAL: No reported fevers, chills, night sweats, or significant unintentional weight loss. EYES: No visual changes indicated. No eye pain or orbital swelling reported. HEENT: No hearing changes or vertiginous symptoms indicated. No history of nose bleeds reported. RESPIRATORY: No reported cough, wheezing and dyspnea. CARDIOVASCULAR: Negative for significant chest pain, and palpitations per report. GI: Negative for significant abdominal discomfort, blood in stools or black stools reported. No recent reported change in bowel habits. : No reported history of incontinence. No dark/cola colored urine reported. MUSCLOSKELETAL: No history of significant joint pain or swelling, or myalgias reported. SKIN: Negative for pertinent lesions, rash, and itching per report. HEMATOLOGY/ONCOLOGY: Negative for reported prolonged bleeding, bruising easily, and swollen nodes. ENDOCRINE: Negative for reported significant cold or heat intolerance, no (more content not included)... [facility] 08-18-2024 History of Present illness Narrative Images from the original note were not included. Neurology Outpatient Clinic Date: August 18, 2024 Patient Name: Carline Villarreal Referring physician: No referring provider defined for this encounter. Primary physician: none Reason for Evaluation: Headaches Subjective HPI Carline Villarreal is a 78 year old female who presents for evaluation of headache. Chart review: Seen on 12/16/23 for headache at [facility], lives in nursing facility. Noting hx of migraines. Hx of previous stroke in 2016 and some residual weakness left sided from this. On ASA and thinners. Last LDL was 58. Patient presents with her son and [id number] for evaluation of worsening headaches. History is limited due to baseline confusion and patient does live at assisted living. Family notes that they have been told her headaches have worsened, states that she is complaining of them more frequently and wincing in pain. Notes chronic history of migraines for many years and has been on many therapies in the past including Imitrex for abortive relief. Family does believe that she is still on this, does have history of stroke in the past with some residual left-sided weakness. Unclear of any new medications or recent falls. Patient reports she fell a few weeks ago but family states this did not occur. Patient describing frontal headaches with associated sensitive to light, nausea and occasional vomiting. No vision loss or vision changes, no jaw claudication. Family notes that she is currently on gabapentin 300 mg twice daily for headache management, that she has been on this for many years without any changes. Is currently on Cymbalta for depression. Current Headache treatment Preventative: Cymbalta 30 mg, gabapentin 300 mg twice daily Abortive: Imitrex Previous imaging: MRI brain 12/17/23 Impression 1. No acute infarct. 2. 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 3. Cerebral volume loss. 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 CTA head and neck 12/16/[address] Head: * No acute intracranial abnormality. 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 CTA Neck: * Less than 50% right ICA stenosis. 0% left ICA stenosis. * No significant vertebral artery stenosis. CTA head: * Multifocal intracranial atherosclerotic disease. * Moderate stenoses of the intracranial ICAs bilaterally. 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 Age is indeterminate, but possibly chronic given encephalomalacia in the right parietal lobe. 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 Previous Medications: Gabapentin Cymbalta Lisinopril Metoprolol Imitrex Percocet TPM Lexapro Headache Description Onset: chronic Total headache days per month: 4-8 Total headache attacks per month: 4-8 Headache free days: Yes Duration of attacks: half hour to hours Severity of headaches? Severe Onset to Peak: unsure Location: front . Aura: None Prodrome:none. Accompanying symptoms: photophobia, phonophobia, nausea and vomiting. Quality:throbbing. Worse with activity: No Triggers: foods (candy). Cough/sneeze/valsalva as trigger: sometimes Positional changes: No Most common time of day for headache to begin:early AM. Risk Factors History of Motor Vehicle Accident: No History of Traumatic Brain Injury and/or Concussion: Yes, has had a lot of falls (last six months) History of severe infection: No History of Syncope: No Obesity: No, Family History Migraine or other headaches in the family: sister, brother Aneurysms in a first degree relative: No Brain tumors in the family: No ROS Review of Systems CONSTITUTIONAL: No reported fevers, chills, night sweats, or significant unintentional weight loss. EYES: No visual changes indicated. No eye pain or orbital swelling reported. HEENT: No hearing changes or vertiginous symptoms indicated. No history of nose bleeds reported. RESPIRATORY: No reported cough, wheezing and dyspnea. CARDIOVASCULAR: Negative for significant chest pain, and palpitations per report. GI: Negative for significant abdominal discomfort, blood in stools or black stools reported. No recent reported change in bowel habits. : No reported history of incontinence. No dark/cola colored urine reported. MUSCLOSKELETAL: No history of significant joint pain or swelling, or myalgias reported. SKIN: Negative for pertinent lesions, rash, and itching per report. HEMATOLOGY/ONCOLOGY: Negative for reported prolonged bleeding, bruising easily, and swollen nodes. ENDOCRINE: Negative for reported significant cold or heat intolerance, no reported goitrous neck swelling or polydipsia PSYCH: No reported depression or anxiety symptoms. No reported SI or HI. NEURO: Per HPI above. Sleep: Normal sleep pattern, Mood: on cymbalta , Medications: Current Outpatient Medications Medication Sig Dispense Refill acetaminophen (TYLENOL) 325 mg tablet Take 650 mg by mouth every 6 hours as needed for pain. atorvastatin (LIPITOR) 40 mg tablet Take 40 mg by mouth once daily. busPIRone (BUSPAR) 5 mg tablet Take 2.5 mg by mouth two times a day. Bisacodyl (DULCOLAX) 5 mg tab Take 5 mg by mouth as needed for constipation. cloNIDine HCl (CATAPRES) 0.2 mg tablet Take 0.2 mg by mouth two times a day. clopidogrel (PLAVIX) 75 mg tablet Take 75 mg by mouth once daily. DULoxetine (CYMBALTA) 30 mg capsule Take 30 mg by mouth once daily. famotidine (PEPCID) 20 mg tablet Take 20 mg by mouth once daily. hydrALAZINE (APRESOLINE) 25 mg tablet Take 25 mg by mouth three times a day as needed. hydroCHLOROthiazide 25 mg tablet Take 1 tablet by mouth once daily. metoprolol tartrate, short acting, (LOPRESSOR) 50 mg tablet Take 50 mg by mouth two times a day. lisinopril 10 mg tablet Take 1 tablet by mouth once daily. (Patient taking differently: Take 5 mg by mouth once daily.) 30 tablet 2 oxyCODONE-acetaminophen (PERCOCET) 5-325 mg tablet Take 1 tablet by mouth every 6 hours as needed for Pain. 60 tablet 0 escitalopram oxalate (LEXAPRO) 10 mg tablet Take 10 mg by mouth once daily. levothyroxine (SYNTHROID) 50 mcg tablet Take 50 mcg by mouth once daily. rimegepant (NURTEC ODT) 75 mg disintegrating tablet Take 1 tablet by mouth once daily as needed. 8 tablet 2 gabapentin (NEURONTIN) 600 mg tablet Take 1 tablet by mouth two times a day for 90 days. 60 tablet 2 topiramate (TOPAMAX) 100 mg tablet TAKE ONE TABLET BY MOUTH EVERY DAY AT BEDTIME (Patient not taking: Reported on 08/18/2024) 14 tablet 0 CYCLOBENZAPRINE 10 mg tablet Take 1 tablet by mouth daily at bedtime. (Patient not taking: Reported on 08/18/2024) 30 tablet 5 CETIRIZINE HCL (ZYRTEC ORAL) Take by mouth as needed. (Patient not taking: Reported on 08/18/2024) aspirin, enteric coated 81 mg EC tablet Take 81 mg by mouth once daily. (Patient not taking: Reported on 08/18/2024) donepezil (ARICEPT) 5 mg tablet Take 1 tablet by mouth daily at bedtime. (Patient not taking: Reported on 08/18/2024) 30 tablet 2 LORazepam (ATIVAN) 2 mg tab Take 1 tablet by mouth twice daily as needed. (Patient not taking: Reported on 08/18/2024) 90 tablet 0 zolpidem (AMBIEN) 10 mg tab Take 1 tablet by mouth at bedtime as needed (for sleep). (Patient not taking: Reported on 08/18/2024) 90 tablet 0 No current facility-administered medications for this visit. ROS: Her ROS was positive for that mentioned in the HPI. Otherwise a 10-point ROS was completed and was negative. ALLERGIES Allergen Reactions Pneumovax 23 [Pneum* Unknown Past Medical History: PAST MEDICAL HISTORY Diagnosis Date DJD (degenerative joint disease) HTN (hypertension) Obesity Family History: No family history on file. Also includes: . Social History: Social History Tobacco Use Smoking status: Never Smokeless tobacco: Never Lives at group home Objective 08/18/24 1325 BP: 145/77 Pulse: (!) 58 Physical Examination-patient has difficulty following multi step directions. General Appearance: Well appearing, alert, in no acute distress, well-hydrated, well nourished. Head: Normocephalic Pulm: Breathing comfortably Neck: Supple Psych: Cooperative, appropriate affect Neurological Examination: Mental Status: Alert and Oriented to Place, Person, Time and Situation and Patient follows commands.. Language: Is intact to Comprehension, Fluency and Repetition Cranial Nerves: CNII: Visual acuity normal, unable to test visual lee CNIII, IV, : Pupils equal, round and reactive to light, full extraoccular movements, without nystagmus CN V: Facial sensation intact bilaterally to fine touch CN VII: Facial muscles symmetric and strong CN VIII: Hears finger rub well bilaterally CN IX: Gag Reflex not examined CN X: Palate elevates symmetrically CN XI: Full strength shoulder shrug bilaterally CN XII: Tongue protrusion full and midline Motor Exam: Tone - Normal Tone noted in all extremities Bulk - Normal bulk noted in all muscles tested. Inspection - Normal, no fasciculations or tremors noted. Power: Medical Services Manager strength is 4/5 on left hand MUSCLES Upper Extremity RIGHT LEFT Deltoid 5/5 4/5 Biceps 5/5 4/5 Triceps 5/5 4+/5 Wrist Extension 5/5 Wrist Flexion 5/5 Finger Flexion 5/5 Finger Extension 5/5 Finger Abd 5/5 Finger Add 5/5 MUSCLES Lower Extremity RIGHT LEFT Hip Flexion 5/5 4+/5 Hip Extension 5/5 5/5 BiFem (Knee Flex) 5/5 5/5 Quads (Knee Ext) 5/5 5/5 Gastroc (Plantflx) 5/5 5/5 TibAnt (Dorsiflx) 5/5 5/5 FlxHLong (Toe Flex) 5/5 5/5 ExtHLong (Toe Ext) 5/5 5/5 Sensory Examination Sensation is intact to light touch. Unable to test double extinction Reflexes Right Left Bicep / 2/4 BrRad 07/08/ Knee / NA Ankle 07/08 07/08 Coordination: finger-to- nose-finger intact bilaterally and [id number] intact bilaterally. Gait: not tested DATA REVIEWED Actual films/image/tracing reviewed and summarized as follows: MRI brain, CTA head and neck Old records reviewed and summarized as follows: [facility] Assessment/Plan Assessment & Plan: Carline Villarreal is a 78 year old female with a history of CVA, migraines,. Her examination demonstrates chronic weakness of the left upper extremity, hyperreflexia in that limb as well. Baseline confusion and difficulty following multistep tasks. Patient presents with family for evaluation of worsening headaches. Patient lives at a group home. Family notes that she has some baseline confusion due to an old stroke about 9 years ago. History is primarily obtained through the family but is very limited. Was told by the nursing facility that she has been complaining of more headaches, has longstanding history of migraines. Patient still describing migraine headaches typically frontal with associated photophobia, phonophobia, nausea and occasional vomiting. No autonomic features, denies any vision changes or jaw claudication. However, due to history limitations as well as possible worsening headaches in a patient above the age of 60 will obtain MRI of the brain as well as CRP and ESR with basic blood work to look for common causes of worsening headaches. Low suspicion for GCA at this time but will continue to monitor. Patient is currently on gabapentin 300 mg twice daily for headache management and has been on this for many years. Discussed increasing this to 600 mg twice a day, it is primarily prescribed through the facility from primary care. Patient and family agreeable to this, new prescription was placed. For abortive relief she is currently on Imitrex, but due to history of stroke this is contraindicated. Will start Nurtec to take with onset of migraine headache. Discussed common side effects and patient is amenable. Encouraged conservative therapy as well. Patient and family agreeable to treatment plan of care at this time, questions were answered. Patient to follow-up should headaches persist in 3 months. Carline was seen today for consult. Diagnoses and all orders for this visit: Worsening headaches - MRI BRAIN WO IVCON; Future - C-REACTIVE PROTEIN; Future - SEDIMENTATION RATE, WESTERGREN; Future - THYROID STIMULATING HORMONE; Future - COMPREHENSIVE METABOLIC PANEL; Future - COMPLETE BLOOD COUNT; Future - VITAMIN B12; Future Weakness - THYROID STIMULATING HORMONE; Future Other orders - rimegepant (NURTEC ODT) 75 mg disintegrating tablet; Take 1 tablet by mouth once daily as needed. - gabapentin (NEURONTIN) 600 mg tablet; Take 1 tablet by mouth two times a day for 90 days. All options for treatment discussed. Preventative:Increase gabapentin to 600mg bid Abortive: nurtec 75mg Imaging: mri brain Labs: CRP, ESR, TSH, CMP, CBC, B12 She should return to see me in 3 months. I spent a total of 60 minutes on the date of the service which included preparing to see the patient, ifhy-us-onah patient care, completing clinical documentation, obtaining and/or reviewing separately obtained history, performing a medically appropriate examination, counseling and educating the patient/family/caregiver, and ordering medications, tests, or procedures. Angelina Trujillo PA-C [facility] Neurology This document has been created with the use of voice recognition technology. It may contain inaccuracies: (e.g. misspellings, inaccurate syntax or word sense) that have escaped review. documented in this encounter [facility] 12-17-2023 Consult note Formatting of th is note might be different from the original. Consults This note is for administrative purpose. Please note that patient was discharged before Neurology services had seen, or assessed the patient. Discharge recommendations are made without consultation recommendations, although it is noted in the discharge summary Consultation of Neurology This documentation is to clarify that Neurology service was on consult and patient was discharged without notifying neurology service or discontinuing the consult order. [facility] [employer] Work Phone: 12-17-2023 Consult note Formatting of th is note might be different from the original. Consults This note is for administrative purpose. Please note that patient was discharged before Neurology services had seen, or assessed the patient. Discharge recommendations are made without consultation recommendations, although it is noted in the discharge summary Consultation of Neurology This documentation is to clarify that Neurology service was on consult and patient was discharged without notifying neurology service or discontinuing the consult order. documented in this encounter [facility] 12-17-2023 Note Consults This note is for administrative purpose. Please note that patient was discharged before Neurology services had seen, or assessed the patient. Discharge recommendations are made without consultation recommendations, although it is noted in the discharge summary Consultation of Neurology This documentation is to clarify that Neurology service was on consult and patient was discharged without notifying neurology service or discontinuing the consult order. [facility] 12-17-2023 Nurse Note Report called to [facility]. Transport setup for 1400. [facility] 12-17-2023 Nurse Note Report called to [facility]. Transport setup for 1400. Pt discharged back to [facility]. PIV removed from RFA, catheter intact, DSD applied. Tele monitor removed, cleaned per protocol & returned to drawer. documented in this encounter [facility] 12-17-2023 Nurse Note Pt discharged back to [facility]. PIV removed from RFA, catheter intact, DSD applied. Tele monitor removed, cleaned per protocol & returned to drawer. [facility] 12-17-2023 Note Formatting of this n ote might be different from the original. Discharge med list transmitted to [facility] via [facility] per TCC request. [facility] 12-17-2023 Note Formatting of this n ote might be different from the original. Discharge med list transmitted to [facility] via [facility] per TCC request. [facility] 12-17-2023 Miscellaneous Notes Discharge med list transmitted to [facility] via [facility] per TCC request. Spoke with patient about return to [facility] and she is in agreement with this. Spoke with Mer[facility] about report and they are able to accept patient back. She is group home there under her medicaid. Did update social media project manager and primary care nurse. Tasked COMMODITY LEAD to send dc packet to [facility]. . Dc back to [facility] this afternoon at 2:00. [facility] messaged the facility with dc time. Ambulance PCS form completed in Round Trip. Spoke with patients ethan Pillai to discuss transportation arrangements and the bulk picker time. Nurse provided with report number. Referral placed to [facility] via [facility] per TCC request. Await review and response regarding ability to accept. TCC notified. [employer] Carline Villarreal : 1945 Primary Care Physician: Evi Guevara The patient and/or family/surrogate voluntarily agreed to participate in ACP services. Patient s cognitive capacity: Does not have capacity Code Status: [x] [FULL CODE - Continue all advanced life support: CPR,intubation,invasive procedures] [_] [DNR-CCA - DO NOT do CPR, intubation] [_] [DNR-ART OBJECTS SUPERVISOR - Comfort care only] [_] DNR form [was/was not] signed Summary of discussion: The patient health care POA/ surrogate is the following: Ethan Pillai. [Condition that instigated the ACP on this DOS, relevant PMH, functional status, goals of care, and whom this was discussed with including names and relationship to the patient, and any relevant advance care documentation discussion] I answered all the patient/family questions that I could within the range and scope of the current medical situation. We discussed the medical conditions, risks, benefits, outcomes, and goals of care at this time for the patient's medical issues at hand in the face of the patient's chronic issues and current presentation. Total time spent: 5 minutes were spent discussing the patient's resuscitation status, advance care planning, and end of life care, with patient and/or family/surrogate. Bartolo Meehan MD Acute care [facility] 12/16/2023, 4:16 PM documented in this encounter [facility] 12-17-2023 Note Formatting of this n ote might be different from the original. Spoke with patient about return to [facility] and she is in agreement with this. Spoke with Merle about report and they are able to accept patient back. She is group home there under her medicaid. Did update social media project manager and primary care nurse. Tasked COMMODITY LEAD to send dc packet to [facility]. . [facility] 12-17-2023 Note Formatting of this n ote might be different from the original. Spoke with patient about return to [facility] and she is in agreement with this. Spoke with [facility] about report and they are able to accept patient back. She is group home there under her medicaid. Did update social media project manager and primary care nurse. Tasked COMMODITY LEAD to send dc packet to [facility]. . [facility] 12-17-2023 Note Formatting of this n ote might be different from the original. Dc back to [facility] this afternoon at 2:00. [facility] messaged the facility with dc time. Ambulance PCS form completed in Round Trip. Spoke with patients ethan Pillai to discuss transportation arrangements and the bulk picker time. Nurse provided with report number. [facility] 12-17-2023 Note Formatting of this n ote might be different from the original. Dc back to [facility] this afternoon at 2:00. [facility] messaged the facility with dc time. Ambulance PCS form completed in Round Trip. Spoke with patients ethan Pillai to discuss transportation arrangements and the bulk picker time. Nurse provided with report number. [facility] 12-17-2023 Note OCCUPATIONAL THERAPY [facility] Initial Evaluation Name/MRN: Carline Villarreal ([id number]) Evaluation Date: 12/17/2023 Date of : 1945 Admission Date: 12/16/2023 1:05 PM Age: 77 y.o. Room/Bed: B2-256/B2-256 A Discharge Recommendation: IP Rehab Assessment IMPRESSION: Pt admitted from [facility] 12/15 with HDEZ and weakness. CT demo small acute infarcts R parietal lobe, also h/o CVA with residual L side weakness. Prior to admission, pt was independent in ADLs, functional transfers and mobility with fww. Pt now requires min-max A for ADLs, max A x1-2 for functional transfers with and without fww. Pt is limited by impaired balance and endurance. Pt should benefit from skilled OT services in order to increase safety and independence in occupational participation. Performance Deficits /Impairments: Increased Pain, Decreased Functional Mobility, Decreased ADL status, Decreased ROM, Decreased Strength, Decreased Safety Awareness, Decreased Cognition, Decreased Endurance, Decreased Balance, and Decreased High Level IADLs Prognosis: Good Decision Making: Medium Complexity Subjective Pt pleasant and cooperative. Per RN, ok for pt to participate in OT eval. External female catheter, PIV and tele intact. Pain: Pt denies any current pain. Past Medical History: Past Medical History: Diagnosis Date Diabetes mellitus (HCC) Hypertension Stroke (HCC) Past Surgical History: History reviewed. No pertinent surgical history. Admission Diagnosis: Patient Active Problem List Diagnosis Date Noted Left-sided weakness 12/16/2023 Medical Precautions: No active isolations Proper PPE donned/doffed in accordance with facility standards. Fall Risk: Oleary Fall Risk Score: 95 (High Risk) Precautions/Restrictions: N/A Family/Caregiver Present: none Overall Cognitive Status: Exceptions - Following commands: follows one step commands consistently - Problem solving: assistance required to generate solutions, assistance required to implement solutions, assistance required to identify errors made, assistance required to correct errors made, and decreased awareness of errors - Initiation: requires cues for some - Sequencing: requires cues for some Overall Orientation Status: Oriented to Person, Disoriented to Situation, Disoriented to Time, and Disoriented to Place Social/Functional History Patient admitted from SNF. [facility] Assistive Equipment: front wheeled walker Prior Level of Function ADL Assistance: Independent Ambulation Assistance: Independent Device(s) used: front wheeled walker Transfer Assistance: Independent Objective ADLs Pt with increased LUE weakness, with increased L side neglect and impaired balance/endurance requiring increased assist for ADLs. Upper Extremity Assessment AROM: Impaired: B shld 80, distal WFL Strength: RUE 4+/5, LUE 3+/5 Vision: wears glasses at all times and and are being used during the eval Hearing: normal Bed Mobility Supine to sit: Mod Assist, assist to manage LLE to EOB and elevate trunk Sit to supine: Mod Assist, x2 Person Assist, assist to manage BLE to EOB and guide trunk Scooting: Mod Assist, to scoot to EOB HOB elevated with use of bed features and increased time to complete. Denied dizziness with changes in positioning. Transfers/Functional Mobility Sit to stand: Max Assist, x2 Person Assist Stand to sit: Max Assist, x2 Person Assist Attempted 4 STS to/from EOB. 2 STS completed without device d/t increased LUE weakness and 2 completed with use of fww with BUE on fww in order to facilitate forward weight shift. Pt completed 4 partial STS with max A x1 with foot block between BLE and assist for LLE positioning with VC to maintain LLE on ground- pt with minimal awareness of LLE. Pt completed successful STS with max A x2 at fww with PT, pt tolerated standing ~5 seconds with max A x2 and returned to sitting. Device(s) used: front wheeled walker Coordination: Impaired: LUE [facility] Sensation: Impaired: Pt with impaired light touch and pressure sensation to LUE AM-PAC AM-PAC Inpatient Daily Activity Raw Score: 16 ADL Inpatient [facility] G-Code Modifier: CK Plan Pt would benefit from skilled acute OT services to address Strengthening, ROM, Balance Training, Functional Mobility Training, Endurance Training, Safety Education and Training, Patient/Caregiver Training, Equipment Evaluation/Education, Positioning, Self-Care/ADL Training, and Cognitive/Perceptual Training. Frequency: 7 visits during current hospital admission or until additional recommendations are made Barriers: Decreased endurance, Decreased sensation, Decreased proprioception, Upper extremity weakness, Lower extremity weakness, and Long standing deficits Prognosis: good Safety/Education Safety Safety Devices in place: All fall risk precautions in place, call light within reach, left in bed, bed alarm in place, gait belt (more content not included)... [facility] 12-17-2023 History of Present illness Narrative Images from the original note were not included. OCCUPATIONAL THERAPY [facility] Initial Evaluation Name/MRN: Carline Villarreal ([id number]) Evaluation Date: 12/17/2023 Date of : 1945 Admission Date: 12/16/2023 1:05 PM Age: 77 y.o. Room/Bed: [facility]256/[facility]256 A Discharge Recommendation: IP Rehab Assessment IMPRESSION: Pt admitted from [facility] 12/15 with HDEZ and weakness. CT demo small acute infarcts R parietal lobe, also h/o CVA with residual L side weakness. Prior to admission, pt was independent in ADLs, functional transfers and mobility with fww. Pt now requires min-max A for ADLs, max A x1-2 for functional transfers with and without fww. Pt is limited by impaired balance and endurance. Pt should benefit from skilled OT services in order to increase safety and independence in occupational participation. Performance Deficits /Impairments: Increased Pain, Decreased Functional Mobility, Decreased ADL status, Decreased ROM, Decreased Strength, Decreased Safety Awareness, Decreased Cognition, Decreased Endurance, Decreased Balance, and Decreased High Level IADLs Prognosis: Good Decision Making: Medium Complexity Subjective Pt pleasant and cooperative. Per RN, ok for pt to participate in OT eval. External female catheter, PIV and tele intact. Pain: Pt denies any current pain. Past Medical History: Past Medical History: Diagnosis Date Diabetes mellitus (HCC) Hypertension Stroke (HCC) Past Surgical History: History reviewed. No pertinent surgical history. Admission Diagnosis: Patient Active Problem List Diagnosis Date Noted Left-sided weakness 12/16/2023 Medical Precautions: No active isolations Proper PPE donned/doffed in accordance with facility standards. Fall Risk: Oleary Fall Risk Score: 95 (High Risk) Precautions/Restrictions: N/A Family/Caregiver Present: none Overall Cognitive Status: Exceptions - Following commands: follows one step commands consistently - Problem solving: assistance required to generate solutions, assistance required to implement solutions, assistance required to identify errors made, assistance required to correct errors made, and decreased awareness of errors - Initiation: requires cues for some - Sequencing: requires cues for some Overall Orientation Status: Oriented to Person, Disoriented to Situation, Disoriented to Time, and Disoriented to Place Social/Functional History Patient admitted from SNF. [facility] Assistive Equipment: front wheeled walker Prior Level of Function ADL Assistance: Independent Ambulation Assistance: Independent Device(s) used: front wheeled walker Transfer Assistance: Independent Objective ADLs Pt with increased LUE weakness, with increased L side neglect and impaired balance/endurance requiring increased assist for ADLs. Upper Extremity Assessment AROM: Impaired: B shld 80, distal WFL Strength: RUE 4+/5, LUE 3+/5 Vision: wears glasses at all times and and are being used during the eval Hearing: normal Bed Mobility Supine to sit: Mod Assist, assist to manage LLE to EOB and elevate trunk Sit to supine: Mod Assist, x2 Person Assist, assist to manage BLE to EOB and guide trunk Scooting: Mod Assist, to scoot to EOB HOB elevated with use of bed features and increased time to complete. Denied dizziness with changes in positioning. Transfers/Functional Mobility Sit to stand: Max Assist, x2 Person Assist Stand to sit: Max Assist, x2 Person Assist Attempted 4 STS to/from EOB. 2 STS completed without device d/t increased LUE weakness and 2 completed with use of fww with BUE on fww in order to facilitate forward weight shift. Pt completed 4 partial STS with max A x1 with foot block between BLE and assist for LLE positioning with VC to maintain LLE on ground- pt with minimal awareness of LLE. Pt completed successful STS with max A x2 at fww with PT, pt tolerated standing ~5 seconds with max A x2 and returned to sitting. Device(s) used: front wheeled walker Coordination: Impaired: LUE [facility] Sensation: Impaired: Pt with impaired light touch and pressure sensation to LUE AM-PAC AM-PAC Inpatient Daily Activity Raw Score: 16 ADL Inpatient CMS G-Code Modifier: CK Plan Pt would benefit from skilled acute OT services to address Strengthening, ROM, Balance Training, Functional Mobility Training, Endurance Training, Safety Education and Training, Patient/Caregiver Training, Equipment Evaluation/Education, Positioning, Self-Care/ADL Training, and Cognitive/Perceptual Training. Frequency: 7 visits during current hospital admission or until additional recommendations are made Barriers: Decreased endurance, Decreased sensation, Decreased proprioception, Upper extremity weakness, Lower extremity weakness, and Long standing deficits Prognosis: good Safety/Education Safety Safety Devices in place: All fall risk precautions in place, call light within reach, left in bed, bed alarm in place, gait belt, patient at risk for falls, and nurse notified Restraints: No Education Education Given To: patient Education Provided: OT Role, Plan of Care, Transfer Training, Fall Prevention Education, Discharge Recommendations, and Benefits of Increasing Activity Education Method: Verbal Barriers to Learning: Cognition Education Outcome: Verbalized Understanding, Demonstrated Understanding, and Continued Education Needed Goals Patient Stated Goal: to return to walking Encounter Problems Encounter Problems (Active) Balance Patient will tolerate standing for 2 minutes with LRD and min A to allow increased independence in ADLs. Start: 12/17/23 Expected End: 12/31/23 Dressing Upper Extremities Patient will complete upper body with SUP. Start: 12/17/23 Expected End: 12/31/23 Dressings Lower Extremities Patient will complete lower body ADLs with min A. Start: 12/17/23 Expected End: 12/31/23 Mobility Patient will demonstrate functional ambulation with min A and LRD. Start: 12/17/23 Expected End: 12/31/23 Toileting Patient will complete toileting tasks at [facility] [place] [place]/standard toilet with min assist. Start: 12/17/23 Expected End: 12/31/23 Transfers Patient will complete functional transfer with rolling walker with min assist in order to prepare for ambulation. Start: 12/17/23 Expected End: 12/31/23 Patient will perform bed mobility with SBA in order to improve independence and prepare for out of bed mobility. Start: 12/17/23 Expected End: 12/31/23 Therapy Time Individual Co-treatment Time In 0814 Time Out 0840 Minutes 26 Timed Code Treatment Minutes: 11 Minutes (1 TA) Trisha Taylor OT Patient's Occupational Therapy Plan of Care supervision is transferred to a [facility] Occupational Therapist. Goals and/or treatment plan was established in collaboration with patient/family/other representatives. Hospitalist Progress Note 12/17/2023 Subjective: Admit Date: 12/16/2023 PCP: Evi Guevara Room#: B2-256/B2-256 A BRIEF HOSPITAL COURSE: Carline is a 77 y.o. female with past medical history below who presents with chief complaint listed above. Patient states non-radiating sudden, intermittent pounding headache to the forehead started about 3 days ago. She has had similar symptoms in the past that were more intense compared to today. She is currently resident nursing facility. They have been treating the headache which was thought to be a migraine headache. Does get relief with treatment and a cool wash cloth on her forehead but it seems to come back. Lights and candy exacerbate her headache symptoms. Headaches at their worst are an 8, but currently a 0. Then yesterday afternoon, she also developed some left-sided arm and leg tingling. Patient became concerned because these were symptoms of she had with her previous stroke about 8 years ago. Notes symptoms are primarily tingling but also feels like the left side slightly weaker. She does note some mild residual weakness from the previous stroke. No recent falls or any injuries. No associated chest pain, shortness of breath, vision changes including blurry, double, or floaters, difficult producing speech, abdominal pain, vomiting, diarrhea, dysuria, or vertigo. Patient is taking aspirin and enoxaparin as blood thinners. Past medical history of hypertension and currently taking labetalol also on atorvastatin. Family history is positive for 2 sisters with recurrent migraines. In the ED, labs showed BUN 27, Cr 1.21, eGFR 46.3. CT head neck angio with and without IV contrast revealed no acute intracranial abnormalities. EKG completed and showed sinus bradycardia with abnormal R-wave progression with a borderline repolarization abnormality. Admitted for further evaluation. Interval History: No overnight issues. Feels the same this am. No acute changes. VSS. Case and plan discussed with patient and bedside nurse. All questions answered. Adult diet Regular 24HR INTAKE/OUTPUT: Intake/Output Summary (Last 24 hours) at 12/17/2023 1011 Last data filed at 12/17/2023 0622 Gross per 24 hour Intake 876.67 ml Output 700 ml Net 176.67 ml Past Medical History: Past Medical History: Diagnosis Date Diabetes mellitus (HCC) Hypertension Stroke (HCC) LABS: CBC: Recent Labs 12/16/23 1323 12/17/23 0552 WBC 7.4 5.4 RBC 4.09 3.73* HGB 13.3 12.0 HCT 39.1 35.7 MCV 95.6 95.7 RDW 13.3 13.5 PLT 259 211 BMP: Recent Labs 12/16/23 1323 12/17/23 0552 NA 139 141 K 3.8 3.7 CL 104 107 CO2 28 24 BUN 27* 26* CREATININE 1.21* 1.20* GLUCOSE 87 117* CALCIUM 9.0 8.9 ANIONGAP 8 10 LIVER PROFILE: Recent Labs 12/16/23 1323 12/17/23 0552 AST 25 21 ALT 15 14 BILITOT 0.7 0.5 ALKPHOS 118 133* PROT 6.9 6.0* PT/INR: Recent Labs 12/16/23 1323 PROTIME 10.9 INR 1.0 CARDIAC ENZYMES: Recent Labs 12/16/23 1323 12/16/23 1655 12/16/23 1900 TROPONINI <0.012 <0.012 <0.012 Procalcitonin: No results found for: PROCAL COVID-19 PCR: No results for input(s): COVID19 in the last 72 hours. Objective: Vitals: BP 146/74 (BP Location: Left arm, Patient Position: Lying) Pulse 68 Temp 37.4 C (99.3 F) (Temporal) Resp 18 Ht 5' 6 (1.676 m) Wt 205 lb 7.5 oz (93.2 kg) SpO2 97% BMI 33.16 kg/m Pulse Ox: SpO2 Av.1 % Min: 94 % Max: 100 % Supplemental O2: Physical Exam Constitutional: Appearance: She is obese. She is not ill-appearing. Cardiovascular: Rate and Rhythm: Normal rate. Heart sounds: No murmur heard. Pulmonary: Effort: No respiratory distress. Breath sounds: No wheezing. Abdominal: General: There is no distension. Tenderness: There is no abdominal tenderness. Musculoskeletal: General: No swelling. Neurological: Mental Status: Mental status is at baseline. Motor: Weakness (Chronic LUE and LLE weakness) present. Medications: Scheduled PRN aspirin, 81 mg, Oral, Daily Or aspirin, 300 mg, Rectal, Daily atorvastatin, 40 mg, Oral, Nightly enoxaparin, 40 mg, SubCUTAneous, Daily sodium chloride 0.9%, 5-40 mL, IntraVENous, q12h PRN medications: acetaminophen OR acetaminophen, bisacodyl, labetalol, ondansetron ODT OR ondansetron, perflutren protein A microsphere (Optison) 3 mL in sodium chloride (PF) 0.9 % 10 mL IV syringe, polyethylene glycol (PEG) 3350, sodium chloride, sodium chloride 0.9% Continuous sodium chloride, 50 mL/hr, Last Rate: 50 mL/hr (12/17/23 06) Assessment Data: (CAT1) Reviewed 3 or more notes from different specialty or health system (each=1). (CAT1) Reviewed 3 or more labs/studies ordered by another provider not previously counted (each=1, panels count as 1). (CAT1) Reviewed 3 or more labs/studies previously ordered by me not previously counted (each=1, panels count as 1). (CAT1) Ordered 3 or more new labs and/or studies (each=1, panels count as 1). (LOW: 2x CAT1 or independent historian MOD: 3x CAT1 or 1x CAT3 EXTENSIVE: 3x CAT1 and 1x CAT3) Acute, acute on chronic, unstable/uncontrolled chronic problems/diagnoses: Left UE and LE paresthesia Intractable HDEZ HTN urgency Stable chronic problems affecting care, new non-acute diagnoses: Hx of CVA with residual left sided weakness HTN HLD Class 3 obesity Plan As a result of the above findings & factors, the following mgmt was pursued: -Stroke imaging consisting of CT head, CTA head and neck and MRI brain negative. Symptoms are likely from residual CVA in the past. Medically stable for discharge at this time - Discussed with nurse and TCC during IDR's this morning - am labs, replace lytes prn - PT/OT/CM/SW - delirium precautions: increase activity - DVT prophylaxis: enoxaparin and encourage ambulation Complexity: Acute illness or injury posing a threat to life or body function (HIGH). Chronic illness with severe exacerbation, progression, or side effect of tx (HIGH). Risk: Admission to hospital-level care was considered or occurred (HIGH). Advance Directive: Prior Anticipated Discharge - Date - 12/16 - Location - Skilled Facility - Pending the following - Stable for discharge, SNF auth Total time spent (which include face to face and non face to face encounters) : 50 minutes Toxic drug monitoring/narrow therapeutic index drug monitoring : # Drug name : Lovenox # Route administered : subq # Method of monitoring : CBC Extended Emergency Contact Information Primary Emergency Contact: Rosas Kwon Mobile Relation: Son Secondary Emergency Contact: Nicolette Ren Mobile Relation: Sister Bartolo Meehan MD Division of Hospitalist Medicine Acute [facility] Images from the original note were not included. PHYSICAL THERAPY [facility] Initial Evaluation Name/MRN: Carline Villarreal ([id number]) Evaluation Date: 12/17/2023 Date of : 1945 Admission Date: 12/16/2023 1:05 PM Age: 77 y.o. Room/Bed: [facility] A Discharge Recommendation: IP Rehab Other: TBD at discharge location Assessment IMPRESSION: Pt admitted from [facility] 12/15 with HDEZ and weakness. CT demo small acute infarcts R parietal lobe, also h/o CVA with residual L side weakness. At baseline is IND with FWW reports walking ~1 block/day at ECF. She demo bed mobility mod A, transfer to FWW x3 trials max x1-max x2 with sxs of L sided neglect. She demo global weakness L>R. She is at increased falls risk and would benefit from intensive multidisciplinary therapies to promote mobility and functional return Diagnosis: acute R parietal lobe infarct Prognosis: good Performance Deficits /Impairments: Decreased Functional Mobility, Decreased Strength, Decreased Safety Awareness, Decreased Endurance, Decreased Balance, and Decreased Coordination Decision Making: Medium Complexity Subjective Per RN pt okay for therapy, is pleasant and agree to PT Pain: Pt denies any current pain. Past Medical History: Past Medical History: Diagnosis Date Diabetes mellitus (HCC) Hypertension Stroke (HCC) Past Surgical History: History reviewed. No pertinent surgical history. Admission Diagnosis: Patient Active Problem List Diagnosis Date Noted Left-sided weakness 12/16/2023 Medical Precautions: No active isolations Proper PPE donned/doffed in accordance with facility standards. Fall Risk: Oleary Fall Risk Score: 95 (High Risk) Precautions/Restrictions: N/A Family/Caregiver Present: none Overall Cognitive Status: Exceptions - Following commands: follows one step commands consistently - Problem solving: assistance required to generate solutions, assistance required to implement solutions, assistance required to identify errors made, assistance required to correct errors made, and decreased awareness of errors - Initiation: requires cues for some - Sequencing: requires cues for some Overall Orientation Status: Oriented to Person, Disoriented to Situation, Disoriented to Time, and Disoriented to Place Vision: wears glasses at all times and and are being used during the eval Hearing: normal Social/Functional History Patient admitted from SNF. [place] [place] Assistive Equipment: front wheeled walker Prior Level of Function ADL Assistance: Independent Ambulation Assistance: Independent Device(s) used: front wheeled walker Transfer Assistance: Independent Objective Lower Extremity Assessment AROM: Exceptions: BLE difficulty moving full ROM vs gravity, PROM appears WFL (see OT note for BUE-residual deficits LUE) PROM: WFL Strength: Exceptions: RLE: hip flexion 3/5 knee ext 4/5 ankle DF 4/5 ankle PF 5/5 LLE: hip flexion: 3-/5 knee ext 4-/5 ankle DF 4/5 ankle PF 4/5 Bed Mobility: Supine to sit: Mod Assist, Pt denies dizziness. She demo supine to sit with mod A to manage BLE and elevate trunk, Initially demo R sided lean in sit, can correct to midline with cues. She return to supine mod A for BLE management Sit to supine: Mod Assist Transfers Sit to stand: Max Assist, Pt transfer to FWW x3 trials from bed 2 trials max x1, last trial max x2. She is able to stand <5 sec per trial. Therpaist cues pt for hand placement, foot block. She tends to lift LLE from ground, demo sxs L sided neglect. Cues for foot placement and able to stand with R sided lean. Cued on L side for maintain midline-pt with increased difficult. Unable to ambulate. Demo poor eccentric control to sit Stand to sit: Max Assist Ambulation Did not assess this session. Unable Coordination: WFL alt toe tap WFL, finger-nose WFL; difficulty to asses heel-wallace 2/2 hip flexor weakness/body habitus Denies numbness/tingling BLE Visual neglect test WFL Impaired sensory neglect test when tested on UE and LE, sxs of L sided neglect evident in testing and functional mobility/balance Balance: Posture: fair Sitting - Static: SBA Sitting - Dynamic: Min Assist Standing - Static: Max Assist Standing - Dynamic: Max Assist Outcome Measures AM-PAC How much HELP from another person do you currently need Turning from your back to your side while in a flat bed without using bedrails?: A Little Moving from lying on your back to sitting on the side of a flat bed without using bedrails?: A Lot Moving to and from a bed to a chair (including a wheelchair)?: Total Standing up from a chair using your arms (wheelchair or bedside chair)?: A Lot Walking in a hospital room?: Total Stair climbing assessed?: No AM-[facility] Inpatient Mobility Raw Score (No Stairs) : 9 -[facility] Plan Pt would benefit from skilled acute PT services to address Strengthening, Balance Training, Functional Mobility Training, Endurance Training, Gait Training, Neuromuscular Re-Education Training, Pain Management, Safety Education and Training, Patient/Caregiver Training, Equipment Evaluation/Education, and Positioning. Frequency: 7 visits during current hospital admission or until additional recommendations are made Barriers: None Safety/Education Safety Safety Devices in place: All fall risk precautions in place, call light within reach, left in bed, bed alarm in place, gait belt, patient at risk for falls, and nurse notified Restraints: No Education Education Given To: patient Education Provided: PT Role, PT Goals, Gait Training, Plan of Care, Precautions, Transfer Training, Energy Conservation, Orientation, Equipment, Fall Prevention Education, Discharge Recommendations, and Benefits of Increasing Activity Education Method: Verbal and Demonstration Barriers to Learning: Cognition Education Outcome: Verbalized Understanding, Demonstrated Understanding, and Continued Education Needed Goals Patient Stated Goal: None stated Encounter Problems Encounter Problems (Active) Balance Patient will maintain dynamic standing balance for 2 minutes with mod assist in order to demonstrate decreased risk of falling. Start: 12/17/23 Expected End: 12/24/23 Exercise Patient will complete lower extremity exercises for 1-2 sets / 5-10 reps in order to improve strength and activity tolerance for mobility. Start: 12/17/23 Expected End: 12/24/23 Mobility Patient will ambulate 10 feet with min assist and rolling walker in order to improve safety and independence with mobility. Start: 12/17/23 Expected End: 12/24/23 Transfers Patient will perform bed mobility with SBA in order to improve independence and prepare for out of bed mobility. Start: 12/17/23 Expected End: 12/24/23 Patient will complete sit to stand transfer with mod assist to rolling walker in order to improve safety and prepare for out of bed mobility. Start: 12/17/23 Expected End: 12/24/23 Therapy Time Individual Co-treatment Time In 0801 Time Out 0816 Minutes 15 Sahil Deluca PT Patient's Physical Therapy Plan of Care supervision is transferred to a [facility] Physical Therapist. Goals and/or treatment plan was established in collaboration with patient/family/other representatives. TETO student Progress Note 12/17/2023 Subjective: Admit Date: 12/16/2023 PCP: Evi Guevara Room#: B2-256/B2-256 A BRIEF HOSPITAL COURSE: Carline is a 77 y.o. female with past medical history below who presents with chief complaint listed above. Patient states non-radiating sudden, intermittent pounding headache to the forehead started about 3 days ago. She has had similar symptoms in the past that were more intense compared to today. She is currently resident nursing facility. They have been treating the headache which was thought to be a migraine headache. Does get relief with treatment and a cool wash cloth on her forehead but it seems to come back. Lights and candy exacerbate her headache symptoms. Headaches at their worst are an 8, but currently a 0. Then yesterday afternoon, she also developed some left-sided arm and leg tingling. Patient became concerned because these were symptoms of she had with her previous stroke about 8 years ago. Notes symptoms are primarily tingling but also feels like the left side slightly weaker. She does note some mild residual weakness from the previous stroke. No recent falls or any injuries. No associated chest pain, shortness of breath, vision changes including blurry, double, or floaters, difficult producing speech, abdominal pain, vomiting, diarrhea, dysuria, or vertigo. Patient is taking aspirin and enoxaparin as blood thinners. Past medical history of hypertension and currently taking labetalol also on atorvastatin. Family history is positive for 2 sisters with recurrent migraines. In the ED, labs showed BUN 27, Cr 1.21, eGFR 46.3. CT head neck angio with and without IV contrast revealed no acute intracranial abnormalities. EKG completed and showed sinus bradycardia with abnormal R-wave progression with a borderline repolarization abnormality. Admitted for further evaluation. Interval History: No overnight issues. Carline is A&Ox2, which is her baseline. She has no complaints of headache or vision changes today. No N/V, chest pain, shortness of breath, cough. The numbness and tingling that she had yesterday has subsided. Case and plan discussed with patient and bedside nurse. All questions answered. Adult diet Regular 24HR INTAKE/OUTPUT: Intake/Output Summary (Last 24 hours) at 12/17/2023 0816 Last data filed at 12/17/2023 0622 Gross per 24 hour Intake 876.67 ml Output 700 ml Net 176.67 ml Past Medical History: Past Medical History: Diagnosis Date Diabetes mellitus (HCC) Hypertension Stroke (HCC) LABS: CBC: Recent Labs 12/16/23 1323 12/17/23 0552 WBC 7.4 5.4 RBC 4.09 3.73* HGB 13.3 12.0 HCT 39.1 35.7 MCV 95.6 95.7 RDW 13.3 13.5 PLT 259 211 BMP: Recent Labs 12/16/23 1323 12/17/23 0552 NA 139 141 K 3.8 3.7 CL 104 107 CO2 28 24 BUN 27* 26* CREATININE 1.21* 1.20* GLUCOSE 87 117* CALCIUM 9.0 8.9 ANIONGAP 8 10 LIVER PROFILE: Recent Labs 12/16/23 1323 12/17/23 0552 AST 25 21 ALT 15 14 BILITOT 0.7 0.5 ALKPHOS 118 133* PROT 6.9 6.0* PT/INR: Recent Labs 12/16/23 132 PROTIME 10.9 INR 1.0 CARDIAC ENZYMES: Recent Labs 12/16/23 1323 12/16/23 1655 12/16/23 1900 TROPONINI <0.012 <0.012 <0.012 Procalcitonin: No results found for: PROCAL COVID-19 PCR: No results for input(s): COVID19 in the last 72 hours. Objective: Vitals: BP 146/74 (BP Location: Left arm, Patient Position: Lying) Pulse 68 Temp 37.4 C (99.3 F) (Temporal) Resp 18 Ht 5' 6 (1.676 m) Wt 205 lb 7.5 oz (93.2 kg) SpO2 97% BMI 33.16 kg/m Pulse Ox: SpO2 Av.1 % Min: 94 % Max: 100 % Supplemental O2: Physical Exam Constitutional: Appearance: She is obese. Cardiovascular: Rate and Rhythm: Normal rate and regular rhythm. Pulses: Normal pulses. Heart sounds: Normal heart sounds. Pulmonary: Effort: Pulmonary effort is normal. Breath sounds: Normal breath sounds. Musculoskeletal: General: No swelling or tenderness. Right lower leg: No edema. Left lower leg: No edema. Neurological: Mental Status: She is alert. Motor: Weakness present. Comments: Chronic LUE and LLE weakness. Medications: Scheduled PRN aspirin, 81 mg, Oral, Daily Or aspirin, 300 mg, Rectal, Daily atorvastatin, 40 mg, Oral, Nightly enoxaparin, 40 mg, SubCUTAneous, Daily sodium chloride 0.9%, 5-40 mL, IntraVENous, q12h PRN medications: acetaminophen OR acetaminophen, bisacodyl, labetalol, ondansetron ODT OR ondansetron, perflutren protein A microsphere (Optison) 3 mL in sodium chloride (PF) 0.9 % 10 mL IV syringe, polyethylene glycol (PEG) 3350, sodium chloride, sodium chloride 0.9% Continuous sodium chloride, 50 mL/hr, Last Rate: 50 mL/hr (12/17/23 06) Assessment Data: (CAT1) Reviewed 3 or more notes from different specialty or health system (each=1). (CAT1) Reviewed 3 or more labs/studies ordered by another provider not previously counted (each=1, panels count as 1). (LOW: 2x CAT1 or independent historian MOD: 3x CAT1 or 1x CAT3 EXTENSIVE: 3x CAT1 and 1x CAT3) Acute, acute on chronic, unstable/uncontrolled chronic problems/diagnoses: LUE and LLE paresthesia Intractable headache HTN urgency Stable chronic problems affecting care, new non-acute diagnoses: Hx of CVA with residual left sided weakness HTN HLD Class 3 obesity Plan As a result of the above findings & factors, the following mgmt was pursued: - Continue neuro checks every 4 hours. Awaiting neuro consultation - Awaiting patient to receive MRI and TTE today. After imaging is completed she can be discharged back to the group home. - Discussed with nurse and TCC during IDR's this morning - am labs, replace lytes prn - PT/OT/CM/SW - delirium precautions: increase activity - DVT prophylaxis: enoxaparin and encourage ambulation Complexity: Acute illness or injury posing a threat to life or body function (HIGH). Risk: Admission to hospital-level care was considered or occurred (HIGH). Advance Directive: Prior Anticipated Discharge - Date - 12/16 - Location - Skilled Facility - Pending the following - MRI brain/TTE/Neuro recs Total time spent (which include face to face and non face to face encounters) : 50 minutes Toxic drug monitoring/narrow therapeutic index drug monitoring : # Drug name : Lovenox # Route administered : subq # Method of monitoring : CBC Extended Emergency Contact Information Primary Emergency Contact: oRsas Kwon Mobile Relation: Son Secondary Emergency Contact: Nioclette Ren Mobile Relation: Sister Lesly Dyer [facility] [place] - S2 12/17/23 8:16 AM Speech-Language Pathology Patient passed the Nursing Swallowing Screening and is on a Regular diet, Cardiac: Low fat, Low cholesterol. High Fiber, LEXI with Thin liquids. Completed speech orders as per stroke protocol. documented in this encounter [facility] 12-17-2023 Note Formatting of this n ote might be different from the original. Referral placed to RETURN [facility] via [facility] per TCC request. Await review and response regarding ability to accept. TCC notified. [facility] 12-17-2023 Note Formatting of this n ote might be different from the original. Referral placed to [facility] via [facility] per [facility] request. Await review and response regarding ability to accept. TCC notified. [facility] 12-17-2023 Note [facility] request. Await review and response regarding ability to accept. TCC notified. [facility] 12-17-2023 Note Hospitalist Discharg e Summary Carline Villarreal : 1945 Admit date: 12/16/2023 Discharge date: 12/17/2023 Admitting Physician: Bartolo Meehan MD Primary Care Physician: Evi Guevara Visit Status: ADMIT Code Status: Prior BRIEF HOSPITAL COURSE: Carline is a 77 y.o. female with past medical history below who presents with chief complaint listed above. Patient states non-radiating sudden, intermittent pounding headache to the forehead started about 3 days ago. She has had similar symptoms in the past that were more intense compared to today. She is currently resident nursing facility. They have been treating the headache which was thought to be a migraine headache. Does get relief with treatment and a cool wash cloth on her forehead but it seems to come back. Lights and candy exacerbate her headache symptoms. Headaches at their worst are an 8, but currently a 0. Then yesterday afternoon, she also developed some left-sided arm and leg tingling. Patient became concerned because these were symptoms of she had with her previous stroke about 8 years ago. Notes symptoms are primarily tingling but also feels like the left side slightly weaker. She does note some mild residual weakness from the previous stroke. No recent falls or any injuries. No associated chest pain, shortness of breath, vision changes including blurry, double, or floaters, difficult producing speech, abdominal pain, vomiting, diarrhea, dysuria, or vertigo. Patient is taking aspirin and enoxaparin as blood thinners. Past medical history of hypertension and currently taking labetalol also on atorvastatin. Family history is positive for 2 sisters with recurrent migraines. In the ED, labs showed BUN 27, Cr 1.21, eGFR 46.3. CT head neck angio with and without IV contrast revealed no acute intracranial abnormalities. EKG completed and showed sinus bradycardia with abnormal R-wave progression with a borderline repolarization abnormality. Admitted for further evaluation. Stroke imaging consisting of CT head, CTA head and neck and MRI brain negative. Symptoms are likely from residual CVA in the past. Medically stable for discharge at this time Acute, acute on chronic, unstable/uncontrolled chronic problems/diagnoses: Left UE and LE paresthesia Intractable HDEZ HTN urgency Stable chronic problems affecting care, new non-acute diagnoses: Hx of CVA with residual left sided weakness HTN HLD Class 3 obesity Past Medical History: Diagnosis Date Diabetes mellitus (HCC) Hypertension Stroke (HCC) Procedures: None Hospital Course: See discharge diagnoses list above and medication adjustments below in med rec.The patient is discharged in improved and stable condition. Consults: IP CONSULT TO CASE MANAGEMENT IP CONSULT TO NEUROLOGY Discharge Instructions: Diet: Dietary Orders (From admission, onward) Start Ordered 12/16/231658 Adult diet Regular Diet effective now Question: Diet type Answer: Regular 12/16/231658 Activity: as tolerated Recommended Outpatient Tests: Disposition: Patient discharged in stable condition to SNF . Spent 45 min discharging the patient and coming up with patient discharge plan. Vitals: BP 146/74 (BP Location: Left arm, Patient Position: Lying) Pulse 68 Temp 37.4 ?C (99.3 ?F) (Temporal) Resp 18 Ht 5' 6 (1.676 m) Wt 205 lb 7.5 oz (93.2 kg) SpO2 97% BMI 33.16 kg/m? Pulse Ox: SpO2 Av.1 % Min: 94 % Max: 100 % Supplemental O2: Physical Exam Constitutional: Appearance: She is obese. She is not ill-appearing. Cardiovascular: Rate and Rhythm: Normal rate. Heart sounds: No murmur heard. Pulmonary: Effort: No respiratory distress. Breath sounds: No wheezing. Abdominal: General: There is no distension. Tenderness: There is no abdominal tenderness. Musculoskeletal: General: No swelling. Neurological: Mental Status: Mental status is at baseline. Motor: Weakness (Chronic LUE and LLE weakness) present. LABS: Recent Labs 12/16/23 1323 12/17/23 0552 NA 139 141 K 3.8 3.7 CL 104 107 CO2 28 24 BUN 27* 26* CREATININE 1.21* 1.20* GLUCOSE 87 117* CALCIUM 9.0 8.9 Recent Labs 12/16/23 1323 12/17/23 0552 WBC 7.4 5.4 RBC 4.09 3.73* HGB 13.3 12.0 HCT 39.1 35.7 MCV 95.6 95.7 MCH 32.5 32.2 MCHC 34.0 33.6 RDW 13.3 13.5 PLT 259 211 MPV 10.5 10.5 Discharge Medications: Medication List CONTINUE taking these medications acetaminophen 325 MG tablet Commonly known as: Tylenol aluminum-magnesium hydroxide-simethicone 400-400-40 MG/5ML suspension Commonly known as: Maalox MAX atorvastatin 40 MG tablet Commonly known as: Lipitor * bisacodyl 5 MG EC tablet Commonly known as: Dulcolax * bisacodyl 5 MG EC tablet Commonly known as: Dulcolax busPIRone 5 MG tablet Commonly known as: Buspar cloNIDine 0.2 MG tablet Commonly known as: Catapres clopidogrel 75 MG tablet Commonly known as: Plavix DULo (more content not included)... [facility] 12-17-2023 Hospital course Narrative Images from the original note were not included. Hospitalist Discharge Summary Carline Villarreal : 1945 Admit date: 12/16/2023 Discharge date: 12/17/2023 Admitting Physician: Bartolo Meehan MD Primary Care Physician: Evi Guevara Visit Status: ADMIT Code Status: Prior BRIEF HOSPITAL COURSE: Carline is a 77 y.o. female with past medical history below who presents with chief complaint listed above. Patient states non-radiating sudden, intermittent pounding headache to the forehead started about 3 days ago. She has had similar symptoms in the past that were more intense compared to today. She is currently resident nursing facility. They have been treating the headache which was thought to be a migraine headache. Does get relief with treatment and a cool wash cloth on her forehead but it seems to come back. Lights and candy exacerbate her headache symptoms. Headaches at their worst are an 8, but currently a 0. Then yesterday afternoon, she also developed some left-sided arm and leg tingling. Patient became concerned because these were symptoms of she had with her previous stroke about 8 years ago. Notes symptoms are primarily tingling but also feels like the left side slightly weaker. She does note some mild residual weakness from the previous stroke. No recent falls or any injuries. No associated chest pain, shortness of breath, vision changes including blurry, double, or floaters, difficult producing speech, abdominal pain, vomiting, diarrhea, dysuria, or vertigo. Patient is taking aspirin and enoxaparin as blood thinners. Past medical history of hypertension and currently taking labetalol also on atorvastatin. Family history is positive for 2 sisters with recurrent migraines. In the ED, labs showed BUN 27, Cr 1.21, eGFR 46.3. CT head neck angio with and without IV contrast revealed no acute intracranial abnormalities. EKG completed and showed sinus bradycardia with abnormal R-wave progression with a borderline repolarization abnormality. Admitted for further evaluation. Stroke imaging consisting of CT head, CTA head and neck and MRI brain negative. Symptoms are likely from residual CVA in the past. Medically stable for discharge at this time Acute, acute on chronic, unstable/uncontrolled chronic problems/diagnoses: Left UE and LE paresthesia Intractable HDEZ HTN urgency Stable chronic problems affecting care, new non-acute diagnoses: Hx of CVA with residual left sided weakness HTN HLD Class 3 obesity Past Medical History: Diagnosis Date Diabetes mellitus (HCC) Hypertension Stroke (HCC) Procedures: None Hospital Course: See discharge diagnoses list above and medication adjustments below in med rec.The patient is discharged in improved and stable condition. Consults: IP CONSULT TO CASE MANAGEMENT IP CONSULT TO NEUROLOGY Discharge Instructions: Diet: Dietary Orders (From admission, onward) Start Ordered 12/16/231658 Adult diet Regular Diet effective now Question: Diet type Answer: Regular 12/16/231658 Activity: as tolerated Recommended Outpatient Tests: Disposition: Patient discharged in stable condition to SNF . Spent 45 min discharging the patient and coming up with patient discharge plan. Vitals: BP 146/74 (BP Location: Left arm, Patient Position: Lying) Pulse 68 Temp 37.4 C (99.3 F) (Temporal) Resp 18 Ht 5' 6 (1.676 m) Wt 205 lb 7.5 oz (93.2 kg) SpO2 97% BMI 33.16 kg/m Pulse Ox: SpO2 Av.1 % Min: 94 % Max: 100 % Supplemental O2: Physical Exam Constitutional: Appearance: She is obese. She is not ill-appearing. Cardiovascular: Rate and Rhythm: Normal rate. Heart sounds: No murmur heard. Pulmonary: Effort: No respiratory distress. Breath sounds: No wheezing. Abdominal: General: There is no distension. Tenderness: There is no abdominal tenderness. Musculoskeletal: General: No swelling. Neurological: Mental Status: Mental status is at baseline. Motor: Weakness (Chronic LUE and LLE weakness) present. LABS: Recent Labs 12/16/23 1323 12/17/23 0552 NA 139 141 K 3.8 3.7 CL 104 107 CO2 28 24 BUN 27* 26* CREATININE 1.21* 1.20* GLUCOSE 87 117* CALCIUM 9.0 8.9 Recent Labs 12/16/23 1323 12/17/23 0552 WBC 7.4 5.4 RBC 4.09 3.73* HGB 13.3 12.0 HCT 39.1 35.7 MCV 95.6 95.7 MCH 32.5 32.2 MCHC 34.0 33.6 RDW 13.3 13.5 PLT 259 211 MPV 10.5 10.5 Discharge Medications: Medication List CONTINUE taking these medications acetaminophen 325 MG tablet Commonly known as: Tylenol aluminum-magnesium hydroxide-simethicone 400-400-40 MG/5ML suspension Commonly known as: Maalox MAX atorvastatin 40 MG tablet Commonly known as: Lipitor * bisacodyl 5 MG EC tablet Commonly known as: Dulcolax * bisacodyl 5 MG EC tablet Commonly known as: Dulcolax busPIRone 5 MG tablet Commonly known as: Buspar cloNIDine 0.2 MG tablet Commonly known as: Catapres clopidogrel 75 MG tablet Commonly known as: Plavix DULoxetine [address] capsule Commonly known as: Cymbalta escitalopram 10 MG tablet Commonly known as: Lexapro famotidine 20 MG tablet Commonly known as: Pepcid gabapentin 300 MG capsule Commonly known as: Neurontin hydrALAZINE 25 MG tablet Commonly known as: Apresoline hydroCHLOROthiazide 50 MG tablet Commonly known as: HYDRODiuril ibuprofen 200 MG tablet levothyroxine 50 MCG tablet Commonly known as: Synthroid, Levoxyl lisinopril 5 MG tablet magnesium hydroxide 400 MG/5ML suspension Commonly known as: Milk of Magnesia melatonin 1 MG tablet metoprolol tartrate 50 MG tablet Commonly known as: Lopressor oxyCODONE-acetaminophen 5-325 MG tablet Commonly known as: Percocet polyethylene glycol (PEG) 3350 17 g packet Commonly known as: Miralax SUMAtriptan 50 MG tablet Commonly known as: Imitrex traMADol 50 MG tablet Commonly known as: Ultram * This list has 2 medication(s) that are the same as other medications prescribed for you. Read the directions carefully, and ask your doctor or other care provider to review them with you. Recommended Follow-up: Evi Guevara [address] [facility] [id number] Schedule an appointment as soon as possible for a visit in 1 week(s) Hospital follow up Complexity of Follow up: [] Moderate Complexity: follow up within 7-14 calendar days (39203) [x] Severe Complexity: follow up within 7 calendar days (08588) Follow up Testing, Pending results or Referrals at Transitional Care Visit: [x] yes [] no Instructions to MA: Please call patient on day after discharge (must document patient contacted within 2 business days of discharge). Follow up questions for MA: 1. Did you get medications filled and taking them as instructed from discharge? 2. Are you following your discharge instructions from your hospital stay? 3. Please confirm patient is scheduled for a follow up appointment within the above time frame. Signed: Bartolo Meehan MD Division of Hospitalist Medicine [facility] 12/17/2023, 10:54 AM documented in this encounter [facility] 12-17-2023 Note Hospitalist Progress Note 12/17/2023 Subjective: Admit Date: 12/16/2023 PCP: Evi Guevara Room#: B2-256/[id number] A BRIEF HOSPITAL COURSE: Carline is a 77 y.o. female with past medical history below who presents with chief complaint listed above. Patient states non-radiating sudden, intermittent pounding headache to the forehead started about 3 days ago. She has had similar symptoms in the past that were more intense compared to today. She is currently resident nursing facility. They have been treating the headache which was thought to be a migraine headache. Does get relief with treatment and a cool wash cloth on her forehead but it seems to come back. Lights and candy exacerbate her headache symptoms. Headaches at their worst are an 8, but currently a 0. Then yesterday afternoon, she also developed some left-sided arm and leg tingling. Patient became concerned because these were symptoms of she had with her previous stroke about 8 years ago. Notes symptoms are primarily tingling but also feels like the left side slightly weaker. She does note some mild residual weakness from the previous stroke. No recent falls or any injuries. No associated chest pain, shortness of breath, vision changes including blurry, double, or floaters, difficult producing speech, abdominal pain, vomiting, diarrhea, dysuria, or vertigo. Patient is taking aspirin and enoxaparin as blood thinners. Past medical history of hypertension and currently taking labetalol also on atorvastatin. Family history is positive for 2 sisters with recurrent migraines. In the ED, labs showed BUN 27, Cr 1.21, eGFR 46.3. CT head neck angio with and without IV contrast revealed no acute intracranial abnormalities. EKG completed and showed sinus bradycardia with abnormal R-wave progression with a borderline repolarization abnormality. Admitted for further evaluation. Interval History: No overnight issues. Feels the same this am. No acute changes. VSS. Case and plan discussed with patient and bedside nurse. All questions answered. Adult diet Regular 24HR INTAKE/OUTPUT: Intake/Output Summary (Last 24 hours) at 12/17/2023 1011 Last data filed at 12/17/2023 0622 Gross per 24 hour Intake 876.67 ml Output 700 ml Net 176.67 ml Past Medical History: Past Medical History: Diagnosis Date Diabetes mellitus (HCC) Hypertension Stroke (HCC) LABS: CBC: Recent Labs 12/16/23 1323 12/17/23 0552 WBC 7.4 5.4 RBC 4.09 3.73* HGB 13.3 12.0 HCT 39.1 35.7 MCV 95.6 95.7 RDW 13.3 13.5 PLT 259 211 BMP: Recent Labs 12/16/23 1323 12/17/23 0552 NA 139 141 K 3.8 3.7 CL 104 107 CO2 28 24 BUN 27* 26* CREATININE 1.21* 1.20* GLUCOSE 87 117* CALCIUM 9.0 8.9 ANIONGAP 8 10 LIVER PROFILE: Recent Labs 12/16/23 1323 12/17/23 0552 AST 25 21 ALT 15 14 BILITOT 0.7 0.5 ALKPHOS 118 133* PROT 6.9 6.0* PT/INR: Recent Labs 12/16/23 1323 PROTIME 10.9 INR 1.0 CARDIAC ENZYMES: Recent Labs 12/16/23 1323 12/16/23 1655 12/16/23 1900 TROPONINI <0.012 <0.012 <0.012 Procalcitonin: No results found for: PROCAL COVID-19 PCR: No results for input(s): COVID19 in the last 72 hours. Objective: Vitals: BP 146/74 (BP Location: Left arm, Patient Position: Lying) Pulse 68 Temp 37.4 ?C (99.3 ?F) (Temporal) Resp 18 Ht 5' 6 (1.676 m) Wt 205 lb 7.5 oz (93.2 kg) SpO2 97% BMI 33.16 kg/m? Pulse Ox: SpO2 Av.1 % Min: 94 % Max: 100 % Supplemental O2: Physical Exam Constitutional: Appearance: She is obese. She is not ill-appearing. Cardiovascular: Rate and Rhythm: Normal rate. Heart sounds: No murmur heard. Pulmonary: Effort: No respiratory distress. Breath sounds: No wheezing. Abdominal: General: There is no distension. Tenderness: There is no abdominal tenderness. Musculoskeletal: General: No swelling. Neurological: Mental Status: Mental status is at baseline. Motor: Weakness (Chronic LUE and LLE weakness) present. Medications: Scheduled PRN aspirin, 81 mg, Oral, Daily Or aspirin, 300 mg, Rectal, Daily atorvastatin, 40 mg, Oral, Nightly enoxaparin, 40 mg, SubCUTAneous, Daily sodium chloride 0.9%, 5-40 mL, IntraVENous, q12h PRN medications: acetaminophen OR acetaminophen, bisacodyl, labetalol, ondansetron ODT OR ondansetron, perflutren protein A microsphere (Optison) 3 mL in sodium chloride (PF) 0.9 % 10 mL IV syringe, polyethylene glycol (PEG) 3350, sodium chloride, sodium chloride 0.9% Continuous sodium chloride, 50 mL/hr, Last Rate: 50 mL/hr (12/17/23 0622) Assessment Data: (CAT1) Reviewed 3 or more notes from different specialty or health system (each=1). (CAT1) Reviewed 3 or more labs/studies ordered by another provider not previously counted (each=1, panels count as 1). (CAT1) Reviewed 3 or more labs/studies previously ordered by me not previously counted (each=1, panels count as 1). (CAT1) Ordered 3 or more new labs and (more content not included)... [facility] 12-17-2023 Note PHYSICAL THERAPY [facility] Initial Evaluation Name/MRN: Carline Villarreal ([id number]) Evaluation Date: 12/17/2023 Date of : 1945 Admission Date: 12/16/2023 1:05 PM Age: 77 y.o. Room/Bed: [facility]256/[facility] A Discharge Recommendation: IP Rehab Other: TBD at discharge location Assessment IMPRESSION: [facility] with HDEZ and weakness. CT demo small acute infarcts R parietal lobe, also h/o CVA with residual L side weakness. At baseline is IND with FWW reports walking ~1 block/day at ECF. She demo bed mobility mod A, transfer to W x3 trials max x1-max x2 with sxs of L sided neglect. She demo global weakness L>R. She is at increased falls risk and would benefit from intensive multidisciplinary therapies to promote mobility and functional return Diagnosis: acute R parietal lobe infarct Prognosis: good Performance Deficits /Impairments: Decreased Functional Mobility, Decreased Strength, Decreased Safety Awareness, Decreased Endurance, Decreased Balance, and Decreased Coordination Decision Making: Medium Complexity Subjective Per RN pt okay for therapy, is pleasant and agree to PT Pain: Pt denies any current pain. Past Medical History: Past Medical History: Diagnosis Date Diabetes mellitus (HCC) Hypertension Stroke (HCC) Past Surgical History: History reviewed. No pertinent surgical history. Admission Diagnosis: Patient Active Problem List Diagnosis Date Noted Left-sided weakness 12/16/2023 Medical Precautions: No active isolations Proper PPE donned/doffed in accordance with facility standards. Fall Risk: Oleary Fall Risk Score: 95 (High Risk) Precautions/Restrictions: N/A Family/Caregiver Present: none Overall Cognitive Status: Exceptions - Following commands: follows one step commands consistently - Problem solving: assistance required to generate solutions, assistance required to implement solutions, assistance required to identify errors made, assistance required to correct errors made, and decreased awareness of errors - Initiation: requires cues for some - Sequencing: requires cues for some Overall Orientation Status: Oriented to Person, Disoriented to Situation, Disoriented to Time, and Disoriented to Place Vision: wears glasses at all times and and are being used during the eval Hearing: normal Social/Functional History Patient admitted from SNF. [facility] Assistive Equipment: front wheeled walker Prior Level of Function ADL Assistance: Independent Ambulation Assistance: Independent Device(s) used: front wheeled walker Transfer Assistance: Independent Objective Lower Extremity Assessment AROM: Exceptions: BLE difficulty moving full ROM vs gravity, PROM appears WFL (see OT note for BUE-residual deficits LUE) PROM: WFL Strength: Exceptions: RLE: hip flexion 3/5 knee ext 4/5 ankle DF 4/5 ankle PF 5/5 LLE: hip flexion: 3-/5 knee ext 4-/5 ankle DF 4/5 ankle PF 4/5 Bed Mobility: Supine to sit: Mod Assist, Pt denies dizziness. She demo supine to sit with mod A to manage BLE and elevate trunk, Initially demo R sided lean in sit, can correct to midline with cues. She return to supine mod A for BLE management Sit to supine: Mod Assist Transfers Sit to stand: Max Assist, Pt transfer to FWW x3 trials from bed 2 trials max x1, last trial max x2. She is able to stand <5 sec per trial. Therpaist cues pt for hand placement, foot block. She tends to lift LLE from ground, demo sxs L sided neglect. Cues for foot placement and able to stand with R sided lean. Cued on L side for maintain midline-pt with increased difficult. Unable to ambulate. Demo poor eccentric control to sit Stand to sit: Max Assist Ambulation Did not assess this session. Unable Coordination: WFL alt toe tap WFL, finger-nose WFL; difficulty to asses heel-wallace 2/2 hip flexor weakness/body habitus Denies numbness/tingling BLE Visual neglect test WFL Impaired sensory neglect test when tested on UE and LE, sxs of L sided neglect evident in testing and functional mobility/balance Balance: Posture: fair Sitting - Static: SBA Sitting - Dynamic: Min Assist Standing - Static: Max Assist Standing - Dynamic: Max Assist Outcome Measures AM-PAC How much HELP from another person do you currently need Turning from your back to your side while in a flat bed without using bedrails?: A Little Moving from lying on your back to sitting on the side of a flat bed without using bedrails?: A Lot Moving to and from a bed to a chair (including a wheelchair)?: Total Standing up from a chair using your arms (wheelchair or bedside chair)?: A Lot Walking in a hospital room?: Total Stair climbing assessed?: No AM-PAC Inpatient Mobility Raw Score (No Stairs) : 9 -[facility] Plan Pt would benefit from skilled acute PT services to address Strengthening, Balance Training, Functional Mobility Training, Endurance Training, Gait Tr (more content not included)... [facility] 12-17-2023 Note TETO student Progress Note 12/17/2023 Subjective: Admit Date: 12/16/2023 PCP: Evi Guevara Room#: B2-256/[id number] A BRIEF HOSPITAL COURSE: Carline is a 77 y.o. female with past medical history below who presents with chief complaint listed above. Patient states non-radiating sudden, intermittent pounding headache to the forehead started about 3 days ago. She has had similar symptoms in the past that were more intense compared to today. She is currently resident nursing facility. They have been treating the headache which was thought to be a migraine headache. Does get relief with treatment and a cool wash cloth on her forehead but it seems to come back. Lights and candy exacerbate her headache symptoms. Headaches at their worst are an 8, but currently a 0. Then yesterday afternoon, she also developed some left-sided arm and leg tingling. Patient became concerned because these were symptoms of she had with her previous stroke about 8 years ago. Notes symptoms are primarily tingling but also feels like the left side slightly weaker. She does note some mild residual weakness from the previous stroke. No recent falls or any injuries. No associated chest pain, shortness of breath, vision changes including blurry, double, or floaters, difficult producing speech, abdominal pain, vomiting, diarrhea, dysuria, or vertigo. Patient is taking aspirin and enoxaparin as blood thinners. Past medical history of hypertension and currently taking labetalol also on atorvastatin. Family history is positive for 2 sisters with recurrent migraines. In the ED, labs showed BUN 27, Cr 1.21, eGFR 46.3. CT head neck angio with and without IV contrast revealed no acute intracranial abnormalities. EKG completed and showed sinus bradycardia with abnormal R-wave progression with a borderline repolarization abnormality. Admitted for further evaluation. Interval History: No overnight issues. Carline is A&Ox2, which is her baseline. She has no complaints of headache or vision changes today. No N/V, chest pain, shortness of breath, cough. The numbness and tingling that she had yesterday has subsided. Case and plan discussed with patient and bedside nurse. All questions answered. Adult diet Regular 24HR INTAKE/OUTPUT: Intake/Output Summary (Last 24 hours) at 12/17/2023 0816 Last data filed at 12/17/2023 0622 Gross per 24 hour Intake 876.67 ml Output 700 ml Net 176.67 ml Past Medical History: Past Medical History: Diagnosis Date Diabetes mellitus (HCC) Hypertension Stroke (HCC) LABS: CBC: Recent Labs 12/16/23 1323 12/17/23 0552 WBC 7.4 5.4 RBC 4.09 3.73* HGB 13.3 12.0 HCT 39.1 35.7 MCV 95.6 95.7 RDW 13.3 13.5 PLT 259 211 BMP: Recent Labs 12/16/23 1323 12/17/23 0552 NA 139 141 K 3.8 3.7 CL 104 107 CO2 28 24 BUN 27* 26* CREATININE 1.21* 1.20* GLUCOSE 87 117* CALCIUM 9.0 8.9 ANIONGAP 8 10 LIVER PROFILE: Recent Labs 12/16/23 1323 12/17/23 0552 AST 25 21 ALT 15 14 BILITOT 0.7 0.5 ALKPHOS 118 133* PROT 6.9 6.0* PT/INR: Recent Labs 12/16/23 1323 PROTIME 10.9 INR 1.0 CARDIAC ENZYMES: Recent Labs 12/16/23 1323 12/16/23 1655 12/16/23 1900 TROPONINI <0.012 <0.012 <0.012 Procalcitonin: No results found for: PROCAL COVID-19 PCR: No results for input(s): COVID19 in the last 72 hours. Objective: Vitals: BP 146/74 (BP Location: Left arm, Patient Position: Lying) Pulse 68 Temp 37.4 ?C (99.3 ?F) (Temporal) Resp 18 Ht 5' 6 (1.676 m) Wt 205 lb 7.5 oz (93.2 kg) SpO2 97% BMI 33.16 kg/m? Pulse Ox: SpO2 Av.1 % Min: 94 % Max: 100 % Supplemental O2: Physical Exam Constitutional: Appearance: She is obese. Cardiovascular: Rate and Rhythm: Normal rate and regular rhythm. Pulses: Normal pulses. Heart sounds: Normal heart sounds. Pulmonary: Effort: Pulmonary effort is normal. Breath sounds: Normal breath sounds. Musculoskeletal: General: No swelling or tenderness. Right lower leg: No edema. Left lower leg: No edema. Neurological: Mental Status: She is alert. Motor: Weakness present. Comments: Chronic LUE and LLE weakness. Medications: Scheduled PRN aspirin, 81 mg, Oral, Daily Or aspirin, 300 mg, Rectal, Daily atorvastatin, 40 mg, Oral, Nightly enoxaparin, 40 mg, SubCUTAneous, Daily sodium chloride 0.9%, 5-40 mL, IntraVENous, q12h PRN medications: acetaminophen OR acetaminophen, bisacodyl, labetalol, ondansetron ODT OR ondansetron, perflutren protein A microsphere (Optison) 3 mL in sodium chloride (PF) 0.9 % 10 mL IV syringe, polyethylene glycol (PEG) 3350, sodium chloride, sodium chloride 0.9% Continuous sodium chloride, 50 mL/hr, Last Rate: 50 mL/hr (12/17/23621) Assessment Data: (CAT1) Reviewed 3 or more notes from different specialty or health system (each=1). (CAT1) Reviewed 3 or more labs/studies ordered by another provider not previously counted (each=1, panels co (more content not included)... [facility] 12-16-2023 Note Sinus bradycardia Abnormal R-wave progression, early transition No acute change compared to first previous EKG. Electronically Signed On 12-16-2023 22:33:18 EDT by Avi PATEL 12-16-2023 Note Sinus bradycardia Abnormal R-wave progression, early transition No acute change compared to first previous EKG. Electronically Signed On 12-16-2023 22:33:18 EDT by [facility] 12-16-2023 Note IMPRESSION: Sinus bradycardia Abnormal R-wave progression, early transition No acute change compared to first previous EKG. Electronically Signed On 12-16-2023 22:33:18 EDT by [facility] 12-16-2023 Note Sinus bradycardia Abnormal R-wave progression, early transition Borderline repolarization abnormality Electronically Signed On 12-16-2023 21:17:50 EDT by [facility] 12-16-2023 Note Sinus bradycardia Abnormal R-wave progression, early transition Borderline repolarization abnormality Electronically Signed On 12-16-2023 21:17:50 EDT by [facility] 12-16-2023 Note IMPRESSION: Sinus bradycardia Abnormal R-wave progression, early transition Borderline repolarization abnormality Electronically Signed On 12-16-2023 21:17:50 EDT by [facility] 12-16-2023 Hospital Discharge instructions Corina Crump RN - 12/16/2023 6:19 PM EDT Refer to the Understanding Stroke Booklet given to you, written material provided to patient/family, addressing all signs & symptoms of a stroke, which are: sudden numbness or weakness of the face, arm or leg, especially on one side of the body sudden confusion sudden difficulty speaking or understanding sudden trouble seeing in one or both eyes sudden trouble walking,dizziness, loss of balance or coordination sudden severe headache with no known cause syncope or temporary loss of consciousness seizure Explained the need to call EMS ([phone]) immediately if signs & symptoms occur. Discussed medications that the patient is taking, will review medications again prior to discharge, risk factors, and the need for follow-up with a physician/DESKTOP PUBLISHER/PA after discharge. Corina Crump RN on 12/16/23 at 6:19 PM Discussed the patient s personal risk factors for Stroke /TIA with patient/family, and ways to reduce the risk for a recurrent stroke. Patient's personal risk factors which were identified are: [] High blood pressure [] High cholesterol [] Atrial fibrillation [x] Diabetes [x] Smoking/e-cigarettes/vaping [] Smokeless tobacco [x] Overweight [] Lack of Exercise [] Sleep apnea [] Prior heart disease or heart attack [] Excessive alcohol use [] Use of illicit drugs [x] Personal history of previous TIA or stroke [] Family history of stroke or heart disease [] Carotid stenosis [] Heart failure [] Patent Foramen Ovale [x] Migraine [] Hormone replacement therapy [] Current (up to six weeks post ) [] Depression [] Sickle Cell [] Renal insufficiency - chronic [] None Refer to Understanding Stroke Booklet. Advised patient that risk for stroke/TIA can be reduced by modifying/controlling risk factors. Patient advised to take medications as prescribed, which will be detailed in the discharge instructions, and to not stop taking them without consulting a physician. In addition, pt. advised to maintain a healthy diet, exercise regularly and to not smoke. Corina Crump RN on 12/16/23 at 6:19 PM Maria Eugenia Hickman RN - 12/17/2023 12:35 PM EDT Up as tolerated Maria Eugenia Hickman RN - 12/17/2023 12:35 PM EDT Regular diet Maria Eugenia Hickman RN - 12/17/2023 10:47 AM EDT Continuity of Care Form Patient Name: Carline Villarreal : 1945 Admit date: 12/16/2023 Discharge date: Code Status Order: Prior Advance Directives: N Admitting Physician: Bartolo Meehan MD PCP: Evi Guevara Discharging Nurse: Maria Eugenia Hickman RN Discharging Hospital Unit/Room#: B2-256/B2-256 A Discharging Unit Emergency Contact: Extended Emergency Contact Information Primary Emergency Contact: Rosas Kwon Mobile Relation: Son Secondary Emergency Contact: Nicolette Ren Mobile Relation: Sister Past Surgical History: History reviewed. No pertinent surgical history. Immunization History: There is no immunization history on file for this patient. Active Problems: Medical Problems Problem List * (Principal) Left-sided weakness Isolation/Infection: No active isolations No active infections Nurse Assessment: Last Vital Signs: BP 146/74 (BP Location: Left arm, Patient Position: Lying) Pulse 68 Temp 37.4 C (99.3 F) (Temporal) Resp 18 Ht 5' 6 (1.676 m) Wt 205 lb 7.5 oz (93.2 kg) SpO2 97% BMI 33.16 kg/m Last documented pain score (0-10 scale): Last Weight: Wt Readings from Last 1 Encounters: 12/16/23 205 lb 7.5 oz (93.2 kg) Mental Status: LISANDRO Patient Mental Status: disoriented IV Access: LISANDRO IV Access: None Nursing Mobility/ADLs: Walking Minimal assistance Transfer Minimal assistance Bathing Minimal assistance Dressing Minimal assistance Toileting Minimal assistance Feeding Minimal assistance Nuclear Auxiliary Operator Minimal assistance Med Delivery no Wound Care Documentation and Therapy: Elimination: Continence: Bowel: no Bladder: no Urinary Catheter: None Colostomy/Ileostomy/Ileal Conduit: None Date of Last BM: 12/16/23 Intake/Output Summary (Last 24 hours) at 12/17/2023 1047 Last data filed at 12/17/2023 0833 Gross per 24 hour Intake 996.67 ml Output 700 ml Net 296.67 ml I/O last 3 completed shifts: In: 876.7 (9.4 mL/kg) [P.O.:100; I.V.:776.7 (8.3 mL/kg)] Out: 700 (7.5 mL/kg) [Urine:700 (0.2 mL/kg/hr)] Weight: 93.2 kg Safety Concerns: at risk for falls Impairments/Disabilities: none Nutrition Therapy: Current Nutrition Therapy: Oral diet: general Routes of Feeding: oral Liquids: thin liquids Daily Fluid Restriction: no Last Modified Barium Swallow with Video (Video Swallowing Test): not done Treatments at the Time of Hospital Discharge: Respiratory Treatments: none Oxygen Therapy: is not on home oxygen therapy. Ventilator: No ventilator support Rehab Therapies: physical therapy and occupational therapy Weight Bearing Status/Restrictions: no restriction Other Medical Equipment (for information only, NOT a DME order): bedside commode Other Treatments: none Patient's personal belongings (please select all that are sent with patient): none RN SIGNATURE: MANAGEMENT/SOCIAL WORK SECTION Inpatient Status Date: Readmission Risk Assessment Score: @[email or web address]@ Discharging to Facility/ Agency Name: [facility] Address:[address] [place] [address] Dialysis Facility (if applicable) Name: Address: Dialysis Schedule: Phone: Fax: Sticker Hand/Utilities Ground Worker signature: ICIAN SECTION Prognosis: fair Condition at Discharge: stable Rehab Potential (if transferring to Rehab): fair Recommended Labs or Other Treatments After Discharge: BMP and CBC every 3 days Physician Certification: I certify the above information and transfer of Carline Villarreal is necessary for the continuing treatment of the diagnosis listed and that she requires intermediate care for greater than 30 days. Update Admission H&P: No change in H&P PHYSICIAN SIGNATURE: The following attachments cannot be sent through Care Everywhere.Generalized Weakness Discharge Instructions (Syrian)Controlling Your Blood Pressure Through Lifestyle (Syrian)Quitting Smoking (Syrian)documented in this encounter [facility] 12-16-2023 History and physical note Attending History and Physical Admit Date: 12/16/2023 PCP: Evi Guevara CHIEF COMPLAINT: Headache, Left UE and LE paresthesia Reason for Admission: Left UE and LE paresthesia, Intractable HDEZ, Rule out TIA/CVA History Obtained From: patient HISTORY OF PRESENT ILLNESS: Carline is a 77 y.o. female with past medical history below who presents with chief complaint listed above. Patient states non-radiating sudden, intermittent pounding headache to the forehead started about 3 days ago. She has had similar symptoms in the past that were more intense compared to today. She is currently resident nursing facility. They have been treating the headache which was thought to be a migraine headache. Does get relief with treatment and a cool wash cloth on her forehead but it seems to come back. Lights and candy exacerbate her headache symptoms. Headaches at their worst are an 8, but currently a 0. Then yesterday afternoon, she also developed some left-sided arm and leg tingling. Patient became concerned because these were symptoms of she had with her previous stroke about 8 years ago. Notes symptoms are primarily tingling but also feels like the left side slightly weaker. She does note some mild residual weakness from the previous stroke. No recent falls or any injuries. No associated chest pain, shortness of breath, vision changes including blurry, double, or floaters, difficult producing speech, abdominal pain, vomiting, diarrhea, dysuria, or vertigo. Patient is taking aspirin and enoxaparin as blood thinners. Past medical history of hypertension and currently taking labetalol also on atorvastatin. Family history is positive for 2 sisters with recurrent migraines. In the ED, labs showed BUN 27, Cr 1.21, eGFR 46.3. CT head neck angio with and without IV contrast revealed no acute intracranial abnormalities. EKG completed and showed sinus bradycardia with abnormal R-wave progression with a borderline repolarization abnormality. Admitted for further evaluation. Past Medical History: No past medical history on file. Past Surgical History: No past surgical history on file. Social History: Social History Socioeconomic History Marital status: Spouse name: Not on file Number of children: Not on file Years of education: Not on file Highest education level: Not on file Occupational History Not on file Tobacco Use Smoking status: Not on file Smokeless tobacco: Not on file Substance and Sexual Activity Alcohol use: Not on file Drug use: Not on file Sexual activity: Not on file Other Topics Concern Not on file Social History Narrative Not on file Social Determinants of Health Financial Resource Strain: Not on file Food Insecurity: Not on file Transportation Needs: Not on file Physical Activity: Not on file Stress: Not on file Social Connections: Not on file Intimate Partner Violence: Not on file Housing Stability: Not on file Family History: No family history on file. Medications Prior to Admission: No current facility-administered medications on file prior to encounter. No current outpatient medications on file prior to encounter. Allergies: Not on File REVIEW OF SYSTEMS: Constitutional: Negative for fever, chills, activity change and unexpected weight change. HEENT: Negative for congestion, postnasal drip and sneezing. Eyes: Negative for itching and visual disturbance. Respiratory: Negative for apnea, cough, choking, chest tightness, shortness of breath, wheezing and stridor. Cardiovascular: Negative for chest pain. Gastrointestinal: Negative for nausea, vomiting, abdominal pain, diarrhea and blood in stool. Genitourinary: Negative for dysuria, frequency and flank pain. Musculoskeletal: Negative for myalgias and joint swelling. Skin: Negative for rash. Neurological: Negative for dizziness, tremors, seizures, syncope, facial asymmetry, speech difficulty, weakness, numbness and headaches. Hematological: Negative for adenopathy. Psychiatric/Behavioral: Negative for suicidal ideas, behavioral problems, self-injury and dysphoric mood. Vitals: BP (!) 113/45 Pulse 74 Temp 36.6 C (97.8 F) Wt 180 lb (81.6 kg) SpO2 94% BMI Classification: Obese (BMI 30.0-39.9) Pulse Ox: SpO2 Av % Min: 94 % Max: 94 % Supplemental O2: PHYSICAL EXAM: Physical Exam Constitutional: Appearance: She is obese. She is not ill-appearing. Cardiovascular: Rate and Rhythm: Normal rate. Heart sounds: No murmur heard. Pulmonary: Effort: No respiratory distress. Breath sounds: No wheezing. Abdominal: General: There is no distension. Musculoskeletal: General: No swelling. Neurological: Mental Status: She is disoriented. Motor: Weakness (Chronic LUE and LLE weakness?) present. Comments: AO x 2 at baseline per son at bedside DATA: CBC: Recent Labs 12/16/23 1323 WBC 7.4 RBC 4.09 HGB 13.3 HCT 39.1 MCV 95.6 RDW 13.3 PLT 259 BMP: Recent Labs 12/16/23 1323 NA 139 K 3.8 CL 104 CO2 28 BUN 27* CREATININE 1.21* GLUCOSE 87 CALCIUM 9.0 ANIONGAP 8 LIVER PROFILE: Recent Labs 12/16/23 1323 AST 25 ALT 15 BILITOT 0.7 ALKPHOS 118 PROT 6.9 PT/INR: Recent Labs 12/16/23 1323 PROTIME 10.9 INR 1.0 CARDIAC ENZYMES: Recent Labs 12/16/23 1323 TROPONINI <0.012 Procalcitonin: No results found for: PROCAL Urine Culture: No results found for this or any previous visit. COVID-19 PCR: No results for input(s): COVID19 in the last 72 hours. I reviewed: [x] laboratory results [x] radiographic results At the time of today's encounter. Pt was advised of the results. Data: (CAT1) Reviewed 3 or more notes from different specialty or health system (each=1). (CAT1) Reviewed 3 or more labs/studies ordered by another provider not previously counted (each=1, panels count as 1). (CAT1) Reviewed 3 or more labs/studies previously ordered by me not previously counted (each=1, panels count as 1). (CAT1) Ordered 3 or more new labs and/or studies (each=1, panels count as 1). (CAT2) CT of head/neck reviewed & showed NAP as interpreted by me. (CAT3) Discussed with ED provider, Dr. Valencia, regarding patient's eval & mgmt thus far, and agree with the plan for hospitalization. (LOW: 2x CAT1 or independent historian MOD: 3x CAT1 or 1x CAT3 EXTENSIVE: 3x CAT1 and 1x CAT3) Assessment Discussed management with the ED provider and agree with hospitalization. Acute, acute on chronic, unstable/uncontrolled chronic problems/diagnoses: Left UE and LE paresthesia Intractable HDEZ HTN urgency Stable chronic problems affecting care, new non-acute diagnoses: Hx of CVA with residual left sided weakness HTN HLD Class 3 obesity Plan As a result of the above findings & factors, the following mgmt was pursued: - Stroke order set initiated. CTH and CTA H/N reviewed. Obtain MRI brain and TTE. Neurochecks every 4 hours and consult Neurology - am labs, replace lytes prn - PT/OT/CM/SW - delirium precautions: increase activity - DVT prophylaxis: enoxaparin and encourage ambulation Complexity: Acute illness or injury posing a threat to life or body function (HIGH). Risk: Admission to hospital-level care was considered or occurred (HIGH). Advance Directive: No Order Anticipated Discharge - Date - 12/16 - Location - Skilled Facility - Pending the following - MRI brain, TTE, neurology recs Total time spent (which include face to face and non face to face encounters) : 81 minutes. Toxic drug monitoring/narrow therapeutic index drug monitoring : # Drug name : Kaseynox # Route administered : subq # Method of monitoring : CBC Extended Emergency Contact Information Primary Emergency Contact: Rosas Kwon Mobile Relation: Son Secondary Emergency Contact: Nicolette Ren Mobile Relation: Sister Bartolo Meehan MD Division of Hospitalist Medicine [facility] 12-16-2023 Note Attending History an d Physical Admit Date: 12/16/2023 PCP: Evi Guevara CHIEF COMPLAINT: Headache, Left UE and LE paresthesia Reason for Admission: Left UE and LE paresthesia, Intractable HDEZ, Rule out TIA/CVA History Obtained From: patient HISTORY OF PRESENT ILLNESS: Carline is a 77 y.o. female with past medical history below who presents with chief complaint listed above. Patient states non-radiating sudden, intermittent pounding headache to the forehead started about 3 days ago. She has had similar symptoms in the past that were more intense compared to today. She is currently resident nursing facility. They have been treating the headache which was thought to be a migraine headache. Does get relief with treatment and a cool wash cloth on her forehead but it seems to come back. Lights and candy exacerbate her headache symptoms. Headaches at their worst are an 8, but currently a 0. Then yesterday afternoon, she also developed some left-sided arm and leg tingling. Patient became concerned because these were symptoms of she had with her previous stroke about 8 years ago. Notes symptoms are primarily tingling but also feels like the left side slightly weaker. She does note some mild residual weakness from the previous stroke. No recent falls or any injuries. No associated chest pain, shortness of breath, vision changes including blurry, double, or floaters, difficult producing speech, abdominal pain, vomiting, diarrhea, dysuria, or vertigo. Patient is taking aspirin and enoxaparin as blood thinners. Past medical history of hypertension and currently taking labetalol also on atorvastatin. Family history is positive for 2 sisters with recurrent migraines. In the ED, labs showed BUN 27, Cr 1.21, eGFR 46.3. CT head neck angio with and without IV contrast revealed no acute intracranial abnormalities. EKG completed and showed sinus bradycardia with abnormal R-wave progression with a borderline repolarization abnormality. Admitted for further evaluation. Past Medical History: No past medical history on file. Past Surgical History: No past surgical history on file. Social History: Social History Socioeconomic History Marital status: Spouse name: Not on file Number of children: Not on file Years of education: Not on file Highest education level: Not on file Occupational History Not on file Tobacco Use Smoking status: Not on file Smokeless tobacco: Not on file Substance and Sexual Activity Alcohol use: Not on file Drug use: Not on file Sexual activity: Not on file Other Topics Concern Not on file Social History Narrative Not on file Social Determinants of Health Financial Resource Strain: Not on file Food Insecurity: Not on file Transportation Needs: Not on file Physical Activity: Not on file Stress: Not on file Social Connections: Not on file Intimate Partner Violence: Not on file Housing Stability: Not on file Family History: No family history on file. Medications Prior to Admission: No current facility-administered medications on file prior to encounter. No current outpatient medications on file prior to encounter. Allergies: Not on File REVIEW OF SYSTEMS: Constitutional: Negative for fever, chills, activity change and unexpected weight change. HEENT: Negative for congestion, postnasal drip and sneezing. Eyes: Negative for itching and visual disturbance. Respiratory: Negative for apnea, cough, choking, chest tightness, shortness of breath, wheezing and stridor. Cardiovascular: Negative for chest pain. Gastrointestinal: Negative for nausea, vomiting, abdominal pain, diarrhea and blood in stool. Genitourinary: Negative for dysuria, frequency and flank pain. Musculoskeletal: Negative for myalgias and joint swelling. Skin: Negative for rash. Neurological: Negative for dizziness, tremors, seizures, syncope, facial asymmetry, speech difficulty, weakness, numbness and headaches. Hematological: Negative for adenopathy. Psychiatric/Behavioral: Negative for suicidal ideas, behavioral problems, self-injury and dysphoric mood. Vitals: BP (!) 113/45 Pulse 74 Temp 36.6 ?C (97.8 ?F) Wt 180 lb (81.6 kg) SpO2 94% BMI Classification: Obese (BMI 30.0-39.9) Pulse Ox: SpO2 Av % Min: 94 % Max: 94 % Supplemental O2: PHYSICAL EXAM: Physical Exam Constitutional: Appearance: She is obese. She is not ill-appearing. Cardiovascular: Rate and Rhythm: Normal rate. Heart sounds: No murmur heard. Pulmonary: Effort: No respiratory distress. Breath sounds: No wheezing. Abdominal: General: There is no distension. Musculoskeletal: General: No swelling. Neurological: Mental Status: She is disoriented. Motor: Weakness (Chronic LUE and LLE weakness?) present. Comments: AO x 2 at baseline per son at bedside DATA: CBC: Recent Labs 12/16/23 1323 WBC 7.4 RBC 4.09 HGB 13.3 HCT 39.1 MCV 95.6 RDW 13.3 (more content not included)... [facility] 12-16-2023 History and physical note Attending History and Physical Admit Date: 12/16/2023 PCP: Evi Guevara CHIEF COMPLAINT: Headache, Left UE and LE paresthesia Reason for Admission: Left UE and LE paresthesia, Intractable HDEZ, Rule out TIA/CVA History Obtained From: patient HISTORY OF PRESENT ILLNESS: Carline is a 77 y.o. female with past medical history below who presents with chief complaint listed above. Patient states non-radiating sudden, intermittent pounding headache to the forehead started about 3 days ago. She has had similar symptoms in the past that were more intense compared to today. She is currently resident nursing facility. They have been treating the headache which was thought to be a migraine headache. Does get relief with treatment and a cool wash cloth on her forehead but it seems to come back. Lights and candy exacerbate her headache symptoms. Headaches at their worst are an 8, but currently a 0. Then yesterday afternoon, she also developed some left-sided arm and leg tingling. Patient became concerned because these were symptoms of she had with her previous stroke about 8 years ago. Notes symptoms are primarily tingling but also feels like the left side slightly weaker. She does note some mild residual weakness from the previous stroke. No recent falls or any injuries. No associated chest pain, shortness of breath, vision changes including blurry, double, or floaters, difficult producing speech, abdominal pain, vomiting, diarrhea, dysuria, or vertigo. Patient is taking aspirin and enoxaparin as blood thinners. Past medical history of hypertension and currently taking labetalol also on atorvastatin. Family history is positive for 2 sisters with recurrent migraines. In the ED, labs showed BUN 27, Cr 1.21, eGFR 46.3. CT head neck angio with and without IV contrast revealed no acute intracranial abnormalities. EKG completed and showed sinus bradycardia with abnormal R-wave progression with a borderline repolarization abnormality. Admitted for further evaluation. Past Medical History: No past medical history on file. Past Surgical History: No past surgical history on file. Social History: Social History Socioeconomic History Marital status: Spouse name: Not on file Number of children: Not on file Years of education: Not on file Highest education level: Not on file Occupational History Not on file Tobacco Use Smoking status: Not on file Smokeless tobacco: Not on file Substance and Sexual Activity Alcohol use: Not on file Drug use: Not on file Sexual activity: Not on file Other Topics Concern Not on file Social History Narrative Not on file Social Determinants of Health Financial Resource Strain: Not on file Food Insecurity: Not on file Transportation Needs: Not on file Physical Activity: Not on file Stress: Not on file Social Connections: Not on file Intimate Partner Violence: Not on file Housing Stability: Not on file Family History: No family history on file. Medications Prior to Admission: No current facility-administered medications on file prior to encounter. No current outpatient medications on file prior to encounter. Allergies: Not on File REVIEW OF SYSTEMS: Constitutional: Negative for fever, chills, activity change and unexpected weight change. HEENT: Negative for congestion, postnasal drip and sneezing. Eyes: Negative for itching and visual disturbance. Respiratory: Negative for apnea, cough, choking, chest tightness, shortness of breath, wheezing and stridor. Cardiovascular: Negative for chest pain. Gastrointestinal: Negative for nausea, vomiting, abdominal pain, diarrhea and blood in stool. Genitourinary: Negative for dysuria, frequency and flank pain. Musculoskeletal: Negative for myalgias and joint swelling. Skin: Negative for rash. Neurological: Negative for dizziness, tremors, seizures, syncope, facial asymmetry, speech difficulty, weakness, numbness and headaches. Hematological: Negative for adenopathy. Psychiatric/Behavioral: Negative for suicidal ideas, behavioral problems, self-injury and dysphoric mood. Vitals: BP (!) 113/45 Pulse 74 Temp 36.6 C (97.8 F) Wt 180 lb (81.6 kg) SpO2 94% BMI Classification: Obese (BMI 30.0-39.9) Pulse Ox: SpO2 Av % Min: 94 % Max: 94 % Supplemental O2: PHYSICAL EXAM: Physical Exam Constitutional: Appearance: She is obese. She is not ill-appearing. Cardiovascular: Rate and Rhythm: Normal rate. Heart sounds: No murmur heard. Pulmonary: Effort: No respiratory distress. Breath sounds: No wheezing. Abdominal: General: There is no distension. Musculoskeletal: General: No swelling. Neurological: Mental Status: She is disoriented. Motor: Weakness (Chronic LUE and LLE weakness?) present. Comments: AO x 2 at baseline per son at bedside DATA: CBC: Recent Labs 12/16/23 1323 WBC 7.4 RBC 4.09 HGB 13.3 HCT 39.1 MCV 95.6 RDW 13.3 PLT 259 BMP: Recent Labs 12/16/23 1323 NA 139 K 3.8 CL 104 CO2 28 BUN 27* CREATININE 1.21* GLUCOSE 87 CALCIUM 9.0 ANIONGAP 8 LIVER PROFILE: Recent Labs 12/16/23 1323 AST 25 ALT 15 BILITOT 0.7 ALKPHOS 118 PROT 6.9 PT/INR: Recent Labs 12/16/23 1323 PROTIME 10.9 INR 1.0 CARDIAC ENZYMES: Recent Labs 12/16/23 1323 TROPONINI <0.012 Procalcitonin: No results found for: PROCAL Urine Culture: No results found for this or any previous visit. COVID-19 PCR: No results for input(s): COVID19 in the last 72 hours. I reviewed: [x] laboratory results [x] radiographic results At the time of today's encounter. Pt was advised of the results. Data: (CAT1) Reviewed 3 or more notes from different specialty or health system (each=1). (CAT1) Reviewed 3 or more labs/studies ordered by another provider not previously counted (each=1, panels count as 1). (CAT1) Reviewed 3 or more labs/studies previously ordered by me not previously counted (each=1, panels count as 1). (CAT1) Ordered 3 or more new labs and/or studies (each=1, panels count as 1). (CAT2) CT of head/neck reviewed & showed NAP as interpreted by me. (CAT3) Discussed with ED provider, Dr. Valencia, regarding patient's eval & mgmt thus far, and agree with the plan for hospitalization. (LOW: 2x CAT1 or independent historian MOD: 3x CAT1 or 1x CAT3 EXTENSIVE: 3x CAT1 and 1x CAT3) Assessment Discussed management with the ED provider and agree with hospitalization. Acute, acute on chronic, unstable/uncontrolled chronic problems/diagnoses: Left UE and LE paresthesia Intractable HDEZ HTN urgency Stable chronic problems affecting care, new non-acute diagnoses: Hx of CVA with residual left sided weakness HTN HLD Class 3 obesity Plan As a result of the above findings & factors, the following mgmt was pursued: - Stroke order set initiated. CTH and CTA H/N reviewed. Obtain MRI brain and TTE. Neurochecks every 4 hours and consult Neurology - am labs, replace lytes prn - PT/OT/CM/SW - delirium precautions: increase activity - DVT prophylaxis: enoxaparin and encourage ambulation Complexity: Acute illness or injury posing a threat to life or body function (HIGH). Risk: Admission to hospital-level care was considered or occurred (HIGH). Advance Directive: No Order Anticipated Discharge - Date - 12/16 - Location - Skilled Facility - Pending the following - MRI brain, TTE, neurology recs Total time spent (which include face to face and non face to face encounters) : 81 minutes. Toxic drug monitoring/narrow therapeutic index drug monitoring : # Drug name : Lovenox # Route administered : subq # Method of monitoring : CBC Extended Emergency Contact Information Primary Emergency Contact: Rosas Kwon Mobile Relation: Son Secondary Emergency Contact: Nicolette Ren Mobile Relation: Sister Bartolo Mehean MD Division of Hospitalist Medicine Acute Care [facility] documented in this encounter [facility] 12-16-2023 Note Formatting of this n ote is different from the original. ADVANCED CARE PLANNING Carline Villarreal : 1945 Primary Care Physician: Evi Guevara The patient and/or family/surrogate voluntarily agreed to participate in ACP services. Patient s cognitive capacity: Does not have capacity Code Status: [x] [FULL CODE - Continue all advanced life support: CPR,intubation,invasive procedures] [_] [DNR-CCA - DO NOT do CPR, intubation] [_] [DNR-ART OBJECTS SUPERVISOR - Comfort care only] [_] DNR form [was/was not] signed Summary of discussion: The patient health care POA/ surrogate is the following: Ethan Pillai. [Condition that instigated the ACP on this DOS, relevant PMH, functional status, goals of care, and whom this was discussed with including names and relationship to the patient, and any relevant advance care documentation discussion] I answered all the patient/family questions that I could within the range and scope of the current medical situation. We discussed the medical conditions, risks, benefits, outcomes, and goals of care at this time for the patient's medical issues at hand in the face of the patient's chronic issues and current presentation. Total time spent: 5 minutes were spent discussing the patient's resuscitation status, advance care planning, and end of life care, with patient and/or family/surrogate. Bartolo Meehan MD [facility] 12/16/2023, 4:16 PM T [facility] 12-16-2023 Note Formatting of this n ote is different from the original. ADVANCED CARE PLANNING Carline Villarreal : 1945 Primary Care Physician: Eiv Guevara The patient and/or family/surrogate voluntarily agreed to participate in ACP services. Patient s cognitive capacity: Does not have capacity Code Status: [x] [FULL CODE - Continue all advanced life support: CPR,intubation,invasive procedures] [_] [DNR-CCA - DO NOT do CPR, intubation] [_] [DNR-ART OBJECTS SUPERVISOR - Comfort care only] [_] DNR form [was/was not] signed Summary of discussion: The patient health care POA/ surrogate is the following: Ethan Pillai. [Condition that instigated the ACP on this DOS, relevant PMH, functional status, goals of care, and whom this was discussed with including names and relationship to the patient, and any relevant advance care documentation discussion] I answered all the patient/family questions that I could within the range and scope of the current medical situation. We discussed the medical conditions, risks, benefits, outcomes, and goals of care at this time for the patient's medical issues at hand in the face of the patient's chronic issues and current presentation. Total time spent: 5 minutes were spent discussing the patient's resuscitation status, advance care planning, and end of life care, with patient and/or family/surrogate. Bartolo Meehan MD Acute [facility] 12/16/2023, 4:16 PM [facility] 12-16-2023 Emergency department Note Pt presents from [facility] with Left side numbness/tingliness/ Pt with hx of left side stroke. States symptoms started yesterday then went away and came back today. Pt with hx of migrains and dementia. Charlene Griggs RN 12/16/23 1313 [facility] 12-16-2023 Emergency department Note Pt presents from [facility] [place] with Left side numbness/tingliness/ Pt with hx of left side stroke. States symptoms started yesterday then went away and came back today. Pt with hx of migrains and dementia. Charlene Griggs RN 12/16/23 1313 EMERGENCY DEPARTMENT ENCOUNTER Pt Name: Carline Villarreal Birthdate 1945 Date of evaluation: 12/16/2023 ED Provider: Cameron Valencia DO CHIEF COMPLAINT No chief complaint on file. HISTORY OF PRESENT ILLNESS (Location/Symptom, Timing/Onset, Context/Setting, Quality, Duration, Modifying Factors, Severity) Note limiting factors. I wore appropriate PPE for the entirety of this encounter. HPI Carline Villarreal is a 77 y.o. who presents to the emergency department with chief complaint of headache and weakness. Patient states headache started about 3 days ago. She is currently resident nursing facility. They have been treating the headache which was thought to be a migraine headache. Does get relief with treatment but it seems to come back. Then yesterday afternoon, she also developed some left-sided arm and leg tingling. Patient became concerned because these were symptoms of she had with her previous stroke about 8 years ago. Notes symptoms are primarily tingling but also feels like the left side slightly weaker. She does note some mild residual weakness from the previous stroke. No recent falls or any injuries. No associated chest pain, shortness of breath, vision loss, abdominal pain, vomiting, diarrhea, dysuria. Nursing Notes were reviewed. Limitations to history: None Outside historians: EMS REVIEW OF SYSTEMS Review of Systems Pertinent positives and negatives as per HPI PAST MEDICAL HISTORY No past medical history on file. SURGICAL HISTORY No past surgical history on file. CURRENT MEDICATIONS Previous Medications No medications on file ALLERGIES Patient has no allergy information on record. FAMILY HISTORY No family history on file. SOCIAL HISTORY Social History Socioeconomic History Marital status: PHYSICAL EXAM ED Triage Vitals [12/16/23 1311] Temp Heart Rate Resp BP 36.6 C (97.8 F) 74 -- (!) 113/45 SpO2 Temp src Heart Rate Source Patient Position 94 % -- Monitor -- BP Location FiO2 (%) -- -- Physical Exam Vitals and nursing note reviewed. Constitutional: General: She is not in acute distress. Appearance: She is well-developed. HENT: Head: Normocephalic and atraumatic. Eyes: Conjunctiva/sclera: Conjunctivae normal. Cardiovascular: Rate and Rhythm: Normal rate and regular rhythm. Heart sounds: No murmur heard. Pulmonary: Effort: Pulmonary effort is normal. No respiratory distress. Breath sounds: Normal breath sounds. Abdominal: Palpations: Abdomen is soft. Tenderness: There is no abdominal tenderness. Musculoskeletal: General: No swelling. Cervical back: Neck supple. Skin: General: Skin is warm and dry. Capillary Refill: Capillary refill takes less than 2 seconds. Neurological: Mental Status: She is alert and oriented to person, place, and time. Cranial Nerves: No cranial nerve deficit. Coordination: Coordination normal. Psychiatric: Mood and Affect: Mood normal. NIH Stroke Scale 1A. Level of Consciousness: Alert, Keenly Responsive 1B. Ask Month and Age: Both Questions Right 1C. Blink Eyes & Squeeze Hands: Performs Both Tasks 2. Best Gaze: Normal 3. Visual: No Visual Loss 4. Facial Palsy: Normal Symmetrical Movements 5A. Motor - Left Arm: Drift 5B. Motor - Right Arm: No Drift 6A. Motor - Left Leg: Drift 6B. Motor - Right Leg: No Drift 7. Limb Ataxia: Absent 8. Sensory Loss: Normal 9. Best Language: No Aphasia 10. Dysarthria: Normal 11. Extinction and Inattention: No Abnormality NIH Stroke Scale: 2 DIAGNOSTIC RESULTS RADIOLOGY (Per Emergency Physician): Interpretation per the Radiologist below, if available at the time of this note: CTA head neck angio w and wo IV contrast Final Result CT Head: * No acute intracranial abnormality. 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 CTA Neck: * Less than 50% right ICA stenosis. 0% left ICA stenosis. * No significant vertebral artery stenosis. CTA head: * Multifocal intracranial atherosclerotic disease. * Moderate stenoses of the intracranial ICAs bilaterally. 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 Age is indeterminate, but possibly chronic given encephalomalacia in the right parietal lobe. 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 Report Dictated on Electronically Signed By: Grant Denson MD Electronically Signed Date/Time: 12/16/2023 3:[address] head wo IV contrast Final Result CT Head: * No acute intracranial abnormality. 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 CTA Neck: * Less than 50% right ICA stenosis. 0% left ICA stenosis. * No significant vertebral artery stenosis. CTA head: * Multifocal intracranial atherosclerotic disease. * Moderate stenoses of the intracranial ICAs bilaterally. 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 Age is indeterminate, but possibly chronic given encephalomalacia in the right parietal lobe. 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 Report Dictated on Electronically Signed By: Grant Denson MD Electronically Signed Date/Time: 12/16/2023 3:18 PM EDT MR brain wo contrast (Results Pending) LABS: Labs Reviewed COMPREHENSIVE METABOLIC PANEL - Abnormal Result Value SODIUM 139 POTASSIUM 3.8 CHLORIDE 104 CARBON DIOXIDE 28 ANION GAP 8 UREA NITROGEN 27 (*) CREATININE 1.21 (*) GLUCOSE 87 CALCIUM 9.0 AST (SGOT) 25 ALT 15 ALKALINE PHOSPHATASE 118 ALBUMIN 3.9 BILIRUBIN, TOTAL 0.7 TOTAL PROTEIN 6.9 eGFR 46.3 (*) CBC WITH AUTO DIFFERENTIAL - Normal Auto WBC 7.4 RBC 4.09 Hemoglobin 13.3 Hematocrit 39.1 MCV 95.6 MCH 32.5 MCHC 34.0 RDW 13.3 Platelets 259 MPV 10.5 nRBC 0.0 Neutrophils Relative 68.5 Lymphocytes Relative 17.8 Monocytes Relative 7.1 Eosinophils Relative 5.7 Basophils Relative 0.8 Immature Grans % 0.1 Neutrophils Absolute 5.1 Lymphocytes Absolute 1.3 Monocytes Absolute 0.5 Eosinophils Absolute 0.4 Basophils Absolute 0.1 Immature Grans Absolute 0.0 TROPONIN, WITH SERIAL REFLEX - Normal TROPONIN I <0.012 Narrative: Patients with high levels of Biotin oral intake (ie >5 mg/day) may have falsely decreased Troponin levels. PROTIME & APTT - Normal PROTHROMBIN TIME 10.9 INR 1.0 APTT 25.1 COMPREHENSIVE METABOLIC PANEL WITH MG REFLEX Narrative: The following orders were created for panel order Comprehensive Metabolic Panel with Mg Reflex. Procedure Abnormality Status --------- ------ Comprehensive metabolic p...[[id number]] Abnormal Final result Please view results for these tests on the individual orders. TROPONIN I TROPONIN, WITH SERIAL REFLEX POCT GLUCOSE METER All other labs were within normal range or not returned as of this dictation. EMERGENCY DEPARTMENT COURSE and DIFFERENTIAL DIAGNOSIS/MDM: Vitals: Vitals: 12/16/23 1311 12/16/23 1312 BP: (!) 113/45 Pulse: 74 Temp: 36.6 C (97.8 F) SpO2: 94% Weight: 81.6 kg (180 lb) Medications sodium chloride 0.9% (NS) flush 5-40 mL (has no administration in time range) sodium chloride 0.9% (NS) flush 5-40 mL (has no administration in time range) sodium chloride 0.9 % infusion (has no administration in time range) sodium chloride 0.9 % infusion (has no administration in time range) acetaminophen (Tylenol) tablet 650 mg (has no administration in time range) Or acetaminophen (Tylenol) suppository 650 mg (has no administration in time range) ondansetron ODT (Zofran-ODT) disintegrating tablet 4 mg (has no administration in time range) Or ondansetron (Zofran) injection 4 mg (has no administration in time range) polyethylene glycol (PEG) 3350 (Miralax) packet 17 g (has no administration in time range) bisacodyl (Dulcolax) suppository 10 mg (has no administration in time range) aspirin EC tablet 81 mg (has no administration in time range) Or aspirin suppository 300 mg (has no administration in time range) atorvastatin (Lipitor) tablet 40 mg (has no administration in time range) labetalol (Normodyne,Trandate) injection 10 mg (has no administration in time range) perflutren protein A microsphere (Optison) 3 mL in sodium chloride (PF) 0.9 % 10 mL IV syringe (has no administration in time range) enoxaparin (Lovenox) syringe 40 mg (has no administration in time range) sodium chloride 0.9 % bolus 250 mL (250 mL IntraVENous New Bag 12/16/23 1324) iopamidol (Isovue-370) 76 % injection 75 mL (75 mL IntraVENous Given 12/16/23 1439) The patient presented with symptoms that started with headache 3 days ago and then left arm paresthesias and weakness started yesterday. She does have prior history of stroke with residual left-sided weakness. Difficult to tell if she is truly weaker today than her baseline. Patient states it just feels a little different. Because of her vascular disease risk factors and prior history of stroke, further evaluated CTA of the head and neck especially with 3 days of headache and medical workup also obtained. There is no signs of any major metabolic abnormalities. No signs of any acute intracranial process. No major vascular disease as well. This does raise concern for possible TIA as the cause of her symptoms which appear to have been waxing and waning. Will be evaluated with MRI. FINAL IMPRESSION 1. Left-sided weakness 2. TIA (transient ischemic attack) DISPOSITION Admit 12/16/2023 04:15:51 PM PATIENT REFERRED TO: No follow-up provider specified. DISCHARGE MEDICATIONS: New Prescriptions No medications on file (Comment: Please note this report has been produced using speech recognition software and may contain errors related to that system including errors in grammar, punctuation, and spelling, as well as words and phrases that may be inappropriate. If there are any questions or concerns please feel free to contact the dictating provider for clarification.) Cameron Valencia DO (electronically signed) Emergency Medicine Provider Cameron Valencia DO 12/16/23 1616 documented in this encounter [facility] 12-16-2023 Physician Emergency department Note EMERGENCY DEPARTMENT ENCOUNTER Pt Name: Carline Villarreal Birthdate 1945 Date of evaluation: 12/16/2023 ED Provider: Cameron Valencia DO CHIEF COMPLAINT No chief complaint on file. HISTORY OF PRESENT ILLNESS (Location/Symptom, Timing/Onset, Context/Setting, Quality, Duration, Modifying Factors, Severity) Note limiting factors. I wore appropriate PPE for the entirety of this encounter. HPI Carline Villarreal is a 77 y.o. who presents to the emergency department with chief complaint of headache and weakness. Patient states headache started about 3 days ago. She is currently resident nursing facility. They have been treating the headache which was thought to be a migraine headache. Does get relief with treatment but it seems to come back. Then yesterday afternoon, she also developed some left-sided arm and leg tingling. Patient became concerned because these were symptoms of she had with her previous stroke about 8 years ago. Notes symptoms are primarily tingling but also feels like the left side slightly weaker. She does note some mild residual weakness from the previous stroke. No recent falls or any injuries. No associated chest pain, shortness of breath, vision loss, abdominal pain, vomiting, diarrhea, dysuria. Nursing Notes were reviewed. Limitations to history: None Outside historians: EMS REVIEW OF SYSTEMS Review of Systems Pertinent positives and negatives as per HPI PAST MEDICAL HISTORY No past medical history on file. SURGICAL HISTORY No past surgical history on file. CURRENT MEDICATIONS Previous Medications No medications on file ALLERGIES Patient has no allergy information on record. FAMILY HISTORY No family history on file. SOCIAL HISTORY Social History Socioeconomic History Marital status: PHYSICAL EXAM ED Triage Vitals [12/16/23 1311] Temp Heart Rate Resp BP 36.6 C (97.8 F) 74 -- (!) 113/45 SpO2 Temp src Heart Rate Source Patient Position 94 % -- Monitor -- BP Location FiO2 (%) -- -- Physical Exam Vitals and nursing note reviewed. Constitutional: General: She is not in acute distress. Appearance: She is well-developed. HENT: Head: Normocephalic and atraumatic. Eyes: Conjunctiva/sclera: Conjunctivae normal. Cardiovascular: Rate and Rhythm: Normal rate and regular rhythm. Heart sounds: No murmur heard. Pulmonary: Effort: Pulmonary effort is normal. No respiratory distress. Breath sounds: Normal breath sounds. Abdominal: Palpations: Abdomen is soft. Tenderness: There is no abdominal tenderness. Musculoskeletal: General: No swelling. Cervical back: Neck supple. Skin: General: Skin is warm and dry. Capillary Refill: Capillary refill takes less than 2 seconds. Neurological: Mental Status: She is alert and oriented to person, place, and time. Cranial Nerves: No cranial nerve deficit. Coordination: Coordination normal. Psychiatric: Mood and Affect: Mood normal. NIH Stroke Scale 1A. Level of Consciousness: Alert, Keenly Responsive 1B. Ask Month and Age: Both Questions Right 1C. Blink Eyes & Squeeze Hands: Performs Both Tasks 2. Best Gaze: Normal 3. Visual: No Visual Loss 4. Facial Palsy: Normal Symmetrical Movements 5A. Motor - Left Arm: Drift 5B. Motor - Right Arm: No Drift 6A. Motor - Left Leg: Drift 6B. Motor - Right Leg: No Drift 7. Limb Ataxia: Absent 8. Sensory Loss: Normal 9. Best Language: No Aphasia 10. Dysarthria: Normal 11. Extinction and Inattention: No Abnormality NIH Stroke Scale: 2 DIAGNOSTIC RESULTS RADIOLOGY (Per Emergency Physician): Interpretation per the Radiologist below, if available at the time of this note: CTA head neck angio w and wo IV contrast Final Result CT Head: * No acute intracranial abnormality. 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 CTA Neck: * Less than 50% right ICA stenosis. 0% left ICA stenosis. * No significant vertebral artery stenosis. CTA head: * Multifocal intracranial atherosclerotic disease. * Moderate stenoses of the intracranial ICAs bilaterally. 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 Age is indeterminate, but possibly chronic given encephalomalacia in the right parietal lobe. 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 Report Dictated on Electronically Signed By: Grant Denson MD Electronically Signed Date/Time: 12/16/2023 3:[address] head wo IV contrast Final Result CT Head: * No acute intracranial abnormality. 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 CTA Neck: * Less than 50% right ICA stenosis. 0% left ICA stenosis. * No significant vertebral artery stenosis. CTA head: * Multifocal intracranial atherosclerotic disease. * Moderate stenoses of the intracranial ICAs bilaterally. 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 Age is indeterminate, but possibly chronic given encephalomalacia in the right parietal lobe. 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 Report Dictated on Electronically Signed By: Grant Denson MD Electronically Signed Date/Time: 12/16/2023 3:18 PM EDT MR brain wo contrast (Results Pending) LABS: Labs Reviewed COMPREHENSIVE METABOLIC PANEL - Abnormal Result Value SODIUM 139 POTASSIUM 3.8 CHLORIDE 104 CARBON DIOXIDE 28 ANION GAP 8 UREA NITROGEN 27 (*) CREATININE 1.21 (*) GLUCOSE 87 CALCIUM 9.0 AST (SGOT) 25 ALT 15 ALKALINE PHOSPHATASE 118 ALBUMIN 3.9 BILIRUBIN, TOTAL 0.7 TOTAL PROTEIN 6.9 eGFR 46.3 (*) CBC WITH AUTO DIFFERENTIAL - Normal Auto WBC 7.4 RBC 4.09 Hemoglobin 13.3 Hematocrit 39.1 MCV 95.6 MCH 32.5 MCHC 34.0 RDW 13.3 Platelets 259 MPV 10.5 nRBC 0.0 Neutrophils Relative 68.5 Lymphocytes Relative 17.8 Monocytes Relative 7.1 Eosinophils Relative 5.7 Basophils Relative 0.8 Immature Grans % 0.1 Neutrophils Absolute 5.1 Lymphocytes Absolute 1.3 Monocytes Absolute 0.5 Eosinophils Absolute 0.4 Basophils Absolute 0.1 Immature Grans Absolute 0.0 TROPONIN, WITH SERIAL REFLEX - Normal TROPONIN I <0.012 Narrative: Patients with high levels of Biotin oral intake (ie >5 mg/day) may have falsely decreased Troponin levels. PROTIME & APTT - Normal PROTHROMBIN TIME 10.9 INR 1.0 APTT 25.1 COMPREHENSIVE METABOLIC PANEL WITH MG REFLEX Narrative: The following orders were created for panel order Comprehensive Metabolic Panel with Mg Reflex. Procedure Abnormality Status --------- ------ Comprehensive metabolic p...[[id number]] Abnormal Final result Please view results for these tests on the individual orders. TROPONIN I TROPONIN, WITH SERIAL REFLEX POCT GLUCOSE METER All other labs were within normal range or not returned as of this dictation. EMERGENCY DEPARTMENT COURSE and DIFFERENTIAL DIAGNOSIS/MDM: Vitals: Vitals: 12/16/23 1311 12/16/23 1312 BP: (!) 113/45 Pulse: 74 Temp: 36.6 C (97.8 F) SpO2: 94% Weight: 81.6 kg (180 lb) Medications sodium chloride 0.9% (NS) flush 5-40 mL (has no administration in time range) sodium chloride 0.9% (NS) flush 5-40 mL (has no administration in time range) sodium chloride 0.9 % infusion (has no administration in time range) sodium chloride 0.9 % infusion (has no administration in time range) acetaminophen (Tylenol) tablet 650 mg (has no administration in time range) Or acetaminophen (Tylenol) suppository 650 mg (has no administration in time range) ondansetron ODT (Zofran-ODT) disintegrating tablet 4 mg (has no administration in time range) Or ondansetron (Zofran) injection 4 mg (has no administration in time range) polyethylene glycol (PEG) 3350 (Miralax) packet 17 g (has no administration in time range) bisacodyl (Dulcolax) suppository 10 mg (has no administration in time range) aspirin EC tablet 81 mg (has no administration in time range) Or aspirin suppository 300 mg (has no administration in time range) atorvastatin (Lipitor) tablet 40 mg (has no administration in time range) labetalol (Normodyne,Trandate) injection 10 mg (has no administration in time range) perflutren protein A microsphere (Optison) 3 mL in sodium chloride (PF) 0.9 % 10 mL IV syringe (has no administration in time range) enoxaparin (Lovenox) syringe 40 mg (has no administration in time range) sodium chloride 0.9 % bolus 250 mL (250 mL IntraVENous New Bag 12/16/23 1324) iopamidol (Isovue-370) 76 % injection 75 mL (75 mL IntraVENous Given 12/16/23 1437) The patient presented with symptoms that started with headache 3 days ago and then left arm paresthesias and weakness started yesterday. She does have prior history of stroke with residual left-sided weakness. Difficult to tell if she is truly weaker today than her baseline. Patient states it just feels a little different. Because of her vascular disease risk factors and prior history of stroke, further evaluated CTA of the head and neck especially with 3 days of headache and medical workup also obtained. There is no signs of any major metabolic abnormalities. No signs of any acute intracranial process. No major vascular disease as well. This does raise concern for possible TIA as the cause of her symptoms which appear to have been waxing and waning. Will be evaluated with MRI. FINAL IMPRESSION 1. Left-sided weakness 2. TIA (transient ischemic attack) DISPOSITION Admit 12/16/2023 04:15:51 PM PATIENT REFERRED TO: No follow-up provider specified. DISCHARGE MEDICATIONS: New Prescriptions No medications on file (Comment: Please note this report has been produced using speech recognition software and may contain errors related to that system including errors in grammar, punctuation, and spelling, as well as words and phrases that may be inappropriate. If there are any questions or concerns please feel free to contact the dictating provider for clarification.) Cameron Valencia DO (electronically signed) Emergency Medicine Provider Cameron Valencia DO 12/16/23 1616 [facility] [employer] Work Phone: Evaluation note No assessment inform ation available [facility] Work Phone: Evaluation note Diagnosis Left-sided weakness- Primary TIA (transient ischemic attack) Unspecified transient cerebral ischemia Left-sided weakness [facility] Intractable migraine without aura and without status migrainosus- Primary Migraine without aura, with intractable migraine, so stated, without mention of status migrainosus Worsening headaches Headache Weakness Other malaise and fatigue [facility] Diagnosis Acute exacerbation of chronic heart failure (HCC)- Primary Pneumonia of both lower lobes due to infectious organism Congestive heart failure, unspecified HF chronicity, unspecified heart failure type (HCC) Acute kidney injury (nontraumatic) (CMS/HCC) (HCC) Acute kidney failure, unspecified Acute electrocardiogram changes Pulmonary congestion Pulmonary congestion and hypostasis Edema of extremities Edema Hypercapnia Other dyspnea and respiratory abnormality Chronic pain syndrome Stage 3a chronic kidney disease (HCC) Unilateral paralysis as late effect of cerebrovascular accident (CVA) (HCC) Bipolar affective disorder, remission status unspecified (HCC) Controlled type 2 diabetes mellitus with diabetic nephropathy, unspecified whether 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 gauger 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 insulin use (HCC) Pneumonia of both lower lobes due to infectious organism Stage 3a chronic kidney disease (HCC) [facility] Diagnosis Chronic systolic heart failure (HCC)- Primary Chronic systolic heart failure Primary hypertension Unspecified essential hypertension Paroxysmal atrial fibrillation (HCC) Atrial fibrillation Elevated troponin Other abnormal blood chemistry Stage 3a chronic kidney disease (HCC) Hospital discharge follow-up Other follow-up examination [facility] Name Dates Details Instructions not documented [id number] Work Phone: Reason for referral (narrative)No reason for referral information [facility] Work Phone: Summary Purpose Family History No Family History Records FoundNo Family History Records FoundNo Family History Records FoundNo Family History Records FoundNo Family History Records FoundNo Family History Records FoundNo Family History Records Found Advance Directives No Advanced Directives Records FoundLatest Code Status on File Code Status Date Activated Date Inactivated Comments DNR-CCA 12/16/2023 11:34 PM 12/16/2023 11:35 PM Question Answer Comments ICU transfer: Yes Intubation: No Code Status History Code Status Date Activated Date Inactivated Comments Full Code 12/16/2023 4:16 PM 12/16/2023 11:34 PM Documents on File Type Date Recorded Patient Outpatient Coder Expl anation DNR (Do Not Resuscitate) 12/21/2023 9:18 AM DNR (Do Not Resuscitate) 11/21/2024 12:56 PM [place] DNR Form Date Activated Date Inactivated Comments 11/13/2024 3:07 PM 11/21/2024 7:32 PM Question Answer Comments ICU transfer: Yes Intubation: No Date Activated Date Inactivated Comments 12/16/2023 11:34 PM 12/16/2023 11:35 PM Question Answer Comments ICU transfer: Yes Intubation: No Date Activated Date Inactivated Comments 12/16/2023 4:16 PM 12/16/2023 11:34 PM Documents on File Type Date Recorded Patient Outpatient Coder Expl anation DNR (Do Not Resuscitate) 11/22/2024 10:33 AM DNR (Do Not Resuscitate) 12/21/2023 9:18 AM DNR (Do Not Resuscitate) 11/21/2024 12:56 PM [place] DNR Form Chief Complaint and Reason for Visit Chief Complaint HALFWAY LAB WOR K Chief Complaint HALFWAY LAB WOR K HALFWAY LABWORK LABWORK Chief Complaint HALFWAY LAB WOR K HALFWAY LABWORK LABWORK LABWORK Chief Complaint HALFWAY LAB WOR K HALFWAY LABWORK LABWORK HALFWAY LABWORK LABWORK Chief Complaint HALFWAY LAB WOR K HALFWAY LABWORK LABWORK HALFWAY LABWORK LABWORK HALFWAY LABWORK HALFWAY LABWORK Chief Complaint HALFWAY LAB WOR K HALFWAY LABWORK LABWORK HALFWAY LABWORK LABWORK HALFWAY LABWORK HALFWAY LABWORK HALFWAY LABWORK LABWORK Chief Complaint HALFWAY LAB WOR K HALFWAY LABWORK LABWORK HALFWAY LABWORK LABWORK HALFWAY LABWORK HALFWAY LABWORK HALFWAY LABWORK LABWORK LABWORK LABWORK Chief Complaint LABWORK HALFWAY LABWORK HALFWAY LABWORK HALFWAY LABWORK LABWORK LABWORK LABWORK HALFWAY LABWORK LABWORK Chief Complaint LABWORK LABWORK LABWORK HALFWAY LABWORK LABWORK LABWORK LABWORK Chief Complaint LABWORK LABWORK LABWORK HALFWAY LABWORK LABWORK LABWORK LABWORK LABWORK Chief Complaint LABWORK LABWORK HALFWAY LABWORK LABWORK LABWORK LABWORK LABWORK HALFWAY LAB WORK Chief Complaint Admit Date HALFWAY LAB WORK June 12, 2024 5:00am HALFWAY LAB WORK July 13, 2024 5:00am HALFWAY LAB WORK July 31, 2024 1:53pm LABWORK August 21, 2024 5:00am HALFWAY LAB WORK August 27 12:53am LABWORK August 30, 2024 5:10am Chief Complaint Admit Date HALFWAY LAB WORK July 13, 2024 5:00am HALFWAY LAB WORK July 31, 2024 1:53pm LABWORK August 21, 2024 5:00am HALFWAY LAB WORK August 27 12:53am LABWORK August 30, 2024 5:10am HALFWAY LAB WORK September 25, 2024 5 :00am Additional Source Comments INFORMATION SOURCE (unrecogn ized section and content) DATE CREATED AUTHOR 03/16/2018 [facility] DATE CREATED AUTHOR AUTHOR'S ORGANIZ ATION 10/31/2020 [facility] DATE CREATED AUTHOR AUTHOR'S ORGANIZ ATION 10/31/2020 [employer] DATE CREATED AUTHOR AUTHOR'S ORGANIZ ATION 05/21/2023 [facility] DATE CREATED AUTHOR AUTHOR'S ORGANIZ ATION 12/04/2024 [facility] DATE CREATED AUTHOR AUTHOR'S ORGANIZ ATION 02/11/2025 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 Start Date End Date Evi Guevara [address] [place] [phone] PCP - General Internal Medicine 12/16/23 Team Status: Active Member Role Status Dates Evi HACKETT Attending Provider Active Sta rt: June 12, 2024 Team Status: Inactive Member Role Status Dates Evi HACKETT Attending Provider Active Sta rt: July 13, 2024 End: July 13, 2024 Team Status: Active Member Role Status Dates Evi HACKETT Attending Provider Active Sta rt: July 31, 2024 Evi HACKETT Referring Provider Active Sta rt: July 31, 2024 Team Status: Inactive Member Role Status Dates Evi HACKETT Attending Provider Active Sta rt: August 21, 2024 End: August 21, 2024 Team Status: Active Member Role Status Dates [facility] Attending Provider Active Start: August 27, 2024 Team Status: Active Member Role Status Dates Evi Ismael LEW Attending Provider Active Sta rt: August 30, 2024 Team Status: Inactive Member Role Status Dates Evi Guevara LEW Attending Provider Active Sta rt: August 30, 2024 End: August 30, 2024 Team Status: Inactive Member Role Status Dates [facility] Attending Provider Active Start: August 27, 2024 End: August 27, 2024 Team Status: Inactive Member Role Status Dates Evi Guevara LEW Attending Provider Active Sta rt: July 31, 2024 End: July 31, 2024 Evi HACKETT Referring Provider Active Sta rt: July 31, 2024 End: July 31, 2024 Team Status: Inactive Member Role Status Dates Evi Guevara LEW Attending Provider Active Sta rt: September 25, 2024 End: September 25, 2024 Senior 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 Relationship Specialty Start Date End Date Shilpimaris Evi [address] [place] [address] PCP - General Internal Medicine 12/16/23 Senior 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 Relationship Specialty Start Date End Date Shilpimabel Evi [address] [place] [address] PCP - General Internal Medicine 12/16/23 Goals (unrecognized section and content) Goals may be documented in a n alternate sectionGoals may be documented in an alternate sectionGoals may be documented in an alternate sectionGoals may be documented in an alternate sectionGoals may be documented in an alternate sectionGoals may be documented in an alternate sectionGoals may be documented in an alternate sectionGoals may be documented in an alternate sectionGoals may be documented in an alternate sectionGoals may be documented in an alternate sectionGoals may be documented in an alternate sectionGoals may be documented in an alternate sectionGoals may be documented in an alternate sectionGoals may be documented in an alternate sectionGoals may be documented in an alternate sectionGoals may be documented in an alternate sectionGoals may be documented in an alternate section Reason for Visit (unrecogniz ed section and content) Specialty Diagnoses / Procedures Referred By Contac t Referred To Contact Diagnoses TIA (transient ischemic attack) Left-sided weakness Procedures - Bartolo Meehan MD [address] [place] [address] [facility] [address] [place] [address] Referral ID Status Reason Start Date Expiration Date Visits Re quested Visits Authorized [id number] 1 Reason Comments Consult Migraines Reason Comments Shortness of Breath Pt reports SOB from SNF. Per EMS pt was at 76% on RA on arrival. EMS states HX CHF and placed pt on BiPAP for transport to ED. Specialty Diagnoses / Procedures Referred By Contgeovanna thorne Referred To Contact Diagnoses Pulmonary congestion Hypercapnia Edema of extremities Acute kidney injury (nontraumatic) (CMS/HCC) (HCC) Acute electrocardiogram changes Pneumonia of both lower lobes due to infectious organism Congestive heart failure, unspecified HF chronicity, unspecified heart failure type (HCC) Procedures . Dominguez Franz MD [address] [place] [address] Phone: tel: fax: [facility] [address] [place] [address] Phone: tel: Referral ID Status Reason Start Date Expiration Date Visits Re quested Visits Authorized [id number] 1 Reason Comments Hospital Follow-up Congestive Heart Failure Atrial Fibrillation Reason Comments Patient Update Scheduled Active and Recently Administ ered Medications (unrecognized section and content) Medication Order 12/15/2023 12/16/2023 12/17/2023 aspirin EC tablet 81 mg(Linked Group 1) 81 mg, Oral, Daily, First dose on Liliya 12/16/23 at 1620, Do NOT administer if bleed present on follow up CT-Head and begin a minimum of 24 hours post tPA administration. Do not crush, chew, or split. 1644 (Given - Provider: Olive Peralta RN) 0833 (Given - Provider: Maria Eugenia Hickman RN) aspirin suppository 300 mg(Linked Group 1) 300 mg, Rectal, Daily, First dose on Liliya 12/16/23 at 1620, Do NOT administer if bleed present on follow up CT-Head and begin a minimum of 24 hours post tPA administration. Use suppository if NPO or failed swallow screen. 1644 (See Alternative - Provider: Olive Peralta RN) 0833 (See Alternative - Provider: Maria Eugenia Hickman, WEI) atorvastatin (Lipitor) tablet 40 mg 40 mg, Oral, Nightly, First dose on Liliya 12/16/23 at 2100 2034 (Given - Provider: Sang Cotton, WEI) enoxaparin (Lovenox) syringe 40 mg 40 mg, SubCUTAneous, Every 24 hours scheduled (Daily), First dose on Liliya 12/16/23 at 1620, Indication of Use: Prophylaxis-DVT/PE, Indications: Prophylaxis of Venous Thromboembolism 1644 (Given - Provider: Olive Peralta RN) 0833 (Given - Provider: Maria Eugenia Hickman, WEI) sodium chloride 0.9 % bolus 250 mL (COMPLETED) 250 mL, IntraVENous, at 250 mL/hr, Administer over 1 Hours, Once, On Liliya 12/16/23 at 1315, For 1 dose 1324 (New Bag - Provider: Niranjan Freire, EMT)1445 (Stopped - Provider: Olive Peralta RN) sodium chloride 0.9% (NS) flush 5-40 mL 5-40 mL, IntraVENous, Every 12 hours, First dose on Liliya 12/16/23 at 1315, For Line Patency: Peripheral IV = 5 mL; Midline or Central Line = 10 mL/lumen. If following IV push medication, administer flush at same rate as the IV push. Flush volume is determined by type of infusion therapy being given. For non-viscous solutions use: Peripheral IV = 5 mL Midline or Central Line = 10 mL/lumen For viscous solutions (i.e. blood components, parenteral nutrition, contrast media, or after obtaining blood sample) use: Peripheral IV = 10 mL Midline or Central Line = 20 mL/lumen 1450 (Given - Provider: Olive Peralta RN) 0115 (Not Given - Provider: Sang Cotton RN - Reason: IV Fluids Infusing)0833 (Given - Provider: Maria Eugenia Hickman, WEI) Continuous Medication Order 12/15/2023 12/16/2023 12/17/2023 sodium chloride 0.9 % infusion 50 mL/hr, IntraVENous, Continuous, Starting on Liliya 12/16/23 at 1315 1450 (New Bag - Provider: Olive Peralta, RN) 0622 (Rate/Dose Verify - Provider: Sang Cotton RN) PRN Medication Order 12/15/2023 12/16/2023 12/17/2023 acetaminophen (Tylenol) suppository 650 mg(Linked Group 2) 650 mg, Rectal, Every 6 hours PRN, mild pain (1-3), fever, For temp greater than 100.4 F (38 C), Starting on Liliya 12/16/23 at 1616, Administer if oral route cannot be used. Maximum dose of acetaminophen is 4000 mg from all sources in 24 hours. 2034 (See Alternative - Provider: Sang Cotton RN) acetaminophen (Tylenol) tablet 650 mg(Linked Group 2) 650 mg, Oral, Every 6 hours PRN, mild pain (1-3), fever, For temp greater than 100.4 F (38 C), Starting on Liliya 12/16/23 at 1616, Maximum dose of acetaminophen is 4000 mg from all sources in 24 hours. 2034 (Given - Provider: Sang Cotton RN) bisacodyl (Dulcolax) suppository 10 mg 10 mg, Rectal, Daily PRN, constipation, Starting on Liliya 12/16/23 at 1616, 2nd line for treatment of constipation - give scheduled (in addition to 1st line agent) if no bowel movement in past 48 hours iopamidol (Isovue-370) 76 % injection 75 mL (COMPLETED) 75 mL, IntraVENous, IMG once PRN, contrast, Starting on Liliya 12/16/23 at 1438, For 1 dose 1439 (Given - Provider: Emily Pugh, RT (R)(CT)) labetalol (Normodyne,Trandate) injection 10 mg 10 mg, IntraVENous, Every 10 min PRN, high blood pressure, Starting on Liliya 12/16/23 at 1616, Administer 10 mg IV every 10 minutes if SBP is 220 mmHg or greater OR DBP is 120 mmHg or greater. Notify provider if SBP is 220 mmHg or greater OR DBP is 120 mmHg or greater after 3 consecutive doses. ondansetron (Zofran) injection 4 mg(Linked Group 3) 4 mg, IntraVENous, Every 6 hours PRN, nausea, vomiting, Starting on Liliya 12/16/23 at 1616, 1st Line. Give IV if patient is unable to take orally. If inadequate response within 60 minutes, proceed to next-line agent or contact provider if no further options ordered. ondansetron ODT (Zofran-ODT) disintegrating tablet 4 mg(Linked Group 3) 4 mg, Oral, Every 8 hours PRN, nausea, vomiting, Starting on Liliya 12/16/23 at 1616, 1st Line. If inadequate response within 60 minutes, proceed to next-line agent or contact provider if no further options ordered. Patient should allow tablet to dissolve on tongue. Do not remove from blister pack until just before administering. perflutren protein A microsphere (Optison) 3 mL in sodium chloride (PF) 0.9 % 10 mL IV syringe (COMPLETED) 0-10 mL, IntraVENous, IMG once PRN, other, Suboptimal echo image, Starting on Liliya 12/16/23 at 1616, For 1 dose, CV Procedural Medications, Administer via slow IVP for suboptimal echocardiogram enhancement. May administer as divided doses to reach optimal image enhancement 1432 (Given - Provid er: Maria Eugenia Hickman RN) polyethylene glycol (PEG) 3350 (Miralax) packet 17 g 17 g, Oral, Daily PRN, constipation, Starting on Liliya 12/16/23 at 1616, 1st line for treatment of constipation - give scheduled if no bowel movement in past 24 hours. sodium chloride 0.9 % infusion 5-250 mL/hr, IntraVENous, PRN, if patient receiving piggyback infusions and maintenance fluids are not ordered OR KVO fluids to protect IV site / prevent frequent line interruptions / long duration, Starting on Liliya 12/16/23 at 1310, For piggyback infusion, administer at same rate as piggyback for a total of 25 mL. Enter 25 mL into dose field and piggyback rate into rate field of order. If piggyback is infusing at a rate less than 100 mL/hr, enter 25 mL into dose field and 100 mL/hr into rate field of order. For KVO fluids, enter rate of 20 mL/hr or less into rate field of order. sodium chloride 0.9% (NS) flush 5-40 mL 5-40 mL, IntraVENous, PRN, line care, After every IV line use, Starting on Liliya 6/13/24 at 1310, For Line Patency: Peripheral IV = 5 mL; Midline or Central Line = 10 mL/lumen. If following IV push medication, administer flush at same rate as the IV push. Flush volume is determined by type of infusion therapy being given. For non-viscous solutions use: Peripheral IV = 5 mL Midline or Central Line = 10 mL/lumen For viscous solutions (i.e. blood components, parenteral nutrition, contrast media, or after obtaining blood sample) use: Peripheral IV = 10 mL Midline or Central Line = 20 mL/lumen Linked Groups Order Group 1: aspirin EC tablet 81 mgJump to med 81 mg, Oral, Daily, First dose on Liliya 12/16/23 at 1620, Do NOT administer if bleed present on follow up CT-Head and begin a minimum of 24 hours post tPA administration. Do not crush, chew, or split. Or aspirin suppository 300 mgJump to med 300 mg, Rectal, Daily, First dose on Liliya 12/16/23 at 1620, Do NOT administer if bleed present on follow up CT-Head and begin a minimum of 24 hours post tPA administration. Use suppository if NPO or failed swallow screen. Group 2: acetaminophen (Tylenol) tablet 650 mgJump to med 650 mg, Oral, Every 6 hours PRN, mild pain (1-3), fever, For temp greater than 100.4 F (38 C), Starting on Liliya 12/16/23 at 1616, Maximum dose of acetaminophen is 4000 mg from all sources in 24 hours. Or acetaminophen (Tylenol) suppository 650 mgJump to med 650 mg, Rectal, Every 6 hours PRN, mild pain (1-3), fever, For temp greater than 100.4 F (38 C), Starting on Liliya 12/16/23 at 1616, Administer if oral route cannot be used. Maximum dose of acetaminophen is 4000 mg from all sources in 24 hours. Group 3: ondansetron ODT (Zofran-ODT) disintegrating tablet 4 mgJump to med 4 mg, Oral, Every 8 hours PRN, nausea, vomiting, Starting on Liliya 12/16/23 at 1616, 1st Line. If inadequate response within 60 minutes, proceed to next-line agent or contact provider if no further options ordered. Patient should allow tablet to dissolve on tongue. Do not remove from blister pack until just before administering. Or ondansetron (Zofran) injection 4 mgJump to med 4 mg, IntraVENous, Every 6 hours PRN, nausea, vomiting, Starting on Liliya 12/16/23 at 1616, 1st Line. Give IV if patient is unable to take orally. If inadequate response within 60 minutes, proceed to next-line agent or contact provider if no further options ordered. Scheduled Medication Order 11/19/2024 11/20/2024 11/21/2024 busPIRone (Buspar) tablet 2.5 mg 2.5 mg, Oral, 2 times daily, First dose on Wed11/14/24 at 0900, Indications: Anxiety Disorder 0856 (Given - Provider: Meka Pugh RN)2035 (Given - Provider: Tanja Alvarado RN) 09 (Given - Provider: Mary Lou Lake LPN)2056 (Given - Provider: Tanja Alvarado RN) 0855 (Given - Provider: Josey Jackson LPN) DULoxetine (Cymbalta) DR capsule 30 mg 30 mg, Oral, Daily, First dose on Wed11/14/24 at 0900, Do not crush or chew., Indications: Major Depressive Disorder 0855 (Given - Provider: Meka Pugh RN) 09 (Given - Provider: Mary Lou Lake LPN) 0854 (Given - Provider: Josey Jackson LPN) enoxaparin (Lovenox) syringe 40 mg 40 mg, SubCUTAneous, Every 24 hours scheduled (Daily), First dose on Wed11/13/24 at 1510, Indication of Use: Prophylaxis-DVT/PE, Indications: Prophylaxis of Venous Thromboembolism 2035 (Given - Provider: Tanja Alvarado RN) 2055 (Given - Provider: Tanja Alvarado RN) famotidine (Pepcid) tablet 20 mg 20 mg, Oral, Daily, First dose on Wed11/14/24 at 0900, Indications: Gastroesophageal Reflux Disease 0856 (Given - Provider: Meka Pugh RN) 0924 (Given - Provider: Mary Lou Lake LPN) 0855 (Given - Provider: Josey Jackson LPN) gabapentin (Neurontin) capsule 200 mg (CANCELED) 200 mg, Oral, 2 times daily, First dose (after last modification) on Wed11/18/24 at 0900, Hold if lethargic, Indications: Neuropathic Pain 0856 (Given - Provider: Meka Pugh RN)2035 (Given - Provider: Tanja Alvarado RN) 0924 (Given - Provider: Mary Lou Lake LPN) gabapentin (Neurontin) capsule 300 mg 300 mg, Oral, 2 times daily, First dose (after last modification) on Wed11/20/24 at 2100, Hold if lethargic, Indications: Neuropathic Pain 2056 (Given - Provider: Tanja Alvarado RN) 0855 (Given - Provider: Josey Jackson LPN) hydrALAZINE (Apresoline) tablet 100 mg 100 mg, Oral, 3 times daily, First dose on Wed11/17/24 at 0815 0855 (Given - Provider: Meka Pugh RN)1301 (Given - Provider: Meka Pugh RN)2035 (Given - Provider: Tanja Alvarado RN) 0923 (Given - Provider: Mary Lou Lake LPN)1404 (Given - Provider: Mary Lou Lake LPN)2055 (Given - Provider: Tanja Alvarado RN) 0854 (Given - Provider: Josey Jackson LPN)1512 (Given - Provider: Josey Jackson LPN) Insulin Lispro (Humalog) injection 0-12 Units(Linked Group 1) 0-12 Units, SubCUTAneous, 3 times daily with meals, First dose on Wed11/14/24 at 0800, Medium Dose Correction Algorithm Glucose: Dose: LESS than 150 No Insulin 150-199 2 Units 200-249 4 Units 250-299 6 Units 300-349 8 Units 350-400 10 Units Above 400 12 Units 0856 (Given - Provider: Meka Pugh RN)1249 (Given - Provider: Meka Pugh RN)1735 (Not Given - Provider: Meka Pugh RN - Reason: Order parameters not met) 0923 (Given - Provider: Mary Lou Lake LPN)1239 (Not Given - Provider: Mary Lou Lake LPN - Reason: Order parameters not met)1644 (Not Given - Provider: Mary Lou Lake LPN - Reason: Order parameters not met) 0754 (Not Given - Provider: Josey Jackson LPN - Reason: Order parameters not met)1223 (Not Given - Provider: Josey Jackson LPN - Reason: Order parameters not met)1700 (Canceled Entry - Provider: Automatic Discharge Provider - Comment: Automatically canceled at discontinue of medication order) Insulin Lispro (Humalog) injection 0-12 Units(Linked Group 1) 0-12 Units, SubCUTAneous, Nightly, First dose on Wed11/14/24 at 2100, If eating or bolus tube feeding: Medium Dose Correction Algorithm Glucose: Dose: LESS than 150 No Insulin 150-199 2 Units 200-249 4 Units 250-299 6 Units 300-349 8 Units 350-400 10 Units Above 400 12 Units 2043 (Not Given - Provider: Tanja Alvarado RN - Reason: Order parameters not met) 2056 (Given - Provider: Tanja Alvarado RN) isosorbide mononitrate ER (Imdur) 24 hr tablet 30 mg 30 mg, Oral, Daily, First dose on Wed11/17/24 at 0900, Do not chew or crush ER tablets; may be divided in half. Due to insoluble matrix embedding, ER tablets that are scored may be split. 0856 (Given - Provider: Meka Pugh RN) 0924 (Given - Provider: Mary Lou Lake LPN) 0854 (Given - Provider: Josey Jackson LPN) levothyroxine (Synthroid, Levoxyl) tablet 50 mcg 50 mcg, Oral, Daily before breakfast, First dose on Wed11/14/24 at 0600, Tube feeding (TF) interaction, obtain physician order to manage, recommend holding TF for 30 minutes before and after dose., Indications: Hypothyroidism 0612 (Given - Provider: Mini Pineda RN) 0539 (Given - Provider: Tanja Alvarado RN) 0536 (Given - Provider: Tanja Alvarado RN) lisinopril tablet 5 mg 5 mg, Oral, Daily, First dose (after last modification) on Wed11/17/24 at 0900, On hold since Wed11/17/2024 at 1519 until manually unheld 09 (Dose Auto Held - Provider: Ni Sam MD) 09 (Dose Auto Held - Provider: Ni Sam MD) 09 (Dose Auto Held - Provider: Ni Sam MD)192 (Unheld by provider - Provider: Automatic Discharge Provider) melatonin tablet 3 mg 3 mg, Oral, Nightly, First dose on Wed11/13/24 at 2100, Indications: Insomnia 2034 (Given - Provider: Tanja Alvarado RN) 2055 (Given - Provider: Tanja Alvarado RN) metoprolol succinate XL (Toprol-XL) 24 hr tablet 100 mg 100 mg, Oral, Daily, First dose on Wed11/15/24 at 2000, Do not crush or chew. 0856 (Given - Provider: Meka Pugh RN) 0924 (Given - Provider: Mary Lou Lake LPN) 0855 (Given - Provider: Josey Jackson LPN) potassium chloride (Klor-Con) packet 40 mEq (COMPLETED) 40 mEq, Oral, Once, On Wed11/19/24 at 1045, For 1 dose, Dissolve each packet in 4 ounces of water = 5 mEq per 1 oz fluid. 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 Maximum dose of acetaminophen is 4000 mg from all sources in 24 hours. 214 (See Alternative - Provider: Mini Pineda RN)2034 (See Alternative - Provider: Tanja Alvarado, RN) acetaminophen (Tylenol) tablet 650 mg(Linked Group 2) 650 mg, Oral, Every 6 hours PRN, mild pain (1-3), fever, For temp greater than 100.4 F (38 C), Starting on Wed11/13/24 at 1458, Maximum dose of acetaminophen is 4000 mg from all sources in 24 hours. 021 (Given - Provider: Mini Pineda RN)2034 (Given - Provider: Tanja Alvarado, RN) aluminum & magnesium hydroxide-simethicone (Mylanta) 200-200-20 MG/5ML oral suspension 10 mL 10 mL, Oral, Every 4 hours PRN, indigestion, heartburn, Starting on Wed11/13/24 at 1801 oenthvw-zdmbvjxilnsce-uheznisc (Excedrin Migraine) 250-250-65 MG per tablet 2 tablet 2 tablet, Oral, Every 8 hours PRN, headaches, Starting on Wed11/13/24 at 1542 0624 (Given - Provider: Mini Pineda, WEI) dextrose 5 % infusion 100 mL/hr, IntraVENous, PRN, Blood sugar less than 70mg/dL, Starting on Wed11/14/24 at 0759, Start infusion following administration of dextrose 50% or glucagon. dextrose 50 % solution 12.5 g 12.5 g, IntraVENous, PRN, low blood sugar, Blood glucose less than 70 mg/dL and patient NOT ALERT or NPO., Starting on Wed11/14/24 at 0759, If patient does not respond within 5 minutes, repeat dose x1. Start D5W at 100 mL/hour until ordering provider can be reached. Repeat blood glucose in 15 minutes. If blood glucose is less than 70 mg/dL, repeat treatment and recheck blood glucose in 15 minutes x2. If using Glucostabilizer, dose as instructed per system. glucagon (human recombinant) injection 1 mg 1 mg, IntraMUSCular, PRN, low blood sugar, Blood glucose less than 70 mg/dL and patient NOT ALERT or NPO and does not have IV access., Starting on Wed11/14/24 at 0759, After administration, attempt intravenous access and start D5W at 100 mL/hr. Repeat blood glucose in 15 minutes x2 and notify provider. glucose oral gel 15 g 15 g, Oral, As needed, low blood sugar, Starting on Wed11/14/24 at 0759, If blood glucose less than 50 mg/dL and patient ALERT and NOT NPO, give 2 tubes glucose gel. If blood glucose less than 70 mg/dL and patient ALERT and NOT NPO, give 1 tube glucose gel. Repeat blood glucose in 15 minutes. If blood glucose is less than 70 mg/dL, repeat treatment and recheck blood glucose in 15 minutes x2 and notify provider. hydrALAZINE (Apresoline) tablet 25 mg 25 mg, Oral, Every 8 hours PRN, systolic over 160, Starting on Wed11/14/24 at 0443 ipratropium-albuterol (Duo-Neb) 0.5-2.5 mg/3 mL nebulizer solution 3 mL 3 mL, Nebulization, 4 times daily PRN, wheezing, Starting on Wed11/14/24 at 0447 labetalol (Normodyne,Trandate) injection 10 mg 10 mg, IntraVENous, Every 6 hours PRN, high blood pressure, For SBP >= 150, Starting on Wed11/14/24 at 2256 lidocaine (Xylocaine) 2 % mouth solution 15 mL 15 mL, Mouth/Throat, Every 3 hours PRN, mild pain (1-3), Starting on Wed11/13/24 at 1541, Max 8 doses per 24-hour period magnesium hydroxide (Milk of Magnesia) 400 MG/5ML suspension 30 mL 30 mL, Oral, Daily PRN, constipation, Starting on Wed11/13/24 at 1801, Follow dose with 8 oz of water., Indications: Constipation naloxone (Narcan) injection 0.4 mg 0.4 mg, IntraVENous, Every 5 min PRN, opioid reversal, respiratory depression, Starting on Wed11/14/24 at 0455, +++ For RR <10, pinpoint pupils, over sedation for opioid reversal - MUST notify reproduction production manager provider immediately after first dose, may give IM or SQ if no IV access +++ ondansetron (Zofran) injection 4 mg(Linked Group 3) 4 mg, IntraVENous, Every 6 hours PRN, nausea, vomiting, Starting on Wed11/13/24 at 1458, 1st Line. Give IV if patient is unable to take orally. If inadequate response within 60 minutes, proceed to next-line agent or contact provider if no further options ordered. ondansetron ODT (Zofran-ODT) disintegrating tablet 4 mg(Linked Group 3) 4 mg, Oral, Every 8 hours PRN, nausea, vomiting, Starting on Wed11/13/24 at 1458, 1st Line. If inadequate response within 60 minutes, proceed to next-line agent or contact provider if no further options ordered. Patient should allow tablet to dissolve on tongue. Do not remove from blister pack until just before administering. oxyCODONE-acetaminophen (Percocet) 5-325 MG per tablet 1 tablet 1 tablet, Oral, Every 8 hours PRN, for pain, Starting on Wed11/14/24 at 0448, Maximum dose of acetaminophen is 4000 mg from all sources in 24 hours., Indications: Pain phenol (Chloraseptic) 1.4 % mouth/throat spray 1 spray 1 spray, Mouth/Throat, Every 2 hour PRN, sore throat, Starting on Wed11/13/24 at 1541, Instruct patient to spit out after 15 seconds. polyethylene glycol (PEG) 3350 (Miralax) packet 17 g 17 g, Oral, Daily PRN, constipation, Starting on Wed11/13/24 at 1458, 1st line for treatment of constipation - give scheduled if no bowel movement in past 24 hours. 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 Order Group 1: Insulin Lispro (Humalog) injection 0-12 UnitsJump to med 0-12 Units, SubCUTAneous, 3 times daily with meals, First dose on Wed11/14/24 at 0800, Medium Dose Correction Algorithm Glucose: Dose: LESS than 150 No Insulin 150-199 2 Units 200-249 4 Units 250-299 6 Units 300-349 8 Units 350-400 10 Units Above 400 12 Units And Insulin Lispro (Humalog) injection 0-12 UnitsJump to med 0-12 Units, SubCUTAneous, Nightly, First dose on Wed11/14/24 at 2100, If eating or bolus tube feeding: Medium Dose Correction Algorithm Glucose: Dose: LESS than 150 No Insulin 150-199 2 Units 200-249 4 Units 250-299 6 Units 300-349 8 Units 350- 400 10 Units Above 400 12 Units Group 2: acetaminophen (Tylenol) tablet 650 mgJump to med 650 mg, Oral, Every 6 hours PRN, mild pain (1-3), fever, For temp greater than 100.4 F (38 C), Starting on Wed11/13/24 at 1458, Maximum dose of acetaminophen is 4000 mg from all sources in 24 hours. Or acetaminophen (Tylenol) suppository 650 mgJump to med 650 mg, Rectal, Every 6 hours PRN, fever, For temp greater than 100.4 F (38 C), Starting on Wed11/13/24 at 1458, Administer if oral route cannot be used. Maximum dose of acetaminophen is 4000 mg from all sources in 24 hours. Group 3: ondansetron ODT (Zofran-ODT) disintegrating tablet 4 mgJump to med 4 mg, Oral, Every 8 hours PRN, nausea, vomiting, Starting on Wed11/13/24 at 1458, 1st Line. If inadequate response within 60 minutes, proceed to next-line agent or contact provider if no further options ordered. Patient should allow tablet to dissolve on tongue. Do not remove from blister pack until just before administering. Or ondansetron (Zofran) injection 4 mgJump to med 4 mg, IntraVENous, Every 6 hours PRN, nausea, vomiting, Starting on Wed11/13/24 at 1458, 1st Line. Give IV if patient is unable to take orally. If inadequate response within 60 minutes, proceed to next-line agent or contact provider if no further options ordered. Source Comments (unrecognize d section and content) In the event this informatio n is protected by the Federal Confidentiality of Alcohol and Drug Abuse Patient Records regulations: The Federal rules restrict any use of the information to criminally investigate or prosecute any alcohol or drug abuse patient.[facility] the event this information is protected by the Federal Confidentiality of Alcohol and Drug Abuse Patient Records regulations: The Federal rules restrict any use of the information to criminally investigate or prosecute any alcohol or drug abuse patient.[facility] FOR RECORDS PERTAINING TO PATIENTS WHO ARE OR HAVE BEEN ENROLLED IN A CHEMICAL DEPENDENCY/SUBSTANCEABUSE PROGRAM, SOME INFORMATION MAY BE OMITTED. This clinical summary was aggregated from multiple sources. Caution should be exercised in using it in the provision of clinical care. This summary normalizes information from multiple sources, and as a consequence, information in this document may materially change the coding, format and clinical context of patient data. In addition, data may be omitted in some cases. CLINICAL DECISIONS SHOULD BE BASED ON THE PRIMARY CLINICAL RECORDS. [facility] [employer] [facility]. provides no warranty or guarantee of the accuracy or completeness of information in this document.
[2025-03-01 09:20] LABS: Hematocrit 36.3 % (37-47); Hemoglobin 12.3 g/dL (12.0-15.0); Mean Corp Hgb Conc 33.9 g/dL (32-36); Mean Corpuscular Volume 96.5 fL (81-99); Mean Platelet Vol. 11.3 fl (6.2-12.0); Platelet Count 272 K/mm3 (150-450); RBC Distribution Width CV 13.7 % (11.6-14.6); RBC Distribution Width SD 48.9 fl (35.1-43.9); Red Blood Count 3.76 M/mm3 (4.2-5.4); White Blood Count 9.2 K/mm3 (4.4-11.0)
[2025-03-01 09:35] LABS: Anion Gap 10 (5-15); BUN 39 mg/dL (4-19); BUN/Creat Ratio 23.1 RATIO (10-20); Calcium,Total 9.0 mg/dL (7.6-11.0); Carbon Dioxide 21.5 mmol/L (21.0-32.0); Chloride 105 mmol/L (98-108); Glucose 118 mg/dL (70-99); Potassium 4.6 mmol/L (3.3-5.1)
== END ==
LOC: OLS.SANC 05:00
PROVIDERS: Visit Provider Internal Medicine
DX: E78.5 Hyperlipidemia, unspecified (principal); E03.9 Hypothyroidism, unspecified; K71.6 Toxic liver disease with hepatitis, not elsewhere classified; B19.20 Unspecified viral hepatitis C without hepatic coma
CPT/HCPCS: 36415; 80048; 85027

== ENCOUNTER → 2025-03-29 | Outpatient (REF) | payer MEDICARE, MEDICAID, SELFPAY ==
[2025-03-29 09:53] LABS: Hematocrit 38.4 % (37-47); Hemoglobin 13.0 g/dL (12.0-15.0); Mean Corp Hgb Conc 33.9 g/dL (32-36); Mean Corpuscular Volume 97.2 fL (81-99); Mean Platelet Vol. 10.9 fl (6.2-12.0); Platelet Count 247 K/mm3 (150-450); RBC Distribution Width CV 13.2 % (11.6-14.6); RBC Distribution Width SD 46.8 fl (35.1-43.9); Red Blood Count 3.95 M/mm3 (4.2-5.4); White Blood Count 6.9 K/mm3 (4.4-11.0)
[2025-03-29 10:24] LABS: AST(SGOT) 21 U/L (<=31); Alanine Aminotransfer ALT/SGPT 15 U/L (<=34); Albumin, Serum 3.6 g/dL (3.4-4.8); Alkaline Phosphatase 99 U/L (35-104); Anion Gap 10 (5-15); BUN 42 mg/dL (4-19); BUN/Creat Ratio 29.6 RATIO (10-20); Calcium,Total 9.1 mg/dL (7.6-11.0); Carbon Dioxide 21.5 mmol/L (21.0-32.0); Chloride 106 mmol/L (98-108); Cholesterol 153 mg/dL (<=200); Globulin 2.0 g/dL (2.2-4.2); Glucose 110 mg/dL (70-99); Low Density Lipoprotein Calc. 93 mg/dL; Potassium 4.7 mmol/L (3.3-5.1); Triglycerides 119 mg/dL; Very Low Density Lipoprotein 24 mg/dL (5-40); cholesterol:hdl ratio screen 4.23
== END ==
LOC: OLS.SANC 07:15
PROVIDERS: Visit Provider Internal Medicine
DX: I10 Essential (primary) hypertension (principal); E03.9 Hypothyroidism, unspecified; F03.90 Unspecified dementia, unspecified severity, without behavioral disturbance, psychotic disturbance, mood disturbance, and anxiety
CPT/HCPCS: 36415; 80053; 80061; 83036; 84443; 85027

== ENCOUNTER → 2025-04-24 | Outpatient (REF) | payer MEDICARE, MEDICAID, SELFPAY ==
[2025-04-25 06:18] LABS: Mucous, Urine 0 SEEN /hpf (<or=2+)
[2025-04-25 06:35] LABS: Color, Urine Yellow (Yellow); Glucose, Dipstick Normal (Normal); Ketone-Dipstick Negative (Negative); Leukocyte Esterase-Dipstick 500 /ul (Negative); Nitrite-Dipstick Positive (Negative); Occult Blood-Urine 10 /ul (Negative); Protein-Dipstick 15 mg/dl (Negative); Specific Gravity, Urine 1.010 (1.002-1.030); Urine Bilirubin Dipstick Negative (Negative)
[2025-04-25 13:27] LABS: Red Blood Cells-Urine 0-5 SEEN /hpf (0-5); Squamous Epithelial Cells - UA 0-5 SEEN /hpf (5-10)
== END ==
LOC: OLS.SANC 20:00
PROVIDERS: Referring Provider Internal Medicine; Visit Provider Internal Medicine
DX: N39.0 Urinary tract infection, site not specified (principal)
CPT/HCPCS: 81001; 87077; 87086; 87088; 87186

== ENCOUNTER → 2025-06-20 16:35 | Outpatient (REF) | payer MEDICARE, MEDICAID, SELFPAY ==
[2025-06-21 09:00] LABS: Mucous, Urine 0 SEEN /hpf (<or=2+)
[2025-06-21 10:04] LABS: Color, Urine Yellow (Yellow); Glucose, Dipstick Normal (Normal); Ketone-Dipstick Negative (Negative); Leukocyte Esterase-Dipstick 500 /ul (Negative); Nitrite-Dipstick Positive (Negative); Occult Blood-Urine 10 /ul (Negative); Protein-Dipstick 15 mg/dl (Negative); Specific Gravity, Urine 1.020 (1.002-1.030); Urine Bilirubin Dipstick Negative (Negative)
[2025-06-21 10:14] LABS: Red Blood Cells-Urine 0-5 SEEN /hpf (0-5); Squamous Epithelial Cells - UA 0-5 SEEN /hpf (5-10)
== END ==
LOC: OLS.SANC 16:35
PROVIDERS: Visit Provider Internal Medicine
DX: R39.9 Unspecified symptoms and signs involving the genitourinary system (principal)
CPT/HCPCS: 81001; 87077; 87086; 87088; 87186

== ENCOUNTER → 2025-06-27 06:13 | Outpatient (REF) | payer MEDICARE, MEDICAID, SELFPAY ==
--- OUTSIDE RECORDS SUMMARY | 2025-06-27 08:23 | XMS RPT_ITS | CCD ---
Author Organization [facility] Care Team Providers Care Gamewell Operator Name Role Phone PROVIDER, UNKNOWN Unavailable Unavailable Manddaya, Grant Unavailable Unavailable Efraín Negrete Unavailable Unavailable Mandat, Grant Unavailable Unavailable Mandat, Grant Unavailable Unavailable [facility] Unavailable Unavailable Alfonso Berry Unavailable Unavailable [...] Unavaila ble Evi Guevara Primary Care Provider Unavailable Primary Care Provider Unavailabl e Evi Mahoney Attending Provider Unavailab le [place]mael HACKETT, Evi Referring Provider Unavailab [facility] [place] Attending Provider [phone] Evi Mahoney Attending Provider Unavailab le ShilpisaEvi Bowman Referring Provider Unavailab [facility] [place] Attending Provider Evi Guevara Primary Care Provider [phone] MIRANDA MAGAÑA Attending Unavailable EVI GUEVARA Primary Care Unavailable EVI GUEVARA Primary Care Unavailable SHEFALITOBIAN Admitting Unavailable SHEFALIBARTOLO Attending Unavailable EVI GUEVARA Primary Care Unavailable FRANCISCO, DOMINGUEZ Admitting Unavailable ALAJAJI, WISSAM Consulting Unavailable AVI VASQUEZ Attending Unavailable ANGELINA TRUJILLO Attending Unavailable EVI GUEVARA Primary Care Unavaila ANGELINA Payton Attending Unavailable Evi Mahoney Attending Physician Unavaila ble Ismael HACKETT, Evi Attending Unavailable Katsaros LEW, Evi Attending Unavailable Katsaros LEW, Evi Attending [facility]available [facility] [place] Attending Evi Grimes Attending Unavailable Katsaros Evi HACKETT Attending Unavailable KatsaEvi Bowman Referring Unavailable Katsaros LEW, Evi Attending Unavailable Katsaros LEW, Evi Attending Unavailable Katsaros LEW, Evi Referring Unavailable Katsaros LEW, Evi Attending Unavailable Katsaros LEWEiv Attending Unavailable KatsaEvi Bowman Attending Unavailable Evi Mahoney Attending Unavailable Evi Mahoney Attending Unavailable Evi Mahoney Attending Unavailable Allergies [...] 23-AIDA PS VACCINE] Drug Allergy 12-30-2012 Unknown [facility] Medications Current Medications Medication Drug Class(es) Dates [...] Start: 11-29-2014 take 1 tablet by gaurav th once daily at bedtime topiramate (TOPAMAX) 100 [...] 12/25/2013 08/18/2024 Discontinued take 1 capsule by [facility] once daily DULoxetine (CYMBALTA) 30 mg capsule [...] 24 hours scheduled (Daily), First dose on [facility] 12/16/23 at 1620, Indication of Use: Prophylaxis-DVT/PE, [...] 11-13-2024 End: 11-21-2024 take 3 tablets by [facility] once daily melatonin 1 MG tablet [...] PRN, other, Suboptimal echo image, Starting on [facility] 12/16/23 at 1616, For 1 dose, CV Procedural Medications, Administer via slow IVP for suboptimal echocardiogram enhancement. May administer as divided doses to reach optimal image enhancement phenol 14 mg/ml mucosal spray (2 sources) Start: 11-13-2024 End: 11-21-2024 polyethylene glycol 3350 18264 mg powder for oral solution (8 sources) [...] 11-Oct-2019 Active take 1 tablet by gaurav th every six hours as needed for pain [...] (3 sources) Headache; Translations: [Headache] 08-18-2024 Episodic Hepatitis (1 source) Toxic liver disease with hepatitis, not elsewhere classified; Translations: [Toxic liver disease with hepatitis, not elsewhere classified] Onset: 5 Chronic Hepatitis (1 source) Unspecified viral hepatitis C without hepatic coma; Translations: [Unspecified viral hepatitis C without hepatic coma] Onset: 5 Episodic Hypertension with complications and secondary hypertension [...] unspecified] Onset: 9 11-21-2024 Chronic Nutritional deficiencies (4 sources) Vitamin D deficiency, unspecified; Translations: [Vitamin [...] syndrome; Translations: [Chronic pain syndrome] Onset: 5 Chronic Other nutritional; endocrine; and metabolic disorders (5 sources) Obesity; Translations: [Obesity, unspecified] Onset: 9 11-22-2013 Chronic Other nutritional; endocrine; and metabolic disorders (1 source) Other lipid storage disorders; 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] Onset: 5 Chronic Other screening for suspected conditions (not [...] Worsening headaches; Translations: [Worsening headaches] Onset: 5 Urinary tract infections (1 source) Urinary tract infection, site not specified; Translations: [Urinary tract infection, site not specified] Onset: 5 Episodic Past or Other Problems Problem Classification Problem Date Documented Da te Episodic/Chronic Malaise and fatigue (12 sources) Left hemiparesis; Translations: [Weakness] Onset: 12-16-2023 12-16-2023 Episodic Other aftercare (2 sources) Other [facility] (current) drug therapy; 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] Onset: 07-07-2024 Episodic Pneumonia (except that caused by tuberculosis or sexually transmitted disease) (9 sources) Bilateral pneumonia; Translations: [Pneumonia, unspecified organism] Onset: 11-13-2024 Resolved: 11-15-2024 11-13-2024 Episodic Residual codes; unclassified (1 source) Altered mental status, unspecified; Translations: [Altered mental status, unspecified] Onset: 09-08-2024 Episodic NEGATED: Highlighted row has not occurred!Residual codes; unclassified (2 sources) Disease Episodic Results Test Name Value Interpretation Reference Range Facility Urine Cultureon 04-28-2025 [facility] STRAIGHT CATH Copy of report sent to Infection Control Printer [id number] 04/28/25 0903 ASNIPES. Urine Culture ESBL Escherichia coli [place] Count 80,000-100,000 MARKER ESBL producing OrganismA MARKER ESBL producing OrganismA Ampicillin Islt THI >=32 R Ampicillin+Sulbac Islt THI >=32 Cefepime Islt THI 16 R cefTRIAXone Islt THI >=64 R Ciprofloxacin Islt THI >=4 R B-Lactamase Extended Susc Islt POS Gentamicin Islt THI <=1 S levoFLOXacin Islt THI >=8 R Meropenem Islt THI <=0.25 S Nitrofurantoin Islt THI <=16 S Pip+Tazo Islt THI >=128 R TMP SMX Islt THI >=320 R ESBL Escherichia coli: REACTION Amikacin Islt THI 2 S Eravacycline Islt THI <=0.12 Imipenem Islt THI <=0.25 S Tobramycin Islt THI <=1 S Normal [facility] Comment on above: Performed By: #### L [id number], L500.4050, L501.9985, L500.4100, L100.0500 #### [facility] [address] [place], [address] Urinalysis, Completeon 04-25 BACTERIA 3+ /hpf Normal None Seen [facility] Comment on above: Order Comment: 303.2 Performed By: #### L [id number], L500.4050, L501.9985, L500.4100, L100.0500 #### [facility] [address] [place], [address] EPI,SQUAMOUS 0-5 SEEN Normal 5-10 [facility] Comment on above: Order Comment: 303.2 Performed By: #### L [id number], L500.4050, L501.9985, L500.4100, L100.0500 #### [facility] [address] [place], [address] RBC 0-5 SEEN Normal 0-5 [facility] Comment on above: Order Comment: 303.2 Performed By: #### L [id number], L500.4050, L501.9985, L500.4100, L100.0500 #### [facility] [address] [place], [address] WBC 25-50 SEEN Normal 0-5 [facility] Comment on above: Order Comment: 303.2 Performed By: #### L [id number], L500.4050, L501.9985, L500.4100, L100.0500 #### [facility] [address] [place], [address] Mucus Ql (Urine sed) 0 SEEN Normal [facility] Comment on above: Order Comment: 303.2 Performed By: #### L [id number], L500.4050, L501.9985, L500.4100, L100.0500 #### [facility] [address] [place], [address] Bilirubin Test strip Ql (U)O rdered By: Evi Guevara on 04-24-2025 Bilirubin Ql (U) Negative Negative [facility] Ketones Test strip Ql (U)Ord ered By: Evi Guevara on 04-24-2025 Ketones Ql (U) Negative Negative [facility] Microscopic analysis of urin e for red blood cells (RBC)Ordered By: Evi Guevara on 04-24-2025 Microscopic analysis of urine for red blood cells (RBC) 0-5 SEEN /hpf 0-5 [facility] Mucus LM Ql (Urine sed)Order ed By: Evi Guevara on 04-24-2025 Mucus Ql (Urine sed) 0 SEEN /hpf [facility] Nitrite Test strip Ql (U)Ord ered By: Evi Guevara on 04-24-2025 Nitrite Ql (U) Positive High Negative [facility] Protein Test strip Ql (U)Ord ered By: Evi Guevara on 04-24-2025 Protein Ql (U) 15 mg/dl High Negative [facility] Squamous epithelial cells de tection in urine sediment by light microscopyOrdered By: Evi Guevara on 04-24-2025 Epithelial cells.squamous LM Ql (Urine sed) 0-5 SEEN /hpf 5-10 [facility] Urine clarityOrdered By: Mark Guevara on 04-24-2025 Clarity (U) Cloudy Clear [facility] Urine color determinationOrd ered By: Evi Guevara on 04-24-2025 Color (U) Yellow Yellow [facility] Urine cultureOrdered By: Mark Guevara on 04-24-2025 Bacteria identified Cx Nom (U) ESBL Escherichia coli Abnormal [facility] Urine glucose detectionOrder ed By: Evi Guevara on 04-24-2025 Glucose Ql (U) Normal mg/dl Normal [facility] Urine leukocyte esterase det ection by dipstickOrdered By: Evi Guevara on 04-24-2025 Leukocyte esterase Test strip Ql (U) 500 /ul High Negative [facility] Urine pHOrdered By: Evi gillette on 04-24-2025 pH (U) 6.0 [pH] 5.0 - 8.0 [facility] Urine sediment bacteria coun t by microscopy (number/high power field)Ordered By: Evi Guevara on 04-24-2025 Bacteria LM.HPF (Urine sed) [#/Area] 3 /[HPF] None Seen [facility] Urine specific gravity measu rementOrdered By: Evi Guevara on 04-24-2025 Specific gravity (U) [Rel density] 1.010 1.002-1.030 [facility] Urine urobilinogen measureme ntOrdered By: Evi Guevara on 04-24-2025 Urobilinogen Ql (U) Normal mg/dl Normal [facility] White blood cell countOrdere d By: Evi Guevara on 04-24-2025 White blood cell count 25-50 SEEN /hpf 0-5 [facility] Basic Metabolic Profile (BMP )on 03-30-2025 BUN Normal - [facility] Comment on above: Order Comment: 303.2 Result Comment: COMP LETED 03/29 Performed By: #### L 501.9520, L500.4050, L501.9985, L500.4100, L100.0500 #### [facility] [address] [place], [place], [id number] BUN/CRE Normal - [facility] Comment on above: Order Comment: 303.2 Result Comment: COMP LETED 03/29 Performed By: #### L 501.9520, L500.4050, L501.9985, L500.4100, L100.0500 #### [facility] [address] [place], [address] Calcium Normal 7.6-11.0 [facility] Comment on above: Order Comment: 303.2 Result Comment: COMP LETED 03/29 Performed By: #### L 501.9520, L500.4050, L501.9985, L500.4100, L100.0500 #### [facility] [address] [place], [address] CL Normal 98-108 [facility] Comment on above: Order Comment: 303.2 Result Comment: COMP LETED 03/29 Performed By: #### L 501.9520, L500.4050, L501.9985, L500.4100, L100.0500 #### [facility] [address] [place], [address] CO2 Normal 21.0-32.0 [facility] Comment on above: Order Comment: 303.2 Result Comment: COMP LETED 03/29 Performed By: #### L 501.9520, L500.4050, L501.9985, L500.4100, L100.0500 #### [facility] [address] [place], [address] CREAT,SERUM Normal 0.70-1.20 [facility] Comment on above: Order Comment: 303.2 Result Comment: COMP LETED 03/29 Performed By: #### L 501.9520, L500.4050, L501.9985, L500.4100, L100.0500 #### [facility] [address] [place], [address] eGFR Normal >60 [facility] Comment on above: Order Comment: 303.2 Result Comment: COMP LETED 03/29 Performed By: #### L 501.9520, L500.4050, L501.9985, L500.4100, L100.0500 #### [facility] [address] [place], [address] GAP Normal 5-15 [facility] Comment on above: Order Comment: 303.2 Result Comment: COMP LETED 03/29 Performed By: #### L 501.9520, L500.4050, L501.9985, L500.4100, L100.0500 #### [facility] [address] [place], [address] GLU Normal 70-99 [facility] Comment on above: Order Comment: 303.2 Result Comment: COMP LETED 03/29 Performed By: #### L 501.9520, L500.4050, L501.9985, L500.4100, L100.0500 #### [facility] [address] [place], [address] Potassium Normal 3.3-5.1 [facility] Comment on above: Order Comment: 303.2 Result Comment: COMP LETED 03/29 Performed By: #### L 501.9520, L500.4050, L501.9985, L500.4100, L100.0500 #### [facility] [address] [place], [address] Basic Metabolic Profile (BMP) Normal 133-145 [facility] Comment on above: Order Comment: 303.2 Result Comment: COMP LETED 03/29 Performed By: #### L 501.9520, L500.4050, L501.9985, L500.4100, L100.0500 #### [facility] [address] [place], [address] CBC-Complete Blood Cnt No Di ffon 03-30-2025 HCT Normal 37-47 [facility] Comment on above: Order Comment: 303.2 Result Comment: COMP LETED 03/29 Performed By: #### L 501.9520, L500.4050, L501.9985, L500.4100, L100.0500 #### [facility] [address] [place], [address] HGB Normal 12.0-15.0 [facility] Comment on above: Order Comment: 303.2 Result Comment: COMP LETED 03/29 Performed By: #### L 501.9520, L500.4050, L501.9985, L500.4100, L100.0500 #### [facility] [address] [place], [address] MCH Normal 27.0-32.0 [facility] Comment on above: Order Comment: 303.2 Result Comment: COMP LETED 03/29 Performed By: #### L 501.9520, L500.4050, L501.9985, L500.4100, L100.0500 #### [facility] [address] [place], [address] MCHC Normal 32-36 [facility] Comment on above: Order Comment: 303.2 Result Comment: COMP LETED 03/29 Performed By: #### L 501.9520, L500.4050, L501.9985, L500.4100, L100.0500 #### [facility] [address] [place], [address] MCV Normal 81-99 [facility] Comment on above: Order Comment: 303.2 Result Comment: COMP LETED 03/29 Performed By: #### L 501.9520, L500.4050, L501.9985, L500.4100, L100.0500 #### [facility] [address] [place], [address] PLT Normal 150-450 [facility] Comment on above: Order Comment: 303.2 Result Comment: COMP LETED 03/29 Performed By: #### L 501.9520, L500.4050, L501.9985, L500.4100, L100.0500 #### [facility] [address] [place], [address] RBC Normal 4.2-5.4 [facility] Comment on above: Order Comment: 303.2 Result Comment: COMP LETED 03/29 Performed By: #### L 501.9520, L500.4050, L501.9985, L500.4100, L100.0500 #### [facility] [address] [place], [address] RDW CV Normal 11.6-14.6 [facility] Comment on above: Order Comment: 303.2 Result Comment: COMP LETED 03/29 Performed By: #### L 501.9520, L500.4050, L501.9985, L500.4100, L100.0500 #### [facility] [address] [place], [address] RDW SD Normal 35.1-43.9 [facility] Comment on above: Order Comment: 303.2 Result Comment: COMP LETED 03/29 Performed By: #### L 501.9520, L500.4050, L501.9985, L500.4100, L100.0500 #### [facility] [address] [place], [address] WBC Normal 4.4-11.0 [facility] Comment on above: Order Comment: 303.2 Result Comment: COMP LETED 03/29 Performed By: #### L 501.9520, L500.4050, L501.9985, L500.4100, L100.0500 #### [facility] [address] [place], [address] Anion gap in Serum or Plasma Ordered By: Evi Guevara on 03-29-2025 Anion gap [Moles/Vol] 10 mmol/L 5-15 [facility] BUN/creatinine ratioOrdered By: Evi Guevara on 03-29-2025 Urea nitrogen/Creatinine [Mass ratio] 29.6 mg/mg High 10-20 [facility] Bilirubin, totalOrdered By: Evi Guevara on 03-29-2025 Bilirubin [Mass/Vol] 0.32 mg/dL 0.00-1.30 [facility] CBC-Complete Blood Cnt No Di ffon 03-29-2025 Erythrocyte distribution width (RBC) [Ratio] 13.2 % Normal 11.6-14.6 [facility] Comment on above: Performed By: #### L 501.9520, L500.4050, L501.9985, L500.4100, L100.0500 #### [facility] [address] [place], [address] Hematocrit (Bld) [Volume fraction] 38.4 % Normal 37-47 [facility] Comment on above: Performed By: #### L 501.9520, L500.4050, L501.9985, L500.4100, L100.0500 #### [facility] [address] [place], [address] Hemoglobin (Bld) [Mass/Vol] 13.0 g/dL Normal 12.0-15.0 [facility] Comment on above: Performed By: #### L 501.9520, L500.4050, L501.9985, L500.4100, L100.0500 #### [facility] [address] [place], [address] MCH (RBC) [Entitic mass] 32.9 pg High 27.0-32.0 [facility] Comment on above: Performed By: #### L 501.9520, L500.4050, L501.9985, L500.4100, L100.0500 #### [facility] [address] [place], [address] MCHC (RBC) [Mass/Vol] 33.9 g/dL Normal 32-36 [facility] Comment on above: Performed By: #### L 501.9520, L500.4050, L501.9985, L500.4100, L100.0500 #### [facility] [address] [place], [address] MCV (RBC) [Entitic vol] 97.2 fL Normal 81-99 [facility] Comment on above: Performed By: #### L 501.9520, L500.4050, L501.9985, L500.4100, L100.0500 #### [facility] [address] [place], [address] Platelet mean volume (Bld) [Entitic vol] 10.9 fL Normal 6.2-12.0 [facility] Comment on above: Performed By: #### L 501.9520, L500.4050, L501.9985, L500.4100, L100.0500 #### [facility] [address] [place], [address] Platelets (Bld) [#/Vol] 247 10*3/uL Normal 150-450 [facility] Comment on above: Performed By: #### L 501.9520, L500.4050, L501.9985, L500.4100, L100.0500 #### [facility] [address] [place], [address] RBC (Bld) [#/Vol] 3.95 10*6/uL Low 4.2-5.4 [facility] Comment on above: Performed By: #### L 501.9520, L500.4050, L501.9985, L500.4100, L100.0500 #### [facility] [address] [place], [address] RDW SD 46.8 fl High 35.1-43.9 [facility] Comment on above: Performed By: #### L 501.9520, L500.4050, L501.9985, L500.4100, L100.0500 #### [facility] [address] [place], [address] WBC (Bld) [#/Vol] 6.9 10*3/uL Normal 4.4-11.0 [facility] Comment on above: Performed By: #### L 501.9520, L500.4050, L501.9985, L500.4100, L100.0500 #### [facility] [address] [place], [address] Calculated very low density lipoprotein (VLDL) cholesterol measurementOrdered By: Evi Guevara on 03-29-2025 Calculated very low density lipoprotein (VLDL) cholesterol measurement 24 mg/dL 5-40 [facility] Carbon dioxide, total [Moles /volume] in Central venous bloodOrdered By: Evi Guevara on 03-29-2025 CO2 [Moles/Vol] 21.5 mmol/L 21.0-32.0 [facility] Chloride assayOrdered By: Ari Licea on 03-29-2025 Chloride [Moles/Vol] 106 mmol/L 98-108 [facility] Comprehensive Metabolic Prof ilon 03-29-2025 Albumin [Mass/Vol] 3.6 g/dL Normal 3.4-4.8 [facility] Comment on above: Performed By: #### L 501.9520, L500.4050, L501.9985, L500.4100, L100.0500 #### [facility] [address] [place] [place], [address] Albumin/Globulin [Mass ratio] 1.8 {ratio} Normal 0.9-2.4 [facility] Comment on above: Performed By: #### L 501.9520, L500.4050, L501.9985, L500.4100, L100.0500 #### [facility] [address] [place], [address] ALK PHOS 99 U/L Normal 35-104 [facility] Comment on above: Performed By: #### L 501.9520, L500.4050, L501.9985, L500.4100, L100.0500 #### [facility] [address] [place], [address] ALT [Catalytic activity/Vol] 15 U/L Normal <=34 [facility] Comment on above: Performed By: #### L 501.9520, L500.4050, L501.9985, L500.4100, L100.0500 #### [facility] [address] [place], [address] AST [Catalytic activity/Vol] 21 U/L Normal <=31 [facility] Comment on above: Performed By: #### L 501.9520, L500.4050, L501.9985, L500.4100, L100.0500 #### [facility] [address] [place], [address] Bilirubin [Mass/Vol] 0.32 mg/dL Normal 0.00-1.30 [facility] Comment on above: Performed By: #### L 501.9520, L500.4050, L501.9985, L500.4100, L100.0500 #### [facility] [address] [place], [address] BUN/CRE 29.6 RATIO High 10-20 [facility] Comment on above: Performed By: #### L 501.9520, L500.4050, L501.9985, L500.4100, L100.0500 #### [facility] [address] [place], [address] Calcium [Mass/Vol] 9.1 mg/dL Normal 7.6-11.0 [facility] Comment on above: Performed By: #### L 501.9520, L500.4050, L501.9985, L500.4100, L100.0500 #### [facility] [address] [place], [address] Chloride [Moles/Vol] 106 mmol/L Normal 98-108 [facility] Comment on above: Performed By: #### L 501.9520, L500.4050, L501.9985, L500.4100, L100.0500 #### [facility] [address] [place], [address] CO2 [Moles/Vol] 21.5 mmol/L Normal 21.0-32.0 [facility] Comment on above: Performed By: #### L 501.9520, L500.4050, L501.9985, L500.4100, L100.0500 #### [facility] [address] [place], [address] Creatinine [Mass/Vol] 1.43 mg/dL High 0.70-1.20 [facility] Comment on above: Performed By: #### L 501.9520, L500.4050, L501.9985, L500.4100, L100.0500 #### [facility] [address] [place], [address] GAP 10 Normal 5-15 [facility] Comment on above: Performed By: #### L 501.9520, L500.4050, L501.9985, L500.4100, L100.0500 #### [facility] [address] [place], [address] GFR/1.73 sq M.predicted among non-blacks MDRD (S/P/Bld) [Vol rate/Area] 37 mL/min/{1.73_m2} Low >60 [facility] Comment on above: Result Comment: mL/m in/1.73m2 CKD-EPI Creatinine Equation (2020) Performed By: #### L 501.9520, L500.4050, L501.9985, L500.4100, L100.0500 #### [facility] [address] [place], [address] Globulin (S) [Mass/Vol] 2.0 g/dL Low 2.2-4.2 [facility] Comment on above: Performed By: #### L 501.9520, L500.4050, L501.9985, L500.4100, L100.0500 #### [facility] [address] [place], [address] Glucose [Mass/Vol] 110 mg/dL High 70-99 [facility] Comment on above: Performed By: #### L 501.9520, L500.4050, L501.9985, L500.4100, L100.0500 #### [facility] [address] [place], [address] Potassium [Moles/Vol] 4.7 mmol/L Normal 3.3-5.1 [facility] Comment on above: Performed By: #### L 501.9520, L500.4050, L501.9985, L500.4100, L100.0500 #### [facility] [address] [place], [address] Sodium [Moles/Vol] 138 mmol/L Normal 133-145 [facility] Comment on above: Performed By: #### L 501.9520, L500.4050, L501.9985, L500.4100, L100.0500 #### [facility] [address] [place], [address] T PROT 5.6 g/dL Low 5.9-8.4 [facility] Comment on above: Performed By: #### L 501.9520, L500.4050, L501.9985, L500.4100, L100.0500 #### [facility] [address] [place], [address] Urea nitrogen [Mass/Vol] 42 mg/dL High 4-19 [facility] Comment on above: Performed By: #### L 501.9520, L500.4050, L501.9985, L500.4100, L100.0500 #### [facility] [address] [place], [address] Erythrocyte distribution wid th ratioOrdered By: Evi Guevara on 03-29-2025 Erythrocyte distribution width (RBC) [Ratio] 13.2 % 11.6-14.6 [facility] Erythrocyte distribution wid th standard deviationOrdered By: Evi Guevara on 03-29-2025 Erythrocyte distribution width (RBC) [Ratio] 46.8 fl High 35.1-43.9 [facility] Glomerular filtration rate ( GFR) estimation/1.73 sq m using serum, plasma, or whole bOrdered By: Evi Guevara on 03-29-2025 GFR/1.73 sq M.predicted among non-blacks MDRD (S/P/Bld) [Vol rate/Area] 37 mL/min/{1.73_m2} Low >60 [facility] Comment on above: mL/min/1.73m2 CKD-EP I Creatinine Equation (2020) Hematocrit Auto (Bld) [Volum e fraction]Ordered By: Evi Guevara on 03-29-2025 Hematocrit (Bld) [Volume fraction] 38.4 % 37-47 [facility] Hemoglobin A1con 03-29-2025 HbA1c (Bld) [Mass fraction] 5.4 % Normal <=5.6 [facility] Comment on above: Result Comment: Norm al < 5.7 % Prediabetic 5.7 - 6.4 % Diabetic >or= 6.5 % Please note range changes. Performed By: #### L 501.9520, L500.4050, L501.9985, L500.4100, L100.0500 #### [facility] [address] [place], [place], [address] Hemoglobin A1c percentageOrd ered By: Evi Guevara on 03-29-2025 HbA1c (Bld) [Mass fraction] 5.4 % <5.7 [facility] Comment on above: Normal < 5.7 % Predi abetic 5.7 - 6.4 % Diabetic >or= 6.5 % Please note range changes. Hemoglobin measurementOrdere d By: Evi Guevara on 03-29-2025 Hemoglobin (Bld) [Mass/Vol] 13.0 g/dL 12.0-15.0 [facility] LDL calc ser/plasOrdered By: Evi Guevara on 03-29-2025 Cholesterol in LDL [Mass/Vol] 93 mg/dL [facility] Comment on above: Fgqupqyjpe=683-580 m g/dL & Higher Ktsc=244 mg/dL or greaterFriedwald Equation for LDL-C Laboratory - Chemistry and C hemistry - challengeOrdered By: Evi Guevara on 03-29-2025 AST [Catalytic activity/Vol] 21 U/L <32 [facility] Lipid Profileon 03-29-2025 CHOL:HDL 4.23 Normal [facility] Comment on above: Performed By: #### L 501.9520, L500.4050, L501.9985, L500.4100, L100.0500 #### [facility] [address] [place], [address] Cholesterol [Mass/Vol] 153 mg/dL Normal <=200 [facility] Comment on above: Result Comment: Chol esterol level, Desirable <200 mg/dL Borderline high cholesterol 200-239 mg/dL High cholesterol >=240 mg/dL Recommendations of the NCEP Adult Treatment Panel for the following risk-cutoff thresholds for the [place] population. Performed By: #### L 501.9520, L500.4050, L501.9985, L500.4100, L100.0500 #### [facility] [address] [place], [address] Cholesterol in HDL [Mass/Vol] 36 mg/dL Low [facility] Comment on above: Result Comment: Sherly onal Cholesterol Education Program (NCEP) guidelines: <40 mg/dL: Low HDL-cholesterol (major risk factor for CHD) >= 60 mg/dL: High HDL-cholesterol (negative risk factor for CHD) HDL-cholesterol is affected by a number of factors, e.g. smoking, exercise, hormones, sex and age. Performed By: #### L 501.9520, L500.4050, L501.9985, L500.4100, L100.0500 #### [facility] [address] [place], [address] Cholesterol in LDL [Mass/Vol] 93 mg/dL Normal [facility] Comment on above: Result Comment: Bord kwikuq=026-075 mg/dL Higher Zqus=406 mg/dL or greater Friedwald Equation for LDL-C Performed By: #### L 501.9520, L500.4050, L501.9985, L500.4100, L100.0500 #### [facility] [address] [place], [address] Cholesterol in VLDL [Mass/Vol] 24 mg/dL Normal 5-40 [facility] Comment on above: Performed By: #### L 501.9520, L500.4050, L501.9985, L500.4100, L100.0500 #### [facility] [address] [place], [address] Triglyceride [Mass/Vol] 119 mg/dL Normal [facility] Comment on above: Result Comment: The drugs N-Acetylcysteine and Metamizole may falsely depress this assay. Normal range: <150 mg/dL Borderline High: 150-199 mg/dL High: 200-499 mg/dL Very High: >500 mg/dL Performed By: #### L 501.9520, L500.4050, L501.9985, L500.4100, L100.0500 #### [facility] [address] [place], [address] MCV (mean corpuscular volume ) determinationOrdered By: Evi Guevara on 03-29-2025 MCV (RBC) [Entitic vol] 97.2 fL 81-99 [facility] Mean corpuscular hemoglobin (MCH) determinationOrdered By: Evi Guevara on 03-29-2025 MCH (RBC) [Entitic mass] 32.9 pg High 27.0-32.0 [facility] Mean corpuscular hemoglobin concentration (MCHC) determinationOrdered By: Evi Guevara on 03-29-2025 MCHC (RBC) [Mass/Vol] 33.9 g/dL 32-36 [facility] Mean platelet volume determi nationOrdered By: Evi Guevara on 03-29-2025 Platelet mean volume (Bld) [Entitic vol] 10.9 fL 6.2-12.0 [facility] Platelet countOrdered By: Ari Licea on 03-29-2025 Platelets (Bld) [#/Vol] 247 10*3/uL 150-450 [facility] Potassium measurement (mass/ volume)Ordered By: Evi Guevara on 03-29-2025 Potassium (Unsp spec) [Mass/Vol] 4.7 mmol/L 3.3-5.1 [facility] RBC Auto (Bld) [#/Vol]Ordere d By: Evi Guevara on 03-29-2025 RBC (Bld) [#/Vol] 3.95 10*6/uL Low 4.2-5.4 [facility] Screening total cholesterol/ high density lipoprotein (HDL) cholesterol ratioOrdered By: Evi Guevara on 03-29-2025 Cholesterol.total/Yesi sterol in HDL [Mass ratio] 4.23 {ratio} [facility] Serum creatinine measurement (mass/volume)Ordered By: Evi Guevara on 03-29-2025 Creatinine [Mass/Vol] 1.43 mg/dL High 0.70-1.20 [facility] Serum globulin measurementOr dered By: Evi Guevara on 03-29-2025 Globulin (S) [Mass/Vol] 2.0 g/dL Low 2.2-4.2 [facility] Serum glucose measurement (m ass/volume)Ordered By: Evi Guevara on 03-29-2025 Glucose [Mass/Vol] 110 mg/dL High 70-99 [facility] Serum or plasma alanine barajas otransferase (ALT) measurementOrdered By: Evi Guevara on 03-29-2025 ALT [Catalytic activity/Vol] 15 U/L <35 [facility] Serum or plasma albumin jeffrey urement (mass/volume)Ordered By: Evi Guevara on 03-29-2025 Albumin [Mass/Vol] 3.6 g/dL 3.4-4.8 [facility] Serum or plasma albumin/glob ulin mass ratioOrdered By: Evi Guevara on 03-29-2025 Albumin/Globulin [Mass ratio] 1.8 {ratio} 0.9-2.4 [facility] Serum or plasma alkaline aisha sphatase measurementOrdered By: Evi Guevara on 03-29-2025 ALP [Catalytic activity/Vol] 99 U/L 35-104 [facility] Serum or plasma calcium jeffrey urement (mass/volume)Ordered By: Evi Guevara on 03-29-2025 Calcium [Mass/Vol] 9.1 mg/dL 7.6-11.0 [facility] Serum or plasma cholesterol in HDL measurement (mass/volume)Ordered By: Evi Guevara on 03-29-2025 Cholesterol in HDL [Mass/Vol] 36 mg/dL Low >40 [facility] Comment on above: National Cholesterol Education Program (NCEP) guidelines:<40 mg/dL: Low HDL-cholesterol (major risk factor for CHD)>= 60 mg/dL: High HDL-cholesterol (negative risk factor for CHD)HDL-cholesterol is affected by a number of factors, e.g. smoking, exercise, hormones, sex and age. Serum or plasma cholesterol measurement (mass/volume)Ordered By: Evi Guevara on 03-29-2025 Cholesterol [Mass/Vol] 153 mg/dL <201 [facility] Comment on above: Cholesterol level, D esirable <200 mg/dLBorderline high cholesterol 200-239 mg/dLHigh cholesterol >=240 mg/dLRecommendations of the NCEP Adult Treatment Panel for the following risk-cutoff thresholds for the [place] population. Serum or plasma urea nitroge n measurement (mass/volume)Ordered By: Evi Guevara on 03-29-2025 Urea nitrogen [Mass/Vol] 42 mg/dL High 4-19 [facility] Sodium levelOrdered By: Christian Guevara on 03-29-2025 Sodium [Moles/Vol] 138 mmol/L 133-145 [facility] TSH DL <= 0.005 mIU/L QnOrde red By: Evi Guevara on 03-29-2025 TSH Qn 2.610 uIU/mL 0.300-4.200 [facility] Thyroid Stim Hormone (TSH)on 03-29-2025 TSH 2.610 uIU/mL Normal 0.300-4.200 [facility] Comment on above: Performed By: #### L 501.9520, L500.4050, L501.9985, L500.4100, L100.0500 #### [facility] [address] [place], [address] Total proteinOrdered By: Mark Guevara on 03-29-2025 Protein [Mass/Vol] 5.6 g/dL Low 5.9-8.4 [facility] Triglycerides measurementOrd ered By: Evi Guevara on 03-29-2025 Triglyceride [Mass/Vol] 119 mg/dL <199 [facility] Comment on above: The drugs N-Acetylcy steine and Metamizole may falsely depress this assay. Normal range: <150 mg/dLBorderline High: 150-199 mg/dLHigh: 200-499 mg/dLVery High: >500 mg/dL White blood cell (WBC) count Ordered By: Evi Guevara on 03-29-2025 WBC (Bld) [#/Vol] 6.9 10*3/uL 4.4-11.0 [facility] Anion gap in Serum or Plasma Ordered By: Evi Guevara on 03-01-2025 Anion gap [Moles/Vol] 10 mmol/L 5-15 [facility] BUN/creatinine ratioOrdered By: Evi Guevara on 03-01-2025 Urea nitrogen/Creatinine [Mass ratio] 23.1 mg/mg High 10- [facility] Basic Metabolic Profile (BMP )on 03-01-2025 BUN/CRE 23.1 RATIO High 04-23 [facility] Comment on above: Order Comment: 303.2 Performed By: #### L 501.9520, L500.4050, L501.9985, L500.4100, L100.0500 #### [facility] [address] [place], [address] Calcium [Mass/Vol] 9.0 mg/dL Normal 7.6-11.0 [facility] Comment on above: Order Comment: 303.2 Performed By: #### L 501.9520, L500.4050, L501.9985, L500.4100, L100.0500 #### [facility] [address] [place], [address] Chloride [Moles/Vol] 105 mmol/L Normal 98-108 [facility] Comment on above: Order Comment: 303.2 Performed By: #### L 501.9520, L500.4050, L501.9985, L500.4100, L100.0500 #### [facility] [address] [place], [address] CO2 [Moles/Vol] 21.5 mmol/L Normal 21.0-32.0 [facility] Comment on above: Order Comment: 303.2 Performed By: #### L 501.9520, L500.4050, L501.9985, L500.4100, L100.0500 #### [facility] [address] [place], [address] Creatinine [Mass/Vol] 1.68 mg/dL High 0.70-1.20 [facility] Comment on above: Order Comment: 303.2 Performed By: #### L [id number], L500.4050, L501.9985, L500.4100, L100.0500 #### [facility] [address] [place], [address] GAP 10 Normal 5-15 [facility] Comment on above: Order Comment: 303.2 Performed By: #### L 501.9520, L500.4050, L501.9985, L500.4100, L100.0500 #### [facility] [address] [place], [address] GFR/1.73 sq M.predicted among non-blacks MDRD (S/P/Bld) [Vol rate/Area] 31 mL/min/{1.73_m2} Low >60 [facility] Comment on above: Order Comment: 303.2 Result Comment: mL/m in/1.73m2 CKD-EPI Creatinine Equation (2020) Performed By: #### L 501.9520, L500.4050, L501.9985, L500.4100, L100.0500 #### [facility] [address] [place], [address] Glucose [Mass/Vol] 118 mg/dL High 70-99 [facility] Comment on above: Order Comment: 303.2 Performed By: #### L 501.9520, L500.4050, L501.9985, L500.4100, L100.0500 #### [facility] [address] [place], [address] Potassium [Moles/Vol] 4.6 mmol/L Normal 3.3-5.1 [facility] Comment on above: Order Comment: 303.2 Performed By: #### L 501.9520, L500.4050, L501.9985, L500.4100, L100.0500 #### [facility] [address] [place], [address] Sodium [Moles/Vol] 137 mmol/L Normal 133-145 [facility] Comment on above: Order Comment: 303.2 Performed By: #### L 501.9520, L500.4050, L501.9985, L500.4100, L100.0500 #### [facility] [address] [place], [address] Urea nitrogen [Mass/Vol] 39 mg/dL High 4-19 [facility] Comment on above: Order Comment: 303.2 Performed By: #### L 501.9520, L500.4050, L501.9985, L500.4100, L100.0500 #### [facility] [address] [place], [address] CBC-Complete Blood Cnt No Di ffon 03-01-2025 Erythrocyte distribution width (RBC) [Ratio] 13.7 % Normal 11.6-14.6 [facility] Comment on above: Order Comment: 303.2 Performed By: #### L 501.9520, L500.4050, L501.9985, L500.4100, L100.0500 #### [facility] [address] [place], [address] Hematocrit (Bld) [Volume fraction] 36.3 % Low 37-47 [facility] Comment on above: Order Comment: 303.2 Performed By: #### L 501.9520, L500.4050, L501.9985, L500.4100, L100.0500 #### [facility] [address] [place], [address] Hemoglobin (Bld) [Mass/Vol] 12.3 g/dL Normal 12.0-15.0 [facility] Comment on above: Order Comment: 303.2 Performed By: #### L 501.9520, L500.4050, L501.9985, L500.4100, L100.0500 #### [facility] [address] [place], [address] MCH (RBC) [Entitic mass] 32.7 pg High 27.0-32.0 [facility] Comment on above: Order Comment: 303.2 Performed By: #### L 501.9520, L500.4050, L501.9985, L500.4100, L100.0500 #### [facility] [address] [place], [address] MCHC (RBC) [Mass/Vol] 33.9 g/dL Normal 32-36 [facility] Comment on above: Order Comment: 303.2 Performed By: #### L 501.9520, L500.4050, L501.9985, L500.4100, L100.0500 #### [facility] [address] [place], [address] MCV (RBC) [Entitic vol] 96.5 fL Normal 81-99 [facility] Comment on above: Order Comment: 303.2 Performed By: #### L 501.9520, L500.4050, L501.9985, L500.4100, L100.0500 #### [facility] [address] [place], [address] Platelet mean volume (Bld) [Entitic vol] 11.3 fL Normal 6.2-12.0 [facility] Comment on above: Order Comment: 303.2 Performed By: #### L 501.9520, L500.4050, L501.9985, L500.4100, L100.0500 #### [facility] [address] [place], [address] Platelets (Bld) [#/Vol] 272 10*3/uL Normal 150-450 [facility] Comment on above: Order Comment: 303.2 Performed By: #### L 501.9520, L500.4050, L501.9985, L500.4100, L100.0500 #### [facility] [address] [place], [address] RBC (Bld) [#/Vol] 3.76 10*6/uL Low 4.2-5.4 [facility] Comment on above: Order Comment: 303.2 Performed By: #### L 501.9520, L500.4050, L501.9985, L500.4100, L100.0500 #### [facility] [address] [place], [address] RDW SD 48.9 fl High 35.1-43.9 [facility] Comment on above: Order Comment: 303.2 Performed By: #### L 501.9520, L500.4050, L501.9985, L500.4100, L100.0500 #### [facility] [address] [place], [place], [id number] (320) WBC (Bld) [#/Vol] 9.2 10*3/uL Normal 4.4-11.0 [facility] Comment on above: Order Comment: 303.2 Performed By: #### L 501.9520, L500.4050, L501.9985, L500.4100, L100.0500 #### [facility] [address] [facility] [address] [place], [place], [id number] Carbon dioxide, total [Moles /volume] in Central venous bloodOrdered By: Evi Guevara on 03-01-2025 CO2 [Moles/Vol] 21.5 mmol/L 21.0-32.0 [facility] Chloride assayOrdered By: Ari Licea on 03-01-2025 Chloride [Moles/Vol] 105 mmol/L 98-108 [facility] Erythrocyte distribution wid th ratioOrdered By: Evi Guevara on 03-01-2025 Erythrocyte distribution width (RBC) [Ratio] 13.7 % 11.6-14.6 [facility] Erythrocyte distribution wid th standard deviationOrdered By: Evi Guevara on 03-01-2025 Erythrocyte distribution width (RBC) [Ratio] 48.9 fl High 35.1-43.9 [facility] Glomerular filtration rate ( GFR) estimation/1.73 sq m using serum, plasma, or whole bOrdered By: Evi Guevara on 03-01-2025 GFR/1.73 sq M.predicted among non-blacks MDRD (S/P/Bld) [Vol rate/Area] 31 mL/min/{1.73_m2} Low >60 [facility] Comment on above: mL/min/1.73m2 CKD-EP I Creatinine Equation (2020) Hematocrit Auto (Bld) [Volum e fraction]Ordered By: Evi Guevara on 03-01-2025 Hematocrit (Bld) [Volume fraction] 36.3 % Low 37-47 [facility] Hemoglobin measurementOrdere d By: Evi Guevara on 03-01-2025 Hemoglobin (Bld) [Mass/Vol] 12.3 g/dL 12.0-15.0 [facility] MCV (mean corpuscular volume ) determinationOrdered By: Evi Guevara on 03-01-2025 MCV (RBC) [Entitic vol] 96.5 fL 81-99 [facility] Mean corpuscular hemoglobin (MCH) determinationOrdered By: Evi Guevara on 03-01-2025 MCH (RBC) [Entitic mass] 32.7 pg High 27.0-32.0 [facility] Mean corpuscular hemoglobin concentration (MCHC) determinationOrdered By: Evi Guevara on 03-01-2025 MCHC (RBC) [Mass/Vol] 33.9 g/dL 32-36 [facility] Mean platelet volume determi nationOrdered By: Evi Guevara on 03-01-2025 Platelet mean volume (Bld) [Entitic vol] 11.3 fL 6.2-12.0 [facility] Platelet countOrdered By: Ari Licea on 03-01-2025 Platelets (Bld) [#/Vol] 272 10*3/uL 150-450 [facility] Potassium measurement (mass/ volume)Ordered By: Evi Guevara on 03-01-2025 Potassium (Unsp spec) [Mass/Vol] 4.6 mmol/L 3.3-5.1 [facility] RBC Auto (Bld) [#/Vol]Ordere d By: Evi Guevara on 03-01-2025 RBC (Bld) [#/Vol] 3.76 10*6/uL Low 4.2-5.4 [facility] Serum creatinine measurement (mass/volume)Ordered By: Evi Guevara on 03-01-2025 Creatinine [Mass/Vol] 1.68 mg/dL High 0.70-1.20 [facility] Serum glucose measurement (m ass/volume)Ordered By: Evi Guevara on 03-01-2025 Glucose [Mass/Vol] 118 mg/dL High 70-99 [facility] Serum or plasma calcium jeffrey urement (mass/volume)Ordered By: Evi Guevara on 03-01-2025 Calcium [Mass/Vol] 9.0 mg/dL 7.6-11.0 [facility] Serum or plasma urea nitroge n measurement (mass/volume)Ordered By: Evi Guevara on 03-01-2025 Urea nitrogen [Mass/Vol] 39 mg/dL High 4-19 [facility] Sodium levelOrdered By: Christian Guevara on 03-01-2025 Sodium [Moles/Vol] 137 mmol/L 133-145 [facility] White blood cell (WBC) count Ordered By: Evi Guevara on 03-01-2025 WBC (Bld) [#/Vol] 9.2 10*3/uL 4.4-11.0 [facility] Urine Cultureon 02-25-2025 URC Mixed Gram Pos Gram Neg Org [place] Count 25,000-50,000 [facility] Mixed contaminants. Submit a new specimen if indicated. Normal [facility] Comment on above: Performed By: #### L 400.0001, M100.0 #### [facility] [address] [place], [address] Urinalysis, Completeon 02-23 EPI,SQUAMOUS 0-5 SEEN Normal 5-10 [facility] Comment on above: Order Comment: GRETCHEN TER SPECIMEN Performed By: #### L 400.0001, M100.2200 #### [facility] [address] [place], [address] BACTERIA 0 SEEN Normal None Seen [facility] Comment on above: Order Comment: GRETCHEN TER SPECIMEN Performed By: #### L 400.0001, M100.2200 #### [facility] [address] [place], [address] Mucus Ql (Urine sed) 0 SEEN Normal [facility] Comment on above: Order Comment: GRETCHEN TER SPECIMEN Performed By: #### L 400.0001, M100.2200 #### [facility] [address] [place], [address] RBC 0 SEEN Normal 0-5 [facility] Comment on above: Order Comment: GRETCHEN TER SPECIMEN Performed By: #### L 400.0001, M1.2199 #### [facility] [address] [place], [address] WBC 0 SEEN Normal 0-5 [facility] Comment on above: Order Comment: GRETCHEN TER SPECIMEN Performed By: #### L 400.0001, M100.0 #### [facility] [address] [place], [address] Bilirubin Test strip Ql (U)O rdered By: Evi Guevara on 02-22-2025 Bilirubin Ql (U) Negative Negative [facility] Ketones Test strip Ql (U)Ord ered By: Evi Guevara on 02-22-2025 Ketones Ql (U) Negative Negative [facility] Microscopic analysis of urin e for red blood cells (RBC)Ordered By: Evi Guevara on 02-22-2025 Microscopic analysis of urine for red blood cells (RBC) 0 SEEN /hpf 0-5 [facility] Mucus LM Ql (Urine sed)Order ed By: Evi Guevara on 02-22-2025 Mucus Ql (Urine sed) 0 SEEN /hpf [facility] Nitrite Test strip Ql (U)Ord ered By: Evi Guevara on 02-22-2025 Nitrite Ql (U) Negative Negative [facility] Protein Test strip Ql (U)Ord ered By: Evi Guevara on 02-22-2025 Protein Ql (U) 15 mg/dl High Negative [facility] Squamous epithelial cells de tection in urine sediment by light microscopyOrdered By: Evi Guevara on 02-22-2025 Epithelial cells.squamous LM Ql (Urine sed) 0-5 SEEN /hpf 5-10 [facility] Urine clarityOrdered By: Mark Guevara on 02-22-2025 Clarity (U) Clear Clear [facility] Urine color determinationOrd ered By: Evi Guevara on 02-22-2025 Color (U) Yellow Yellow [facility] Urine cultureOrdered By: Mark Guevara on 02-22-2025 Bacteria identified Cx Nom (U) Mixed Gram Pos & Gram Neg Org Abnormal [facility] Urine glucose detectionOrder ed By: Evi Guevara on 02-22-2025 Glucose Ql (U) Normal mg/dl Normal [facility] Urine leukocyte esterase det ection by dipstickOrdered By: Evi Guevara on 02-22-2025 Leukocyte esterase Test strip Ql (U) Negative Negative [facility] Urine pHOrdered By: Evi gillette on 02-22-2025 pH (U) 6.0 [pH] 5.0 - 8.0 [facility] Urine sediment bacteria coun t by microscopy (number/high power field)Ordered By: Evi Guevara on 02-22-2025 Bacteria LM.HPF (Urine sed) [#/Area] 0 /[HPF] None Seen [facility] Urine specific gravity measu rementOrdered By: Evi Guevara on 02-22-2025 Specific gravity (U) [Rel density] 1.015 1.002-1.030 [facility] Urine urobilinogen measureme ntOrdered By: Evi Guevara on 02-22-2025 Urobilinogen Ql (U) Normal mg/dl Normal [facility] White blood cell countOrdere d By: Evi Guevara on 02-22-2025 White blood cell count 0 SEEN /hpf 0-5 [facility] CNOVon 02-08-2025 CNOV Office Visit ([facility] ) CARLINE VILLARREAL ([id number]) 1945 F Date Time Provider Department 02/08/25 2:00 PM ANGELINA TRUJILLO [facility] During your visit today, we recorded the following information about you: Pulse Blood pressure 68/minute 117/78 Angelina Trujillo PA-C 02/08/2025 2:41 PM Signed [facility] Follow up CC: Headache [...] of worsening headaches. Patient lives at a half-way. Family notes that she has some baseline [...] for HDEZ on 08/18/24, lives in a half-way. Hx limited. Daily headaches with migraine features. [...] very limited. Patient does visit with a tile finisher from the facility but not with any family. Memory is significantly limiting history. Does report that the Nurtec is very helpful when she takes it, does not believe she is running out every month. [place] [employer] does believe that she has a least [...] oncologic, endocr (more content not included)... Normal [facility] Urine Cultureon 02-08-2025 URC Pending Mixed Gram Pos Gram Neg Org [place] Count 80,000-100,000 [facility] Mixed contaminants. Submit a new specimen if indicated. Normal [facility] Comment on above: Performed By: #### L 501.8495, L500.4050, L501.9985, L500.4100, L100.0500 #### [facility] [address] [place], [address] Bilirubin Test strip Ql (U)O rdered By: Evi Guevara on 02-06-2025 Bilirubin Ql (U) Negative Negative [facility] Ketones Test strip Ql (U)Ord ered By: Evi Guevara on 02-06-2025 Ketones Ql (U) Negative Negative [facility] Microscopic analysis of urin e for red blood cells (RBC)Ordered By: Evi Guevara on 02-06-2025 Microscopic analysis of urine for red blood cells (RBC) 0 SEEN /hpf 0-5 [facility] [facility] Muc[facility] LM Ql (Urine sed)Order ed By: Evi Guevara on 02-06-2025 Mucus Ql (Urine sed) 0 SEEN /hpf [facility] Nitrite Test strip Ql (U)Ord ered By: Evi Guevara on 02-06-2025 Nitrite Ql (U) Negative Negative [facility] Protein Test strip Ql (U)Ord ered By: Evi Guevara on 02-06-2025 Protein Ql (U) Negative Negative [facility] Squamous epithelial cells de tection in urine sediment by light microscopyOrdered By: Evi Guevara on 02-06-2025 Epithelial cells.squamous LM Ql (Urine sed) 0-5 SEEN /hpf 5-10 [facility] Urinalysis, Completeon 02-06 EPI,SQUAMOUS 0-5 SEEN Normal - [facility] Comment on above: Order Comment: 303.2 Performed By: #### L 501.9520, L500.4050, L501.9985, L500.4100, L100.0500 #### [facility] [address] [place], [address] BACTERIA 0 SEEN Normal None Seen [facility] Comment on above: Order Comment: 303.2 Performed By: #### L 501.9520, L500.4050, L501.9985, L500.4100, L100.0500 #### [facility] [address] [place], [address] Mucus Ql (Urine sed) 0 SEEN Normal [facility] Comment on above: Order Comment: 303.2 Performed By: #### L 501.9520, L500.4050, L501.9985, L500.4100, L100.0500 #### [facility] [address] [place], [address] RBC 0 SEEN Normal 0-5 [facility] Comment on above: Order Comment: 303.2 Performed By: #### L 501.9520, L500.4050, L501.9985, L500.4100, L100.0500 #### [facility] [address] [place], [address] WBC 0 SEEN Normal 0-5 [facility] Comment on above: Order Comment: 303.2 Performed By: #### L 501.9520, L500.4050, L501.9985, L500.4100, L100.0500 #### [facility] [address] [place], [address] Urine clarityOrdered By: Mark Guevara on 02-06-2025 Clarity (U) Clear Clear [facility] Urine color determinationOrd ered By: Evi Guevara on 02-06-2025 Color (U) Yellow Yellow [facility] Urine cultureOrdered By: Mark Guevara on 02-06-2025 Bacteria identified Cx Nom (U) Mixed Gram Pos & Gram Neg Org Abnormal [facility] Urine glucose detectionOrder ed By: Evi Guevara on 02-06-2025 Glucose Ql (U) Normal mg/dl Normal [facility] Urine leukocyte esterase det ection by dipstickOrdered By: Evi Guevara on 02-06-2025 Leukocyte esterase Test strip Ql (U) Negative Negative [facility] Urine pHOrdered By: Evi gillette on 02-06-2025 pH (U) 8.0 [pH] 5.0 - 8.0 [facility] Urine sediment bacteria coun t by microscopy (number/high power field)Ordered By: Evi Guevara on 02-06-2025 Bacteria LM.HPF (Urine sed) [#/Area] 0 /[HPF] None Seen [facility] Urine specific gravity measu rementOrdered By: Evi Guevara on 02-06-2025 Specific gravity (U) [Rel density] 1.010 1.002-1.030 [facility] Urine urobilinogen measureme ntOrdered By: Evi Guevara on 02-06-2025 Urobilinogen Ql (U) Normal mg/dl Normal [facility] White blood cell countOrdere d By: Evi Guevara on 02-06-2025 White blood cell count 0 SEEN /hpf 0-5 [facility] Urine Cultureon 12-23-2024 [facility]RC Copy of report sent to Infection Control Printer [id number] 12/23/24 1031 AGUILAR. Urine Culture Urine Culture ESBL Escherichia coli [place] Count >100,000 MARKER ESBL producing OrganismA MARKER [...] S Tobramycin Islt THI <=1 S Normal [facility] Comment on above: Performed By: #### L 501.9520, L500.4050, L501.9985, L500.4100, L100.0500 #### [facility] [address] [place], [address] Urinalysis, Completeon 12-19 RBC 0-5 SEEN Normal 0-5 [facility] Comment on above: Order Comment: 303.2 Performed By: #### L 501.9520, L500.4050, L501.9985, L500.4100, L100.0500 #### [facility] [address] [place], [address] BACTERIA 2+ /hpf Normal None Seen [facility] Comment on above: Order Comment: 303.2 Performed By: #### L 501.9520, L500.4050, L501.9985, L500.4100, L100.0500 #### [facility] [address] [place], [address] WBC 0-5 SEEN Normal 0-5 [facility] Comment on above: Order Comment: 303.2 Performed By: #### L 501.9520, L500.4050, L501.9985, L500.4100, L100.0500 #### [facility] [address] [place], [address] EPI,SQUAMOUS 0 SEEN Normal 5-10 [facility] Comment on above: Order Comment: 303.2 Performed By: #### L 501.9520, L500.4050, L501.9985, L500.4100, L100.0500 #### [facility] [address] [place], [address] Mucus Ql (Urine sed) 0 SEEN Normal [facility] Comment on above: Order Comment: 303.2 Performed By: #### L 501.9520, L500.4050, L501.9985, L500.4100, L100.0500 #### [facility] [address] [place], [address] CNPJeannie 12-12-2024 CNPN Telephone (4CQ) CARLINE VILLARREAL ([id number]) 1945 F Date Time Provider Department 12/12/24 ANGELINA TRUJILLO 4CQ During your visit today, we recorded the following information about you: Safia Frankel 12/12/2024 2:20 PM Signed [facility] called in stating Prior to Glorias previous hospitalization she was on plavix. When she returned she was not on it any more. Wanting Ronnie to review and advise to see if she should still be taking it. Also asking if there is an alternative Neurotec as it is costly. Please call [phone] please ask for [address] [place] Nurse Angelina Harley, RN 12/13/2024 4:[address] [facility]. Nurse states patient was in the hospital recently and the patient was taken off Cymbalta and the gabapentin was decreased back to 300 mg twice a day. They increased her hydralazine and added blood pressure medications. Nursing is asking if there can be better alternatives to preventing the migraines instead of treating them with Nurtec due to cost. Advised nursing at the [facility] we will have to get her records from the hospital and ask neurology to review. Angelina Harley, RN 12/13/2024 4:25 PM Signed Updated care everywhere, able to pull in hospitalization records. Is neurology able to review and advise the nursing staff questions? Would you like more records from [place] first? Melonie Isaac O[facility] 12/14/2024 3:36 PM [...] Status:Closed by MELONIE ISAAC on 12/14/24 Normal [facility] 36on 12-04-2024 36 Niya saw patient fo r an office visit today, She would like her to follow up with dr. Hinton in 6 weeks (around 01/15) Patient would like to do a MyChart video visit if allowed. Also the number listed is for the half-way patient is staying at, please call that number ( [facility]). Can you please assist with scheduling. Thank you Normal [facility] Office Visiton 12-04-2024 Follow-up visit [id number] Iman Villarreal 1945 F [facility], [facility] Provider Department Center 12/04/2024 [id number] None No family history on file Level of Service:85247 [facility] OFFICE/OUTPATIENT ESTABLISHED MOD MDM 30 MIN Reason for Visit and Comments: Hospital Follow-up [832] Congestive Heart Failure [127] Atrial Fibrillation [80] Normal [facility] Progress Noteon 12-04-2024 Progress Note [facility] - [address] [place] [id number] Dept: [phone] Dept Visit type: Established : 1945 Reason [...] versus Takotsubo cardiomyopathy) She was admitted to [facility] November 2024 with shortness of breath. proBNP [...] Cuff Size: Adult Pulse: 78 Height: 5' 5" (1.651 m) Physical Exam Vitals reviewed. Constitutional: [...] No m (more content not included)... Normal [facility] Progress Note Baseline creatinine 1.2-1.4. Peak creatinine 1.65 and did improve during her hospitalization. -Would continue to monitor Normal [facility] Progress Note Elevated high-sensitivity troponin of 12-1 24. 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 No anginal symptoms. Not a candidate for invasive evaluation due to debility and dementia. -No further workup currently needed Normal [facility] Progress Note Noted to have 2 episodes of nonsustained A-fib while hospitalized. She was not placed on OAC due to low A-fib burden, dementia and debility. Remains in sinus rhythm today. -Continue Toprol 100 mg p.o. daily Normal [facility] Progress Note Goal less than 130/8 0. Controlled. -Continue Toprol 100 mg p.o. daily -Continue hydralazine 100 mg p.o. 3 times daily -Continue Imdur 30 mg p.o. daily - Continue hydrochlorothiazide 25 mg p.o. daily -Continue spironolactone 25 mg p.o. daily Normal [facility] Progress Note HFrEF 2/2 ischemic versus Takotsubo [...] visit) -Not currently requiring diuretic therapy Normal [facility] CBC-Complete Blood Cnt No Di ffon 11-29-2024 Erythrocyte distribution width (RBC) [Ratio] 14.9 % High 11.6-14.6 [facility] Comment on above: Order Comment: 303.2 Performed By: #### L 501.9520, L500.4050, L501.9985, L500.4100, L100.0500 #### [facility] [address] [place], [address] Hematocrit (Bld) [Volume fraction] 37.9 % Normal 37-47 [facility] Comment on above: Order Comment: 303.2 Performed By: #### L 501.9520, L500.4050, L501.9985, L500.4100, L100.0500 #### [facility] [address] [place], [address] Hemoglobin (Bld) [Mass/Vol] 12.3 g/dL Normal 12.0-15.0 [facility] Comment on above: Order Comment: 303.2 Performed By: #### L 501.9520, L500.4050, L501.9985, L500.4100, L100.0500 #### [facility] [address] [place], [address] MCH (RBC) [Entitic mass] 32.6 pg High 27.0-32.0 [facility] Comment on above: Order Comment: 303.2 Performed By: #### L 501.9520, L500.4050, L501.9985, L500.4100, L100.0500 #### [facility] [address] [place], [address] MCHC (RBC) [Mass/Vol] 32.5 g/dL Normal 32-36 [facility] Comment on above: Order Comment: 303.2 Performed By: #### L 501.9520, L500.4050, L501.9985, L500.4100, L100.0500 #### [facility] [address] [place], [address] MCV (RBC) [Entitic vol] 100.5 fL High 81-99 [facility] Comment on above: Order Comment: 303.2 Performed By: #### L 501.9520, L500.4050, L501.9985, L500.4100, L100.0500 #### [facility] [address] [place], [address] Platelet mean volume (Bld) [Entitic vol] 11.3 fL Normal 6.2-12.0 [facility] Comment on above: Order Comment: 303.2 Performed By: #### L 501.9520, L500.4050, L501.9985, L500.4100, L100.0500 #### [facility] [address] [place], [address] Platelets (Bld) [#/Vol] 232 10*3/uL Normal 150-450 [facility] Comment on above: Order Comment: 303.2 Performed By: #### L 501.9520, L500.4050, L501.9985, L500.4100, L100.0500 #### [facility] [address] [place], [address] RBC (Bld) [#/Vol] 3.77 10*6/uL Low 4.2-5.4 [facility] Comment on above: Order Comment: 303.2 Performed By: #### L 501.9520, L500.4050, L501.9985, L500.4100, L100.0500 #### [facility] [address] [place], [address] RDW SD 54.6 fl High 35.1-43.9 [facility] Comment on above: Order Comment: 303.2 Performed By: #### L 501.9520, L500.4050, L501.9985, L500.4100, L100.0500 #### [facility] [address] [place], [address] WBC (Bld) [#/Vol] 6.6 10*3/uL Normal 4.4-11.0 [facility] Comment on above: Order Comment: 303.2 Performed By: #### L 501.9520, L500.4050, L501.9985, L500.4100, L100.0500 #### [facility] [address] [place], [address] Comprehensive Metabolic Prof [facility] 11-29-2024 Albumin [Mass/Vol] 3.6 g/dL Normal 3.4-4.8 [facility] Comment on above: Order Comment: 303.2 Performed By: #### L 501.9520, L500.4050, L501.9985, L500.4100, L100.0500 #### [facility] [address] [place], [address] Albumin/Globulin [Mass ratio] 1.5 {ratio} Normal 0.9-2.4 [facility] Comment on above: Order Comment: 303.2 Performed By: #### L 501.9520, L500.4050, L501.9985, L500.4100, L100.0500 #### [facility] [address] [place], [address] ALK PHOS 89 U/L Normal 35-104 [facility] Comment on above: Order Comment: 303.2 Performed By: #### L 501.9520, L500.4050, L501.9985, L500.4100, L100.0500 #### [facility] [address] [place], [address] ALT [Catalytic activity/Vol] 32 U/L Normal <=34 [facility] Comment on above: Order Comment: 303.2 Performed By: #### L 501.9520, L500.4050, L501.9985, L500.4100, L100.0500 #### [facility] [address] [place], [address] AST [Catalytic activity/Vol] 29 U/L Normal <=31 [facility] Comment on above: Order Comment: 303.2 Performed By: #### L 501.9520, L500.4050, L501.9985, L500.4100, L100.0500 #### [facility] [address] [place], [address] Bilirubin [Mass/Vol] 0.39 mg/dL Normal 0.00-1.30 [facility] Comment on above: Order Comment: 303.2 Performed By: #### L 501.9520, L500.4050, L501.9985, L500.4100, L100.0500 #### [facility] [address] [place], [address] BUN/CRE 20.3 RATIO High 10-20 [facility] Comment on above: Order Comment: 303.2 Performed By: #### L 501.9520, L500.4050, L501.9985, L500.4100, L100.0500 #### [facility] [address] [place], [address] Calcium [Mass/Vol] 9.3 mg/dL Normal 7.6-11.0 [facility] Comment on above: Order Comment: 303.2 Performed By: #### L 501.9520, L500.4050, L501.9985, L500.4100, L100.0500 #### [facility] [address] [place], [address] Chloride [Moles/Vol] 108 mmol/L Normal 98-108 [facility] Comment on above: Order Comment: 303.2 Performed By: #### L 501.9520, L500.4050, L501.9985, L500.4100, L100.0500 #### [facility] [address] [place], [address] CO2 [Moles/Vol] 19.8 mmol/L Low 21.0-32.0 [facility] Comment on above: Order Comment: 303.2 Performed By: #### L 501.9520, L500.4050, L501.9985, L500.4100, L100.0500 #### [facility] [address] [place], [address] Creatinine [Mass/Vol] 1.16 mg/dL Normal 0.70-1.20 [facility] Comment on above: Order Comment: 303.2 Performed By: #### L 501.9520, L500.4050, L501.9985, L500.4100, L100.0500 #### [facility] [address] [place], [address] GAP 12 Normal 5-15 [facility] Comment on above: Order Comment: 303.2 Performed By: #### L 501.9520, L500.4050, L501.9985, L500.4100, L100.0500 #### [facility] [address] [place], [address] GFR/1.73 sq M.predicted among non-blacks MDRD (S/P/Bld) [Vol rate/Area] 48 mL/min/{1.73_m2} Low >60 [facility] Comment on above: Order Comment: 303.2 Result Comment: mL/m in/1.73m2 CKD-EPI Creatinine Equation (2020) Performed By: #### L 501.9520, L500.4050, L501.9985, L500.4100, L100.0500 #### [facility] [address] [place], [address] Globulin (S) [Mass/Vol] 2.4 g/dL Normal 2.2-4.2 [facility] Comment on above: Order Comment: 303.2 Performed By: #### L 501.9520, L500.4050, L501.9985, L500.4100, L100.0500 #### [facility] [address] [place], [address] Glucose [Mass/Vol] 120 mg/dL High 70-99 [facility] Comment on above: Order Comment: 303.2 Performed By: #### L 501.9520, L500.4050, L501.9985, L500.4100, L100.0500 #### [facility] [address] [place], [address] Potassium [Moles/Vol] 4.3 mmol/L Normal 3.3-5.1 [facility] Comment on above: Order Comment: 303.2 Performed By: #### L 501.9520, L500.4050, L501.9985, L500.4100, L100.0500 #### [facility] [address] [place], [address] Sodium [Moles/Vol] 140 mmol/L Normal 133-145 [facility] Comment on above: Order Comment: 303.2 Performed By: #### L 501.9520, L500.4050, L501.9985, L500.4100, L100.0500 #### [facility] [address] [place], [place], [id number] [phone] PROT 5.9 g/dL Normal 5.9-8.4 [facility] Comment on above: Order Comment: 303.2 Performed By: #### L 501.9520, L500.4050, L501.9985, L500.4100, L100.0500 #### [facility] [address] [place], [place], [address] Urea nitrogen [Mass/Vol] 24 mg/dL High 4-19 [facility] Comment on above: Order Comment: 303.2 Performed By: #### L 501.9520, L500.4050, L501.9985, L500.4100, L100.0500 #### [facility] [address] [place], [place], [address] 30on 11-21-2024 30 Problem: Knowledge Deficit Goal: Patient/family/caregiv er demonstrates understanding of disease process, treatment plan, medications, and discharge instructions Outcome: Progressing Problem: Potential for Compromised Skin Integrity Goal: Skin Integrity is Maintained or Improved Outcome: Progressing Normal [facility] [id number] 11-21-2024 [id number] Next Site of Care Admission Date: 11/13/2024 10:39 AM Patient Name: CARLINE VILLARREAL Location: [address]/[facility] [id number] A Date of : 1945 ---- Placement Information ---- Referral Type:Care Home ICF - Return Referral ID:[id number] Provider Name:[facility] Address 1:[address] [place] [address] Address 2: City:[place] Selection Factors:Returning to Facility State:[place] [facility] [phone] Discharge med list transmitted to [facility] via [facility] per TCC request. [facility] [phone] Patient has discharg e order in and transport confirmed for 1600 back to [facility]. Facility and bedside nurse updated. [facility] BASIC METABOLIC PANELon 05-2 Anion gap [Moles/Vol] 13 mmol/L Normal 3-13 [facility] Comment on above: Performed By: #### L AB15 ####Dyed Yarn Operator: FREEMAN DOUGHERTY ([phone])HELGA GARIBAY (SBHLAB)[address] Calcium [Mass/Vol] 8.8 mg/dL Normal 8.8-10.0 [facility] Comment on above: Performed By: #### L AB15 ####Dyed Yarn Operator: FREEMAN DOUGHERTY ([phone])[facility] SYSTEM[facility] ARAUJON (SBHLAB)[address] [place] [address] [place] Chloride [Moles/Vol] 104 mmol/L Normal 98-107 [facility] Comment on above: Performed By: #### L AB15 ####Dyed Yarn Operator: FREEMAN DOUGHERTY ([phone])[facility] SYSTEM[facility] (SBHLAB)[address] CO2 [Moles/Vol] 21 mmol/L Low 23-31 [facility] Comment on above: Performed By: #### L AB15 ####Dyed Yarn Operator: FREEMAN DOUGHERTY ([phone])[facility] (SBHLAB)[address] Creatinine [Mass/Vol] 1.17 mg/dL High 0.57-1.11 [facility] Comment on above: Performed By: #### L AB15 ####Dyed Yarn Operator: FREEMAN DOUGHERTY ([phone])[facility] (SBHLAB)[address] [place] [address] [place] GLOMERULAR FILTRATION RATE ML/MIN/1.73 SQ M.PREDICTED 47.9 mL/min/1.73m*2 Low >60.0 [facility] Comment on above: Result Comment: Calc ulation based on the Chronic Kidney Disease Epidemiology Collaboration (CKD-EPI) equation refit without adjustment for race Performed By: #### L AB15 ####Dyed Yarn Operator: FREEMAN DOUGHERTY ([id number])[facility] SYSTEM[facility] (SBHLAB)[address] [place] [address] [place] Glucose [Mass/Vol] 123 mg/dL High 82-115 [facility] Comment on above: Performed By: #### L AB15 ####Dyed Yarn Operator: FREEMAN DOUGHERTY ([phone])[facility]OD[facility]IMBR[facility]ITALN (SBHLAB)[address] Potassium [Moles/Vol] 3.7 mmol/L Normal 3.5-5.1 [facility] Comment on above: Result Comment: [facility] potassium values may be up to 0.5 mmol/L lower than serum values. Performed By: #### L AB15 ####Dyed Yarn Operator: FREEMAN DOUGHERTY ([id number])[facility]IMBR[facility] (SBHLAB)[address] Sodium [Moles/Vol] 138 mmol/L Normal 136-145 [facility] Comment on above: Performed By: #### L AB15 ####Dyed Yarn Operator: FREEMAN DOUGHERTY ([phone])[facility] (SBHLAB)[address] Urea nitrogen [Mass/Vol] 29 mg/dL High 9-23 [facility] Comment on above: Performed By: #### L AB15 ####Dyed Yarn Operator: FREEMAN DOUGHERTY ([phone])[facility] (SBHLAB)[address] Basic metabolic 1998 panelon 11-21-2024 Anion gap [Moles/Vol] 13 mmol/L 3 - 13 mmol/L [facility] Calcium [Mass/Vol] 8.8 mg/dL 8.8 - 10. 0 mg/dL [facility] Chloride [Moles/Vol] 104 mmol/L 98 - 10 7 mmol/L [facility] CO2 [Moles/Vol] 21 mmol/L Low 23 - 31 mmol/L [facility] Creatinine [Mass/Vol] 1.17 mg/dL High 0.57 - 1.11 mg/dL [facility] GFR/1.73 sq M.predicted (S/P/Bld) [Vol rate/Area] 47.9 mL/min Low - PINF [facility] Glucose [Mass/Vol] 123 mg/dL High 82 - 115 mg/dL [facility] Interpretation and review of laboratory results Abnormal [facility] Potassium [Moles/Vol] 3.7 mmol/L 3.5 - 5.1 mmol/L [facility] Sodium [Moles/Vol] 138 mmol/L 136 - 145 mmol/L [facility] Urea nitrogen [Mass/Vol] 29 mg/dL High 9 - 23 mg/dL [facility] CBC W Auto Differential pane l (Bld)on 11-21-2024 Basophils (Bld) [#/Vol] 0 10*3/uL 0.0 - 0.2 10*3/uL [facility] Basophils/100 WBC (Bld) 0.4 % 0.0 - 2.0 % [facility] Eosinophils (Bld) [#/Vol] 0.7 10*3/uL High 0.0 - 0.5 10*3/uL [facility] Eosinophils/100 WBC (Bld) 6.9 % High 0.0 - 6.0 % [facility] Erythrocyte distribution width (RBC) [Ratio] 15 % 11.5 - 15.0 % [facility] Hematocrit (Bld) [Volume fraction] 43.4 % 35.0 - 47.0 % [facility] Hemoglobin (Bld) [Mass/Vol] 14.2 g/dL 11.7 - 16.0 g/dL [facility] Immature granulocytes (Bld) [#/Vol] 0.1 10*3/uL High NINF - 0.1 10*3/uL [facility] Immature granulocytes/100 WBC (Bld) 0.5 % 0.0 - 2.0 % [facility] Interpretation and review of laboratory results Abnormal [facility] Lymphocytes (Bld) [#/Vol] 1.7 10*3/uL 1.0 - 4.3 10*3/uL [facility] Lymphocytes/100 WBC (Bld) 16.6 % 15.0 - 45.0 % [facility] MCH (RBC) [Entitic mass] 31.7 pg 26.0 - 34.[address] [facility] MCHC (RBC) [Mass/Vol] 32.7 % 30.5 - 36.0 % [facility] MCV (RBC) [Entitic vol] 96.9 fL 77.0 - 99.[address] [facility] Monocytes (Bld) [#/Vol] 0.9 10*3/uL 0.0 - 0.9 10*3/uL [facility] Monocytes/100 WBC (Bld) 8.8 % 5.0 - 13.0 % [facility] Neutrophils (Bld) [#/Vol] 6.8 10*3/uL 1.8 - 7.5 10*3/uL [facility] [facility] Neutrophils/100 WBC (Bld) 66.8 % 38.0 - 82.0 % [facility] Nucleated RBC/100 WBC (Bld) [Ratio] 0 % [facility] Platelet mean volume (Bld) [Entitic vol] 11.7 fL 9.0 - 12.[address] [facility] Platelets (Bld) [#/Vol] 312 10*3/uL 140 - 440 10*3/uL [facility] RBC (Bld) [#/Vol] 4.48 10*6/uL 3.80 - 5.2 0 10*6/uL [facility] WBC (Bld) [#/Vol] 10.2 10*3/uL 3.6 - 10.7 10*3/uL [facility] CBC WITH AUTO DIFFERENTIALon 11-21-2024 Basophils (Bld) [#/Vol] 0.0 10*3/uL Normal 0.0-0.2 [facility] Comment on above: Performed By: #### L [id number] ####Dyed Yarn Operator: FREEMAN DOUGHERTY ([phone])[facility] ([facility])[address] [place] [address] Basophils/100 WBC (Bld) 0.4 % Normal 0.0-2.0 [facility] Comment on above: Performed By: #### L [id number] ####Dyed Yarn Operator: FREEMAN DOUGHERTY ([phone])[facility] ([facility] Eosinophils (Bld) [#/Vol] 0.7 10*3/uL High 0.0-0.5 [facility] Comment on above: Performed By: #### L [id number] ####Dyed Yarn Operator: FREEMAN DOUGHERTY ([phone])[facility] ([facility])[address] Eosinophils/100 WBC (Bld) 6.9 % High 0.0-6.0 [facility] Comment on above: Performed By: #### L [id number] ####Dyed Yarn Operator: FREEMAN DOUGHERTY ([phone])[facility] ([facility] [place] [address] Erythrocyte distribution width (RBC) [Ratio] 15.0 % Normal 11.5-15.0 [facility] Comment on above: Performed By: #### L [id number] ####Dyed Yarn Operator: FREEMAN MURPHYMICHAEL ([phone])[facility] ([facility])[address] [place] [address] Hematocrit (Bld) [Volume fraction] 43.4 % Normal 35.0-47.0 [facility] Comment on above: Performed By: #### L [id number] ####Dyed Yarn Operator: FREEMAN MURPHYMICHAEL ([phone])[facility] ([facility])[address] [place] [address] Hemoglobin (Bld) [Mass/Vol] 14.2 g/dL Normal 11.7-16.0 [facility] Comment on above: Performed By: #### L [id number] ####Dyed Yarn Operator: FREEMAN DOUGHERTY ([phone])[facility] ([facility])[address] [place] [address] IMMATURE GRANS % 0.5 % Normal 0.0-2.0 [facility] Comment on above: Performed By: #### L [id number] ####Dyed Yarn Operator: FREEMAN DOUGHERTY ([phone])[facility] ([facility])[address] [place] [address] IMMATURE GRANS ABSOLUTE 0.1 10*3/uL High <0.1 [facility] Comment on above: Performed By: #### L [id number] ####Dyed Yarn Operator: FREEMAN DOUGHERTY ([phone])[facility] ([facility])[address] [place] [address] Lymphocytes (Bld) [#/Vol] 1.7 10*3/uL Normal 1.0-4.3 [facility] Comment on above: Performed By: #### L [id number] ####Dyed Yarn Operator: FREEMAN MURPHYMICHAEL ([phone])[facility] ([facility])[address] Lymphocytes/100 WBC (Bld) 16.6 % Normal 15.0-45.0 [facility] Comment on above: Performed By: #### L [id number] ####Dyed Yarn Operator: FREEMAN MURPHYMICHAEL ([phone])[facility] ([facility])[address] MCH (RBC) [Entitic mass] 31.7 pg Normal 26.0-34.0 [facility] Comment on above: Performed By: #### L [id number] ####Dyed Yarn Operator: FREEMAN SUAREZMartinaMICHAEL ([phone])[facility] SYSTEM[facility]nam[facility] ARAUJOJoe ([facility])[address] MCHC 32.7 % Normal 30.5-36.0 [facility] Comment on above: Performed By: #### L [id number] ####Dyed Yarn Operator: FREEMAN DOUGHERTY ([phone])[facility] SYSTEM[facility] ([facility])[address] MCV (RBC) [Entitic vol] 96.9 fL Normal 77.0-99.0 [facility] Comment on above: Performed By: #### L [id number] ####Dyed Yarn Operator: FREEMAN DOUGHERTY ([phone])[facility] SYSTEM[facility] ([facility])[address] Monocytes (Bld) [#/Vol] 0.9 10*3/uL Normal 0.0-0.9 [facility] Comment on above: Performed By: #### L [id number] ####Dyed Yarn Operator: FREEMAN DOUGHERTY ([phone])[facility] SYSTEM[facility]ITALN ([facility])[address] Monocytes/100 WBC (Bld) 8.8 % Normal 5.0-13.0 [facility] Comment on above: Performed By: #### L [id number] ####Dyed Yarn Operator: FREEMAN MURPHYMICHAEL ([phone])[facility] [place] ([facility])[address] NEUTROPHILS ABSOLUTE 6.8 10*3/uL Normal 1.8-7.5 [facility] Comment on above: Performed By: #### L [id number] ####Dyed Yarn Operator: FREEMAN CARVERCER ([phone])[facility] [place] ([facility])[address] Neutrophils/100 WBC (Bld) 66.8 % Normal 38.0-82.0 [facility] Comment on above: Performed By: #### L [id number] ####Dyed Yarn Operator: FREEMAN SUAREZMAYRA ([phone])[facility] [place] ([facility])[address] NRBC 0.0 /100 WBCs Normal 0.0-2.0 [facility] Comment on above: Performed By: #### L [id number] ####Dyed Yarn Operator: FREEMAN MURPHYMICHAEL ([phone])[facility] [place] ([facility])[address] Platelet mean volume (Bld) [Entitic vol] 11.7 fL Normal 9.0-12.7 [facility] Comment on above: Performed By: #### L [id number] ####Dyed Yarn Operator: FREEMAN DOUGHERTY ([phone])[facility] [place] ([facility])[address] Platelets (Bld) [#/Vol] 312 10*3/uL Normal 140-440 [facility] Comment on above: Performed By: #### L [id number] ####Dyed Yarn Operator: FREEMAN MURPHYMICHAEL ([phone])[facility] [place] ([facility])[address] RBC (Bld) [#/Vol] 4.48 10*6/uL Normal 3.80-5.20 [facility] Comment on above: Performed By: #### L [id number] ####Dyed Yarn Operator: FREEMAN DOUGHERTY ([phone])[facility] SYSTEM[facility] G[facility] ([facility])[address] WBC (Bld) [#/Vol] 10.2 10*3/uL Normal 3.6-10.7 [facility] Comment on above: Performed By: #### L [id number] ####Dyed Yarn Operator: FREEMAN DOUGHERTY ([phone])[facility] ([facility])[address] Laboratory - Chemistry and C hemistry - challengeon 11-21-2024 Glucose [Mass/Vol] 140 mg/dL High 70 - 100 mg/dL [facility] Glucose [Mass/Vol] 123 mg/dL High 70 - 100 mg/dL [facility] No Panel Informationon 11-21 Interpretation and review of laboratory results Abnormal [facility] Interpretation and review of laboratory results Abnormal [facility] Nursing Noteon 11-21-2024 Nursing Note Call placed to patients son to update status of slate picker. Transportation on site to slate picker patient. Pillai notified. Normal [facility] Nursing Note Report called to [place] at [facility]. No questions at this time. Normal [facility] Nursing Note Call placed to patients Rosas arredondo to notify of slate picker time. Rosas confirmed that patients dentures and wheelchair are at the facility. No questions at this time. Normal [facility] Nursing Note Wound Care consulted for Pressure Injury Prevention. Pt's Troy score= 15 on 11/20 Pt refused assessment of pressure points at this time, stating, "I don't have anything wrong with my skin." Attempted to provide education regarding pressure injury prevention, but pt not receptive and continued to state, "I don't have anything." Pt currently followed by Wound SURGICAL DRESSING MAKER group for MASD to bilateral buttocks. For bilateral buttocks MASD assessment please see Wound/Ostomy SURGICAL DRESSING MAKER progress notes. Prevention Measures in place, including: Pillows/wedges, Heels elevated off bed on pillows, Zinc/Moisture Barrier ointment (ET mix also noted at bedside), Waffle chair cushion (obtain for pt once getting out of bed to chair). Skin Care precaution order set ordered. Dietitian hardware technician involved. PT/OT consult in place. Will continue to follow pt. Please secure chat for any questions or concerns. Maribeth Handley RN [facility] Progress Noteon 11-21-2024 Progress Note OCCUPATIONAL THERAPY [facility] Treatment Note Name/MRN: Carline Villarreal ([id number]) Date of : 1945 Age: 78 y.o. Room/Bed: B4-466/B4-466 A Visit #: 4 out of 7 Discharge Recommendation: [facility] Facility Equipment Needed: No Assessment Pt is [...] Minutes (1 ADL, 1 ACT) FABI Deal/Nicole [facility] Progress Note Speech-Language Pathology SPEECH LANGUAGE PATHOLOGY [facility] Dysphagia Treatment Note Patient Name: Carline Villarreal Evaluation Date: 11/21/2024 Date of : 1945 Admission Date: 11/13/2024 10:39 AM Age: 78 y.o. Room[facility]Bed: B4[facility]/B4[facility] A Subjective Patient alert and cooperative. Seen [...] safe and effective dietary tolerance. Continue acute FOAM MACHINE OPERATOR therapy per initial plan of care and [...] Start: 11/17/24 Expected End: 11/24/24 Therapy Time FOAM MACHINE OPERATOR Individual Minutes Time In: 919 Time Out: 929 Minutes: 10 Jasmyn Vines CCC-FOAM MACHINE OPERATOR Normal [facility] Progress Note [facility] Geriatric Medicine Inpatient Consult Service Admission [...] for signs/symptoms of infection. Dementia --Lives in [place] [facility] --History of stroke with worsening cognitive decline. --Try to avoid anticholinergic medications --11/21: May still not be at baseline. Continue plan. Debility --Contributing factors include stroke, Dementia, Chronic pain, heart failure --nathan lift and use of wheelchair at baseline --PT and OT --Anticipate return to [place] when medically stable --11/21: Stable. Anticipate SNF [...] Subjective Chief Complaint: I am at the half-way Geriatrics consulted for "confusion restless with underlying dementia with prolonged qtc" HPI- The patient is known to me. 78 y.o. year-old female with past medical history of dementia, cerebral vascular disease (with left sided weakness), hypertension, CKD, bipolar disorder, hypothyroidism, gout, migraines who was [facility]24 for shortness of breath/cough/hypoxia. [...] TV. She states she is in the half-way. States she is "here to have fun". Reports she did not eat breakfast. Reports pain is "not bad". -Nursing reports patient is more alert. Took [...] (97.4 ?F) (Temporal) Resp 18 Ht 5' 5" (1.651 m) Wt 210 lb (95.3 kg) [...] No respirat (more content not included)... Normal [facility] 30on 11-20-2024 30 Problem: Knowledge Deficit Goal: Patient/family/caregiv er demonstrates understanding of disease process, treatment plan, medications, and discharge instructions Outcome: Progressing Problem: Potential for Compromised Skin Integrity Goal: Skin Integrity is Maintained or Improved Outcome: Progressing Normal [facility] [id number] 11-20-2024 [id number] Patient remains on 4 S. Discharge to SNF cancelled on 11/17 due to low grade fever, tachycardia, and leukocytosis. Blood cultures obtained and are negative. No growth in 48 hours. CM following to assist with discharge back to [place] [facility]. Normal [facility] BASIC METABOLIC PANELon 05- Anion gap [Moles/Vol] 11 mmol/L Normal 3-13 [facility] Comment on above: Performed By: #### L [id number] ####Dyed Yarn Operator: FREEMAN DOUGHERTY ([phone])[facility] ([facility])[address] [place] [address] Calcium [Mass/Vol] 8.7 mg/dL Low 8.8-10.0 [facility] Comment on above: Performed By: #### L [id number] ####Dyed Yarn Operator: FREEMAN DOUGHERTY ([phone])[facility] ([facility])[address] [place] [address] [place] Chloride [Moles/Vol] 106 mmol/L Normal 98-107 [facility] Comment on above: Performed By: #### L [id number] ####Dyed Yarn Operator: FREEMAN DOUGHERTY ([phone])[facility] ([facility])[address] [place] [address] [place] CO2 [Moles/Vol] 21 mmol/L Low 23-31 [facility] Comment on above: Performed By: #### L [id number] ####Dyed Yarn Operator: FREEMAN DOUGHERTY ([phone])[facility] ([facility])[address] Creatinine [Mass/Vol] 1.29 mg/dL High 0.57-1.11 [facility] Comment on above: Performed By: #### L [id number] ####Dyed Yarn Operator: FREEMAN DOUGHERTY ([phone])[facility] ([facility])[address] GLOMERULAR FILTRATION RATE ML/MIN/1.73 SQ M.PREDICTED 42.6 mL/min/1.73m*2 Low >60.0 [facility] Comment on above: Result Comment: Calc ulation based on the Chronic Kidney Disease Epidemiology Collaboration (CKD-EPI) equation refit without adjustment for race Performed By: #### L [id number] ####Dyed Yarn Operator: FREEMAN DOUGHERTY ([phone])[facility] ([facility])[address] Glucose [Mass/Vol] 140 mg/dL High 82-115 [facility] Comment on above: Performed By: #### L [id number] ####Dyed Yarn Operator: FREEMAN DOUGHERTY ([phone])[facility] ([facility])[address] [place] [address] Potassium [Moles/Vol] 3.6 mmol/L Normal 3.5-5.1 [facility] Comment on above: Result Comment: [facility] potassium values may be up to 0.5 mmol/L lower than serum values. Performed By: #### L AB15 ####Dyed Yarn Operator: FREEMAN DOUGHERTY ([phone])[facility] ([facility])[address] Sodium [Moles/Vol] 138 mmol/L Normal 136-145 [facility] Comment on above: Performed By: #### L [id number] ####Dyed Yarn Operator: FREEMAN DOUGHERTY ([phone])[facility] ([facility])[address] Urea nitrogen [Mass/Vol] 44 mg/dL High 9-[address] [facility] Comment on above: Performed By: #### L [id number] ####Dyed Yarn Operator: FREEMAN DOUGHERTY ([phone])[facility] ([facility])[address] Basic metabolic 1998 panelon 11-20-2024 Anion gap [Moles/Vol] 11 mmol/L 3 - 13 mmol/L [facility] Calcium [Mass/Vol] 8.7 mg/dL Low 8.8 - 10. 0 mg/dL [facility] Chloride [Moles/Vol] 106 mmol/L 98 - 10 7 mmol/L [facility] CO2 [Moles/Vol] 21 mmol/L Low 23 - 31 mmol/L [facility] Creatinine [Mass/Vol] 1.29 mg/dL High 0.57 - 1.11 mg/dL [facility] GFR/1.73 sq M.predicted (S/P/Bld) [Vol rate/Area] 42.6 mL/min Low - PINF [facility] Glucose [Mass/Vol] 140 mg/dL High 82 - 115 mg/dL [facility] Interpretation and review of laboratory results Abnormal [facility] Potassium [Moles/Vol] 3.6 mmol/L 3.5 - 5.1 mmol/L [facility] Sodium [Moles/Vol] 138 mmol/L 136 - 145 mmol/L [facility] Urea nitrogen [Mass/Vol] 44 mg/dL High 9 - 23 mg/dL [facility] CBC W Auto Differential pane l (Bld)on 11-20-2024 Basophils (Bld) [#/Vol] 0.1 10*3/uL 0.0 - 0.2 10*3/uL [facility] Basophils/100 WBC (Bld) 0.5 % 0.0 - 2.0 % [facility] Eosinophils (Bld) [#/Vol] 0.7 10*3/uL High 0.0 - 0.5 10*3/uL [facility] Eosinophils/100 WBC (Bld) 5.1 % 0.0 - 6.0 % [facility] Erythrocyte distribution width (RBC) [Ratio] 14.8 % 11.5 - 15.0 % [facility] Hematocrit (Bld) [Volume fraction] 43.7 % 35.0 - 47.0 % [facility] Hemoglobin (Bld) [Mass/Vol] 14.3 g/dL 11.7 - 16.0 g/dL [facility] Immature granulocytes (Bld) [#/Vol] 0 10*3/uL NINF - 0.1 10*3/uL [facility] Immature granulocytes/100 WBC (Bld) 0.3 % 0.0 - 2.0 % [facility] Interpretation and review of laboratory results Abnormal [facility] Lymphocytes (Bld) [#/Vol] 1.3 10*3/uL 1.0 - 4.3 10*3/uL [facility] Lymphocytes/100 WBC (Bld) 10.4 % Low 15.0 - 45.0 % [facility] MCH (RBC) [Entitic mass] 31.9 pg 26.0 - 34.[address] [facility] MCHC (RBC) [Mass/Vol] 32.7 % 30.5 - 36.0 % [facility] MCV (RBC) [Entitic vol] 97.5 fL 77.0 - 99.[address] [facility] Monocytes (Bld) [#/Vol] 0.8 10*3/uL 0.0 - 0.9 10*3/uL [facility] Monocytes/100 WBC (Bld) 6.4 % 5.0 - 13.0 % [facility] Neutrophils (Bld) [#/Vol] 9.9 10*3/uL High 1.8 - 7.5 10*3/uL [facility] Neutrophils/100 WBC (Bld) 77.3 % 38.0 - 82.0 % [facility] Nucleated RBC/100 WBC (Bld) [Ratio] 0.2 % [facility] Platelet mean volume (Bld) [Entitic vol] 11.1 fL 9.0 - 12.[address] [facility] Platelets (Bld) [#/Vol] 279 10*3/uL 140 - 440 10*3/uL [facility] RBC (Bld) [#/Vol] 4.48 10*6/uL 3.80 - 5.2 0 10*6/uL [facility] WBC (Bld) [#/Vol] 12.8 10*3/uL High 3.6 - 10.7 10*3/uL [facility] CBC WITH AUTO DIFFERENTIALon 11-20-2024 Basophils (Bld) [#/Vol] 0.1 10*3/uL Normal 0.0-0.2 [facility] Comment on above: Performed By: #### L [id number] ####Dyed Yarn Operator: FREEMAN DOUGHERTY ([phone])[facility] [place] ([facility])[address] Basophils/100 WBC (Bld) 0.5 % Normal 0.0-2.0 [facility] Comment on above: Performed By: #### L [id number] ####Dyed Yarn Operator: FREEMAN DOUGHERTY ([phone])[facility] ([facility])[address] Eosinophils (Bld) [#/Vol] 0.7 10*3/uL High 0.0-0.5 [facility] Comment on above: Performed By: #### L [id number] ####Dyed Yarn Operator: FREEMAN DOUGHERTY ([phone])[facility] ([facility])[address] Eosinophils/100 WBC (Bld) 5.1 % Normal 0.0-6.0 [facility] Comment on above: Performed By: #### L [id number] ####Dyed Yarn Operator: FREEMAN DOUGHERTY ([phone])[facility] ([facility])[address] Erythrocyte distribution width (RBC) [Ratio] 14.8 % Normal 11.5-15.0 [facility] Comment on above: Performed By: #### L [id number] ####Dyed Yarn Operator: FREEMAN DOUGHERTY ([phone])[facility] ([facility])[address] [place] [address] Hematocrit (Bld) [Volume fraction] 43.7 % Normal 35.0-47.0 [facility] Comment on above: Performed By: #### L [id number] ####Dyed Yarn Operator: FREEMAN CARVERCER ([phone])[facility] SYSTEM[facility] BROCKJUANA ([facility])[address] Hemoglobin (Bld) [Mass/Vol] 14.3 g/dL Normal 11.7-16.0 [facility] Comment on above: Performed By: #### L [id number] ####Dyed Yarn Operator: FREEMAN MURPHYMICHAEL ([phone])[facility] SYSTEM[facility] ([facility])[address] IMMATURE GRANS % 0.3 % Normal 0.0-2.0 [facility] Comment on above: Performed By: #### L [id number] ####Dyed Yarn Operator: FREEMAN MURPHYMICHAEL ([phone])[facility] SYSTEM[facility] [place] ([facility])[address] IMMATURE GRANS ABSOLUTE 0.0 10*3/uL Normal <0.1 [facility] Comment on above: Performed By: #### L [id number] ####Dyed Yarn Operator: FREEMAN MURPHYMICHAEL ([phone])[facility] [place] ([facility])[address] Lymphocytes (Bld) [#/Vol] 1.3 10*3/uL Normal 1.0-4.3 [facility] Comment on above: Performed By: #### L [id number] ####Dyed Yarn Operator: FREEMAN DOUGHERTY ([phone])[facility] SYSTEM[facility] [place] ([facility])[address] [place] [address] [place] Lymphocytes/100 WBC (Bld) 10.4 % Low 15.0-45.0 [facility] Comment on above: Performed By: #### L [id number] ####Dyed Yarn Operator: FREEMAN DOUGHERTY ([phone])[facility] SYSTEM[facility] ([facility])[address] MCH (RBC) [Entitic mass] 31.9 pg Normal 26.0-34.0 [facility] Comment on above: Performed By: #### L [id number] ####Dyed Yarn Operator: FREEMAN DOUGHERTY ([phone])[facility] ([facility])[address] MCHC 32.7 % Normal 30.5-36.0 [facility] Comment on above: Performed By: #### L [id number] ####Dyed Yarn Operator: FREEMAN DOUGHERTY ([phone])[facility] [place] ([facility])[address] MCV (RBC) [Entitic vol] 97.5 fL Normal 77.0-99.0 [facility] Comment on above: Performed By: #### L [id number] ####Dyed Yarn Operator: FREEMAN DOUGHERTY ([phone])[facility] [place] ([facility])[address] Monocytes (Bld) [#/Vol] 0.8 10*3/uL Normal 0.0-0.9 [facility] Comment on above: Performed By: #### L [id number] ####Dyed Yarn Operator: FREEMAN DOUGHERTY ([phone])[facility] ([facility])[address] Monocytes/100 WBC (Bld) 6.4 % Normal 5.0-13.0 [facility] Comment on above: Performed By: #### L [id number] ####Dyed Yarn Operator: FREEMAN DOUGHERTY ([phone])[facility] ([facility])[address] NEUTROPHILS ABSOLUTE 9.9 10*3/uL High 1.8-7.5 [facility] Comment on above: Performed By: #### L [id number] ####Dyed Yarn Operator: FREEMAN DOUGHERTY ([phone])[facility] ([facility])[address] Neutrophils/100 WBC (Bld) 77.3 % Normal 38.0-82.0 [facility] Comment on above: Performed By: #### L [id number] ####Dyed Yarn Operator: FREEMAN DOUGHERTY ([phone])[facility] ([facility])[address] NRBC 0.2 /100 WBCs Normal 0.0-2.0 [facility] Comment on above: Performed By: #### L [id number] ####Dyed Yarn Operator: FREEMAN DOUGHERTY ([phone])[facility] ([facility])[address] Platelet mean volume (Bld) [Entitic vol] 11.1 fL Normal 9.0-12.7 [facility] Comment on above: Performed By: #### L [id number] ####Dyed Yarn Operator: FREEMAN DOUGHERTY ([phone])[facility] (SB[facility])[address] Platelets (Bld) [#/Vol] 279 10*3/uL Normal 140-440 [facility] Comment on above: Performed By: #### L [id number] ####Dyed Yarn Operator: FREEMAN DOUGHERTY ([phone])[facility] (SBHLAB)27 [place] [address] RBC (Bld) [#/Vol] 4.48 10*6/uL Normal 3.80-5.20 [facility] Comment on above: Performed By: #### L [id number] ####Dyed Yarn Operator: FREEMAN DOUGHERTY ([phone])[facility] (SB[facility])[address] [place] [address] WBC (Bld) [#/Vol] 12.8 10*3/uL High 3.6-10.7 [facility] Comment on above: Performed By: #### L [id number] ####Dyed Yarn Operator: FREEMAN DOUGHERTY ([phone])[facility] (SBHLAB)[address] Consulton 11-20-2024 Consult [facility] Wound Care CONSULT Note Carline Villarreal AGE: [...] transport to ED. Wound Care consulted for "Pressure Injury Buttocks" PAST MEDICAL HISTORY Medical History[1] PAST SURGICAL HISTORY Surgical History[2] FAMILY HISTORY Family History[3] SOCIAL HISTORY Social History[4] ALLERGIES Allergies[5] MEDICATIONS Medications Ordered Prior to Encounter[6] REVIEW OF SYSTEMS Pertinent items are noted in HPI. Objective: BP (!) 176/81 Pulse 85 Temp 36.1 ?C (97 ?F) (Temporal) Resp 16 Ht 1.651 m (5' 5") Wt 95.3 kg (210 lb) SpO2 99% [...] (H) 11/20/2024 PT/INR: No results found for: "PROTIME", INR Prealbumin: No results found for: PREALBUMIN Albumin:No components found for: "LABALBU" Sed Rate:No results found for: "SEDRATE" Micro: No components found for: "BC" Assessment/Plan: Nursing staff to perform dressing change: Bilateral buttocks: MASD (Bodily fluids) -cleanse with soap and water, apply ET mix TID and PRN, leave PELON -waffle chair cushion -Q2hr/PRN turns -glide sheets for T&R -continence checks Q1-2 Hrs/PRN Nutritional support Wound Care to follow Recommend to follow up at [facility] Outpatient wound care center after hospital discharge. Any questions or concerns please secure chat "[facility] wound/ostomy". Thank you for the consult! I personally [...] capsule Eze (more content not included)... Normal [facility] Laboratory - Chemistry and C hemistry - challengeon 11-20-2024 Glucose [Mass/Vol] 167 mg/dL High 70 - 100 mg/dL [facility] Glucose [Mass/Vol] 131 mg/dL High 70 - 100 mg/dL [facility] Glucose [Mass/Vol] 137 mg/dL High 70 - 100 mg/dL [facility] Glucose [Mass/Vol] 151 mg/dL High 70 - 100 mg/dL [facility] No Panel Informationon 11-20 Interpretation and review of laboratory results Abnormal [facility] Interpretation and review of laboratory results Abnormal [facility] Interpretation and review of laboratory results Abnormal [facility] Interpretation and review of laboratory results Abnormal [facility] Progress Noteon 11-20-2024 Progress Note [facility] Medical [facility] Geriatric Medicine Inpatient Consult Service Admission [...] percocet (last received 11/15) Dementia --Lives in [place] [facility] facility --History of stroke with worsening cognitive decline. --Try to avoid anticholinergic medications --11/20: Still not back at baseline. Debility --Contributing factors include stroke, Dementia, Chronic pain, heart failure --nathan lift and use of wheelchair at baseline --PT and OT --Anticipate return to [place] when medically stable --11/20: Stable Bipolar Disorder [...] Complaint: shortness of breath Geriatrics consulted for "confusion restless with underlying dementia with prolonged qtc" HPI- The patient is known to me. 78 y.o. year-old female with past medical history of dementia, cerebral vascular disease (with left sided weakness), hypertension, CK,D, bipolar disorder, hypothyroidism, gout, migraines who was admitted [facility] from [facility] for shortness of breath/cough/hypoxia. Diagnosed with acute CHF exacerbation and EDWIGE. Cardiology following. ECHO 11/14 with EF 35%. Findings consistent with Takotsubo vs CAD. Developed EDWIGE. CBC: wbc 12.8 BMP: Creatinine 1.29, BUN 44 Reviewed yesterday's primary team progress note and pulmonology note. Interval History: She think she is at [facility]. She says she is upset because [...] (97 ?F) (Temporal) Resp 16 Ht 5' 5" (1.651 m) Wt 210 lb (95.3 kg) [...] is disoriented. Comments: Thinks she is at [facility] Psychiatric: Cognition and Memory: Cognit (more content not included)... Normal [facility] Progress Note OCCUPATIONAL THERAPY [facility] Treatment Note Name/MRN: Carline Villarreal ([id number]) Date of : 1945 Age: 78 y.o. Room[facility]Bed: [facility] A Visit #: 3 out of 7 Discharge Recommendation: [facility] Facility Equipment Needed: No Assessment Patient is [...] upper body dressing SBA (Not Addressed) Start: 05/14/25 Expected End: 11/25/24 Dressings Lower Extremities Patient [...] Minutes (1 ADL, 1 ACT) FABI Deal/Nicole [facility] Progress Note PHYSICAL THERAPY [facility] Treatment Note Name/MRN: Carline Villarreal ([id number]) Date of : 1945 Age: 78 y.o. [facility] A Visit #: 2 out of 7 visits Discharge Recommendation: [facility] Facility Equipment Needed: No Other: TBD at [...] - pt initially stating she was at [facility] and then later in session patient states she was at a half-way Family/Caregiver Present: none Objective Exercises Hip Abduction: [...] Minutes (therex x 1) Dea Mason, PT [facility] Progress Note Speech-Language Pathology SPEECH LANGUAGE PATHOLOGY [facility] Dysphagia Treatment Note Patient Name: Carline Villarreal Evaluation Date: 11/20/2024 Date of : 1945 Admission Date: 11/13/2024 10:39 AM Age: 78 y.o. [facility] A Subjective Patient alert and cooperative. [...] noted. Plan & Recommendations Plan: Continue acute FOAM MACHINE OPERATOR therapy per initial plan of care and [...] Start: 11/17/24 Expected End: 11/24/24 Therapy Time FOAM MACHINE OPERATOR Individual Minutes Time In: 926 Time Out: 935 Minutes: 9 Jasmyn Vines CCC-FOAM MACHINE OPERATOR Normal [facility] Progress Note Nutrition update completed. Chart reviewed. Patient continues as a level 1. Normal [facility] Progress Note Nutrition rescreen completed. Chart reviewed. Patient to be monitored and followed by the diet hardware technician. Normal [facility] 30on 11-19-2024 30 Problem: Knowledge Deficit Goal: Patient/family/caregiv er demonstrates understanding of disease process, treatment plan, medications, and discharge instructions Outcome: Progressing Problem: Potential for Compromised Skin Integrity Goal: Skin Integrity is Maintained or Improved Outcome: Progressing Normal [facility] BASIC METABOLIC PANELon 05- Anion gap [Moles/Vol] 12 mmol/L Normal 3-13 [facility] Comment on above: Performed By: #### L [id number], [id number] ####Dyed Yarn Operator: FREEMAN DOUGHERTY ([phone])[facility] (SBHLAB)[address] [place] [address] Calcium [Mass/Vol] 8.3 mg/dL Low 8.8-10.0 [facility] Comment on above: Performed By: #### L [id number], [id number] ####Dyed Yarn Operator: FREEMAN DOUGHERTY ([phone])[facility] (SBHLAB)[address] Chloride [Moles/Vol] 106 mmol/L Normal 98-107 [facility] Comment on above: Performed By: #### L AB15, [id number] ####Dyed Yarn Operator: FREEMAN DOUGHERTY ([phone])[facility] (SBHLAB)[address] CO2 [Moles/Vol] 20 mmol/L Low 23-31 [facility] Comment on above: Performed By: #### L AB15, [id number] ####Dyed Yarn Operator: FREEMAN DOUGHERTY ([phone])[facility] (SBHLAB)[address] Creatinine [Mass/Vol] 1.60 mg/dL High 0.57-1.11 [facility] Comment on above: Performed By: #### L AB15, [id number] ####Dyed Yarn Operator: FREEMAN DOUGHERTY ([phone])[facility] (SBHLAB)[address] GLOMERULAR FILTRATION RATE ML/MIN/1.73 SQ M.PREDICTED 32.9 mL/min/1.73m*2 Low >60.0 [facility] Comment on above: Result Comment: Calc ulation based on the Chronic Kidney Disease Epidemiology Collaboration (CKD-EPI) equation refit without adjustment for race Performed By: #### L AB15, [id number] ####Dyed Yarn Operator: FREEMAN DOUGHERTY ([phone])[facility] (SBHLAB)[address] [place] [address] [place] Glucose [Mass/Vol] 142 mg/dL High 82-115 [facility] Comment on above: Performed By: #### L AB15, [id number] ####Dyed Yarn Operator: FREEMAN DOUGHERTY ([phone])[facility] (SBHLAB)[address] [place] [address] [place] Potassium [Moles/Vol] 3.3 mmol/L Low 3.5-5.1 [facility] Comment on above: Result Comment: [facility] potassium values may be up to 0.5 mmol/L lower than serum values. Performed By: #### L AB15, [id number] ####Dyed Yarn Operator: FREEMAN DOUGHERTY ([phone])[facility] (SBHLAB)[address] Sodium [Moles/Vol] 138 mmol/L Normal 136-145 [facility] Comment on above: Performed By: #### L AB15, [id number] ####Dyed Yarn Operator: FREEMAN DOUGHERTY ([phone])[facility] (SBHLAB)[address] Urea nitrogen [Mass/Vol] 59 mg/dL High 9-23 [facility] Comment on above: Performed By: #### L AB15, [id number] ####Dyed Yarn Operator: FREEMAN DOUGHERTY ([phone])[facility] (SBHLAB)[address] [place] [address] Basic metabolic 1998 panelon 11-19-2024 Anion gap [Moles/Vol] 12 mmol/L 3 - 13 mmol/L [facility] Calcium [Mass/Vol] 8.3 mg/dL Low 8.8 - 10. 0 mg/dL [facility] Chloride [Moles/Vol] 106 mmol/L 98 - 10 7 mmol/L [facility] CO2 [Moles/Vol] 20 mmol/L Low 23 - 31 mmol/L [facility] Creatinine [Mass/Vol] 1.6 mg/dL High 0.57 - 1.11 mg/dL [facility] GFR/1.73 sq M.predicted (S/P/Bld) [Vol rate/Area] 32.9 mL/min Low - PINF [facility] Glucose [Mass/Vol] 142 mg/dL High 82 - 115 mg/dL [facility] Interpretation and review of laboratory results Abnormal [facility] Potassium [Moles/Vol] 3.3 mmol/L Low 3.5 - 5.1 mmol/L [facility] Sodium [Moles/Vol] 138 mmol/L 136 - 145 mmol/L [facility] Urea nitrogen [Mass/Vol] 59 mg/dL High 9 - 23 mg/dL [facility] CBC W Auto Differential pane l (Bld)on 11-19-2024 Basophils (Bld) [#/Vol] 0 10*3/uL 0.0 - 0.2 10*3/uL [facility] Basophils/100 WBC (Bld) 0.2 % 0.0 - 2.0 % [facility] Eosinophils (Bld) [#/Vol] 0.7 10*3/uL High 0.0 - 0.5 10*3/uL [facility] Eosinophils/100 WBC (Bld) 5.2 % 0.0 - 6.0 % [facility] Erythrocyte distribution width (RBC) [Ratio] 14.5 % 11.5 - 15.0 % [facility] Hematocrit (Bld) [Volume fraction] 39.8 % 35.0 - 47.0 % [facility] Hemoglobin (Bld) [Mass/Vol] 13.3 g/dL 11.7 - 16.0 g/dL [facility] Immature granulocytes (Bld) [#/Vol] 0 10*3/uL NINF - 0.1 10*3/uL [facility] Immature granulocytes/100 WBC (Bld) 0.3 % 0.0 - 2.0 % [facility] Interpretation and review of laboratory results Abnormal [facility] Lymphocytes (Bld) [#/Vol] 1.2 10*3/uL 1.0 - 4.3 10*3/uL [facility] Lymphocytes/100 WBC (Bld) 9.3 % Low 15.0 - 45.0 % [facility] MCH (RBC) [Entitic mass] 32.1 pg 26.0 - 34.[address] [facility] MCHC (RBC) [Mass/Vol] 33.4 % 30.5 - 36.0 % [facility] MCV (RBC) [Entitic vol] 96.1 fL 77.0 - 99.[address] [facility] Monocytes (Bld) [#/Vol] 0.9 10*3/uL 0.0 - 0.9 10*3/uL [facility] Monocytes/100 WBC (Bld) 6.8 % 5.0 - 13.0 % [facility] Neutrophils (Bld) [#/Vol] 10.4 10*3/uL High 1.8 - 7.5 10*3/uL [facility] Neutrophils/100 WBC (Bld) 78.2 % 38.0 - 82.0 % [facility] Nucleated RBC/100 WBC (Bld) [Ratio] 0.3 % [facility] Platelet mean volume (Bld) [Entitic vol] 11.6 fL 9.0 - 12.[address] [facility] Platelets (Bld) [#/Vol] 248 10*3/uL 140 - 440 10*3/uL [facility] RBC (Bld) [#/Vol] 4.14 10*6/uL 3.80 - 5.2 0 10*6/uL [facility] WBC (Bld) [#/Vol] 13.3 10*3/uL High 3.6 - 10.7 10*3/uL [facility] CBC WITH AUTO DIFFERENTIALon 11-19-2024 Basophils (Bld) [#/Vol] 0.0 10*3/uL Normal 0.0-0.2 [facility] Comment on above: Performed By: #### L [id number] ####Dyed Yarn Operator: FREEMAN DOUGHERTY ([phone])[facility] (SBAB)[address] Basophils/100 WBC (Bld) 0.2 % Normal 0.0-2.0 [facility] Comment on above: Performed By: #### L [id number] ####Dyed Yarn Operator: FREEMAN DOUGHERTY ([phone])[facility] (SBAB)[address] [place] [address] [place] Eosinophils (Bld) [#/Vol] 0.7 10*3/uL High 0.0-0.5 [facility] Comment on above: Performed By: #### L [id number] ####Dyed Yarn Operator: FREEMAN DOUGHERTY ([phone])[facility] (SBAB)[address] [place] [address] [place] Eosinophils/100 WBC (Bld) 5.2 % Normal 0.0-6.0 [facility] Comment on above: Performed By: #### L [id number] ####Dyed Yarn Operator: FREEMAN DOUGHERTY ([phone])[facility] (SBHLAB)[address] [place] [address] Erythrocyte distribution width (RBC) [Ratio] 14.5 % Normal 11.5-15.0 [facility] Comment on above: Performed By: #### L [id number] ####Dyed Yarn Operator: FREEMAN DOUGHERTY ([phone])[facility] ([facility] [place] [address] Hematocrit (Bld) [Volume fraction] 39.8 % Normal 35.0-47.0 [facility] Comment on above: Performed By: #### L [id number] ####Dyed Yarn Operator: FREEMAN DOUGHERTY ([phone])[facility] ([facility])[address] [place] [address] Hemoglobin (Bld) [Mass/Vol] 13.3 g/dL Normal 11.7-16.0 [facility] Comment on above: Performed By: #### L [id number] ####Dyed Yarn Operator: FREEMAN DOUGHERTY ([phone])[facility] ([facility] [place] [address] IMMATURE GRANS % 0.3 % Normal 0.0-2.0 [facility] Comment on above: Performed By: #### L [id number] ####Dyed Yarn Operator: FREEMAN DOUGHERTY ([phone])[facility] ([facility])[address] [place] [address] IMMATURE GRANS ABSOLUTE 0.0 10*3/uL Normal <0.1 [facility] Comment on above: Performed By: #### L [id number] ####Dyed Yarn Operator: FREEMAN DOUGHERTY ([phone])[facility] ([facility])[address] [place] [address] Lymphocytes (Bld) [#/Vol] 1.2 10*3/uL Normal 1.0-4.3 [facility] Comment on above: Performed By: #### L [id number] ####Dyed Yarn Operator: FREEMAN DOUGHERTY ([phone])[facility] (SBHLAB)[address] Lymphocytes/100 WBC (Bld) 9.3 % Low 15.0-45.0 [facility] Comment on above: Performed By: #### L [id number] ####Dyed Yarn Operator: FREEMAN DOUGHERTY ([phone])[facility] (SBHLAB)[address] MCH (RBC) [Entitic mass] 32.1 pg Normal 26.0-34.0 [facility] Comment on above: Performed By: #### L [id number] ####Dyed Yarn Operator: FREEMAN DOUGHERTY ([phone])[facility] (SBHLAB)[address] MCHC 33.4 % Normal 30.5-36.0 [facility] Comment on above: Performed By: #### L [id number] ####Dyed Yarn Operator: FREEMAN DOUGHERTY ([phone])[facility] (SBHLAB)[address] MCV (RBC) [Entitic vol] 96.1 fL Normal 77.0-99.0 [facility] Comment on above: Performed By: #### L [id number] ####Dyed Yarn Operator: FREEMAN DOUGHERTY ([phone])[facility] (SBHLAB)[address] [place] [address] [place] Monocytes (Bld) [#/Vol] 0.9 10*3/uL Normal 0.0-0.9 [facility] Comment on above: Performed By: #### L [id number] ####Dyed Yarn Operator: FREEMAN DOUGHERTY ([phone])[facility] (SBHLAB)[address] Monocytes/100 WBC (Bld) 6.8 % Normal 5.0-13.0 [facility] Comment on above: Performed By: #### L [id number] ####Dyed Yarn Operator: FREEMAN DOUGHERTY ([phone])[facility] (SBHLAB)[address] NEUTROPHILS ABSOLUTE 10.4 10*3/uL High 1.8-7.5 [facility] Comment on above: Performed By: #### L [id number] ####Dyed Yarn Operator: FREEMAN DOUGHERTY ([phone])[facility] (SB[facility]AB)[address] Neutrophils/100 WBC (Bld) 78.2 % Normal 38.0-82.0 [facility] Comment on above: Performed By: #### L [id number] ####Dyed Yarn Operator: FREEMAN DOUGHERTY ([phone])[facility] ([facility])[address] NRBC 0.3 /100 WBCs Normal 0.0-2.0 [facility] Comment on above: Performed By: #### L [id number] ####Dyed Yarn Operator: FREEMAN DOUGHERTY ([phone])[facility] ([facility])[address] Platelet mean volume (Bld) [Entitic vol] 11.6 fL Normal 9.0-12.7 [facility] Comment on above: Performed By: #### L [id number] ####Dyed Yarn Operator: FREEMAN DOUGHERTY ([phone])[facility] (SB[facility])[address] [place] [address] [place] Platelets (Bld) [#/Vol] 248 10*3/uL Normal 140-440 [facility] Comment on above: Performed By: #### L [id number] ####Dyed Yarn Operator: FREEMAN DOUGHERTY ([phone])[facility] ([facility])[address] RBC (Bld) [#/Vol] 4.14 10*6/uL Normal 3.80-5.20 [facility] Comment on above: Performed By: #### L [id number] ####Dyed Yarn Operator: FREEMAN DOUGHERTY ([phone])[facility] (SBHLAB)[address] WBC (Bld) [#/Vol] 13.3 10*3/uL High 3.6-10.7 [facility] Comment on above: Performed By: #### L [id number] ####Dyed Yarn Operator: FREEMAN FARHAT ([phone])[facility] (SBHLAB)[address] Laboratory - Chemistry and C hemistry - challengeon 11-19-2024 Glucose [Mass/Vol] 129 mg/dL High 70 - 100 mg/dL [facility] Glucose [Mass/Vol] 123 mg/dL High 70 - 100 mg/dL [facility] Glucose [Mass/Vol] 206 mg/dL High 70 - 100 mg/dL [facility] Glucose [Mass/Vol] 154 mg/dL High 70 - 100 mg/dL [facility] Magnesium [Mass/Vol] 1.8 mg/dL 1.6 - 2 .6 mg/dL [facility] MAGNESIUMon 11-19-2024 Magnesium [Mass/Vol] 1.8 mg/dL Normal 1.6-2.6 [facility] Comment on above: Result Comment: SUKH Smith COMMENTS: Higher values can be expected in females during menses. Performed By: #### L AB15, [id number] ####Dyed Yarn Operator: FREEMAN DOUGHERTY ([phone])[facility] (SBHLAB)[address] [place] [address] Magnesium [Mass/Vol]on 11-19 Interpretation and review of laboratory results Normal [facility] No Panel Informationon 11-19 Interpretation and review of laboratory results Abnormal [facility] Interpretation and review of laboratory results Abnormal [facility] Interpretation and review of laboratory results Abnormal [facility] Interpretation and review of laboratory results Abnormal [facility] Progress Noteon 11-19-2024 Progress Note PHYSICAL THERAPY [facility] Treatment Note Name/MRN: Carline Villarreal ([id number]) Date of : 1945 Age: 78 y.o. [facility] A Visit #: 1 out of 7 Discharge Recommendation: [facility] Facility Equipment Needed: No Assessment 78 y/o [...] Overall Orientation Status: Oriented to Person and "hospital" through she thinks she is at [place] Family/Caregiver Present: none Objective Bed Mobility Supine [...] across (R) (when returned back to supine, demo'ed figure 4 pattern at (L) hip), decreased [...] Minutes (1 ther act) Ivelisse Harley, PT [facility] Progress Note OCCUPATIONAL THERAPY [facility] Treatment Note Name/MRN: Carline Villarreal ([id number]) Date of : 1945 Age: 78 y.o. Room/Bed: B4-466/B4-466 A Visit #: 2 out of 7 Discharge Recommendation: [facility] Facility Equipment Needed: No Assessment Pt in [...] Minutes: 17 Minutes (1 ACT) FABI Hickey/Nicole Normal [facility] Progress Note Speech-Language Pathology SPEECH LANGUAGE PATHOLOGY [facility] Dysphagia Treatment Note Patient Name: Carline Villarreal Evaluation Date: 11/19/2024 Date of : 1945 Admission Date: 11/13/2024 10:39 AM Age: 78 y.o. [facility] A Subjective Patient alert and cooperative. Seen [...] awareness. Plan & Recommendations Plan: Continue acute FOAM MACHINE OPERATOR therapy per initial plan of care and [...] Intervention/technique s (Progressing) Start: 11/17/24 Therapy Time FOAM MACHINE OPERATOR Individual Minutes Time In: 0956 Time Out: 1012 Minutes: 16 Herber Simmons MA, CCC-FOAM MACHINE OPERATOR [facility] Progress Note [facility], Pulmonary Medicine [address] [place] [id number] Patient - Carline Villarreal, Age - 78 y.o. - 1945 Room Number - B4-466/B4-466 A Consulting - Sivakumar Walton MD Primary Care Physician - Evi Guevara Acct: No I do not have problem with the patient you know he was kind of he wanted to go home today I just kept him so Maybe can do little earlier okay [phone]- [id number] Date of Admission - 11/13/2024 10:39 AM [...] a history of dementia as per chart half-way resident, diabetes mellitus hypertension stroke Admitted with [...] PAP therapy at home Apparently came from [facility] 20 years ago Chest x-ray reviewed interpreted by me Vascular congestion with a small bilateral pleural effusion All other systems reviewed Objective Vitals: BP 149/69 Pulse 69 Temp 36.6 ?C (97.9 ?F) (Temporal) Resp 18 Ht 5' 5" (1.651 m) Wt 210 lb (95.3 kg) [...] 20 INR PTT No results found for: "PTT" Cultures Influence pcr neg Radiology Exam Date/Time: [...] base susp (more content not included)... Normal [facility] 30on 11-18-2024 30 Problem: Knowledge Deficit Goal: Patient/family/caregiv er demonstrates understanding of disease process, treatment plan, medications, and discharge instructions Outcome: Progressing Problem: Potential for Compromised Skin Integrity Goal: Skin Integrity is Maintained or Improved Outcome: Progressing Normal [facility] BASIC METABOLIC PANELon 11-02 Anion gap [Moles/Vol] 13 mmol/L Normal 3-13 [facility] Comment on above: Performed By: #### L [id number] ####Dyed Yarn Operator: FREEMAN DOUGHERTY ([phone])[facility] (SBHLAB)[address] [place] [address] Calcium [Mass/Vol] 8.1 mg/dL Low 8.8-10.0 [facility] Comment on above: Performed By: #### L [id number] ####Dyed Yarn Operator: FREEMAN DOUGHERTY ([phone])[facility] (SBHLAB)[address] [place] [address] [place] Chloride [Moles/Vol] 108 mmol/L High 98-107 [facility] Comment on above: Performed By: #### L [id number] ####Dyed Yarn Operator: FREEMAN DOUGHERTY ([phone])[facility] ([facility])[address] CO2 [Moles/Vol] 23 mmol/L Normal 23-31 [facility] Comment on above: Performed By: #### L [id number] ####Dyed Yarn Operator: FREEMAN ODUGHERTY ([phone])[facility] (SB[facility]AB)[address] Creatinine [Mass/Vol] 1.76 mg/dL High 0.57-1.11 [facility] Comment on above: Performed By: #### L [id number] ####Dyed Yarn Operator: FREEMAN DOUGHERTY ([phone])[facility] [place] ([facility])[address] GLOMERULAR FILTRATION RATE ML/MIN/1.73 SQ M.PREDICTED 29.3 mL/min/1.73m*2 Low >60.0 [facility] Comment on above: Result Comment: Calc ulation based on the Chronic Kidney Disease Epidemiology Collaboration (CKD-EPI) equation refit without adjustment for race Performed By: #### L [id number] ####Dyed Yarn Operator: FREEMAN DOUGHERTY ([phone])[facility] [place] ([facility])[address] [place] [address] [place] Glucose [Mass/Vol] 168 mg/dL High 82-115 [facility] Comment on above: Performed By: #### L AB15 ####Dyed Yarn Operator: FREEMAN DOUGHERTY ([phone])[facility] ([facility])[address] [place] [address] [place] Potassium [Moles/Vol] 2.9 mmol/L Low 3.5-5.1 [facility] Comment on above: Result Comment: [facility] potassium values may be up to 0.5 mmol/L lower than serum values. Performed By: #### L AB15 ####Dyed Yarn Operator: FREEMAN DOUGHERTY ([phone])[facility] (SBHLAB)[address] Sodium [Moles/Vol] 144 mmol/L Normal 136-145 [facility] Comment on above: Performed By: #### L [id number] ####Dyed Yarn Operator: FREEMAN DOUGHERTY ([phone])[facility] (SBHLAB)[address] Urea nitrogen [Mass/Vol] 68 mg/dL High 9-23 [facility] Comment on above: Performed By: #### L [id number] ####Dyed Yarn Operator: FREEMAN MURPHYMICHAEL ([phone])[facility] (SBHLAB)[address] Bacteria identified Cx Nom ( Bld)on 11-18-2024 Interpretation and review of laboratory results Normal [facility] Basic metabolic 1998 panelon 11-18-2024 Anion gap [Moles/Vol] 13 mmol/L 3 - 13 mmol/L [facility] Calcium [Mass/Vol] 8.1 mg/dL Low 8.8 - 10. 0 mg/dL [facility] Chloride [Moles/Vol] 108 mmol/L High 98 - 10 7 mmol/L [facility] CO2 [Moles/Vol] 23 mmol/L 23 - 31 mmol/L [facility] Creatinine [Mass/Vol] 1.76 mg/dL High 0.57 - 1.11 mg/dL [facility] GFR/1.73 sq M.predicted (S/P/Bld) [Vol rate/Area] 29.3 mL/min Low - PINF [facility] Glucose [Mass/Vol] 168 mg/dL High 82 - 115 mg/dL [facility] Interpretation and review of laboratory results Abnormal [facility] Potassium [Moles/Vol] 2.9 mmol/L Low 3.5 - 5.1 mmol/L [facility] Sodium [Moles/Vol] 144 mmol/L 136 - 145 mmol/L [facility] Urea nitrogen [Mass/Vol] 68 mg/dL High 9 - 23 mg/dL [facility] CBC W Auto Differential pane l (Bld)on 11-18-2024 Basophils (Bld) [#/Vol] 0 10*3/uL 0.0 - 0.2 10*3/uL [facility] Basophils/100 WBC (Bld) 0.3 % 0.0 - 2.0 % [facility] Eosinophils (Bld) [#/Vol] 0.3 10*3/uL 0.0 - 0.5 10*3/uL [facility] Eosinophils/100 WBC (Bld) 2.1 % 0.0 - 6.0 % [facility] Erythrocyte distribution width (RBC) [Ratio] 14.2 % 11.5 - 15.0 % [facility] Hematocrit (Bld) [Volume fraction] 39.1 % 35.0 - 47.0 % [facility] Hemoglobin (Bld) [Mass/Vol] 12.7 g/dL 11.7 - 16.0 g/dL [facility] Immature granulocytes (Bld) [#/Vol] 0.1 10*3/uL High NINF - 0.1 10*3/uL [facility] Immature granulocytes/100 WBC (Bld) 0.4 % 0.0 - 2.0 % [facility] Interpretation and review of laboratory results Abnormal [facility] Lymphocytes (Bld) [#/Vol] 1.2 10*3/uL 1.0 - 4.3 10*3/uL [facility] Lymphocytes/100 WBC (Bld) 10 % Low 15.0 - 45.0 % [facility] MCH (RBC) [Entitic mass] 31.4 pg 26.0 - 34.[address] [facility] MCHC (RBC) [Mass/Vol] 32.5 % 30.5 - 36.0 % [facility] MCV (RBC) [Entitic vol] 96.5 fL 77.0 - 99.[address] [facility] Monocytes (Bld) [#/Vol] 0.7 10*3/uL 0.0 - 0.9 10*3/uL [facility] Monocytes/100 WBC (Bld) 5.9 % 5.0 - 13.0 % [facility] Neutrophils (Bld) [#/Vol] 9.9 10*3/uL High 1.8 - 7.5 10*3/uL [facility] Neutrophils/100 WBC (Bld) 81.3 % 38.0 - 82.0 % [facility] Nucleated RBC/100 WBC (Bld) [Ratio] 0.2 % [facility] Platelet mean volume (Bld) [Entitic vol] 11.4 fL 9.0 - 12.[address] [facility] Platelets (Bld) [#/Vol] 231 10*3/uL 140 - 440 10*3/uL [facility] RBC (Bld) [#/Vol] 4.05 10*6/uL 3.80 - 5.2 0 10*6/uL [facility] WBC (Bld) [#/Vol] 12.2 10*3/uL High 3.6 - 10.7 10*3/uL [facility] CBC WITH AUTO DIFFERENTIALon 11-18-2024 Basophils (Bld) [#/Vol] 0.0 10*3/uL Normal 0.0-0.2 [facility] Comment on above: Performed By: #### L [id number] ####Dyed Yarn Operator: FREEMAN DOUGHERTY ([phone])[facility] (SBAB)[address] [place] [address] Basophils/100 WBC (Bld) 0.3 % Normal 0.0-2.0 [facility] Comment on above: Performed By: #### L [id number] ####Dyed Yarn Operator: FREEMAN DOUGHERTY ([phone])[facility] (SBHLAB)[address] Eosinophils (Bld) [#/Vol] 0.3 10*3/uL Normal 0.0-0.5 [facility] Comment on above: Performed By: #### L [id number] ####Dyed Yarn Operator: FREEMAN DOUGHERTY ([phone])[facility] (SBHLAB)[address] Eosinophils/100 WBC (Bld) 2.1 % Normal 0.0-6.0 [facility] Comment on above: Performed By: #### L [id number] ####Dyed Yarn Operator: FREEMAN SUAREZMartinaMICHAEL ([phone])[facility] (SBHLAB)[address] [place] [address] Erythrocyte distribution width (RBC) [Ratio] 14.2 % Normal 11.5-15.0 [facility] Comment on above: Performed By: #### L [id number] ####Dyed Yarn Operator: FREEMAN SUAREZMAYRA ([phone])[facility] (SBHLAB)[address] Hematocrit (Bld) [Volume fraction] 39.1 % Normal 35.0-47.0 [facility] Comment on above: Performed By: #### L [id number] ####Dyed Yarn Operator: FREEMAN FARHAT ([phone])[facility] (SBAB)[address] [place] [address] Hemoglobin (Bld) [Mass/Vol] 12.7 g/dL Normal 11.7-16.0 [facility] Comment on above: Performed By: #### L [id number] ####Dyed Yarn Operator: FREEMAN MURPHYMICHAEL ([phone])[facility] ([facility])[address] IMMATURE GRANS % 0.4 % Normal 0.0-2.0 [facility] Comment on above: Performed By: #### L [id number] ####Dyed Yarn Operator: FREEMAN MURPHYMICHAEL ([phone])[facility] ([facility])[address] IMMATURE GRANS ABSOLUTE 0.1 10*3/uL High <0.1 [facility] Comment on above: Performed By: #### L [id number] ####Dyed Yarn Operator: FREEMAN MURPHYMICHAEL ([phone])[facility] (SBAB)[address] Lymphocytes (Bld) [#/Vol] 1.2 10*3/uL Normal 1.0-4.3 [facility] Comment on above: Performed By: #### L [id number] ####Dyed Yarn Operator: FEREMAN DOUGHERTY ([phone])[facility] (SBHLAB)[address] Lymphocytes/100 WBC (Bld) 10.0 % Low 15.0-45.0 [facility] Comment on above: Performed By: #### L [id number] ####Dyed Yarn Operator: FREEMAN DOUGHERTY ([phone])[facility] (SBHLAB)[address] MCH (RBC) [Entitic mass] 31.4 pg Normal 26.0-34.0 [facility] Comment on above: Performed By: #### L [id number] ####Dyed Yarn Operator: FREEMAN DOUGHERTY ([phone])[facility] (SBHLAB)[address] [place] [address] MCHC 32.5 % Normal 30.5-36.0 [facility] Comment on above: Performed By: #### L [id number] ####Dyed Yarn Operator: FREEMAN DOUGHERTY ([phone])[facility] (SBHLAB)[address] MCV (RBC) [Entitic vol] 96.5 fL Normal 77.0-99.0 [facility] Comment on above: Performed By: #### L [id number] ####Dyed Yarn Operator: FREEMAN FARHAT ([phone])[facility] (SBHLAB)[address] Monocytes (Bld) [#/Vol] 0.7 10*3/uL Normal 0.0-0.9 [facility] Comment on above: Performed By: #### L [id number] ####Dyed Yarn Operator: FREEMAN FARHAT ([phone])[facility] (SBHLAB)[address] Monocytes/100 WBC (Bld) 5.9 % Normal 5.0-13.0 [facility] Comment on above: Performed By: #### L [id number] ####Dyed Yarn Operator: FREEMAN DOUGHERYT ([phone])[facility] [place] ([facility])[address] NEUTROPHILS ABSOLUTE 9.9 10*3/uL High 1.8-7.5 [facility] Comment on above: Performed By: #### L [id number] ####Dyed Yarn Operator: FREEMAN MURPHYMICHAEL ([phone])[facility] [place] ([facility])[address] Neutrophils/100 WBC (Bld) 81.3 % Normal 38.0-82.0 [facility] Comment on above: Performed By: #### L [id number] ####Dyed Yarn Operator: FREEMAN MURPHYMICHAEL ([phone])[facility] [place] ([facility])[address] NRBC 0.2 /100 WBCs Normal 0.0-2.0 [facility] Comment on above: Performed By: #### L [id number] ####Dyed Yarn Operator: FREEMAN DOUGHERTY ([phone])[facility] [place] ([facility])[address] Platelet mean volume (Bld) [Entitic vol] 11.4 fL Normal 9.0-12.7 [facility] Comment on above: Performed By: #### L [id number] ####Dyed Yarn Operator: FREEMAN DOUGHERTY ([phone])[facility] [place] ([facility])[address] [place] [address] [place] Platelets (Bld) [#/Vol] 231 10*3/uL Normal 140-440 [facility] Comment on above: Performed By: #### L [id number] ####Dyed Yarn Operator: FREEMAN DOUGHERTY ([phone])[facility] [place] ([facility])[address] RBC (Bld) [#/Vol] 4.05 10*6/uL Normal 3.80-5.20 [facility] Comment on above: Performed By: #### L [id number] ####Dyed Yarn Operator: FREEMAN DOUGHERTY ([phone])[facility] (SBHLAB)[address] WBC (Bld) [#/Vol] 12.2 10*3/uL High 3.6-10.7 [facility] Comment on above: Performed By: #### L [id number] ####Dyed Yarn Operator: FREEMAN DOUGHERTY ([phone])[facility] (SBHLAB)[address] Laboratory - Chemistry and C hemistry - challengeon 11-18-2024 Glucose [Mass/Vol] 199 mg/dL High 70 - 100 mg/dL [facility] Glucose [Mass/Vol] 98 mg/dL 70 - 100 mg/dL [facility] Glucose [Mass/Vol] 262 mg/dL High 70 - 100 mg/dL [facility] Glucose [Mass/Vol] 162 mg/dL High 70 - 100 mg/dL [facility] Laboratory - Microbiology an d Antimicrobial susceptibilityon 11-18-2024 Bacteria identified Cx Nom (Bld) No growth at [address] [facility] No Panel Informationon 11-18 Interpretation and review of laboratory results Abnormal [facility] Interpretation and review of laboratory results Normal [facility] Interpretation and review of laboratory results Abnormal [facility] Interpretation and review of laboratory results Abnormal [facility] Progress Noteon 11-18-2024 Progress Note Speech-Language Pathology SPEECH LANGUAGE PATHOLOGY [facility] Dysphagia Treatment Note Patient Name: Carline Villarreal Evaluation Date: 11/18/2024 Date of : 1945 Admission Date: 11/13/2024 10:39 AM Age: 78 y.o. Room/Bed: B4[facility]/B4[facility] A Subjective Patient alert and cooperative. Seen [...] textures. Plan & Recommendations Plan: Continue acute FOAM MACHINE OPERATOR therapy per initial plan of care and [...] Intervention/technique s (Progressing) Start: 11/17/24 Therapy Time FOAM MACHINE OPERATOR Individual Minutes Time In: 1022 Time Out: 1042 Minutes: 20 Herber Simmons MA, [facility]FOAM MACHINE OPERATOR [facility] Progress Note [facility], Pulmonary Medicine [address] [place] [id number] Patient - Carline Villarreal, Age - 78 y.o. - 1945 Room Number - B4-466/[id number] A Consulting - Sivakumar Walton MD Primary Care Physician - Evi Guevara Acct: No I do not have problem with the patient you know he was kind of he wanted to go home today I just kept him so Maybe can do little earlier okay [phone]- [id number] Date of Admission - 11/13/2024 10:39 AM [...] a history of dementia as per chart half-way resident, diabetes mellitus hypertension stroke Admitted with [...] PAP therapy at home Apparently came from [facility] 20 years ago Chest x-ray reviewed interpreted by me Vascular congestion with a small bilateral pleural effusion All other systems reviewed Objective Vitals: BP 113/77 (BP Location: Right arm, Patient Position: Lying) Pulse 77 Temp 36.2 ?C (97.2 ?F) (Temporal) Resp 18 Ht 5' 5" (1.651 m) Wt 210 lb (95.3 kg) [...] 20 INR PTT No results found for: "PTT" Cultures Influence pcr neg Radiology Exam Date/Time: [...] left. Additional h (more content not included)... [facility] Progress Note PHYSICAL THERAPY [facility] Name/MRN: Carline Villarreal ([id number]) Date: 11/18/2024 Chart review completed. PT attempted. Patient with family, visiting at bedside. Patient and family requests LEVERMAN return at later time for therapy. Max encouragement provided with no success. PT will continue to follow. Will re-attempt another time/date as schedule permits. Chante Pollard, ANJANA [facility] Progress Note Pt chart reviewed an d attempted to see. Pt with visitors in room, declining therapy at this time. Will continue to monitor and reattempt as schedule allows. Alba DUNLAP/Nicole [facility] 30on 11-17-2024 30 Problem: Potential f or [...] skin clean and dry Apply skin protectant [facility] BLOOD CULTUREon 11-17-2024 Bacteria identified Cx Nom (Bld) BLOOD CULTURE Reference No growth at 5 days ORDER COMMENTS: Blood Collection Site: Right Wrist [ S = SUSCEPTIBLE R = RESISTANT I = INTERMEDIATE S-DD = Susceptible-dose dependent NS = Non-susceptible NO = No Interpretation ] Normal [facility] Comment on above: Performed By: #### L [id number] #### Dyed Yarn Operator: LOLY BUI ([phone]) [facility]) [address] [place] [address] Bacteria identified Cx Nom (Bld) BLOOD CULTURE Reference No growth at 5 days ORDER COMMENTS: Blood Collection Site: Left Hand [ S = SUSCEPTIBLE R = RESISTANT I = INTERMEDIATE S-DD = Susceptible-dose dependent NS = Non-susceptible NO = No Interpretation ] Normal [facility] Comment on above: Performed By: #### L [id number] ####Dyed Yarn Operator: LOLY BUI ([phone])[facility] ([facility])[address] [place] [address] CBC W Auto Differential pane l (Bld)on 11-17-2024 Basophils (Bld) [#/Vol] 0 10*3/uL 0.0 - 0.2 10*3/uL [facility] Basophils/100 WBC (Bld) 0.3 % 0.0 - 2.0 % [facility] Eosinophils (Bld) [#/Vol] 0 10*3/uL 0.0 - 0.5 10*3/uL [facility] Eosinophils/100 WBC (Bld) 0.2 % 0.0 - 6.0 % [facility] Erythrocyte distribution width (RBC) [Ratio] 14.3 % 11.5 - 15.0 % [facility] Hematocrit (Bld) [Volume fraction] 39.1 % 35.0 - 47.0 % [facility] Hemoglobin (Bld) [Mass/Vol] 13.3 g/dL 11.7 - 16.0 g/dL [facility] Immature granulocytes (Bld) [#/Vol] 0.1 10*3/uL High NINF - 0.1 10*3/uL [facility] Immature granulocytes/100 WBC (Bld) 0.5 % 0.0 - 2.0 % [facility] Interpretation and review of laboratory results Abnormal [facility] Lymphocytes (Bld) [#/Vol] 1.5 10*3/uL 1.0 - 4.3 10*3/uL [facility] Lymphocytes/100 WBC (Bld) 10.3 % Low 15.0 - 45.0 % [facility] MCH (RBC) [Entitic mass] 32 pg 26.0 - 34.[address] [facility] MCHC (RBC) [Mass/Vol] 34 % 30.5 - 36.0 % [facility] MCV (RBC) [Entitic vol] 94.2 fL 77.0 - 99.[address] [facility] Monocytes (Bld) [#/Vol] 1.1 10*3/uL High 0.0 - 0.9 10*3/uL [facility] Monocytes/100 WBC (Bld) 7.3 % 5.0 - 13.0 % [facility] Neutrophils (Bld) [#/Vol] 11.9 10*3/uL High 1.8 - 7.5 10*3/uL [facility] Neutrophils/100 WBC (Bld) 81.4 % 38.0 - 82.0 % [facility] Nucleated RBC/100 WBC (Bld) [Ratio] 0.2 % [facility] Platelet mean volume (Bld) [Entitic vol] 11.4 fL 9.0 - 12.[address] [facility] Platelets (Bld) [#/Vol] 280 10*3/uL 140 - 440 10*3/uL [facility] RBC (Bld) [#/Vol] 4.15 10*6/uL 3.80 - 5.2 0 10*6/uL [facility] WBC (Bld) [#/Vol] 14.7 10*3/uL High 3.6 - 10.7 10*3/uL [facility] CBC WITH AUTO DIFFERENTIALon 11-17-2024 Basophils (Bld) [#/Vol] 0.0 10*3/uL Normal 0.0-0.2 [facility] Comment on above: Performed By: #### L [id number] ####Dyed Yarn Operator: FREEMAN DOUGHERTY ([phone])[facility] ([facility])[address] [place] [address] Basophils/100 WBC (Bld) 0.3 % Normal 0.0-2.0 [facility] Comment on above: Performed By: #### L [id number] ####Dyed Yarn Operator: FREEMAN MURPHYMICHAEL ([phone])[facility] [place] (SB[facility])[address] Eosinophils (Bld) [#/Vol] 0.0 10*3/uL Normal 0.0-0.5 [facility] Comment on above: Performed By: #### L [id number] ####Dyed Yarn Operator: FREEMAN MURPHYMICHAEL ([phone])[facility] (SBHLAB)[address] Eosinophils/100 WBC (Bld) 0.2 % Normal 0.0-6.0 [facility] Comment on above: Performed By: #### L [id number] ####Dyed Yarn Operator: FREEMAN FARHAT ([phone])[facility] (SBAB)[address] [place] [address] Erythrocyte distribution width (RBC) [Ratio] 14.3 % Normal 11.5-15.0 [facility] Comment on above: Performed By: #### L [id number] ####Dyed Yarn Operator: FREEMAN FARHAT ([phone])[facility] [place] [address] Hematocrit (Bld) [Volume fraction] 39.1 % Normal 35.0-47.0 [facility] Comment on above: Performed By: #### L [id number] ####Dyed Yarn Operator: FREEMAN DOUGHERTY ([phone])[facility] (SBHLAB)[address] [place] [address] Hemoglobin (Bld) [Mass/Vol] 13.3 g/dL Normal 11.7-16.0 [facility] Comment on above: Performed By: #### L [id number] ####Dyed Yarn Operator: FREEMAN DOUGHERTY ([phone])[facility] (SBHLAB)[address] [place] [address] IMMATURE GRANS % 0.5 % Normal 0.0-2.0 [facility] Comment on above: Performed By: #### L [id number] ####Dyed Yarn Operator: FREEMAN DOUGHERTY ([phone])[facility] SYSTEM[facility] A[facility] (SBHLAB)[address] IMMATURE GRANS ABSOLUTE 0.1 10*3/uL High <0.1 [facility] Comment on above: Performed By: #### L [id number] ####Dyed Yarn Operator: FREEMAN DOUGHERTY ([phone])[facility] (SBHLAB)[address] Lymphocytes (Bld) [#/Vol] 1.5 10*3/uL Normal 1.0-4.3 [facility] Comment on above: Performed By: #### L [id number] ####Dyed Yarn Operator: FREEMAN DOUGHERTY ([phone])[facility] SYSTEM[facility] (SBHLAB)[address] [place] [address] Lymphocytes/100 WBC (Bld) 10.3 % Low 15.0-45.0 [facility] Comment on above: Performed By: #### L [id number] ####Dyed Yarn Operator: FREEMAN DOUGHERTY ([phone])[facility] (SBHLAB)[address] MCH (RBC) [Entitic mass] 32.0 pg Normal 26.0-34.0 [facility] Comment on above: Performed By: #### L [id number] ####Dyed Yarn Operator: FREEMAN DOUGHERTY ([phone])[facility] (SBHLAB)[address] MCHC 34.0 % Normal 30.5-36.0 [facility] Comment on above: Performed By: #### L [id number] ####Dyed Yarn Operator: FREEMAN DOUGHERTY ([phone])[facility] (SBHLAB)[address] MCV (RBC) [Entitic vol] 94.2 fL Normal 77.0-99.0 [facility] Comment on above: Performed By: #### L [id number] ####Dyed Yarn Operator: FREEMAN DOUGHERTY ([phone])[facility] (SBHLAB)[address] Monocytes (Bld) [#/Vol] 1.1 10*3/uL High 0.0-0.9 [facility] Comment on above: Performed By: #### L [id number] ####Dyed Yarn Operator: FREEMAN DOUGHERTY ([id number])[facility] (SBHLAB)[address] Monocytes/100 WBC (Bld) 7.3 % Normal 5.0-13.0 [facility] Comment on above: Performed By: #### L [id number] ####Dyed Yarn Operator: FREEMAN DOUGHERTY ([phone])[facility] [place] ([facility])[address] NEUTROPHILS ABSOLUTE 11.9 10*3/uL High 1.8-7.5 [facility] Comment on above: Performed By: #### L [id number] ####Dyed Yarn Operator: FREEMAN DOUGHERTY ([phone])[facility] [place] ([facility])[address] Neutrophils/100 WBC (Bld) 81.4 % Normal 38.0-82.0 [facility] Comment on above: Performed By: #### L [id number] ####Dyed Yarn Operator: FREEMAN DOUGHERTY ([id number])[facility] (SBHLAB)[address] NRBC 0.2 /100 WBCs Normal 0.0-2.0 [facility] Comment on above: Performed By: #### L [id number] ####Dyed Yarn Operator: FREEMAN DOUGHERTY ([phone])[facility] [place] (SB[facility])[address] Platelet mean volume (Bld) [Entitic vol] 11.4 fL Normal 9.0-12.7 [facility] Comment on above: Performed By: #### L [id number] ####Dyed Yarn Operator: FREEMAN DOUGHERTY ([phone])[facility] (SBHLAB)[address] Platelets (Bld) [#/Vol] 280 10*3/uL Normal 140-440 [facility] Comment on above: Performed By: #### L [id number] ####Dyed Yarn Operator: FREEMAN DOUGHERTY ([phone])[facility] (SB[facility])[address] RBC (Bld) [#/Vol] 4.15 10*6/uL Normal 3.80-5.20 [facility] Comment on above: Performed By: #### L [id number] ####Dyed Yarn Operator: FREEMAN DOUGHERTY ([phone])[facility] (SBHLAB)[address] [place] [address] WBC (Bld) [#/Vol] 14.7 10*3/uL High 3.6-10.7 [facility] Comment on above: Performed By: #### L [id number] ####Dyed Yarn Operator: FREEMAN DOUGHERTY ([phone])[facility] (SBHLAB)[address] COMPREHENSIVE METABOLIC PANE Mandeep 11-17-2024 Albumin [Mass/Vol] 3.4 g/dL Normal 3.4-4.8 [facility] Comment on above: Performed By: #### L [id number] #### Dyed Yarn Operator: FREEMAN DOUGHERTY ([phone]) [facility] (SBHLAB) [address] ALP [Catalytic activity/Vol] 74 U/L Normal 40-150 [facility] Comment on above: Performed By: #### L [id number] #### Dyed Yarn Operator: FREEMAN DOUGHERTY ([phone]) [facility] (SBHLAB) [address] ALT [Catalytic activity/Vol] 51 U/L High <30 [facility] Comment on above: Performed By: #### L [id number] #### Dyed Yarn Operator: FREEMAN DOUGHERTY ([phone]) [facility] [place] (SBHLAB) [address] [place], [place] [id number] [place] [address] Anion gap [Moles/Vol] 14 mmol/L High 3-13 [facility] Comment on above: Performed By: #### L [id number] #### Dyed Yarn Operator: FREEMAN DOUGHERTY ([phone]) [facility] [place] (SB[facility]) [address] [place] [address] [place] AST [Catalytic activity/Vol] 65 U/L High <34 [facility] Comment on above: Performed By: #### L [id number] #### Dyed Yarn Operator: FREEMAN DOUGHERTY ([id number]) [facility] [place] ([facility]) [address] Bilirubin [Mass/Vol] 0.8 mg/dL Normal <1.2 [facility] Comment on above: Performed By: #### L [id number] #### Dyed Yarn Operator: FREEMAN DOUGHERTY ([phone]) [facility] [place] ([facility]) [address] Calcium [Mass/Vol] 8.3 mg/dL Low 8.8-10.0 [facility] Comment on above: Performed By: #### L [id number] #### Dyed Yarn Operator: FREEMAN DOUGHERTY ([phone]) [facility] [place] (SB[facility]) [address] [place] [address] [place] Chloride [Moles/Vol] 108 mmol/L High 98-107 [facility] Comment on above: Performed By: #### L [id number] #### Dyed Yarn Operator: FREEMAN DOUGHERTY ([phone]) [facility] [place] (SB[facility]) [address] [place] [address] [place] CO2 [Moles/Vol] 22 mmol/L Low 23-31 [facility] Comment on above: Performed By: #### L [id number] #### Dyed Yarn Operator: FREEMAN DOUGHERTY ([phone]) [facility] [place] ([facility]) [address] [place] [address] [place] Creatinine [Mass/Vol] 2.26 mg/dL High 0.57-1.11 [facility] Comment on above: Performed By: #### L [id number] #### Dyed Yarn Operator: FREEMAN DOUGHERTY ([phone]) [facility] ([facility]) [address] GLOMERULAR FILTRATION RATE ML/MIN/1.73 SQ M.PREDICTED 21.7 mL/min/1.73m*2 Low >60.0 [facility] Comment on above: Result Comment: Calc ulation based on the Chronic Kidney Disease Epidemiology Collaboration (CKD-EPI) equation refit without adjustment for race Performed By: #### L [id number] #### Dyed Yarn Operator: FREEMAN DOUGHERTY ([phone]) [facility] ([facility]) [address] Glucose [Mass/Vol] 244 mg/dL High 82-115 [facility] Comment on above: Performed By: #### L [id number] #### Dyed Yarn Operator: FREEMAN DOUGHERTY ([phone]) [facility] ([facility]) [address] Potassium [Moles/Vol] 3.2 mmol/L Low 3.5-5.1 [facility] Comment on above: Result Comment: [facility] potassium values may be up to 0.5 mmol/L lower than serum values. Performed By: #### L [id number] #### Dyed Yarn Operator: FREEMAN DOUGHERTY ([id number]) [facility] ([facility]) [address] Protein [Mass/Vol] 6.4 g/dL Normal 6.4-8.3 [facility] Comment on above: Performed By: #### L [id number] #### Dyed Yarn Operator: FREEMAN DOUGHERTY ([phone]) [facility] ([facility]) [address] Sodium [Moles/Vol] 144 mmol/L Normal 136-145 [facility] Comment on above: Performed By: #### L [id number] #### Dyed Yarn Operator: FREEMANSUGEY DOUGHERTY ([phone]) [facility] (SBHLAB) [address] Urea nitrogen [Mass/Vol] 70 mg/dL High 9- [facility] Comment on above: Performed By: #### L [id number] #### Dyed Yarn Operator: FREEMAN DOUGHERTY ([phone]) [facility] ([facility] [address] HEAD WO IV CONTRASTon CT HEAD WO IV CONTRAST Patient Name: CARLINE LUNA : 1945 Exam Date/Time: 11/17/2024 13:44 Procedure: CT HEAD [...] Signed Date/Time: 11/17/2024 2:30 PM EDT Normal [facility] CT Head WO contraston 2024 [facility] Radiology Study observation (narrative) [facility] Head WO contrastOrdered B y: Nishantpatricia Mallory on 11-17-[address] [facility] Comprehensive metabolic 1998 panelon 11-17-2024 Albumin [Mass/Vol] 3.4 g/dL 3.4 - 4.8 g/dL [facility] ALP [Catalytic activity/Vol] 74 U/L 40 - 150 U/L [facility] ALT [Catalytic activity/Vol] 51 U/L High NINF - 30 U/L [facility] Anion gap [Moles/Vol] 14 mmol/L High 3 - 13 mmol/L [facility] AST [Catalytic activity/Vol] 65 U/L High NINF - 34 U/L [facility] Bilirubin [Mass/Vol] 0.8 mg/dL NINF - 1.2 mg/dL [facility] Calcium [Mass/Vol] 8.3 mg/dL Low 8.8 - 10. 0 mg/dL [facility] Chloride [Moles/Vol] 108 mmol/L High 98 - 10 7 mmol/L [facility] CO2 [Moles/Vol] 22 mmol/L Low 23 - 31 mmol/L [facility] Creatinine [Mass/Vol] 2.26 mg/dL High 0.57 - 1.11 mg/dL [facility] GFR/1.73 sq M.predicted (S/P/Bld) [Vol rate/Area] 21.7 mL/min Low - PINF [facility] Glucose [Mass/Vol] 244 mg/dL High 82 - 115 mg/dL [facility] Interpretation and review of laboratory results Abnormal [facility] Potassium [Moles/Vol] 3.2 mmol/L Low 3.5 - 5.1 mmol/L [facility] Protein [Mass/Vol] 6.4 g/dL 6.4 - 8.3 g/dL [facility] Sodium [Moles/Vol] 144 mmol/L 136 - 145 mmol/L [facility] Urea nitrogen [Mass/Vol] 70 mg/dL High 9 - 23 mg/dL [facility] Laboratory - Chemistry and C hemistry - challengeon 11-17-2024 Glucose [Mass/Vol] 159 mg/dL High 70 - 100 mg/dL [facility] Glucose [Mass/Vol] 199 mg/dL High 70 - 100 mg/dL [facility] Glucose [Mass/Vol] 219 mg/dL High 70 - 100 mg/dL [facility] Glucose [Mass/Vol] 178 mg/dL High 70 - 100 mg/dL [facility] No Panel Informationon 11-17 Interpretation and review of laboratory results Abnormal [facility] Interpretation and review of laboratory results Abnormal [facility] Interpretation and review of laboratory results Abnormal [facility] Interpretation and review of laboratory results Abnormal [facility] Progress Noteon 11-17-2024 Progress Note Speech-Language Pathology SPEECH LANGUAGE PATHOLOGY [facility] Bedside Swallow Evaluation Patient Name: Carline Villarreal Evaluation Date: 11/17/2024 Date of : 1945 Admission Date: 11/13/2024 10:39 AM Age: 78 y.o. [facility] IMPRESSION: S/s oropharyngeal dysphagia. No [...] feeding. 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 Dysphagia History: No history of FOAM MACHINE OPERATOR services in EMR with retrospective chart review; [...] reduced curt (more content not included)... Normal [facility] Progress Note OCCUPATIONAL THERAPY [facility] & ED's Name/MRN: Carline Villarreal ([id number]) Date: 11/17/2024 Chart reviewed. Attempt to see pt for OT session. Pt sleeping upon arrival did not wake to knocking or verbal introduction, required tactile stimulation to arouse. Pt minimally verbal but declines multiple tx options for participation in therapy at this time. OT will continue to follow and re attempt to see as schedule permits. FABI Abernathy/Nicole Normal [facility] Progress Note [facility] Geriatric Medicine Inpatient Consult Service Admission [...] percocet (last received 11/15) Dementia --Lives in [place] [facility] facility --History of stroke with worsening cognitive decline. --Try to avoid anticholinergic medications --11/17: Delirious today Debility --Contributing factors include stroke, Dementia, Chronic pain, heart failure --nathan lift and use of wheelchair at baseline --PT and OT --Anticipate return to [place] when medically stable --11/17: Worsening mental/medical status [...] Subjective Chief Complaint: fall Geriatrics consulted for "confusion restless with underlying dementia with prolonged qtc" HPI- The patient is new to me but seen by the Geriatric Inpatient Consult team. 78 y.o. year-old female with past medical history of dementia, cerebral vascular disease (with left sided weakness), hypertension, CK,D, bipolar disorder, hypothyroidism, gout, migraines who was admitted to acute care from [facility] for shortness of breath/cough/hypoxia. Diagnosed with acute CHF exacerbation and EDWIGE. Cardiology following. ECHO 11/14 with EF 35%. Findings consistent with Takotsubo vs CAD. Reviewed yesterday's primary team progress note Discussed with hospitalist - Dr Sam Interval History: Ms Phil is lethargic and her speech is very difficult to understand. When asked about pain, she replied "yes". Seemed to indicate that she had a headache. She wasn't able to tell me where we are. When I pointed out her lunch tray (it looked like a few bites were eaten), she said "the food was good". I spoke with her nurse. She is [...] (98.2 ?F) (Temporal) Resp 16 Ht 5' 5" (1.651 m) Wt 210 lb (95.3 kg) [...] Effort: P (more content not included)... Normal [facility] Progress Note [facility], Pulmonary Medicine [address] [place] [address] Patient - Carline Villarreal, Age - 78 y.o. - 1945 Room Number - [id number]/[id number] A Consulting - Ni Sam MD Primary Care Physician - Evi Guevara Acct: No I do not have problem with the patient you know he was kind of he wanted to go home today I just kept him so Maybe can do little earlier okay [phone]- [id number] Date of Admission - 11/13/2024 10:39 AM [...] a history of dementia as per chart half-way resident, diabetes mellitus hypertension stroke Admitted with [...] PAP therapy at home Apparently came from [facility] 20 years ago Chest x-ray reviewed interpreted by me Vascular congestion with a small bilateral pleural effusion All other systems reviewed Objective Vitals: BP (!) 178/118 (BP Location: Left arm, Patient Position: Lying) Pulse 115 Temp 36.8 ?C (98.2 ?F) (Temporal) Resp 16 Ht 5' 5" (1.651 m) Wt 210 lb (95.3 kg) [...] 20 INR PTT No results found for: "PTT" Cultures Influence pcr neg Radiology Exam Date/Time: 11/13/2024 11:11 Procedure: XR CHEST 1 VIEW Ordering Provider: SALEEM AMY Reason For Exam: COUGH CHEST - PORTABLE: CLINICAL INDICATION: COUGH TECHNIQUE: Portable AP COMPARISON: None. IMPRESSION: FINDINGS/IMPRESSION: Limitations: Mild patient rotation Lines, tubes, and devices: None. Cardiomediastinal silhouette: Heart size is within normal limits. Atherosclerotic calcifications in (more content not included)... Normal [facility] XR Chest Single viewon 11-17 [facility] EMERGENCY [facility]PART[facility] RADIOLOGY SYSTEM [facility] Radiology Study observation (narrative) [facility] amanda 30on 11-16-2024 30 Problem: Knowledge Deficit Goal: [...] and maintained or improved Outcome: Progressing Normal [facility] 30 Problem: Potential f or Compromised Skin [...] symptoms for stability, deterioration, or improvement Normal [facility] [id number] 11-16-2024 [id number] Patient remains on 4 S for ongoing management of congestive heart failure. Anticipate discharge tomorrow back to [facility]. CM following to assist with discharge needs. Normal [facility] BASIC METABOLIC PANELon 05-1 Anion gap [Moles/Vol] 14 mmol/L High 3-13 [facility] Comment on above: Performed By: #### L [id number], LAB15 ####Dyed Yarn Operator: FREEMAN DOUGHERTY ([phone])[facility] (SBHLAB)[address] [place] [address] Calcium [Mass/Vol] 9.1 mg/dL Normal 8.8-10.0 [facility] Comment on above: Performed By: #### L [id number], LAB15 ####Dyed Yarn Operator: FREEMAN DOUGHERTY ([phone])[facility] (SBHLAB)[address] [place] [address] Chloride [Moles/Vol] 105 mmol/L Normal 98-107 [facility] Comment on above: Performed By: #### L [id number], LAB15 ####Dyed Yarn Operator: FREEMAN DOUGHERTY ([phone])[facility] SYSTEM[facility] (SBHLAB)[address] [place] [address] [place] CO2 [Moles/Vol] 23 mmol/L Normal 23-31 [facility] Comment on above: Performed By: #### L AB103, LAB15 ####Dyed Yarn Operator: FREEMAN MURPHYMICHAEL ([phone])[facility] (SBHLAB)[address] Creatinine [Mass/Vol] 1.65 mg/dL High 0.57-1.11 [facility] Comment on above: Performed By: #### L AB103, LAB15 ####Dyed Yarn Operator: FREEMAN MURPHYMICHAEL ([phone])[facility] (SBHLAB)[address] GLOMERULAR FILTRATION RATE ML/MIN/1.73 SQ M.PREDICTED 31.7 mL/min/1.73m*2 Low >60.0 [facility] Comment on above: Result Comment: Calc ulation based on the Chronic Kidney Disease Epidemiology Collaboration (CKD-EPI) equation refit without adjustment for race Performed By: #### L AB103, LAB15 ####Dyed Yarn Operator: FREEMAN MURPHYMICHAEL ([phone])[facility] (HLAB)[address] Glucose [Mass/Vol] 165 mg/dL High 82-115 [facility] Comment on above: Performed By: #### L AB103, LAB15 ####Dyed Yarn Operator: FREEMAN MURPHYMICHAEL ([phone])[facility] (SBHLAB)[address] [place] [address] [place] Potassium [Moles/Vol] 3.4 mmol/L Low 3.5-5.1 [facility] Comment on above: Result Comment: [facility] potassium values may be up to 0.5 mmol/L lower than serum values. Performed By: #### L AB103, LAB15 ####Dyed Yarn Operator: FREEMAN DOUGHERTY ([phone])[facility] (SBHLAB)[address] Sodium [Moles/Vol] 142 mmol/L Normal 136-145 [facility] Comment on above: Performed By: #### L AB103, LAB15 ####Dyed Yarn Operator: FREEMAN DOUGHERTY ([phone])[facility] (SBHLAB)[address] Urea nitrogen [Mass/Vol] 47 mg/dL High 9-23 [facility] Comment on above: Performed By: #### L AB103, LAB15 ####Dyed Yarn Operator: FREEMAN DOUGHERTY ([phone])[facility] (SBHLAB)[address] Basic metabolic 1998 panelon 11-16-2024 Anion gap [Moles/Vol] 14 mmol/L High 3 - 13 mmol/L [facility] Calcium [Mass/Vol] 9.1 mg/dL 8.8 - 10. 0 mg/dL [facility] Chloride [Moles/Vol] 105 mmol/L 98 - 10 7 mmol/L [facility] CO2 [Moles/Vol] 23 mmol/L 23 - 31 mmol/L [facility] Creatinine [Mass/Vol] 1.65 mg/dL High 0.57 - 1.11 mg/dL [facility] GFR/1.73 sq M.predicted (S/P/Bld) [Vol rate/Area] 31.7 mL/min Low - PINF [facility] Glucose [Mass/Vol] 165 mg/dL High 82 - 115 mg/dL [facility] Interpretation and review of laboratory results Abnormal [facility] Potassium [Moles/Vol] 3.4 mmol/L Low 3.5 - 5.1 mmol/L [facility] Sodium [Moles/Vol] 142 mmol/L 136 - 145 mmol/L [facility] Urea nitrogen [Mass/Vol] 47 mg/dL High 9 - 23 mg/dL [facility] CBC W Auto Differential pane l (Bld)on 11-16-2024 Basophils (Bld) [#/Vol] 0.1 10*3/uL 0.0 - 0.2 10*3/uL [facility] Basophils/100 WBC (Bld) 0.5 % 0.0 - 2.0 % [facility] Eosinophils (Bld) [#/Vol] 0.4 10*3/uL 0.0 - 0.5 10*3/uL [facility] Eosinophils/100 WBC (Bld) 3.4 % 0.0 - 6.0 % [facility] Erythrocyte distribution width (RBC) [Ratio] 14.2 % 11.5 - 15.0 % [facility] Hematocrit (Bld) [Volume fraction] 41.5 % 35.0 - 47.0 % [facility] Hemoglobin (Bld) [Mass/Vol] 14.1 g/dL 11.7 - 16.0 g/dL [facility] Immature granulocytes (Bld) [#/Vol] 0.1 10*3/uL High NINF - 0.1 10*3/uL [facility] Immature granulocytes/100 WBC (Bld) 0.4 % 0.0 - 2.0 % [facility] Interpretation and review of laboratory results Abnormal [facility] Lymphocytes (Bld) [#/Vol] 2.3 10*3/uL 1.0 - 4.3 10*3/uL [facility] Lymphocytes/100 WBC (Bld) 17.8 % 15.0 - 45.0 % [facility] MCH (RBC) [Entitic mass] 31.9 pg 26.0 - 34.[address] [facility] MCHC (RBC) [Mass/Vol] 34 % 30.5 - 36.0 % [facility] MCV (RBC) [Entitic vol] 93.9 fL 77.0 - 99.[address] [facility] Monocytes (Bld) [#/Vol] 0.8 10*3/uL 0.0 - 0.9 10*3/uL [facility] Monocytes/100 WBC (Bld) 6 % 5.0 - 13.0 % [facility] Neutrophils (Bld) [#/Vol] 9.2 10*3/uL High 1.8 - 7.5 10*3/uL [facility] Neutrophils/100 WBC (Bld) 71.9 % 38.0 - 82.0 % [facility] Nucleated RBC/100 WBC (Bld) [Ratio] 0.2 % [facility] Platelet mean volume (Bld) [Entitic vol] 10.8 fL 9.0 - 12.[address] [facility] Platelets (Bld) [#/Vol] 317 10*3/uL 140 - 440 10*3/uL [facility] RBC (Bld) [#/Vol] 4.42 10*6/uL 3.80 - 5.2 0 10*6/uL [facility] WBC (Bld) [#/Vol] 12.7 10*3/uL High 3.6 - 10.7 10*3/uL [facility] CBC WITH AUTO DIFFERENTIALon 11-16-2024 Basophils (Bld) [#/Vol] 0.1 10*3/uL Normal 0.0-0.2 [facility] Comment on above: Performed By: #### L [id number] ####Dyed Yarn Operator: FREEMAN DOUGHERTY ([phone])[facility] (SBAB)[address] [place] [address] Basophils/100 WBC (Bld) 0.5 % Normal 0.0-2.0 [facility] Comment on above: Performed By: #### L [id number] ####Dyed Yarn Operator: FREEMAN DOUGHERTY ([phone])[facility] (SBHLAB)[address] [place] [address] [place] Eosinophils (Bld) [#/Vol] 0.4 10*3/uL Normal 0.0-0.5 [facility] Comment on above: Performed By: #### L [id number] ####Dyed Yarn Operator: FREEMAN DOUGHERTY ([phone])[facility] (SBHLAB)[address] [place] [address] Eosinophils/100 WBC (Bld) 3.4 % Normal 0.0-6.0 [facility] Comment on above: Performed By: #### L [id number] ####Dyed Yarn Operator: FREEMAN DOUGHERTY ([phone])[facility] [place] (SB[facility]AB)[address] [place] [address] Erythrocyte distribution width (RBC) [Ratio] 14.2 % Normal 11.5-15.0 [facility] Comment on above: Performed By: #### L [id number] ####Dyed Yarn Operator: FREEMAN DOUGHERTY ([phone])[facility] [place] (SB[facility]AB)[address] Hematocrit (Bld) [Volume fraction] 41.5 % Normal 35.0-47.0 [facility] Comment on above: Performed By: #### L [id number] ####Dyed Yarn Operator: FREEMAN DOUGHERTY ([phone])[facility] (SBHLAB)[address] Hemoglobin (Bld) [Mass/Vol] 14.1 g/dL Normal 11.7-16.0 [facility] Comment on above: Performed By: #### L [id number] ####Dyed Yarn Operator: FREEMAN DOUGHERTY ([phone])[facility] (SBAB)[address] IMMATURE GRANS % 0.4 % Normal 0.0-2.0 [facility] Comment on above: Performed By: #### L [id number] ####Dyed Yarn Operator: FREEMAN DOUGHERTY ([phone])[facility] (SBHLAB)[address] [place] [address] IMMATURE GRANS ABSOLUTE 0.1 10*3/uL High <0.1 [facility] Comment on above: Performed By: #### L [id number] ####Dyed Yarn Operator: FREEMAN DOUGHERTY ([phone])[facility] (SBAB)[address] [place] [address] Lymphocytes (Bld) [#/Vol] 2.3 10*3/uL Normal 1.0-4.3 [facility] Comment on above: Performed By: #### L [id number] ####Dyed Yarn Operator: FREEMAN DOUGHERTY ([phone])[facility] (SBHLAB)[address] Lymphocytes/100 WBC (Bld) 17.8 % Normal 15.0-45.0 [facility] Comment on above: Performed By: #### L [id number] ####Dyed Yarn Operator: FREEMAN DOUGHERTY ([phone])[facility] (SBHLAB)[address] MCH (RBC) [Entitic mass] 31.9 pg Normal 26.0-34.0 [facility] Comment on above: Performed By: #### L [id number] ####Dyed Yarn Operator: FREEMAN MURPHYMICHAEL ([phone])[facility] [place] (SBHLAB)[address] MCHC 34.0 % Normal 30.5-36.0 [facility] Comment on above: Performed By: #### L [id number] ####Dyed Yarn Operator: FREEMAN DOUGHERTY ([phone])[facility] [place] (SB[facility]AB)[address] MCV (RBC) [Entitic vol] 93.9 fL Normal 77.0-99.0 [facility] Comment on above: Performed By: #### L [id number] ####Dyed Yarn Operator: FREEMAN DOUGHERTY ([phone])[facility] [facility] [place] ([facility])[address] Monocytes (Bld) [#/Vol] 0.8 10*3/uL Normal 0.0-0.9 [facility] Comment on above: Performed By: #### L [id number] ####Dyed Yarn Operator: FREEMAN DOUGHERTY ([phone])[facility] [place] ([facility])[address] Monocytes/100 WBC (Bld) 6.0 % Normal 5.0-13.0 S [facility] Comment on above: Performed By: #### L [id number] ####Dyed Yarn Operator: FREEMAN DOUGHERTY ([phone])[facility] [place] [facility] NEUTROPHILS ABSOLUTE 9.2 10*3/uL High 1.8-7.5 [facility] Comment on above: Performed By: #### L [id number] ####Dyed Yarn Operator: FREEMAN DOUGHERTY ([phone])[facility] [place] ([facility] Neutrophils/100 WBC (Bld) 71.9 % Normal 38.0-82.0 [facility] Comment on above: Performed By: #### L [id number] ####Dyed Yarn Operator: FREEMAN DOUGHERTY ([phone])[facility] [place] ([facility])[address] NRBC 0.2 /100 WBCs Normal 0.0-2.0 [facility] Comment on above: Performed By: #### L [id number] ####Dyed Yarn Operator: FREEMAN DOUGHERTY ([phone])[facility] [place] ([facility] Platelet mean volume (Bld) [Entitic vol] 10.8 fL Normal 9.0-12.7 [facility] Comment on above: Performed By: #### L [id number] ####Dyed Yarn Operator: FREEMAN DOUGHERTY ([phone])[facility] [place] ([facility])[address] [place] [address] [place] Platelets (Bld) [#/Vol] 317 10*3/uL Normal 140-440 [facility] Comment on above: Performed By: #### L [id number] ####Dyed Yarn Operator: FREEMAN DOUGHERTY ([phone])[facility] [place] ([facility])[address] [place] [address] [place] RBC (Bld) [#/Vol] 4.42 10*6/uL Normal 3.80-5.20 [facility] Comment on above: Performed By: #### L [id number] ####Dyed Yarn Operator: FREEMAN DOUGHERTY ([phone])[facility] [place] ([facility])[address] [place] [address] [place] WBC (Bld) [#/Vol] 12.7 10*3/uL High 3.6-10.7 [facility] Comment on above: Performed By: #### L [id number] ####Dyed Yarn Operator: FREEMAN DOUGHERTY ([phone])[facility] [place] ([facility])[address] ECG 12-LEADon 11-16-2024 ECG 12-LEAD IMPRESSION: Sinus rhythm LVH with secondary repolarization abnormality likely, ischemia cannot be ruled out Prolonged QT interval Electronically Signed On 11-16-2024 09:18:03 EDT by Williams Keller Normal [facility] Laboratory - Chemistry and C hemistry - challengeon 11-16-2024 Glucose [Mass/Vol] 128 mg/dL High 70 - 100 mg/dL [facility] Glucose [Mass/Vol] 175 mg/dL High 70 - 100 mg/dL [facility] Glucose [Mass/Vol] 147 mg/dL High 70 - 100 mg/dL [facility] Glucose [Mass/Vol] 202 mg/dL High 70 - 100 mg/dL [facility] Glucose [Mass/Vol] 181 mg/dL High 70 - 100 mg/dL [facility] Magnesium [Mass/Vol] 1.6 mg/dL 1.6 - 2 .6 mg/dL [facility] MAGNESIUMon 11-16-2024 Magnesium [Mass/Vol] 1.6 mg/dL Normal 1.6-2.6 [facility] Comment on above: Result Comment: SUKH Smith COMMENTS: Higher values can be expected in females during menses. Performed By: #### L AB103, LAB15 ####Dyed Yarn Operator: FREEMAN DOUGHERTY ([phone])[facility] VINOD[facility]IMBR[facility] HOSPITALJoe ([facility])[address] Magnesium [Mass/Vol]on 11-16 Interpretation and review of laboratory results Normal [facility] No Panel Informationon 11-16 Interpretation and review of laboratory results Abnormal [facility] Interpretation and review of laboratory results Abnormal [facility] Interpretation and review of laboratory results Abnormal [facility] Interpretation and review of laboratory results Abnormal [facility] CV EPIPHANY [facility] Interpretation and review of laboratory results Abnormal [facility] No Panel InformationOrdered By: Williams Keller on 11-16-2024 P [place] 47 degrees [facility] [employer] Work Phone: VA Interval 172 ms [facility] Work Phone: QRS [place] 44 degrees Float: [place] Phone: QRSD Interval 94 ms [facility] Work Phone: QT Interval 464 ms [facility] [employer] Work Phone: QTC Interval 566 ms [facility] anywayanyday Phone: T Wave [place] 210 degrees Float: [place] Phone: Float: [place] Phone: Nursing Noteon 11-16-2024 Nursing Note Noted this shift pt had some some coughing after she ate her lunch and a small emesis. made aware, speech therapy consult placed. Pt reassessed airway and breathing NNO at this time status unchanged from previous assessments. Normal [facility] [employer] [facility] Progress Noteon 11-16-2024 Progress Note [facility] Geriatric Medicine Inpatient Consult Service Admission Date: 11/13/2024 Assessment Principal Problem: Acute exacerbation of chronic heart failure (HCC) Plan Dementia --Lives in [place] of [facility] facility --History of stroke with worsening [...] baseline --PT and OT --Anticipate return to [place] --11/16: Stable. Therapy recommends SNF. Bipolar Disorder [...] you Subjective Chief Complaint: where are the dean" Geriatrics consulted for "confusion restless with underlying dementia with prolonged qtc" HPI- The patient is known to me. 78 y.o. year-old female with PMH of DM, stroke with left sided weakness, HTN, CKD, hypothyroidism, Bipolar disorder, Gout, Migraines, Dementia presented to [facility] from nursing facility on 11/13/24 with complaints [...] said he sold dean, where are the dean?". Unable to states where she is. Denies [...] (96.5 ?F) (Temporal) Resp 20 Ht 5' 5" (1.651 m) Wt 210 lb (95.3 kg) [...] ms QTC (more content not included)... Normal [facility] Progress Note OCCUPATIONAL THERAPY [facility] Treatment Note Name/MRN: Carline Villarreal ([id number]) Date of : 1945 Age: 78 y.o. Room/Bed: B4466/B4466 A Visit #: 1 out of 7 visits Discharge Recommendation: [facility] Facility Equipment Needed: No Assessment Pt tolerated [...] 0950 Minutes (more content not included)... Normal [facility] Progress Note [facility], Pulmonary Medicine [address] [facility] [address] Patient - Carline Villarreal, Age - 78 y.o. - 1945 Room Number - [id number]/[id number] A Consulting - Ni Sam MD Primary Care Physician - Evi Guevara Acct: No I do not have problem with the patient you know he was kind of he wanted to go home today I just kept him so Maybe can do little earlier okay [phone]- [id number] Date of Admission - 11/13/2024 10:39 AM [...] a history of dementia as per chart half-way resident, diabetes mellitus hypertension stroke Admitted with [...] PAP therapy at home Apparently came from [facility] 20 years ago Chest x-ray reviewed interpreted by me Vascular congestion with a small bilateral pleural effusion All other systems reviewed Objective Vitals: BP 150/94 Pulse 96 Temp 36.4 ?C (97.5 ?F) (Temporal) Resp 16 Ht 5' 5" (1.651 m) Wt 210 lb (95.3 kg) SpO2 97% BMI 34.95 kg/m? Pulse Ox: SpO2 Av.6 % Min: 91 % Max: 99 % Supplemental O2: O2 Flow Rate (L/min): 2 L/min I/O 24HR INTAKE/OUTPUT: Intake/Output Summary (Last 24 hours) at 11/16/2024 0792 Last data filed at 11/15/2024 1814 Gross [...] 20 INR PTT No results found for: "PTT" Cultures Influence pcr neg Radiology Exam Date/Time: [...] and streaky (more content not included)... Normal [facility] Vital signsOrdered By: Lawrence more Varian on 11-16-2024 Heart rate 89 /min bpm [facility] Work Phone: 30on 11-15-2024 30 progressing Normal [facility] BASIC METABOLIC PANELon 11-02 Anion gap [Moles/Vol] 15 mmol/L High 3-13 [facility] Comment on above: Performed By: #### L AB67, DPG209, LAB15, FXO138, [id number] ####Dyed Yarn Operator: FREEMAN DOUGHERTY ([phone])[facility] ([facility])[address] Calcium [Mass/Vol] 9.2 mg/dL Normal 8.8-10.0 [facility] Comment on above: Performed By: #### L AB67, [id number], LAB15, NZA240, [id number] ####Dyed Yarn Operator: FREEMAN DOUGHERTY ([phone])[facility] ([facility])[address] Chloride [Moles/Vol] 107 mmol/L Normal 98-107 [facility] Comment on above: Performed By: #### L AB67, HNM677, LAB15, RML256, [id number] ####Dyed Yarn Operator: FREEMAN DOUGHERTY ([phone])[facility] ([facility])[address] CO2 [Moles/Vol] 22 mmol/L Low 23-31 [facility] Comment on above: Performed By: #### L AB67, FHA377, LAB15, ATB745, [id number] ####Dyed Yarn Operator: FREEMAN DOUGHERTY ([phone])[facility] ([facility])[address] Creatinine [Mass/Vol] 1.56 mg/dL High 0.57-1.11 [facility] Comment on above: Performed By: #### L AB67, HBH816, LAB15, NUY863, [id number] ####Dyed Yarn Operator: FREEMAN DOUGHERTY ([phone])[facility] ([facility])[address] GLOMERULAR FILTRATION RATE ML/MIN/1.73 SQ M.PREDICTED 33.9 mL/min/1.73m*2 Low >60.0 [facility] Comment on above: Result Comment: Calc ulation based on the Chronic Kidney Disease Epidemiology Collaboration (CKD-EPI) equation refit without adjustment for race Performed By: #### L AB67, LHL249, LAB15, FEZ431, [id number] ####Dyed Yarn Operator: FREEMAN DOUGHERTY ([phone])[facility] ([facility])[address] Glucose [Mass/Vol] 169 mg/dL High 82-115 [facility] Comment on above: Performed By: #### L AB67, EJJ858, LAB15, VAO140, [id number] ####Dyed Yarn Operator: FREEMAN DOUGHERTY ([phone])[facility] ([facility])[address] Potassium [Moles/Vol] 3.3 mmol/L Low 3.5-5.1 [facility] Comment on above: Result Comment: [facility] potassium values may be up to 0.5 mmol/L lower than serum values. Performed By: #### L AB67, XWF407, LAB15, RIG650, [id number] ####Dyed Yarn Operator: FREEMAN DOUGHERTY ([phone])[facility] ([facility])[address] Sodium [Moles/Vol] 144 mmol/L Normal 136-145 [facility] Comment on above: Performed By: #### L AB67, YXT758, LAB15, ZPQ825, [id number] ####Dyed Yarn Operator: FREEMAN DOUGHERTY ([phone])[facility] ([facility])[address] Urea nitrogen [Mass/Vol] 40 mg/dL High 9-23 [facility] Comment on above: Performed By: #### L AB67, VTA099, LAB15, BUP629, [id number] ####Dyed Yarn Operator: FREEMAN DOUGHERTY ([phone])[facility] ([facility])[address] Basic metabolic 1998 panelon 11-15-2024 Anion gap [Moles/Vol] 15 mmol/L High 3 - 13 mmol/L [facility] Calcium [Mass/Vol] 9.2 mg/dL 8.8 - 10. 0 mg/dL [facility] Chloride [Moles/Vol] 107 mmol/L 98 - 10 7 mmol/L [facility] CO2 [Moles/Vol] 22 mmol/L Low 23 - 31 mmol/L [facility] Creatinine [Mass/Vol] 1.56 mg/dL High 0.57 - 1.11 mg/dL [facility] GFR/1.73 sq M.predicted (S/P/Bld) [Vol rate/Area] 33.9 mL/min Low - PINF [facility] Glucose [Mass/Vol] 169 mg/dL High 82 - 115 mg/dL [facility] Interpretation and review of laboratory results Abnormal [facility] Potassium [Moles/Vol] 3.3 mmol/L Low 3.5 - 5.1 mmol/L [facility] Sodium [Moles/Vol] 144 mmol/L 136 - 145 mmol/L [facility] Urea nitrogen [Mass/Vol] 40 mg/dL High 9 - 23 mg/dL [facility] CBC W Auto Differential pane l (Bld)on 11-15-2024 Basophils (Bld) [#/Vol] 0.1 10*3/uL 0.0 - 0.2 10*3/uL [facility] Basophils/100 WBC (Bld) 0.5 % 0.0 - 2.0 % [facility] Eosinophils (Bld) [#/Vol] 0.5 10*3/uL 0.0 - 0.5 10*3/uL [facility] Eosinophils/100 WBC (Bld) 3.5 % 0.0 - 6.0 % [facility] Erythrocyte distribution width (RBC) [Ratio] 14.1 % 11.5 - 15.0 % [facility] Hematocrit (Bld) [Volume fraction] 40.9 % 35.0 - 47.0 % [facility] Hemoglobin (Bld) [Mass/Vol] 13.8 g/dL 11.7 - 16.0 g/dL [facility] Immature granulocytes (Bld) [#/Vol] 0 10*3/uL NINF - 0.1 10*3/uL [facility] Immature granulocytes/100 WBC (Bld) 0.3 % 0.0 - 2.0 % [facility] Interpretation and review of laboratory results Abnormal [facility] Lymphocytes (Bld) [#/Vol] 2.4 10*3/uL 1.0 - 4.3 10*3/uL [facility] Lymphocytes/100 WBC (Bld) 16.2 % 15.0 - 45.0 % [facility] MCH (RBC) [Entitic mass] 31.2 pg 26.0 - 34.[address] [facility] MCHC (RBC) [Mass/Vol] 33.7 % 30.5 - 36.0 % [facility] MCV (RBC) [Entitic vol] 92.5 fL 77.0 - 99.[address] [facility] Monocytes (Bld) [#/Vol] 0.9 10*3/uL 0.0 - 0.9 10*3/uL [facility] Monocytes/100 WBC (Bld) 5.7 % 5.0 - 13.0 % [facility] Neutrophils (Bld) [#/Vol] 11.1 10*3/uL High 1.8 - 7.5 10*3/uL [facility] Neutrophils/100 WBC (Bld) 73.8 % 38.0 - 82.0 % [facility] Nucleated RBC/100 WBC (Bld) [Ratio] 0 % [facility] Platelet mean volume (Bld) [Entitic vol] 10.7 fL 9.0 - 12.[address] [facility] Platelets (Bld) [#/Vol] 308 10*3/uL 140 - 440 10*3/uL [facility] RBC (Bld) [#/Vol] 4.42 10*6/uL 3.80 - 5.2 0 10*6/uL [facility] WBC (Bld) [#/Vol] 15 10*3/uL High 3.6 - 10.7 10*3/uL [facility] CBC WITH AUTO DIFFERENTIALon 11-15-2024 Basophils (Bld) [#/Vol] 0.1 10*3/uL Normal 0.0-0.2 [facility] Comment on above: Performed By: #### L [id number] ####Dyed Yarn Operator: FREEMAN DOUGHERTY ([phone])[facility] [place] ([facility])[address] [place] [address] Basophils/100 WBC (Bld) 0.5 % Normal 0.0-2.0 [facility] Comment on above: Performed By: #### L [id number] ####Dyed Yarn Operator: FREEMAN DOUGHERTY ([phone])[facility] [place] ([facility])[address] [place] [address] Eosinophils (Bld) [#/Vol] 0.5 10*3/uL Normal 0.0-0.5 [facility] Comment on above: Performed By: #### L [id number] ####Dyed Yarn Operator: FREEMAN DOUGHERTY ([phone])[facility] [place] ([facility])[address] [place] [address] Eosinophils/100 WBC (Bld) 3.5 % Normal 0.0-6.0 [facility] Comment on above: Performed By: #### L [id number] ####Dyed Yarn Operator: FREEMAN DOUGHERTY ([phone])[facility] [place] ([facility])[address] [place] [address] Erythrocyte distribution width (RBC) [Ratio] 14.1 % Normal 11.5-15.0 [facility] Comment on above: Performed By: #### L [id number] ####Dyed Yarn Operator: FREEMAN DOUGHERTY ([phone])[facility] [place] ([facility])[address] Hematocrit (Bld) [Volume fraction] 40.9 % Normal 35.0-47.0 [facility] Comment on above: Performed By: #### L [id number] ####Dyed Yarn Operator: FREEMAN DOUGHERTY ([phone])[facility] ([facility])[address] Hemoglobin (Bld) [Mass/Vol] 13.8 g/dL Normal 11.7-16.0 [facility] Comment on above: Performed By: #### L [id number] ####Dyed Yarn Operator: FREEMAN DOUGHERTY ([phone])[facility] ([facility])[address] IMMATURE GRANS % 0.3 % Normal 0.0-2.0 [facility] Comment on above: Performed By: #### L [id number] ####Dyed Yarn Operator: FREEMAN DOUGHERTY ([phone])[facility] ([facility])[address] [place] [address] IMMATURE GRANS ABSOLUTE 0.0 10*3/uL Normal <0.1 [facility] Comment on above: Performed By: #### L [id number] ####Dyed Yarn Operator: FREEMAN DOUGHERTY ([phone])[facility] ([facility])[address] [place] [address] Lymphocytes (Bld) [#/Vol] 2.4 10*3/uL Normal 1.0-4.3 [facility] Comment on above: Performed By: #### L [id number] ####Dyed Yarn Operator: FREEMAN DOUGHERTY ([phone])[facility] ([facility])[address] [place] [address] [place] Lymphocytes/100 WBC (Bld) 16.2 % Normal 15.0-45.0 [facility] Comment on above: Performed By: #### L [id number] ####Dyed Yarn Operator: FREEMAN DOUGHERTY ([phone])[facility] [place] ([facility])[address] MCH (RBC) [Entitic mass] 31.2 pg Normal 26.0-34.0 [facility] Comment on above: Performed By: #### L [id number] ####Dyed Yarn Operator: FREEMAN DOUGHERTY ([phone])[facility] SYSTEM[facility] [place] ([facility])[address] MCHC 33.7 % Normal 30.5-36.0 [facility] Comment on above: Performed By: #### L [id number] ####Dyed Yarn Operator: FREEMAN DOUGHERTY ([phone])[facility] [place] ([facility])[address] MCV (RBC) [Entitic vol] 92.5 fL Normal 77.0-99.0 [facility] Comment on above: Performed By: #### L [id number] ####Dyed Yarn Operator: FREEMAN DOUGHERTY ([phone])[facility] [place] ([facility])[address] Monocytes (Bld) [#/Vol] 0.9 10*3/uL Normal 0.0-0.9 [facility] Comment on above: Performed By: #### L [id number] ####Dyed Yarn Operator: FREEMAN DOUGHERTY ([phone])[facility] [place] ([facility])[address] Monocytes/100 WBC (Bld) 5.7 % Normal 5.0-13.0 [facility] Comment on above: Performed By: #### L [id number] ####Dyed Yarn Operator: FREEMAN DOUGHERTY ([phone])[facility] [place] ([facility])[address] NEUTROPHILS ABSOLUTE 11.1 10*3/uL High 1.8-7.5 [facility] Comment on above: Performed By: #### L [id number] ####Dyed Yarn Operator: FREEMAN DOUGHERTY ([phone])[facility] ([facility])[address] Neutrophils/100 WBC (Bld) 73.8 % Normal 38.0-82.0 [facility] Comment on above: Performed By: #### L [id number] ####Dyed Yarn Operator: FREEMAN DOUGHERTY ([phone])[facility] SYSTEM[facility] ([facility])[address] NRBC 0.0 /100 WBCs Normal 0.0-2.0 [facility] Comment on above: Performed By: #### L [id number] ####Dyed Yarn Operator: FREEMAN DOUGHERTY ([phone])[facility] ([facility])[address] Platelet mean volume (Bld) [Entitic vol] 10.7 fL Normal 9.0-12.7 [facility] Comment on above: Performed By: #### L [id number] ####Dyed Yarn Operator: FREEMAN DOUGHERTY ([phone])[facility] SYSTEM[facility] ([facility])[address] Platelets (Bld) [#/Vol] 308 10*3/uL Normal 140-440 [facility] Comment on above: Performed By: #### L [id number] ####Dyed Yarn Operator: FREEMAN DOUGHERTY ([phone])[facility] [place] ([facility])[address] [place] [address] [place] RBC (Bld) [#/Vol] 4.42 10*6/uL Normal 3.80-5.20 [facility] Comment on above: Performed By: #### L [id number] ####Dyed Yarn Operator: FREEMAN DOUGHERTY ([phone])[facility] ([facility])[address] [place] [address] [place] WBC (Bld) [#/Vol] 15.0 10*3/uL High 3.6-10.7 [facility] Comment on above: Performed By: #### L [id number] ####Dyed Yarn Operator: FREEMAN DOUGHERTY ([phone])[facility] ([facility])[address] [place] [id number] [facility] Consulton 11-15-2024 Consult [facility] Geriatric Medicine Inpatient Consult Service Admission Date: 11/13/2024 Admission Status: INPATIENT Chief Complaint: fall Reason for Appointment Geriatrics consulted for "confusion restless with underlying dementia with prolonged qtc" Assessment & Plan Principal Problem: Acute exacerbation of chronic heart failure (HCC) Dementia --Lives in [place] of [facility] --History of stroke with worsening cognitive [...] and OT eval pending. --Anticipate return to [place] Bipolar Disorder Anxiety --takes Lexapro 5mg daily [...] Bipolar disorder, Gout, Migraines, Dementia presented to [facility] from nursing facility on 11/13/24 with complaints [...] privacy Patient with Constant Observation: Monitored Room chef manager completed: Pt deemed to not be an elopement risk Nursing Delirium Screen (Nu-Desc): Nursing Delirium Symptom Checklist Total Score: 1 Conversation with patient: -Reports breathing is ok. States she has pain in both knees and left hip. Slept ok - says she was told last night "go to sleep". She knows she is in the hospital and states she is here due to a fall. Not able to state where she lives. Conversation with caregiver: Rosas son. -Lives in [facility]. Difficult to obtain history from her [...] this. Advance Care Planning Healthcare Power of Retail Clerk: Yes, Rosas son Code Status: DNR-CCA Allergies[1] Current Medications[2] Medical History[3] Surgical History[4] Social History Tobacco Use Smoking status: Some Days Types: Cigarettes Smokeless tobacco: Not on file Substan (more content not included)... Normal [facility] ECG 12-LEADon 11-15-2024 ECG 12-LEAD IMPRESSION: Sinus rhythm Ventricular tachycardia, unsustained LVH with secondary repolarization abnormality Abnormal T, consider ischemia, diffuse leads Prolonged QT interval Electronically Signed On 11-15-2024 11:36:17 EDT by Mary Bravo Normal [facility] Laboratory - Chemistry and C hemistry - challengeon 11-15-2024 Glucose [Mass/Vol] 171 mg/dL High 70 - 100 mg/dL [facility] Glucose [Mass/Vol] 173 mg/dL High 70 - 100 mg/dL [facility] Cobalamin (Vitamin B12) [Mass/Vol] 310 pg/mL 213 - 816 pg/mL [facility] TSH Qn 3.36 m[IU]/L [facility] Procalcitonin [Mass/Vol] 0.08 ng/mL High NINF - 0.07 ng/mL [facility] Glucose [Mass/Vol] 160 mg/dL High 70 - 100 mg/dL [facility] Glucose [Mass/Vol] 233 mg/dL High 70 - 100 mg/dL [facility] Magnesium [Mass/Vol] 1.4 mg/dL Low 1.6 - 2 .6 mg/dL [facility] MAGNESIUMon 11-15-2024 Magnesium [Mass/Vol] 1.4 mg/dL Low 1.6-2.6 [facility] Comment on above: Result Comment: SUKH Smith COMMENTS: Higher values can be expected in females during menses. Performed By: #### L AB67, JJC315, LAB15, EYM562, [id number] ####Dyed Yarn Operator: FREEMAN DOUGHERTY ([phone])[facility])[address] [place] [address] Magnesium [Mass/Vol]on 05-14 -2025 Interpretation and review of laboratory results Abnormal [facility] No Panel Informationon 11-15 Interpretation and review of laboratory results Abnormal [facility] Interpretation and review of laboratory results Abnormal [facility] Interpretation and review of laboratory results Normal [facility] CV EPIPHANY [facility] Interpretation and review of laboratory results Abnormal [facility] Interpretation and review of laboratory results Abnormal [facility] No Panel InformationOrdered By: Mary Bravo on 11-15-2024 P [place] 43 degrees [facility] Work Phone: VA Interval 190 ms [employer] Work Phone: QRS [place] 14 degrees [employer] Work Phone: QRSD Interval 92 ms [employer] Work Phone: QT Interval 406 ms [employer] Work Phone: QTC Interval 508 ms [employer] Work Phone: T Wave [place] 201 degrees [employer] Work Phone: [employer] Work Phone: PROCALCITONIN TESTon 025 PROCALCITONIN 0.08 ng/mL High <0.07 [employer] [facility] Comment on above: Result Comment: SUKH R COMMENTS: PCT <0.50 = Low risk of severe sepsis and/or septic shock. PCT >2.00 = High risk of severe sepsis and/or septic shock. Performed By: #### L AB67, [id number], LAB15, [id number], [id number] ####Dyed Yarn Operator: FREEMAN DOUGHERTY ([phone])[facility] (SBAB)[address] [place] [address] Procalcitonin [Mass/Vol]on 0 11-15-2024 Interpretation and review of laboratory results Abnormal [facility] Progress Noteon 11-15-2024 Progress Note PHYSICAL THERAPY [facility] Name/MRN: Carline Villarreal ([id number]) Date: 11/15/2024 PT order received and chart reviewed. SPT and PT presented to room and introduced self/role. Pt with intermittent SOB at rest. SpO2 99% on room air. Pt reported mid sternal chest pain and dizziness. RN notified immediately. Reports BP high and plan for EKG. Will await results/medical stability prior to therapy eval. Rosalie Jacob, SPT Normal [facility] Progress Note Nutrition rescreen completed. Chart reviewed. Patient to be monitored and followed by the diet hardware technician. Normal [facility] Progress Note [facility], Pulmonary Medicine [address] [place] [id number] Patient - Carline Villarreal, Age - 78 y.o. - 1945 Room Number - [id number]/[id number] A Consulting - Ni Sam MD Primary Care Physician - Evi Guevara Acct: No I do not have problem with the patient you know he was kind of he wanted to go home today I just kept him so Maybe can do little earlier okay 7- [id number] Date of Admission - 11/13/2024 10:39 AM [...] a history of dementia as per chart half-way resident, diabetes mellitus hypertension stroke Admitted with [...] PAP therapy at home Apparently came from [facility] 20 years ago Chest x-ray reviewed interpreted by me Vascular congestion with a small bilateral pleural effusion All other systems reviewed Objective Vitals: BP (!) 174/101 (BP Location: Right arm, Patient Position: Lying) Pulse 98 Temp 36.1 ?C (97 ?F) (Temporal) Resp 17 Ht 5' 5" (1.651 m) Wt 210 lb (95.3 kg) [...] 20 INR PTT No results found for: "PTT" Cultures Influence pcr neg Radiology Exam Date/Time: 11/13/2024 11:11 Procedure: XR CHEST 1 VIEW Ordering Provider: SALEEM AMY Reason For Exam: COUGH CHEST - PORTABLE: CLINICAL INDICATION: COUGH TECHNIQUE: Portable AP COMPARISON: None. IMPRESSION: FINDINGS/IMPRESSION: Limitations: Mild patient rotation Lines, tubes, and devices: None. Cardiomediastinal silhouette: Heart size is within normal limits. Atherosclerotic calcifications in the thorac (more content not included)... Normal [facility] THYROID STIMULATING HORMONEo n 11-15-2024 THYROID STIMULATING HORMONE 3.36 uIU/mL Normal 0.35-4.94 [facility] Comment on above: Performed By: #### L AB67, [id number], LAB15, EUG970, [id number] ####Dyed Yarn Operator: FREEMAN DOUGHERTY ([phone])[facility] (SBHLAB)[address] [place] [address] VITAMIN B12on 11-15-2024 Cobalamin (Vitamin B12) [Mass/Vol] 310 pg/mL Normal 213-816 [facility] Comment on above: Performed By: #### L AB67, BUD391, LAB15, AIQ556, [id number] ####Dyed Yarn Operator: FREEMAN DOUGHERTY ([phone])[facility] (SBHLAB)[address] [place] [address] Vital signsOrdered By: [place] Bravo on 11-15-2024 Heart rate 104 /min bpm Float: [place] Phone: XR CHEST 1 VIEWon 11-15-2024 XR CHEST 1 VIEW Patient Name: CARLINE VILLARREAL : 1945 [facility]#: [id number] Exam Date/Time: 11/15/2024 08:00 Procedure: XR CHEST [...] c/o wheezing sob; follow up effusion Normal [facility] XR Chest Single viewon 11-15 [facility] EM[facility] RADIOLOGY [facility] RADIOLOGY [facility] Radiology Study observation (narrative) [facility] XR Chest Single viewOrdered By: Cee Lewis on 11-15-2024 Float: [place] Phone: 30on 11-14-2024 30 Problem: Knowledge Deficit Goal: Patient/family/caregiv er demonstrates understanding of disease process, treatment plan, medications, and discharge instructions Outcome: Progressing Problem: Potential for Compromised Skin Integrity Goal: Skin Integrity is Maintained or Improved Outcome: Progressing Goal: Nutritional status is improving Outcome: Progressing Normal [facility] 30 Problem: Knowledge Deficit Goal: Patient/family/caregiv er [...] integrity is maintained or improved Outcome: Progressing [facility] [id number] 11-14-2024 [id number] While rounding asked to assess pt for tachycardia 100-180. VS stable no c/o CP. EKG changes. Dr. Franz and Dr. Hinton notified via secure chat. See cardiology note [facility] [id number] 11-14-2024 [id number] Patient arrives via EMS from [facility] at 76% on room air. EMS placed patient on BIPAP during transport. Patient currently receiving IV zosyn, and vancomycin. Consults to Cardiology, Pulmonology, Palliative and Geriatrics, and PT/OT. Anticipate patient will return to [place]- return referral sent. No authorization needed to return. CM following to assist with discharge needs. [facility] [id number] [facility] Palliative Care Transitions of Care Note Carline Villarreal : 1945 ADMIT DATE: 11/13/2024 DISCHARGE DATE: TBD PRIMARY CARE PHYSICIAN: Evi Guevara CODE STATUS: DNR-CCA DISCHARGE DIAGNOSES: Principal Problem: Pneumonia of both lower lobes due to infectious organism HOSPITAL COURSE: Carline Villarreal is a 78 y.o. female from [facility] with PMHx of HFpEF, DM 2, Stroke with left hemiparesis, hypertension who was admitted to [facility] on 11/13 for SOB. Patient reportedly had saturation of 76 % on RA at [facility]. When EMS first arrived, she was placed [...] and encephalopathy. -legal surrogate decision maker is Rosas arredondo (Phone: [phone]) - patient has 2 children 1 son [...] they want patient to go back to [place] for PT/OT - Rosas stated that they [...] Vickie Parra MD 11/14/2024, 10:06 AM Normal [facility] BASIC METABOLIC PANELon 11-02 Anion gap [Moles/Vol] 13 mmol/L Normal - [facility] Comment on above: Performed By: #### L AB15 ####Dyed Yarn Operator: FREEMAN DOUGHERTY ([phone])[facility] [place] ([facility])[address] Calcium [Mass/Vol] 9.6 mg/dL Normal 8.8-10.0 [facility] Comment on above: Performed By: #### L AB15 ####Dyed Yarn Operator: FREEMAN DOUGHERTY ([phone])[facility] [place] ([facility])[address] Chloride [Moles/Vol] 105 mmol/L Normal 98-107 [facility] Comment on above: Performed By: #### L AB15 ####Dyed Yarn Operator: FREEMAN DOUGHERTY ([phone])[facility] [place] ([facility])[address] [place] [address] [place] CO2 [Moles/Vol] 21 mmol/L Low 23-31 [facility] Comment on above: Performed By: #### L AB15 ####Dyed Yarn Operator: FREEMAN DOUGHERTY ([phone])[facility] [place] ([facility])[address] Creatinine [Mass/Vol] 1.37 mg/dL High 0.57-1.11 [facility] Comment on above: Performed By: #### L AB15 ####Dyed Yarn Operator: FREEMAN DOUGHERTY ([phone])[facility] [place] ([facility])[address] [place] [address] [place] GLOMERULAR FILTRATION RATE ML/MIN/1.73 SQ M.PREDICTED 39.6 mL/min/1.73m*2 Low >60.0 [facility] Comment on above: Result Comment: Calc ulation based on the Chronic Kidney Disease Epidemiology Collaboration (CKD-EPI) equation refit without adjustment for race Performed By: #### L AB15 ####Dyed Yarn Operator: FREEMAN DOUGHERTY ([phone])[facility] [place] ([facility])[address] Glucose [Mass/Vol] 248 mg/dL High 82-115 [facility] Comment on above: Performed By: #### L AB15 ####Dyed Yarn Operator: FREEMAN DOUGHERTY ([phone])[facility] (SBHLAB)[address] Potassium [Moles/Vol] 3.6 mmol/L Normal 3.5-5.1 [facility] Comment on above: Result Comment: [facility] potassium values may be up to 0.5 mmol/L lower than serum values. Performed By: #### L AB15 ####Dyed Yarn Operator: FREEMAN DOUGHERTY ([phone])[facility] (SBHLAB)[address] Sodium [Moles/Vol] 139 mmol/L Normal 136-145 [facility] Comment on above: Performed By: #### L AB15 ####Dyed Yarn Operator: FREEMAN DOUGHERTY ([phone])[facility] (SBHLAB)[address] Urea nitrogen [Mass/Vol] 32 mg/dL High 9-23 [facility] Comment on above: Performed By: #### L AB15 ####Dyed Yarn Operator: FREEMAN DOUGHERTY ([phone])[facility] (SBHLAB)[address] Basic Metabolic Profile (BMP )on 11-14-2024 BUN Normal 4-19 [facility] Comment on above: Order Comment: 303.2 Result Comment: [facility] Performed By: #### L 501.9520, L500.4050, L501.9985, L500.4100, L100.0500 #### [facility] [address] [place], [place], [id number] BUN/CRE Normal 10-20 [facility] Comment on above: Order Comment: 303.2 Result Comment: [facility] Performed By: #### L 501.9520, L500.4050, L501.9985, L500.4100, L100.0500 #### [facility] [address] [place], [address] Calcium Normal 7.6-11.0 [facility] Comment on above: Order Comment: 303.2 Result Comment: [facility] Performed By: #### L 501.9520, L500.4050, L501.9985, L500.4100, L100.0500 #### [facility] [address] [place], [address] CL Normal 98-108 [facility] Comment on above: Order Comment: 303.2 Result Comment: [facility] Performed By: #### L 501.9520, L500.4050, L501.9985, L500.4100, L100.0500 #### [facility] [address] [place], [address] CO2 Normal 21.0-32.0 [facility] Comment on above: Order Comment: 303.2 Result Comment: [facility] Performed By: #### L 501.9520, L500.4050, L501.9985, L500.4100, L100.0500 #### [facility] [address] [place], [address] CREAT,SERUM Normal 0.70-1.20 [facility] Comment on above: Order Comment: 303.2 Result Comment: [facility] Performed By: #### L 501.9520, L500.4050, L501.9985, L500.4100, L100.0500 #### [facility] [address] [place], [address] eGFR Normal >60 [facility] Comment on above: Order Comment: 303.2 Result Comment: [facility] Performed By: #### L 501.9520, L500.4050, L501.9985, L500.4100, L100.0500 #### [facility] [address] [place], [address] GAP Normal 5-15 [facility] Comment on above: Order Comment: 303.2 Result Comment: [facility] Performed By: #### L 501.9520, L500.4050, L501.9985, L500.4100, L100.0500 #### [facility] [address] [place], [address] GLU Normal 70-99 [facility] Comment on above: Order Comment: 303.2 Result Comment: [facility] Performed By: #### L 501.9520, L500.4050, L501.9985, L500.4100, L100.0500 #### [facility] [address] [place], [address] Potassium Normal 3.3-5.1 [facility] Comment on above: Order Comment: 303.2 Result Comment: [facility] Performed By: #### L 501.9520, L500.4050, L501.9985, L500.4100, L100.0500 #### [facility] [address] [place], [address] Basic Metabolic Profile (BMP) Normal 133-145 [facility] Comment on above: Order Comment: 303.2 Result Comment: [facility] Performed By: #### L [id number], L500.4050, L501.9985, L500.4100, L100.0500 #### [facility] [address] [place], [address] Basic metabolic 1998 panelon 11-14-2024 Anion gap [Moles/Vol] 13 mmol/L 3 - 13 mmol/L [facility] Calcium [Mass/Vol] 9.6 mg/dL 8.8 - 10. 0 mg/dL [facility] Chloride [Moles/Vol] 105 mmol/L 98 - 10 7 mmol/L [facility] CO2 [Moles/Vol] 21 mmol/L Low 23 - 31 mmol/L [facility] Creatinine [Mass/Vol] 1.37 mg/dL High 0.57 - 1.11 mg/dL [facility] GFR/1.73 sq M.predicted (S/P/Bld) [Vol rate/Area] 39.6 mL/min Low - PINF [facility] Glucose [Mass/Vol] 248 mg/dL High 82 - 115 mg/dL [facility] Interpretation and review of laboratory results Abnormal [facility] Potassium [Moles/Vol] 3.6 mmol/L 3.5 - 5.1 mmol/L [facility] Sodium [Moles/Vol] 139 mmol/L 136 - 145 mmol/L [facility] Urea nitrogen [Mass/Vol] 32 mg/dL High 9 - 23 mg/dL [facility] CBC W Auto Differential pane l (Bld)on 11-14-2024 Basophils (Bld) [#/Vol] 0 10*3/uL 0.0 - 0.2 10*3/uL [facility] Basophils/100 WBC (Bld) 0.1 % 0.0 - 2.0 % [facility] Eosinophils (Bld) [#/Vol] 0 10*3/uL 0.0 - 0.5 10*3/uL [facility] Eosinophils/100 WBC (Bld) 0 % 0.0 - 6.0 % [facility] Erythrocyte distribution width (RBC) [Ratio] 13.5 % 11.5 - 15.0 % [facility] Hematocrit (Bld) [Volume fraction] 40.5 % 35.0 - 47.0 % [facility] Hemoglobin (Bld) [Mass/Vol] 13.9 g/dL 11.7 - 16.0 g/dL [facility] Immature granulocytes (Bld) [#/Vol] 0 10*3/uL NINF - 0.1 10*3/uL [facility] Immature granulocytes/100 WBC (Bld) 0.4 % 0.0 - 2.0 % [facility] Interpretation and review of laboratory results Abnormal [facility] Lymphocytes (Bld) [#/Vol] 0.8 10*3/uL Low 1.0 - 4.3 10*3/uL [facility] Lymphocytes/100 WBC (Bld) 7.5 % Low 15.0 - 45.0 % [facility] MCH (RBC) [Entitic mass] 31.7 pg 26.0 - 34.[address] [facility] MCHC (RBC) [Mass/Vol] 34.3 % 30.5 - 36.0 % [facility] MCV (RBC) [Entitic vol] 92.3 fL 77.0 - 99.[address] [facility] Monocytes (Bld) [#/Vol] 0.2 10*3/uL 0.0 - 0.9 10*3/uL [facility] Monocytes/100 WBC (Bld) 2.2 % Low 5.0 - 13.0 % [facility] Neutrophils (Bld) [#/Vol] 9.4 10*3/uL High 1.8 - 7.5 10*3/uL [facility] Neutrophils/100 WBC (Bld) 89.8 % High 38.0 - 82.0 % [facility] Nucleated RBC/100 WBC (Bld) [Ratio] 0 % [facility] Platelet mean volume (Bld) [Entitic vol] 10.6 fL 9.0 - 12.7 fL [facility] Platelets (Bld) [#/Vol] 282 10*3/uL 140 - 440 10*3/uL [facility] RBC (Bld) [#/Vol] 4.39 10*6/uL 3.80 - 5.2 0 10*6/uL [facility] WBC (Bld) [#/Vol] 10.5 10*3/uL 3.6 - 10.7 10*3/uL [facility] CBC WITH AUTO DIFFERENTIALon 11-14-2024 Basophils (Bld) [#/Vol] 0.0 10*3/uL Normal 0.0-0.2 [facility] Comment on above: Performed By: #### L [id number] ####Dyed Yarn Operator: FREEMAN DOUGHERTY ([phone])[facility] ([facility])[address] [place] [address] Basophils/100 WBC (Bld) 0.1 % Normal 0.0-2.0 [facility] Comment on above: Performed By: #### L [id number] ####Dyed Yarn Operator: FREEMANSUGEY SUAREZMartinaMICHAEL ([phone])[facility] [place] ([facility])[address] Eosinophils (Bld) [#/Vol] 0.0 10*3/uL Normal 0.0-0.5 [facility] Comment on above: Performed By: #### L [id number] ####Dyed Yarn Operator: FREEMAN FARHAT ([phone])[facility] ([facility])[address] Eosinophils/100 WBC (Bld) 0.0 % Normal 0.0-6.0 [facility] Comment on above: Performed By: #### L [id number] ####Dyed Yarn Operator: FREEMAN DOUGHERTY ([phone])[facility] ([facility])[address] Erythrocyte distribution width (RBC) [Ratio] 13.5 % Normal 11.5-15.0 [facility] Comment on above: Performed By: #### L [id number] ####Dyed Yarn Operator: FREEMAN FARHAT ([phone])[facility] Hematocrit (Bld) [Volume fraction] 40.5 % Normal 35.0-47.0 [facility] Comment on above: Performed By: #### L [id number] ####Dyed Yarn Operator: FREEMAN MURPHYMICHAEL ([phone])[facility] ([facility])[address] Hemoglobin (Bld) [Mass/Vol] 13.9 g/dL Normal 11.7-16.0 [facility] Comment on above: Performed By: #### L [id number] ####Dyed Yarn Operator: FREEMAN MURPHYMICHAEL ([phone])[facility] ([facility])[address] IMMATURE GRANS % 0.4 % Normal 0.0-2.0 [facility] Comment on above: Performed By: #### L [id number] ####Dyed Yarn Operator: FREEMAN SUAREZMartinaMICHAEL ([phone])[facility] [place] ([facility])[address] IMMATURE GRANS ABSOLUTE 0.0 10*3/uL Normal <0.1 [facility] Comment on above: Performed By: #### L [id number] ####Dyed Yarn Operator: FREEMAN MURPHYMICHAEL ([phone])[facility] ([facility])[address] Lymphocytes (Bld) [#/Vol] 0.8 10*3/uL Low 1.0-4.3 [facility] Comment on above: Performed By: #### L [id number] ####Dyed Yarn Operator: FREEMAN MURPHYMICHAEL ([phone])[facility] (SB[facility])[address] [place] [address] Lymphocytes/100 WBC (Bld) 7.5 % Low 15.0-45.0 [facility] Comment on above: Performed By: #### L [id number] ####Dyed Yarn Operator: FREEMAN SUAREZMartinaMICHAEL ([phone])[facility] ([facility])[address] MCH (RBC) [Entitic mass] 31.7 pg Normal 26.0-34.0 [facility] Comment on above: Performed By: #### L [id number] ####Dyed Yarn Operator: FREEMAN DOUGHERTY ([phone])[facility] ([facility])[address] [place] [address] MCHC 34.3 % Normal 30.5-36.0 [facility] Comment on above: Performed By: #### L [id number] ####Dyed Yarn Operator: FREEMAN DOUGHERTY ([phone])[facility] ([facility])[address] MCV (RBC) [Entitic vol] 92.3 fL Normal 77.0-99.0 [facility] Comment on above: Performed By: #### L [id number] ####Dyed Yarn Operator: FREEMAN MURPHYMICHAEL ([phone])[facility] [place] ([facility]AB)[address] Monocytes (Bld) [#/Vol] 0.2 10*3/uL Normal 0.0-0.9 [facility] Comment on above: Performed By: #### L [id number] ####Dyed Yarn Operator: FREEMAN SUAREZMAYRA ([phone])[facility] [place] ([facility])[address] Monocytes/100 WBC (Bld) 2.2 % Low 5.0-13.0 [facility] Comment on above: Performed By: #### L [id number] ####Dyed Yarn Operator: FREEMAN MURPHYMICHAEL ([phone])[facility] [place] ([facility])[address] [place] [address] NEUTROPHILS ABSOLUTE 9.4 10*3/uL High 1.8-7.5 [facility] Comment on above: Performed By: #### L [id number] ####Dyed Yarn Operator: FREEMAN MURPHYMICHAEL ([phone])[facility] [place] ([facility])[address] Neutrophils/100 WBC (Bld) 89.8 % High 38.0-82.0 [facility] Comment on above: Performed By: #### L [id number] ####Dyed Yarn Operator: FREEMAN DOUGHERTY ([phone])[facility] [place] ([facility])[address] NRBC 0.0 /100 WBCs Normal 0.0-2.0 [facility] Comment on above: Performed By: #### L [id number] ####Dyed Yarn Operator: FREEMAN MURPHYMICHAEL ([phone])[facility] [place] ([facility])[address] Platelet mean volume (Bld) [Entitic vol] 10.6 fL Normal 9.0-12.7 [facility] Comment on above: Performed By: #### L [id number] ####Dyed Yarn Operator: FREEMANSUGEY DOUGHERTY ([id number])[facility] ([facility])[address] Platelets (Bld) [#/Vol] 282 10*3/uL Normal 140-440 [facility] Comment on above: Performed By: #### L [id number] ####Dyed Yarn Operator: FREEMAN FARHAT ([phone])[facility] ([facility])[address] RBC (Bld) [#/Vol] 4.39 10*6/uL Normal 3.80-5.20 [facility] Comment on above: Performed By: #### L [id number] ####Dyed Yarn Operator: FREEMAN FARHAT ([phone])[facility] ([facility])[address] [place] [address] WBC (Bld) [#/Vol] 10.5 10*3/uL Normal 3.6-10.7 [facility] Comment on above: Performed By: #### L [id number] ####Dyed Yarn Operator: FREEMAN DOUGHERTY ([phone])[facility] ([facility])[address] CBC-Complete Blood Cnt No Di ffon 11-14-2024 HCT Normal 37-47 [facility] Comment on above: Order Comment: 303.2 Result Comment: [facility] Performed By: #### L 501.9520, L500.4050, L501.9985, L500.4100, L100.0500 #### [facility] [address] [place], [address] HGB Normal 12.0-15.0 [facility] Comment on above: Order Comment: 303.2 Result Comment: [facility] Performed By: #### L 501.9520, L500.4050, L501.9985, L500.4100, L100.0500 #### [facility] [address] [place], [address] MCH Normal 27.0-32.0 [facility] Comment on above: Order Comment: 303.2 Result Comment: [facility] Performed By: #### L 501.9520, L500.4050, L501.9985, L500.4100, L100.0500 #### [facility] [address] [place], [address] MCHC Normal 32-36 [facility] Comment on above: Order Comment: 303.2 Result Comment: [facility] Performed By: #### L 501.9520, L500.4050, L501.9985, L500.4100, L100.0500 #### [facility] [address] [place], [address] MCV Normal 81-99 [facility] Comment on above: Order Comment: 303.2 Result Comment: [facility] Performed By: #### L 501.9520, L500.4050, L501.9985, L500.4100, L100.0500 #### [facility] [address] [place], [address] PLT Normal 150-450 [facility] Comment on above: Order Comment: 303.2 Result Comment: [facility] Performed By: #### L 501.9520, L500.4050, L501.9985, L500.4100, L100.0500 #### [facility] [address] [place], [address] RBC Normal 4.2-5.4 [facility] Comment on above: Order Comment: 303.2 Result Comment: [facility] Performed By: #### L 501.9520, L500.4050, L501.9985, L500.4100, L100.0500 #### [facility] [address] [place], [address] RDW CV Normal 11.6-14.6 [facility] Comment on above: Order Comment: 303.2 Result Comment: [facility] Performed By: #### L 501.9520, L500.4050, L501.9985, L500.4100, L100.0500 #### [facility] [address] [place], [address] RDW SD Normal 35.1-43.9 [facility] Comment on above: Order Comment: 303.2 Result Comment: [facility] Performed By: #### L 501.9520, L500.4050, L501.9985, L500.4100, L100.0500 #### [facility] [address] [place], [address] WBC Normal 4.4-11.0 [facility] Comment on above: Order Comment: 303.2 Result Comment: [facility] Performed By: #### L [id number], L500.4050, L501.9985, L500.4100, L100.0500 #### [facility] [address] [place], [address] Consulton 11-14-2024 Consult Vancomycin therapy h as been discontinued by Dr. Franz on 11-14-24. Thank you for the consult. Pharmacy signing off for vancomycin dosing. Leandra Cordero [facility], Date: 11/14/24 Time: 11:22 AM Normal [facility] Consult Palliative Care Initial Consult Chief Complaint: Carline Villarreal is a 78 y.o. female with chief complaint of SOB Palliative care consulted for goals of care Palliative Care is actively following. Assessment/Plan Goals of care Carline Villarreal lacks capacity for medical decision-making due to dementia and encephalopathy. -legal surrogate decision maker is son, Rosas Villarreal (Phone: [phone]) - met with patient this afternoon, patient [...] left hemiparesis, hypertension who was admitted to [facility] on 11/13 for SOB. Patient reportedly had [...] Determined Advanced Directives: Health Care Power of Retail Clerk, DNR Functional Assessment: PPS 30% bedbound; can't do any work/extensive disease; total care; reduced intake; full or drowsy or confusion Prognosis: depends upon goals of care Spiritual Assessment: No spiritual distress identified Bereavement and Grief: To Be Determined PDMP/OARRS Reviewed: No Report Available Social history: Marital status: single Children: Unknown Living status: half-way Work history: Retired status: No Episcopal david: Spiritism ROS: See palliative care ROS/ESAS below; Detail ROS unable to be obtained due to patient's mental status [place] Symptom Assessment Score [place] Score Pain Score (if non-verbal, add .FLACC [...] (97.7 ?F) (Temporal) Resp 17 Ht 5' 5" (1.651 m) Wt 210 lb (95.3 kg) SpO2 98% BMI 34.95 kg/m? Physical Exam Constitutional: Appearance: She is ill-appearing. HENT: Head: Normocephalic and atraumatic. Right Ear: External ear normal. Left Ear: External ear normal. Nose: Nose normal. Mouth/Throat: Mouth: Mucous membranes are moist. Eyes: General: No scleral icterus. Right eye: No discharge (more content not included)... Normal [facility] Consult [facility] [place] [facility] Consult Note Reason for Consult/Chief Complaint: [...] source Temporal, resp. rate 17, height 5' 5" (1.651 m), weight 210 lb (95.3 kg), [...] atorvastatin to limit polypharmacy. Hammad Hinton MD, [facility], [facility] DATE of SERVICE: 11/14/2024 [1] Past Medical [...] IntraVENous, q6h vancomycin, 1,000 mg, IntraVENous, q24h [facility] Consult [facility], Pulmonary Medicine [address] [place] [address] [id number] 1945 Date of Admission - 11/13/2024 10:39 AM Date of evaluation - 11/14/2024 Room [facility] A Hospital Day - 1 Consulting - Dominguez Franz MD Primary Care Physician - Evi Guevara [facility] Problem List Problem List[1] Reason for Consult Hypoxic hypercapnic respiratory failure congestive heart failure probable [facility] History of Present Illness Carline Villarreal is a 78 y.o. female admitted for Shortness of breath noted to be in acute hypoxic hypercapnic respiratory failure decompensated congestive heart failure Patient does have a history of dementia as per chart half-way resident, diabetes mellitus hypertension stroke Admitted with [...] PAP therapy at home Apparently came from [facility] 20 years ago Chest x-ray reviewed interpreted [...] tablet 1 (more content not included)... Normal [facility] HEMOGLOBIN A1Con 11-14-2024 Glucose [Mass/Vol] 111 mg/dL Normal [facility] Comment on above: Result Comment: SUKH [...] repeat testing. Performed By: #### L [id number] ####Dyed Yarn Operator: FREEMAN DOUGHERTY ([id number])[facility] ([facility])[address] [place] [address] HEMOGLOBIN A1C 5.5 %HbA1C Normal <5.7 [facility] Comment on above: Result Comment: Norm al less than 5.7% Prediabetes 5.7% to 6.4% Diabetes 6.5% or higher --HgbA1C levels may not be accurate in patients who have renal disease, received recent blood transfusions, are anemic, or who have dyshemoglobinemia. Performed By: #### L AB90 ####Dyed Yarn Operator: FREEMAN DOUGHERTY ([id number])[facility] ([facility])[address] [place] [address] Laboratory - Chemistry and C hemistry - challengeon 11-14-2024 Glucose [Mass/Vol] 165 mg/dL High 70 - 100 mg/dL [facility] Glucose [Mass/Vol] 171 mg/dL High 70 - 100 mg/dL [facility] Average glucose Estimated from glycated hemoglobin (Bld) [Mass/Vol] 111 mg/dL [facility] Glucose [Mass/Vol] 231 mg/dL High 70 - 100 mg/dL [facility] Glucose [Mass/Vol] 175 mg/dL High 70 - 100 mg/dL [facility] - Drug toxicology on 11-14-2024 Vancomycin trough [Mass/Vol] 16.8 ug/mL [facility] - Hematology and Cell countson 11-14-2024 HbA1c (Bld) [Mass fraction] 5.5 % NINF [facility] No Panel Informationon 11-14 Interpretation and review of laboratory results Abnormal [facility] Interpretation and review of laboratory results Abnormal [facility] Interpretation and review of laboratory results Abnormal [facility] Interpretation and review of laboratory results Abnormal [facility] Nursing Noteon 11-14-[address] Nogueira as follows: "Patient blood pressure at 19:52 179/89, medicated as prescribed. Reassessed blood pressure at 22:38 177/98. Please evaluate and let me know if you would like to give her another antihypertensive medication. Patient currently resting. Thank you!" Normal [facility] Nursing Note Epic chat as follows to Dr. Nogueira: " Hello! Patient is a DNR CCA on telemetry? Patient verbalizes Take this off clearly pulling off leads every 5 minutes. Refusing to wear. Please consider and evaluate discontinuing telemetry order. Thank you! PT currently Alert to self and time, confused on place. " Normal [facility] Nursing Note Epic chat as follows to Dr. Nogueira: "Good Evening! I see two separate orders for melatonin for this patient. Please verify if both are to be given, total of 6 mg oral melatonin. Thank you!" Normal [facility] Nursing Note Tele alarm for HR in to the 180's. Checked radial pulse 92, and again 86. Leads replaced. Pt HR on monitor now 89. Pt in no distress. No c/o CP, or SOB. Normal [facility] Progress Noteon 11-14-2024 Progress Note PHYSICAL THERAPY [facility] Name/MRN: Carline Villarreal ([id number]) Date: 11/14/2024 PT orders received. Chart reviewed. Pt currently with nursing and unavailable for PT session. Will re-attempt as pt appropriate and schedule permits. Justina Doyle, PT Normal [facility] US Heart TransthoracicOrdere d By: Nishant Kaur on 11-14-2024 Ao Root Index 1.68 cm/m2 [facility] [employer] Work Phone: [phone] Aortic Arch 3.6 cm [facility] [employer] Work Phone: [phone] Aortic Root 3.4 cm [facility] [employer] Work Phone: [phone] Aortic Sinus Valsalva 3.4 cm [facility] [employer] Work Phone: [phone] Aortic Sinus Valsalva Index 1.68 cm/m2 [facility] [employer] Work Phone: [phone] Aortic valve Orifice area by 3.5 cm2 [facility] [employer] Work Phone: [phone] AR Max Velocity PISA 4 m/s [facility] [employer] Work Phone: [phone] AR PHT 389.9 ms [facility] [employer] Work Phone: [phone] Ascending Aorta 3.6 cm [facility] Work Phone: [phone] Ascending Aorta Index 1.78 cm/m2 [facility] [employer] Work Phone: [phone] Est. RA Pressure 8 mmHg [facility] Work Phone: [phone] Fractional Shortening 2D 37 % 28 - 44 % [facility] [employer] Work Phone: [phone] Interpretation and review of laboratory results Abnormal [facility] [employer] Work Phone: [phone] IVC Diameter 2.3 cm [facility] [employer] Work Phone: [phone] IVSd 1.2 cm Abnormal 0.6 - 0.9 cm [facility] [employer] Work Phone: [phone] LA Diameter 4.1 cm [facility] [employer] Work Phone: [phone] LA Size Index 2.03 cm/m2 [facility] Work Phone: [phone] LA Volume 2C 102 mL Abnormal 22 - 52 mL [facility] [employer] Work Phone: LA Volume 4C 94 mL Abnormal 22 - 52 mL [facility] Work [phone] LA Volume A/L 104 mL [facility] Work Phone: [phone] LA Volume BP 98 mL Abnormal 22 - 52 mL [facility] Work Phone: LA Volume Index 2C 50 mL/m2 Abnormal 16 - 34 mL/m2 [facility] Work Phone: LA Volume Index 4C 47 mL/m2 Abnormal 16 - 34 mL/m2 [facility] Work Phone: [phone] LA Volume Index A/L 51 mL/m2 16 - 34 mL/m2 [facility] Work Phone: LA Volume Index BP 49 ml/m2 Abnormal 16 - 34 ml/m2 [facility] Work Phone: LA/AO Root Ratio 1.21 [facility] Work Phone: Left ventricular Ejection fraction by US.2D+Calculated by biplane method of disks 35 % Abnormal 55 - 100 % [facility] Work Phone: LV EDV A2C 111 mL [facility] Work Phone: LV EDV A4C 94 mL [facility] Work Phone: LV EDV BP 104 mL 56 - 104 mL [facility] Work Phone: LV EDV Index A2C 55 mL/m2 [facility] Work Phone: LV EDV Index A4C 47 mL/m2 [facility] Work Phone: LV EDV Index BP 51 mL/m2 [facility] Work Phone: [phone] LV Ejection Fraction A2C 39 % [facility] Work Phone: [phone] LV Ejection Fraction A4C 28 % [facility] Work Phone: LV ESV A2C 68 mL [facility] Work Phone: [phone] LV ESV A4C 67 mL [facility] Work Phone: LV ESV BP 68 mL Abnormal 19 - 49 mL [facility] Work Phone: LV ESV Index A2C 34 mL/m2 [facility] Work Phone: [phone] LV ESV Index A4C 33 mL/m2 [facility] Work Phone: [phone] LV ESV Index BP 34 mL/m2 [facility] Work Phone: [phone] LV Mass 2D 171.7 g Abnormal 67 - 162 g [facility] Work Phone: [phone] LV Mass 2D Index 85 g/m2 43 - 95 g/m2 [facility] [employer] Work Phone: [phone] LV RWT Ratio 0.59 [facility] [employer] Work Phone: [phone] LVIDd 4.1 cm 3.9 - 5.3 cm [facility] [employer] Work Phone: LVIDd Index 2.03 cm/m2 [facility] [employer] Work Phone: LVIDs 2.6 cm [facility] [employer] Work Phone: LVIDs Index 1.29 cm/m2 [facility] [employer] Work Phone: LVOT Cardiac Output 6.6 liter/mi nut e [facility] [employer] Work Phone: LVOT Diameter 2.1 cm [facility] [employer] Work Phone: LVOT Mean Gradient 2 mmHg [facility] [employer] Work Phone: LVOT Peak Gradient 4 mmHg [facility] [employer] Work Phone: LVOT Peak Velocity 0.9 m/s [facility] [employer] Work Phone: LVOT Stroke Volume Index 35.1 mL/m2 [facility] [employer] Work Phone: LVOT SV 71 ml [facility] [employer] Work Phone: LVOT VTI 20.5 cm [facility] [employer] Work Phone: LVPWd 1.2 cm Abnormal 0.6 - 0.9 cm [facility] [employer] Work Phone: MV A Velocity 0.53 m/s [facility] [employer] [facility] Work Phone: MV E Velocity 0.52 m/s [facility] Work Phone: [phone] MV E Wave Deceleration Time 165.6 ms [facility] Work Phone: [phone] MV E/A 0.98 [facility] Work Phone: RA Area 4C 32.2 mL [facility] Work Phone: [phone] RA Area 4C 30.6 mL [facility] Work Phone: [phone] RV Basal Dimension 3.4 cm [facility] Work Phone: [phone] RV Free Wall Peak S' 7 cm/s [facility] Work Phone: [phone] RV Mid Dimension 2.5 cm [facility] Work Phone: [phone] RVSP 53 mmHg [facility] Work Phone: [phone] Sinotubular Junction 3.1 cm [facility] Work Phone: [phone] TAPSE 1.8 cm 1.7 cm [facility] Work Phone: [phone] TR Max Velocity 3.36 m/s [facility] Work Phone: [phone] TR Peak Gradient 45 mmHg [facility] Work Phone: [phone] TR Peak Velocity PISA 2.2 m/s [facility] Work Phone: TR VTI 66.3 cm [facility] Work Phone: [phone] TV EROA 0.4 cm2 [facility] Work Phone: [phone] TV Nyquist Velocity 36 cm/s [facility] Work [phone] [facility] Work Phone: [phone] US Heart Transthoracicon CV CPACS VANCOMYCIN, AUC TIMED DOSING on 11-14-2024 VANCOMYCIN, AUC 16.8 ug/mL Normal [facility] Comment on above: Result Comment: SUKH Smith COMMENTS: Please draw random level at least >2 hours after the end of the last vancomycin infusion, or 30-minutes before next infusion. Toxicity is seen at concentrations >80-100 ug/mL Therapeutic (Peak) range: 20-40 Therapeutic (Trough) range: 5-10 Performed By: #### L AB39 ####Dyed Yarn Operator: FREEMAN DOUGHERTY ([id number])[facility] ([facility])[address] [place] [address] Vancomycin trough [Mass/Vol] on 11-14-2024 [facility] 30on 11-13-2024 30 Problem: Knowledge Deficit Goal: [...] maintained or improved Outcome: Not Progressing Normal [facility] BLOOD CULTUREon 11-13-2024 Bacteria identified Cx Nom (Bld) BLOOD CULTURE Reference No growth at 5 days ORDER COMMENTS: Blood Collection Site: Right Hand [ S = SUSCEPTIBLE R = RESISTANT I = INTERMEDIATE S-DD = Susceptible-dose dependent NS = Non-susceptible NO = No Interpretation ] Normal [facility] Comment on above: Performed By: #### L [id number] ####Dyed Yarn Operator: LOLY BUI ([id number])[facility] ([facility])[address] [place] [address] Bacteria identified Cx Nom (Bld) BLOOD CULTURE Reference No growth at 5 days ORDER COMMENTS: Blood Collection Site: Left Arm [ S = SUSCEPTIBLE R = RESISTANT I = INTERMEDIATE S-DD = Susceptible-dose dependent NS = Non-susceptible NO = No Interpretation ] Normal [facility] Comment on above: Performed By: #### L [id number] ####Dyed Yarn Operator: LOLY BUI ([id number])[facility] ([facility])[address] [place] [address] BLOOD GAS, VENOUSon 11-14-19 25 AMOUNT OF OXYGEN Normal [facility] Comment on above: Result Comment: SUKH R COMMENTS: Assessment of oxygenation is best done with an arterial blood gas determination. Reference ranges for pO2, bicarbonate, and base excess are for mixed venous blood. Specimens drawn from a peripheral vein will often have higher values. Performed By: #### L AB79 ####Dyed Yarn Operator: FREEMAN DOUGHERTY ([id number])[facility] [place] ([facility])[address] Base excess Calc (BldV) [Moles/Vol] -4.7000 mmol/L Low -3.0-3.0 [facility] Comment on above: Performed By: #### L AB79 ####Dyed Yarn Operator: FREEMAN DOUGHERTY ([id number])[facility] CO2 [Moles/Vol] 19.8 mmol/L Low 23.0-30.0 [facility] Comment on above: Performed By: #### L AB79 ####Dyed Yarn Operator: FREEMAN DOUGHERTY ([id number])[facility])[address] [place] [address] HCO3 (Bld) [Moles/Vol] 18.8 mmol/L Low 21.0-30.0 [facility] Comment on above: Performed By: #### L AB79 ####Dyed Yarn Operator: FREEMAN DOUGHERTY ([id number])[facility])[address] Hemoglobin (Bld) [Mass/Vol] 14.7 g/dL Normal Screen only [facility] Comment on above: Performed By: #### L AB79 ####Dyed Yarn Operator: FREEMAN DOUGHERTY ([id number])[facility])[address] OXYGEN (MM HG) IN VENOUS BLOOD 47.3 mm Hg Normal [facility] Comment on above: Performed By: #### L AB79 ####Dyed Yarn Operator: FREEMAN DOUGHERTY ([id number])[facility])[address] OXYGEN SATURATION (%) IN VENOUS BLOOD 84.2 % Normal [facility] Comment on above: Performed By: #### L AB79 ####Dyed Yarn Operator: FREEMAN DOUGHERTY ([id number])[facility] ([facility])[address] PCO2, SWATI 30.8 mm Hg Low 35.0-53.0 [facility] Comment on above: Performed By: #### L AB79 ####Dyed Yarn Operator: FREEMANSUGEY DOUGHERTY ([id number])[facility] ([facility])[address] PH VENOUS 7.404 Normal 7.320-7.420 [facility] Comment on above: Performed By: #### L AB79 ####Dyed Yarn Operator: FREEMAN DOUGHERTY ([id number])[facility] ([facility])[address] SOURCE OF OXYGEN Nasal Cannula (LPM) Normal [facility] Comment on above: Performed By: #### L AB79 ####Dyed Yarn Operator: FREEMANSUGEY DOUGHERTY ([id number])[facility] ([facility])[address] AMOUNT OF OXYGEN Normal [facility] Comment on above: Result Comment: SUKH Smith COMMENTS: Assessment of oxygenation is best done with an arterial blood gas determination. Reference ranges for pO2, bicarbonate, and base excess are for mixed venous blood. Specimens drawn from a peripheral vein will often have higher values. Performed By: #### L AB79 ####Dyed Yarn Operator: FREEMAN DOUGHERTY ([id number])[facility] [place] ([facility])[address] Base excess Calc (BldV) [Moles/Vol] -5.5000 mmol/L Low -3.0-3.0 [facility] Comment on above: Performed By: #### L AB79 ####Dyed Yarn Operator: FREEMAN SUAREZMAYRA ([id number])[facility] ([facility])[address] CO2 [Moles/Vol] 24.5 mmol/L Normal 23.0-30.0 [facility] Comment on above: Performed By: #### L AB79 ####Dyed Yarn Operator: FREEMAN DOUGHERTY ([id number])[facility] ([facility])[address] HCO3 (Bld) [Moles/Vol] 22.8 mmol/L Normal 21.0-30.0 [facility] Comment on above: Performed By: #### L AB79 ####Dyed Yarn Operator: FREEMAN DOUGHERTY ([id number])[facility] ([facility])[address] Hemoglobin (Bld) [Mass/Vol] 14.5 g/dL Normal Screen only [facility] Comment on above: Performed By: #### L AB79 ####Dyed Yarn Operator: FREEMAN DOUGHERTY ([id number])[facility] [place])[address] OXYGEN (MM HG) IN VENOUS BLOOD 32.9 mm Hg Normal [facility] Comment on above: Performed By: #### L AB79 ####Dyed Yarn Operator: FREEMAN MURPHYMICHAEL ([id number])[facility] ([facility])[address] OXYGEN SATURATION (%) IN VENOUS BLOOD 55.4 % Normal [facility] Comment on above: Performed By: #### L AB79 ####Dyed Yarn Operator: FREEMAN DOUGHERTY ([id number])[facility] [place] [facility])[address] [place] [address] [place] PCO2, SWATI 55.8 mm Hg High 35.0-53.0 [facility] Comment on above: Performed By: #### L AB79 ####Dyed Yarn Operator: FREEMAN MURPHYMICHAEL ([id number])[facility])[address] [place] [address] [place] PH VENOUS 7.229 Low 7.320-7.420 [facility] Comment on above: Performed By: #### L AB79 ####Dyed Yarn Operator: FREEMAN DOUGHERTY ([id number])[facility] [place] ([facility])[address] SOURCE OF OXYGEN Nasal Cannula (LPM) Normal [facility] Comment on above: Performed By: #### L AB79 ####Dyed Yarn Operator: FREEMAN DOUGHERTY ([id number])[facility] ([facility])[address] CBC W Auto Differential pane l (Bld)on 11-13-2024 Basophils (Bld) [#/Vol] 0.1 10*3/uL 0.0 - 0.2 10*3/uL [facility] Basophils/100 WBC (Bld) 0.5 % 0.0 - 2.0 % [facility] Eosinophils (Bld) [#/Vol] 0.6 10*3/uL High 0.0 - 0.5 10*3/uL [facility] Eosinophils/100 WBC (Bld) 5.8 % 0.0 - 6.0 % [facility] Erythrocyte distribution width (RBC) [Ratio] 13.7 % 11.5 - 15.0 % [facility] Hematocrit (Bld) [Volume fraction] 42 % 35.0 - 47.0 % [facility] Hemoglobin (Bld) [Mass/Vol] 14 g/dL 11.7 - 16.0 g/dL [facility] Immature granulocytes (Bld) [#/Vol] 0.1 10*3/uL High NINF - 0.1 10*3/uL [facility] Immature granulocytes/100 WBC (Bld) 0.6 % 0.0 - 2.0 % [facility] Interpretation and review of laboratory results Abnormal [facility] Lymphocytes (Bld) [#/Vol] 1.8 10*3/uL 1.0 - 4.3 10*3/uL [facility] Lymphocytes/100 WBC (Bld) 17.4 % 15.0 - 45.0 % [facility] MCH (RBC) [Entitic mass] 31.7 pg 26.0 - 34.[address] [facility] MCHC (RBC) [Mass/Vol] 33.3 % 30.5 - 36.0 % [facility] MCV (RBC) [Entitic vol] 95 fL 77.0 - 99.[address] [facility] Monocytes (Bld) [#/Vol] 0.5 10*3/uL 0.0 - 0.9 10*3/uL [facility] Monocytes/100 WBC (Bld) 5.2 % 5.0 - 13.0 % [facility] Neutrophils (Bld) [#/Vol] 7.4 10*3/uL 1.8 - 7.5 10*3/uL [facility] Neutrophils/100 WBC (Bld) 70.5 % 38.0 - 82.0 % [facility] [facility] Nucleated RBC/100 WBC (Bld) [Ratio] 0 % [facility] Platelet mean volume (Bld) [Entitic vol] 10.4 fL 9.0 - 12.[address] [facility] Platelets (Bld) [#/Vol] 261 10*3/uL 140 - 440 10*3/uL [facility] RBC (Bld) [#/Vol] 4.42 10*6/uL 3.80 - 5.2 0 10*6/uL [facility] WBC (Bld) [#/Vol] 10.5 10*3/uL 3.6 - 10.7 10*3/uL [facility] CBC WITH AUTO DIFFERENTIALon 11-13-2024 Basophils (Bld) [#/Vol] 0.1 10*3/uL Normal 0.0-0.2 [facility] Comment on above: Performed By: #### L [id number] ####Dyed Yarn Operator: FREEMAN DOUGHERTY ([phone])[facility] ([facility])[address] [place] [address] Basophils/100 WBC (Bld) 0.5 % Normal 0.0-2.0 [facility] Comment on above: Performed By: #### L [id number] ####Dyed Yarn Operator: FREEMAN DOUGHERTY ([phone])[facility] ([facility])[address] [place] [address] [place] Eosinophils (Bld) [#/Vol] 0.6 10*3/uL High 0.0-0.5 [facility] Comment on above: Performed By: #### L [id number] ####Dyed Yarn Operator: FREEMAN DOUGHERTY ([phone])[facility] ([facility])[address] [place] [address] [place] Eosinophils/100 WBC (Bld) 5.8 % Normal 0.0-6.0 [facility] Comment on above: Performed By: #### L [id number] ####Dyed Yarn Operator: FREEMAN SUAREZMartinaMICHAEL ([phone])[facility] ([facility])[address] Erythrocyte distribution width (RBC) [Ratio] 13.7 % Normal 11.5-15.0 [facility] Comment on above: Performed By: #### L [id number] ####Dyed Yarn Operator: FREEMAN FARHAT ([phone])[facility] ([facility])[address] Hematocrit (Bld) [Volume fraction] 42.0 % Normal 35.0-47.0 [facility] Comment on above: Performed By: #### L [id number] ####Dyed Yarn Operator: FREEMAN SUAREZMAYRA ([phone])[facility] ([facility])[address] [place] [address] Hemoglobin (Bld) [Mass/Vol] 14.0 g/dL Normal 11.7-16.0 [facility] Comment on above: Performed By: #### L [id number] ####Dyed Yarn Operator: FREEMAN MURPHYMICHAEL ([phone])[facility] ([facility])[address] [place] [address] IMMATURE GRANS % 0.6 % Normal 0.0-2.0 [facility] Comment on above: Performed By: #### L [id number] ####Dyed Yarn Operator: FREEMAN MURPHYMICHAEL ([phone])[facility] ([facility])[address] IMMATURE GRANS ABSOLUTE 0.1 10*3/uL High <0.1 [facility] Comment on above: Performed By: #### L [id number] ####Dyed Yarn Operator: FREEMAN DOUGHERTY ([phone])[facility] ([facility])[address] Lymphocytes (Bld) [#/Vol] 1.8 10*3/uL Normal 1.0-4.3 [facility] Comment on above: Performed By: #### L [id number] ####Dyed Yarn Operator: FREEMAN MURPHYMICHAEL ([phone])[facility] ([facility])[address] Lymphocytes/100 WBC (Bld) 17.4 % Normal 15.0-45.0 [facility] Comment on above: Performed By: #### L [id number] ####Dyed Yarn Operator: FREEMAN SUAREZMAYRA ([phone])[facility] [place] ([facility])[address] MCH (RBC) [Entitic mass] 31.7 pg Normal 26.0-34.0 [facility] Comment on above: Performed By: #### L [id number] ####Dyed Yarn Operator: FREEMAN SUAREZMAYRA ([phone])[facility] [place] ([facility])[address] MCHC 33.3 % Normal 30.5-36.0 [facility] Comment on above: Performed By: #### L [id number] ####Dyed Yarn Operator: FREEMAN MURPHYMICHAEL ([phone])[facility] [place] ([facility])[address] MCV (RBC) [Entitic vol] 95.0 fL Normal 77.0-99.0 [facility] Comment on above: Performed By: #### L [id number] ####Dyed Yarn Operator: FREEMAN MURPHYMICHAEL ([phone])[facility] [place] ([facility])[address] Monocytes (Bld) [#/Vol] 0.5 10*3/uL Normal 0.0-0.9 [facility] Comment on above: Performed By: #### L [id number] ####Dyed Yarn Operator: FREEMAN DOUGHERTY ([phone])[facility] [place] ([facility])[address] Monocytes/100 WBC (Bld) 5.2 % Normal 5.0-13.0 [facility] Comment on above: Performed By: #### L [id number] ####Dyed Yarn Operator: FREEMAN DOUGHERTY ([phone])[facility] [place] ([facility])[address] NEUTROPHILS ABSOLUTE 7.4 10*3/uL Normal 1.8-7.5 [facility] Comment on above: Performed By: #### L [id number] ####Dyed Yarn Operator: FREEMAN DOUGHERTY ([phone])[facility] [place] ([facility])[address] Neutrophils/100 WBC (Bld) 70.5 % Normal 38.0-82.0 [facility] Comment on above: Performed By: #### L [id number] ####Dyed Yarn Operator: FREEMAN DOUGHERTY ([phone])[facility] [place] ([facility])[address] NRBC 0.0 /100 WBCs Normal 0.0-2.0 [facility] Comment on above: Performed By: #### L [id number] ####Dyed Yarn Operator: FREEMAN DOUGHERTY ([phone])[facility] [place] ([facility])[address] Platelet mean volume (Bld) [Entitic vol] 10.4 fL Normal 9.0-12.7 [facility] Comment on above: Performed By: #### L [id number] ####Dyed Yarn Operator: FREEMAN DOUGHERTY ([phone])[facility] [place] ([facility])[address] [place] [address] [place] Platelets (Bld) [#/Vol] 261 10*3/uL Normal 140-440 [facility] Comment on above: Performed By: #### L [id number] ####Dyed Yarn Operator: FREEMAN DOUGHERTY ([phone])[facility] [place] ([facility])[address] RBC (Bld) [#/Vol] 4.42 10*6/uL Normal 3.80-5.20 [facility] Comment on above: Performed By: #### L [id number] ####Dyed Yarn Operator: FREEMAN DOUGHERTY ([phone])[facility] ([facility])[address] WBC (Bld) [#/Vol] 10.5 10*3/uL Normal 3.6-10.7 [facility] Comment on above: Performed By: #### L [id number] ####Dyed Yarn Operator: FREEMAN DOUGHERTY ([phone])[facility] SYSTEM[facility] ([facility])[address] COMPREHENSIVE METABOLIC PANE Mandeep 11-13-2024 Albumin [Mass/Vol] 3.5 g/dL Normal 3.4-4.8 [facility] Comment on above: Performed By: #### L AB17, [id number], [id number] ####Dyed Yarn Operator: FREEMAN DOUGHERTY ([phone])[facility] ([facility])[address] ALP [Catalytic activity/Vol] 101 U/L Normal 40-150 [facility] Comment on above: Performed By: #### L AB17, [id number], [id number] ####Dyed Yarn Operator: FREEMAN DOUGHERTY ([phone])[facility] [place] ([facility])[address] ALT [Catalytic activity/Vol] 11 U/L Normal <30 [facility] Comment on above: Performed By: #### L AB17, [id number], [id number] ####Dyed Yarn Operator: FREEMAN DOUGHERTY ([phone])[facility] ([facility])[address] Anion gap [Moles/Vol] 16 mmol/L High 3-13 [facility] Comment on above: Performed By: #### L AB17, [id number], [id number] ####Dyed Yarn Operator: FREEMAN DOUGHERTY ([phone])[facility] ([facility])[address] AST [Catalytic activity/Vol] 20 U/L Normal <34 [facility] Comment on above: Performed By: #### L AB17, [id number], [id number] ####Dyed Yarn Operator: FREEMAN DOUGHERTY ([phone])[facility] ([facility])[address] Bilirubin [Mass/Vol] 0.6 mg/dL Normal <1.2 [facility] Comment on above: Performed By: #### L AB17, [id number], [id number] ####Dyed Yarn Operator: FREEMAN DOUGHERTY ([phone])[facility] ([facility])[address] Calcium [Mass/Vol] 9.1 mg/dL Normal 8.8-10.0 [facility] Comment on above: Performed By: #### Nicole PIKE, [id number], [id number] ####Dyed Yarn Operator: FREEMAN DOUGHERTY ([phone])[facility] ([facility])[address] Chloride [Moles/Vol] 105 mmol/L Normal 98-107 [facility] Comment on above: Performed By: #### L AB17, [id number], [id number] ####Dyed Yarn Operator: FREEMAN DOUGHERTY ([phone])[facility] ([facility])[address] [place] [address] [place] CO2 [Moles/Vol] 20 mmol/L Low 23-31 [facility] Comment on above: Performed By: #### L AB17, [id number], [id number] ####Dyed Yarn Operator: FREEMAN DOUGHERTY ([phone])[facility]BR[facility] ([facility])[address] Creatinine [Mass/Vol] 1.41 mg/dL High 0.57-1.11 [facility] Comment on above: Performed By: #### L AB17, [id number], [id number] ####Dyed Yarn Operator: FREEMAN DOUGHERTY ([phone])[facility] ([facility])[address] GLOMERULAR FILTRATION RATE ML/MIN/1.73 SQ M.PREDICTED 38.3 mL/min/1.73m*2 Low >60.0 [facility] Comment on above: Result Comment: Calc ulation based on the Chronic Kidney Disease Epidemiology Collaboration (CKD-EPI) equation refit without adjustment for race Performed By: #### Nicole PIKE, [id number], [id number] ####Dyed Yarn Operator: FREEMAN DOUGHERTY ([phone])[facility] ([facility])[address] Glucose [Mass/Vol] 169 mg/dL High 82-115 [facility] Comment on above: Performed By: #### Nicole PIKE, [id number], [id number] ####Dyed Yarn Operator: FREEMAN DOUGHERTY ([phone])[facility] ([facility])[address] Potassium [Moles/Vol] 3.6 mmol/L Normal 3.5-5.1 [facility] Comment on above: Result Comment: [facility] potassium values may be up to 0.5 mmol/L lower than serum values. Performed By: #### Nicole SINGER17, [id number], [id number] ####Dyed Yarn Operator: FREEMAN DOUGHERTY ([phone])[facility] ([facility])[address] [place] [address] [place] Protein [Mass/Vol] 6.8 g/dL Normal 6.4-8.3 [facility] Comment on above: Performed By: #### L 17, [id number], [id number] ####Dyed Yarn Operator: FREEMAN DOUGHERTY ([phone])[facility] ([facility])[address] [place] [address] [place] Sodium [Moles/Vol] 141 mmol/L Normal 136-145 [facility] Comment on above: Performed By: #### Nicole SINGER17, [id number], [id number] ####Dyed Yarn Operator: FREEMAN DOUGHERTY ([phone])[facility] ([facility])[address] Urea nitrogen [Mass/Vol] 28 mg/dL High 9-[address] [facility] Comment on above: Performed By: #### L AB17, [id number], [id number] ####Dyed Yarn Operator: FREEMANSUGEY SUAREZMartinaMICHAEL ([phone])[facility] ([facility])[address] COVID-19, Flu A/B, and RSV C omboon 11-13-2024 Interpretation and review of laboratory results Normal [facility] Comprehensive metabolic 1998 panelon 11-13-2024 Albumin [Mass/Vol] 3.5 g/dL 3.4 - 4.8 g/dL [facility] ALP [Catalytic activity/Vol] 101 U/L 40 - 150 U/L [facility] ALT [Catalytic activity/Vol] 11 U/L NINF - 30 U/L [facility] Anion gap [Moles/Vol] 16 mmol/L High 3 - 13 mmol/L [facility] AST [Catalytic activity/Vol] 20 U/L NINF - 34 U/L [facility] Bilirubin [Mass/Vol] 0.6 mg/dL NINF - 1.2 mg/dL [facility] Calcium [Mass/Vol] 9.1 mg/dL 8.8 - 10. 0 mg/dL [facility] Chloride [Moles/Vol] 105 mmol/L 98 - 10 7 mmol/L [facility] CO2 [Moles/Vol] 20 mmol/L Low 23 - 31 mmol/L [facility] Creatinine [Mass/Vol] 1.41 mg/dL High 0.57 - 1.11 mg/dL [facility] GFR/1.73 sq M.predicted (S/P/Bld) [Vol rate/Area] 38.3 mL/min Low - PINF [facility] Glucose [Mass/Vol] 169 mg/dL High 82 - 115 mg/dL [facility] Interpretation and review of laboratory results Abnormal [facility] Potassium [Moles/Vol] 3.6 mmol/L 3.5 - 5.1 mmol/L [facility] Protein [Mass/Vol] 6.8 g/dL 6.4 - 8.3 g/dL [facility] Sodium [Moles/Vol] 141 mmol/L 136 - 145 mmol/L [facility] Urea nitrogen [Mass/Vol] 28 mg/dL High 9 - 23 mg/dL [facility] Consulton 11-13-2024 Consult Internal Medicine: MICU Initial Consult Name: Carline Villarreal : 1945(78 y.o.) Date: 11/13/24 Attending: Shiloh Knapp MD Subjective: Chief Complaint: shortness of breath HPI: Patient is a pleasant 78-year-old female with a history of obesity class II, stroke, hypertension who presented to [facility] ED from [facility] for shortness of breath and cough. She [...] tablet Take 50 (more content not included)... [facility] Consult Pharmacy Managed Vancomycin Dosing Service Consult Note Consult Date: 11/13/24 Patient Name: Carline Villarreal Allergies: Patient has no known allergies. Age: 78 y.o. Sex: female Estimated body mass index is 36.33 kg/m? as calculated from the following: Height as of 12/17/23: 1.676 m (5' 6"). Weight as of this encounter: 102 kg [...] creatinine, and vancomycin levels interfaced automatically to [employer] and data has been analyzed and interpreted. [...] PharmD Clinical Pharmacist Available via Secure Chat [facility] ECG 12-LEADon 11-13-2024 ECG 12-LEAD IMPRESSION: Sinus rhythm Abnormal T, consider ischemia, anterior leads Electronically Signed On 11-13-2024 15:50:52 EDT by Avi Peralta [facility] ED Provider Noteon ED Provider Note [facility] MSU 4S eMERGENCY dEPARTMENT [...] by way of local EMS from a [facility] facility. Patient states she was coughing a lot today and became short of breath. longterm staff relayed that patient's pulse oximetry was [...] Not C (more content not included)... Normal [facility] HIGH SENSITIVITY TROPONIN, S ERIAL BASELINEon 11-13-2024 TROPONIN HS SERIAL BASELINE 12 ng/L Normal <=14 [facility] Comment on above: Result Comment: In i ndividuals presenting with symptoms > 2h, a baseline troponin <= 5 ng/L suggests acute cardiac injury is unlikely and further serial testing is generally not indicated. Performed By: #### L AB17, [id number], [id number] ####Dyed Yarn Operator: FREEMAN DOUGHERTY ([phone])[facility] ([facility])[address] HIGH SENSITIVITY TROPONIN, S GIFTY, SECOND TESTon 11-13-2024 2H TROPONIN HS (SERIAL 2ND TROPONIN) 124 ng/L High <=[address] [facility] Comment on above: Result Comment: Risi ng or falling troponin delta greater than 15 ng/L as compared to baseline value is significant for acute cardiac injury. Performed By: #### L [id number], [id number] ####Dyed Yarn Operator: FREEMAN DOUGHERTY ([phone])[facility] ([facility])[address] Laboratory - Chemistry and C hemistry - challengeon 11-13-2024 Base excess Calc (BldV) [Moles/Vol] -4.7000 mmol/L Low -3.0 - 3.0 mmol/L [facility] CO2 (BldV) [Partial pressure] 30.8 mm[Hg] Low [facility] CO2 [Moles/Vol] 19.8 mmol/L Low 23.0 - 30.0 mmol/L [facility] HCO3 (Bld) [Moles/Vol] 18.8 mmol/L Low 21.0 - 30.0 mmol/L [facility] Oxygen (BldV) [Partial pressure] 47.3 mm[Hg] mm Hg [facility] pH (BldV) 7.404 [pH] 7.320 - 7.[address] [facility] Procalcitonin [Mass/Vol] 0.02 ng/mL NINF - 0.07 ng/mL [facility] Laboratory - Chemistry and C hemistry - challengeOrdered By: Shala Ruiz on 11-13-2024 Base excess Calc (BldV) [Moles/Vol] -5.5000 mmol/L Low -3.0 - 3.0 mmol/L [facility] CO2 (BldV) [Partial pressure] 55.8 mm[Hg] High [facility] CO2 [Moles/Vol] 24.5 mmol/L 23.0 - 30.0 mmol/L [facility] HCO3 (Bld) [Moles/Vol] 22.8 mmol/L 21.0 - 30.0 mmol/L [facility] Oxygen (BldV) [Partial pressure] 32.9 mm[Hg] mm Hg [facility] pH (BldV) 7.229 [pH] Low 7.320 - 7.[address] [facility] Laboratory - Hematology and Cell countson 11-13-2024 Hemoglobin (Bld) [Mass/Vol] 14.7 g/dL Screen only [facility] Laboratory - Hematology and Cell countsOrdered By: Shala Ruiz on 11-13-2024 Hemoglobin (Bld) [Mass/Vol] 14.5 g/dL Screen only [facility] Laboratory - Microbiology an d Antimicrobial susceptibilityon 11-13-2024 FLUAV RNA KAYLEE+probe Ql (Resp) Not detected Not Detected [facility] FLUBV RNA KAYLEE+probe Ql (Resp) Not detected Not Detected [facility] RSV RNA KAYLEE+probe Ql (Resp) Not detected Not Detected [facility] SARS-CoV-2 (COVID-19) RNA KAYLEE+probe Ql (Resp) Not detected Not Detected [facility] NT PRO BNPon 11-13-2024 Natriuretic peptide B (Bld) [Mass/Vol] 6596 pg/mL High <[address] [facility] Comment on above: Performed By: #### L AB17, [id number], [id number] ####Dyed Yarn Operator: FREEMAN DOUGHERTY ([phone])[facility] ([facility])[address] [place] [address] Natriuretic peptide B [Mass/ Vol]on 11-13-2024 Interpretation and review of laboratory results Abnormal [facility] Natriuretic peptide B (Bld) [Mass/Vol] 6596 pg/mL High NINF - 450 pg/mL [facility] No Panel Informationon 11-13 P [place] [address] [facility] VA Interval [address] [facility] QRS [place] [address] [facility] QRSD Interval 83 ms [facility] QT Interval [address] [facility] QTC Interval [address] [facility] T Wave [place] -[address] [facility] CV EPIPHANY [facility] Interpretation and review of laboratory results Abnormal [facility] Source Of Oxygen Nasal Cannula (LPM) [facility] 2h Troponin HS (Serial 2nd Troponin) 124 ng/L High NINF - 14 ng/L [facility] Interpretation and review of laboratory results Abnormal [facility] Interpretation and review of laboratory results Normal [facility] Troponin HS Serial Baseline 12 ng/L NINF - 14 ng/L [facility] No Panel InformationOrdered By: Shala Ruiz on 11-13-2024 Interpretation and review of laboratory results Abnormal [facility] Source Of Oxygen Nasal Cannula (LPM) [facility] Nursing Noteon 11-13-[address] Franz and Dr. Jack notified patient has arrived to floor, room 466 A from ER. Normal [facility] PROCALCITONIN TESTon 025 PROCALCITONIN 0.02 ng/mL Normal <0.07 [facility] Comment on above: Result Comment: ORDE R COMMENTS: PCT <0.50 = Low risk of severe sepsis and/or septic shock. PCT >2.00 = High risk of severe sepsis and/or septic shock. Performed By: #### L [id number], [id number] ####Dyed Yarn Operator: FREEMAN DOUGHERTY ([phone])[address] Procalcitonin [Mass/Vol]on 0 11-13-2024 Interpretation and review of laboratory results Normal [facility] SARS-COV-2, FLU A/B, AND RSV COMBOon 11-13-2024 [...] In compliance with this authorization, please visit www.fda.gov/media/3749 35/download or www.fda.gov/media/142 36/download to access the applicable information sheets. Normal [facility] Comment on above: Performed By: #### L [id number] ####Dyed Yarn Operator: FREEMAN [phone])[facility] ([facility])[address] Vital signson 11-13-2024 Heart rate 83 /min bpm [facility] Oxygen saturation in Venous blood 84.2 % [facility] Vital signsOrdered By: Shala Ruiz on 11-13-2024 Oxygen saturation in Venous blood 55.4 % [facility] XR Chest Single viewon 11-13 [facility] RADIOLOGY SYSTEM [facility] EMERG[facility] RADIOLOGY [facility] Radiology Study observation (narrative) [facility] XR Chest Single viewOrdered By: Chasity Santizo on 11-13-[address] [facility] Work Phone: Hemoglobin A1con 09-26-2024 HbA1c (Bld) [Mass fraction] 5.6 % Low <=5.6 [facility] Comment on above: Order Comment: 303.2 Performed By: #### L [id number], L500.4050, L501.9985, L500.4100, L100.0500 #### [facility] [address] [place], [place], [id number] Anion gap in Serum or Plasma Ordered By: Evi Guevara on 09-25-2024 Anion gap [Moles/Vol] 10 mmol/L 5-15 [facility] BUN/creatinine ratioOrdered By: Evi Guevara on 09-25-2024 Urea nitrogen/Creatinine [Mass ratio] 21.8 mg/mg High 10-20 [facility] Bilirubin, totalOrdered By: Evi Guevara on 09-25-2024 Bilirubin [Mass/Vol] 0.35 mg/dL 0.00-1.30 [facility] CBC-Complete Blood Cnt No Di ffon 09-25-2024 Erythrocyte distribution width (RBC) [Ratio] 13.6 % Normal 11.6-14.6 [facility] Comment on above: Order Comment: 303.2 Performed By: #### L [id number], L500.4050, L501.9985, L500.4100, L100.0500 #### [facility] [address] [place], [address] Hematocrit (Bld) [Volume fraction] 35.6 % Low 37-47 [facility] Comment on above: Order Comment: 303.2 Performed By: #### L [id number], L500.4050, L501.9985, L500.4100, L100.0500 #### [facility] [address] [place], [address] Hemoglobin (Bld) [Mass/Vol] 12.1 g/dL Normal 12.0-15.0 [facility] Comment on above: Order Comment: 303.2 Performed By: #### L [id number], L500.4050, L501.9985, L500.4100, L100.0500 #### [facility] [address] [place], [address] MCH (RBC) [Entitic mass] 32.4 pg High 27.0-32.0 [facility] Comment on above: Order Comment: 303.2 Performed By: #### L [id number], L500.4050, L501.9985, L500.4100, L100.0500 #### [facility] [address] [place], [address] MCHC (RBC) [Mass/Vol] 34.0 g/dL Normal 32-36 [facility] Comment on above: Order Comment: 303.2 Performed By: #### L [id number], L500.4050, L501.9985, L500.4100, L100.0500 #### [facility] [address] [place], [address] MCV (RBC) [Entitic vol] 95.2 fL Normal 81-99 [facility] Comment on above: Order Comment: 303.2 Performed By: #### L [id number], L500.4050, L501.9985, L500.4100, L100.0500 #### [facility] [address] [place], [address] Platelet mean volume (Bld) [Entitic vol] 11.3 fL Normal 6.2-12.0 [facility] Comment on above: Order Comment: 303.2 Performed By: #### L 501.9520, L500.4050, L501.9985, L500.4100, L100.0500 #### [facility] [address] [place], [address] Platelets (Bld) [#/Vol] 202 10*3/uL Normal 150-450 [facility] Comment on above: Order Comment: 303.2 Performed By: #### L 501.9520, L500.4050, L501.9985, L500.4100, L100.0500 #### [facility] [address] [place], [address] RBC (Bld) [#/Vol] 3.74 10*6/uL Low 4.2-5.4 [facility] Comment on above: Order Comment: 303.2 Performed By: #### L 501.9520, L500.4050, L501.9985, L500.4100, L100.0500 #### [facility] [address] [place], [address] RDW SD 47.6 fl High 35.1-43.9 [facility] Comment on above: Order Comment: 303.2 Performed By: #### L 501.9520, L500.4050, L501.9985, L500.4100, L100.0500 #### [facility] [address] [place], [address] WBC (Bld) [#/Vol] 6.0 10*3/uL Normal 4.4-11.0 [facility] Comment on above: Order Comment: 303.2 Performed By: #### L 501.9520, L500.4050, L501.9985, L500.4100, L100.0500 #### [facility] [address] [place], [address] Calculated very low density lipoprotein (VLDL) cholesterol measurementOrdered By: Evi Guevara on 09-25-2024 VLDL Cholesterol 23 mg/dL 5-40 [facility] Carbon dioxide, total [Moles /volume] in Central venous bloodOrdered By: Evi Guevara on 09-25-2024 CO2 [Moles/Vol] 23.2 mmol/L 21.0-32.0 [facility] Chloride assayOrdered By: Ari Licea on 09-25-2024 Chloride [Moles/Vol] 106 mmol/L 98-108 [facility] Comprehensive Metabolic Prof ilon 09-25-2024 Albumin [Mass/Vol] 3.5 g/dL Normal 3.4-4.8 [facility] Comment on above: Order Comment: 303.2 Performed By: #### L 501.9520, L500.4050, L501.9985, L500.4100, L100.0500 #### [facility] [address] [place], [address] Albumin/Globulin [Mass ratio] 1.5 {ratio} Normal 0.9-2.4 [facility] Comment on above: Order Comment: 303.2 Performed By: #### L 501.9520, L500.4050, L501.9985, L500.4100, L100.0500 #### [facility] [address] [place], [address] ALK PHOS 89 U/L Normal 35-104 [facility] Comment on above: Order Comment: 303.2 Performed By: #### L 501.9520, L500.4050, L501.9985, L500.4100, L100.0500 #### [facility] [address] [place], [address] ALT [Catalytic activity/Vol] 8 U/L Normal <=34 [facility] Comment on above: Order Comment: 303.2 Performed By: #### L 501.9520, L500.4050, L501.9985, L500.4100, L100.0500 #### [facility] [address] [place], [address] AST [Catalytic activity/Vol] 22 U/L Normal <=31 [facility] Comment on above: Order Comment: 303.2 Performed By: #### L 501.9520, L500.4050, L501.9985, L500.4100, L100.0500 #### [facility] [address] [place], [address] Bilirubin [Mass/Vol] 0.35 mg/dL Normal 0.00-1.30 [facility] Comment on above: Order Comment: 303.2 Performed By: #### L 501.9520, L500.4050, L501.9985, L500.4100, L100.0500 #### [facility] [address] [place], [address] BUN/CRE 21.8 RATIO High 10-20 [facility] Comment on above: Order Comment: 303.2 Performed By: #### L 501.9520, L500.4050, L501.9985, L500.4100, L100.0500 #### [facility] [address] [place], [address] Calcium [Mass/Vol] 9.1 mg/dL Normal 7.6-11.0 [facility] Comment on above: Order Comment: 303.2 Performed By: #### L 501.9520, L500.4050, L501.9985, L500.4100, L100.0500 #### [facility] [address] [place], [address] Chloride [Moles/Vol] 106 mmol/L Normal 98-108 [facility] Comment on above: Order Comment: 303.2 Performed By: #### L 501.9520, L500.4050, L501.9985, L500.4100, L100.0500 #### [facility] [address] [place], [address] CO2 [Moles/Vol] 23.2 mmol/L Normal 21.0-32.0 [facility] Comment on above: Order Comment: 303.2 Performed By: #### L 501.9520, L500.4050, L501.9985, L500.4100, L100.0500 #### [facility] [address] [place], [address] Creatinine [Mass/Vol] 1.37 mg/dL High 0.70-1.20 [facility] Comment on above: Order Comment: 303.2 Performed By: #### L 501.9520, L500.4050, L501.9985, L500.4100, L100.0500 #### [facility] [address] [place], [address] GAP 10 Normal 5-15 [facility] Comment on above: Order Comment: 303.2 Performed By: #### L 501.9520, L500.4050, L501.9985, L500.4100, L100.0500 #### [facility] [address] [place], [address] GFR/1.73 sq M.predicted among non-blacks MDRD (S/P/Bld) [Vol rate/Area] 40 mL/min/{1.73_m2} Low >60 [facility] Comment on above: Order Comment: 303.2 Result Comment: mL/m in/1.73m2 CKD-EPI Creatinine Equation (2020) Performed By: #### L 501.9520, L500.4050, L501.9985, L500.4100, L100.0500 #### [facility] [address] [place], [address] Globulin (S) [Mass/Vol] 2.3 g/dL Normal 2.2-4.2 [facility] Comment on above: Order Comment: 303.2 Performed By: #### L 501.9520, L500.4050, L501.9985, L500.4100, L100.0500 #### [facility] [address] [place], [address] Glucose [Mass/Vol] 121 mg/dL High 70-99 [facility] Comment on above: Order Comment: 303.2 Performed By: #### L 501.9520, L500.4050, L501.9985, L500.4100, L100.0500 #### [facility] [address] [place], [address] Potassium [Moles/Vol] 3.7 mmol/L Normal 3.3-5.1 [facility] Comment on above: Order Comment: 303.2 Performed By: #### L 501.9520, L500.4050, L501.9985, L500.4100, L100.0500 #### [facility] [address] [place], [address] Sodium [Moles/Vol] 139 mmol/L Normal 133-145 [facility] Comment on above: Order Comment: 303.2 Performed By: #### L 501.9520, L500.4050, L501.9985, L500.4100, L100.0500 #### [facility] [address] [place], [address] T PROT 5.7 g/dL Low 5.9-8.4 [facility] Comment on above: Order Comment: 303.2 Performed By: #### L 501.9520, L500.4050, L501.9985, L500.4100, L100.0500 #### [facility] [address] [place], [address] Urea nitrogen [Mass/Vol] 30 mg/dL High 4-19 [facility] Comment on above: Order Comment: 303.2 Performed By: #### L 501.9520, L500.4053, L501.9942, L500.9887, L100.4332 #### [facility] [address] [place], [address] Erythrocyte distribution wid th (RBC) [Ratio]Ordered By: Evi Guevara on 09-25-2024 Erythrocyte distribution width (RBC) [Entitic vol] 47.6 fL High 35.1-43.9 [facility] Erythrocyte distribution wid th ratioOrdered By: Evi Guevara on 09-25-2024 Erythrocyte distribution width (RBC) [Ratio] 13.6 % 11.6-14.6 [facility] GFR/1.73 sq M.predicted malissa g non-blacks MDRD (S/P/Bld) [Vol rate/Area]Ordered By: Evi Guevara on 09-25-2024 Estimated GFR (MDRD) Non-Af Amer 40 Low >60 [facility] Comment on above: mL/min/1.73m2 CKD-EP I Creatinine Equation (2020) Hematocrit Auto (Bld) [Volum e fraction]Ordered By: Evi Guevara on 09-25-2024 Hematocrit (Bld) [Volume fraction] 35.6 % Low 37-47 [facility] Hemoglobin A1c percentageOrd ered By: Evi Guevara on 09-25-2024 HbA1c (Bld) [Mass fraction] 5.6 % Low >5.7 [facility] Hemoglobin measurementOrdere d By: Evi Guevara on 09-25-2024 Hemoglobin (Bld) [Mass/Vol] 12.1 g/dL 12.0-15.0 [facility] LDL calc ser/plasOrdered By: Evi Guevara on 09-25-2024 LDL Cholesterol, Calculated 70 mg/dL [facility] Comment on above: Bsxwsvbhta=118-016 m g/dL & Higher Bzbl=478 mg/dL or greater Laboratory - Chemistry and C hemistry - challengeOrdered By: Evi Guevara on 09-25-2024 AST [Catalytic activity/Vol] 22 U/L <32 [facility] Lipid Profileon 09-25-2024 CHOL:HDL 3.41 Normal [facility] Comment on above: Order Comment: 303.2 Performed By: #### L 501.9520, L500.4050, L501.9985, L500.4100, L100.0500 #### [facility] [address] [place], [address] Cholesterol [Mass/Vol] 132 mg/dL Normal <=200 [facility] Comment on above: Order Comment: 303.2 Result Comment: Chol esterol level, Desirable <200 mg/dL Borderline high cholesterol 200-239 mg/dL High cholesterol >=240 mg/dL Recommendations of the NCEP Adult Treatment Panel for the following risk-cutoff thresholds for the [place] population. Performed By: #### L 501.9520, L500.4050, L501.9985, L500.4100, L100.0500 #### [facility] [address] [place], [address] Cholesterol in HDL [Mass/Vol] 39 mg/dL Low [facility] Comment on above: Order Comment: 303.2 Result Comment: Sherly onal Cholesterol Education Program (NCEP) guidelines: <40 mg/dL: Low HDL-cholesterol (major risk factor for CHD) >= 60 mg/dL: High HDL-cholesterol (negative risk factor for CHD) HDL-cholesterol is affected by a number of factors, e.g. smoking, exercise, hormones, sex and age. Performed By: #### L 501.9520, L500.4050, L501.9985, L500.4100, L100.0500 #### [facility] [address] [place], [address] Cholesterol in LDL [Mass/Vol] 70 mg/dL Normal [facility] Comment on above: Order Comment: 303.2 Result Comment: Bord eoosdb=661-494 mg/dL Higher Twkt=366 mg/dL or greater Performed By: #### L 501.9520, L500.4050, L501.9985, L500.4100, L100.0500 #### [facility] [address] [place], [address] Cholesterol in VLDL [Mass/Vol] 23 mg/dL Normal 5-40 [facility] Comment on above: Order Comment: 303.2 Performed By: #### L 501.9520, L500.4050, L501.9985, L500.4100, L100.0500 #### [facility] [address] [place], [address] Triglyceride [Mass/Vol] 116 mg/dL Normal [facility] Comment on above: Order Comment: 303.2 Result Comment: The drugs N-Acetylcysteine and Metamizole may falsely depress this assay. Normal range: <150 mg/dL Borderline High: 150-199 mg/dL High: 200-499 mg/dL Very High: >500 mg/dL Performed By: #### L 501.9520, L500.4050, L501.9985, L500.4100, L100.0500 #### [facility] [address] [place], [address] MCV (mean corpuscular volume ) determinationOrdered By: Evi Guevara on 09-25-2024 MCV (RBC) [Entitic vol] 95.2 fL 81-99 [facility] Mean corpuscular hemoglobin (MCH) determinationOrdered By: Evi Guevara on 09-25-2024 MCH (RBC) [Entitic mass] 32.4 pg High 27.0-32.0 [facility] Mean corpuscular hemoglobin concentration (MCHC) determinationOrdered By: Evi Guevara on 09-25-2024 MCHC (RBC) [Mass/Vol] 34.0 g/dL 32-36 [facility] Mean platelet volume determi nationOrdered By: Evi Guevara on 09-25-2024 Platelet mean volume (Bld) [Entitic vol] 11.3 fL 6.2-12.0 [facility] Platelet countOrdered By: Ari Licea on 09-25-2024 Platelets (Bld) [#/Vol] 202 10*3/uL 150-450 [facility] Potassium (Unsp spec) [Mass/ Vol]Ordered By: Evi Guevara on 09-25-2024 Potassium [Moles/Vol] 3.7 mmol/L 3.3-5.1 [facility] RBC Auto (Bld) [#/Vol]Ordere d By: Evi Guevara on 09-25-2024 RBC (Bld) [#/Vol] 3.74 10*6/uL Low 4.2-5.4 [facility] Screening total cholesterol/ high density lipoprotein (HDL) cholesterol ratioOrdered By: Evi Guevara on 09-25-2024 Cholesterol.total/Yesi sterol in HDL [Mass ratio] 3.41 {ratio} [facility] Serum creatinine measurement (mass/volume)Ordered By: Evi Guevara on 09-25-2024 Creatinine [Mass/Vol] 1.37 mg/dL High 0.70-1.20 [facility] Serum globulin measurementOr dered By: Evi Guevara on 09-25-2024 Globulin (S) [Mass/Vol] 2.3 g/dL 2.2-4.2 [facility] Serum glucose measurement (m ass/volume)Ordered By: Evi Guevara on 09-25-2024 Glucose [Mass/Vol] 121 mg/dL High 70-99 [facility] Serum or plasma alanine barajas otransferase (ALT) measurementOrdered By: Evi Guevara on 09-25-2024 ALT [Catalytic activity/Vol] 8 U/L <35 [facility] Serum or plasma albumin jeffrey urement (mass/volume)Ordered By: Evi Guevara on 09-25-2024 Albumin [Mass/Vol] 3.5 g/dL 3.4-4.8 [facility] Serum or plasma albumin/glob ulin mass ratioOrdered By: Evi Guevara on 09-25-2024 Albumin/Globulin [Mass ratio] 1.5 {ratio} 0.9-2.4 [facility] Serum or plasma alkaline aisha sphatase measurementOrdered By: Evi Guevara on 09-25-2024 ALP [Catalytic activity/Vol] 89 U/L 35-104 [facility] Serum or plasma calcium jeffrey urement (mass/volume)Ordered By: Evi Guevara on 09-25-2024 Calcium [Mass/Vol] 9.1 mg/dL 7.6-11.0 [facility] Serum or plasma cholesterol in HDL measurement (mass/volume)Ordered By: Evi Guevara on 09-25-2024 Cholesterol in HDL [Mass/Vol] 39 mg/dL Low >40 [facility] Comment on above: National Cholesterol Education Program (NCEP) guidelines:<40 mg/dL: Low HDL-cholesterol (major risk factor for CHD)>= 60 mg/dL: High HDL-cholesterol (negative risk factor for CHD)HDL-cholesterol is affected by a number of factors, e.g. smoking, exercise, hormones, sex and age. Serum or plasma cholesterol measurement (mass/volume)Ordered By: Evi Guevara on 09-25-2024 Cholesterol [Mass/Vol] 132 mg/dL <201 [facility] Comment on above: Cholesterol level, D esirable <200 mg/dLBorderline high cholesterol 200-239 mg/dLHigh cholesterol >=240 mg/dLRecommendations of the NCEP Adult Treatment Panel for the following risk-cutoff thresholds for the [place] population. Serum or plasma urea nitroge n measurement (mass/volume)Ordered By: Evi Guevara on 09-25-2024 Urea nitrogen [Mass/Vol] 30 mg/dL High 4-19 [facility] Sodium levelOrdered By: Christian Guevara on 09-25-2024 Sodium [Moles/Vol] 139 mmol/L 133-145 [facility] TSH DL <= 0.005 mIU/L QnOrde red By: Evi Guevara on 09-25-2024 Thyroid Stimulating Hormone (TSH) 3.160 uIU/mL 0.300-4.200 [facility] Thyroid Stim Hormone (TSH)on 09-25-2024 TSH 3.160 uIU/mL Normal 0.300-4.200 [facility] Comment on above: Order Comment: 303.2 Performed By: #### L 501.8504, L500.4050, L501.9985, L500.4100, L100.0500 #### [facility] [address] [place], [address] Total proteinOrdered By: Mark Guevara on 09-25-2024 Protein [Mass/Vol] 5.7 g/dL Low 5.9-8.4 [facility] Triglycerides measurementOrd ered By: Evi [place] on 09-25-2024 Triglyceride [Mass/Vol] 116 mg/dL <199 [facility] Comment on above: The drugs N-Acetylcy steine and Metamizole may falsely depress this assay. Normal range: <150 mg/dLBorderline High: 150-199 mg/dLHigh: 200-499 mg/dLVery High: >500 mg/dL White blood cell (WBC) count Ordered By: Evi Guevara on 09-25-2024 WBC (Bld) [#/Vol] 6.0 10*3/uL 4.4-11.0 [facility] Urine Cultureon 09-03-2024 [facility] Copy of report sent to Infection Control Printer [id number] 09/01/24 0742 ROSANNA. Urine Culture RESULTS CALLED TO VINOD Monte 09/01/24 1023 Chelita Early. REPORT READ BACK BY . ESBL Escherichia coli [place] Count 11,000-25,000 MARKER ESBL producing OrganismA * [...] S Tobramycin Islt THI <=1 S Normal [facility] Comment on above: Performed By: #### L 501.9569, L500.4050, L501.9930, L500.8910, L100.4100 #### [facility] [address] [place], [address] Urine Cultureon 08-31-2024 [facility] #3 Organism is too fastidious for routine susceptibility studies. Urine Culture Copy of report sent to Infection Control [facility]inter [id number] 08/31/24 0735 JPSHELLEY. Morganella morganii sp sibonii [place] Count <1000 Meth. resistant Staph. aureus Meth. resistant Staph. aureus mecA Testing not performed Aerococcus viridans. [place] Count <1000 Enterococcus faecalis Aerococcus viridans. PMIR [place] Count <1000 Enterococcus faecalis Ampicillin Islt THI [...] TMP SMX Islt THI 40 S Normal [facility] Comment on above: Performed By: #### L 501.9520, L500.4050, L501.9985, L500.4100, L100.0500 #### [facility] [address] [place], [address] Bilirubin Test strip Ql (U)O rdered By: Evi Guevara on 08-30-2024 Bilirubin Ql (U) Negative Negative [facility] Epithelial cells.squamous LM Ql (Urine sed)Ordered By: Evi Guevara on 08-30-2024 Epithelial cells.squamous LM.HPF (Urine sed) [#/Area] 0 /[HPF] 5-10 [facility] Glucose Ql (U)Ordered By: Ari Licea on 08-30-2024 Urine Glucose (UA) Normal mg/dl Normal [facility] Ketones Test strip Ql (U)Ord ered By: Evi Guevara on 08-30-2024 Ketones Ql (U) Negative Negative [facility] Microscopic analysis of urin e for red blood cells (RBC)Ordered By: Evi Guevara on 08-30-2024 Urine RBC 0 SEEN /hpf 0-5 [facility] Mucus LM Ql (Urine sed)Order ed By: Evi Guevara on 08-30-2024 Mucus Ql (Urine sed) 0 SEEN /hpf [facility] Nitrite Test strip Ql (U)Ord ered By: Evi Guevara on 08-30-2024 Nitrite Ql (U) Positive High Negative [facility] Protein Test strip Ql (U)Ord ered By: Evi Guevara on 08-30-2024 Protein Ql (U) 15 mg/dl High Negative [facility] Urinalysis, Completeon 08-30 BACTERIA 1+ /hpf Normal None Seen [facility] Comment on above: Order Comment: CLEAN CATCH Performed By: #### L 400.0001, M100.2200 #### [facility] [address] [place], [address] RBC 0 SEEN Normal 0-5 [facility] Comment on above: Order Comment: CLEAN CATCH Performed By: #### L 400.0001, M100.2200 #### [facility] [address] [place], [address] WBC 0-5 SEEN Normal 0-5 [facility] Comment on above: Order Comment: CLEAN CATCH Performed By: #### L 400.0001, M100.2200 #### [facility] [address] [place], [address] EPI,SQUAMOUS 0 SEEN Normal 5-10 [facility] Comment on above: Order Comment: CLEAN CATCH Performed By: #### L 400.0001, M100.2200 #### [facility] [address] [place], [address] Mucus Ql (Urine sed) 0 SEEN Normal [facility] Comment on above: Order Comment: CLEAN CATCH Performed By: #### L 400.0001, M100.2200 #### [facility] [address] [place], [address] Urine blood detectionOrdered By: Evi Guevara on 08-30-2024 Urine Occult Blood 10 /ul High Negative [facility] Urine clarityOrdered By: Mark Guevara on 08-30-2024 Clarity (U) Clear Clear [facility] Urine color determinationOrd ered By: Evi Guevara on 08-30-2024 Color (U) Straw Yellow [facility] Urine cultureOrdered By: Mark Guevara on 08-30-2024 Bacteria identified Cx Nom (U) ESBL Escherichia coli Abnormal [facility] Bacteria identified Cx Nom (U) ESBL Escherichia coli Abnormal [facility] Urine leukocyte esterase det ection by dipstickOrdered By: Evi Guevara on 08-30-2024 Leukocyte esterase Test strip Ql (U) 500 /ul High Negative [facility] Urine pHOrdered By: Evi gillette on 08-30-2024 pH (U) 6.0 [pH] 5.0 - 8.0 [facility] Urine sediment bacteria coun t by microscopy (number/high power field)Ordered By: Evi Guevara on 08-30-2024 Bacteria LM.HPF (Urine sed) [#/Area] 1 /[HPF] None Seen [facility] Urine specific gravity measu rementOrdered By: Evi Guevara on 08-30-2024 Specific gravity (U) [Rel density] 1.010 1.002-1.030 [facility] Urobilinogen Ql (U)Ordered B y: Evi Guevara on 08-30-2024 Urine Urobilinogen Normal mg/dl Normal [facility] White blood cell countOrdere d By: Evi Guevara on 08-30-2024 Urine WBC 0-5 SEEN /hpf 0-5 [facility] Urinalysis, Routine (Dipstic k)on 08-28-2024 BILIRUBIN URINE Negative Normal Negative [facility] Comment on above: Order Comment: 303.2 Performed By: #### L 501.9520, L500.4050, L501.9985, L500.4100, L100.0500 #### [facility] [address] [place], [address] Clarity (U) Clear Normal Clear [facility] Comment on above: Order Comment: 303.2 Performed By: #### L 501.9520, L500.4050, L501.9985, L500.4100, L100.0500 #### [facility] [address] [place], [address] Color (U) Straw Normal Yellow [facility] Comment on above: Order Comment: 303.2 Performed By: #### L 501.9520, L500.4050, L501.9985, L500.4100, L100.0500 #### [facility] [address] [place], [address] GLUCOSE, UR Normal Normal Normal [facility] Comment on above: Order Comment: 303.2 Performed By: #### L 501.9520, L500.4050, L501.9985, L500.4100, L100.0500 #### [facility] [address] [place], [address] KETONE UR Negative Normal Negative [facility] Comment on above: Order Comment: 303.2 Performed By: #### L 501.9520, L500.4050, L501.9985, L500.4100, L100.0500 #### [facility] [address] [place], [address] LEUK ESTERASE Negative Normal Negative [facility] Comment on above: Order Comment: 303.2 Performed By: #### L 501.9520, L500.4050, L501.9985, L500.4100, L100.0500 #### [facility] [address] [place], [address] Nitrite Ql (U) Negative Normal Negative [facility] Comment on above: Order Comment: 303.2 Performed By: #### L 501.9520, L500.4050, L501.9985, L500.4100, L100.0500 #### [facility] [address] [place], [address] OCCULT BLOOD-UR 10 /ul Abnormal Negative [facility] Comment on above: Order Comment: 303.2 Performed By: #### L 501.9520, L500.4050, L501.9985, L500.4100, L100.0500 #### [facility] [address] [place], [address] pH UR 6.0 Normal 5.0 - 8.0 [facility] Comment on above: Order Comment: 303.2 Performed By: #### L 501.9520, L500.4050, L501.9985, L500.4100, L100.0500 #### [facility] [address] [place], [address] PROT DIPSTX Negative Normal Negative [facility] Comment on above: Order Comment: 303.2 Performed By: #### L 501.9520, L500.4050, L501.9985, L500.4100, L100.0500 #### [facility] [address] [place], [address] SP.GR. DIPSTX 1.010 Normal 1.002-1.030 [facility] Comment on above: Order Comment: 303.2 Performed By: #### L 501.9520, L500.4050, L501.9985, L500.4100, L100.0500 #### [facility] [address] [place], [address] UROBILI Normal Normal Normal [facility] Comment on above: Order Comment: 303.2 Performed By: #### L 501.9520, L500.4050, L501.9985, L500.4100, L100.0500 #### [facility] [address] [place], [address] Bilirubin Test strip Ql (U)O rdered By: [facility] on 08-27-2024 Bilirubin Ql (U) Negative Negative [facility] Glucose Ql (U)Ordered By: [facility] on 08-27-2024 Urine Glucose (UA) Normal mg/dl Normal [facility] Ketones Test strip Ql (U)Ord ered By: [employer] [facility] on 08-27-2024 Ketones Ql (U) Negative Negative [facility] Nitrite Test strip Ql (U)Ord ered By: [facility] on 08-27-2024 Nitrite Ql (U) Negative Negative [facility] Protein Test strip Ql (U)Ord ered By: [employer] [facility] on 08-27-2024 Protein Ql (U) Negative Negative [facility] Urine blood detectionOrdered By: [facility] [facility] on 08-27-2024 Urine Occult Blood 10 /ul High Negative [facility] Urine clarityOrdered By: [facility] on 08-27-2024 Clarity (U) Clear Clear [facility] Urine color determinationOrd ered By: [facility] on 08-27-2024 Color (U) Straw Yellow [facility] Urine cultureOrdered By: [facility] on 08-27-2024 Bacteria identified Cx Nom (U) Morganella morganii sp sibonii Abnormal [facility] Bacteria identified Cx Nom (U) Meth. resistant Staph. aureus Abnormal [facility] Bacteria identified Cx Nom (U) Aerococcus viridans. Abnormal [facility] Bacteria identified Cx Nom (U) Enterococcus faecalis Abnormal [facility] Bacteria identified Cx Nom (U) Proteus mirabilis Abnormal [facility] Urine leukocyte esterase det ection by dipstickOrdered By: [facility] on 08-27-2024 Leukocyte esterase Test strip Ql (U) Negative Negative [facility] Urine pHOrdered By: [facility] on 08-27-2024 pH (U) 6.0 [pH] 5.0 - 8.0 [facility] Urine specific gravity measu rementOrdered By: [facility] on 08-27-2024 Specific gravity (U) [Rel density] 1.010 1.002-1.030 [facility] Urobilinogen Ql (U)Ordered B y: [facility] on 08-27-2024 Urine Urobilinogen Normal mg/dl Normal [facility] Urine cultureOrdered By: [facility] on 08-26-2024 Bacteria identified Cx Nom (U) Morganella morganii sp sibonii Abnormal [facility] Bacteria identified Cx Nom (U) Meth. resistant Staph. aureus Abnormal [facility] Bacteria identified Cx Nom (U) Aerococcus viridans. Abnormal [facility] Bacteria identified Cx Nom (U) Enterococcus faecalis Abnormal [facility] Bacteria identified Cx Nom (U) Proteus mirabilis Abnormal [facility] Albumin to globulin ratioOrd ered By: Eiv Guevara on 08-21-2024 Albumin/Globulin [Mass ratio] 1.0 {ratio} 0.9-2.4 [facility] Bilirubin, totalOrdered By: Evi Guevara on 08-21-2024 Bilirubin [Mass/Vol] 0.40 mg/dL 0.20-1.00 [facility] Comment on above: For patients on eltr ombopag therapy, use of Dimension [place] TBIL is not recommended. Blood urea nitrogen (BUN)/cr eatinine ratioOrdered By: Evi Guevara on 08-21-2024 Urea nitrogen/Creatinine [Mass ratio] 25.8 mg/mg High 10-20 [facility] C-reactive protein measureme nt by high sensitivity methodOrdered By: Evi Guevara on 08-21-2024 C-Reactive Protein Extended Range < 2.90 mg/L 0.0-3.0 [facility] Comment on above: C-Reactive Protein ( CRP) provides useful information for thediagnosis, therapy and monitoring of inflammatory processesand associated diseases. For the evaluation of Relative Riskfor Cardiovascular Disease, a High Sensitivity CRP (HSCRP)should be ordered. CBC-Complete Blood Cnt No Di ffon 08-21-2024 Erythrocyte distribution width (RBC) [Ratio] 13.6 % Normal 11.6-14.6 [facility] Comment on above: Order Comment: 303.2 Performed By: #### L [id number], L500.4050, L501.9985, L500.4100, L100.0500 #### [facility] [address] [place], [address] Hematocrit (Bld) [Volume fraction] 37.2 % Normal 37-47 [facility] Comment on above: Order Comment: 303.2 Performed By: #### L [id number], L500.4050, L501.9985, L500.4100, L100.0500 #### [facility] [address] [place], [address] Hemoglobin (Bld) [Mass/Vol] 12.7 g/dL Normal 12.0-15.0 [facility] Comment on above: Order Comment: 303.2 Performed By: #### L [id number], L500.4050, L501.9985, L500.4100, L100.0500 #### [facility] [address] [place], [address] MCH (RBC) [Entitic mass] 32.5 pg High 27.0-32.0 [facility] Comment on above: Order Comment: 303.2 Performed By: #### L [id number], L500.4050, L501.9985, L500.4100, L100.0500 #### [facility] [address] [place], [address] MCHC (RBC) [Mass/Vol] 34.1 g/dL Normal 32-36 [facility] Comment on above: Order Comment: 303.2 Performed By: #### L [id number], L500.4050, L501.9985, L500.4100, L100.0500 #### [facility] [address] [place], [address] MCV (RBC) [Entitic vol] 95.1 fL Normal 81-99 [facility] Comment on above: Order Comment: 303.2 Performed By: #### L [id number], L500.4050, L501.9985, L500.4100, L100.0500 #### [facility] [address] [place], [address] Platelet mean volume (Bld) [Entitic vol] 11.1 fL Normal 6.2-12.0 [facility] Comment on above: Order Comment: 303.2 Performed By: #### L [id number], L500.4050, L501.9985, L500.4100, L100.0500 #### [facility] [address] [place], [address] Platelets (Bld) [#/Vol] 239 10*3/uL Normal 150-450 [facility] Comment on above: Order Comment: 303.2 Performed By: #### L 501.9520, L500.4050, L501.9985, L500.4100, L100.0500 #### [facility] [address] [place], [address] RBC (Bld) [#/Vol] 3.91 10*6/uL Low 4.2-5.4 [facility] Comment on above: Order Comment: 303.2 Performed By: #### L 501.9520, L500.4050, L501.9985, L500.4100, L100.0500 #### [facility] [address] [place], [address] RDW SD 47.3 fl High 35.1-43.9 [facility] Comment on above: Order Comment: 303.2 Performed By: #### L [id number], L500.4050, L501.9985, L500.4100, L100.0500 #### [facility] [address] [place], [address] WBC (Bld) [#/Vol] 8.0 10*3/uL Normal 4.4-11.0 [facility] Comment on above: Order Comment: 303.2 Performed By: #### L 501.9520, L500.4050, L501.9985, L500.4100, L100.0500 #### [facility] [address] [place], [address] CRPon 08-21-2024 C-REACTIVE PROT < 2.90 Normal 0.0-3.0 [facility] Comment on above: Order Comment: 303.2 Result Comment: C-Re active Protein (CRP) provides useful information for the diagnosis, therapy and monitoring of inflammatory processes and associated diseases. For the evaluation of Relative Risk for Cardiovascular Disease, a High Sensitivity CRP (HSCRP) should be ordered. Performed By: #### L 501.9520, L500.4050, L501.9985, L500.4100, L100.0500 #### [facility] [address] [place], [address] Carbon dioxide measurementOr dered By: Evi Guevara on 02-17-2025 CO2 [Moles/Vol] 22.0 mmol/L 21.0-32.0 [facility] Chloride measurementOrdered By: Evi Guevara on 08-21-2024 Chloride [Moles/Vol] 110 mmol/L High 98-107 [facility] Comprehensive Metabolic Prof ilon 08-21-2024 Albumin [Mass/Vol] 3.0 g/dL Low 3.2-5.0 [facility] Comment on above: Order Comment: 303.2 Performed By: #### L 501.9520, L500.4050, L501.9985, L500.4100, L100.0500 #### [facility] [address] [place], [address] Albumin/Globulin [Mass ratio] 1.0 {ratio} Normal 0.9-2.4 [facility] Comment on above: Order Comment: 303.2 Performed By: #### L [id number], L500.4050, L501.9985, L500.4100, L100.0500 #### [facility] [address] [place], [address] ALK P 102 U/L Normal 45-117 [facility] Comment on above: Order Comment: 303.2 Performed By: #### L 501.9520, L500.4050, L501.9985, L500.4100, L100.0500 #### [facility] [address] [place], [address] ALT [Catalytic activity/Vol] 13 U/L Normal 13-56 [facility] Comment on above: Order Comment: 303.2 Performed By: #### L [id number], L500.4050, L501.9985, L500.4100, L100.0500 #### [facility] [address] [place], [address] AST [Catalytic activity/Vol] 20 U/L Normal 15-37 [facility] Comment on above: Order Comment: 303.2 Result Comment: Slig ht Hemolysis, Result may be falsely increased. Performed By: #### L 501.9520, L500.4050, L501.9985, L500.4100, L100.0500 #### [facility] [address] [place], [address] Bilirubin [Mass/Vol] 0.40 mg/dL Normal 0.20-1.00 [facility] Comment on above: Order Comment: 303.2 Result Comment: For patients on eltrombopag therapy, use of Dimension Clay TBIL is not recommended. Performed By: #### L 501.9520, L500.4050, L501.9985, L500.4100, L100.0500 #### [facility] [address] [place], [address] BUN/CRE 25.8 RATIO High 10-20 [facility] Comment on above: Order Comment: 303.2 Performed By: #### L 501.9520, L500.4050, L501.9985, L500.4100, L100.0500 #### [facility] [address] [place], [address] CA,Total 8.7 mg/dL Normal 8.5-10.1 [facility] Comment on above: Order Comment: 303.2 Performed By: #### L 501.9520, L500.4050, L501.9985, L500.4100, L100.0500 #### [facility] [address] [place], [address] Chloride [Moles/Vol] 110 mmol/L High 98-107 [facility] Comment on above: Order Comment: 303.2 Performed By: #### L 501.9520, L500.4050, L501.9985, L500.4100, L100.0500 #### [facility] [address] [place], [address] CO2 [Moles/Vol] 22.0 mmol/L Normal 21.0-32.0 [facility] Comment on above: Order Comment: 303.2 Performed By: #### L 501.9520, L500.4050, L501.9985, L500.4100, L100.0500 #### [facility] [address] [place], [address] Creatinine [Mass/Vol] 1.20 mg/dL High 0.55-1.02 [facility] Comment on above: Order Comment: 303.2 Result Comment: The validity of the calculated GFR GFRAA in patients over 70 years has not been determined. Clinical correlation is essential. Performed By: #### L 501.9520, L500.4050, L501.9985, L500.4100, L100.0500 #### [facility] [address] [place], [address] EST GFR - AA 56 mL/min Low >60 [facility] Comment on above: Order Comment: 303.2 Result Comment: Afri can [place] GFR Calc Performed By: #### L 501.9520, L500.4050, L501.9985, L500.4100, L100.0500 #### [facility] [address] [place], [address] GAP 7 Normal 5-15 [facility] Comment on above: Order Comment: 303.2 Performed By: #### L 501.9520, L500.4050, L501.9985, L500.4100, L100.0500 #### [facility] [address] [place], [address] GFR/1.73 sq M.predicted among non-blacks MDRD (S/P/Bld) [Vol rate/Area] 46 mL/min/{1.73_m2} Low >60 [facility] Comment on above: Order Comment: 303.2 Result Comment: Non- GFR Calc Performed By: #### L 501.9520, L500.4050, L501.9985, L500.4100, L100.0500 #### [facility] [address] [place], [address] Globulin (S) [Mass/Vol] 3.1 g/dL Normal 2.2-4.2 [facility] Comment on above: Order Comment: 303.2 Performed By: #### L 501.9520, L500.4050, L501.9985, L500.4100, L100.0500 #### [facility] [address] [place], [address] Glucose [Mass/Vol] 129 mg/dL High 74-106 [facility] Comment on above: Order Comment: 303.2 Result Comment: Fast ing Glucose result greater than or equal to 126 mg/dL suggests DIABETES MELLITUS per A.D.A. criteria. Performed By: #### L 501.9520, L500.4050, L501.9985, L500.4100, L100.0500 #### [facility] [address] [place], [address] Potassium [Moles/Vol] 4.4 mmol/L Normal 3.5-5.1 [facility] Comment on above: Order Comment: 303.2 Result Comment: Slig ht Hemolysis, Result may be falsely increased. Performed By: #### L 501.9520, L500.4050, L501.9985, L500.4100, L100.0500 #### [facility] [address] [place], [address] Sodium [Moles/Vol] 138 mmol/L Normal 136-145 [facility] Comment on above: Order Comment: 303.2 Performed By: #### L 501.9520, L500.4050, L501.9985, L500.4100, L100.0500 #### [facility] [address] [place], [address] T PROT 6.1 g/dL Low 6.4-8.2 [facility] Comment on above: Order Comment: 303.2 Performed By: #### L 501.9520, L500.4050, L501.9985, L500.4100, L100.0500 #### [facility] [address] [place], [address] Urea nitrogen [Mass/Vol] 31 mg/dL High 7-18 [facility] Comment on above: Order Comment: 303.2 Performed By: #### L 501.9520, L500.4050, L501.9985, L500.4100, L100.0500 #### [facility] [address] [place], [address] Erythrocyte Sed Rateon 08-21 SED RATE 8 mm/hr Normal 0-30 [facility] Comment on above: Order Comment: 303.2 Performed By: #### L 501.9520, L500.4050, L501.9985, L500.4100, L100.0500 #### [facility] [address] [place], [address] Erythrocyte distribution wid th ratioOrdered By: Evi Guevara on 08-21-2024 Erythrocyte distribution width (RBC) [Ratio] 13.6 % 11.6-14.6 [facility] Erythrocyte distribution wid th standard deviationOrdered By: Evi Guevara on 08-21-2024 Erythrocyte distribution width (RBC) [Entitic vol] 47.3 fL High 35.1-43.9 [facility] Erythrocyte sedimentation ra teOrdered By: Evi Guevara on 08-21-2024 ESR (Bld) [Velocity] 8 mm/h 0-30 [facility] Estimated glomerular filtrat ion rate (GFR) AmericanOrdered By: Evi Guevara on 08-21-2024 Estimated GFR (MDRD) Amer 56 mL/min Low >60 [facility] Comment on above: GFR Calc Glomerular filtration rate ( GFR) estimationOrdered By: Evi Guevara on 08-21-2024 Estimated GFR (MDRD) Non-Af Amer 46 mL/min Low >60 [facility] Comment on above: Non- GFR Calc Glucose measurementOrdered B y: Evi Guevara on 08-21-2024 Glucose [Mass/Vol] 129 mg/dL High 74-106 [facility] Comment on above: Fasting Glucose resu lt greater than or equal to 126 mg/dL suggests DIABETES MELLITUS per A.D.A. criteria. Hematocrit Auto (Bld) [Volum e fraction]Ordered By: Evi Guevara on 08-21-2024 Hematocrit (Bld) [Volume fraction] 37.2 % 37-47 [facility] Hemoglobin measurementOrdere d By: Evi Guevara on 08-21-2024 Hemoglobin (Bld) [Mass/Vol] 12.7 g/dL 12.0-15.0 [facility] - Chemistry and C hemistry - challengeOrdered By: Evi Guevara on 08-21-2024 AST [Catalytic activity/Vol] 20 U/L 15-37 [facility] Comment on above: Slight Hemolysis, Re sult may be falsely increased. MCV (mean corpuscular volume ) determinationOrdered By: Evi Guevara on 08-21-2024 MCV (RBC) [Entitic vol] 95.1 fL 81-99 [facility] Mean corpuscular hemoglobin (MCH) determinationOrdered By: Evi Guevara on 08-21-2024 MCH (RBC) [Entitic mass] 32.5 pg High 27.0-32.0 [facility] Mean corpuscular hemoglobin concentration (MCHC) determinationOrdered By: Evi Guevara on 08-21-2024 MCHC (RBC) [Mass/Vol] 34.1 g/dL 32-36 [facility] Mean platelet volume determi nationOrdered By: Evi Guevara on 08-21-2024 Platelet mean volume (Bld) [Entitic vol] 11.1 fL 6.2-12.0 [facility] Platelet countOrdered By: Ari Licea on 08-21-2024 Platelets (Bld) [#/Vol] 239 10*3/uL 150-450 [facility] Potassium measurementOrdered By: Evi Guevara on 08-21-2024 Potassium [Moles/Vol] 4.4 mmol/L 3.5-5.1 [facility] Comment on above: Slight Hemolysis, Re sult may be falsely increased. RBC Auto (Bld) [#/Vol]Ordere d By: Evi Guevara on 08-21-2024 RBC (Bld) [#/Vol] 3.91 10*6/uL Low 4.2-5.4 [facility] Serum anion gap measurementO rdered By: Evi Guevara on 08-21-2024 Anion gap [Moles/Vol] 7 mmol/L 5-15 [facility] Serum globulin measurementOr dered By: Evi Guevara on 08-21-2024 Globulin (S) [Mass/Vol] 3.1 g/dL 2.2-4.2 [facility] Serum or plasma alanine barajas otransferase (ALT) measurementOrdered By: Evi Guevara on 08-21-2024 ALT [Catalytic activity/Vol] 13 U/L 13-56 [facility] Serum or plasma albumin jeffrey urement (mass/volume)Ordered By: Evi Guevara on 08-21-2024 Albumin [Mass/Vol] 3.0 g/dL Low 3.2-5.0 [facility] Serum or plasma alkaline aisha sphatase measurementOrdered By: Evi Guevara on 08-21-2024 ALP [Catalytic activity/Vol] 102 U/L 45-117 [facility] Serum or plasma calcium jeffrey urement (mass/volume)Ordered By: Evi Guevara on 08-21-2024 Calcium [Mass/Vol] 8.7 mg/dL 8.5-10.1 [facility] Serum or plasma creatinine m easurement (mass/volume)Ordered By: Evi Guevara on 08-21-2024 Creatinine [Mass/Vol] 1.20 mg/dL High 0.55-1.02 [facility] Comment on above: The validity of the calculated GFR & GFRAA in patients over 70 years has not been determined. Clinical correlation is essential. Serum or plasma urea nitroge n measurement (mass/volume)Ordered By: Evi Guevara on 08-21-2024 Urea nitrogen [Mass/Vol] 31 mg/dL High 7-18 [facility] Sodium levelOrdered By: Christian Guevara on 08-21-2024 Sodium [Moles/Vol] 138 mmol/L 136-145 [facility] TSH QnOrdered By: Evi perry on 08-21-2024 Thyroid Stimulating Hormone (TSH) 4.910 uIU/mL High 0.358-3.740 [facility] Thyroid Stim Hormone (TSH)on 08-21-2024 TSH 4.910 uIU/mL High 0.358-3.740 [facility] Comment on above: Order Comment: 303.2 Performed By: #### L 501.9520, L500.4050, L501.9985, L500.4100, L100.0500 #### [facility] [address] [place], [place], [id number] Total proteinOrdered By: Mark Guevara on 08-21-2024 Protein [Mass/Vol] 6.1 g/dL Low 6.4-8.2 [facility] Vitamin B12on 08-21-2024 Cobalamin (Vitamin B12) [Mass/Vol] 278 pg/mL Normal -911 [facility] Comment on above: Order Comment: 303.2 Performed By: #### L 501.9520, L500.4050, L501.9985, L500.4100, L100.0500 #### [facility] [address] [place], [place], [id number] Vitamin B12 measurementOrder ed By: Evi Guevara on 08-21-2024 Cobalamin (Vitamin B12) [Mass/Vol] 278 pg/mL 911 [facility] White blood cell (WBC) count Ordered By: Evi Guevara on 08-21-2024 WBC (Bld) [#/Vol] 8.0 10*3/uL 4.4-11.0 [facility] CNOVon 08-18-2024 CNOV Office Visit ([facility] ) CARLINE VILLARREAL ([id number]) 1945 F Date Time Provider Department 08/18/24 1:00 PM ANGELINA MINER [facility] During your visit today, we recorded [...] review: Seen on 12/16/23 for headache at [facility], lives in nursing facility. Noting hx of migraines. Hx of previous stroke in 2016 and some residual weakness left sided from this. On ASA and thinners. Last LDL was 58. Patient presents with her son and [id number] for evaluation of worsening headaches. History is [...] lobe. * Poor visualization of the left PRODUCT FINISHER which is likely severely stenotic with poor [...] for pertine (more content not included)... Normal [facility] Urine Cultureon 08-03-2024 [facility] STRAIGHT CATH Proteus mirabilis [place] Count 50,000-80,000 Proteus mirabilis: REACTION Ampicillin Islt THI <=2 Ampicillin+Sulbac Islt THI <=2 S Cefepime Islt THI <=0.12 S cefTRIAXone Islt THI <=0.25 S Ciprofloxacin Islt THI >=4 R Gentamicin Islt THI <=1 S levoFLOXacin Islt THI >=8 R Meropenem Islt THI <=0.25 S Nitrofurantoin Islt THI 128 R Pip+Tazo Islt THI <=4 S TMP SMX Islt THI <=20 S Normal [facility] Comment on above: Performed By: #### L 400.0001, M100.0 #### [facility] [address] [place], [place], [id number] Urinalysis, Completeon 08-01 BACTERIA 2+ /hpf Normal None Seen [facility] Comment on above: Order Comment: STRAI T CATH CATHETER SPECIMEN Result Comment: AMENDED REPORT 08/01/24 1051 BACTERIA previously reported as: 0 SEEN /hpf Performed By: #### L 400.0001, M100.0 #### [facility] [address] [place], [address] RBC 0-5 SEEN Normal 0-5 [facility] Comment on above: Order Comment: STRAI T CATH CATHETER SPECIMEN Result Comment: AMENDED REPORT 08/01/24 1050 RBC-UA previously reported as: 0 SEEN /hpf Performed By: #### L 400.0001, M100.2200 #### [facility] [address] [place], [address] WBC 0-5 SEEN Normal 0-5 [facility] Comment on above: Order Comment: STRAI GHT CATH CATHETER SPECIMEN Result Comment: AMENDED REPORT 08/01/24 1050 WBC previously reported as: 0 SEEN /hpf Performed By: #### L 400.0001, M100.2200 #### [facility] [address] [place], [address] Bilirubin Test strip Ql (U)O rdered By: Evi Guevara on 07-31-2024 Bilirubin Ql (U) Negative Negative [facility] Epithelial cells.squamous LM Ql (Urine sed)Ordered By: Evi Guevara on 07-31-2024 Epithelial cells.squamous LM.HPF (Urine sed) [#/Area] 0 /[HPF] 5-10 [facility] Glucose Ql (U)Ordered By: Ari Licea on 07-31-2024 Urine Glucose (UA) Normal mg/dl Normal [facility] Ketones Test strip Ql (U)Ord ered By: Evi Guevara on 07-31-2024 Ketones Ql (U) Negative Negative [facility] Microscopic analysis of urin e for red blood cells (RBC)Ordered By: Evi Guevara on 07-31-2024 Urine RBC 0-5 SEEN /hpf 0-5 [facility] Comment on above: Previous reported re sult: 0 SEEN /hpfEdited by: OLEG on 08/01/24:1050 AMENDED REPORT 08/01/24 1050 RBC-UA previously reported as: 0 SEEN /hpf Mucus LM Ql (Urine sed)Order ed By: Evi Guevara on 07-31-2024 Mucus Ql (Urine sed) 0 SEEN /hpf [facility] Nitrite Test strip Ql (U)Ord ered By: Evi Guevara on 07-31-2024 Nitrite Ql (U) Negative Negative [facility] Protein Test strip Ql (U)Ord ered By: Evi Guevara on 07-31-2024 Protein Ql (U) Negative Negative [facility] Urine blood detectionOrdered By: Evi Guevara on 07-31-2024 Urine Occult Blood 50 /ul High Negative [facility] Urine clarityOrdered By: Mark Guevara on 07-31-2024 Clarity (U) Clear Clear [facility] Urine color determinationOrd ered By: Evi Guevara on 07-31-2024 Color (U) Straw Yellow [facility] Urine cultureOrdered By: Mark Guevara on 07-31-2024 Bacteria identified Cx Nom (U) Proteus mirabilis Abnormal [facility] Bacteria identified Cx Nom (U) Proteus mirabilis Abnormal [facility] Urine leukocyte esterase det ection by dipstickOrdered By: Evi Guevara on 07-31-2024 Leukocyte esterase Test strip Ql (U) 500 /ul High Negative [facility] Urine pHOrdered By: Evi gillette on 07-31-2024 pH (U) 7.0 [pH] 5.0 - 8.0 [facility] Urine sediment bacteria coun t by microscopy (number/high power field)Ordered By: Evi Guevara on 07-31-2024 Bacteria LM.HPF (Urine sed) [#/Area] 2 /[HPF] None Seen [facility] Comment on above: Previous reported re sult: 0 SEEN /hpfEdited by: OLEG on 08/01/24:1051 AMENDED REPORT 08/01/24 1051 BACTERIA previously reported as: 0 SEEN /hpf Urine specific gravity measu rementOrdered By: Evi Guevara on 07-31-2024 Specific gravity (U) [Rel density] 1.005 1.002-1.030 [facility] Urobilinogen Ql (U)Ordered B y: Evi Guevara on 07-31-2024 Urine Urobilinogen Normal mg/dl Normal [facility] White blood cell countOrdere d By: Evi Guevara on 07-31-2024 Urine WBC 0-5 SEEN /hpf 0-5 [facility] Comment on above: Previous reported re sult: 0 SEEN /hpfEdited by: OLEG on 08/01/24:1050 AMENDED REPORT 08/01/24 1050 WBC previously reported as: 0 SEEN /hpf Basic Metabolic Profile (BMP )on 07-13-2024 BUN/CRE 25.5 RATIO High 10-20 [facility] Comment on above: Order Comment: 303.2 Performed By: #### L 501.9572, L500.4050, L501.9985, L500.4100, L100.0500 #### [facility] [place], [address] CA,Total 8.9 mg/dL Normal 8.5-10.1 [facility] Comment on above: Order Comment: 303.2 Performed By: #### L 501.9520, L500.4050, L501.9985, L500.4100, L100.0500 #### [facility] [facility] [address] [place], [address] Chloride [Moles/Vol] 109 mmol/L High 98-107 [facility] Comment on above: Order Comment: 303.2 Performed By: #### L 501.9520, L500.4050, L501.9985, L500.4100, L100.0500 #### [facility] [address] [place], [address] CO2 [Moles/Vol] 27.0 mmol/L Normal 21.0-32.0 [facility] Comment on above: Order Comment: 303.2 Performed By: #### L 501.9520, L500.4050, L501.9985, L500.4100, L100.0500 #### [facility] [address] [place], [address] Creatinine [Mass/Vol] 1.37 mg/dL High 0.55-1.02 [facility] Comment on above: Order Comment: 303.2 Result Comment: The validity of the calculated GFR GFRAA in patients over 70 years has not been determined. Clinical correlation is essential. Performed By: #### L 501.9520, L500.4050, L501.9985, L500.4100, L100.0500 #### [facility] [address] [place], [address] EST GFR - AA 48 mL/min Low >60 [facility] Comment on above: Order Comment: 303.2 Result Comment: Afri can Tu[place]uan GFR Calc Performed By: #### L 501.9520, L500.4050, L501.9985, L500.4100, L100.0500 #### [facility] [address] [place], [address] GAP 5 Normal 5-15 [facility] Comment on above: Order Comment: 303.2 Performed By: #### L 501.9520, L500.4050, L501.9985, L500.4100, L100.0500 #### [facility] [address] [place], [address] GFR/1.73 sq M.predicted among non-blacks MDRD (S/P/Bld) [Vol rate/Area] 40 mL/min/{1.73_m2} Low >60 [facility] Comment on above: Order Comment: 303.2 Result Comment: Non- GFR Calc Performed By: #### L 501.9520, L500.4050, L501.9985, L500.4100, L100.0500 #### [facility] [address] [place], [address] Glucose [Mass/Vol] 133 mg/dL High 74-106 [facility] Comment on above: Order Comment: 303.2 Result Comment: Fast ing Glucose result greater than or equal to 126 mg/dL suggests DIABETES MELLITUS per A.D.A. criteria. Performed By: #### L 501.9520, L500.4050, L501.9985, L500.4100, L100.0500 #### [facility] [address] [place], [address] Potassium [Moles/Vol] 3.9 mmol/L Normal 3.5-5.1 [facility] Comment on above: Order Comment: 303.2 Performed By: #### L 501.9520, L500.4050, L501.9985, L500.4100, L100.0500 #### [facility] [address] [place], [address] Sodium [Moles/Vol] 142 mmol/L Normal 136-145 [facility] Comment on above: Order Comment: 303.2 Performed By: #### L 501.9520, L500.4050, L501.9985, L500.4100, L100.0500 #### [facility] [address] [place], [address] Urea nitrogen [Mass/Vol] 35 mg/dL High 7-18 [facility] Comment on above: Order Comment: 303.2 Performed By: #### L 501.9520, L500.4050, L501.9985, L500.4100, L100.0500 #### [facility] [address] [place], [address] Blood urea nitrogen (BUN)/cr eatinine ratioOrdered By: Evi Guevara on 07-13-2024 Urea nitrogen/Creatinine [Mass ratio] 25.5 mg/mg High 10-20 [facility] CBC-Complete Blood Cnt No Di ffon 07-13-2024 Erythrocyte distribution width (RBC) [Ratio] 13.8 % Normal 11.6-14.6 [facility] Comment on above: Order Comment: 303.2 Performed By: #### L 501.9520, L500.4050, L501.9985, L500.4100, L100.0500 #### [facility] [address] [place], [address] Hematocrit (Bld) [Volume fraction] 38.5 % Normal 37-47 [facility] Comment on above: Order Comment: 303.2 Performed By: #### L 501.9520, L500.4050, L501.9985, L500.4100, L100.0500 #### [facility] [address] [place], [address] Hemoglobin (Bld) [Mass/Vol] 12.6 g/dL Normal 12.0-15.0 [facility] Comment on above: Order Comment: 303.2 Performed By: #### L 501.9520, L500.4050, L501.9985, L500.4100, L100.0500 #### [facility] [address] [place], [address] MCH (RBC) [Entitic mass] 31.1 pg Normal 27.0-32.0 [facility] Comment on above: Order Comment: 303.2 Performed By: #### L 501.9520, L500.4050, L501.9985, L500.4100, L100.0500 #### [facility] [address] [place], [address] MCHC (RBC) [Mass/Vol] 32.7 g/dL Normal 32-36 [facility] Comment on above: Order Comment: 303.2 Performed By: #### L 501.9520, L500.4050, L501.9985, L500.4100, L100.0500 #### [facility] [address] [place], [address] MCV (RBC) [Entitic vol] 95.1 fL Normal 81-99 [facility] Comment on above: Order Comment: 303.2 Performed By: #### L 501.9520, L500.4050, L501.9985, L500.4100, L100.0500 #### [facility] [address] [place], [address] Platelet mean volume (Bld) [Entitic vol] 11.1 fL Normal 6.2-12.0 [facility] Comment on above: Order Comment: 303.2 Performed By: #### L 501.9520, L500.4050, L501.9985, L500.4100, L100.0500 #### [facility] [address] [place], [address] Platelets (Bld) [#/Vol] 220 10*3/uL Normal 150-450 [facility] Comment on above: Order Comment: 303.2 Performed By: #### L 501.9520, L500.4050, L501.9985, L500.4100, L100.0500 #### [facility] [address] [place], [address] RBC (Bld) [#/Vol] 4.05 10*6/uL Low 4.2-5.4 [facility] Comment on above: Order Comment: 303.2 Performed By: #### L 501.9520, L500.4050, L501.9985, L500.4100, L100.0500 #### [facility] [address] [place], [address] RDW SD 48.0 fl High 35.1-43.9 [facility] Comment on above: Order Comment: 303.2 Performed By: #### L 501.9520, L500.4050, L501.9985, L500.4100, L100.0500 #### [facility] [address] [place], [address] WBC (Bld) [#/Vol] 6.8 10*3/uL Normal 4.4-11.0 [facility] Comment on above: Order Comment: 303.2 Performed By: #### L 501.9520, L500.4050, L501.9985, L500.4100, L100.0500 #### [facility] [address] [place], [address] Carbon dioxide measurementOr dered By: Evi Guevara on 07-13-2024 CO2 [Moles/Vol] 27.0 mmol/L 21.0-32.0 [facility] Chloride measurementOrdered By: Evi Guevara on 07-13-2024 Chloride [Moles/Vol] 109 mmol/L High 98-107 [facility] Erythrocyte distribution wid th ratioOrdered By: Evi Guevara on 07-13-2024 Erythrocyte distribution width (RBC) [Ratio] 13.8 % 11.6-14.6 [facility] Erythrocyte distribution wid th standard deviationOrdered By: Evi Guevara on 07-13-2024 Erythrocyte distribution width (RBC) [Entitic vol] 48.0 fL High 35.1-43.9 [facility] Estimated glomerular filtrat ion rate (GFR) AmericanOrdered By: Evi Guevara on 07-13-2024 Estimated GFR (MDRD) Amer 48 mL/min Low >60 [facility] Comment on above: GFR Calc Glomerular filtration rate ( GFR) estimationOrdered By: Evi Guevara on 07-13-2024 Estimated GFR (MDRD) Non-Af Amer 40 mL/min Low >60 [facility] Comment on above: Non- GFR Calc Glucose measurementOrdered B y: Evi Guevara on 07-13-2024 Glucose [Mass/Vol] 133 mg/dL High 74-106 [facility] Comment on above: Fasting Glucose resu lt greater than or equal to 126 mg/dL suggests DIABETES MELLITUS per A.D.A. criteria. Hematocrit Auto (Bld) [Volum e fraction]Ordered By: Evi Guevara on 07-13-2024 Hematocrit (Bld) [Volume fraction] 38.5 % 37-47 [facility] Hemoglobin measurementOrdere d By: Evi Guevara on 07-13-2024 Hemoglobin (Bld) [Mass/Vol] 12.6 g/dL 12.0-15.0 [facility] MCV (mean corpuscular volume ) determinationOrdered By: Evi Guevara on 07-13-2024 MCV (RBC) [Entitic vol] 95.1 fL 81-99 [facility] Mean corpuscular hemoglobin (MCH) determinationOrdered By: Evi Guevara on 07-13-2024 MCH (RBC) [Entitic mass] 31.1 pg 27.0-32.0 [facility] Mean corpuscular hemoglobin concentration (MCHC) determinationOrdered By: Evi Guevara on 07-13-2024 MCHC (RBC) [Mass/Vol] 32.7 g/dL 32-36 [facility] Mean platelet volume determi nationOrdered By: Evi Guevara on 07-13-2024 Platelet mean volume (Bld) [Entitic vol] 11.1 fL 6.2-12.0 [facility] Platelet countOrdered By: Ari Licea on 07-13-2024 Platelets (Bld) [#/Vol] 220 10*3/uL 150-450 [facility] Potassium measurementOrdered By: Evi Guevara on 07-13-2024 Potassium [Moles/Vol] 3.9 mmol/L 3.5-5.1 [facility] RBC Auto (Bld) [#/Vol]Ordere d By: Evi Guevara on 07-13-2024 RBC (Bld) [#/Vol] 4.05 10*6/uL Low 4.2-5.4 [facility] Serum anion gap measurementO rdered By: Evi Guevara on 07-13-2024 Anion gap [Moles/Vol] 5 mmol/L 5-15 [facility] Serum or plasma calcium jeffrey urement (mass/volume)Ordered By: Evi Guevara on 07-13-2024 Calcium [Mass/Vol] 8.9 mg/dL 8.5-10.1 [facility] Serum or plasma creatinine m easurement (mass/volume)Ordered By: Evi Guevara on 07-13-2024 Creatinine [Mass/Vol] 1.37 mg/dL High 0.55-1.02 [facility] Comment on above: The validity of the calculated GFR & GFRAA in patients over 70 years has not been determined. Clinical correlation is essential. Serum or plasma urea nitroge n measurement (mass/volume)Ordered By: Evi Guevara on 07-13-2024 Urea nitrogen [Mass/Vol] 35 mg/dL High 7-18 [facility] Sodium levelOrdered By: Christian Guevara on 07-13-2024 Sodium [Moles/Vol] 142 mmol/L 136-145 [facility] White blood cell (WBC) count Ordered By: Evi Guevara on 07-13-2024 WBC (Bld) [#/Vol] 6.8 10*3/uL 4.4-11.0 [facility] Basic Metabolic Profile (BMP )on 06-12-2024 BUN/CRE 35.0 RATIO High 10-20 [facility] Comment on above: Order Comment: 303.2 Performed By: #### L 501.9520, L500.4050, L501.9985, L500.4100, L100.0500 #### [facility] [address] [place], [address] CA,Total 9.0 mg/dL Normal 8.5-10.1 [facility] Comment on above: Order Comment: 303.2 Performed By: #### L 501.9520, L500.4050, L501.9985, L500.4100, L100.0500 #### [facility] [address] [place], [address] Chloride [Moles/Vol] 108 mmol/L High 98-107 [facility] Comment on above: Order Comment: 303.2 Performed By: #### L 501.9520, L500.4050, L501.9985, L500.4100, L100.0500 #### [facility] [address] [place], [address] CO2 [Moles/Vol] 28.0 mmol/L Normal 21.0-32.0 [facility] Comment on above: Order Comment: 303.2 Performed By: #### L 501.9520, L500.4050, L501.9985, L500.4100, L100.0500 #### [facility] [address] [place], [address] Creatinine [Mass/Vol] 1.40 mg/dL High 0.55-1.02 [facility] Comment on above: Order Comment: 303.2 Result Comment: The validity of the calculated GFR GFRAA in patients over 70 years has not been determined. Clinical correlation is essential. Performed By: #### L 501.9520, L500.4050, L501.9985, L500.4100, L100.0500 #### [facility] [address] [place], [address] EST GFR - AA 47 mL/min Low >60 [facility] Comment on above: Order Comment: 303.2 Result Comment: Afri can [place] GFR Calc Performed By: #### L 501.9520, L500.4050, L501.9985, L500.4100, L100.0500 #### [facility] [address] [place], [address] GAP 4 Low 5-15 [facility] Comment on above: Order Comment: 303.2 Performed By: #### L 501.9520, L500.4050, L501.9985, L500.4100, L100.0500 #### [facility] [address] [place], [address] GFR/1.73 sq M.predicted among non-blacks MDRD (S/P/Bld) [Vol rate/Area] 39 mL/min/{1.73_m2} Low >60 [facility] Comment on above: Order Comment: 303.2 Result Comment: Non- GFR Calc Performed By: #### L 501.9520, L500.4050, L501.9985, L500.4100, L100.0500 #### [facility] [address] [place], [address] Glucose [Mass/Vol] 136 mg/dL High 74-106 [facility] Comment on above: Order Comment: 303.2 Result Comment: Fast ing Glucose result greater than or equal to 126 mg/dL suggests DIABETES MELLITUS per A.D.A. criteria. Performed By: #### L 501.9520, L500.4050, L501.9985, L500.4100, L100.0500 #### [facility] [address] [place], [address] Potassium [Moles/Vol] 3.8 mmol/L Normal 3.5-5.1 [facility] Comment on above: Order Comment: 303.2 Performed By: #### L 501.9520, L500.4050, L501.9985, L500.4100, L100.0500 #### [facility] [address] [place], [address] Sodium [Moles/Vol] 140 mmol/L Normal 136-145 [facility] Comment on above: Order Comment: 303.2 Performed By: #### L 501.9520, L500.4050, L501.9985, L500.4100, L100.0500 #### [facility] [address] [place], [address] Urea nitrogen [Mass/Vol] 49 mg/dL High 7-18 [facility] Comment on above: Order Comment: 303.2 Performed By: #### L 501.9520, L500.4050, L501.9985, L500.4100, L100.0500 #### [facility] [address] [place], [address] Blood urea nitrogen (BUN)/cr eatinine ratioOrdered By: Evi Guevara on 06-12-2024 Urea nitrogen/Creatinine [Mass ratio] 35.0 mg/mg High 10-20 [facility] CBC-Complete Blood Cnt No Di ffon 06-12-2024 Erythrocyte distribution width (RBC) [Ratio] 13.2 % Normal 11.6-14.6 [facility] Comment on above: Order Comment: 303.2 Performed By: #### L 501.9520, L500.4050, L501.9985, L500.4100, L100.0500 #### [facility] [address] [place], [address] Hematocrit (Bld) [Volume fraction] 40.0 % Normal 37-47 [facility] Comment on above: Order Comment: 303.2 Performed By: #### L 501.9520, L500.4050, L501.9985, L500.4100, L100.0500 #### [facility] [address] [place], [address] Hemoglobin (Bld) [Mass/Vol] 13.2 g/dL Normal 12.0-15.0 [facility] Comment on above: Order Comment: 303.2 Performed By: #### L 501.9520, L500.4050, L501.9985, L500.4100, L100.0500 #### [facility] [address] [place], [address] MCH (RBC) [Entitic mass] 31.8 pg Normal 27.0-32.0 [facility] Comment on above: Order Comment: 303.2 Performed By: #### L 501.9520, L500.4050, L501.9985, L500.4100, L100.0500 #### [facility] [address] [place], [address] MCHC (RBC) [Mass/Vol] 33.0 g/dL Normal 32-36 [facility] Comment on above: Order Comment: 303.2 Performed By: #### L 501.9520, L500.4050, L501.9985, L500.4100, L100.0500 #### [facility] [address] [place], [address] MCV (RBC) [Entitic vol] 96.4 fL Normal 81-99 [facility] Comment on above: Order Comment: 303.2 Performed By: #### L 501.9520, L500.4050, L501.9985, L500.4100, L100.0500 #### [facility] [address] [place], [address] Platelet mean volume (Bld) [Entitic vol] 11.7 fL Normal 6.2-12.0 [facility] Comment on above: Order Comment: 303.2 Performed By: #### L 501.9520, L500.4050, L501.9985, L500.4100, L100.0500 #### [facility] [address] [place], [address] Platelets (Bld) [#/Vol] 225 10*3/uL Normal 150-450 [facility] Comment on above: Order Comment: 303.2 Performed By: #### L 501.9520, L500.4050, L501.9985, L500.4100, L100.0500 #### [facility] [address] [place], [address] RBC (Bld) [#/Vol] 4.15 10*6/uL Low 4.2-5.4 [facility] Comment on above: Order Comment: 303.2 Performed By: #### L 501.9520, L500.4050, L501.9985, L500.4100, L100.0500 #### [facility] [address] [place], [address] RDW SD 46.8 fl High 35.1-43.9 [facility] Comment on above: Order Comment: 303.2 Performed By: #### L 501.9520, L500.4050, L501.9985, L500.4100, L100.0500 #### [facility] [address] [place], [address] WBC (Bld) [#/Vol] 8.1 10*3/uL Normal 4.4-11.0 [facility] Comment on above: Order Comment: 303.2 Performed By: #### L 501.9520, L500.4050, L501.9985, L500.4100, L100.0500 #### [facility] [address] [place], [address] Carbon dioxide measurementOr dered By: Evi Guevara on 06-12-2024 CO2 [Moles/Vol] 28.0 mmol/L 21.0-32.0 [facility] Chloride measurementOrdered By: Evi Guevara on 06-12-2024 Chloride [Moles/Vol] 108 mmol/L High 98-107 [facility] Erythrocyte distribution wid th ratioOrdered By: Evi Guevara on 06-12-2024 Erythrocyte distribution width (RBC) [Ratio] 13.2 % 11.6-14.6 [facility] Erythrocyte distribution wid th standard deviationOrdered By: Evi Guevara on 06-12-2024 Erythrocyte distribution width (RBC) [Entitic vol] 46.8 fL High 35.1-43.9 [facility] Estimated glomerular filtrat ion rate (GFR) AmericanOrdered By: Evi Guevara on 06-12-2024 Estimated GFR (MDRD) Amer 47 mL/min Low >60 [facility] Comment on above: GFR Calc Glomerular filtration rate ( GFR) estimationOrdered By: Evi Guevara on 06-12-2024 Estimated GFR (MDRD) Non-Af Amer 39 mL/min Low >60 [facility] Comment on above: Non- GFR Calc Glucose measurementOrdered B y: Evi Guevara on 06-12-2024 Glucose [Mass/Vol] 136 mg/dL High 74-106 [facility] Comment on above: Fasting Glucose resu lt greater than or equal to 126 mg/dL suggests DIABETES MELLITUS per A.D.A. criteria. Hematocrit Auto (Bld) [Volum e fraction]Ordered By: Evi Guevara on 06-12-2024 Hematocrit (Bld) [Volume fraction] 40.0 % 37-47 [facility] Hemoglobin measurementOrdere d By: Evi Guevaar on 06-12-2024 Hemoglobin (Bld) [Mass/Vol] 13.2 g/dL 12.0-15.0 [facility] MCV (mean corpuscular volume ) determinationOrdered By: Evi Guevara on 06-12-2024 MCV (RBC) [Entitic vol] 96.4 fL 81-99 [facility] Mean corpuscular hemoglobin (MCH) determinationOrdered By: Evi Guevara on 06-12-2024 MCH (RBC) [Entitic mass] 31.8 pg 27.0-32.0 [facility] Mean corpuscular hemoglobin concentration (MCHC) determinationOrdered By: Evi Guevara on 06-12-2024 MCHC (RBC) [Mass/Vol] 33.0 g/dL 32-36 [facility] Mean platelet volume determi nationOrdered By: Evi Guevara on 06-12-2024 Platelet mean volume (Bld) [Entitic vol] 11.7 fL 6.2-12.0 [facility] Platelet countOrdered By: Ari Licea on 06-12-2024 Platelets (Bld) [#/Vol] 225 10*3/uL 150-450 [facility] Potassium measurementOrdered By: Evi Guevara on 06-12-2024 Potassium [Moles/Vol] 3.8 mmol/L 3.5-5.1 [facility] RBC Auto (Bld) [#/Vol]Ordere d By: Evi Guevara on 06-12-2024 RBC (Bld) [#/Vol] 4.15 10*6/uL Low 4.2-5.4 [facility] Serum anion gap measurementO rdered By: Evi Guevara on 06-12-2024 Anion gap [Moles/Vol] 4 mmol/L Low 5-15 [facility] Serum or plasma calcium jeffrey urement (mass/volume)Ordered By: Evi Guevara on 06-12-2024 Calcium [Mass/Vol] 9.0 mg/dL 8.5-10.1 [facility] Serum or plasma creatinine m easurement (mass/volume)Ordered By: Evi Guevara on 06-12-2024 Creatinine [Mass/Vol] 1.40 mg/dL High 0.55-1.02 [facility] Comment on above: The validity of the calculated GFR & GFRAA in patients over 70 years has not been determined. Clinical correlation is essential. Serum or plasma urea nitroge n measurement (mass/volume)Ordered By: Evi Guevara on 06-12-2024 Urea nitrogen [Mass/Vol] 49 mg/dL High 7-18 [facility] Sodium levelOrdered By: Christian Guevara on 06-12-2024 Sodium [Moles/Vol] 140 mmol/L 136-145 [facility] White blood cell (WBC) count Ordered By: Evi Guevara on 06-12-2024 WBC (Bld) [#/Vol] 8.1 10*3/uL 4.4-11.0 [facility] CARECOORDon 12-17-2023 CARECOBREMERTON Next Site of Care Admission Date: 12/16/2023 01:05 PM Patient Name: CARLINE VILLARREAL Location: [address] [facility] [id number] A Date of : 1945 ---- Placement Information ---- Referral Type:Care Home/SNF - Return Referral ID:[id number] Provider Name:[facility] Address 1:[address] Address 2: City:[place] Selection Factors:Returning to Facility State:[place] [facility] [employer] CARECOitsDapper Discharge med list transmitted to [facility] via [employer] per TCC request. [facility] [employer] CAREKingspoke Spoke with patient about return to [facility] and she is in agreement with this. Spoke with Merle about report and they are able to accept patient back. She is detention there under her medicaid. Did update social research assistant and primary care nurse. Tasked MANAGER ASSET to send dc packet to [facility]. . Normal [facility] CARECOORD [facility]. [facility] messaged the facility with dc time. Ambulance PCS form completed in [facility]. Spoke with patients ethan Pillai to discuss transportation arrangements and the slate picker time. Nurse provided with report number. [facility] CBC (HEMOGRAM)on 12-17-2023 Erythrocyte distribution width (RBC) [Ratio] 13.5 % Normal 11.5-15.0 [facility] Comment on above: Performed By: #### L [id number] ####Dyed Yarn Operator: FREEMAN DOUGHERTY ([id number])[facility] ([facility])[address] [place] [address] Hematocrit (Bld) [Volume fraction] 35.7 % Normal 35.0-47.0 [facility] Comment on above: Performed By: #### L [id number] ####Dyed Yarn Operator: FREEMAN DOUGHERTY ([id number])[facility] ([facility])[address] [place] [address] Hemoglobin (Bld) [Mass/Vol] 12.0 g/dL Normal 11.7-16.0 [facility] Comment on above: Performed By: #### L [id number] ####Dyed Yarn Operator: FREEMAN [id number])[facility] ([facility])[address] [place] [address] MCH (RBC) [Entitic mass] 32.2 pg Normal 26.0-34.0 [facility] Comment on above: Performed By: #### L [id number] ####Dyed Yarn Operator: FREEMAN [id number])[facility] [place] ([facility])[address] MCHC 33.6 % Normal 30.5-36.0 [facility] Comment on above: Performed By: #### L [id number] ####Dyed Yarn Operator: FREEMAN DOUGHERTY ([id number])[facility] [place] ([facility])[address] MCV (RBC) [Entitic vol] 95.7 fL Normal 77.0-99.0 [facility] Comment on above: Performed By: #### L [id number] ####Dyed Yarn Operator: FREEMAN DOUGHERTY ([id number])[facility] [place] ([facility])[address] Platelet mean volume (Bld) [Entitic vol] 10.5 fL Normal 9.0-12.7 [facility] Comment on above: Performed By: #### L [id number] ####Dyed Yarn Operator: FREEMAN DOUGHERTY ([id number])[facility] [place] ([facility])[address] Platelets (Bld) [#/Vol] 211 10*3/uL Normal 140-440 [facility] Comment on above: Performed By: #### L [id number] ####Dyed Yarn Operator: FREEMAN DOUGHERTY ([id number])[facility] [place] ([facility])[address] RBC (Bld) [#/Vol] 3.73 10*6/uL Low 3.80-5.20 [facility] Comment on above: Performed By: #### L [id number] ####Dyed Yarn Operator: FREEMAN DOUGHERTY ([id number])[facility] [place] ([facility])[address] [place] [address] [place] WBC (Bld) [#/Vol] 5.4 10*3/uL Normal 3.6-10.7 [facility] Comment on above: Performed By: #### L [id number] ####Dyed Yarn Operator: FREEMAN [id number])[facility] ([facility])[address] CBC panel Auto (Bld)on 12-16 Erythrocyte distribution width (RBC) [Ratio] 13.5 % 11.5 - 15.0 % [facility] Hematocrit (Bld) [Volume fraction] 35.7 % 35.0 - 47.0 % [facility] Hemoglobin (Bld) [Mass/Vol] 12.0 g/dL 11.7 - 16.0 g/dL [facility] Interpretation and review of laboratory results Abnormal [facility] MCH (RBC) [Entitic mass] 32.2 pg 26.0 - 34.[address] [facility] MCHC (RBC) [Mass/Vol] 33.6 % 30.5 - 36.0 % [facility] MCV (RBC) [Entitic vol] 95.7 fL 77.0 - 99.[address] [facility] Platelet mean volume (Bld) [Entitic vol] 10.5 fL 9.0 - 12.[address] [facility] Platelets (Bld) [#/Vol] 211 10*3/uL 140 - 440 10*3/uL [facility] RBC (Bld) [#/Vol] 3.73 10*6/uL Low 3.80 - 5.2 0 10*6/uL [facility] WBC (Bld) [#/Vol] 5.4 10*3/uL 3.6 - 10.7 10*3/uL [facility] COMPREHENSIVE METABOLIC PANE Mandeep 12-17-2023 Albumin [Mass/Vol] 3.2 g/dL Low 3.5-5.0 [facility] Comment on above: Performed By: #### L [id number], LAB17 ####Dyed Yarn Operator: FREEMAN DOUGHERTY ([phone])[facility] (SB[facility])[address] ALP [Catalytic activity/Vol] 133 U/L High 38-126 [facility] Comment on above: Performed By: #### L AB18, LAB17 ####Dyed Yarn Operator: FREEMAN DOUGHERTY ([phone])[facility] VINODJUANA (SBHLAB)[address] [place] [address] [place] ALT [Catalytic activity/Vol] 14 U/L Normal 0-34 [facility] Comment on above: Performed By: #### L [id number], LAB17 ####Dyed Yarn Operator: FREEMAN DOUGHERTY ([phone])[facility] [place] (SBHLAB)[address] Anion gap [Moles/Vol] 10 mmol/L Normal 3-13 [facility] Comment on above: Performed By: #### L AB18, LAB17 ####Dyed Yarn Operator: FREEMAN DOUGHERTY ([phone])[facility] (SBHLAB)[address] AST [Catalytic activity/Vol] 21 U/L Normal 15-46 [facility] Comment on above: Performed By: #### L [id number], LAB17 ####Dyed Yarn Operator: FREEMAN DOUGHERTY ([phone])[facility] (SBHLAB)[address] Bilirubin [Mass/Vol] 0.5 mg/dL Normal 0.2-1.3 [facility] Comment on above: Performed By: #### L AB18, LAB17 ####Dyed Yarn Operator: FREEMAN DOUGHERTY ([phone])[facility] (SBHLAB)[address] Calcium [Mass/Vol] 8.9 mg/dL Normal 8.4-10.4 [facility] Comment on above: Performed By: #### L AB18, LAB17 ####Dyed Yarn Operator: FREEMAN DOUGHERTY ([phone])[facility] [place] (SB[facility])[address] [place] [address] [place] Chloride [Moles/Vol] 107 mmol/L Normal 98-107 [facility] Comment on above: Performed By: #### L AB18, LAB17 ####Dyed Yarn Operator: FREEMAN DOUGHERTY ([phone])[facility] (SBHLAB)[address] [place] [address] [place] CO2 [Moles/Vol] 24 mmol/L Normal 22-30 [facility] Comment on above: Performed By: #### L AB18, LAB17 ####Dyed Yarn Operator: FREEMAN DOUGHERTY ([phone])[facility] [place] (SBHLAB)[address] Creatinine [Mass/Vol] 1.20 mg/dL High 0.52-1.04 [facility] Comment on above: Performed By: #### L AB18, LAB17 ####Dyed Yarn Operator: FREEMAN DOUGHERTY ([phone])[facility] [place] ([facility])[address] [place] [address] [place] GLOMERULAR FILTRATION RATE ML/MIN/1.73 SQ M.PREDICTED 46.7 mL/min/1.73m*2 Low >60.0 [facility] Comment on above: Result Comment: Calc ulation based on the Chronic Kidney Disease Epidemiology Collaboration (CKD-EPI) equation refit without adjustment for race Performed By: #### L AB18, LAB17 ####Dyed Yarn Operator: FREEMAN DOUGHERTY ([phone])[facility] [place] (SB[facility])[address] [place] [address] [place] Glucose [Mass/Vol] 117 mg/dL High 70-100 [facility] Comment on above: Performed By: #### L AB18, LAB17 ####Dyed Yarn Operator: FREEMAN DOUGHERTY ([phone])[facility] [place] ([facility])[address] [place] [address] [place] Potassium [Moles/Vol] 3.7 mmol/L Normal 3.5-5.1 [facility] Comment on above: Performed By: #### L AB18, LAB17 ####Dyed Yarn Operator: FREEMAN DOUGHERTY ([phone])[facility] [place] ([facility])[address] [place] [address] [place] Protein [Mass/Vol] 6.0 g/dL Low 6.3-8.2 [facility] Comment on above: Performed By: #### L AB18, LAB17 ####Dyed Yarn Operator: FREEMAN DOUGHERTY ([phone])[facility] SYSTEM[facility] A[facility]UJON (SBHLAB)[address] Sodium [Moles/Vol] 141 mmol/L Normal 135-145 [facility] Comment on above: Performed By: #### L AB18, LAB17 ####Dyed Yarn Operator: FREEMAN DOUGHERTY ([phone])[facility] VINODMIMBRES MEMORIAL HOSPITALN (SBHLAB)[address] Urea nitrogen [Mass/Vol] 26 mg/dL High 7-17 [facility] Comment on above: Performed By: #### L AB18, LAB17 ####Dyed Yarn Operator: FREEMAN DOUGHERTY ([phone])[facility] (SBHLAB)[address] Comprehensive metabolic 1998 panelon 12-17-2023 Albumin [Mass/Vol] 3.2 g/dL Low 3.5 - 5.0 g/dL [facility] ALP [Catalytic activity/Vol] 133 U/L High 38 - 126 U/L [facility] ALT [Catalytic activity/Vol] 14 U/L 0 - 34 U/L [facility] Anion gap [Moles/Vol] 10 mmol/L 3 - 13 mmol/L [facility] AST [Catalytic activity/Vol] 21 U/L 15 - 46 U/L [facility] Bilirubin [Mass/Vol] 0.5 mg/dL 0.2 - 1 .3 mg/dL [facility] Calcium [Mass/Vol] 8.9 mg/dL 8.4 - 10. 4 mg/dL [facility] Chloride [Moles/Vol] 107 mmol/L 98 - 10 7 mmol/L [facility] CO2 [Moles/Vol] 24 mmol/L 22 - 30 mmol/L [facility] Creatinine [Mass/Vol] 1.20 mg/dL High 0.52 - 1.04 mg/dL [facility] GFR/1.73 sq M.predicted MDRD (S/P/Bld) [Vol rate/Area] 46.7 mL/min/{1.73_m2} Low - PINF [facility] Comment on above: Calculation based on the Chronic Kidney Disease Epidemiology Collaboration (CKD-EPI) equation refit without adjustment for race Glucose [Mass/Vol] 117 mg/dL High 70 - 100 mg/dL [facility] Potassium [Moles/Vol] 3.7 mmol/L 3.5 - 5.1 mmol/L [facility] Protein [Mass/Vol] 6.0 g/dL Low 6.3 - 8.2 g/dL [facility] Sodium [Moles/Vol] 141 mmol/L 135 - 145 mmol/L [facility] Urea nitrogen [Mass/Vol] 26 mg/dL High 7 - 17 mg/dL [facility] HEMOGLOBIN A1Con 12-17-2023 Glucose [Mass/Vol] 97 mg/dL Normal [facility] Comment on above: Performed By: #### L [id number] ####Dyed Yarn Operator: FREEMAN DOUGHERTY ([phone])[facility] SYSTEM[facility] ([facility])[address] [place] [address] HbA1c (Bld) [Mass fraction] 5.0 % Normal <5.7 [facility] Comment on above: Result Comment: Norm al less than 5.7% Prediabetes 5.7% to 6.4% Diabetes 6.5% or higher --HgbA1C levels may not be accurate in patients who have renal disease, received recent blood transfusions, are anemic, or who have dyshemoglobinemia. Performed By: #### L AB90 ####Dyed Yarn Operator: FREEMAN DOUGHERTY ([phone])[facility] SYSTEM[facility] [place] ([facility])[address] [place] [address] LIPID PANELon 12-17-2023 Cholesterol [Mass/Vol] 114 mg/dL Normal <200 [facility] Comment on above: Performed By: #### L AB18, LAB17 ####Dyed Yarn Operator: FREEMAN DOUGHERTY ([phone])[facility] SYSTEM[facility] (SBHLAB)[address] Cholesterol in HDL [Mass/Vol] 38 mg/dL Low 40-60 [facility] Comment on above: Performed By: #### L AB18, LAB17 ####Dyed Yarn Operator: FREEMAN DOUGHERTY ([phone])[facility] (SBHLAB)[address] [place] [address] Cholesterol.total/Yesi sterol in HDL [Mass ratio] 3 {ratio} Normal [facility] Comment on above: Result Comment: Ref Range: < 3 Low Risk for CHD 3-6 Mod Risk for CHD > 6 High Risk for CHD Performed By: #### L AB18, LAB17 ####Dyed Yarn Operator: FREEMAN DOUGHERTY ([phone])[facility] SYSTEM[facility] (SBHLAB)[address] LOW DENSITY LIPOPROTEIN 58 mg/dL Normal 0-<100 [facility] Comment on above: Performed By: #### L AB18, LAB17 ####Dyed Yarn Operator: FREEMAN DOUGHERTY ([phone])[facility] SYSTEM[facility] (SBHLAB)[address] Triglyceride [Mass/Vol] 92 mg/dL Normal <150 [facility] Comment on above: Performed By: #### L AB18, LAB17 ####Dyed Yarn Operator: FREEMAN DOUGHERTY ([phone])[facility] VINODMIMBRES MEMORIAL HOSPITALJoe (SBHLAB)[address] Laboratory - Chemistry and C hemistry - challengeon 12-17-2023 Average glucose Estimated from glycated hemoglobin (Bld) [Mass/Vol] 97 mg/dL [facility] Laboratory - Hematology and Cell countson 12-17-2023 HbA1c (Bld) [Mass fraction] 5.0 % NINF - 5.7 % [facility] Comment on above: Normal less than 5.7 % Prediabetes 5.7% to 6.4% Diabetes 6.5% or higher --HgbA1C levels may not be accurate in patients who have renal disease, received recent blood transfusions, are anemic, or who have dyshemoglobinemia. Lipid 1996 panelon 4 Cholesterol [Mass/Vol] 114 mg/dL NINF - 200 mg/dL [facility] Cholesterol in HDL [Mass/Vol] 38 mg/dL Low 40 - 60 mg/dL [facility] Cholesterol in LDL [Mass/Vol] 58 mg/dL 0 - <[address] [facility] Cholesterol.total/Yesi sterol in HDL [Mass ratio] 3 {ratio} [facility] Comment on above: Ref Range: < 3 Low Risk for CHD 3-6 Mod Risk for CHD > 6 High Risk for CHD Triglyceride [Mass/Vol] 92 mg/dL NINF - 150 mg/dL [facility] MR Brain WO contraston 12-16 1. No acute infarct. 2. 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 3. Cerebral volume loss. 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 Report Dictated on Electronically Signed By: Cosme Ward MD Electronically Signed Date/Time: 12/17/2023 9:59 AM EDT [facility] [employer] Patient Name: CARLINE VILLARREAL : 1945 Exam Date/Time: 12/17/2023 09:49 Procedure: MR BRAIN [...] Clear. Mastoid air cells: Normal. Orbits: Normal. [facility] [employer] Cosme Ward MD - 12/17/2023 Patient Name: CARLINE VILLARREAL : 1945 Exam Date/Time: 12/17/2023 09:49 Procedure: MR BRAIN [...] Date/Time: 12/17/2023 9:59 AM EDT [facility] Radiology Study observation (narrative) [facility] MR Brain WO contrastOrdered By: Cosme Ward on 12-17-[address] [facility] Work Phone: No Panel Informationon 12-[address] [facility] Interpretation and review of laboratory results Abnormal [facility] Nursing Noteon 12-17-2023 Nursing Note Report called to [facility] Transport setup for 1400. Normal [facility] Nursing Note Pt discharged back t o [facility]. PIV removed from RFA, catheter intact, DSD applied. Tele monitor removed, cleaned per protocol & returned to drawer. Normal [facility] Progress Noteon 12-17-2023 Progress Note Speech-Language Pathology Patient passed the Nursing Swallowing Screening and is on a Regular diet, Cardiac: Low fat, Low cholesterol. High Fiber, LEXI with Thin liquids. Completed speech orders as per stroke protocol. Normal [facility] US Heart TransthoracicOrdere d By: Sahara Gross on 12-17-2023 Ao Root Index 1.78 cm/m2 [facility] Work Phone: [phone] Aortic Arch 3.4 cm [facility] Work Phone: 95 Aortic Root 3.6 cm [facility] Work Phone: [phone] Aortic Sinus Valsalva 3.6 cm [facility] Work Phone: [phone] Aortic Sinus Valsalva Index 1.78 cm/m2 [facility] Work Phone: [phone] AR Max Velocity PISA 5.4 m/s [facility] Work Phone: [phone] AR PHT 349.4 ms [facility] Work Phone: [phone] Ascending Aorta 3.6 cm [facility] Work Phone: 95 Ascending Aorta Index 1.78 cm/m2 [facility] Work Phone: [phone] AV Area by Peak Velocity 2.3 cm2 [facility] Work Phone: [phone] AV Area by VTI 2.3 cm2 [facility] Work Phone: [phone] AV Mean Gradient 8 mmHg [facility] Work Phone: [phone] AV Mean Velocity 1.3 m/s [facility] Work Phone: 95 AV Peak Gradient 14 mmHg [facility] Work Phone: [phone] AV Peak Velocity 1.9 m/s [facility] Work Phone: [phone] AV Velocity Ratio 0.68 [facility] Work Phone: [phone] AV VTI 34.3 cm [facility] Work Phone: [phone] NEERAJ/BSA Peak Velocity 1.1 cm2/m2 [facility] Phone: NEERAJ/BSA VTI 1.1 cm2/m2 [facility] [employer] Work Phone: [phone] E/E' Lateral 7.67 [facility]anyday Phone: [phone] E/E' Ratio (Averaged) 8.15 [facility]anyday Phone: E/E' Septal 8.63 [facility] [employer] Phone: [phone] EF BP 65 % 55 - 100 % [facility] Work Phone: [phone] Fractional Shortening 2D 39 % 28 - 44 % [facility] Phone: Global Longitudinal Strain -15.8 % [facility]day Phone: Interpretation and review of laboratory results Abnormal [facility] Phone: [phone] IVC Diameter 1.5 cm [facility] Phone: IVSd 1.2 cm Abnormal 0.6 - 0.9 cm [facility] Phone: LA Diameter 5.4 cm [facility] [employer] Phone: LA Size Index 2.67 cm/m2 [facility] Work Phone: LA Volume 2C 118 mL Abnormal 22 - 52 mL [facility] Phone: LA Volume 4C 90 mL Abnormal 22 - 52 mL [facility] Phone: LA Volume A/L 110 mL [facility] [employer] Work Phone: LA Volume BP 104 mL Abnormal 22 - 52 mL [facility] Phone: LA Volume Index 2C 58 mL/m2 Abnormal 16 - 34 mL/m2 [facility] Phone: LA Volume Index 4C 45 mL/m2 Abnormal 16 - 34 mL/m2 [facility] Phone: LA Volume Index A/L 54 mL/m2 16 - 34 mL/m2 [facility] Phone: LA Volume Index BP 51 ml/m2 Abnormal 16 - 34 ml/m2 [facility] Work Phone: LA/AO Root Ratio 1.50 [facility] Work Phone: LV E' Lateral Velocity 9 cm/s [facility] Work Phone: [phone] LV E' Septal Velocity 8 cm/s [facility] Work Phone: LV EDV A2C 77 mL [facility] Work Phone: LV EDV A4C 79 mL [facility] Work Phone: [phone] LV EDV BP 81 mL 56 - 104 mL [facility] Work Phone: [phone] LV EDV Index A2C 38 mL/m2 [facility] Work Phone: [phone] LV EDV Index A4C 39 mL/m2 [facility] Work Phone: [phone] LV EDV Index BP 40 mL/m2 [facility] Work Phone: LV Ejection Fraction A2C 70 % [facility] Work Phone: [phone] LV Ejection Fraction A4C 58 % [facility] Work Phone: [phone] LV ESV A2C 23 mL [facility] Work Phone: LV ESV A4C 34 mL [facility] Work Phone: LV ESV BP 28 mL 19 - 49 mL [facility] Work Phone: LV ESV Index A2C 11 mL/m2 [facility] Work Phone: LV ESV Index A4C 17 mL/m2 [facility] Work Phone: LV ESV Index BP 14 mL/m2 [facility] Work Phone: LV Mass 2D 171.7 g Abnormal 67 - 162 g [facility] Work Phone: LV Mass 2D Index 85.0 g/m2 43 - 95 g/m2 [facility] Work Phone: LV RWT Ratio 0.59 [facility] Work Phone: LVIDd 4.1 cm 3.9 - 5.3 cm [facility] Work Phone: LVIDd Index 2.03 cm/m2 [employer] Work Phone: [phone] LVIDs 2.5 cm [facility] [employer] Work Phone: [phone] LVIDs Index 1.24 cm/m2 [employer] Work Phone: [phone] LVOT Area 3.5 cm2 [facility] [employer] Work Phone: [phone] LVOT Cardiac Output 7.1 liter/mi nut e [employer] Work Phone: [phone] LVOT Diameter 2.1 cm [facility] [employer] Work Phone: [phone] LVOT Mean Gradient 3 mmHg [facility] [employer] Work Phone: [phone] LVOT Peak Gradient 6 mmHg [facility] [employer] Work Phone: [phone] LVOT Peak Velocity 1.3 m/s [facility] Work Phone: [phone] LVOT Stroke Volume Index 41.0 mL/m2 [facility] [employer] Work Phone: [phone] LVOT SV 82.7 ml [facility] [employer] Work Phone: [phone] LVOT VTI 23.9 cm [facility] [employer] Work Phone: [phone] LVOT:AV VTI Index 0.70 [facility] [employer] ealth Work Phone: LVPWd 1.2 cm Abnormal 0.6 - 0.9 cm [facility] [employer] Work Phone: [phone] MV A Velocity 0.99 m/s [facility] Work Phone: MV E Velocity 0.69 m/s [facility] Work Phone: [phone] MV E Wave Deceleration Time 177.0 ms [facility] [employer] Work Phone: [phone] MV E/A 0.70 [facility] [employer] Work Phone: RA Area 4C 59.8 mL [facility] [employer] Work Phone: [phone] RV Basal Dimension 3.4 cm [facility] [employer] Work Phone: RV Free Wall Peak S' 22 cm/s [facility] [employer] Work Phone: RV Longitudinal Dimension 4.0 cm [facility] Work Phone: [phone] RV Mid Dimension 2.4 cm [facility] al[facility] Work Phone: [phone] Sinotubular Junction 3.3 cm [facility] Work Phone: [phone] TAPSE 2.0 cm 1.7 cm [facility] Work Phone: [phone] TR Max Velocity 2.93 m/s [facility] Fidelina lth Work Phone: [phone] TR Peak Gradient 34 mmHg [facility] alth Work Phone: [phone] [facility] Work Phone: [phone] Heart Transthoracicon Left Ventricle: Left ventricle [...] [#/Vol] 0.1 10*3/uL 0.0 - 0.2 10*3/uL [employer] Basophils/100 WBC (Bld) 0.8 % 0.0 - 2.0 % [employer] Eosinophils (Bld) [#/Vol] 0.4 10*3/uL 0.0 - 0.5 10*3/uL [employer] Eosinophils/100 WBC (Bld) 5.7 % 0.0 - 6.0 % [employer] Erythrocyte distribution width (RBC) [Ratio] 13.3 % 11.5 - 15.0 % [employer] Hematocrit (Bld) [Volume fraction] 39.1 % 35.0 - 47.0 % [employer] Hemoglobin (Bld) [Mass/Vol] 13.3 g/dL 11.7 - 16.0 g/dL [employer] Immature granulocytes (Bld) [#/Vol] 0.0 10*3/uL NINF - 0.1 10*3/uL [employer] Immature granulocytes/100 WBC (Bld) 0.1 % 0.0 - 2.0 % [employer] Interpretation and review of laboratory results Normal [employer] Lymphocytes (Bld) [#/Vol] 1.3 10*3/uL 1.0 - 4.3 10*3/uL [facility] Lymphocytes/100 WBC (Bld) 17.8 % 15.0 - 45.0 % [facility] MCH (RBC) [Entitic mass] 32.5 pg 26.0 - 34.[address] [facility] MCHC (RBC) [Mass/Vol] 34.0 % 30.5 - 36.0 % [facility] MCV (RBC) [Entitic vol] 95.6 fL 77.0 - 99.[address] [facility] Monocytes (Bld) [#/Vol] 0.5 10*3/uL 0.0 - 0.9 10*3/uL [facility] Monocytes/100 WBC (Bld) 7.1 % 5.0 - 13.0 % [facility] Neutrophils (Bld) [#/Vol] 5.1 10*3/uL 1.8 - 7.5 10*3/uL [facility] Neutrophils/100 WBC (Bld) 68.5 % 38.0 - 82.0 % [facility] Nucleated RBC/100 WBC (Bld) [Ratio] 0.0 % [facility] Platelet mean volume (Bld) [Entitic vol] 10.5 fL 9.0 - 12.[address] [facility] Platelets (Bld) [#/Vol] 259 10*3/uL 140 - 440 10*3/uL [facility] RBC (Bld) [#/Vol] 4.09 10*6/uL 3.80 - 5.2 0 10*6/uL [facility] WBC (Bld) [#/Vol] 7.4 10*3/uL 3.6 - 10.7 10*3/uL [facility] CBC WITH AUTO DIFFERENTIALon 12-16-2023 Basophils (Bld) [#/Vol] 0.1 10*3/uL Normal 0.0-0.2 [facility] Comment on above: Performed By: #### L [id number] ####Dyed Yarn Operator: FREEMAN DOUGHERTY ([phone])[facility] (SBHLAB)[address] [place] [address] Basophils/100 WBC (Bld) 0.8 % Normal 0.0-2.0 [facility] Comment on above: Performed By: #### L [id number] ####Dyed Yarn Operator: FREEMAN MURPHYMICHAEL ([phone])[facility] ([facility])[address] Eosinophils (Bld) [#/Vol] 0.4 10*3/uL Normal 0.0-0.5 [facility] Comment on above: Performed By: #### L [id number] ####Dyed Yarn Operator: FREEMAN DOUGHERTY ([phone])[facility] ([facility])[address] Eosinophils/100 WBC (Bld) 5.7 % Normal 0.0-6.0 [facility] Comment on above: Performed By: #### L [id number] ####Dyed Yarn Operator: FREEMAN MURPHYMICHAEL ([phone])[facility] ([facility])[address] [place] [address] Erythrocyte distribution width (RBC) [Ratio] 13.3 % Normal 11.5-15.0 [facility] Comment on above: Performed By: #### L [id number] ####Dyed Yarn Operator: FREEMAN DOUGHERTY ([phone])[facility] ([facility])[address] [place] [address] Hematocrit (Bld) [Volume fraction] 39.1 % Normal 35.0-47.0 [facility] Comment on above: Performed By: #### L [id number] ####Dyed Yarn Operator: FREEMAN DOUGHERTY ([phone])[facility] ([facility])[address] [place] [address] Hemoglobin (Bld) [Mass/Vol] 13.3 g/dL Normal 11.7-16.0 [facility] Comment on above: Performed By: #### L [id number] ####Dyed Yarn Operator: FREEMAN MURPHYMICHAEL ([phone])[facility] ([facility] [place] [place] [address] IMMATURE GRANS % 0.1 % Normal 0.0-2.0 [facility] Comment on above: Performed By: #### L [id number] ####Dyed Yarn Operator: FREEMAN SUAREZMartinaMICHAEL ([phone])[facility] [place] ([facility])[address] [place] [address] IMMATURE GRANS ABSOLUTE 0.0 10*3/uL Normal <0.1 [facility] Comment on above: Performed By: #### L [id number] ####Dyed Yarn Operator: FREEMAN FARHAT ([phone])[facility] ([facility])[address] Lymphocytes (Bld) [#/Vol] 1.3 10*3/uL Normal 1.0-4.3 [facility] Comment on above: Performed By: #### L [id number] ####Dyed Yarn Operator: FREEMAN FARHAT ([phone])[facility] ([facility])[address] [place] [address] Lymphocytes/100 WBC (Bld) 17.8 % Normal 15.0-45.0 [facility] Comment on above: Performed By: #### L [id number] ####Dyed Yarn Operator: FREEMAN SUAREZMartinaMICHAEL ([phone])[facility] ([facility])[address] [place] [address] MCH (RBC) [Entitic mass] 32.5 pg Normal 26.0-34.0 [facility] Comment on above: Performed By: #### L [id number] ####Dyed Yarn Operator: FREEMAN MURPHYMICHAEL ([phone])[facility] ([facility] [place] [address] MCHC 34.0 % Normal 30.5-36.0 [facility] Comment on above: Performed By: #### L [id number] ####Dyed Yarn Operator: FREEMAN DOUGHERTY ([phone])[facility] ([facility])[address] [place] [address] MCV (RBC) [Entitic vol] 95.6 fL Normal 77.0-99.0 [facility] Comment on above: Performed By: #### L [id number] ####Dyed Yarn Operator: FREEMAN FARHAT ([phone])[facility] ([facility])[address] Monocytes (Bld) [#/Vol] 0.5 10*3/uL Normal 0.0-0.9 [facility] Comment on above: Performed By: #### L [id number] ####Dyed Yarn Operator: FREEMAN FARHAT ([phone])[facility] [place] ([facility])[address] Monocytes/100 WBC (Bld) 7.1 % Normal 5.0-13.0 [facility] Comment on above: Performed By: #### L [id number] ####Dyed Yarn Operator: FREEMANSUGEY DOUGHERTY ([phone])[facility] [place] ([facility])[address] NEUTROPHILS ABSOLUTE 5.1 10*3/uL Normal 1.8-7.5 [facility] Comment on above: Performed By: #### L [id number] ####Dyed Yarn Operator: FREEMAN SUAREZMAYRA ([phone])[facility] [place] ([facility])[address] Neutrophils/100 WBC (Bld) 68.5 % Normal 38.0-82.0 [facility] Comment on above: Performed By: #### L [id number] ####Dyed Yarn Operator: FREEMAN MURPHYMICHAEL ([phone])[facility] [place] ([facility])[address] NRBC 0.0 /100 WBCs Normal 0.0-2.0 [facility] Comment on above: Performed By: #### L [id number] ####Dyed Yarn Operator: FREEMAN MURPHYMICHAEL ([phone])[facility] [place] ([facility])[address] Platelet mean volume (Bld) [Entitic vol] 10.5 fL Normal 9.0-12.7 [facility] Comment on above: Performed By: #### L [id number] ####Dyed Yarn Operator: FREEMAN DOUGHERTY ([phone])[facility] [place] ([facility])[address] Platelets (Bld) [#/Vol] 259 10*3/uL Normal 140-440 [facility] Comment on above: Performed By: #### L [id number] ####Dyed Yarn Operator: FREEMAN DOUGHERTY ([phone])[facility] [place] ([facility])[address] RBC (Bld) [#/Vol] 4.09 10*6/uL Normal 3.80-5.20 [facility] Comment on above: Performed By: #### L [id number] ####Dyed Yarn Operator: FREEMAN DOUGHERTY ([phone])[facility] [place] ([facility])[address] WBC (Bld) [#/Vol] 7.4 10*3/uL Normal 3.6-10.7 [facility] Comment on above: Performed By: #### L [id number] ####Dyed Yarn Operator: FREEMAN DOUGHERTY ([phone])[facility] ([facility])[address] COMPREHENSIVE METABOLIC PANE Mandeep 12-16-2023 Albumin [Mass/Vol] 3.9 g/dL Normal 3.5-5.0 [facility] Comment on above: Performed By: #### L AB17, [id number] ####Dyed Yarn Operator: FREEMAN DOUGHERTY ([phone])[facility] [place] ([facility])[address] ALP [Catalytic activity/Vol] 118 U/L Normal 38-126 [facility] Comment on above: Performed By: #### L AB17, [id number] ####Dyed Yarn Operator: FREEMAN DOUGHERTY ([phone])[facility] [place] ([facility])[address] ALT [Catalytic activity/Vol] 15 U/L Normal 0-34 [facility] Comment on above: Performed By: #### Nicole PIKE, [id number] ####Dyed Yarn Operator: FREEMAN DOUGHERTY ([phone])[facility] [place] ([facility])[address] Anion gap [Moles/Vol] 8 mmol/L Normal 3-13 [facility] Comment on above: Performed By: #### Nicole PIKE, [id number] ####Dyed Yarn Operator: FREEMAN DOUGHERTY ([phone])[facility] [place] ([facility])[address] AST [Catalytic activity/Vol] 25 U/L Normal 15-46 [facility] Comment on above: Performed By: #### Nicole PIKE, [id number] ####Dyed Yarn Operator: FREEMAN DOUGHERTY ([phone])[facility] ([facility])[address] Bilirubin [Mass/Vol] 0.7 mg/dL Normal 0.2-1.3 [facility] Comment on above: Performed By: #### Nicole PIKE, [id number] ####Dyed Yarn Operator: FREEMAN DOUGHERTY ([phone])[facility] [place] ([facility])[address] Calcium [Mass/Vol] 9.0 mg/dL Normal 8.4-10.4 [facility] Comment on above: Performed By: #### Nicole PIKE, [id number] ####Dyed Yarn Operator: FREEMAN DOUGHERTY ([phone])[facility] [place] ([facility])[address] [place] [address] [place] Chloride [Moles/Vol] 104 mmol/L Normal 98-107 [facility] Comment on above: Performed By: #### L AB17, [id number] ####Dyed Yarn Operator: FREEMAN DOUGHERTY ([phone])[facility] [place] ([facility])[address] [place] [address] [place] CO2 [Moles/Vol] 28 mmol/L Normal 22-30 [facility] Comment on above: Performed By: #### Nicole SINGER17, [id number] ####Dyed Yarn Operator: FREEMAN DOUGHERTY ([phone])[facility] [place] ([facility])[address] Creatinine [Mass/Vol] 1.21 mg/dL High 0.52-1.04 [facility] Comment on above: Performed By: #### Nicole PIKE, [id number] ####Dyed Yarn Operator: FREEMAN DOUGHERTY ([phone])[facility] [place] ([facility])[address] GLOMERULAR FILTRATION RATE ML/MIN/1.73 SQ M.PREDICTED 46.3 mL/min/1.73m*2 Low >60.0 [facility] Comment on above: Result Comment: Calc ulation based on the Chronic Kidney Disease Epidemiology Collaboration (CKD-EPI) equation refit without adjustment for race Performed By: #### Nicole PIKE, [id number] ####Dyed Yarn Operator: FREEMAN DOUGHERTY ([phone])[facility] [place] ([facility])[address] Glucose [Mass/Vol] 87 mg/dL Normal 70-100 [facility] Comment on above: Performed By: #### Nicole SINGER17, [id number] ####Dyed Yarn Operator: FREEMAN DOUGHERTY ([phone])[facility] ([facility])[address] [place] [address] [place] Potassium [Moles/Vol] 3.8 mmol/L Normal 3.5-5.1 [facility] Comment on above: Performed By: #### Nicole SINGER17, [id number] ####Dyed Yarn Operator: FREEMAN DOUGHERTY ([phone])[facility] ([facility])[address] Protein [Mass/Vol] 6.9 g/dL Normal 6.3-8.2 [facility] Comment on above: Performed By: #### Nicole SINGER17, [id number] ####Dyed Yarn Operator: FREEMAN DOUGHERTY ([phone])[facility] ([facility])[address] Sodium [Moles/Vol] 139 mmol/L Normal 135-145 [facility] Comment on above: Performed By: #### L AB17, [id number] ####Dyed Yarn Operator: FREEMAN DOUGHERTY ([phone])[facility] ([facility])[address] Urea nitrogen [Mass/Vol] 27 mg/dL High 7-17 [facility] Comment on above: Performed By: #### L AB17, [id number] ####Dyed Yarn Operator: FREEMAN DOUGHERTY ([phone])[facility] ([facility])[address] HEAD NECK ANGIO W AND WO IV CONTRASTon 12-16-2023 CT HEAD NECK ANGIO W AND WO IV CONTRAST Patient Name: CARLINE VILLARREAL : 1945 [facility]#: [id number] Exam Date/Time: 12/16/2023 14:40 Procedure: CT HEAD [...] There is poor filling of the left PRODUCT FINISHER. The visualized portion this vessel is very stenotic and irregular. The right PRODUCT FINISHER is unremarkable. Visualized small caliber branches in [...] lobe. * Poor visualization of the left PRODUCT FINISHER which is likely severely stenotic with poor arterial inflow. Report Dictated on Electronically Signed By: Grant Denson MD Electronically Signed Date/Time: 12/16/2023 3:18 PM EDT Pt has left side numbness/tingliness/ Pt with hx of left side stroke. States symptoms started yesterday then went away and came back today. Pt with hx of migrains and dementia. Normal [facility] CT HEAD WO IV CONTRASTon CT HEAD WO IV CONTRAST [facility] 1945 [id number] Exam Date/Time: 12/16/2023 14:38 Procedure: CT HEAD [...] There is poor filling of the left PRODUCT FINISHER. The visualized portion this vessel is very stenotic and irregular. The right PRODUCT FINISHER is unremarkable. Visualized small caliber branches in [...] lobe. * Poor visualization of the left PRODUCT FINISHER which is likely severely stenotic with poor arterial inflow. Report Dictated on Electronically Signed By: Grant Denson MD Electronically Signed Date/Time: 12/16/2023 3:18 PM EDT Pt has left side numbness/tingliness/ Pt with hx of left side stroke. States symptoms started yesterday then went away and came back today. Pt with hx of migrains and dementia. Normal [facility] CT Head WO contraston 2023 Patient Name: CARLINE VILLARREAL : 1945 Exam Date/Time: 12/16/2023 14:38 Procedure: [...] There is poor filling of the left PRODUCT FINISHER. The visualized portion this vessel is very stenotic and irregular. The right PRODUCT FINISHER is unremarkable. Visualized small caliber branches in the posterior fossa are unremarkable. Other: No evidence of a soft tissue mass or lymphadenopathy in the neck or superior mediastinum. The lung apices are clear. Small nodular opacity in the posterior aspect of the right upper lobe is most likely a fibrotic opacity. [facility] EMERGENCY [facility]PART[facility] RADIOLOGY SYSTEM Grant Denson M D - 12/16/2023 Patient Name: CAR[facility] 1945 [id number] Exam Date/Time: 12/16/2023 14:38 Procedure: CT HEAD [...] There is poor filling of the left PRODUCT FINISHER. The visualized portion this vessel is very stenotic and irregular. The right PRODUCT FINISHER is unremarkable. Visualized small caliber branches in [...] lobe. * Poor visualization of the left PRODUCT FINISHER which is likely severely stenotic with poor arterial inflow. Report Dictated on Electronically Signed By: Grant Denson MD Electronically Signed Date/Time: 12/16/2023 3:18 PM EDT [facility] Radiology Study observation (narrative) [facility] alth CTA Head vessels and Neck ve ssels WO and W contrast Lionel 12-16-2023 Patient Name: CARLINE VILLARREAL : 1945 [facility]#: [id number] Exam Date/Time: 12/16/2023 14:40 Procedure: CT HEAD [...] There is poor filling of the left PRODUCT FINISHER. The visualized portion this vessel is very stenotic and irregular. The right PRODUCT FINISHER is unremarkable. Visualized small caliber branches in the posterior fossa are unremarkable. Other: No evidence of a soft tissue mass or lymphadenopathy in the neck or superior mediastinum. The lung apices are clear. Small nodular opacity in the posterior aspect of the right upper lobe is most likely a fibrotic opacity. [facility] EMERGENC[facility] RADIOLOGY SYSTEM Grant Denson M D - 12/16/2023 Patient Name: CARLINE [facility]ARREAL [facility] 1945 [id number] Exam Date/Time: 12/16/2023 14:40 Procedure: CT HEAD [...] There is poor filling of the left PRODUCT FINISHER. The visualized portion this vessel is very stenotic and irregular. The right PRODUCT FINISHER is unremarkable. Visualized small caliber branches in [...] lobe. * Poor visualization of the left PRODUCT FINISHER which is likely severely stenotic with poor arterial inflow. Report Dictated on Electronically Signed By: Grant Denson MD Electronically Signed Date/Time: 12/16/2023 3:18 PM EDT [facility] Radiology Study observation (narrative) [facility] Comprehensive metabolic 1998 panelon 12-16-2023 Albumin [Mass/Vol] 3.9 g/dL 3.5 - 5.0 g/dL [facility] ALP [Catalytic activity/Vol] 118 U/L 38 - 126 U/L [facility] ALT [Catalytic activity/Vol] 15 U/L 0 - 34 U/L [facility] Anion gap [Moles/Vol] 8 mmol/L 3 - 13 mmol/L [facility] AST [Catalytic activity/Vol] 25 U/L 15 - 46 U/L [facility] Bilirubin [Mass/Vol] 0.7 mg/dL 0.2 - 1 .3 mg/dL [facility] Calcium [Mass/Vol] 9.0 mg/dL 8.4 - 10. 4 mg/dL [facility] Chloride [Moles/Vol] 104 mmol/L 98 - 10 7 mmol/L [facility] CO2 [Moles/Vol] 28 mmol/L 22 - 30 mmol/L [facility] Creatinine [Mass/Vol] 1.21 mg/dL High 0.52 - 1.04 mg/dL [facility] GFR/1.73 sq M.predicted MDRD (S/P/Bld) [Vol rate/Area] 46.3 mL/min/{1.73_m2} Low - PINF [facility] Comment on above: Calculation based on the Chronic Kidney Disease Epidemiology Collaboration (CKD-EPI) equation refit without adjustment for race Glucose [Mass/Vol] 87 mg/dL 70 - 100 mg/dL [facility] Interpretation and review of laboratory results Abnormal [facility] Potassium [Moles/Vol] 3.8 mmol/L 3.5 - 5.1 mmol/L [facility] Protein [Mass/Vol] 6.9 g/dL 6.3 - 8.2 g/dL [facility] Sodium [Moles/Vol] 139 mmol/L 135 - 145 mmol/L [facility] Urea nitrogen [Mass/Vol] 27 mg/dL High 7 - 17 mg/dL [facility] ED Nursing Noteon 12-16-2023 ED Nursing Note Pt presents from [place] [facility] [place] with Left side numbness/tingliness/ Pt with hx of left side stroke. States symptoms started yesterday then went away and came back today. Pt with hx of migrains and dementia. Charlene Griggs RN 12/16/23 1313 [facility] ED Provider Noteon ED Provider Note EMERGENCY [...] lobe. * Poor visualization of the left PRODUCT FINISHER which is likely severely stenotic with poor [...] atherosclerotic disease. (more content not included)... Normal [facility] Laboratory - Chemistry and C hemistry - challengeon 12-16-2023 Troponin I.cardiac [Mass/Vol] ng/mL [facility] - 0.034 ng/mL [facility] Troponin I.cardiac [Mass/Vol] ng/mL [facility] - 0.034 ng/mL [facility] Glucose [Mass/Vol] 123 mg/dL High 70 - 100 mg/dL [facility] Troponin I.cardiac [Mass/Vol] ng/mL [facility] - 0.034 ng/mL [facility] Laboratory - Chemistry and C hemistry - challengeOrdered By: Olive Peralta on 12-16-2023 Glucose [Mass/Vol] 123 mg/dL [facility] Laboratory - Coagulationon 0 12-16-2023 aPTT Coag (PPP) [Time] 25.1 s 20.0 - 30.[address] [facility] INR Coag (PPP) [Relative time] 1.0 {INR} 0.9 - 1.[address] [facility] Comment on above: Recommended Anticoag ulant Therapy: [...] 10.9 s 9.0 - 1 2.[address] [facility] No Panel Informationon 12-15 P [place] [address] [facility] VA Interval [address] [facility] QRS [place] [address] [facility] QRSD Interval 98 ms [facility] QT Interval [address] [facility] QTC Interval [address] [facility] T Wave [place] [address] [facility] Avi Peralta MD - 12/16/2023 IMPRESSION: Sinus bradycardia Abnormal R-wave progression, early transition No acute change compared to first previous EKG. Electronically Signed On 12-16-2023 22:33:18 EDT by Avi Peralta [facility] Avi Peralta MD - 12/16/2023 IMPRESSION: Sinus bradycardia Abnormal R-wave progression, early transition Borderline repolarization abnormality Electronically Signed On 12-16-2023 21:17:50 EDT by Avi Peralta [facility] Interpretation and review of laboratory results Abnormal [facility] Performed by: [facility], [address] [place] [address] CLIA ID: [id number] [facility] CT Head: * No acute intracranial abnormality. [...] lobe. * Poor visualization of the left PRODUCT FINISHER which is likely severely stenotic with poor arterial inflow. Report Dictated on Electronically Signed By: Grant Denson MD Electronically Signed Date/Time: 12/16/2023 3:18 PM EDT [facility] RADIOLOGY SYSTEM Interpretation and review of laboratory results Normal [facility] Radiology Study observation (narrative) [facility] No Panel InformationOrdered By: Avi Peralta on 12-16-2023 P [place] 10 degrees [facility] [employer] Work Phone: VA Interval 188 ms [facility] [employer] Work Phone: QRS [place] 11 degrees [facility] [employer] Work Phone: QRSD Interval 93 ms [facility] [employer] Work Phone: QT Interval 484 ms [facility] [employer] Work Phone: QTC Interval 435 ms [facility] [employer] Work Phone: T Wave [place] -4 degrees [facility] [employer] Work Phone: [facility] [employer] Work Phone: No Panel InformationOrdered By: Olive Peralta on 12-16-2023 Interpretation and review of laboratory results Normal [facility] Radiology Study observation (narrative) [facility] No Panel InformationOrdered By: Grant Denson on 12-16-[address] [facility] Work Phone: PROTIME AND APTTon aPTT Coag (Bld) [Time] 25.1 s Normal 20.0-30.5 [facility] Comment on above: Performed By: #### L [id number] ####Dyed Yarn Operator: FREEMAN DOUGHERTY ([phone])[facility] ([facility])[address] [place] [address] INR Coag (PPP) [Relative time] 1.0 {INR} Normal 0.9-1.1 [facility] Comment on above: Result Comment: Patrick mmended [...] prevent Myocardial Infarction Performed By: #### L [id number] ####Dyed Yarn Operator: FREEMAN DOUGHERTY ([phone])[facility] ([facility])[address] [place] [address] PT Coag (PPP) [Time] 10.9 s Normal 9.0-12.0 [facility] Comment on above: Performed By: #### L [id number] ####Dyed Yarn Operator: FREEMAN DOUGHERTY ([phone])[facility] ([facility])[address] [place] [address] Progress Noteon 12-16-2023 Progress Note [facility] ANGELA Villarreal : 1945 Primary Care Physician: Evi Guevara The patient and/or family/surrogate voluntarily agreed to participate in ACP services. Patient?s cognitive capacity: Does not have capacity Code Status: [x] [FULL CODE - Continue all advanced life support: CPR,intubation,invasiv e procedures] [_] [DNR-CCA - DO NOT do CPR, intubation] [_] [DNR-MANUAL EQUIPMENT MECHANIC - Comfort care only] [_] DNR form [...] and/or family/surrogate. Bartolo Meehan MD [facility] 12/16/2023, 4:16 PM Normal [facility] TROPONIN Ion 12-16-2023 Troponin I.cardiac [Mass/Vol] ng/mL Normal <0.034 [facility] Comment on above: Result Comment: SUKH Smith COMMENTS: Patients with high levels of Biotin oral intake (ie >5 mg/day) may have falsely decreased Troponin levels. Performed By: #### L [id number] ####Dyed Yarn Operator: FREEMAN DOUGHERTY ([phone])[facility])[address] [place] [address] Troponin I.cardiac [Mass/Vol] ng/mL Normal <0.034 [facility] Comment on above: Result Comment: SUKH Smith COMMENTS: Patients with high levels of Biotin oral intake (ie >5 mg/day) may have falsely decreased Troponin levels. Performed By: #### L [id number] ####Dyed Yarn Operator: FREEMAN [phone])[facility] ([facility])[address] [place] [address] [place] TROPONIN, WITH SERIAL REFLEX on 12-16-2023 Troponin I.cardiac [Mass/Vol] ng/mL Normal <0.034 [facility] Comment on above: Result Comment: SUKH Smith COMMENTS: Patients with high levels of Biotin oral intake (ie >5 mg/day) may have falsely decreased Troponin levels. Performed By: #### L AB17, [id number] ####Dyed Yarn Operator: FREEMAN DOUGHERTY ([phone])[facility] ([facility])[address] Troponin I.cardiac [Mass/Vol ]on 12-16-2023 Interpretation and review of laboratory results Normal [facility] Patients with high levels of Biotin oral intake (ie >5 mg/day) may have falsely decreased Troponin levels. [facility] Interpretation and review of laboratory results Normal [facility] Patients with high levels of Biotin oral intake (ie >5 mg/day) may have falsely decreased Troponin levels. [facility] Interpretation and review of laboratory results Normal [facility] Patients with high levels of Biotin oral intake (ie >5 mg/day) may have falsely decreased Troponin levels. [facility] Vital signson 12-16-2023 Heart rate 49 /min bpm [facility] Vital signsOrdered By: Fahad Peralta on 12-16-2023 Heart rate 49 /min bpm [facility] Work Phone: Basophil percentageOrdered B y: Evi Guevara on 09-23-2023 Bilirubin [Mass/Vol] 0.60 mg/dL 0.20-1.00 [facility] Comment on above: For patients on eltr ombopag therapy, use of Dimension [place] TBIL is not recommended. Chloride [Moles/Vol] 107 mmol/L 98-107 [facility] Cholesterol [Mass/Vol] 120 mg/dL <200 [facility] Comment on above: <200 mg/dL Desirable 200-240 mg/dL Borderline >240 mg/dL High Risk Glucose [Mass/Vol] 114 mg/dL 74-106 [facility] Comment on above: Fasting Glucose resu lt from 100 to 125 mg/dL suggests IMPAIRED HOMEOSTASIS per A.D.A. criteria. Hemoglobin (Bld) [Mass/Vol] 12.3 g/dL 12.0-15.0 [facility] Potassium [Moles/Vol] 3.8 mmol/L 3.5-5.1 [facility] Protein [Mass/Vol] 6.1 g/dL 6.4-8.2 [facility] Sodium [Moles/Vol] 140 mmol/L 136-145 [facility] Triglyceride [Mass/Vol] 106 mg/dL <199 [facility] Comment on above: The drugs N-Acetylcy steine and Metamizole may falsely depress this assay.Serum Triglycerides Reference Interval Normal <150 mg/dL Borderline high 150 - 199 mg/dL High 200 - 499 mg/dL Very High > or = 500 mg/dL WBC (Bld) [#/Vol] 5.7 10*3/uL 4.4-11.0 [facility] Determination of erythrocyte mean corpuscular volume (MCV)Ordered By: Evi Guevara on 09-23-2023 MCV (RBC) [Entitic vol] 97.9 fL 81-99 [facility] Erythrocyte distribution wid th ratioOrdered By: Evi Guevara on 09-23-2023 Erythrocyte distribution width (RBC) [Ratio] 13.0 % 11.6-14.6 [facility] Erythrocyte distribution wid th standard deviationOrdered By: Evi Guevara on 09-23-2023 Erythrocyte distribution width (RBC) [Entitic vol] 46.3 fL 35.1-43.9 [facility] Hematocrit Auto (Bld) [Volum e fraction]Ordered By: Evi Guevara on 09-23-2023 Hematocrit (Bld) [Volume fraction] 38.0 % 37-47 [facility] Laboratory - Chemistry and C hemistry - challengeOrdered By: Evi Guevara on 09-23-2023 Albumin/Globulin [Mass ratio] 1.0 {ratio} 0.9-2.4 [facility] ALP [Catalytic activity/Vol] 102 U/L 45-117 [facility] ALT [Catalytic activity/Vol] 15 U/L 13-56 [facility] Cholesterol in HDL [Mass/Vol] 45 mg/dL >40 [facility] Comment on above: The drugs N-Acetylcy steine and Metamizole may falsely depress this assay. Reference Range HDL <40 mg/dL Low HDL Cholesterol HDL >or= 60 mg/dL High HDL Cholesterol Cholesterol in LDL [Mass/Vol] 54 mg/dL 0-130 [facility] CO2 [Moles/Vol] 27.0 mmol/L 21.0-32.0 [facility] Globulin (S) [Mass/Vol] 3.1 g/dL 2.2-4.2 [facility] Urea nitrogen/Creatinine [Mass ratio] 25.7 mg/mg 10-20 [facility] Laboratory - Hematology and Cell countsOrdered By: Evi Guevara on 09-23-2023 MCH (RBC) [Entitic mass] 31.7 pg 27.0-32.0 [facility] MCHC (RBC) [Mass/Vol] 32.4 g/dL 32-36 [facility] Platelet mean volume (Bld) [Entitic vol] 11.0 fL 6.2-12.0 [facility] Platelets (Bld) [#/Vol] 214 10*3/uL 150-450 [facility] No Panel InformationOrdered By: Evi Guevara on 09-23-2023 Estimated GFR (MDRD) Amer 48 mL/min >60 [facility] Comment on above: GFR Calc Estimated GFR (MDRD) Non-Af Amer 40 mL/min >60 [facility] Comment on above: Non- GFR Calc VLDL Cholesterol 21 mg/dL 5-40 [facility] RBC Auto (Bld) [#/Vol]Ordere d By: Evi Guevara on 09-23-2023 RBC (Bld) [#/Vol] 3.88 10*6/uL 4.2-5.4 [facility] Serum or plasma calcium jeffrey urement (mass/volume)Ordered By: Evi Guevara on 09-23-2023 Calcium [Mass/Vol] 8.8 mg/dL 8.5-10.1 [facility] Serum or plasma creatinine m easurement (mass/volume)Ordered By: Evi Guevara on 09-23-2023 Creatinine [Mass/Vol] 1.36 mg/dL 0.55-1.02 [facility] Comment on above: The validity of the calculated GFR & GFRAA in patients over 70 years has not been determined. Clinical correlation is essential. Serum or plasma thyroid stim ulating hormone (TSH) measurement (units/volume)Ordered By: Evi Guevara on 09-23-2023 TSH Qn 3.30 uIU/mL 0.358-3.74 [facility] Serum or plasma urea nitroge n measurement (mass/volume)Ordered By: Evi Guevara on 09-23-2023 Urea nitrogen [Mass/Vol] 35 mg/dL 7-18 [facility] Thin prep Papanicolaou smear with manual screeningOrdered By: Evi Guevara on 09-23-2023 Thin prep Papanicolaou smear with manual screening 3.0 g/dL 3.2-5.0 [facility] Thin prep Papanicolaou smear with manual screening 17 U/L 15-37 [facility] Thin prep Papanicolaou smear with manual screening 6 5-15 [facility] Basophil percentageOrdered B y: Evi Guevara on 09-13-2023 Chloride [Moles/Vol] 109 mmol/L 98-107 [facility] Cholesterol [Mass/Vol] 132 mg/dL <200 [facility] Comment on above: <200 mg/dL Desirable 200-240 mg/dL Borderline >240 mg/dL High Risk Glucose [Mass/Vol] 113 mg/dL 74-106 [facility] Comment on above: Fasting Glucose resu lt from 100 to 125 mg/dL suggests IMPAIRED HOMEOSTASIS per A.D.A. criteria. Hemoglobin (Bld) [Mass/Vol] 12.6 g/dL 12.0-15.0 [facility] Potassium [Moles/Vol] 4.0 mmol/L 3.5-5.1 [facility] Sodium [Moles/Vol] 142 mmol/L 136-145 [facility] Triglyceride [Mass/Vol] 76 mg/dL <199 [facility] Comment on above: The drugs N-Acetylcy steine and Metamizole may falsely depress this assay.Serum Triglycerides Reference Interval Normal <150 mg/dL Borderline high 150 - 199 mg/dL High 200 - 499 mg/dL Very High > or = 500 mg/dL WBC (Bld) [#/Vol] 5.9 10*3/uL 4.4-11.0 [facility] Determination of erythrocyte mean corpuscular volume (MCV)Ordered By: Evi Guevara on 09-13-2023 MCV (RBC) [Entitic vol] 97.2 fL 81-99 [facility] Erythrocyte distribution wid th ratioOrdered By: Evi Guevara on 09-13-2023 Erythrocyte distribution width (RBC) [Ratio] 13.1 % 11.6-14.6 [facility] Erythrocyte distribution wid th standard deviationOrdered By: Evi Guevara on 09-13-2023 Erythrocyte distribution width (RBC) [Entitic vol] 46.4 fL 35.1-43.9 [facility] Hematocrit Auto (Bld) [Volum e fraction]Ordered By: Evi Guevara on 09-13-2023 Hematocrit (Bld) [Volume fraction] 37.8 % 37-47 [facility] Laboratory - Chemistry and C hemistry - challengeOrdered By: Evi Guevara on 09-13-2023 Cholesterol in HDL [Mass/Vol] 48 mg/dL >40 [facility] Comment on above: The drugs N-Acetylcy steine and Metamizole may falsely depress this assay. Reference Range HDL <40 mg/dL Low HDL Cholesterol HDL >or= 60 mg/dL High HDL Cholesterol Cholesterol in LDL [Mass/Vol] 69 mg/dL 0-130 [facility] CO2 [Moles/Vol] 25.0 mmol/L 21.0-32.0 [facility] Urea nitrogen/Creatinine [Mass ratio] 23.3 mg/mg 10-20 [facility] Laboratory - Hematology and Cell countsOrdered By: Evi Guevara on 09-13-2023 MCH (RBC) [Entitic mass] 32.4 pg 27.0-32.0 [facility] MCHC (RBC) [Mass/Vol] 33.3 g/dL 32-36 [facility] Platelet mean volume (Bld) [Entitic vol] 11.0 fL 6.2-12.0 [facility] Platelets (Bld) [#/Vol] 214 10*3/uL 150-450 [facility] No Panel InformationOrdered By: Evi Guevara on 09-13-2023 Estimated GFR (MDRD) Amer 50 mL/min >60 [facility] Comment on above: GFR Calc Estimated GFR (MDRD) Non-Af Amer 41 mL/min >60 [facility] Comment on above: Non- GFR Calc Vitamin D 25-Hydroxy 46.6 ng/mL [facility] Comment on above: Vitamin D 25(OH) Sta tus Range Deficiency <20 ng/mL (50nmol/L) Insufficiency 20 - 30 ng/mL (50 - 75 nmol/L) Sufficiency 30 - 100 ng/mL (75 - 250 nmol/L) Toxicity >100 ng/mL (>250 nmol/L) VLDL Cholesterol 15 mg/dL 5-40 [facility] RBC Auto (Bld) [#/Vol]Ordere d By: Evi Guevara on 09-13-2023 RBC (Bld) [#/Vol] 3.89 10*6/uL 4.2-5.4 [facility] Serum or plasma calcium jeffrey urement (mass/volume)Ordered By: Evi Guevara on 09-13-2023 Calcium [Mass/Vol] 9.3 mg/dL 8.5-10.1 [facility] Serum or plasma creatinine m easurement (mass/volume)Ordered By: Evi Guevara on 09-13-2023 Creatinine [Mass/Vol] 1.33 mg/dL 0.55-1.02 [facility] Comment on above: The validity of the calculated GFR & GFRAA in patients over 70 years has not been determined. Clinical correlation is essential. Serum or plasma thyroid stim ulating hormone (TSH) measurement (units/volume)Ordered By: Evi Guevara on 09-13-2023 TSH Qn 3.12 uIU/mL 0.358-3.74 [facility] Serum or plasma urea nitroge n measurement (mass/volume)Ordered By: Evi Guevara on 09-13-2023 Urea nitrogen [Mass/Vol] 31 mg/dL 7-18 [facility] Thin prep Papanicolaou smear with manual screeningOrdered By: Evi Gueavra on 09-13-2023 Thin prep Papanicolaou smear with manual screening 8 5-15 [facility] Whole blood hemoglobin A1c/t otal hemoglobin ratio (mass fraction)Ordered By: Evi Guevara on 09-13-2023 HbA1c (Bld) [Mass fraction] 5.5 % 3.8-5.6 [facility] Comment on above: Normal < 5.7 % Predi abetic 5.7 - 6.4 % Diabetic >or= 6.5 % Please note range changes. Basophil percentageOrdered B y: Evi Guevara on 09-10-2023 Chloride [Moles/Vol] 107 mmol/L 98-107 [facility] Glucose [Mass/Vol] 166 mg/dL 74-106 [facility] Comment on above: Fasting Glucose resu lt greater than or equal to 126 mg/dL suggests DIABETES MELLITUS per A.D.A. criteria. Hemoglobin (Bld) [Mass/Vol] 13.4 g/dL 12.0-15.0 [facility] Potassium [Moles/Vol] 3.7 mmol/L 3.5-5.1 [facility] Sodium [Moles/Vol] 140 mmol/L 136-145 [facility] WBC (Bld) [#/Vol] 5.3 10*3/uL 4.4-11.0 [facility] Determination of erythrocyte mean corpuscular volume (MCV)Ordered By: Evi Guevara on 09-10-2023 MCV (RBC) [Entitic vol] 96.3 fL 81-99 [facility] Erythrocyte distribution wid th ratioOrdered By: Evi Guevara on 09-10-2023 Erythrocyte distribution width (RBC) [Ratio] 12.9 % 11.6-14.6 [facility] Erythrocyte distribution wid th standard deviationOrdered By: Evi Guevara on 09-10-2023 Erythrocyte distribution width (RBC) [Entitic vol] 46.3 fL 35.1-43.9 [facility] Hematocrit Auto (Bld) [Volum e fraction]Ordered By: Evi Guevara on 09-10-2023 Hematocrit (Bld) [Volume fraction] 39.2 % 37-47 [facility] Laboratory - Chemistry and C hemistry - challengeOrdered By: Evi Guevara on 09-10-2023 CO2 [Moles/Vol] 26.0 mmol/L 21.0-32.0 [facility] Urea nitrogen/Creatinine [Mass ratio] 23.4 mg/mg 10-20 [facility] Laboratory - Hematology and Cell countsOrdered By: Evi Guevara on 09-10-2023 MCH (RBC) [Entitic mass] 32.9 pg 27.0-32.0 [facility] MCHC (RBC) [Mass/Vol] 34.2 g/dL 32-36 [facility] Platelet mean volume (Bld) [Entitic vol] 10.8 fL 6.2-12.0 [facility] Platelets (Bld) [#/Vol] 219 10*3/uL 150-450 [facility] No Panel InformationOrdered By: Evi Guevara on 09-10-2023 Estimated GFR (MDRD) Amer 48 mL/min >60 [facility] Comment on above: GFR Calc Estimated GFR (MDRD) Non-Af Amer 40 mL/min >60 [facility] Comment on above: Non- GFR Calc RBC Auto (Bld) [#/Vol]Ordere d By: Evi Guevara on 09-10-2023 RBC (Bld) [#/Vol] 4.07 10*6/uL 4.2-5.4 [facility] Serum or plasma calcium jeffrey urement (mass/volume)Ordered By: Evi Guevara on 09-10-2023 Calcium [Mass/Vol] 9.4 mg/dL 8.5-10.1 [facility] Serum or plasma creatinine m easurement (mass/volume)Ordered By: Evi Guevara on 09-10-2023 Creatinine [Mass/Vol] 1.37 mg/dL 0.55-1.02 [facility] Comment on above: The validity of the calculated GFR & GFRAA in patients over 70 years has not been determined. Clinical correlation is essential. Serum or plasma urea nitroge n measurement (mass/volume)Ordered By: Evi Guevara on 09-10-2023 Urea nitrogen [Mass/Vol] 32 mg/dL 7-18 [facility] Thin prep Papanicolaou smear with manual screeningOrdered By: Evi Guevara on 09-10-2023 Thin prep Papanicolaou smear with manual screening 7 5-15 [facility] Basophil percentageOrdered B y: Evi Guevara on 08-13-2023 Chloride [Moles/Vol] 108 mmol/L 98-107 [facility] Glucose [Mass/Vol] 122 mg/dL 74-106 [facility] Comment on above: Fasting Glucose resu lt from 100 to 125 mg/dL suggests IMPAIRED HOMEOSTASIS per A.D.A. criteria. Hemoglobin (Bld) [Mass/Vol] 13.2 g/dL 12.0-15.0 [facility] Potassium [Moles/Vol] 3.6 mmol/L 3.5-5.1 [facility] Sodium [Moles/Vol] 141 mmol/L 136-145 [facility] WBC (Bld) [#/Vol] 6.3 10*3/uL 4.4-11.0 [facility] Determination of erythrocyte mean corpuscular volume (MCV)Ordered By: Evi Guevara on 08-13-2023 MCV (RBC) [Entitic vol] 98.5 fL 81-99 [facility] Erythrocyte distribution wid th ratioOrdered By: Evi Guevara on 08-13-2023 Erythrocyte distribution width (RBC) [Ratio] 13.3 % 11.6-14.6 [facility] Erythrocyte distribution wid th standard deviationOrdered By: Evi Guevara on 08-13-2023 Erythrocyte distribution width (RBC) [Entitic vol] 48.2 fL 35.1-43.9 [facility] Hematocrit Auto (Bld) [Volum e fraction]Ordered By: Evi Guevara on 08-13-2023 Hematocrit (Bld) [Volume fraction] 40.4 % 37-47 [facility] Laboratory - Chemistry and C hemistry - challengeOrdered By: Evi Guevara on 08-13-2023 CO2 [Moles/Vol] 29.0 mmol/L 21.0-32.0 [facility] Urea nitrogen/Creatinine [Mass ratio] 22.4 mg/mg 10-20 [facility] Laboratory - Hematology and Cell countsOrdered By: Evi Guevara on 08-13-2023 MCH (RBC) [Entitic mass] 32.2 pg 27.0-32.0 [facility] MCHC (RBC) [Mass/Vol] 32.7 g/dL 32-36 [facility] Platelet mean volume (Bld) [Entitic vol] 11.0 fL 6.2-12.0 [facility] Platelets (Bld) [#/Vol] 230 10*3/uL 150-450 [facility] No Panel InformationOrdered By: Evi Guevara on 08-13-2023 Estimated GFR (MDRD) Amer 43 mL/min >60 [facility] Comment on above: GFR Calc Estimated GFR (MDRD) Non-Af Amer 35 mL/min >60 [facility] Comment on above: Non- GFR Calc RBC Auto (Bld) [#/Vol]Ordere d By: Evi Guevara on 08-13-2023 RBC (Bld) [#/Vol] 4.10 10*6/uL 4.2-5.4 [facility] Serum or plasma calcium jeffrey urement (mass/volume)Ordered By: Evi Guevara on 08-13-2023 Calcium [Mass/Vol] 8.9 mg/dL 8.5-10.1 [facility] Serum or plasma creatinine m easurement (mass/volume)Ordered By: Evi Guevara on 08-13-2023 Creatinine [Mass/Vol] 1.52 mg/dL 0.55-1.02 [facility] Comment on above: The validity of the calculated GFR & GFRAA in patients over 70 years has not been determined. Clinical correlation is essential. Serum or plasma urea nitroge n measurement (mass/volume)Ordered By: Evi Guevara on 08-13-2023 Urea nitrogen [Mass/Vol] 34 mg/dL 7-18 [facility] Thin prep Papanicolaou smear with manual screeningOrdered By: Evi Guevara on 08-13-2023 Thin prep Papanicolaou smear with manual screening 4 5-15 [facility] Basophil percentageOrdered B y: Evi Guevara on 08-02-2023 Chloride [Moles/Vol] 112 mmol/L 98-107 [facility] Glucose [Mass/Vol] 126 mg/dL 74-106 [facility] Comment on above: Fasting Glucose resu lt greater than or equal to 126 mg/dL suggests DIABETES MELLITUS per A.D.A. criteria. Hemoglobin (Bld) [Mass/Vol] 12.3 g/dL 12.0-15.0 [facility] Potassium [Moles/Vol] 3.7 mmol/L 3.5-5.1 [facility] Sodium [Moles/Vol] 141 mmol/L 136-145 [facility] WBC (Bld) [#/Vol] 5.1 10*3/uL 4.4-11.0 [facility] Determination of erythrocyte mean corpuscular volume (MCV)Ordered By: Evi Guevara on 08-02-2023 MCV (RBC) [Entitic vol] 97.7 fL 81-99 [facility] Erythrocyte distribution wid th ratioOrdered By: Evi Guevara on 08-02-2023 Erythrocyte distribution width (RBC) [Ratio] 13.5 % 11.6-14.6 [facility] Erythrocyte distribution wid th standard deviationOrdered By: Evi Guevara on 08-02-2023 Erythrocyte distribution width (RBC) [Entitic vol] 48.5 fL 35.1-43.9 [facility] Hematocrit Auto (Bld) [Volum e fraction]Ordered By: Evi Guevara on 08-02-2023 Hematocrit (Bld) [Volume fraction] 37.5 % 37-47 [facility] Laboratory - Chemistry and C hemistry - challengeOrdered By: Evi Guevara on 08-02-2023 CO2 [Moles/Vol] 25.0 mmol/L 21.0-32.0 [facility] Urea nitrogen/Creatinine [Mass ratio] 17.9 mg/mg 10-20 [facility] Laboratory - Hematology and Cell countsOrdered By: Evi Guevara on 08-02-2023 MCH (RBC) [Entitic mass] 32.0 pg 27.0-32.0 [facility] MCHC (RBC) [Mass/Vol] 32.8 g/dL 32-36 [facility] Platelets (Bld) [#/Vol] 217 10*3/uL 150-450 [facility] No Panel InformationOrdered By: Evi Guevara on 08-02-2023 Estimated GFR (MDRD) Amer 45 mL/min >60 [facility] Comment on above: GFR Calc Estimated GFR (MDRD) Non-Af Amer 37 mL/min >60 [facility] Comment on above: Non- GFR Calc Platelet mean volume Kt-Ec ker (Bld) [Entitic vol]Ordered By: Evi Guevara on 08-02-2023 Platelet mean volume (Bld) [Entitic vol] 11.0 fL 6.2-12.0 [facility] RBC Auto (Bld) [#/Vol]Ordere d By: Evi Guevara on 08-02-2023 RBC (Bld) [#/Vol] 3.84 10*6/uL 4.2-5.4 [facility] Serum or plasma calcium jeffrey urement (mass/volume)Ordered By: Evi Guevara on 08-02-2023 Calcium [Mass/Vol] 9.1 mg/dL 8.5-10.1 [facility] Serum or plasma creatinine m easurement (mass/volume)Ordered By: Evi Guevara on 08-02-2023 Creatinine [Mass/Vol] 1.45 mg/dL 0.55-1.02 [facility] Comment on above: The validity of the calculated GFR & GFRAA in patients over 70 years has not been determined. Clinical correlation is essential. Serum or plasma urea nitroge n measurement (mass/volume)Ordered By: Evi Guevara on 08-02-2023 Urea nitrogen [Mass/Vol] 26 mg/dL 7-18 [facility] Thin prep Papanicolaou smear with manual screeningOrdered By: Evi Guevara on 08-02-2023 Thin prep Papanicolaou smear with manual screening 4 5-15 [facility] Basophil percentageOrdered B y: Evi Guevara on 07-13-2023 Chloride [Moles/Vol] 110 mmol/L 98-107 [facility] Glucose [Mass/Vol] 134 mg/dL 74-106 [facility] Comment on above: Fasting Glucose resu lt greater than or equal to 126 mg/dL suggests DIABETES MELLITUS per A.D.A. criteria. Potassium [Moles/Vol] 4.0 mmol/L 3.5-5.1 [facility] Sodium [Moles/Vol] 141 mmol/L 136-145 [facility] Laboratory - Chemistry and C hemistry - challengeOrdered By: Evi Guevara on 07-13-2023 CO2 [Moles/Vol] 26.0 mmol/L 21.0-32.0 [facility] Urea nitrogen/Creatinine [Mass ratio] 19.7 mg/mg 10-20 [facility] No Panel InformationOrdered By: Evi Guevara on 07-13-2023 Estimated GFR (MDRD) Amer 48 mL/min >60 [facility] Comment on above: GFR Calc Estimated GFR (MDRD) Non-Af Amer 40 mL/min >60 [facility] Comment on above: Non- GFR Calc Serum or plasma calcium jeffrey urement (mass/volume)Ordered By: Evi Guevara on 07-13-2023 Calcium [Mass/Vol] 9.7 mg/dL 8.5-10.1 [facility] Serum or plasma creatinine m easurement (mass/volume)Ordered By: Evi Guevara on 07-13-2023 Creatinine [Mass/Vol] 1.37 mg/dL 0.55-1.02 [facility] Comment on above: The validity of the calculated GFR & GFRAA in patients over 70 years has not been determined. Clinical correlation is essential. Serum or plasma urea nitroge n measurement (mass/volume)Ordered By: Evi Guevara on 07-13-2023 Urea nitrogen [Mass/Vol] 27 mg/dL 7-18 [facility] Thin prep Papanicolaou smear with manual screeningOrdered By: Evi Guevara on 07-13-2023 Thin prep Papanicolaou smear with manual screening 5 5-15 [facility] Basophil percentageOrdered B y: Evi Guevara on 06-29-2023 Chloride [Moles/Vol] 110 mmol/L 98-107 [facility] Glucose [Mass/Vol] 141 mg/dL 74-106 [facility] Comment on above: Fasting Glucose resu lt greater than or equal to 126 mg/dL suggests DIABETES MELLITUS per A.D.A. criteria. Potassium [Moles/Vol] 3.9 mmol/L 3.5-5.1 [facility] Sodium [Moles/Vol] 141 mmol/L 136-145 [facility] WBC (Bld) [#/Vol] 6.8 10*3/uL 4.4-11.0 [facility] Blood erythrocytes count (nu mber/volume)Ordered By: Evi Guevara on 06-29-2023 RBC (Bld) [#/Vol] 4.24 10*6/uL 4.2-5.4 [facility] Blood hemoglobin measurement (mass/volume)Ordered By: Evi Guevara on 06-29-2023 Hemoglobin (Bld) [Mass/Vol] 13.7 g/dL 12.0-15.0 [facility] Blood platelet mean volumeOr dered By: Evi Guevara on 06-29-2023 Platelet mean volume (Bld) [Entitic vol] 11.4 fL 6.2-12.0 [facility] Determination of erythrocyte mean corpuscular volume (MCV)Ordered By: Evi Guevara on 06-29-2023 MCV (RBC) [Entitic vol] 97.9 fL 81-99 [facility] Hematocrit Auto (Bld) [Volum e fraction]Ordered By: Evi Guevara on 06-29-2023 Hematocrit (Bld) [Volume fraction] 41.5 % 37-47 [facility] Laboratory - Chemistry and C hemistry - challengeOrdered By: Evi Guevara on 06-29-2023 CO2 [Moles/Vol] 27.0 mmol/L 21.0-32.0 [facility] Urea nitrogen/Creatinine [Mass ratio] 22.7 mg/mg 10-20 [facility] Laboratory - Hematology and Cell countsOrdered By: Evi Guevara on 06-29-2023 Erythrocyte distribution width (RBC) [Entitic vol] 49.7 fL 35.1-43.9 [facility] Erythrocyte distribution width (RBC) [Ratio] 13.7 % 11.6-14.6 [facility] MCH (RBC) [Entitic mass] 32.3 pg 27.0-32.0 [facility] MCHC Auto (RBC) [Mass/Vol]Or dered By: Evi Guevara on 06-29-2023 MCHC (RBC) [Mass/Vol] 33.0 g/dL 32-36 [facility] No Panel InformationOrdered By: Evi Guevara on 06-29-2023 Estimated GFR (MDRD) Amer 46 mL/min >60 [facility] Comment on above: GFR Calc Estimated GFR (MDRD) Non-Af Amer 38 mL/min >60 [facility] Comment on above: Non- GFR Calc Platelets bldOrdered By: Mark Guevara on 06-29-2023 Platelets (Bld) [#/Vol] 215 10*3/uL 150-450 [facility] Serum or plasma calcium jeffrey urement (mass/volume)Ordered By: Evi Guevara on 06-29-2023 Calcium [Mass/Vol] 9.3 mg/dL 8.5-10.1 [facility] Serum or plasma creatinine m easurement (mass/volume)Ordered By: Evi Guevara on 06-29-2023 Creatinine [Mass/Vol] 1.41 mg/dL 0.55-1.02 [facility] Comment on above: The validity of the calculated GFR & GFRAA in patients over 70 years has not been determined. Clinical correlation is essential. Serum or plasma urea nitroge n measurement (mass/volume)Ordered By: Evi Guevara on 06-29-2023 Urea nitrogen [Mass/Vol] 32 mg/dL 7-18 [facility] Thin prep Papanicolaou smear with manual screeningOrdered By: Evi Guevara on 06-29-2023 Thin prep Papanicolaou smear with manual screening 4 5-15 [facility] Basophil percentageOrdered B y: Evi Guevara on 06-21-2023 Chloride [Moles/Vol] 111 mmol/L 98-107 [facility] Glucose [Mass/Vol] 124 mg/dL 74-106 [facility] Comment on above: Fasting Glucose resu lt from 100 to 125 mg/dL suggests IMPAIRED HOMEOSTASIS per A.D.A. criteria. Potassium [Moles/Vol] 4.0 mmol/L 3.5-5.1 [facility] Comment on above: Slight Hemolysis, Re sult may be falsely increased. Sodium [Moles/Vol] 142 mmol/L 136-145 [facility] WBC (Bld) [#/Vol] 5.7 10*3/uL 4.4-11.0 [facility] Blood erythrocytes count (nu mber/volume)Ordered By: Evi Guevara on 06-21-2023 RBC (Bld) [#/Vol] 3.93 10*6/uL 4.2-5.4 [facility] Blood hemoglobin measurement (mass/volume)Ordered By: Evi Guevara on 06-21-2023 Hemoglobin (Bld) [Mass/Vol] 12.6 g/dL 12.0-15.0 [facility] Blood platelet mean volumeOr dered By: Evi Guevara on 06-21-2023 Platelet mean volume (Bld) [Entitic vol] 11.2 fL 6.2-12.0 [facility] Determination of erythrocyte mean corpuscular volume (MCV)Ordered By: Evi Guevara on 06-21-2023 MCV (RBC) [Entitic vol] 98.0 fL 81-99 [facility] Hematocrit Auto (Bld) [Volum e fraction]Ordered By: Evi Guevara on 06-21-2023 Hematocrit (Bld) [Volume fraction] 38.5 % 37-47 [facility] Laboratory - Chemistry and C hemistry - challengeOrdered By: Evi Guevara on 06-21-2023 CO2 [Moles/Vol] 23.0 mmol/L 21.0-32.0 [facility] Urea nitrogen/Creatinine [Mass ratio] 19.3 mg/mg 10-20 [facility] Laboratory - Hematology and Cell countsOrdered By: Evi Guevara on 06-21-2023 Erythrocyte distribution width (RBC) [Entitic vol] 49.9 fL 35.1-43.9 [facility] Erythrocyte distribution width (RBC) [Ratio] 13.6 % 11.6-14.6 [facility] MCH (RBC) [Entitic mass] 32.1 pg 27.0-32.0 [facility] MCHC Auto (RBC) [Mass/Vol]Or dered By: Evi Guevara on 06-21-2023 MCHC (RBC) [Mass/Vol] 32.7 g/dL 32-36 [facility] No Panel InformationOrdered By: Evi Guevara on 06-21-2023 Estimated GFR (MDRD) Amer 49 mL/min >60 [facility] Comment on above: GFR Calc Estimated GFR (MDRD) Non-Af Amer 40 mL/min >60 [facility] Comment on above: Non- GFR Calc Platelets bldOrdered By: Mark Guevara on 06-21-2023 Platelets (Bld) [#/Vol] 207 10*3/uL 150-450 [facility] Serum or plasma calcium jeffrey urement (mass/volume)Ordered By: Evi Guevara on 06-21-2023 Calcium [Mass/Vol] 8.7 mg/dL 8.5-10.1 [facility] Serum or plasma creatinine m easurement (mass/volume)Ordered By: Evi Guevara on 06-21-2023 Creatinine [Mass/Vol] 1.35 mg/dL 0.55-1.02 [facility] Comment on above: The validity of the calculated GFR & GFRAA in patients over 70 years has not been determined. Clinical correlation is essential. Serum or plasma urea nitroge n measurement (mass/volume)Ordered By: Evi Guevara on 06-21-2023 Urea nitrogen [Mass/Vol] 26 mg/dL 7-18 [facility] Thin prep Papanicolaou smear with manual screeningOrdered By: Evi Guevara on 06-21-2023 Thin prep Papanicolaou smear with manual screening 8 5-15 [facility] Basophil percentageOrdered B y: Evi Guevara on 06-02-2023 Chloride [Moles/Vol] 110 mmol/L 98-107 [facility] Glucose [Mass/Vol] 132 mg/dL 74-106 [facility] Comment on above: Fasting Glucose resu lt greater than or equal to 126 mg/dL suggests DIABETES MELLITUS per A.D.A. criteria. Potassium [Moles/Vol] 3.6 mmol/L 3.5-5.1 [facility] Sodium [Moles/Vol] 140 mmol/L 136-145 [facility] WBC (Bld) [#/Vol] 5.6 10*3/uL 4.4-11.0 [facility] Blood erythrocytes count (nu mber/volume)Ordered By: Evi Guevara on 06-02-2023 RBC (Bld) [#/Vol] 3.98 10*6/uL 4.2-5.4 [facility] Blood hemoglobin measurement (mass/volume)Ordered By: Evi Guevara on 06-02-2023 Hemoglobin (Bld) [Mass/Vol] 13.0 g/dL 12.0-15.0 [facility] Blood platelet mean volumeOr dered By: Evi Guevara on 06-02-2023 Platelet mean volume (Bld) [Entitic vol] 11.1 fL 6.2-12.0 [facility] Determination of erythrocyte mean corpuscular volume (MCV)Ordered By: Evi Guevara on 06-02-2023 MCV (RBC) [Entitic vol] 97.5 fL 81-99 [facility] Hematocrit Auto (Bld) [Volum e fraction]Ordered By: Evi Guevara on 06-02-2023 Hematocrit (Bld) [Volume fraction] 38.8 % 37-47 [facility] - Chemistry and C hemistry - challengeOrdered By: Evi Guevara on 06-02-2023 CO2 [Moles/Vol] 26.0 mmol/L 21.0-32.0 [facility] Urea nitrogen/Creatinine [Mass ratio] 16.7 mg/mg 10-20 [facility] - Hematology and Cell countsOrdered By: Evi Guevara on 06-02-2023 Erythrocyte distribution width (RBC) [Entitic vol] 49.2 fL 35.1-43.9 [facility] Erythrocyte distribution width (RBC) [Ratio] 13.7 % 11.6-14.6 [facility] MCH (RBC) [Entitic mass] 32.7 pg 27.0-32.0 [facility] MCHC Auto (RBC) [Mass/Vol]Or dered By: Evi Guevara on 06-02-2023 MCHC (RBC) [Mass/Vol] 33.5 g/dL 32-36 [facility] No Panel InformationOrdered By: Evi Guevara on 06-02-2023 Estimated GFR (MDRD) Amer 47 mL/min >60 [facility] Estimated GFR (MDRD) Non-Af Amer 39 mL/min >60 [facility] Platelets bldOrdered By: Mark Guevara on 06-02-2023 Platelets (Bld) [#/Vol] 224 10*3/uL 150-450 [facility] Serum or plasma calcium jeffrey urement (mass/volume)Ordered By: Evi Guevara on 06-02-2023 Calcium [Mass/Vol] 8.9 mg/dL 8.5-10.1 [facility] Serum or plasma creatinine m easurement (mass/volume)Ordered By: Evi Guevara on 06-02-2023 Creatinine [Mass/Vol] 1.38 mg/dL 0.55-1.02 [facility] Comment on above: The validity of the calculated GFR & GFRAA in patients over 70 years has not been determined. Clinical correlation is essential. Serum or plasma urea nitroge n measurement (mass/volume)Ordered By: Evi Guevara on 06-02-2023 Urea nitrogen [Mass/Vol] 23 mg/dL 7-18 [facility] Thin prep Papanicolaou smear with manual screeningOrdered By: Evi Guevara on 06-02-2023 Thin prep Papanicolaou smear with manual screening 4 5-15 [facility] Basophil percentageOrdered B y: Evi Guevara on 05-20-2023 Chloride [Moles/Vol] 111 mmol/L 98-107 [facility] Glucose [Mass/Vol] 121 mg/dL 74-106 [facility] Comment on above: Fasting Glucose resu lt from 100 to 125 mg/dL suggests IMPAIRED HOMEOSTASIS per A.D.A. criteria. Potassium [Moles/Vol] 4.0 mmol/L 3.5-5.1 [facility] Sodium [Moles/Vol] 144 mmol/L 136-145 [facility] WBC (Bld) [#/Vol] 6.4 10*3/uL 4.4-11.0 [facility] Blood erythrocytes count (nu mber/volume)Ordered By: Evi Guevara on 05-20-2023 RBC (Bld) [#/Vol] 4.40 10*6/uL 4.2-5.4 [facility] Blood hemoglobin measurement (mass/volume)Ordered By: Evi Guevara on 05-20-2023 Hemoglobin (Bld) [Mass/Vol] 14.2 g/dL 12.0-15.0 [facility] Blood platelet mean volumeOr dered By: Evi Guevara on 05-20-2023 Platelet mean volume (Bld) [Entitic vol] 11.2 fL 6.2-12.0 [facility] Determination of erythrocyte mean corpuscular volume (MCV)Ordered By: Evi Guevara on 05-20-2023 MCV (RBC) [Entitic vol] 98.0 fL 81-99 [facility] Hematocrit Auto (Bld) [Volum e fraction]Ordered By: Evi Guevara on 05-20-2023 Hematocrit (Bld) [Volume fraction] 43.1 % 37-47 [facility] - Chemistry and C hemistry - challengeOrdered By: Evi Guevara on 05-20-2023 CO2 [Moles/Vol] 26.0 mmol/L 21.0-32.0 [facility] Urea nitrogen/Creatinine [Mass ratio] 20.9 mg/mg 10-20 [facility] - Hematology and Cell countsOrdered By: Evi Guevara on 05-20-2023 Erythrocyte distribution width (RBC) [Entitic vol] 48.8 fL 35.1-43.9 [facility] Erythrocyte distribution width (RBC) [Ratio] 13.4 % 11.6-14.6 [facility] MCH (RBC) [Entitic mass] 32.3 pg 27.0-32.0 [facility] MCHC Auto (RBC) [Mass/Vol]Or dered By: Evi Guevara on 05-20-2023 MCHC (RBC) [Mass/Vol] 32.9 g/dL 32-36 [facility] No Panel InformationOrdered By: Evi Guevara on 05-20-2023 Estimated GFR (MDRD) Amer 44 mL/min >60 [facility] Comment on above: GFR Calc Estimated GFR (MDRD) Non-Af Amer 36 mL/min >60 [facility] Comment on above: Non- GFR Calc Platelets bldOrdered By: Mark Guevara on 05-20-2023 Platelets (Bld) [#/Vol] 226 10*3/uL 150-450 [facility] Serum or plasma calcium jeffrey urement (mass/volume)Ordered By: Evi Guevara on 05-20-2023 Calcium [Mass/Vol] 9.1 mg/dL 8.5-10.1 [facility] Serum or plasma creatinine m easurement (mass/volume)Ordered By: Evi Guevara on 05-20-2023 Creatinine [Mass/Vol] 1.48 mg/dL 0.55-1.02 [facility] Comment on above: The validity of the calculated GFR & GFRAA in patients over 70 years has not been determined. Clinical correlation is essential. Serum or plasma urea nitroge n measurement (mass/volume)Ordered By: Evi Guevara on 05-20-2023 Urea nitrogen [Mass/Vol] 31 mg/dL 7-18 [facility] Thin prep Papanicolaou smear with manual screeningOrdered By: Evi Guevara on 05-20-2023 Thin prep Papanicolaou smear with manual screening 7 5-15 [facility] Basophil percentageOrdered B y: Evi Guevara on 05-13-2023 Chloride [Moles/Vol] 108 mmol/L 98-107 [facility] Glucose [Mass/Vol] 127 mg/dL 74-106 [facility] Comment on above: Fasting Glucose resu lt greater than or equal to 126 mg/dL suggests DIABETES MELLITUS per A.D.A. criteria. Potassium [Moles/Vol] 3.7 mmol/L 3.5-5.1 [facility] Sodium [Moles/Vol] 141 mmol/L 136-145 [facility] Laboratory - Chemistry and C hemistry - challengeOrdered By: Evi Guevara on 05-13-2023 CO2 [Moles/Vol] 25.0 mmol/L 21.0-32.0 [facility] Urea nitrogen/Creatinine [Mass ratio] 24.0 mg/mg 10-20 [facility] No Panel InformationOrdered By: Evi Guevara on 05-13-2023 Estimated GFR (MDRD) Amer 43 mL/min >60 [facility] Comment on above: GFR Calc Estimated GFR (MDRD) Non-Af Amer 36 mL/min >60 [facility] Comment on above: Non- GFR Calc Serum or plasma calcium jeffrey urement (mass/volume)Ordered By: Evi Guevara on 05-13-2023 Calcium [Mass/Vol] 9.2 mg/dL 8.5-10.1 [facility] Serum or plasma creatinine m easurement (mass/volume)Ordered By: Evi Guevara on 05-13-2023 Creatinine [Mass/Vol] 1.50 mg/dL 0.55-1.02 [facility] Comment on above: The validity of the calculated GFR & GFRAA in patients over 70 years has not been determined. Clinical correlation is essential. Serum or plasma urea nitroge n measurement (mass/volume)Ordered By: Evi Guevara on 05-13-2023 Urea nitrogen [Mass/Vol] 36 mg/dL 7-18 [facility] Thin prep Papanicolaou smear with manual screeningOrdered By: Evi Guevara on 05-13-2023 Thin prep Papanicolaou smear with manual screening 8 5-15 [facility] Basophil percentageOrdered B y: Evi Guevara on 04-22-2023 Chloride [Moles/Vol] 110 mmol/L 98-107 [facility] Glucose [Mass/Vol] 145 mg/dL 74-106 [facility] Comment on above: Fasting Glucose resu lt greater than or equal to 126 mg/dL suggests DIABETES MELLITUS per A.D.A. criteria. Potassium [Moles/Vol] 3.8 mmol/L 3.5-5.1 [facility] Sodium [Moles/Vol] 141 mmol/L 136-145 [facility] WBC (Bld) [#/Vol] 6.3 10*3/uL 4.4-11.0 [facility] Blood erythrocytes count (nu mber/volume)Ordered By: Evi Guevara on 04-22-2023 RBC (Bld) [#/Vol] 3.84 10*6/uL 4.2-5.4 [facility] Blood hemoglobin measurement (mass/volume)Ordered By: Evi Guevara on 04-22-2023 Hemoglobin (Bld) [Mass/Vol] 12.7 g/dL 12.0-15.0 [facility] Blood platelet mean volumeOr dered By: Evi Guevara on 04-22-2023 Platelet mean volume (Bld) [Entitic vol] 11.2 fL 6.2-12.0 [facility] Determination of erythrocyte mean corpuscular volume (MCV)Ordered By: Evi Guevara on 04-22-2023 MCV (RBC) [Entitic vol] 99.7 fL 81-99 [facility] Hematocrit Auto (Bld) [Volum e fraction]Ordered By: Evi Guevara on 04-22-2023 Hematocrit (Bld) [Volume fraction] 38.3 % 37-47 [facility] - Chemistry and C hemistry - challengeOrdered By: Evi Guevara on 04-22-2023 CO2 [Moles/Vol] 26.0 mmol/L 21.0-32.0 [facility] Urea nitrogen/Creatinine [Mass ratio] 20.1 mg/mg 04-23 [facility] - Hematology and Cell countsOrdered By: Evi Guevara on 04-22-2023 Erythrocyte distribution width (RBC) [Entitic vol] 50.5 fL 35.1-43.9 [facility] Erythrocyte distribution width (RBC) [Ratio] 13.8 % 11.6-14.6 [facility] MCH (RBC) [Entitic mass] 33.1 pg 27.0-32.0 [facility] MCHC Auto (RBC) [Mass/Vol]Or dered By: Evi Guevara on 04-22-2023 MCHC (RBC) [Mass/Vol] 33.2 g/dL 32-36 [facility] No Panel InformationOrdered By: Evi Guevara on 04-22-2023 Estimated GFR (MDRD) Amer 49 mL/min >60 [facility] Comment on above: GFR Calc Estimated GFR (MDRD) Non-Af Amer 41 mL/min >60 [facility] Comment on above: Non- GFR Calc Platelets bldOrdered By: Mark Gueavra on 04-22-2023 Platelets (Bld) [#/Vol] 223 10*3/uL 150-450 [facility] Serum or plasma calcium jeffrey urement (mass/volume)Ordered By: Evi Guevara on 04-22-2023 Calcium [Mass/Vol] 9.0 mg/dL 8.5-10.1 [facility] Serum or plasma creatinine m easurement (mass/volume)Ordered By: Evi Guevara on 04-22-2023 Creatinine [Mass/Vol] 1.34 mg/dL 0.55-1.02 [facility] Comment on above: The validity of the calculated GFR & GFRAA in patients over 70 years has not been determined. Clinical correlation is essential. Serum or plasma urea nitroge n measurement (mass/volume)Ordered By: Evi Guevara on 04-22-2023 Urea nitrogen [Mass/Vol] 27 mg/dL - [facility] Thin prep Papanicolaou smear with manual screeningOrdered By: Evi Guevara on 04-22-2023 Thin prep Papanicolaou smear with manual screening 5 5-15 [facility] Basophil percentageOrdered B y: Evi Guevara on 04-21-2023 Chloride [Moles/Vol] 107 mmol/L 98-107 [facility] Glucose [Mass/Vol] 133 mg/dL 74-106 [facility] Comment on above: Fasting Glucose resu lt greater than or equal to 126 mg/dL suggests DIABETES MELLITUS per A.D.A. criteria. Potassium [Moles/Vol] 3.9 mmol/L 3.5-5.1 [facility] Comment on above: Moderate Hemolysis, Result may be falsely increased. Sodium [Moles/Vol] 139 mmol/L 136-145 [facility] WBC (Bld) [#/Vol] 6.9 10*3/uL 4.4-11.0 [facility] Blood erythrocytes count (nu mber/volume)Ordered By: Evi Guevara on 04-21-2023 RBC (Bld) [#/Vol] 4.21 10*6/uL 4.2-5.4 [facility] Blood hemoglobin measurement (mass/volume)Ordered By: Evi Guevara on 04-21-2023 Hemoglobin (Bld) [Mass/Vol] 13.9 g/dL 12.0-15.0 [facility] Blood platelet mean volumeOr dered By: Evi Guevara on 04-21-2023 Platelet mean volume (Bld) [Entitic vol] 11.3 fL 6.2-12.0 [facility] Determination of erythrocyte mean corpuscular volume (MCV)Ordered By: Evi Guevara on 04-21-2023 MCV (RBC) [Entitic vol] 99.0 fL 81-99 [facility] Hematocrit Auto (Bld) [Volum e fraction]Ordered By: Evi Guevara on 04-21-2023 Hematocrit (Bld) [Volume fraction] 41.7 % 37-47 [facility] - Chemistry and C hemistry - challengeOrdered By: Evi Guevara on 04-21-2023 CO2 [Moles/Vol] 25.0 mmol/L 21.0-32.0 [facility] Urea nitrogen/Creatinine [Mass ratio] 19.1 mg/mg 10- [facility] - Hematology and Cell countsOrdered By: Evi Guevara on 04-21-2023 Erythrocyte distribution width (RBC) [Entitic vol] 49.3 fL 35.1-43.9 [facility] Erythrocyte distribution width (RBC) [Ratio] 13.6 % 11.6-14.6 [facility] MCH (RBC) [Entitic mass] 33.0 pg 27.0-32.0 [facility] MCHC Auto (RBC) [Mass/Vol]Or dered By: Evi Guevara on 04-21-2023 MCHC (RBC) [Mass/Vol] 33.3 g/dL [facility] No Panel InformationOrdered By: Evi Guevara on 04-21-2023 Estimated GFR (MDRD) Amer 48 mL/min >60 [facility] Comment on above: GFR Calc Estimated GFR (MDRD) Non-Af Amer 40 mL/min >60 [facility] Comment on above: Non- GFR Calc Platelets bldOrdered By: Mark Guevara on 04-21-2023 Platelets (Bld) [#/Vol] 224 10*3/uL 150-450 [facility] Serum or plasma calcium jeffrey urement (mass/volume)Ordered By: Evi Guevara on 04-21-2023 Calcium [Mass/Vol] 9.5 mg/dL 8.5-10.1 [facility] Serum or plasma creatinine m easurement (mass/volume)Ordered By: Evi Guevara on 04-21-2023 Creatinine [Mass/Vol] 1.36 mg/dL 0.55-1.02 [facility] Comment on above: The validity of the calculated GFR & GFRAA in patients over 70 years has not been determined. Clinical correlation is essential. Serum or plasma urea nitroge n measurement (mass/volume)Ordered By: Evi Guevara on 04-21-2023 Urea nitrogen [Mass/Vol] 26 mg/dL 01-19 [facility] Thin prep Papanicolaou smear with manual screeningOrdered By: Evi Guevara on 04-21-2023 Thin prep Papanicolaou smear with manual screening 7 5-15 [facility] Basophil percentageOrdered B y: Evi Guevara on 04-12-2023 Chloride [Moles/Vol] 108 mmol/L 98-107 [facility] Glucose [Mass/Vol] 124 mg/dL 74-106 [facility] Comment on above: Fasting Glucose resu lt from 100 to 125 mg/dL suggests IMPAIRED HOMEOSTASIS per A.D.A. criteria. Potassium [Moles/Vol] 3.9 mmol/L 3.5-5.1 [facility] Sodium [Moles/Vol] 141 mmol/L 136-145 [facility] Laboratory - Chemistry and C hemistry - challengeOrdered By: Evi Guevara on 04-12-2023 CO2 [Moles/Vol] 25.0 mmol/L 21.0-32.0 [facility] Urea nitrogen/Creatinine [Mass ratio] 14.8 mg/mg 10- [facility] No Panel InformationOrdered By: Evi Guevara on 04-12-2023 Estimated GFR (MDRD) Amer 36 mL/min >60 [facility] Comment on above: GFR Calc Estimated GFR (MDRD) Non-Af Amer 30 mL/min >60 [facility] Comment on above: Non- GFR Calc Serum or plasma calcium jeffrey urement (mass/volume)Ordered By: Evi Guevara on 04-12-2023 Calcium [Mass/Vol] 9.4 mg/dL 8.5-10.1 [facility] Serum or plasma creatinine m easurement (mass/volume)Ordered By: Evi Guevara on 04-12-2023 Creatinine [Mass/Vol] 1.76 mg/dL 0.55-1.02 [facility] Comment on above: The validity of the calculated GFR & GFRAA in patients over 70 years has not been determined. Clinical correlation is essential. Serum or plasma urea nitroge n measurement (mass/volume)Ordered By: Evi Guevara on 04-12-2023 Urea nitrogen [Mass/Vol] 26 mg/dL 7-18 [facility] Thin prep Papanicolaou smear with manual screeningOrdered By: Evi Guevara on 04-12-2023 Thin prep Papanicolaou smear with manual screening 8 -15 [facility] Basophil percentageOrdered B y: Evi Guevara on 03-25-2023 Basophil percentage 25-50 SEEN /hpf 0-5 [facility] Cholesterol [Mass/Vol] 106 mg/dL <200 [facility] Comment on above: <200 mg/dL Desirable 200-240 mg/dL Borderline >240 mg/dL High Risk Triglyceride [Mass/Vol] 85 mg/dL <199 [facility] Comment on above: The drugs N-Acetylcy steine and Metamizole may falsely depress this assay.Serum Triglycerides Reference Interval Normal <150 mg/dL Borderline high 150 - 199 mg/dL High 200 - 499 mg/dL Very High > or = 500 mg/dL WBC (Bld) [#/Vol] 6.3 10*3/uL 4.4-11.0 [facility] Bilirubin Test strip Ql (U)O rdered By: Evi Guevara on 03-25-2023 Bilirubin Ql (U) Negative Negative [facility] Blood erythrocytes count (nu mber/volume)Ordered By: Evi Guevara on 03-25-2023 RBC (Bld) [#/Vol] 3.74 10*6/uL 4.2-5.4 [facility] Blood hemoglobin measurement (mass/volume)Ordered By: Evi Guevara on 03-25-2023 Hemoglobin (Bld) [Mass/Vol] 12.8 g/dL 12.0-15.0 [facility] Blood platelet mean volumeOr dered By: Evi Guevara on 03-25-2023 Platelet mean volume (Bld) [Entitic vol] 11.2 fL 6.2-12.0 [facility] Culture, urineOrdered By: Ari Licea on 03-25-2023 Bacteria identified Cx Nom (U) ESBL Escherichia coli [facility] Determination of erythrocyte mean corpuscular volume (MCV)Ordered By: Evi Guevara on 03-25-2023 MCV (RBC) [Entitic vol] 102.4 fL 81-99 [facility] Hematocrit Auto (Bld) [Volum e fraction]Ordered By: Evi Guevara on 03-25-2023 Hematocrit (Bld) [Volume fraction] 38.3 % 37-47 [facility] Ketones Test strip Ql (U)Ord ered By: Evi Guevara on 03-25-2023 Ketones Ql (U) Negative Negative [facility] - Hematology and Cell countsOrdered By: Evi Guevara on 03-25-2023 Erythrocyte distribution width (RBC) [Entitic vol] 51.6 fL 35.1-43.9 [facility] Erythrocyte distribution width (RBC) [Ratio] 13.7 % 11.6-14.6 [facility] MCH (RBC) [Entitic mass] 34.2 pg 27.0-32.0 [facility] MCHC Auto (RBC) [Mass/Vol]Or dered By: Evi Guevara on 03-25-2023 MCHC (RBC) [Mass/Vol] 33.4 g/dL 32-36 [facility] Mucus LM Ql (Urine sed)Order ed By: Evi Guevara on 03-25-2023 Mucus Ql (Urine sed) 0 SEEN /hpf [facility] Nitrite Test strip Ql (U)Ord ered By: Evi Guevara on 03-25-2023 Nitrite Ql (U) Negative Negative [facility] No Panel InformationOrdered By: Evi Guevara on 03-25-2023 Urine Transitional Epithelial Cells 0-5 SEEN /hpf 0-5 [facility] Thyroid Stimulating Hormone (TSH) 2.32 uIU/mL 0.358-3.74 [facility] Vitamin D 25-Hydroxy 71.1 ng/mL [facility] Comment on above: Vitamin D 25(OH) Sta tus Range Deficiency <20 ng/mL (50nmol/L) Insufficiency 20 - 30 ng/mL (50 - 75 nmol/L) Sufficiency 30 - 100 ng/mL (75 - 250 nmol/L) Toxicity >100 ng/mL (>250 nmol/L) Platelets bldOrdered By: Mark Guevara on 03-25-2023 Platelets (Bld) [#/Vol] 211 10*3/uL 150-450 [facility] Protein Test strip Ql (U)Ord ered By: Evi Guevara on 03-25-2023 Protein Ql (U) Negative Negative [facility] Serum or plasma cholesterol in HDL measurement (mass/volume)Ordered By: Evi Guevara on 03-25-2023 Cholesterol in HDL [Mass/Vol] 40 mg/dL >40 [facility] Comment on above: The drugs N-Acetylcy steine and Metamizole may falsely depress this assay. Reference Range HDL <40 mg/dL Low HDL Cholesterol HDL >or= 60 mg/dL High HDL Cholesterol Serum or plasma cholesterol in VLDL measurement (mass/volume)Ordered By: Evi Guevara on 03-25-2023 Cholesterol in VLDL [Mass/Vol] 17 mg/dL 5-40 [facility] Serum or plasma low density lipoprotein (LDL) cholesterol measurement (mass/volume)Ordered By: Evi Guevara on 03-25-2023 Cholesterol in LDL [Mass/Vol] 49 mg/dL 0-130 [facility] Squamous epithelial cells de tection in urine sediment by light microscopyOrdered By: Evi Guevara on 03-25-2023 Epithelial cells.squamous LM Ql (Urine sed) 5-10 SEEN /hpf 5-10 [facility] Urine blood detectionOrdered By: Evi Guevara on 03-25-2023 RBC Ql (U) 10 /ul Negative [facility] RBC Ql (U) 0-5 SEEN /hpf 0-5 [facility] Urine clarityOrdered By: Mark Guevara on 03-25-2023 Clarity (U) Sl. Cloudy Clear [facility] Urine color determinationOrd ered By: Evi Guevara on 03-25-2023 Color (U) Yellow Yellow [facility] Urine glucose detectionOrder ed By: Evi Guevara on 03-25-2023 Glucose Ql (U) Normal mg/dl Normal [facility] Urine leukocyte esterase det ection by dipstickOrdered By: Evi Guevara on 03-25-2023 Leukocyte esterase Test strip Ql (U) 500 /ul Negative [facility] Urine pHOrdered By: Evi gillette on 03-25-2023 pH (U) 6.0 [pH] 5.0 - 8.0 [facility] Urine sediment bacteria coun t by microscopy (number/high power field)Ordered By: Evi Guevara on 03-25-2023 Bacteria LM.HPF (Urine sed) [#/Area] 2 /[HPF] None Seen [facility] Urine specific gravity measu rementOrdered By: Evi Guevara on 03-25-2023 Specific gravity (U) [Rel density] 1.015 1.002-1.030 [facility] Urobilinogen Auto test strip Ql (U)Ordered By: Evi Guevara on 03-25-2023 Urobilinogen Ql (U) 4 mg/dl Normal [facility] Whole blood hemoglobin A1c/t otal hemoglobin ratio (mass fraction)Ordered By: Evi Guevara on 03-25-2023 HbA1c (Bld) [Mass fraction] 5.4 % 3.8-5.6 [facility] Comment on above: Normal < 5.7 % Predi abetic 5.7 - 6.4 % Diabetic >or= 6.5 % Please note range changes. Basophil percentageOrdered B y: Evi Guevara on 03-23-2023 Cholesterol [Mass/Vol] 126 mg/dL <200 [facility] Comment on above: <200 mg/dL Desirable 200-240 mg/dL Borderline >240 mg/dL High Risk Triglyceride [Mass/Vol] 92 mg/dL <199 [facility] Comment on above: The drugs N-Acetylcy steine and Metamizole may falsely depress this assay.Serum Triglycerides Reference Interval Normal <150 mg/dL Borderline high 150 - 199 mg/dL High 200 - 499 mg/dL Very High > or = 500 mg/dL WBC (Bld) [#/Vol] 6.5 10*3/uL 4.4-11.0 [facility] Blood erythrocytes count (nu mber/volume)Ordered By: Evi Guevara on 03-23-2023 RBC (Bld) [#/Vol] 3.94 10*6/uL 4.2-5.4 [facility] Blood hemoglobin measurement (mass/volume)Ordered By: Evi Guevara on 03-23-2023 Hemoglobin (Bld) [Mass/Vol] 13.1 g/dL 12.0-15.0 [facility] Blood platelet mean volumeOr dered By: Evi Guevara on 03-23-2023 Platelet mean volume (Bld) [Entitic vol] 10.8 fL 6.2-12.0 [facility] Determination of erythrocyte mean corpuscular volume (MCV)Ordered By: Evi Guevara on 03-23-2023 MCV (RBC) [Entitic vol] 100.8 fL 81-99 [facility] Hematocrit Auto (Bld) [Volum e fraction]Ordered By: Evi Guevara on 03-23-2023 Hematocrit (Bld) [Volume fraction] 39.7 % 37-47 [facility] - Hematology and Cell countsOrdered By: Evi Guevara on 03-23-2023 Erythrocyte distribution width (RBC) [Entitic vol] 49.6 fL 35.1-43.9 [facility] Erythrocyte distribution width (RBC) [Ratio] 13.4 % 11.6-14.6 [facility] MCH (RBC) [Entitic mass] 33.2 pg 27.0-32.0 [facility] MCHC Auto (RBC) [Mass/Vol]Or dered By: Evi Guevara on 03-23-2023 MCHC (RBC) [Mass/Vol] 33.0 g/dL 32-36 [facility] No Panel InformationOrdered By: Evi Guevara on 03-23-2023 Thyroid Stimulating Hormone (TSH) 2.27 uIU/mL 0.358-3.74 [facility] Vitamin D 25-Hydroxy 71.6 ng/mL [facility] Comment on above: Vitamin D 25(OH) Sta tus Range Deficiency <20 ng/mL (50nmol/L) Insufficiency 20 - 30 ng/mL (50 - 75 nmol/L) Sufficiency 30 - 100 ng/mL (75 - 250 nmol/L) Toxicity >100 ng/mL (>250 nmol/L) Platelets bldOrdered By: Mark Guevara on 03-23-2023 Platelets (Bld) [#/Vol] 231 10*3/uL 150-450 [facility] Serum or plasma cholesterol in HDL measurement (mass/volume)Ordered By: Evi Guevara on 03-23-2023 Cholesterol in HDL [Mass/Vol] 48 mg/dL >40 [facility] Comment on above: The drugs N-Acetylcy steine and Metamizole may falsely depress this assay. Reference Range HDL <40 mg/dL Low HDL Cholesterol HDL >or= 60 mg/dL High HDL Cholesterol Serum or plasma cholesterol in VLDL measurement (mass/volume)Ordered By: Evi Guevara on 03-23-2023 Cholesterol in VLDL [Mass/Vol] 18 mg/dL 5-40 [facility] Serum or plasma low density lipoprotein (LDL) cholesterol measurement (mass/volume)Ordered By: Evi Guevara on 03-23-2023 Cholesterol in LDL [Mass/Vol] 60 mg/dL 0-130 [facility] Whole blood hemoglobin A1c/t otal hemoglobin ratio (mass fraction)Ordered By: Evi Guevara on 03-23-2023 HbA1c (Bld) [Mass fraction] 5.6 % 3.8-5.6 [facility] Comment on above: Normal < 5.7 % Predi abetic 5.7 - 6.4 % Diabetic >or= 6.5 % Please note range changes. Basophil percentageOrdered B y: Evi Guevara on 03-15-2023 Bilirubin [Mass/Vol] 0.50 mg/dL 0.20-1.00 [facility] Comment on above: For patients on eltr ombopag therapy, use of Dimension [place] TBIL is not recommended. Chloride [Moles/Vol] 108 mmol/L 98-107 [facility] Cholesterol [Mass/Vol] 102 mg/dL <200 [facility] Comment on above: <200 mg/dL Desirable 200-240 mg/dL Borderline >240 mg/dL High Risk Glucose [Mass/Vol] 113 mg/dL 74-106 [facility] Comment on above: Fasting Glucose resu lt from 100 to 125 mg/dL suggests IMPAIRED HOMEOSTASIS per A.D.A. criteria. Potassium [Moles/Vol] 4.1 mmol/L 3.5-5.1 [facility] Protein [Mass/Vol] 6.4 g/dL 6.4-8.2 [facility] Sodium [Moles/Vol] 140 mmol/L 136-145 [facility] Triglyceride [Mass/Vol] 82 mg/dL <199 [facility] Comment on above: The drugs N-Acetylcy steine and Metamizole may falsely depress this assay.Serum Triglycerides Reference Interval Normal <150 mg/dL Borderline high 150 - 199 mg/dL High 200 - 499 mg/dL Very High > or = 500 mg/dL WBC (Bld) [#/Vol] 6.9 10*3/uL 4.4-11.0 [facility] Blood erythrocytes count (nu mber/volume)Ordered By: Evi Guevara on 09-11-2023 RBC (Bld) [#/Vol] 3.94 10*6/uL 4.2-5.4 [facility] Blood hemoglobin measurement (mass/volume)Ordered By: Evi Guevara on 03-15-2023 Hemoglobin (Bld) [Mass/Vol] 13.2 g/dL 12.0-15.0 [facility] Blood platelet mean volumeOr dered By: Evi Guevara on 03-15-2023 Platelet mean volume (Bld) [Entitic vol] 11.1 fL 6.2-12.0 [facility] Determination of erythrocyte mean corpuscular volume (MCV)Ordered By: Evi Guevara on 03-15-2023 MCV (RBC) [Entitic vol] 98.0 fL 81-99 [facility] Hematocrit Auto (Bld) [Volum e fraction]Ordered By: Evi Guevara on 03-15-2023 Hematocrit (Bld) [Volume fraction] 38.6 % 37-47 [facility] - Chemistry and C hemistry - challengeOrdered By: Evi Guevara on 03-15-2023 ALP [Catalytic activity/Vol] 104 U/L 45-117 [facility] ALT [Catalytic activity/Vol] 19 U/L 13-56 [facility] CO2 [Moles/Vol] 25.0 mmol/L 21.0-32.0 [facility] Globulin (S) [Mass/Vol] 3.2 g/dL 2.2-4.2 [facility] Urea nitrogen/Creatinine [Mass ratio] 20.0 mg/mg 10-20 [facility] - Hematology and Cell countsOrdered By: Evi Guevara on 03-15-2023 Erythrocyte distribution width (RBC) [Entitic vol] 47.0 fL 35.1-43.9 [facility] Erythrocyte distribution width (RBC) [Ratio] 13.2 % 11.6-14.6 [facility] MCH (RBC) [Entitic mass] 33.5 pg 27.0-32.0 [facility] MCHC Auto (RBC) [Mass/Vol]Or dered By: Evi Guevara on 03-15-2023 MCHC (RBC) [Mass/Vol] 34.2 g/dL 32-36 [facility] No Panel InformationOrdered By: Evi Guevara on 03-15-2023 Estimated GFR (MDRD) Amer 51 mL/min >60 [facility] Comment on above: GFR Calc Estimated GFR (MDRD) Non-Af Amer 42 mL/min >60 [facility] Comment on above: Non- GFR Calc Thyroid Stimulating Hormone (TSH) 2.96 uIU/mL 0.358-3.74 [facility] Vitamin D 25-Hydroxy 76.0 ng/mL [facility] Comment on above: Vitamin D 25(OH) Sta tus Range Deficiency <20 ng/mL (50nmol/L) Insufficiency 20 - 30 ng/mL (50 - 75 nmol/L) Sufficiency 30 - 100 ng/mL (75 - 250 nmol/L) Toxicity >100 ng/mL (>250 nmol/L) Platelets bldOrdered By: Mark Guevara on 03-15-2023 Platelets (Bld) [#/Vol] 205 10*3/uL 150-450 [facility] Serum or plasma albumin jeffrey urement (mass/volume)Ordered By: Evi Guevara on 03-15-2023 Albumin [Mass/Vol] 3.2 g/dL 3.2-5.0 [facility] Serum or plasma albumin/glob ulin mass ratioOrdered By: Evi Guevara on 03-15-2023 Albumin/Globulin [Mass ratio] 1.0 {ratio} 0.9-2.4 [facility] Serum or plasma calcium jeffrey urement (mass/volume)Ordered By: Evi Guevara on 03-15-2023 Calcium [Mass/Vol] 9.3 mg/dL 8.5-10.1 [facility] Serum or plasma cholesterol in HDL measurement (mass/volume)Ordered By: Evi Guevara on 03-15-2023 Cholesterol in HDL [Mass/Vol] 45 mg/dL >40 [facility] Comment on above: The drugs N-Acetylcy steine and Metamizole may falsely depress this assay. Reference Range HDL <40 mg/dL Low HDL Cholesterol HDL >or= 60 mg/dL High HDL Cholesterol Serum or plasma cholesterol in VLDL measurement (mass/volume)Ordered By: Evi Guevara on 03-15-2023 Cholesterol in VLDL [Mass/Vol] 16 mg/dL 5-40 [facility] Serum or plasma creatinine m easurement (mass/volume)Ordered By: Evi Guevara on 03-15-2023 Creatinine [Mass/Vol] 1.30 mg/dL 0.55-1.02 [facility] Comment on above: The validity of the calculated GFR & GFRAA in patients over 70 years has not been determined. Clinical correlation is essential. Serum or plasma low density lipoprotein (LDL) cholesterol measurement (mass/volume)Ordered By: Evi Guevara on 03-15-2023 Cholesterol in LDL [Mass/Vol] 41 mg/dL 0-130 [facility] Serum or plasma urea nitroge n measurement (mass/volume)Ordered By: Evi Guevara on 03-15-2023 Urea nitrogen [Mass/Vol] 26 mg/dL 7-18 [facility] Thin prep Papanicolaou smear with manual screeningOrdered By: Evi Guevara on 03-15-2023 Thin prep Papanicolaou smear with manual screening 18 U/L 15-37 [facility] Thin prep Papanicolaou smear with manual screening 7 5-15 [facility] Whole blood hemoglobin A1c/t otal hemoglobin ratio (mass fraction)Ordered By: Evi Guevara on 03-15-2023 HbA1c (Bld) [Mass fraction] 5.5 % 3.8-5.6 [facility] Comment on above: Normal < 5.7 % Predi abetic 5.7 - 6.4 % Diabetic >or= 6.5 % Please note range changes. BASIC METABOLIC PANELon Anion gap [Moles/Vol] 11 mmol/L Normal 10 - 20 [facility] Comment on above: Performed By: #### B MP #### [facility] [address] [place] [address] Calcium [Mass/Vol] 9.2 mg/dL Normal 8.6 - 10.3 [facility] Comment on above: Performed By: #### B MP #### [facility] [address] [place] [address] Chloride [Moles/Vol] 106 mmol/L Normal 98 - 107 [facility] Comment on above: Performed By: #### B MP #### [facility] [address] [place] [address] Creatinine [Mass/Vol] 1.33 mg/dL High 0.50 - 1.05 [facility] Comment on above: Performed By: #### B MP #### [address] [address] GFR/1.73 sq M.predicted among non-blacks MDRD (S/P/Bld) [Vol rate/Area] 41 mL/min/{1.73_m2} Abnormal >90 [facility] Comment on above: Result Comment: CALC ULATIONS OF ESTIMATED GFR ARE PERFORMED USING THE 2020 CKD-EPI STUDY REFIT EQUATION WITHOUT THE RACE VARIABLE FOR THE IDMS-TRACEABLE CREATININE METHODS. https://jasn.asnjournals.org/content/early//ASN.2020 053069 Performed By: #### B MP #### [address] [address] Glucose [Mass/Vol] 122 mg/dL High 74 - 99 [facility] Comment on above: Performed By: #### B MP #### [address] [address] HCO3 (Bld) [Moles/Vol] 28 mmol/L Normal 21 - 32 [facility] Comment on above: Performed By: #### B MP #### [address] [address] Potassium [Moles/Vol] 4.1 mmol/L Normal 3.5 - 5.3 [facility] Comment on above: Performed By: #### B MP #### [address] [address] Sodium [Moles/Vol] 141 mmol/L Normal 136 - 145 [facility] Comment on above: Performed By: #### B MP #### [address] [address] Urea nitrogen [Mass/Vol] 31 mg/dL High 6 - 23 [facility] Comment on above: Performed By: #### B MP #### [address] [place] [address] APTTon 02-19-2023 APTT Canceled Normal [facility] Comment on above: Order Comment: TEST APTT WAS CANCELLED, 02/19/2023 08:08 Test cancelled per Katy Blum. Result Comment: Note new reference range as of 12/22/2022 at 10:00am. Performed By: #### B MP #### [address] [place] [address] CBCon 02-19-2023 Erythrocyte distribution width (RBC) [Ratio] 13.2 % Normal 11.5 - 14.5 [facility] Comment on above: Performed By: #### C BC #### [address] [place] [address] Hematocrit (Bld) [Volume fraction] 35.2 % Low 36.0 - 46.0 [facility] Comment on above: Performed By: #### C BC #### [address] [place] [address] Hemoglobin (Bld) [Mass/Vol] 12.0 g/dL Normal 12.0 - 16.0 [facility] Comment on above: Performed By: #### C BC #### [address] [place] [address] MCHC (RBC) [Mass/Vol] 34.1 g/dL Normal 32.0 - 36.0 [facility] Comment on above: Performed By: #### C BC #### [address] [place] [address] MCV (RBC) [Entitic vol] 98 fL Normal 80 - [address] [facility] Comment on above: Performed By: #### C BC #### [address] [place] [address] NUCLEATED RBC 0.0 /100 WBC Normal 0.0 - 0.0 [facility] Comment on above: Performed By: #### C BC #### [address] [place] [address] Platelets (Bld) [#/Vol] 221 10*3/uL Normal 150 - 450 [facility] Comment on above: Performed By: #### C BC #### [address] [place] [address] RBC 3.58 x10E12/L Low 4.00 - 5.20 [facility] Comment on above: Performed By: #### C BC #### [address] [address] WBC (Bld) [#/Vol] 6.9 10*3/uL Normal 4.4 - 11.3 [facility] Comment on above: Performed By: #### C BC #### [address] [place] [address] COMPREHENSIVE PANELon 2022 Albumin [Mass/Vol] 3.4 g/dL Normal 3.4 - 5.0 [facility] Comment on above: Performed By: #### B MP #### [address] [address] ALP [Catalytic activity/Vol] 91 U/L Normal 33 - 136 [facility] Comment on above: Performed By: #### B MP #### [address] [address] ALT [Catalytic activity/Vol] 12 U/L Normal 7 - 45 [facility] Comment on above: Result Comment: Adela ents treated with Sulfasalazine may generate falsely decreased results for ALT. Performed By: #### B MP #### [address] [place] [address] Anion gap [Moles/Vol] 12 mmol/L Normal 10 - 20 [facility] Comment on above: Performed By: #### B MP #### [address] [address] AST [Catalytic activity/Vol] 14 U/L Normal 9 - 39 [facility] Comment on above: Performed By: #### B MP #### [address] [place] [address] Bilirubin [Mass/Vol] 0.6 mg/dL Normal 0.0 - 1.2 [facility] Comment on above: Performed By: #### B MP #### [address] [place] [address] Calcium [Mass/Vol] 9.0 mg/dL Normal 8.6 - 10.3 [facility] Comment on above: Performed By: #### B MP #### [address] [place] [address] Chloride [Moles/Vol] 104 mmol/L Normal 98 - 107 [facility] Comment on above: Performed By: #### B MP #### [address] [place] [address] Creatinine [Mass/Vol] 1.30 mg/dL High 0.50 - 1.05 [facility] Comment on above: Performed By: #### B MP #### [address] [place] [address] GFR/1.73 sq M.predicted among non-blacks MDRD (S/P/Bld) [Vol rate/Area] 42 mL/min/{1.73_m2} Abnormal >90 [facility] Comment on above: Result Comment: CALC ULATIONS OF ESTIMATED GFR ARE PERFORMED USING THE 2020 CKD-EPI STUDY REFIT EQUATION WITHOUT THE RACE VARIABLE FOR THE IDMS-TRACEABLE CREATININE METHODS. https://jasn.asnjournals.org/content/early/ASN.2020 697221 Performed By: #### B MP #### [address] [place] [address] Glucose [Mass/Vol] 123 mg/dL High 74 - 99 [facility] Comment on above: Performed By: #### B MP #### [address] [place] [address] HCO3 (Bld) [Moles/Vol] 27 mmol/L Normal 21 - 32 [facility] Comment on above: Performed By: #### B MP #### [address] [place] [address] Potassium [Moles/Vol] 3.9 mmol/L Normal 3.5 - 5.3 [facility] Comment on above: Performed By: #### B MP #### [address] [place] [address] Protein [Mass/Vol] 5.6 g/dL Low 6.4 - 8.2 [facility] Comment on above: Performed By: #### B MP #### [address] [place] [address] Sodium [Moles/Vol] 139 mmol/L Normal 136 - 145 [facility] Comment on above: Performed By: #### B MP #### [address] [place] [address] Urea nitrogen [Mass/Vol] 34 mg/dL High 6 - 23 [facility] Comment on above: Performed By: #### B MP #### [address] [place] [address] PT/INRon 02-19-2023 PT Coag (PPP) [Time] 11.4 s Normal 9.8 - 12.8 [facility] Comment on above: Result Comment: Note new reference range as of 12/22/2022 at 10:00am. Performed By: #### B MP #### [address] [address] PT, INR 1.0 Normal 0.9 - 1.1 [facility] Comment on above: Performed By: #### B MP #### [address] [place] [address] BASIC METABOLIC PANELon Anion gap [Moles/Vol] 12 mmol/L Normal 10 - 20 [facility] Comment on above: Performed By: #### B MP #### [address] [place] [address] Calcium [Mass/Vol] 9.1 mg/dL Normal 8.6 - 10.3 [facility] Comment on above: Performed By: #### B MP #### [address] [address] Chloride [Moles/Vol] 104 mmol/L Normal 98 - 107 [facility] Comment on above: Performed By: #### B MP #### [address] [place] [address] Creatinine [Mass/Vol] 1.90 mg/dL High 0.50 - 1.05 [facility] Comment on above: Performed By: #### B MP #### [address] [address] GFR/1.73 sq M.predicted among non-blacks MDRD (S/P/Bld) [Vol rate/Area] 27 mL/min/{1.73_m2} Abnormal >90 [facility] Comment on above: Result Comment: CALC ULATIONS OF ESTIMATED GFR ARE PERFORMED USING THE 2020 CKD-EPI STUDY REFIT EQUATION WITHOUT THE RACE VARIABLE FOR THE IDMS-TRACEABLE CREATININE METHODS. https://jasn.asnjournals.org/content/early/ASN.2020 841876 Performed By: #### B MP #### [facility] [address] [place] [address], [place] [address] Glucose [Mass/Vol] 112 mg/dL High 74 - 99 [facility] Comment on above: Performed By: #### B MP #### [address] [place] [address] HCO3 (Bld) [Moles/Vol] 25 mmol/L Normal 21 - 32 [facility] Comment on above: Performed By: #### B MP #### [address] [place] [address] Potassium [Moles/Vol] 4.1 mmol/L Normal 3.5 - 5.3 [facility] Comment on above: Performed By: #### B MP #### [address] [place] [address] Sodium [Moles/Vol] 137 mmol/L Normal 136 - 145 [facility] Comment on above: Performed By: #### B MP #### [address] [place] [address] Urea nitrogen [Mass/Vol] 45 mg/dL High 6 - 23 [facility] Comment on above: Performed By: #### B MP #### [address] [place] [address] BASIC METABOLIC PANELon 07-0 Anion gap [Moles/Vol] 12 mmol/L Normal 10 - 20 [facility] Comment on above: Performed By: #### B MP #### [address] [place] [address] Calcium [Mass/Vol] 9.2 mg/dL Normal 8.6 - 10.3 [facility] Comment on above: Performed By: #### B MP #### [place] [address] [place] [address] Chloride [Moles/Vol] 103 mmol/L Normal 98 - 107 [facility] Comment on above: Performed By: #### B MP #### [facility] [address] [place] [address] [place] [address] Creatinine [Mass/Vol] 1.37 mg/dL High 0.50 - 1.05 [facility] Comment on above: Performed By: #### B MP #### [address] [address] GFR/1.73 sq M.predicted among non-blacks MDRD (S/P/Bld) [Vol rate/Area] 40 mL/min/{1.73_m2} Abnormal >90 [facility] Comment on above: Result Comment: CALC ULATIONS OF ESTIMATED GFR ARE PERFORMED USING THE 2020 CKD-EPI STUDY REFIT EQUATION WITHOUT THE RACE VARIABLE FOR THE IDMS-TRACEABLE CREATININE METHODS. https://jasn.asnjournals.org/content/early/ASN.2020 004147 Performed By: #### B MP #### [address] [address] Glucose [Mass/Vol] 115 mg/dL High 74 - 99 [facility] Comment on above: Performed By: #### B MP #### [address] [address] HCO3 (Bld) [Moles/Vol] 27 mmol/L Normal 21 - 32 [facility] Comment on above: Performed By: #### B MP #### [address] [address] Potassium [Moles/Vol] 3.9 mmol/L Normal 3.5 - 5.3 [facility] Comment on above: Performed By: #### B MP #### [address] [place] [address] Sodium [Moles/Vol] 138 mmol/L Normal 136 - 145 [facility] Comment on above: Performed By: #### B MP #### [address] [address] Urea nitrogen [Mass/Vol] 22 mg/dL Normal 6 - 23 [facility] Comment on above: Performed By: #### B MP #### [facility] [address] [place] [address] BASIC METABOLIC PANELon 06-0 -2022 Anion gap [Moles/Vol] 12 mmol/L Normal 10 - 20 [facility] Comment on above: Performed By: #### B MP #### [address] [address] Calcium [Mass/Vol] 9.4 mg/dL Normal 8.6 - 10.3 [facility] Comment on above: Performed By: #### B MP #### [address] [address] Chloride [Moles/Vol] 107 mmol/L Normal 98 - 107 [facility] Comment on above: Performed By: #### B MP #### [address] [address] Creatinine [Mass/Vol] 1.27 mg/dL High 0.50 - 1.05 [facility] Comment on above: Performed By: #### B MP #### [address] [address] GFR/1.73 sq M.predicted among non-blacks MDRD (S/P/Bld) [Vol rate/Area] 44 mL/min/{1.73_m2} Abnormal >90 [facility] Comment on above: Result Comment: CALC ULATIONS OF ESTIMATED GFR ARE PERFORMED USING THE 2020 CKD-EPI STUDY REFIT EQUATION WITHOUT THE RACE VARIABLE FOR THE IDMS-TRACEABLE CREATININE METHODS. https://jasn.asnjournals.org/content/early//ASN.2020 715662 Performed By: #### B MP #### [address] [address] Glucose [Mass/Vol] 109 mg/dL High 74 - 99 [facility] Comment on above: Performed By: #### B MP #### [address] [address] HCO3 (Bld) [Moles/Vol] 26 mmol/L Normal 21 - 32 [facility] Comment on above: Performed By: #### B MP #### [address] [place] [address] Potassium [Moles/Vol] 4.0 mmol/L Normal 3.5 - 5.3 [facility] Comment on above: Performed By: #### B MP #### [address] [place] [address] Sodium [Moles/Vol] 141 mmol/L Normal 136 - 145 [facility] Comment on above: Performed By: #### B MP #### [address] [place] [address] Urea nitrogen [Mass/Vol] 30 mg/dL High 6 - 23 [facility] Comment on above: Performed By: #### B MP #### [address] [place] [address] BASIC METABOLIC PANELon 05-0 -2022 Anion gap [Moles/Vol] 11 mmol/L Normal 10 - 20 [facility] Comment on above: Performed By: #### B MP #### [address] [place] [address] Calcium [Mass/Vol] 9.6 mg/dL Normal 8.6 - 10.3 [facility] Comment on above: Performed By: #### B MP #### [address] [place] [address] Chloride [Moles/Vol] 102 mmol/L Normal 98 - 107 [facility] Comment on above: Performed By: #### B MP #### [address] [place] [address] Creatinine [Mass/Vol] 1.73 mg/dL High 0.50 - 1.05 [facility] Comment on above: Performed By: #### B MP #### [address] [place] [address] GFR/1.73 sq M.predicted among non-blacks MDRD (S/P/Bld) [Vol rate/Area] 30 mL/min/{1.73_m2} Abnormal >90 [facility] Comment on above: Result Comment: CALC ULATIONS OF ESTIMATED GFR ARE PERFORMED USING THE 2020 CKD-EPI STUDY REFIT EQUATION WITHOUT THE RACE VARIABLE FOR THE IDMS-TRACEABLE CREATININE METHODS. https://jasn.asnjournals.org/content/ASN 034729 Performed By: #### B MP #### [address] [place] [address] Glucose [Mass/Vol] 119 mg/dL High 74 - 99 [facility] Comment on above: Performed By: #### B MP #### [address] [place] [address] HCO3 (Bld) [Moles/Vol] 30 mmol/L Normal 21 - 32 [facility] Comment on above: Performed By: #### B MP #### [address] [place] [address] Potassium [Moles/Vol] 4.1 mmol/L Normal 3.5 - 5.3 [facility] Comment on above: Performed By: #### B MP #### [address] [place] [address] Sodium [Moles/Vol] 139 mmol/L Normal 136 - 145 [facility] Comment on above: Performed By: #### B MP #### [address] [place] [address] Urea nitrogen [Mass/Vol] 47 mg/dL High 6 - 23 [facility] Comment on above: Performed By: #### B MP #### [address] [place] [address] BASIC METABOLIC PANELon 04-0 Anion gap [Moles/Vol] 11 mmol/L Normal 10 - 20 [facility] Comment on above: Performed By: #### B MP #### [address] [place] [address] Calcium [Mass/Vol] 9.4 mg/dL Normal 8.6 - 10.3 [facility] Comment on above: Performed By: #### B MP #### [address] [place] [address] Chloride [Moles/Vol] 105 mmol/L Normal 98 - 107 [facility] Comment on above: Performed By: #### B MP #### [address] [address] Creatinine [Mass/Vol] 1.29 mg/dL High 0.50 - 1.05 [facility] Comment on above: Performed By: #### B MP #### [address] [address] GFR/1.73 sq M.predicted among non-blacks MDRD (S/P/Bld) [Vol rate/Area] 43 mL/min/{1.73_m2} Abnormal >90 [facility] Comment on above: Result Comment: CALC ULATIONS OF ESTIMATED GFR ARE PERFORMED USING THE 2020 CKD-EPI STUDY REFIT EQUATION WITHOUT THE RACE VARIABLE FOR THE IDMS-TRACEABLE CREATININE METHODS. https://jasn.asnjournals.org/content/early//ASN.2020 148609 Performed By: #### B MP #### [address] [address] Glucose [Mass/Vol] 115 mg/dL High 74 - 99 [facility] Comment on above: Performed By: #### B MP #### [address] [address] HCO3 (Bld) [Moles/Vol] 27 mmol/L Normal 21 - 32 [facility] Comment on above: Performed By: #### B MP #### [address] [address] Potassium [Moles/Vol] 4.2 mmol/L Normal 3.5 - 5.3 [facility] Comment on above: Performed By: #### B MP #### [address] [address] Sodium [Moles/Vol] 139 mmol/L Normal 136 - 145 [facility] Comment on above: Performed By: #### B MP #### [address] [address] Urea nitrogen [Mass/Vol] 35 mg/dL High 6 - 23 [facility] Comment on above: Performed By: #### B MP #### [address] [place] [address] THYROXINEon 09-28-2022 T4 [Mass/Vol] 8.4 ug/dL Normal 4.5 - 11.1 [facility] Comment on above: Performed By: #### B MP #### [address] [address] TSHon 09-28-2022 TSH Qn 3.40 m[IU]/L Normal 0.44 - 3.98 [facility] Comment on above: Result Comment: TSH testing is performed using different testing methodology at [facility] than at other [facility]. Direct result comparisons should only be made within the same method. Performed By: #### B MP #### [address] [address] BASIC METABOLIC PANELon 09-03 Anion gap [Moles/Vol] 13 mmol/L Normal 10 - 20 [facility] Comment on above: Performed By: #### B MP #### [address] [address] Calcium [Mass/Vol] 9.4 mg/dL Normal 8.6 - 10.3 [facility] Comment on above: Performed By: #### B MP #### [address] [address] Chloride [Moles/Vol] 103 mmol/L Normal 98 - 107 [facility] Comment on above: Performed By: #### B MP #### [address] [address] Creatinine [Mass/Vol] 1.05 mg/dL Normal 0.50 - 1.05 [facility] Comment on above: Performed By: #### B MP #### [address] [address] GFR/1.73 sq M.predicted among non-blacks MDRD (S/P/Bld) [Vol rate/Area] 55 mL/min/{1.73_m2} Abnormal >90 [facility] Comment on above: Result Comment: CALC ULATIONS OF ESTIMATED GFR ARE PERFORMED USING THE 2020 CKD-EPI STUDY REFIT EQUATION WITHOUT THE RACE VARIABLE FOR THE IDMS-TRACEABLE CREATININE METHODS. https://jasn.asnjournals.org/content/early//ASN 723084 Performed By: #### B MP #### [address] [address] Glucose [Mass/Vol] 121 mg/dL High 74 - 99 [facility] Comment on above: Performed By: #### B MP #### [address] [address] HCO3 (Bld) [Moles/Vol] 26 mmol/L Normal 21 - 32 [facility] Comment on above: Performed By: #### B MP #### [address] [address] Potassium [Moles/Vol] 3.9 mmol/L Normal 3.5 - 5.3 [facility] Comment on above: Performed By: #### B MP #### [address] [address] Sodium [Moles/Vol] 138 mmol/L Normal 136 - 145 [facility] Comment on above: Performed By: #### B MP #### [address] [address] Urea nitrogen [Mass/Vol] 25 mg/dL High 6 - 23 [facility] Comment on above: Performed By: #### B MP #### [address] [address] CBC AND DIFFERENTIALon 09-21 % AUTOMATED IMMATURE GRAN 0.3 % Normal 0.0 - 0.9 [facility] Comment on above: Result Comment: Briana ture Granulocyte Count (IG) includes promyelocytes, myelocytes and metamyelocytes but does not include bands. Percent differential counts (%) should be interpreted in the context of the absolute cell counts (cells/L). Performed By: #### B MP #### [address] [address] Basophils (Bld) [#/Vol] 0.04 10*3/uL Normal 0.00 - 0.1 0 [facility] Comment on above: Performed By: #### B MP #### [address] [address] Basophils/100 WBC (Bld) 0.6 % Normal 0.0 - 2.[address] [facility] Comment on above: Performed By: #### B MP #### [facility] [address] [place] [address] Eosinophils (Bld) [#/Vol] 0.38 10*3/uL Normal 0.00 - 0.40 [facility] Comment on above: Performed By: #### B MP #### [facility] [address] [place] [address] Eosinophils/100 WBC (Bld) 6.1 % Normal 0.0 - 6.0 [facility] Comment on above: Performed By: #### B MP #### [address] [place] [address] Erythrocyte distribution width (RBC) [Ratio] 13.4 % Normal 11.5 - 14.5 [facility] Comment on above: Performed By: #### B MP #### [address] [place] [address] Hematocrit (Bld) [Volume fraction] 38.7 % Normal 36.0 - 46.0 [facility] Comment on above: Performed By: #### B MP #### [facility] [address] [place] [address] Hemoglobin (Bld) [Mass/Vol] 12.6 g/dL Normal 12.0 - 16.0 [facility] Comment on above: Performed By: #### B MP #### [facility] [address] [place] [address], [place] [address] Lymphocytes (Bld) [#/Vol] 1.71 10*3/uL Normal 0.80 - 3.00 [facility] Comment on above: Performed By: #### B MP #### [facility] [address] [place] [address] Lymphocytes/100 WBC (Bld) 27.6 % Normal 13.0 - 44.0 [facility] Comment on above: Performed By: #### B MP #### [address] [place] [address] MCHC (RBC) [Mass/Vol] 32.6 g/dL Normal 32.0 - 36.0 [facility] Comment on above: Performed By: #### B MP #### [address] [place] [address] MCV (RBC) [Entitic vol] 98 fL Normal 80 - 100 [facility] Comment on above: Performed By: #### B MP #### [address] [address] Monocytes (Bld) [#/Vol] 0.46 10*3/uL Normal 0.05 - 0.8 0 [facility] Comment on above: Performed By: #### B MP #### [address] [address] Monocytes/100 WBC (Bld) 7.4 % Normal 2.0 - 10.0 [facility] Comment on above: Performed By: #### B MP #### [address] [address] Neutrophils (Bld) [#/Vol] 3.58 10*3/uL Normal 1.60 - 5.50 [facility] Comment on above: Performed By: #### B MP #### [address] [address] Neutrophils/100 WBC (Bld) 58.0 % Normal 40.0 - 80.0 [facility] Comment on above: Performed By: #### B MP #### [address] [address] NUCLEATED RBC 0.0 /100 WBC Normal 0.0 - 0.0 [facility] Comment on above: Performed By: #### B MP #### [address] [address] Platelets (Bld) [#/Vol] 230 10*3/uL Normal 150 - 450 [facility] Comment on above: Performed By: #### B MP #### [address] [place] [address] RBC 3.93 x10E12/L Low 4.00 - 5.20 [facility] Comment on above: Performed By: #### B MP #### [address] [address] WBC (Bld) [#/Vol] 6.2 10*3/uL Normal 4.4 - 11.3 [facility] Comment on above: Performed By: #### B MP #### [facility] [address] [place] [address] HEMOGLOBIN A1Con 09-21-2022 Glucose [Mass/Vol] 105 mg/dL Normal [facility] Comment on above: Performed By: #### B MP #### [facility] [address] [place] [address] HbA1c (Bld) [Mass fraction] 5.3 % Normal [facility] Comment on above: Result Comment: Diag nosis of Diabetes-Adults Non-Diabetic: < or = 5.6% Increased risk for developing diabetes: 5.7-6.4% Diagnostic of diabetes: > or = 6.5% . Monitoring of Diabetes Age (y) Therapeutic Goal (%) Adults: >18 <7.0 Pediatrics: 13-18 <7.5 7-12 <8.0 0- 6 7.5-8.5 [place] [employer]. Diabetes Care 33(S1), Jul 2009. Performed By: #### B MP #### [facility] [address] [place] [address] LIPID PANEL (CORONARY RISK 2 )on 09-21-2022 Cholesterol [Mass/Vol] 137 mg/dL Normal 0 - 199 [facility] Comment on above: Result Comment: . [...] dosing. Performed By: #### L IPID #### [facility] [address] [place] [address] Cholesterol in HDL [Mass/Vol] 40.8 mg/dL Normal [facility] Comment on above: Result Comment: . AGE VERY LOW LOW NORMAL HIGH 0-19 Y < 35 < 40 40-45 ---- 20-24 Y ---- < 40 >45 ---- >24 Y ---- < 40 40-60 >60 . Performed By: #### L IPID #### [address] [address] Cholesterol in LDL [Mass/Vol] 81 mg/dL Normal 0 - 99 [facility] Comment on above: Result Comment: . NEAR BORD AGE DESIRABLE OPTIMAL HIGH HIGH VERY HIGH 0-19 Y 0 - 109 --- 110-129 >/= 130 ---- 20-24 Y 0 - 119 --- 120-159 >/= 160 ---- >24 Y 0 - 99 100-129 130-159 160-189 >/=190 . Performed By: #### L IPID #### [address] [address] Cholesterol in VLDL [Mass/Vol] 15 mg/dL Normal 0 - 40 [facility] Comment on above: Performed By: #### L IPID #### [address] [address] Cholesterol.total/Yesi sterol in HDL [Mass ratio] 3.4 {ratio} Normal [facility] Comment on above: Result Comment: REF VALUES DESIRABLE < 3.4 HIGH RISK > 5.0 Performed By: #### L IPID #### [address] [address] Triglyceride [Mass/Vol] 74 mg/dL Normal 0 - 149 [facility] Comment on above: Result Comment: . AGE [...] dosing. Performed By: #### L IPID #### [address] [address] TSHon 09-21-2022 TSH Qn 4.52 m[IU]/L High 0.44 - 3.98 [facility] Comment on above: Result Comment: TSH testing is performed using different testing methodology at [facility] than at other [facility]. Direct result comparisons should only be made within the same method. Performed By: #### B MP #### [address] [address] VITAMIN D, 25-HYDROXYon 09-03 VITAMIN D, 25-HYDROXY 61 ng/mL Normal [facility] Comment on above: Result Comment: . DEFICIENCY: < 20 NG/ML INSUFFICIENCY: 20-29 NG/ML SUFFICIENCY: 30-100 NG/ML THIS ASSAY ACCURATELY QUANTIFIES THE SUM OF VITAMIN D3, 25-HYDROXY AND VIT D2,25-HYDROXY. Performed By: #### B MP #### [address] [address] BASIC METABOLIC PANELon Anion gap [Moles/Vol] 10 mmol/L Normal 10 - 20 [facility] Comment on above: Performed By: #### B MP #### [address] [address] Calcium [Mass/Vol] 9.3 mg/dL Normal 8.6 - 10.3 [facility] Comment on above: Performed By: #### B MP #### [address] [address] Chloride [Moles/Vol] 105 mmol/L Normal 98 - 107 [facility] Comment on above: Performed By: #### B MP #### [address] [address] Creatinine [Mass/Vol] 1.18 mg/dL High 0.50 - 1.05 [facility] Comment on above: Performed By: #### B MP #### [address] [address] GFR/1.73 sq M.predicted among non-blacks MDRD (S/P/Bld) [Vol rate/Area] 48 mL/min/{1.73_m2} Abnormal >90 [facility] Comment on above: Result Comment: CALC ULATIONS OF ESTIMATED GFR ARE PERFORMED USING THE 2020 CKD-EPI STUDY REFIT EQUATION WITHOUT THE RACE VARIABLE FOR THE IDMS-TRACEABLE CREATININE METHODS. https://jasn.asnjournals.org/content/early/ASN.2020 438476 Performed By: #### B MP #### [facility] [address] [place] [address] Glucose [Mass/Vol] 105 mg/dL High 74 - 99 [facility] Comment on above: Performed By: #### B MP #### [address] [place] [address] HCO3 (Bld) [Moles/Vol] 27 mmol/L Normal 21 - 32 [facility] Comment on above: Performed By: #### B MP #### [address] [place] [address] Potassium [Moles/Vol] 4.1 mmol/L Normal 3.5 - 5.3 [facility] Comment on above: Performed By: #### B MP #### [address] [place] [address] Sodium [Moles/Vol] 138 mmol/L Normal 136 - 145 [facility] Comment on above: Performed By: #### B MP #### [address] [place] [address] Urea nitrogen [Mass/Vol] 25 mg/dL High 6 - 23 [facility] Comment on above: Performed By: #### B MP #### [address] [place] [address] HEMOGLOBIN A1Con 08-27-2022 Glucose [Mass/Vol] 126 mg/dL Normal [facility] Comment on above: Performed By: #### H BA1E #### [address] [place] [address] HbA1c (Bld) [Mass fraction] 6.0 % Abnormal [facility] Comment on above: Result Comment: Diag nosis of Diabetes-Adults Non-Diabetic: < or = 5.6% Increased risk for developing diabetes: 5.7-6.4% Diagnostic of diabetes: > or = 6.5% . Monitoring of Diabetes Age (y) Therapeutic Goal (%) Adults: >18 <7.0 Pediatrics: 13-18 <7.5 7-12 <8.0 0- 6 7.5-8.5 [place] [employer]. Diabetes Care 33(S1), Jul 2009. Performed By: #### H BA1E #### [address] [address] BASIC METABOLIC PANELon Anion gap [Moles/Vol] 10 mmol/L Normal 10 - 20 [facility] Comment on above: Performed By: #### B MP #### [address] [address] Calcium [Mass/Vol] 9.5 mg/dL Normal 8.6 - 10.3 [facility] Comment on above: Performed By: #### B MP #### [address] [address] Chloride [Moles/Vol] 102 mmol/L Normal 98 - 107 [facility] Comment on above: Performed By: #### B MP #### [address] [address] Creatinine [Mass/Vol] 1.40 mg/dL High 0.50 - 1.05 [facility] Comment on above: Performed By: #### B MP #### [address] [address] GFR/1.73 sq M.predicted among non-blacks MDRD (S/P/Bld) [Vol rate/Area] 39 mL/min/{1.73_m2} Abnormal >90 [facility] Comment on above: Result Comment: CALC ULATIONS OF ESTIMATED GFR ARE PERFORMED USING THE 2020 CKD-EPI STUDY REFIT EQUATION WITHOUT THE RACE VARIABLE FOR THE IDMS-TRACEABLE CREATININE METHODS. https://jasn.asnjournals.org/content/early//ASN.2020 080812 Performed By: #### B MP #### [address] [address] Glucose [Mass/Vol] 128 mg/dL High 74 - 99 [facility] Comment on above: Performed By: #### B MP #### [address] [place] [address] HCO3 (Bld) [Moles/Vol] 29 mmol/L Normal 21 - 32 [facility] Comment on above: Performed By: #### B MP #### [address] [place] [address] Potassium [Moles/Vol] 4.2 mmol/L Normal 3.5 - 5.3 [facility] Comment on above: Performed By: #### B MP #### [address] [place] [address] Sodium [Moles/Vol] 137 mmol/L Normal 136 - 145 [facility] Comment on above: Performed By: #### B MP #### [address] [place] [address] Urea nitrogen [Mass/Vol] 31 mg/dL High 6 - 23 [facility] Comment on above: Performed By: #### B MP #### [address] [place] [address] BASIC METABOLIC PANELon 07-05 Anion gap [Moles/Vol] 10 mmol/L Normal 10 - 20 [facility] Comment on above: Performed By: #### B MP #### [address] [place] [address] Calcium [Mass/Vol] 9.6 mg/dL Normal 8.6 - 10.3 [facility] Comment on above: Performed By: #### B MP #### [address] [place] [address] Chloride [Moles/Vol] 104 mmol/L Normal 98 - 107 [facility] Comment on above: Performed By: #### B MP #### [address] [place] [address] Creatinine [Mass/Vol] 1.30 mg/dL High 0.50 - 1.05 [facility] Comment on above: Performed By: #### B MP #### [address] [place] [address] GFR/1.73 sq M.predicted among non-blacks MDRD (S/P/Bld) [Vol rate/Area] 42 mL/min/{1.73_m2} Abnormal >90 [facility] Comment on above: Result Comment: CALC ULATIONS OF ESTIMATED GFR ARE PERFORMED USING THE 2020 CKD-EPI STUDY REFIT EQUATION WITHOUT THE RACE VARIABLE FOR THE IDMS-TRACEABLE CREATININE METHODS. https://jasn.asnjournals.org/content/early/ASN.2020 907587 Performed By: #### B MP #### [address] [place] [address] Glucose [Mass/Vol] 116 mg/dL High 74 - 99 [facility] Comment on above: Performed By: #### B MP #### [address] [place] [address] HCO3 (Bld) [Moles/Vol] 30 mmol/L Normal 21 - 32 [facility] Comment on above: Performed By: #### B MP #### [address] [place] [address] Potassium [Moles/Vol] 4.2 mmol/L Normal 3.5 - 5.3 [facility] Comment on above: Performed By: #### B MP #### [address] [place] [address] Sodium [Moles/Vol] 140 mmol/L Normal 136 - 145 [facility] Comment on above: Performed By: #### B MP #### [address] [place] [address] Urea nitrogen [Mass/Vol] 31 mg/dL High 6 - 23 [facility] Comment on above: Performed By: #### B MP #### [address] [place] [address] BASIC METABOLIC PANELon 0 Anion gap [Moles/Vol] 13 mmol/L Normal 10 - 20 [facility] Comment on above: Performed By: #### B MP #### [address] [place] [address] Calcium [Mass/Vol] 9.0 mg/dL Normal 8.6 - 10.3 [facility] Comment on above: Performed By: #### B MP #### [facility] [address] [place] [address] Chloride [Moles/Vol] 102 mmol/L Normal 98 - 107 [facility] Comment on above: Performed By: #### B MP #### [address] [place] [address] Creatinine [Mass/Vol] 1.67 mg/dL High 0.50 - 1.05 [facility] Comment on above: Performed By: #### B MP #### [address] [address] GFR/1.73 sq M.predicted among non-blacks MDRD (S/P/Bld) [Vol rate/Area] 31 mL/min/{1.73_m2} Abnormal >90 [facility] Comment on above: Result Comment: CALC ULATIONS OF ESTIMATED GFR ARE PERFORMED USING THE 2020 CKD-EPI STUDY REFIT EQUATION WITHOUT THE RACE VARIABLE FOR THE IDMS-TRACEABLE CREATININE METHODS. https://jasn.asnjournals.org/content/early//ASN.2020 287533 Performed By: #### B MP #### [address] [address] Glucose [Mass/Vol] 108 mg/dL High 74 - 99 [facility] Comment on above: Performed By: #### B MP #### [address] [place] [address] HCO3 (Bld) [Moles/Vol] 27 mmol/L Normal 21 - 32 [facility] Comment on above: Performed By: #### B MP #### [address] [place] [address] Potassium [Moles/Vol] 4.5 mmol/L Normal 3.5 - 5.3 [facility] Comment on above: Performed By: #### B MP #### [address] [place] [address] Sodium [Moles/Vol] 137 mmol/L Normal 136 - 145 [facility] Comment on above: Performed By: #### B MP #### [address] [address] Urea nitrogen [Mass/Vol] 34 mg/dL High 6 - 23 [facility] Comment on above: Performed By: #### B MP #### [address] [address] BASIC METABOLIC PANELon 12-0 -2021 Anion gap [Moles/Vol] 11 mmol/L Normal 10 - 20 [facility] Comment on above: Performed By: #### B MP #### [address] [address] Calcium [Mass/Vol] 9.0 mg/dL Normal 8.6 - 10.3 [facility] Comment on above: Performed By: #### B MP #### [address] [address] Chloride [Moles/Vol] 103 mmol/L Normal 98 - 107 [facility] Comment on above: Performed By: #### B MP #### [address] [address] Creatinine [Mass/Vol] 1.36 mg/dL High 0.50 - 1.05 [facility] Comment on above: Performed By: #### B MP #### [address] [address] GFR/1.73 sq M.predicted among non-blacks MDRD (S/P/Bld) [Vol rate/Area] 40 mL/min/{1.73_m2} Abnormal >90 [facility] Comment on above: Result Comment: CALC ULATIONS OF ESTIMATED GFR ARE PERFORMED USING THE 2020 CKD-EPI STUDY REFIT EQUATION WITHOUT THE RACE VARIABLE FOR THE IDMS-TRACEABLE CREATININE METHODS. https://jasn.asnjournals.org/content/early//ASN.2020 935364 Performed By: #### B MP #### [address] [address] Glucose [Mass/Vol] 89 mg/dL Normal 74 - 99 [facility] Comment on above: Performed By: #### B MP #### [address] [address] HCO3 (Bld) [Moles/Vol] 29 mmol/L Normal 21 - 32 [facility] Comment on above: Performed By: #### B MP #### [facility] [address] [place] [address] Potassium [Moles/Vol] 4.1 mmol/L Normal 3.5 - 5.3 [facility] Comment on above: Performed By: #### B MP #### [facility] [address] [place] [address] Sodium [Moles/Vol] 139 mmol/L Normal 136 - 145 [facility] Comment on above: Performed By: #### B MP #### [facility] [address] [place] [address] Urea nitrogen [Mass/Vol] 35 mg/dL High - [facility] Comment on above: Performed By: #### B MP #### [place] [address] [place] [address] HEMOGLOBIN A1Con 05-27-2022 Glucose [Mass/Vol] 131 mg/dL Normal [facility] Comment on above: Performed By: #### H BA1E #### [facility] [address] [place] [address] HbA1c (Bld) [Mass fraction] 6.2 % Abnormal [facility] Comment on above: Result Comment: Diag nosis of Diabetes-Adults Non-Diabetic: < or = 5.6% Increased risk for developing diabetes: 5.7-6.4% Diagnostic of diabetes: > or = 6.5% . Monitoring of Diabetes Age (y) Therapeutic Goal (%) Adults: >18 <7.0 Pediatrics: 13-18 <7.5 7-12 <8.0 0- 6 7.5-8.5 [place] [employer]. Diabetes Care 33(S1), Jul 2009. Performed By: #### H BA1E #### [facility] [address] [place] [address] Office Visit (Neuro-General) on 10-30-2020 Follow-up visit [...] loss. There are good alternative medication and [id number] strategies to help migraines: You can try [...] issues or needing to speak to my triage assistant, Maeve, please call [phone], option 6. Our office hours are M-F 8am-4pm, if you have an emergency please call [phone] or visit a local urgent care or [...] without Contrast; Status:Hold For - Scheduling; Requested for:[id number]; Radiologist to Determine Optimal Study : Y Does the patient have a Cochlear Implant, Pacemaker, Defibrilator, Pacing Wire, Brain Aneurysm Clip, Implanted Nerve or Bone Graft Simulator, Implanted Breast Tissue Dumper Mold Cleaner, Glucose Monitor, or Neulasta Device? : No Is the patient or breast feeding? : No What are the patient's signs and symptoms? : headache, new onset MRI Brain without Contrast; Status:Hold For - Scheduling; Requested for:[id number]; Radiologist to Determine Optimal Study : Y Does the patient have a Cochlear Implant, Pacemaker, Defibrilator, Pacing Wire, Brain Aneurysm Clip, Implanted Nerve or Bone Graft Simulator, Implanted Breast Tissue Dumper Mold Cleaner, Glucose Monitor, or Neulasta Device? : No Is the patient or breast feeding? : No What are the patient's signs and symptoms? : headache, new onset Sedimentation Rate, Erythrocyte; Status:Active; Requested for:[id number]; Chief Complaint HDEZ evaluation. History of Present [...] loss, bu (more content not included)... Normal [facility] Laboratory - Chemistry and C hemistry - challengeon 10-01-2020 Anion gap [Moles/Vol] 11 mmol/L 10 - 20 [facility] -[place] 204 Work Phone: Comment on above: Ordering Provider: T HOMAS MANDAT [address] Calcium [Mass/Vol] 9.4 mg/dL 8.6 - 10.3 [facility] rology -[place] 204 Work Phone: Comment on above: Ordering Provider: T HOMAS MANDAT [address] Chloride [Moles/Vol] 102 mmol/L 98 - 107 [facility]-N eurology -[place] 204 Work Phone: Comment on above: Ordering Provider: T HOMAS MANDAT [address] CO2 [Moles/Vol] 31 mmol/L 21 - 32 [facility]-Neurol ogy -[place] 204 Work Phone: Comment on above: Ordering Provider: T HOMAS MANDAT [address] Creatinine [Mass/Vol] 1.07 mg/dL above high threshold See Below [facility] -[place] 204 Work Phone: Comment on above: Reference Range: 0.5 0 - 1.05 Ordering Provider: T HOMAS MANDAT [address] Glucose [Mass/Vol] 73 mg/dL below low threshold 74 - 99 [facility] -[place] 204 Work Phone: Comment on above: Ordering Provider: T HOMAS MANDAT [address] Potassium [Moles/Vol] 4.1 mmol/L 3.5 - 5.3 [facility] -[place] 204 Work Phone: Comment on above: Ordering Provider: T HOMAS MANDAT [address] Sodium [Moles/Vol] 140 mmol/L 136 - 145 [facility] rology -[place] 204 Work Phone: Comment on above: Ordering Provider: T HOMAS MANDAT [address] Urea nitrogen [Mass/Vol] 17 mg/dL 6 - 23 [facility] -[place] 204 Work Phone: Comment on above: Ordering Provider: Jason COLON [address] Laboratory - Hematology and Cell countson 10-01-2020 Erythrocyte distribution width (RBC) [Ratio] 12.9 % See Below [place] [address] Work Phone: Comment on above: Reference Range: 11. 5 - 14.5 Ordering Provider: Jason MYRICKAT [address] Hematocrit (Bld) [Volume fraction] 39.1 % See Below [place] [address] Work Phone: Comment on above: Reference Range: 36. 0 - 46.0 Ordering Provider: Jason MYRICKAT [address] Hemoglobin (Bld) [Mass/Vol] 13.1 g/dL See Below [place] [address] Work Phone: Comment on above: Reference Range: 12. 0 - 16.0 Ordering Provider: Jason MYRICKAT [address] MCHC (RBC) [Mass/Vol] 33.5 g/dL See Below [place] [address] Work Phone: Comment on above: Reference Range: 32. 0 - 36.0 Ordering Provider: Jason MYRICKAT [address] MCV (RBC) [Entitic vol] 99 fL 80 - 100 M [place] [address] Work Phone: Comment on above: Ordering Provider: Jason MYRICKAT [address] Platelets (Bld) [#/Vol] 227 10*3/uL 150 - 450 [place] [address] Work Phone: Comment on above: Ordering Provider: Jason ALCANTAR MANDAT [address] RBC (Bld) [#/Vol] 3.96 {x10E12/L} below low threshold See Below [place] [address] Work Phone: Comment on above: Reference Range: 4.0 0 - 5.20 Ordering Provider: Jason MYRICKAT [address] WBC (Bld) [#/Vol] 6.9 10*3/uL 4.4 - 11.3 [place] [address] Work Phone: Comment on above: Ordering Provider: T HOMAS MANDAT [address] Lipid Panelon 10-01-2020 Cholesterol [Mass/Vol] 115 mg/dL 0 - 199 [facility] 204 Work Phone: Comment on above: . [...] to Metamizole dosing. Ordering Provider: T KATHARINE MANDAT [address] Cholesterol in HDL [Mass/Vol] 37.2 mg/dL Abnormal [facility] 204 Work Phone: Comment on above: . AGE VERY LOW LOW N ORMAL HIGH 0-19 Y < 35 < 40 40-45 ---- 20-24 Y ---- < 40 >45 ---- >24 Y ---- < 40 40-60 >60. Ordering Provider: T KATHARINE MYRICKAT [address] Cholesterol in LDL [Mass/Vol] 55 mg/dL 0 - 99 [facility] 204 Work Phone: Comment on above: . NEAR BORD AGE JCARLOS RABLE OPTIMAL HIGH HIGH VERY HIGH 0-19 Y 0 - 109 --- 110-129 >/= 130 ---- 20-24 Y 0 - 119 --- 120-159 >/= 160 ---- >24 Y 0 - 99 100-129 130-159 160-189 >/=190. Ordering Provider: T HOMAS MANDAT [address] Cholesterol.total/Yesi sterol in HDL [Mass ratio] 3.1 {ratio} [facility] 204 Work Phone: Comment on above: REF VALUESDESIRABLE < 3.4HIGH RISK > 5.0 Ordering Provider: T HOMAS MANDAT 35478 Triglyceride [Mass/Vol] 115 mg/dL 0 - 149 [facility] 204 Work Phone: Comment on above: . [...] prior to Metamizole dosing. Ordering Provider: Jason HOMAZeinab MANDAT 65071 Lipid Panel 23 mg/dL 0 - 40 [facility] [facility] Work Phone: Comment on above: Ordering Provider: Jason HOMAS MANDAT 02777 No Panel Informationon 10-01 0.0 {/100_WBC} 0.0 - 0.0 [facility] [facility] Work Phone: Comment on above: Ordering Provider: T HOMAS MANDAT 43364 50 {mL/min/1.73m2} Abnormal >60 [facility] 204 Work Phone: Comment on above: Ordering Provider: Jason HOMAS MANDAT 79411 61 {mL/min/1.73m2} >60 [facility] [facility] Work Phone: Comment on above: CALCULATIONS OF ROSALIE MATED GFR ARE PERFORMED USING THE MDRD STUDY EQUATION FOR THE IDMS-TRACEABLE CREATININE METHODS. CLIN CHEM 2007;53:766-72 Ordering Provider: Jason HOMAS MANDAT 19138 TSH - Thyroid Stimulating Ho arnoldo, Serumon 10-01-2020 TSH Qn 1.92 m[IU]/L See Below [facility] 204 Work Phone: Comment on above: Reference Range: 0.4 4 - 3.98 TSH testing is performed using different testing methodology at [facility] than at other [facility]. Direct result comparisons should only be made within the same method. Ordering Provider: Jason COLON 25110 Vitamin D 25-Hydroxyon 10-01 25-hydroxyvitamin D3 [Mass/Vol] 37 ng/mL [facility] [place] [facility] Work Phone: Comment on above: .DEFICIENCY: < 20 NG /MLINSUFFICIENCY: 20-29 NG/MLSUFFICIENCY: 30-100 NG/MLTHIS ASSAY ACCURATELY QUANTIFIES THE SUM OFVITAMIN D3, 25-HYDROXY AND VIT D2,25-HYDROXY. Ordering Provider: Jason KATHARINE COLON 58176 CORONAVIRUS 2019 BY PCRon SARS-CoV-2 (COVID-19) RNA KAYLEE+probe Ql (Unsp spec) Not detected Normal Not Detected [facility] Comment on above: Result Comment: [...] patient management decisions. Fact sheet for providers: https://www.fda.gov/media/603512/download Fact sheet for patients: https://www.fda.gov/media/000273/download This test has received FDA Emergency Use Authorization (EUA) and has been verified by [facility] ([facility]). This test is only authorized for the duration of time that circumstances exist to justify the authorization of the emergency use of in vitro diagnostic tests for the detection of SARS-CoV-2 virus and/or diagnosis of COVID-19 infection under section 564(b)(1) of the Act, 21 U.S.C. 360bbb-3(b)(1), unless the authorization is terminated or revoked sooner. [facility] ([facility]) is certified under CLIA-88 as qualified to perform high complexity testing. This tests analytical performance characteristics have been determined by [facility]. Testing is performed at [facility] is located at [address] [place] [address] ([place] License #[id number], CAP #[id number]). Performed By: #### C OV19 #### [facility] [place] [address] CORONAVIRUS 2019 BY PCRon Lab Specimen Source Nasal, Nasopharyngeal Normal [facility] Comment on above: Performed By: #### C OV19 #### [facility]0 [place] [id number] Urinalysison 03-08-2018 Bilirubin, Urine Negative Normal Negative [facility] Comment on above: Performed By: #### C BC, BMP, PHOS, MG, CK, UR, LDLP, URINC ####[address] [address] Clarity Nom (U) Clear Normal [facility] Comment on above: Performed By: #### C BC, BMP, PHOS, MG, CK, UR, LDLP, URINC ####[address] [address] Color Nom (U) Straw Normal [facility] Comment on above: Performed By: #### C BC, BMP, PHOS, MG, CK, UR, LDLP, URINC ####[address] [address] Epithelial Cells Rare Normal 0-5 [facility] Comment on above: Performed By: #### C BC, BMP, PHOS, MG, CK, UR, LDLP, URINC ####[address] [address] Glucose Ql (U) Negative Normal Negative [facility] Comment on above: Performed By: #### C BC, BMP, PHOS, MG, CK, UR, LDLP, URINC ####[address] [address] Hemoglobin Test strip Ql (U) Negative Normal Negative [facility] Comment on above: Performed By: #### C BC, BMP, PHOS, MG, CK, UR, LDLP, URINC ####[address] [address] Hyaline Casts, Urine 0-5 Normal [facility] Comment on above: Performed By: #### C BC, BMP, PHOS, MG, CK, UR, LDLP, URINC ####[address] [address] Ketones Ql (U) Negative Normal Negative [facility] Comment on above: Performed By: #### C BC, BMP, PHOS, MG, CK, UR, LDLP, URINC ####[address] [address] Leukocyte esterase Test strip Ql (U) 1+ Abnormal Negative [facility] Comment on above: Performed By: #### C BC, BMP, PHOS, MG, CK, UR, LDLP, URINC ####[address] [address] Nitrates, Urine Negative Normal Negative [facility] Comment on above: Performed By: #### C BC, BMP, PHOS, MG, CK, UR, LDLP, URINC ####[address] [address] pH Test strip (U) 6.0 [pH] Normal 5.0-9.0 [facility] Comment on above: Performed By: #### C BC, BMP, PHOS, MG, CK, UR, LDLP, URINC ####[address] [address] Protein, Urine Negative Normal Negative [facility] Comment on above: Performed By: #### C BC, BMP, PHOS, MG, CK, UR, LDLP, URINC ####[address] [address] Specific [place], Urine 1.009 Normal 1.000-1.030 [facility] Comment on above: Performed By: #### C BC, BMP, PHOS, MG, CK, UR, LDLP, URINC ####[address] [address] Urobilinogen, Urine Normal Normal <2.0 [facility] Comment on above: Performed By: #### C BC, BMP, PHOS, MG, CK, UR, LDLP, URINC ####[address] [address] RBC, Urine 0 /HPF Normal 0-3 [facility] Comment on above: Performed By: #### C BC, BMP, PHOS, MG, CK, UR, LDLP, URINC ####[address] [address] WBC, Urine 0 /HPF Normal 0-2 [facility] Comment on above: Performed By: #### C BC, BMP, PHOS, MG, CK, UR, LDLP, URINC ####[address] [address] Urine Cultureon 03-08-2018 Bacteria identified Cx Nom (U) ---- RUN DATE: 03/09/18 [facility] LAB LIVE PAGE 1 RUN TIME: 1515 Specimen Inquiry ---- PATIENT: CARLINE VILLARREAL ACCT: [id number] LOC: PVNHLAB U: [id number] AGE/SX: 72/F ROOM: RE03/08/[address]: Grant Colon MD : 1945 BED: DIS: STATUS: REG RCR TLOC: ---- SPEC #: [id number] ASHOK: 03/08/18 STATUS: COMP REQ #: [id number] RECD: 03/08/[address]: Grant Colon MD SOURCE: URINE ENTR: 03/08/[address]: [facility] SPDC: Urine Not ORDERED: Urine Culture ---- Procedure Result ---- > Urine Culture Final COMMENT PATIENT: CARLINE VILLARREAL [place] [facility] [id number] : 45 AGE: SEX: F ORDERED BY: GRANT COLON SOURCE: URINE COLLECTED: 03/08/18 14:30 ANTIBIOTICS AT ASHOK.: RECEIVED : 03/08/18 22:52 SITE: [facility] R E S U L T S URINE CULTURE,BACTERIAL FINAL 03/09/18 15:14 MIXED URETHRAL ANDREW. Performing Site: [place] [id number] [place] [address] ---- END OF REPORT Normal [facility] Comment on above: Performed By: #### C BC, BMP, PHOS, MG, CK, UR, LDLP, URINC ####[address] [address] Urinalysison 03-06-2018 Bacteria LM.HPF #/area (Urine sed) Occasional Normal 0 [facility] Comment on above: Performed By: #### C BC, BMP, PHOS, MG, CK, UR, LDLP, URINC ####[address] [address] Bilirubin, Urine Negative Normal Negative [facility] Comment on above: Performed By: #### C BC, BMP, PHOS, MG, CK, UR, LDLP, URINC ####[address] [address] Clarity Nom (U) Cloudy Normal [facility] Comment on above: Performed By: #### C BC, BMP, PHOS, MG, CK, UR, LDLP, URINC ####[address] [address] Color Nom (U) Yellow Normal [facility] Comment on above: Performed By: #### C BC, BMP, PHOS, MG, CK, UR, LDLP, URINC ####[facility] [place] [address] Epithelial Cells Rare Normal 0-5 [facility] Comment on above: Performed By: #### C BC, BMP, PHOS, MG, CK, UR, LDLP, URINC ####[address] [address] Glucose Ql (U) Negative Normal Negative [facility] Comment on above: Performed By: #### C BC, BMP, PHOS, MG, CK, UR, LDLP, URINC ####[address] [address] Hemoglobin Test strip Ql (U) Negative Normal Negative [facility] Comment on above: Performed By: #### C BC, BMP, PHOS, MG, CK, UR, LDLP, URINC ####[address] [address] Hyaline Casts, Urine 5-10 Normal [facility] Comment on above: Performed By: #### C BC, BMP, PHOS, MG, CK, UR, LDLP, URINC ####[address] [address] Ketones Ql (U) Negative Normal Negative [facility] Comment on above: Performed By: #### C BC, BMP, PHOS, MG, CK, UR, LDLP, URINC ####[address] [address] Leukocyte esterase Test strip Ql (U) 3+ Abnormal Negative [facility] Comment on above: Performed By: #### C BC, BMP, PHOS, MG, CK, UR, LDLP, URINC ####[address] [address] Mucus, Urine Rare Normal [facility] Comment on above: Performed By: #### C BC, BMP, PHOS, MG, CK, UR, LDLP, URINC ####[address] [address] Nitrates, Urine Negative Normal Negative [facility] Comment on above: Performed By: #### C BC, BMP, PHOS, MG, CK, UR, LDLP, URINC ####[place] [id number] pH Test strip (U) 5.0 [pH] Normal 5.0-9.0 [facility] Comment on above: Performed By: #### C BC, BMP, PHOS, MG, CK, UR, LDLP, URINC ####[address] [address] Protein, Urine Negative Normal Negative [facility] Comment on above: Performed By: #### C BC, BMP, PHOS, MG, CK, UR, LDLP, URINC ####[address] 9[address] Renal Epithelial Cells, Urine <1 Normal [facility] Comment on above: Performed By: #### C BC, BMP, PHOS, MG, CK, UR, LDLP, URINC ####[address] [address] Specific [place], Urine 1.008 Normal 1.000-1.030 [facility] Comment on above: Performed By: #### C BC, BMP, PHOS, MG, CK, UR, LDLP, URINC ####[place] [address]229 Urobilinogen, Urine Normal Normal <2.0 [facility] Comment on above: Performed By: #### C BC, BMP, PHOS, MG, CK, UR, LDLP, URINC ####[address] [address] WBC LM.HPF #/area (Urine sed) 10-20 Abnormal 0-2 [facility] Comment on above: Performed By: #### C BC, BMP, PHOS, MG, CK, UR, LDLP, URINC ####[place] [address] [place] [address] RBC, Urine 0 /HPF Normal 0-3 [facility] Comment on above: Performed By: #### C BC, BMP, PHOS, MG, CK, UR, LDLP, URINC ####[facility] [place] [address] Urine Cultureon 03-06-2018 Bacteria identified Cx Nom (U) ---- RUN DATE: 03/07/18 [facility] LAB LIVE PAGE 1 RUN TIME: 08 Specimen Inquiry ---- PATIENT: CARLINE VILLARREAL ACCT: [id number] LOC: PVNHLAB U: [id number] AGE/SX: 71/F ROOM: RE10/18/[address]: Grant Colon MD : 1945 BED: DIS: STATUS: REG RCR TLOC: ---- SPEC #: [id number] ASHOK: 03/06/18 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 Performing Site: [facility] - [address] [place] [address] ---- END OF REPORT Normal [facility] Comment on above: Performed By: #### C BC, BMP, PHOS, MG, CK, UR, LDLP, URINC ####[address] [address] Automated blood count $$on 0 10-18-2017 Erythrocyte distribution width Auto Ratio (RBC) 13.8 % Normal 11.5-14.5 [facility] Comment on above: Performed By: #### U RINC ####[address] [address] Hematocrit Auto Volume Fraction (Bld) 42.1 % Normal 35-47 [facility] Comment on above: Performed By: #### U RINC ####[address] [address] Hemoglobin mass conc (Bld) 13.8 g/dL Normal 12.0-16.0 [facility] Comment on above: Performed By: #### U RINC ####[address] [address] MCH Auto Entitic mass (RBC) 32.5 pg Normal 27-34 [facility] Comment on above: Performed By: #### U RINC ####[address] [address] MCH Auto Entitic mass (RBC) 32.8 g/dL Low 33-37 [facility] Comment on above: Performed By: #### U RINC ####[address] [address] MCV Auto Entitic volume (RBC) 99.1 fL Normal 80-100 [facility] Comment on above: Performed By: #### U RINC ####[address] [address] Platelet mean volume Auto Entitic volume (Bld) 11.0 fL High 7.4-10.4 [facility] Comment on above: Performed By: #### U RINC ####[facility] [place] [address] Platelets Auto #/vol (Bld) 235 10 3/uL Normal 150-400 [facility] Comment on above: Performed By: #### U RINC ####[facility] [place] [address] RBC Auto #/vol (Bld) 4.25 10 6/uL Normal 4.2-5.4 [facility] Comment on above: Performed By: #### U RINC ####[facility] [place] [address] WBC Auto #/vol (Bld) 5.8 10 3/uL Normal 4.0-11.0 [facility] Comment on above: Performed By: #### U RINC ####[facility] [place] [address] Basic Metabolic Panel $$$on 10-18-2017 Anion gap 3 molar conc 14.0 mmol/L [facility] Comment on above: Performed By: #### U RINC ####[facility] [place] [address] Calcium mass conc 9.7 mg/dL Normal 8.5-10.1 [facility] Comment on above: Performed By: #### U RINC ####[facility] [place] [address] Chloride molar conc 106 mmol/L Normal 98-107 [facility] Comment on above: Performed By: #### U RINC ####[facility] [place] [address] CO2 molar conc 29 mmol/L Normal 21-32 [facility] Comment on above: Performed By: #### U RINC ####[facility] [place] [address] Creatinine mass conc 0.9 mg/dL Normal 0.6-1.3 [facility] Comment on above: Performed By: #### U RINC ####[facility] [place] [address], [place] [address] GFR () >60 Normal [facility] Comment on above: Performed By: #### U RINC ####[address] [address] GFR (Non ) >60 Normal [facility] Comment on above: Result Comment: eGFR Units of measure: mL/min/1.73 m 2 Performed By: #### U RINC ####[address] [address] Glucose mass conc 88 mg/dL Normal 74-106 [facility] Comment on above: Performed By: #### U RINC ####[address] [address] Potassium molar conc 4.0 mmol/L Normal 3.5-5.1 [facility] Comment on above: Performed By: #### U RINC ####[address] [address] Sodium molar conc 145 mmol/L Normal 136-145 [facility] Comment on above: Performed By: #### U RINC ####[facility] [place] [address] Urea nitrogen mass conc (Bld) 17 mg/dL Normal 7-18 [facility] Comment on above: Performed By: #### U RINC ####[facility] [place] [address] Urinalysison 10-11-2017 Clarity Nom (U) Clear Normal [facility] Comment on above: Performed By: #### U RINC ####[facility] [place] [address] Specific [place], Urine 1.005 Normal 1.000-1.030 [facility] Comment on above: Performed By: #### U RINC ####[facility] [place] [address] Bacteria LM.HPF #/area (Urine sed) Rare Normal 0 [facility] Comment on above: Performed By: #### U RINC ####[address] [address] Bilirubin, Urine Negative Normal Negative [facility] Comment on above: Performed By: #### U RINC ####[address] [address] Color Nom (U) Straw Normal [facility] Comment on above: Performed By: #### U RINC ####[address] [address] Epithelial Cells Rare Normal 0-5 [facility] Comment on above: Performed By: #### U RINC ####[address] [place] [address] Glucose Ql (U) Negative Normal Negative [facility] Comment on above: Performed By: #### U RINC ####[address] [place] [address] Hemoglobin Test strip Ql (U) Negative Normal Negative [facility] Comment on above: Performed By: #### U RINC ####[address] [place] [address] Ketones Ql (U) Negative Normal Negative [facility] Comment on above: Performed By: #### U RINC ####[facility] [place] [address], [place] [address] Leukocyte esterase Test strip Ql (U) Negative Normal Negative [facility] Comment on above: Performed By: #### U RINC ####[address] [address] Nitrates, Urine Negative Normal Negative [facility] Comment on above: Performed By: #### U RINC ####[address] [address] pH Test strip (U) 7 [pH] Normal 5.0-9.0 [facility] Comment on above: Performed By: #### U RINC ####[address] [address] Protein, Urine Negative Normal Negative [facility] Comment on above: Performed By: #### U RINC ####[address] [address] Urobilinogen, Urine Normal Normal <2.0 [facility] Comment on above: Performed By: #### U RINC ####[address] [address] WBC, Urine 0 /HPF Normal 0-2 [facility] Comment on above: Performed By: #### U RINC ####[address] [address] Urine Cultureon 10-11-2017 Bacteria identified Cx Nom (U) ---- RUN DATE: 10/12/17 [facility] LAB LIVE PAGE 1 RUN TIME: 0934 Specimen Inquiry ---- PATIENT: CARLINE VILLARREAL ACCT: [id number] LOC: PVNHLAB U: [id number] AGE/SX: 71/F ROOM: RE10/11/[address]: Grant Colon MD : 1945 BED: DIS: STATUS: REG RCR TLOC: ---- SPEC #: [id number] ASHOK: 10/11/17 STATUS: COMP REQ #: [id number] RECD: 10/11/[address]: Grant Colon MD SOURCE: URINE ENTR: 10/11/[address]: [facility] SPDESC: Urine Not ORDERED: Urine Culture ---- Procedure Result ---- > Urine Culture Final COMMENT PATIENT: CARLIEN VILLARREAL [place] [facility] [id number] : [birth year] AGE: SEX: F ORDERED BY: GRANT COLON SOURCE: URINE COLLECTED: 10/11/17 08:07 ANTIBIOTICS AT ASHOK.: RECEIVED : 10/11/17 17:12 SITE: URMD R E S U L T S URINE CULTURE,BACTERIAL FINAL 10/12/17 09:33 NO SIGNIFICANT GROWTH. Performing Site[facility] [address] [place] [address] ---- END OF REPORT Normal [facility] Comment on above: Performed By: #### U [facility] ####[facility] [place], [place] [address] Brain or Head without Contra ston 10-10-2017 Brain or Head without Contrast [facility] Patient: CARLINE VILLARRELA [address] [facility] MR#: [id number] [place], [place] [address] : [address] Marcelina Fam MD Dept: Diagnostic Imaging Loc: 1EDA DI REPORT Service Dt:10/10/17 Report#: [id number] Adm Dt: 10/09/17 Dis Dt: Comments: STUDY: CT Brain or Head without Contrast; 10/10/2017 2:03 am INDICATION: head injury. COMPARISON: None ACCESSION NUMBER(S): [id number] ORDERING CLINICIAN: Marcelina Fam TECHNIQUE: Contiguous axial [...] by: Asa West 10/10/2017 2:16 AM Normal [facility] Cervical Spine W/O Contrasto n 10-10-2017 Cervical Spine W/O Contrast [facility] Patient: CARLINE VILLARREAL [address] MR#: [id number] [place], [place] [address] : [address] Marcelina Fam MD Dept: Diagnostic Imaging Loc: 1EDA DI REPORT Service Dt:10/10/17 Report#: [id number] Adm Dt: 10/09/17 Dis Dt: Comments: STUDY: CT Cervical Spine W/O Contrast; 10/10/2017 2:03 am INDICATION: neck pain after falling off couch - 65 lb dog landed on him. COMPARISON: 05/07/2017 ACCESSION NUMBER(S): [id number] ORDERING CLINICIAN: Marcelina Fam TECHNIQUE: Contiguous axial [...] by: Asa West 10/10/2017 2:18 AM Normal [facility] Chest Portable Xray 1 viewon 10-10-2017 Chest Portable Xray 1 view [facility] Patient: CARLINE VILLARREAL [address] [facility] MR#: [id number] [place], [place] [address] : [address] Marcelina Fam MD Dept: Diagnostic Imaging Loc: 1EDA DI REPORT Service Dt:10/10/17 Report#: [id number] Adm Dt: 10/09/17 Dis Dt: Comments: STUDY: CR Chest Portable Xray 1 view; 10/10/2017 12:45 am INDICATION: Chest Pain. COMPARISON: 08/05/2017 ACCESSION NUMBER(S): [id number] ORDERING CLINICIAN: Marcelina Fam FINDINGS: Patient body [...] by: Lena Kaminski 10/10/2017 1:25 AM Normal [facility] Complete Blood Count w/diff $$on 10-10-2017 Basophils Auto #/vol (Bld) 0.0 10 /uL Low 0.04-0.9 [facility] Comment on above: Performed By: #### C BC, BMP, PHOS, MG, CK, UR, LDLP, URINC ####[facility] [place] [address] Basophils/100 WBC Auto (Bld) 1 % Normal 0-1 [facility] Comment on above: Performed By: #### C BC, BMP, PHOS, MG, CK, UR, LDLP, URINC ####[address] [address] Eosinophils Auto #/vol (Bld) 0.2 10 3/uL Normal 0.03-0.6 [facility] Comment on above: Performed By: #### C BC, BMP, PHOS, MG, CK, UR, LDLP, URINC ####[address] [address] Eosinophils/100 WBC Auto (Bld) 4 % High 0-3 [facility] Comment on above: Performed By: #### C BC, BMP, PHOS, MG, CK, UR, LDLP, URINC ####[address] [address] Erythrocyte distribution width Auto Ratio (RBC) 14.2 % Normal 11.5-14.5 [facility] Comment on above: Performed By: #### C BC, BMP, PHOS, MG, CK, UR, LDLP, URINC ####[address] [address] Hematocrit Auto Volume Fraction (Bld) 38.9 % Normal 35-47 [facility] Comment on above: Performed By: #### C BC, BMP, PHOS, MG, CK, UR, LDLP, URINC ####[address] [address] Hemoglobin mass conc (Bld) 12.8 g/dL Normal 12.0-16.0 [facility] Comment on above: Performed By: #### C BC, BMP, PHOS, MG, CK, UR, LDLP, URINC ####[address] [address] Immature Gran# (Auto) 0.0 10 3/uL Normal [facility] Comment on above: Performed By: #### C BC, BMP, PHOS, MG, CK, UR, LDLP, URINC ####[address] [address] Immature granulocytes #/vol (Bld) 0.4 % Normal 0.0-0.9 [facility] Comment on above: Performed By: #### C BC, BMP, PHOS, MG, CK, UR, LDLP, URINC ####[address] [address] Lymphocytes Auto #/vol (Bld) 1.1 10 3/uL Normal 1-3.5 [facility] Comment on above: Performed By: #### C BC, BMP, PHOS, MG, CK, UR, LDLP, URINC ####[address] [address] Lymphocytes/100 WBC Auto (Bld) 20 % Low 24-44 [facility] Comment on above: Performed By: #### C BC, BMP, PHOS, MG, CK, UR, LDLP, URINC ####[address] [address] MCH Auto Entitic mass (RBC) 32.5 pg Normal 27-34 [facility] Comment on above: Performed By: #### C BC, BMP, PHOS, MG, CK, UR, LDLP, URINC ####[address] [address] MCH Auto Entitic mass (RBC) 32.9 g/dL Low 33-37 [facility] Comment on above: Performed By: #### C BC, BMP, PHOS, MG, CK, UR, LDLP, URINC ####[address] [address] MCV Auto Entitic volume (RBC) 98.7 fL Normal 80-100 [facility] Comment on above: Performed By: #### C BC, BMP, PHOS, MG, CK, UR, LDLP, URINC ####[facility] [place] [address] Monocytes Auto #/vol (Bld) 0.6 10 3/uL Normal 0.04-0.9 [facility] Comment on above: Performed By: #### C BC, BMP, PHOS, MG, CK, UR, LDLP, URINC ####[address] [address] Monocytes/100 WBC Auto (Bld) 11 % High 1-8 [facility] Comment on above: Performed By: #### C BC, BMP, PHOS, MG, CK, UR, LDLP, URINC ####[address] [address] Neutrophils Auto #/vol (Bld) 3.5 10 3/uL Normal 1.8-7.0 [facility] Comment on above: Performed By: #### C BC, BMP, PHOS, MG, CK, UR, LDLP, URINC ####[address] [address] Neutrophils/100 WBC Auto (Bld) 64 % Normal 42-76 [facility] Comment on above: Performed By: #### C BC, BMP, PHOS, MG, CK, UR, LDLP, URINC ####[address] [address] Nucleated RBC/100 WBC Ratio (Bld) 0.0 % Normal 0.0-0.0 [facility] Comment on above: Performed By: #### C BC, BMP, PHOS, MG, CK, UR, LDLP, URINC ####[address] [address] Platelet mean volume Auto Entitic volume (Bld) 10.7 fL High 7.4-10.4 [facility] Comment on above: Performed By: #### C BC, BMP, PHOS, MG, CK, UR, LDLP, URINC ####[address] [address] Platelets Auto #/vol (Bld) 217 10 3/uL Normal 150-400 [facility] Comment on above: Performed By: #### C BC, BMP, PHOS, MG, CK, UR, LDLP, URINC ####[address] [address] RBC Auto #/vol (Bld) 3.94 10 6/uL Low 4.2-5.4 [facility] Comment on above: Performed By: #### C BC, BMP, PHOS, MG, CK, UR, LDLP, URINC ####[address] [address] WBC Auto #/vol (Bld) 5.4 10 3/uL Normal 4.0-11.0 [facility] Comment on above: Performed By: #### C BC, BMP, PHOS, MG, CK, UR, LDLP, URINC ####[address] [address] Comprehensive Metabolic Pane mandeep 10-10-2017 Albumin mass conc 3.6 g/dL Normal 3.4-5.0 [facility] Comment on above: Performed By: #### C BC, BMP, PHOS, MG, CK, UR, LDLP, URINC ####[address] [address] ALP enzyme act/vol 137 U/L High 50-136 [facility] Comment on above: Performed By: #### C BC, BMP, PHOS, MG, CK, UR, LDLP, URINC ####[address] [address] ALT enzyme act/vol 21 U/L Normal 12-78 [facility] Comment on above: Performed By: #### C BC, BMP, PHOS, MG, CK, UR, LDLP, URINC ####[address] [address] Anion gap 3 molar conc 13.9 mmol/L Normal P [facility] Comment on above: Performed By: #### C BC, BMP, PHOS, MG, CK, UR, LDLP, URINC ####[facility] [place] [address] AST enzyme act/vol 17 U/L Normal 15-37 [facility] Comment on above: Performed By: #### C BC, BMP, PHOS, MG, CK, UR, LDLP, URINC ####[facility] [place] [address] Bilirubin Ql (U) 0.4 mg/dL Normal 0.2-1.0 [facility] Comment on above: Performed By: #### C BC, BMP, PHOS, MG, CK, UR, LDLP, URINC ####[address] [address] Calcium mass conc 8.6 mg/dL Normal 8.5-10.1 [facility] Comment on above: Performed By: #### C BC, BMP, PHOS, MG, CK, UR, LDLP, URINC ####[facility] [place] [address] Chloride molar conc 104 mmol/L Normal 98-107 [facility] Comment on above: Performed By: #### C BC, BMP, PHOS, MG, CK, UR, LDLP, URINC ####[facility] [place] [address] CO2 molar conc 26 mmol/L Normal 21-32 [facility] Comment on above: Performed By: #### C BC, BMP, PHOS, MG, CK, UR, LDLP, URINC ####[facility] [place] [address] Creatinine mass conc 0.8 mg/dL Normal 0.6-1.3 [facility] Comment on above: Performed By: #### C BC, BMP, PHOS, MG, CK, UR, LDLP, URINC ####[address] [address] Estimated Creatinine Clearance 51 mL/min Low 75-115 [facility] Comment on above: Performed By: #### C BC, BMP, PHOS, MG, CK, UR, LDLP, URINC ####[address] [address] GFR () >60 Normal [facility] Comment on above: Performed By: #### C BC, BMP, PHOS, MG, CK, UR, LDLP, URINC ####[address] [address] GFR (Non ) >60 Normal [facility] Comment on above: Result Comment: eGFR Units of measure: mL/min/1.73 m 2 Performed By: #### C BC, BMP, PHOS, MG, CK, UR, LDLP, URINC ####[address] [address] Glucose mass conc 110 mg/dL High 74-106 [facility] Comment on above: Performed By: #### C BC, BMP, PHOS, MG, CK, UR, LDLP, URINC ####[address] [address] Potassium molar conc 3.9 mmol/L Normal 3.5-5.1 [facility] Comment on above: Performed By: #### C BC, BMP, PHOS, MG, CK, UR, LDLP, URINC ####[address] [address] Protein mass conc 6.4 g/dL Normal 6.4-8.2 [facility] Comment on above: Performed By: #### C BC, BMP, PHOS, MG, CK, UR, LDLP, URINC ####[facility] [place] [address] Sodium molar conc 140 mmol/L Normal 136-145 [facility] Comment on above: Performed By: #### C BC, BMP, PHOS, MG, CK, UR, LDLP, URINC ####[facility] [place] [address] Urea nitrogen mass conc (Bld) 21 mg/dL High 7-18 [facility] Comment on above: Performed By: #### C BC, BMP, PHOS, MG, CK, UR, LDLP, URINC ####[facility] [place] [address] ED Visit Summaryon 8 ED Visit Summary [facility] Patient: CARLINE VILLARREAL [address] [facility] MR#: [id number] [place], [place] [address] : 1945 Ord[address] : Dept: Emergency Department Loc: 1EDA ER Physician Documentation Service Dt: 10/10/17 Report#: [id number] Adm Dt: 10/09/17 Dis Dt: 10/10/17 Patient Information - Chief Complaint Initial Complaint: FALL Chief Complaint: Fall Additional Complaints: Bilateral Arm and shoulder pain - Nursing Triage Note Nursing Triage Note: Pt. arrives to ED via EMS from [facility] with c/o fall. Pt. was getting [...] (Auto) 64 Lymph % (Auto) 20 L [place] % (Auto) 11 H Eos % (Auto) 4 H Baso % (Auto) 1 Nucleat RBC Rel Count 0.0 Immature Gran # (Auto) 0.0 Neut # (Auto) 3.5 Lymph # (Auto) 1.1 [place] # (Auto) 0.6 Eos # (Auto) 0.2 [...] is stable for discharge back to her half-way after negative workup here. She was informed [...] (Auto) 64 Lymph % (Auto) 20 L [place] % (Auto) 11 H Eos % (Auto) 4 H Baso % (Auto) 1 Nucleat RBC Rel Count 0.0 Immature Gran # (Auto) 0.0 Neut # (Auto) 3.5 Lymph # (Auto) 1.1 [place] # (Auto) 0.6 Eos # (Auto) 0.2 [...] or 2 risk factors (1) Troponin: Normal [facility] Humerus Left - Min 2 Viewson 10-10-2017 Humerus Left - Min 2 Views [facility] Patient: CARLINE VILLARREAL [address] MR#: [id number] [place], [place] [address] : 1945 [address] .: Marcelina Fam MD Dept: Diagnostic Imaging Loc: 1EDA DI REPORT Service Dt:10/10/17 Report#: [id number] Adm Dt: 10/09/17 Dis Dt: Comments: STUDY: CR Humerus Left - Min 2 Views; CR Shoulder Left - Min 2 Views; 10/10/2017 2:30 am INDICATION: fall with pain. COMPARISON: 06/05/2013 humerus radiographs, 09/20/2012 shoulder radiograph. ACCESSION NUMBER(S): [id number]; [id number] ORDERING CLINICIAN: Marcelina Fam FINDINGS: Partial left [...] by: Lena Kaminski 10/10/2017 2:52 AM Normal [facility] Humerus Right - Min 2 Viewso n 10-10-2017 Humerus Right - Min 2 Views [facility] Patient: CARLINE VILLARREAL [address] [facility] MR#: [id number] [place], [place] [address] : [address] Marcelina Fam MD Dept: Diagnostic Imaging Loc: 1EDA DI REPORT Service Dt:10/10/17 Report#: [id number] Adm Dt: 10/09/17 Dis Dt: Comments: STUDY: CR Humerus Right - Min 2 Views; CR Shoulder Right -Min 2 Views; 10/10/2017 2:30 am INDICATION: fall with pain. COMPARISON: Humerus 06/05/2013, right shoulder 01/30/2011 ACCESSION NUMBER(S): [id number]; [id number] ORDERING CLINICIAN: Marcelina Fam FINDINGS: Status post [...] by: Lena Kaminski 10/10/2017 2:56 AM Normal [facility] Shoulder Left - Min 2 Viewso n 10-10-2017 Shoulder Left - Min 2 Views [facility] Patient: CARLINE VILLARREAL [address] [facility] MR#: [id number] [place], [place] [address] : [address] Marcelina Fam MD Dept: Diagnostic Imaging Loc: 1EDA DI REPORT Service Dt:10/10/17 Report#: [id number] Adm Dt: 10/09/17 Dis Dt: Comments: STUDY: CR Humerus Left - Min 2 Views; CR Shoulder Left - Min 2 Views; 10/10/2017 2:30 am INDICATION: fall with pain. COMPARISON: 06/05/2013 humerus radiographs, 09/20/2012 shoulder radiograph. ACCESSION NUMBER(S): [id number]; [id number] ORDERING CLINICIAN: Marcelina Fam FINDINGS: Partial left [...] by: Lena Kaminski 10/10/2017 2:52 AM Normal [facility] Shoulder Right -Min 2 Viewso n 10-10-2017 Shoulder Right -Min 2 Views [facility] Patient: CARLINE VILLARREAL [address] [facility] MR#: [id number] [place], [place] [address] : [address] Marcelina Fam MD Dept: Diagnostic Imaging Loc: 1EDA DI REPORT Service Dt:10/10/17 Report#: [id number] Adm Dt: 10/09/17 Dis Dt: Comments: STUDY: CR Humerus Right - Min 2 Views; CR Shoulder Right -Min 2 Views; 10/10/2017 2:30 am INDICATION: fall with pain. COMPARISON: Humerus 06/05/2013, right shoulder 01/30/2011 ACCESSION NUMBER(S): [id number]; [id number] ORDERING CLINICIAN: Marcelina Fam FINDINGS: Status post [...] by: Lena Kaminski 10/10/2017 2:56 AM Normal [facility] Troponin Ion 10-10-2017 Troponin I.cardiac mass conc ng/mL Normal 0.00-0.045 [facility] Comment on above: Performed By: #### C BC, BMP, PHOS, MG, CK, UR, LDLP, URINC ####[address] [address] Automated blood count $$on 0 08-21-2017 Erythrocyte distribution width Auto Ratio (RBC) 14.3 % Normal 11.5-14.5 [facility] Comment on above: Performed By: #### C BC, BMP, PHOS, MG, CK, UR, LDLP, URINC ####[address] [address] Hematocrit Auto Volume Fraction (Bld) 38.5 % Normal 35-47 [facility] Comment on above: Performed By: #### C BC, BMP, PHOS, MG, CK, UR, LDLP, URINC ####[address] [address] Hemoglobin mass conc (Bld) 12.7 g/dL Normal 12.0-16.0 [facility] Comment on above: Performed By: #### C BC, BMP, PHOS, MG, CK, UR, LDLP, URINC ####[address] [address] MCH Auto Entitic mass (RBC) 31.8 pg Normal 27-34 [facility] Comment on above: Performed By: #### C BC, BMP, PHOS, MG, CK, UR, LDLP, URINC ####[address] [address] MCH Auto Entitic mass (RBC) 33.0 g/dL Normal 33-37 [facility] Comment on above: Performed By: #### C BC, BMP, PHOS, MG, CK, UR, LDLP, URINC ####[address] [address] MCV Auto Entitic volume (RBC) 96.5 fL Normal 80-100 [facility] Comment on above: Performed By: #### C BC, BMP, PHOS, MG, CK, UR, LDLP, URINC ####[address] [address] Platelet mean volume Auto Entitic volume (Bld) 10.4 fL Normal 7.4-10.4 [facility] Comment on above: Performed By: #### C BC, BMP, PHOS, MG, CK, UR, LDLP, URINC ####[address] [address] Platelets Auto #/vol (Bld) 161 10 3/uL Normal 150-400 [facility] Comment on above: Performed By: #### C BC, BMP, PHOS, MG, CK, UR, LDLP, URINC ####[address] [address] RBC Auto #/vol (Bld) 3.99 10 6/uL Low 4.2-5.4 [facility] Comment on above: Performed By: #### C BC, BMP, PHOS, MG, CK, UR, LDLP, URINC ####[address] [address] WBC Auto #/vol (Bld) 3.5 10 3/uL Low 4.0-11.0 [facility] Comment on above: Performed By: #### C BC, BMP, PHOS, MG, CK, UR, LDLP, URINC ####[address] [address] Basic Metabolic Panel $$$on 08-21-2017 Anion gap 3 molar conc 11.9 mmol/L Normal P [facility] Comment on above: Performed By: #### C BC, BMP, PHOS, MG, CK, UR, LDLP, URINC ####[facility] [place] [address] Calcium mass conc 8.4 mg/dL Low 8.5-10.1 [facility] Comment on above: Performed By: #### C BC, BMP, PHOS, MG, CK, UR, LDLP, URINC ####[facility] [place] [address] Chloride molar conc 103 mmol/L Normal 98-107 [facility] Comment on above: Performed By: #### C BC, BMP, PHOS, MG, CK, UR, LDLP, URINC ####[address] [address] CO2 molar conc 29 mmol/L Normal 21-32 [facility] Comment on above: Performed By: #### C BC, BMP, PHOS, MG, CK, UR, LDLP, URINC ####[facility] [place] [address] Creatinine mass conc 0.7 mg/dL Normal 0.6-1.3 [facility] Comment on above: Performed By: #### C BC, BMP, PHOS, MG, CK, UR, LDLP, URINC ####[address] [address] GFR () >60 Normal [facility] Comment on above: Performed By: #### C BC, BMP, PHOS, MG, CK, UR, LDLP, URINC ####[facility] [place] [address] GFR (Non ) >60 Normal [facility] Comment on above: Result Comment: eGFR Units of measure: mL/min/1.73 m 2 Performed By: #### C BC, BMP, PHOS, MG, CK, UR, LDLP, URINC ####[address] [address] Glucose mass conc 87 mg/dL Normal 74-106 [facility] Comment on above: Performed By: #### C BC, BMP, PHOS, MG, CK, UR, LDLP, URINC ####[address] [address] Potassium molar conc 4.9 mmol/L Normal 3.5-5.1 [facility] Comment on above: Performed By: #### C BC, BMP, PHOS, MG, CK, UR, LDLP, URINC ####[address] [address] Sodium molar conc 139 mmol/L Normal 136-145 [facility] Comment on above: Performed By: #### C BC, BMP, PHOS, MG, CK, UR, LDLP, URINC ####[address] [address] Urea nitrogen mass conc (Bld) 18 mg/dL Normal 7-18 [facility] Comment on above: Performed By: #### C BC, BMP, PHOS, MG, CK, UR, LDLP, URINC ####[address] [address] Influenza A/B Antigen Rapido n 08-20-2017 Influenza A/B Antigen Rapid ---- RUN DATE: 08/20/17 [facility] LAB LIVE PAGE 1 RUN TIME: 2131 Specimen Inquiry ---- PATIENT: CARLINE VILLARREAL ACCT: [id number] LOC: PVNHLAB U: [id number] AGE/SX: 71/F ROOM: RE08/10/[address]: Grant Colon MD : 1945 BED: DIS: STATUS: REG RCR TLOC: ---- SPEC #: [id number] ASHOK: 08/20/17-UNK STATUS: COMP REQ #: [id number] RECD: 08/20/[address]: Grant Colon MD SOURCE: Nasopharyn ENTR: 08/20/[address] [facility] [address]: [facility] SPDESC: ORDERED: Influenza A/B COMMENTS: Results called, Read Back and verified to Chucky BARNARD AT 0630 ON [id number] SP. ---- Procedure Result ---- > Flu [...] virus subtype. ---- END OF REPORT Normal [facility] Comment on above: Performed By: #### C BC, BMP, PHOS, MG, CK, UR, LDLP, URINC ####[address] [address] Urinalysison 08-20-2017 Bilirubin, Urine Negative Normal Negative [facility] Comment on above: Performed By: #### C BC, BMP, PHOS, MG, CK, UR, LDLP, URINC ####[address] [address] Clarity Nom (U) Clear Normal [facility] Comment on above: Performed By: #### C BC, BMP, PHOS, MG, CK, UR, LDLP, URINC ####[address] [address] Color Nom (U) Yellow Normal [facility] Comment on above: Performed By: #### C BC, BMP, PHOS, MG, CK, UR, LDLP, URINC ####[address] [address] Epithelial Cells Rare Normal 0-5 [facility] Comment on above: Performed By: #### C BC, BMP, PHOS, MG, CK, UR, LDLP, URINC ####[address] [address] Glucose Ql (U) Negative Normal Negative [facility] Comment on above: Performed By: #### C BC, BMP, PHOS, MG, CK, UR, LDLP, URINC ####[address] [address] Hemoglobin Test strip Ql (U) Negative Normal Negative [facility] Comment on above: Performed By: #### C BC, BMP, PHOS, MG, CK, UR, LDLP, URINC ####[address] [address] Ketones Ql (U) Negative Normal Negative [facility] Comment on above: Performed By: #### C BC, BMP, PHOS, MG, CK, UR, LDLP, URINC ####[address] [address] Leukocyte esterase Test strip Ql (U) Negative Normal Negative [facility] Comment on above: Performed By: #### C BC, BMP, PHOS, MG, CK, UR, LDLP, URINC ####[address] [address] Nitrates, Urine Negative Normal Negative [facility] Comment on above: Performed By: #### C BC, BMP, PHOS, MG, CK, UR, LDLP, URINC ####[address] [address] pH Test strip (U) 5.0 [pH] Normal 5.0-9.0 [facility] Comment on above: Performed By: #### C BC, BMP, PHOS, MG, CK, UR, LDLP, URINC ####[address] [address] Protein, Urine Negative Normal Negative [facility] Comment on above: Performed By: #### C BC, BMP, PHOS, MG, CK, UR, LDLP, URINC ####[address] [address] RBC LM.HPF #/area (Urine sed) 1-3 Normal 0-3 [facility] Comment on above: Performed By: #### C BC, BMP, PHOS, MG, CK, UR, LDLP, URINC ####[address] [address] Specific [place], Urine 1.015 Normal 1.000-1.030 [facility] Comment on above: Performed By: #### C BC, BMP, PHOS, MG, CK, UR, LDLP, URINC ####[address] [address] Urobilinogen, Urine Normal Normal <2.0 [facility] Comment on above: Performed By: #### C BC, BMP, PHOS, MG, CK, UR, LDLP, URINC ####[address] [address] WBC, Urine 0 /HPF Normal 0-2 [facility] Comment on above: Performed By: #### C BC, BMP, PHOS, MG, CK, UR, LDLP, URINC ####[address] [address] Urine Cultureon 08-20-2017 Bacteria identified Cx Nom (U) ---- RUN DATE: 08/22/17 [facility] LAB LIVE PAGE 1 RUN TIME: 739 Specimen Inquiry ---- PATIENT: CARLINE VILLARREAL ACCT: [id number] LOC: PVNHLAB U: [id number] AGE/SX: 71/F ROOM: RE08/21/[address]: Grant Colon MD : 1945 BED: DIS: STATUS: REG RCR TLOC: ---- SPEC #: [id number] ASHOK: 08/20/17-UNK STATUS: COMP REQ #: [id number] RECD: 08/20/17-[address]: Grant Colon MD SOURCE: URINE ENTR: 08/20/[address]: [facility] SPDESC: CLEAN CATC ORDERED: Urine Culture ---- Procedure Result ---- > Urine Culture Final COMMENT PATIENT: CARLINE VILLARREAL [place] [id number] : [birth year] AGE: SEX: F ORDERED BY: GRANT COLON SOURCE: URINE COLLECTED: 08/20/17 00:00 ANTIBIOTICS AT ASHOK.: RECEIVED : 08/21/17 00:42 SITE: CLEAN CATCH R E S U L T S URINE CULTURE,BACTERIAL FINAL 08/22/17 07:38 NO SIGNIFICANT GROWTH. [facility] [address] [place] [address] ---- END OF REPORT Normal [facility] Comment on above: Performed By: #### C BC, BMP, PHOS, MG, CK, UR, LDLP, URINC ####[address] [address] Automated blood count $$on 0 08-10-2017 Erythrocyte distribution width Auto Ratio (RBC) 14.1 % Normal 11.5-14.5 [facility] Comment on above: Performed By: #### C BC, BMP, PHOS, MG, CK, UR, LDLP, URINC ####[address] [address] Hematocrit Auto Volume Fraction (Bld) 42.2 % Normal 35-47 [facility] Comment on above: Performed By: #### C BC, BMP, PHOS, MG, CK, UR, LDLP, URINC ####[address] [address] Hemoglobin mass conc (Bld) 14.0 g/dL Normal 12.0-16.0 [facility] Comment on above: Performed By: #### C BC, BMP, PHOS, MG, CK, UR, LDLP, URINC ####[facility] [place] [address] MCH Auto Entitic mass (RBC) 32.0 pg Normal 27-34 [facility] Comment on above: Performed By: #### C BC, BMP, PHOS, MG, CK, UR, LDLP, URINC ####[address] [address] MCH Auto Entitic mass (RBC) 33.2 g/dL Normal 33-37 [facility] Comment on above: Performed By: #### C BC, BMP, PHOS, MG, CK, UR, LDLP, URINC ####[address] [address] MCV Auto Entitic volume (RBC) 96.3 fL Normal 80-100 [facility] Comment on above: Performed By: #### C BC, BMP, PHOS, MG, CK, UR, LDLP, URINC ####[address] [address] Platelet mean volume Auto Entitic volume (Bld) 11.1 fL High 7.4-10.4 [facility] Comment on above: Performed By: #### C BC, BMP, PHOS, MG, CK, UR, LDLP, URINC ####[address] [address] Platelets Auto #/vol (Bld) 222 10 3/uL Normal 150-400 [facility] Comment on above: Performed By: #### C BC, BMP, PHOS, MG, CK, UR, LDLP, URINC ####[address] [address] RBC Auto #/vol (Bld) 4.38 10 6/uL Normal 4.2-5.4 [facility] Comment on above: Performed By: #### C BC, BMP, PHOS, MG, CK, UR, LDLP, URINC ####[facility] [place] [address] WBC Auto #/vol (Bld) 6.4 10 3/uL Normal 4.0-11.0 [facility] Comment on above: Performed By: #### C BC, BMP, PHOS, MG, CK, UR, LDLP, URINC ####[address] [address] Basic Metabolic Panel $$$on 08-10-2017 Anion gap 3 molar conc 12.3 mmol/L Normal [facility] Comment on above: Performed By: #### C BC, BMP, PHOS, MG, CK, UR, LDLP, URINC ####[address] [address] Calcium mass conc 9.0 mg/dL Normal 8.5-10.1 [facility] Comment on above: Performed By: #### C BC, BMP, PHOS, MG, CK, UR, LDLP, URINC ####[address] [address] Chloride molar conc 104 mmol/L Normal 98-107 [facility] Comment on above: Performed By: #### C BC, BMP, PHOS, MG, CK, UR, LDLP, URINC ####[address] [address] CO2 molar conc 28 mmol/L Normal 21-32 [facility] Comment on above: Performed By: #### C BC, BMP, PHOS, MG, CK, UR, LDLP, URINC ####[address] [address] Creatinine mass conc 0.8 mg/dL Normal 0.6-1.3 [facility] Comment on above: Performed By: #### C BC, BMP, PHOS, MG, CK, UR, LDLP, URINC ####[address] [address] GFR () >60 Normal [facility] Comment on above: Performed By: #### C BC, BMP, PHOS, MG, CK, UR, LDLP, URINC ####[address] [address] GFR (Non ) >60 Normal [facility] Comment on above: Result Comment: eGFR Units of measure: mL/min/1.73 m 2 Performed By: #### C BC, BMP, PHOS, MG, CK, UR, LDLP, URINC ####[address] [address] Glucose mass conc 81 mg/dL Normal 74-106 [facility] Comment on above: Performed By: #### C BC, BMP, PHOS, MG, CK, UR, LDLP, URINC ####[address] [address] Potassium molar conc 4.3 mmol/L Normal 3.5-5.1 [facility] Comment on above: Performed By: #### C BC, BMP, PHOS, MG, CK, UR, LDLP, URINC ####[address] [address] Sodium molar conc 140 mmol/L Normal 136-145 [facility] Comment on above: Performed By: #### C BC, BMP, PHOS, MG, CK, UR, LDLP, URINC ####[address] [address] Urea nitrogen mass conc (Bld) 22 mg/dL High 7-18 [facility] Comment on above: Performed By: #### C BC, BMP, PHOS, MG, CK, UR, LDLP, URINC ####[facility] [place] [address] Brain or Head without Contra ston 08-06-2017 Brain or Head without Contrast [facility] Patient: CARLINE VILLARREAL MR#: [id number] [place], [place] [address] : [address] Grant Colon MD Dept: Diagnostic Imaging Loc: 3MED-ONC 346-1 DI REPORT Service Dt:08/06/17 Report#: [id number] Adm Dt: 08/05/17 Dis Dt: Comments: HISTORY OF STROKE STUDY: CT Brain or Head without Contrast; 08/06/2017 2:00 pm INDICATION: cva. COMPARISON: 06/24/2017 ACCESSION NUMBER(S): [id number] ORDERING CLINICIAN: Grant Colon TECHNIQUE: Noncontrast axial [...] by: Liz Ramos 08/06/2017 2:08 PM Normal [facility] Discharge Summaryon 08-06-19 Discharge Summary [facility] Patient: CARLINE VILLARREAL MR#: [id number] [place], [place] [address] : 1945 [facility]#: [id number] Ord[address] Draper: Dept: PDOC Loc: 3MED-ONC 346-1 Discharge Summary Service Dt: 08/06/17 Report#: [id number] Adm Dt: 08/05/17 Dis Dt: 08/06/17 Discharge [...] is discharged in stable condition to a [facility] facility. Patient is advised to return to [...] Diet: Diet Regular Diet - Consistency Start WedAug 06 Breakfast Referrals: Grant Colon MD [Family Provider] [...] tab 08/06/17 [Percocet 325 mg-5 mg] Normal [facility] ED Visit Summaryon 8 ED Visit Summary [facility] Patient: CARLINE VILLARREAL [address] MR#: [id number] [place], [place] [address] : 1945 [address] .: Dept: Emergency Department Loc: 1EDA ER Physician Documentation Service Dt: 08/05/17 Report#: [id number] Adm Dt: 08/05/17 Dis Dt: ED-Sign Out Completion - Labs Lab Data: Lab Results 08/05/17 20:00 WBC 7.6 RBC 4.57 Hgb 14.4 Hct 43.2 MCV 94.5 MCH 31.5 MCHC 33.3 RDW 13.9 Plt Count 242 MPV 10.9 H Immature Gran % (Auto) 0.4 Neut % (Auto) 73 Lymph % (Auto) 19 L [place] % (Auto) 6 Eos % (Auto) 1 Baso % (Auto) 1 Nucleat RBC Rel Count 0.0 Immature Gran # (Auto) 0.0 Neut # (Auto) 5.5 Lymph # (Auto) 1.5 [place] # (Auto) 0.4 Eos # (Auto) 0.1 [...] Harman MD, MPH Emergency Medicine Attending Physician [facility] ED Physician Disposition - Clinical Impression Clinical Impression: Impaired ambulation, Musculoskeletal strain Contusion of Rib Qualifiers: Encounter type: initial encounter Laterality: left Qualified Code(s): S20.212A - Contusion of left front wall of thorax, initial encounter - Discharge Normal [facility] History AND Physicalon 08-06 History AND Physical [facility] Patient: CARLINE VILLARREAL [address] [facility] MR#: [id number] [place], [place] [address] : 1945 [address] : Dept: PDOC Loc: 3MED-ONC 346-1 History Physical Service Dt: 08/06/17 Report#: [id number] Adm Dt: 08/05/17 Dis Dt: History and [...] patient was residing with her son in [place]. During this time, she was having trouble [...] (Auto) 73 Lymph % (Auto) 19 L [place] % (Auto) 6 Eos % (Auto) 1 Baso % (Auto) 1 Nucleat RBC Rel Count 0.0 Immature Gran # (Auto) 0.0 Neut # (Auto) 5.5 Lymph # (Auto) 1.5 [place] # (Auto) 0.4 Eos # (Auto) 0.1 [...] Changes noted below: Date/Time Attending Physician Normal [facility] Progress Noteson 08-06-2017 Protein mass conc [facility] Patient: CARLINE VILLARREAL [address] MR#: [id number] [place], [place] [address] : 1945 Ord[address] Draper: Dept: PDOC Loc: 3MED-ONC 346-1 Physician Progress Note Service Dt: 08/06/17 Report#: [id number] Adm Dt: 08/05/17 Dis Dt: Note - Patient Note Observation: 08/06/17 13:17 Patient fully evaluated with resident team. Agree with resident note. Patient slightly decreased motor strength since discharge from her [facility]. Will require further rehabilitation Normal [facility] Urinalysison 08-06-2017 Bilirubin, Urine Negative Normal Negative [facility] Comment on above: Performed By: #### C BC, BMP, PHOS, MG, CK, UR, LDLP, URINC ####[place] [id number] Clarity Nom (U) Clear Normal [facility] Comment on above: Performed By: #### C BC, BMP, PHOS, MG, CK, UR, LDLP, URINC ####[place] [id number] Color Nom (U) Yellow Normal [facility] Comment on above: Performed By: #### C BC, BMP, PHOS, MG, CK, UR, LDLP, URINC ####[place] [id number] Epithelial Cells Rare Normal 0-5 [facility] Comment on above: Performed By: #### C BC, BMP, PHOS, MG, CK, UR, LDLP, URINC ####[place] [id number] Glucose Ql (U) Negative Normal Negative [facility] Comment on above: Performed By: #### C BC, BMP, PHOS, MG, CK, UR, LDLP, URINC ####[place] [id number] Hemoglobin Test strip Ql (U) Negative Normal Negative [facility] Comment on above: Performed By: #### C BC, BMP, PHOS, MG, CK, UR, LDLP, URINC ####[place] [id number] Hyaline Casts, Urine 0-5 Normal [facility] Comment on above: Performed By: #### C BC, BMP, PHOS, MG, CK, UR, LDLP, URINC ####[place] [id number] Ketones Ql (U) Negative Normal Negative [facility] Comment on above: Performed By: #### C BC, BMP, PHOS, MG, CK, UR, LDLP, URINC ####[address] [address] Leukocyte esterase Test strip Ql (U) 3+ Abnormal Negative [facility] Comment on above: Performed By: #### C BC, BMP, PHOS, MG, CK, UR, LDLP, URINC ####[address] [address] Nitrates, Urine Negative Normal Negative [facility] Comment on above: Performed By: #### C BC, BMP, PHOS, MG, CK, UR, LDLP, URINC ####[address] [address] pH Test strip (U) 7.0 [pH] Normal 5.0-9.0 [facility] Comment on above: Performed By: #### C BC, BMP, PHOS, MG, CK, UR, LDLP, URINC ####[address] [address] Protein, Urine Negative Normal Negative [facility] Comment on above: Performed By: #### C BC, BMP, PHOS, MG, CK, UR, LDLP, URINC ####[address] [address] RBC LM.HPF #/area (Urine sed) 1-3 Normal 0-3 [facility] Comment on above: Performed By: #### C BC, BMP, PHOS, MG, CK, UR, LDLP, URINC ####[address] [address] Renal Epithelial Cells, Urine 1 /HPF Normal [facility] Comment on above: Performed By: #### C BC, BMP, PHOS, MG, CK, UR, LDLP, URINC ####[address] [address] Specific [place], Urine 1.008 Normal 1.000-1.030 [facility] Comment on above: Performed By: #### C BC, BMP, PHOS, MG, CK, UR, LDLP, URINC ####[address] [address] Urobilinogen, Urine Normal Normal <2.0 [facility] Comment on above: Performed By: #### C BC, BMP, PHOS, MG, CK, UR, LDLP, URINC ####[address] [address] WBC LM.HPF #/area (Urine sed) 5-10 Abnormal 0-2 [facility] Comment on above: Performed By: #### C BC, BMP, PHOS, MG, CK, UR, LDLP, URINC ####[address] [address] Urine Cultureon 08-06-2017 Bacteria identified Cx Nom (U) ---- RUN DATE: 08/07/17 [facility] LAB LIVE PAGE 1 RUN TIME: 48 Specimen Inquiry ---- PATIENT: CARLINE VILLARREAL ACCT: [id number] LOC: 3MED-ONC U: [id number] AGE/SX: 71/F ROOM: 346 RE08/05/[address]: Grant Colon MD : 1945 BED: 1 DIS: 08/06/17 STATUS: DIS Kendra TLOC: ---- SPEC #: [id number] ASHOK: 08/06/17 STATUS: COMP REQ #: [id number] RECD: 08/06/17-[address] [facility] [address]: Grant Colon MD SOURCE: URINE ENTR: 08/06/17-[address]: [facility] CLEAN CATC ORDERED: Urine Culture ---- Procedure Result ---- > Urine Culture Final COMMENT PATIENT: CARLINE VILLARREAL LOCATION: [id number] BILL#: [id number] : 45 AGE: SEX: F ORDERED BY: GRANT COLON SOURCE: URINE COLLECTED: 08/06/17 07:55 ANTIBIOTICS AT ASHOK.: RECEIVED : 08/06/17 17:06 SITE: CLEAN CATCH R E S U L T S URINE CULTURE,BACTERIAL FINAL 08/07/17 09:47 MIXED URETHRAL ANDREW. [facility]forming [facility] [address] [place] [address] ---- END OF REPORT Normal [facility] Comment on above: Performed By: #### C BC, BMP, PHOS, MG, CK, UR, LDLP, URINC ####[address] [id number] Urine Tox Screenon 8 Amphetamines, Ur $ Negative Normal NEG [facility] Comment on above: Performed By: #### C BC, BMP, PHOS, MG, CK, UR, LDLP, URINC ####[address] [address] Barbiturates, Ur Negative Normal NEG [facility] Comment on above: Performed By: #### C BC, BMP, PHOS, MG, CK, UR, LDLP, URINC ####[address] [address] Benzodiazepine, Ur Negative Normal NEG [facility] Comment on above: Performed By: #### C BC, BMP, PHOS, MG, CK, UR, LDLP, URINC ####[address] [address] Cocaine, Ur Negative Normal NEG [facility] Comment on above: Performed By: #### C BC, BMP, PHOS, MG, CK, UR, LDLP, URINC ####[address] [address] Methamphetamine, Ur Negative Normal NEG [facility] Comment on above: Performed By: #### C BC, BMP, PHOS, MG, CK, UR, LDLP, URINC ####[place] [id number] Opiates, Ur Negative Normal NEG [facility] Comment on above: Performed By: #### C BC, BMP, PHOS, MG, CK, UR, LDLP, URINC ####[place] [id number] Phencyclidine, Ur Negative Normal NEG [facility] Comment on above: Performed By: #### C BC, BMP, PHOS, MG, CK, UR, LDLP, URINC ####[place] [id number] Tetrahydrocannabinol, Ur Negative Normal NEG [facility] Comment on above: Performed By: #### C BC, BMP, PHOS, MG, CK, UR, LDLP, URINC ####[place] [id number] Tricyclic Antidepressants, Ur Negative Normal NEG [facility] Comment on above: Performed By: #### C BC, BMP, PHOS, MG, CK, UR, LDLP, URINC ####[place] [phone] Comment Normal [facility] Comment on above: Result Comment: Unco nfirmed Screening ResultsResults are to be used only for medical (i.e., treatment)purposes. Unconfirmed screening results must not be used fornon-medical purposes (e.g., employment testing, legaltesting). Performed By: #### C BC, BMP, PHOS, MG, CK, UR, LDLP, URINC ####[place] [id number] Chest Single Xray 1 viewon 0 08-05-2017 Chest Single Xray 1 view [facility] Patient: CARLINE VILLARREAL [address] [facility] MR#: [id number] [place] [id number] : [address] Judd Black PA-C Dept: Diagnostic Imaging Loc: 1EDA DI REPORT Service Dt:08/05/17 Report#: [id number] Adm Dt: 08/05/17 Dis Dt: Comments: STUDY: CR Chest Single Xray 1 view; 08/05/2017 6:40 pm INDICATION: arm pain. COMPARISON: 06/24/2017 ACCESSION NUMBER(S): [id number] ORDERING CLINICIAN: Judd Black FINDINGS: LINES, TUBES, [...] by: Lena Kaminski 08/05/2017 6:51 PM Normal [facility] Complete Blood Count w/diff $$on 08-05-2017 Basophils Auto #/vol (Bld) 0.0 10 /uL Low 0.04-0.9 [facility] Comment on above: Performed By: #### C BC, BMP, PHOS, MG, CK, UR, LDLP, URINC ####[address] [address] Basophils/100 WBC Auto (Bld) 1 % Normal 0-1 [facility] Comment on above: Performed By: #### C BC, BMP, PHOS, MG, CK, UR, LDLP, URINC ####[facility] [place] [address] Eosinophils Auto #/vol (Bld) 0.1 10 3/uL Normal 0.03-0.6 [facility] Comment on above: Performed By: #### C BC, BMP, PHOS, MG, CK, UR, LDLP, URINC ####[address] [address] Eosinophils/100 WBC Auto (Bld) 1 % Normal 0-3 [facility] Comment on above: Performed By: #### C BC, BMP, PHOS, MG, CK, UR, LDLP, URINC ####[address] [address] Erythrocyte distribution width Auto Ratio (RBC) 13.9 % Normal 11.5-14.5 [facility] Comment on above: Performed By: #### C BC, BMP, PHOS, MG, CK, UR, LDLP, URINC ####[address] [address] Hematocrit Auto Volume Fraction (Bld) 43.2 % Normal 35-47 [facility] Comment on above: Performed By: #### C BC, BMP, PHOS, MG, CK, UR, LDLP, URINC ####[address] [address] Hemoglobin mass conc (Bld) 14.4 g/dL Normal 12.0-16.0 [facility] Comment on above: Performed By: #### C BC, BMP, PHOS, MG, CK, UR, LDLP, URINC ####[address] [address] Immature Gran# (Auto) 0.0 10 3/uL Normal [facility] Comment on above: Performed By: #### C BC, BMP, PHOS, MG, CK, UR, LDLP, URINC ####[address] [address] Immature granulocytes #/vol (Bld) 0.4 % Normal 0.0-0.9 [facility] Comment on above: Performed By: #### C BC, BMP, PHOS, MG, CK, UR, LDLP, URINC ####[address] [address] Lymphocytes Auto #/vol (Bld) 1.5 10 3/uL Normal 1-3.5 [facility] Comment on above: Performed By: #### C BC, BMP, PHOS, MG, CK, UR, LDLP, URINC ####[address] [address] Lymphocytes/100 WBC Auto (Bld) 19 % Low 24-44 [facility] Comment on above: Performed By: #### C BC, BMP, PHOS, MG, CK, UR, LDLP, URINC ####[address] [address] MCH Auto Entitic mass (RBC) 31.5 pg Normal 27-34 [facility] Comment on above: Performed By: #### C BC, BMP, PHOS, MG, CK, UR, LDLP, URINC ####[address] [address] MCH Auto Entitic mass (RBC) 33.3 g/dL Normal 33-37 [facility] Comment on above: Performed By: #### C BC, BMP, PHOS, MG, CK, UR, LDLP, URINC ####[address] [address] MCV Auto Entitic volume (RBC) 94.5 fL Normal 80-100 [facility] Comment on above: Performed By: #### C BC, BMP, PHOS, MG, CK, UR, LDLP, URINC ####[address] [address] Monocytes Auto #/vol (Bld) 0.4 10 3/uL Normal 0.04-0.9 [facility] Comment on above: Performed By: #### C BC, BMP, PHOS, MG, CK, UR, LDLP, URINC ####[facility] [place] [address] Monocytes/100 WBC Auto (Bld) 6 % Normal 1-8 [facility] Comment on above: Performed By: #### C BC, BMP, PHOS, MG, CK, UR, LDLP, URINC ####[address] [address] Neutrophils Auto #/vol (Bld) 5.5 10 3/uL Normal 1.8-7.0 [facility] Comment on above: Performed By: #### C BC, BMP, PHOS, MG, CK, UR, LDLP, URINC ####[address] [address] Neutrophils/100 WBC Auto (Bld) 73 % Normal 42-76 [facility] Comment on above: Performed By: #### C BC, BMP, PHOS, MG, CK, UR, LDLP, URINC ####[address] [address] Nucleated RBC/100 WBC Ratio (Bld) 0.0 % Normal 0.0-0.0 [facility] Comment on above: Performed By: #### C BC, BMP, PHOS, MG, CK, UR, LDLP, URINC ####[address] [address] Platelet mean volume Auto Entitic volume (Bld) 10.9 fL High 7.4-10.4 [facility] Comment on above: Performed By: #### C BC, BMP, PHOS, MG, CK, UR, LDLP, URINC ####[address] [address] Platelets Auto #/vol (Bld) 242 10 3/uL Normal 150-400 [facility] Comment on above: Performed By: #### C BC, BMP, PHOS, MG, CK, UR, LDLP, URINC ####[address] [address] RBC Auto #/vol (Bld) 4.57 10 6/uL Normal 4.2-5.4 [facility] Comment on above: Performed By: #### C BC, BMP, PHOS, MG, CK, UR, LDLP, URINC ####[facility] [place] [address] WBC Auto #/vol (Bld) 7.6 10 3/uL Normal 4.0-11.0 [facility] Comment on above: Performed By: #### C BC, BMP, PHOS, MG, CK, UR, LDLP, URINC ####[facility] [place] [address] Comprehensive Metabolic Pane mandeep 08-05-2017 AST enzyme act/vol 20 U/L Normal 15-37 [facility] Comment on above: Result Comment: SLIG HT HEMOLYSIS Performed By: #### C BC, BMP, PHOS, MG, CK, UR, LDLP, URINC ####[facility] [place] [address] Potassium molar conc 4.6 mmol/L Normal 3.5-5.1 [facility] Comment on above: Result Comment: SLIG HT HEMOLYSIS Performed By: #### C BC, BMP, PHOS, MG, CK, UR, LDLP, URINC ####[facility] [place] [address] Albumin mass conc 4.3 g/dL Normal 3.4-5.0 [facility] Comment on above: Performed By: #### C BC, BMP, PHOS, MG, CK, UR, LDLP, URINC ####[facility] [place] [address] ALP enzyme act/vol 113 U/L Normal 50-136 [facility] Comment on above: Performed By: #### C BC, BMP, PHOS, MG, CK, UR, LDLP, URINC ####[facility] [place] [address] ALT enzyme act/vol 17 U/L Normal 12-78 [facility] Comment on above: Performed By: #### C BC, BMP, PHOS, MG, CK, UR, LDLP, URINC ####[address] [address] Anion gap 3 molar conc 12.6 mmol/L Normal P [facility] Comment on above: Performed By: #### C BC, BMP, PHOS, MG, CK, UR, LDLP, URINC ####[address] [address] Bilirubin Ql (U) 0.4 mg/dL Normal 0.2-1.0 [facility] Comment on above: Performed By: #### C BC, BMP, PHOS, MG, CK, UR, LDLP, URINC ####[address] [address] Calcium mass conc 9.6 mg/dL Normal 8.5-10.1 [facility] Comment on above: Performed By: #### C BC, BMP, PHOS, MG, CK, UR, LDLP, URINC ####[address] [address] Chloride molar conc 106 mmol/L Normal 98-107 [facility] Comment on above: Performed By: #### C BC, BMP, PHOS, MG, CK, UR, LDLP, URINC ####[address] [address] CO2 molar conc 27 mmol/L Normal 21-32 [facility] Comment on above: Performed By: #### C BC, BMP, PHOS, MG, CK, UR, LDLP, URINC ####[address] [address] Creatinine mass conc 0.8 mg/dL Normal 0.6-1.3 [facility] Comment on above: Performed By: #### C BC, BMP, PHOS, MG, CK, UR, LDLP, URINC ####[facility] [place] [address] GFR () >60 Normal [facility] Comment on above: Performed By: #### C BC, BMP, PHOS, MG, CK, UR, LDLP, URINC ####[address] [address] GFR (Non ) >60 Normal [facility] Comment on above: Result Comment: eGFR Units of measure: mL/min/1.73 m 2 Performed By: #### C BC, BMP, PHOS, MG, CK, UR, LDLP, URINC ####[address] [address] Glucose mass conc 112 mg/dL High 74-106 [facility] Comment on above: Performed By: #### C BC, BMP, PHOS, MG, CK, UR, LDLP, URINC ####[address] [address] Protein mass conc 7.4 g/dL Normal 6.4-8.2 [facility] Comment on above: Performed By: #### C BC, BMP, PHOS, MG, CK, UR, LDLP, URINC ####[address] [address] Sodium molar conc 141 mmol/L Normal 136-145 [facility] Comment on above: Performed By: #### C BC, BMP, PHOS, MG, CK, UR, LDLP, URINC ####[address] [address] Urea nitrogen mass conc (Bld) 16 mg/dL Normal 7-18 [facility] Comment on above: Performed By: #### C BC, BMP, PHOS, MG, CK, UR, LDLP, URINC ####[address] [address] ED Visit Summaryon 8 ED Visit Summary [facility] Patient: CARLINE VILLARREAL [address] MR#: [id number] [place], [place] [address] : 1945 Ord[address] : Dept: Emergency Department Loc: 1EDA ER Physician Documentation Service Dt: 08/05/17 Report#: [id number] Adm Dt: 08/05/17 Dis Dt: Entered by Good Yuan, acting as scribe for JuddSkyler, DO 08/05/171920. Patient Information - Chief Complaint Initial Complaint: ELEVATED BP, RIGHT SIDE PAIN Chief Complaint: See Chief Complaint - Nursing Triage Note Nursing Triage Note: per daughter the patient had a stoke in May, family took her from the half-way and took her to [place] , she returned today a few hours [...] for CVA and was placed in a half-way for a few months for rehabilitation, with physical therapy. For the past three weeks, patient has been in [place] with her son, and just today has returned to [place]. She notes that 3 days ago she fell on her left side, but that the pain she is having was prior to this fall. Patient notes she has had difficulty with ambulation and weakness of her left upper extremity, but denies having had any change to speech. She also denies having a history of DE or diabetes. Dr. Colon is patient's primary [...] for couple weeks with her son in [place]. Patient was sent back to [place] secondary to his inability to care for her. According to the patient, the family is had conversation with her primary care physician and was cut told to come to the emergency department for further evaluation for possible placement in a half-way or rehabilitation facility for Vicodin ambulation. We [...] instructions. Skyler Whaley, DO 08/05/17 2301 Normal [facility] ED Visit Summary [facility] Patient: CARLINE VILLARREAL [address] MR#: [id number] [place], [place] [address] : 1945 Ord[address] : Dept: Emergency Department Loc: 3MED-ONC 346-1 ER Physician Documentation Service Dt: 08/05/17 Report#: [id number] Adm Dt: 08/05/17 Dis Dt: Physician in Triage - Triage Notes Notes: 08/05/17 17:44 71-year-old female history of prior CVA has a chief complaint today of left arm discomfort and not being able to function at home. Patient was admitted to a half-way after the stroke and then was down at [place] staying with her son who then sent her back up here for further evaluation because she is not able to function on her own. She was not doing well apparently during rehabilitation. She is not walking any better than she was from the stroke. Dr. Barry sent her in today for evaluation and possible admission to half-way. She denies having chest pain or shortness of breath, dizziness lightheadedness, nausea vomiting, headache, neck pain or any other associates symptoms. Limited physical examination an triage reveals left-sided weakness upper extremity, nonambulatory and otherwise unremarkable. ED course IV established drawn, EKG, chest x-ray. Normal [facility] Troponin Ion 08-05-2017 Troponin I.cardiac mass conc ng/mL Normal 0.00-0.045 [facility] Comment on above: Performed By: #### C BC, BMP, PHOS, MG, CK, UR, LDLP, URINC ####[facility] [place], [place] [id number] Brain or Head without Contra ston 06-24-2017 Brain or Head without Contrast [facility] Patient: CARLINE VILLARREAL [address] [facility] MR#: [id number] [place], [place] [address] : 1945 [address] DrMarkos: Iban Lauren MD Dept: Diagnostic Imaging Loc: 1EDA DI REPORT Service Dt:06/24/17 Report#: [id number] Adm Dt: 06/24/17 Dis Dt: Comments: 14 STUDY: CT Brain or Head without Contrast; 06/24/2017 1:46 pm INDICATION: Injury. COMPARISON: 05/07/2017 ACCESSION NUMBER(S): [id number] ORDERING CLINICIAN: Iban Lauren TECHNIQUE: Volume acquisition [...] by: Gal Gonzalez 06/24/2017 1:56 PM Normal [facility] Chest Portable Xray 1 viewon 06-24-2017 Chest Portable Xray 1 view [facility] Patient: CARLINE VILLARREAL [address] MR#: [id number] [place], [place] [address] : [address] Iban Lauren MD Dept: Diagnostic Imaging Loc: 1EDA DI REPORT Service Dt:06/24/17 Report#: [id number] Adm Dt: 06/24/17 Dis Dt: Comments: 14 STUDY: CR Chest Portable Xray 1 view; 06/24/2017 1:10 pm INDICATION: Shortness of breath. COMPARISON: Comparison is made with the prior study of 05/08/2017. ACCESSION NUMBER(S): [id number] ORDERING CLINICIAN: Iban Lauren FINDINGS: Single upright AP portable chest demonstrates suboptimal inspiratory effort with slight blunting of the costophrenic angle on the right there is atherosclerotic change of the aorta without cardiomegaly. There is a right shoulder reverse shoulder arthroplasty present. IMPRESSION: No acute cardiopulmonary process. Dictated by: Jeronimo Razo III Electronically Signed by: Jeronimo Razo III 06/24/2017 1:16 PM Normal [facility] Complete Blood Count w/diff $$on 06-24-2017 Basophils Auto #/vol (Bld) 0.0 10 /uL Low 0.04-0.9 [facility] Comment on above: Performed By: #### C BC, BMP, PHOS, MG, CK, UR, LDLP, URINC ####[place] [address] Basophils/100 WBC Auto (Bld) 1 % Normal 0-1 [facility] Comment on above: Performed By: #### C BC, BMP, PHOS, MG, CK, UR, LDLP, URINC ####[place] [phone] Eosinophils Auto #/vol (Bld) 0.2 10 3/uL Normal 0.03-0.6 [facility] Comment on above: Performed By: #### C BC, BMP, PHOS, MG, CK, UR, LDLP, URINC ####[place] [address] Eosinophils/100 WBC Auto (Bld) 3 % Normal 0-3 [facility] Comment on above: Performed By: #### C BC, BMP, PHOS, MG, CK, UR, LDLP, URINC ####[place] [id number] Erythrocyte distribution width Auto Ratio (RBC) 12.8 % Normal 11.5-14.5 [facility] Comment on above: Performed By: #### C BC, BMP, PHOS, MG, CK, UR, LDLP, URINC ####[place] 3258229 Hematocrit Auto Volume Fraction (Bld) 38.5 % Normal 35-47 [facility] Comment on above: Performed By: #### C BC, BMP, PHOS, MG, CK, UR, LDLP, URINC ####[place] 3258229 Hemoglobin mass conc (Bld) 13.0 g/dL Normal 12.0-16.0 [facility] Comment on above: Performed By: #### C BC, BMP, PHOS, MG, CK, UR, LDLP, URINC ####[place] [id number] Immature Gran# (Auto) 0.0 10 3/uL Normal [facility] Comment on above: Performed By: #### C BC, BMP, PHOS, MG, CK, UR, LDLP, URINC ####[address] [address] Immature granulocytes #/vol (Bld) 0.2 % Normal 0.0-0.9 [facility] Comment on above: Performed By: #### C BC, BMP, PHOS, MG, CK, UR, LDLP, URINC ####[address] [address] Lymphocytes Auto #/vol (Bld) 1.0 10 3/uL Normal 1-3.5 [facility] Comment on above: Performed By: #### C BC, BMP, PHOS, MG, CK, UR, LDLP, URINC ####[address] [address] Lymphocytes/100 WBC Auto (Bld) 18 % Low 24-44 [facility] Comment on above: Performed By: #### C BC, BMP, PHOS, MG, CK, UR, LDLP, URINC ####[address] [address] MCH Auto Entitic mass (RBC) 32.0 pg Normal 27-34 [facility] Comment on above: Performed By: #### C BC, BMP, PHOS, MG, CK, UR, LDLP, URINC ####[address] [address] MCH Auto Entitic mass (RBC) 33.8 g/dL Normal 33-37 [facility] Comment on above: Performed By: #### C BC, BMP, PHOS, MG, CK, UR, LDLP, URINC ####[address] [address] MCV Auto Entitic volume (RBC) 94.8 fL Normal 80-100 [facility] Comment on above: Performed By: #### C BC, BMP, PHOS, MG, CK, UR, LDLP, URINC ####[address] [address] Monocytes Auto #/vol (Bld) 0.5 10 3/uL Normal 0.04-0.9 [facility] Comment on above: Performed By: #### C BC, BMP, PHOS, MG, CK, UR, LDLP, URINC ####[address] [address] Monocytes/100 WBC Auto (Bld) 9 % High 1-8 [facility] Comment on above: Performed By: #### C BC, BMP, PHOS, MG, CK, UR, LDLP, URINC ####[address] [address] Neutrophils Auto #/vol (Bld) 4.0 10 3/uL Normal 1.8-7.0 [facility] Comment on above: Performed By: #### C BC, BMP, PHOS, MG, CK, UR, LDLP, URINC ####[address] [address] Neutrophils/100 WBC Auto (Bld) 69 % Normal 42-76 [facility] Comment on above: Performed By: #### C BC, BMP, PHOS, MG, CK, UR, LDLP, URINC ####[address] [address] Nucleated RBC/100 WBC Ratio (Bld) 0.0 % Normal 0.0-0.0 [facility] Comment on above: Performed By: #### C BC, BMP, PHOS, MG, CK, UR, LDLP, URINC ####[address] [address] Platelet mean volume Auto Entitic volume (Bld) 10.2 fL Normal 7.4-10.4 [facility] Comment on above: Performed By: #### C BC, BMP, PHOS, MG, CK, UR, LDLP, URINC ####[facility] [place] [address] Platelets Auto #/vol (Bld) 253 10 3/uL Normal 150-400 [facility] Comment on above: Performed By: #### C BC, BMP, PHOS, MG, CK, UR, LDLP, URINC ####[address] [address] RBC Auto #/vol (Bld) 4.06 10 6/uL Low 4.2-5.4 [facility] Comment on above: Performed By: #### C BC, BMP, PHOS, MG, CK, UR, LDLP, URINC ####[address] [address] WBC Auto #/vol (Bld) 5.7 10 3/uL Normal 4.0-11.0 [facility] Comment on above: Performed By: #### C BC, BMP, PHOS, MG, CK, UR, LDLP, URINC ####[address] [address] Comprehensive Metabolic Pane mandeep 06-24-2017 Potassium molar conc 4.1 mmol/L Normal 3.5-5.1 [facility] Comment on above: Result Comment: SERU M SLIGHTLY HEMOLYZED--- 06/24/17 1350 ---K previously reported as: 4.1 mmol/L Performed By: #### C BC, BMP, PHOS, MG, CK, UR, LDLP, URINC ####[address] [address] Albumin mass conc 3.8 g/dL Normal 3.4-5.0 [facility] Comment on above: Performed By: #### C BC, BMP, PHOS, MG, CK, UR, LDLP, URINC ####[address] [address] ALP enzyme act/vol 88 U/L Normal 50-136 [facility] Comment on above: Performed By: #### C BC, BMP, PHOS, MG, CK, UR, LDLP, URINC ####[address] [address] ALT enzyme act/vol 20 U/L Normal 12-78 [facility] Comment on above: Performed By: #### C BC, BMP, PHOS, MG, CK, UR, LDLP, URINC ####[address] [address] Anion gap 3 molar conc 15.1 mmol/L Normal P [facility] Comment on above: Performed By: #### C BC, BMP, PHOS, MG, CK, UR, LDLP, URINC ####[address] [address] AST enzyme act/vol 30 U/L Normal 15-37 [facility] Comment on above: Performed By: #### C BC, BMP, PHOS, MG, CK, UR, LDLP, URINC ####[address] [address] Bilirubin Ql (U) 0.5 mg/dL Normal 0.2-1.0 [facility] Comment on above: Performed By: #### C BC, BMP, PHOS, MG, CK, UR, LDLP, URINC ####[address] [address] Calcium mass conc 9.9 mg/dL Normal 8.5-10.1 [facility] Comment on above: Performed By: #### C BC, BMP, PHOS, MG, CK, UR, LDLP, URINC ####[facility] [place] [address] Chloride molar conc 105 mmol/L Normal 98-107 [facility] Comment on above: Performed By: #### C BC, BMP, PHOS, MG, CK, UR, LDLP, URINC ####[facility] [place] [address] CO2 molar conc 24 mmol/L Normal 21-32 [facility] Comment on above: Performed By: #### C BC, BMP, PHOS, MG, CK, UR, LDLP, URINC ####[address] [address] Creatinine mass conc 0.8 mg/dL Normal 0.6-1.3 [facility] Comment on above: Performed By: #### C BC, BMP, PHOS, MG, CK, UR, LDLP, URINC ####[address] [address] GFR () >60 Normal [facility] Comment on above: Performed By: #### C BC, BMP, PHOS, MG, CK, UR, LDLP, URINC ####[address] [address] GFR (Non ) >60 Normal [facility] Comment on above: Result Comment: eGFR Units of measure: mL/min/1.73 m 2 Performed By: #### C BC, BMP, PHOS, MG, CK, UR, LDLP, URINC ####[address] [address] Glucose mass conc 105 mg/dL Normal 74-106 [facility] Comment on above: Performed By: #### C BC, BMP, PHOS, MG, CK, UR, LDLP, URINC ####[address] [address] Protein mass conc 6.7 g/dL Normal 6.4-8.2 [facility] Comment on above: Performed By: #### C BC, BMP, PHOS, MG, CK, UR, LDLP, URINC ####[facility] [place] [address] Sodium molar conc 140 mmol/L Normal 136-145 [facility] Comment on above: Performed By: #### C BC, BMP, PHOS, MG, CK, UR, LDLP, URINC ####[address] [address] Urea nitrogen mass conc (Bld) 17 mg/dL Normal 7-18 [facility] Comment on above: Performed By: #### C BC, BMP, PHOS, MG, CK, UR, LDLP, URINC ####[facility] [place] [address] ED Visit Summaryon 7 ED Visit Summary [facility] Patient: CARLINE VILLARREAL [address] [facility] MR#: [id number] [place], [place] [address] : 1945 Ord. : Dept: Emergency Department Loc: 1EDA ER Physician Documentation Service Dt: 06/24/17 Report#: [id number] Adm Dt: 06/24/17 Dis Dt: Entered by Yenni Parra, acting as scribe for Iban Lauren MD 06/24/17 4087. Patient Information - Chief Complaint Initial Complaint: [...] Patient states she has been in a half-way for the past week after a fall. Today she states she became lightheaded while standing up at a physical therapy session. She denies near syncope as well as vertiginous dizziness. Patient also reports a mild frontal headache which she states does not feel like her typical migraines. She states her blood pressure taken at the half-way today was in the 180s systolic. She [...] (Auto) 69 Lymph % (Auto) 18 L [place] % (Auto) 9 H Eos % (Auto) 3 Baso % (Auto) 1 Nucleat RBC Rel Count 0.0 Immature Gran # (Auto) 0.0 Neut # (Auto) 4.0 Lymph # (Auto) 1.0 [place] # (Auto) 0.5 Eos # (Auto) 0.2 [...] Clarity Turbid Urine pH 8.0 Ur Specific [place] 1.008 Urine Protein Negative Urine Glucose (UA) [...] - Attestation Attestation: 06/24/17 15:37 ED MD Vivaribmari Attestation All medical record entries made by Yenni Parra were at my direction and personally dictated by me. I have reviewed the chart and agree that the record accurately reflects my personal performance of the history, physical exam, assessment and plan. I have also personally directed, reviewed, and agree with the discharge instructions. 06/24/17 1537 ED Scribe Attestation All medical record entries made by Yenni Parra were at my direction and personally dictated by me. I have reviewed the chart and agree that the record accurately reflects my personal performance of the history, physical exam, assessment and plan. I have also personally directed, reviewed, and agree with the discharge instructions. Iban Lauren MD 06/24/17 1513 Normal [facility] Urinalysison 06-24-2017 Bacteria LM.HPF #/area (Urine sed) Occasional Normal 0 [facility] Comment on above: Order Comment: Comme nt CVMS Performed By: #### C BC, BMP, PHOS, MG, CK, UR, LDLP, URINC ####[address] [address] Amorphous Sediment, Urine Moderate Normal [facility] Comment on above: Order Comment: Comme nt CVMS Performed By: #### C BC, BMP, PHOS, MG, CK, UR, LDLP, URINC ####[facility] [place] [address] Bilirubin, Urine Negative Normal Negative [facility] Comment on above: Order Comment: Comme nt CVMS Performed By: #### C BC, BMP, PHOS, MG, CK, UR, LDLP, URINC ####[facility] [place] [address] Clarity Nom (U) Turbid Normal [facility] Comment on above: Order Comment: Comme nt CVMS Performed By: #### C BC, BMP, PHOS, MG, CK, UR, LDLP, URINC ####[facility] [place] [address] Color Nom (U) Yellow Normal [facility] Comment on above: Order Comment: Comme nt CVMS Performed By: #### C BC, BMP, PHOS, MG, CK, UR, LDLP, URINC ####[facility] [place] [address] Epithelial Cells Rare Normal 0-5 [facility] Comment on above: Order Comment: Comme nt CVMS Performed By: #### C BC, BMP, PHOS, MG, CK, UR, LDLP, URINC ####[facility] [place] [address] Glucose Ql (U) Negative Normal Negative [facility] Comment on above: Order Comment: Comme nt CVMS Performed By: #### C BC, BMP, PHOS, MG, CK, UR, LDLP, URINC ####[facility] [place] [address] Hemoglobin Test strip Ql (U) Negative Normal Negative [facility] Comment on above: Order Comment: Comme nt CVMS Performed By: #### C BC, BMP, PHOS, MG, CK, UR, LDLP, URINC ####[facility] [place] [address] Ketones Ql (U) Negative Normal Negative [facility] Comment on above: Order Comment: Comme nt CVMS Performed By: #### C BC, BMP, PHOS, MG, CK, UR, LDLP, URINC ####[facility] [place] [address] Leukocyte esterase Test strip Ql (U) 3+ Abnormal Negative [facility] Comment on above: Order Comment: Comme nt CVMS Performed By: #### C BC, BMP, PHOS, MG, CK, UR, LDLP, URINC ####[facility] [place] [address] Mucus, Urine Rare Normal [facility] Comment on above: Order Comment: Comme nt CVMS Performed By: #### C BC, BMP, PHOS, MG, CK, UR, LDLP, URINC ####[facility] [place] [address] Nitrates, Urine Positive Abnormal Negative [facility] Comment on above: Order Comment: Comme nt CVMS Performed By: #### C BC, BMP, PHOS, MG, CK, UR, LDLP, URINC ####[address] [address] pH Test strip (U) 8.0 [pH] Normal 5.0-9.0 [facility] Comment on above: Order Comment: Comme nt CVMS Performed By: #### C BC, BMP, PHOS, MG, CK, UR, LDLP, URINC ####[address] [address] Protein, Urine Negative Normal Negative [facility] Comment on above: Order Comment: Comme nt CVMS Performed By: #### C BC, BMP, PHOS, MG, CK, UR, LDLP, URINC ####[address] [address] Specific [place], Urine 1.008 Normal 1.000-1.030 [facility] Comment on above: Order Comment: Comme nt CVMS Performed By: #### C BC, BMP, PHOS, MG, CK, UR, LDLP, URINC ####[address] [address] Urobilinogen, Urine Normal Normal <2.0 [facility] Comment on above: Order Comment: Comme nt CVMS Performed By: #### C BC, BMP, PHOS, MG, CK, UR, LDLP, URINC ####[address] [address] WBC LM.HPF #/area (Urine sed) /[HPF] Abnormal 0-2 [facility] Comment on above: Order Comment: Comme nt CVMS Performed By: #### C BC, BMP, PHOS, MG, CK, UR, LDLP, URINC ####[address] [address] Urine Cultureon 06-24-2017 Bacteria identified Cx Nom (U) ---- RUN DATE: 06/24/17 [facility] LIVE PAGE 1 RUN TIME: 1550 Specimen Inquiry ---- PATIENT: CARLINE VILLARREAL ACCT: [id number] LOC: 1EDA U: [id number] AGE/SX: 71/F ROOM: RE06/24/[address]: Iban Lauren MD : 1945 BED: DIS: STATUS: REG ISIDRA TLOC: ---- SPEC #: [id number] ASHOK: 06/24/17 STATUS: CAN REQ #: [id number] RECD: - SUBM DR: Iban Lauren MD SOURCE: URINE ENTR: 06/24/[address]: Grant Colon MD SPDES: CLEAN CATC ORDERED: Urine Culture ---- Procedure Result ---- CANCELLED Duplicate Request ---- END OF REPORT Normal [facility] Comment on above: Performed By: #### C BC, BMP, PHOS, MG, CK, UR, LDLP, URINC ####[facility] [place] [address] Bacteria identified Cx Nom (U) ---- RUN DATE: 06/25/17 [facility] LIVE PAGE 1 RUN TIME: 517 Specimen Inquiry ---- PATIENT: CARLINE VILLARREAL ACCT: [id number] LOC: 1EDA U: [id number] AGE/SX: 71/F ROOM: RE06/24/[address]: Iban Lauren MD : 1945 BED: DIS: STATUS: TAMARA MINER TLOC: ---- SPEC #: [id number] ASHOK: 06/24/17 STATUS: PATRIC REQ #: [id number] RECD: 06/24/[address]: Iban Lauren MD SOURCE: URINE ENTR: 06/24/[address]: Grant Colon MD SPDC: Urine Not ORDERED: Urine Culture ---- Procedure Result ---- > Urine Culture Final COMMENT PATIENT: CARLINE VILLARREAL LOCATION: [id number] BILL#: [id number] : 45 AGE: SEX: F ORDERED BY: PHYSICIAN, AMBULATORY SOURCE: URINE COLLECTED: 06/24/17 15:07 ANTIBIOTICS AT ASHOK.: RECEIVED : 06/24/17 21:12 SITE: [facility] Sarah Dixon S U L T S URINE CULTURE,BACTERIAL FINAL 06/25/17 14:50 MULTIPLE ORGANISMS PRESENT, PROBABLE CONTAMINATION PLEASE REPEAT CULTURE. Performing Site: [facility] [address] [place] [address] ---- END OF REPORT Normal [facility] Comment on above: Performed By: #### C BC, BMP, PHOS, MG, CK, UR, LDLP, URINC ####[facility] [place] [address] Urinalysison 05-31-2017 Color Nom (U) Yellow Normal [facility] Comment on above: Order Comment: FAX C HL [phone] [facility] [phone] Performed By: #### C BC, BMP, PHOS, MG, CK, UR, LDLP, URINC ####[facility] [place] [address] Bacteria LM.HPF #/area (Urine sed) Many Abnormal 0 [facility] Comment on above: Order Comment: FAX C HL [phone] [facility] [phone] Performed By: #### C BC, BMP, PHOS, MG, CK, UR, LDLP, URINC ####[facility] [place] [address] Bilirubin, Urine Negative Normal Negative [facility] Comment on above: Order Comment: FAX C [phone] [facility] [phone] Performed By: #### C BC, BMP, PHOS, MG, CK, UR, LDLP, URINC ####[facility] [place] [address] Calcium Oxalate Crystals, Ur Rare Normal [facility] Comment on above: Order Comment: FAX C [phone] [facility] [phone] Performed By: #### C BC, BMP, PHOS, MG, CK, UR, LDLP, URINC ####[facility] [place] [address] Clarity Nom (U) Cloudy Normal [facility] Comment on above: Order Comment: FAX C [phone] [facility] [phone] Performed By: #### C BC, BMP, PHOS, MG, CK, UR, LDLP, URINC ####[facility] [place] [address] Epithelial Cells Moderate Abnormal 0-5 [facility] Comment on above: Order Comment: FAX C [phone] [facility] [phone] Performed By: #### C BC, BMP, PHOS, MG, CK, UR, LDLP, URINC ####[facility] [place] [address] Glucose Ql (U) Negative Normal Negative [facility] Comment on above: Order Comment: FAX C [phone] [facility] [phone] Performed By: #### C BC, BMP, PHOS, MG, CK, UR, LDLP, URINC ####[facility] [place] [address] Hemoglobin Test strip Ql (U) Negative Normal Negative [facility] Comment on above: Order Comment: FAX C [phone] [facility] [phone] Performed By: #### C BC, BMP, PHOS, MG, CK, UR, LDLP, URINC ####[facility] [place] [phone] Hyaline Casts, Urine 0-5 Normal [facility] Comment on above: Order Comment: FAX C HL [phone] [facility] [phone] Performed By: #### C BC, BMP, PHOS, MG, CK, UR, LDLP, URINC ####[facility] [place] [address] Ketones Ql (U) Negative Normal Negative [facility] Comment on above: Order Comment: FAX C HL [phone] [facility] [phone] Performed By: #### C BC, BMP, PHOS, MG, CK, UR, LDLP, URINC ####[address] [address] Leukocyte esterase Test strip Ql (U) 3+ Abnormal Negative [facility] Comment on above: Order Comment: FAX C [phone] [facility] [phone] Performed By: #### C BC, BMP, PHOS, MG, CK, UR, LDLP, URINC ####[address] [address] Mucus, Urine Rare Normal [facility] Comment on above: Order Comment: FAX C HL [phone] [facility] [phone] Performed By: #### C BC, BMP, PHOS, MG, CK, UR, LDLP, URINC ####[address] [address] Nitrates, Urine Negative Normal Negative [facility] Comment on above: Order Comment: FAX C HL [phone] [facility] [phone] Performed By: #### C BC, BMP, PHOS, MG, CK, UR, LDLP, URINC ####[facility] [place] [phone] pH Test strip (U) 6.0 [pH] Normal 5.0-9.0 [facility] Comment on above: Order Comment: FAX C [phone] [facility] [phone] Performed By: #### C BC, BMP, PHOS, MG, CK, UR, LDLP, URINC ####[address] [address]38229 Protein, Urine 1+ Abnormal Negative [facility] Comment on above: Order Comment: FAX C [phone] [place] [address] Performed By: #### C BC, BMP, PHOS, MG, CK, UR, LDLP, URINC ####[address] 74[address] RBC LM.HPF #/area (Urine sed) 5-10 Abnormal 0-3 [facility] Comment on above: Order Comment: FAX [place] [phone] [facility] [phone] Performed By: #### C BC, BMP, PHOS, MG, CK, UR, LDLP, URINC ####[address] [id number] Specific [place], Urine 1.015 Normal 1.000-1.030 [facility] Comment on above: Order Comment: FAX C [phone] [facility] [phone] Performed By: #### C BC, BMP, PHOS, MG, CK, UR, LDLP, URINC ####[address] [address] Transitional Epi Cells, Urine 1 /HPF Normal [facility] Comment on above: Order Comment: FAX C [phone] [facility] [phone] Performed By: #### C BC, BMP, PHOS, MG, CK, UR, LDLP, URINC ####[address] [address] Urobilinogen, Urine 2.0 mg/dL Normal <2.0 [facility] Comment on above: Order Comment: FAX C [phone] [phone] Performed By: #### C BC, BMP, PHOS, MG, CK, UR, LDLP, URINC ####[address] [address] WBC LM.HPF #/area (Urine sed) /[HPF] Abnormal 0-2 [facility] Comment on above: Order Comment: FAX C [phone] [facility] [phone] Performed By: #### C BC, BMP, PHOS, MG, CK, UR, LDLP, URINC ####[address] 7[address]68[address] Brain or Head without Contra ston 05-08-2017 Brain or Head without Contrast [facility] Patient: CARLINE VILLARREAL [address] [facility] MR#: [id number] [place], [place] [address] : [address] Alfonso Berry MD Dept: Diagnostic Imaging Loc: 1EDA DI REPORT Service Dt:05/07/17 Report#: [id number] Adm Dt: 05/07/17 Dis Dt: Comments: STUDY: CT Brain or Head without Contrast; CT Cervical Spine W/O Contrast; 05/07/2017 11:30 pm INDICATION: head injury; neck pain status post fall. COMPARISON: CT scan of the head 05/04/2017. CTA neck 05/05/2017 ACCESSION NUMBER(S): [id number]; [id number] ORDERING CLINICIAN: Alfonso Berry TECHNIQUE: Noncontrast CT [...] of the carotid siphons and vertebral arteries.. [employer] D[employer] Machine Operator images demonstrate bilateral shoulder arthroplasties CERVICAL SPINE: [...] by: Juan Blanca 05/08/2017 12:23 AM Normal [facility] Cervical Spine W/O Contrasto n 05-08-2017 Cervical Spine W/O Contrast [facility] Patient: CARLINE VILLARREAL [address] [facility] MR#: [id number] [place], [place] [address] [facility] 1945 [id number] [address] Alfonso Berry MD Dept: Diagnostic Imaging Loc: 1EDA DI REPORT Service Dt:05/07/17 Report#: [id number] Adm Dt: 05/07/17 Dis Dt: Comments: STUDY: CT Brain or Head without Contrast; CT Cervical Spine W/O Contrast; 05/07/2017 11:30 pm INDICATION: head injury; neck pain status post fall. COMPARISON: CT scan of the head 05/04/2017. CTA neck 05/05/2017 ACCESSION NUMBER(S): [id number]; [id number] ORDERING CLINICIAN: Alfonso Berry TECHNIQUE: Noncontrast CT [...] of the carotid siphons and vertebral arteries.. 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 Alfonso Berry MD Dept: Diagnostic Imaging Loc: 1EDA DI REPORT Service Dt:05/07/17 Report#: [id number] Adm Dt: 05/07/17 Dis Dt: Comments: STUDY: CR Chest Single Xray 1 view; 05/07/2017 11:25 pm INDICATION: chest injury. COMPARISON: Chest x-ray 2016 ACCESSION NUMBER(S): [id number] ORDERING CLINICIAN: Alfonso Berry FINDINGS: Multiple overlying [...] by: Juan Blanca 05/08/2017 1:20 AM Normal [facility] ED Visit Summaryon 7 ED Visit Summary [facility] Patient: CARLINE VILLARREAL [address] MR#: [id number] [place], [place] [address] : 1945 Ord[address] Draper: Dept: Emergency Department Loc: 1EDA ER Physician Documentation Service Dt: 05/07/17 Report#: [id number] Adm Dt: 05/07/17 Dis Dt: Entered by Autumn Palacios, acting as scribe for Alfonso Berry MD 05/07/17 0168. Patient Information - Chief Complaint Initial Complaint: [...] to move and fell forward at the half-way today. Patient hit her head but did [...] stable to be discharged back to the half-way. - Social Medical History Smoking Status: Never [...] Disposition Disposition: TO HOME Discharged With/To: A Care Home - Discharge Instructions: Contusion in Adults (ED) Additional Instructions: Follow-up with primary care physician in 3-5 days. Return to the ED if symptoms worsen or new symptoms arise. Referrals: Grant Colon MD [Primary Care Provider] - Time of Disposition: 00:43 ED MD Scribe Attestation All medical record entries made by Autumn Palacios were at my direction and personally dictated by me. I have reviewed the chart and agree that the record accurately reflects my personal performance of the history, physical exam, assessment and plan. I have also personally directed, reviewed, and agree with the discharge instructions. Alfonso Berry MD 05/08/17 0045 Normal [facility] Knee Right Limited 1-2 Views on 05-08-2017 Knee Right Limited 1-2 Views [facility] Patient: CARLINE VILLARREAL [address] [facility] MR#: [id number] [place], [place] [address] : [address] Alfonso Berry MD Dept: Diagnostic Imaging Loc: 1EDA DI REPORT Service Dt:05/07/17 Report#: [id number] Adm Dt: 05/07/17 Dis Dt: Comments: STUDY: CR Knee Right Limited 1-2 Views; 05/07/2017 11:25 pm INDICATION: injury/fall. COMPARISON: None. ACCESSION NUMBER(S): [id number] ORDERING CLINICIAN: Alfonso Berry FINDINGS: AP and [...] by: Juan Blanca 05/08/2017 1:25 AM Normal [facility] Basic Metabolic Panel $$$on 05-07-2017 Anion gap 3 molar conc 13.1 mmol/L Normal P [facility] Comment on above: Performed By: #### C BC, BMP, PHOS, MG, CK, UR, LDLP, URINC ####[facility] [place], [place] [id number] Calcium mass conc 8.8 mg/dL Normal 8.5-10.1 [facility] Comment on above: Performed By: #### C BC, BMP, PHOS, MG, CK, UR, LDLP, URINC ####[address] [address] Chloride molar conc 107 mmol/L Normal 98-107 [facility] Comment on above: Performed By: #### C BC, BMP, PHOS, MG, CK, UR, LDLP, URINC ####[address] [address] CO2 molar conc 26 mmol/L Normal 21-32 [facility] Comment on above: Performed By: #### C BC, BMP, PHOS, MG, CK, UR, LDLP, URINC ####[address] [address] Creatinine mass conc 0.8 mg/dL Normal 0.6-1.3 [facility] Comment on above: Performed By: #### C BC, BMP, PHOS, MG, CK, UR, LDLP, URINC ####[address] [address] Estimated Creatinine Clearance 46 mL/min Low 75-115 [facility] Comment on above: Performed By: #### C BC, BMP, PHOS, MG, CK, UR, LDLP, URINC ####[address] [address] GFR () >60 Normal [facility] Comment on above: Performed By: #### C BC, BMP, PHOS, MG, CK, UR, LDLP, URINC ####[address] [address] GFR (Non ) >60 Normal [facility] Comment on above: Result Comment: eGFR Units of measure: mL/min/1.73 m 2 Performed By: #### C BC, BMP, PHOS, MG, CK, UR, LDLP, URINC ####[address] [address] Glucose mass conc 107 mg/dL High 74-106 [facility] Comment on above: Performed By: #### C BC, BMP, PHOS, MG, CK, UR, LDLP, URINC ####[address] [address] Potassium molar conc 4.1 mmol/L Normal 3.5-5.1 [facility] Comment on above: Performed By: #### C BC, BMP, PHOS, MG, CK, UR, LDLP, URINC ####[address] [address] Sodium molar conc 142 mmol/L Normal 136-145 [facility] Comment on above: Performed By: #### C BC, BMP, PHOS, MG, CK, UR, LDLP, URINC ####[address] [address] Urea nitrogen mass conc (Bld) 13 mg/dL Normal 7-18 [facility] Comment on above: Performed By: #### C BC, BMP, PHOS, MG, CK, UR, LDLP, URINC ####[address] [address] Complete Blood Count w/diff $$on 05-07-2017 Basophils Auto #/vol (Bld) 0.0 10 /uL Low 0.04-0.9 [facility] Comment on above: Performed By: #### C BC, BMP, PHOS, MG, CK, UR, LDLP, URINC ####[address] [address] Basophils/100 WBC Auto (Bld) 1 % Normal 0-1 [facility] Comment on above: Performed By: #### C BC, BMP, PHOS, MG, CK, UR, LDLP, URINC ####[address] [address] Eosinophils Auto #/vol (Bld) 0.2 10 3/uL Normal 0.03-0.6 [facility] Comment on above: Performed By: #### C BC, BMP, PHOS, MG, CK, UR, LDLP, URINC ####[address] [address] Eosinophils/100 WBC Auto (Bld) 5 % High 0-3 [facility] Comment on above: Performed By: #### C BC, BMP, PHOS, MG, CK, UR, LDLP, URINC ####[address] [address] Erythrocyte distribution width Auto Ratio (RBC) 13.5 % Normal 11.5-14.5 [facility] Comment on above: Performed By: #### C BC, BMP, PHOS, MG, CK, UR, LDLP, URINC ####[address] [address] Hematocrit Auto Volume Fraction (Bld) 26.9 % Low 35-47 [facility] Comment on above: Performed By: #### C BC, BMP, PHOS, MG, CK, UR, LDLP, URINC ####[address] [address] Hemoglobin mass conc (Bld) 9.1 g/dL Low 12.0-16.0 [facility] Comment on above: Performed By: #### C BC, BMP, PHOS, MG, CK, UR, LDLP, URINC ####[address] [address] Immature Gran# (Auto) 0.0 10 3/uL Normal [facility] Comment on above: Performed By: #### C BC, BMP, PHOS, MG, CK, UR, LDLP, URINC ####[address] [address] Immature granulocytes #/vol (Bld) 0.2 % Normal 0.0-0.9 [facility] Comment on above: Performed By: #### C BC, BMP, PHOS, MG, CK, UR, LDLP, URINC ####[facility] [place] [address] Lymphocytes Auto #/vol (Bld) 0.9 10 3/uL Low 1-3.5 [facility] Comment on above: Performed By: #### C BC, BMP, PHOS, MG, CK, UR, LDLP, URINC ####[facility] [place] [address] Lymphocytes/100 WBC Auto (Bld) 22 % Low 24-44 [facility] Comment on above: Performed By: #### C BC, BMP, PHOS, MG, CK, UR, LDLP, URINC ####[facility] [place] [address] MCH Auto Entitic mass (RBC) 34.3 pg High 27-34 [facility] Comment on above: Performed By: #### C BC, BMP, PHOS, MG, CK, UR, LDLP, URINC ####[address] [address] MCH Auto Entitic mass (RBC) 33.8 g/dL Normal 33-37 [facility] Comment on above: Performed By: #### C BC, BMP, PHOS, MG, CK, UR, LDLP, URINC ####[address] [address] MCV Auto Entitic volume (RBC) 101.5 fL High 80-100 [facility] Comment on above: Performed By: #### C BC, BMP, PHOS, MG, CK, UR, LDLP, URINC ####[address] [address] Monocytes Auto #/vol (Bld) 0.3 10 3/uL Normal 0.04-0.9 [facility] Comment on above: Performed By: #### C BC, BMP, PHOS, MG, CK, UR, LDLP, URINC ####[address] [address] Monocytes/100 WBC Auto (Bld) 8 % Normal 1-8 [facility] Comment on above: Performed By: #### C BC, BMP, PHOS, MG, CK, UR, LDLP, URINC ####[address] [address] Neutrophils Auto #/vol (Bld) 2.7 10 3/uL Normal 1.8-7.0 [facility] Comment on above: Performed By: #### C BC, BMP, PHOS, MG, CK, UR, LDLP, URINC ####[address] [address] Neutrophils/100 WBC Auto (Bld) 64 % Normal 42-76 [facility] Comment on above: Performed By: #### C BC, BMP, PHOS, MG, CK, UR, LDLP, URINC ####[address] [address] Nucleated RBC/100 WBC Ratio (Bld) 0.0 % Normal 0.0-0.0 [facility] Comment on above: Performed By: #### C BC, BMP, PHOS, MG, CK, UR, LDLP, URINC ####[address] [address] Platelet mean volume Auto Entitic volume (Bld) 10.8 fL High 7.4-10.4 [facility] Comment on above: Performed By: #### C BC, BMP, PHOS, MG, CK, UR, LDLP, URINC ####[address] [address] Platelets Auto #/vol (Bld) 230 10 3/uL Normal 150-400 [facility] Comment on above: Performed By: #### C BC, BMP, PHOS, MG, CK, UR, LDLP, URINC ####[facility] [place] [address] RBC Auto #/vol (Bld) 2.65 10 6/uL Low 4.2-5.4 [facility] Comment on above: Performed By: #### C BC, BMP, PHOS, MG, CK, UR, LDLP, URINC ####[facility] [place] [address] WBC Auto #/vol (Bld) 4.2 10 3/uL Normal 4.0-11.0 [facility] Comment on above: Performed By: #### C BC, BMP, PHOS, MG, CK, UR, LDLP, URINC ####[address] [address] Progress Noteson 05-07-2017 Protein mass [facility] Patient: CARLINE VILLARREAL MR#: [id number] [place], [place] [address] : 1945 Ord. : Dept: PDOC Loc: 3MED-ONC 340-1 Physician Progress Note Service Dt: 05/07/17 Report#: [id number] Adm Dt: 05/04/17 Dis Dt: 05/07/17 Note - Patient Note Observation: 05/07/17 14:38 Patient fully evaluated today. Neurologic examination slight improvement left-sided weakness. Patient discharged to F. Agree with resident Normal [facility] Protein mass [facility] Patient: CARLINE VILLARREAL MR#: [id number] [place], [place] [address] : 1945 Ord. .: Dept: PDOC Loc: 3MED-ONC 340-1 Physician Progress Note Service Dt: 05/07/17 Report#: [id number] Adm Dt: 05/04/17 Dis Dt: 05/07/17 Note [...] abdominal pain. Currently awaiting for precert to [facility] for rehab. O: VSS, afebrile PHYSICAL EXAM: [...] plavix and lipitor - aggressive rehab at [facility] - aspirin discontinued - final urine culture positive for E coli sensitive to cefazolin, keflex for a total of 7-day course prescribed - resumed home dosed antihypertensive medication - lovenox SC while she's in house Normal [facility] Basic Metabolic Panel $$$on 05-06-2017 Anion gap 3 molar conc 13.1 mmol/L Normal P [facility] Comment on above: Performed By: #### C BC, BMP, PHOS, MG, CK, UR, LDLP, URINC ####[facility] [place] [address] Calcium mass conc 8.9 mg/dL Normal 8.5-10.1 [facility] Comment on above: Performed By: #### C BC, BMP, PHOS, MG, CK, UR, LDLP, URINC ####[facility] [place] [address] Chloride molar conc 109 mmol/L High 98-107 [facility] Comment on above: Performed By: #### C BC, BMP, PHOS, MG, CK, UR, LDLP, URINC ####[facility] [place] [address] CO2 molar conc 24 mmol/L Normal 21-32 [facility] Comment on above: Performed By: #### C BC, BMP, PHOS, MG, CK, UR, LDLP, URINC ####[facility] [place] [address] Creatinine mass conc 0.9 mg/dL Normal 0.6-1.3 [facility] Comment on above: Performed By: #### C BC, BMP, PHOS, MG, CK, UR, LDLP, URINC ####[facility] [place] [address] Estimated Creatinine Clearance 41 mL/min Low 75-115 [facility] Comment on above: Performed By: #### C BC, BMP, PHOS, MG, CK, UR, LDLP, URINC ####[facility] [place] [address] GFR () >60 Normal Pa [facility] Comment on above: Performed By: #### C BC, BMP, PHOS, MG, CK, UR, LDLP, URINC ####[address] [address] GFR (Non ) >60 Normal [facility] Comment on above: Result Comment: eGFR Units of measure: mL/min/1.73 m 2 Performed By: #### C BC, BMP, PHOS, MG, CK, UR, LDLP, URINC ####[address] [address] Glucose mass conc 114 mg/dL High 74-106 [facility] Comment on above: Performed By: #### C BC, BMP, PHOS, MG, CK, UR, LDLP, URINC ####[address] [address] Potassium molar conc 4.1 mmol/L Normal 3.5-5.1 [facility] Comment on above: Performed By: #### C BC, BMP, PHOS, MG, CK, UR, LDLP, URINC ####[address] [address] Sodium molar conc 142 mmol/L Normal 136-145 [facility] Comment on above: Performed By: #### C BC, BMP, PHOS, MG, CK, UR, LDLP, URINC ####[address] [address] Urea nitrogen mass conc (Bld) 21 mg/dL High 7-18 [facility] Comment on above: Performed By: #### C BC, BMP, PHOS, MG, CK, UR, LDLP, URINC ####[address] [address] [place] CTAon 05-06-2017 [place] [facility] Patient: CARLINE VILLARREAL [address] [facility] MR#: [id number] [place] [id number] : 1945 [facility]#: [id number] Ord. : Beryl Perez DO, Resident Dept: Diagnostic Imaging Loc: 9W 922-2 DI REPORT Service Dt:05/05/17 Report#: [id number] Adm Dt: 05/04/17 Dis Dt: Comments: STUDY: CT [place] [facility]; 05/05/2017 10:26 pm INDICATION: stroke. COMPARISON: MRI scan of the brain dated 05/05/2017 at 10:49 a.m. ACCESSION NUMBER(S): [id number] ORDERING CLINICIAN: Beryl Perez TECHNIQUE: Low dose [...] by: Finn Barillas 05/06/2017 10:11 AM Normal [facility] Complete Blood Count w/diff $$on 05-06-2017 Basophils Auto #/vol (Bld) 0.0 10 /uL Low 0.04-0.9 [facility] Comment on above: Performed By: #### C BC, BMP, PHOS, MG, CK, UR, LDLP, URINC ####[address] [address] Basophils/100 WBC Auto (Bld) 1 % Normal 0-1 [facility] Comment on above: Performed By: #### C BC, BMP, PHOS, MG, CK, UR, LDLP, URINC ####[address] [address] Eosinophils Auto #/vol (Bld) 0.2 10 3/uL Normal 0.03-0.6 [facility] Comment on above: Performed By: #### C BC, BMP, PHOS, MG, CK, UR, LDLP, URINC ####[address] [address] Eosinophils/100 WBC Auto (Bld) 4 % High 0-3 [facility] Comment on above: Performed By: #### C BC, BMP, PHOS, MG, CK, UR, LDLP, URINC ####[address] [address] Erythrocyte distribution width Auto Ratio (RBC) 13.6 % Normal 11.5-14.5 [facility] Comment on above: Performed By: #### C BC, BMP, PHOS, MG, CK, UR, LDLP, URINC ####[address] [address] Hematocrit Auto Volume Fraction (Bld) 27.0 % Low 35-47 [facility] Comment on above: Performed By: #### C BC, BMP, PHOS, MG, CK, UR, LDLP, URINC ####[place] [address] Hemoglobin mass conc (Bld) 8.7 g/dL Low 12.0-16.0 [facility] Comment on above: Performed By: #### C BC, BMP, PHOS, MG, CK, UR, LDLP, URINC ####[place] [address] Immature Gran# (Auto) 0.0 10 3/uL Normal Pa [facility] Comment on above: Performed By: #### C BC, BMP, PHOS, MG, CK, UR, LDLP, URINC ####[place] [address] Immature granulocytes #/vol (Bld) 0.2 % Normal 0.0-0.9 [facility] Comment on above: Performed By: #### C BC, BMP, PHOS, MG, CK, UR, LDLP, URINC ####[place] [address] Lymphocytes Auto #/vol (Bld) 0.9 10 3/uL Low 1-3.5 [facility] Comment on above: Performed By: #### C BC, BMP, PHOS, MG, CK, UR, LDLP, URINC ####[place] [address] Lymphocytes/100 WBC Auto (Bld) 18 % Low 24-44 [facility] Comment on above: Performed By: #### C BC, BMP, PHOS, MG, CK, UR, LDLP, URINC ####[place] [id number] MCH Auto Entitic mass (RBC) 33.2 pg Normal 27-34 [facility] Comment on above: Performed By: #### C BC, BMP, PHOS, MG, CK, UR, LDLP, URINC ####[place] [address] MCH Auto Entitic mass (RBC) 32.2 g/dL Low 33-37 [facility] Comment on above: Performed By: #### C BC, BMP, PHOS, MG, CK, UR, LDLP, URINC ####[place] 3258229 MCV Auto Entitic volume (RBC) 103.1 fL High 80-100 [facility] Comment on above: Performed By: #### C BC, BMP, PHOS, MG, CK, UR, LDLP, URINC ####[place] 3258229 Monocytes Auto #/vol (Bld) 0.3 10 3/uL Normal 0.04-0.9 [facility] Comment on above: Performed By: #### C BC, BMP, PHOS, MG, CK, UR, LDLP, URINC ####[place] 3258229 Monocytes/100 WBC Auto (Bld) 6 % Normal 1-8 [facility] Comment on above: Performed By: #### C BC, BMP, PHOS, MG, CK, UR, LDLP, URINC ####[address] [address] Neutrophils Auto #/vol (Bld) 3.7 10 3/uL Normal 1.8-7.0 [facility] Comment on above: Performed By: #### C BC, BMP, PHOS, MG, CK, UR, LDLP, URINC ####[address] [address] Neutrophils/100 WBC Auto (Bld) 72 % Normal 42-76 [facility] Comment on above: Performed By: #### C BC, BMP, PHOS, MG, CK, UR, LDLP, URINC ####[address] [address] Nucleated RBC/100 WBC Ratio (Bld) 0.0 % Normal 0.0-0.0 [facility] Comment on above: Performed By: #### C BC, BMP, PHOS, MG, CK, UR, LDLP, URINC ####[address] [address] Platelet mean volume Auto Entitic volume (Bld) 10.5 fL High 7.4-10.4 [facility] Comment on above: Performed By: #### C BC, BMP, PHOS, MG, CK, UR, LDLP, URINC ####[address] [address] Platelets Auto #/vol (Bld) 211 10 3/uL Normal 150-400 [facility] Comment on above: Performed By: #### C BC, BMP, PHOS, MG, CK, UR, LDLP, URINC ####[address] [address] RBC Auto #/vol (Bld) 2.62 10 6/uL Low 4.2-5.4 [facility] Comment on above: Performed By: #### C BC, BMP, PHOS, MG, CK, UR, LDLP, URINC ####[address] [address] WBC Auto #/vol (Bld) 5.2 10 3/uL Normal 4.0-11.0 [facility] Comment on above: Performed By: #### C BC, BMP, PHOS, MG, CK, UR, LDLP, URINC ####[address] [address] Discharge Summaryon 05-06-20 Discharge Summary [facility] Patient: CARLINE VILLARREAL [address] [facility] MR#: [id number] [place], [place] [address] [facility] 1945 [id number] : [facility] Dis[facility] Summary Service Dt: 05/06/17 Report#: [id number] Adm Dt: 05/04/17 Dis Dt: 05/07/17 Discharge [...] will continue to follow up patient at [facility]. Aggressive PT/OT. Referrals: Grant Colon MD [Primary [...] Time with Patient: > 35 minutes Normal [facility] Echocardiogramon 05-06-2017 Echocardiogram [facility] , [address] [place], [place] [address] and TRANSTHORACIC ECHOCARDIOGRAM REPORT Patient Name: CARLINE Granados PHIL Reading Physician: DENICE De Los Santos MD Study Date: 05/06/2017 Referring Physician: Lorenzo Mohamud MRN/PID: [id number] PCP: Patient Department Location: [place] 9th floor CCU Stepdown Accession/Order#: [id number] Patient Location: 9W Date of : 1945 71 years Nurse: Gender: F Bilingual Nanny: Fan Cobb Admission Status: Inpatient - Routine CC Report to: CVC Height: 150.00 cm CC Report to: Weight: 100.00 kg CC Report to: BSA: 1.92 m2 Study Type: Echo Blood Pressure: 118 /83 mmHg Diagnosis/ICD: G45.9 - Transient cerebral ischemic attack, unspecified (NOT on LCD) Indication: Transischemic Attack Procedure/CPT: Echo Complete w/Full Doppler (37004) Patient History: BMI: Obese >30 Pertinent History: [...] at 7:50:07 PM Wall Scoring Final Normal [facility] Neurology Progress Noteon Protein mass conc [facility] Patient: CARLINE VILLARREAL [address] MR#: [id number] [place], [place] [address] : 1945 Ord. : Dept: PDOC Loc: 3MED-ONC 340-1 Neurology Progress Note Service Dt: 05/06/17 Report#: [id number] Adm Dt: 05/04/17 Dis Dt: Neurology Progress [...] @ 100 mls/hr IVPB DAILY@ 0500 ELIZABETH Rx#:[id number] Rocephin 1 GM In Iso- 50 Osmotic Dextrose 50 ml @ 100 mls/hr IVPB STAT STA Rx#:[id number] Sodium Chloride 0.9% 1, 1798.75 1000 000 ML @ 75 mls/hr IV . [id number] [facility] Rx#:[id number] Oral 630 240 150 Output: Urine 525 [...] (Auto) 72 Lymph % (Auto) 18 L [place] % (Auto) 6 Eos % (Auto) 4 H Baso % (Auto) 1 Nucleat RBC Rel Count 0.0 Immature Gran # (Auto) 0.0 Neut # (Auto) 3.7 Lymph # (Auto) 0.9 L [place] # (Auto) 0.3 Eos # (Auto) 0.2 [...] Atorvastatin Calcium (Lipitor) 40 mg PO DAILY [facility] Last Admin: 05/06/17 08:38 Dose: 40 mg Clopidogrel Bisulfate (Plavix) 75 mg PO DAILY [facility] Last Admin: 05/06/17 08:38 Dose: 75 mg Enoxaparin Sodium (Lovenox) 40 mg SC DAILY [facility] Last Admin: 05/06/17 08:35 Dose: 40 mg Ferrous Sulfate (Feosol Tablet) 325 mg PO DAILY@0800 [facility] Last Admin: 05/06/17 09:48 Dose: 325 mg Ceftriaxone Sodium 1 gm/ (Dextrose) 50 mls @ 100 mls/hr IVPB DAILY@0500 [facility] Last Infusion: 05/06/17 07:15 Dose: Infused Lidocaine (Lidoderm 5% Patch) 1 patch EX DAILY [facility] Last Admin: 05/06/17 08:37 Dose: 1 patch Lisinopril (Zestril/Prinivil) 5 mg PO DAILY [facility] Last Admin: 05/06/17 08:37 Dose: 5 mg Melatonin (Melatonin) 3 mg PO QHS PRN PRN Reason: INSOMNIA Last Admin: 05/05/17 22:44 Dose: 3 mg Oxycodone/Acetaminophe n (Percocet) 1 tab PO Q6 PRN PRN Reason: Pain-severe (-04/13) Last Admin: 05/06/17 08:35 Dose: 1 tab [...] 05/05/17 18:37 05/05/17 18:38 05/06/17 17:50 Normal [facility] Progress Noteson 05-06-2017 Protein mass conc [facility] Patient: CARLINE VILLARREAL [address] [facility] MR#: [id number] [place], [place] [address] : 1945 Ord. : Dept: PDOC Loc: ED-ONC 340-1 Physician Progress Note Service Dt: 05/06/17 Report#: [id number] Adm Dt: 05/04/17 Dis Dt: Note - Patient Note Observation: 05/06/17 16:37 Patient fully evaluated with resident team. 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 Plan for discharge to rehabilitation for her ECF depending on approval by insurance Normal [facility] Basic Metabolic Panel $$$on 05-05-2017 Anion gap 3 molar conc 16.3 mmol/L Normal P [facility] Comment on above: Performed By: #### C BC, BMP, PHOS, MG, CK, UR, LDLP, URINC ####[facility] [place] [address] Calcium mass conc 8.5 mg/dL Normal 8.5-10.1 [facility] Comment on above: Performed By: #### C BC, BMP, PHOS, MG, CK, UR, LDLP, URINC ####[facility] [place] [address] Chloride molar conc 110 mmol/L High 98-107 [facility] Comment on above: Performed By: #### C BC, BMP, PHOS, MG, CK, UR, LDLP, URINC ####[facility] [place] [address] CO2 molar conc 22 mmol/L Normal 21-32 [facility] Comment on above: Performed By: #### C BC, BMP, PHOS, MG, CK, UR, LDLP, URINC ####[address] [address] Creatinine mass conc 1.2 mg/dL Normal 0.6-1.3 [facility] Comment on above: Performed By: #### C BC, BMP, PHOS, MG, CK, UR, LDLP, URINC ####[address] [address] Estimated Creatinine Clearance 31 mL/min Low 75-115 [facility] Comment on above: Performed By: #### C BC, BMP, PHOS, MG, CK, UR, LDLP, URINC ####[address] [address] GFR () >60 Normal [facility] Comment on above: Performed By: #### C BC, BMP, PHOS, MG, CK, UR, LDLP, URINC ####[address] [address] GFR (Non ) >60 Normal [facility] Comment on above: Result Comment: eGFR Units of measure: mL/min/1.73 m 2 Performed By: #### C BC, BMP, PHOS, MG, CK, UR, LDLP, URINC ####[address] [address] Glucose mass conc 129 mg/dL High 74-106 [facility] Comment on above: Performed By: #### C BC, BMP, PHOS, MG, CK, UR, LDLP, URINC ####[address] [address] Potassium molar conc 4.3 mmol/L Normal 3.5-5.1 [facility] Comment on above: Performed By: #### C BC, BMP, PHOS, MG, CK, UR, LDLP, URINC ####[facility] [place] [address] Sodium molar conc 144 mmol/L Normal 136-145 [facility] Comment on above: Performed By: #### C BC, BMP, PHOS, MG, CK, UR, LDLP, URINC ####[facility] [place], [place] [id number] Urea nitrogen mass conc (Bld) 35 mg/dL High 7-18 [facility] Comment on above: Performed By: #### C BC, BMP, PHOS, MG, CK, UR, LDLP, URINC ####[facility] [place] [address] Brain Without Contraston Brain Without Contrast [facility] Patient: CARLINE VILLARREAL [address] [facility] MR#: [id number] [place], [place] [address] : 1945 Ord. .: Ramírez Cage DO, Resident Dept: Diagnostic Imaging Loc: 9W 922-2 DI REPORT Service Dt:05/05/17 Report#: [id number] Adm Dt: 05/04/17 Dis Dt: Comments: STUDY: MR Brain Without Contrast; MR Head W/O Contrast; MR Neck W/O Contrast; 05/05/2017 11:00 am INDICATION: evaluate for possible stroke; evaluate for stroke. Left-sided weakness. COMPARISON: Head CT May 04, 2017 and prior MRI September 25, 2013 ACCESSION NUMBER(S): [id number]; [id number]; [id number] ORDERING CLINICIAN: Ramírez Cage TECHNIQUE: Axial T2, FLAIR, DWI and sagittal and coronal T1 weighted images of brain were acquired. Axial gradient echo T2 weighted images were also acquired. [id number] MRA of the head and neck was [...] However, superimposed stenosis cannot be excluded. An [place] alert message was sent to the referring physician Dr. Ramírez Cage through the PACS support/Notifi system at 11:42 am on 05/05/[address]Jennifer Pearl Dictated by: Nela Pearl Electronically Signed by: Nela Pearl 05/05/2017 11:41 AM Normal [facility] Carotid Duplex Scanon 2016 Carotid Duplex Scan [facility] , [address] [place] [address] and Vascular Lab Report Carotid Artery Duplex Ultrasound Patient Name: CARLINE VILLARREAL Study Date: 05/05/2017 Reading Physician: HAIDER Kaiser MD MRN/PID: [id number] Referring Physician: BIBI Mohamud Accession/Order#: [id number] PCP: Grant Colon Date of : 1945 CC Report to: Gender: F Technologist: Kacey Be Admission Status: Inpatient Technologist 2: Facility Performed: [facility] Location Performed: [facility] Diagnosis/ICD: 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 Procedure/CPT: 20237 - Cerebrovacular Carotid Duplex scan complete CONCLUSIONS: [...] 1.2 1.0 HAIDER Kaiser MD Final Normal [facility] Complete Blood Count w/diff $$on 05-05-2017 Basophils Auto #/vol (Bld) 0.0 10 /uL Low 0.04-0.9 [facility] Comment on above: Performed By: #### C BC, BMP, PHOS, MG, CK, UR, LDLP, URINC ####[facility] [place] [address] Basophils/100 WBC Auto (Bld) 0 % Normal 0-1 [facility] Comment on above: Performed By: #### C BC, BMP, PHOS, MG, CK, UR, LDLP, URINC ####[facility] [place] [id number] Eosinophils Auto #/vol (Bld) 0.2 10 3/uL Normal 0.03-0.6 [facility] Comment on above: Performed By: #### C BC, BMP, PHOS, MG, CK, UR, LDLP, URINC ####[place] [address] Eosinophils/100 WBC Auto (Bld) 2 % Normal 0-3 [facility] Comment on above: Performed By: #### C BC, BMP, PHOS, MG, CK, UR, LDLP, URINC ####[place] [address] Erythrocyte distribution width Auto Ratio (RBC) 13.7 % Normal 11.5-14.5 [facility] Comment on above: Performed By: #### C BC, BMP, PHOS, MG, CK, UR, LDLP, URINC ####[place] [address] Hematocrit Auto Volume Fraction (Bld) 24.7 % Low 35-47 [facility] Comment on above: Performed By: #### C BC, BMP, PHOS, MG, CK, UR, LDLP, URINC ####[place] [address] Hemoglobin mass conc (Bld) 8.0 g/dL Low 12.0-16.0 [facility] Comment on above: Performed By: #### C BC, BMP, PHOS, MG, CK, UR, LDLP, URINC ####[place] [id number] Immature Gran# (Auto) 0.0 10 3/uL Normal [facility] Comment on above: Performed By: #### C BC, BMP, PHOS, MG, CK, UR, LDLP, URINC ####[place] [id number] Immature granulocytes #/vol (Bld) 0.3 % Normal 0.0-0.9 [facility] Comment on above: Performed By: #### C BC, BMP, PHOS, MG, CK, UR, LDLP, URINC ####[address] [address] Lymphocytes Auto #/vol (Bld) 0.8 10 3/uL Low 1-3.5 [facility] Comment on above: Performed By: #### C BC, BMP, PHOS, MG, CK, UR, LDLP, URINC ####[address] [address] Lymphocytes/100 WBC Auto (Bld) 13 % Low 24-44 [facility] Comment on above: Performed By: #### C BC, BMP, PHOS, MG, CK, UR, LDLP, URINC ####[address] [address] MCH Auto Entitic mass (RBC) 32.4 g/dL Low 33-37 [facility] Comment on above: Performed By: #### C BC, BMP, PHOS, MG, CK, UR, LDLP, URINC ####[address] [address] MCH Auto Entitic mass (RBC) 33.6 pg Normal 27-34 [facility] Comment on above: Performed By: #### C BC, BMP, PHOS, MG, CK, UR, LDLP, URINC ####[address] [address] MCV Auto Entitic volume (RBC) 103.8 fL High 80-100 [facility] Comment on above: Performed By: #### C BC, BMP, PHOS, MG, CK, UR, LDLP, URINC ####[address] [address] Monocytes Auto #/vol (Bld) 0.4 10 3/uL Normal 0.04-0.9 [facility] Comment on above: Performed By: #### C BC, BMP, PHOS, MG, CK, UR, LDLP, URINC ####[address] [address] Monocytes/100 WBC Auto (Bld) 7 % Normal 1-8 [facility] Comment on above: Performed By: #### C BC, BMP, PHOS, MG, CK, UR, LDLP, URINC ####[address] [address] Neutrophils Auto #/vol (Bld) 4.8 10 3/uL Normal 1.8-7.0 [facility] Comment on above: Performed By: #### C BC, BMP, PHOS, MG, CK, UR, LDLP, URINC ####[address] [address] Neutrophils/100 WBC Auto (Bld) 77 % High 42-76 [facility] Comment on above: Performed By: #### C BC, BMP, PHOS, MG, CK, UR, LDLP, URINC ####[address] [address] Nucleated RBC/100 WBC Ratio (Bld) 0.0 % Normal 0.0-0.0 [facility] Comment on above: Performed By: #### C BC, BMP, PHOS, MG, CK, UR, LDLP, URINC ####[address] [address] Platelet mean volume Auto Entitic volume (Bld) 10.6 fL High 7.4-10.4 [facility] Comment on above: Performed By: #### C BC, BMP, PHOS, MG, CK, UR, LDLP, URINC ####[address] [address] Platelets Auto #/vol (Bld) 203 10 3/uL Normal 150-400 [facility] Comment on above: Performed By: #### C BC, BMP, PHOS, MG, CK, UR, LDLP, URINC ####[address] [address] RBC Auto #/vol (Bld) 2.38 10 6/uL Low 4.2-5.4 Pa [facility] Comment on above: Performed By: #### C BC, BMP, PHOS, MG, CK, UR, LDLP, URINC ####[facility] [facility] [place], [place] [id number] WBC Auto #/vol (Bld) 6.2 10 3/uL Normal 4.0-11.0 [facility] Comment on above: Performed By: #### C BC, BMP, PHOS, MG, CK, UR, LDLP, URINC ####[facility] [place], [place] [id number] Consultation Reporton 2016 Consultation Report [facility] Patient: CARLINE VILLARREAL [address] [facility] MR#: [id number] [place], [place] [address] : 1945 OrdMarkos Draper: Dept: PDOC Loc: 9W 922-2 Consultation Service Dt: 05/05/17 Report#: [id number] Adm Dt: 05/04/17 Dis Dt: Initial Physician [...] 03:43) - Medications Home Medications: Aspirin [Aspirin, "Baby" (CHEWABLE)] 81 mg PO DAILY 09/24/13 [History [...] Clopidogrel Bisulfate (Plavix) 75 mg PO DAILY [facility] Haloperidol (Haldol) 1 mg PO Q8 PRN PRN Reason: AGITATION Last Admin: 05/05/17 13:08 Dose: 1 mg Ceftriaxone Sodium 1 gm/ (Dextrose) 50 mls @ 100 mls/hr IVPB DAILY@0500 [facility] Last Infusion: 05/05/17 06:17 Dose: Infused Lidocaine (Lidoderm 5% Patch) 1 patch EX DAILY [facility] Last Admin: 05/05/17 13:08 Dose: 1 patch Lisinopril (Zestril/Prinivil) 5 mg PO DAILY [facility] Last Admin: 05/05/17 08:48 Dose: 5 mg Lorazepam (Ativan) 2 mg PO Q8 PRN PRN Reason: Anxiety Last Admin: 05/05/17 05:36 Dose: 2 mg Melatonin (Melatonin) 3 mg PO QHS PRN PRN Reason: INSOMNIA Last Admin: 05/04/17 21:19 Dose: 3 mg Oxycodone/Acetaminophe n (Percocet) 1 tab PO Q6 PRN PRN Reason: Pain-severe (-04/13) Last Admin: 05/05/17 17:05 Dose: 1 tab [...] 77 H Lymph % (Auto) 13 L [place] % (Auto) 7 Eos % (Auto) 2 Baso % (Auto) 0 Nucleat RBC Rel Count 0.0 Immature Gran # (Auto) 0.0 Neut # (Auto) 4.8 Lymph # (Auto) 0.8 L [place] # (Auto) 0.4 Eos # (Auto) 0.2 [...] @ 100 mls/hr IVPB DAILY@ 0500 [facility] Rx#:[id number] Rocephin 1 GM In Iso- 50 Osmotic Dextrose 50 ml @ 100 mls/hr IVPB STAT STA Rx#:[id number] Sodium Chloride 0.9% 1, 1798.75 000 ML @ 75 mls/hr IV . [id number] [facility] Rx#:[id number] Oral 630 240 Other: Height 1.5 m [...] an outpatient. 05/05/17 18:37 05/05/17 18:38 Normal [facility] Ferritinon 05-05-2017 Ferritin Pending Normal 8.0-252.0 [facility] Comment on above: Order Comment: Add o n to today's blood, if available? YAdd on to today's blood, if available? YAdd on to today's blood, if available? YAdd on to today's blood, if available? YAdd on to today's blood, if available? Y Performed By: #### C BC, BMP, PHOS, MG, CK, UR, LDLP, URINC ####[facility] [place] [address] Ferritin 60.2 ng/mL Normal 8.0-252.0 [facility] Comment on above: Performed By: #### C BC, BMP, PHOS, MG, CK, UR, LDLP, URINC ####[address] [id number] Folateon 05-05-2017 Folate Pending Normal 3.1-17.5 [facility] Comment on above: Order Comment: Add o n to today's blood, if available? YAdd on to today's blood, if available? YAdd on to today's blood, if available? YAdd on to today's blood, if available? YAdd on to today's blood, if available? Y Performed By: #### C BC, BMP, PHOS, MG, CK, UR, LDLP, URINC ####[address] [id number] Folate 42.3 ng/mL High 3.1-17.5 [facility] Comment on above: Performed By: #### C BC, BMP, PHOS, MG, CK, UR, LDLP, URINC ####[address] [id number] General Medical Progress Not dominik 05-05-2017 Protein mass conc [facility] Patient: CARLINE VILLARREAL [address] [facility] MR#: [id number] [place], [place] [address] : 1945 OrdMarkos Draper: Dept: PDOC Loc: 9W 922-2 General Medical Progress Note Service Dt: 05/05/17 Report#: [id number] Adm Dt: 05/04/17 Dis Dt: General-Medical Progress [...] ml @ 100 mls/hr IVPB DAILY@ 0500 [facility] Rx#:[id number] Sodium Chloride 0.9% 1, 1000 000 ML @ 75 mls/hr IV . [id number] [facility] Rx#:[id number] Oral 390 120 - Patient Exam General [...] - Medications Meds: Current Medications Aspirin (Aspirin, "Baby" (Chewable)) 81 mg PO DAILY [facility] Last Admin: 05/05/17 08:49 Dose: 81 mg Atorvastatin Calcium (Lipitor) 80 mg PO DAILY [facility] Last Admin: 05/05/17 08:49 Dose: 80 mg Haloperidol (Haldol) 1 mg PO Q8 PRN PRN Reason: AGITATION Ceftriaxone Sodium 1 gm/ (Dextrose) 50 mls @ 100 mls/hr IVPB DAILY@0500 [facility] Last Infusion: 05/05/17 06:17 Dose: Infused Sodium Chloride (Sodium Chloride 0.9%) 1,000 mls @ 75 mls/hr IV .[id number] [facility] Last Admin: 05/05/17 02:29 Dose: 75 mls/hr Lidocaine (Lidoderm 5% Patch) 1 patch EX DAILY [facility] Lisinopril (Zestril/Prinivil) 5 mg PO DAILY [facility] Last Admin: 05/05/17 08:48 Dose: 5 mg Lorazepam (Ativan) 2 mg PO Q8 PRN PRN Reason: Anxiety Last Admin: 05/05/17 05:36 Dose: 2 mg Melatonin (Melatonin) 3 mg PO QHS PRN PRN Reason: INSOMNIA Last Admin: 05/04/17 21:19 Dose: 3 mg Oxycodone/Acetaminophe n (Percocet) 1 tab PO Q6 PRN PRN Reason: Pain-severe () Last Admin: 05/05/17 08:49 Dose: 1 tab [...] Plan: 05/05/17 12:53 - SCDs bilaterally Normal [facility] Haptoglobinon 05-05-2017 Haptoglobin 46 mg/dL Normal 30-200 [facility] Comment on above: Result Comment: Perf orming Site: [facility] [address] [place], [place] Performed By: #### C BC, BMP, PHOS, MG, CK, UR, LDLP, URINC ####[facility] [place], [place] [id number] Head W/O Contraston 05-05-20 Head W/O Contrast [facility] Patient: CARLINE VILLARREAL [address] [facility] MR#: [id number] [place], [place] [address] : 1945 Ord. : Ramírez Cage DO, Resident Dept: Diagnostic Imaging Loc: 9 922-2 DI REPORT Service Dt:05/05/17 Report#: [id number] Adm Dt: 05/04/17 Dis Dt: Comments: STUDY: MR Brain Without Contrast; MR Head W/O Contrast; MR Neck W/O Contrast; 05/05/2017 11:00 am INDICATION: evaluate for possible stroke; evaluate for stroke. Left-sided weakness. COMPARISON: Head CT May 04, 2017 and prior MRI September 25, 2013 ACCESSION NUMBER(S): [id number]; [id number]; [id number] ORDERING CLINICIAN: Ramírez Cage TECHNIQUE: Axial T2, FLAIR, DWI and sagittal and coronal T1 weighted images of brain were acquired. Axial gradient echo T2 weighted images were also acquired. [id number] MRA of the head and neck was [...] However, superimposed stenosis cannot be excluded. An [place] alert message was sent to the referring physician Dr. Ramírez Cage through the PACS support/Notifi system at 11:42 am on 05/05/[address]Jennifer Pearl Dictated by: Nela Pearl Electronically Signed by: Nela Pearl 05/05/2017 11:41 AM Normal [facility] Iron Profileon 05-05-2017 % Iron Saturation Pending Normal 16-35 [facility] Comment on above: Order Comment: Add o n to today's blood, if available? YAdd on to today's blood, if available? YAdd on to today's blood, if available? YAdd on to today's blood, if available? YAdd on to today's blood, if available? Y Performed By: #### C BC, BMP, PHOS, MG, CK, UR, LDLP, URINC ####[facility] [place] [address] Iron mass conc Pending Normal 50-170 [facility] Comment on above: Order Comment: Add o n to today's blood, if available? YAdd on to today's blood, if available? YAdd on to today's blood, if available? YAdd on to today's blood, if available? YAdd on to today's blood, if available? Y Performed By: #### C BC, BMP, PHOS, MG, CK, UR, LDLP, URINC ####[facility] [place] [address] Total Iron Binding Capacity Pending Normal 250-450 [facility] Comment on above: Order Comment: Add o n to today's blood, if available? YAdd on to today's blood, if available? YAdd on to today's blood, if available? YAdd on to today's blood, if available? YAdd on to today's blood, if available? Y Performed By: #### C BC, BMP, PHOS, MG, CK, UR, LDLP, URINC ####[facility] [place] [address] % Iron Saturation 16 % Normal 16-35 [facility] Comment on above: Performed By: #### C BC, BMP, PHOS, MG, CK, UR, LDLP, URINC ####[address] [address] Iron mass conc 46 ug/dL Low 50-170 [facility] Comment on above: Performed By: #### C BC, BMP, PHOS, MG, CK, UR, LDLP, URINC ####[address] [address] Total Iron Binding Capacity 280 ug/dL Normal 250-450 [facility] Comment on above: Performed By: #### C BC, BMP, PHOS, MG, CK, UR, LDLP, URINC ####[address] [address] Lactate Dehydrogenase (LDH)o n 05-05-2017 LDH enzyme act/vol Pending Normal 84-246 [facility] Comment on above: Order Comment: Add o n to today's blood, if available? YAdd on to today's blood, if available? YAdd on to today's blood, if available? YAdd on to today's blood, if available? YAdd on to today's blood, if available? Y Performed By: #### C BC, BMP, PHOS, MG, CK, UR, LDLP, URINC ####[address] [address] Neck W/O Contraston 05-05-20 17 Neck W/O Contrast [facility] Patient: CARLINE VILLARREAL [address] [facility] MR#: [id number] [place], [place] [address] : 1945 [facility]#: [id number] Ord. : Ramírez Cage DO, Resident Dept: Diagnostic Imaging Loc: 9W 922-2 DI REPORT Service Dt:05/05/17 Report#: [id number] Adm Dt: 05/04/17 Dis Dt: Comments: STUDY: MR Brain Without Contrast; MR Head W/O Contrast; MR Neck W/O Contrast; 05/05/2017 11:00 am INDICATION: evaluate for possible stroke; evaluate for stroke. Left-sided weakness. COMPARISON: Head CT May 04, 2017 and prior MRI September 25, 2013 ACCESSION NUMBER(S): [id number]; [id number]; [id number] ORDERING CLINICIAN: Ramírez Cage TECHNIQUE: Axial T2, FLAIR, DWI and sagittal and coronal T1 weighted images of brain were acquired. Axial gradient echo T2 weighted images were also acquired. Mgrv-gu-[id number] MRA of the head and neck was [...] However, superimposed stenosis cannot be excluded. An [place] alert message was sent to the referring physician Dr. Ramírez Cage through the PACS support/[employer] system at 11:42 am on 05/05/[address]Jennifer Pearl Dictated by: Nela Pearl Electronically Signed by: eNla Pearl 05/05/2017 11:41 AM Normal [facility] Progress Noteson 05-05-2017 Protein mass conc [facility] Patient: CARLINE VILLARREAL [address] [facility] MR#: [id number] [place], [place] [address] : 1945 OrdMarkos Draper: Dept: PDOC Loc: 9 922-2 Physician Progress Note Service Dt: 05/05/17 Report#: [id number] Adm Dt: 05/04/17 Dis Dt: Note - Patient Note Observation: 05/05/17 17:54 Patient fully evaluated with resident team. Agree with resident history and physical and note. MRI is consistent with a new right-sided [facility] Continue supportive measures rehabilitation transfer possibly tomorrow. Normal [facility] Reticulocyte Counton 017 Reticulocyte Count 5.6 % High 0.5-1.5 [facility] Comment on above: Order Comment: Add o n to today's blood, if available? YAdd on to today's blood, if available? YAdd on to today's blood, if available? YAdd on to today's blood, if available? YAdd on to today's blood, if available? Y Performed By: #### C BC, BMP, PHOS, MG, CK, UR, LDLP, URINC ####[facility] [place] [address] Vitamin B12on 05-05-2017 Cobalamin (Vitamin B12) mass conc Pending Normal 254-1320 [facility] Comment on above: Order Comment: Add o n to today's blood, if available? YAdd on to today's blood, if available? YAdd on to today's blood, if available? YAdd on to today's blood, if available? YAdd on to today's blood, if available? Y Performed By: #### C BC, BMP, PHOS, MG, CK, UR, LDLP, URINC ####[facility] [place] [address](325) Cobalamin (Vitamin B12) mass conc 403 pg/mL Normal 254-1320 [facility] Comment on above: Performed By: #### C BC, BMP, PHOS, MG, CK, UR, LDLP, URINC ####[facility] [place] [address] Basic Metabolic Panel $$$on 05-04-2017 Anion gap 3 molar conc 15.1 mmol/L Normal P [facility] Comment on above: Performed By: #### C BC, BMP, PHOS, MG, CK, UR, LDLP, URINC ####[facility] [place] [address] Calcium mass conc 8.8 mg/dL Normal 8.5-10.1 [facility] Comment on above: Performed By: #### C BC, BMP, PHOS, MG, CK, UR, LDLP, URINC ####[facility] [place] [address] Chloride molar conc 106 mmol/L Normal 98-107 [facility] Comment on above: Performed By: #### C BC, BMP, PHOS, MG, CK, UR, LDLP, URINC ####[facility] [place] [address] CO2 molar conc 24 mmol/L Normal 21-32 [facility] Comment on above: Performed By: #### C BC, BMP, PHOS, MG, CK, UR, LDLP, URINC ####[facility] [place] [address] Creatinine mass conc 1.6 mg/dL High 0.6-1.3 [facility] Comment on above: Performed By: #### C BC, BMP, PHOS, MG, CK, UR, LDLP, URINC ####[facility] [place] [address] GFR () 41 Normal [facility] Comment on above: Performed By: #### C BC, BMP, PHOS, MG, CK, UR, LDLP, URINC ####[address] [address] GFR (Non ) 34 Normal [facility] Comment on above: Result Comment: eGFR Units of measure: mL/min/1.73 m 2 Performed By: #### C BC, BMP, PHOS, MG, CK, UR, LDLP, URINC ####[address] [address] Glucose mass conc 125 mg/dL High 74-106 [facility] Comment on above: Performed By: #### C BC, BMP, PHOS, MG, CK, UR, LDLP, URINC ####[address] [address] Potassium molar conc 4.1 mmol/L Normal 3.5-5.1 [facility] Comment on above: Performed By: #### C BC, BMP, PHOS, MG, CK, UR, LDLP, URINC ####[address] [address] Sodium molar conc 141 mmol/L Normal 136-145 [facility] Comment on above: Performed By: #### C BC, BMP, PHOS, MG, CK, UR, LDLP, URINC ####[address] [address] Urea nitrogen mass conc (Bld) 56 mg/dL High 7-18 [facility] Comment on above: Performed By: #### C BC, BMP, PHOS, MG, CK, UR, LDLP, URINC ####[address] [address] Brain or Head without Contra ston 05-04-2017 Brain or Head without Contrast [facility] Patient: CARLINE VILLARREAL [address] [facility] MR#: [id number] [place] [address] : 1945 Ord. .: Grant Henderson DO Dept: Diagnostic Imaging Loc: 1EDA DI REPORT Service Dt:05/04/17 Report#: [id number] Adm Dt: 05/04/17 Dis Dt: Comments: STUDY: CT Brain or Head without Contrast; 05/04/2017 5:16 am INDICATION: L sided weakness. Multiple falls. Patient found on floor last night. Numbness and tingling. COMPARISON: Brain CT 09/24/2013 ACCESSION NUMBER(S): [id number] ORDERING CLINICIAN: Grant Henderson TECHNIQUE: Axial noncontrast [...] by: Delon Aldrich 05/04/2017 5:25 AM Normal [facility] C-Reactive Proteinon 017 CRP mass conc 0.412 mg/L Normal 0.1-3.0 [facility] Comment on above: Order Comment: Add o n to today's blood, if available? Y Performed By: #### C BC, BMP, PHOS, MG, CK, UR, LDLP, URINC ####[facility] [place] [address] Complete Blood Count w/diff $$on 05-04-2017 Basophils Auto #/vol (Bld) 0.1 10 /uL Normal 0.04-0.9 [facility] Comment on above: Performed By: #### C BC, BMP, PHOS, MG, CK, UR, LDLP, URINC ####[address] [address] Basophils/100 WBC Auto (Bld) 1 % Normal 0-1 [facility] Comment on above: Performed By: #### C BC, BMP, PHOS, MG, CK, UR, LDLP, URINC ####[address] [address] Eosinophils Auto #/vol (Bld) 0.2 10 3/uL Normal 0.03-0.6 [facility] Comment on above: Performed By: #### C BC, BMP, PHOS, MG, CK, UR, LDLP, URINC ####[address] [address] Eosinophils/100 WBC Auto (Bld) 2 % Normal 0-3 [facility] Comment on above: Performed By: #### C BC, BMP, PHOS, MG, CK, UR, LDLP, URINC ####[address] [address] Erythrocyte distribution width Auto Ratio (RBC) 13.3 % Normal 11.5-14.5 [facility] Comment on above: Performed By: #### C BC, BMP, PHOS, MG, CK, UR, LDLP, URINC ####[address] [address] Hematocrit Auto Volume Fraction (Bld) 30.4 % Low 35-47 [facility] Comment on above: Performed By: #### C BC, BMP, PHOS, MG, CK, UR, LDLP, URINC ####[address] [address] Hemoglobin mass conc (Bld) 10.1 g/dL Low 12.0-16.0 [facility] Comment on above: Performed By: #### C BC, BMP, PHOS, MG, CK, UR, LDLP, URINC ####[address] [address] Immature Gran# (Auto) 0.0 10 3/uL Normal Pa [facility] Comment on above: Performed By: #### C BC, BMP, PHOS, MG, CK, UR, LDLP, URINC ####[address] [address] Immature granulocytes #/vol (Bld) 0.3 % Normal 0.0-0.9 [facility] Comment on above: Performed By: #### C BC, BMP, PHOS, MG, CK, UR, LDLP, URINC ####[address] [address] Lymphocytes Auto #/vol (Bld) 2.1 10 3/uL Normal 1-3.5 [facility] Comment on above: Performed By: #### C BC, BMP, PHOS, MG, CK, UR, LDLP, URINC ####[address] [address] Lymphocytes/100 WBC Auto (Bld) 19 % Low 24-44 [facility] Comment on above: Performed By: #### C BC, BMP, PHOS, MG, CK, UR, LDLP, URINC ####[address] [address] MCH Auto Entitic mass (RBC) 33.4 pg Normal 27-34 [facility] Comment on above: Performed By: #### C BC, BMP, PHOS, MG, CK, UR, LDLP, URINC ####[address] [address] MCH Auto Entitic mass (RBC) 33.2 g/dL Normal 33-37 [facility] Comment on above: Performed By: #### C BC, BMP, PHOS, MG, CK, UR, LDLP, URINC ####[address] [address] MCV Auto Entitic volume (RBC) 100.7 fL High 80-100 [facility] Comment on above: Performed By: #### C BC, BMP, PHOS, MG, CK, UR, LDLP, URINC ####[address] [address] Monocytes Auto #/vol (Bld) 0.7 10 3/uL Normal 0.04-0.9 [facility] Comment on above: Performed By: #### C BC, BMP, PHOS, MG, CK, UR, LDLP, URINC ####[address] [address] Monocytes/100 WBC Auto (Bld) 7 % Normal 1-8 [facility] Comment on above: Performed By: #### C BC, BMP, PHOS, MG, CK, UR, LDLP, URINC ####[address] [address] Neutrophils Auto #/vol (Bld) 7.7 10 3/uL High 1.8-7.0 [facility] Comment on above: Performed By: #### C BC, BMP, PHOS, MG, CK, UR, LDLP, URINC ####[address] [address] Neutrophils/100 WBC Auto (Bld) 71 % Normal 42-76 [facility] Comment on above: Performed By: #### C BC, BMP, PHOS, MG, CK, UR, LDLP, URINC ####[address] [address] Nucleated RBC/100 WBC Ratio (Bld) 0.0 % Normal 0.0-0.0 [facility] Comment on above: Performed By: #### C BC, BMP, PHOS, MG, CK, UR, LDLP, URINC ####[facility] [place] [address] Platelet mean volume Auto Entitic volume (Bld) 10.0 fL Normal 7.4-10.4 [facility] Comment on above: Performed By: #### C BC, BMP, PHOS, MG, CK, UR, LDLP, URINC ####[address] [address] Platelets Auto #/vol (Bld) 274 10 3/uL Normal 150-400 [facility] Comment on above: Performed By: #### C BC, BMP, PHOS, MG, CK, UR, LDLP, URINC ####[address] [address] RBC Auto #/vol (Bld) 3.02 10 6/uL Low 4.2-5.4 [facility] Comment on above: Performed By: #### C BC, BMP, PHOS, MG, CK, UR, LDLP, URINC ####[address] [address] WBC Auto #/vol (Bld) 10.8 10 3/uL Normal 4.0-11.0 [facility] Comment on above: Performed By: #### C BC, BMP, PHOS, MG, CK, UR, LDLP, URINC ####[address] [address] Creatine Kinase $on 05-04-20 17 Creatine Kinase $ 68 U/L Normal 26-192 [facility] Comment on above: Performed By: #### C BC, BMP, PHOS, MG, CK, UR, LDLP, URINC ####[facility] [place] [address] Creatine Kinase $ Normal 26-192 [facility] Comment on above: Order Comment: Added by laboratory to previous specimen.[id number] Performed By: #### C K ####[facility] [place] [address] Creatinine, Urine Random $on 05-04-2017 Creatinine, Urine Random $ 153.0 mg/dL Normal 20-300 [facility] Comment on above: Order Comment: ADD O N Performed By: #### C BC, BMP, PHOS, MG, CK, UR, LDLP, URINC ####[facility] [place] [address] ED Visit Summaryon ED Visit Summary [facility] Patient: CARLINE VILLARREAL [address] [facility] MR#: [id number] [place], [place] [address] : 1945 Ord. : Dept: Emergency Department Loc: 922-2 ER Physician Documentation Service Dt: 05/04/17 Report#: [id number] Adm Dt: 05/04/17 Dis Dt: Entered by Dominguez Ace, acting as scribe for Crew,Grant Nagel, DO 05/04/17 0408. Patient Information - Chief Complaint Initial Complaint: [...] (Auto) 71 Lymph % (Auto) 19 L [place] % (Auto) 7 Eos % (Auto) 2 Baso % (Auto) 1 Nucleat RBC Rel Count 0.0 Immature Gran # (Auto) 0.0 Neut # (Auto) 7.7 H Lymph # (Auto) 2.1 [place] # (Auto) 0.7 Eos # (Auto) 0.2 [...] Correctly Ask Pt to Open/Close Eyes then Marriage And Family Teacher/Release Non-paretic Hand: 0- Performs Both Tasks Correctly [...] to 30 Degrees: 2- Some Effort Against [place] Limb Ataxia-Finger/Nose Heel/Wallace Done on Both Sides: [...] discharge instructions. Grant Henderson, 05/04/17 0547 Normal [facility] Erythrocyte Sedimentation Ra brooklynn 05-04-2017 ESR Velocity (Bld) 23 mm/h Normal 0-30 [facility] Comment on above: Order Comment: Add o n to today's blood, if available? Y Performed By: #### C BC, BMP, PHOS, MG, CK, UR, LDLP, URINC ####[facility] [place] [address] Hemoglobin A1con 05-04-2017 Hemoglobin A1c/Hemoglobin.total mass fraction (Bld) 4.9 % Normal 4.4-6.3 [facility] Comment on above: Order Comment: Add o n to today's blood, if available? YADD ON Performed By: #### C BC, BMP, PHOS, MG, CK, UR, LDLP, URINC ####[facility] [place], [place] [address] History AND Physicalon 05-04 History AND Physical [facility] Patient: CARLINE VILLARREAL [address] [facility] MR#: [id number] [place], [place] [address] : 1945 Ord. Draper: Dept: PDOC Loc: 9 922-2 History Physical Service Dt: 05/04/17 Report#: [id number] Adm Dt: 05/04/17 Dis Dt: History and [...] 03:43) - Medications Home Medications: Aspirin [Aspirin, "Baby" (CHEWABLE)] 81 mg PO DAILY 09/24/13 [History [...] (Auto) Neut % (Auto) Lymph % (Auto) [place] % (Auto) Eos % (Auto) Baso % (Auto) Nucleat RBC Rel Count Immature Gran # (Auto) Neut # (Auto) Lymph # (Auto) [place] # (Auto) Eos # (Auto) Baso # (Auto) Sodium Potassium Chloride Carbon Dioxide Anion Gap BUN Creatinine Estim Creat Clear Calc Est GFR ( Amer) Est GFR (Non-Af Amer) Fasting Glucose Hemoglobin A1c 4.9 Calcium Phosphorus Magnesium Total Creatine Kinase Triglycerides Cholesterol LDL Cholesterol HDL Cholesterol Cholesterol/HDL Ratio Urine Color Yellow Urine Clarity Cloudy Urine pH 5.0 Ur Specific [place] 1.017 Urine Protein Negative Urine Glucose (UA) [...] (Auto) 71 Lymph % (Auto) 19 L [place] % (Auto) 7 Eos % (Auto) 2 Baso % (Auto) 1 Nucleat RBC Rel Count 0.0 Immature Gran # (Auto) 0.0 Neut # (Auto) 7.7 H Lymph # (Auto) 2.1 [place] # (Auto) 0.7 Eos # (Auto) 0.2 [...] Color Urine Clarity Urine pH Ur Specific [place] Urine Protein Urine Glucose (UA) Urine Ketones [...] Patient has considerable difficulty with left sided kzcepe-opjs-huiiet and heel to wallace testing. Patient has [...] Changes noted below: Date/Time Attending Physician Normal [facility] Lipid Profileon 05-04-2017 Cholesterol in HDL mass conc 48 mg/dL Normal 40-59 [facility] Comment on above: Performed By: #### C BC, BMP, PHOS, MG, CK, UR, LDLP, URINC ####[facility] [place] [address] Cholesterol in LDL mass conc 93 mg/dL Normal 0-130 [facility] Comment on above: Performed By: #### C BC, BMP, PHOS, MG, CK, UR, LDLP, URINC ####[facility] [place] [address] Cholesterol mass conc 172 mg/dL Normal 0-200 [facility] Comment on above: Performed By: #### C BC, BMP, PHOS, MG, CK, UR, LDLP, URINC ####[address] [address] Cholesterol.total/Yesi sterol in HDL mass ratio 3.58 {ratio} Normal 0-5.6 [facility] Comment on above: Result Comment: CHD Risk: Men WomenLowest <3.8 <2.9Low 3.9-4.7 3.0-3.6Average 4.8-5.9 3.7-4.6Moderate 6.0-6.9 4.7-5.6High >6.9 >5.6 Performed By: #### C BC, BMP, PHOS, MG, CK, UR, LDLP, URINC ####[address] [address] Triglycerides, Serum 156 mg/dL High 30-150 [facility] Comment on above: Performed By: #### C BC, BMP, PHOS, MG, CK, UR, LDLP, URINC ####[address] [address] Magnesium $$on 05-04-2017 Magnesium mass conc 2.2 mg/dL Normal 1.8-2.4 [facility] Comment on above: Performed By: #### C BC, BMP, PHOS, MG, CK, UR, LDLP, URINC ####[address] [address] Phosphoruson 05-04-2017 Phosphate mass conc 3.3 mg/dL Normal 2.5-4.9 [facility] Comment on above: Performed By: #### C BC, BMP, PHOS, MG, CK, UR, LDLP, URINC ####[address] [id number] Progress Noteson 05-04-2017 Protein mass conc [facility] Patient: CARLINE VILLARREAL [address] [facility] MR#: [id number] [place], [place] [address] : 1945 Ord. : Dept: PDOC Loc: 9 922-2 Physician Progress Note Service Dt: 05/04/17 Report#: [id number] Adm Dt: 05/04/17 Dis Dt: Note - Patient Note Observation: 05/04/17 18:07 Patient fully evaluated with resident team. Agree with resident history and physical. Exam pertinent for probable new onset CVA. Normal [facility] Sodium, Urine Randomon 05-04 Sodium, Urine Random 12 mmol/L Normal [facility] Comment on above: Order Comment: ADD O N Performed By: #### C BC, BMP, PHOS, MG, CK, UR, LDLP, URINC ####[address] [id number] Urinalysison 05-04-2017 Bacteria LM.HPF #/area (Urine sed) Moderate Abnormal 0 [facility] Comment on above: Performed By: #### C BC, BMP, PHOS, MG, CK, UR, LDLP, URINC ####[address] [address] Bilirubin, Urine Negative Normal Negative [facility] Comment on above: Performed By: #### C BC, BMP, PHOS, MG, CK, UR, LDLP, URINC ####[address] [id number] Budding Yeast, Urine Occasional Normal [facility] Comment on above: Performed By: #### C BC, BMP, PHOS, MG, CK, UR, LDLP, URINC ####[address] [address] Clarity Nom (U) Cloudy Normal [facility] Comment on above: Performed By: #### C BC, BMP, PHOS, MG, CK, UR, LDLP, URINC ####[address] [address] Color Nom (U) Yellow Normal [facility] Comment on above: Performed By: #### C BC, BMP, PHOS, MG, CK, UR, LDLP, URINC ####[address] [address] Epithelial Cells Rare Normal 0-5 [facility] Comment on above: Performed By: #### C BC, BMP, PHOS, MG, CK, UR, LDLP, URINC ####[address] [address] Glucose Ql (U) Negative Normal Negative [facility] Comment on above: Performed By: #### C BC, BMP, PHOS, MG, CK, UR, LDLP, URINC ####[address] [address] Hemoglobin Test strip Ql (U) 2+ Abnormal Negative [facility] Comment on above: Performed By: #### C BC, BMP, PHOS, MG, CK, UR, LDLP, URINC ####[address] [address] Ketones Ql (U) Negative Normal Negative [facility] Comment on above: Performed By: #### C BC, BMP, PHOS, MG, CK, UR, LDLP, URINC ####[address] [address] Leukocyte esterase Test strip Ql (U) 3+ Abnormal Negative [facility] Comment on above: Performed By: #### C BC, BMP, PHOS, MG, CK, UR, LDLP, URINC ####[address] [address] Mucus, Urine Rare Normal [facility] Comment on above: Performed By: #### C BC, BMP, PHOS, MG, CK, UR, LDLP, URINC ####[address] [address] Nitrates, Urine Positive Abnormal Negative [facility] Comment on above: Performed By: #### C BC, BMP, PHOS, MG, CK, UR, LDLP, URINC ####[address] [address] pH Test strip (U) 5.0 [pH] Normal 5.0-9.0 [facility] Comment on above: Performed By: #### C BC, BMP, PHOS, MG, CK, UR, LDLP, URINC ####[address] [address] Protein, Urine Negative Normal Negative [facility] Comment on above: Performed By: #### C BC, BMP, PHOS, MG, CK, UR, LDLP, URINC ####[address] [address] RBC LM.HPF #/area (Urine sed) 5-10 Abnormal 0-3 [facility] Comment on above: Performed By: #### C BC, BMP, PHOS, MG, CK, UR, LDLP, URINC ####[address] [address] Renal Epithelial Cells, Urine <1 Normal [facility] Comment on above: Performed By: #### C BC, BMP, PHOS, MG, CK, UR, LDLP, URINC ####[address] [address] Specific [place], Urine 1.017 Normal 1.000-1.030 [facility] Comment on above: Performed By: #### C BC, BMP, PHOS, MG, CK, UR, LDLP, URINC ####[address] [address] Urobilinogen, Urine Normal Normal <2.0 [facility] Comment on above: Performed By: #### C BC, BMP, PHOS, MG, CK, UR, LDLP, URINC ####[address] [id number] WBC LM.HPF #/area (Urine sed) 30-50 Abnormal 0-2 [facility] Comment on above: Performed By: #### C BC, BMP, PHOS, MG, CK, UR, LDLP, URINC ####[address] [address] Urine Cultureon 05-04-2017 Bacteria identified Cx Nom (U) ---- RUN DATE: 05/04/17 [facility] LAB LIVE PAGE 1 RUN TIME: 0456 Specimen Inquiry ---- PATIENT: CARLINE VILLARREAL ACCT: [id number] LOC: 1EDA U: [id number] AGE/SX: 71/F ROOM: RE05/04/[address]: Grant Henderson: 1945 BED: DIS: STATUS: REG ER TLOC: ---- SPEC #: [id number] ASHOK: 05/04/17 STATUS: CAN REQ #: [id number] RECD: 05/04/[address]: Grant Henderson DO SOURCE: URINE ENTR: 05/04/[address]: Grant [facility] Not ORDERED: Urine Culture ---- Procedure Result ---- CANCELLED DUPLICATE ---- END OF REPORT Normal [facility] Comment on above: Performed By: #### U RINC ####[facility] [facility] [place] [address] Bacteria identified Cx Nom (U) ---- RUN DATE: 05/06/17 [facility] LAB LIVE PAGE 1 RUN TIME: 946 Specimen Inquiry ---- PATIENT: CARLINE VILLARREAL ACCT: [id number] LOC: 9W U: [id number] AGE/SX: 71/F ROOM: [facility] RE05/04/[address]: Grant Colon MD : 1945 BED: 2 DIS: STATUS: ADM IN TLOC: ---- SPEC #: [id number] ASHOK: 05/04/17 STATUS: COMP REQ #: [id number] RECD: 05/04/[address]: Grant Henderson DO SOURCE: URINE ENTR: 05/04/[address]: SPDESC: CLEAN CATC ORDERED: Urine Culture ---- Procedure Result ---- > Urine Culture Final COMMENT PATIENT: CARLINE VILLARREAL [place] [facility] [id number] : [birth year] AGE: SEX: F ORDERED BY: [...] DEPENDENT NS=NONSUSCEPTIBLE X=REPORTED IN ERROR Performing [facility] [address] [place] [address] ---- END OF REPORT Normal [facility] Comment on above: Performed By: #### C BC, BMP, PHOS, MG, CK, UR, LDLP, URINC ####[facility] [place] [address] Vital Signs Date Time Vital Sign Value Performing Clinician Facility 12-04-2024 13:59-0400 Body height 165.1 cm Miranda Magaña APRN - AUTOMOBILE RENTAL REPRESENTATIVE Work Phone: [facility] 12-04-2024 13:59-0400 Diastolic blood pressure 76 mm[Hg] Miranda Magaña APRN - AUTOMOBILE RENTAL REPRESENTATIVE Work Phone: [facility] 12-04-2024 13:59-0400 Heart rate 78 /min Miranda Magaña APRN - AUTOMOBILE RENTAL REPRESENTATIVE Work Phone: [facility] 12-04-2024 13:59-0400 Systolic blood pressure 128 mm[Hg] Miranda Magaña APRN - AUTOMOBILE RENTAL REPRESENTATIVE Work Phone: [facility] 11-21-2024 17:09-0400 Diastolic blood pressure 68 mm[Hg] Avi Peralta MD Work Phone: [facility] 11-21-2024 17:09-0400 Heart rate 86 /min Avi Peralta MD Work Phone: [facility] 11-21-2024 17:09-0400 SaO2% (BldA) [Mass fraction] 99 % Avi Peralta MD Work Phone: [facility] 11-21-2024 17:09-0400 Systolic blood pressure 119 mm[Hg] Avi Peralta MD Work Phone: [facility] 11-21-2024 15:11-0400 Body temperature 97.7 [degF] Avi Peralta MD Work Phone: [facility] 11-21-2024 07:44-0400 Respiratory rate 18 /min Avi Peralta MD Work Phone: [facility] 11-14-2024 13:00-0400 Body height 165.1 cm Avi Peralta MD Work Phone: [facility] 11-14-2024 13:00-0400 Body mass index (BMI) [Ratio] 34.95 kg/m2 Avi Peralta MD Work Phone: [facility] 11-14-2024 13:00-0400 Body weight 95.25 kg Avi Peralta MD Work Phone: [facility] 08-18-2024 13:25-0500 Diastolic blood pressure 77 mm[Hg] Angelina Trujillo PA-C Work Phone: [facility] 08-18-2024 13:25-0500 Heart rate 58 /min Angelina Trujillo PA-C Work Phone: [facility] 08-18-2024 13:25-0500 Systolic blood pressure 145 mm[Hg] Angelina Trujillo PA-C Work Phone: [facility] 12-17-2023 07:48-0400 Body temperature 99.3 [degF] Cameron Valencia DO Work Phone: [facility] 12-17-2023 07:48-0400 Diastolic blood pressure 74 mm[Hg] Cameron Valencia DO Work Phone: [facility] 12-17-2023 07:48-0400 Heart rate 68 /min Cameron Valencia DO Work Phone: [facility] 12-17-2023 07:48-0400 SaO2% (BldA) [Mass fraction] 97 % Cameron Valencia DO Work Phone: [facility] 12-17-2023 07:48-0400 Systolic blood pressure 146 mm[Hg] Cameron Valencia DO Work Phone: [facility] 12-17-2023 03:54-0400 Respiratory rate 18 /min Cameron Valencia DO Work Phone: [facility] 12-16-2023 18:14-0400 Body height 167.6 cm Cameron Valencia DO Work Phone: [facility] 12-16-2023 18:14-0400 Body mass index (BMI) [Ratio] 33.09 kg/m2 Cameron Valencia DO Work Phone: [facility] 12-16-2023 18:14-0400 Body weight 93.2 kg Cameron Valencia DO Work Phone: [facility] 10-30-2020 11:32-0400 Body height 149.86 cm Jazmín Root MD, MP-Neurology-P arma Work Phone: 10-30-2020 11:32-0400 Body mass index (BMI) [Ratio] 46.25 kg/m2 Jazmín Root MD AP-Zdbnoenym-Lishs Work Phone: 10-30-2020 11:32-0400 Body surface area Derived from formula 1.95 m2 Jazmín Root MD, MP-Neurology-[place] 204 Work Phone: 10-30-2020 11:32-0400 Body temperature 97.7 [degF] Jazmín Root MD, MP-Neurology- [place] 204 Work Phone: Comment on above: Method: Temporal 10-30-2020 11:32-0400 Body weight 103.87 kg Jazmín Root MD UO-[place]-P arma 204 Work Phone: 10-30-2020 11:32-0400 Diastolic blood pressure 66 mm[Hg] Jazmín Root MD IC-Kwzlpdpoc-Ockzp 204 Work Phone: Comment on above: Location: RUE; Position: Sitting 10-30-2020 11:32-0400 Heart rate 64 /min Jazmín Root MD, MP-Neurology-P arma 204 Work Phone: 10-30-2020 11:32-0400 SaO2% (BldA) [Mass fraction] 95 % Jazmín Root MD HM-Prcuqhaci-Pwqjp 204 Work Phone: 10-30-2020 11:32-0400 Systolic blood pressure 133 mm[Hg] Jazmín Root MD BP-Egozzjpeo-Uioyp 204 Work Phone: Comment on above: Location: RUE; Position: Sitting Encounters Encounter Date Encounter Type Care Provider Facility Start: 04-24-2025 End: 04-24-2025 ambulatory Evi HACKETT Facility:[facility] Start: 03-29-2025 Registered Referred Evi Guevara [place] [employer] Start: 03-29-2025 End: 03-29-2025 ambulatory Evi HACKETT Facility:[facility] Start: 03-01-2025 End: 03-01-2025 ambulatory Evi HACKETT [facility] [employer] Start: 03-01-2025 End: 03-01-2025 Departed Referred Evi BURNHAM Start: 03-01-2025 End: 03-01-2025 ambulatory Evi HACKETT Facility:[facility] Start: 02-22-2025 Registered Referred [facility]uevar[facility] [place] [employer] [facility] Start: 02-22-2025 End: 02-22-2025 ambulatory Evi HACKETT Facility:[facility] Start: 02-08-2025 End: 02-08-2025 ambulatory EVI GUEVARA Facility:[facility] Start: 02-06-2025 ambulatory Evi HACKETT Faci lity:[facility] Start: 02-06-2025 Registered Referred [facility] [employer] Start: 12-18-2024 ambulatory Evi HACKETT Faci lity:[facility] Start: 12-12-2024 End: 12-14-2024 Telephone encounter Angelina Trujillo PA-C Work Phone: [address] [place] [address] Comment on above: Patient Update Start: 12-04-2024 End: 12-04-2024 Office outpatient visit 25 minutes Miranda Magaña APRN - AUTOMOBILE RENTAL REPRESENTATIVE Work Phone: [facility] Cardiology - [place] Comment on above: Chronic systolic hea rt failure (HCC) (Primary Dx); Primary hypertension; Paroxysmal atrial fibrillation (HCC); Elevated troponin; Stage 3a chronic kidney disease (HCC); Hospital discharge follow-up Start: 12-04-2024 End: 12-04-2024 ambulatory [employer] [facility] Start: 11-29-2024 ambulatory Evi Singhi lity:[facility] Start: 11-13-2024 End: 11-21-2024 Evaluation and management of inpatient Avi Peralta MD Work Phone: [facility] Medical Surgical Unit MSU 4S Start: 09-25-2024 End: 09-25-2024 ambulatory Evi HACKETT [facility] Work Phone: Start: 09-25-2024 End: 09-25-2024 Departed Referred Evi BURNHAM Start: 09-25-2024 End: 09-25-2024 ambulatory Evi HACKETT Facility:[facility] Start: 08-30-2024 End: 08-30-2024 ambulatory Evi HACKETT [facility] Work Phone: Start: 08-30-2024 End: 08-30-2024 Departed Referred [facility]i [facility] [employer] Start: 08-30-2024 Registered Referred Evi Guevara - [facility] [employer] Start: 08-30-2024 End: 08-30-2024 ambulatory Evi HACKETT Facility:[facility] Start: 08-27-2024 End: 08-27-2024 Departed Referred [facility] [employer] Start: 08-27-2024 Registered Referred [facility] [employer] Start: 08-27-2024 End: 08-27-2024 ambulatory Evi HACKETT [facility] Work Phone: Start: 08-21-2024 End: 08-21-2024 ambulatory Evi HACKETT [facility] Work Phone: Start: 08-21-2024 End: 08-21-2024 Departed Referred Evi Guevara -[facility] [employer] Start: 08-21-2024 End: 08-21-2024 ambulatory Evi HACKETT Facility:[facility] Start: 08-18-2024 End: 08-18-2024 ambulatory ANGELINA TRUJILLO Facility:[facility] Start: 08-18-2024 End: 08-18-2024 Patient encounter procedure Angelina Trujillo PA-C Work Phone: Neurology Comment on above: Intractable migraine without aura and without status migrainosus (Primary Dx); Worsening headaches; Weakness Start: 07-31-2024 End: 07-31-2024 ambulatory Evi HACKETT [facility] Work Phone: Start: 07-31-2024 End: 07-31-2024 Departed Referred Evi [facility]uevara -[facility] [employer] Start: 07-31-2024 Registered Referred Evi Guevara - [facility] [employer] Start: 07-31-2024 End: 07-31-2024 ambulatory Evi HACKETT Facility:[facility] Start: 07-13-2024 End: 07-13-2024 Departed Referred Evi Guevara -[facility] [employer] Start: 07-13-2024 End: 07-13-2024 ambulatory Evi HACKETT Facility:[facility] Start: 06-12-2024 ambulatory Evi Menon lity:[facility] Start: 06-12-2024 [facility] [employer] [employer] Start: 12-16-2023 End: 12-17-2023 Evaluation and management of inpatient Cameron Valencia DO Work Phone: [facility] Cardiac Progressive Care Unit PCU 2E Comment on above: Left-sided weakness (Primary Dx); TIA (transient ischemic attack) Start: 09-23-2023 End: 09-23-2023 ambulatory [facility] Work Phone: Start: 09-23-2023 End: 09-23-2023 [facility] Start: 09-23-2023 [facility] [employer] [facility] Start: 09-13-2023 End: 09-13-2023 ambulatory [facility] Work Phone: Start: 09-13-2023 End: 09-13-2023 [facility] [employer] [facility] Start: 09-10-2023 End: 09-10-2023 ambulatory [facility] Work Phone: Start: 09-10-2023 End: 09-10-2023 [facility] Start: 09-10-2023 [facility] Start: 08-13-2023 End: 08-13-2023 [facility] [employer] [facility] Start: 08-13-2023 [facility] [employer] [facility] Start: 08-02-2023 End: 08-02-2023 ambulatory [facility] Work Phone: Start: 08-02-2023 End: 08-02-2023 [facility] [employer] [facility] Start: 07-13-2023 End: 07-13-2023 [facility] Start: 06-29-2023 End: 06-29-2023 ambulatory [facility] Work Phone: Start: 06-29-2023 End: 06-29-2023 Departed Referred [facility] [employer] Start: 06-21-2023 End: 06-21-2023 ambulatory [facility] Work Phone: Start: 06-21-2023 End: 06-21-2023 Departed Referred [facility] [employer] Start: 06-21-2023 Registered Referred [facility] [employer] [facility] Start: 06-02-2023 End: 06-02-2023 ambulatory [facility] Work Phone: Start: 06-02-2023 End: 06-02-2023 [facility] Start: 05-20-2023 End: 05-20-2023 [facility] Start: 05-20-2023 Registered Referred [facility] [employer] Start: 05-13-2023 End: 05-13-2023 ambulatory [facility] Work Phone: Start: 05-13-2023 End: 05-13-2023 Departed Referred [facility] [employer] Start: 04-22-2023 End: 04-22-2023 [facility] Start: 04-22-2023 Registered Referred [facility] [employer] [facility] Start: 04-21-2023 End: 04-21-2023 ambulatory [facility] Work Phone: Start: 04-21-2023 End: 04-21-2023 [facility] Start: 04-12-2023 End: 04-12-2023 ambulatory [facility] Work Phone: Start: 04-12-2023 End: 04-12-2023 Departed Referred [place] [facility] Start: 04-12-2023 Registered Referred [facility] Start: 03-25-2023 Registered Referred [facility] Start: 03-25-2023 End: 03-25-2023 ambulatory [facility] Work Phone: Start: 03-25-2023 End: 03-25-2023 Departed Referred [facility] Start: 03-23-2023 End: 03-23-2023 Departed Referred [facility] Start: 03-23-2023 Registered Referred [facility] Start: 03-15-2023 End: 03-15-2023 ambulatory [facility] Work Phone: Start: 03-15-2023 End: 03-15-2023 Departed Referred [facility] Start: 03-09-[address] Grant Myrickat Facility:[id number] Start: 02-19-[address] Grant granados Mandat Facility:[id number] Start: 02-05-[address] Grant Myrickat Facility:9531 Start: 01-06-[address] Grant Colon Facility:9531 Start: 12-07-[address] Grant Myrickat Facility:9531 Start: 11-06-[address] Grant Colon Facility:9531 Start: 10-07-[address] Grant Myrickat Facility:9531 Start: 09-28-[address] Grant Myrickat Facility:9531 Start: 09-21-[address] Grant Myrickat Facility:9531 Start: 09-07-[address] Grant Myrickat Facility:9531 Start: 08-27-[address] Grant Myrickat Facility:9531 Start: 08-08-[address] Grant Colon Facility:9531 Start: 07-16-[address] Grant Myrickat Facility:9531 Start: 07-09-[address] Coleman Anna Myrickat Facility:9531 Start: 06-09-[address] Coleman Anna Myrickat Facility:9531 Start: 05-27-[address] Coleman Anna Myrickat Facility:9531 Start: 10-30-2020 Patient encounter procedure Jazmín Root MD QC-Ioijeswpo-Naaqd 204 Work Phone: Start: 03-07-2019 Patient encounter procedure Jazmín Root MD IM-Qiwpoyggh-Cghfn 204 Work Phone: Start: 03-08-2018 Patient encounter Grant Menon lity:[facility] Start: 10-10-2017 End: 10-10-2017 Emergency department patient visit UNKNOWN PROVIDER Facility:[facility] Start: 08-21-2017 End: 08-21-2017 Patient encounter Grant Colon Facility:[facility] Start: 08-06-2017 End: 08-06-2017 Evaluation and management of inpatient Grant Colon Facility:[facility] Start: 06-24-2017 End: 06-24-2017 Emergency department patient visit Iban Lauren Facility:[facility] Start: 05-31-2017 Patient encounter Grant Menon lity:[facility] Start: 05-08-2017 End: 05-08-2017 Emergency department patient visit Alfonso Granados Berry Facility:[facility] Start: 05-04-2017 End: 05-07-2017 Evaluation and management of inpatient Efraín Negrete Facility:[facility] Procedures Date Procedure Procedure Detail Performing Clinician Start: 04-24-2025 Urnls dip stick/tabl et reagent auto microscopy Evi Guevara OLS Start: 02-22-2025 Urnls dip stick/tabl et reagent auto microscopy Evi Guevara OLS Start: 02-22-2025 Urine culture Evi pollock OLS Start: 02-06-2025 Urine culture Evi pollock OLS Start: 02-06-2025 Urnls dip stick/tabl et reagent auto microscopy Evi Guevara OLS Start: 12-04-2024 Ecg routine ecg w/le ast [...] Basic metabolic pane l calcium total Gordo Mirlande DEGROOT Work Phone: Start: 11-17-2024 Glucose quantitative blood xcpt reagent strip Ni Sam MD Work Phone: Start: 11-17-2024 Glucose quantitative blood xcpt reagent strip Ni Sam MD Work Phone: Start: 11-17-2024 Bacteria identified in Blood by Culture Ni aSm MD Work Phone: Start: 11-17-2024 Radiologic exam [...] [Units/v olume] in Serum or Plasma Miranda Magaña TAX REPRESENTATIVE - [facility] Work Phone: Start: 11-14-2024 Glucose quantitative [...] Bacteria identified in Blood by Culture Loly IRENE-Meg Work Phone: Start: 11-13-2024 Procalcitonin (pct) Jim Franz MD Work Phone: Start: 11-13-2024 Radiologic exam ches t single view Loly IRENE-C Work Phone: Start: 11-13-2024 Ecg routine ecg w/le ast 12 lds trcg only w/o i&r Loly IRENE-C Work Phone: Start: 11-13-2024 HC SARSCOV2&INF A&B& RSV AMP PRB Loly WHITTINGTONC Work Phone: Start: 11-13-2024 Blood gases any comb ination ph pco2 po2 co2 hco3 Avi Peralta MD Work Phone: Start: 11-13-2024 Comprehensive metabo lic panel Avi Peralta MD Work Phone: Start: 08-30-2024 Urine culture [...] Start: 12-16-2023 Assay of troponin quantitative Cameron Valencia DO Work Phone: Start: 12-16-2023 POCT GLUCOSE [...] Author Start: 12-16-2028 Lipid panel Lipid Panel [facility] Start: 11-22-2027 Diabetes Screening Diabetes Screenin [facility] Start: 12-16-2026 Diabetes Screening Diabetes Screenin g [facility] Start: 11-21-2025 Creatinine measurement [facility] Start: 11-21-2025 Potassium measurement [facility] Start: 11-15-2025 Thyroid stimulating hormone measurement [facility] Start: 11-14-2025 Echocardiography Echocardiogram [facility] Start: 11-14-2025 [facility] Start: 04-24-2025 Registered Referred Registered Refer [facility] Start: 04-24-2025 Urine culture Urine Culture [facility] Start: 03-05-2025 Influenza vaccination Influenz a Vaccine (Season Ended) [facility] Start: 03-05-2025 [facility] Start: 02-16-2025 End: 02-16-2025 Patient encounter procedure 02/16/2025 3:00 PM EDT Office Visit Neurology [address] [id number] Angelina Trujillo PA-C [address] [facility] [place] [address] Chronic Headaches follow up Neurology Comment on above: Chronic Headaches fo llow up Start: 12-04-2024 End: 12-04-[address] [facility] Cardiology - [place] Start: 08-18-2024 End: 11-17-2024 C reactive protein [Mass/volume] in Serum or Plasma C-REACTIVE PROTEIN Lab Routine Worsening headaches Expected: 08/18/2024, Expires: 11/17/2024 [facility] Comment on above: Expected: 08/18/2024 , Expires: 11/17/2024 Start: 08-18-2024 End: 11-17-2024 CBC panel - Blood by Automated count COMPLETE BLOOD COUNT Lab Routine Worsening headaches Expected: 08/18/2024, Expires: 11/17/2024 [facility] Comment on above: Expected: 08/18/2024 , Expires: 11/17/2024 Start: 08-18-2024 End: 11-17-2024 Cobalamin (Vitamin B12) [Mass/volume] in Serum or Plasma VITAMIN B12 Lab Routine Worsening headaches Expected: 08/18/2024, Expires: 11/17/2024 [facility] Comment on above: Expected: 08/18/2024 , Expires: 11/17/2024 Start: 08-18-2024 End: 11-17-2024 Comprehensive metabolic 2000 panel - Serum or Plasma COMPREHENSIVE METABOLIC PANEL Lab Routine Worsening headaches Expected: 08/18/2024, Expires: 11/17/2024 [facility] Comment on above: Expected: 08/18/2024 , Expires: 11/17/2024 Start: 08-18-2024 End: 11-17-2024 Erythrocyte sedimentation rate SEDIMENTATION RATE, WESTERGREN Lab Routine Worsening headaches Expected: 08/18/2024, Expires: 11/17/2024 [facility] Comment on above: Expected: 08/18/2024 , Expires: 11/17/2024 Start: 08-18-2024 End: 11-17-2024 Thyrotropin [Units/volume] in Serum or Plasma THYROID STIMULATING HORMONE Lab Routine Worsening headaches Weakness Expected: 08/18/2024, Expires: 11/17/2024 [facility] Comment on above: Expected: 08/18/2024 , Expires: 11/17/2024 Start: 07-05-2024 Advance Directive Discussion Advance Directive Discussion [facility] Start: 03-05-2024 Covid-19 Vaccine ( season) Covid-19 Vaccine () [facility] Start: 03-05-2024 COVID-19 Vaccine () COVID-19 Vaccine () [facility] Start: 03-05-2024 Influenza vaccination [facility] Start: 03-05-2024 [facility] Start: 03-05-2023 COVID-19 Vaccine ( season) COVID-19 Vaccine ( season) [facility] Start: 2020 RSV Immunization for Adults (1 - 1-dose 75+ series) RSV Immunization for Adults (1 - 1-dose 75+ series) [facility] Start: 2020 RSV Vaccine (1 - 1-d ose 75+ series) RSV Vaccine (1 - 1-dose 75+ series) [facility] Start: 2020 [facility] Start: 11-19-2020 Mra head w/o contrst material MRA Head without Contrast PO-Tgaviepdw-Efmvk 204 Work Phone: Start: 11-19-2020 Mri brain brain stem w/o contrast material MRI Brain without Contrast AO-Ebnektaig-Mtljr 204 Work Phone: Start: 10-30-2020 Mra head w/o contrst material MRA Head without Contrast HC-Ztvwbqaui-Nlwdo 204 Work Phone: Start: 10-30-2020 Mri brain brain stem w/o contrast material MRI Brain without Contrast OM-Tejgkyzdz-Jndmj 204 Work Phone: Start: 10-30-2020 Sedimentation rate r bc automated Sedimentation Rate, Erythrocyte NA-Icteuupwf-Limxe 204 Work Phone: Start: 09-25-2019 Urine microalbumin profile DTaP,Tdap,Td Vaccine (2 - Td or Tdap) [facility] Start: 10-08-2017 Pneumococcal Vaccine : 50+ Years (2 of 2 - PPSV23) Pneumococcal Vaccine: 50+ Years (2 of 2 - PPSV23) [facility] Start: 10-08-2017 Pneumococcal Vaccine : 65+ Years (2 of 2 - PPSV23 or PCV20) Pneumococcal Vaccine: 65+ Years (2 of 2 - PPSV23 or PCV20) [facility] Start: 10-08-2017 [facility] Start: 2010 Screening for osteoporosis Bone Density Screening [facility] Start: 12-03-2010 Medicare Annual Well ness Visit Medicare Annual Wellness Visit [facility] Start: 05-05-2008 Pneumococcal Vaccine : 50+ (2 of 2 - PCV) Pneumococcal Vaccine: 50+ (2 of 2 - PCV) [facility] Start: 2005 RSV Immunization age d 60 or older (1 - 1-dose 60+ series) RSV Immunization aged 60 or older (1 - 1-dose 60+ series) [facility] Start: 12-21-1995 Shingrix Vaccine (1 of 2) Wallace grix Vaccine (1 of 2) [facility] Start: 12-21-1995 Zoster Vaccines (1 of 2) Zoste r Vaccines (1 of 2) [facility] Start: 12-21-1995 [facility] Start: 1964 DTaP/Tdap/Td Vaccine s (1 - Tdap) DTaP/Tdap/Td Vaccines (1 - Tdap) [facility] Start: 1964 [facility] Start: 12-21-1963 Annual PCP Team Hot Roll Laminator florentin Disease Visit Annual PCP Team Chronic Disease Visit [facility] Start: 12-21-1963 Anxiety Screening Anxiety Screening [facility] Start: 12-21-1963 BP Controlled (<130/80) BP Con trolled (<130/80) [facility] Start: 12-21-1963 Depression Screening Depression Scre ening [facility] Start: 12-21-1963 [facility]atitis C screening [facility] Start: 1957 Depression Monitoring Depression Mon itoring [facility] Start: 1957 Depression Screening Depression Scre ening [facility] Start: 1957 [facility] Start: 1945 Medicare Annual Well ness (AWV) Medicare Annual Wellness (AWV) [facility] Start: 1945 Screening for osteoporosis [facility] Start: 1945 Thyroid stimulating hormone measurement TSH Level [facility] Start: 1945 [facility] Bacteria identified in Blood by Culture [facility] [employer] Work Phone: ECG 12 lead - CLINIC PERFORMED ECG 12 lead - CLINIC PERFORMED CV ECG Routine Paroxysmal atrial fibrillation (HCC) 12/04/2024 2:08 PM EDT [facility] [employer] Work Phone: End: 09-17-2025 MR Brain WO contrast MRI BRAIN WO IVCON Radiology Routine Worsening headaches 1 Occurrences starting 08/18/2024 until 09/17/2025 [facility] Work Phone: Comment on above: 1 Occurrences starti ng 08/18/2024 until 09/17/2025 EV-Otdhulyyk-Zg rma 204 Work Phone: NEGATED: Highlighted row has been ruled out! Planned Goals not documented FD-Jnsbkqgwk-Uvkpv 204 Work Phone: Immunizations Immunization Date Immunization Notes Care Provider Dinah negro 04-08-2022 influenza virus vacc ine, unspecified formulation Miranda Magaña APRN - AUTOMOBILE RENTAL REPRESENTATIVE Work Phone: [facility] [employer] 02-23-2016 influenza virus vacc ine, unspecified formulation Angelina Trujillo PA-C Work Phone: [facility] Payers Date Payer Category Payer Private Health Insurance [id number] 2024 Self-pay 2023 Medicaid [id number] 2023 Medicaid HMO [id number] 2023 Private Health Insurance [id number] 2010 Medicare [id number] 2010 Medicare [id number] 1945 Unknown [id number] 2.16.8 40.1.725827.3.579.2.6 194 Unknown [id number] 2.16.8 40.1.564099.3.579.2.1045194 Unknown [id number] 2.16.8 40.1.085521.3.579.2.1045194 Unknown [id number] 2.16.8 40.1.958012.3.579.2.1045194 Unknown [id number] 2.16.8 40.1.742181.3.579.2.1045194 Unknown [id number] 2.16.8 40.1.254337.3.579.2.1045194 Unknown [id number] 2.16.8 40.1.744219.3.579.2.6 1946 Unknown [id number] 2.16.8 40.1.629546.3.579.2.10451946 Unknown [id number] 2.16.8 40.1.633858.3.579.2.1045194 Unknown [id number] 2.16.8 40.1.652942.3.579.2.1045194 Unknown [id number] 2.16.8 40.1.772508.3.579.2.1045194 Unknown [id number] 2.16.8 40.1.860351.3.579.2.1045194 Unknown [id number] 2.16.8 40.1.086482.3.579.2.1046 1945 Unknown [id number] 2.16.8 40.1.204649.3.579.2.1046 1945 Unknown [id number] 2.16.8 40.1.664659.3.579.2.1046 1945 Unknown [id number] 2.16.8 40.1.514338.3.579.2.1046 Medicare [id number] Medicare [id number] Unknown [id number] Unknown [id number] 2.16.8 40.1.677882.3.579.2.462 Unknown [id number] 2.16.8 40.1.660653.3.579.2.462 Unknown [id number] 2.16.8 40.1.290297.3.579.2.462 Unknown [id number] 2.16.8 40.1.393486.3.579.2.462 Unknown [id number] 2.16.8 40.1.513087.3.579.2.462 Unknown [id number] 2.16.8 40.1.235719.3.579.2.462 Unknown [id number] 2.16.8 40.1.192258.3.579.2.462 Unknown [id number] 2.16.8 40.1.378426.3.579.2.462 Unknown [id number] 2.16.8 40.1.194155.3.579.2.462 Unknown [id number] 2.16.8 40.1.873472.3.579.2.462 Unknown [id number] 2.16.8 40.1.268943.3.579.2.462 Unknown [id number] 2.16.8 40.1.348176.3.579.2.462 Unknown [id number] 2.16.8 40.1.405261.3.579.2.462 Unknown [id number] 2.16.8 40.1.158007.3.579.2.462 Social History Date Type Detail Facility Assertion Tobacco smoking consumption unknown (finding) [facility] 204 Work Phone: Start: 1945 Sex Assigned At Female [facility] Start: 12-16-2023 Tobacco smoking stat [facility] Occasional tobacco smoker [facility] History of tobacco use Cigarette Smoker [facility] Start: 12-16-2023 End: 11-18-2024 Alcohol intake Ex-drinker (finding) [facility] Start: 12-16-2023 End: 08-18-2024 History of Social function [facility] Start: 12-16-2023 End: 08-18-2024 [facility] EDITD [facility] Has the [employer], [employer], [employer], or water [employer] threatened to shut off services in your home in past 12Mo Patient unable to answer [facility] Start: 1945 Sex Assigned At Not on file [facility] Start: 11-22-2013 Tobacco smoking stat [facility] Never smoked tobacco [facility] Start: 11-22-2013 Tobacco use and exposure Smokeless tobacco non-user [facility] Start: 08-18-2024 Alcoholic beverage intake Not Asked [facility] Work Phone: Start: 12-16-2023 End: 09-08-2024 Sex Female (finding) [facility] Functional Status Date Assessment Result Facility NEGATED: Highlighted row Functional performance Functional status health issues are not documented [facility] [place] [address] Work Phone: Mental Status Date Assessment Result Facility NEGATED: Highlighted row Cognitive function [Interpretation] Cognitive status health issues are not documented Disease [place] [address] Work Phone: Clinical Notes 12-16-2023 to 02-08-2025 Telephone Encounter - Melonie Isaac OCCA - 12/14/2024 3:36 PM EDTTelephone Encounter - Melonie Isaac OCCA - 12/14/2024 3:36 PM EDTTelephone Encounter - Safia Frankel - 12/12/2024 2:16 PM EDT Note Date & Type Note Facility 02-08-2025 Note HNO ID: [id number] Author: ANGELINA TRUJILLO PA-C Service: ? Author Type: Physician Combine Mechanic Type: Progress Notes Filed: 02/08/2025 14:41 Note Text: [facility] Follow up CC: Headache [...] of worsening headaches. Patient lives at a half-way. Family notes that she has some baseline [...] for HDEZ on 08/18/24, lives in a half-way. Hx limited. Daily headaches with migraine features. [...] very limited. Patient does visit with a tile finisher from the facility but not with any family. Memory is significantly limiting history. Does report that the Nurtec is very helpful when she takes it, does not believe she is running out every month. [employer] Border Officer does believe that she has a least [...] joint present, bilateral (more content not included)... [facility] 12-14-2024 Telephone encounter Note TC to patients care facility who verbalized understanding of providers message and will contact prescribing office. LAUREL Abraham [facility] 12-14-2024 Miscellaneous Notes TC to patients care facility who verbalized understanding of providers message and will contact prescribing office. LAUREL Abraham Updated care everywhere, able to pull in hospitalization records. Is neurology able to review and advise the nursing staff questions? Would you like more records from [place] first? Called [facility]. Nurse states patient was in the hospital recently and the patient was taken off Cymbalta and the gabapentin was decreased back to 300 mg twice a day. They increased her hydralazine and added blood pressure medications. Nursing is asking if there can be better alternatives to preventing the migraines instead of treating them with Nurtec due to cost. Advised nursing at the [facility] we will have to get her records from the hospital and ask neurology to review. [facility] called in stating Prior to Glor[place] previous hospitalization she was on plavix. When she returned she was not on it any more. Wanting Queener to review and advise to see if she should still be taking it. Also asking if there is an alternative Neurotec as it is costly. Please call [phone] please ask for 200 jean-claude Nurse documented in this encounter [facility] 12-13-2024 Telephone encounter Note Updated care everywhere, able to pull in hospitalization records. Is neurology able to review and advise the nursing staff questions? Would you like more records from [place] first? [facility] 12-13-2024 Telephone encounter Note Called [facility]. Nurse states patient was in the hospital recently and the patient was taken off Cymbalta and the gabapentin was decreased back to 300 mg twice a day. They increased her hydralazine and added blood pressure medications. Nursing is asking if there can be better alternatives to preventing the migraines instead of treating them with Nurtec due to cost. Advised nursing at the [facility] we will have to get her records from the hospital and ask neurology to review. [facility] 12-12-2024 Telephone encounter Note [facility] called in stating Prior to [place] previous hospitalization she was on plavix. When she returned she was not on it any more. Wanting Queener to review and advise to see if she should still be taking it. Also asking if there is an alternative Neurotec as it is costly. Please call [phone] please ask for 200 jean-claude Nurse [facility] 12-04-2024 History of Present illness Narrative Images from the original note were not included. [facility] - [address] [place] [id number] Dept: [phone] Dept Visit type: Established : 1945 Reason [...] Assessment & Plan: Elevated high-sensitivity troponin of 12-1 24. Echocardiogram [...] versus Takotsubo cardiomyopathy) She was admitted to [facility] November 2024 with shortness of breath. proBNP elevated at 6596. High-sensitivity troponin 12-1 24. She was seen by Dr. Hinton [...] Cuff Size: Adult Pulse: 78 Height: 5' 5" (1.651 m) Physical Exam Vitals reviewed. Constitutional: [...] file. documented in this encounter [facility] 12-04-2024 Evaluation + Plan note Associated Problem(s): Stage 3a chronic kidney disease (HCC) Baseline creatinine 1.2-1.4. Peak creatinine 1.65 and did improve during her hospitalization. -Would continue to monitor [facility] 12-04-2024 Miscellaneous Notes Associated Problem(s): Stage [...] therapy documented in this encounter [facility] 12-04-2024 Evaluation + Plan note Associated Problem(s): Elevated troponin Elevated high-sensitivity troponin of 12-1 24. 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 No anginal symptoms. Not a candidate for invasive evaluation due to debility and dementia. -No further workup currently needed [facility] 12-04-2024 Evaluation + Plan note Associated Problem(s): Paroxysmal atrial fibrillation (HCC) Noted to have 2 episodes of nonsustained A-fib while hospitalized. She was not placed on OAC due to low A-fib burden, dementia and debility. Remains in sinus rhythm today. -Continue Toprol 100 mg p.o. daily [facility] 12-04-2024 Evaluation + Plan note Associated Problem(s): HTN (hypertension) Goal less than 130/80. Controlled. -Continue Toprol 100 mg p.o. daily -Continue hydralazine 100 mg p.o. 3 times daily -Continue Imdur 30 mg p.o. daily - Continue hydrochlorothiazide 25 mg p.o. daily -Continue spironolactone 25 mg p.o. daily [facility] 12-04-2024 Evaluation + Plan note Associated [...] -Not currently requiring diuretic therapy [facility] 11-21-2024 Nurse Note Call placed to patients son to update status of slate picker. Transportation on site to slate picker patient. Rosas notified. Report called to [place] at [facility]. No questions at this time. Call placed to patients Rosas arredondo to notify of slate picker time. Rosas confirmed that patients dentures and wheelchair are at the facility. No questions at this time. Wound Care consulted for Pressure Injury Prevention. Pt's Troy score= 15 on 11/20 Pt refused assessment of pressure points at this time, stating, "I don't have anything wrong with my skin." Attempted to provide education regarding pressure injury prevention, but pt not receptive and continued to state, I don't have anything. Pt currently followed by Wound SURGICAL DRESSING MAKER group for MASD to bilateral buttocks. For bilateral buttocks MASD assessment please see Wound/Ostomy SURGICAL DRESSING MAKER progress notes. Prevention Measures in place, including: Pillows/wedges, Heels elevated off bed on pillows, Zinc/Moisture Barrier ointment (ET mix also noted at bedside), Waffle chair cushion (obtain for pt once getting out of bed to chair). Skin Care precaution order set ordered. Dietitian hardware technician involved. PT/OT consult in place. Will [...] another antihypertensive medication. Patient currently resting. Thank you!" Epic chat as follows to Dr. Nogueira: Hello! Patient is a DNR CCA on telemetry? Patient verbalizes "Take this off" clearly pulling off leads every 5 minutes. Refusing to wear. Please consider and evaluate discontinuing telemetry order. Thank you! PT currently Alert to self and time, confused on place. " Epic chat as follows to Dr. Nogueira: Good Evening! I see two separate orders for melatonin for this patient. Please verify if both are to be given, total of 6 mg oral melatonin. Thank you!" Tele alarm for HR into the 180's. Checked radial pulse 92, and again 86. Leads replaced. Pt HR on monitor now 89. Pt in no distress. No c/o CP, or SOB. Dr. Franz and Dr. Jack notified patient has arrived to floor, room 466 A from ER. documented in this encounter [facility] 11-21-2024 Miscellaneous Notes Discharge med list transmitted to [facility] via [facility] per TCC request. Patient has discharge order in and transport confirmed for 1600 back to [facility]. Facility and bedside nurse updated. Problem: Knowledge Deficit Goal: Patient/family/caregiver demonstrates understanding of disease process, treatment plan, medications, and discharge instructions Outcome: Progressing Problem: Potential for Compromised Skin Integrity Goal: Skin Integrity is Maintained or Improved Outcome: Progressing Patient remains on 4S. Discharge to [facility] cancelled on 11/17 due to low grade fever, tachycardia, and leukocytosis. Blood cultures obtained and are negative. No growth in 48 hours. CM following to assist with discharge back to [place] [facility]. Problem: Knowledge Deficit Goal: Patient/family/caregiver demonstrates understanding [...] heart failure. Anticipate discharge tomorrow back to [facility]. CM following to assist with discharge needs. [...] Outcome: Progressing Patient arrives via EMS from [facility] at 76% on room air. EMS placed patient on BIPAP during transport. Patient currently receiving IV zosyn, and vancomycin. Consults to Cardiology, Pulmonology, Palliative and Geriatrics, and PT/OT. Anticipate patient will return to [place]- return referral sent. No authorization needed to return. CM following to assist with discharge needs. Family Communication Number Called: [phone] Name of Designated Family Loss Prevention Manager: Rosas Villarreal son/HCPOA I left a HIPPA compliant message at the number listed above Family Loss Prevention Manager Updated on the Following: N/A Referral placed to return back to [facility] via [facility] per TCC request. Await review and response regarding ability to accept. TCC notified. Images from the original note were not included. [facility] Palliative Care Transitions of Care Note Carline Villarreal : 1945 ADMIT DATE: 11/13/2024 DISCHARGE DATE: TBD PRIMARY CARE PHYSICIAN: Evi Guevara CODE STATUS: DNR-CCA DISCHARGE DIAGNOSES: Principal Problem: Pneumonia of both lower lobes due to infectious organism HOSPITAL COURSE: Carline Villarreal is a 78 y.o. female from [facility] with PMHx of HFpEF, DM 2, Stroke with left hemiparesis, hypertension who was admitted to [facility] on 11/13 for SOB. Patient reportedly had [...] and encephalopathy. -legal surrogate decision maker is Rosas arredondo (Phone: [phone]) - patient has 2 children 1 son [...] they want patient to go back to [place] for PT/OT - Rosas stated that they [...] Progressing documented in this encounter [facility] 11-21-2024 Note Discharge Summary Carline Villarreal [...] and IV antibiotics. She was evaluated by [facility] and did not need ICU. She was seen by Cardiology, Pulmonology, Geriatrics, Palliative Care and PT/OT/FOAM MACHINE OPERATOR. The antibiotics and steroids were stopped and she was continued on IV diuresis. She did have some EDWIGE. She developed a fever and tachycardia and cultures/infectious work up was done but unrevealing. She was thought to need SNF. Arrangements were made and she was discharged. SIGNIFICANT DIAGNOSTIC STUDIES: CXR, CT head, echocardiogram CONSULTANTS: [facility], Pulmonology, Cardiology, Palliative Care, Geriatrics, Wound Care RECOMMENDED NEXT STEPS: Discharged back to [place] [facility] [place]. Follow up with Cardiology on 12/04/2024. Physical Exam: Vitals: BP (!) 161/89 (BP Location: Right arm, Patient Position: Lying) Pulse 79 Temp 36.3 ?C (97.4 ?F) (Temporal) Resp 18 Ht 5' 5" (1.651 m) Wt 210 lb (95.3 kg) [...] gross lesions, rashes LABS: CBC: Recent Labs 11/19/2422211/20/24 0309 11/21/24 0439 WBC 13.3* 12.8* 10.2 RBC 4.14 4.48 4.48 HGB 13.3 14.3 14.2 HCT 39.8 43.7 43.4 MCV 96.1 97.5 96.9 RDW 14.5 14.8 15.0 PLT 248 279 312 BMP: Recent Labs 11/19/2422211/20/24 0309 11/21/24 0439 NA 138 138 138 K 3.3* 3.6 [...] Your Medications These medications were sent to [facility] [address] [place] [id number] Hours: Wednesday to Wednesday 10 am to 6 pm enoxaparin 40 MG/0.4ML solution prefilled syringe hydrALAZINE 100 MG tablet isosorbide mononitrate ER 30 MG 24 hr tabl (more content not included)... [facility] 11-21-2024 History of Present illness Narrative Images from the original note were not included. OCCUPATIONAL THERAPY [facility] Treatment Note Name/MRN: Carline Villarreal ([id number]) Date of : 1945 Age: 78 y.o. Room/Bed: B4-466/B4466 A Visit #: 4 out of 7 Discharge Recommendation: [facility] Facility Equipment Needed: No Assessment Pt is [...] not included. Speech-Language Pathology SPEECH LANGUAGE PATHOLOGY [facility] Dysphagia Treatment Note Patient Name: Carline Villarreal [...] safe and effective dietary tolerance. Continue acute FOAM MACHINE OPERATOR therapy per initial plan of care and [...] swallowing Intervention/techniques (Progressing) Start: 11/17/24 Expected End: 05/23/25 Therapy Time FOAM MACHINE OPERATOR Individual Minutes Time In: 919 Time Out: 929 Minutes: 10 Jasmyn Vines CCC-FOAM MACHINE OPERATOR [facility] Geriatric Medicine Inpatient Consult Service Admission [...] to prolonged qtc. --Continue scheduled melatonin at --Monitor for constipation/urinary retention - last BM 11/20 --Possible medication contributions: gabapentin, percocet (last received 11/15) --11/21: Improving. Continue to monitor for signs/symptoms of infection. Dementia --Lives in [place] [facility] facility --History of stroke with worsening cognitive decline. --Try to avoid anticholinergic medications --11/21: May still not be at baseline. Continue plan. Debility --Contributing factors include stroke, Dementia, Chronic pain, heart failure --nathan lift and use of wheelchair at baseline --PT and OT --Anticipate return to [place] when medically stable --11/21: Stable. Anticipate SNF [...] Subjective Chief Complaint: I am at the half-way Geriatrics consulted for confusion restless with underlying dementia with prolonged qtc" HPI- The patient is known to me. 78 y.o. year-old female with past medical history of dementia, cerebral vascular disease (with left sided weakness), hypertension, CKD, bipolar disorder, hypothyroidism, gout, migraines who was admitted to acute care from [facility] on 11/13/24 for shortness of breath/cough/hypoxia. [...] TV. She states she is in the half-way. States she is "here to have fun". Reports she did not eat breakfast. Reports pain is "not bad". -Nursing reports patient is more alert. Took [...] (97.4 F) (Temporal) Resp 18 Ht 5' 5" (1.651 m) Wt 210 lb (95.3 kg) [...] 3.36 11/15/2024 Lab Results Component Value Date [id number] 310 11/15/2024 No results found for: "VITD25" Reviewed: allergies, previous encounters, active problem lists, medications, and labs [1] Current Facility-Administered Medications: acetaminophen (Tylenol) tablet 650 mg, 650 mg, Oral, q6h PRN, 650 mg at 11/19/242034 OR acetaminophen (Tylenol) suppository 650 mg, 650 mg, Rectal, q6h PRN, Dominguez Franz MD aluminum & magnesium hydroxide-simethicone (Mylanta) 200-200-20 MG/5ML oral suspension 10 mL, 10 mL, Oral, q4h PRN, Dominguez Franz MD xypqbtb-sgnbiqnkchsfq-lkeaiqgv (Excedrin Migraine) 250-250-65 MG per tablet 2 [...] Daily, Hammad Hinton MD, 30 mg at 11/20/24923 labetalol (Normodyne,Trandate) injection 10 mg, 10 mg, [...] Daily, Ayana Pascual PA-C, 100 mg at 05/19/25 0924 naloxone (Narcan) injection 0.4 mg, 0.4 [...] PRN, AGGIE Valenzuela CNP Hospitalist Progress Note 11/20/2024 [phone]: Please page me ([phone]) for patient care issues. [phone]: Please page [facility] Hospitalist for any issues. Subjective: Admit Date: 11/13/2024 PCP: Evi Guevara Room#: B4-667/B4-689 Annamaria Villarreal is a 78 y.o. female [...] Net 60 ml LABS: CBC: Recent Labs 11/18/2453611/19/2422211/20/24 0309 WBC 12.2* 13.3* 12.8* RBC 4.05 [...] 11 LIVER PROFILE: No results for input(s): "AST", "ALT", "BILITOT", "ALKPHOS", "PROT" in the last 72 hours. No lab exists for component: LABALBU PT/INR: No results for input(s): "PROTIME", "INR" in the last 72 hours. CARDIAC ENZYMES: No results for input(s): "TROPONINI" in the last 72 hours. Procalcitonin: No results found for: "PROCAL" @RISRSLTSPECIALTY@ Objective: Vitals: BP (!) 176/81 Pulse 85 Temp 36.1 C (97 F) (Temporal) Resp 16 Ht 5' 5" (1.651 m) Wt 210 lb (95.3 kg) [...] twice daily DC plans to [facility] if she remains medically stable, so far [...] MD Division of Hospitalist Medicine Inpatient Medical Services/[facility] [1] [2] busPIRone, 2.5 mg, Oral, BID [...] acetaminophen OR acetaminophen, aluminum & magnesium hydroxide-simethicone, gpietqn-otcjdlqbhqnpw-kvxuburh, dextrose, dextrose, glucagon (rDNA), glucose, hydrALAZINE, ipratropium-albuterol, [...] Subjectively: Confused today, thinks she is at [facility]. In no acute distress, on room air. Allergies Allergies[1] Review of Systems A pertinent review of systems was performed and was otherwise non-contributory. Vitals- BP (!) 176/81 Pulse 85 Temp 36.1 C (97 F) (Temporal) Resp 16 Ht 5' 5" (1.651 m) Wt 210 lb (95.3 kg) [...] normal. Routine labs: Recent Labs 11/18/24 0537 11/19/243 11/20/24 0309 WBC 12.2* 13.3* 12.8* HGB 12.7 13.3 14.3 HCT 39.1 39.8 43.7 PLT 231 248 279 Recent Labs 11/18/24 0537 11/19/24 0223 11/20/24 0309 NA 144 138 138 K 2.9* 3.3* 3.6 CL 108* 106 106 CO2 23 20* 21* BUN 68* 59* 44* CREATININE 1.76* 1.60* 1.29* MG -- 1.8 -- No results for input(s): "GLU" in the last 72 hours. Other Laboratory - Imaging Studies: Reviewed and as per electronic record. CxR/CT images reviewed by me when available. Giovanny Espinal MD Physician Pulmonary, Critical Care and Sleep Medicine. 11/20/2024 [1] No Known Allergies [facility] Geriatric Medicine Inpatient Consult Service Admission [...] percocet (last received 11/15) Dementia --Lives in [place] of [facility] --History of stroke with worsening cognitive decline. --Try to avoid anticholinergic medications --11/20: Still not back at baseline. Debility --Contributing factors include stroke, Dementia, Chronic pain, heart failure --nathan lift and use of wheelchair at baseline --PT and OT --Anticipate return to [place] when medically stable --11/20: Stable Bipolar Disorder [...] confusion restless with underlying dementia with prolonged qtc" HPI- The patient is known to me. 78 y.o. year-old female with past medical history of dementia, cerebral vascular disease (with left sided weakness), hypertension, CK,D, bipolar disorder, hypothyroidism, gout, migraines who was admitted to acute care from [facility] for shortness of breath/cough/hypoxia. Diagnosed with acute CHF exacerbation and EDWIGE. Cardiology following. ECHO 11/14 with EF 35%. Findings consistent with Takotsubo vs CAD. Developed EDWIGE. CBC: wbc 12.8 BMP: Creatinine 1.29, BUN 44 Reviewed yesterday's primary team progress note and pulmonology note. Interval History: She think she is at [facility]. She says she is upset because [...] (97 F) (Temporal) Resp 16 Ht 5' 5" (1.651 m) Wt 210 lb (95.3 kg) [...] is disoriented. Comments: Thinks she is at [facility] Psychiatric: Cognition and Memory: Cognition is [...] 3.36 11/15/2024 Lab Results Component Value Date [id number] 310 11/15/2024 No results found for: "VITD25" [1] Current Facility-Administered Medications: acetaminophen (Tylenol) tablet 650 mg, 650 mg, Oral, q6h PRN, 650 mg at 11/19/242034 OR acetaminophen (Tylenol) suppository 650 mg, 650 mg, Rectal, q6h PRN, Dominguez Franz MD aluminum & magnesium hydroxide-simethicone (Mylanta) 200-200-20 MG/5ML oral suspension 10 mL, 10 mL, Oral, q4h PRN, Dominguez Franz MD khkpbii-qbcysqpjxgkju-bliwyqul (Excedrin Migraine) 250-250-65 MG per tablet 2 [...] Nightly, Dominguez Franz MD, 3 mg at 11/19/242034 metoprolol succinate XL (Toprol-XL) 24 hr tablet 100 mg, 100 mg, Oral, Daily, Ayana Pascual PA-C, 100 mg at 11/20/2424 naloxone (Narcan) injection 0.4 mg, 0.4 mg, IntraVENous, q5 min PRN, Dominguez Franz MD ondansetron ODT (Zofran-ODT) disintegrating tablet 4 mg, 4 mg, Oral, q8h PRN OR ondansetron (Zofran) injection 4 mg, 4 mg, IntraVENous, q6h PRN, Dominguez Franz MD oxyCODONE-acetaminophen (Percocet) 5-325 MG per tablet 1 tablet, 1 tablet, Oral, q8h PRN, Dominguez Franz MD, 1 tablet at 11/15/24 1975 phenol (Chloraseptic) 1.4 % mouth/throat spray 1 [...] original note were not included. OCCUPATIONAL THERAPY [facility] Treatment Note Name/MRN: Carline Villarreal ([id number]) Date of : 1945 Age: 78 y.o. [facility] Visit #: 3 out of 7 Discharge Recommendation: [facility] Facility Equipment Needed: No Assessment Patient is [...] original note were not included. PHYSICAL THERAPY [facility] Treatment Note Name/MRN: Carline Villarreal ([id number]) Date of : 1945 Age: 78 y.o. Room/Bed: O0-240/B4-101 A Visit #: 2 out of 7 visits Discharge Recommendation: [facility] Facility Equipment Needed: No Other: TBD at [...] - pt initially stating she was at [facility] and then later in session patient states she was at a half-way Family/Caregiver Present: none Objective Exercises Hip Abduction: [...] not included. Speech-Language Pathology SPEECH LANGUAGE PATHOLOGY [facility] Dysphagia Treatment Note Patient Name: Carline Villarreal [...] noted. Plan & Recommendations Plan: Continue acute FOAM MACHINE OPERATOR therapy per initial plan of care and [...] Start: 11/17/24 Expected End: 11/24/24 Therapy Time FOAM MACHINE OPERATOR Individual Minutes Time In: 926 Time Out: 935 Minutes: 9 Jasmyn Vines CCC-FOAM MACHINE OPERATOR Nutrition update completed. Chart reviewed. Patient continues as a level 1. Images from the original note were not included. PHYSICAL THERAPY [facility] Treatment Note Name/MRN: Carline Villarreal ([id number]) Date of : 1945 Age: 78 y.o. [facility] Visit #: 1 out of 7 Discharge Recommendation: [facility] Facility Equipment Needed: No Assessment 78 y/o [...] Overall Orientation Status: Oriented to Person and "hospital" through she thinks she is at [place] Family/Caregiver Present: none Objective Bed Mobility Supine [...] across (R) (when returned back to supine, demo'ed figure 4 pattern at (L) hip), decreased [...] original note were not included. OCCUPATIONAL THERAPY [facility] Treatment Note Name/MRN: Carline Villarreal ([id number]) Date of : 1945 Age: 78 y.o. [facility] Visit #: 2 out of 7 Discharge Recommendation: [facility] Facility Equipment Needed: No Assessment Pt in [...] not included. Speech-Language Pathology SPEECH LANGUAGE PATHOLOGY [facility] Dysphagia Treatment Note Patient Name: Carline Villarreal Evaluation Date: 11/19/2024 Date of : 1945 Admission Date: 11/13/2024 10:39 AM Age: 78 y.o. [facility] Subjective Patient alert and cooperative. [...] awareness. Plan & Recommendations Plan: Continue acute FOAM MACHINE OPERATOR therapy per initial plan of care and [...] swallowing Intervention/techniques (Progressing) Start: 11/17/24 Therapy Time FOAM MACHINE OPERATOR Individual Minutes Time In: 0956 Time Out: 1012 Minutes: 16 Herber Simmons MA, [facility])-FOAM MACHINE OPERATOR Images from the original note were not included. [facility], Pulmonary Medicine [address] [place] [id number] Patient - Carline Villarreal, Age - 78 y.o. - 1945 Room Number - B4-466/B4-466 A Consulting - Sivakumar Walton MD Primary Care Physician - Evi Guevara Acct: No I do not have problem with the patient you know he was kind of he wanted to go home today I just kept him so Maybe can do little earlier okay 7- [id number] Date of Admission - 11/13/2024 10:39 AM [...] a history of dementia as per chart half-way resident, diabetes mellitus hypertension stroke Admitted with [...] PAP therapy at home Apparently came from [facility] 20 years ago Chest x-ray reviewed interpreted by me Vascular congestion with a small bilateral pleural effusion All other systems reviewed Objective Vitals: BP 149/69 Pulse 69 Temp 36.6 C (97.9 F) (Temporal) Resp 18 Ht 5' 5" (1.651 m) Wt 210 lb (95.3 kg) [...] 20 INR PTT No results found for: "PTT" Cultures Influence pcr neg Radiology Exam Date/Time: [...] acetaminophen OR acetaminophen, aluminum & magnesium hydroxide-simethicone, tzdoupt-xyiefjlsckbbk-xwuaqmyo, dextrose, dextrose, glucagon (rDNA), glucose, hydrALAZINE, ipratropium-albuterol, [...] Admit Date: 11/13/2024 PCP: Evi Guevara Room#: B4-390/B4-340 A BRIEF HOSPITAL COURSE: Carline Villarreal is [...] 14* 13 12 LIVER PROFILE: Recent Labs 11/17/246 AST 65* ALT 51* BILITOT 0.8 ALKPHOS 74 PROT 6.4 PT/INR: No results for input(s): "PROTIME", "INR" in the last 72 hours. CARDIAC ENZYMES: No results for input(s): "TROPONINI" in the last 72 hours. Procalcitonin: No results found for: "PROCAL" COVID-19 PCR: No results for input(s): "COVID19" in the last 72 hours. Objective: Vitals: BP 149/69 Pulse 69 Temp 36.6 C (97.9 F) (Temporal) Resp 18 Ht 5' 5" (1.651 m) Wt 210 lb (95.3 kg) [...] - Palliative Care evaluated. Recs noted - FOAM MACHINE OPERATOR evaluated. Recommended pureed diet - Follow-up blood cx - Continue supportive care - Continue chronic medications as able - PT/OT recommended SNF - TCC following for dispo planning. Discussed with biomass production manager TCC today who noted patient [...] Sivakumar Walton MD Division of Hospitalist Medicine [facility] [1] Past Medical History: Diagnosis Date [...] acetaminophen OR acetaminophen, aluminum & magnesium hydroxide-simethicone, czibjhj-skxncprtrguxr-hksatsxi, dextrose, dextrose, glucagon (rDNA), glucose, hydrALAZINE, ipratropium-albuterol, [...] and slightly confused today. Patient intermittent yelling "help" and heard from hallway but on evaluation, [...] 14* 14* 13 LIVER PROFILE: Recent Labs 11/17/246 AST 65* ALT 51* BILITOT 0.8 ALKPHOS 74 PROT 6.4 PT/INR: No results for input(s): "PROTIME", "INR" in the last 72 hours. CARDIAC ENZYMES: No results for input(s): "TROPONINI" in the last 72 hours. Procalcitonin: No results found for: "PROCAL" COVID-19 PCR: No results for input(s): "COVID19" in the last 72 hours. Objective: Vitals: BP 113/77 (BP Location: Right arm, Patient Position: Lying) Pulse 77 Temp 36.2 C (97.2 F) (Temporal) Resp 18 Ht 5' 5" (1.651 m) Wt 210 lb (95.3 kg) [...] - Palliative Care evaluated. Recs noted - FOAM MACHINE OPERATOR evaluated. Recommended pureed diet for today - [...] Sivakumar Walton MD Division of Hospitalist Medicine [facility] [1] Past Medical History: Diagnosis Date [...] acetaminophen OR acetaminophen, aluminum & magnesium hydroxide-simethicone, isfgazu-vxraazsvljyoj-bpehruvq, dextrose, dextrose, glucagon (rDNA), glucose, hydrALAZINE, ipratropium-albuterol, labetalol, lidocaine, magnesium hydroxide, naloxone, ondansetron ODT OR ondansetron, oxyCODONE-acetaminophen, phenol, polyethylene glycol (PEG) 3350 [4] Images from the original note were not included. Speech-Language Pathology SPEECH LANGUAGE PATHOLOGY [facility] Dysphagia Treatment Note Patient Name: Carline Villarreal [...] during session this date. Messaged RN and re: diet recommendations from previous date and continued recommendation for puree textures. Plan & Recommendations Plan: Continue acute FOAM MACHINE OPERATOR therapy per initial plan of care and [...] swallowing Intervention/techniques (Progressing) Start: 11/17/24 Therapy Time FOAM MACHINE OPERATOR Individual Minutes Time In: 1022 Time Out: 1042 Minutes: 20 Herber Simmons MA, [facility])-FOAM MACHINE OPERATOR Images from the original note were not included. [facility], Pulmonary Medicine [address] [place] [address] Patient - Carline Villarreal, Age - 78 y.o. - 1945 Room Number - B4-466/B4-466 A Consulting - Sivakumar Walton MD Primary Care Physician - Evi Guevara Acct: No I do not have problem with the patient you know he was kind of he wanted to go home today I just kept him so Maybe can do little earlier okay 7- [id number] Date of Admission - 11/13/2024 10:39 AM [...] a history of dementia as per chart half-way resident, diabetes mellitus hypertension stroke Admitted with [...] PAP therapy at home Apparently came from [facility] 20 years ago Chest x-ray reviewed interpreted by me Vascular congestion with a small bilateral pleural effusion All other systems reviewed Objective Vitals: BP 113/77 (BP Location: Right arm, Patient Position: Lying) Pulse 77 Temp 36.2 C (97.2 F) (Temporal) Resp 18 Ht 5' 5" (1.651 m) Wt 210 lb (95.3 kg) [...] 20 INR PTT No results found for: "PTT" Cultures Influence pcr neg Radiology Exam Date/Time: [...] acetaminophen OR acetaminophen, aluminum & magnesium hydroxide-simethicone, fjtwynr-lpikeiuxhqbbd-pmsqjxoc, dextrose, dextrose, glucagon (rDNA), glucose, hydrALAZINE, ipratropium-albuterol, [...] original note were not included. PHYSICAL THERAPY [facility] Name/MRN: Carline Villarreal ([id number]) Date: 11/18/2024 Chart review completed. PT attempted. Patient with family, visiting at bedside. Patient and family requests LEVERMAN return at later time for therapy. Max encouragement provided with no success. PT will continue to follow. Will re-attempt another time/date as schedule permits. Chante Pollard PTA Cosigned by Ivelisse Harley PT at 11/18/2024 1:15 PM EDT Pt chart reviewed and attempted to see. Pt with visitors in room, declining therapy at this time. Will continue to monitor and reattempt as schedule allows. Alba DUNLAP/Nicole Cosigned by Nela Joseph OT at 11/18/2024 2:54 PM EDT Hospitalist Progress Note 11/17/[id number]: Please page me ([phone]) for patient care issues. [phone]: Please page [facility] Hospitalist for any issues. Subjective: Admit Date: 11/13/2024 PCP: Evi Guevara Room#: [id number]/[id number] Annamaria Villarreal is a 78 y.o. female [...] son and, she has teeth at the half-way. She was febrile today morning, at 100.1 [...] PROT 6.4 PT/INR: No results for input(s): "PROTIME", "INR" in the last 72 hours. CARDIAC ENZYMES: No results for input(s): "TROPONINI" in the last 72 hours. Procalcitonin: Lab Results Component Value Date PROCAL 0.08 (H) 11/15/2024 @RISRSLTSPECIALTY@ Objective: Vitals: BP 152/87 Pulse 117 Temp 36.9 C (98.4 F) (Temporal) Resp 16 Ht 5' 5" (1.651 m) Wt 210 lb (95.3 kg) [...] recommends modified diet Cancel discharge planning to [facility] because of this febrile episode Decreased gabapentin [...] MD Division of Hospitalist Medicine Inpatient Medical Services/[facility] [1] [2] busPIRone, 2.5 mg, Oral, BID [...] acetaminophen OR acetaminophen, aluminum & magnesium hydroxide-simethicone, zwdulky-ikljcmkdrxuty-rcctidqz, dextrose, dextrose, glucagon (rDNA), glucose, hydrALAZINE, ipratropium-albuterol, labetalol, lidocaine, magnesium hydroxide, naloxone, ondansetron ODT OR ondansetron, oxyCODONE-acetaminophen, phenol, polyethylene glycol (PEG) 3350 Images from the original note were not included. Speech-Language Pathology SPEECH LANGUAGE PATHOLOGY [facility] Bedside Swallow Evaluation Patient Name: Carline Villarreal Evaluation Date: 11/17/2024 Date of : 1945 Admission Date: 11/13/2024 10:39 AM Age: 78 y.o. [facility] IMPRESSION: S/s oropharyngeal dysphagia. No [...] feeding. 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 Dysphagia History: No history of FOAM MACHINE OPERATOR services in EMR with retrospective chart review; [...] as late effect of cerebrovascular accident (CVA) ([facility]) 01/06/2019 Migraine headache 01/06/2019 Hypothyroid 01/06/2019 Gout [...] safe swallowing Intervention/techniques Start: 11/17/24 Therapy Time FOAM MACHINE OPERATOR Individual Minutes Time In: 1300 Time Out: 1318 Minutes: 18 Sindhu Lopes CCC-[facility] [1] Past Medical History: Diagnosis Date Diabetes mellitus (HCC) Hypertension Stroke (HCC) [2] No past surgical history on file. [facility] Cardiology /Electrophysiology Progress Note HPI / Interval History: Carline Villarreal has a history of dementia, diabetes, HTN, stroke who presented to [facility] with SOB. Pro-BNP 6596, hs trop 12-124. [...] if any additional questions. Pt lives at [facility] facility Medications: busPIRone, 2.5 mg, Oral, BID [...] found for: TROPDELTBASE No results found for: "TROPHS3" No results found for: TROPDELTSEC Recent Labs 11/15/24 0550 11/16/24 0456 NA 144 142 K 3.3* 3.4* CL 107 105 CO2 22* 23 BUN 40* 47* CREATININE 1.56* 1.65* Recent Labs 11/15/24 0550 11/16/24 0456 WBC 15.0* 12.7* HGB 13.8 14.1 HCT 40.9 41.5 MCV 92.5 93.9 PLT 308 317 No results for input(s): "BNP" in the last 72 hours. No results for input(s): "TRIG", "HDL", "LDLCALC", "CHOL" in the last 72 hours. No results [...] original note were not included. OCCUPATIONAL THERAPY [facility] Name/MRN: Carline Villarreal ([id number]) Date: 11/17/2024 Chart reviewed. Attempt to see [...] Dee OT at 11/17/2024 1:15 PM EDT [facility] Geriatric Medicine Inpatient Consult Service Admission [...] percocet (last received 11/15) Dementia --Lives in [place] of [facility] facility --History of stroke with worsening cognitive decline. --Try to avoid anticholinergic medications --11/17: Delirious today Debility --Contributing factors include stroke, Dementia, Chronic pain, heart failure --nathan lift and use of wheelchair at baseline --PT and OT --Anticipate return to [place] when medically stable --11/17: Worsening mental/medical status [...] confusion restless with underlying dementia with prolonged qtc" HPI- The patient is new to me but seen by the Geriatric Inpatient Consult team. 78 y.o. year-old female with past medical history of dementia, cerebral vascular disease (with left sided weakness), hypertension, CK,D, bipolar disorder, hypothyroidism, gout, migraines who was admitted to acute care from [facility] for shortness of breath/cough/hypoxia. Diagnosed with acute CHF exacerbation and EDWIGE. Cardiology following. ECHO 11/14 with EF 35%. Findings consistent with Takotsubo vs CAD. Reviewed yesterday's primary team progress note Discussed with hospitalist - Dr Sam Interval History: Ms Villarreal is lethargic and her speech is very difficult to understand. When asked about pain, she replied "yes". Seemed to indicate that she had a headache. She wasn't able to tell me where we are. When I pointed out her lunch tray (it looked like a few bites were eaten), she said "the food was good". I spoke with her nurse. She is [...] (98.2 F) (Temporal) Resp 16 Ht 5' 5" (1.651 m) Wt 210 lb (95.3 kg) [...] 3.36 11/15/2024 Lab Results Component Value Date [id number] 310 11/15/2024 No results found for: "VITD25" [1] Current Facility-Administered Medications: acetaminophen (Tylenol) tablet 650 mg, 650 mg, Oral, q6h PRN, 650 mg at 11/15/246 OR acetaminophen (Tylenol) suppository 650 mg, 650 mg, Rectal, q6h PRN, Dominguez Franz MD aluminum & magnesium hydroxide-simethicone (Mylanta) 200-200-20 MG/5ML oral suspension 10 mL, 10 mL, Oral, q4h PRN, Dominguez Franz MD tqfjtwx-roxekqhrfriye-rinenjst (Excedrin Migraine) 250-250-65 MG per tablet 2 tablet, 2 tablet, Oral, q8h PRN, Dominguez Franz MD, 2 tablet at 11/13/24 1838 busPIRone (Buspar) tablet 2.5 mg, 2.5 mg, Oral, BID, Dominguez Franz MD, 2.5 mg at 11/17/24 0853 dextrose 5 % infusion, 100 mL/hr, IntraVENous, PRN, Dominguez Franz MD dextrose 50 % solution 12.5 g, 12.5 g, IntraVENous, PRN, Dominguez Franz MD DULoxetine (Cymbalta) DR capsule 30 mg, 30 mg, Oral, Daily, Dominguez Franz MD, 30 mg at 11/17/24 0853 enoxaparin (Lovenox) syringe 40 mg, 40 mg, SubCUTAneous, Daily, Dominguez Franz MD, 40 mg at 11/16/242123 famotidine (Pepcid) tablet 20 mg, 20 mg, Oral, Daily, Dominguez Franz MD, 20 mg at 11/17/24 0853 gabapentin (Neurontin) capsule 400 mg, 400 mg, Oral, BID, Nara Tatum TAX REPRESENTATIVE - AUTOMOBILE RENTAL REPRESENTATIVE, 400 mg at 11/17/24 0853 glucagon (human recombinant) injection 1 mg, 1 [...] SubCUTAneous, TID WC, 2 Units at 11/17/24 0853 AND Insulin Lispro (Humalog) injection 0-12 Units, [...] from the original note were not included. [facility], Pulmonary Medicine [address] [place] [id number] Patient - Carline Villarreal, Age - 78 y.o. - 1945 Room Number - B4-466/B4-466 A Consulting - Ni Sam MD Primary Care Physician - Evi Dobbinsmaris Acct: No I do not have problem with the patient you know he was kind of he wanted to go home today I just kept him so Maybe can do little earlier okay 7- [id number] Date of Admission - 11/13/2024 10:39 AM [...] a history of dementia as per chart half-way resident, diabetes mellitus hypertension stroke Admitted with [...] PAP therapy at home Apparently came from [facility] 20 years ago Chest x-ray reviewed interpreted by me Vascular congestion with a small bilateral pleural effusion All other systems reviewed Objective Vitals: BP (!) 178/118 (BP Location: Left arm, Patient Position: Lying) Pulse 115 Temp 36.8 C (98.2 F) (Temporal) Resp 16 Ht 5' 5" (1.651 m) Wt 210 lb (95.3 kg) [...] 20 INR PTT No results found for: "PTT" Cultures Influence pcr neg Radiology Exam Date/Time: [...] acetaminophen OR acetaminophen, aluminum & magnesium hydroxide-simethicone, uwvbzpc-jokfrzegtjabh-ithftegh, dextrose, dextrose, glucagon (rDNA), glucose, hydrALAZINE, ipratropium-albuterol, [...] chronic heart failure (HCC) Hospitalist Progress Note 11/16/[id number]: Please page me ([phone]) for patient care issues. [phone]: Please page [facility] Hospitalist for any issues. Subjective: Admit Date: [...] 14* LIVER PROFILE: No results for input(s): "AST", "ALT", "BILITOT", "ALKPHOS", "PROT" in the last 72 hours. No lab exists for component: LABALBU PT/INR: No results for input(s): "PROTIME", "INR" in the last 72 hours. CARDIAC ENZYMES: No results for input(s): "TROPONINI" in the last 72 hours. Procalcitonin: Lab Results Component Value Date PROCAL 0.08 (H) 11/15/2024 @DIONNE@ Objective: Vitals: BP 147/99 Pulse 97 Temp (!) 35.8 C (96.5 F) (Temporal) Resp 20 Ht 5' 5" (1.651 m) Wt 210 lb (95.3 kg) [...] dysphagia evaluation Possible discharge planning tomorrow to [facility] Discussed with geriatric service and increase gabapentin [...] MD Division of Hospitalist Medicine Inpatient Medical Services/[facility] [1] [2] busPIRone, 2.5 mg, Oral, BID [...] acetaminophen OR acetaminophen, aluminum & magnesium hydroxide-simethicone, wmjwoip-khidmtvtjijjt-twzblukx, dextrose, dextrose, glucagon (rDNA), glucose, hydrALAZINE, ipratropium-albuterol, labetalol, lidocaine, magnesium hydroxide, naloxone, ondansetron ODT OR ondansetron, oxyCODONE-acetaminophen, phenol, polyethylene glycol (PEG) 3350, SUMAtriptan Smoking cessation counseling held due to patient status. Images from the original note were not included. PHYSICAL THERAPY [facility] Initial Evaluation Name/MRN: Carline Villarreal ([id number]) Evaluation Date: 11/16/2024 Date of : 1945 Admission Date: 11/13/2024 10:39 AM Age: 78 y.o. [facility]ation: [facility] Facility Equipment Needed: No Assessment IMPRESSION: Pt [...] 09/28/2022 Vitamin D deficiency 09/21/2022 Bipolar disorder ([facility]) 01/06/2019 Recurrent major depression ([facility]) 01/06/2019 Unilateral paralysis as late effect of cerebrovascular accident (CVA) ([facility]) 01/06/2019 Migraine headache 01/06/2019 Hypothyroid 01/06/2019 Gout 01/06/2019 Gastroesophageal reflux disease 01/06/2019 Dementia ([facility]) 01/06/2019 Obesity 01/06/2019 Psoriasis 01/06/2019 Cerebrovascular accident ([facility]) 07/19/2017 Anxiety 07/19/2017 HTN (hypertension) 07/19/2017 Hyperlipidemia [...] Responsibilities: Independent Receives Help From: None 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 Goals and/or treatment plan was established in collaboration with patient/family/other representatives. [1] Past Medical History: Diagnosis Date Diabetes mellitus (HCC) Hypertension Stroke (HCC) [2] No past surgical history on file. [facility] Geriatric Medicine Inpatient Consult Service Admission Date: 11/13/2024 Assessment Principal Problem: Acute exacerbation of chronic heart failure (HCC) Plan Dementia --Lives in [place] [facility] facility --History of stroke with worsening [...] baseline --PT and OT --Anticipate return to [place] --11/16: Stable. Therapy recommends SNF. Bipolar Disorder [...] will follow with you Subjective Chief Complaint: "where are the dean" Geriatrics consulted for confusion restless with underlying dementia with prolonged qtc" HPI- The patient is known to me. 78 y.o. year-old female with PMH of DM, stroke with left sided weakness, HTN, CKD, hypothyroidism, Bipolar disorder, Gout, Migraines, Dementia presented to [facility] from nursing facility on 11/13/24 with complaints of shortness of breath, cough, and hypoxia. Pulmonology consulted - acute hypoxic and hypercapnic respiratory failure likely due to acute decompensated congestive heart failure. Also diagnosed with EDWIGE. Cardiology following. ECHO 11/14 with EF 35%. Findings consistent with Takotsubo vs CAD. Interval History: Remains on telemetry. -Patient looks and points to TV and said "he sold dean, where are the dean?". Unable to states where she is. Denies [...] (96.5 F) (Temporal) Resp 20 Ht 5' 5" (1.651 m) Wt 210 lb (95.3 kg) [...] 464 ms QTC Interval 566 ms P [place] 47 degrees QRS [place] 44 degrees T Wave [place] 210 degrees VA Interval 172 ms POCT glucose meter Collection [...] 3.36 11/15/2024 Lab Results Component Value Date [id number] 310 11/15/2024 No results found for: "VITD25" Reviewed: allergies, previous encounters, imaging, active problem lists, medications, and labs [1] Current Facility-Administered Medications: acetaminophen (Tylenol) tablet 650 mg, 650 mg, Oral, q6h PRN, 650 mg at 11/15/24 2136 OR acetaminophen (Tylenol) suppository 650 mg, 650 mg, Rectal, q6h PRN, Dominguez Franz MD aluminum & magnesium hydroxide-simethicone (Mylanta) 200-200-20 MG/5ML oral suspension 10 mL, 10 mL, Oral, q4h PRN, Dominguez Franz MD znmwpaj-mhezrttiysovb-ozhziumt (Excedrin Migraine) 250-250-65 MG per tablet 2 [...] Daily, Dominguez Franz MD, 30 mg at 11/16/24828 enoxaparin (Lovenox) syringe 40 mg, 40 mg, SubCUTAneous, Daily, Dominguez Franz MD, 40 mg at 11/15/242120 famotidine (Pepcid) tablet 20 mg, 20 mg, Oral, Daily, Dominguez Franz MD, 20 mg at 11/16/24828 gabapentin (Neurontin) capsule 300 mg, 300 mg, Oral, BID, Dominguez Franz MD, 300 mg at 11/16/24828 glucagon (human recombinant) injection 1 mg, 1 mg, IntraMUSCular, PRN, Dominguez Franz MD glucose oral gel 15 g, 15 g, Oral, PRN, Dominguez Franz MD hydrALAZINE (Apresoline) tablet 25 mg, 25 mg, Oral, q8h PRN, Dominguez Franz MD, 25 mg at 11/15/242344 hydroCHLOROthiazide (HYDRODiuril) tablet 25 mg, 25 mg, Oral, Daily, Ayana Pascual PA-C, 25 mg at 11/16/24828 Insulin Lispro (Humalog) injection 0-12 Units, 0-12 Units, SubCUTAneous, TID WC, 2 Units at 11/16/24828 AND Insulin Lispro (Humalog) injection 0-12 Units, 0-12 Units, SubCUTAneous, Nightly, oDminguez Franz MD, 2 Units at 11/15/242119 ipratropium-albuterol (Duo-Neb) 0.5-2.5 mg/3 mL nebulizer solution 3 mL, 3 mL, Nebulization, 4x daily PRN, Dominguez Franz MD labetalol (Normodyne,Trandate) injection 10 mg, 10 mg, IntraVENous, q6h PRN, Gordo Nogueira MD, 10 mg at 11/15/242130 levothyroxine (Synthroid, Levoxyl) tablet 50 mcg, 50 mcg, Oral, qAM AC, Dominguez Franz MD, 50 mcg at 11/16/24 0501 lidocaine (Xylocaine) 2 % mouth solution 15 mL, 15 mL, Mouth/Throat, q3h PRN, Dominguez Franz MD lisinopril tablet 20 mg, 20 mg, Oral, Daily, Ayana Pascual PA-C, 20 mg at 11/16/24 0829 magnesium hydroxide (Milk of Magnesia) 400 MG/5ML suspension 30 mL, 30 mL, Oral, Daily PRN, Dominguez Franz MD melatonin tablet 3 mg, 3 mg, Oral, Nightly, Dominguez Franz MD, 3 mg at 11/15/24 2120 metoprolol succinate XL (Toprol-XL) 24 hr tablet 100 mg, 100 mg, Oral, Daily, Ayana Pascual PA-C, 100 mg at 11/16/24 0829 naloxone (Narcan) injection 0.4 mg, 0.4 mg, [...] q6h PRN, Dominguez Franz MD [facility] Cardiology /Electrophysiology Progress Note HPI / Interval History: Carline Villarreal has a history of dementia, diabetes, HTN, stroke who presented to [facility] with SOB. Pro-BNP 6596, hs trop 12-124. [...] found for: TROPDELTBASE No results found for: "TROPHS3" No results found for: TROPDELTSEC Recent Labs [...] 1056 BNP 6,596* No results for input(s): "TRIG", "HDL", "LDLCALC", "CHOL" in the last 72 hours. No results [...] original note were not included. OCCUPATIONAL THERAPY [facility] Treatment Note Name/MRN: Carline Villarreal ([id number]) Date of : 1945 Age: 78 y.o. Room/Bed: B4-466/B4-466 A Visit #: 1 out of 7 visits Discharge Recommendation: [facility] Facility Equipment Needed: No Assessment Pt tolerated [...] 11/25/24 Therapy Time Individual Co-treatment Time In 926 Time Out 0950 Minutes 23 Timed Code Treatment Minutes: 23 Minutes (1 ADL, 1 TA) Mya Dee OT Images from the original note were not included. [facility], Pulmonary Medicine [address] [place] [id number] Patient - Carline Villarreal, Age - 78 y.o. - 1945 Room Number - B4-466/B4-466 A Consulting - Ni Sam MD Primary Care Physician - Evi Guevara Acct: No I do not have problem with the patient you know he was kind of he wanted to go home today I just kept him so Maybe can do little earlier okay [phone]- [id number] Date of Admission - 11/13/2024 10:39 AM [...] a history of dementia as per chart half-way resident, diabetes mellitus hypertension stroke Admitted with [...] PAP therapy at home Apparently came from [facility] 20 years ago Chest x-ray reviewed interpreted by me Vascular congestion with a small bilateral pleural effusion All other systems reviewed Objective Vitals: BP 150/94 Pulse 96 Temp 36.4 C (97.5 F) (Temporal) Resp 16 Ht 5' 5" (1.651 m) Wt 210 lb (95.3 kg) [...] 20 INR PTT No results found for: "PTT" Cultures Influence pcr neg Radiology Exam Date/Time: [...] acetaminophen OR acetaminophen, aluminum & magnesium hydroxide-simethicone, dnrhofb-mwybmznfnfcrl-mnsssind, dextrose, dextrose, glucagon (rDNA), glucose, hydrALAZINE, ipratropium-albuterol, [...] heart failure (HCC) Hospitalist Progress Note 11/15/2024 [phone]: Please page me ([phone]) for patient care issues. [phone]: Please page [facility] Hospitalist for any issues. Subjective: Admit Date: [...] PROT 6.8 PT/INR: No results for input(s): "PROTIME", "INR" in the last 72 hours. CARDIAC ENZYMES: No results for input(s): "TROPONINI" in the last 72 hours. Procalcitonin: Lab Results Component Value Date PROCAL 0.08 (H) 11/15/2024 @RISRSLTSPECIALTY@ Objective: Vitals: BP (!) 194/102 (BP Location: Right arm, Patient Position: Lying) Comment: Dr carolee given PRN beta liana etc, NNO at this itme Pulse 96 Temp 36.3 C (97.4 F) (Temporal) Resp 18 Ht 5' 5" (1.651 m) Wt 210 lb (95.3 kg) [...] MD Division of Hospitalist Medicine Inpatient Medical Services/[facility] [1] [2] busPIRone, 2.5 mg, Oral, BID [...] acetaminophen OR acetaminophen, aluminum & magnesium hydroxide-simethicone, npjnwic-zvcvhdjeewkwp-awaqmdth, dextrose, dextrose, glucagon (rDNA), glucose, hydrALAZINE, ipratropium-albuterol, labetalol, lidocaine, magnesium hydroxide, naloxone, ondansetron ODT OR ondansetron, oxyCODONE-acetaminophen, phenol, polyethylene glycol (PEG) 3350, SUMAtriptan Images from the original note were not included. PHYSICAL THERAPY [facility] Name/MRN: Carline Villarreal ([id number]) Date: 11/15/2024 PT order received and chart reviewed. SPT and PT presented to room and introduced self/role. Pt with intermittent SOB at rest. SpO2 99% on room air. Pt reported mid sternal chest pain and dizziness. RN notified immediately. Reports BP high and plan for EKG. Will await results/medical stability prior to therapy eval. Rosalie Jacob, SPT Cosigned by Justina Doyle PT at 11/15/2024 11:21 AM EDT Nutrition rescreen completed. Chart reviewed. Patient to be monitored and followed by the diet hardware technician. [facility] [place] [facility] Cardiology /Electrophysiology Progress Note HPI [...] found for: TROPDELTBASE No results found for: "TROPHS3" No results found for: TROPDELTSEC Recent Labs [...] 1056 BNP 6,596* No results for input(s): "TRIG", "HDL", "LDLCALC", "CHOL" in the last 72 hours. No results found for: LDLCHOLESTER No results found for: "TSH" EF BP Date Value Ref Range Status [...] -legal surrogate decision maker is sonRosas (Phone: [phone]) - patient has 2 children 1 son [...] they want patient to go back to [place] for PT/OT - Rosas stated that they are not ready fro hospice - provided empathetic listening and emotional support to patient and Rosas - patient already has DNRCCA established - discussed with primary team attending Dr. Mayfiled, bedside RN - since family has clearly [...] is a 78 y.o. female admitted to [facility] on 11/13 for SOB. Patient seen and examined this morning. Discussed with staff. Patient was calm , quiet this morning when seen. Son Rosas at bedside. Patient was AXOx2-3. Patient denied any complains. Said her SOB is better. Patient was requesting to be discharged back to [place]. Palliative Care Assessments: Goals of care: Go back to facility for PT/OT Advanced Directives: Health Care Power of Retail Clerk, DNR Functional Assessment: PPS 30% bedbound; can't do any work/extensive disease; total care; reduced intake; full or drowsy or confusion Prognosis: depends upon goals of care Spiritual Assessment: No spiritual distress identified Bereavement and Grief: To Be Determined PDMP/OARRS Reviewed: No Report Available Social history: Marital status: single Children: Unknown Living status: half-way Work history: Retired [place] status: No Episcopal david: Spiritism ROS: See palliative care ROS/ESAS below; Detail ROS unable to be obtained due to patient's mental status [place] Symptom Assessment Score [place] Score Pain Score (if non-verbal, add .FLACC [...] (97 F) (Temporal) Resp 17 Ht 5' 5" (1.651 m) Wt 210 lb (95.3 kg) [...] original note were not included. OCCUPATIONAL THERAPY [facility] Initial Evaluation Name/MRN: Carline Villarreal ([id number]) Evaluation Date: 11/15/2024 Date of : 1945 Admission Date: 11/13/2024 10:39 AM Age: 78 y.o. [facility] Dis[facility]ation: [facility] Facility Equipment Needed: No Assessment IMPRESSION: Pt [...] Bipolar disorder (HCC) 01/06/2019 Recurrent major depression ([facility]) 01/06/2019 Unilateral paralysis as late effect of cerebrovascular accident (CVA) ([facility]) 01/06/2019 Migraine headache 01/06/2019 Hypothyroid 01/06/2019 Gout 01/06/2019 Gastroesophageal reflux disease 01/06/2019 Dementia ([facility]) 01/06/2019 Obesity 01/06/2019 Psoriasis 01/06/2019 Cerebrovascular accident [...] Responsibilities: Independent Receives Help From: None 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 Goals and/or treatment plan was established in collaboration with patient/family/other representatives. [1] Past Medical History: Diagnosis Date Diabetes mellitus (HCC) Hypertension Stroke (HCC) [2] No past surgical history on file. Images from the original note were not included. [facility], Pulmonary Medicine [address] [place] [id number] Patient - Carline Villarreal, Age - 78 y.o. - 1945 Room Number - B4-466/B4-466 A Consulting - Ni Sam MD Primary Care Physician - Evi Guevara Acct: No I do not have problem with the patient you know he was kind of he wanted to go home today I just kept him so Maybe can do little earlier okay 7- [id number] Date of Admission - 11/13/2024 10:39 AM [...] a history of dementia as per chart half-way resident, diabetes mellitus hypertension stroke Admitted with [...] PAP therapy at home Apparently came from [facility] 20 years ago Chest x-ray reviewed interpreted by me Vascular congestion with a small bilateral pleural effusion All other systems reviewed Objective Vitals: BP (!) 174/101 (BP Location: Right arm, Patient Position: Lying) Pulse 98 Temp 36.1 C (97 F) (Temporal) Resp 17 Ht 5' 5" (1.651 m) Wt 210 lb (95.3 kg) [...] 20 INR PTT No results found for: "PTT" Cultures Influence pcr neg Radiology Exam Date/Time: [...] acetaminophen OR acetaminophen, aluminum & magnesium hydroxide-simethicone, eoyjpbs-dijuwyzlgqywn-ovzentlv, dextrose, dextrose, glucagon (rDNA), glucose, hydrALAZINE, ipratropium-albuterol, [...] original note were not included. PHYSICAL THERAPY [facility] Name/MRN: Carline Villarreal ([id number]) Date: 11/14/2024 PT orders received. Chart reviewed. Pt currently with nursing and unavailable for PT session. Will re-attempt as pt appropriate and schedule permits. Justina Doyle, PT Hospitalist Progress Note Subjective: Admit Date: [...] management in ED, troponin appears demand mediated. [place]se as a second language, well spoken with [...] PROT 6.8 PT/INR: No results for input(s): "PROTIME", "INR" in the last 72 hours. CARDIAC ENZYMES: No results for input(s): "TROPONINI" in the last 72 hours. Procalcitonin: Lab Results Component Value Date PROCAL 0.02 11/13/2024 COVID-19 PCR: No results for input(s): "COVID19" in the last 72 hours. Objective: Vitals: BP (!) 170/97 (BP Location: Right arm, Patient Position: Lying) Pulse 83 Temp 36.1 C (96.9 F) (Temporal) Resp 20 Ht 5' 5" (1.651 m) Wt 210 lb (95.3 kg) [...] canceled no sputum,, bcx ngtd -Overall poor mcc prognosis -palliative consult - Dementia-geriatrics consult -delerium [...] MD Division of Hospital Medicine Inpatient Medical Services/[facility] [1] Past Medical History: Diagnosis Date Diabetes [...] acetaminophen OR acetaminophen, aluminum & magnesium hydroxide-simethicone, tywnzli-pyjxlbzunrhqn-aavxhszv, dextrose, dextrose, glucagon (rDNA), glucose, hydrALAZINE, ipratropium-albuterol, labetalol, lidocaine, magnesium hydroxide, naloxone, ondansetron ODT OR ondansetron, oxyCODONE-acetaminophen, phenol, polyethylene glycol (PEG) 3350, SUMAtriptan [4] Pharmacy to Dose Vancomycin - Progress Note Recent Labs 11/13/24 1056 11/14/24 0044 BUN 28* 32* CREATININE 1.41* 1.37* Lab Results Component Value Date [facility] 16.8 11/14/2024 Doses, serum creatinine, and vancomycin levels interfaced automatically to [employer] and data has been analyzed and interpreted. [...] Cordero RPh Pharmacist Available via Secure Chat [facility] Respiratory Care Department Progress Note Comment [...] mind regarding wearing PAP to hit their "call light" or inform their nurse to contact Respiratory. [...] patient, documented in this encounter [facility] 11-21-2024 Note [facility] ital Wound Care Progress Note Carline Villarreal AGE: [...] transport to ED. Wound Care consulted for "Pressure Injury Buttocks" Patient sitting up in bed eating pudding. [...] (Temporal) Resp 18 Ht 1.651 m (5' 5") Wt 95.3 kg (210 lb) SpO2 98% [...] (H) 11/21/2024 PT/INR: No results found for: "PROTIME", "INR" Prealbumin: No results found for: PREALBUMIN Albumin:No components found for: LABALBU Sed Rate:No results found for: SEDRATE Micro: No components found for: BC Assessment/Plan: Nursing staff to perform dressing change: Bilateral buttocks: MASD (Bodily fluids) - Improving -cleanse with soap and water, apply ET mix TID and PRN, leave PELON -waffle chair cushion -Q2hr/PRN turns -glide sheets for T&R -continence checks Q1-2 Hrs/PRN Nutritional support Wound Care to follow Recommend to follow up at [facility] Outpatient wound care center after hospital discharge. Any questions or concerns please secure chat "[facility] wound/ostomy". Thank you for the consult! I personally [...] times daily. cloNID (more content not included)... [facility] 11-20-2024 Note Hospitalist Progress Note 11/20/2024 [phone]: Please page me ([phone]) for patient care issues. [phone]: Please page [facility] Hospitalist for any issues. Subjective: Admit Date: 11/13/2024 PCP: Evi Guevara Room#: R8-478/R5-408 Annamaria Villarreal is a 78 y.o. female [...] Net 60 ml LABS: CBC: Recent Labs 11/18/2453611/19/2422211/20/24 0309 WBC 12.2* 13.3* 12.8* RBC 4.05 [...] 11 LIVER PROFILE: No results for input(s): "AST", "ALT", "BILITOT", "ALKPHOS", "PROT" in the last 72 hours. No lab exists for component: LABALBU PT/INR: No results for input(s): "PROTIME", "INR" in the last 72 hours. CARDIAC ENZYMES: No results for input(s): "TROPONINI" in the last 72 hours. Procalcitonin: No results found for: "PROCAL" @RISRSLTSPECIALTY@ Objective: Vitals: BP (!) 176/81 Pulse 85 Temp 36.1 ?C (97 ?F) (Temporal) Resp 16 Ht 5' 5" (1.651 m) Wt 210 lb (95.3 kg) [...] twice daily DC plans to [facility] if she remains medically stable, so far [...] continued admission due to congestive heart failure (more content not included)... [facility] 11-20-2024 Note PULMONOLOGY CONSULT PROGRESS NOTE 11/20/2024 [...] Subjectively: Confused today, thinks she is at [facility]. In no acute distress, on room air. Allergies Allergies[1] Review of Systems A pertinent review of systems was performed and was otherwise non-contributory. Vitals- BP (!) 176/81 Pulse 85 Temp 36.1 ?C (97 ?F) (Temporal) Resp 16 Ht 5' 5" (1.651 m) Wt 210 lb (95.3 kg) [...] Behavior: Behavior normal. Routine labs: Recent Labs 11/18/2437 11/19/243 11/20/24 0309 WBC 12.2* 13.3* 12.8* HGB 12.7 13.3 14.3 HCT 39.1 39.8 43.7 PLT 231 248 279 Recent Labs 11/18/2437 11/19/243 11/20/24 0309 NA 144 138 138 K 2.9* 3.3* 3.6 CL 108* 106 106 CO2 23 20* 21* BUN 68* 59* 44* CREATININE 1.76* 1.60* 1.29* MG -- 1.8 -- No results for input(s): "GLU" in the last 72 hours. Other Laboratory - Imaging Studies: Reviewed and as per electronic record. CxR/CT images reviewed by me when available. Giovanny Espinal MD Physician Pulmonary, Critical Care and Sleep Medicine. 11/20/2024 [1] No Known Allergies [facility] 11-20-2024 Consult note Associated Order (s): INPATIENT CONSULT TO WOUND CARE PROVIDERS Images from the original note were not included. [facility] Wound Care CONSULT Note Carline Villarreal AGE: 78 y.o. GENDER: female : 1945 Subjective: HISTORY of PRESENT ILLNESS HPI Carline Villarreal is a 78 y.o. female who presents for a wound consult. HPI: Calrine is a 78 y.o. female who presented to ED on 11/13/24 with chief complaint od SOB. Patient from SNF w/ SOB, reported 76% sp02 on room air when EMS first arrived. She was placed on BIPAP during transport to ED. Wound Care consulted for "Pressure Injury Buttocks" PAST MEDICAL HISTORY Medical History[1] PAST SURGICAL HISTORY Surgical History[2] FAMILY HISTORY Family History[3] SOCIAL HISTORY Social History[4] ALLERGIES Allergies[5] MEDICATIONS Medications Ordered Prior to Encounter[6] REVIEW OF SYSTEMS Pertinent items are noted in HPI. Objective: BP (!) 176/81 Pulse 85 Temp 36.1 C (97 F) (Temporal) Resp 16 Ht 1.651 m (5' 5") Wt 95.3 kg (210 lb) SpO2 99% [...] (H) 11/20/2024 PT/INR: No results found for: "PROTIME", "INR" Prealbumin: No results found for: PREALBUMIN Albumin:No components found for: LABALBU Sed Rate:No results found for: SEDRATE Micro: No components found for: BC Assessment/Plan: Nursing staff to perform dressing change: Bilateral buttocks: MASD (Bodily fluids) -cleanse with soap and water, apply ET mix TID and PRN, leave MANAGER STORAGE -waffle chair cushion -Q2hr/PRN turns -glide sheets for T&R -continence checks Q1-2 Hrs/PRN Nutritional support Wound Care to follow Recommend to follow up at [facility] Outpatient wound care center after hospital discharge. Any questions or concerns please secure chat "[facility] wound/ostomy". Thank you for the consult! I personally [...] EDT Associated Order(s): IP CONSULT TO GERIATRICS [facility] Geriatric Medicine Inpatient Consult Service Admission Date: 11/13/2024 Admission Status: INPATIENT Chief Complaint: fall Reason for Appointment Geriatrics consulted for confusion restless with underlying dementia with prolonged qtc" Assessment & Plan Principal Problem: Acute exacerbation of chronic heart failure (HCC) Dementia --Lives in [place] of [facility] facility --History of stroke with worsening [...] and OT eval pending. --Anticipate return to [place] Bipolar Disorder Anxiety --takes Lexapro 5mg daily [...] Bipolar disorder, Gout, Migraines, Dementia presented to [facility] from nursing facility on 11/13/24 with complaints [...] privacy Patient with Constant Observation: Monitored Room chef manager completed: Pt deemed to not be an elopement risk Nursing Delirium Screen (Nu-Desc): Nursing Delirium Symptom Checklist Total Score: 1 Conversation with patient: -Reports breathing is ok. States she has pain in both knees and left hip. Slept ok - says she was told last night "go to sleep". She knows she is in the hospital and states she is here due to a fall. Not able to state where she lives. Conversation with caregiver: Rosas son. -Lives in [facility]. Difficult to obtain history from her [...] this. Advance Care Planning Healthcare Power of Retail Clerk: Yes, Rosas arredondo Code Status: DNR-CCA Allergies[1] [...] (96.9 F) (Temporal) Resp 20 Ht 5' 5" (1.651 m) Wt 210 lb (95.3 kg) [...] 406 ms QTC Interval 508 ms P [place] 43 degrees QRS [place] 14 degrees T Wave [place] 201 degrees VA Interval 190 ms POCT glucose meter Collection [...] - 100 mg/dL No results found for: "TSH" No components found for: "B12" No results found for: "VITD25" Reviewed: active problem list, medication list, allergies, social history, notes from last encounter, notes from last several encounters, lab results, imaging Follow-up: will follow with you Nara Tatum APRN - ANTOINE 11/15/24 8:07 AM [1] No Known Allergies [2] Current Facility-Administered Medications: acetaminophen (Tylenol) tablet 650 mg, 650 mg, Oral, q6h PRN, 650 mg at 11/15/24 0755 OR acetaminophen (Tylenol) suppository 650 mg, 650 mg, Rectal, q6h PRN, Dominguez Franz MD aluminum & magnesium hydroxide-simethicone (Mylanta) 200-200-20 MG/5ML oral suspension 10 mL, 10 mL, Oral, q4h PRN, Dominguez Franz MD xbjhsby-mfmnmhqoioeir-lchqluwv (Excedrin Migraine) 250-250-65 MG per tablet 2 tablet, 2 tablet, Oral, q8h PRN, Dominguez Franz MD, 2 tablet at 11/13/24 8761 busPIRone (Buspar) tablet 2.5 mg, 2.5 mg, [...] Daily, Dominguez Franz MD, 20 mg at 11/14/24821 gabapentin (Neurontin) capsule 300 mg, 300 mg, [...] Nightly, Dominguez Franz MD, 2 Units at 11/14/24 2132 ipratropium-albuterol (Duo-Neb) 0.5-2.5 mg/3 mL nebulizer solution [...] mL, 15 mL, Mouth/Throat, q3h PRN, Dominguez Frazn MD magnesium hydroxide (Milk of Magnesia) 400 [...] signing off for vancomycin dosing. Leandra Cordero [facility], Date: 11/14/24 Time: 11:22 AM Associated Order(s): [...] -legal surrogate decision maker is sonRosas (Phone: [phone]) - met with patient this afternoon, patient [...] Villarreal is a 78 y.o. female from [facility] with PMHx of HFpEF, DM 2, Stroke with left hemiparesis, hypertension who was admitted to [facility] on 11/13 for SOB. Patient reportedly had [...] Determined Advanced Directives: Health Care Power of Retail Clerk, DNR Functional Assessment: PPS 30% bedbound; can't do any work/extensive disease; total care; reduced intake; full or drowsy or confusion Prognosis: depends upon goals of care Spiritual Assessment: No spiritual distress identified Bereavement and Grief: To Be Determined PDMP/OARRS Reviewed: No Report Available Social history: Marital status: single Children: Unknown Living status: half-way Work history: Retired status: No Episcopal david: Spiritism ROS: See palliative care ROS/ESAS below; Detail ROS unable to be obtained due to patient's mental status [place] Symptom Assessment Score [place] Score Pain Score (if non-verbal, add .FLACC [...] (97.7 F) (Temporal) Resp 17 Ht 5' 5" (1.651 m) Wt 210 lb (95.3 kg) [...] Order(s): IP CONSULT TO CARDIOLOGY [facility] [place] Cardiology Consult Note Reason for Consult/Chief Complaint: [...] source Temporal, resp. rate 17, height 5' 5" (1.651 m), weight 210 lb (95.3 kg), [...] HGBA1C 5.0 12/17/2023 No results found for: "TSH" Lab Results Component Value Date CHOL 114 [...] atorvastatin to limit polypharmacy. Hammad Hinton MD, FACC, FASE DATE of SERVICE: 11/14/2024 [1] Past Medical [...] from the original note were not included. [facility], Pulmonary Medicine [address] [place] [id number] [id number] 1945 Date of Admission - 11/13/2024 10:39 AM Date of evaluation - 11/14/2024 Room - [facility] A Hospital Day - 1 Consulting - Dominguez Franz MD Primary Care Physician - Evi Guevara [facility] Problem List Problem List[1] Reason for Consult Hypoxic hypercapnic respiratory failure congestive heart failure probable [facility] History of Present Illness Carline Villarreal is a 78 y.o. female admitted for Shortness of breath noted to be in acute hypoxic hypercapnic respiratory failure decompensated congestive heart failure Patient does have a history of dementia as per chart half-way resident, diabetes mellitus hypertension stroke Admitted with [...] PAP therapy at home Apparently came from [facility] 20 years ago Chest x-ray reviewed interpreted [...] itching, open sores Vitals height is 5' 5" (1.651 m) and weight is 210 lb [...] ml Output 601 ml Net -501 ml @[id number]@ Physical Exam General appearance: Awake, alert, no [...] 20 INR PTT No results found for: "PTT" Cultures Influenza PCR negative Radiology Exam Date/Time: [...] acetaminophen OR acetaminophen, aluminum & magnesium hydroxide-simethicone, nyokjae-bkndwgoohbbum-rxouqrne, dextrose, dextrose, glucagon (rDNA), glucose, haloperidol lactate, [...] class II, stroke, hypertension who presented to [facility] ED from SNF for shortness of breath [...] If no bm in 3 days Historical ProviderMD melatonin 1 MG tablet Take 3 mg by mouth Nightly. Historical ProviderMD metoprolol tartrate (Lopressor) 50 MG tablet Take 50 mg by mouth 2 times daily. Hold for SBP<100, HR <55 Historical ProviderMD oxyCODONE-acetaminophen (Percocet) 5-325 MG tablet Take 1 tablet by mouth every 8 hours as needed (for pain). Historical ProviderMD polyethylene glycol, PEG, 3350 (Miralax) 17 g packet Take 17 g by mouth Once. Historical ProviderMD SUMAtriptan (Imitrex) 50 MG tablet Take 50 mg by mouth every 6 hours as needed for migraine. Historical ProviderMD traMADol (Ultram) 50 MG tablet Take 50 [...] Normal [] Scar/Lesion/Mass Inspection of teeth/lips/gums Dentition: [x][place] Teeth []Dentures Lips/Gums: [x]Intact []Lesion Present Mucosa: [x][place] []Moist []Dry Neck: External Appearance Overall Appearance: [...] ABGs: Recent Labs 11/13/24 1056 11/13/24 1532 [id number] Nasal Cannula (LPM) Nasal Cannula (LPM) Lactic Acid: No results for input(s): "LACTATE" in the last 72 hours. INR: No results for input(s): "INR" in the last 72 hours. Cardiac Injury Profile: No results for input(s): "CKTOTAL", "CKMB", "TROPONINI" in the last 72 hours. Labs in [...] COVID19 Legionella Ag: No results found for: "LEGIONELLAPN" Strep Ag: No results for input(s): "STREPPNEUMO" in the last 72 hours. Imaging- CXR [...] Height as of 12/17/23: 1.676 m (5' 6"). Weight as of this encounter: 102 kg [...] creatinine, and vancomycin levels interfaced automatically to ZhenXin and data has been analyzed and interpreted. [...] Chat documented in this encounter [facility] 11-20-2024 Hospital Discharge instructions Josey Jackson LPN - 11/20/2024 9:12 AM EDT Images from the original note were not included. Continuity of Care Form Patient Name: Carline Villarreal : 1945 Admit date: 11/13/2024 Discharge date: 11/21/24 Code Status Order: DNR-CCA Advance Directives: N Admitting Physician: Dominguez Franz MD PCP: Evi Guevara Discharging Nurse: Mihir Jackson LPN Discharging Hospital Unit/Room#: B4-466/B4-466 A Discharging Unit Emergency Contact: Extended Emergency [...] (Temporal) Resp 16 Ht 1.651 m (5' 5") Wt 95.3 kg (210 lb) SpO2 99% [...] assistance Toileting Total assistance Feeding Minimal assistance Etl Programmer Minimal assistance Med Delivery yes Wound Care [...] Date: 11/13/2024 Discharging to Facility/ Agency Name: [facility] Address: [address] [place] [address] Fax: Dialysis Facility (if applicable) Name: Address: Dialysis Schedule: Phone: Fax: Stopping Builder/Dough Puncher signature: ICIAN SECTION Name: Carline Villarreal Prognosis: fair Condition at Discharge: stable Rehab Potential (if transferring to Rehab): fair Recommended Labs or Other Treatments After Discharge: BMP/CBC in one week The individual is being admitted to a nursing facility directly from an [facility] or a unit of a [facility] that is not operated by or licensed by [facility] under section 5119.14 or 5160-3-15.1 5 The individual requires the level of services provided by a nursing facility for the condition for which he or she was treated in the hospital and, Physician Certification: I certify the above information and transfer of Carline Villarreal is necessary for the continuing treatment of the diagnosis listed and that she requires fci facility for less than 30 days. Update Admission H&P: No change in H&P PHYSICIAN SIGNATURE: documented in this encounter [facility] 11-19-2024 Note Hospitalist Progress Note 11/19/2024 [...] BMP: Recent Labs 11/17/24 1316 11/18/24 0537 11/19/24222 NA 144 144 138 K 3.2* 2.9* 3.3* CL 108* 108* 106 CO2 22* 23 20* BUN 70* 68* 59* CREATININE 2.26* 1.76* 1.60* GLUCOSE 244* 168* 142* CALCIUM 8.3* 8.1* 8.3* ANIONGAP 14* 13 12 LIVER PROFILE: Recent Labs 11/17/24 1316 AST 65* ALT 51* BILITOT 0.8 ALKPHOS 74 PROT 6.4 PT/INR: No results for input(s): "PROTIME", "INR" in the last 72 hours. CARDIAC ENZYMES: No results for input(s): "TROPONINI" in the last 72 hours. Procalcitonin: No results found for: "PROCAL" COVID-19 PCR: No results for input(s): "COVID19" in the last 72 hours. Objective: Vitals: BP 149/69 Pulse 69 Temp 36.6 ?C (97.9 ?F) (Temporal) Resp 18 Ht 5' 5" (1.651 m) Wt 210 lb (95.3 kg) [...] above findings & (more content not included)... [facility] 11-18-2024 Note Hospitalist Progress Note 11/18/2024 Subjective: Admit Date: 11/13/2024 PCP: Evi Guevara Room#: A9-517/W9-884 A BRIEF HOSPITAL COURSE: Carline Villarreal is [...] and slightly confused today. Patient intermittent yelling "help" and heard from hallway but on evaluation, [...] PROT 6.4 PT/INR: No results for input(s): "PROTIME", "INR" in the last 72 hours. CARDIAC ENZYMES: No results for input(s): "TROPONINI" in the last 72 hours. Procalcitonin: No results found for: "PROCAL" COVID-19 PCR: No results for input(s): "COVID19" in the last 72 hours. Objective: Vitals: BP 113/77 (BP Location: Right arm, Patient Position: Lying) Pulse 77 Temp 36.2 ?C (97.2 ?F) (Temporal) Resp 18 Ht 5' 5" (1.651 m) Wt 210 lb (95.3 kg) [...] A1c 5.5% (11/02 (more content not included)... [facility] 11-17-2024 Note Hospitalist Progress Note 11/17/2024 [phone]: Please page me ([phone]) for patient care issues. [phone]: Please page [facility] Hospitalist for any issues. Subjective: Admit Date: [...] son and, she has teeth at the half-way. She was febrile today morning, at 100.1 [...] PROT 6.4 PT/INR: No results for input(s): "PROTIME", "INR" in the last 72 hours. CARDIAC ENZYMES: No results for input(s): "TROPONINI" in the last 72 hours. Procalcitonin: Lab Results Component Value Date PROCAL 0.08 (H) 11/15/2024 @RISRSLTSPECIALTY@ Objective: Vitals: BP 152/87 Pulse 117 Temp 36.9 ?C (98.4 ?F) (Temporal) Resp 16 Ht 5' 5" (1.651 m) Wt 210 lb (95.3 kg) [...] Exam: Not applicable (more content not included)... [facility] 11-17-[address] [facility] Cardiology /Electrophysiology Progress Note HPI / Interval History: Carline Villarreal has a history of dementia, diabetes, HTN, stroke who presented to [facility] with SOB. Pro-BNP 6596, hs trop 12-124. [...] if any additional questions. Pt lives at [facility] facility Medications: busPIRone, 2.5 mg, Oral, BID [...] acute cardiac injur (more content not included)... [facility] 11-16-2024 Note Hospitalist Progress Note 11/16/2024 [phone]: Please page me ([phone]) for patient care issues. [phone]: Please page [facility] Hospitalist for any issues. Subjective: Admit Date: 11/13/2024 PCP: Evi Guevara Room#: Z4-136/S5-560 Annamaria Villarreal is a 78 y.o. female [...] PLT [phone] BMP: Recent Labs 11/14/244 11/15/2450 11/16/24 0456 NA 139 144 142 K 3.6 3.3* 3.4* CL 105 107 105 CO2 21* 22* 23 BUN 32* 40* 47* CREATININE 1.37* 1.56* 1.65* GLUCOSE 248* 169* 165* CALCIUM 9.6 9.2 9.1 ANIONGAP 13 15* 14* LIVER PROFILE: No results for input(s): "AST", "ALT", "BILITOT", "ALKPHOS", "PROT" in the last 72 hours. No lab exists for component: LABALBU PT/INR: No results for input(s): "PROTIME", "INR" in the last 72 hours. CARDIAC ENZYMES: No results for input(s): "TROPONINI" in the last 72 hours. Procalcitonin: Lab Results Component Value Date PROCAL 0.08 (H) 11/15/2024 @[facility]TS[facility]CIALTY@ Objective: Vitals: BP 147/99 Pulse 97 Temp (!) 35.8 ?C (96.5 ?F) (Temporal) Resp 20 Ht 5' 5" (1.651 m) Wt 210 lb (95.3 kg) [...] dysphagia evaluation Possible discharge planning tomorrow to [facility] Discussed with geriatric service and increase gabapentin [...] Lasix # Route (more content not included)... [facility] 11-16-2024 Note Smoking cessation co unseling held due to patient status. [facility] 11-16-2024 Note PHYSICAL THERAPY [facility] Initial Evaluation Name/MRN: Carline Villarreal ([id number]) Evaluation Date: 11/16/2024 Date of : 1945 Admission Date: 11/13/2024 10:39 AM Age: 78 y.o. 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 [facility] 11-16-[address] [facility] Cardiology /Electrophysiology Progress Note HPI / Interval History: Carline Villarreal has a history of dementia, diabetes, HTN, stroke who presented to [facility] with SOB. Pro-BNP 6596, hs trop 12-124. [...] found for: TROPDELTBASE No results found for: "TROPHS3" No results found for: TROPDELTSEC Recent Labs 11/13/24 1056 11/14/24 0044 11/15/24 0550 11/16/24 0456 NA 141 139 144 142 K 3.6 3.6 3.3* 3.4* CL 105 105 107 105 CO2 20* 21* 22* 23 BUN 28* 32* 40* 47* CREATININE 1.41* 1.37* 1.56* 1.65* Recent Labs (more content not included)... [facility] 11-15-2024 Note Hospitalist Progress Note 11/15/[phone]: Please page me ([phone]) for patient care issues. [phone]: Please page [facility] Hospitalist for any issues. Subjective: Admit Date: 11/13/2024 PCP: Evi Guevara Room#: B4-339/B4-005 Annamaria Villarreal is a 78 y.o. female [...] PROT 6.8 PT/INR: No results for input(s): "PROTIME", "INR" in the last 72 hours. CARDIAC ENZYMES: No results for input(s): "TROPONINI" in the last 72 hours. Procalcitonin: Lab Results Component Value Date PROCAL 0.08 (H) 11/15/2024 @RISRSLTSPECIALTY@ Objective: Vitals: BP (!) 194/102 (BP Location: Right arm, Patient Position: Lying) Comment: aware given PRN beta liana etc, NNO at this itme Pulse 96 Temp 36.3 ?C (97.4 ?F) (Temporal) Resp 18 Ht 5' 5" (1.651 m) Wt 210 lb (95.3 kg) [...] MD Division of Hospitalist Medicine Inpatient Medical Services/[facility] [1] [2] busPIRone, 2.5 mg, Oral, BID DULoxetine (more content not included)... [facility] 11-15-[address] [facility] Cardiology /Electrophysiology Progress Note HPI / [...] found for: TROPDELTBASE No results found for: "TROPHS3" No results found for: TROPDELTSEC Recent Labs 11/13/24 1056 11/14/24 0044 11/15/24 0550 NA 141 139 144 K 3.6 3.6 3.3* CL 105 105 107 CO2 20* 21* 22* BUN 28* 32* 40* CREATININE 1.41* 1.37* 1.56* Recent Labs 11/13/24 1056 11/13/24 1532 11/02 (more content not included)... [facility] 11-15-2024 Note Palliative Care Prog ress Note Chief Complaint: Carline Villarreal is a 78 y.o. female with chief complaint of SOB Palliative care consulted for goals of care Palliative Care is actively following Assessment/Plan Goals of care Carline Villarreal lacks capacity for medical decision-making due to dementia and encephalopathy. -legal surrogate decision maker is sonRosas (Phone: [phone]) - patient has 2 children 1 son [...] they want patient to go back to [place] for PT/OT - Rosas stated that they [...] is a 78 y.o. female admitted to [facility] on 11/13 for SOB. Patient seen and examined this morning. Discussed with staff. Patient was calm , quiet this morning when seen. Son Rosas at bedside. Patient was AXOx2-3. Patient denied any complains. Said her SOB is better. Patient was requesting to be discharged back to [place]. Palliative Care Assessments: Goals of care: Go back to facility for PT/OT Advanced Directives: Health Care Power of Retail Clerk, DNR Functional Assessment: PPS 30% bedbound; can't do any work/extensive disease; total care; reduced intake; full or drowsy or confusion Prognosis: depends upon goals of care Spiritual Assessment: No spiritual distress identified Bereavement and Grief: To Be Determined PDMP/OARRS Reviewed: No Report Available Social history: Marital status: single Children: Unknown Living status: half-way Work history: Retired [place] status: No Episcopal david: Spiritism ROS: See palliative care ROS/ESAS below; Detail ROS unable to be obtained due to patient's mental status [place] Symptom Assessment Score [place] Score Pain Score (if non-verbal, add .FLACC below) 0 Tiredness Score 5 Nausea Score 0 Depression Score 0 Anxiety Score 0 Drowsiness Score 2 Anorexia Score (0= (more content not included)... [facility] 11-15-2024 Note OCCUPATIONAL THERAPY [facility] Initial Evaluation Name/MRN: Carline Villarreal ([id number]) Evaluation Date: 11/15/2024 Date of : 1945 Admission Date: 11/13/2024 10:39 AM Age: 78 y.o. Room[facility]: B4-466/[facility] A Discharge Recommendation: [facility] Facility Equipment Needed: No Assessment IMPRESSION: Pt [...] Bipolar disorder (HCC) 01/06/2019 Recurrent major depression ([facility]) 01/06/2019 Unilateral paralysis as late effect of cerebrovascular accident (CVA) ([facility]) 01/06/2019 Migraine headache 01/06/2019 Hypothyroid 01/06/2019 Gout 01/06/2019 Gastroesophageal reflux disease 01/06/2019 Dementia ([facility]) 01/06/2019 Obesity 01/06/2019 Psoriasis 01/06/2019 Cerebrovascular accident ([facility]) 07/19/2017 Anxiety 07/19/2017 HTN (hypertension) 07/19/2017 Hyperlipidemia [...] Responsibilities: Independent Receives Help From: None 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 Adela (more content not included)... [facility] 11-14-2024 Note Family Communication Number Called: [phone] Name of Designated Family Loss Prevention Manager: Rosas arredondo/ESEQUIELOA I left a HIPPA compliant message at the number listed above Family Loss Prevention Manager Updated on the Following: N/A [facility] 11-14-2024 Note [facility] T[facility] request. Await review and response regarding ability to accept. TCC notified. [facility] 11-14-2024 Note Hospitalist Progress Note Subjective: Admit Date: 11/13/2024 PCP: Evi Guevara Room#: B4-652/B4-017 A Chief Complaint Patient presents with Shortness [...] management in ED, troponin appears demand mediated. [place]se as a second language, well spoken with [...] PROT 6.8 PT/INR: No results for input(s): "PROTIME", "INR" in the last 72 hours. CARDIAC ENZYMES: No results for input(s): "TROPONINI" in the last 72 hours. Procalcitonin: Lab Results Component Value Date PROCAL 0.02 11/13/2024 COVID-19 PCR: No results for input(s): "COVID19" in the last 72 hours. Objective: Vitals: BP (!) 170/97 (BP Location: Right arm, Patient Position: Lying) Pulse 83 Temp 36.1 ?C (96.9 ?F) (Temporal) Resp 20 Ht 5' 5" (1.651 m) Wt 210 lb (95.3 kg) [...] As a result (more content not included)... [facility] 11-14-2024 Note Pharmacy to Dose Van comycin - Progress Note Recent Labs 11/13/24 1056 11/14/24 0044 BUN 28* 32* CREATININE 1.41* 1.37* Lab Results Component Value Date [facility] 16.8 11/14/2024 Doses, serum creatinine, and vancomycin levels interfaced automatically to ZhenXin and data has been analyzed and interpreted. [...] Cordero RPh Pharmacist Available via Secure Chat [facility] 11-13-2024 Note [facility] Respiratory Care Department Progress Note Comment [...] mind regarding wearing PAP to hit their "call light" or inform their nurse to contact Respiratory. A second, consecutive night of refusing PAP therapy/study results in order completion in the EMR. If future CPAP/BiPAP/AutoPAP therapy or study is indicated please place another order in the EMR and the assigned Respiratory Therapist will reattempt to fulfill orders. Thank you for involving Respiratory in the care of this patient, [facility] 11-13-2024 History and physical note Attending History [...] PROT 6.8 PT/INR: No results for input(s): "PROTIME", "INR" in the last 72 hours. CARDIAC ENZYMES: No results for input(s): "TROPONINI" in the last 72 hours. Procalcitonin: No results found for: "PROCAL" Urine Culture: No results found for this or any previous visit. COVID-19 PCR: No results for input(s): "COVID19" in the last 72 hours. I reviewed: [...] MD Division of Hospital Medicine Inpatient Medical Services/[facility] documented in this encounter [facility] 11-13-2024 Note Attending History an d [...] Rfl: hydroCHLOROthiazide (HYDRODi (more content not included)... [facility] 11-13-2024 Emergency department Note [facility] 4S eMERGENCY dEPARTMENT [...] by way of local EMS from a [facility] facility. Patient states she was coughing a lot today and became short of breath. longterm staff relayed that patient's pulse oximetry was [...] Abnormal Glucose 175 (*) Narrative: Performed by: [facility], [address] [address] CLIA ID: [id number] POCT GLUCOSE METER UNSOLICITED RESULTS - Abnormal Glucose 231 (*) Narrative: Performed by: [facility], [address] [address] CLIA ID: [id number] SARS-COV-2, FLU A/B, AND RSV COMBO - [...] In compliance with this authorization, please visit www.fda.gov/media/909573/download or www.fda.gov/media/785462/download to access the applicable information sheets. BLOOD [...] Procedure Abnormality Status --------- ------ Legionella and Streptoco...[[id number]] Urine Hold Cup[[id number]] Please view results for these tests on the individual orders. RESPIRATORY CULTURE AND STAIN LEGIONELLA AND STREPTOCOCCUS URINE ANTIGEN BASIC METABOLIC PANEL WITH MG REFLEX Narrative: The following orders were created for panel order Basic Metabolic Panel w/ Mg Reflex. Procedure Abnormality Status --------- ------ Basic metabolic panel[[id number]] Abnormal Final result Please view results for [...] kg (210 lb) Height: 1.651 m (5' 5") Medications aluminum & magnesium hydroxide-simethicone (Mylanta) 200-200-20 [...] mL (has no administration in time range) bgeumii-pcchmclnjvoxt-byodozab (Excedrin Migraine) 250-250-65 MG per tablet 2 tablet (2 tablets Oral Given 11/13/241837) busPIRone (Buspar) tablet 2.5 mg (2.5 mg Oral Given 11/14/24822) hydrALAZINE (Apresoline) tablet 25 mg (has no administration in time range) metoprolol tartrate (Lopressor) tablet 50 mg (50 mg Oral Given 11/14/24822) levothyroxine (Synthroid, Levoxyl) tablet 50 mcg (50 mcg Oral Given 11/14/2414) DULoxetine (Cymbalta) DR capsule 30 mg (30 [...] by way of local EMS from a [facility] facility where she was found to have new onset of coughing today associated with shortness of breath and hypoxia. She was given 2 DuoNeb aerosol treatments at the half-way and rescue squad arrived and put her [...] None. Patient currently resides in a local [facility] facility. ED diagnostics interpreted by me included [...] sepsis, or septic shock (If yes use ".sepsiscoremeasure"): No FINAL IMPRESSION 1. Pneumonia of both [...] specified. DISCHARGE MEDICATIONS: Current Discharge Medication List @[facility]([id number]:LAST:1)@ (Please note: Portions of this note were [...] MD 11/13/24 1551 documented in this encounter [facility] 11-13-2024 Note This is my DEIDRE super visory and shared visit note: I, Avi Peralta [...] 11/13/24 1520 Avi Peralta MD 11/13/24 1551 [facility] 08-18-2024 Instructions Angelina Trujillo PA-C - 08/18/2024 [...] Feverfew: Feverfew is a common garden herb hoopa to [place] and popular in [place] as a treatment for disorders typically controlled [...] pepperoni, Pickled romeo Pods of broad mcrae (East Timorese beans, Latvian pea pods, Botswanan (spenser) beans, costa and navy beans Ripe avocado, ripe banana Yeast extracts or active yeast preparations such as Zee's or Mali's (commercial bakes goods are permitted) Tomato based foods, pizza (lasagna, etc.) MSG (monosodium glutamate) is disguised as many things; look for these common aliases: Monopotassium glutamate Autolysed yeast Hydrolysed protein Sodium caseinate flavorings all natural preservatives" Nutrasweet Avoid all other foods that convincingly [...] much light. These can be obtained at [employer] or [employer]: see list above. 2. Limit use of acute treatments (yheu-oag-hlghiss medications, triptans, etc.) to no more than [...] and quiet environment. Relax and reduce stress. Jbtuits8Vzzvi is a free deidre that can instruct you on some simple relaxtion and breathing techniques. Http://[employer]CinaMaker is a free website that provides teaching [...] testing that will reveal this dysfunctional electrical circuitry" such on MRI, or other testing. We [...] headache flare prior to the 3 month alfonso is unlikely to change anything, and unfortunately [...] and will be handling your phone calls, Tidemarkt Messages and inquiries, if any. Unless explicitly told otherwise at the time of your office visit, your study results and ensuing treatment plans will be released via TimeLab and discussed during your follow-up appointment. MyChart: Please ask the schedulers to give you an activation code. The main way of communication is by TimeLab rather than phone lines, so if you have not signed up, please do so. Tidemarkt is also the way that you can review your labs and testing. We are not able to contact everyone to tell them results are normal. If you do not hear back from us regarding testing you have had, it should be considered normal or within normal range. If you have any questions about the results, you are free to message us. TimeLab is meant for simple questions regarding medications, possible side effects, or other simple straight forward questions in limited sentences, rather than multiple paragraphs of discussion. MyChart is not meant for, or efficient for [...] do not comment on most testing on [employer] in a message or commentary unless there [...] with this process. documented in this encounter [facility] 08-18-2024 Note HNO ID: [id number] Author: ANGELINA TRUJILLO PA-C Service: ? Author Type: Physician Combine Mechanic Type: Progress Notes Filed: 08/18/2024 14:20 Note Text: Neurology Outpatient Clinic Date: August 18, 2024 Patient Name: Carline Villarreal Referring physician: No referring provider defined for this encounter. Primary physician: none Reason for Evaluation: Headaches Subjective HPI Carline Villarreal is a 78 year old female who presents for evaluation of headache. Chart review: Seen on 12/16/23 for headache at [facility], lives in nursing facility. Noting hx of migraines. Hx of previous stroke in 2016 and some residual weakness left sided from this. On ASA and thinners. Last LDL was 58. Patient presents with her son and gwwgenps-ff-gpb for evaluation of worsening headaches. History is [...] lobe. * Poor visualization of the left PRODUCT FINISHER which is likely severely stenotic with poor [...] heat intolerance, no (more content not included)... [facility] 08-18-2024 History of Present illness Narrative Images [...] review: Seen on 12/16/23 for headache at [facility], lives in nursing facility. Noting hx of migraines. Hx of previous stroke in 2016 and some residual weakness left sided from this. On ASA and thinners. Last LDL was 58. Patient presents with her son and mvtzlrdo-oe-zze for evaluation of worsening headaches. History is [...] lobe. * Poor visualization of the left PRODUCT FINISHER which is likely severely stenotic with poor [...] status: Never Smokeless tobacco: Never Lives at half-way Objective 08/18/24 1325 BP: 145/77 Pulse: (!) [...] Normal, no fasciculations or tremors noted. Power: Marriage And Family Teacher strength is 4/5 on left hand MUSCLES [...] Reflexes Right Left Bicep / 2/4 BrRad / 2/4 Knee / NA Ankle /07/08 Coordination: finger-to- nose-finger intact bilaterally and rgfe-fv-wkbi intact bilaterally. Gait: not tested DATA REVIEWED [...] of worsening headaches. Patient lives at a half-way. Family notes that she has some baseline [...] which included preparing to see the patient, mdvb-fe-uwrn patient care, completing clinical documentation, obtaining and/or reviewing separately obtained history, performing a medically appropriate examination, counseling and educating the patient/family/caregiver, and ordering medications, tests, or procedures. Angelina Trujillo PA-C [facility] Neurology This document has been created with the use of voice recognition technology. It may contain inaccuracies: (e.g. misspellings, inaccurate syntax or word sense) that have escaped review. documented in this encounter [facility] 12-17-2023 Consult note Formatting of th is [...] neurology service or discontinuing the consult order. [facility] [employer] Work Phone: 12-17-2023 Consult note Formatting of [...] order. documented in this encounter [facility] 12-17-2023 Note Consults This note is [...] neurology service or discontinuing the consult order. [facility] 12-17-2023 Nurse Note Report called to [facility]. Transport setup for 1400. [facility] 12-17-2023 Nurse Note Report called to [facility]. Transport setup for 1400. Pt discharged back to [facility]. PIV removed from RFA, catheter intact, DSD applied. Tele monitor removed, cleaned per protocol & returned to drawer. documented in this encounter [facility] 12-17-2023 Nurse Note Pt discharged back to [facility]. PIV removed from RFA, catheter intact, DSD applied. Tele monitor removed, cleaned per protocol & returned to drawer. [facility] 12-17-2023 Note Formatting of this n ote might be different from the original. Discharge med list transmitted to [facility] via [facility] per TCC request. [facility] 12-17-2023 Note Formatting of this n ote might be different from the original. Discharge med list transmitted to [facility] via [facility] per TCC request. [facility] 12-17-2023 Miscellaneous Notes Discharge med list transmitted to [facility] via [facility] per TCC request. Spoke with patient about return to [facility] and she is in agreement with this. Spoke with Merle about report and they are able to accept patient back. She is detention there under her medicaid. Did update social research assistant and primary care nurse. Tasked [facility] to send dc packet to [facility]. . Dc back to [facility] this afternoon at 2:00. [employer] messaged the facility with dc time. Ambulance PCS form completed in Round Trip. Spoke with patients son Rosas to discuss transportation arrangements and the slate picker time. Nurse provided with report number. Referral placed to RETURN [facility] via [facility] per TCC request. Await review [...] - DO NOT do CPR, intubation] [_] [DNR-MANUAL EQUIPMENT MECHANIC - Comfort care only] [_] DNR form [...] with patient and/or family/surrogate. Bartolo Meehan MD [facility] 12/16/2023, 4:16 PM documented in this encounter [facility] 12-17-2023 Note Formatting of this n ote might be different from the original. Spoke with patient about return to [facility] and she is in agreement with this. Spoke with Merle about report and they are able to accept patient back. She is detention there under her medicaid. Did update social research assistant and primary care nurse. Tasked MANAGER ASSET to send dc packet to [facility]. . [facility] 12-17-2023 Note Formatting of this n ote might be different from the original. Spoke with patient about return to [facility] and she is in agreement with this. Spoke with [facility] about report and they are able to accept patient back. She is detention there under her medicaid. Did update social research assistant and primary care nurse. Tasked MANAGER ASSET to send dc packet to [facility]. . T [facility] 12-17-2023 Note Formatting of this n ote might be different from the original. Dc back to [facility] this afternoon at 2:00. [facility] messaged the facility with dc time. Ambulance PCS form completed in Round Trip. Spoke with patients ethan Pillai to discuss transportation arrangements and the slate picker time. Nurse provided with report number. T [facility] 12-17-2023 Note Formatting of this n ote might be different from the original. Dc back to [facility] this afternoon at 2:00. [facility] messaged the facility with dc time. Ambulance PCS form completed in Round [facility]. Spoke with patients ethan Pillai to discuss transportation arrangements and the slate picker time. Nurse provided with report number. [facility] 12-17-2023 Note OCCUPATIONAL THERAPY [facility] Initial Evaluation Name/MRN: Carline Villarreal ([id number]) Evaluation Date: 12/17/2023 Date of : 1945 Admission Date: 12/16/2023 1:05 PM Age: 77 y.o. Room[facility]Bed: [facility] A Discharge Recommendation: IP Rehab Assessment IMPRESSION: Pt admitted from [facility] 12/15 with HDEZ and weakness. CT demo [...] Place Social/Functional History Patient admitted from SNF. [facility] Assistive Equipment: front wheeled walker Prior Level [...] used: front wheeled walker Coordination: Impaired: LUE [facility] Sensation: Impaired: Pt with impaired light touch [...] place, gait belt (more content not included)... [facility] 12-17-2023 History of Present illness Narrative Images from the original note were not included. OCCUPATIONAL THERAPY [facility] Initial Evaluation Name/MRN: Carline Villarreal ([id number]) Evaluation Date: 12/17/2023 Date of : 1945 Admission Date: 12/16/2023 1:05 PM Age: 77 y.o. Room/Bed: B2-256/B2-256 A Discharge Recommendation: IP Rehab Assessment IMPRESSION: Pt admitted from [facility] 12/15 with HDEZ and weakness. CT demo [...] Place Social/Functional History Patient admitted from SNF. [facility] Assistive Equipment: front wheeled walker Prior Level [...] used: front wheeled walker Coordination: Impaired: LUE [facility] Sensation: Impaired: Pt with impaired light touch [...] Toileting Patient will complete toileting tasks at [facility]/standard toilet with min assist. Start: 12/17/23 Expected [...] of Care supervision is transferred to a [facility] Therapy Services Occupational Therapist. Goals and/or treatment plan was established in collaboration with patient/family/other representatives. Hospitalist Progress Note 12/17/2023 Subjective: Admit Date: 12/16/2023 PCP: Evi Guevara Room#: B2256/B2-699 A BRIEF HOSPITAL COURSE: Carline is a [...] <0.012 <0.012 Procalcitonin: No results found for: "PROCAL" COVID-19 PCR: No results for input(s): "COVID19" in the last 72 hours. Objective: Vitals: BP 146/74 (BP Location: Left arm, Patient Position: Lying) Pulse 68 Temp 37.4 C (99.3 F) (Temporal) Resp 18 Ht 5' 6" (1.676 m) Wt 205 lb 7.5 oz [...] problems/diagnoses: Left UE and LE paresthesia Intractable HDZE HTN urgency Stable chronic problems affecting care, [...] Meehan MD Division of Hospitalist Medicine Acute [facility] Images from the original note were not included. PHYSICAL THERAPY [facility] Initial Evaluation Name/MRN: Carline Villarreal ([id number]) Evaluation Date: 12/17/2023 Date of : 1945 Admission Date: 12/16/2023 1:05 PM Age: 77 y.o. Room/Bed: [facility]/[address] Discharge Recommendation: IP Rehab Other: TBD at discharge location Assessment IMPRESSION: [facility] with HDEZ and weakness. CT demo small acute infarcts R parietal lobe, also h/o CVA with residual L side weakness. At baseline is IND with [facility] reports walking ~1 block/day at ECF. She [...] normal Social/Functional History Patient admitted from SNF. [facility] Assistive Equipment: front wheeled walker Prior Level [...] Mobility Raw Score (No Stairs) : 9 [facility] Plan Pt would benefit from skilled acute [...] of Care supervision is transferred to a [facility] Therapy Services Physical Therapist. Goals and/or [...] <0.012 <0.012 Procalcitonin: No results found for: "PROCAL" COVID-19 PCR: No results for input(s): "COVID19" in the last 72 hours. Objective: Vitals: BP 146/74 (BP Location: Left arm, Patient Position: Lying) Pulse 68 Temp 37.4 C (99.3 F) (Temporal) Resp 18 Ht 5' 6" (1.676 m) Wt 205 lb 7.5 oz [...] she can be discharged back to the half-way. - Discussed with nurse and TCC during [...] Emergency Contact: Nicolette Ren Mobile Relation: Sister Lesly Dyer [facility] [place] - S2 12/17/23 8:16 AM Speech-Language Pathology Patient passed the Nursing Swallowing Screening and is on a Regular diet, Cardiac: Low fat, Low cholesterol. High Fiber, LEXI with Thin liquids. Completed speech orders as per stroke protocol. documented in this encounter [facility] 12-17-2023 Note Formatting of this n ote might be different from the original. Ref[facility]. Await review and response regarding ability to accept. TCC notified. [facility] 12-17-2023 Note Formatting of this n ote might be different from the original. Referral placed to RETURN [facility] via [facility] per TCC request. Await review and response regarding ability to accept. TCC notified. [facility] 12-17-2023 Note Referral placed to Sarah ARRIOLA [facility] via [facility] per TCC request. Await review and response regarding ability to accept. TCC notified. [facility] 12-17-2023 Note Hospitalist Discharg e Summary Carline [...] (99.3 ?F) (Temporal) Resp 18 Ht 5' 6" (1.676 m) Wt 205 lb 7.5 oz [...] as: Plavix DULo (more content not included)... [facility] 12-17-2023 Hospital course Narrative Images from the [...] (99.3 F) (Temporal) Resp 18 Ht 5' 6" (1.676 m) Wt 205 lb 7.5 oz [...] them with you. Recommended Follow-up: Evi Guevara [address] [facility] [id number] Schedule an appointment as soon as possible for a visit in 1 week(s) Hospital follow up Complexity of Follow up: [] Moderate Complexity: follow up within 7-14 calendar days (03958) [x] Severe Complexity: follow up within 7 calendar days ([id number]) Follow up Testing, Pending results or Referrals [...] Bartolo Meehan MD Division of Hospitalist Medicine [facility] 12/17/2023, 10:54 AM documented in this encounter [facility] 12-17-2023 Note Hospitalist Progress Note 12/17/2023 [...] <0.012 <0.012 Procalcitonin: No results found for: "PROCAL" COVID-19 PCR: No results for input(s): "COVID19" in the last 72 hours. Objective: Vitals: BP 146/74 (BP Location: Left arm, Patient Position: Lying) Pulse 68 Temp 37.4 ?C (99.3 ?F) (Temporal) Resp 18 Ht 5' 6" (1.676 m) Wt 205 lb 7.5 oz [...] new labs and (more content not included)... [facility] 12-17-2023 Note PHYSICAL THERAPY [facility] Initial Evaluation Name/MRN: Carline Villarreal ([id number]) Evaluation Date: 12/17/2023 Date of : 1945 Admission Date: 12/16/2023 1:05 PM Age: 77 y.o. Room/Bed: [facility] A Discharge Recommendation: IP Rehab Other: TBD at discharge location Assessment IMPRESSION: [facility] with HDEZ and weakness. CT [...] normal Social/Functional History [facility] Assistive Equipment: front wheeled walker Prior Level [...] Mobility Raw Score (No Stairs) : 9 [facility] Plan Pt would benefit from skilled acute PT services to address Strengthening, Balance Training, Functional Mobility Training, Endurance Training, Gait Tr (more content not included)... [facility] 12-17-2023 Note PA student Progress Note 12/17/2023 Subjective: Admit Date: [...] <0.012 <0.012 Procalcitonin: No results found for: "PROCAL" COVID-19 PCR: No results for input(s): "COVID19" in the last 72 hours. Objective: Vitals: BP 146/74 (BP Location: Left arm, Patient Position: Lying) Pulse 68 Temp 37.4 ?C (99.3 ?F) (Temporal) Resp 18 Ht 5' 6" (1.676 m) Wt 205 lb 7.5 oz [...] (each=1, panels co (more content not included)... [facility] 12-16-2023 Note Sinus bradycardia Abnormal R-wave progression, early transition No acute change compared to first previous EKG. Electronically Signed On 12-16-2023 22:33:18 EDT by [facility] 12-16-2023 Note Sinus bradycardia Abnormal R-wave progression, early transition No acute change compared to first previous EKG. Electronically Signed On 12-16-2023 22:33:18 EDT by [facility] 12-16-2023 Note IMPRESSION: Sinus bradycardia Abnormal R-wave progression, early transition No acute change compared to first previous EKG. Electronically Signed On 12-16-2023 22:33:18 EDT by [facility] 12-16-2023 Note Sinus bradycardia Abnormal R-wave progression, early transition Borderline repolarization abnormality Electronically Signed On 12-16-2023 21:17:50 EDT by [facility] 12-16-2023 Note Sinus bradycardia Abnormal R-wave progression, early transition Borderline repolarization abnormality Electronically Signed On 12-16-2023 21:17:50 EDT by [facility] 12-16-2023 Note IMPRESSION: Sinus bradycardia Abnormal R-wave progression, early transition Borderline repolarization abnormality Electronically Signed On 12-16-2023 21:17:50 EDT by [facility] 12-16-2023 Hospital Discharge instructions [...] and the need for follow-up with a physician/UNDERWATER HUNTER/[place] after discharge. Corina Crump RN on 12/16/23 [...] (99.3 F) (Temporal) Resp 18 Ht 5' 6" (1.676 m) Wt 205 lb 7.5 oz [...] assistance Toileting Minimal assistance Feeding Minimal assistance Etl Programmer Minimal assistance Med Delivery no Wound Care [...] Score: @READMISSIONRISKDETAILS@ Discharging to Facility/ Agency Name: [facility] Address:[address] [place] [address] Dialysis Facility (if applicable) Name: Address: Dialysis Schedule: Phone: Fax: Stopping Builder/Dough Puncher signature: ICIAN SECTION Prognosis: fair Condition at [...] sent through Care Everywhere.Generalized Weakness Discharge Instructions (East Timorese)Controlling Your Blood Pressure Through Lifestyle (East Timorese)Quitting Smoking (East Timorese)documented in this encounter [facility] 12-16-2023 History and physical note Attending [...] TROPONINI <0.012 Procalcitonin: No results found for: "PROCAL" Urine Culture: No results found for this or any previous visit. COVID-19 PCR: No results for input(s): "COVID19" in the last 72 hours. I reviewed: [...] Bartolo Meehan MD Division of Hospitalist Medicine [facility] 12-16-2023 Note Attending History an d [...] 95.6 RDW 13.3 (more content not included)... [facility] 12-16-2023 History and physical note Attending [...] TROPONINI <0.012 Procalcitonin: No results found for: "PROCAL" Urine Culture: No results found for this or any previous visit. COVID-19 PCR: No results for input(s): "COVID19" in the last 72 hours. I reviewed: [...] Bartolo Meehan MD Division of Hospitalist Medicine [facility] documented in this encounter [facility] 12-16-2023 Note Formatting of this n [...] - DO NOT do CPR, intubation] [_] [DNR-MANUAL EQUIPMENT MECHANIC - Comfort care only] [_] DNR form [...] with patient and/or family/surrogate. Bartolo Meehan MD [facility] 12/16/2023, 4:16 PM [facility] 12-16-2023 Note Formatting of this n ote [...] - DO NOT do CPR, intubation] [_] [DNR-MANUAL EQUIPMENT MECHANIC - Comfort care only] [_] DNR form [...] with patient and/or family/surrogate. Bartolo Meehan MD [facility] 12/16/2023, 4:[address] [facility] 12-16-2023 Emergency department Note Pt presents from [facility] with Left side numbness/tingliness/ Pt with hx of left side stroke. States symptoms started yesterday then went away and came back today. Pt with hx of migrains and dementia. Charlene Griggs RN 12/16/[address] [facility] 12-16-2023 Emergency department Note Pt presents from [facility] with Left side numbness/tingliness/ Pt with hx [...] lobe. * Poor visualization of the left PRODUCT FINISHER which is likely severely stenotic with poor [...] lobe. * Poor visualization of the left PRODUCT FINISHER which is likely severely stenotic with poor [...] Procedure Abnormality Status --------- ------ Comprehensive metabolic p...[[id number]] Abnormal Final result Please view results for [...] 1616 documented in this encounter [facility] 12-16-2023 Physician Emergency department Note EMERGENCY [...] lobe. * Poor visualization of the left PRODUCT FINISHER which is likely severely stenotic with poor [...] lobe. * Poor visualization of the left PRODUCT FINISHER which is likely severely stenotic with poor [...] Procedure Abnormality Status --------- ------ Comprehensive metabolic p...[[id number]] Abnormal Final result Please view results for [...] Emergency Medicine Provider Cameron Valencia DO 12/16/23 1464 Float: [place] Phone: Evaluation note No assessment inform ation available [facility] Work Phone: Evaluation note Diagnosis Left-sided weakness- Primary TIA (transient ischemic attack) Unspecified transient cerebral ischemia Left-sided weakness [facility] Diagnosis Intractable migraine without aura and without status migrainosus- Primary Migraine without aura, with intractable migraine, so stated, without mention of status migrainosus Worsening headaches Headache Weakness Other malaise and fatigue [facility] Acute exacerbation of chronic heart [...] as late effect of cerebrovascular accident (CVA) ([facility]) Bipolar affective disorder, remission status unspecified ([facility]) Controlled type 2 diabetes mellitus with diabetic nephropathy, unspecified whether marine oil terminal superintendent insulin use (HCC) Pneumonia of both lower lobes due to infectious organism Stage 3a chronic kidney disease (HCC) [facility] Diagnosis Chronic systolic heart failure (HCC)- Primary Chronic systolic heart failure Primary hypertension Unspecified essential hypertension Paroxysmal atrial fibrillation (HCC) Atrial fibrillation Elevated troponin Other abnormal blood chemistry Stage 3a chronic kidney disease (HCC) Hospital discharge follow-up Other follow-up examination documented [facility] this [facility] Name Dates Details Instructions not documented [id number] Work Phone: Reason for referral (narrative)No reason for referral information availableWOhioHealth Work Phone: Summary Purpose Family History No [...] Documents on File Type Date Recorded Patient Loss Prevention Manager Expl anation DNR (Do Not Resuscitate) 12/21/2023 9:18 AM DNR (Do Not Resuscitate) 11/21/2024 12:56 PM [place] DNR Form Date Activated Date Inactivated Comments 11/13/2024 3:07 PM 11/21/2024 7:32 PM Question Answer Comments ICU transfer: Yes Intubation: No Date Activated Date Inactivated Comments 12/16/2023 11:34 PM 12/16/2023 11:35 PM Question Answer Comments ICU transfer: Yes Intubation: No Date Activated Date Inactivated Comments 12/16/2023 4:16 PM 12/16/2023 11:34 PM Documents on File Type Date Recorded Patient Loss Prevention Manager Expl anation DNR (Do Not Resuscitate) 11/22/2024 10:33 AM DNR (Do Not Resuscitate) 12/21/2023 9:18 AM DNR (Do Not Resuscitate) 11/21/2024 12:56 PM [place] DNR Form Chief Complaint and Reason for Visit Chief Complaint CORRECTION LAB WOR K Chief Complaint CORRECTION LAB WOR K CORRECTION LABWORK LABWORK Chief Complaint CORRECTION LAB WOR K CORRECTION LABWORK LABWORK LABWORK Chief Complaint CORRECTION LAB WOR K CORRECTION LABWORK LABWORK CORRECTION LABWORK LABWORK Chief Complaint CORRECTION LAB WOR K CORRECTION LABWORK LABWORK CORRECTION LABWORK LABWORK CORRECTION LABWORK CORRECTION LABWORK Chief Complaint CORRECTION LAB WOR K CORRECTION LABWORK LABWORK CORRECTION LABWORK LABWORK CORRECTION LABWORK CORRECTION LABWORK CORRECTION LABWORK LABWORK Chief Complaint CORRECTION LAB WOR K CORRECTION LABWORK LABWORK CORRECTION LABWORK LABWORK CORRECTION LABWORK CORRECTION LABWORK CORRECTION LABWORK LABWORK LABWORK LABWORK Chief Complaint LABWORK CORRECTION LABWORK CORRECTION LABWORK CORRECTION LABWORK LABWORK LABWORK LABWORK CORRECTION LABWORK LABWORK Chief Complaint LABWORK LABWORK LABWORK CORRECTION LABWORK LABWORK LABWORK LABWORK Chief Complaint LABWORK LABWORK LABWORK CORRECTION LABWORK LABWORK LABWORK LABWORK LABWORK Chief Complaint LABWORK LABWORK CORRECTION LABWORK LABWORK LABWORK LABWORK LABWORK CORRECTION LAB WORK Chief Complaint Admit Date CORRECTION LAB WORK June 12, 2024 5:00am CORRECTION LAB WORK July 13, 2024 5:00am CORRECTION LAB WORK July 31, 2024 1:53pm LABWORK August 21, 2024 5:00am CORRECTION LAB WORK August 27 12:53am LABWORK August 30, 2024 5:10am Chief Complaint Admit Date CORRECTION LAB WORK July 13, 2024 5:00am CORRECTION LAB WORK July 31, 2024 1:53pm LABWORK August 21, 2024 5:00am CORRECTION LAB WORK August 27 12:53am LABWORK August 30, 2024 5:10am CORRECTION LAB WORK September 25, 2024 5 :00am Chief Complaint Admit Date CORRECTION LAB WORK February 06, 2025 3 :00am CORRECTION LAB WORK February 22, 2025 9:00pm CORRECTION LAB WORK March 01, 2025 5:00am CORRECTION LAB WORK March 29 7:15am Additional Source Comments INFORMATION SOURCE (unrecogn ized section and content) DATE CREATED AUTHOR 03/16/2018 [facility] DATE CREATED AUTHOR AUTHOR'S ORGANIZ ATION 10/31/2020 [facility] DATE CREATED AUTHOR AUTHOR'S ORGANIZ ATION 10/31/2020 [employer] DATE CREATED AUTHOR AUTHOR'S ORGANIZ ATION 05/21/2023 [facility] DATE CREATED AUTHOR AUTHOR'S ORGANIZ ATION 12/04/2024 [facility] DATE CREATED AUTHOR AUTHOR'S ORGANIZ ATION 02/11/2025 [facility] DATE CREATED AUTHOR AUTHOR'S ORGANIZ ATION 05/05/2025 [facility] Care Teams (unrecognized sec tion and content) Team Status: Inactive Member Role Status Dates Evi HACKETT Attending Provider Active Team Status: Active Member Role Status Dates Evi HACKETT Attending Provider Active Gamewell Operator Relationship Specialty Start Date End Date Evi Guevara [address] [place] [address] PCP - General Internal Medicine 12/16/23 Team [...] Team Status: Active Member Role Status Dates [facility] Attending Provider Active Start: August 27, 2024 Team Status: Active Member Role Status Dates Evi HACKETT Attending Provider Active Sta rt: August 30, 2024 Team Status: Inactive Member Role Status Dates Evi HACKETT Attending Provider Active Sta rt: August 30, 2024 End: August 30, 2024 Team Status: Inactive Member Role Status Dates [facility] Attending Provider Active Start: August 27, 2024 End: August 27, 2024 Team Status: Inactive Member Role Status Dates Evi HACKETT Attending Provider Active Sta rt: July 31, 2024 End: July 31, 2024 Evi HACKETT Referring Provider Active Sta rt: July 31, 2024 End: July 31, 2024 Team Status: Inactive Member Role Status Dates Evi HACKETT Attending Provider Active Sta rt: September 25, 2024 End: September 25, 2024 Gamewell Operator Relationship Specialty Start Date End Date Evi Guevara [address] [place] [address] [address] [place] [phone] PCP - General Internal Medicine 12/16/23 Gamewell Operator Relationship Specialty Start Date End Date Evi Guevara [address] [place] [address] Rd [address] [place] [phone] PCP - General Internal Medicine 12/16/23 Team Status: Active Member Role/Relationship Status Dates Evi HACKETT Attending physician Active St art: February 06, 2025 Team Status: Active Member Role/Relationship Status Dates Evi HACKETT Attending physician Active St art: February 22, 2025 Team Status: Inactive Member Role/Relationship Status Dates Evi HACKETT Attending physician Active St art: March 01, 2025 End: March 01, 2025 Team Status: Active Member Role/Relationship Status Dates Evi HACKETT Attending physician Active St art: March 29, 2025 Team Status: Active Member Role/Relationship Status Dates Evi HACKETT Attending physician Active St art: April 24, 2025 Goals (unrecognized section and content) Goals may [...] Left-sided weakness Procedures - Bartolo Meehan MD [address] [place] [address] [facility] [address] [place] [phone] Referral ID Status Reason Start Date Expiration Date Visits Re quested Visits Authorized [id number] 1 1 Reason Comments Consult Migraines Reason Comments Shortness of Breath Pt reports SOB from SNF. Per EMS pt was at 76% on RA on arrival. EMS states HX CHF and placed pt on BiPAP for transport to ED. Specialty Diagnoses / Procedures Referred By Christian t Referred To Contact Diagnoses Pulmonary congestion Hypercapnia Edema of extremities Acute kidney injury (nontraumatic) (CMS/HCC) (HCC) Acute electrocardiogram changes Pneumonia of both lower lobes due to infectious organism Congestive heart failure, unspecified HF chronicity, unspecified heart failure type (HCC) Procedures . Dominguez Franz MD [address] [place] [address] Phone: tel: fax: [facility] [address] [place] [address] Phone: tel: Referral ID Status Reason Start Date Expiration Date Visits Re quested Visits Authorized [id number] 1 1 Reason Comments Hospital Follow-up Congestive [...] administration. Do not crush, chew, or split. 164 (Given - Provider: Olive Peralta RN) 0833 (Given - Provider: Maria Eugenia Hickman, WEI) aspirin suppository 300 mg(Linked Group 1) 300 mg, Rectal, Daily, First dose on Liliya 12/16/23 at 1620, Do NOT administer if bleed present on follow up CT-Head and begin a minimum of 24 hours post tPA administration. Use suppository if NPO or failed swallow screen. 164 (See Alternative - Provider: Olive Peralta RN) 0833 (See Alternative - Provider: Maria Eugenia Hickman, WEI) atorvastatin (Lipitor) tablet 40 mg 40 mg, Oral, Nightly, First dose on Liliya 12/16/23 at 2100 2034 (Given - Provider: Sang Cotton RN) enoxaparin (Lovenox) syringe 40 mg 40 mg, SubCUTAneous, Every 24 hours scheduled (Daily), First dose on Liliya 12/16/23 at 1620, Indication of Use: Prophylaxis-DVT/PE, Indications: Prophylaxis of Venous Thromboembolism 1643 (Given - Provider: Olive Peralta RN) 0833 [...] Fluids Infusing)0833 (Given - Provider: Maria Eugenia Hickman RN) Continuous Medication Order 12/15/2023 12/16/2023 12/17/2023 sodium chloride 0.9 % infusion 50 mL/hr, IntraVENous, Continuous, Starting on Liliya 12/16/23 at 1315 1450 (New Bag - Provider: Olive Peralta RN) 0622 (Rate/Dose Verify - Provider: Sang [...] hours. 2034 (See Alternative - Provider: Sang Cotton, WEI) acetaminophen (Tylenol) tablet 650 mg(Linked Group 2) [...] every IV line use, Starting on Liliya 12/16/23 at 1310, For Line Patency: Peripheral IV [...] mg, Rectal, Daily, First dose on Liliya 6/13/24 at 1620, Do NOT administer if bleed [...] on Wed11/14/24 at 0900, Indications: Anxiety Disorder 56 (Given - Provider: Meka Pugh RN)2035 (Given - Provider: Tanja Alvarado RN) 922 (Given - Provider: Mary Lou Lake LPN)2056 (Given - Provider: Tanja Alvarado RN) 0855 (Given - Provider: Josey Jackson LPN) DULoxetine (Cymbalta) DR capsule 30 mg 30 mg, Oral, Daily, First dose on Wed11/14/24 at 0900, Do not crush or chew., Indications: Major Depressive Disorder 0855 (Given - Provider: Meka Pugh RN) 0924 [...] Pugh RN)1301 (Given - Provider: Meka Pugh RN)2036 (Given - Provider: Tanja Alvarado RN) 0923 (Given - Provider: Mary Lou Lake LPN)1404 (Given - Provider: Mary Lou Lake LPN)2056 (Given - Provider: Tanja Alvarado RN) 0854 [...] since Wed11/17/2024 at 1519 until manually unheld 0900 (Dose Auto Held - Provider: Ni Sam MD) 0900 (Dose Auto Held - Provider: Ni Sam MD) 0900 (Dose Auto Held - Provider: Ni Sam MD)192 (Unheld by provider - Provider: Automatic Discharge Provider) melatonin tablet 3 mg 3 mg, Oral, Nightly, First dose on Wed11/13/24 at 2100, Indications: Insomnia 2034 (Given - Provider: Tanja Avlarado RN) 2055 (Given - Provider: Tanja Alvarado [...] mEq (COMPLETED) 40 mEq, Oral, Once, On 11/19/24 at 1045, For 1 dose, Dissolve each [...] apply ET mix TID and PRN, leave MANAGER STORAGE 1246 (Given - Provider: Mary Lou Lake [...] from all sources in 24 hours. 021 (See Alternative - Provider: Mini Pineda RN)2034 (See Alternative - Provider: Tanja Alvarado RN) acetaminophen (Tylenol) tablet 650 mg(Linked Group 2) 650 mg, Oral, Every 6 hours PRN, mild pain (1-3), fever, For temp greater than 100.4 F (38 C), Starting on Wed11/13/24 at 1458, Maximum dose of acetaminophen is 4000 mg from all sources in 24 hours. 021 (Given - Provider: Mini Pineda RN)2034 (Given - Provider: Tanja Alvarado, WEI) aluminum & magnesium hydroxide-simethicone (Mylanta) 200-200-20 MG/5ML oral suspension 10 mL 10 mL, Oral, Every 4 hours PRN, indigestion, heartburn, Starting on Wed11/13/24 at 1801 [id number] (Excedrin Migraine) 250-250-65 MG per tablet 2 tablet 2 tablet, Oral, Every 8 hours PRN, headaches, Starting on Wed11/13/24 at 1542 0624 (Given - Provider: Mini Pineda RN) dextrose 5 % infusion 100 mL/hr, IntraVENous, [...] sedation for opioid reversal - MUST notify biomass production manager provider immediately after first dose, [...] apply ET mix TID and PRN, leave MANAGER STORAGE Linked Groups Order Group 1: Insulin Lispro [...] 350-400 10 Units Above 400 12 Units Group [...] 8 hours PRN, nausea, vomiting, Starting on 11/13/24 at 1458, 1st Line. If inadequate response within 60 minutes, proceed to next-line agent or contact provider if no further options ordered. Patient should allow tablet to dissolve on tongue. Do not remove from blister pack until just before administering. Or ondansetron (Zofran) injection 4 mgJump to med 4 mg, IntraVENous, Every 6 hours PRN, nausea, vomiting, Starting on 11/13/24 at 1458, 1st Line. Give IV if [...] or prosecute any alcohol or drug abuse patient.[facility] the event this information is protected by the Federal Confidentiality of Alcohol and Drug Abuse Patient Records regulations: The Federal rules restrict any use of the information to criminally investigate or prosecute any alcohol or drug abuse patient.[facility] FOR RECORDS PERTAINING TO PATIENTS WHO ARE [...] BE BASED ON THE PRIMARY CLINICAL RECORDS. [facility] [facility]. provides no warranty or guarantee of the accuracy or completeness of information in this document.
[2025-06-27 08:35] LABS: Hematocrit 42.5 % (37-47); Hemoglobin 14.0 g/dL (12.0-15.0); Mean Corp Hgb Conc 32.9 g/dL (32-36); Mean Corpuscular Volume 95.9 fL (81-99); Mean Platelet Vol. 11.2 fl (6.2-12.0); Platelet Count 216 K/mm3 (150-450); RBC Distribution Width CV 14.1 % (11.6-14.6); RBC Distribution Width SD 50.1 fl (35.1-43.9); Red Blood Count 4.43 M/mm3 (4.2-5.4); White Blood Count 7.3 K/mm3 (4.4-11.0)
[2025-06-27 09:03] LABS: AST(SGOT) 24 U/L (<=31); Alanine Aminotransfer ALT/SGPT 17 U/L (<=34); Albumin, Serum 3.9 g/dL (3.4-4.8); Alkaline Phosphatase 103 U/L (35-104); Anion Gap 13 (7-18); BUN 42 mg/dL (4-19); BUN/Creat Ratio 25.0 RATIO (10-20); Calcium,Total 9.4 mg/dL (7.6-11.0); Carbon Dioxide 20.6 mmol/L (20.0-29.0); Chloride 105 mmol/L (96-106); Cholesterol 179 mg/dL (<=200); Globulin 2.7 g/dL (2.2-4.2); Glucose 117 mg/dL (70-99); Low Density Lipoprotein Calc. 121 mg/dL; Potassium 4.4 mmol/L (3.5-5.1); Triglycerides 107 mg/dL; Very Low Density Lipoprotein 21 mg/dL (5-40); cholesterol:hdl ratio screen 4.65
== END ==
LOC: OLS.SANC 06:13
PROVIDERS: Referring Provider Internal Medicine; Visit Provider Internal Medicine
DX: E11.9 Type 2 diabetes mellitus without complications (principal); F03.90 Unspecified dementia, unspecified severity, without behavioral disturbance, psychotic disturbance, mood disturbance, and anxiety; I10 Essential (primary) hypertension; E78.5 Hyperlipidemia, unspecified; E03.9 Hypothyroidism, unspecified
CPT/HCPCS: 36415; 80053; 80061; 83036; 84443; 85027